=== PATIENT | female | born 1960 | race Caucasian/White ===

== ENCOUNTER 2016-09-21 13:50 | Inpatient (IN) | payer OTHER ==
[2016-09-21 16:44] VITALS: BMI 19.7
[2016-09-21 17:18] LABS: Glucose,Whole Blood 153 mg/dL (75-99)
[2016-09-21] MEDS ORDERED: INSULIN LISPRO (humaLOG) 300 UNIT/3 ML VIAL SQ SCH (17:30)
[2016-09-21] MEDS ORDERED: POLYETHYLENE GLYCOL 3350 17 GM POWD.PACK PO PRN (17:38)
[2016-09-21] MEDS ORDERED: SENNOSIDES 8.6 MG TAB PO PRN (17:38)
[2016-09-21] MEDS ORDERED: NITROGLYCERIN SL TABS 0.4 MG TAB SUBLINGUAL PRN (17:38)
[2016-09-21] MEDS ORDERED: ONDANSETRON 4 MG TAB PO PRN (17:38)
--- NOTE | 2016-09-21 17:50 | P.HPIM ---
History of Present Illness H&P Date: 09/21/16 Chief Complaint: Right foot ulcer with osteomyelitis Patient is a 56-year-old female with multiple medical problems including history of hypertension, hyperlipidemia, insulin-dependent diabetes mellitus, history of stroke with left sided hemiparesis and history of physical debility who developed an ulcer was cellulitis on her right foot on her fifth toe she was treated aggressively as outpatient by Dr. Mendez, Dr. Pappas, and Dr. Cadena however patient continued to have ulceration and suspected osteomyelitis at this time she is admitted to medical floor for IV antibiotic management and consultation was Dr. Mendez and Dr. Cadena patient may need amputation of her fifth toe on the right. Past Medical History Past Medical History: Chest Pain / Angina, Heart Failure, COPD, CVA/TIA, Diabetes Mellitus, Deep Vein Thrombosis (DVT), Eye Disorder, GERD/Reflux, Hyperlipidemia, Hypertension, Myocardial Infarction ([place]), Thyroid Disorder Additional Past Medical History / Comment(s): HX OF CVA X3 (LAST 11/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 [place] 2011. DVT RT AXILLA. RENAL FAILURE. LOW THYROID, PERIPHERAL NEUROPATHY HANDS & FEET. ANEMIA. HX OF DKA. USES W/ C. CONSTIPATION, ESOPHAGITIS. EPIGLOTITIS. HEADACHES SINCE CVA, uses a wheelchair. RETINOPATHY SHIVA EYES. HX RT TOE INFECTION, GANGRENE, HAD AMP. Last Myocardial Infarction Date:: 2011 History of Any Multi-Drug Resistant Organisms: MRSA Date of last positivie culture/infection: 02/17/2013 MDRO Source:: Right Foot Past Surgical History: Appendectomy, Section, Cholecystectomy, Heart Catheterization With Stent, Hysterectomy, Orthopedic Surgery Additional Past Surgical History / Comment(s): Amputation Rt 2ND Toe. C-S X3. EGD. Bronchoscopy. RT Arm Port Placed FOR AB RX; Removed. 6 CARDIAC STENTS. left shoulder bone removed Past Anesthesia/Blood Transfusion Reactions: No Reported Reaction Additional Past Anesthesia/Blood Transfusion Reaction / Comment(s): HX OF BLOOD TRANSFUSION- NO REACTION Date of Last Stent Placement:: July 2012 Past Psychological History: Anxiety, Bipolar, Depression Additional Psychological History / Comment(s): HER adult son lives with her. Smoking Status: Current every day smoker Past Alcohol Use History: None Reported Additional Past Alcohol Use History / Comment(s): SMOKED FOR 36 YRS. 1PPD. STARTED SMOKING AGE 18, QUIT NOVEMBER 2014, RECENTLY SMOKING. Past Drug Use History: None Reported - Past Family History Father Family Medical History: Unable to Obtain, Coronary Artery Disease (CAD), Diabetes Mellitus Mother Family Medical History: COPD Medications and Allergies Home Medications Medication Instructions Recorded Confirmed Type hydrALAZINE HCL [Apresoline] 50 mg PO TID 02/13/14 09/21/16 History Nitroglycerin Sl Tabs [Nitrostat] 0.4 mg SUBLINGUAL Q5M PRN 06/14/14 09/21/16 History Ferrous Sulfate [Feosol] 325 mg PO BID 12/07/14 09/21/16 History Lisinopril [Prinivil] 10 mg PO QAM 12/07/14 09/21/16 History Albuterol Inhaler [Ventolin Hfa 2 puff INHALATION RT-Q6H PRN 07/19/15 09/21/16 History Inhaler] Aspirin EC [Ecotrin] 81 mg PO DAILY 07/19/15 09/21/16 History Atorvastatin [Lipitor] 20 mg PO HS 07/19/15 09/21/16 History Citalopram Hydrobromide [CeleXA] 20 mg PO DAILY 07/19/15 09/21/16 History Famotidine [Pepcid] 20 mg PO BID-W/MEALS 07/19/15 09/21/16 History Insulin Lispro [humaLOG] 4 units SQ TID-W/MEALS 07/19/15 09/21/16 History Metoclopramide [Reglan] 5 mg PO AC-TID 07/19/15 09/21/16 History Valproic Acid [Depakene] 250 mg PO DAILY 07/19/15 09/21/16 History Vitamin B Complex 1 cap PO DAILY 07/19/15 09/21/16 History Budesonide-Formot 160-4.5 Mcg 2 puff INHALATION RT-BID 03/05/16 09/21/16 History [Symbicort 160-4.5 Mcg Inhaler] Ergocalciferol [Vitamin D2] 50,000 unit PO SA 03/05/16 09/21/16 History Insulin Glargine [Lantus] 15 unit SQ HS 03/05/16 09/21/16 History Ondansetron [Zofran] 4 mg PO DAILY PRN 08/28/16 09/21/16 History INSULIN LISPRO (HumaLOG) [humaLOG] See Protocol SQ TID-W/MEALS 09/07/16 History ALPRAZolam [Xanax] 0.5 mg PO TID PRN 09/21/16 09/21/16 History Ascorbic Acid [Vitamin C] 500 mg PO DAILY 09/21/16 09/21/16 History Folic Acid 0.8 mg PO DAILY 09/21/16 09/21/16 History HYDROcodone/APAP 7.5-325MG [[place] 1 tab PO TID PRN 09/21/16 09/21/16 History 7.5-325] Polyethylene Glycol 3350 [Miralax] 17 gm PO DAILY PRN 09/21/16 09/21/16 History Sennosides [Senna] 8.6 mg PO DAILY PRN 09/21/16 09/21/16 History Allergies Allergy/AdvReac Type Severity Reaction Status Date / Time Barbiturates Allergy Rash/Hives Verified 09/21/16 16:47 cephalexin monohydrate Allergy Rash/Hives Verified 09/21/16 16:47 [From Keflex] morphine Allergy Rash/Hives Verified 09/21/16 16:47 Penicillins Allergy Rash/Hives Verified 09/21/16 16:47 phenobarbital Allergy Swelling Verified 09/21/16 16:47 venom-honey bee Allergy Swelling Verified 09/21/16 16:47 [bee venom (honey bee)] amlodipine besylate AdvReac Vomiting Verified 09/21/16 16:47 [From Norvasc] Physical Exam Vitals: Intake and Output 09/21/16 09/21/16 09/21/16 06:59 14:59 22:59 Other: Weight 48.988 kg Patient Weight 09/22/16 06:59 Weight 48.988 kg In general patient is alert and oriented 3 in no apparent distress HEENT head normocephalic and atraumatic Neck is supple no JVD no goiter no lymphadenopathy Chest is clear to auscultation no crackles no wheezing Cardiac exam reveals regular heart sounds no gallops no murmurs Abdomen is soft nontender no organomegaly Extremity exam reveals mild edema with palpable peripheral pulses, there is a nonhealing ulcer on the right fifth Neurological examination reveals left side hemiparesis with spastic contraction in the left hand Results Labs: Abnormal Lab Results - Last 24 Hours (Table) 09/21/16 Range/Units 17:15 POC Glucose (mg/dL) 153 H (75-99) mg/dL Thrombosis Risk Factor Assmnt - Choose All That Apply Any of the Below Risk Factors Present?: Yes Each Factor Represents 1 point: Abnormal pulmonary function (COPD), Age 41-60 years, Medical pt on bed rest Other Risk Factors: Yes Each Risk Factor Represents 2 Points: Patient confined to bed Thrombosis Risk Factor Assessment Total Risk Factor Score: 5 Thrombosis Risk Factor Assessment Level: High Risk Assessment and Plan Plan: #1 right foot cellulitis was possible osteomyelitis with nonhealing ulcer at this time will start IV vancomycin, consultation with Dr. Mendez and Dr. Kristi Gleason initiated patient may need amputation of her right fifth toe #2 insulin-dependent diabetes mellitus at this time will check hemoglobin A1c will use insulin drip to assure good glucose control if needed #3 underlying history of hypertension well-controlled on current medications continue #4 underlying history of hyperlipidemia #5 underlying history of coronary artery disease stable at this time #6 previous history of right hemispheric stroke with left-sided hemiparesis At this time patient is admitted to medical floor started on IV vancomycin awaiting input from Dr. Mendez and Dr. Cadena
[2016-09-21] MEDS ORDERED: IV VANCOMYCIN PER PHARMACY 1 EACH MISC MISCELLANE PRN (17:51)
[2016-09-21] MEDS ORDERED: VANCOMYCIN 750 MG in SODIUM CHLORIDE 0.9% 250 ML IVPB ONE (18:30)
[2016-09-21 18:43] LABS: Basophils % (A) 1 %; CH 31.2; CHCM 31.7; Eosinophils # (A) 0.1 k/uL (0-0.7); Eosinophils % (A) 1 %; HCT 32.4 % (34.0-46.0); HDW 2.24; HGB 10.5 gm/dL (11.4-16.0); Luc # (Auto) 0.16; Luc % (Auto) 3; Lymphocytes # (A) 1.7 k/uL (1.0-4.8); Lymphocytes % (A) 29 %; MCHC 32.3 g/dL (31.0-37.0); MCV 98.9 fL (80.0-100.0); Mean Platelet Volume 7.4; Monocytes # (A) 0.4 k/uL (0-1.0); Monocytes % (A) 6 %; Neutrophils # (A) 3.4 k/uL (1.3-7.7); Neutrophils % (A) 60 %; RBC 3.28 m/uL (3.80-5.40); RDW 12.7 % (11.5-15.5); WBC 5.7 k/uL (3.8-10.6); WBC (Perox) 6.12
[2016-09-21 18:53] LABS: Calcium 9.7 mg/dL (8.4-10.2); Total Bilirubin 0.4 mg/dL (0.2-1.3); Total Protein 7.2 g/dL (6.3-8.2)
[2016-09-21 19:05] LABS: Potassium 6.4 mmol/L (3.5-5.1)
[2016-09-21] MEDS ORDERED: INSULIN REGULAR 100 UNIT/ML VIAL IV ONE (19:15)
[2016-09-21] MEDS ORDERED: SODIUM POLYSTYRENE SULFONATE 15 GM/60 ML BOTTLE PO STA (19:25)
[2016-09-21] MEDS ORDERED: DEXTROSE 50%-WATER 50 ML SYRINGE IVP STA (19:25)
[2016-09-21 19:46] LABS: Glucose,Whole Blood 497 mg/dL (75-99)
[2016-09-21 19:46] LABS: Glucose,Whole Blood 533 mg/dL (75-99)
[2016-09-21 20:46] LABS: Glucose,Whole Blood 482 mg/dL (75-99)
[2016-09-21] MEDS: ALBUTEROL NEBULIZED 2.5 MG/3 ML INHALATION PRN (21:04)
[2016-09-21] MEDS: SYMBICORT 160-4.5 MCG INHALER INHALATION SCH (21:04)
[2016-09-21] MEDS: FERROUS SULFATE 325 MG TAB PO SCH (21:48)
[2016-09-21] MEDS: ATORVASTATIN 20 MG TAB PO SCH (21:48)
[2016-09-21] MEDS: hydrALAZINE HCL 50 MG TAB PO SCH (21:48)
[2016-09-21 22:13] LABS: Hemoglobin A1C 9.6 % (4.2-6.1)
[2016-09-21 22:17] LABS: Glucose,Whole Blood 372 mg/dL (75-99)
[2016-09-21] MEDS: INSULIN REGULAR 100 UNIT in SODIUM CHLORIDE 0.9% 100 ML IV SCH (22:17)
[2016-09-21 22:52] LABS: Glucose,Whole Blood 359 mg/dL (75-99)
[2016-09-21 23:24] LABS: Glucose,Whole Blood 226 mg/dL (75-99)
[2016-09-22 00:36] LABS: Glucose,Whole Blood 73 mg/dL (75-99)
[2016-09-22 01:39] LABS: Glucose,Whole Blood 81 mg/dL (75-99)
[2016-09-22 02:51] LABS: Glucose,Whole Blood 137 mg/dL (75-99)
[2016-09-22 04:57] LABS: Glucose,Whole Blood 151 mg/dL (75-99)
[2016-09-22 06:31] LABS: Glucose,Whole Blood 134 mg/dL (75-99)
[2016-09-22] MEDS: SYMBICORT 160-4.5 MCG INHALER INHALATION SCH ×2 (07:28→20:41)
[2016-09-22] MEDS: ALBUTEROL NEBULIZED 2.5 MG/3 ML INHALATION PRN ×3 (07:28→20:41)
[2016-09-22] MEDS: LISINOPRIL 10 MG TAB PO SCH (08:00)
[2016-09-22] MEDS: FOLIC ACID 1 MG TAB PO SCH (08:00)
[2016-09-22] MEDS: hydrALAZINE HCL 50 MG TAB PO SCH ×3 (08:00→21:53)
[2016-09-22] MEDS: ASPIRIN 81 MG CHEW PO SCH (08:00)
[2016-09-22] MEDS: FAMOTIDINE 20 MG TAB PO SCH ×2 (08:00→17:27)
[2016-09-22] MEDS: ASCORBIC ACID 500 MG TAB PO SCH (08:00)
[2016-09-22] MEDS: FERROUS SULFATE 325 MG TAB PO SCH ×2 (08:00→20:37)
[2016-09-22] MEDS: CITALOPRAM HYDROBROMIDE 20 MG TAB PO SCH (08:00)
[2016-09-22] MEDS: VALPROIC ACID ORAL SOLN 250 MG/5 ML CUP PO SCH (08:00)
[2016-09-22] MEDS: METOCLOPRAMIDE 5 MG TAB PO SCH ×3 (08:01→17:27)
[2016-09-22 08:48] LABS: Glucose,Whole Blood 405 mg/dL (75-99)
[2016-09-22 08:58] LABS: Basophils % (A) 1 %; CH 30.9; CHCM 30.5; Eosinophils # (A) 0.1 k/uL (0-0.7); Eosinophils % (A) 1 %; HCT 32.8 % (34.0-46.0); HDW 2.11; Hypochromasia Slight; Luc # (Auto) 0.18; Luc % (Auto) 3; Lymphocytes # (A) 2.5 k/uL (1.0-4.8); Lymphocytes % (A) 38 %; MCH 31.1 pg (25.0-35.0); MCHC 30.5 g/dL (31.0-37.0); MCV 101.8 fL (80.0-100.0); Macrocytosis Slight; Mean Platelet Volume 7.8; Monocytes # (A) 0.3 k/uL (0-1.0); Monocytes % (A) 4 %; Neutrophils # (A) 3.5 k/uL (1.3-7.7); Neutrophils % (A) 54 %; RBC 3.22 m/uL (3.80-5.40); RDW 12.8 % (11.5-15.5); WBC 6.6 k/uL (3.8-10.6); WBC (Perox) 6.87
[2016-09-22 09:43] LABS: Glucose,Whole Blood 354 mg/dL (75-99)
[2016-09-22 09:45] LABS: ALT 27 U/L (9-52); AST 13 U/L (14-36); Alkaline Phosphatase 66 U/L (38-126); Anion Gap 8 mmol/L; Blood Urea Nitrogen 29 mg/dL (7-17); Calcium 9.1 mg/dL (8.4-10.2); Carbon Dioxide 22 mmol/L (22-30); Chloride 109 mmol/L (98-107); Glucose 349 mg/dL (74-99); Non-African American GFR(MDRD) 56 (>60 ml/min/1.73 sqM); Potassium 5.3 mmol/L (3.5-5.1); Sodium 139 mmol/L (137-145); Total Bilirubin 0.5 mg/dL (0.2-1.3); Total Protein 6.7 g/dL (6.3-8.2)
[2016-09-22 10:38] LABS: Glucose,Whole Blood 263 mg/dL (75-99)
[2016-09-22] MEDS ORDERED: VANCOMYCIN 750 MG in SODIUM CHLORIDE 0.9% 250 ML IVPB SCH ×2 (11:00→18:00)
[2016-09-22] MEDS ORDERED: IV FLUID CONTINUATION 1,000 ML IV ONE (11:02)
[2016-09-22 11:12] LABS: Glucose,Whole Blood 170 mg/dL (75-99)
[2016-09-22] MEDS ORDERED: ONDANSETRON 4 MG/2 ML VIAL IVP ONE (11:30)
[2016-09-22] MEDS ORDERED: fentaNYL (PF) 50 MCG/ML 2 ML AMP ONE (11:56)
[2016-09-22] MEDS ORDERED: PROPOFOL 10 MG/ML 20 ML VIAL IV ONE (11:56)
[2016-09-22] MEDS ORDERED: MIDAZOLAM 2 MG/2 ML VIAL ONE (11:56)
[2016-09-22 12:25] LABS: Glucose,Whole Blood 104 mg/dL (75-99)
[2016-09-22] MEDS ORDERED: SODIUM CHLORIDE 0.9% 50 ML with CLINDAMYCIN 900 MG IV ONE ×2 (12:26)
--- NOTE | 2016-09-22 13:19 | P.CONS ---
History of Present Illness - Reason for Consult Consult date: 09/22/16 Foot infection - History of Present Illness 56-year-old female with history of multiple medical troubles includes hypertension and diabetes mellitus type 2 is a history of extensive stroke with left-sided hemiparesis and remains under the care of family members and an aide for her ongoing care. She is not able to toilet herself. She has been a patient at the [facility] center and was last seen by Dr. Cadena. There was plan for amputation which was apparently scheduled for September 16 but because patient's blood sugar was 360, this was canceled. Patient has had ongoing problems with her right foot ulcer that is nonhealing and has been admitted to the hospital and started on vancomycin. Lab work showed a potassium of 6.4, BUN 35 and creatinine 1.2. Patient did receive dose of Kayexalate. White count was 5.7. Blood sugars were again elevated and as high as 497, currently 104. Patient has consult in place with Dr. Cadena with anticipation of amputation on this hospitalization. Patient is complaining of burning with urination for which a urinalysis and urine culture will be obtained. Review of Systems All systems: negative Constitutional: Denies chills, Denies fever Eyes: denies blurred vision, denies pain Ears, nose, mouth and throat: Denies headache, Denies sore throat Cardiovascular: Denies chest pain, Denies shortness of breath Respiratory: Denies cough Gastrointestinal: Denies abdominal pain, Denies diarrhea, Denies nausea, Denies vomiting Genitourinary: Reports dysuria, Denies hematuria Musculoskeletal: Denies myalgias Integumentary: Denies pruritus, Denies rash Neurological: Denies numbness, Denies weakness Psychiatric: Denies anxiety, Denies depression Endocrine: Denies fatigue, Denies weight change Past Medical History Past Medical History: Chest Pain / Angina, Heart Failure, COPD, CVA/TIA, Diabetes Mellitus, Deep Vein Thrombosis (DVT), Eye Disorder, GERD/Reflux, Hyperlipidemia, Hypertension, Myocardial Infarction ([place]), Thyroid Disorder Additional Past Medical History / Comment(s): HX OF CVA X3 (LAST 11/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 [place] 2011. DVT RT AXILLA. RENAL FAILURE. LOW THYROID, PERIPHERAL NEUROPATHY HANDS & FEET. ANEMIA. HX OF DKA. USES W/ C. CONSTIPATION, ESOPHAGITIS. EPIGLOTITIS. HEADACHES SINCE CVA, uses a wheelchair. RETINOPATHY SHIVA EYES. HX RT TOE INFECTION, GANGRENE, HAD AMP. Last Myocardial Infarction Date:: 2011 History of Any Multi-Drug Resistant Organisms: MRSA Year Discovered:: 02/17/2013 MDRO Source:: Right Foot Past Surgical History: Appendectomy, Section, Cholecystectomy, Heart Catheterization With Stent, Hysterectomy, Orthopedic Surgery Additional Past Surgical History / Comment(s): Amputation Rt 2ND Toe. C-S X3. EGD. Bronchoscopy. RT Arm Port Placed FOR AB RX; Removed. 6 CARDIAC STENTS. left shoulder bone removed Past Anesthesia/Blood Transfusion Reactions: No Reported Reaction Additional Past Anesthesia/Blood Transfusion Reaction / Comm: HX OF BLOOD TRANSFUSION- NO REACTION Date of Last Stent Placement:: July 2012 Past Psychological History: Anxiety, Bipolar, Depression Additional Psychological History / Comment(s): HER adult son lives with her. Smoking Status: Current every day smoker Past Alcohol Use History: None Reported Additional Past Alcohol Use History / Comment(s): SMOKED FOR 36 YRS. 1PPD. STARTED SMOKING AGE 18, QUIT NOVEMBER 2014, RECENTLY SMOKING. Past Drug Use History: None Reported - Past Family History Father Family Medical History: Unable to Obtain, Coronary Artery Disease (CAD), Diabetes Mellitus Mother Family Medical History: COPD Medications and Allergies Home Medications Medication Instructions Recorded Confirmed Type hydrALAZINE HCL [Apresoline] 50 mg PO TID 02/13/14 09/21/16 History Nitroglycerin Sl Tabs [Nitrostat] 0.4 mg SUBLINGUAL Q5M PRN 06/14/14 09/21/16 History Ferrous Sulfate [Feosol] 325 mg PO BID 12/07/14 09/21/16 History Lisinopril [Prinivil] 10 mg PO QAM 12/07/14 09/21/16 History Albuterol Inhaler [Ventolin Hfa 2 puff INHALATION RT-Q6H PRN 07/19/15 09/21/16 History Inhaler] Aspirin EC [Ecotrin] 81 mg PO DAILY 07/19/15 09/21/16 History Atorvastatin [Lipitor] 20 mg PO HS 07/19/15 09/21/16 History Citalopram Hydrobromide [CeleXA] 20 mg PO DAILY 07/19/15 09/21/16 History Famotidine [Pepcid] 20 mg PO BID-W/MEALS 07/19/15 09/21/16 History Insulin Lispro [humaLOG] 4 units SQ TID-W/MEALS 07/19/15 09/21/16 History Metoclopramide [Reglan] 5 mg PO AC-TID 07/19/15 09/21/16 History Valproic Acid [Depakene] 250 mg PO DAILY 07/19/15 09/21/16 History Vitamin B Complex 1 cap PO DAILY 07/19/15 09/21/16 History Budesonide-Formot 160-4.5 Mcg 2 puff INHALATION RT-BID 03/05/16 09/21/16 History [Symbicort 160-4.5 Mcg Inhaler] Ergocalciferol [Vitamin D2] 50,000 unit PO SA 03/05/16 09/21/16 History Insulin Glargine [Lantus] 15 unit SQ HS 03/05/16 09/21/16 History Ondansetron [Zofran] 4 mg PO DAILY PRN 08/28/16 09/21/16 History INSULIN LISPRO (HumaLOG) [humaLOG] See Protocol SQ TID-W/MEALS 09/07/16 History ALPRAZolam [Xanax] 0.5 mg PO TID PRN 09/21/16 09/21/16 History Ascorbic Acid [Vitamin C] 500 mg PO DAILY 09/21/16 09/21/16 History Folic Acid 0.8 mg PO DAILY 09/21/16 09/21/16 History HYDROcodone/APAP 7.5-325MG [[place] 1 tab PO TID PRN 09/21/16 09/21/16 History 7.5-325] Polyethylene Glycol 3350 [Miralax] 17 gm PO DAILY PRN 09/21/16 09/21/16 History Sennosides [Senna] 8.6 mg PO DAILY PRN 09/21/16 09/21/16 History Allergies Allergy/AdvReac Type Severity Reaction Status Date / Time Barbiturates Allergy Rash/Hives Verified 09/21/16 16:47 cephalexin monohydrate Allergy Rash/Hives Verified 09/21/16 16:47 [From Keflex] morphine Allergy Rash/Hives Verified 09/21/16 16:47 Penicillins Allergy Rash/Hives Verified 09/21/16 16:47 phenobarbital Allergy Swelling Verified 09/21/16 16:47 venom-honey bee Allergy Swelling Verified 09/21/16 16:47 [bee venom (honey bee)] amlodipine besylate AdvReac Vomiting Verified 09/21/16 16:47 [From [facility]] Physical Exam Vitals: Vital Signs Temp Pulse Pulse Pulse Resp BP Pulse Ox 09/22/16 07:38 78 09/22/16 07:28 78 09/22/16 07:00 98.2 F 82 14 153/80 96 09/21/16 23:00 99.1 F 71 14 114/64 93 L 09/21/16 21:47 80 129/74 09/21/16 21:13 88 09/21/16 21:05 84 09/21/16 18:40 99.1 F 77 16 135/66 98 Intake and Output 09/21/16 09/22/16 09/22/16 22:59 06:59 14:59 Intake Total 14.567 18.633 Balance 14.567 18.633 Intake: Intake, IV Titration 14.567 18.633 Amount Insulin Regular 100 unit 14.567 18.633 In Sodium Chloride 0.9% 100 ml @ Titrate IV .[facility]M [facility] Rx#:[id number] Other: Voiding Method Diaper Incontinent # Voids 3 3 # Bowel Movements 2 Weight 48.988 kg Gen: This is a 56-year-old female. She is sitting up in bed and appears to be in no acute distress. HEENT: Head is atraumatic, normocephalic. Pupils equal, round. Sclerae is anicteric. Conjunctiva pink. Mucous membranes of the mouth are slightly dry. No thrush. Poor dentition. NECK: Supple. No JVD. No lymphadenopathy. No thyromegaly. LUNGS: Clear to auscultation. No wheezes or rhonchi. No intercostal retractions. HEART: Regular rate and rhythm. No murmur. ABDOMEN: Soft. Bowel sounds are present. No masses. No tenderness. EXTREMITIES: No pedal edema. No calf tenderness. Dorsalis pedis +2 bilaterally. Ulceration right foot. NEUROLOGICAL: Patient is awake, alert and oriented x3. Noted difficulty with speech but easy to understand. Results Results: Laboratory Results WBC 6.6 k/uL (3.8-10.6) 09/22/16 08:22 RBC 3.22 m/uL (3.80-5.40) L 09/22/16 08:22 Hgb 10.0 gm/dL (11.4-16.0) L 09/22/16 08:22 Hct 32.8 % (34.0-46.0) L 09/22/16 08:22 MCV 101.8 fL (80.0-100.0) H 09/22/16 08:22 MCH 31.1 pg (25.0-35.0) 09/22/16 08: MCHC 30.5 g/dL (31.0-37.0) L 09/22/16 08:22 RDW 12.8 % (11.5-15.5) 09/22/16 08:22 Plt Count 207 k/uL (150-450) 09/22/16 08:22 Neutrophils % 54 % 09/22/16 08:22 Lymphocytes % 38 % 09/22/16 08:22 Monocytes % 4 % 09/22/16 08:22 Eosinophils % 1 % 09/22/16 08:22 Basophils % 1 % 09/22/16 08:22 Neutrophils # 3.5 k/uL (1.3-7.7) 09/22/16 08:22 Lymphocytes # 2.5 k/uL (1.0-4.8) 09/22/16 08:22 Monocytes # 0.3 k/uL (0-1.0) 09/22/16 08:22 Eosinophils # 0.1 k/uL (0-0.7) 09/22/16 08:22 Basophils # 0.0 k/uL (0-0.2) 09/22/16 08:22 Hypochromasia Slight 09/22/16 08:22 Macrocytosis Slight 09/22/16 08:22 Sodium 139 mmol/L (137-145) 09/22/16 08:22 Potassium 5.3 mmol/L (3.5-5.1) H 09/22/16 08:22 Chloride 109 mmol/L (98-107) H 09/22/16 08:22 Carbon Dioxide 22 mmol/L (22-30) 09/22/16 08:22 Anion Gap 8 mmol/L 09/22/16 08:22 BUN 29 mg/dL (7-17) H 09/22/16 08:22 Creatinine 1.02 mg/dL (0.52-1.04) 09/22/16 08:22 Est GFR (MDRD) Af Amer >60 (>60 ml/min/1.73 sqM) 09/22/16 08:22 Est GFR (MDRD) Non-Af 56 (>60 ml/min/1.73 sqM) 09/22/16 08:22 Glucose 349 mg/dL (74-99) H 09/22/16 08:22 POC Glucose (mg/dL) 104 mg/dL (75-99) H 09/22/16 12:20 POC Glu Maintenance Pipefitter ALEX Aide Blank 09/22/16 12:[address] Glu mg/dL 229 mg/dL 09/21/16 18:12 Hemoglobin A1c 9.6 % (4.2-6.1) H 09/21/16 18:12 Calcium 9.1 mg/dL (8.4-10.2) 09/22/16 08:22 Total Bilirubin 0.5 mg/dL (0.2-1.3) 09/22/16 08:22 AST 13 U/L (14-36) L 09/22/16 08:22 ALT 27 U/L (9-52) 09/22/16 08:22 Alkaline Phosphatase 66 U/L (38-126) 09/22/16 08:22 Total Protein 6.7 g/dL (6.3-8.2) 09/22/16 08:22 Albumin 3.6 g/dL (3.5-5.0) 09/22/16 08:22 CBC & Chem 7: 09/22/16 08:22 09/22/16 08:22 Labs: Abnormal Lab Results - Last 24 Hours (Table) 09/21/16 09/21/16 09/21/16 Range/Units 17:15 18:12 18:12 RBC 3.28 L (3.80-5.40) m/uL Hgb 10.5 L (11.4-16.0) gm/dL Hct 32.4 L (34.0-46.0) % Potassium 6.4 H* (3.5-5.1) mmol/L Chloride 108 H (98-107) mmol/L BUN 35 H (7-17) mg/dL Creatinine 1.20 H (0.52-1.04) mg/dL Glucose 286 H (74-99) mg/dL POC Glucose (mg/dL) 153 H (75-99) mg/dL Hemoglobin A1c (4.2-6.1) % 09/21/16 09/21/16 09/21/16 Range/Units 18:12 19:43 19:45 RBC (3.80-5.40) m/uL Hgb (11.4-16.0) gm/dL Hct (34.0-46.0) % Potassium (3.5-5.1) mmol/L Chloride (98-107) mmol/L BUN (7-17) mg/dL Creatinine (0.52-1.04) mg/dL Glucose (74-99) mg/dL POC Glucose (mg/dL) 533 H 497 H (75-99) mg/dL Hemoglobin A1c 9.6 H (4.2-6.1) % 09/21/16 09/21/16 09/21/16 Range/Units 20:44 22:16 22:50 RBC (3.80-5.40) m/uL Hgb (11.4-16.0) gm/dL Hct (34.0-46.0) % Potassium (3.5-5.1) mmol/L Chloride (98-107) mmol/L BUN (7-17) mg/dL Creatinine (0.52-1.04) mg/dL Glucose (74-99) mg/dL POC Glucose (mg/dL) 482 H 372 H 359 H (75-99) mg/dL Hemoglobin A1c (4.2-6.1) % 09/21/16 09/22/16 09/22/16 Range/Units 23:23 00:35 02:39 RBC (3.80-5.40) m/uL Hgb (11.4-16.0) gm/dL Hct (34.0-46.0) % Potassium (3.5-5.1) mmol/L Chloride (98-107) mmol/L BUN (7-17) mg/dL Creatinine (0.52-1.04) mg/dL Glucose (74-99) mg/dL POC Glucose (mg/dL) 226 H 73 L 137 H (75-99) mg/dL Hemoglobin A1c (4.2-6.1) % 09/22/16 09/22/16 Range/Units 04:45 06:27 RBC (3.80-5.40) m/uL Hgb (11.4-16.0) gm/dL Hct (34.0-46.0) % Potassium (3.5-5.1) mmol/L Chloride (98-107) mmol/L BUN (7-17) mg/dL Creatinine (0.52-1.04) mg/dL Glucose (74-99) mg/dL POC Glucose (mg/dL) 151 H 134 H (75-99) mg/dL Hemoglobin A1c (4.2-6.1) % Assessment and Plan Plan: This is a 56-year-old female with had a nonhealing diabetic ulcer to the right foot with uncontrolled blood sugars and hemoglobin A1c of 9.6. Patient is currently on vancomycin which will be continued. Dr. Cadena is on consult for amputation. Continue supportive care. Further recommendations as patient progresses. The above dictated assessment and findings were discussed with Dr. Mendez. The impression and plan of care have been directed as dictated. Lois Gibbs nurse practitioner acting as scribe for Dr. Mendez.
[2016-09-22 13:30] LABS: Glucose,Whole Blood 105 mg/dL (75-99)
[2016-09-22] MEDS: B COMPLEX-VIT C-VIT E-ZINC 1 EACH TAB PO SCH (14:09)
--- NOTE | 2016-09-22 14:22 | P.CON ---
Consult Note - . Consult date: 09/22/16 Assessment/Plan:: This 56-year-old woman has a and exposed bone in the fifth toe right foot. This is a nonhealing ulcer with osteomyelitis. Please refer to consultation an [facility] from [facility]. We discussed with the patient in detail options for therapy. She wishes to proceed with amputation of the fifth toe right foot.
--- NOTE | 2016-09-22 14:25 | P.PCN ---
Date of Procedure: 09/22/16 Preoperative Diagnosis: [place] grade 3 ulceration right fifth toe secondary to bone exposure. Postoperative Diagnosis: Same Procedure(s) Performed: Amputation of the right fifth toe through proximal phalanx Anesthesia: MAC Surgeon: Himanshu Cadena Estimated Blood Loss (ml): 25 Pathology: none sent Condition: stable Disposition: PACU Indications for Procedure: Patient has had a refractory ulcer on the medial right great toe. She has bone of the distal portion of the proximal phalanx exposed. Operative Findings: The proximal tissues appeared healthy. The area of infection of the bone was very isolated to the area of the ulceration. Description of Procedure: With the patient supine position, under benefit of IV sedation, we prepped and draped in standard fashion. We made an incision leaving a large lateral flap and excising the bony portion of the right fifth toe staying close to the bone on the lateral aspect. The middle and distal phalanx were removed by excision. The proximal phalanx was removed except for its proximal head using a rongeur. There was good bleeding from the edges. Hemostasis was accomplished with pressure. The wound was irrigated and closed with interrupted nylon. Sterile dressings were applied. The patient tolerated the procedure well.
[2016-09-22 15:01] LABS: Glucose,Whole Blood 360 mg/dL (75-99)
[2016-09-22 16:58] LABS: Glucose,Whole Blood 337 mg/dL (75-99)
[2016-09-22] MEDS: HYDROcodone/APAP 7.5-325MG 1 EACH TAB PO PRN (17:26)
[2016-09-22] MEDS: INSULIN REGULAR 100 UNIT in SODIUM CHLORIDE 0.9% 100 ML IV SCH (17:27)
--- NOTE | 2016-09-22 18:00 | P.PN ---
Subjective Principal diagnosis: right fifth toe osteomyelitis patient is a 56-year-old female was known history of insulin-dependent diabetes mellitus and previous history of stroke with left sided sidney-paresis who was admitted to [facility] due to right foot cellulitis with evidence of osteomyelitis on the right fifth toe patient was evaluated by Dr. Cadena and underwent amputation of the right fifth toe is maintained on IV antibiotic vancomycin consultation for Dr. Mendez was also initiated. Patient has insulin-dependent diabetes mellitus her glucose was not well controlled currently she is maintained on insulin drip Clinically patient is doing better she is complaining of mild pain in her right foot otherwise she denies any complaints Objective - Vital Signs Vital signs: Vital Signs Temp 99.4 F 09/22/16 12:34 Pulse 68 09/22/16 16:46 Resp 16 09/22/16 13:34 BP 135/66 09/22/16 13:34 Pulse Ox 100 09/22/16 13:34 Intake & Output 09/21/16 09/22/16 09/22/16 18:59 06:59 18:59 Intake Total 33.200 565.50 Output Total 27 Balance 33.200 538.50 Weight 48.988 kg 48.988 kg Intake: IV 506 Intake, IV Titration 33.200 59.50 Amount Insulin Regular 100 unit 33.200 59.50 In Sodium Chloride 0.9% 100 ml @ Titrate IV .Q0M [facility] Rx#:[id number] Output: Urine 2 Estimated Blood Loss 25 Other: Voiding Method Diaper Diaper Incontinent Incontinent # Voids 3 # Bowel Movements 2 2 - Exam in general patient is alert and oriented in no apparent distress HEENT head normocephalic and atraumatic Neck is supple no JVD no goiter no lymphadenopathy Chest is clear to auscultation no wheezing Cardiac exam reveals regular heart sounds no murmurs Abdomen is soft nontender no organomegaly Extremity exam reveals minimal edema - Labs CBC & Chem 7: 09/22/16 08:22 09/22/16 08:22 Labs: Abnormal Lab Results - Last 24 Hours (Table) 09/21/16 09/21/16 09/21/16 Range/Units 18:12 18:12 18:12 RBC 3.28 L (3.80-5.40) m/uL Hgb 10.5 L (11.4-16.0) gm/dL Hct 32.4 L (34.0-46.0) % MCV (80.0-100.0) fL MCHC (31.0-37.0) g/dL Potassium 6.4 H* (3.5-5.1) mmol/L Chloride 108 H (98-107) mmol/L BUN 35 H (7-17) mg/dL Creatinine 1.20 H (0.52-1.04) mg/dL Glucose 286 H (74-99) mg/dL POC Glucose (mg/dL) (75-99) mg/dL Hemoglobin A1c 9.6 H (4.2-6.1) % AST (14-36) U/L 09/21/16 09/21/16 09/21/16 Range/Units 19:43 19:45 20:44 RBC (3.80-5.40) m/uL Hgb (11.4-16.0) gm/dL Hct (34.0-46.0) % MCV (80.0-100.0) fL MCHC (31.0-37.0) g/dL Potassium (3.5-5.1) mmol/L Chloride (98-107) mmol/L BUN (7-17) mg/dL Creatinine (0.52-1.04) mg/dL Glucose (74-99) mg/dL POC Glucose (mg/dL) 533 H 497 H 482 H (75-99) mg/dL Hemoglobin A1c (4.2-6.1) % AST (14-36) U/L 09/21/16 09/21/16 09/21/16 Range/Units 22:16 22:50 23:23 RBC (3.80-5.40) m/uL Hgb (11.4-16.0) gm/dL Hct (34.0-46.0) % MCV (80.0-100.0) fL MCHC (31.0-37.0) g/dL Potassium (3.5-5.1) mmol/L Chloride (98-107) mmol/L BUN (7-17) mg/dL Creatinine (0.52-1.04) mg/dL Glucose (74-99) mg/dL POC Glucose (mg/dL) 372 H 359 H 226 H (75-99) mg/dL Hemoglobin A1c (4.2-6.1) % AST (14-36) U/L 09/22/16 09/22/16 09/22/16 Range/Units 00:35 02:39 04:45 RBC (3.80-5.40) m/uL Hgb (11.4-16.0) gm/dL Hct (34.0-46.0) % MCV (80.0-100.0) fL MCHC (31.0-37.0) g/dL Potassium (3.5-5.1) mmol/L Chloride (98-107) mmol/L BUN (7-17) mg/dL Creatinine (0.52-1.04) mg/dL Glucose (74-99) mg/dL POC Glucose (mg/dL) 73 L 137 H 151 H (75-99) mg/dL Hemoglobin A1c (4.2-6.1) % AST (14-36) U/L 09/22/16 09/22/16 09/22/16 Range/Units 06:27 08:22 08:22 RBC 3.22 L (3.80-5.40) m/uL Hgb 10.0 L (11.4-16.0) gm/dL Hct 32.8 L (34.0-46.0) % MCV 101.8 H (80.0-100.0) fL MCHC 30.5 L (31.0-37.0) g/dL Potassium 5.3 H (3.5-5.1) mmol/L Chloride 109 H (98-107) mmol/L BUN 29 H (7-17) mg/dL Creatinine (0.52-1.04) mg/dL Glucose 349 H (74-99) mg/dL POC Glucose (mg/dL) 134 H (75-99) mg/dL Hemoglobin A1c (4.2-6.1) % AST 13 L (14-36) U/L 09/22/16 09/22/16 09/22/16 Range/Units 08:46 09:40 10:28 RBC (3.80-5.40) m/uL Hgb (11.4-16.0) gm/dL Hct (34.0-46.0) % MCV (80.0-100.0) fL MCHC (31.0-37.0) g/dL Potassium (3.5-5.1) mmol/L Chloride (98-107) mmol/L BUN (7-17) mg/dL Creatinine (0.52-1.04) mg/dL Glucose (74-99) mg/dL POC Glucose (mg/dL) 405 H 354 H 263 H (75-99) mg/dL Hemoglobin A1c (4.2-6.1) % AST (14-36) U/L 09/22/16 09/22/16 09/22/16 Range/Units 11:11 12:20 13:27 RBC (3.80-5.40) m/uL Hgb (11.4-16.0) gm/dL Hct (34.0-46.0) % MCV (80.0-100.0) fL MCHC (31.0-37.0) g/dL Potassium (3.5-5.1) mmol/L Chloride (98-107) mmol/L BUN (7-17) mg/dL Creatinine (0.52-1.04) mg/dL Glucose (74-99) mg/dL POC Glucose (mg/dL) 170 H 104 H 105 H (75-99) mg/dL Hemoglobin A1c (4.2-6.1) % AST (14-36) U/L 09/22/16 09/22/16 Range/Units 14:57 16:51 RBC (3.80-5.40) m/uL Hgb (11.4-16.0) gm/dL Hct (34.0-46.0) % MCV (80.0-100.0) fL MCHC (31.0-37.0) g/dL Potassium (3.5-5.1) mmol/L Chloride (98-107) mmol/L BUN (7-17) mg/dL Creatinine (0.52-1.04) mg/dL Glucose (74-99) mg/dL POC Glucose (mg/dL) 360 H 337 H (75-99) mg/dL Hemoglobin A1c (4.2-6.1) % AST (14-36) U/L Assessment and Plan Plan: #1 right foot cellulitis was possible osteomyelitis with nonhealing ulcer at this time will start IV vancomycin, consultation with Dr. Mendez initiated patient status post amputation of her right fifth toeby Dr. Cadena #2 insulin-dependent diabetes mellitus at this time will check hemoglobin A1c will use insulin drip to assure good glucose control if needed #3 underlying history of hypertension well-controlled on current medications continue #4 underlying history of hyperlipidemia #5 underlying history of coronary artery disease stable at this time #6 previous history of right hemispheric stroke with left-sided hemiparesis At this time patient is admitted to medical floor started on IV vancomycin awaiting input from Dr. Mendez and Dr. Cadena
[2016-09-22 19:40] LABS: Glucose,Whole Blood 279 mg/dL (75-99)
[2016-09-22] MEDS: ATORVASTATIN 20 MG TAB PO SCH (20:36)
[2016-09-22 21:10] LABS: Glucose,Whole Blood 340 mg/dL (75-99)
--- NOTE | 2016-09-22 22:17 | P.CON ---
Consult Note - . Consult date: 09/22/16 Assessment/Plan:: 56-year-old female with history of multiple medical troubles includes hypertension and diabetes mellitus type 2 is a history of extensive stroke with left-sided hemiparesis and remains under the care of family members and an aide for her ongoing care. She is not able to toilet herself. She has been a patient at the wound healing center and was last seen by Dr. Cadena. There was plan for amputation which was apparently scheduled for September 16 but because patient's blood sugar was 360, this was canceled. Patient has had ongoing problems with her right foot ulcer that is nonhealing and has been admitted to the hospital and started on vancomycin. Lab work showed a potassium of 6.4, BUN 35 and creatinine 1.2. Patient did receive dose of Kayexalate. White count was 5.7. Blood sugars were again elevated and as high as 497, currently 104. Patient has consult in place with Dr. Cadena with anticipation of amputation on this hospitalization. Patient is complaining of burning with urination for which a urinalysis and urine culture will be obtained. Please see the consult note is dictated by nurse practitioner Mrs. Lois Gibbs. Patient is on insulin drip to help with her elevated glucose. Patient is instructed the importance of glucose control. The fifth toe amputation will result in a wound that will require healing. Fortune she has stopped smoking which will be helpful. The without excellent glucose control she will be at risk for worsening of this infectious process. The patient is aware. Currently on antibiotic therapy. Cultures are pending. Continue vancomycin for now. Pain control was initiated postoperative and small doses of morphine will be given at this time. Continue supportive care. We'll follow. I agree with evaluation, assessment and plan as dictated by nurse practitioner Mrs. Lois Gibbs.
[2016-09-22 23:12] LABS: Glucose,Whole Blood 332 mg/dL (75-99)
[2016-09-22] MEDS: HYDROmorphone 1 MG/ML 1 ML SYRINGE IVP PRN (23:25)
[2016-09-23] MEDS ORDERED: VANCOMYCIN 750 MG in SODIUM CHLORIDE 0.9% 250 ML IVPB SCH ×2
[2016-09-23 01:15] LABS: Glucose,Whole Blood 149 mg/dL (75-99)
[2016-09-23 03:42] LABS: Glucose,Whole Blood 196 mg/dL (75-99)
[2016-09-23 05:04] LABS: Appearance,Urine Clear (Clear); Bilirubin,Urine Negative (Negative); Glucose,Urine (UA) 3+ (Negative); Ketones,Urine Negative (Negative); Leukocyte Esterase,Urine Negative (Negative); Nitrite,Urine Negative (Negative); Protein,Urine Negative (Negative); Specific Gravity,Urine 1.013 (1.001-1.035); UA Billing (MACRO vs. MICRO) CHEM; Urobilinogen,Urine <2.0 mg/dL (<2.0)
[2016-09-23 05:27] LABS: Glucose,Whole Blood 351 mg/dL (75-99)
[2016-09-23 07:36] LABS: Glucose,Whole Blood 328 mg/dL (75-99)
[2016-09-23] MEDS: ALBUTEROL NEBULIZED 2.5 MG/3 ML INHALATION PRN ×3 (08:32→20:29)
[2016-09-23] MEDS: SYMBICORT 160-4.5 MCG INHALER INHALATION SCH ×2 (08:33→20:29)
[2016-09-23] MEDS: FERROUS SULFATE 325 MG TAB PO SCH ×2 (08:48→21:59)
[2016-09-23] MEDS: FAMOTIDINE 20 MG TAB PO SCH ×2 (08:48→17:44)
[2016-09-23] MEDS: VALPROIC ACID ORAL SOLN 250 MG/5 ML CUP PO SCH (08:48)
[2016-09-23] MEDS: LISINOPRIL 10 MG TAB PO SCH (08:48)
[2016-09-23] MEDS: CITALOPRAM HYDROBROMIDE 20 MG TAB PO SCH (08:48)
[2016-09-23] MEDS: FOLIC ACID 1 MG TAB PO SCH (08:48)
[2016-09-23] MEDS: hydrALAZINE HCL 50 MG TAB PO SCH ×3 (08:48→21:59)
[2016-09-23] MEDS: ASPIRIN 81 MG CHEW PO SCH (08:49)
[2016-09-23] MEDS: METOCLOPRAMIDE 5 MG TAB PO SCH ×3 (08:49→17:45)
[2016-09-23] MEDS: ASCORBIC ACID 500 MG TAB PO SCH (08:49)
[2016-09-23] MEDS ORDERED: VANCOMYCIN 750 MG in SODIUM CHLORIDE 0.9% 250 ML IVPB ONE (09:00)
[2016-09-23 09:01] LABS: Glucose,Whole Blood 152 mg/dL (75-99)
--- NOTE | 2016-09-23 09:31 | P.PN ---
<Higinio Parks T - Last Filed: 09/23/16 09:24> Progress Note - Text Vascular Surgery Nursing POD: #2, amputation of the right fifth toe through proximal phalanx. Patient awake and alert, no distress noted, no specific complaints. Vital Signs: Afebrile, T-max 99.4F Vital Signs - 24 hr 09/22/16 09/22/16 09/22/16 11:18 12:34 12:49 Temperature 98.5 F 99.4 F Pulse Rate Pulse Rate [ 93 Pulse Oximetery ] Pulse Rate [ 80 69 68 Right] Respiratory 16 12 16 Rate Blood Pressure 136/60 95/52 112/58 [Left Arm Supine] Blood Pressure [Right Arm] O2 Sat by Pulse 97 93 L 98 Oximetry 09/22/16 09/22/16 09/22/16 13:04 13:19 13:34 Temperature Pulse Rate Pulse Rate [ Pulse Oximetery ] Pulse Rate [ 66 68 64 Right] Respiratory 16 16 16 Rate Blood Pressure 120/70 123/62 135/66 [Left Arm Supine] Blood Pressure [Right Arm] O2 Sat by Pulse 99 100 100 Oximetry 09/22/16 09/22/16 09/22/16 16:31 16:46 20:33 Temperature Pulse Rate 68 68 80 Pulse Rate [ Pulse Oximetery ] Pulse Rate [ Right] Respiratory Rate Blood Pressure [Left Arm Supine] Blood Pressure [Right Arm] O2 Sat by Pulse Oximetry 09/22/16 09/22/16 09/23/16 20:44 23:00 03:46 Temperature 98.8 F Pulse Rate 80 Pulse Rate [ Pulse Oximetery ] Pulse Rate [ 76 Right] Respiratory 14 Rate Blood Pressure 93/53 111/63 [Left Arm Supine] Blood Pressure [Right Arm] O2 Sat by Pulse 95 Oximetry 09/23/16 09/23/16 09/23/16 07:00 08:33 08:49 Temperature 97.6 F Pulse Rate 72 74 Pulse Rate [ 80 Pulse Oximetery ] Pulse Rate [ Right] Respiratory 20 Rate Blood Pressure [Left Arm Supine] Blood Pressure 128/76 [Right Arm] O2 Sat by Pulse 96 Oximetry Labs: BMP 09/22/16 08:22 Sodium 139 Potassium 5.3 H Chloride 109 H Carbon Dioxide 22 BUN 29 H Creatinine 1.02 Glucose 349 H Calcium 9.1 Liver Function 09/22/16 Range/Units 08:22 Total Bilirubin 0.5 (0.2-1.3) mg/dL AST 13 L (14-36) U/L ALT 27 (9-52) U/L Alkaline Phosphatase 66 (38-126) U/L Albumin 3.6 (3.5-5.0) g/dL Urine 09/23/16 Range/Units 03:30 Urine Color Yellow Urine Appearance Clear (Clear) Urine pH 5.0 (5.0-8.0) Ur Specific Winter 1.013 (1.001-1.035) Urine Protein Negative (Negative) Urine Glucose (UA) 3+ H (Negative) IV Fluids: Insulin drip at 8 units per hour Right foot wound dressing is dry and intact CBGs: 152-328 mg/dL Intake & Output 09/21/16 09/22/16 09/23/16 09/24/16 06:59 06:59 06:59 06:59 Intake Total 33.200 686.901 17.4 Output Total 27 Balance 33.200 659.901 17.4 Weight 48.988 kg 48.988 kg Active Medications Hydrocodone Bitart/Acetaminophen (Wrens 7.5-325) 1 each PO TID PRN PRN Reason: Pain Last Admin: 09/22/16 17:26 Dose: 1 each Albuterol Sulfate (Ventolin Nebulized) 2.5 mg INHALATION RT-Q6H PRN PRN Reason: Shortness Of Breath Last Admin: 09/23/16 08:32 Dose: 2.5 mg Alprazolam (Xanax) 0.5 mg PO TID PRN PRN Reason: Anxiety Ascorbic Acid (Vitamin C) 500 mg PO DAILY [facility] Last Admin: 09/23/16 08:49 Dose: 500 mg Aspirin (Aspirin) 81 mg PO DAILY [facility] Last Admin: 09/23/16 08:49 Dose: 81 mg Atorvastatin Calcium (Lipitor) 20 mg PO HS [facility] Last Admin: 09/22/16 20:36 Dose: 20 mg Budesonide/Formoterol Fumarate (Symbicort 160-4.5 Mcg Inhaler) 2 puff INHALATION RT-BID [facility] Last Admin: 09/23/16 08:33 Dose: 2 puff Citalopram Hydrobromide (Celexa) 20 mg PO DAILY [facility] Last Admin: 04/26/17 08:48 Dose: 20 mg Famotidine (Pepcid) 20 mg PO BID-W/MEALS [facility] Last Admin: 09/23/16 08:48 Dose: 20 mg Ferrous Sulfate (Feosol) 325 mg PO BID [facility] Last Admin: 09/23/16 08:48 Dose: 325 mg Folic Acid (Folic Acid) 1 mg PO DAILY [facility] Last Admin: 09/23/16 08:48 Dose: 1 mg Hydralazine HCl (Apresoline) 50 mg PO TID [facility] Last Admin: 09/23/16 08:48 Dose: 50 mg Hydromorphone HCl (Dilaudid) 0.5 mg IVP Q4HR PRN PRN Reason: Pain Last Admin: 09/22/16 23:25 Dose: 0.5 mg Insulin Human Regular 100 unit (/ Sodium Chloride) 101 mls @ 0 mls/hr IV .Q0M [facility]; Titrate PRN Reason: Protocol Last Titration: 09/23/16 07:15 Dose: 8 mls/hr Vancomycin HCl 750 mg/ Sodium (Chloride) 250 mls @ 125 mls/hr IVPB Q16H [facility] Lisinopril (Zestril) 10 mg PO QAM [facility] Last Admin: 09/23/16 08:48 Dose: 10 mg Metoclopramide HCl (Reglan) 5 mg PO AC-TID [facility] Last Admin: 09/23/16 08:49 Dose: 5 mg Nitroglycerin (Nitrostat) 0.4 mg SUBLINGUAL Q5M PRN PRN Reason: Chest Pain Ondansetron HCl (Zofran) 4 mg PO DAILY PRN PRN Reason: Nausea Polyethylene Glycol (Miralax) 17 gm PO DAILY PRN PRN Reason: Constipation Senna (Senokot) 8.6 mg PO DAILY PRN PRN Reason: Constipation Valproic Acid (Depakene Syrup) 250 mg PO DAILY [facility] Last Admin: 09/23/16 08:48 Dose: 250 mg Vitamin B Complex/Vit C/Vit E/Zinc (Z-Bec) 1 each PO DAILY@1200 [facility] Last Admin: 09/22/16 14:09 Dose: 1 each Plan: Medicine to start insulin coverage, wean from insulin drip as tolerated. Continue local wound care. Infectious disease service following. We'll follow up with the patient upon discharge in the wound clinic. <Himanshu Cadena - Last Filed: 09/23/16 10:58> Progress Note - Text CONTINUITY COORDINATOR note reviewed and accepted. Stable condition post toe amputation. Home when okay with primary. We'll see in the wound center in 1 week.
[2016-09-23 10:10] LABS: Basophils % (A) 0 %; CHCM 30.9; Eosinophils % (A) 1 %; HCT 29.5 % (34.0-46.0); HDW 2.07; HGB 9.1 gm/dL (11.4-16.0); Luc # (Auto) 0.14; Luc % (Auto) 2; Lymphocytes # (A) 2.3 k/uL (1.0-4.8); Lymphocytes % (A) 28 %; MCH 31.1 pg (25.0-35.0); MCHC 30.9 g/dL (31.0-37.0); MCV 100.7 fL (80.0-100.0); Mean Platelet Volume 7.8; Monocytes # (A) 0.4 k/uL (0-1.0); Monocytes % (A) 5 %; Neutrophils # (A) 5.4 k/uL (1.3-7.7); Neutrophils % (A) 65 %; RBC 2.93 m/uL (3.80-5.40); RDW 13.2 % (11.5-15.5); WBC 8.4 k/uL (3.8-10.6)
[2016-09-23 10:29] LABS: ALT 25 U/L (9-52); AST 14 U/L (14-36); Alkaline Phosphatase 48 U/L (38-126); Anion Gap 8 mmol/L; Blood Urea Nitrogen 29 mg/dL (7-17); Carbon Dioxide 24 mmol/L (22-30); Chloride 111 mmol/L (98-107); Glucose 154 mg/dL (74-99); Non-African American GFR(MDRD) >60 (>60 ml/min/1.73 sqM); Potassium 4.9 mmol/L (3.5-5.1); Sodium 143 mmol/L (137-145); Total Bilirubin 0.4 mg/dL (0.2-1.3); Total Protein 6.2 g/dL (6.3-8.2)
[2016-09-23 10:52] LABS: Glucose,Whole Blood 142 mg/dL (75-99)
[2016-09-23] MEDS: INSULIN REGULAR 100 UNIT in SODIUM CHLORIDE 0.9% 100 ML IV SCH (10:56)
[2016-09-23] MEDS: B COMPLEX-VIT C-VIT E-ZINC 1 EACH TAB PO SCH (12:59)
[2016-09-23 13:30] LABS: Glucose,Whole Blood 231 mg/dL (75-99)
[2016-09-23] MEDS: HYDROmorphone 1 MG/ML 1 ML SYRINGE IVP PRN (13:49)
[2016-09-23 15:37] LABS: Glucose,Whole Blood 208 mg/dL (75-99)
[2016-09-23] MEDS: HYDROcodone/APAP 7.5-325MG 1 EACH TAB PO PRN (15:46)
[2016-09-23] MEDS: ALPRAZolam 0.5 MG TAB PO PRN (15:47)
[2016-09-23 17:29] LABS: Glucose,Whole Blood 161 mg/dL (75-99)
[2016-09-23] MEDS: VANCOMYCIN 750 MG in SODIUM CHLORIDE 0.9% 250 ML IVPB SCH (17:44)
--- NOTE | 2016-09-23 18:34 | P.PN ---
Subjective Principal diagnosis: right fifth toe osteomyelitis patient is a 56-year-old female was known history of insulin-dependent diabetes mellitus and previous history of stroke with left sided sidney-paresis who was admitted to [facility] due to right foot cellulitis with evidence of osteomyelitis on the right fifth toe patient was evaluated by Dr. Cadena and underwent amputation of the right fifth toe is maintained on IV antibiotic vancomycin consultation for Dr. Mendez was also initiated. Patient has insulin-dependent diabetes mellitus her glucose was not well controlled currently she is maintained on insulin drip Clinically patient is doing better she is complaining of mild pain in her right foot otherwise she denies any complaints Objective - Vital Signs Vital signs: Vital Signs Temp 99.5 F 09/23/16 15:00 Pulse 86 09/23/16 15:00 Resp 20 09/23/16 15:00 BP 120/58 09/23/16 15:00 Pulse Ox 95 09/23/16 15:00 Intake & Output 09/22/16 09/23/16 09/23/16 18:59 06:59 18:59 Intake Total 565.50 121.401 531.016 Output Total 27 Balance 538.50 121.401 531.016 Weight 48.988 kg Intake: IV 506 Intake, IV Titration 59.50 61.401 51.016 Amount Insulin Regular 100 unit 59.50 61.401 51.016 In Sodium Chloride 0.9% 100 ml @ Titrate IV .Q0M [facility] Rx#:[id number] Oral 60 480 Output: Urine 2 Estimated Blood Loss 25 Other: Voiding Method Bedpan # Voids 1 4 # Bowel Movements 2 0 - Exam in general patient is alert and oriented in no apparent distress HEENT head normocephalic and atraumatic Neck is supple no JVD no goiter no lymphadenopathy Chest is clear to auscultation no wheezing Cardiac exam reveals regular heart sounds no murmurs Abdomen is soft nontender no organomegaly Extremity exam reveals minimal edema - Labs CBC & Chem 7: 09/23/16 09:08 09/23/16 09:08 Labs: Abnormal Lab Results - Last 24 Hours (Table) 09/22/16 09/22/16 09/22/16 Range/Units 19:38 21:09 23:10 RBC (3.80-5.40) m/uL Hgb (11.4-16.0) gm/dL Hct (34.0-46.0) % MCV (80.0-100.0) fL MCHC (31.0-37.0) g/dL Chloride (98-107) mmol/L BUN (7-17) mg/dL Glucose (74-99) mg/dL POC Glucose (mg/dL) 279 H 340 H 332 H (75-99) mg/dL Total Protein (6.3-8.2) g/dL Albumin (3.5-5.0) g/dL Urine Glucose (UA) (Negative) 09/23/16 09/23/16 09/23/16 Range/Units 01:13 03:30 03:41 RBC (3.80-5.40) m/uL Hgb (11.4-16.0) gm/dL Hct (34.0-46.0) % MCV (80.0-100.0) fL MCHC (31.0-37.0) g/dL Chloride (98-107) mmol/L BUN (7-17) mg/dL Glucose (74-99) mg/dL POC Glucose (mg/dL) 149 H 196 H (75-99) mg/dL Total Protein (6.3-8.2) g/dL Albumin (3.5-5.0) g/dL Urine Glucose (UA) 3+ H (Negative) 09/23/16 09/23/16 09/23/16 Range/Units 05:17 07:02 08:58 RBC (3.80-5.40) m/uL Hgb (11.4-16.0) gm/dL Hct (34.0-46.0) % MCV (80.0-100.0) fL MCHC (31.0-37.0) g/dL Chloride (98-107) mmol/L BUN (7-17) mg/dL Glucose (74-99) mg/dL POC Glucose (mg/dL) 351 H 328 H 152 H (75-99) mg/dL Total Protein (6.3-8.2) g/dL Albumin (3.5-5.0) g/dL Urine Glucose (UA) (Negative) 09/23/16 09/23/16 09/23/16 Range/Units 09:08 09:08 10:49 RBC 2.93 L (3.80-5.40) m/uL Hgb 9.1 L (11.4-16.0) gm/dL Hct 29.5 L (34.0-46.0) % MCV 100.7 H (80.0-100.0) fL MCHC 30.9 L (31.0-37.0) g/dL Chloride 111 H (98-107) mmol/L BUN 29 H (7-17) mg/dL Glucose 154 H (74-99) mg/dL POC Glucose (mg/dL) 142 H (75-99) mg/dL Total Protein 6.2 L (6.3-8.2) g/dL Albumin 3.3 L (3.5-5.0) g/dL Urine Glucose (UA) (Negative) 09/23/16 09/23/16 09/23/16 Range/Units 13:27 15:32 17:24 RBC (3.80-5.40) m/uL Hgb (11.4-16.0) gm/dL Hct (34.0-46.0) % MCV (80.0-100.0) fL MCHC (31.0-37.0) g/dL Chloride (98-107) mmol/L BUN (7-17) mg/dL Glucose (74-99) mg/dL POC Glucose (mg/dL) 231 H 208 H 161 H (75-99) mg/dL Total Protein (6.3-8.2) g/dL Albumin (3.5-5.0) g/dL Urine Glucose (UA) (Negative) Microbiology - Last 24 Hours (Table) 09/23/16 03:30 Urine Culture - Preliminary Urine,Voided Assessment and Plan Plan: #1 right foot cellulitis was possible osteomyelitis with nonhealing ulcer at this time will start IV vancomycin, consultation with Dr. Mendez initiated patient status post amputation of her right fifth toe by Dr. Cadena #2 insulin-dependent diabetes mellitus at this time will check hemoglobin A1c plan today is to discontinue insulin drip and restart Lantus at 18 units subcu daily and use NovoLog sliding scale before meals #3 underlying history of hypertension well-controlled on current medications continue #4 underlying history of hyperlipidemia #5 underlying history of coronary artery disease stable at this time #6 previous history of right hemispheric stroke with left-sided hemiparesis At this time patient is admitted to medical floor started on IV vancomycin awaiting input from Dr. Mendez and Dr. Cadena
[2016-09-23 19:39] LABS: Glucose,Whole Blood 142 mg/dL (75-99)
[2016-09-23 21:08] LABS: Glucose,Whole Blood 184 mg/dL (75-99)
[2016-09-23] MEDS: INSULIN GLARGINE 100 UNIT/ML 10 ML VIAL SQ SCH (21:59)
[2016-09-23] MEDS: ATORVASTATIN 20 MG TAB PO SCH (21:59)
--- NOTE | 2016-09-23 23:02 | P.PN ---
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 She is not able to toilet herself. She has been a patient at the wound healing center and was last seen by Dr. Cadena. There was plan for amputation which was apparently scheduled for September 16 but because patient's blood sugar was 360, this was canceled. Patient has had ongoing problems with her right foot ulcer that is nonhealing and has been admitted to the hospital and started on vancomycin. Lab work showed a potassium of 6.4, BUN 35 and creatinine 1.2. Patient did receive dose of Kayexalate. White count was 5.7. Blood sugars were again elevated and as high as 497, currently 104. Remains on an insulin drip but is improving. Amputation went well. Objective - Vital Signs Vital signs: Vital Signs Temp 99.5 F 09/23/16 15:00 Pulse 76 09/23/16 20:51 Resp 20 09/23/16 15:00 BP 120/58 09/23/16 15:00 Pulse Ox 95 09/23/16 15:00 Intake & Output 09/23/16 09/23/16 09/24/16 06:59 18:59 06:59 Intake Total 121.401 531.016 3.408 Balance 121.401 531.016 3.408 Intake: Intake, IV Titration 61.401 51.016 3.408 Amount Insulin Regular 100 unit 61.401 51.016 3.408 In Sodium Chloride 0.9% 100 ml @ Titrate IV .Q0M [facility] Rx#:[id number] Oral 60 480 Other: Voiding Method Bedpan # Voids 1 4 # Bowel Movements 0 - Exam Gen: This is a 56-year-old female. She is sitting up in bed and appears to be in no acute distress. HEENT: Head is atraumatic, normocephalic. Pupils equal, round. Sclerae is anicteric. Conjunctiva pink. Mucous membranes of the mouth are slightly dry. No thrush. Poor dentition. NECK: Supple. No JVD. No lymphadenopathy. No thyromegaly. LUNGS: Clear to auscultation. No wheezes or rhonchi. No intercostal retractions. HEART: Regular rate and rhythm. No murmur. ABDOMEN: Soft. Bowel sounds are present. No masses. No tenderness. EXTREMITIES: No pedal edema. No calf tenderness. Dorsalis pedis +2 bilaterally. Post operative dressing is in place. Patient to be changed by the surgeon. NEUROLOGICAL: Patient is awake, alert and oriented x3. Noted difficulty with speech but easy to understand. - Labs CBC & Chem 7: 09/23/16 09:08 09/23/16 09:08 Labs: Abnormal Lab Results - Last 24 Hours (Table) 09/22/16 09/23/16 09/23/16 Range/Units 23:10 01:13 03:30 RBC (3.80-5.40) m/uL Hgb (11.4-16.0) gm/dL Hct (34.0-46.0) % MCV (80.0-100.0) fL MCHC (31.0-37.0) g/dL Chloride (98-107) mmol/L BUN (7-17) mg/dL Glucose (74-99) mg/dL POC Glucose (mg/dL) 332 H 149 H (75-99) mg/dL Total Protein (6.3-8.2) g/dL Albumin (3.5-5.0) g/dL Urine Glucose (UA) 3+ H (Negative) 09/23/16 09/23/16 09/23/16 Range/Units 03:41 05:17 07:02 RBC (3.80-5.40) m/uL Hgb (11.4-16.0) gm/dL Hct (34.0-46.0) % MCV (80.0-100.0) fL MCHC (31.0-37.0) g/dL Chloride (98-107) mmol/L BUN (7-17) mg/dL Glucose (74-99) mg/dL POC Glucose (mg/dL) 196 H 351 H 328 H (75-99) mg/dL Total Protein (6.3-8.2) g/dL Albumin (3.5-5.0) g/dL Urine Glucose (UA) (Negative) 09/23/16 09/23/16 09/23/16 Range/Units 08:58 09:08 09:08 RBC 2.93 L (3.80-5.40) m/uL Hgb 9.1 L (11.4-16.0) gm/dL Hct 29.5 L (34.0-46.0) % MCV 100.7 H (80.0-100.0) fL MCHC 30.9 L (31.0-37.0) g/dL Chloride 111 H (98-107) mmol/L BUN 29 H (7-17) mg/dL Glucose 154 H (74-99) mg/dL POC Glucose (mg/dL) 152 H (75-99) mg/dL Total Protein 6.2 L (6.3-8.2) g/dL Albumin 3.3 L (3.5-5.0) g/dL Urine Glucose (UA) (Negative) 09/23/16 09/23/16 09/23/16 Range/Units 10:49 13:27 15:32 RBC (3.80-5.40) m/uL Hgb (11.4-16.0) gm/dL Hct (34.0-46.0) % MCV (80.0-100.0) fL MCHC (31.0-37.0) g/dL Chloride (98-107) mmol/L BUN (7-17) mg/dL Glucose (74-99) mg/dL POC Glucose (mg/dL) 142 H 231 H 208 H (75-99) mg/dL Total Protein (6.3-8.2) g/dL Albumin (3.5-5.0) g/dL Urine Glucose (UA) (Negative) 09/23/16 09/23/16 09/23/16 Range/Units 17:24 19:37 21:05 RBC (3.80-5.40) m/uL Hgb (11.4-16.0) gm/dL Hct (34.0-46.0) % MCV (80.0-100.0) fL MCHC (31.0-37.0) g/dL Chloride (98-107) mmol/L BUN (7-17) mg/dL Glucose (74-99) mg/dL POC Glucose (mg/dL) 161 H 142 H 184 H (75-99) mg/dL Total Protein (6.3-8.2) g/dL Albumin (3.5-5.0) g/dL Urine Glucose (UA) (Negative) Microbiology - Last 24 Hours (Table) 09/23/16 03:30 Urine Culture - Preliminary Urine,Voided Laboratory Results WBC 8.4 k/uL (3.8-10.6) 09/23/16 09:08 RBC 2.93 m/uL (3.80-5.40) L 09/23/16 09:08 Hgb 9.1 gm/dL (11.4-16.0) L 09/23/16 09:08 Hct 29.5 % (34.0-46.0) L 09/23/16 09:08 MCV 100.7 fL (80.0-100.0) H 09/23/16 09:08 MCH 31.1 pg (25.0-35.0) 09/23/16 09:08 MCHC 30.9 g/dL (31.0-37.0) L 09/23/16 09:08 RDW 13.2 % (11.5-15.5) 09/23/16 09:08 Plt Count 195 k/uL (150-450) 09/23/16 09:08 Neutrophils % 65 % 09/23/16 09:08 Lymphocytes % 28 % 09/23/16 09:08 Monocytes % 5 % 09/23/16 09:08 Eosinophils % 1 % 09/23/16 09:08 Basophils % 0 % 09/23/16 09:08 Neutrophils # 5.4 k/uL (1.3-7.7) 09/23/16 09:08 Lymphocytes # 2.3 k/uL (1.0-4.8) 09/23/16 09:08 Monocytes # 0.4 k/uL (0-1.0) 09/23/16 09:08 Eosinophils # 0.0 k/uL (0-0.7) 09/23/16 09:08 Basophils # 0.0 k/uL (0-0.2) 09/23/16 09:08 Hypochromasia Slight 09/22/16 08:22 Macrocytosis Slight 09/22/16 08:22 Sodium 143 mmol/L (137-145) 09/23/16 09:08 Potassium 4.9 mmol/L (3.5-5.1) 09/23/16 09:08 Chloride 111 mmol/L (98-107) H 09/23/16 09:08 Carbon Dioxide 24 mmol/L (22-30) 09/23/16 09:08 Anion Gap 8 mmol/L 09/23/16 09:08 BUN 29 mg/dL (7-17) H 09/23/16 09:08 Creatinine 0.95 mg/dL (0.52-1.04) 09/23/16 09:08 Est GFR (MDRD) Af Amer >60 (>60 ml/min/1.73 sqM) 09/23/16 09:08 Est GFR (MDRD) Non-Af >60 (>60 ml/min/1.73 sqM) 09/23/16 09:08 Glucose 154 mg/dL (74-99) H 09/23/16 09:08 POC Glucose (mg/dL) 184 mg/dL (75-99) H 09/23/16 21:05 POC Glu [employer] ID Shruthi Gutierres 09/23/16 21:[address] Glu mg/dL 229 mg/dL 09/21/16 18:12 Hemoglobin A1c 9.6 % (4.2-6.1) H 09/21/16 18:12 Calcium 9.0 mg/dL (8.4-10.2) 09/23/16 09:08 Total Bilirubin 0.4 mg/dL (0.2-1.3) 09/23/16 09:08 AST 14 U/L (14-36) 09/23/16 09:08 ALT 25 U/L (9-52) 09/23/16 09:08 Alkaline Phosphatase 48 U/L (38-126) 09/23/16 09:08 Total Protein 6.2 g/dL (6.3-8.2) L 09/23/16 09:08 Albumin 3.3 g/dL (3.5-5.0) L 09/23/16 09:08 Urine Color Yellow 09/23/16 03:30 Urine Appearance Clear (Clear) 09/23/16 03:30 Urine pH 5.0 (5.0-8.0) 09/23/16 03:30 Ur Specific [place] 1.013 (1.001-1.035) 09/23/16 03:30 Urine Protein Negative (Negative) 09/23/16 03:30 Urine Glucose (UA) 3+ (Negative) H 09/23/16 03:30 Urine Ketones Negative (Negative) 09/23/16 03:30 Urine Blood Negative (Negative) 09/23/16 03:30 Urine Nitrite Negative (Negative) 09/23/16 03:30 Urine Bilirubin Negative (Negative) 09/23/16 03:30 Urine Urobilinogen <2.0 mg/dL (<2.0) 09/23/16 03:30 Ur Leukocyte Esterase Negative (Negative) 09/23/16 03:30 Microbiology 09/23/16 03:30 Urine,Voided Urine Culture - Preliminary Assessment and Plan (1) Type 2 diabetes mellitus with right diabetic foot infection Narrative/Plan: 56-year-old woman presents to Hospital for evaluation of her nonhealing ulceration to her right lateral foot at the fifth metatarsal head. She continues to have difficulties with uncontrolled blood sugar and is now on an insulin drip. With improved blood sugar she was taken to the operating room and had the amputation of the fifth metatarsal head. Dressing is in place. Insulin drip is being tapered and discontinued. And may be on insulin as of tomorrow by subcutaneous injection. If stable may be going home. There is no plans for outpatient intravenous antibiotic therapy. However could go home on oral doxycycline therapy 100 mg daily twice per day until she is followed up in the wound healing Center. Status: Acute (2) Ulcer of right foot with necrosis of bone Status: Acute
[2016-09-24] MEDS ORDERED: VANCOMYCIN 750 MG in SODIUM CHLORIDE 0.9% 250 ML IVPB SCH ×2
[2016-09-24 02:03] LABS: Glucose,Whole Blood 367 mg/dL (75-99)
[2016-09-24] MEDS: INSULIN LISPRO (humaLOG) 300 UNIT/3 ML VIAL SQ SCH ×5 (02:27→21:20)
[2016-09-24] MEDS: HYDROcodone/APAP 7.5-325MG 1 EACH TAB PO PRN (02:48)
[2016-09-24 07:33] LABS: Glucose,Whole Blood 77 mg/dL (75-99)
[2016-09-24] MEDS: VANCOMYCIN 750 MG in SODIUM CHLORIDE 0.9% 250 ML IVPB SCH (08:17)
[2016-09-24] MEDS: FAMOTIDINE 20 MG TAB PO SCH ×2 (08:17→17:12)
[2016-09-24] MEDS: ASPIRIN 81 MG CHEW PO SCH (08:17)
[2016-09-24] MEDS: hydrALAZINE HCL 50 MG TAB PO SCH ×3 (08:17→21:24)
[2016-09-24] MEDS: VALPROIC ACID ORAL SOLN 250 MG/5 ML CUP PO SCH ×2 (08:17→11:00)
[2016-09-24] MEDS: FOLIC ACID 1 MG TAB PO SCH (08:17)
[2016-09-24] MEDS: METOCLOPRAMIDE 5 MG TAB PO SCH ×3 (08:18→17:12)
[2016-09-24] MEDS: FERROUS SULFATE 325 MG TAB PO SCH ×2 (08:18→21:20)
[2016-09-24] MEDS: CITALOPRAM HYDROBROMIDE 20 MG TAB PO SCH (08:18)
[2016-09-24] MEDS: ASCORBIC ACID 500 MG TAB PO SCH (08:18)
[2016-09-24] MEDS: HYDROmorphone 1 MG/ML 1 ML SYRINGE IVP PRN (08:33)
[2016-09-24] MEDS: ALPRAZolam 0.5 MG TAB PO PRN ×2 (08:34→21:21)
[2016-09-24 09:08] LABS: Anion Gap 8 mmol/L; Blood Urea Nitrogen 22 mg/dL (7-17); Calcium 9.2 mg/dL (8.4-10.2); Carbon Dioxide 24 mmol/L (22-30); Chloride 111 mmol/L (98-107); Glucose 139 mg/dL (74-99); Non-African American GFR(MDRD) >60 (>60 ml/min/1.73 sqM); Potassium 5.3 mmol/L (3.5-5.1); Sodium 143 mmol/L (137-145)
[2016-09-24] MEDS: SYMBICORT 160-4.5 MCG INHALER INHALATION SCH ×2 (09:36→19:37)
[2016-09-24] MEDS: DIVALPROEX 250 MG TABLET.DR PO SCH (10:59)
[2016-09-24] MEDS: LISINOPRIL 10 MG TAB PO SCH (10:59)
[2016-09-24] MEDS: B COMPLEX-VIT C-VIT E-ZINC 1 EACH TAB PO SCH (11:01)
[2016-09-24 11:48] LABS: Glucose,Whole Blood 329 mg/dL (75-99)
--- NOTE | 2016-09-24 12:46 | P.DS ---
Providers Date of admission: 09/21/16 16:04 Expected date of discharge: 09/24/16 Attending physician: Sherlyn Chen Consults: 09/21/16 17:35 Consult Physician Routine Consulting Provider: Higinio Mendez Consult Reason/Comments: R foot osteomyelitis Do you want consulting provider notified?: Yes Consult Physician Routine Consulting Provider: Himanshu Cadena Consult Reason/Comments: R foot osteomyelitis Do you want consulting provider notified?: Yes [facility]: Discharge diagnosis #1 Acosta grade 3 ulceration of right fifth toe secondary to bone exposure and diabetes. status post amputation of the right fifth toe by Dr. Cadena #2 insulin-dependent diabetes mellitus: Lantus increased to 18 units during this admission. Continue with her scheduled Humalog and sliding scale #3 underlying history of hypertension well-controlled on current medications continue #4 underlying history of hyperlipidemia #5 underlying history of coronary artery disease stable at this time #6 previous history of right hemispheric stroke with left-sided hemiparesis Hospital course This is a 56-year-old female who has a chronic right diabetic foot ulcer that was nonhealing. She does follow with Dr. Cadena in the wound care center. However she was scheduled for amputation of the toe on September 16 because of patient's blood sugars being 360 this was canceled. She was therefore admitted to the hospital and started on IV vancomycin. Dr. Mendez in Dr. Cadena were consulted. Patient was diagnosed with Acosta grade 3 ulceration of the right fifth toe related to her diabetes. Dr. Cadena did proceed with the amputation of the right fifth toe. Patient has done well. She scheduled follow -up with Dr. Cadena in the wound care center in one week. Dr. Mendez is recommending doxycycline 100 mg twice a day for 1 week or until she is followed at the wound care center. Patient is stable for discharge. Her Lantus was adjusted to 18 units during this admission. Blood sugars are better controlled and she is off of the insulin drip. Please refer to chart for any further details. Patient is stable for discharge. Patient Condition at Discharge: Stable Plan - Discharge Summary New Discharge Prescriptions: Doxycycline Hyclate 100 mg PO BID #14 tab Discharge Medication List hydrALAZINE HCL [Apresoline] 50 mg PO TID 02/13/14 [History] Nitroglycerin Sl Tabs [Nitrostat] 0.4 mg SUBLINGUAL Q5M PRN 06/14/14 [History] Ferrous Sulfate [Feosol] 325 mg PO BID 12/07/14 [History] Lisinopril [Prinivil] 10 mg PO QAM 12/07/14 [History] Albuterol Inhaler [Ventolin Hfa Inhaler] 2 puff INHALATION RT-Q6H PRN 07/19/15 [ History] Aspirin EC [Ecotrin Low Dose] 81 mg PO DAILY 07/19/15 [History] Atorvastatin [Lipitor] 20 mg PO HS 07/19/15 [History] Citalopram Hydrobromide [CeleXA] 20 mg PO DAILY 07/19/15 [History] Famotidine [Pepcid] 20 mg PO BID-W/MEALS 07/19/15 [History] Insulin Lispro [humaLOG] 4 units SQ TID-W/MEALS 07/19/15 [History] Metoclopramide [Reglan] 5 mg PO AC-TID 07/19/15 [History] Valproic Acid [Depakene] 250 mg PO DAILY 07/19/15 [History] Vitamin B Complex 1 cap PO DAILY 07/19/15 [History] Budesonide-Formot 160-4.5 Mcg [Symbicort 160-4.5 Mcg Inhaler] 2 puff INHALATION RT-BID 03/05/16 [History] Ergocalciferol [Vitamin D2 (DRISDOL)] 50,000 unit PO SA 03/05/16 [History] Ondansetron [Zofran] 4 mg PO DAILY PRN 08/28/16 [History] INSULIN LISPRO (HumaLOG) [humaLOG] See Protocol SQ TID-W/MEALS 09/07/16 [History ] ALPRAZolam [Xanax] 0.5 mg PO TID PRN 09/21/16 [History] Ascorbic Acid [Vitamin C] 500 mg PO DAILY 09/21/16 [History] Folic Acid 0.8 mg PO DAILY 09/21/16 [History] HYDROcodone/APAP 7.5-325MG [[place] 7.5-325] 1 tab PO TID PRN 09/21/16 [History] Polyethylene Glycol 3350 [Miralax] 17 gm PO DAILY PRN 09/21/16 [History] Sennosides [Senna] 8.6 mg PO DAILY PRN 09/21/16 [History] Doxycycline Hyclate 100 mg PO BID #14 tab 09/24/16 [Rx] Insulin Glargine [Lantus] 18 unit SQ HS #0 09/24/16 [Rx] Follow up Appointment(s)/Referral(s): [facility], [NON-STAFF] - Himanshu Cadena DO [Doctor of Osteopathic Medicine] - 1 Week Sherlyn Chen MD [Primary Care Provider] - 1 Week Activity/Diet/Wound Care/Special Instructions: Diet: cardiac, diabetic Activity: per Dr. Cadena Discharge Disposition: HOME WITH HOME HEALTH SERVICES
--- NOTE | 2016-09-24 14:57 | P.PN ---
Progress Note - Text CV Surgery Nursing POD: #2, status post amputation of the right fifth toe through the proximal phalanx. Patient awake and alert, no distress noted, no specific complaints. Vital Signs: Afebrile Vital Signs - 24 hr 09/23/16 09/23/16 09/23/16 15:00 20:30 20:51 Temperature 99.5 F Pulse Rate 76 76 Pulse Rate [ 86 Pulse Oximetery ] Respiratory 20 Rate Blood Pressure 120/58 [Right Arm] O2 Sat by Pulse 95 Oximetry 09/23/16 09/24/16 23:00 07:00 Temperature 97.8 F 97.5 F L Pulse Rate Pulse Rate [ 89 72 Pulse Oximetery ] Respiratory 18 20 Rate Blood Pressure 133/59 123/60 [Right Arm] O2 Sat by Pulse 93 L 96 Oximetry Labs: [facility] 09/24/16 08:19 Sodium 143 Potassium 5.3 H Chloride 111 H Carbon Dioxide 24 BUN 22 H Creatinine 0.89 Glucose 139 H Calcium 9.2 Microbiology 09/23/16 03:30 Urine,Voided Urine Culture - Final Lungs: Essentially clear throughout, diminished bilateral bases. Respirations are symmetrical and unlabored. O2 sat: 95% on room air. Heart: S1S2, regular rhythm and rate, negative for S3, gallop or murmur. Right foot incision clean dry and well approximated. No drainage noted. Sutures intact. Dressing was placed applying Adaptic, folded 4 x 4 to cover, secured with Kerlix wrap and Luigi wrap. Abdomen: Soft, Positive bowel sounds present in all 4 quadrants. CBGs: 77-367 mg/dL in the last 24 hours. U/O: Adequate. 24 hr Total: Intake & Output 09/22/16 09/23/16 09/24/16 09/25/16 06:59 06:59 06:59 06:59 Intake Total 33.200 217.444 3856.424 480 Output Total 27 Balance 33.200 081.670 7691.424 480 Weight 48.988 kg 48.988 kg Active Medications Hydrocodone Bitart/Acetaminophen ([place] 7.5-325) 1 each PO TID PRN PRN Reason: Pain Last Admin: 09/24/16 02:48 Dose: 1 each Albuterol Sulfate (Ventolin Nebulized) 2.5 mg INHALATION RT-Q6H PRN PRN Reason: Shortness Of Breath Last Admin: 09/23/16 20:29 Dose: 2.5 mg Alprazolam (Xanax) 0.5 mg PO TID PRN PRN Reason: Anxiety Last Admin: 09/24/16 08:34 Dose: 0.5 mg Ascorbic Acid (Vitamin C) 500 mg PO DAILY [facility] Last Admin: 09/24/16 08:18 Dose: 500 mg Aspirin (Aspirin) 81 mg PO DAILY [facility] Last Admin: 09/24/16 08:17 Dose: 81 mg Atorvastatin Calcium (Lipitor) 20 mg PO HS [facility] Last Admin: 09/23/16 21:59 Dose: 20 mg Budesonide/Formoterol Fumarate (Symbicort 160-4.5 Mcg Inhaler) 2 puff INHALATION RT-BID [facility] Last Admin: 09/24/16 09:36 Dose: 2 puff Citalopram Hydrobromide (Celexa) 20 mg PO DAILY [facility] Last Admin: 09/24/16 08:18 Dose: 20 mg Divalproex Sodium (Depakote) 250 mg PO DAILY [facility] Last Admin: 09/24/16 10:59 Dose: 250 mg Famotidine (Pepcid) 20 mg PO BID-W/MEALS [facility] Last Admin: 09/24/16 08:17 Dose: 20 mg Ferrous Sulfate (Feosol) 325 mg PO BID [facility] Last Admin: 09/24/16 08:18 Dose: 325 mg Folic Acid (Folic Acid) 1 mg PO DAILY [facility] Last Admin: 09/24/16 08:17 Dose: 1 mg Hydralazine HCl (Apresoline) 50 mg PO TID [facility] Last Admin: 09/24/16 08:17 Dose: 50 mg Hydromorphone HCl (Dilaudid) 0.5 mg IVP Q4HR PRN PRN Reason: Pain Last Admin: 09/24/16 08:33 Dose: 0.5 mg Insulin Human Regular 100 unit (/ Sodium Chloride) 101 mls @ 0 mls/hr IV .Q0M [facility]; Titrate PRN Reason: Protocol Last Titration: 09/23/16 22:01 Dose: 0 mls/hr Vancomycin HCl 750 mg/ Sodium (Chloride) 250 mls @ 125 mls/hr IVPB Q16H [facility] Last Admin: 09/24/16 08:17 Dose: 125 mls/hr Insulin Glargine (Lantus) 18 unit SQ HS [facility] Last Admin: 09/23/16 21:59 Dose: 18 unit Insulin Human Lispro (Humalog) 0 unit SQ ACHS [facility] PRN Reason: Protocol Last Admin: 09/24/16 12:31 Dose: 6 unit Lisinopril (Zestril) 10 mg PO QAM [facility] Last Admin: 09/24/16 10:59 Dose: 10 mg Metoclopramide HCl (Reglan) 5 mg PO AC-TID [facility] Last Admin: 09/24/16 11:01 Dose: 5 mg Miscellaneous Information (Vancomycin Trough Due) 0 each MISCELLANE DIRECTED ONE Stop: 09/25/16 15:01 Nitroglycerin (Nitrostat) 0.4 mg SUBLINGUAL Q5M PRN PRN Reason: Chest Pain Ondansetron HCl (Zofran) 4 mg PO DAILY PRN PRN Reason: Nausea Polyethylene Glycol (Miralax) 17 gm PO DAILY PRN PRN Reason: Constipation Senna (Senokot) 8.6 mg PO DAILY PRN PRN Reason: Constipation Vitamin B Complex/Vit C/Vit E/Zinc (Z-Bec) 1 each PO DAILY@1200 [facility] Last Admin: 09/24/16 11:01 Dose: 1 each Plan: 1. Discharge when okay with with primary care, follow-up in the wound center next 09/30/2016 at 10:[address] Cadena.
[2016-09-24 17:03] LABS: Glucose,Whole Blood 105 mg/dL (75-99)
[2016-09-24] MEDS: ALBUTEROL NEBULIZED 2.5 MG/3 ML INHALATION PRN (19:37)
[2016-09-24 20:43] LABS: Glucose,Whole Blood 211 mg/dL (75-99)
[2016-09-24] MEDS: ATORVASTATIN 20 MG TAB PO SCH (21:20)
[2016-09-24] MEDS: INSULIN GLARGINE 100 UNIT/ML 10 ML VIAL SQ SCH (21:20)
[2016-09-25] MEDS: VANCOMYCIN 750 MG in SODIUM CHLORIDE 0.9% 250 ML IVPB SCH (00:23)
[2016-09-25 01:57] VITALS: RESP 18
[2016-09-25 07:14] LABS: Glucose,Whole Blood 70 mg/dL (75-99)
[2016-09-25] MEDS: INSULIN LISPRO (humaLOG) 300 UNIT/3 ML VIAL SQ SCH ×2 (08:12→13:35)
[2016-09-25] MEDS: hydrALAZINE HCL 50 MG TAB PO SCH (08:14)
[2016-09-25] MEDS: ASPIRIN 81 MG CHEW PO SCH (08:15)
[2016-09-25] MEDS: ASCORBIC ACID 500 MG TAB PO SCH (08:15)
[2016-09-25] MEDS: METOCLOPRAMIDE 5 MG TAB PO SCH ×2 (08:15→11:32)
[2016-09-25] MEDS: CITALOPRAM HYDROBROMIDE 20 MG TAB PO SCH (08:15)
[2016-09-25] MEDS: LISINOPRIL 10 MG TAB PO SCH (08:15)
[2016-09-25] MEDS: FAMOTIDINE 20 MG TAB PO SCH (08:15)
[2016-09-25] MEDS: FOLIC ACID 1 MG TAB PO SCH (08:15)
[2016-09-25] MEDS: FERROUS SULFATE 325 MG TAB PO SCH (08:15)
[2016-09-25] MEDS: DIVALPROEX 250 MG TABLET.DR PO SCH (08:16)
[2016-09-25] MEDS: HYDROcodone/APAP 7.5-325MG 1 EACH TAB PO PRN (08:27)
[2016-09-25] MEDS: ALPRAZolam 0.5 MG TAB PO PRN (08:27)
[2016-09-25 08:46] VITALS: BP 162/75; TEMP 96.7
[2016-09-25 08:59] LABS: Anion Gap 5 mmol/L; Blood Urea Nitrogen 27 mg/dL (7-17); Calcium 9.3 mg/dL (8.4-10.2); Carbon Dioxide 27 mmol/L (22-30); Chloride 113 mmol/L (98-107); Glucose 58 mg/dL (74-99); Non-African American GFR(MDRD) 54 (>60 ml/min/1.73 sqM); Potassium 5.4 mmol/L (3.5-5.1); Sodium 145 mmol/L (137-145)
[2016-09-25] MEDS: SYMBICORT 160-4.5 MCG INHALER INHALATION SCH (09:26)
[2016-09-25] MEDS: ALBUTEROL NEBULIZED 2.5 MG/3 ML INHALATION PRN (09:26)
[2016-09-25 09:29] VITALS: PULSE 56
[2016-09-25] MEDS ORDERED: SODIUM POLYSTYRENE SULFONATE 15 GM/60 ML BOTTLE PO STA (09:50)
[2016-09-25] MEDS: B COMPLEX-VIT C-VIT E-ZINC 1 EACH TAB PO SCH (11:32)
[2016-09-25 12:27] LABS: Glucose,Whole Blood 414 mg/dL (75-99)
[2016-09-25 12:27] LABS: Glucose,Whole Blood 437 mg/dL (75-99)
[2016-09-25] MEDS ORDERED: VANCOMYCIN TROUGH DUE 1 EACH MISC MISCELLANE ONE (15:00)
== END 2016-09-25 14:00 | disposition home health service (06) | DRG 617 ==
LOC: EEVIPCON 16:04 → 4MS4W 16:04
PROVIDERS: ADMIT Internal Medicine; ATTEND Internal Medicine
PROC: 0Y6X0Z1 Detachment at Right 5th Toe, High, Open Approach (ICD-10-PCS; principal; 2016-09-22 11:30)
DX: E11.69 Type 2 diabetes mellitus with other specified complication (principal); I69.354 Hemiplegia and hemiparesis following cerebral infarction affecting left non-dominant side; I11.0 Hypertensive heart disease with heart failure; M86.9 Osteomyelitis, unspecified; I50.9 Heart failure, unspecified; L97.514 Non-pressure chronic ulcer of other part of right foot with necrosis of bone; E11.621 Type 2 diabetes mellitus with foot ulcer; E11.319 Type 2 diabetes mellitus with unspecified diabetic retinopathy without macular edema; Z79.4 Long term (current) use of insulin; E78.5 Hyperlipidemia, unspecified; F17.200 Nicotine dependence, unspecified, uncomplicated; F32.9 Major depressive disorder, single episode, unspecified; F41.9 Anxiety disorder, unspecified; I25.10 Atherosclerotic heart disease of native coronary artery without angina pectoris; I25.2 Old myocardial infarction; J44.9 Chronic obstructive pulmonary disease, unspecified; K21.9 Gastro-esophageal reflux disease without esophagitis; Z79.899 Other long term (current) drug therapy; Z82.49 Family history of ischemic heart disease and other diseases of the circulatory system; Z82.5 Family history of asthma and other chronic lower respiratory diseases; Z83.3 Family history of diabetes mellitus; Z95.5 Presence of coronary angioplasty implant and graft; Z79.82 Long term (current) use of aspirin; Z88.1 Allergy status to other antibiotic agents; Z88.5 Allergy status to narcotic agent; Z88.0 Allergy status to penicillin
CPT/HCPCS: 80048; 80053; 81003; 83036; 85025; 87086; 94640

== ENCOUNTER 2016-10-03 19:52 | Emergency (ER) | payer OTHER ==
[2016-10-03] MEDS ORDERED: SODIUM CHLORIDE 0.9% 1,000 ML IV ONE (20:49)
[2016-10-03] MEDS ORDERED: SODIUM CHLORIDE 0.9% 1,000 ML IV SCH (21:00)
--- NOTE | 2016-10-03 21:13 | ED ---
General Adult HPI - General Chief complaint: Recheck/Abnormal Lab/Rx Stated complaint: diabetic issues Time Seen by Provider: 10/03/16 20:28 Source: patient, RN notes reviewed, old records reviewed Mode of arrival: EMS Limitations: no limitations - History of Present Illness Initial comments: Physical 56-year-old female with chief complaint of hypoglycemic episode earlier today. Patient's family reports that she was very tired all day today. They state that she did not eat much. They state that she was acting almost as if she had a stroke. She was on response. They were able to get her some orange juice and pizza. They state that she did start to perk up a bit after that. 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 Patient denies any abdominal pain, dysuria or hematuria. She reports that she's had a cough and felt slightly short of breath. She denies any chest pain. She states that she always has neck pain. Patient family reports that she has just been generally fatigued today.Patient has a past medical history of chest pain, heart failure, COPD, diabetes, hypertension, thyroid disorder. Patient's family reports that she was recently at her toe removed and is on antibiotics. She was discharged not too long ago at that time. They state that they did change her blood pressure medication and decrease her lisinopril. - Related Data Home Medications Medication Instructions Recorded Confirmed hydrALAZINE HCL [Apresoline] 50 mg PO TID 02/13/14 10/03/16 Nitroglycerin Sl Tabs [Nitrostat] 0.4 mg SUBLINGUAL Q5M PRN 06/14/14 10/03/16 Albuterol Inhaler [Ventolin Hfa 2 puff INHALATION RT-Q6H PRN 07/19/15 10/03/16 Inhaler] Aspirin EC [Ecotrin Low Dose] 81 mg PO DAILY 07/19/15 10/03/16 Atorvastatin [Lipitor] 20 mg PO HS 07/19/15 10/03/16 Citalopram Hydrobromide [CeleXA] 20 mg PO DAILY 07/19/15 10/03/16 Famotidine [Pepcid] 20 mg PO BID-W/MEALS 07/19/15 10/03/16 Insulin Lispro [humaLOG] 4 units SQ TID-W/MEALS 07/19/15 10/03/16 Metoclopramide [Reglan] 5 mg PO AC-TID 07/19/15 10/03/16 Valproic Acid [Depakene] 250 mg PO DAILY 07/19/15 10/03/16 Vitamin B Complex 1 cap PO DAILY 07/19/15 10/03/16 Budesonide-Formot 160-4.5 Mcg 2 puff INHALATION RT-BID 03/05/16 10/03/16 [Symbicort 160-4.5 Mcg Inhaler] Ergocalciferol [Vitamin D2 50,000 unit PO SA 03/05/16 10/03/16 (DRISDOL)] Ondansetron [Zofran] 4 mg PO DAILY PRN 08/28/16 10/03/16 INSULIN LISPRO (HumaLOG) [humaLOG] See Protocol SQ TID-W/MEALS 09/07/16 10/03/16 ALPRAZolam [Xanax] 0.5 mg PO TID PRN 09/21/16 10/03/16 Ascorbic Acid [Vitamin C] 500 mg PO DAILY 09/21/16 10/03/16 HYDROcodone/APAP 10-325MG [[place] 1 tab PO Q6H PRN 10/03/16 10/03/16 10-325] Previous Rx's Medication Instructions Recorded Insulin Glargine [Lantus] 18 unit SQ HS #0 09/24/16 Lisinopril [Zestril] 2.5 mg PO DAILY #30 tab 09/25/16 Allergies Allergy/AdvReac Type Severity Reaction Status Date / Time Barbiturates Allergy Rash/Hives Verified 09/30/16 11:05 cephalexin monohydrate Allergy Rash/Hives Verified 09/30/16 11:05 [From Keflex] morphine Allergy Rash/Hives Verified 09/30/16 11:05 Penicillins Allergy Rash/Hives Verified 09/30/16 11:05 phenobarbital Allergy Swelling Verified 09/30/16 11:05 venom-honey bee Allergy Swelling Verified 09/30/16 11:05 [bee venom (honey bee)] amlodipine besylate AdvReac Vomiting Verified 09/30/16 11:05 [From Norvasc] Review of Systems ROS Statement: Those systems with pertinent positive or pertinent negative responses have been documented in the HPI. ROS Other: All systems not noted in ROS Statement are negative. Past Medical History Past Medical History: Chest Pain / Angina, Heart Failure, COPD, CVA/TIA, Diabetes Mellitus, Deep Vein Thrombosis (DVT), Eye Disorder, GERD/Reflux, Hyperlipidemia, Hypertension, Myocardial Infarction ([place]), Thyroid Disorder Additional Past Medical History / Comment(s): HX OF CVA X3 (LAST 11/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 [place] 2011. DVT RT AXILLA. RENAL FAILURE. LOW THYROID, PERIPHERAL NEUROPATHY HANDS & FEET. ANEMIA. HX OF DKA. USES W/ C. CONSTIPATION, ESOPHAGITIS. EPIGLOTITIS. HEADACHES SINCE CVA, uses a wheelchair. RETINOPATHY SHIVA EYES. HX RT TOE INFECTION, GANGRENE, HAD AMP. Last Myocardial Infarction Date:: 2011 History of Any Multi-Drug Resistant Organisms: MRSA Date of last positivie culture/infection: 02/17/2013 MDRO Source:: Right Foot Past Surgical History: Appendectomy, Section, Cholecystectomy, Heart Catheterization With Stent, Hysterectomy, Orthopedic Surgery Additional Past Surgical History / Comment(s): Amputation Rt 2ND Toe. C-S X3. EGD. Bronchoscopy. RT Arm Port Placed FOR AB RX; Removed. 6 CARDIAC STENTS. left shoulder bone removed Past Anesthesia/Blood Transfusion Reactions: No Reported Reaction Additional Past Anesthesia/Blood Transfusion Reaction / Comment(s): HX OF BLOOD TRANSFUSION- NO REACTION Date of Last Stent Placement:: July 2012 Past Psychological History: Anxiety, Bipolar, Depression Additional Psychological History / Comment(s): HER adult son lives with her. Smoking Status: Current every day smoker Past Alcohol Use History: None Reported Additional Past Alcohol Use History / Comment(s): SMOKED FOR 36 YRS. 1PPD. STARTED SMOKING AGE 18, QUIT NOVEMBER 2014, RECENTLY SMOKING. Past Drug Use History: None Reported - Past Family History Father Family Medical History: Unable to Obtain, Coronary Artery Disease (CAD), Diabetes Mellitus Mother Family Medical History: COPD General Exam - General Exam Comments Initial Comments: This is a 36-year-old female. Patient has evidence of chronic stroke residual symptoms with left arm paralysis. She doesn't appear to be in any acute distress at this time. Limitations: no limitations General appearance: alert, in no apparent distress Head exam: Present: atraumatic, normocephalic, normal inspection Eye exam: Present: normal appearance, PERRL, EOMI. Absent: scleral icterus, conjunctival injection, periorbital swelling ENT exam: Present: normal exam, mucous membranes moist Neck exam: Present: normal inspection. Absent: tenderness, meningismus, lymphadenopathy Respiratory exam: Present: normal lung sounds bilaterally. Absent: respiratory distress, wheezes, rales, rhonchi, stridor Cardiovascular Exam: Present: regular rate, normal rhythm, normal heart sounds. Absent: systolic murmur, diastolic murmur, rubs, gallop, clicks GI/Abdominal exam: Present: soft, normal bowel sounds. Absent: distended, tenderness, guarding, rebound, rigid Extremities exam: Present: normal inspection, full ROM, normal capillary refill. Absent: tenderness, pedal edema, joint swelling, calf tenderness Left Forearm Wrist exam: Absent: normal inspection, full ROM Hand Wrist exam: Absent: normal inspection, full ROM (chronic left arm and hand contraction.) Back exam: Present: normal inspection Neurological exam: Present: alert, oriented X3, CN II-XII intact Psychiatric exam: Present: normal affect, normal mood Skin exam: Present: warm, dry, intact, normal color. Absent: rash Course Vital Signs 10/03/16 10/03/16 20:27 23:04 Pulse Rate 67 64 Respiratory 20 18 Rate Blood Pressure 86/47 135/56 O2 Sat by Pulse 99 97 Oximetry Medical Decision Making - Medical Decision Making Physical 56-year-old female with chief complaint of hypoglycemic episode earlier today. Patient's family reports that she was very tired all day today. They state that she did not eat much. They state that she was acting almost as if she had a stroke. She was on response. They were able to get her some orange juice and pizza. They state that she did start to perk up a bit after that. 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 Patient denies any abdominal pain, dysuria or hematuria. She reports that she's had a cough and felt slightly short of breath. She denies any chest pain. She states that she always has neck pain. Patient family reports that she has just been generally fatigued today.Patient has a past medical history of chest pain, heart failure, COPD, diabetes, hypertension, thyroid disorder. Patient's family reports that she was recently at her toe removed and is on antibiotics. She was discharged not too long ago at that time. They state that they did change her blood pressure medication and decrease her lisinopril. Blood glucose checked, and 260. Patient is reportedly much better at this time. Patient BP initially as 86/56. Patient given IV fluids and BP returned to 130/ 56. PAtient reprots she is feeling much better and wants to go home, labs reviewed and are negative besides slightly elevated CR. Compared to previous labs 4 months ago, no significant change. Patient agrees to treatment plan and close follow up with PCP. - Lab Data Result diagrams: 10/03/16 22:00 10/03/16 22:00 Lab Results 10/03/16 10/03/16 10/03/16 Range/Units 21:17 22:00 22:00 WBC 6.1 (3.8-10.6) k/uL RBC 3.37 L (3.80-5.40) m/uL Hgb 10.5 L (11.4-16.0) gm/dL Hct 33.6 L (34.0-46.0) % MCV 99.6 (80.0-100.0) fL MCH 31.2 (25.0-35.0) pg MCHC 31.3 (31.0-37.0) g/dL RDW 13.1 (11.5-15.5) % Plt Count 192 (150-450) k/uL Neutrophils % 67 % Lymphocytes % 23 % Monocytes % 7 % Eosinophils % 1 % Basophils % 0 % Neutrophils # 4.1 (1.3-7.7) k/uL Lymphocytes # 1.4 (1.0-4.8) k/uL Monocytes # 0.4 (0-1.0) k/uL Eosinophils # 0.1 (0-0.7) k/uL Basophils # 0.0 (0-0.2) k/uL Sodium 138 (137-145) mmol/L Potassium (3.5-5.1) mmol/L Chloride 110 H (98-107) mmol/L Carbon Dioxide 22 (22-30) mmol/L Anion Gap 6 mmol/L BUN 40 H (7-17) mg/dL Creatinine 1.20 H (0.52-1.04) mg/dL Est GFR (MDRD) Af Amer 56 (>60 ml/min/1.73 sqM) Est GFR (MDRD) Non-Af 46 (>60 ml/min/1.73 sqM) Glucose 287 H (74-99) mg/dL POC Glucose (mg/dL) 266 H (75-99) mg/dL POC Glu Dispatch Officer ID Arft, Edilson Calcium 8.9 (8.4-10.2) mg/dL Magnesium 2.3 (1.6-2.3) mg/dL Total Bilirubin 0.6 (0.2-1.3) mg/dL AST 30 (14-36) U/L ALT 34 (9-52) U/L Alkaline Phosphatase 52 (38-126) U/L Total Creatine Kinase (30-135) U/L CK-MB (CK-2) (0.0-2.4) ng/mL CK-MB (CK-2) Rel Index Total Protein 6.6 (6.3-8.2) g/dL Albumin 3.6 (3.5-5.0) g/dL 10/03/16 Range/Units 22:00 WBC (3.8-10.6) k/uL RBC (3.80-5.40) m/uL Hgb (11.4-16.0) gm/dL Hct (34.0-46.0) % MCV (80.0-100.0) fL MCH (25.0-35.0) pg MCHC (31.0-37.0) g/dL RDW (11.5-15.5) % Plt Count (150-450) k/uL Neutrophils % % Lymphocytes % % Monocytes % % Eosinophils % % Basophils % % Neutrophils # (1.3-7.7) k/uL Lymphocytes # (1.0-4.8) k/uL Monocytes # (0-1.0) k/uL Eosinophils # (0-0.7) k/uL Basophils # (0-0.2) k/uL Sodium (137-145) mmol/L Potassium (3.5-5.1) mmol/L Chloride (98-107) mmol/L Carbon Dioxide (22-30) mmol/L Anion Gap mmol/L BUN (7-17) mg/dL Creatinine (0.52-1.04) mg/dL Est GFR (MDRD) Af Amer (>60 ml/min/1.73 sqM) Est GFR (MDRD) Non-Af (>60 ml/min/1.73 sqM) Glucose (74-99) mg/dL POC Glucose (mg/dL) (75-99) mg/dL POC Glu Dispatch Officer ID Calcium (8.4-10.2) mg/dL Magnesium (1.6-2.3) mg/dL Total Bilirubin (0.2-1.3) mg/dL AST (14-36) U/L ALT (9-52) U/L Alkaline Phosphatase (38-126) U/L Total Creatine Kinase 35 (30-135) U/L CK-MB (CK-2) 1.2 (0.0-2.4) ng/mL CK-MB (CK-2) Rel Index 3.4 Total Protein (6.3-8.2) g/dL Albumin (3.5-5.0) g/dL Disposition Clinical Impression: Hypoglycemia Disposition: HOME SELF-CARE Condition: Good Instructions: Hypoglycemia in a Person with Diabetes (ED) Additional Instructions: Patient advised to rest, remain hydrated. Follow-up with primary care provider Wednesday. Return to the emergency department if any alarming signs or symptoms occur. Referrals: Sherlyn Chen MD [Primary Care Provider] - 1-2 days Time of Disposition: 23:17
[2016-10-03 21:22] LABS: Glucose,Whole Blood 266 mg/dL (75-99)
[2016-10-03 22:11] LABS: Basophils % (A) 0 %; CHCM 31.3; Eosinophils # (A) 0.1 k/uL (0-0.7); Eosinophils % (A) 1 %; HCT 33.6 % (34.0-46.0); HDW 2.15; HGB 10.5 gm/dL (11.4-16.0); Luc # (Auto) 0.13; Luc % (Auto) 2; Lymphocytes # (A) 1.4 k/uL (1.0-4.8); Lymphocytes % (A) 23 %; MCH 31.2 pg (25.0-35.0); MCHC 31.3 g/dL (31.0-37.0); MCV 99.6 fL (80.0-100.0); Mean Platelet Volume 7.9; Monocytes # (A) 0.4 k/uL (0-1.0); Monocytes % (A) 7 %; Neutrophils # (A) 4.1 k/uL (1.3-7.7); Neutrophils % (A) 67 %; RBC 3.37 m/uL (3.80-5.40); RDW 13.1 % (11.5-15.5); WBC 6.1 k/uL (3.8-10.6); WBC (Perox) 6.42
[2016-10-03 22:21] LABS: Calcium 8.9 mg/dL (8.4-10.2); Magnesium 2.3 mg/dL (1.6-2.3); Total Bilirubin 0.6 mg/dL (0.2-1.3); Total Protein 6.6 g/dL (6.3-8.2)
[2016-10-03 22:53] LABS: Creatine Kinase MB 1.2 ng/mL (0.0-2.4)
[2016-10-03 23:04] VITALS: BP 135/56; PULSE 64; RESP 18
== END 2016-10-03 23:42 | disposition home or self-care (01) ==
LOC: EC 19:52
DX: E11.649 Type 2 diabetes mellitus with hypoglycemia without coma (principal); R05 Cough; R06.02 Shortness of breath; R53.83 Other fatigue; I11.0 Hypertensive heart disease with heart failure; I50.9 Heart failure, unspecified; I25.2 Old myocardial infarction; E78.5 Hyperlipidemia, unspecified; K21.9 Gastro-esophageal reflux disease without esophagitis; E03.9 Hypothyroidism, unspecified; E11.42 Type 2 diabetes mellitus with diabetic polyneuropathy; D64.9 Anemia, unspecified; F31.9 Bipolar disorder, unspecified; F41.9 Anxiety disorder, unspecified; F17.200 Nicotine dependence, unspecified, uncomplicated; Z86.718 Personal history of other venous thrombosis and embolism; Z86.73 Personal history of transient ischemic attack (TIA), and cerebral infarction without residual deficits; Z79.4 Long term (current) use of insulin; Z79.82 Long term (current) use of aspirin; Z79.51 Long term (current) use of inhaled steroids; Z79.899 Other long term (current) drug therapy; Z88.0 Allergy status to penicillin; Z88.1 Allergy status to other antibiotic agents; Z88.5 Allergy status to narcotic agent; Z88.8 Allergy status to other drugs, medicaments and biological substances; Z91.030 Bee allergy status
CPT/HCPCS: 36415; 80053; 82550; 82553; 83735; 85025; 96360; 99285

== ENCOUNTER 2016-10-27 11:41 | Emergency (ER) | payer OTHER ==
[2016-10-27 11:52] LABS: Glucose,Whole Blood 434 mg/dL (75-99)
[2016-10-27] MEDS ORDERED: SODIUM CHLORIDE 0.9% 1,000 ML IV ONE (12:01)
[2016-10-27] MEDS ORDERED: INSULIN REGULAR 100 UNIT/ML VIAL IV ONE (12:03)
[2016-10-27 12:51] LABS: Basophils % (A) 0 %; CH 30.6; CHCM 30.2; Eosinophils % (A) 0 %; HCT 33.9 % (34.0-46.0); HDW 2.21; HGB 10.2 gm/dL (11.4-16.0); Hypochromasia Moderate; Luc # (Auto) 0.05; Luc % (Auto) 1; Lymphocytes # (A) 0.8 k/uL (1.0-4.8); Lymphocytes % (A) 12 %; MCH 30.7 pg (25.0-35.0); MCHC 30.1 g/dL (31.0-37.0); MCV 101.8 fL (80.0-100.0); Macrocytosis Slight; Monocytes # (A) 0.4 k/uL (0-1.0); Monocytes % (A) 5 %; Neutrophils # (A) 5.5 k/uL (1.3-7.7); Neutrophils % (A) 82 %; RBC 3.33 m/uL (3.80-5.40); RDW 12.7 % (11.5-15.5); WBC 6.8 k/uL (3.8-10.6); WBC (Perox) 7.38
[2016-10-27 13:01] LABS: Calcium 9.2 mg/dL (8.4-10.2); Potassium 5.4 mmol/L (3.5-5.1); Total Bilirubin 0.5 mg/dL (0.2-1.3); Total Protein 6.9 g/dL (6.3-8.2)
[2016-10-27 13:02] LABS: VBG PH 7.26 (7.31-7.41)
[2016-10-27 13:08] LABS: INR 0.9 (<1.1); Prothrombin Time 9.7 sec (9.0-12.0)
[2016-10-27 13:11] LABS: Creatine Kinase 46 U/L (30-135)
[2016-10-27 13:19] LABS: Partial Thromboplastin Time 19.9 sec (22.0-30.0)
[2016-10-27 13:25] LABS: Creatine Kinase MB 1.1 ng/mL (0.0-2.4); Troponin I <0.012 ng/mL (0.000-0.034)
[2016-10-27 13:32] LABS: Glucose,Whole Blood 352 mg/dL (75-99)
[2016-10-27 13:43] LABS: Appearance,Urine Clear (Clear); Bilirubin,Urine Negative (Negative); Glucose,Urine (UA) 4+ (Negative); Ketones,Urine Negative (Negative); Leukocyte Esterase,Urine Negative (Negative); Nitrite,Urine Negative (Negative); PH, Urine 5.5 (5.0-8.0); Particle Count 3887; Protein,Urine Negative (Negative); RBC,Urine 2 /hpf (0-5); Specific Gravity,Urine 1.014 (1.001-1.035); Squamous Epithelial Cell,Urine <1 /hpf (0-4); UA Billing (MACRO vs. MICRO) MICRO; Urobilinogen,Urine <2.0 mg/dL (<2.0)
--- NOTE | 2016-10-27 14:12 | XR ---
EXAMINATION TYPE: XR chest 2V DATE OF EXAM: 10/27/2016 COMPARISON: Chest x-ray 12/08/2014 HISTORY: altered mental status TECHNIQUE: Frontal and lateral views of the chest are obtained. FINDINGS: There is no pleural effusion, or pneumothorax seen. The cardiac silhouette size is within normal limits. Patchy basilar density is noted. The osseous structures are intact. IMPRESSION: Basilar atelectasis. Low lung volumes, patient is rotated.
--- NOTE | 2016-10-27 14:51 | CT ---
EXAMINATION TYPE: CT brain wo con DATE OF EXAM: 10/27/2016 2:13 PM HISTORY: Altered mental status CT DLP: 1085 mGycm. Automated Exposure Control for Dose Reduction was Utilized. TECHNIQUE: CT scan of the head is performed without contrast. COMPARISON: CT brain December 09, 2014.. FINDINGS: There is no acute intracranial hemorrhage or midline shift identified. No hydrocephalus i s present. Area of encephalomalacia right frontal lobe with superior anterior temporal lobe extensio n is redemonstrated. The globes are intact and the visualized sinuses are clear. IMPRESSION: No acute intracranial hemorrhage or midline shift. There is large area of encephalomala derick centered right frontal lobe redemonstrated.
[2016-10-27] MEDS ORDERED: INSULIN REGULAR 100 UNIT/ML VIAL SQ ONE (14:56)
--- NOTE | 2016-10-27 16:12 | XR ---
EXAMINATION TYPE: XR knee complete LT DATE OF EXAM: 10/27/2016 CLINICAL HISTORY: Left knee pain TECHNIQUE: Three views of the left knee are obtained. COMPARISON: None. FINDINGS: Osseous structures are somewhat demineralized. Evaluation suboptimal due to incomplete ext ension. There is no acute fracture/dislocation evident in left knee. The tri-compartment joint space s appear within normal limits. Some vascular calcification in the posterior soft tissue is noted IMPRESSION: There is no acute fracture or dislocation in the left knee.
--- NOTE | 2016-10-27 16:13 | XR ---
EXAMINATION TYPE: XR shoulder complete LT DATE OF EXAM: 10/27/2016 CLINICAL HISTORY: Left shoulder pain after fall. History of left-sided paralysis. TECHNIQUE: Three views of the left shoulder are obtained. COMPARISON: Left shoulder x-ray February 06, 2016 FINDINGS: There is no new acute fracture/dislocation evident in the left shoulder. Osseous structure s are demineralized.. There is redemonstration of displaced fracture through distal left clavicle. Gl enohumeral joint is maintained. The visualized ribs are intact and unremarkable. IMPRESSION: There is no new acute fracture or dislocation in the left shoulder.
--- NOTE | 2016-10-27 16:15 | XR ---
EXAMINATION TYPE: XR Hip Complete LT DATE OF EXAM: 10/27/2016 CLINICAL HISTORY: Left hip pain after fall. TECHNIQUE: AP and frogleg views of the left hip are obtained. COMPARISON: Abdominal x-ray May 01, 2014. FINDINGS: There is no acute fracture/dislocation evident in the left hip. There is subchondral lucen cy in the femoral head which have lost normal spherical shape. Underlying avascular necrosis is suspe cted. This can be confirmed with nonemergent MRI if desired. Finding is progressed from 2014 study. S ome new ossific fragmentation is felt present. Scattered pelvic phleboliths are redemonstrated. IMPRESSION: There is no acute fracture or dislocation in the left hip.
--- NOTE | 2016-10-27 16:18 | XR ---
EXAMINATION TYPE: XR wrist complete LT DATE OF EXAM: 10/27/2016 CLINICAL HISTORY: Fall injury 2 weeks ago with persistent pain TECHNIQUE: Frontal, lateral, scaphoid, and oblique images of the left wrist are obtained. COMPARISON: Left wrist x-ray October 31, 2010. FINDINGS: Osseous structures are demineralized. There is new irregularity with suspected tiny avulsio n type subacute fracture at the radial aspect distal radial epiphysis. Carpal joint spaces are preser yumiko. Overlying peripheral IV in the dorsum of wrist is present with moderate soft tissue swelling not ed. IMPRESSION: There is probable acute/subacute nondisplaced intra-articular fracture of distal radial epiphysis with new cortical irregularity present.
[2016-10-27 16:51] VITALS: RESP 16
[2016-10-27 16:56] LABS: Glucose,Whole Blood 190 mg/dL (75-99)
--- NOTE | 2016-10-27 17:07 | ED ---
Altered Mental Status HPI - General Chief Complaint: Altered Mental Status Stated Complaint: Altered mental status Time Seen by Provider: 10/27/16 11:49 Source: patient Mode of arrival: EMS Limitations: no limitations - History of Present Illness Initial Comments: And came in with there are change in mental status she was quite weak and didn' t eat much her sister said her sugar was too high she fell and she injured her left wrist and left knee and left hip denies hitting her head or any scalp laceration. She denies any chest pain no shortness of breath no abdominal pain no significant decrease in her strength in her arms or legs. There is over 400 today he was reassessed was unremarkable - Related Data Home Medications Medication Instructions Recorded Confirmed Nitroglycerin Sl Tabs [Nitrostat] 0.4 mg SUBLINGUAL Q5M PRN 06/14/14 10/27/16 Albuterol Inhaler [Ventolin Hfa 2 puff INHALATION RT-Q6H PRN 07/19/15 10/27/16 Inhaler] Aspirin EC [Ecotrin Low Dose] 81 mg PO DAILY 07/19/15 10/27/16 Atorvastatin [Lipitor] 20 mg PO HS 07/19/15 10/27/16 Citalopram Hydrobromide [CeleXA] 20 mg PO DAILY 07/19/15 10/27/16 Famotidine [Pepcid] 20 mg PO W/LUNCH 07/19/15 10/27/16 Insulin Lispro [humaLOG] 4 units SQ TID-W/MEALS 07/19/15 10/27/16 Metoclopramide [Reglan] 5 mg PO AC-TID 07/19/15 10/27/16 Valproic Acid [Depakene] 250 mg PO DAILY 07/19/15 10/27/16 Vitamin B Complex 1 cap PO DAILY 07/19/15 10/27/16 Budesonide-Formot 160-4.5 Mcg 2 puff INHALATION RT-BID 03/05/16 10/27/16 [Symbicort 160-4.5 Mcg Inhaler] Ergocalciferol [Vitamin D2 50,000 unit PO SA 03/05/16 10/27/16 (DRISDOL)] Ondansetron [Zofran] 4 mg PO DAILY PRN 08/28/16 10/27/16 INSULIN LISPRO (HumaLOG) [humaLOG] See Protocol SQ TID-W/MEALS 09/07/16 10/27/16 ALPRAZolam [Xanax] 0.5 mg PO TID PRN 09/21/16 10/27/16 Ascorbic Acid [Vitamin C] 500 mg PO DAILY 09/21/16 10/27/16 HYDROcodone/APAP 10-325MG [[place] 1 tab PO Q6H PRN 10/03/16 10/27/16 10-325] Previous Rx's Medication Instructions Recorded Insulin Glargine [Lantus] 18 unit SQ HS #0 09/24/16 Allergies Allergy/AdvReac Type Severity Reaction Status Date / Time Barbiturates Allergy Rash/Hives Verified 10/27/16 12:11 cephalexin monohydrate Allergy Rash/Hives Verified 10/27/16 12:11 [From Keflex] morphine Allergy Rash/Hives Verified 10/27/16 12:11 Penicillins Allergy Rash/Hives Verified 10/27/16 12:11 phenobarbital Allergy Swelling Verified 10/27/16 12:11 venom-honey bee Allergy Swelling Verified 10/27/16 12:11 [bee venom (honey bee)] amlodipine besylate AdvReac Vomiting Verified 10/27/16 12:11 [From Norvasc] Review of Systems ROS Statement: Those systems with pertinent positive or pertinent negative responses have been documented in the HPI. ROS Other: All systems not noted in ROS Statement are negative. 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 CA 2011. DVT RT AXILLA. RENAL FAILURE. LOW THYROID, PERIPHERAL NEUROPATHY HANDS & FEET. ANEMIA. HX OF DKA. USES W/ C. CONSTIPATION, ESOPHAGITIS. EPIGLOTITIS. HEADACHES SINCE CVA, uses a wheelchair. RETINOPATHY SHIVA EYES. HX RT TOE INFECTION, GANGRENE, HAD AMP. Last Myocardial Infarction Date:: 2011 History of Any Multi-Drug Resistant Organisms: MRSA Date of last positivie culture/infection: 02/17/2013 MDRO Source:: Right Foot Past Surgical History: Appendectomy, Section, Cholecystectomy, Heart Catheterization With Stent, Hysterectomy, Orthopedic Surgery Additional Past Surgical History / Comment(s): Amputation Rt 2ND Toe. C-S X3. EGD. Bronchoscopy. RT Arm Port Placed FOR AB RX; Removed. 6 CARDIAC STENTS. left shoulder bone removed Past Anesthesia/Blood Transfusion Reactions: No Reported Reaction Additional Past Anesthesia/Blood Transfusion Reaction / Comment(s): HX OF BLOOD TRANSFUSION- NO REACTION Date of Last Stent Placement:: July 2012 Past Psychological History: Anxiety, Bipolar, Depression Additional Psychological History / Comment(s): HER adult son lives with her. Smoking Status: Current every day smoker Past Alcohol Use History: None Reported Additional Past Alcohol Use History / Comment(s): SMOKED FOR 36 YRS. 1PPD. STARTED SMOKING AGE 18, QUIT NOVEMBER 2014, RECENTLY SMOKING. Past Drug Use History: None Reported - Past Family History Father Family Medical History: Unable to Obtain, Coronary Artery Disease (CAD), Diabetes Mellitus Mother Family Medical History: COPD General Exam - General Exam Comments Initial Comments: General: The patient is awake and sleepy she follows the commands GSS is 15, she looks dehydrated Skin: Skin is warm and dry and no rashes or lesions are noted. Eye: Pupils are equal, round and reactive to light, extra-ocular movements are intact; there is normal conjunctiva bilaterally. Ears, nose, mouth and throat: There are moist mucous membranes and no oral lesions. Neck: The neck is supple, there is no tenderness or JVD. Cardiovascular: There is a regular rate and rhythm. No murmur, rub or gallop is appreciated. Respiratory: To auscultation bilateral, no wheezing no rhonchi no distress respiratory mckeon noticed Gastrointestinal: Soft, non-distended, non-tender abdomen without masses or organomegaly noted. There is no rebound or guarding present. Bowel sounds are unremarkable. Back: There is no tenderness to palpation in the midline. There is no obvious deformity. Musculoskeletal: Face has a deformity no neurovascular compromise noticed of the distal left hand she is tender over the left greater trochanter and left shoulder is also tender over the deltoid area is decreased range of motion worse so for all these joints is the left wrist range of motion is significantly decreased at the left wrist with the pain. Refills are within normal range no motor or sensory deficits noticed Neurological: CN II-XII intact, Cranial nerves III through XII are intact. There are no obvious motor or sensory deficits. Coordination appears grossly intact. Speech is normal. Psychiatric: Cooperative, appropriate mood & affect, normal judgment. Limitations: no limitations Course Vital Signs 10/27/16 10/27/16 10/27/16 11:44 13:29 14:30 Temperature 100.1 F H Pulse Rate 74 62 Respiratory 16 16 16 Rate Blood Pressure 91/52 140/67 179/72 O2 Sat by Pulse 95 100 100 Oximetry 10/27/16 10/27/16 15:35 16:50 Temperature Pulse Rate 61 65 Respiratory 17 16 Rate Blood Pressure 149/69 166/75 O2 Sat by Pulse 100 100 Oximetry - Reevaluation(s) Reevaluation #1: 10/27/16 17:06 Patient decided to see Dr. Ratliff since elective MoisésWilliam was operated on his shoulder earlier , left wrist was splinted in the ER Medical Decision Making - Lab Data Result diagrams: 10/27/16 12:24 10/27/16 12:24 Lab Results 10/27/16 10/27/16 10/27/16 Range/Units 11:48 12:24 12:24 WBC 6.8 (3.8-10.6) k/uL RBC 3.33 L (3.80-5.40) m/uL Hgb 10.2 L (11.4-16.0) gm/dL Hct 33.9 L (34.0-46.0) % MCV 101.8 H (80.0-100.0) fL MCH 30.7 (25.0-35.0) pg MCHC 30.1 L (31.0-37.0) g/dL RDW 12.7 (11.5-15.5) % Plt Count 148 L (150-450) k/uL Neutrophils % 82 % Lymphocytes % 12 % Monocytes % 5 % Eosinophils % 0 % Basophils % 0 % Neutrophils # 5.5 (1.3-7.7) k/uL Lymphocytes # 0.8 L (1.0-4.8) k/uL Monocytes # 0.4 (0-1.0) k/uL Eosinophils # 0.0 (0-0.7) k/uL Basophils # 0.0 (0-0.2) k/uL Hypochromasia Moderate Macrocytosis Slight PT 9.7 (9.0-12.0) sec INR 0.9 (<1.1) APTT 19.9 L (22.0-30.0) sec VBG pH (7.31-7.41) VBG pCO2 (37-51) mmHg VBG HCO3 (24-28) mmol/L Sodium (137-145) mmol/L Potassium (3.5-5.1) mmol/L Chloride (98-107) mmol/L Carbon Dioxide (22-30) mmol/L Anion Gap mmol/L BUN (7-17) mg/dL Creatinine (0.52-1.04) mg/dL Est GFR (MDRD) Af Amer (>60 ml/min/1.73 sqM) Est GFR (MDRD) Non-Af (>60 ml/min/1.73 sqM) Glucose (74-99) mg/dL POC Glucose (mg/dL) 434 H (75-99) mg/dL POC Glu Bread Panner ID Israel Kimball Calcium (8.4-10.2) mg/dL Total Bilirubin (0.2-1.3) mg/dL AST (14-36) U/L ALT (9-52) U/L Alkaline Phosphatase (38-126) U/L Total Creatine Kinase (30-135) U/L CK-MB (CK-2) (0.0-2.4) ng/mL CK-MB (CK-2) Rel Index Troponin I (0.000-0.034) ng/mL Total Protein (6.3-8.2) g/dL Albumin (3.5-5.0) g/dL Urine Color Urine Appearance (Clear) Urine pH (5.0-8.0) Ur Specific [place] (1.001-1.035) Urine Protein (Negative) Urine Glucose (UA) (Negative) Urine Ketones (Negative) Urine Blood (Negative) Urine Nitrite (Negative) Urine Bilirubin (Negative) Urine Urobilinogen (<2.0) mg/dL Ur Leukocyte Esterase (Negative) Urine RBC (0-5) /hpf Ur Squamous Epith Cells (0-4) /hpf Urine Opiates Screen (NotDetected) Ur Oxycodone Screen (NotDetected) Urine Methadone Screen (NotDetected) Ur Propoxyphene Screen (NotDetected) Ur Barbiturates Screen (NotDetected) U Tricyclic Antidepress (NotDetected) Ur Phencyclidine Scrn (NotDetected) Ur Amphetamines Screen (NotDetected) U Methamphetamines Scrn (NotDetected) U Benzodiazepines Scrn (NotDetected) Urine Cocaine Screen (NotDetected) U Marijuana (THC) Screen (NotDetected) 10/27/16 10/27/16 10/27/16 Range/Units 12:24 12:24 12:24 WBC (3.8-10.6) k/uL RBC (3.80-5.40) m/uL Hgb (11.4-16.0) gm/dL Hct (34.0-46.0) % MCV (80.0-100.0) fL MCH (25.0-35.0) pg MCHC (31.0-37.0) g/dL RDW (11.5-15.5) % Plt Count (150-450) k/uL Neutrophils % % Lymphocytes % % Monocytes % % Eosinophils % % Basophils % % Neutrophils # (1.3-7.7) k/uL Lymphocytes # (1.0-4.8) k/uL Monocytes # (0-1.0) k/uL Eosinophils # (0-0.7) k/uL Basophils # (0-0.2) k/uL Hypochromasia Macrocytosis PT (9.0-12.0) sec INR (<1.1) APTT (22.0-30.0) sec VBG pH 7.26 L (7.31-7.41) VBG pCO2 56 H (37-51) mmHg VBG HCO3 24 (24-28) mmol/L Sodium 138 (137-145) mmol/L Potassium 5.4 H (3.5-5.1) mmol/L Chloride 105 (98-107) mmol/L Carbon Dioxide 24 (22-30) mmol/L Anion Gap 9 mmol/L BUN 32 H (7-17) mg/dL Creatinine 1.22 H (0.52-1.04) mg/dL Est GFR (MDRD) Af Amer 55 (>60 ml/min/1.73 sqM) Est GFR (MDRD) Non-Af 46 (>60 ml/min/1.73 sqM) Glucose 486 H* (74-99) mg/dL POC Glucose (mg/dL) (75-99) mg/dL POC Glu Bread Panner ID Calcium 9.2 (8.4-10.2) mg/dL Total Bilirubin 0.5 (0.2-1.3) mg/dL AST 19 (14-36) U/L ALT 25 (9-52) U/L Alkaline Phosphatase 65 (38-126) U/L Total Creatine Kinase 46 (30-135) U/L CK-MB (CK-2) 1.1 (0.0-2.4) ng/mL CK-MB (CK-2) Rel Index 2.4 Troponin I <0.012 (0.000-0.034) ng/mL Total Protein 6.9 (6.3-8.2) g/dL Albumin 3.8 (3.5-5.0) g/dL Urine Color Urine Appearance (Clear) Urine pH (5.0-8.0) Ur Specific [place] (1.001-1.035) Urine Protein (Negative) Urine Glucose (UA) (Negative) Urine Ketones (Negative) Urine Blood (Negative) Urine Nitrite (Negative) Urine Bilirubin (Negative) Urine Urobilinogen (<2.0) mg/dL Ur Leukocyte Esterase (Negative) Urine RBC (0-5) /hpf Ur Squamous Epith Cells (0-4) /hpf Urine Opiates Screen (NotDetected) Ur Oxycodone Screen (NotDetected) Urine Methadone Screen (NotDetected) Ur Propoxyphene Screen (NotDetected) Ur Barbiturates Screen (NotDetected) U Tricyclic Antidepress (NotDetected) Ur Phencyclidine Scrn (NotDetected) Ur Amphetamines Screen (NotDetected) U Methamphetamines Scrn (NotDetected) U Benzodiazepines Scrn (NotDetected) Urine Cocaine Screen (NotDetected) U Marijuana (THC) Screen (NotDetected) 10/27/16 10/27/16 10/27/16 Range/Units 13:27 13:28 16:47 WBC (3.8-10.6) k/uL RBC (3.80-5.40) m/uL Hgb (11.4-16.0) gm/dL Hct (34.0-46.0) % MCV (80.0-100.0) fL MCH (25.0-35.0) pg MCHC (31.0-37.0) g/dL RDW (11.5-15.5) % Plt Count (150-450) k/uL Neutrophils % % Lymphocytes % % Monocytes % % Eosinophils % % Basophils % % Neutrophils # (1.3-7.7) k/uL Lymphocytes # (1.0-4.8) k/uL Monocytes # (0-1.0) k/uL Eosinophils # (0-0.7) k/uL Basophils # (0-0.2) k/uL Hypochromasia Macrocytosis PT (9.0-12.0) sec INR (<1.1) APTT (22.0-30.0) sec VBG pH (7.31-7.41) VBG pCO2 (37-51) mmHg VBG HCO3 (24-28) mmol/L Sodium (137-145) mmol/L Potassium (3.5-5.1) mmol/L Chloride (98-107) mmol/L Carbon Dioxide (22-30) mmol/L Anion Gap mmol/L BUN (7-17) mg/dL Creatinine (0.52-1.04) mg/dL Est GFR (MDRD) Af Amer (>60 ml/min/1.73 sqM) Est GFR (MDRD) Non-Af (>60 ml/min/1.73 sqM) Glucose (74-99) mg/dL POC Glucose (mg/dL) 352 H 190 H (75-99) mg/dL POC Glu Bread Panner Israel Conner Cynthia Calcium (8.4-10.2) mg/dL Total Bilirubin (0.2-1.3) mg/dL AST (14-36) U/L ALT (9-52) U/L Alkaline Phosphatase (38-126) U/L Total Creatine Kinase (30-135) U/L CK-MB (CK-2) (0.0-2.4) ng/mL CK-MB (CK-2) Rel Index Troponin I (0.000-0.034) ng/mL Total Protein (6.3-8.2) g/dL Albumin (3.5-5.0) g/dL Urine Color Yellow Urine Appearance Clear (Clear) Urine pH 5.5 (5.0-8.0) Ur Specific [place] 1.014 (1.001-1.035) Urine Protein Negative (Negative) Urine Glucose (UA) 4+ H (Negative) Urine Ketones Negative (Negative) Urine Blood Trace H (Negative) Urine Nitrite Negative (Negative) Urine Bilirubin Negative (Negative) Urine Urobilinogen <2.0 (<2.0) mg/dL Ur Leukocyte Esterase Negative (Negative) Urine RBC 2 (0-5) /hpf Ur Squamous Epith Cells <1 (0-4) /hpf Urine Opiates Screen Detected H (NotDetected) Ur Oxycodone Screen Not Detected (NotDetected) Urine Methadone Screen Not Detected (NotDetected) Ur Propoxyphene Screen Not Detected (NotDetected) Ur Barbiturates Screen Not Detected (NotDetected) U Tricyclic Antidepress Not Detected (NotDetected) Ur Phencyclidine Scrn Not Detected (NotDetected) Ur Amphetamines Screen Not Detected (NotDetected) U Methamphetamines Scrn Not Detected (NotDetected) U Benzodiazepines Scrn Detected H (NotDetected) Urine Cocaine Screen Not Detected (NotDetected) U Marijuana (THC) Screen Not Detected (NotDetected) Disposition Clinical Impression: Change in mental status, Hyperglycemia, Left wrist fracture Disposition: HOME SELF-CARE Condition: Good Additional Instructions: Will continue taking Tylenol or Motrin for the pain considering that she is quite groggy and sleepy and she is already taking the benzos as well as [place]'s I would not add any further pain medications or prescriptions Referrals: Sherlyn Chen MD [Primary Care Provider] - 1-2 days Arpan Ocampo MD [STAFF PHYSICIAN] - 1-2 days
[2016-10-27 17:19] VITALS: BP 149/69; PULSE 71; TEMP 99.3
[2016-10-27] MEDS ORDERED: LEVOFLOXACIN 750 MG TAB PO STA (17:20)
== END 2016-10-27 17:27 | disposition home or self-care (01) ==
LOC: EC 11:41
DX: S62.102A Fracture of unspecified carpal bone, left wrist, initial encounter for closed fracture (principal); E11.65 Type 2 diabetes mellitus with hyperglycemia; M25.512 Pain in left shoulder; M25.552 Pain in left hip; M25.562 Pain in left knee; R41.82 Altered mental status, unspecified; J44.9 Chronic obstructive pulmonary disease, unspecified; I11.0 Hypertensive heart disease with heart failure; I50.9 Heart failure, unspecified; E78.5 Hyperlipidemia, unspecified; I10 Essential (primary) hypertension; I25.2 Old myocardial infarction; E07.9 Disorder of thyroid, unspecified; D64.9 Anemia, unspecified; N19 Unspecified kidney failure; E11.42 Type 2 diabetes mellitus with diabetic polyneuropathy; F31.9 Bipolar disorder, unspecified; F41.9 Anxiety disorder, unspecified; F17.200 Nicotine dependence, unspecified, uncomplicated; Z86.73 Personal history of transient ischemic attack (TIA), and cerebral infarction without residual deficits; Z79.51 Long term (current) use of inhaled steroids; Z79.4 Long term (current) use of insulin; Z79.82 Long term (current) use of aspirin; Z79.899 Other long term (current) drug therapy; Z88.0 Allergy status to penicillin; Z88.5 Allergy status to narcotic agent; Z88.8 Allergy status to other drugs, medicaments and biological substances; Z91.030 Bee allergy status; Z88.1 Allergy status to other antibiotic agents; W19.XXXA Unspecified fall, initial encounter
CPT/HCPCS: 29125; 36415; 70450; 71020; 73502; 80053; 80306; 81001; 82550; 82553; 82803; 84484; 85025; 85610; 85730; 87040; 87086; 93005; 96360; 99285

== ENCOUNTER 2017-04-26 00:23 | Observation (INO) | payer OTHER ==
[2017-04-26 00:41] LABS: Glucose,Whole Blood 220 mg/dL (75-99)
[2017-04-26] MEDS ORDERED: SODIUM CHLORIDE 0.9% 1,000 ML IV STA (01:08)
[2017-04-26 01:18] LABS: Basophils % (A) 1 %; Eosinophils # (A) 0.1 k/uL (0-0.7); Eosinophils % (A) 1 %; HGB 10.3 gm/dL (11.4-16.0); Lymphocytes # (A) 1.7 k/uL (1.0-4.8); Lymphocytes % (A) 38 %; MCH 30.8 pg (25.0-35.0); MCHC 32.1 g/dL (31.0-37.0); Mean Platelet Volume 8.7; Monocytes # (A) 0.4 k/uL (0-1.0); Monocytes % (A) 8 %; Neutrophils # (A) 2.3 k/uL (1.3-7.7); Neutrophils % (A) 51 %; Platelet Count 166 k/uL (150-450); RBC 3.33 m/uL (3.80-5.40); RDW 13.8 % (11.5-15.5); WBC 4.5 k/uL (3.8-10.6)
[2017-04-26 01:27] LABS: Calcium 9.3 mg/dL (8.4-10.2); Total Bilirubin 0.4 mg/dL (0.2-1.3)
[2017-04-26 01:35] LABS: Albumin 3.6 g/dL (3.5-5.0); Potassium 4.8 mmol/L (3.5-5.1); Total Protein 6.5 g/dL (6.3-8.2)
[2017-04-26 01:36] LABS: D-Dimer 0.47 mg/L FEU (<0.60); Magnesium 2.1 mg/dL (1.6-2.3); Partial Thromboplastin Time 22.1 sec (22.0-30.0); Prothrombin Time 9.8 sec (9.0-12.0)
[2017-04-26 01:41] LABS: Creatine Kinase 58 U/L (30-135)
[2017-04-26 01:54] LABS: Creatine Kinase MB 1.3 ng/mL (0.0-2.4); Troponin I <0.012 ng/mL (0.000-0.034)
--- NOTE | 2017-04-26 01:54 | CT ---
EXAMINATION TYPE: CT brain wo con DATE OF EXAM: 04/26/2017 COMPARISON: 10/27/2016 HISTORY: Prior on synapse, syncope tonight, history of CVA with left sided neuro deficits CT DLP: DLP:[id number] mGycm Automated exposure control for dose reduction was used. FINDINGS: There is extensive hypodensity in the right cerebral hemisphere involving the frontal temporal and pa rietal lobes related to old infarct. There is no midline shift. There is no sign of intracranial hemo rrhage. The calvarium is intact. IMPRESSION: OLD LARGE RIGHT-SIDED ANTERIOR CEREBRAL AND MIDDLE CEREBRAL ARTERY INFARCT. NO ACUTE INTRACRANIAL ABN ORMALITY. NO CHANGE.
--- NOTE | 2017-04-26 02:17 | XR ---
EXAMINATION TYPE: XR chest 2V DATE OF EXAM: 04/26/2017 COMPARISON: 10/27/2016 HISTORY: Syncope TECHNIQUE: Frontal and lateral views of the chest are obtained. FINDINGS: Heart and mediastinum are normal. Lungs are clear. Diaphragm is normal. Bony thorax appear s normal. There are chest leads. IMPRESSION: Normal chest. There is clearing of the mild congestion and pleural reaction compared to old exam.
--- NOTE | 2017-04-26 02:21 | XR ---
EXAMINATION TYPE: XR KUB DATE OF EXAM: 04/26/2017 COMPARISON: 11/24/2012 HISTORY: Abdominal pain TECHNIQUE: Single view FINDINGS: There is no sign of intestinal obstruction or pneumoperitoneum. There are phleboliths in th e pelvis. I see no pathologic calcifications over the kidneys. There is no evidence of a mass. IMPRESSION: Nonacute abdomen.
[2017-04-26 03:51] LABS: Appearance,Urine Clear (Clear); Bilirubin,Urine Negative (Negative); Blood,Urine Negative (Negative); Color,Urine Yellow; Glucose,Urine (UA) 4+ (Negative); Ketones,Urine Negative (Negative); Leukocyte Esterase,Urine Negative (Negative); Nitrite,Urine Negative (Negative); Protein,Urine Negative (Negative); Specific Gravity,Urine 1.018 (1.001-1.035); Urobilinogen,Urine <2.0 mg/dL (<2.0)
--- NOTE | 2017-04-26 03:55 | ED ---
Dizziness HPI - General Chief Complaint: Syncope Stated Complaint: syncope Time Seen by Provider: 04/26/17 00:52 Source: patient, EMS, RN notes reviewed, old records reviewed Mode of arrival: EMS Limitations: no limitations - History of Present Illness Initial Comments: 56-year-old female with a history of stroke presents emergency Department with syncopal episode. She's had multiple episodes of diarrhea today, as well as been having high blood sugars. Patient's caregiver reports that they took her to the bathroom, and when she stood up after having multiple bowel movements she passed out.. The patient was passed out for 3-4 minutes. Patient's caregiver reports that her eyes seem to "flicker". Patient caregiver called EMS and they brought her here shortly afterwards. Patient reports emergency department alert and oriented. Complains of a minor headache, some lower abdominal cramping, and paresthesias in her left arm. 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 Patient denies any recent fever, chills, shortness of breath, chest pain, back pain, abdominal pain, nausea vomiting, numbness or tingling, dysuria or hematuria, constipation or diarrhea, headaches or visual changes, or any other current symptoms - Related Data Home Medications Medication Instructions Recorded Confirmed Nitroglycerin Sl Tabs [Nitrostat] 0.4 mg SUBLINGUAL Q5M PRN 06/14/14 02/16/17 Albuterol Inhaler [Ventolin Hfa 2 puff INHALATION RT-Q6H PRN 07/19/15 02/16/17 Inhaler] Aspirin EC [Ecotrin Low Dose] 81 mg PO DAILY 07/19/15 02/16/17 Atorvastatin [Lipitor] 20 mg PO HS 07/19/15 02/16/17 Citalopram Hydrobromide [CeleXA] 20 mg PO DAILY 07/19/15 02/16/17 Famotidine [Pepcid] 20 mg PO BID 07/19/15 02/16/17 Metoclopramide [Reglan] 5 mg PO AC-TID 07/19/15 02/16/17 Valproic Acid [Depakene] 250 mg PO DAILY 07/19/15 02/16/17 Budesonide-Formot 160-4.5 Mcg 2 puff INHALATION RT-BID 03/05/16 02/16/17 [Symbicort 160-4.5 Mcg Inhaler] Ergocalciferol [Vitamin D2 50,000 unit PO SA 03/05/16 02/16/17 (DRISDOL)] Ascorbic Acid [Vitamin C] 500 mg PO DAILY 09/21/16 02/16/17 HYDROcodone/APAP 10-325MG [[place] 1 tab PO Q6H PRN 10/03/16 02/16/17 10-325] DULoxetine HCL [Cymbalta] 60 mg PO DAILY 02/16/17 02/16/17 Ferrous Sulfate [Iron (65 MG 325 mg PO DAILY 02/16/17 02/16/17 Elemental)] Insulin Glargine [Lantus] 22 unit SQ HS 02/16/17 02/16/17 Insulin Lispro [humaLOG] 6 units SQ AC-TID 02/16/17 02/16/17 ALPRAZolam [Xanax] 1 mg PO Q8HR 02/19/17 02/19/17 Allergies Allergy/AdvReac Type Severity Reaction Status Date / Time Barbiturates Allergy Rash/Hives Verified 04/26/17 00:32 cephalexin monohydrate Allergy Rash/Hives Verified 04/26/17 00:32 [From Keflex] morphine Allergy Rash/Hives Verified 04/26/17 00:32 Penicillins Allergy Rash/Hives Verified 04/26/17 00:32 phenobarbital Allergy Swelling Verified 04/26/17 00:32 venom-honey bee Allergy Swelling Verified 04/26/17 00:32 [bee venom (honey bee)] amlodipine besylate AdvReac Vomiting Verified 04/26/17 00:32 [From [facility]] Review of Systems ROS Statement: Those systems with pertinent positive or pertinent negative responses have been documented in the HPI. ROS Other: All systems not noted in ROS Statement are negative. Past Medical History Past Medical History: Chest Pain / Angina, Heart Failure, COPD, CVA/TIA, Diabetes Mellitus, Deep Vein Thrombosis (DVT), Eye Disorder, GERD/Reflux, Hyperlipidemia, Hypertension, Myocardial Infarction ([place]), Thyroid Disorder Additional Past Medical History / Comment(s): HX OF CVA X3 (LAST 11/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 [place] 2011. DVT RT AXILLA. RENAL FAILURE. LOW THYROID, PERIPHERAL NEUROPATHY HANDS & FEET. ANEMIA. HX OF DKA. USES W/ C. CONSTIPATION, ESOPHAGITIS. EPIGLOTITIS. HEADACHES SINCE CVA, uses a wheelchair. RETINOPATHY SHIVA EYES. HX RT TOE INFECTION- GANGRENE, HAD AMP. Last Myocardial Infarction Date:: 2011 History of Any Multi-Drug Resistant Organisms: MRSA Date of last positivie culture/infection: 02/17/2013 MDRO Source:: Right Foot Past Surgical History: Appendectomy, Section, Cholecystectomy, Heart Catheterization With Stent, Hysterectomy, Orthopedic Surgery Additional Past Surgical History / Comment(s): Amputation Rt 2ND Toe. C-S X3. EGD. Bronchoscopy. RT Arm Port Placed FOR AB RX; Removed. 6 CARDIAC STENTS. left shoulder bone removed Past Anesthesia/Blood Transfusion Reactions: No Reported Reaction Additional Past Anesthesia/Blood Transfusion Reaction / Comment(s): HX OF BLOOD TRANSFUSION- NO REACTION Date of Last Stent Placement:: July 2012 Past Psychological History: Anxiety, Bipolar, Depression Smoking Status: Current every day smoker Past Alcohol Use History: None Reported Past Drug Use History: None Reported - Past Family History Father Family Medical History: Unable to Obtain, Coronary Artery Disease (CAD), Diabetes Mellitus Mother Family Medical History: COPD General Exam - General Exam Comments Initial Comments: Frail-appearing 56-year-old female. No acute distress. Limitations: no limitations General appearance: alert, in no apparent distress Head exam: Present: atraumatic, normocephalic, normal inspection Eye exam: Present: normal appearance, PERRL, EOMI. Absent: scleral icterus, conjunctival injection, periorbital swelling ENT exam: Present: normal exam, mucous membranes moist Neck exam: Present: normal inspection. Absent: tenderness, meningismus, lymphadenopathy Respiratory exam: Present: normal lung sounds bilaterally. Absent: respiratory distress, wheezes, rales, rhonchi, stridor Cardiovascular Exam: Present: regular rate, normal rhythm, normal heart sounds. Absent: systolic murmur, diastolic murmur, rubs, gallop, clicks GI/Abdominal exam: Present: soft, normal bowel sounds. Absent: distended, tenderness, guarding, rebound, rigid Extremities exam: Present: normal inspection, full ROM, normal capillary refill. Absent: tenderness, pedal edema, joint swelling, calf tenderness Back exam: Present: normal inspection Neurological exam: Present: alert, oriented X3, other ( has chronic paralysis of the left arm and leg.) Psychiatric exam: Present: normal affect, normal mood Skin exam: Present: warm Course Vital Signs 04/26/17 04/26/17 04/26/17 00:27 01:09 02:09 Temperature 98.3 F Pulse Rate 87 83 73 Respiratory 18 18 18 Rate Blood Pressure 109/63 100/65 137/77 O2 Sat by Pulse 99 100 100 Oximetry 04/26/17 02:39 Temperature Pulse Rate 71 Respiratory 18 Rate Blood Pressure 148/66 O2 Sat by Pulse 100 Oximetry Medical Decision Making - Medical Decision Making 56-year-old female with history of strokes presents emergency Department with syncopal episode when getting off the toilet, she was on the ground for approximately 3 minutes. Plans of a headache, and just general fatigue and weakness. Patient's labwork was reviewed, patient appears to be dehydrated with a elevation of BUN/creatinine compared to previous labs. Patient is given IV hydration today. Cardiac enzymes were within normal limits, EKG was also normal. Chest x-ray abdominal x-ray showed no significant abnormalities. At this time discussed with Dr. Pak, Vaniomet the patient to observation for IV hydration and monitoring. Family understands treatment plan. - Lab Data Result diagrams: 04/26/17 00:56 04/26/17 00:56 Lab Results 04/26/17 04/26/17 04/26/17 Range/Units 00:34 00:56 00:56 WBC 4.5 (3.8-10.6) k/uL RBC 3.33 L (3.80-5.40) m/uL Hgb 10.3 L (11.4-16.0) gm/dL Hct 32.0 L (34.0-46.0) % MCV 96.0 (80.0-100.0) fL MCH 30.8 (25.0-35.0) pg MCHC 32.1 (31.0-37.0) g/dL RDW 13.8 (11.5-15.5) % Plt Count 166 (150-450) k/uL Neutrophils % 51 % Lymphocytes % 38 % Monocytes % 8 % Eosinophils % 1 % Basophils % 1 % Neutrophils # 2.3 (1.3-7.7) k/uL Lymphocytes # 1.7 (1.0-4.8) k/uL Monocytes # 0.4 (0-1.0) k/uL Eosinophils # 0.1 (0-0.7) k/uL Basophils # 0.0 (0-0.2) k/uL PT (9.0-12.0) sec INR (<1.2) APTT (22.0-30.0) sec D-Dimer (<0.60) mg/L FEU Sodium (137-145) mmol/L Potassium (3.5-5.1) mmol/L Chloride (98-107) mmol/L Carbon Dioxide (22-30) mmol/L Anion Gap mmol/L BUN (7-17) mg/dL Creatinine (0.52-1.04) mg/dL Est GFR (MDRD) Af Amer (>60 ml/min/1.73 sqM) Est GFR (MDRD) Non-Af (>60 ml/min/1.73 sqM) Glucose (74-99) mg/dL POC Glucose (mg/dL) 220 H (75-99) mg/dL POC Glu Accounting Manager Cpa ID Shyla Blanchard Calcium (8.4-10.2) mg/dL Magnesium (1.6-2.3) mg/dL Total Bilirubin (0.2-1.3) mg/dL AST (14-36) U/L ALT (9-52) U/L Alkaline Phosphatase (38-126) U/L Total Creatine Kinase 58 (30-135) U/L CK-MB (CK-2) 1.3 (0.0-2.4) ng/mL CK-MB (CK-2) Rel Index 2.2 Troponin I <0.012 (0.000-0.034) ng/mL Total Protein (6.3-8.2) g/dL Albumin (3.5-5.0) g/dL 04/26/17 04/26/17 Range/Units 00:56 00:56 WBC (3.8-10.6) k/uL RBC (3.80-5.40) m/uL Hgb (11.4-16.0) gm/dL Hct (34.0-46.0) % MCV (80.0-100.0) fL MCH (25.0-35.0) pg MCHC (31.0-37.0) g/dL RDW (11.5-15.5) % Plt Count (150-450) k/uL Neutrophils % % Lymphocytes % % Monocytes % % Eosinophils % % Basophils % % Neutrophils # (1.3-7.7) k/uL Lymphocytes # (1.0-4.8) k/uL Monocytes # (0-1.0) k/uL Eosinophils # (0-0.7) k/uL Basophils # (0-0.2) k/uL PT 9.8 (9.0-12.0) sec INR 1.0 (<1.2) APTT 22.1 (22.0-30.0) sec D-Dimer 0.47 (<0.60) mg/L FEU Sodium 140 (137-145) mmol/L Potassium 4.8 (3.5-5.1) mmol/L Chloride 103 (98-107) mmol/L Carbon Dioxide 31 H (22-30) mmol/L Anion Gap 6 mmol/L BUN 32 H (7-17) mg/dL Creatinine 1.80 H (0.52-1.04) mg/dL Est GFR (MDRD) Af Amer 35 (>60 ml/min/1.73 sqM) Est GFR (MDRD) Non-Af 29 (>60 ml/min/1.73 sqM) Glucose 140 H (74-99) mg/dL POC Glucose (mg/dL) (75-99) mg/dL POC Glu Accounting Manager Cpa ID Calcium 9.3 (8.4-10.2) mg/dL Magnesium 2.1 (1.6-2.3) mg/dL Total Bilirubin 0.4 (0.2-1.3) mg/dL AST 30 (14-36) U/L ALT 36 (9-52) U/L Alkaline Phosphatase 53 (38-126) U/L Total Creatine Kinase (30-135) U/L CK-MB (CK-2) (0.0-2.4) ng/mL CK-MB (CK-2) Rel Index Troponin I (0.000-0.034) ng/mL Total Protein 6.5 (6.3-8.2) g/dL Albumin 3.6 (3.5-5.0) g/dL 04/26/17 03:54 is sinus rhythm, ventricular rate of 87 beats were minute period. Interval 1:30 milliseconds. QRS ration 76 most seconds. QT QTc is 358/4:30 milliseconds. - Radiology Data Radiology results: report reviewed Chest x-ray and KUB are negative for any acute process. Disposition Clinical Impression: Dehydration, Hyperglycemia, CORTES (acute kidney injury), Diarrhea Disposition: ADMITTED IP TO THIS HOSP Condition: Stable Referrals: Sherlyn Chen MD [Primary Care Provider] - 1-2 days Time of Disposition: 03:55
[2017-04-26] MEDS ORDERED: NALOXONE 0.4 MG/ML 1 ML VIAL IV PRN (04:01)
[2017-04-26] MEDS ORDERED: HYDROmorphone 0.5 MG/0.5 ML SYRINGE IVP PRN (04:01)
[2017-04-26] MEDS ORDERED: ACETAMINOPHEN TAB 325 MG TAB PO PRN (04:01)
[2017-04-26] MEDS ORDERED: ONDANSETRON 4 MG/2 ML VIAL IVP PRN (04:01)
[2017-04-26] MEDS ORDERED: HYDROmorphone 2 MG/ML 1 ML SYRINGE IVP PRN (04:01)
[2017-04-26] MEDS ORDERED: LOPERAMIDE 2 MG CAP PO PRN (04:01)
[2017-04-26] MEDS ORDERED: IBUPROFEN 400 MG TAB PO PRN (04:01)
[2017-04-26] MEDS ORDERED: ALBUTEROL NEBULIZED 2.5 MG/3 ML INHALATION PRN (04:18)
[2017-04-26] MEDS ORDERED: NITROGLYCERIN SL TABS 0.4 MG TAB SUBLINGUAL PRN (04:18)
[2017-04-26] MEDS: SODIUM CHLORIDE 0.9% 1,000 ML IV SCH (05:03)
[2017-04-26 06:41] LABS: Glucose,Whole Blood 47 mg/dL (75-99)
[2017-04-26 06:53] LABS: Glucose,Whole Blood 68 mg/dL (75-99)
[2017-04-26 08:37] LABS: Glucose,Whole Blood 213 mg/dL (75-99)
[2017-04-26] MEDS: ASPIRIN 81 MG PO SCH (08:42)
[2017-04-26] MEDS: DULoxetine HCL 60 MG CAPSULE.DR PO SCH (08:42)
[2017-04-26] MEDS: METOCLOPRAMIDE 5 MG TAB PO SCH ×3 (08:42→18:10)
[2017-04-26] MEDS: CITALOPRAM HYDROBROMIDE 20 MG TAB PO SCH (08:42)
[2017-04-26] MEDS: VALPROIC ACID ORAL SOLN 250 MG/5 ML CUP PO SCH (08:42)
[2017-04-26] MEDS ORDERED: FAMOTIDINE 20 MG TAB PO SCH (09:00)
[2017-04-26] MEDS ORDERED: PANTOPRAZOLE 40 MG/10 ML VIAL IV SCH (09:00)
[2017-04-26] MEDS ORDERED: HYDROcodone/APAP 10-325MG 1 EACH TAB PO PRN (10:08)
--- NOTE | 2017-04-26 10:29 | P.HPIM ---
History of Present Illness H&P Date: 04/26/17 Chief Complaint: Passed out This is a 56-year-old female with a known past medical history of CVA with left- sided paralysis, diabetes mellitus, congestive heart failure, previous DVT of the lower extremity, hypertension, hyperlipidemia, hypothyroidism and bipolar. Patient's history was obtained from her caregiver. The caregiver reports that Melva had been having multiple episodes of diarrhea on Wednesday. Yesterday she had no further episodes of diarrhea. Yesterday she was helping Melva get to the bathroom to urinate. She then finished urinating got up to stand with assistance and use of a wheelchair. She became dizzy and passed out. The caregiver reports that the patient passed out for about 3-4 minutes. Her eyelids were flickering open and closed. She called EMS and patient was brought into the emergency room. Patient's blood sugar at that time was in the 200s per caregiver. Caregiver also reports that the patient was having issues with severely elevated blood sugars in the 500s. She had been given extra insulin prior to the passing out episode. When she came to the floor this morning blood sugars had dropped down to 46. Blood sugars are now back up in the 200s. Patient does have a history of fluctuating blood sugars. Patient also had evidence of acute kidney injury with a creatinine of 1.80. Caregiver does report that patient had been eating and drinking. But again did have a day of multiple episodes of diarrhea. D-dimer was reported normal at 0.47. Computed tomography scan the brain shows old stroke on the right side anterior cerebral and middle cerebral artery. No acute intracranial abnormality. No change. KUB x-ray and chest x-ray were both negative. EKG showing a normal sinus rhythm. Troponin was negative. Patient is very sleepy during my exam. However she is arousable. Patient has not slept that she was in the ER all night. Xanax was held this morning. Also will be discontinuing the Dilaudid. Patient did receive a dose of IV Dilaudid due to a headache. This could be contributing to her sleepiness. She denies any chest pain or shortness of breath. Denies any nausea or vomiting. Denies any burning with urination. Past Medical History Past Medical History: Chest Pain / Angina, Heart Failure, COPD, CVA/TIA, Diabetes Mellitus, Deep Vein Thrombosis (DVT), Eye Disorder, GERD/Reflux, Hyperlipidemia, Hypertension, Myocardial Infarction ([place]), Thyroid Disorder Additional Past Medical History / Comment(s): HX OF CVA X3 (LAST 11/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 [place] 2011. DVT RT AXILLA. RENAL FAILURE. LOW THYROID, PERIPHERAL NEUROPATHY HANDS & FEET. ANEMIA. HX OF DKA. USES W/ C. CONSTIPATION, ESOPHAGITIS. EPIGLOTITIS. HEADACHES SINCE CVA. RETINOPATHY SHIVA EYES. HX RT TOE INFECTION- GANGRENE, HAD AMP. Last Myocardial Infarction Date:: 2011 History of Any Multi-Drug Resistant Organisms: MRSA Date of last positivie culture/infection: 02/17/2013 MDRO Source:: Right Foot Past Surgical History: Appendectomy, Section, Cholecystectomy, Heart Catheterization With Stent, Hysterectomy, Orthopedic Surgery Additional Past Surgical History / Comment(s): Amputation Rt 2ND Toe. C-S X3. EGD. Bronchoscopy. RT Arm Port Placed FOR AB RX; Removed. 6 CARDIAC STENTS. left shoulder bone removed Past Anesthesia/Blood Transfusion Reactions: No Reported Reaction Additional Past Anesthesia/Blood Transfusion Reaction / Comment(s): HX OF BLOOD TRANSFUSION- NO REACTION Date of Last Stent Placement:: July 2012 Past Psychological History: Anxiety, Bipolar, Depression Additional Psychological History / Comment(s): PT HAS A RESEARCH PROGRAM ASSISTANT-DOMINIQUE. DOMINIQUE STATED PT UNABLE TO AMBULATE(LT SIDE WAS AFFECTED BY STROKE) USES A W/C. Smoking Status: Former smoker Past Alcohol Use History: None Reported Additional Past Alcohol Use History / Comment(s): Patient states she is using a vaper cigarettes. She has a 24-hour caregiver that lives with her. She is wheelchair bound. Past Drug Use History: None Reported - Past Family History Father Family Medical History: Unable to Obtain, Coronary Artery Disease (CAD), Diabetes Mellitus Mother Family Medical History: COPD Medications and Allergies Home Medications Medication Instructions Recorded Confirmed Type Nitroglycerin Sl Tabs [Nitrostat] 0.4 mg SUBLINGUAL Q5M PRN 06/14/14 04/26/17 History Albuterol Inhaler [Ventolin Hfa 2 puff INHALATION RT-Q6H PRN 07/19/15 04/26/17 History Inhaler] Aspirin EC [Ecotrin Low Dose] 81 mg PO DAILY 07/19/15 04/26/17 History Atorvastatin [Lipitor] 20 mg PO HS 07/19/15 04/26/17 History Citalopram Hydrobromide [CeleXA] 20 mg PO DAILY 07/19/15 04/26/17 History Famotidine [Pepcid] 20 mg PO BID 07/19/15 04/26/17 History Metoclopramide [Reglan] 5 mg PO AC-TID 07/19/15 04/26/17 History Valproic Acid [Depakene] 250 mg PO DAILY 07/19/15 04/26/17 History Budesonide-Formot 160-4.5 Mcg 2 puff INHALATION RT-BID 03/05/16 04/26/17 History [Symbicort 160-4.5 Mcg Inhaler] Ergocalciferol [Vitamin D2 50,000 unit PO SA 03/05/16 04/26/17 History (DRISDOL)] Ascorbic Acid [Vitamin C] 500 mg PO DAILY 09/21/16 04/26/17 History HYDROcodone/APAP 10-325MG [[place] 1 tab PO Q6H PRN 10/03/16 04/26/17 History 10-325] DULoxetine HCL [Cymbalta] 60 mg PO DAILY 02/16/17 04/26/17 History Ferrous Sulfate [Iron (65 MG 325 mg PO DAILY 02/16/17 04/26/17 History Elemental)] Insulin Glargine [Lantus] 22 unit SQ HS 02/16/17 04/26/17 History Insulin Lispro [humaLOG] 6 units SQ AC-TID 02/16/17 04/26/17 History ALPRAZolam [Xanax] 1 mg PO Q8HR 02/19/17 04/26/17 History Allergies Allergy/AdvReac Type Severity Reaction Status Date / Time Barbiturates Allergy Rash/Hives Verified 04/26/17 07:55 cephalexin monohydrate Allergy Rash/Hives Verified 04/26/17 07:55 [From Keflex] morphine Allergy Rash/Hives Verified 04/26/17 07:55 Penicillins Allergy Rash/Hives Verified 04/26/17 07:55 phenobarbital Allergy Swelling Verified 04/26/17 07:55 venom-honey bee Allergy Swelling Verified 04/26/17 07:55 [bee venom (honey bee)] amlodipine besylate AdvReac Vomiting Verified 04/26/17 07:55 [From [facility]] Physical Exam Vitals: Vital Signs Temp Pulse Pulse Resp BP BP Pulse Ox 04/26/17 08:35 106/52 04/26/17 07:56 97.4 F L 66 16 83/46 100 04/26/17 06:16 18 04/26/17 05:57 97.9 F 67 18 131/60 100 04/26/17 05:04 97.9 F 74 18 147/68 100 04/26/17 04:09 75 18 151/74 100 04/26/17 03:39 71 18 150/75 100 04/26/17 03:09 74 18 139/80 100 04/26/17 02:39 71 18 148/66 100 04/26/17 02:09 73 18 137/77 100 04/26/17 01:09 83 18 100/65 100 04/26/17 00:27 98.3 F 87 18 109/63 99 Intake and Output 04/25/17 04/26/17 04/26/17 22:59 06:59 14:59 Other: Voiding Method Diaper Incontinent Weight 81.647 kg Head normocephalic Neck supple Lungs clear to auscultation bilaterally no wheezing or crackles Heart regular rate and rhythm S1-S2, no rub or gallop Abdomen is soft nontender nondistended positive bowel sounds no hepatosplenomegaly Extremities no edema Neuro left-sided paralysis. Patient sleepy but arousable. No evidence of distress Results CBC & Chem 7: 04/26/17 00:56 04/26/17 00:56 Labs: Abnormal Lab Results - Last 24 Hours (Table) 04/26/17 04/26/17 04/26/17 Range/Units 00:34 00:56 00:56 RBC 3.33 L (3.80-5.40) m/uL Hgb 10.3 L (11.4-16.0) gm/dL Hct 32.0 L (34.0-46.0) % Carbon Dioxide 31 H (22-30) mmol/L BUN 32 H (7-17) mg/dL Creatinine 1.80 H (0.52-1.04) mg/dL Glucose 140 H (74-99) mg/dL POC Glucose (mg/dL) 220 H (75-99) mg/dL Urine Glucose (UA) (Negative) 04/26/17 04/26/17 04/26/17 Range/Units 03:35 06:32 06:50 RBC (3.80-5.40) m/uL Hgb (11.4-16.0) gm/dL Hct (34.0-46.0) % Carbon Dioxide (22-30) mmol/L BUN (7-17) mg/dL Creatinine (0.52-1.04) mg/dL Glucose (74-99) mg/dL POC Glucose (mg/dL) 47 L 68 L (75-99) mg/dL Urine Glucose (UA) 4+ H (Negative) 04/26/17 Range/Units 08:33 RBC (3.80-5.40) m/uL Hgb (11.4-16.0) gm/dL Hct (34.0-46.0) % Carbon Dioxide (22-30) mmol/L BUN (7-17) mg/dL Creatinine (0.52-1.04) mg/dL Glucose (74-99) mg/dL POC Glucose (mg/dL) 213 H (75-99) mg/dL Urine Glucose (UA) (Negative) Thrombosis Risk Factor Assmnt - Choose All That Apply Any of the Below Risk Factors Present?: Yes Each Factor Represents 1 point: Abnormal pulmonary function (COPD), Age 41-60 years Other Risk Factors: Yes Each Risk Factor Represents 3 Points: History of DVT/PE Other congenital or acquired thrombophilia - If yes, enter type in comment: No Thrombosis Risk Factor Assessment Total Risk Factor Score: 5 Thrombosis Risk Factor Assessment Level: High Risk Assessment and Plan Assessment: 1. Syncope: Monitor for episodes of hypoglycemia. Check for orthostatic hypotension. Check echo to. Check carotid Doppler. EKG showing a normal sinus rhythm. Continue telemetry monitoring. Symptoms also may have been related to dehydration. We'll continue with IV fluids. 2. Diarrhea prior to admission. Now resolved. 3. Acute kidney injury with known chronic kidney disease, stage III. Continue IV fluids. Fluids were decreased down to 50 mL an hour. Repeat labs in a.m. 4. History of stroke with left-sided paralysis 5. Insulin-dependent diabetes mellitus: Fluctuating blood sugars. Patient had hypoglycemia when she came to the observation floor likely related to the extra insulin she received at home for her elevated blood sugars. Resume her Lantus. Continue sliding scale. Continue to monitor. Blood sugar now in the 200s 6. History of coronary artery disease with previous myocardial infarction 7. History of hypertension continue to monitor. She did have one episode of hypotension. Now improved. 8. Iron deficiency anemia: Continue with iron supplement 9. Hyperlipidemia continue Lipitor GI prophylaxis Pepcid and DVT prophylaxis subcu heparin Time with Patient: Greater than 30 (Greater than 50% of the total time spent in counseling and coordination of care.I performed an examination of the patient and discussed their management with the physician Jewel Waxer. I have reviewed the Physician Jewel Waxer's notes and agree with the documented findings and plan of care)
[2017-04-26 12:08] LABS: Glucose,Whole Blood 429 mg/dL (75-99)
[2017-04-26] MEDS: ALPRAZolam 0.5 MG TAB PO SCH ×2 (12:21→17:13)
[2017-04-26] MEDS: ASCORBIC ACID 500 MG TAB PO SCH (12:27)
[2017-04-26] MEDS: FERROUS SULFATE 325 MG TAB PO SCH (12:28)
[2017-04-26 12:52] LABS: Hemoglobin A1C 9.5 % (4.0-6.0)
[2017-04-26] MEDS: INSULIN ASPART 100 UNIT/ML 1 ML 10 ML VIAL SQ SCH ×3 (13:58→21:51)
[2017-04-26 15:23] VITALS: BMI 32.9
[2017-04-26] MEDS: SYMBICORT 160-4.5 MCG INHALER INHALATION SCH ×2 (15:56→19:32)
--- NOTE | 2017-04-26 16:11 | US ---
EXAMINATION TYPE: US carotid duplex BILAT DATE OF EXAM: 04/26/2017 COMPARISON: US 12/07/2014 CLINICAL HISTORY: 56-year-old female with syncope. Patient could not stay awake during exam, could n ot hold head up or turn her head making the exam extremely difficult and limited Carotid duplex ultrasound examination. In direct Doppler criteria was utilized. FINDINGS: There is moderate atherosclerotic change at both bifurcations. The right ICA appears occluded. Increa sed velocities in the left mid ICA. EXAM MEASUREMENTS: RIGHT: Peak Systolic Velocity (PSV) cm/sec ----- Right CCA: 37.3 ----- Right ICA: 0.0 ----- Right ECA: 104.3 ICA/CCA ratio: 0.0 RIGHT: End Diastole cm/sec ----- Right CCA: 4.3 ----- Right ICA: 0.0 ----- Right ECA: 11.4 LEFT: Peak Systolic Velocity (PSV) cm/sec ----- Left CCA: 74.1 ----- Left ICA: 150.8 ----- Left ECA: 127.6 ICA/CCA ratio: 2.0 LEFT: End Diastole cm/sec ----- Left CCA: 17.6 ----- Left ICA: 41.6 ----- Left ECA: 9.1 VERTEBRALS (direction of flow): Right Vertebral: Antegrade Left Vertebral: Antegrade Rhythm: Normal IMPRESSION: 1. Subtotal or complete occlusion of the right ICA. CT angiography can further assess. 2. Measurements suggest a moderate (50-69%) stenosis of the left ICA. Criteria for Assigning % of Stenosis / Diameter reduction (Estimation based on the indirect measurements of the internal carotid artery velocities (ICA PSV). 1. Normal (no stenosis)=ICA PSV < 125 cm/s: ratio < 2.0: ICA EDV<40 cm/s. 2. Less than 50% stenosis=ICA PSV < 125 cm/s: ratio < 2.0: ICA EDV<40 cm/s. 3. 50 to 69% stenosis=ICA PSV of 125 to 230 cm/s: ration 2.0 ? 4.0: ICA EDV 40-100 cm/s. 4. Greater than 70% stenosis to near occlusion= ICA PSV > 230 cm/s: ratio > 4.0: ICA EDV > 100 cm/s. 5. Near occlusion= ICA PSV velocities may be low or undetectable: variable ratio and ICA EDV. 6. Total occlusion=unable to detect flow.
[2017-04-26 17:03] LABS: Glucose,Whole Blood 316 mg/dL (75-99)
[2017-04-26] MEDS ORDERED: RX INFO: IV CONTRAST WAS GIVEN 1 EACH MISC MISCELLANE PRN (20:31)
[2017-04-26 20:38] LABS: Glucose,Whole Blood 221 mg/dL (75-99)
[2017-04-26] MEDS ORDERED: INSULIN DETEMIR 100 UNIT/ML 10 ML VIAL SQ SCH (21:00)
[2017-04-26] MEDS ORDERED: ATORVASTATIN 20 MG TAB PO SCH (21:00)
[2017-04-26] MEDS: HEPARIN SODIUM,PORCINE 5,000 UNIT/ML 1 ML VIAL SQ SCH (21:51)
[2017-04-26 21:52] VITALS: RESP 18
[2017-04-27] MEDS: ALPRAZolam 0.5 MG TAB PO SCH ×3 (01:15→18:05)
[2017-04-27 06:57] LABS: Glucose,Whole Blood 49 mg/dL (75-99)
[2017-04-27] MEDS ORDERED: DEXTROSE 10 % IN WATER 250 ML IV STA (07:00)
[2017-04-27 07:14] LABS: Glucose,Whole Blood 209 mg/dL (75-99)
[2017-04-27 07:15] LABS: HCT 33.1 % (34.0-46.0); HGB 10.1 gm/dL (11.4-16.0); Hypochromasia Slight; MCH 30.1 pg (25.0-35.0); MCHC 30.7 g/dL (31.0-37.0); MCV 98.2 fL (80.0-100.0); Mean Platelet Volume 7.5; Platelet Count 196 k/uL (150-450); RBC 3.37 m/uL (3.80-5.40); RDW 12.8 % (11.5-15.5); WBC 4.1 k/uL (3.8-10.6)
[2017-04-27 07:31] LABS: ALT 49 U/L (9-52); AST 31 U/L (14-36); Albumin 3.2 g/dL (3.5-5.0); Alkaline Phosphatase 60 U/L (38-126); Anion Gap 6 mmol/L; Blood Urea Nitrogen 25 mg/dL (7-17); Calcium 9.2 mg/dL (8.4-10.2); Carbon Dioxide 26 mmol/L (22-30); Chloride 112 mmol/L (98-107); Potassium 4.1 mmol/L (3.5-5.1); Sodium 144 mmol/L (137-145); Total Bilirubin 0.2 mg/dL (0.2-1.3); Total Protein 6.1 g/dL (6.3-8.2)
[2017-04-27 07:39] LABS: Glucose 45 mg/dL (74-99)
[2017-04-27 08:09] LABS: Lymphocytes # (M) 2.21 k/uL (1.0-4.8); Monocytes # (M) 0.29 k/uL (0-1.0); Neutrophils % (M) 39 %; Nucleated Red Blood Cells 0 /100 WBC (0-0); Total Cells Counted 100
[2017-04-27] MEDS ORDERED: FAMOTIDINE 20 MG TAB PO SCH (09:00)
--- NOTE | 2017-04-27 09:12 | CONS ---
CONSULTATION This is 56-year-old female, she has been admitted to [facility] with history of dizzy spells at home. She was brought into the hospital. Patient had a carotid ultrasound, which showed right side total occlusion, left side 50% to 69%. Patient had a history of CVA 3 years ago. Affected her left side with fixed paralysis. Patient has history of congestive heart failure, diabetes mellitus, history of coronary stent, history of hypertension. PHYSICAL EXAMINATION: Patient was seen in her room. Patient's history is obtained from the care caregivers. Neck is supple. No bruit appreciated. Chest is clear to auscultation. First and second sounds are normal. Abdomen is soft. Brachial and radial femoral pulses present. Patient affixed (left side affecting the arm and leg.) Ultrasound showed right side totally occluded, left side 50% to 69%. At this point, patient had a right-side total occlusion is from the previous stroke most likely and she has a fixed stroke, left-sided 50% to 69%, history of dizziness but no history of emesis and any new motor deficit. The right side is totally occluded. There is no indication for surgical intervention. We will follow this patient closely in my office in a month. Thank you very much. MMODL / IJN: [id number] /
[2017-04-27] MEDS: SYMBICORT 160-4.5 MCG INHALER INHALATION SCH ×2 (09:21→20:37)
[2017-04-27] MEDS: SODIUM CHLORIDE 0.9% 1,000 ML IV SCH (09:37)
--- NOTE | 2017-04-27 11:30 | CONS ---
CONSULTATION DATE OF CONSULTATION: 04/26/2017. CHIEF COMPLAINT: Syncope. HISTORY OF PRESENT ILLNESS: The patient is a pleasant 56-year-old female, who was being evaluated today on 04/26/2017 by the Neurology Service per the request of Dr. Chen for syncope. The patient has history of ischemic stroke with residual left hemiparesis. She does have a caregiver at home. The patient has been having diarrhea for several days. According to the caregiver, the patient was on the bedside commode and when she went to stand up, she became lightheaded and passed out. If she has been afebrile but has been having episodes of hypotension with one of the blood pressure reading at 83/46. She was started on IV hydration and admitted for further workup and management. A CT scan of the brain was done, which showed old ischemic stroke involving the right middle cerebral artery and anterior cerebral artery distribution. Her carotid Doppler showed evidence of possible complete occlusion of the right internal carotid artery and 50 to 69% occlusion of the left internal carotid artery. Her CBC showed anemia with a hemoglobin of 10.3 and hematocrit of 32%. Her comprehensive metabolic profile showed renal insufficiency with a BUN of 32 and creatinine of 1.8. Her cardiac enzymes were normal. Her hemoglobin A1c was elevated at 9.5, and her urinalysis showed proteinuria. According to the caregiver, the patient's diabetes has not been well controlled. Although she does have a good diabetic diet. At the time of my evaluation, the patient is lying in her bed and appears to be in no acute distress. She denies any recurrence of any dizziness or syncopal spells. PAST MEDICAL HISTORY: Stroke, chronic obstructive pulmonary disease, diabetes, history of deep venous thrombosis, gastroesophageal reflux disease, dyslipidemia, hypertension, history of myocardial infarction, hypothyroidism, history of right toe amputation, history of MRSA, appendectomy, , cholecystectomy, hysterectomy, orthopedic surgeries, anxiety disorder, depression, bipolar disorder. SOCIAL HISTORY: The patient is a former smoker. She denies any alcohol or drug use. She does have a caregiver that lives with her. FAMILY HISTORY: Positive for COPD, heart disease, and diabetes. HOME MEDICATIONS: Reviewed in the chart. ALLERGIES: BARBITURATES, KEFLEX, MORPHINE, PENICILLIN, PHENOBARBITAL, NORVASC, BEE VENOM. REVIEW OF SYSTEMS: CONSTITUTIONAL: Positive for fatigue. EYES: Positive for blurred vision. ENT: Negative. CARDIOVASCULAR: As mentioned above. NEUROLOGICAL: As mentioned above. RESPIRATORY: Positive for occasional shortness of breath. GASTROINTESTINAL: Positive for occasional heartburn and as mentioned above. GENITOURINARY: Negative. ENDOCRINE: As mentioned above. MUSCULOSKELETAL: Positive for occasional joint pain. DERMATOLOGICAL: Negative. PSYCHIATRIC: Positive for bipolar disorder, depression, and anxiety disorder. PHYSICAL EXAM: Vital signs show a temperature of 98.8, pulse 80, respirations 16, blood pressure 101/54. GENERAL APPEARANCE: The patient is a well-developed female, who appears to be in no acute distress. HEENT: Normocephalic, atraumatic, left facial droop is seen. NECK: Supple with no masses felt. CARDIOVASCULAR: Regular rate and rhythm. ABDOMEN: Nontender nondistended. EXTREMITIES: Showed no edema or clubbing. NEUROLOGICAL EXAM: The patient is awake and oriented x3. Speech and language are normal. Strength is 0/5 on the left upper extremity, 2/5 on the left lower extremity, and 5/5 on the right side. Sensory exam showed diminished light touch sensation on the left compared to the right. Cranial nerve testing showed left facial drooping. No seizure-like activity is seen. IMPRESSION: 1. Syncopal spell. 2. Dehydration. 3. History of ischemic stroke with residual left hemiparesis. 4. Uncontrolled diabetes. 5. Carotid stenosis. RECOMMENDATION: The patient did suffer a syncopal episode which was preceded by lightheadedness. She has been having diarrhea for a few days and is likely dehydrated, given her renal function test. Continue IV hydration as tolerated. I did review her CT scan of the brain which showed no changes when compared to her 10/27/2016 study. She was reassured from that standpoint. Due to her carotid Doppler findings, I will order a CT angiogram of the neck. I will repeat her chemistry panel in the morning to make sure her renal function has normalized before doing the CT angiogram. I will order an EEG. Continue DVT prophylaxis and GI prophylaxis. I also had a lengthy discussion with her caregiver regarding her uncontrolled diabetes. She will follow up further with Dr. Chen and possibly with Endocrinology if needed. Continue the rest of your current workup and management. I will continue to follow with you. Further recommendations to follow. Thank you, Dr. Chen, our for allowing me to participate in the care of your patient. If you have any questions, please feel free to contact me. MMTIAL / IJN: [id number] /
--- NOTE | 2017-04-27 11:59 | P.CRDCN ---
History of Present Illness Consult date: 04/27/17 History of present illness: Mrs. Jackson is a pleasant 56 year-old female with past medical history significant for inferior wall [place] requiring stent to RCA in 2006, diabetes mellitus, hypertension, dyslipidemia, CVA with residual left sided paralysis, COPD and neuropathy. She has seen Dr. Erickson in the office but not since 2012. She lives at home with a full-time caregiver. We have been asked to see her in consultation secondary to a possible syncopal episode. Per the caregiver she has been having diarrhea all day Wednesday and Wednesday. Yesterday she was on the toilet urinating and when attempting to stand and transfer back to the wheelchair she went limp and her eyes were fluttering. This last approximately 3 -4 minutes. She denies chest pain, shortness of breath, palpitations, dizziness or nausea/vomiting prior to this event. The caregiver lowered her to the floor and her blood sugar was found to be elevated greater than 500 and she administered insulin. Upon arrival to ED her blood sugar was 220. She has had two episodes of hyoglycemia since admission with sugar going into the 40's. At the time of my exam she continues to complain of ongoing dizziness with exertion or movement. Caregiver states she helped her to the bathroom again this morning and she complained of feeling dizzy. She denies chest pain, shortness of breath, nausea, vomiting, palpitations or diaphoresis. EKG reveals sinus mechanism with no acute ST or T-wave abnormalities. Cardiac enzymes negative x2, potassium 4.1, magnesium 2.1, TSH 3.65, Hgb 10.1, plt 196, BUN 25. Cr 0.91. improved from 1.8 on admission. Blood pressure 128/66 with heart rate 71. Orthostatics negative yesterday. Current cardiac medications include atorvastatin 20 mg and aspirin 81mg. Cath report from 2006 states she had in-stent restenosis of RCA 3 months after initial stent placement. Most recent echocardiogram on file from 01/2014 reveals preserved LV function with EF 55-60% with mild LVH, mild MR, mild TR, mild PH with RVSP 43 mmHg and mildly thickened mitral valve. Carotid ultrasound were reviewed. Review of Systems CONSTITUTIONAL: Denies fever. Denies chills. EYES: Denies blurred vision. Denies vision changes. Denies eye pain. EARS, NOSE, MOUTH & THROAT: Complains of intermittent headache, resolved. Denies sore throat. Denies ear pain. CARDIOVASCULAR: Denies chest pain. Denies shortness of breath. Denies orthopnea. Denies PND. Denies palpitations. RESPIRATORY: Denies cough. GASTROINTESTINAL: Denies abdominal pain. Complains of diarrhea, resolved. Denies constipation. Denies nausea. Denies vomiting. MUSCULOSKELETAL: Denies myalgias. INTEGUMENTARY: Denies pruitis. Denies rash. NEUROLOGIC: Complains of generalized weakness with intermittent episodes of tingling to the left arm. This is chronic and ongoing. Complains of exertional dizziness. PSYCHIATRIC: Denies anxiety. Denies depression. ENDOCRINE: Denies fatigue. Denies weight change. Denies polydipsia. Denies polyurina. GENITOURINARY: Denies burning, hematuria or urgency with micturation. HEMATOLOGIC: Denies history of anemia. Denies bleeding. Past Medical History Past Medical History: Chest Pain / Angina, Heart Failure, COPD, CVA/TIA, Diabetes Mellitus, Deep Vein Thrombosis (DVT), Eye Disorder, GERD/Reflux, Hyperlipidemia, Hypertension, Myocardial Infarction ([place]), Thyroid Disorder Additional Past Medical History / Comment(s): HX OF CVA X3 (LAST 11/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 [place] 2011. DVT RT AXILLA. RENAL FAILURE. LOW THYROID, PERIPHERAL NEUROPATHY HANDS & FEET. ANEMIA. HX OF DKA. USES W/ C. CONSTIPATION, ESOPHAGITIS. EPIGLOTITIS. HEADACHES SINCE CVA. RETINOPATHY SHIVA EYES. HX RT TOE INFECTION- GANGRENE, HAD AMP. Last Myocardial Infarction Date:: 2011 History of Any Multi-Drug Resistant Organisms: MRSA Date of last positivie culture/infection: 02/17/2013 MDRO Source:: Right Foot Past Surgical History: Appendectomy, Section, Cholecystectomy, Heart Catheterization With Stent, Hysterectomy, Orthopedic Surgery Additional Past Surgical History / Comment(s): Amputation Rt 2ND Toe. C-S X3. EGD. Bronchoscopy. RT Arm Port Placed FOR AB RX; Removed. 6 CARDIAC STENTS. left shoulder bone removed Past Anesthesia/Blood Transfusion Reactions: No Reported Reaction Additional Past Anesthesia/Blood Transfusion Reaction / Comment(s): HX OF BLOOD TRANSFUSION- NO REACTION Date of Last Stent Placement:: July 2012 Past Psychological History: Anxiety, Bipolar, Depression Additional Psychological History / Comment(s): PT HAS A VIROLOGY TEACHER-DOMINIQUE. DOMINIQUE STATED PT UNABLE TO AMBULATE(LT SIDE WAS AFFECTED BY STROKE) USES A W/C. Smoking Status: Former smoker Past Alcohol Use History: None Reported Additional Past Alcohol Use History / Comment(s): Patient states she is using a vaper cigarettes. She has a 24-hour caregiver that lives with her. She is wheelchair bound. Past Drug Use History: None Reported - Past Family History Father Family Medical History: Unable to Obtain, Coronary Artery Disease (CAD), Diabetes Mellitus Mother Family Medical History: COPD Medications and Allergies Home Medications Medication Instructions Recorded Confirmed Type Nitroglycerin Sl Tabs [Nitrostat] 0.4 mg SUBLINGUAL Q5M PRN 06/14/14 04/26/17 History Albuterol Inhaler [Ventolin Hfa 2 puff INHALATION RT-Q6H PRN 07/19/15 04/26/17 History Inhaler] Aspirin EC [Ecotrin Low Dose] 81 mg PO DAILY 07/19/15 04/26/17 History Atorvastatin [Lipitor] 20 mg PO HS 07/19/15 04/26/17 History Citalopram Hydrobromide [CeleXA] 20 mg PO DAILY 07/19/15 04/26/17 History Famotidine [Pepcid] 20 mg PO BID 07/19/15 04/26/17 History Metoclopramide [Reglan] 5 mg PO AC-TID 07/19/15 04/26/17 History Valproic Acid [Depakene] 250 mg PO DAILY 07/19/15 04/26/17 History Budesonide-Formot 160-4.5 Mcg 2 puff INHALATION RT-BID 03/05/16 04/26/17 History [Symbicort 160-4.5 Mcg Inhaler] Ergocalciferol [Vitamin D2 50,000 unit PO SA 03/05/16 04/26/17 History (DRISDOL)] Ascorbic Acid [Vitamin C] 500 mg PO DAILY 09/21/16 04/26/17 History HYDROcodone/APAP 10-325MG [[place] 1 tab PO Q6H PRN 10/03/16 04/26/17 History 10-325] DULoxetine HCL [Cymbalta] 60 mg PO DAILY 02/16/17 04/26/17 History Ferrous Sulfate [Iron (65 MG 325 mg PO DAILY 02/16/17 04/26/17 History Elemental)] Insulin Glargine [Lantus] 22 unit SQ HS 02/16/17 04/26/17 History Insulin Lispro [humaLOG] 6 units SQ AC-TID 02/16/17 04/26/17 History ALPRAZolam [Xanax] 1 mg PO Q8HR 02/19/17 04/26/17 History Allergies Allergy/AdvReac Type Severity Reaction Status Date / Time Barbiturates Allergy Rash/Hives Verified 04/26/17 07:55 cephalexin monohydrate Allergy Rash/Hives Verified 04/26/17 07:55 [From [facility] [place]] morphine Allergy Rash/Hives Verified 04/26/17 07:55 Penicillins Allergy Rash/Hives Verified 04/26/17 07:55 phenobarbital Allergy Swelling Verified 04/26/17 07:55 venom-honey bee Allergy Swelling Verified 04/26/17 07:55 [bee venom (honey bee)] amlodipine besylate AdvReac Vomiting Verified 04/26/17 07:55 [[facility]] Physical Exam Vitals: Vital Signs Temp Pulse Pulse Resp BP BP BP 04/27/17 08:00 97.4 F L 71 18 04/27/17 04:00 98.7 F 75 18 04/27/17 03:24 70 18 04/27/17 00:00 98.4 F 97 18 04/26/17 23:48 84 18 04/26/17 20:04 80 04/26/17 20:00 98 F 81 18 04/26/17 19:35 80 04/26/17 15:27 98.8 F 80 16 04/26/17 12:28 77 106/57 04/26/17 12:27 76 109/54 04/26/17 12:00 97.5 F L 73 17 110/52 BP Pulse Ox 04/27/17 08:00 128/66 97 04/27/17 04:00 147/74 100 04/27/17 03:24 04/27/17 00:00 138/65 98 04/26/17 23:48 04/26/17 20:04 04/26/17 20:00 152/73 100 04/26/17 19:35 04/26/17 15:27 101/54 94 L 04/26/17 12:28 93 L 04/26/17 12:27 95 04/26/17 12:00 88 L Intake and Output 04/26/17 04/27/17 04/27/17 22:59 06:59 14:59 Other: Voiding Method Bedside Commode Bedside Commode Diaper Diaper Incontinent Incontinent Weight 81.647 kg GENERAL: This is a 56-year-old female in no apparent distress at the time of my examination. HEENT: Head is atraumatic, normocephalic. Pupils are equal, round. Sclerae anicteric. Conjunctivae are clear. Mucous membranes of the mouth are moist. Neck is supple. There is no jugular venous distention. No carotid bruit is heard. LUNGS: Clear to auscultation no wheezes, rales or rhonchi. No chest wall tenderness is noted on palpation or with deep breathing. Diminished bilaterally. HEART: Regular rate and rhythm without murmurs, rubs or gallops. S1 and S2 heard. ABDOMEN: Soft, nontender. Bowel sounds are heard. No organomegaly noted. EXTREMITIES: 2+ peripheral pulses with no evidence of peripheral edema and no calf tenderness noted. NEUROLOGIC: Patient is awake, alert and oriented x3. Poor historian. Results 04/27/17 06:54 04/27/17 06:54 Cardiac Enzymes 04/27/17 04/27/17 Range/Units 06:54 06:54 AST 31 (14-36) U/L Troponin I <0.012 (0.000-0.034) ng/mL CBC 04/27/17 Range/Units 06:54 WBC 4.1 (3.8-10.6) k/uL RBC 3.37 L (3.80-5.40) m/uL Hgb 10.1 L (11.4-16.0) gm/dL Hct 33.1 L (34.0-46.0) % Plt Count 196 (150-450) k/uL Comprehensive Metabolic Panel 04/27/17 Range/Units 06:54 Sodium 144 (137-145) mmol/L Potassium 4.1 (3.5-5.1) mmol/L Chloride 112 H (98-107) mmol/L Carbon Dioxide 26 (22-30) mmol/L BUN 25 H (7-17) mg/dL Creatinine 0.91 (0.52-1.04) mg/dL Glucose 45 L* (74-99) mg/dL Calcium 9.2 (8.4-10.2) mg/dL AST 31 (14-36) U/L ALT 49 (9-52) U/L Alkaline Phosphatase 60 (38-126) U/L Total Protein 6.1 L (6.3-8.2) g/dL Albumin 3.2 L (3.5-5.0) g/dL Current Medications Generic Name Dose Route Start Last Admin Trade Name Freq PRN Reason Stop Dose Admin Acetaminophen 650 mg 04/26/17 04:01 Tylenol Tab PO Q6HR PRN Mild Pain or Fever > 100.5 Hydrocodone Bitart/Acetaminophen 1 each 04/26/17 10:08 04/26/17 21:52 [place] 10 PO 1 each Q6H PRN Administration Pain Albuterol Sulfate 2.5 mg 04/26/17 04:18 04/26/17 19:32 Ventolin Nebulized INHALATION 2.5 mg RT-Q6H PRN Administration Shortness Of Breath Alprazolam 1 mg 04/26/17 08:00 04/27/17 01:15 Xanax PO Not Given Q8HR [facility] Ascorbic Acid 500 mg 04/26/17 12:00 04/26/17 12:27 Vitamin C PO 500 mg DAILY@1200 [facility] Administration Aspirin 81 mg 04/26/17 09:00 04/26/17 08:42 Aspirin PO 81 mg DAILY [facility] Administration Atorvastatin Calcium 20 mg 04/26/17 21:00 04/26/17 21:53 Lipitor PO 20 mg HS [facility] Administration Budesonide/Formoterol Fumarate 2 puff 04/26/17 08:00 04/27/17 09:21 Symbicort 160-4.5 Mcg Inhaler INHALATION 2 puff RT-BID [facility] Administration Citalopram Hydrobromide 20 mg 04/26/17 09:00 04/26/17 08:42 Celexa PO 20 mg DAILY [facility] Administration Duloxetine HCl 60 mg 04/26/17 09:00 04/26/17 08:42 Cymbalta PO 60 mg DAILY [facility] Administration Ergocalciferol 50,000 unit 05/01/17 09:00 Vitamin D2 PO Sa@0900 [facility] Famotidine 20 mg 04/27/17 09:00 Pepcid PO DAILY [facility] Ferrous Sulfate 325 mg 04/26/17 12:00 04/26/17 12:28 Feosol PO 325 mg DAILY@1200 [facility] Administration Heparin Sodium (Porcine) 5,000 unit 04/26/17 21:00 04/26/17 21:51 Heparin SQ 5,000 unit Q12HR [facility] Administration Hydromorphone HCl 1 mg 04/26/17 04:01 04/26/17 06:48 Dilaudid IVP 1 mg Q3HR PRN Administration Severe Pain Sodium Chloride 1,000 mls @ 50 mls/hr 04/26/17 04:15 04/27/17 09:37 Saline 0.9% IV Not Given .Q20H [facility] Ibuprofen 400 mg 04/26/17 04:01 Motrin PO Q6HR PRN Mild Pain or Fever > 100.5 Insulin Aspart 0 unit 04/26/17 12:30 04/26/17 21:51 Novolog SQ 3 unit ACHS [facility] Administration Protocol Insulin Detemir 22 unit 04/26/17 21:00 04/26/17 21:52 Levemir SQ 22 unit HS [facility] Administration Loperamide HCl 2 mg 04/26/17 04:01 Imodium PO Q2HR PRN Loose Stool Metoclopramide HCl 5 mg 04/26/17 07:30 04/26/17 18:10 Reglan PO 5 mg AC-TID [facility] Administration Miscellaneous Information 1 each 04/26/17 20:31 Rx Info: Iv Contrast Was Given MISCELLANE 04/28/17 20:32 DAILY PRN Per Protocol Naloxone HCl 0.2 mg 04/26/17 04:01 Narcan IV Q2M PRN Opioid Reversal Nitroglycerin 0.4 mg 04/26/17 04:18 Nitrostat SUBLINGUAL Q5M PRN Chest Pain Ondansetron HCl 4 mg 04/26/17 04:01 Zofran IVP Q8HR PRN Nausea And Vomiting Valproic Acid 250 mg 04/26/17 09:00 04/26/17 08:42 Depakene Syrup PO 250 mg DAILY [facility] Administration Intake and Output 04/26/17 04/27/17 04/27/17 22:59 06:59 14:59 Other: Voiding Method Bedside Commode Bedside Commode Diaper Diaper Incontinent Incontinent Weight 81.647 kg 04/27/17 06:54 04/27/17 06:54 Assessment and Plan Assessment: ASSESSMENT 1. Syncope, possible vasovagal response. 2. History of coronary artery disease 3. History of hypertension 4. Dyslipidemia 5. History of iron deficiency anemia 6. Diabetes mellitus, uncontrolled PLAN Obtain echocardiogram and Doppler study to assess cardiac structure and function. Continue with cautious rehydration with IV fluids to correct dehydration. Event monitor to be placed at time of discharge. She should follow up with Dr. Erickson in 2-3 weeks. Nurse Practitioner note has been reviewed, I agree with a documented findings and plan of care. Patient was seen and examined.
--- NOTE | 2017-04-27 12:02 | P.PN ---
Subjective Progress Note Date: 04/27/17 This is a 56-year-old female with a known past medical history of CVA with left- sided paralysis, diabetes mellitus, congestive heart failure, previous DVT of the lower extremity, hypertension, hyperlipidemia, hypothyroidism and bipolar. Patient's history was obtained from her caregiver. The caregiver reports that Melva had been having multiple episodes of diarrhea on Wednesday. Yesterday she had no further episodes of diarrhea. Yesterday she was helping Melva get to the bathroom to urinate. She then finished urinating got up to stand with assistance and use of a wheelchair. She became dizzy and passed out. The caregiver reports that the patient passed out for about 3-4 minutes. Her eyelids were flickering open and closed. She called EMS and patient was brought into the emergency room. Patient's blood sugar at that time was in the 200s per caregiver. Caregiver also reports that the patient was having issues with severely elevated blood sugars in the 500s. She had been given extra insulin prior to the passing out episode. When she came to the floor this morning blood sugars had dropped down to 46. Blood sugars are now back up in the 200s. Patient does have a history of fluctuating blood sugars. Patient also had evidence of acute kidney injury with a creatinine of 1.80. Caregiver does report that patient had been eating and drinking. But again did have a day of multiple episodes of diarrhea. D-dimer was reported normal at 0.47. Computed tomography scan the brain shows old stroke on the right side anterior cerebral and middle cerebral artery. No acute intracranial abnormality. No change. KUB x-ray and chest x-ray were both negative. EKG showing a normal sinus rhythm. Troponin was negative. Patient is very sleepy during my exam. However she is arousable. Patient has not slept that she was in the ER all night. Xanax was held this morning. Also will be discontinuing the Dilaudid. Patient did receive a dose of IV Dilaudid due to a headache. This could be contributing to her sleepiness. She denies any chest pain or shortness of breath. Denies any nausea or vomiting. Denies any burning with urination. 04/27/2017 patient more awake and alert today. She said the night. Her carotid ultrasound showed complete occlusion in the right internal carotid artery and 50-69% and the left internal carotid artery. Patient has been seen by vascular surgery and will follow-up with her in the office. No surgical intervention at this time. Kidney functions have improved after given IV fluids. She's also being followed by neurology. Test results are pending for a CT of the neck echo and EEG. Patient had hypoglycemia with a blood sugar of 45 this morning. Was given dextrose. Blood sugar has come up to 209. Her caregiver says that she only takes 18 units in said the 22 units of Levemir at home. Objective - Vital Signs Vital signs: Vital Signs Temp 97.4 F L 04/27/17 08:00 Pulse 71 04/27/17 08:00 Resp 18 04/27/17 08:00 BP 128/66 04/27/17 08:00 Pulse Ox 97 04/27/17 08:00 Intake & Output 04/26/17 04/27/17 04/27/17 18:59 06:59 18:59 Intake Total 236 Balance 236 Weight 81.647 kg Intake: Oral 236 Other: Voiding Method Bedside Commode Bedside Commode Diaper Diaper Incontinent Incontinent - Exam 1. Syncope: Monitor for episodes of hypoglycemia. orthostatics negative. Check echo. EKG showing a normal sinus rhythm. Continue telemetry monitoring. Symptoms also may have been related to dehydration. We'll continue with IV fluids.patient evaluated by cardiology and neurology 2. Diarrhea prior to admission. Now resolved. 3. Acute kidney injury with known chronic kidney disease, stage III. Continue IV fluids. Creatinine has normalized with IV fluids 4. History of stroke with left-sided paralysis 5. Insulin-dependent diabetes mellitus: Fluctuating blood sugars. Patient had hypoglycemia when she came to the observation floor likely related to the extra insulin she received at home for her elevated blood sugars. Resume her Lantus. Continue sliding scale. Continue to monitor. patient had no episode of hypoglycemia this morning. Per caregiver she's only taking the Levemir 18 units at bedtime incentive 22. At this time we'll cut her Levemir down to 16 units and continue sliding scale coverage. A1c is 9.5. Patient will likely need follow-up with blog writer outpatient. 6. History of coronary artery disease with previous myocardial infarction 7. History of hypertension continue to monitor. She did have one episode of hypotension. Now improved. 8. Iron deficiency anemia: Continue with iron supplement 9. Hyperlipidemia continue Lipitor 10. Complete occlusion of the right internal carotid artery and 50-69% left internal carotid artery stenosis on carotid ultrasound. Patient was evaluated by vascular surgery. No surgical intervention required. We will follow up with her in the office. CTA of the neck pending. Consult physical therapy Anticipate discharge within the next 1-2 days I performed an examination of the patient and discussed their management with the physician Dry Pan Charger. I have reviewed the Physician Dry Pan Charger's notes and agree with the documented findings and plan of care - Labs CBC & Chem 7: 04/27/17 06:54 04/27/17 06:54 Labs: Abnormal Lab Results - Last 24 Hours (Table) 04/26/17 04/26/17 04/26/17 Range/Units 00:56 11:52 17:01 RBC (3.80-5.40) m/uL Hgb (11.4-16.0) gm/dL Hct (34.0-46.0) % MCHC (31.0-37.0) g/dL Chloride (98-107) mmol/L BUN (7-17) mg/dL Glucose (74-99) mg/dL POC Glucose (mg/dL) 429 H 316 H (75-99) mg/dL Hemoglobin A1c 9.5 H (4.0-6.0) % Total Protein (6.3-8.2) g/dL Albumin (3.5-5.0) g/dL 04/26/17 04/27/17 04/27/17 Range/Units 20:36 06:54 06:54 RBC 3.37 L (3.80-5.40) m/uL Hgb 10.1 L (11.4-16.0) gm/dL Hct 33.1 L (34.0-46.0) % MCHC 30.7 L (31.0-37.0) g/dL Chloride 112 H (98-107) mmol/L BUN 25 H (7-17) mg/dL Glucose 45 L* (74-99) mg/dL POC Glucose (mg/dL) 221 H (75-99) mg/dL Hemoglobin A1c (4.0-6.0) % Total Protein 6.1 L (6.3-8.2) g/dL Albumin 3.2 L (3.5-5.0) g/dL 04/27/17 04/27/17 Range/Units 06:54 07:11 RBC (3.80-5.40) m/uL Hgb (11.4-16.0) gm/dL Hct (34.0-46.0) % MCHC (31.0-37.0) g/dL Chloride (98-107) mmol/L BUN (7-17) mg/dL Glucose (74-99) mg/dL POC Glucose (mg/dL) 49 L 209 H (75-99) mg/dL Hemoglobin A1c (4.0-6.0) % Total Protein (6.3-8.2) g/dL Albumin (3.5-5.0) g/dL
[2017-04-27] MEDS: INSULIN ASPART 100 UNIT/ML 1 ML 10 ML VIAL SQ SCH ×3 (12:10→19:59)
[2017-04-27] MEDS: METOCLOPRAMIDE 5 MG TAB PO SCH ×3 (12:10→19:59)
[2017-04-27] MEDS: CITALOPRAM HYDROBROMIDE 20 MG TAB PO SCH (12:12)
[2017-04-27] MEDS: DULoxetine HCL 60 MG CAPSULE.DR PO SCH (12:12)
[2017-04-27] MEDS: FERROUS SULFATE 325 MG TAB PO SCH (12:13)
[2017-04-27] MEDS: ASCORBIC ACID 500 MG TAB PO SCH (12:13)
[2017-04-27] MEDS: ASPIRIN 81 MG PO SCH (12:13)
[2017-04-27] MEDS: VALPROIC ACID ORAL SOLN 250 MG/5 ML CUP PO SCH (12:13)
[2017-04-27] MEDS: HEPARIN SODIUM,PORCINE 5,000 UNIT/ML 1 ML VIAL SQ SCH (12:14)
[2017-04-27 12:20] LABS: Glucose,Whole Blood 94 mg/dL (75-99)
--- NOTE | 2017-04-27 12:20 | ECHOF ---
Referral Reason:syncope MEASUREMENTS -------- HEIGHT: 157.5 cm WEIGHT: 81.6 kg BP: 106/52 RVIDd: 1.5 cm (< 3.3) IVSd: 1.1 cm (0.6 - 1.1) LVIDd: 3.9 cm (3.9 - 5.3) LVPWd: 1.1 cm (0.6 - 1.1) IVSs: 1.5 cm LVIDs: 2.0 cm LVPWs: 1.5 cm LAESV Index (A-L): 15.31 ml/m Ao Diam: 2.8 cm (2.0 - 3.7) AV Cusp: 1.6 cm (1.5 - 2.6) LA Diam: 2.7 cm (2.7 - 3.8) MV EXCURSION: 13.254 mm (> 18.000) MV EF SLOPE: 65 mm/s (70 - 150) EPSS: 0.2 cm MV E Kosta: 0.85 m/s MV DecT: 260 ms MV A Kosta: 1.07 m/s MV E/A Ratio: 0.79 RAP: 5.00 mmHg RVSP: 10.17 mmHg FINDINGS -------- Sinus rhythm. This was a technically adequate study. The left ventricular size is normal. There is borderline concentric left ventricular hypertrophy. Overall left ventricular systolic function is normal with, an EF between 65 - 70 %. The right ventricle is normal in size and function. Normal LA size by volume 22+/-6 ml/m2. The right atrium is normal in size. The aortic valve is trileaflet, and appears structurally normal. No aortic stenosis or regurgitation. The mitral valve leaflets are mildly thickened. There is trace mitral regurgitation. Trace tricuspid regurgitation present. Right ventricular systolic pressure is normal at < 35 mmHg. There is no evidence of pulmonary hypertension. The pulmonic valve was not well visualized. The aortic root size is normal. Normal inferior vena cava with normal inspiratory collapse consistent with estimated right atrial pre ssure of 5 mmHg. The pericardium is normal. There is no pericardial effusion. CONCLUSIONS -------- 1. Sinus rhythm. 2. This was a technically adequate study. 3. The left ventricular size is normal. 4. There is borderline concentric left ventricular hypertrophy. 5. Overall left ventricular systolic function is normal with, an EF between 65 - 70 %. 6. Normal LA size by volume 22+/-6 ml/m2. 7. The aortic valve is trileaflet, and appears structurally normal. No aortic stenosis or regurgitati on. 8. The mitral valve leaflets are mildly thickened. 9. There is trace mitral regurgitation. 10. Trace tricuspid regurgitation present. 11. Right ventricular systolic pressure is normal at < 35 mmHg. 12. There is no evidence of pulmonary hypertension. 13. The pulmonic valve was not well visualized. 14. The aortic root size is normal. 15. There is no pericardial effusion. PASTE MIXER: Freddy Gonzales RDCS
--- NOTE | 2017-04-27 13:02 | CT ---
EXAMINATION TYPE: CT angio neck DATE OF EXAM: 04/27/2017 COMPARISON: Ultrasound 04/26/2017 HISTORY: 56-year-old female with CVA, evaluate for stenosis TECHNIQUE: Contiguous axial scanning of the neck performed with IV Contrast, patient injected with 65 mL of Omnipaque 350. Coronal/sagittal MIP reconstructions performed. 3-D reconstructions generated o n a dedicated independent workstation. CT DLP: 167.4 mGycm Automated exposure control for dose reduction was used. FINDINGS: Mild atherosclerotic changes at the origin of the left subclavian and brachiocephalic arteries. Possi ble moderate to severe stenosis at the origin of the left vertebral artery and mild to moderate at th e origin of the right vertebral artery. The vertebral arteries are codominant and otherwise patent th roughout the course. Large hypodensity right MCA territory with a very diminutive right intracranial anterior circulation which likely receives collateral flow from the left side and posterior circulation. The right common carotid artery is patent. There is confirmation of the proximal right ICA occlusion. The left common carotid artery is patent. Marked tortuosity of the proximal left internal carotid artery. In combination with patient motion, a ssessment is limited but narrowing in the left carotid bulb seems to be over 50% but the remainder of the left internal carotid artery is widely patent. IMPRESSION: 1. FINDINGS CONFIRM COMPLETE OCCLUSION OF THE PROXIMAL RIGHT ICA. 2. SEVERE TORTUOSITY OF THE PROXIMAL LEFT ICA IN COMBINATION WITH PATIENT MOTION. THE EXACT DEGREE OF NARROWING AT THE PROXIMAL LEFT ICA IS DIFFICULT TO ASSESS BUT IS OVER 50%. THE REMAINDER OF THE LEFT INTERNAL CAROTID ARTERY IS WIDELY PATENT. 3. DIMINUTIVE INTRACRANIAL ANTERIOR CIRCULATION ON THE RIGHT LIKELY BEING SUPPLIED FROM SOME RETROGRA DE FLOW FROM THE LEFT SIDE AND POSTERIOR CIRCULATION. 4. OLD RIGHT-SIDED INTRACRANIAL INFARCT REDEMONSTRATED.
--- NOTE | 2017-04-27 15:22 | P.PN ---
Subjective Progress Note Date: 04/27/17 Principal diagnosis: Syncope This is a pleasant 56-year-old female continuing be evaluated by the neurology service for syncope. She has a history of ischemic stroke with residual left hemiparesis. She lives at home with a caregiver. She had a history of diarrhea for several days. She stood up from the commode a few days ago and became lightheaded and had a syncopal episode. She had been hypotensive. IV hydration was started. Recall that his CT of the brain showed an old ischemic stroke involving the right middle cerebral artery and anterior cerebral distribution. Her carotid Doppler showed significant stenosis so a CTA was done. It did show total occlusion of the right internal carotid artery and greater than 50% occlusion on the left. She is being followed by cardiovascular surgery and they have recommended follow up in outpatient setting. She denies any recurrence of significant dizziness or syncope since her admission. At the time of my exam she is resting comfortably in bed in no acute distress. Objective - Vital Signs Vital signs: Vital Signs Temp 97.5 F L 04/27/17 12:48 Pulse 76 04/27/17 12:48 Resp 18 04/27/17 12:48 BP 110/52 04/27/17 12:48 Pulse Ox 88 L 04/27/17 12:48 Intake & Output 04/26/17 04/27/17 04/27/17 18:59 06:59 18:59 Intake Total 236 360 Balance 236 360 Weight 81.647 kg Intake: Oral 236 360 Other: Voiding Method Bedside Commode Bedside Commode Diaper Diaper Incontinent Incontinent # Voids 1 # Bowel Movements 1 - Constitutional General appearance: Present: average body habitus, cooperative - EENT Eyes: Present: PERRLA. Absent: abnormal pupil, ptosis ENT: Present: hearing grossly normal - Cardiovascular Rhythm: regular - Gastrointestinal General gastrointestinal: Absent: distended, tenderness - Neurologic Neurologic Comment(s): She is alert awake and oriented 3. Speech and language are normal. Strength is 0 out of 5 left upper extremity 2 out of 5 left lower extremity and 5 out of 5 on the right side. She has diminished light touch on the left side. She has a left facial droop. - Labs CBC & Chem 7: 04/27/17 06:54 04/27/17 06:54 Labs: Abnormal Lab Results - Last 24 Hours (Table) 04/26/17 04/26/17 04/27/17 Range/Units 17:01 20:36 06:54 RBC 3.37 L (3.80-5.40) m/uL Hgb 10.1 L (11.4-16.0) gm/dL Hct 33.1 L (34.0-46.0) % MCHC 30.7 L (31.0-37.0) g/dL Chloride (98-107) mmol/L BUN (7-17) mg/dL Glucose (74-99) mg/dL POC Glucose (mg/dL) 316 H 221 H (75-99) mg/dL Total Protein (6.3-8.2) g/dL Albumin (3.5-5.0) g/dL 04/27/17 04/27/17 04/27/17 Range/Units 06:54 06:54 07:11 RBC (3.80-5.40) m/uL Hgb (11.4-16.0) gm/dL Hct (34.0-46.0) % MCHC (31.0-37.0) g/dL Chloride 112 H (98-107) mmol/L BUN 25 H (7-17) mg/dL Glucose 45 L* (74-99) mg/dL POC Glucose (mg/dL) 49 L 209 H (75-99) mg/dL Total Protein 6.1 L (6.3-8.2) g/dL Albumin 3.2 L (3.5-5.0) g/dL Assessment and Plan (1) Syncope and collapse Current Visit: Yes Status: Resolved Code(s): R55 - SYNCOPE AND COLLAPSE SNOMED Code(s): 270276892 (2) Hemiparesis affecting left side as late effect of cerebrovascular accident Current Visit: Yes Status: Chronic Code(s): I69.354 - HEMIPLGA FOLLOWING CEREBRAL INFRC AFFECTING LEFT NONDOM SIDE SNOMED Code(s): 662527354 (3) Carotid stenosis Current Visit: Yes Status: Chronic Code(s): I65.29 - OCCLUSION AND STENOSIS OF UNSPECIFIED CAROTID ARTERY SNOMED Code(s): 26593727 (4) Dehydration Current Visit: Yes Status: Resolved Code(s): E86.0 - DEHYDRATION SNOMED Code(s): 09093247 (5) Diarrhea Current Visit: Yes Status: Resolved Code(s): R19.7 - DIARRHEA, UNSPECIFIED SNOMED Code(s): 48023450 (6) Hyperglycemia Current Visit: Yes Status: Chronic Code(s): R73.9 - HYPERGLYCEMIA, UNSPECIFIED SNOMED Code(s): 71927344 Plan: Her syncopal episode was likely due to dehydration. She is doing much better after IV hydration. As discussed above she will follow-up in an outpatient setting to monitor her carotid stenosis. Barring any unforeseen abnormalities on her EEG she would be released from a neurological standpoint. I have performed a history and physical on the above patient. I have reviewed the above note, and agree.
--- NOTE | 2017-04-27 15:38 | P.DS ---
Providers Date of admission: 04/27/17 10:08 Expected date of discharge: 04/27/17 Attending physician: Sherlyn Chen Consults: 04/26/17 12:34 Consult Physician Routine Consulting Provider: Jose G Barrera Consult Reason/Comments: syncope and possible stroke Do you want consulting provider notified?: Yes 04/26/17 18:15 Consult Physician Routine Consulting Provider: Aaron Rothman Consult Reason/Comments: syncope Do you want consulting provider notified?: Yes Primary care physician: Sherlyn Chen [facility] Course: Discharge diagnosis 1. Syncope: Likely secondary to dehydration. Also related to the right internal carotid artery stenosis. orthostatics negative. Check echo. EKG showing a normal sinus rhythm. Continue telemetry monitoring. Symptoms also may have been related to dehydration. Patient was cleared for discharge by both cardiology and neurology 2. Diarrhea prior to admission. Now resolved. 3. Acute kidney injury with known chronic kidney disease, stage III. Continue IV fluids. Creatinine has normalized with IV fluids 4. History of stroke with left-sided paralysis 5. Insulin-dependent diabetes mellitus: Fluctuating blood sugars. Patient had hypoglycemia when she came to the observation floor likely related to the extra insulin she received at home for her elevated blood sugars. Resume her Lantus. Continue sliding scale. Continue to monitor. patient had no episode of hypoglycemia this morning. Per caregiver she's only taking the Levemir 18 units at bedtime instead of 22. At this time we'll cut her Levemir down to 16 units and continue sliding scale coverage. A1c is 9.5. Patient will likely need follow-up with automotive maintenance technician outpatient. 6. History of coronary artery disease with previous myocardial infarction 7. History of hypertension continue to monitor. She did have one episode of hypotension. Now improved. 8. Iron deficiency anemia: Continue with iron supplement 9. Hyperlipidemia continue Lipitor 10. Complete occlusion of the right internal carotid artery and 50-69% left internal carotid artery stenosis on carotid ultrasound. Patient was evaluated by vascular surgery. No surgical intervention required. We will follow up with her in the office. CTA of the neck pending. Hospital course This is a 56-year-old female with a known past medical history of CVA with left- sided paralysis, diabetes mellitus, congestive heart failure, previous DVT of the lower extremity, hypertension, hyperlipidemia, hypothyroidism and bipolar. Patient's history was obtained from her caregiver. The caregiver reports that Melva had been having multiple episodes of diarrhea on Wednesday. Yesterday she had no further episodes of diarrhea. Yesterday she was helping Melva get to the bathroom to urinate. She then finished urinating got up to stand with assistance and use of a wheelchair. She became dizzy and passed out. The caregiver reports that the patient passed out for about 3-4 minutes. Her eyelids were flickering open and closed. She called EMS and patient was brought into the emergency room. Patient's blood sugar at that time was in the 200s per caregiver. Caregiver also reports that the patient was having issues with severely elevated blood sugars in the 500s. She had been given extra insulin prior to the passing out episode. When she came to the floor this morning blood sugars had dropped down to 46. Blood sugars are now back up in the 200s. Patient does have a history of fluctuating blood sugars. Patient also had evidence of acute kidney injury with a creatinine of 1.80. Caregiver does report that patient had been eating and drinking. But again did have a day of multiple episodes of diarrhea. D-dimer was reported normal at 0.47. Computed tomography scan the brain shows old stroke on the right side anterior cerebral and middle cerebral artery. No acute intracranial abnormality. No change. KUB x-ray and chest x-ray were both negative. EKG showing a normal sinus rhythm. Troponin was negative. Patient is very sleepy during my exam. However she is arousable. Patient has not slept that she was in the ER all night. Xanax was held this morning. Also will be discontinuing the Dilaudid. Patient did receive a dose of IV Dilaudid due to a headache. This could be contributing to her sleepiness. She denies any chest pain or shortness of breath. Denies any nausea or vomiting. Denies any burning with urination. 04/27/2017 patient more awake and alert today. She said the night. Her carotid ultrasound showed complete occlusion in the right internal carotid artery and 50-69% and the left internal carotid artery. Patient has been seen by vascular surgery and will follow-up with her in the office. No surgical intervention at this time. Kidney functions have improved after given IV fluids. She's also being followed by neurology. Test results are pending for a CT of the neck echo and EEG. Patient had hypoglycemia with a blood sugar of 45 this morning. Was given dextrose. Blood sugar has come up to 209. Her caregiver says that she only takes 18 units in said the 22 units of Levemir at home. Patient was cleared by cardiology and neurology for discharge. Echo showed a preserved EF. CTA of the neck did confirm complete occlusion in the right internal carotid artery. Patient will be following up with Dr. Rothman in the outpatient setting for follow-up on her carotid artery stenosis. Patient's kidney function returned to normal after IV fluids given. Likely patient's syncopal episode was related to dehydration. Patient's did have some hypoglycemia this morning but as stated above she was only taking Levemir 18 units instead of the 22 units. We will further decrease the Levemir to 16 units. Continue to have patient monitor blood sugars. Continue with her Humalog 6 units with each meal. And she is to continue with Humalog sliding scale coverage. Hospital Humalog sliding scale given to patient. Patient's symptoms have improved. She will follow-up with consulting physicians as scheduled. She is medically stable for discharge. Please refer to chart for further details. Patient Condition at Discharge: Stable Plan - Discharge Summary Discharge Rx Participant: No New Discharge Prescriptions: Continue Nitroglycerin Sl Tabs [Nitrostat] 0.4 mg SUBLINGUAL Q5M PRN PRN Reason: Chest Pain Albuterol Inhaler [Ventolin Hfa Inhaler] 2 puff INHALATION RT-Q6H PRN PRN Reason: Shortness Of Breath Atorvastatin [Lipitor] 20 mg PO HS Famotidine [Pepcid] 20 mg PO BID Citalopram Hydrobromide [CeleXA] 20 mg PO DAILY Aspirin EC [Ecotrin Low Dose] 81 mg PO DAILY Valproic Acid [Depakene] 250 mg PO DAILY Metoclopramide [Reglan] 5 mg PO AC-TID Ergocalciferol [Vitamin D2 (DRISDOL)] 50,000 unit PO SA Budesonide-Formot 160-4.5 Mcg [Symbicort 160-4.5 Mcg Inhaler] 2 puff INHALATION RT-BID Ascorbic Acid [Vitamin C] 500 mg PO DAILY HYDROcodone/APAP 10-325MG [[place] 10-325] 1 tab PO Q6H PRN PRN Reason: Pain Insulin Lispro [humaLOG] 6 units SQ AC-TID Ferrous Sulfate [Iron (65 MG Elemental)] 325 mg PO DAILY DULoxetine HCL [Cymbalta] 60 mg PO DAILY ALPRAZolam [Xanax] 1 mg PO Q8HR Changed Insulin Glargine [Lantus] 16 unit SQ HS #0 Discharge Medication List Nitroglycerin Sl Tabs [Nitrostat] 0.4 mg SUBLINGUAL Q5M PRN 06/14/14 [History] Albuterol Inhaler [Ventolin Hfa Inhaler] 2 puff INHALATION RT-Q6H PRN 07/19/15 [ History] Aspirin EC [Ecotrin Low Dose] 81 mg PO DAILY 07/19/15 [History] Atorvastatin [Lipitor] 20 mg PO HS 07/19/15 [History] Citalopram Hydrobromide [CeleXA] 20 mg PO DAILY 07/19/15 [History] Famotidine [Pepcid] 20 mg PO BID 07/19/15 [History] Metoclopramide [Reglan] 5 mg PO AC-TID 07/19/15 [History] Valproic Acid [Depakene] 250 mg PO DAILY 07/19/15 [History] Budesonide-Formot 160-4.5 Mcg [Symbicort 160-4.5 Mcg Inhaler] 2 puff INHALATION RT-BID 03/05/16 [History] Ergocalciferol [Vitamin D2 (DRISDOL)] 50,000 unit PO SA 03/05/16 [History] Ascorbic Acid [Vitamin C] 500 mg PO DAILY 09/21/16 [History] HYDROcodone/APAP 10-325MG [[place] 10-325] 1 tab PO Q6H PRN 10/03/16 [History] DULoxetine HCL [Cymbalta] 60 mg PO DAILY 02/16/17 [History] Ferrous Sulfate [Iron (65 MG Elemental)] 325 mg PO DAILY 02/16/17 [History] Insulin Lispro [humaLOG] 6 units SQ AC-TID 02/16/17 [History] ALPRAZolam [Xanax] 1 mg PO Q8HR 02/19/17 [History] Insulin Glargine [Lantus] 16 unit SQ HS #0 04/27/17 [Rx] Follow up Appointment(s)/Referral(s): Jose G Barrera MD [STAFF PHYSICIAN] - 1 Week Aldo Erickson MD [STAFF PHYSICIAN] - 2 Weeks Aaron Rothman MD [STAFF PHYSICIAN] - 4 Weeks Sherlyn Chen MD [Primary Care Provider] - 1 Week Patient Instructions/Handouts: Syncope (GEN) Activity/Diet/Wound Care/Special Instructions: Diet: diabetic, cardiac Activity: as tolerated copy of Humalog sliding scale A given to patient Discharge Disposition: HOME SELF-CARE
[2017-04-27 17:04] LABS: Glucose,Whole Blood 289 mg/dL (75-99)
--- NOTE | 2017-04-27 18:55 | EEG ---
ELECTROENCEPHALOGRAM REPORT DATE OF SERVICE: 04/27/2017. REASON FOR TESTING: Syncope. DESCRIPTION OF THE PROCEDURE: This EEG was performed using a 21 channel digital electroencephalograph, following international 10-20 system. DESCRIPTION OF THE RECORDING: From the beginning of the tracing, and with patient's eyes closed, the background rhythm was mostly consisting of 8 hertz alpha frequency in the posterior occipital leads. Frequent muscle and movement artifacts are seen. Photic stimulation was performed with a minimal driving response seen. No pathological waves were elicited. Hyperventilation was not performed. No epileptiform discharges were seen. Her EKG lead showed a regular rate and rhythm. INTERPRETATION: This awake EEG can be considered within normal limits. No epileptiform discharges were seen. The absence of epileptiform discharges does not rule out the diagnosis of epilepsy, therefore clinical correlation is recommended. MMTIAL / IJN: [id number] /
[2017-04-27 19:24] VITALS: BP 146/86; PULSE 91; TEMP 97.7
[2017-04-27 20:18] LABS: Glucose,Whole Blood 443 mg/dL (75-99)
[2017-04-27] MEDS ORDERED: INSULIN DETEMIR 100 UNIT/ML 10 ML VIAL SQ SCH (21:00)
[2017-05-01] MEDS ORDERED: ERGOCALCIFEROL 50,000 UNIT CAP PO SCH (09:00)
== END 2017-04-27 21:32 | disposition home or self-care (01) ==
LOC: EC 00:23 → 3OBS 05:20 → OBSVTOIN 04-27 10:08 → INTOOBSV 04-27 10:08
PROVIDERS: ADMIT Internal Medicine; ATTEND Internal Medicine
DX: R55 Syncope and collapse (principal); I13.0 Hypertensive heart and chronic kidney disease with heart failure and stage 1 through stage 4 chronic kidney disease, or unspecified chronic kidney disease; E11.22 Type 2 diabetes mellitus with diabetic chronic kidney disease; N18.3 Chronic kidney disease, stage 3 (moderate); I25.10 Atherosclerotic heart disease of native coronary artery without angina pectoris; E78.5 Hyperlipidemia, unspecified; D50.9 Iron deficiency anemia, unspecified; N17.9 Acute kidney failure, unspecified; I50.9 Heart failure, unspecified; E11.649 Type 2 diabetes mellitus with hypoglycemia without coma; I69.354 Hemiplegia and hemiparesis following cerebral infarction affecting left non-dominant side; E03.9 Hypothyroidism, unspecified; F31.9 Bipolar disorder, unspecified; I95.9 Hypotension, unspecified; E11.42 Type 2 diabetes mellitus with diabetic polyneuropathy; J44.9 Chronic obstructive pulmonary disease, unspecified; K21.9 Gastro-esophageal reflux disease without esophagitis; I65.23 Occlusion and stenosis of bilateral carotid arteries; R19.7 Diarrhea, unspecified; E11.319 Type 2 diabetes mellitus with unspecified diabetic retinopathy without macular edema; E11.65 Type 2 diabetes mellitus with hyperglycemia; I25.2 Old myocardial infarction; F41.9 Anxiety disorder, unspecified; Z86.718 Personal history of other venous thrombosis and embolism; Z89.421 Acquired absence of other right toe(s); Z86.14 Personal history of Methicillin resistant Staphylococcus aureus infection; Z90.89 Acquired absence of other organs; Z90.710 Acquired absence of both cervix and uterus; Z79.4 Long term (current) use of insulin; Z90.49 Acquired absence of other specified parts of digestive tract; Z82.5 Family history of asthma and other chronic lower respiratory diseases; Z83.3 Family history of diabetes mellitus; Z82.49 Family history of ischemic heart disease and other diseases of the circulatory system; Z88.0 Allergy status to penicillin; Z88.8 Allergy status to other drugs, medicaments and biological substances; Z88.6 Allergy status to analgesic agent; Z91.030 Bee allergy status; Z79.82 Long term (current) use of aspirin; Z79.51 Long term (current) use of inhaled steroids; Z79.899 Other long term (current) drug therapy; Z99.3 Dependence on wheelchair; E86.0 Dehydration; F17.290 Nicotine dependence, other tobacco product, uncomplicated
CPT/HCPCS: 96374; 96375; 96376; 96361; 99285; 36415; 94640 ×3; 95816; 93005; 93306; 85379; 80053 ×2; 84443; 82550; 82553; 83735; 84484 ×2; 85025 ×2; 85610; 85730; 81003; 83036; 71020; 74000; 93880; 70450; 70498; G0378 ×3; J1170; J1644 ×2; Q9967; C9113; 96360

== ENCOUNTER 2017-06-07 14:06 | Observation (INO) | payer OTHER ==
[2017-06-07] MEDS ORDERED: NITROGLYCERIN OINT 1 INCH/GM PACKET TOPICAL STA (14:19)
--- NOTE | 2017-06-07 14:23 | ED ---
General Adult HPI - General Stated complaint: Chest Pain Time Seen by Provider: 06/07/17 14:08 Source: patient, EMS, RN notes reviewed Mode of arrival: EMS Limitations: physical limitation - History of Present Illness Initial comments: Patient is a pleasant 56-year-old female presenting to the emergency department for chest discomfort. Onset was around a half an hour ago. Patient states discomfort was somewhat severe however now is moderate. Patient has a difficult time describing the type of discomfort she is experiencing. Patient is a poor historian. Patient states she does not generally have chest discomfort. Patient does complain of a headache. Patient states she does get headaches frequently since her stroke in 2002, approximately weekly. Headache is similar to previous headaches. No complaints of dyspnea. Patient states there has been some mild rhinorrhea recently and has recently been exposed to influenza. No vomiting. No diaphoresis. Patient did receive aspirin from EMS prior to arrival. - Related Data Home Medications Medication Instructions Recorded Confirmed Nitroglycerin Sl Tabs [Nitrostat] 0.4 mg SUBLINGUAL Q5M PRN 06/14/14 06/07/17 Albuterol Inhaler [Ventolin Hfa 2 puff INHALATION RT-Q4H PRN 07/19/15 06/07/17 Inhaler] Aspirin EC [Ecotrin Low Dose] 81 mg PO DAILY 07/19/15 06/07/17 Atorvastatin [Lipitor] 20 mg PO HS 07/19/15 06/07/17 Famotidine [Pepcid] 20 mg PO BID 07/19/15 06/07/17 Metoclopramide [Reglan] 5 mg PO AC-TID 07/19/15 06/07/17 Valproic Acid [Depakene] 250 mg PO DAILY 07/19/15 06/07/17 Budesonide-Formot 160-4.5 Mcg 2 puff INHALATION RT-BID 03/05/16 06/07/17 [Symbicort 160-4.5 Mcg Inhaler] Ergocalciferol [Vitamin D2 50,000 unit PO Q7D 03/05/16 06/07/17 (DRISDOL)] HYDROcodone/APAP 10-325MG [[place] 1 tab PO Q6H PRN 10/03/16 06/07/17 10-325] DULoxetine HCL [Cymbalta] 60 mg PO DAILY 02/16/17 06/07/17 Ferrous Sulfate [Iron (65 MG 325 mg PO DAILY 02/16/17 06/07/17 Elemental)] Insulin Lispro [humaLOG] 4 units SQ AC-TID 02/16/17 06/07/17 ALPRAZolam [Xanax] 1 mg PO TID 02/19/17 06/07/17 Docusate [Colace] 100 mg PO BID 06/07/17 06/07/17 EPINEPHrine (Auto Inject) [Epipen] 0.3 mg IM ONCE PRN 06/07/17 06/07/17 Glucagon Emergency Kit 1 mg SQ ONCE PRN 06/07/17 06/07/17 Insulin Glargine [Lantus] 20 unit SQ HS 06/07/17 06/07/17 Ondansetron HCl [Zofran] 4 mg PO DAILY PRN 06/07/17 06/07/17 SILVER sulfADIAZINE Cream 1 applic TOPICAL DAILY 06/07/17 06/07/17 [Silvadene 1% Cream] Vitamin B Complex 1 cap PO DAILY 06/07/17 06/07/17 Allergies Allergy/AdvReac Type Severity Reaction Status Date / Time Barbiturates Allergy Rash/Hives Verified 06/07/17 15:02 cephalexin monohydrate Allergy Rash/Hives Verified 06/07/17 15:02 [From Keflex] morphine Allergy Rash/Hives Verified 06/07/17 15:02 Penicillins Allergy Rash/Hives Verified 06/07/17 15:02 phenobarbital Allergy Swelling Verified 06/07/17 14:20 venom-honey bee Allergy Swelling Verified 06/07/17 15:02 [bee venom (honey bee)] amlodipine besylate AdvReac Vomiting Verified 06/07/17 14:20 [From Norvasc] Review of Systems ROS Statement: Those systems with pertinent positive or pertinent negative responses have been documented in the HPI. ROS Other: All systems not noted in ROS Statement are negative. Constitutional: Denies: fever Eyes: Denies: eye pain ENT: Denies: ear pain Respiratory: Denies: cough Cardiovascular: Reports: chest pain Endocrine: Denies: fatigue Gastrointestinal: Denies: abdominal pain Genitourinary: Denies: dysuria Musculoskeletal: Denies: back pain Skin: Denies: rash Neurological: Reports: headache Past Medical History Past Medical History: Chest Pain / Angina, Heart Failure, COPD, CVA/TIA, Diabetes Mellitus, Deep Vein Thrombosis (DVT), Eye Disorder, GERD/Reflux, Hyperlipidemia, Hypertension, Myocardial Infarction (DC), Thyroid Disorder Additional Past Medical History / Comment(s): HX OF CVA X3 (LAST 11/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 [place] 2011. DVT RT AXILLA. RENAL FAILURE. LOW THYROID, PERIPHERAL NEUROPATHY HANDS & FEET. ANEMIA. HX OF DKA. USES W/ C. CONSTIPATION, ESOPHAGITIS. EPIGLOTITIS. HEADACHES SINCE CVA. RETINOPATHY SHIVA EYES. HX RT TOE INFECTION- GANGRENE, HAD AMP. Last Myocardial Infarction Date:: 2011 History of Any Multi-Drug Resistant Organisms: MRSA Date of last positivie culture/infection: 02/17/2013 MDRO Source:: Right Foot Past Surgical History: Appendectomy, Section, Cholecystectomy, Heart Catheterization With Stent, Hysterectomy, Orthopedic Surgery Additional Past Surgical History / Comment(s): Amputation Rt 2ND Toe. C-S X3. EGD. Bronchoscopy. RT Arm Port Placed FOR AB RX; Removed. 6 CARDIAC STENTS. left shoulder bone removed Past Anesthesia/Blood Transfusion Reactions: No Reported Reaction Additional Past Anesthesia/Blood Transfusion Reaction / Comment(s): HX OF BLOOD TRANSFUSION- NO REACTION Date of Last Stent Placement:: July 2012 Past Psychological History: Anxiety, Bipolar, Depression Additional Psychological History / Comment(s): PT HAS A STAMPER BLOCKER-DOMINIQUE. DOMINIQUE STATED PT UNABLE TO AMBULATE(LT SIDE WAS AFFECTED BY STROKE) USES A W/C. Smoking Status: Former smoker Past Alcohol Use History: None Reported Additional Past Alcohol Use History / Comment(s): Patient states she is using a vaper cigarettes. She has a 24-hour caregiver that lives with her. She is wheelchair bound. Past Drug Use History: None Reported - Past Family History Father Family Medical History: Unable to Obtain, Coronary Artery Disease (CAD), Diabetes Mellitus Mother Family Medical History: COPD General Exam Limitations: no limitations General appearance: alert, in no apparent distress, other (Patient states left facial droop and left arm weakness are chronic and unchanged.) Head exam: Present: atraumatic Eye exam: Present: normal appearance, PERRL ENT exam: Present: normal oropharynx Neck exam: Present: normal inspection Respiratory exam: Present: normal lung sounds bilaterally Cardiovascular Exam: Present: regular rate, normal rhythm Expanded Peripheral pulses: 2+: Radial (R), Radial (L), Dorsalis Pedis (R), Dorsalis Pedis (L) GI/Abdominal exam: Present: soft. Absent: tenderness Extremities exam: Present: other (Left arm contracted). Absent: pedal edema, calf tenderness Neurological exam: Present: alert, CN II-XII intact (Except for left facial droop), motor sensory deficit (Left arm weakness), other (Left arm weakness and contraction. Patient states chronic. Left facial weakness/droop patient states chronic.) Expanded Motor strength exam: RUE: 5, LUE: 2/1, RLE: 5, LLE: 5 Psychiatric exam: Present: normal affect, normal mood Skin exam: Present: normal color Course Vital Signs 06/07/17 06/07/17 14:11 14:56 Temperature 98.5 F Pulse Rate 82 75 Respiratory 16 16 Rate Blood Pressure 124/58 133/68 O2 Sat by Pulse 100 100 Oximetry EKG Findings - EKG Comments: EKG Findings:: Normal sinus rhythm 78. MD 134. QRS 80. QT 400. QTc 456. Normal axis. Normal QRS. No acute ST change. Medical Decision Making - Medical Decision Making Patient reevaluated and resting comfortably in bed. No headache at this time. No chest discomfort at this time. Case was discussed in detail with Dr. Chen , who will admit his patient. - Lab Data Result diagrams: 06/07/17 14:42 06/07/17 14:42 Lab Results 06/07/17 06/07/17 06/07/17 Range/Units 14:42 14:42 14:42 WBC 4.5 (3.8-10.6) k/uL RBC 3.32 L (3.80-5.40) m/uL Hgb 10.1 L (11.4-16.0) gm/dL Hct 32.1 L (34.0-46.0) % MCV 96.7 (80.0-100.0) fL MCH 30.5 (25.0-35.0) pg MCHC 31.5 (31.0-37.0) g/dL RDW 13.8 (11.5-15.5) % Plt Count 166 (150-450) k/uL Neutrophils % 61 % Lymphocytes % 31 % Monocytes % 5 % Eosinophils % 1 % Basophils % 0 % Neutrophils # 2.7 (1.3-7.7) k/uL Lymphocytes # 1.4 (1.0-4.8) k/uL Monocytes # 0.2 (0-1.0) k/uL Eosinophils # 0.0 (0-0.7) k/uL Basophils # 0.0 (0-0.2) k/uL PT 10.1 (9.0-12.0) sec INR 1.0 (<1.2) APTT 21.1 L (22.0-30.0) sec Sodium 139 (137-145) mmol/L Potassium 5.1 (3.5-5.1) mmol/L Chloride 103 (98-107) mmol/L Carbon Dioxide 27 (22-30) mmol/L Anion Gap 9 mmol/L BUN 32 H (7-17) mg/dL Creatinine 1.10 H (0.52-1.04) mg/dL Est GFR (MDRD) Af Amer >60 (>60 ml/min/1.73 sqM) Est GFR (MDRD) Non-Af 51 (>60 ml/min/1.73 sqM) Glucose 402 H (74-99) mg/dL Calcium 9.1 (8.4-10.2) mg/dL Magnesium 1.9 (1.6-2.3) mg/dL Total Bilirubin 0.3 (0.2-1.3) mg/dL AST 18 (14-36) U/L ALT 40 (9-52) U/L Alkaline Phosphatase 53 (38-126) U/L Total Creatine Kinase (30-135) U/L CK-MB (CK-2) (0.0-2.4) ng/mL CK-MB (CK-2) Rel Index Troponin I (0.000-0.034) ng/mL Total Protein 6.1 L (6.3-8.2) g/dL Albumin 3.5 (3.5-5.0) g/dL Valproic Acid <10.0 ug/mL Influenza Type A RNA (Not Detectd) Influenza Type B (PCR) (Not Detectd) 06/07/17 06/07/17 Range/Units 14:42 15:00 WBC (3.8-10.6) k/uL RBC (3.80-5.40) m/uL Hgb (11.4-16.0) gm/dL Hct (34.0-46.0) % MCV (80.0-100.0) fL MCH (25.0-35.0) pg MCHC (31.0-37.0) g/dL RDW (11.5-15.5) % Plt Count (150-450) k/uL Neutrophils % % Lymphocytes % % Monocytes % % Eosinophils % % Basophils % % Neutrophils # (1.3-7.7) k/uL Lymphocytes # (1.0-4.8) k/uL Monocytes # (0-1.0) k/uL Eosinophils # (0-0.7) k/uL Basophils # (0-0.2) k/uL PT (9.0-12.0) sec INR (<1.2) APTT (22.0-30.0) sec Sodium (137-145) mmol/L Potassium (3.5-5.1) mmol/L Chloride (98-107) mmol/L Carbon Dioxide (22-30) mmol/L Anion Gap mmol/L BUN (7-17) mg/dL Creatinine (0.52-1.04) mg/dL Est GFR (MDRD) Af Amer (>60 ml/min/1.73 sqM) Est GFR (MDRD) Non-Af (>60 ml/min/1.73 sqM) Glucose (74-99) mg/dL Calcium (8.4-10.2) mg/dL Magnesium (1.6-2.3) mg/dL Total Bilirubin (0.2-1.3) mg/dL AST (14-36) U/L ALT (9-52) U/L Alkaline Phosphatase (38-126) U/L Total Creatine Kinase 40 (30-135) U/L CK-MB (CK-2) 1.2 (0.0-2.4) ng/mL CK-MB (CK-2) Rel Index 3.0 Troponin I <0.012 (0.000-0.034) ng/mL Total Protein (6.3-8.2) g/dL Albumin (3.5-5.0) g/dL Valproic Acid ug/mL Influenza Type A RNA Not Detected (Not Detectd) Influenza Type B (PCR) Not Detected (Not Detectd) - Radiology Data Radiology results: image reviewed (Chest x-ray shows no acute cardiopulmonary process.) Disposition Clinical Impression: Chest pain Disposition: ADMITTED IP TO THIS HOSP Referrals: Sherlyn Chen MD [Primary Care Provider] - 1-2 days Decision Time: 16:00
[2017-06-07 14:59] LABS: Basophils % (A) 0 %; Eosinophils % (A) 1 %; HCT 32.1 % (34.0-46.0); HGB 10.1 gm/dL (11.4-16.0); Lymphocytes # (A) 1.4 k/uL (1.0-4.8); Lymphocytes % (A) 31 %; MCH 30.5 pg (25.0-35.0); MCHC 31.5 g/dL (31.0-37.0); MCV 96.7 fL (80.0-100.0); Mean Platelet Volume 8.2; Monocytes # (A) 0.2 k/uL (0-1.0); Monocytes % (A) 5 %; Neutrophils # (A) 2.7 k/uL (1.3-7.7); Neutrophils % (A) 61 %; Platelet Count 166 k/uL (150-450); RBC 3.32 m/uL (3.80-5.40); RDW 13.8 % (11.5-15.5); WBC 4.5 k/uL (3.8-10.6)
[2017-06-07 15:13] LABS: Prothrombin Time 10.1 sec (9.0-12.0)
[2017-06-07 15:16] LABS: ALT 40 U/L (9-52); AST 18 U/L (14-36); Albumin 3.5 g/dL (3.5-5.0); Alkaline Phosphatase 53 U/L (38-126); Anion Gap 9 mmol/L; Blood Urea Nitrogen 32 mg/dL (7-17); Calcium 9.1 mg/dL (8.4-10.2); Carbon Dioxide 27 mmol/L (22-30); Chloride 103 mmol/L (98-107); Glucose 402 mg/dL (74-99); Magnesium 1.9 mg/dL (1.6-2.3); Potassium 5.1 mmol/L (3.5-5.1); Sodium 139 mmol/L (137-145); Total Bilirubin 0.3 mg/dL (0.2-1.3); Total Protein 6.1 g/dL (6.3-8.2)
[2017-06-07 15:20] LABS: Creatine Kinase 40 U/L (30-135)
[2017-06-07 15:21] LABS: Valproic Acid (Depakene) <10.0 ug/mL
[2017-06-07 15:33] LABS: Creatine Kinase MB 1.2 ng/mL (0.0-2.4); Troponin I <0.012 ng/mL (0.000-0.034)
--- NOTE | 2017-06-07 15:36 | XR ---
EXAMINATION TYPE: XR chest 2V DATE OF EXAM: 06/07/2017 COMPARISON: 04/19/1717 HISTORY: Chest pain and vomiting TECHNIQUE: Frontal and lateral views of the chest are obtained. FINDINGS: There is no focal air space opacity, pleural effusion, or pneumothorax seen. The cardiac silhouette size is within normal limits. The osseous structures are intact. Mild multilevel degener ative change of the thoracic spine are noted. Dense coronary calcifications versus cardiac stents are incidentally seen. IMPRESSION: No acute cardiopulmonary process.
[2017-06-07 15:40] LABS: Partial Thromboplastin Time 21.1 sec (22.0-30.0)
[2017-06-07] MEDS ORDERED: NITROGLYCERIN SL TABS 0.4 MG TAB SUBLINGUAL PRN (16:01)
[2017-06-07] MEDS: INSULIN ASPART 100 UNIT/ML 1 ML 10 ML VIAL SQ SCH ×2 (17:01→22:40)
[2017-06-07 17:07] LABS: Glucose,Whole Blood 408 mg/dL (75-99)
[2017-06-07 17:40] LABS: Glucose,Whole Blood 389 mg/dL (75-99)
[2017-06-07 21:16] LABS: Glucose,Whole Blood 321 mg/dL (75-99)
[2017-06-07] MEDS ORDERED: HYDROcodone/APAP 10-325MG 1 EACH TAB PO PRN (21:17)
[2017-06-07] MEDS ORDERED: ERGOCALCIFEROL 50,000 UNIT CAP PO SCH (21:30)
[2017-06-07 21:37] LABS: Creatine Kinase 50 U/L (30-135)
[2017-06-07] MEDS ORDERED: INSULIN DETEMIR 100 UNIT/ML 10 ML VIAL SQ SCH (21:45)
[2017-06-07 21:50] LABS: Creatine Kinase MB 1.4 ng/mL (0.0-2.4); Troponin I <0.012 ng/mL (0.000-0.034)
[2017-06-07] MEDS: DOCUSATE 100 MG CAP PO SCH ×2 (22:41→22:46)
[2017-06-07] MEDS: ALPRAZolam 0.5 MG TAB PO SCH (22:42)
[2017-06-07] MEDS: NITROGLYCERIN OINT 1 INCH/GM PACKET TOPICAL SCH (22:42)
[2017-06-07] MEDS: ATORVASTATIN 20 MG TAB PO SCH (22:44)
[2017-06-07] MEDS: FAMOTIDINE 20 MG TAB PO SCH (22:45)
[2017-06-07] MEDS: METOCLOPRAMIDE 5 MG TAB PO SCH (22:46)
[2017-06-08] MEDS: NITROGLYCERIN OINT 1 INCH/GM PACKET TOPICAL SCH ×4 (00:24→18:00)
[2017-06-08 03:39] LABS: Cholesterol 146 mg/dL (<200); HDL Cholesterol 50 mg/dL (40-60); LDL Cholesterol,Calculated 76 mg/dL (0-99); Triglycerides 101 mg/dL (<150)
[2017-06-08 03:54] LABS: Creatine Kinase 58 U/L (30-135)
[2017-06-08 04:05] LABS: Creatine Kinase MB 1.4 ng/mL (0.0-2.4); Troponin I <0.012 ng/mL (0.000-0.034)
[2017-06-08 07:17] LABS: Glucose,Whole Blood 216 mg/dL (75-99)
[2017-06-08] MEDS: ALBUTEROL NEBULIZED 2.5 MG/3 ML INHALATION PRN ×4 (07:55→20:05)
[2017-06-08] MEDS: SYMBICORT 160-4.5 MCG INHALER INHALATION SCH ×2 (07:55→20:05)
[2017-06-08] MEDS ORDERED: FERROUS SULFATE 325 MG TAB PO SCH ×2 (09:00→12:00)
[2017-06-08 09:40] LABS: Basophils % (A) 0 %; Eosinophils # (A) 0.1 k/uL (0-0.7); Eosinophils % (A) 1 %; HCT 34.8 % (34.0-46.0); HGB 11.1 gm/dL (11.4-16.0); Lymphocytes # (A) 2.5 k/uL (1.0-4.8); Lymphocytes % (A) 38 %; MCH 30.3 pg (25.0-35.0); MCV 94.8 fL (80.0-100.0); Mean Platelet Volume 8.1; Monocytes # (A) 0.4 k/uL (0-1.0); Monocytes % (A) 5 %; Neutrophils # (A) 3.5 k/uL (1.3-7.7); Neutrophils % (A) 54 %; Platelet Count 202 k/uL (150-450); RBC 3.67 m/uL (3.80-5.40); RDW 13.6 % (11.5-15.5); WBC 6.6 k/uL (3.8-10.6)
[2017-06-08 10:05] LABS: Albumin 4.2 g/dL (3.5-5.0); Potassium 4.4 mmol/L (3.5-5.1); Total Bilirubin 0.3 mg/dL (0.2-1.3); Total Protein 7.1 g/dL (6.3-8.2)
[2017-06-08] MEDS: INSULIN ASPART 100 UNIT/ML 1 ML 10 ML VIAL SQ SCH ×3 (11:09→18:06)
[2017-06-08] MEDS: METOCLOPRAMIDE 5 MG TAB PO SCH ×3 (11:28→18:06)
[2017-06-08] MEDS: B COMPLEX-VIT C-VIT E-ZINC 1 EACH TAB PO SCH (11:28)
[2017-06-08] MEDS: ASPIRIN 325 MG TAB PO SCH (11:28)
[2017-06-08] MEDS: DULoxetine HCL 60 MG CAPSULE.DR PO SCH (11:28)
[2017-06-08] MEDS: ALPRAZolam 0.5 MG TAB PO SCH ×3 (11:28→20:06)
[2017-06-08] MEDS: FAMOTIDINE 20 MG TAB PO SCH (11:28)
[2017-06-08] MEDS: VALPROIC ACID ORAL SOLN 250 MG/5 ML CUP PO SCH (11:29)
--- NOTE | 2017-06-08 11:42 | P.CRDCN ---
History of Present Illness Consult date: 06/08/17 History of present illness: Mrs. Jackson is a pleasant 56 year-old female with past medical history significant for inferior wall TX requiring stent to RCA in 2006, diabetes mellitus, hypertension, dyslipidemia, CVA with residual left sided paralysis, COPD and neuropathy. She has seen Dr. Erickson in the office. She lives at home with a full-time caregiver. We have been asked to see her in consultation for complaints of chest pain. At the time of my exam the patient is seen sitting up in bed behaving very jittery and removing her clothes. She is rocking back and forth in bed and talking loudly and forcefully. She denies chest pain, shortness of breath, dizziness, palpitations, nausea, vomiting or diaphoresis. She seems to be a very poor historian and is unclear of why she is here. Per ER notes she had an episode of chest discomfort that lasted approximately 20 minutes with a headache and congestion with nasal drainage. She was last here in the hospital with syncope and was recommended to have event monitor but declined. EKG reveals sinus mechanism with no acute ST or T-wave abnormalities. Cardiac enzymes negative x3, hgb 11.1, platelets 202, potassium 4.4, creatinine 1.35, LDL 76, HDL 50. Chest xray negative for an acute cardiopulmonary process. Current cardiac medications include atorvastatin 20 mg and aspirin 81mg. Most recent catheterization from 2007 reveals mild intimal disease of LAD at the teakoff of the first diagonal branch with no evidence of stent restenosis in RCA. Most recent echocardiogram on file from 03/2018 preserved LV function with EF 65 -70%, trace MR and TR. Review of Systems At the time of my exam: CONSTITUTIONAL: Denies fever. Denies chills. EYES: Denies blurred vision. Denies vision changes. Denies eye pain. EARS, NOSE, MOUTH & THROAT: Denies headache. Denies sore throat. Denies ear pain. CARDIOVASCULAR: Denies chest pain. Denies shortness of breath. Denies orthopnea. Denies PND. Denies palpitations. RESPIRATORY: Denies cough. GASTROINTESTINAL: Denies abdominal pain. Denies diarrhea. Denies constipation. Denies nausea. Denies vomiting. MUSCULOSKELETAL: Denies myalgias. INTEGUMENTARY: Denies pruitis. Denies rash. NEUROLOGIC: Denies numbness. Denies tingling. Denies weakness. PSYCHIATRIC: Denies anxiety. Denies depression. ENDOCRINE: Denies fatigue. Denies weight change. Denies polydipsia. Denies polyurina. GENITOURINARY: Denies burning, hematuria or urgency with micturation. HEMATOLOGIC: Denies history of anemia. Denies bleeding. 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 [place] 2011. DVT RT AXILLA. RENAL FAILURE. LOW THYROID, PERIPHERAL NEUROPATHY HANDS & FEET. ANEMIA. HX OF DKA. USES W/ C. CONSTIPATION, ESOPHAGITIS. EPIGLOTITIS. HEADACHES SINCE CVA. RETINOPATHY SHIVA EYES. HX RT TOE INFECTION- GANGRENE, HAD AMP."i need eye sx-i have bleeding behind the eyes" Last Myocardial Infarction Date:: 2011 History of Any Multi-Drug Resistant Organisms: MRSA Date of last positivie culture/infection: 02/17/2013 MDRO Source:: Right Foot Past Surgical History: Appendectomy, Section, Cholecystectomy, Heart Catheterization With Stent, Hysterectomy, Orthopedic Surgery Additional Past Surgical History / Comment(s): Amputation Rt 2ND Toe. C-S X3. EGD. Bronchoscopy. RT Arm Port Placed FOR AB RX; Removed. 6 CARDIAC STENTS. left shoulder bone removed Past Anesthesia/Blood Transfusion Reactions: No Reported Reaction Additional Past Anesthesia/Blood Transfusion Reaction / Comment(s): HX OF BLOOD TRANSFUSION- NO REACTION Date of Last Stent Placement:: July 2012 Smoking Status: Former smoker - Past Family History Father Family Medical History: Unable to Obtain, Coronary Artery Disease (CAD), Diabetes Mellitus Mother Family Medical History: COPD Medications and Allergies Home Medications Medication Instructions Recorded Confirmed Type Nitroglycerin Sl Tabs [Nitrostat] 0.4 mg SUBLINGUAL Q5M PRN 06/14/14 06/07/17 History Albuterol Inhaler [Ventolin Hfa 2 puff INHALATION RT-Q4H PRN 07/19/15 06/07/17 History Inhaler] Aspirin EC [Ecotrin Low Dose] 81 mg PO DAILY 07/19/15 06/07/17 History Atorvastatin [Lipitor] 20 mg PO HS 07/19/15 06/07/17 History Famotidine [Pepcid] 20 mg PO BID 07/19/15 06/07/17 History Metoclopramide [Reglan] 5 mg PO AC-TID 07/19/15 06/07/17 History Valproic Acid [Depakene] 250 mg PO DAILY 07/19/15 06/07/17 History Budesonide-Formot 160-4.5 Mcg 2 puff INHALATION RT-BID 03/05/16 06/07/17 History [Symbicort 160-4.5 Mcg Inhaler] Ergocalciferol [Vitamin D2 50,000 unit PO Q7D 03/05/16 06/07/17 History (DRISDOL)] HYDROcodone/APAP 10-325MG [[place] 1 tab PO Q6H PRN 10/03/16 06/07/17 History 10-325] DULoxetine HCL [Cymbalta] 60 mg PO DAILY 02/16/17 06/07/17 History Ferrous Sulfate [Iron (65 MG 325 mg PO DAILY 02/16/17 06/07/17 History Elemental)] Insulin Lispro [humaLOG] 4 units SQ AC-TID 02/16/17 06/07/17 History ALPRAZolam [Xanax] 1 mg PO TID 02/19/17 06/07/17 History Docusate [Colace] 100 mg PO BID 06/07/17 06/07/17 History EPINEPHrine (Auto Inject) [Epipen] 0.3 mg IM ONCE PRN 06/07/17 06/07/17 History Glucagon Emergency Kit 1 mg SQ ONCE PRN 06/07/17 06/07/17 History Insulin Glargine [Lantus] 20 unit SQ HS 06/07/17 06/07/17 History Ondansetron HCl [Zofran] 4 mg PO DAILY PRN 06/07/17 06/07/17 History SILVER sulfADIAZINE Cream 1 applic TOPICAL DAILY 06/07/17 06/07/17 History [Silvadene 1% Cream] Vitamin B Complex 1 cap PO DAILY 06/07/17 06/07/17 History Allergies Allergy/AdvReac Type Severity Reaction Status Date / Time Barbiturates Allergy Rash/Hives Verified 06/07/17 15:02 cephalexin monohydrate Allergy Rash/Hives Verified 06/07/17 15:02 [From Keflex] morphine Allergy Rash/Hives Verified 06/07/17 15:02 Penicillins Allergy Rash/Hives Verified 06/07/17 15:02 phenobarbital Allergy Swelling Verified 06/07/17 14:20 venom-honey bee Allergy Swelling Verified 06/07/17 15:02 [bee venom (honey bee)] amlodipine besylate AdvReac Vomiting Verified 06/07/17 14:20 [From [facility]] Physical Exam Vitals: Vital Signs Temp Pulse Pulse Resp BP BP Pulse Ox 06/08/17 08:10 76 06/08/17 07:58 98.1 F 74 18 124/68 95 06/08/17 07:56 76 06/08/17 04:00 18 06/08/17 01:15 98 F 76 18 134/67 99 06/08/17 00:00 18 06/07/17 20:00 98.7 F 80 18 142/78 97 06/07/17 18:20 90 16 06/07/17 17:45 98.6 F 90 16 140/66 96 06/07/17 16:33 98.8 F 06/07/17 16:32 65 18 145/76 97 06/07/17 14:56 75 16 133/68 100 06/07/17 14:11 98.5 F 82 16 124/58 100 Intake and Output 06/07/17 06/08/17 06/08/17 22:59 06:59 14:59 Intake Total 236 Balance 236 Intake: Oral 236 Other: Voiding Method Bedside Commode # Voids 3 Weight 55.792 kg Blood pressure 124/68 heart rate 74 afebrile GENERAL: This is a 56-year-old female in no apparent distress at the time of my examination. HEENT: Head is atraumatic, normocephalic. Pupils are equal, round. Sclerae anicteric. Conjunctivae are clear. Mucous membranes of the mouth are moist. Neck is supple. There is no jugular venous distention. No carotid bruit is heard. LUNGS: Clear to auscultation no wheezes, rales or rhonchi. No chest wall tenderness is noted on palpation or with deep breathing. HEART: Regular rate and rhythm without murmurs, rubs or gallops. S1 and S2 heard. ABDOMEN: Soft, nontender. Bowel sounds are heard. No organomegaly noted. EXTREMITIES: 2+ peripheral pulses with no evidence of peripheral edema and no calf tenderness noted. Left-sided weakness secondary to prior CVA. NEUROLOGIC: Patient is awake, alert with confusion at baseline. Results 06/08/17 09:04 06/08/17 09:04 Cardiac Enzymes 06/07/17 06/07/17 06/07/17 Range/Units 14:42 14:42 20:38 AST 18 (14-36) U/L CK-MB (CK-2) 1.2 1.4 (0.0-2.4) ng/mL Troponin I <0.012 <0.012 (0.000-0.034) ng/mL 06/08/17 06/08/17 Range/Units 03:09 09:04 AST 19 (14-36) U/L CK-MB (CK-2) 1.4 (0.0-2.4) ng/mL Troponin I <0.012 (0.000-0.034) ng/mL Coagulation 06/07/17 Range/Units 14:42 PT 10.1 (9.0-12.0) sec APTT 21.1 L (22.0-30.0) sec Lipids 06/08/17 Range/Units 03:09 Triglycerides 101 (<150) mg/dL Cholesterol 146 (<200) mg/dL HDL Cholesterol 50 (40-60) mg/dL CBC 06/07/17 06/08/17 Range/Units 14:42 09:04 WBC 4.5 6.6 (3.8-10.6) k/uL RBC 3.32 L 3.67 L (3.80-5.40) m/uL Hgb 10.1 L 11.1 L (11.4-16.0) gm/dL Hct 32.1 L 34.8 (34.0-46.0) % Plt Count 166 202 (150-450) k/uL Comprehensive Metabolic Panel 06/07/17 06/08/17 Range/Units 14:42 09:04 Sodium 139 142 (137-145) mmol/L Potassium 5.1 4.4 (3.5-5.1) mmol/L Chloride 103 103 (98-107) mmol/L Carbon Dioxide 27 27 (22-30) mmol/L BUN 32 H 36 H (7-17) mg/dL Creatinine 1.10 H 1.35 H (0.52-1.04) mg/dL Glucose 402 H 233 H (74-99) mg/dL Calcium 9.1 10.0 (8.4-10.2) mg/dL AST 18 19 (14-36) U/L ALT 40 44 (9-52) U/L Alkaline Phosphatase 53 65 (38-126) U/L Total Protein 6.1 L 7.1 (6.3-8.2) g/dL Albumin 3.5 4.2 (3.5-5.0) g/dL Current Medications Generic Name Dose Route Start Last Admin Trade Name Freq PRN Reason Stop Dose Admin Hydrocodone Bitart/Acetaminophen 1 each 06/07/17 21:17 [place] 10 PO Q6H PRN Pain Albuterol Sulfate 2.5 mg 06/07/17 21:17 06/08/17 07:55 Ventolin Nebulized INHALATION 2.5 mg RT-Q4H PRN Administration Shortness Of Breath Alprazolam 1 mg 06/07/17 22:00 06/07/17 22:42 Xanax PO 1 mg TID HUMAIRA Administration Aspirin 325 mg 06/08/17 09:00 Aspirin PO DAILY [facility] Atorvastatin Calcium 20 mg 06/07/17 21:30 06/07/17 22:44 Lipitor PO 20 mg HS HUMAIRA Administration Budesonide/Formoterol Fumarate 2 puff 06/08/17 08:00 06/08/17 07:55 Symbicort 160-4.5 Mcg Inhaler INHALATION 2 puff RT-BID HUMAIRA Administration Docusate Sodium 100 mg 06/07/17 21:30 06/07/17 22:46 Colace PO 100 mg BID HUMAIRA Administration Duloxetine HCl 60 mg 06/08/17 09:00 Cymbalta PO DAILY [facility] Ergocalciferol 50,000 unit 06/07/17 21:30 06/07/17 22:45 Vitamin D2 PO 50,000 unit Q7D HUMAIRA Administration Famotidine 20 mg 06/07/17 21:30 06/07/17 22:45 Pepcid PO 20 mg BID [facility] Administration Ferrous Sulfate 325 mg 01/09/18 09:00 Feosol PO DAILY HUMAIRA Insulin Aspart 0 unit 06/07/17 17:30 06/07/17 22:40 Novolog SQ 5 unit ACHS HUMAIRA Administration Protocol Insulin Detemir 20 unit 06/07/17 21:45 06/07/17 22:41 Levemir SQ 20 unit HS HUMAIRA Administration Metoclopramide HCl 5 mg 06/07/17 21:30 06/07/17 22:46 Reglan PO 5 mg AC-TID HUMAIRA Administration Nitroglycerin 1 inch 06/07/17 18:00 06/08/17 06:51 Nitro-Bid Oint TOPICAL Not Given Q6HR HUMAIRA Nitroglycerin 0.4 mg 06/07/17 16:01 Nitrostat SUBLINGUAL Q5M PRN Chest Pain Silver Sulfadiazine 1 applic 06/07/17 21:30 06/07/17 22:42 Silvadene Cream TOPICAL Not Given DAILY HUMAIRA Valproic Acid 250 mg 06/08/17 09:00 Depakene Syrup PO DAILY [facility] Vitamin B Complex/Vit C/Vit E/Zinc 1 each 06/08/17 09:00 Z-Bec PO DAILY HUMAIRA Intake and Output 06/07/17 06/08/17 06/08/17 22:59 06:59 14:59 Intake Total 236 Balance 236 Intake: Oral 236 Other: Voiding Method Bedside Commode # Voids 3 Weight 55.792 kg 06/08/17 09:04 06/08/17 09:04 Assessment and Plan Assessment: ASSESSMENT 1. Chest pain, atypical. Negative cardiac enzymes and a normal EKG acute coronary event has been ruled out. 2. History of coronary artery disease. Patent stent to the RCA mild 10-20% disease of the LAD. 3. Diabetes mellitus 4. Hypertension 5. Dyslipidemia 6. History of CVA 7. COPD PLAN Acute coronary event has been ruled out. Continue current cardiac medications to include aspirin 81 mg and atorvastatin 20 mg. No further cardiac workup at this time. She can follow-up with Dr. Erickson in the office as an outpatient. He kindly for this consultation. The above impression and plan of care have been discussed and directed by the signing physician. Klaudia Ventura, nurse practitioner, acting as scribe for signing physician.
[2017-06-08 11:56] LABS: Glucose,Whole Blood 425 mg/dL (75-99)
[2017-06-08 12:20] LABS: Hemoglobin A1C 9.4 % (4.0-6.0)
--- NOTE | 2017-06-08 13:06 | P.HPIM ---
History of Present Illness H&P Date: 06/08/17 Chief Complaint: Chest pain This is a 56-year-old female with a known past medical history of CVA with left- sided paresis, myocardial infarction, coronary artery disease with previous cardiac stents and uncontrolled diabetes mellitus. Also has a history of chronic renal failure, hypertension and hyperlipidemia. Patient presents to emergency room with complaints of chest pain in the center of her chest. She reports it felt like a ton of bricks sitting on her chest. She reports some shortness of breath. Also had an episode of vomiting and diarrhea. Also complaining of a headache on the left side of her head with some left-sided facial numbness. Troponins were negative 3 sets. EKG had shown normal sinus rhythm. Chest x-ray was negative. Influenza swab negative. Cardiology consulted. Last heart catheterization was in 2007 showing mild intimal disease of the LAD no evidence of stent restenosis in the RCA. Patient seen by cardiology. Recommend current cardiac medications. No further cardiac workup required. IN was ruled out. However with patient's history of stroke and reporting some left facial numbness and headache. 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 IN 2011. DVT RT AXILLA. RENAL FAILURE. LOW THYROID, PERIPHERAL NEUROPATHY HANDS & FEET. ANEMIA. HX OF DKA. USES W/ C. CONSTIPATION, ESOPHAGITIS. EPIGLOTITIS. HEADACHES SINCE CVA. RETINOPATHY SHIVA EYES. HX RT TOE INFECTION- GANGRENE, HAD AMP."i need eye sx-i have bleeding behind the eyes" Last Myocardial Infarction Date:: 2011 History of Any Multi-Drug Resistant Organisms: MRSA Date of last positivie culture/infection: 02/17/2013 MDRO Source:: Right Foot Past Surgical History: Appendectomy, Section, Cholecystectomy, Heart Catheterization With Stent, Hysterectomy, Orthopedic Surgery Additional Past Surgical History / Comment(s): Amputation Rt 2ND Toe. C-S X3. EGD. Bronchoscopy. RT Arm Port Placed FOR AB RX; Removed. 6 CARDIAC STENTS. left shoulder bone removed Past Anesthesia/Blood Transfusion Reactions: No Reported Reaction Additional Past Anesthesia/Blood Transfusion Reaction / Comment(s): HX OF BLOOD TRANSFUSION- NO REACTION Date of Last Stent Placement:: July 2012 Smoking Status: Former smoker - Past Family History Father Family Medical History: Unable to Obtain, Coronary Artery Disease (CAD), Diabetes Mellitus Mother Family Medical History: COPD Medications and Allergies Home Medications Medication Instructions Recorded Confirmed Type Nitroglycerin Sl Tabs [Nitrostat] 0.4 mg SUBLINGUAL Q5M PRN 06/14/14 06/07/17 History Albuterol Inhaler [Ventolin Hfa 2 puff INHALATION RT-Q4H PRN 07/19/15 06/07/17 History Inhaler] Aspirin EC [Ecotrin Low Dose] 81 mg PO DAILY 07/19/15 06/07/17 History Atorvastatin [Lipitor] 20 mg PO HS 07/19/15 06/07/17 History Famotidine [Pepcid] 20 mg PO BID 07/19/15 06/07/17 History Metoclopramide [Reglan] 5 mg PO AC-TID 07/19/15 06/07/17 History Valproic Acid [Depakene] 250 mg PO DAILY 07/19/15 06/07/17 History Budesonide-Formot 160-4.5 Mcg 2 puff INHALATION RT-BID 03/05/16 06/07/17 History [Symbicort 160-4.5 Mcg Inhaler] Ergocalciferol [Vitamin D2 50,000 unit PO Q7D 03/05/16 06/07/17 History (DRISDOL)] HYDROcodone/APAP 10-325MG [[place] 1 tab PO Q6H PRN 10/03/16 06/07/17 History 10-325] DULoxetine HCL [Cymbalta] 60 mg PO DAILY 02/16/17 06/07/17 History Ferrous Sulfate [Iron (65 MG 325 mg PO DAILY 02/16/17 06/07/17 History Elemental)] Insulin Lispro [humaLOG] 4 units SQ AC-TID 02/16/17 06/07/17 History ALPRAZolam [Xanax] 1 mg PO TID 02/19/17 06/07/17 History Docusate [Colace] 100 mg PO BID 06/07/17 06/07/17 History EPINEPHrine (Auto Inject) [Epipen] 0.3 mg IM ONCE PRN 06/07/17 06/07/17 History Glucagon Emergency Kit 1 mg SQ ONCE PRN 06/07/17 06/07/17 History Insulin Glargine [Lantus] 20 unit SQ HS 06/07/17 06/07/17 History Ondansetron HCl [Zofran] 4 mg PO DAILY PRN 06/07/17 06/07/17 History SILVER sulfADIAZINE Cream 1 applic TOPICAL DAILY 06/07/17 06/07/17 History [Silvadene 1% Cream] Vitamin B Complex 1 cap PO DAILY 06/07/17 06/07/17 History Allergies Allergy/AdvReac Type Severity Reaction Status Date / Time Barbiturates Allergy Rash/Hives Verified 06/07/17 15:02 cephalexin monohydrate Allergy Rash/Hives Verified 06/07/17 15:02 [From Keflex] morphine Allergy Rash/Hives Verified 06/07/17 15:02 Penicillins Allergy Rash/Hives Verified 06/07/17 15:02 phenobarbital Allergy Swelling Verified 06/07/17 14:20 venom-honey bee Allergy Swelling Verified 06/07/17 15:02 [bee venom (honey bee)] amlodipine besylate AdvReac Vomiting Verified 06/07/17 14:20 [From [facility]] Physical Exam Vitals: Vital Signs Temp Pulse Pulse Resp BP BP Pulse Ox 06/08/17 12:29 76 06/08/17 12:20 76 06/08/17 12:00 98.1 F 98 18 128/61 100 06/08/17 08:10 76 06/08/17 07:58 98.1 F 74 18 124/68 95 06/08/17 07:56 76 06/08/17 04:00 18 06/08/17 01:15 98 F 76 18 134/67 99 06/08/17 00:00 18 06/07/17 20:00 98.7 F 80 18 142/78 97 06/07/17 18:20 90 16 06/07/17 17:45 98.6 F 90 16 140/66 96 06/07/17 16:33 98.8 F 06/07/17 16:32 65 18 145/76 97 06/07/17 14:56 75 16 133/68 100 06/07/17 14:11 98.5 F 82 16 124/58 100 Intake and Output 06/07/17 06/08/17 06/08/17 22:59 06:59 14:59 Intake Total 236 Balance 236 Intake: Oral 236 Other: Voiding Method Bedside Commode # Voids 3 Weight 55.792 kg Head normocephalic Neck supple Lungs clear to auscultation bilaterally no wheezing or crackles Heart regular rate and rhythm S1-S2, no rub or gallop Abdomen is soft nontender nondistended positive bowel sounds no hepatosplenomegaly Extremities no edema Neuro alert and orientated to 3. Left sided paralysis affecting the arm and leg Results CBC & Chem 7: 06/08/17 09:04 06/08/17 09:04 Labs: Abnormal Lab Results - Last 24 Hours (Table) 06/07/17 06/07/17 06/07/17 Range/Units 14:42 14:42 14:42 RBC 3.32 L (3.80-5.40) m/uL Hgb 10.1 L (11.4-16.0) gm/dL Hct 32.1 L (34.0-46.0) % APTT 21.1 L (22.0-30.0) sec BUN 32 H (7-17) mg/dL Creatinine 1.10 H (0.52-1.04) mg/dL Glucose 402 H (74-99) mg/dL POC Glucose (mg/dL) (75-99) mg/dL Total Protein 6.1 L (6.3-8.2) g/dL 06/07/17 06/07/17 06/07/17 Range/Units 16:48 17:37 20:56 RBC (3.80-5.40) m/uL Hgb (11.4-16.0) gm/dL Hct (34.0-46.0) % APTT (22.0-30.0) sec BUN (7-17) mg/dL Creatinine (0.52-1.04) mg/dL Glucose (74-99) mg/dL POC Glucose (mg/dL) 408 H 389 H 321 H (75-99) mg/dL Total Protein (6.3-8.2) g/dL 06/08/17 06/08/17 06/08/17 Range/Units 07:11 09:04 09:04 RBC 3.67 L (3.80-5.40) m/uL Hgb 11.1 L (11.4-16.0) gm/dL Hct (34.0-46.0) % APTT (22.0-30.0) sec BUN 36 H (7-17) mg/dL Creatinine 1.35 H (0.52-1.04) mg/dL Glucose 233 H (74-99) mg/dL POC Glucose (mg/dL) 216 H (75-99) mg/dL Total Protein (6.3-8.2) g/dL 06/08/17 Range/Units 11:53 RBC (3.80-5.40) m/uL Hgb (11.4-16.0) gm/dL Hct (34.0-46.0) % APTT (22.0-30.0) sec BUN (7-17) mg/dL Creatinine (0.52-1.04) mg/dL Glucose (74-99) mg/dL POC Glucose (mg/dL) 425 H (75-99) mg/dL Total Protein (6.3-8.2) g/dL Thrombosis Risk Factor Assmnt - Choose All That Apply Any of the Below Risk Factors Present?: Yes Each Factor Represents 1 point: Abnormal pulmonary function (COPD), Age 41-60 years Other Risk Factors: Yes Each Risk Factor Represents 3 Points: History of DVT/PE Other congenital or acquired thrombophilia - If yes, enter type in comment: No Thrombosis Risk Factor Assessment Total Risk Factor Score: 5 Thrombosis Risk Factor Assessment Level: High Risk Assessment and Plan Assessment: 1.Chest pain: IN ruled out. Cardiac enzymes negative 3 sets. EKG normal sinus rhythm. Patient seen evaluated by cardiology. Commending current cardiac meds with aspirin and Lipitor. In follow-up outpatient. No further cardiac testing required. 2. Left facial numbness and headache. Computed tomography scan of the brain will be ordered to rule out stroke. Echo from March 2017 shows an EF of 65- 70%. Carotid ultrasound showed complete occlusion of right internal carotid artery and 50-69% on the left internal carotid artery. Which is noted on carotid ultrasound in March 2017. Patient was evaluated by vascular surgery at that time and no surgical intervention required. Patient is to continue with follow-up outpatient with vascular surgery 3. History of coronary artery disease with previous cardiac stents 4. Diabetes mellitus insulin-dependent and uncontrolled. Patient had an elevated blood sugars in the 200s to 400. Increase Levemir to 22 units at bedtime. Continue NovoLog sliding scale 5. History of CVA with left-sided paralysis 6. Essential hypertension 7. Acute kidney injury with chronic kidney disease, stage III. creatinine has gone up to 1.35. Start IV fluids DVT prophylaxis subcu heparin Time with Patient: Greater than 30 (Greater than 50% of the total time spent in counseling and coordination of care.I performed an examination of the patient and discussed their management with the physician Radiology Receptionist. I have reviewed the Physician Radiology Receptionist's notes and agree with the documented findings and plan of care)
[2017-06-08 13:38] LABS: Glucose,Whole Blood 568 mg/dL (75-99)
[2017-06-08 13:38] LABS: Glucose,Whole Blood 597 mg/dL (75-99)
--- NOTE | 2017-06-08 13:55 | CT ---
EXAMINATION TYPE: CT brain wo con DATE OF EXAM: 06/08/2017 COMPARISON: Prior head CT 04/26/2017 HISTORY: Left sided facial numbness and pain CT DLP: 1121 mGycm Automated exposure control for dose reduction was used. FINDINGS: Cerebral vascular calcifications, extensive remote cerebrovascular accident change again noted, there is ex vacuo phenomenon of the right lateral ventricle. There is no hemorrhage or hydrocephalus. IMPRESSION: REMOTE CEREBRAL VASCULAR ACCIDENT. NO ACUTE ABNORMALITIES EVIDENT.
[2017-06-08] MEDS ORDERED: INSULIN REGULAR 100 UNIT in SODIUM CHLORIDE 0.9% 100 ML IV SCH (14:30)
[2017-06-08 14:39] LABS: Glucose,Whole Blood 541 mg/dL (75-99)
[2017-06-08] MEDS: SODIUM CHLORIDE 0.9% 1,000 ML IV SCH (15:00)
[2017-06-08 17:06] LABS: Glucose,Whole Blood 386 mg/dL (75-99)
[2017-06-08 19:01] LABS: Glucose,Whole Blood 198 mg/dL (75-99)
[2017-06-08] MEDS: ATORVASTATIN 20 MG TAB PO SCH (20:06)
[2017-06-08] MEDS: DOCUSATE 100 MG CAP PO SCH (20:06)
[2017-06-08] MEDS: HEPARIN SODIUM,PORCINE 5,000 UNIT/ML 1 ML VIAL SQ SCH (20:10)
[2017-06-08] MEDS ORDERED: INSULIN DETEMIR 100 UNIT/ML 10 ML VIAL SQ SCH (21:00)
[2017-06-08 21:16] LABS: Glucose,Whole Blood 74 mg/dL (75-99)
[2017-06-08 23:37] LABS: Glucose,Whole Blood 78 mg/dL (75-99)
[2017-06-08 23:37] LABS: Glucose,Whole Blood 42 mg/dL (75-99)
[2017-06-09] MEDS: NITROGLYCERIN OINT 1 INCH/GM PACKET TOPICAL SCH ×4 (00:12→17:44)
[2017-06-09 04:01] LABS: Glucose,Whole Blood 189 mg/dL (75-99)
[2017-06-09] MEDS ORDERED: INSULIN DETEMIR 100 UNIT/ML 10 ML VIAL SQ STA (04:21)
[2017-06-09 07:07] LABS: Glucose,Whole Blood 342 mg/dL (75-99)
[2017-06-09 07:11] LABS: Basophils % (A) 1 %; Eosinophils # (A) 0.1 k/uL (0-0.7); Eosinophils % (A) 2 %; HCT 31.9 % (34.0-46.0); HGB 10.2 gm/dL (11.4-16.0); Lymphocytes # (A) 1.5 k/uL (1.0-4.8); Lymphocytes % (A) 34 %; MCH 30.5 pg (25.0-35.0); MCHC 31.9 g/dL (31.0-37.0); MCV 95.6 fL (80.0-100.0); Mean Platelet Volume 8.6; Monocytes # (A) 0.3 k/uL (0-1.0); Monocytes % (A) 6 %; Neutrophils # (A) 2.5 k/uL (1.3-7.7); Neutrophils % (A) 56 %; Platelet Count 180 k/uL (150-450); RBC 3.33 m/uL (3.80-5.40); RDW 13.4 % (11.5-15.5); WBC 4.4 k/uL (3.8-10.6)
[2017-06-09 07:19] LABS: ALT 40 U/L (9-52); AST 18 U/L (14-36); Albumin 3.4 g/dL (3.5-5.0); Alkaline Phosphatase 54 U/L (38-126); Anion Gap 9 mmol/L; Blood Urea Nitrogen 27 mg/dL (7-17); Calcium 9.2 mg/dL (8.4-10.2); Carbon Dioxide 28 mmol/L (22-30); Chloride 105 mmol/L (98-107); Glucose 327 mg/dL (74-99); Potassium 4.6 mmol/L (3.5-5.1); Sodium 142 mmol/L (137-145); Total Bilirubin 0.3 mg/dL (0.2-1.3)
[2017-06-09] MEDS: INSULIN ASPART 100 UNIT/ML 1 ML 10 ML VIAL SQ SCH ×4 (07:40→20:36)
[2017-06-09] MEDS: SYMBICORT 160-4.5 MCG INHALER INHALATION SCH ×2 (07:53→20:32)
[2017-06-09 09:11] VITALS: BMI 23.2
[2017-06-09 10:16] LABS: Glucose,Whole Blood 205 mg/dL (75-99)
[2017-06-09] MEDS: METOCLOPRAMIDE 5 MG TAB PO SCH ×3 (11:35→17:45)
[2017-06-09] MEDS: ALPRAZolam 0.5 MG TAB PO SCH ×3 (11:35→20:38)
[2017-06-09] MEDS: ASPIRIN 325 MG TAB PO SCH (11:35)
[2017-06-09] MEDS: DOCUSATE 100 MG CAP PO SCH (11:36)
[2017-06-09] MEDS: HEPARIN SODIUM,PORCINE 5,000 UNIT/ML 1 ML VIAL SQ SCH ×2 (11:36→20:36)
[2017-06-09] MEDS: B COMPLEX-VIT C-VIT E-ZINC 1 EACH TAB PO SCH (11:36)
[2017-06-09 12:10] LABS: Glucose,Whole Blood 111 mg/dL (75-99)
--- NOTE | 2017-06-09 13:20 | P.PN ---
Subjective Progress Note Date: 06/09/17 This is a 56-year-old female with a known past medical history of CVA with left- sided paresis, myocardial infarction, coronary artery disease with previous cardiac stents and uncontrolled diabetes mellitus. Also has a history of chronic renal failure, hypertension and hyperlipidemia. Patient presents to emergency room with complaints of chest pain in the center of her chest. She reports it felt like a ton of bricks sitting on her chest. She reports some shortness of breath. Also had an episode of vomiting and diarrhea. Also complaining of a headache on the left side of her head with some left-sided facial numbness. Troponins were negative 3 sets. EKG had shown normal sinus rhythm. Chest x-ray was negative. Influenza swab negative. Cardiology consulted. Last heart catheterization was in 2007 showing mild intimal disease of the LAD no evidence of stent restenosis in the RCA. Patient seen by cardiology. Recommend current cardiac medications. No further cardiac workup required. CT was ruled out. However with patient's history of stroke and reporting some left facial numbness and headache. Computed tomography scan of the brain will be ordered to rule out stroke. On 06/09/2017 patient is somnolent she is arousable but go back to sleep easily , glucose was elevated yesterday requiring insulin drip was discontinued today and patient is back on her Levemir 20 units daily and NovoLog sliding scale before meals. Awaiting neurology evaluation to rule out continue cerebrovascular accident, continue was current management. paste up worker consult will be requested Objective - Vital Signs Vital signs: Vital Signs Temp 97.8 F 06/09/17 08:00 Pulse 78 06/09/17 08:00 Resp 16 06/09/17 08:00 BP 141/78 06/09/17 08:00 Pulse Ox 97 06/09/17 08:00 Intake & Output 06/08/17 06/09/17 06/09/17 18:59 06:59 18:59 Intake Total 626.65 27.436 Balance 626.65 27.436 Weight 55.792 kg Intake: Intake, IV Titration 26.65 27.436 Amount Insulin Regular 100 unit 26.65 27.436 In Sodium Chloride 0.9% 100 ml @ Titrate IV .Q0M HUMAIRA Rx#:[id number] Oral 600 Other: Voiding Method Bedside Commode Bedside Commode Bedside Commode Diaper Incontinent # Voids 1 1 - Exam Head normocephalic and atraumatic Neck supple no JVD no goiter and no adenopathy Lungs clear to auscultation bilaterally no wheezing or crackles Heart regular rate and rhythm S1-S2, no rub or gallop Abdomen is soft nontender nondistended positive bowel sounds no hepatosplenomegaly Extremities no edema Neuro alert and orientated to 3. Left sided paralysis affecting the arm and leg which is chronic - Labs CBC & Chem 7: 06/09/17 06:27 06/09/17 06:27 Labs: Abnormal Lab Results - Last 24 Hours (Table) 06/07/17 06/08/17 06/08/17 Range/Units 20:38 13:29 13:32 RBC (3.80-5.40) m/uL Hgb (11.4-16.0) gm/dL Hct (34.0-46.0) % BUN (7-17) mg/dL Creatinine (0.52-1.04) mg/dL Glucose (74-99) mg/dL POC Glucose (mg/dL) 597 H 568 H (75-99) mg/dL Hemoglobin A1c 9.4 H (4.0-6.0) % Total Protein (6.3-8.2) g/dL Albumin (3.5-5.0) g/dL 06/08/17 06/08/17 06/08/17 Range/Units 14:37 17:02 18:58 RBC (3.80-5.40) m/uL Hgb (11.4-16.0) gm/dL Hct (34.0-46.0) % BUN (7-17) mg/dL Creatinine (0.52-1.04) mg/dL Glucose (74-99) mg/dL POC Glucose (mg/dL) 541 H 386 H 198 H (75-99) mg/dL Hemoglobin A1c (4.0-6.0) % Total Protein (6.3-8.2) g/dL Albumin (3.5-5.0) g/dL 06/08/17 06/08/17 06/09/17 Range/Units 21:13 23:15 03:59 RBC (3.80-5.40) m/uL Hgb (11.4-16.0) gm/dL Hct (34.0-46.0) % BUN (7-17) mg/dL Creatinine (0.52-1.04) mg/dL Glucose (74-99) mg/dL POC Glucose (mg/dL) 74 L 42 L 189 H (75-99) mg/dL Hemoglobin A1c (4.0-6.0) % Total Protein (6.3-8.2) g/dL Albumin (3.5-5.0) g/dL 06/09/17 06/09/17 06/09/17 Range/Units 06:27 06:27 07:01 RBC 3.33 L (3.80-5.40) m/uL Hgb 10.2 L (11.4-16.0) gm/dL Hct 31.9 L (34.0-46.0) % BUN 27 H (7-17) mg/dL Creatinine 1.09 H (0.52-1.04) mg/dL Glucose 327 H (74-99) mg/dL POC Glucose (mg/dL) 342 H (75-99) mg/dL Hemoglobin A1c (4.0-6.0) % Total Protein 6.0 L (6.3-8.2) g/dL Albumin 3.4 L (3.5-5.0) g/dL 06/09/17 06/09/17 Range/Units 10:12 12:03 RBC (3.80-5.40) m/uL Hgb (11.4-16.0) gm/dL Hct (34.0-46.0) % BUN (7-17) mg/dL Creatinine (0.52-1.04) mg/dL Glucose (74-99) mg/dL POC Glucose (mg/dL) 205 H 111 H (75-99) mg/dL Hemoglobin A1c (4.0-6.0) % Total Protein (6.3-8.2) g/dL Albumin (3.5-5.0) g/dL
[2017-06-09 16:27] VITALS: RESP 18
[2017-06-09 16:57] LABS: Glucose,Whole Blood 66 mg/dL (75-99)
[2017-06-09 17:12] LABS: Glucose,Whole Blood 63 mg/dL (75-99)
[2017-06-09 17:15] LABS: Glucose,Whole Blood 74 mg/dL (75-99)
[2017-06-09] MEDS: FERROUS SULFATE 325 MG TAB PO SCH (17:46)
[2017-06-09] MEDS: VALPROIC ACID ORAL SOLN 250 MG/5 ML CUP PO SCH (17:46)
[2017-06-09] MEDS: DULoxetine HCL 60 MG CAPSULE.DR PO SCH (17:46)
[2017-06-09] MEDS: FAMOTIDINE 20 MG TAB PO SCH (17:46)
[2017-06-09] MEDS: SODIUM CHLORIDE 0.9% 1,000 ML IV SCH (17:48)
[2017-06-09 20:19] LABS: Glucose,Whole Blood 414 mg/dL (75-99)
[2017-06-09] MEDS: ATORVASTATIN 20 MG TAB PO SCH (20:37)
[2017-06-09 21:30] LABS: Glucose,Whole Blood 388 mg/dL (75-99)
[2017-06-09] MEDS ORDERED: INSULIN DETEMIR 100 UNIT/ML 10 ML VIAL SQ ONE (22:00)
[2017-06-10] MEDS: NITROGLYCERIN OINT 1 INCH/GM PACKET TOPICAL SCH ×3 (00:12→12:54)
[2017-06-10] MEDS: DOCUSATE 100 MG CAP PO SCH ×2 (00:12→08:39)
[2017-06-10 07:27] LABS: Glucose,Whole Blood 144 mg/dL (75-99)
[2017-06-10 07:29] LABS: Basophils % (A) 1 %; Eosinophils # (A) 0.1 k/uL (0-0.7); Eosinophils % (A) 2 %; HCT 33.8 % (34.0-46.0); HGB 10.6 gm/dL (11.4-16.0); Lymphocytes # (A) 1.5 k/uL (1.0-4.8); Lymphocytes % (A) 42 %; MCH 29.5 pg (25.0-35.0); MCHC 31.4 g/dL (31.0-37.0); MCV 93.8 fL (80.0-100.0); Mean Platelet Volume 8.5; Monocytes # (A) 0.2 k/uL (0-1.0); Monocytes % (A) 6 %; Neutrophils # (A) 1.8 k/uL (1.3-7.7); Neutrophils % (A) 49 %; Platelet Count 188 k/uL (150-450); RBC 3.61 m/uL (3.80-5.40); RDW 13.6 % (11.5-15.5); WBC 3.7 k/uL (3.8-10.6)
[2017-06-10 07:53] LABS: ALT 36 U/L (9-52); AST 21 U/L (14-36); Albumin 3.5 g/dL (3.5-5.0); Alkaline Phosphatase 49 U/L (38-126); Anion Gap 9 mmol/L; Blood Urea Nitrogen 25 mg/dL (7-17); Calcium 9.7 mg/dL (8.4-10.2); Carbon Dioxide 27 mmol/L (22-30); Chloride 107 mmol/L (98-107); Glucose 151 mg/dL (74-99); Potassium 4.9 mmol/L (3.5-5.1); Sodium 143 mmol/L (137-145); Total Bilirubin 0.2 mg/dL (0.2-1.3); Total Protein 6.2 g/dL (6.3-8.2)
[2017-06-10 08:35] VITALS: BP 133/63; TEMP 98.1
[2017-06-10] MEDS: METOCLOPRAMIDE 5 MG TAB PO SCH ×2 (08:39→12:56)
[2017-06-10] MEDS: DULoxetine HCL 60 MG CAPSULE.DR PO SCH (08:39)
[2017-06-10] MEDS: B COMPLEX-VIT C-VIT E-ZINC 1 EACH TAB PO SCH (08:39)
[2017-06-10] MEDS: VALPROIC ACID ORAL SOLN 250 MG/5 ML CUP PO SCH (08:39)
[2017-06-10] MEDS: FAMOTIDINE 20 MG TAB PO SCH (08:40)
[2017-06-10] MEDS: ASPIRIN 325 MG TAB PO SCH (08:41)
[2017-06-10] MEDS: ALPRAZolam 0.5 MG TAB PO SCH (08:43)
[2017-06-10] MEDS: HEPARIN SODIUM,PORCINE 5,000 UNIT/ML 1 ML VIAL SQ SCH (08:45)
[2017-06-10] MEDS: ALBUTEROL NEBULIZED 2.5 MG/3 ML INHALATION PRN ×2 (09:10→12:01)
[2017-06-10] MEDS: SYMBICORT 160-4.5 MCG INHALER INHALATION SCH (09:10)
[2017-06-10 12:12] VITALS: PULSE 84
[2017-06-10 12:22] LABS: Glucose,Whole Blood 515 mg/dL (75-99)
[2017-06-10 12:22] LABS: Glucose,Whole Blood 494 mg/dL (75-99)
[2017-06-10] MEDS ORDERED: INSULIN ASPART 100 UNIT/ML 1 ML 10 ML VIAL SQ SCH ×2 (12:30→17:30)
[2017-06-10] MEDS: INSULIN ASPART 100 UNIT/ML 1 ML 10 ML VIAL SQ SCH (12:53)
[2017-06-10] MEDS: FERROUS SULFATE 325 MG TAB PO SCH (12:54)
[2017-06-10 13:42] LABS: Glucose,Whole Blood 525 mg/dL (75-99)
--- NOTE | 2017-06-10 13:44 | P.DS ---
Providers Date of admission: 06/07/17 16:01 Expected date of discharge: 06/10/17 Attending physician: Sherlyn Chen Consults: 06/07/17 16:01 Consult Physician Urgent Consulting Provider: Luis Carlos Cisneros Consult Reason/Comments: cp Do you want consulting provider notified?: Yes Primary care physician: Sherlyn Chen [facility] Course: Discharge diagnosis 1.Chest pain: [place] ruled out. Likely musculoskeletal pain. She does have tenderness with palpation of the chest wall. Cardiac enzymes negative 3 sets. EKG normal sinus rhythm. Patient seen evaluated by cardiology. Commending current cardiac meds with aspirin and Lipitor. In follow-up outpatient. No further cardiac testing required. 2. Left facial numbness and headache. These are chronic symptoms for patient since her old stroke. She reports really no new change. Computed tomography scan of the brain shows a remote cerebral vascular accident. No acute abnormalities evident. Echo from March 2017 shows an EF of 65-70%. Carotid ultrasound showed complete occlusion of right internal carotid artery and 50-69 % on the left internal carotid artery. Which is noted on carotid ultrasound in March 2017. Patient was evaluated by vascular surgery at that time and no surgical intervention required. Patient is to continue with follow-up outpatient with vascular surgery 3. History of coronary artery disease with previous cardiac stents 4. Diabetes mellitus insulin-dependent and uncontrolled. Patient did require an insulin drip. Blood sugars are now stable and restarted on her home dose of Levemir 20 units and NovoLog sliding scale 5. History of CVA with left-sided paralysis 6. Essential hypertension 7. Acute kidney injury with chronic kidney disease, stage III. creatinine has gone up to 1.35. Improved with IV fluids. Creatinine is now down to 1.07 Hospital course This is a 56-year-old female with a known past medical history of CVA with left- sided paresis, myocardial infarction, coronary artery disease with previous cardiac stents and uncontrolled diabetes mellitus. Also has a history of chronic renal failure, hypertension and hyperlipidemia. Patient presents to emergency room with complaints of chest pain in the center of her chest. She reports it felt like a ton of bricks sitting on her chest. She reports some shortness of breath. Also had an episode of vomiting and diarrhea. Also complaining of a headache on the left side of her head with some left-sided facial numbness. Troponins were negative 3 sets. EKG had shown normal sinus rhythm. Chest x-ray was negative. Influenza swab negative. Cardiology consulted. Last heart catheterization was in 2007 showing mild intimal disease of the LAD no evidence of stent restenosis in the RCA. Patient seen by cardiology. Recommend current cardiac medications. No further cardiac workup required. MO was ruled out. However with patient's history of stroke and reporting some left facial numbness and headache. Computed tomography scan of the brain will be ordered to rule out stroke Patient symptoms have improved. She reports some chest discomfort which is musculoskeletal. She does have tenderness with palpation of the chest wall. MO was ruled out. Troponins were negative 3 sets. She will follow up with cardiology in outpatient setting. Patient also had reported some left-sided facial numbness and headache. These are chronic symptoms for the patient. There was a computed tomography scan of the brain which showed no acute changes. An echo and carotid as stated above. Initially a consult was placed for neurology however, patient has had no new symptoms. Therefore this is not a new stroke. These are her old symptoms. She will follow-up with Dr. Chen in the office. She also had some dehydration which did improve with IV fluids. Patient is having blood sugars in the 400s at time of discharge. She will get a total of 13 units of NovoLog prior to discharge. Patient has a known history of fluctuating blood sugars. At home that she will be on her strict regimen of Levemir 20 and NovoLog sliding scale. She is to continue with her NovoLog sliding scale. And to add 5 units on top of her sliding scale if blood sugar is greater than 400. In the hospital her insulin has been adjusted and held multiple times. And patient is a very brittle diabetic and sensitive to these adjustments. Initially held for possible cardiac testing. And since then it has been fluctuating. At this time when she her home regimen and strict diet blood sugar should show improvement. Patient's caregiver has been informed and understands. Patient and caregiver are very eager for discharge. Patient is already getting dressed to go home. Therefore we will discharge patient will have her monitor her blood sugars closely. And have her follow up with Dr. Chen on Wednesday next week I performed an examination of the patient and discussed their management with the physician Inside Sales Supervisor. I have reviewed the Physician Inside Sales Supervisor's notes and agree with the documented findings and plan of care Patient Condition at Discharge: Stable Plan - Discharge Summary Discharge Rx Participant: No New Discharge Prescriptions: Continue Nitroglycerin Sl Tabs [Nitrostat] 0.4 mg SUBLINGUAL Q5M PRN PRN Reason: Chest Pain Albuterol Inhaler [Ventolin Hfa Inhaler] 2 puff INHALATION RT-Q4H PRN PRN Reason: Shortness Of Breath Atorvastatin [Lipitor] 20 mg PO HS Famotidine [Pepcid] 20 mg PO BID Aspirin EC [Ecotrin Low Dose] 81 mg PO DAILY Valproic Acid [Depakene] 250 mg PO DAILY Metoclopramide [Reglan] 5 mg PO AC-TID Ergocalciferol [Vitamin D2 (DRISDOL)] 50,000 unit PO Q7D Budesonide-Formot 160-4.5 Mcg [Symbicort 160-4.5 Mcg Inhaler] 2 puff INHALATION RT-BID HYDROcodone/APAP 10-325MG [[place] 10-325] 1 tab PO Q6H PRN PRN Reason: Pain Insulin Lispro [humaLOG] 4 units SQ AC-TID Ferrous Sulfate [Iron (65 MG Elemental)] 325 mg PO DAILY DULoxetine HCL [Cymbalta] 60 mg PO DAILY ALPRAZolam [Xanax] 1 mg PO TID SILVER sulfADIAZINE Cream [Silvadene 1% Cream] 1 applic TOPICAL DAILY Insulin Glargine [Lantus] 20 unit SQ HS Glucagon Emergency Kit 1 mg SQ ONCE PRN PRN Reason: Blood Sugar - Low Vitamin B Complex 1 cap PO DAILY EPINEPHrine (Auto Inject) [Epipen] 0.3 mg IM ONCE PRN PRN Reason: Anaphylaxis Docusate [Colace] 100 mg PO BID Ondansetron HCl [Zofran] 4 mg PO DAILY PRN PRN Reason: Nausea Discharge Medication List Nitroglycerin Sl Tabs [Nitrostat] 0.4 mg SUBLINGUAL Q5M PRN 06/14/14 [History] Albuterol Inhaler [Ventolin Hfa Inhaler] 2 puff INHALATION RT-Q4H PRN 07/19/15 [ History] Aspirin EC [Ecotrin Low Dose] 81 mg PO DAILY 07/19/15 [History] Atorvastatin [Lipitor] 20 mg PO HS 07/19/15 [History] Famotidine [Pepcid] 20 mg PO BID 07/19/15 [History] Metoclopramide [Reglan] 5 mg PO AC-TID 07/19/15 [History] Valproic Acid [Depakene] 250 mg PO DAILY 07/19/15 [History] Budesonide-Formot 160-4.5 Mcg [Symbicort 160-4.5 Mcg Inhaler] 2 puff INHALATION RT-BID 03/05/16 [History] Ergocalciferol [Vitamin D2 (DRISDOL)] 50,000 unit PO Q7D 03/05/16 [History] HYDROcodone/APAP 10-325MG [[place] 10-325] 1 tab PO Q6H PRN 10/03/16 [History] DULoxetine HCL [Cymbalta] 60 mg PO DAILY 02/16/17 [History] Ferrous Sulfate [Iron (65 MG Elemental)] 325 mg PO DAILY 02/16/17 [History] Insulin Lispro [humaLOG] 4 units SQ AC-TID 02/16/17 [History] ALPRAZolam [Xanax] 1 mg PO TID 02/19/17 [History] Docusate [Colace] 100 mg PO BID 06/07/17 [History] EPINEPHrine (Auto Inject) [Epipen] 0.3 mg IM ONCE PRN 06/07/17 [History] Glucagon Emergency Kit 1 mg SQ ONCE PRN 06/07/17 [History] Insulin Glargine [Lantus] 20 unit SQ HS 06/07/17 [History] Ondansetron HCl [Zofran] 4 mg PO DAILY PRN 06/07/17 [History] SILVER sulfADIAZINE Cream [Silvadene 1% Cream] 1 applic TOPICAL DAILY 06/07/17 [ History] Vitamin B Complex 1 cap PO DAILY 06/07/17 [History] Follow up Appointment(s)/Referral(s): Aldo Erickson MD [STAFF PHYSICIAN] - 4 Weeks Sherlyn Chen MD [Primary Care Provider] - 1 Week Activity/Diet/Wound Care/Special Instructions: Diet: diabetic, cardiac Activity: as tolerated if Blood sugar is greater than 400 then give an additional 5 units on top of her regular sliding scale check Blood sugar before each meal TID and record. Bring results to Dr. Chen' s office Discharge Disposition: HOME SELF-CARE
== END 2017-06-10 14:20 | disposition home or self-care (01) ==
LOC: EC 14:06 → 3OBS 16:01
PROVIDERS: ADMIT Internal Medicine; ATTEND Internal Medicine
DX: R07.89 Other chest pain (principal); E11.65 Type 2 diabetes mellitus with hyperglycemia; I25.10 Atherosclerotic heart disease of native coronary artery without angina pectoris; E11.40 Type 2 diabetes mellitus with diabetic neuropathy, unspecified; I69.354 Hemiplegia and hemiparesis following cerebral infarction affecting left non-dominant side; N18.3 Chronic kidney disease, stage 3 (moderate); E11.22 Type 2 diabetes mellitus with diabetic chronic kidney disease; N17.9 Acute kidney failure, unspecified; I12.9 Hypertensive chronic kidney disease with stage 1 through stage 4 chronic kidney disease, or unspecified chronic kidney disease; I50.9 Heart failure, unspecified; I13.0 Hypertensive heart and chronic kidney disease with heart failure and stage 1 through stage 4 chronic kidney disease, or unspecified chronic kidney disease; E78.5 Hyperlipidemia, unspecified; E86.0 Dehydration; R51 Headache; J44.9 Chronic obstructive pulmonary disease, unspecified; K21.9 Gastro-esophageal reflux disease without esophagitis; I25.2 Old myocardial infarction; E07.9 Disorder of thyroid, unspecified; F41.9 Anxiety disorder, unspecified; F31.9 Bipolar disorder, unspecified; E11.319 Type 2 diabetes mellitus with unspecified diabetic retinopathy without macular edema; Z95.5 Presence of coronary angioplasty implant and graft; Z79.4 Long term (current) use of insulin; Z79.899 Other long term (current) drug therapy; Z79.82 Long term (current) use of aspirin; Z79.51 Long term (current) use of inhaled steroids; Z88.5 Allergy status to narcotic agent; Z88.0 Allergy status to penicillin; Z88.8 Allergy status to other drugs, medicaments and biological substances; Z88.3 Allergy status to other anti-infective agents; Z91.030 Bee allergy status; Z82.5 Family history of asthma and other chronic lower respiratory diseases; Z86.718 Personal history of other venous thrombosis and embolism; Z86.14 Personal history of Methicillin resistant Staphylococcus aureus infection; Z90.710 Acquired absence of both cervix and uterus; Z89.421 Acquired absence of other right toe(s); Z87.891 Personal history of nicotine dependence; Z99.3 Dependence on wheelchair; Z82.49 Family history of ischemic heart disease and other diseases of the circulatory system; Z83.3 Family history of diabetes mellitus; Z86.711 Personal history of pulmonary embolism; R19.7 Diarrhea, unspecified; R11.10 Vomiting, unspecified; R20.0 Anesthesia of skin
CPT/HCPCS: 96365; 96366; 96372 ×2; 99285; 36415; 94640 ×5; 94760; 93005; 80164; 80061; 80053 ×4; 82550 ×2; 82553 ×2; 83735; 84484 ×2; 85025 ×4; 85610; 85730; 87502; 83036; 71046; 70450; G0378 ×4; J1644 ×2

== ENCOUNTER 2017-09-02 21:30 | Emergency (ER) | payer OTHER ==
[2017-09-02] MEDS ORDERED: SODIUM CHLORIDE 0.9% 1,000 ML IV ONE (22:05)
--- NOTE | 2017-09-02 22:57 | XR ---
EXAMINATION TYPE: XR foot complete RT DATE OF EXAM: 09/02/2017 COMPARISON: NONE HISTORY: Pain TECHNIQUE: 3 views FINDINGS: I see no fracture nor dislocation. There is amputation deformity of the second toe and the little toe. There is a lucency over the plantar aspect of the calcaneus that could be an ulcer crater . The metatarsals are intact. I see no focal bone destruction. IMPRESSION: No evidence of osteomyelitis. Possible fissure or ulcer on the plantar aspect of the calc aneus.
[2017-09-02 23:35] LABS: Glucose,Whole Blood 200 mg/dL (75-99)
[2017-09-02 23:45] LABS: Basophils % (A) 0 %; Eosinophils # (A) 0.1 k/uL (0-0.7); Eosinophils % (A) 1 %; HCT 32.4 % (34.0-46.0); HGB 10.6 gm/dL (11.4-16.0); Lymphocytes # (A) 1.5 k/uL (1.0-4.8); Lymphocytes % (A) 15 %; MCH 30.4 pg (25.0-35.0); MCHC 32.7 g/dL (31.0-37.0); MCV 93.2 fL (80.0-100.0); Mean Platelet Volume 8.2; Monocytes # (A) 0.5 k/uL (0-1.0); Monocytes % (A) 5 %; Neutrophils # (A) 7.6 k/uL (1.3-7.7); Neutrophils % (A) 77 %; Platelet Count 195 k/uL (150-450); RBC 3.47 m/uL (3.80-5.40); RDW 12.7 % (11.5-15.5); WBC 9.9 k/uL (3.8-10.6)
[2017-09-02 23:55] LABS: Albumin 3.9 g/dL (3.5-5.0); Calcium 9.8 mg/dL (8.4-10.2); Potassium 5.3 mmol/L (3.5-5.1); Total Bilirubin 0.3 mg/dL (0.2-1.3); Total Protein 7.1 g/dL (6.3-8.2)
--- NOTE | 2017-09-03 00:26 | ED ---
Skin/Abscess/FB HPI - General Chief complaint: Skin/Abscess/Foreign Body Stated complaint: foot infection Time Seen by Provider: 09/02/17 21:40 Source: patient, RN notes reviewed, old records reviewed Mode of arrival: wheelchair Limitations: no limitations - History of Present Illness Initial comments: This patient is a 57-year-old female caregiver of an and question infection on her right heel. She reports that she and she started out with a crack from dry skin on her heel. She states that they put some cream and tape on it. They now noticed a blister form. There for that she's had some smite are surrounding erythema from the blister. No fevers or chills. She has a diabetic, sugars have been elevated to 300. She has had a history of osteomyelitis in her 2nd and 5th toe .Patient has no fever, chills, chest pain, shortness of breath. She was given her nightly pain medication prior to arrival. She does not relate most of the history, majority from her caregiver. - Related Data Home Medications Medication Instructions Recorded Confirmed Albuterol Inhaler [Ventolin Hfa 2 puff INHALATION RT-Q4H PRN 07/19/15 09/02/17 Inhaler] Aspirin EC [Ecotrin Low Dose] 81 mg PO DAILY 07/19/15 09/02/17 Atorvastatin [Lipitor] 20 mg PO HS 07/19/15 09/02/17 Famotidine [Pepcid] 20 mg PO BID 07/19/15 09/02/17 Valproic Acid [Depakene] 250 mg PO DAILY 07/19/15 09/02/17 Budesonide-Formot 160-4.5 Mcg 2 puff INHALATION RT-BID 03/05/16 09/02/17 [Symbicort 160-4.5 Mcg Inhaler] Ergocalciferol [Vitamin D2 50,000 unit PO Q7D 03/05/16 09/02/17 (DRISDOL)] HYDROcodone/APAP 10-325MG [[place] 1 tab PO Q6H PRN 10/03/16 09/02/17 10-325] DULoxetine HCL [Cymbalta] 60 mg PO DAILY 02/16/17 09/02/17 Ferrous Sulfate [Iron (65 MG 325 mg PO DAILY 02/16/17 09/02/17 Elemental)] Insulin Lispro [humaLOG] 4 units SQ AC-TID 02/16/17 09/02/17 ALPRAZolam [Xanax] 1 mg PO TID 02/19/17 09/02/17 Docusate [Colace] 100 mg PO BID 06/07/17 09/02/17 EPINEPHrine (Auto Inject) [Epipen] 0.3 mg IM ONCE PRN 06/07/17 09/02/17 Glucagon Emergency Kit 1 mg SQ ONCE PRN 06/07/17 09/02/17 Insulin Glargine [Lantus] 20 unit SQ HS 06/07/17 09/02/17 Vitamin B Complex 1 cap PO DAILY 06/07/17 09/02/17 Previous Rx's Medication Instructions Recorded Collagenase [Santyl] 1 applic TOPICAL BID #20 gm 09/03/17 Sulfamethox-Tmp 800-160Mg [Bactrim 2 tab PO Q12HR #40 tab 09/03/17 DS 800-160 mg] Allergies Allergy/AdvReac Type Severity Reaction Status Date / Time Barbiturates Allergy Rash/Hives Verified 09/02/17 22:19 cephalexin monohydrate Allergy Rash/Hives Verified 09/02/17 22:19 [From Keflex] morphine Allergy Rash/Hives Verified 09/02/17 22:19 Penicillins Allergy Rash/Hives Verified 09/02/17 22:19 phenobarbital Allergy Swelling Verified 09/02/17 22:19 venom-honey bee Allergy Swelling Verified 09/02/17 22:19 [bee venom (honey bee)] amlodipine besylate AdvReac Vomiting Verified 09/02/17 22:19 [From Norvasc] Review of Systems ROS Statement: Those systems with pertinent positive or pertinent negative responses have been documented in the HPI. ROS Other: All systems not noted in ROS Statement are negative. 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 [place] 2011. DVT RT AXILLA. RENAL FAILURE. LOW THYROID, PERIPHERAL NEUROPATHY HANDS & FEET. ANEMIA. HX OF DKA. USES W/ C. CONSTIPATION, ESOPHAGITIS. EPIGLOTITIS. HEADACHES SINCE CVA. RETINOPATHY SHIVA EYES. HX RT TOE INFECTION- GANGRENE, HAD AMP."i need eye sx-i have bleeding behind the eyes" Last Myocardial Infarction Date:: 2011 History of Any Multi-Drug Resistant Organisms: MRSA Date of last positivie culture/infection: 02/17/2013 MDRO Source:: Right Foot Past Surgical History: Appendectomy, Section, Cholecystectomy, Heart Catheterization With Stent, Hysterectomy, Orthopedic Surgery Additional Past Surgical History / Comment(s): Amputation Rt 2ND Toe. C-S X3. EGD. Bronchoscopy. RT Arm Port Placed FOR AB RX; Removed. 6 CARDIAC STENTS. left shoulder bone removed Past Anesthesia/Blood Transfusion Reactions: No Reported Reaction Additional Past Anesthesia/Blood Transfusion Reaction / Comment(s): HX OF BLOOD TRANSFUSION- NO REACTION Date of Last Stent Placement:: July 2012 Past Psychological History: Anxiety, Bipolar, Depression Smoking Status: Current every day smoker Past Alcohol Use History: None Reported Past Drug Use History: None Reported - Past Family History Father Family Medical History: Unable to Obtain, Coronary Artery Disease (CAD), Diabetes Mellitus Mother Family Medical History: COPD General Exam - General Exam Comments Initial Comments: 57 year old female, frail. Limitations: no limitations General appearance: alert, in no apparent distress Head exam: Present: atraumatic, normocephalic, normal inspection Eye exam: Present: normal appearance, PERRL, EOMI. Absent: scleral icterus, conjunctival injection, periorbital swelling Respiratory exam: Present: normal lung sounds bilaterally. Absent: respiratory distress, wheezes, rales, rhonchi, stridor Cardiovascular Exam: Present: regular rate, normal rhythm, normal heart sounds. Absent: systolic murmur, diastolic murmur, rubs, gallop, clicks Right Lower Leg exam: Present: normal inspection, full ROM Ankle exam: Present: normal inspection, full ROM Foot/Toe exam: Absent: normal inspection (missing toes 2,5 after amputation. She has a fissure over her heel with blister noted. Small surrounding erythema measuring 4 cm. ) Neurovascular tendon exam: Present: no vascular compromise Neurological exam: Present: alert, oriented X3, CN II-XII intact Psychiatric exam: Present: normal affect, normal mood Skin exam: Present: warm, dry, intact, normal color. 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 She reports that she and she started out with a crack from dry skin on her heel. She states that they put some cream and tape on it. They now noticed a blister form. There for that she's had some smite are surrounding erythema from the blister. No fevers or chills. She has a diabetic, sugars have been elevated to 300. PAtient had a wound culture obtaiend. She does have a fisure from cracked skin with bister and erythema measurin 3-4 cm around the area. No fever or chills. WBC is normal. Xray shows no osteomyelitis. Patient has seen previous wound care clinic. Patient will be started on santyl cream, advised on wound care. Will start on bactrim. Alll questions answered and return parameters discussed. - Lab Data Result diagrams: 09/02/17 23:30 09/02/17 23:30 Lab Results 09/02/17 09/02/17 09/02/17 Range/Units 23:21 23:30 23:30 WBC 9.9 (3.8-10.6) k/uL RBC 3.47 L (3.80-5.40) m/uL Hgb 10.6 L (11.4-16.0) gm/dL Hct 32.4 L (34.0-46.0) % MCV 93.2 (80.0-100.0) fL MCH 30.4 (25.0-35.0) pg MCHC 32.7 (31.0-37.0) g/dL RDW 12.7 (11.5-15.5) % Plt Count 195 (150-450) k/uL Neutrophils % 77 % Lymphocytes % 15 % Monocytes % 5 % Eosinophils % 1 % Basophils % 0 % Neutrophils # 7.6 (1.3-7.7) k/uL Lymphocytes # 1.5 (1.0-4.8) k/uL Monocytes # 0.5 (0-1.0) k/uL Eosinophils # 0.1 (0-0.7) k/uL Basophils # 0.0 (0-0.2) k/uL Sodium 142 (137-145) mmol/L Potassium 5.3 H (3.5-5.1) mmol/L Chloride 103 (98-107) mmol/L Carbon Dioxide 30 (22-30) mmol/L Anion Gap 9 mmol/L BUN 34 H (7-17) mg/dL Creatinine 0.90 (0.52-1.04) mg/dL Est GFR (CKD-EPI)AfAm 83 (>60 ml/min/1.73 sqM) Est GFR (CKD-EPI)NonAf 72 (>60 ml/min/1.73 sqM) Glucose 203 H (74-99) mg/dL POC Glucose (mg/dL) 200 H (75-99) mg/dL POC Glu Electrolog Operator ID Pawan Hayes Calcium 9.8 (8.4-10.2) mg/dL Total Bilirubin 0.3 (0.2-1.3) mg/dL AST 26 (14-36) U/L ALT 26 (9-52) U/L Alkaline Phosphatase 67 (38-126) U/L Total Protein 7.1 (6.3-8.2) g/dL Albumin 3.9 (3.5-5.0) g/dL - Radiology Data Radiology results: report reviewed No evidence of osteomyelitis. Possible fissure or ulcer on the plantar aspect of the calcaneus. Disposition Clinical Impression: Blister of right heel with infection Disposition: HOME SELF-CARE Condition: Good Instructions: Abscess Incision and Drainage (ED) Additional Instructions: Patient has a follow-up promptly with primary care provider in wound care clinic. Can take the antibiotics. Apply the wound care ointment. Return to emergency department if any alarming signs or symptoms occur. Prescriptions: Collagenase [Santyl] 1 applic TOPICAL BID #20 gm Sulfamethox-Tmp 800-160Mg [Bactrim DS 800-160 mg] 2 tab PO Q12HR #40 tab Referrals: Sherlyn Chen MD [Primary Care Provider] - 1-2 days Time of Disposition: 00:48
[2017-09-03] MEDS ORDERED: SULFAMETH-TMP DS STARTER PACK 2 TAB BTL PO STA (00:48)
[2017-09-03 01:08] VITALS: BP 140/70; PULSE 79; RESP 16; TEMP 97.4
== END 2017-09-03 01:07 | disposition home or self-care (01) ==
LOC: EC 21:30
DX: S90.821A Blister (nonthermal), right foot, initial encounter (principal); L08.9 Local infection of the skin and subcutaneous tissue, unspecified; J44.9 Chronic obstructive pulmonary disease, unspecified; K21.9 Gastro-esophageal reflux disease without esophagitis; E78.5 Hyperlipidemia, unspecified; I25.2 Old myocardial infarction; D64.9 Anemia, unspecified; E11.40 Type 2 diabetes mellitus with diabetic neuropathy, unspecified; F41.9 Anxiety disorder, unspecified; F32.9 Major depressive disorder, single episode, unspecified; F17.200 Nicotine dependence, unspecified, uncomplicated; Z86.14 Personal history of Methicillin resistant Staphylococcus aureus infection; Z86.73 Personal history of transient ischemic attack (TIA), and cerebral infarction without residual deficits; Z95.5 Presence of coronary angioplasty implant and graft; Z98.890 Other specified postprocedural states; Z79.82 Long term (current) use of aspirin; Z79.51 Long term (current) use of inhaled steroids; Z79.4 Long term (current) use of insulin; Z79.899 Other long term (current) drug therapy; Z88.8 Allergy status to other drugs, medicaments and biological substances; Z88.1 Allergy status to other antibiotic agents; Z88.5 Allergy status to narcotic agent; Z88.0 Allergy status to penicillin; Z91.030 Bee allergy status; Z89.421 Acquired absence of other right toe(s)
CPT/HCPCS: 36415; 80053; 85025; 87040; 87070; 87077; 87186; 87205; 96360; 99284

== ENCOUNTER 2017-09-16 16:21 | Inpatient (IN) | payer OTHER ==
[2017-09-16] MEDS ORDERED: NALOXONE 0.4 MG/ML 1 ML VIAL IV PRN (17:25)
[2017-09-16] MEDS ORDERED: ZIPRASIDONE 20 MG VIAL IM STA (17:25)
[2017-09-16] MEDS ORDERED: LORazepam 2 MG/ML INJ IV STA (17:25)
--- NOTE | 2017-09-16 17:25 | ED ---
Psych HPI - General Chief Complaint: Psychiatric Symptoms Stated Complaint: mental health Time Seen by Provider: 09/16/17 16:35 Source: patient, family, RN notes reviewed, Caregiver Mode of arrival: wheelchair - History of Present Illness Initial Comments: This is a 57-year-old female history of a CVA with left residual hemiparesis also a history depression who was brought in by family at the request of her doctor for admission today. Patient apparently is history depression and has been having violent behavior and outbursts she's been trying to injure herself. She also is been trying to open up a wound on her right lower extremity that was starting he'll finally. She apparently has been taking her medications as directed but they do not seem to be working. No reports of fevers chills nausea vomiting sweats head trauma headaches dysuria or other symptoms. MD Complaint: feels depressed, other - Related Data Home Medications Medication Instructions Recorded Confirmed Albuterol Inhaler [Ventolin Hfa 2 puff INHALATION RT-Q4H PRN 07/19/15 09/16/17 Inhaler] Aspirin EC [Ecotrin Low Dose] 81 mg PO DAILY 07/19/15 09/16/17 Famotidine [Pepcid] 20 mg PO BID 07/19/15 09/16/17 Valproic Acid [Depakene] 250 mg PO DAILY 07/19/15 09/16/17 Budesonide-Formot 160-4.5 Mcg 2 puff INHALATION RT-BID 03/05/16 09/16/17 [Symbicort 160-4.5 Mcg Inhaler] Ergocalciferol [Vitamin D2 50,000 unit PO Q7D 03/05/16 09/16/17 (DRISDOL)] HYDROcodone/APAP 10-325MG [[place] 1 tab PO Q6H PRN 10/03/16 09/16/17 10-325] DULoxetine HCL [Cymbalta] 60 mg PO DAILY 02/16/17 09/16/17 Ferrous Sulfate [Iron (65 MG 325 mg PO DAILY 02/16/17 09/16/17 Elemental)] Insulin Lispro [humaLOG] 0 units SQ AC-TID 02/16/17 09/16/17 ALPRAZolam [Xanax] 1 mg PO TID 02/19/17 09/16/17 Docusate [Colace] 100 mg PO BID 06/07/17 09/16/17 EPINEPHrine (Auto Inject) [Epipen] 0.3 mg IM ONCE PRN 06/07/17 09/16/17 Glucagon Emergency Kit 1 mg SQ ONCE PRN 06/07/17 09/16/17 Insulin Glargine [Lantus] 20 unit SQ HS 06/07/17 09/16/17 Vitamin B Complex 1 cap PO DAILY 06/07/17 09/16/17 ARIPiprazole [Abilify] 2 mg PO DAILY 09/06/17 09/16/17 Metoclopramide [Reglan] 5 mg PO TID 09/06/17 09/16/17 Nitroglycerin Sl Tabs [Nitrostat] 0.4 mg SUBLINGUAL Q5M PRN 09/06/17 09/16/17 Ondansetron [Zofran] 4 mg PO DAILY PRN 09/06/17 09/16/17 SILVER sulfADIAZINE Cream 1 applic TOPICAL DAILY PRN 09/06/17 09/16/17 [Silvadene 1% Cream] Previous Rx's Medication Instructions Recorded Nicotine 14Mg/24Hr Patch [Habitrol] 1 patch TRANSDERM DAILY #30 patch 09/10/17 Sulfamethox-Tmp 800-160Mg [Bactrim 1 tab PO Q12HR #28 tab 09/10/17 DS 800-160 mg] Allergies Allergy/AdvReac Type Severity Reaction Status Date / Time Barbiturates Allergy Rash/Hives Verified 09/16/17 17:13 cephalexin monohydrate Allergy Rash/Hives Verified 09/16/17 17:13 [From Keflex] morphine Allergy Rash/Hives Verified 09/16/17 17:13 Penicillins Allergy Rash/Hives Verified 09/16/17 17:13 phenobarbital Allergy Swelling Verified 09/16/17 17:13 venom-honey bee Allergy Swelling Verified 09/16/17 17:13 [bee venom (honey bee)] amlodipine besylate AdvReac Vomiting Verified 09/16/17 17:13 [From Norvasc] Review of Systems ROS Statement: Those systems with pertinent positive or pertinent negative responses have been documented in the HPI. ROS Other: All systems not noted in ROS Statement are negative. 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 [place] 2011. DVT RT AXILLA. RENAL FAILURE. LOW THYROID, PERIPHERAL NEUROPATHY HANDS & FEET. ANEMIA. HX OF DKA. USES W/ C. CONSTIPATION, ESOPHAGITIS. EPIGLOTITIS. HEADACHES SINCE CVA. RETINOPATHY SHIVA EYES. HX RT TOE INFECTION- GANGRENE, HAD AMP."i need eye sx-i have bleeding behind the eyes" Last Myocardial Infarction Date:: 2011 History of Any Multi-Drug Resistant Organisms: MRSA Date of last positivie culture/infection: 09/06/17 MDRO Source:: Right Foot Past Surgical History: Appendectomy, Section, Cholecystectomy, Heart Catheterization With Stent, Hysterectomy, Orthopedic Surgery Additional Past Surgical History / Comment(s): Amputation Rt 2ND Toe. C-S X3. EGD. Bronchoscopy. RT Arm Port Placed FOR AB RX; Removed. 6 CARDIAC STENTS. left shoulder bone removed Past Anesthesia/Blood Transfusion Reactions: No Reported Reaction Additional Past Anesthesia/Blood Transfusion Reaction / Comment(s): HX OF BLOOD TRANSFUSION- NO REACTION Date of Last Stent Placement:: July 2012 Past Psychological History: Anxiety, Bipolar, Depression Smoking Status: Current every day smoker Past Alcohol Use History: None Reported Past Drug Use History: None Reported - Past Family History Father Family Medical History: Unable to Obtain, Coronary Artery Disease (CAD), Diabetes Mellitus Mother Family Medical History: COPD General Exam - General Exam Comments Initial Comments: Is a well-developed well-nourished awake alert oriented history female Limitations: no limitations General appearance: alert, in no apparent distress Head exam: Present: atraumatic, normocephalic, normal inspection Eye exam: Present: normal appearance, PERRL, EOMI. Absent: scleral icterus, conjunctival injection, periorbital swelling ENT exam: Present: normal exam, mucous membranes moist Neck exam: Present: normal inspection. Absent: tenderness, meningismus, lymphadenopathy Respiratory exam: Present: normal lung sounds bilaterally. Absent: respiratory distress, wheezes, rales, rhonchi, stridor Cardiovascular Exam: Present: regular rate, normal rhythm, normal heart sounds. Absent: systolic murmur, diastolic murmur, rubs, gallop, clicks GI/Abdominal exam: Present: soft, normal bowel sounds. Absent: distended, tenderness, guarding, rebound, rigid Extremities exam: Present: full ROM, normal capillary refill, other (Healing abrasion noted to the left upper arm. Additionally there is a wound to the right lower extremity. No proximal lymphangitis or lymphadenopathy.). Absent: tenderness, pedal edema, joint swelling, calf tenderness Back exam: Present: full ROM, other (Old scar to the upper back from self injury ). Absent: tenderness, CVA tenderness (R), CVA tenderness (L), muscle spasm, paraspinal tenderness, vertebral tenderness Neurological exam: Present: alert, oriented X3, CN II-XII intact Psychiatric exam: Present: depressed, flat affect Skin exam: Present: warm, dry, intact, normal color. Absent: rash Course Vital Signs 09/16/17 16:29 Temperature 97.5 F L Pulse Rate 93 Respiratory 20 Rate Blood Pressure 165/101 O2 Sat by Pulse 98 Oximetry Medical Decision Making - Medical Decision Making I did discuss findings with patient's family as well as with Dr. Chen the patient will be admitted with consultation by psychiatry as well as Dr. Mendez. Disposition Clinical Impression: Depression, Failure of outpatient treatment, Wound of right lower extremity, Adjustment disorder Disposition: ADMITTED IP TO THIS [facility] Condition: Stable Is patient prescribed a controlled substance at d/c from ED?: No Referrals: Sherlny Chen MD [Primary Care Provider] - 1-2 days
[2017-09-16] MEDS ORDERED: NITROGLYCERIN SL TABS 0.4 MG TAB SUBLINGUAL PRN (17:28)
[2017-09-16] MEDS ORDERED: ONDANSETRON 4 MG TAB PO PRN (17:28)
[2017-09-16 17:53] LABS: Basophils % (A) 0 %; Eosinophils # (A) 0.1 k/uL (0-0.7); Eosinophils % (A) 1 %; HCT 32.3 % (34.0-46.0); HGB 10.6 gm/dL (11.4-16.0); Lymphocytes # (A) 1.1 k/uL (1.0-4.8); Lymphocytes % (A) 23 %; MCH 30.5 pg (25.0-35.0); MCHC 32.9 g/dL (31.0-37.0); MCV 92.7 fL (80.0-100.0); Mean Platelet Volume 7.8; Monocytes # (A) 0.2 k/uL (0-1.0); Monocytes % (A) 5 %; Neutrophils # (A) 3.3 k/uL (1.3-7.7); Neutrophils % (A) 67 %; Platelet Count 263 k/uL (150-450); RBC 3.48 m/uL (3.80-5.40); RDW 12.7 % (11.5-15.5); WBC 4.9 k/uL (3.8-10.6)
[2017-09-16 17:58] LABS: Glucose,Whole Blood 332 mg/dL (75-99)
[2017-09-16 18:05] LABS: ALT 48 U/L (9-52); AST 21 U/L (14-36); Albumin 4.2 g/dL (3.5-5.0); Alkaline Phosphatase 107 U/L (38-126); Anion Gap 11 mmol/L; Blood Urea Nitrogen 35 mg/dL (7-17); Calcium 9.9 mg/dL (8.4-10.2); Carbon Dioxide 24 mmol/L (22-30); Chloride 106 mmol/L (98-107); Glucose 306 mg/dL (74-99); Sodium 141 mmol/L (137-145); Total Bilirubin 0.3 mg/dL (0.2-1.3); Total Protein 7.2 g/dL (6.3-8.2)
[2017-09-16 18:10] LABS: Valproic Acid (Depakene) <10.0 ug/mL
[2017-09-16 19:22] LABS: Appearance,Urine Clear (Clear); Bilirubin,Urine Negative (Negative); Blood,Urine Negative (Negative); Color,Urine Yellow; Glucose,Urine (UA) 4+ (Negative); Ketones,Urine Negative (Negative); Leukocyte Esterase,Urine Negative (Negative); Nitrite,Urine Negative (Negative); PH, Urine 5.5 (5.0-8.0); Protein,Urine Negative (Negative); Specific Gravity,Urine 1.014 (1.001-1.035); Urobilinogen,Urine <2.0 mg/dL (<2.0)
[2017-09-16 19:32] LABS: Amphetamine Screen,Urine Not Detected (NotDetected); Barbiturate Screen,Urine Not Detected (NotDetected); Benzodiazepines Screen,Urine Detected (NotDetected); Cocaine Screen,Urine Not Detected (NotDetected); Methadone Screen, Urine Not Detected (NotDetected); Opiate Screen,Urine Detected (NotDetected); Oxycodone Screen, Urine Not Detected (NotDetected); Phencyclidine Screen,Urine Not Detected (NotDetected); Tricyclic Antidepressant,Urine Not Detected (NotDetected); Urn Cannabinoid Scrn Not Detected (NotDetected)
[2017-09-16] MEDS: SYMBICORT 160-4.5 MCG INHALER INHALATION SCH (19:33)
[2017-09-16] MEDS: METOCLOPRAMIDE 5 MG TAB PO SCH (20:06)
[2017-09-16] MEDS: FAMOTIDINE 20 MG TAB PO SCH (20:06)
[2017-09-16] MEDS: ALPRAZolam 1 MG TAB PO SCH (20:06)
[2017-09-16] MEDS: DOCUSATE 100 MG CAP PO SCH (20:06)
[2017-09-16] MEDS: SULFAMETHOX-TMP 800-160MG 1 EACH TAB PO SCH (20:06)
[2017-09-16] MEDS: HYDROcodone/APAP 10-325MG 1 EACH TAB PO PRN (20:06)
[2017-09-16 20:59] LABS: Glucose,Whole Blood 421 mg/dL (75-99)
[2017-09-16] MEDS: INSULIN ASPART 100 UNIT/ML 1 ML 10 ML VIAL SQ SCH (21:09)
[2017-09-16] MEDS: INSULIN DETEMIR 100 UNIT/ML 10 ML VIAL SQ SCH (21:09)
[2017-09-16] MEDS: SODIUM CHLORIDE 0.9% 1,000 ML IV SCH (23:20)
[2017-09-17 04:01] VITALS: BMI 21.5
[2017-09-17] MEDS: INSULIN ASPART 100 UNIT/ML 1 ML 10 ML VIAL SQ SCH ×4 (08:26→21:16)
[2017-09-17] MEDS: ALPRAZolam 1 MG TAB PO SCH ×3 (08:27→21:14)
[2017-09-17] MEDS: HYDROcodone/APAP 10-325MG 1 EACH TAB PO PRN ×3 (08:27→21:14)
[2017-09-17] MEDS: NICOTINE 14MG/24HR PATCH TRANSDERM SCH (08:29)
[2017-09-17] MEDS: SULFAMETHOX-TMP 800-160MG 1 EACH TAB PO SCH ×2 (08:31→21:16)
[2017-09-17] MEDS: DULoxetine HCL 60 MG CAPSULE.DR PO SCH (08:31)
[2017-09-17] MEDS: ARIPiprazole 2 MG TAB PO SCH (08:31)
[2017-09-17] MEDS: B COMPLEX-VIT C-VIT E-ZINC 1 EACH TAB PO SCH (08:31)
[2017-09-17 08:32] LABS: Glucose,Whole Blood 200 mg/dL (75-99)
[2017-09-17] MEDS: METOCLOPRAMIDE 5 MG TAB PO SCH ×3 (08:32→21:16)
[2017-09-17] MEDS: FAMOTIDINE 20 MG TAB PO SCH ×2 (08:33→21:16)
[2017-09-17] MEDS: FERROUS SULFATE 325 MG TAB PO SCH (08:33)
[2017-09-17] MEDS: DIVALPROEX 250 MG TABLET.DR PO SCH (08:33)
[2017-09-17] MEDS: DOCUSATE 100 MG CAP PO SCH ×2 (08:33→21:16)
[2017-09-17] MEDS: ASPIRIN 81 MG PO SCH (08:34)
[2017-09-17] MEDS: SYMBICORT 160-4.5 MCG INHALER INHALATION SCH ×2 (08:37→19:45)
[2017-09-17 09:45] LABS: Basophils % (A) 0 %; Eosinophils # (A) 0.1 k/uL (0-0.7); Eosinophils % (A) 2 %; HCT 31.3 % (34.0-46.0); HGB 9.9 gm/dL (11.4-16.0); Lymphocytes # (A) 1.4 k/uL (1.0-4.8); Lymphocytes % (A) 35 %; MCH 30.1 pg (25.0-35.0); MCHC 31.5 g/dL (31.0-37.0); MCV 95.7 fL (80.0-100.0); Monocytes # (A) 0.3 k/uL (0-1.0); Monocytes % (A) 6 %; Neutrophils # (A) 2.1 k/uL (1.3-7.7); Neutrophils % (A) 54 %; Platelet Count 231 k/uL (150-450); RBC 3.27 m/uL (3.80-5.40)
--- NOTE | 2017-09-17 09:45 | P.CONS ---
History of Present Illness - Reason for Consult Consult date: 09/17/17 Right lower extremity wound - History of Present Illness This is a 57-year-old female patient who was recently hospitalized September 05 through September 10 and was seen by ID service due to a MRSA diabetic ulcer right heel. Patient was discharged on Bactrim and she subsequently followed up with Dr. Cadena in the wound healing center on September 14. He recommended thoroughly padding that he'll ulcer as patient was traumatizing the area in order to get cigarettes. Otherwise Eucerin cream to be used on dry areas. Patient apparently had violent outburst yesterday and was trying to hurt herself and was also trying to get cigarettes again. She was trying to traumatize her wound opened it. Patient was found to be afebrile with white count of 4.9, blood pressure was elevated 165/101, potassium 6, BUN 35 creatinine 1.1. Urine drug screen was positive for opiates and benzodiazepines. Blood sugars running in the 300-420. Urinalysis was clear other than 4+ glucose. Blood cultures status received. Patient has been admitted to the [facility] floor and a psychiatry consult is in place. Patient has a sitter at the bedside and her full-time caregiver is also at the bedside. Patient can verbalize what happened yesterday and realizes that it was a poor choice at this time denies wanting to hurt herself. She is complaining of pain to the right heel. No fever or chills. She has been eating without difficulty. She denies any nausea or vomiting. No chest pain shortness of breath or cough. Regarding smoking, patient is trying to quit and using a nicotine patch. Review of Systems All systems: negative Constitutional: Denies anorexia, Denies chills, Denies fatigue, Denies fever, Denies lethargy, Denies malaise, Denies poor appetite, Denies weakness Eyes: denies blurred vision, denies pain Ears, nose, mouth and throat: Denies dental pain, Denies headache, Denies mouth pain, Denies sore throat, Denies vertigo Cardiovascular: Denies chest pain, Denies dyspnea on exertion, Denies edema, Denies leg edema, Denies lightheadedness, Denies shortness of breath, Denies syncope Respiratory: Denies congestion, Denies cough, Denies cough with sputum, Denies dyspnea, Denies excessive sputum, Denies hemoptysis, Denies home oxygen, Denies wheezing Gastrointestinal: Denies abdominal pain, Denies diarrhea, Denies nausea, Denies vomiting Genitourinary: Denies dysuria, Denies hematuria Musculoskeletal: Denies myalgias Integumentary: Reports wounds, Denies pruritus, Denies rash Neurological: Denies numbness, Denies weakness Psychiatric: Denies anxiety, Denies depression Endocrine: Denies fatigue, Denies weight change Past Medical History Past Medical History: Chest Pain / Angina, Heart Failure, COPD, CVA/TIA, Diabetes Mellitus, Deep Vein Thrombosis (DVT), Eye Disorder, GERD/Reflux, Hyperlipidemia, Hypertension, Myocardial Infarction ([place]), Thyroid Disorder Additional Past Medical History / Comment(s): HX OF CVA X3 (LAST 11/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 [place] 2011. DVT RT AXILLA. RENAL FAILURE. LOW THYROID, PERIPHERAL NEUROPATHY HANDS & FEET. ANEMIA. HX OF DKA. USES W/ C. CONSTIPATION, ESOPHAGITIS. EPIGLOTITIS. HEADACHES SINCE CVA. RETINOPATHY SHIVA EYES. HX RT TOE INFECTION- GANGRENE, HAD AMP."i need eye sx-i have bleeding behind the eyes" Last Myocardial Infarction Date:: 2011 History of Any Multi-Drug Resistant Organisms: MRSA Year Discovered:: 09/06/17 MDRO Source:: Right Foot Past Surgical History: Appendectomy, Section, Cholecystectomy, Heart Catheterization With Stent, Hysterectomy, Orthopedic Surgery Additional Past Surgical History / Comment(s): Amputation Rt 2ND Toe. C-S X3. EGD. Bronchoscopy. RT Arm Port Placed FOR AB RX; Removed. 6 CARDIAC STENTS. left shoulder bone removed Past Anesthesia/Blood Transfusion Reactions: No Reported Reaction Additional Past Anesthesia/Blood Transfusion Reaction / Comm: HX OF BLOOD TRANSFUSION- NO REACTION Date of Last Stent Placement:: July 2012 Past Psychological History: Anxiety, Bipolar, Depression Additional Psychological History / Comment(s): PT HAS A AUTOMATIC PATTERN EDGER-DOMINIQUE. DOMINIQUE STATED PT UNABLE TO AMBULATE(LT SIDE WAS AFFECTED BY STROKE) USES A W/C. also has glucometer,shower chair(has cane /walker that she previously used). Patient does continue to smoke, the caregivers relate that the patient is unmanageable without tobacco use. She is on multiple psychiatric medications it was not thought to be a candidate for Chantix. Smoking Status: Current every day smoker Past Alcohol Use History: None Reported Additional Past Alcohol Use History / Comment(s): Patient states she is using a e cigarettes. She has a 24-hour caregiver that lives with her. She is wheelchair bound. Past Drug Use History: None Reported - Past Family History Father Family Medical History: Unable to Obtain, Coronary Artery Disease (CAD), Diabetes Mellitus Mother Family Medical History: COPD Medications and Allergies Home Medications Medication Instructions Recorded Confirmed Type Albuterol Inhaler [Ventolin Hfa 2 puff INHALATION RT-Q4H PRN 07/19/15 09/16/17 History Inhaler] Aspirin EC [Ecotrin Low Dose] 81 mg PO DAILY 07/19/15 09/16/17 History Famotidine [Pepcid] 20 mg PO BID 07/19/15 09/16/17 History Valproic Acid [Depakene] 250 mg PO DAILY 07/19/15 09/16/17 History Budesonide-Formot 160-4.5 Mcg 2 puff INHALATION RT-BID 03/05/16 09/16/17 History [Symbicort 160-4.5 Mcg Inhaler] Ergocalciferol [Vitamin D2 50,000 unit PO Q7D 03/05/16 09/16/17 History (DRISDOL)] HYDROcodone/APAP 10-325MG [[place] 1 tab PO Q6H PRN 10/03/16 09/16/17 History 10-325] DULoxetine HCL [Cymbalta] 60 mg PO DAILY 02/16/17 09/16/17 History Ferrous Sulfate [Iron (65 MG 325 mg PO DAILY 02/16/17 09/16/17 History Elemental)] Insulin Lispro [humaLOG] 0 units SQ AC-TID 02/16/17 09/16/17 History ALPRAZolam [Xanax] 1 mg PO TID 02/19/17 09/16/17 History Docusate [Colace] 100 mg PO BID 06/07/17 09/16/17 History EPINEPHrine (Auto Inject) [Epipen] 0.3 mg IM ONCE PRN 06/07/17 09/16/17 History Glucagon Emergency Kit 1 mg SQ ONCE PRN 06/07/17 09/16/17 History Insulin Glargine [Lantus] 20 unit SQ HS 06/07/17 09/16/17 History Vitamin B Complex 1 cap PO DAILY 06/07/17 09/16/17 History ARIPiprazole [Abilify] 2 mg PO DAILY 09/06/17 09/16/17 History Metoclopramide [Reglan] 5 mg PO TID 09/06/17 09/16/17 History Nitroglycerin Sl Tabs [Nitrostat] 0.4 mg SUBLINGUAL Q5M PRN 09/06/17 09/16/17 History Ondansetron [Zofran] 4 mg PO DAILY PRN 09/06/17 09/16/17 History SILVER sulfADIAZINE Cream 1 applic TOPICAL DAILY PRN 09/06/17 09/16/17 History [Silvadene 1% Cream] Nicotine 14Mg/24Hr Patch [Habitrol] 1 patch TRANSDERM DAILY #30 patch 09/10/17 09/16/17 Rx Sulfamethox-Tmp 800-160Mg [Bactrim 1 tab PO Q12HR #28 tab 09/10/17 09/16/17 Rx DS 800-160 mg] Allergies Allergy/AdvReac Type Severity Reaction Status Date / Time Barbiturates Allergy Rash/Hives Verified 09/16/17 17:13 cephalexin monohydrate Allergy Rash/Hives Verified 09/16/17 17:13 [From Keflex] morphine Allergy Rash/Hives Verified 09/16/17 17:13 Penicillins Allergy Rash/Hives Verified 09/16/17 17:13 phenobarbital Allergy Swelling Verified 09/16/17 17:13 venom-honey bee Allergy Swelling Verified 09/16/17 17:13 [bee venom (honey bee)] amlodipine besylate AdvReac Vomiting Verified 09/16/17 17:13 [From [facility]] Physical Exam Vitals: Vital Signs Temp Pulse Pulse Resp BP BP Pulse Ox 09/16/17 22:40 98.6 F 92 17 109/55 96 09/16/17 18:41 97.6 F 84 18 144/65 97 09/16/17 17:47 83 18 157/75 97 09/16/17 16:29 97.5 F L 93 20 165/101 98 Intake and Output 09/16/17 09/17/17 09/17/17 22:59 06:59 14:59 Intake Total 240 Balance 240 Intake: Oral 240 Other: # Voids 1 1 Weight 53.524 kg Gen: This is a 57-year-old female sitting up in bed and appears to be comfortable and in no acute distress. HEENT: Head is atraumatic, normocephalic. Pupils equal, round. Sclerae is anicteric. NECK: Supple. No JVD. No lymphadenopathy. No thyromegaly. LUNGS: Clear to auscultation. No wheezes or rhonchi. No intercostal retractions. HEART: Regular rate and rhythm. No murmur. ABDOMEN: Soft. Bowel sounds are present. No masses. No tenderness. EXTREMITIES: No pedal edema. No calf tenderness. To the right heel there is an ulceration noted with scant drainage, no significant erythema. No foul order. NEUROLOGICAL: Patient is awake, alert and oriented x3. Cranial nerves 2 through 12 are grossly intact. Results Results: Laboratory Results WBC 4.9 k/uL (3.8-10.6) 09/16/17 17:38 RBC 3.48 m/uL (3.80-5.40) L 09/16/17 17:38 Hgb 10.6 gm/dL (11.4-16.0) L 09/16/17 17:38 Hct 32.3 % (34.0-46.0) L 09/16/17 17:38 MCV 92.7 fL (80.0-100.0) 09/16/17 17:38 MCH 30.5 pg (25.0-35.0) 09/16/17 17:38 MCHC 32.9 g/dL (31.0-37.0) 09/16/17 17:38 RDW 12.7 % (11.5-15.5) 09/16/17 17:38 Plt Count 263 k/uL (150-450) 09/16/17 17:38 Neutrophils % 67 % 09/16/17 17:38 Lymphocytes % 23 % 09/16/17 17:38 Monocytes % 5 % 09/16/17 17:38 Eosinophils % 1 % 09/16/17 17:38 Basophils % 0 % 09/16/17 17:38 Neutrophils # 3.3 k/uL (1.3-7.7) 09/16/17 17:38 Lymphocytes # 1.1 k/uL (1.0-4.8) 09/16/17 17:38 Monocytes # 0.2 k/uL (0-1.0) 09/16/17 17:38 Eosinophils # 0.1 k/uL (0-0.7) 09/16/17 17:38 Basophils # 0.0 k/uL (0-0.2) 09/16/17 17:38 Sodium 141 mmol/L (137-145) 09/16/17 17:38 Potassium 6.0 mmol/L (3.5-5.1) H 09/16/17 17:38 Chloride 106 mmol/L (98-107) 09/16/17 17:38 Carbon Dioxide 24 mmol/L (22-30) 09/16/17 17:38 Anion Gap 11 mmol/L 09/16/17 17:38 BUN 35 mg/dL (7-17) H 09/16/17 17:38 Creatinine 1.10 mg/dL (0.52-1.04) H 09/16/17 17:38 Est GFR (CKD-EPI)AfAm 64 (>60 ml/min/1.73 sqM) 09/16/17 17:38 Est GFR (CKD-EPI)NonAf 56 (>60 ml/min/1.73 sqM) 09/16/17 17:38 Glucose 306 mg/dL (74-99) H 09/16/17 17:38 POC Glucose (mg/dL) 200 mg/dL (75-99) H 09/17/17 08:20 POC Glu [employer] ID Latosha Daley 09/17/17 08:20 Calcium 9.9 mg/dL (8.4-10.2) 09/16/17 17:38 Magnesium 2.0 mg/dL (1.6-2.3) 09/16/17 17:38 Total Bilirubin 0.3 mg/dL (0.2-1.3) 09/16/17 17:38 AST 21 U/L (14-36) 09/16/17 17:38 ALT 48 U/L (9-52) 09/16/17 17:38 Alkaline Phosphatase 107 U/L (38-126) 09/16/17 17:38 Total Protein 7.2 g/dL (6.3-8.2) 09/16/17 17:38 Albumin 4.2 g/dL (3.5-5.0) 09/16/17 17:38 Urine Color Yellow 09/16/17 19:10 Urine Appearance Clear (Clear) 09/16/17 19:10 Urine pH 5.5 (5.0-8.0) 09/16/17 19:10 Ur Specific [place] 1.014 (1.001-1.035) 09/16/17 19:10 Urine Protein Negative (Negative) 09/16/17 19:10 Urine Glucose (UA) 4+ (Negative) H 09/16/17 19:10 Urine Ketones Negative (Negative) 09/16/17 19:10 Urine Blood Negative (Negative) 09/16/17 19:10 Urine Nitrite Negative (Negative) 09/16/17 19:10 Urine Bilirubin Negative (Negative) 09/16/17 19:10 Urine Urobilinogen <2.0 mg/dL (<2.0) 09/16/17 19:10 Ur Leukocyte Esterase Negative (Negative) 09/16/17 19:10 Urine Opiates Screen Detected (NotDetected) H 09/16/17 19:10 Ur Oxycodone Screen Not Detected (NotDetected) 09/16/17 19:10 Urine Methadone Screen Not Detected (NotDetected) 09/16/17 19:10 Ur Propoxyphene Screen Not Detected (NotDetected) 09/16/17 19:10 Ur Barbiturates Screen Not Detected (NotDetected) 09/16/17 19:10 Valproic Acid <10.0 ug/mL 09/16/17 17:38 U Tricyclic Antidepress Not Detected (NotDetected) 09/16/17 19:10 Ur Phencyclidine Scrn Not Detected (NotDetected) 09/16/17 19:10 Ur Amphetamines Screen Not Detected (NotDetected) 09/16/17 19:10 U Methamphetamines Scrn Not Detected (NotDetected) 09/16/17 19:10 U Benzodiazepines Scrn Detected (NotDetected) H 09/16/17 19:10 Urine Cocaine Screen Not Detected (NotDetected) 09/16/17 19:10 U Marijuana (THC) Screen Not Detected (NotDetected) 04/19/18 19:10 CBC & Chem 7: 09/18/17 07:35 09/17/17 09:09 Labs: Abnormal Lab Results - Last 24 Hours (Table) 09/16/17 09/16/17 09/16/17 Range/Units 17:38 17:38 17:57 RBC 3.48 L (3.80-5.40) m/uL Hgb 10.6 L (11.4-16.0) gm/dL Hct 32.3 L (34.0-46.0) % Potassium 6.0 H (3.5-5.1) mmol/L BUN 35 H (7-17) mg/dL Creatinine 1.10 H (0.52-1.04) mg/dL Glucose 306 H (74-99) mg/dL POC Glucose (mg/dL) 332 H (75-99) mg/dL Urine Glucose (UA) (Negative) Urine Opiates Screen (NotDetected) U Benzodiazepines Scrn (NotDetected) 09/16/17 09/16/17 09/17/17 Range/Units 19:10 20:39 08:20 RBC (3.80-5.40) m/uL Hgb (11.4-16.0) gm/dL Hct (34.0-46.0) % Potassium (3.5-5.1) mmol/L BUN (7-17) mg/dL Creatinine (0.52-1.04) mg/dL Glucose (74-99) mg/dL POC Glucose (mg/dL) 421 H 200 H (75-99) mg/dL Urine Glucose (UA) 4+ H (Negative) Urine Opiates Screen Detected H (NotDetected) U Benzodiazepines Scrn Detected H (NotDetected) Assessment and Plan Plan: This is a 57-year-old female who presented to the hospital after self- inflicted trauma to her right heel diabetic ulcer, present on admission and concern for depression and suicidl thoughts. Patient has been on Bactrim for MRSA infection of this diabetic ulcer which is continued. She is awaiting psychiatric evaluation with sitter at the bedside as well as full-time caregiver at the bedside. Local wound care will be addressed. Continue supportive care. Further recommendations as patient progresses. The above dictated assessment and findings were discussed with Dr. Mendez. The impression and plan of care have been directed as dictated. Lois Gibbs nurse practitioner acting as scribe for Dr. Mendez.
[2017-09-17 10:12] LABS: Albumin 3.5 g/dL (3.5-5.0); Calcium 9.2 mg/dL (8.4-10.2); Potassium 5.4 mmol/L (3.5-5.1); Total Bilirubin 0.2 mg/dL (0.2-1.3); Total Protein 6.4 g/dL (6.3-8.2)
[2017-09-17] MEDS ORDERED: SODIUM POLYSTYRENE SULFONATE 15 GM/60 ML BOTTLE PO STA (10:35)
[2017-09-17] MEDS: ALBUTEROL NEBULIZED 2.5 MG/3 ML INHALATION PRN (10:54)
[2017-09-17 11:24] LABS: Glucose,Whole Blood 167 mg/dL (75-99)
--- NOTE | 2017-09-17 13:39 | P.HPIM ---
History of Present Illness H&P Date: 09/17/17 Chief Complaint: Combative and aggressive behavior This is a 57-year-old female with a known past medical history of uncontrolled diabetes mellitus type 2, COPD, hyperlipidemia, hypertension, myocardial infarction, CVA with left-sided paralysis, coronary artery disease with previous cardiac stents, chronic kidney disease stage III, depression and possible bipolar. She also was recently hospitalized with a right heel diabetic ulcer. She's followed at the wound care center and has been on Bactrim. Patient went to see Dr. Chen yesterday family was concerned regarding her change in behavior. Patient has been very aggressive and having violent behavior. She has been aggressive towards her caregivers. She's also been hurting herself on purpose. As far as her left heel wound she has been hitting that purposely against things and breaking the new scab open. Also she has been scratching at herself on the left arm and the left side of her chin. She's brought it into the emergency room for further evaluation and psychiatric evaluation. Patient does have some evidence of dehydration and acute kidney injury. Creatinine has gone up to 1.55. She also has some hypokalemia with a potassium of 6. Repeat potassium is 5.4 and she is receiving Kayexalate. And IV fluids have been started. She is on the Bactrim for the left diabetic heel ulcer. Patient is currently sitting in bed comfortably no signs of agitation. She was actually able to sleep through the night. Family had also mentioned patient now has been having difficulty sleeping and not very much. Patient denies any fever chills or sweats. Denies any nausea or vomiting. Denies any bowel movement changes or urinary symptoms. 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 [place] 2012. DVT RT AXILLA. RENAL FAILURE. LOW THYROID, PERIPHERAL NEUROPATHY HANDS & FEET. ANEMIA. HX OF DKA. USES W/ C. CONSTIPATION, ESOPHAGITIS. EPIGLOTITIS. HEADACHES SINCE CVA. RETINOPATHY SHIVA EYES. HX RT TOE INFECTION- GANGRENE, HAD AMP."i need eye sx-i have bleeding behind the eyes" Last Myocardial Infarction Date:: 2011 History of Any Multi-Drug Resistant Organisms: MRSA Date of last positivie culture/infection: 09/06/17 MDRO Source:: Right Foot Past Surgical History: Appendectomy, Section, Cholecystectomy, Heart Catheterization With Stent, Hysterectomy, Orthopedic Surgery Additional Past Surgical History / Comment(s): Amputation Rt 2ND Toe. C-S X3. EGD. Bronchoscopy. RT Arm Port Placed FOR AB RX; Removed. 6 CARDIAC STENTS. left shoulder bone removed Past Anesthesia/Blood Transfusion Reactions: No Reported Reaction Additional Past Anesthesia/Blood Transfusion Reaction / Comment(s): HX OF BLOOD TRANSFUSION- NO REACTION Date of Last Stent Placement:: July 2012 Past Psychological History: Anxiety, Bipolar, Depression Additional Psychological History / Comment(s): PT HAS A ESTATE CONSERVATOR-DOMINIQUE. DOMINIQUE STATED PT UNABLE TO AMBULATE(LT SIDE WAS AFFECTED BY STROKE) USES A W/C. also has glucometer,shower chair(has cane /walker that she previously used). Patient does continue to smoke, the caregivers relate that the patient is unmanageable without tobacco use. She is on multiple psychiatric medications it was not thought to be a candidate for Chantix. Smoking Status: Current every day smoker Past Alcohol Use History: None Reported Additional Past Alcohol Use History / Comment(s): Patient states she is using a e cigarettes. She has a 24-hour caregiver that lives with her. She is wheelchair bound. Past Drug Use History: None Reported - Past Family History Father Family Medical History: Unable to Obtain, Coronary Artery Disease (CAD), Diabetes Mellitus Mother Family Medical History: COPD Medications and Allergies Home Medications Medication Instructions Recorded Confirmed Type Albuterol Inhaler [Ventolin Hfa 2 puff INHALATION RT-Q4H PRN 07/19/15 09/16/17 History Inhaler] Aspirin EC [Ecotrin Low Dose] 81 mg PO DAILY 07/19/15 09/16/17 History Famotidine [Pepcid] 20 mg PO BID 07/19/15 09/16/17 History Valproic Acid [Depakene] 250 mg PO DAILY 07/19/15 09/16/17 History Budesonide-Formot 160-4.5 Mcg 2 puff INHALATION RT-BID 03/05/16 09/16/17 History [Symbicort 160-4.5 Mcg Inhaler] Ergocalciferol [Vitamin D2 50,000 unit PO Q7D 03/05/16 09/16/17 History (DRISDOL)] HYDROcodone/APAP 10-325MG [[place] 1 tab PO Q6H PRN 10/03/16 09/16/17 History 10-325] DULoxetine HCL [Cymbalta] 60 mg PO DAILY 02/16/17 09/16/17 History Ferrous Sulfate [Iron (65 MG 325 mg PO DAILY 02/16/17 09/16/17 History Elemental)] Insulin Lispro [humaLOG] 0 units SQ AC-TID 02/16/17 09/16/17 History ALPRAZolam [Xanax] 1 mg PO TID 02/19/17 09/16/17 History Docusate [Colace] 100 mg PO BID 06/07/17 09/16/17 History EPINEPHrine (Auto Inject) [Epipen] 0.3 mg IM ONCE PRN 06/07/17 09/16/17 History Glucagon Emergency Kit 1 mg SQ ONCE PRN 06/07/17 09/16/17 History Insulin Glargine [Lantus] 20 unit SQ HS 06/07/17 09/16/17 History Vitamin B Complex 1 cap PO DAILY 06/07/17 09/16/17 History ARIPiprazole [Abilify] 2 mg PO DAILY 09/06/17 09/16/17 History Metoclopramide [Reglan] 5 mg PO TID 09/06/17 09/16/17 History Nitroglycerin Sl Tabs [Nitrostat] 0.4 mg SUBLINGUAL Q5M PRN 09/06/17 09/16/17 History Ondansetron [Zofran] 4 mg PO DAILY PRN 09/06/17 09/16/17 History SILVER sulfADIAZINE Cream 1 applic TOPICAL DAILY PRN 09/06/17 09/16/17 History [Silvadene 1% Cream] Nicotine 14Mg/24Hr Patch [Habitrol] 1 patch TRANSDERM DAILY #30 patch 09/10/17 09/16/17 Rx Sulfamethox-Tmp 800-160Mg [Bactrim 1 tab PO Q12HR #28 tab 09/10/17 09/16/17 Rx DS 800-160 mg] Allergies Allergy/AdvReac Type Severity Reaction Status Date / Time Barbiturates Allergy Rash/Hives Verified 09/16/17 17:13 cephalexin monohydrate Allergy Rash/Hives Verified 09/16/17 17:13 [From Keflex] morphine Allergy Rash/Hives Verified 09/16/17 17:13 Penicillins Allergy Rash/Hives Verified 09/16/17 17:13 phenobarbital Allergy Swelling Verified 09/16/17 17:13 venom-honey bee Allergy Swelling Verified 09/16/17 17:13 [bee venom (honey bee)] amlodipine besylate AdvReac Vomiting Verified 09/16/17 17:13 [From [facility]] Physical Exam Vitals: Vital Signs Temp Pulse Pulse Resp BP BP Pulse Ox 09/17/17 11:05 88 09/17/17 10:54 88 09/16/17 22:40 98.6 F 92 17 109/55 96 09/16/17 18:41 97.6 F 84 18 144/65 97 09/16/17 17:47 83 18 157/75 97 09/16/17 16:29 97.5 F L 93 20 165/101 98 Intake and Output 09/16/17 09/17/17 09/17/17 22:59 06:59 14:59 Intake Total 240 Balance 240 Intake: Oral 240 Other: # Voids 1 1 Weight 53.524 kg Head normocephalic Neck supple Lungs clear to auscultation bilaterally no wheezing or crackles Heart regular rate and rhythm S1-S2, no rub or gallop Abdomen is soft nontender nondistended positive bowel sounds no hepatosplenomegaly Extremities no edema. Healing right heel ulcer. There is a scab present. No evidence of any drainage or cellulitis. Neuro alert and orientated to 3. Patient is calm and answering questions appropriately no signs of aggression. Bedside sitter present. Left-sided paralysis from old stroke Results CBC & Chem 7: 09/17/17 09:09 09/17/17 09:09 Labs: Abnormal Lab Results - Last 24 Hours (Table) 09/16/17 09/16/17 09/16/17 Range/Units 17:38 17:38 17:57 RBC 3.48 L (3.80-5.40) m/uL Hgb 10.6 L (11.4-16.0) gm/dL Hct 32.3 L (34.0-46.0) % Potassium 6.0 H (3.5-5.1) mmol/L BUN 35 H (7-17) mg/dL Creatinine 1.10 H (0.52-1.04) mg/dL Glucose 306 H (74-99) mg/dL POC Glucose (mg/dL) 332 H (75-99) mg/dL Urine Glucose (UA) (Negative) Urine Opiates Screen (NotDetected) U Benzodiazepines Scrn (NotDetected) 09/16/17 09/16/17 09/17/17 Range/Units 19:10 20:39 08:20 RBC (3.80-5.40) m/uL Hgb (11.4-16.0) gm/dL Hct (34.0-46.0) % Potassium (3.5-5.1) mmol/L BUN (7-17) mg/dL Creatinine (0.52-1.04) mg/dL Glucose (74-99) mg/dL POC Glucose (mg/dL) 421 H 200 H (75-99) mg/dL Urine Glucose (UA) 4+ H (Negative) Urine Opiates Screen Detected H (NotDetected) U Benzodiazepines Scrn Detected H (NotDetected) 09/17/17 09/17/17 09/17/17 Range/Units 09:09 09:09 11:22 RBC 3.27 L (3.80-5.40) m/uL Hgb 9.9 L (11.4-16.0) gm/dL Hct 31.3 L (34.0-46.0) % Potassium 5.4 H (3.5-5.1) mmol/L BUN 39 H (7-17) mg/dL Creatinine 1.55 H (0.52-1.04) mg/dL Glucose 296 H (74-99) mg/dL POC Glucose (mg/dL) 167 H (75-99) mg/dL Urine Glucose (UA) (Negative) Urine Opiates Screen (NotDetected) U Benzodiazepines Scrn (NotDetected) Assessment and Plan Assessment: 1. Aggressive behavior and agitation: We'll have patient evaluated by psychiatry. Patient reports that she has been taking her psychiatric meds as scheduled 2. History of depression and possible bipolar 3. Healing Diabetic right heel ulcer: Continue with the Bactrim. Infectious disease consulted 4. Acute kidney injury: Start normal saline at 50 mL an hour. Repeat labs in a.m. 5. Hyperkalemia: Patient receiving Kayexalate. Repeat potassium level in a.m. 6. Acute on chronic kidney disease, stage III 7 insulin-dependent diabetes mellitus, type II with uncontrolled blood sugars: Continue Levemir and sliding scale coverage 8. History of CVA with left-sided paralysis 9. History of coronary artery disease cardiac enzymes 10. History of iron deficiency anemia 11. Nicotine dependence: Continue nicotine patch. Discussed smoking cessation for greater than 3 minutes GI prophylaxis Pepcid and DVT prophylaxis Lovenox Time with Patient: Greater than 30 (Greater than 50% of the total time spent in counseling and coordination of care.I performed an examination of the patient and discussed their management with the physician Leather Cutter. I have reviewed the Physician Leather Cutter's notes and agree with the documented findings and plan of care)
[2017-09-17] MEDS: SODIUM CHLORIDE 0.9% 1,000 ML IV SCH (15:05)
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
[2017-09-17 17:39] LABS: Glucose,Whole Blood 272 mg/dL (75-99)
[2017-09-17 20:25] LABS: Glucose,Whole Blood 233 mg/dL (75-99)
[2017-09-17] MEDS: INSULIN DETEMIR 100 UNIT/ML 10 ML VIAL SQ SCH (21:15)
[2017-09-18] MEDS: HYDROcodone/APAP 10-325MG 1 EACH TAB PO PRN ×3 (06:12→22:00)
[2017-09-18 07:35] LABS: Glucose,Whole Blood 73 mg/dL (75-99)
[2017-09-18 08:01] LABS: Basophils % (A) 0 %; Eosinophils # (A) 0.1 k/uL (0-0.7); Eosinophils % (A) 2 %; HGB 9.2 gm/dL (11.4-16.0); Lymphocytes % (A) 43 %; MCH 29.7 pg (25.0-35.0); MCHC 31.6 g/dL (31.0-37.0); MCV 94.1 fL (80.0-100.0); Monocytes # (A) 0.3 k/uL (0-1.0); Monocytes % (A) 6 %; Neutrophils # (A) 2.2 k/uL (1.3-7.7); Neutrophils % (A) 47 %; Platelet Count 209 k/uL (150-450); RBC 3.08 m/uL (3.80-5.40); RDW 13.2 % (11.5-15.5); WBC 4.7 k/uL (3.8-10.6)
[2017-09-18 08:23] LABS: Albumin 3.2 g/dL (3.5-5.0); Calcium 8.8 mg/dL (8.4-10.2); Potassium 4.7 mmol/L (3.5-5.1); Total Bilirubin 0.1 mg/dL (0.2-1.3)
[2017-09-18] MEDS: INSULIN ASPART 100 UNIT/ML 1 ML 10 ML VIAL SQ SCH ×4 (08:32→22:01)
--- NOTE | 2017-09-18 09:02 | P.CON ---
Consult Note - . Consult date: 09/17/17 Assessment/Plan:: This is a 57-year-old female patient who was recently hospitalized September 05 through September 10 and was seen by ID service due to a MRSA diabetic ulcer right heel. Patient was discharged on Bactrim and she subsequently followed up with Dr. Cadena in the wound healing center on September 14. He recommended thoroughly padding that he'll ulcer as patient was traumatizing the area in order to get cigarettes. Otherwise Eucerin cream to be used on dry areas. Patient apparently had violent outburst yesterday and was trying to hurt herself and was also trying to get cigarettes again. She was trying to traumatize her wound opened it. Patient was found to be afebrile with white count of 4.9, blood pressure was elevated 165/101, potassium 6, BUN 35 creatinine 1.1. Urine drug screen was positive for opiates and benzodiazepines. Blood sugars running in the 300-420. Urinalysis was clear other than 4+ glucose. Blood cultures status received. Patient has been admitted to the [facility] floor and a psychiatry consult is in place. Patient has a sitter at the bedside and her full-time caregiver is also at the bedside. Patient can verbalize what happened yesterday and realizes that it was a poor choice at this time denies wanting to hurt herself. She is complaining of pain to the right heel. No fever or chills. She has been eating without difficulty. She denies any nausea or vomiting. No chest pain shortness of breath or cough. Regarding smoking, patient is trying to quit and using a nicotine patch.Please see consult note as dictated by JACEK Gibbs. Patient aware of poor behaviour and the consequences that are now occurring, patient denies suicidal ideation or desire to self harm at this time. Will have psych eval and will have local wound care as ordered. Off load the heel and avoid further trauma. Needs follow up as outpatient for the ulceration to the right heel which is not draining at this time. I agree with the evaluation assessment and plan as dictated by JACEK Gibbs..
[2017-09-18] MEDS: ARIPiprazole 2 MG TAB PO SCH (09:04)
[2017-09-18] MEDS: NICOTINE 14MG/24HR PATCH TRANSDERM SCH (09:04)
[2017-09-18] MEDS: DOCUSATE 100 MG CAP PO SCH ×2 (09:04→22:03)
[2017-09-18] MEDS: FAMOTIDINE 20 MG TAB PO SCH ×2 (09:04→22:00)
[2017-09-18] MEDS: ENOXAPARIN 40 MG/0.4 ML SYRINGE SQ SCH (09:04)
[2017-09-18] MEDS: SULFAMETHOX-TMP 800-160MG 1 EACH TAB PO SCH ×2 (09:05→22:01)
[2017-09-18] MEDS: METOCLOPRAMIDE 5 MG TAB PO SCH ×3 (09:05→22:00)
[2017-09-18] MEDS: FERROUS SULFATE 325 MG TAB PO SCH (09:05)
[2017-09-18] MEDS: DIVALPROEX 250 MG TABLET.DR PO SCH (09:05)
[2017-09-18] MEDS: B COMPLEX-VIT C-VIT E-ZINC 1 EACH TAB PO SCH (09:06)
[2017-09-18] MEDS: ASPIRIN 81 MG PO SCH (09:06)
[2017-09-18] MEDS: DULoxetine HCL 60 MG CAPSULE.DR PO SCH (09:06)
[2017-09-18] MEDS: ALPRAZolam 1 MG TAB PO SCH ×3 (09:08→22:00)
[2017-09-18] MEDS: SODIUM CHLORIDE 0.9% 1,000 ML IV SCH (09:13)
[2017-09-18] MEDS: ALBUTEROL NEBULIZED 2.5 MG/3 ML INHALATION PRN (09:25)
[2017-09-18] MEDS: SYMBICORT 160-4.5 MCG INHALER INHALATION SCH ×2 (09:25→21:00)
[2017-09-18 11:41] LABS: Glucose,Whole Blood 258 mg/dL (75-99)
--- NOTE | 2017-09-18 14:55 | P.PN ---
Subjective Progress Note Date: 09/18/17 This is a 57-year-old female with a known past medical history of uncontrolled diabetes mellitus type 2, COPD, hyperlipidemia, hypertension, myocardial infarction, CVA with left-sided paralysis, coronary artery disease with previous cardiac stents, chronic kidney disease stage III, depression and possible bipolar. She also was recently hospitalized with a right heel diabetic ulcer. She's followed at the wound care center and has been on Bactrim. Patient went to see Dr. Chen yesterday family was concerned regarding her change in behavior. Patient has been very aggressive and having violent behavior. She has been aggressive towards her caregivers. She's also been hurting herself on purpose. As far as her left heel wound she has been hitting that purposely against things and breaking the new scab open. Also she has been scratching at herself on the left arm and the left side of her chin. She's brought it into the emergency room for further evaluation and psychiatric evaluation. Patient does have some evidence of dehydration and acute kidney injury. Creatinine has gone up to 1.55. She also has some hypokalemia with a potassium of 6. Repeat potassium is 5.4 and she is receiving Kayexalate. And IV fluids have been started. She is on the Bactrim for the left diabetic heel ulcer. Patient is currently sitting in bed comfortably no signs of agitation. She was actually able to sleep through the night. Family had also mentioned patient now has been having difficulty sleeping and not very much. Patient denies any fever chills or sweats. Denies any nausea or vomiting. Denies any bowel movement changes or urinary symptoms. Denies any chest pain or shortness of breath. On 09/18/2017 patient is alert and oriented she is calm today, family is at bedside and they do not report any episode of anger or aggressive behavior, lower extremity open wound and cellulitis improving gradually patient was seen by Dr. Mendez she is on oral antibiotic and local wound care, patient denies any symptoms at this time. Objective - Vital Signs Vital signs: Vital Signs Temp 97.9 F 09/18/17 07:35 Pulse 80 09/18/17 09:40 Resp 18 09/18/17 07:35 BP 121/68 09/18/17 07:35 Pulse Ox 97 09/18/17 07:35 Intake & Output 09/17/17 09/18/17 09/18/17 18:59 06:59 18:59 Intake Total 980 400 Balance 980 400 Weight 53.524 kg Intake: IV 400 Sodium Chloride 0.9% 1, 400 000 ml @ 50 mls/hr IV . Q20H HUMAIRA Rx#:[id number] Intake, IV Titration 400 Amount Sodium Chloride 0.9% 1, 400 000 ml @ 50 mls/hr IV . Q20H HUMAIRA Rx#:[id number] Oral 580 Other: Voiding Method Bedside Commode Bedside Commode # Voids 2 2 # Bowel Movements 1 - Exam Head normocephalic and atraumatic Neck supple no JVD no goiter Lungs clear to auscultation bilaterally no wheezing or crackles Heart regular rate and rhythm S1-S2, no rub or gallop Abdomen is soft nontender nondistended positive bowel sounds no hepatosplenomegaly Extremities no edema. Healing right heel ulcer. There is a scab present. No evidence of any drainage or cellulitis. Neuro alert and orientated to 3. Patient is calm and answering questions appropriately no signs of aggression. Bedside sitter present. Left-sided paralysis from old stroke - Labs CBC & Chem 7: 09/18/17 07:35 09/18/17 07:35 Labs: Abnormal Lab Results - Last 24 Hours (Table) 09/17/17 09/17/17 09/18/17 Range/Units 17:37 20:22 07:30 RBC (3.80-5.40) m/uL Hgb (11.4-16.0) gm/dL Hct (34.0-46.0) % Chloride (98-107) mmol/L BUN (7-17) mg/dL Creatinine (0.52-1.04) mg/dL Glucose (74-99) mg/dL POC Glucose (mg/dL) 272 H 233 H 73 L (75-99) mg/dL Total Bilirubin (0.2-1.3) mg/dL Total Protein (6.3-8.2) g/dL Albumin (3.5-5.0) g/dL 09/18/17 09/18/17 09/18/17 Range/Units 07:35 07:35 11:36 RBC 3.08 L (3.80-5.40) m/uL Hgb 9.2 L (11.4-16.0) gm/dL Hct 29.0 L (34.0-46.0) % Chloride 108 H (98-107) mmol/L BUN 32 H (7-17) mg/dL Creatinine 1.43 H (0.52-1.04) mg/dL Glucose 62 L (74-99) mg/dL POC Glucose (mg/dL) 258 H (75-99) mg/dL Total Bilirubin 0.1 L (0.2-1.3) mg/dL Total Protein 6.0 L (6.3-8.2) g/dL Albumin 3.2 L (3.5-5.0) g/dL Microbiology - Last 24 Hours (Table) 09/16/17 17:38 Blood Culture - Preliminary Blood No Growth after 24 hours Assessment and Plan Plan: 1. Aggressive behavior and agitation: We'll have patient evaluated by psychiatry. Patient reports that she has been taking her psychiatric meds as scheduled 2. History of depression and possible bipolar 3. Healing Diabetic right heel ulcer: Continue with the Bactrim. Infectious disease consulted 4. Acute kidney injury: Start normal saline at 50 mL an hour. Repeat labs in a.m. 5. Hyperkalemia: Patient receiving Kayexalate. Repeat potassium level in a.m. 6. Acute on chronic kidney disease, stage III 7 insulin-dependent diabetes mellitus, type II with uncontrolled blood sugars: Continue Levemir and sliding scale coverage 8. History of CVA with left-sided paralysis 9. History of coronary artery disease cardiac enzymes 10. History of iron deficiency anemia 11. Nicotine dependence: Continue nicotine patch. Discussed smoking cessation for greater than 3 minutes GI prophylaxis Pepcid and DVT prophylaxis Lovenox
[2017-09-18 17:49] LABS: Glucose,Whole Blood 374 mg/dL (75-99)
[2017-09-18] MEDS: INSULIN DETEMIR 100 UNIT/ML 10 ML VIAL SQ SCH (22:01)
[2017-09-18 22:57] VITALS: TEMP 97.6
[2017-09-19 06:43] VITALS: BP 113/60; PULSE 73; RESP 15
[2017-09-19] MEDS: SODIUM CHLORIDE 0.9% 1,000 ML IV SCH ×2 (07:19→07:26)
[2017-09-19 07:32] LABS: Glucose,Whole Blood 103 mg/dL (75-99)
[2017-09-19] MEDS: FAMOTIDINE 20 MG TAB PO SCH (07:33)
[2017-09-19] MEDS: INSULIN ASPART 100 UNIT/ML 1 ML 10 ML VIAL SQ SCH ×2 (07:33→12:19)
[2017-09-19] MEDS: NICOTINE 14MG/24HR PATCH TRANSDERM SCH (07:34)
[2017-09-19] MEDS: DULoxetine HCL 60 MG CAPSULE.DR PO SCH (07:34)
[2017-09-19] MEDS: METOCLOPRAMIDE 5 MG TAB PO SCH (07:34)
[2017-09-19] MEDS: ENOXAPARIN 40 MG/0.4 ML SYRINGE SQ SCH (07:34)
[2017-09-19] MEDS: DOCUSATE 100 MG CAP PO SCH (07:35)
[2017-09-19] MEDS: ARIPiprazole 2 MG TAB PO SCH (07:35)
[2017-09-19] MEDS: ASPIRIN 81 MG PO SCH (07:35)
[2017-09-19] MEDS: SULFAMETHOX-TMP 800-160MG 1 EACH TAB PO SCH (07:35)
[2017-09-19] MEDS: FERROUS SULFATE 325 MG TAB PO SCH (07:35)
[2017-09-19] MEDS: B COMPLEX-VIT C-VIT E-ZINC 1 EACH TAB PO SCH (07:35)
[2017-09-19] MEDS: DIVALPROEX 250 MG TABLET.DR PO SCH (07:36)
[2017-09-19 07:40] LABS: Basophils % (A) 0 %; Eosinophils # (A) 0.1 k/uL (0-0.7); Eosinophils % (A) 2 %; HGB 9.2 gm/dL (11.4-16.0); Lymphocytes # (A) 1.7 k/uL (1.0-4.8); Lymphocytes % (A) 37 %; MCHC 31.6 g/dL (31.0-37.0); MCV 94.9 fL (80.0-100.0); Mean Platelet Volume 8.8; Monocytes # (A) 0.3 k/uL (0-1.0); Monocytes % (A) 6 %; Neutrophils # (A) 2.5 k/uL (1.3-7.7); Neutrophils % (A) 53 %; Platelet Count 195 k/uL (150-450); RBC 3.06 m/uL (3.80-5.40); RDW 13.3 % (11.5-15.5); WBC 4.7 k/uL (3.8-10.6)
[2017-09-19] MEDS: ALPRAZolam 1 MG TAB PO SCH (08:01)
[2017-09-19 09:07] LABS: Calcium 9.3 mg/dL (8.4-10.2); Potassium 5.8 mmol/L (3.5-5.1); Total Bilirubin 0.1 mg/dL (0.2-1.3); Total Protein 5.8 g/dL (6.3-8.2)
[2017-09-19] MEDS: SYMBICORT 160-4.5 MCG INHALER INHALATION SCH (09:21)
[2017-09-19 11:41] LABS: Glucose,Whole Blood 285 mg/dL (75-99)
[2017-09-19] MEDS ORDERED: SODIUM POLYSTYRENE SULFONATE 15 GM/60 ML BOTTLE PO STA (12:54)
--- NOTE | 2017-09-19 13:29 | P.DS ---
Providers Date of admission: 09/17/17 14:02 Expected date of discharge: 09/19/17 Attending physician: Sherlyn Chen Consults: 09/16/17 17:30 Consult Physician Routine Consulting Provider: Adriana Montero Consult Reason/Comments: Depression and adjustment reaction Do you want consulting provider notified?: Yes, Notify in am 09/16/17 17:31 Consult Physician Routine Consulting Provider: Higinio Mendez Consult Reason/Comments: Evaluation of right lower extremity wound Do you want consulting provider notified?: Yes Primary care physician: Sherlyn Gustavo [facility] Course: Diagnosis on discharge: 1. Aggressive behavior and agitation: We'll have patient evaluated by psychiatry. Patient reports that she has been taking her psychiatric meds as scheduled 2. History of depression and possible bipolar 3. Healing Diabetic right heel ulcer: Continue with the Bactrim. Infectious disease consulted 4. Acute kidney injury: Start normal saline at 50 mL an hour. Repeat labs in a.m. 5. Hyperkalemia: Patient receiving Kayexalate. Repeat potassium level in a.m. 6. Acute on chronic kidney disease, stage III 7 insulin-dependent diabetes mellitus, type II with uncontrolled blood sugars: Continue Levemir and sliding scale coverage 8. History of CVA with left-sided paralysis 9. History of coronary artery disease cardiac enzymes 10. History of iron deficiency anemia 11. Nicotine dependence: Continue nicotine patch. Discussed smoking cessation for greater than 3 minutes Hospital course: This is a 57-year-old female with a known past medical history of uncontrolled diabetes mellitus type 2, COPD, hyperlipidemia, hypertension, myocardial infarction, CVA with left-sided paralysis, coronary artery disease with previous cardiac stents, chronic kidney disease stage III, depression and possible bipolar. She also was recently hospitalized with a right heel diabetic ulcer. She's followed at the wound care center and has been on Bactrim. Patient went to see Dr. Chen yesterday family was concerned regarding her change in behavior. Patient has been very aggressive and having violent behavior. She has been aggressive towards her caregivers. She's also been hurting herself on purpose. As far as her left heel wound she has been hitting that purposely against things and breaking the new scab open. Also she has been scratching at herself on the left arm and the left side of her chin. She's brought it into the emergency room for further evaluation and psychiatric evaluation. Patient does have some evidence of dehydration and acute kidney injury. Creatinine has gone up to 1.55. She also has some hypokalemia with a potassium of 6. Repeat potassium is 5.4 and she is receiving Kayexalate. And IV fluids have been started. She is on the Bactrim for the left diabetic heel ulcer. Patient is currently sitting in bed comfortably no signs of agitation. She was actually able to sleep through the night. Family had also mentioned patient now has been having difficulty sleeping and not very much. Patient denies any fever chills or sweats. Denies any nausea or vomiting. Denies any bowel movement changes or urinary symptoms. Denies any chest pain or shortness of breath. On 09/18/2017 patient is alert and oriented she is calm today, family is at bedside and they do not report any episode of anger or aggressive behavior, lower extremity open wound and cellulitis improving gradually patient was seen by Dr. Mendez she is on oral antibiotic and local wound care, patient denies any symptoms at this time. On 09/19/2017 patient is alert and oriented in no distress. patient is calm today and has no complaints, there in no fever orchills, no cough, no nausea or vomiting no abdominal pain and no urinary symptoms. Patient Condition at Discharge: Stable Plan - Discharge Summary New Discharge Prescriptions: Continue Albuterol Inhaler [Ventolin Hfa Inhaler] 2 puff INHALATION RT-Q4H PRN PRN Reason: Shortness Of Breath Famotidine [Pepcid] 20 mg PO BID Aspirin EC [Ecotrin Low Dose] 81 mg PO DAILY Valproic Acid [Depakene] 250 mg PO DAILY Ergocalciferol [Vitamin D2 (DRISDOL)] 50,000 unit PO Q7D Budesonide-Formot 160-4.5 Mcg [Symbicort 160-4.5 Mcg Inhaler] 2 puff INHALATION RT-BID HYDROcodone/APAP 10-325MG [Mcgrew 10-325] 1 tab PO Q6H PRN PRN Reason: Pain Insulin Lispro [humaLOG] 0 units SQ AC-TID Ferrous Sulfate [Iron (65 MG Elemental)] 325 mg PO DAILY DULoxetine HCL [Cymbalta] 60 mg PO DAILY ALPRAZolam [Xanax] 1 mg PO TID Insulin Glargine [Lantus] 20 unit SQ HS Glucagon Emergency Kit 1 mg SQ ONCE PRN PRN Reason: Blood Sugar - Low Vitamin B Complex 1 cap PO DAILY EPINEPHrine (Auto Inject) [Epipen] 0.3 mg IM ONCE PRN PRN Reason: Anaphylaxis Docusate [Colace] 100 mg PO BID Ondansetron [Zofran] 4 mg PO DAILY PRN PRN Reason: Nausea ARIPiprazole [Abilify] 2 mg PO DAILY SILVER sulfADIAZINE Cream [Silvadene 1% Cream] 1 applic TOPICAL DAILY PRN PRN Reason: Rash Metoclopramide [Reglan] 5 mg PO TID Nitroglycerin Sl Tabs [Nitrostat] 0.4 mg SUBLINGUAL Q5M PRN PRN Reason: Chest Pain Nicotine 14Mg/24Hr Patch [Habitrol] 1 patch TRANSDERM DAILY #30 patch Sulfamethox-Tmp 800-160Mg [Bactrim DS 800-160 mg] 1 tab PO Q12HR #28 tab Discharge Medication List Albuterol Inhaler [Ventolin Hfa Inhaler] 2 puff INHALATION RT-Q4H PRN 07/19/15 [ History] Aspirin EC [Ecotrin Low Dose] 81 mg PO DAILY 07/19/15 [History] Famotidine [Pepcid] 20 mg PO BID 07/19/15 [History] Valproic Acid [Depakene] 250 mg PO DAILY 07/19/15 [History] Budesonide-Formot 160-4.5 Mcg [Symbicort 160-4.5 Mcg Inhaler] 2 puff INHALATION RT-BID 03/05/16 [History] Ergocalciferol [Vitamin D2 (DRISDOL)] 50,000 unit PO Q7D 03/05/16 [History] HYDROcodone/APAP 10-325MG [Mcgrew 10-325] 1 tab PO Q6H PRN 10/03/16 [History] DULoxetine HCL [Cymbalta] 60 mg PO DAILY 02/16/17 [History] Ferrous Sulfate [Iron (65 MG Elemental)] 325 mg PO DAILY 02/16/17 [History] Insulin Lispro [humaLOG] 0 units SQ AC-TID 02/16/17 [History] ALPRAZolam [Xanax] 1 mg PO TID 02/19/17 [History] Docusate [Colace] 100 mg PO BID 06/07/17 [History] EPINEPHrine (Auto Inject) [Epipen] 0.3 mg IM ONCE PRN 06/07/17 [History] Glucagon Emergency Kit 1 mg SQ ONCE PRN 06/07/17 [History] Insulin Glargine [Lantus] 20 unit SQ HS 06/07/17 [History] Vitamin B Complex 1 cap PO DAILY 06/07/17 [History] ARIPiprazole [Abilify] 2 mg PO DAILY 09/06/17 [History] Metoclopramide [Reglan] 5 mg PO TID 09/06/17 [History] Nitroglycerin Sl Tabs [Nitrostat] 0.4 mg SUBLINGUAL Q5M PRN 09/06/17 [History] Ondansetron [Zofran] 4 mg PO DAILY PRN 09/06/17 [History] SILVER sulfADIAZINE Cream [Silvadene 1% Cream] 1 applic TOPICAL DAILY PRN [History] Nicotine 14Mg/24Hr Patch [Habitrol] 1 patch TRANSDERM DAILY #30 patch 09/10/17 [ Rx] Sulfamethox-Tmp 800-160Mg [Bactrim DS 800-160 mg] 1 tab PO Q12HR #28 tab [Rx] Follow up Appointment(s)/Referral(s): Sherlyn Chen MD [Primary Care Provider] - 1-2 days
[2017-09-20 12:31] LABS: Glucose,Whole Blood 145 mg/dL (75-99)
[2017-09-20 12:31] LABS: Glucose,Whole Blood 203 mg/dL (75-99)
== END 2017-09-19 14:50 | disposition home or self-care (01) | DRG 683 ==
LOC: EC 16:21 → 5MS5E 17:26 → OBSVTOIN 09-17 14:02
PROVIDERS: ADMIT Internal Medicine; ATTEND Internal Medicine
DX: N17.9 Acute kidney failure, unspecified (principal); L97.429 Non-pressure chronic ulcer of left heel and midfoot with unspecified severity; E11.22 Type 2 diabetes mellitus with diabetic chronic kidney disease; E11.621 Type 2 diabetes mellitus with foot ulcer; I13.0 Hypertensive heart and chronic kidney disease with heart failure and stage 1 through stage 4 chronic kidney disease, or unspecified chronic kidney disease; I69.354 Hemiplegia and hemiparesis following cerebral infarction affecting left non-dominant side; L97.419 Non-pressure chronic ulcer of right heel and midfoot with unspecified severity; I50.9 Heart failure, unspecified; E11.319 Type 2 diabetes mellitus with unspecified diabetic retinopathy without macular edema; Z79.4 Long term (current) use of insulin; N18.3 Chronic kidney disease, stage 3 (moderate); Z79.51 Long term (current) use of inhaled steroids; Z82.49 Family history of ischemic heart disease and other diseases of the circulatory system; Z82.5 Family history of asthma and other chronic lower respiratory diseases; Z83.3 Family history of diabetes mellitus; Z90.710 Acquired absence of both cervix and uterus; Z95.5 Presence of coronary angioplasty implant and graft; J44.9 Chronic obstructive pulmonary disease, unspecified; I25.2 Old myocardial infarction; I25.10 Atherosclerotic heart disease of native coronary artery without angina pectoris; K21.9 Gastro-esophageal reflux disease without esophagitis; E78.5 Hyperlipidemia, unspecified; E86.0 Dehydration; E87.5 Hyperkalemia; F17.200 Nicotine dependence, unspecified, uncomplicated; F32.9 Major depressive disorder, single episode, unspecified; F43.22 Adjustment disorder with anxiety; Z99.3 Dependence on wheelchair; Z88.5 Allergy status to narcotic agent; Z88.0 Allergy status to penicillin; Z88.8 Allergy status to other drugs, medicaments and biological substances; Z88.1 Allergy status to other antibiotic agents; Z91.030 Bee allergy status; Z86.14 Personal history of Methicillin resistant Staphylococcus aureus infection; Z89.421 Acquired absence of other right toe(s); E07.9 Disorder of thyroid, unspecified; Z86.718 Personal history of other venous thrombosis and embolism; Z71.6 Tobacco abuse counseling; S00.81XA Abrasion of other part of head, initial encounter; X83.8XXA Intentional self-harm by other specified means, initial encounter; R45.1 Restlessness and agitation
CPT/HCPCS: 36415; 80053; 80164; 80306; 81003; 82075; 83735; 85025; 87040; 94640; 99284

== ENCOUNTER 2018-12-28 17:30 | Observation (INO) | payer OTHER ==
--- NOTE | 2018-12-28 18:30 | XR ---
EXAMINATION: XR chest 2V DATE AND TIME: 12/28/2018 6:17 PM CLINICAL INDICATION: PHH; Chest Pain TECHNIQUE: Departmental protocol COMPARISON: 06/07/2017 FINDINGS: The lungs are clear. The pleural spaces are negative. The cardiac silhouette is not enlarged. Evidence of right coronary calcification versus stent noted; the remainder of the mediastinal silhouette is unremarkable. The skeletal structures and soft tissues are negative for acute findings. Remodeled left posterior T9 and T10 is noted, consistent with remote healed fractures. IMPRESSION: NO ACUTE PROCESS.
--- NOTE | 2018-12-28 18:38 | ED ---
Chest Pain HPI - General Chief Complaint: Chest Pain Stated Complaint: CHEST PAIN Time Seen by Provider: 12/28/18 17:45 Source: patient, EMS Mode of arrival: EMS Limitations: no limitations - History of Present Illness Initial Comments: The patient is a 58-year-old female who presents to the emergency department with reported chest pain. She states that it started approximately 1 hour prior to arrival. She was sitting in her chair when she had left-sided substernal chest pain that did not radiate. She admits to a significant cardiac history. She does have 6 stents in her heart. States that the last was placed was 6 years ago. She is unsure of her last stress test or echo. She does see Dr. Luna in office. She grades the pain as a 7 out of 10. EMS was called. They did provide her with 325 mg of aspirin and 1 mg of nitro. She reports that it did not change her pain. She denies ripping or tearing sensation to her back. She denies any back pain. No ripping or tearing sensation. Does admit to slight nausea. No diaphoresis. Denies a cough, hemoptysis or fevers. Denies any abdominal pain or changes in her bowel or bladder habits. She does admit to a history of DVT. She is not currently on any blood thinners. Denies shortness of breath. There are no other alleviating, precipitating or modifying factors. - Related Data Home Medications Medication Instructions Recorded Confirmed Albuterol Inhaler [Ventolin Hfa 2 puff INHALATION RT-Q4H PRN 07/19/15 12/28/18 Inhaler] Aspirin EC [Ecotrin Low Dose] 81 mg PO DAILY 07/19/15 12/28/18 Famotidine [Pepcid] 20 mg PO DAILY 07/19/15 12/28/18 Valproic Acid [Depakene] 250 mg PO DAILY 07/19/15 12/28/18 Ergocalciferol [Vitamin D2 50,000 unit PO Q7D 03/05/16 12/28/18 (DRISDOL)] HYDROcodone/APAP 10-325MG [[place] 1 tab PO Q6H PRN 10/03/16 12/28/18 10-325] DULoxetine HCL [Cymbalta] 60 mg PO DAILY 02/16/17 12/28/18 Ferrous Sulfate [Iron (65 MG 325 mg PO DAILY 02/16/17 12/28/18 Elemental)] ALPRAZolam [Xanax] 1 mg PO TID PRN 02/19/17 12/28/18 Vitamin B Complex 1 cap PO DAILY 06/07/17 12/28/18 Ondansetron [Zofran] 4 mg PO DAILY PRN 09/06/17 12/28/18 Atorvastatin [Lipitor] 20 mg PO DAILY 12/28/18 12/28/18 QUEtiapine FUMARATE [SEROquel] 25 mg PO BID 12/28/18 12/28/18 QUEtiapine [SEROquel] 100 mg PO HS 12/28/18 12/28/18 Previous Rx's Medication Instructions Recorded Insulin Glargine [Lantus] 22 unit SQ HS #0 12/29/18 Insulin Lispro [humaLOG] See Protocol SQ AC-TID #1 12/29/18 Allergies Allergy/AdvReac Type Severity Reaction Status Date / Time Barbiturates Allergy Rash/Hives Verified 12/28/18 17:53 cephalexin monohydrate Allergy Rash/Hives Verified 12/28/18 17:53 [From Keflex] morphine Allergy Rash/Hives Verified 12/28/18 17:53 Penicillins Allergy Rash/Hives Verified 12/28/18 17:53 phenobarbital Allergy Swelling Verified 12/28/18 17:53 venom-honey bee Allergy Swelling Verified 12/28/18 17:53 [bee venom (honey bee)] amlodipine besylate AdvReac Vomiting Verified 12/28/18 17:53 [From Norvasc] Review of Systems ROS Statement: Those systems with pertinent positive or pertinent negative responses have been documented in the HPI. ROS Other: All systems not noted in ROS Statement are negative. EKG Findings - EKG Comments: EKG Findings:: EKG demonstrates a normal sinus rhythm with a ventricular rate of 74. DE interval 144. QRS 84. QTC 446. 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 [place] 2012. DVT RT AXILLA. RENAL FAILURE. LOW THYROID, PERIPHERAL NEUROPATHY HANDS & FEET. ANEMIA. HX OF DKA. USES W/C. CONSTIPATION, ESOPHAGITIS. EPIGLOTITIS. HEADACHES SINCE CVA. RETINOPATHY SHIVA EYES. HX RT TOE INFECTION- GANGRENE, HAD AMP."i need eye sx-i have bleeding behind the eyes" Last Myocardial Infarction Date:: 2011 History of Any Multi-Drug Resistant Organisms: MRSA Date of last positivie culture/infection: 09/06/17 MDRO Source:: Right Foot Past Surgical History: Appendectomy, Section, Cholecystectomy, Heart Catheterization With Stent, Hysterectomy, Orthopedic Surgery Additional Past Surgical History / Comment(s): Amputation Rt 2ND Toe. C-S X3. EGD. Bronchoscopy. RT Arm Port Placed FOR AB RX; Removed. 6 CARDIAC STENTS. left shoulder bone removed Past Anesthesia/Blood Transfusion Reactions: No Reported Reaction Additional Past Anesthesia/Blood Transfusion Reaction / Comment(s): HX OF BLOOD TRANSFUSION- NO REACTION Date of Last Stent Placement:: July 2012 Past Psychological History: Anxiety, Bipolar, Depression Smoking Status: Current every day smoker Past Alcohol Use History: None Reported Past Drug Use History: None Reported - Past Family History Father Family Medical History: Unable to Obtain, Coronary Artery Disease (CAD), Diabetes Mellitus Mother Family Medical History: COPD General Exam Limitations: physical limitation General appearance: alert, in no apparent distress Head exam: Present: atraumatic, normocephalic, normal inspection Eye exam: Present: normal appearance, PERRL, EOMI. Absent: scleral icterus, conjunctival injection, periorbital swelling ENT exam: Present: normal exam, mucous membranes moist Neck exam: Present: normal inspection. Absent: tenderness, meningismus, lymphadenopathy Respiratory exam: Present: normal lung sounds bilaterally. Absent: respiratory distress, wheezes, rales, rhonchi, stridor Cardiovascular Exam: Present: regular rate, normal rhythm, normal heart sounds. Absent: systolic murmur, diastolic murmur, rubs, gallop, clicks GI/Abdominal exam: Present: soft, normal bowel sounds. Absent: distended, tenderness, guarding, rebound, rigid Extremities exam: Present: normal inspection, full ROM, normal capillary refill. Absent: tenderness, pedal edema, joint swelling, calf tenderness Back exam: Present: normal inspection Neurological exam: Present: alert, oriented X3, CN II-XII intact Psychiatric exam: Present: normal affect, normal mood Skin exam: Present: warm, dry, intact, normal color. Absent: rash Course Vital Signs 12/28/18 12/28/18 12/28/18 17:41 18:00 19:00 Temperature 98.3 F Pulse Rate 74 89 85 Respiratory 20 18 18 Rate Blood Pressure 104/63 121/63 142/99 O2 Sat by Pulse 96 98 99 Oximetry 12/28/18 12/28/18 20:16 21:19 Temperature Pulse Rate 77 84 Respiratory 20 20 Rate Blood Pressure 134/98 161/91 O2 Sat by Pulse 98 94 L Oximetry Chest Pain MDM - Differential Diagnosis AMI, ACS, PE, Pericarditis, Pneumonia, Pleurisy-Other, Pneumothorax/Tension - MDM Upon arrival the patient was placed into room 7. A thorough history and physical exam was performed. The patient was hooked up to continuous pulse ox and cardiac monitoring. A 12-lead EKG was performed on the patient which demonstrated a normal sinus rhythm. Laboratory studies were conducted and the patient was sent for a chest x-ray. Upon return of the results, they are discussed with the patient. She was hypoglycemia and given juice to drink. Her first troponin is negative. I did recommend overnight observation for telemetry monitoring and to continue to trend the patient's troponins. I also recommended a cardiology consult. Called and discussed case with Dr. Chen and he did accept admission for the patient. Bridging orders were placed. We will trend the patients glucose level. The patient was then transported to floor in stable condition Disposition Clinical Impression: Chest pain, Hypoglycemia Disposition: ADMITTED IP TO THIS [facility] Condition: Stable Is patient prescribed a controlled substance at d/c from ED?: No Decision to Admit Reason: Admit from EC Decision Date: 12/28/18 Decision Time: 20:35
[2018-12-28 18:47] LABS: Glucose,Whole Blood 58 mg/dL (75-99)
[2018-12-28 19:04] LABS: HGB 10.1 gm/dL (11.4-16.0); MCH 30.7 pg (25.0-35.0); MCHC 31.5 g/dL (31.0-37.0); MCV 97.6 fL (80.0-100.0); RBC 3.28 m/uL (3.80-5.40); RDW 13.3 % (11.5-15.5); WBC 5.2 k/uL (3.8-10.6)
[2018-12-28 19:05] LABS: Basophils % (A) 0 %; Eosinophils # (A) 0.1 k/uL (0-0.7); Eosinophils % (A) 2 %; Lymphocytes # (A) 2.4 k/uL (1.0-4.8); Lymphocytes % (A) 46 %; Mean Platelet Volume 8.9; Monocytes # (A) 0.3 k/uL (0-1.0); Monocytes % (A) 6 %; Neutrophils # (A) 2.3 k/uL (1.3-7.7); Neutrophils % (A) 44 %; Platelet Count 161 k/uL (150-450)
[2018-12-28 19:08] LABS: Albumin 3.8 g/dL (3.5-5.0); Calcium 9.1 mg/dL (8.4-10.2); Magnesium 2.3 mg/dL (1.6-2.3); Potassium 4.9 mmol/L (3.5-5.1); Total Bilirubin 0.2 mg/dL (0.2-1.3); Total Protein 6.9 g/dL (6.3-8.2)
[2018-12-28 19:12] LABS: Glucose,Whole Blood 104 mg/dL (75-99)
[2018-12-28 19:32] LABS: INR 0.9 (<1.2); Prothrombin Time 9.6 sec (9.0-12.0)
[2018-12-28 19:38] LABS: D-Dimer 0.5 mg/L FEU (<0.60); Partial Thromboplastin Time 20.1 sec (22.0-30.0)
[2018-12-28] MEDS ORDERED: NALOXONE 0.4 MG/ML 1 ML VIAL IV PRN (20:35)
[2018-12-28] MEDS ORDERED: ALPRAZolam 1 MG TAB PO PRN (20:38)
[2018-12-28] MEDS ORDERED: ALBUTEROL NEBULIZED 2.5 MG/3 ML INHALATION PRN (20:38)
[2018-12-28] MEDS ORDERED: HYDROcodone/APAP 10-325MG 1 EACH TAB PO PRN (20:38)
[2018-12-28] MEDS ORDERED: QUEtiapine 100 MG TAB PO SCH (21:00)
[2018-12-28] MEDS ORDERED: INSULIN DETEMIR (LEVEMIR) 100 UNIT/ML SYR SQ SCH (21:00)
[2018-12-28 22:26] LABS: Glucose,Whole Blood 140 mg/dL (75-99)
[2018-12-28] MEDS: ATORVASTATIN 20 MG TAB PO SCH (22:28)
[2018-12-29 06:40] LABS: Glucose,Whole Blood 267 mg/dL (75-99)
[2018-12-29 07:48] LABS: Basophils % (A) 1 %; Eosinophils # (A) 0.1 k/uL (0-0.7); Eosinophils % (A) 2 %; HCT 31.9 % (34.0-46.0); HGB 10.4 gm/dL (11.4-16.0); Lymphocytes # (A) 1.6 k/uL (1.0-4.8); Lymphocytes % (A) 48 %; MCH 31.1 pg (25.0-35.0); MCHC 32.5 g/dL (31.0-37.0); MCV 95.9 fL (80.0-100.0); Mean Platelet Volume 8.2; Monocytes # (A) 0.2 k/uL (0-1.0); Monocytes % (A) 5 %; Neutrophils # (A) 1.4 k/uL (1.3-7.7); Neutrophils % (A) 41 %; Platelet Count 159 k/uL (150-450); RBC 3.33 m/uL (3.80-5.40); RDW 13.2 % (11.5-15.5); WBC 3.3 k/uL (3.8-10.6)
[2018-12-29 08:01] VITALS: RESP 18
[2018-12-29 08:11] LABS: Calcium 8.7 mg/dL (8.4-10.2); Potassium 4.9 mmol/L (3.5-5.1)
[2018-12-29] MEDS ORDERED: VALPROIC ACID ORAL SOLN 250 MG/5 ML CUP PO SCH (09:00)
[2018-12-29] MEDS ORDERED: ASPIRIN 81 MG PO SCH (09:00)
[2018-12-29] MEDS ORDERED: DULoxetine HCL 60 MG CAPSULE.DR PO SCH (09:00)
[2018-12-29] MEDS ORDERED: FAMOTIDINE 20 MG TAB PO SCH (09:00)
--- NOTE | 2018-12-29 09:49 | P.HPIM ---
History of Present Illness H&P Date: 12/29/18 This is a 58-year-old female patient who presents with complaints of chest pain. Patient reports that the pain started abruptly and lasted approximately 1 hour. Patient reports that it was left-sided substernal chest pain that did not radiate. Patient does report associated nausea. Patient does have a significant cardiac history for 6 stents in which she does follow with Cardilology. Additional medical history includes heart failure, COPD, CVA, diabetes mellitus Coumadin DVT, I disorder, GERD, hyperlipidemia, hypertension, myocardial infarction, hypothyroidism, bipolar, anxiety and depression. Patient also is a current every day smoker. Patient also hyperglycemic upon arrival blood sugar 45. Chest x-ray completed showing no acute process. EKG showing normal sinus rhythm and normal EKG. Troponins negative. Cardiology service is consulted. 2-D echo has been ordered. At this time patient denies chest pain or shortness breath. Patient denies nausea vomiting or diarrhea. Patient denies any urinary burning or frequency. 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 [place] 2011. DVT RT AXILLA. RENAL FAILURE. LOW THYROID, PERIPHERAL NEUROPATHY HANDS & FEET. ANEMIA. HX OF DKA. USES W/C. CONSTIPATION, ESOPHAGITIS. EPIGLOTITIS. HEADACHES SINCE CVA. RETINOPATHY SHIVA EYES. HX RT TOE INFECTION- GANGRENE, HAD AMP."i need eye sx-i have bleeding behind the eyes" Last Myocardial Infarction Date:: 2011 History of Any Multi-Drug Resistant Organisms: MRSA Date of last positivie culture/infection: 09/06/17 MDRO Source:: Right Foot Past Surgical History: Appendectomy, Section, Cholecystectomy, Heart Catheterization With Stent, Hysterectomy, Orthopedic Surgery Additional Past Surgical History / Comment(s): Amputation Rt 2ND Toe. C-S X3. EGD. Bronchoscopy. RT Arm Port Placed FOR AB RX; Removed. 6 CARDIAC STENTS. left shoulder bone removed Past Anesthesia/Blood Transfusion Reactions: No Reported Reaction Additional Past Anesthesia/Blood Transfusion Reaction / Comment(s): HX OF BLOOD TRANSFUSION- NO REACTION Date of Last Stent Placement:: July 2012 Past Psychological History: Anxiety, Bipolar, Depression Smoking Status: Current every day smoker Past Alcohol Use History: None Reported Past Drug Use History: None Reported - Past Family History Father Family Medical History: Unable to Obtain, Coronary Artery Disease (CAD), Diabetes Mellitus Mother Family Medical History: COPD Medications and Allergies Home Medications Medication Instructions Recorded Confirmed Type Albuterol Inhaler [Ventolin Hfa 2 puff INHALATION RT-Q4H PRN 07/19/15 12/28/18 History Inhaler] Aspirin EC [Ecotrin Low Dose] 81 mg PO DAILY 07/19/15 12/28/18 History Famotidine [Pepcid] 20 mg PO DAILY 07/19/15 12/28/18 History Valproic Acid [Depakene] 250 mg PO DAILY 07/19/15 12/28/18 History Ergocalciferol [Vitamin D2 50,000 unit PO Q7D 03/05/16 12/28/18 History (ALEXSANDRA)] HYDROcodone/APAP 10-325MG [[place] 1 tab PO Q6H PRN 10/03/16 12/28/18 History 10-325] DULoxetine HCL [Cymbalta] 60 mg PO DAILY 02/16/17 12/28/18 History Ferrous Sulfate [Iron (65 MG 325 mg PO DAILY 02/16/17 12/28/18 History Elemental)] Insulin Lispro [humaLOG] 6 units SQ AC-TID 02/16/17 12/28/18 History ALPRAZolam [Xanax] 1 mg PO TID PRN 02/19/17 12/28/18 History Insulin Glargine [Lantus] 25 unit SQ HS 06/07/17 12/28/18 History Vitamin B Complex 1 cap PO DAILY 06/07/17 12/28/18 History Ondansetron [Zofran] 4 mg PO DAILY PRN 09/06/17 12/28/18 History Atorvastatin [Lipitor] 20 mg PO DAILY 12/28/18 12/28/18 History QUEtiapine FUMARATE [SEROquel] 25 mg PO BID 12/28/18 12/28/18 History QUEtiapine [SEROquel] 100 mg PO HS 12/28/18 12/28/18 History Allergies Allergy/AdvReac Type Severity Reaction Status Date / Time Barbiturates Allergy Rash/Hives Verified 12/28/18 17:53 cephalexin monohydrate Allergy Rash/Hives Verified 12/28/18 17:53 [From Keflex] morphine Allergy Rash/Hives Verified 12/28/18 17:53 Penicillins Allergy Rash/Hives Verified 12/28/18 17:53 phenobarbital Allergy Swelling Verified 12/28/18 17:53 venom-honey bee Allergy Swelling Verified 12/28/18 17:53 [bee venom (honey bee)] amlodipine besylate AdvReac Vomiting Verified 12/28/18 17:53 [From Norvasc] Physical Exam Vitals: Vital Signs Temp Pulse Pulse Resp BP BP Pulse Ox 12/29/18 08:00 97.3 F L 73 18 92/56 97 12/29/18 04:00 97.5 F L 68 16 112/66 95 12/29/18 00:00 97.9 F 72 16 144/75 97 12/28/18 22:01 98.6 F 94 18 145/85 98 12/28/18 21:19 84 20 161/91 94 L 12/28/18 20:16 77 20 134/98 98 12/28/18 19:00 85 18 142/99 99 12/28/18 18:00 89 18 121/63 98 12/28/18 17:41 98.3 F 74 20 104/63 96 Intake and Output 12/28/18 12/29/18 12/29/18 22:59 06:59 14:59 Intake Total 510 Balance 510 Intake: Amount of Fluid Infused ( 10 ml) Oral 500 Other: Voiding Method Bedside Commode Bedside Commode # Voids 2 1 Weight 74.843 kg Head normocephalic Neck supple Lungs clear to auscultation bilaterally no wheezing or crackles Heart regular rate and rhythm S1-S2, no rub or gallop Abdomen is soft nontender nondistended positive bowel sounds no hepatosplenomegaly Extremities no edema Neuro alert and orientated to 3. Slow to respond Results CBC & Chem 7: 12/29/18 07:11 12/29/18 07:11 Labs: Abnormal Lab Results - Last 24 Hours (Table) 12/28/18 12/28/18 12/28/18 Range/Units 18:37 18:37 18:37 WBC (3.8-10.6) k/uL RBC 3.28 L (3.80-5.40) m/uL Hgb 10.1 L (11.4-16.0) gm/dL Hct 32.0 L (34.0-46.0) % APTT 20.1 L (22.0-30.0) sec Chloride 109 H (98-107) mmol/L BUN 33 H (7-17) mg/dL Glucose 45 L* (74-99) mg/dL POC Glucose (mg/dL) (75-99) mg/dL 12/28/18 12/28/18 12/28/18 Range/Units 18:45 19:05 22:24 WBC (3.8-10.6) k/uL RBC (3.80-5.40) m/uL Hgb (11.4-16.0) gm/dL Hct (34.0-46.0) % APTT (22.0-30.0) sec Chloride (98-107) mmol/L BUN (7-17) mg/dL Glucose (74-99) mg/dL POC Glucose (mg/dL) 58 L 104 H 140 H (75-99) mg/dL 12/29/18 12/29/18 12/29/18 Range/Units 06:29 07:11 07:11 WBC 3.3 L (3.8-10.6) k/uL RBC 3.33 L (3.80-5.40) m/uL Hgb 10.4 L (11.4-16.0) gm/dL Hct 31.9 L (34.0-46.0) % APTT (22.0-30.0) sec Chloride (98-107) mmol/L BUN 29 H (7-17) mg/dL Glucose 249 H (74-99) mg/dL POC Glucose (mg/dL) 267 H (75-99) mg/dL Thrombosis Risk Factor Assmnt - Choose All That Apply Any of the Below Risk Factors Present?: Yes Each Risk Factor Represents 3 Points: History of DVT/PE Thrombosis Risk Factor Assessment Total Risk Factor Score: 3 Thrombosis Risk Factor Assessment Level: Moderate Risk Assessment and Plan Assessment: 1. Chest pain. Troponins negative times Three. Chest x-ray negative. Cardiology services have been consulted 2-D echo has been ordered 2. Hypoglycemia. Blood sugar 45 upon arrival. Resolved 3. History of diabetes mellitus type 2 4. History of coronary artery disease with multiple stents. Patient is followed cardiology services 5. History of COPD 6. 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 History of DVT 8. History of eye disorder 9. History of GERD 10. History of hypothyroidism 11. History of nicotine dependence. Patient educated greater than 3 minutes on smoking cessation. Nicotine patch ordered 12. History of bipolar 13. History of anxiety Time with Patient: Greater than 30 (Greater than 60% of the total time spent in counseling and coordination of care. I performed an examination of the patient and discussed their management with the Nurse Practitioner. I have reviewed the Nurse Practitioner's notes and agree with the documented findings and plan of care)
[2018-12-29] MEDS: INSULIN ASPART (NovoLOG) 100 UNIT/ML VIAL SQ SCH ×2 (10:16→12:34)
--- NOTE | 2018-12-29 10:18 | P.CRDCN ---
History of Present Illness History of present illness: This is a pleasant 58-year-old female past medical history significant for inferior wall UT requiring sent to the [facility] in 2017, diabetes mellitus, hypertension, dyslipidemia, CVA, COPD and neuropathy. She has seen Dr. Erickson in the office, has not followed up since 04/2017. We have been asked to see her in consultation secondary to chest pain. She presented to ED last evening after having an episode of chest discomfort in the left precordial region all sitting at the dining room table the pain radiated through to the back. The pain was persistent for approximately one hour. She denies any associated shortness of breath, dizziness, nausea, vomiting or diaphoresis. She is somewhat lethargic and seems to be a poor historian. She is seen and examined resting comfortably laying flat in bed in no acute distress. She denies active chest discomfort at this time. EKG reveals sinus mechanism with no acute ST or T wave abnormalities noted. Chest x-ray is negative for an acute cardiopulmonary process. Laboratory data reviewed, WBC 5.2, hemoglobin 10.1, platelets 161, d-dimer 0.5, proBNP 85, cardiac enzymes negative 3, sodium 143, potassium 4.9, creatinine 0.97, glucose on admission 45. Current cardiac medications include aspirin 81 mg daily, atorvastatin 20 mg d aily. Most recent echocardiogram obtained in March 2017 reveals preserved LV systolic function with ejection fraction 65-70%. At the time of my exam: CONSTITUTIONAL: Denies fever. Denies chills. EYES: Denies blurred vision. Denies vision changes. Denies eye pain. EARS, NOSE, MOUTH & THROAT: Denies headache. Denies sore throat. Denies ear pain. CARDIOVASCULAR: Denies chest pain. Denies shortness of breath. Denies orthopnea. Denies PND. Denies palpitations. RESPIRATORY: Denies cough. GASTROINTESTINAL: Denies abdominal pain. Denies diarrhea. Denies constipation. Denies nausea. Denies vomiting. MUSCULOSKELETAL: Denies myalgias. INTEGUMENTARY: Denies pruitis. Denies rash. NEUROLOGIC: Denies numbness. Denies tingling. Denies weakness. PSYCHIATRIC: Denies anxiety. Denies depression. ENDOCRINE: Denies fatigue. Denies weight change. Denies polydipsia. Denies polyurina. GENITOURINARY: Denies burning, hematuria or urgency with micturation. HEMATOLOGIC: Denies history of anemia. Denies bleeding. Blood pressure 112/66 heart rate 68 afebrile maintaining oxygen saturation on room air GENERAL: This is a 58-year-old female in no apparent distress at the time of my examination. HEENT: Head is atraumatic, normocephalic. Pupils are equal, round. Sclerae anicteric. Conjunctivae are clear. Mucous membranes of the mouth are moist. Neck is supple. There is no jugular venous distention. No carotid bruit is heard. LUNGS: Clear to auscultation no wheezes, rales or rhonchi. No chest wall tenderness is noted on palpation or with deep breathing. HEART: Regular rate and rhythm without murmurs, rubs or gallops. S1 and S2 heard. ABDOMEN: Soft, nontender. Bowel sounds are heard. No organomegaly noted. EXTREMITIES: No evidence of peripheral edema and no calf tenderness noted. VASCULAR: Radial and dorsalis pedis pulses palpated, no evidence of clubbing. NEUROLOGIC: Patient is awake, alert and oriented. ASSESSMENT Chest pain, atypical for angina. An acute coronary event has been ruled out. History of CAD s/p stent placement in the setting of an acute inferior wall myocardial infarction 2006 Dyslipidemia Diabetes mellitus CVA COPD PLAN An acute coronary event has been ruled out. No EKG evidence of ischemia and negative cardiac enzymes. Obtain 2D echocardiogram and doppler study to assess cardiac structure and function. Symptoms are atypical for angina, no further cardiac work-up as an inpatient. Follow up with Dr. Erickson upon discharge. She is quite lethargic and slow to respond, possibly related to hypoglycemia noted on admission or recent norco administration. Thank you kindly for this consultation. Nurse Practitioner note has been reviewed, I agree with a documented findings and plan of care. Patient was seen and examined. 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 UT 2011. DVT RT AXILLA. RENAL FAILURE. LOW THYROID, PERIPHERAL NEUROPATHY HANDS & FEET. ANEMIA. HX OF DKA. USES W/C. CONSTIPATION, ESOPHAGITIS. EPIGLOTITIS. HEADACHES SINCE CVA. RETINOPATHY SHIVA EYES. HX RT TOE INFECTION- GANGRENE, HAD AMP."i need eye sx-i have bleeding behind the eyes" Last Myocardial Infarction Date:: 2011 History of Any Multi-Drug Resistant Organisms: MRSA Date of last positivie culture/infection: 09/06/17 MDRO Source:: Right Foot Past Surgical History: Appendectomy, Section, Cholecystectomy, Heart Catheterization With Stent, Hysterectomy, Orthopedic Surgery Additional Past Surgical History / Comment(s): Amputation Rt 2ND Toe. C-S X3. EGD. Bronchoscopy. RT Arm Port Placed FOR AB RX; Removed. 6 CARDIAC STENTS. left shoulder bone removed Past Anesthesia/Blood Transfusion Reactions: No Reported Reaction Additional Past Anesthesia/Blood Transfusion Reaction / Comment(s): HX OF BLOOD TRANSFUSION- NO REACTION Date of Last Stent Placement:: July 2012 Past Psychological History: Anxiety, Bipolar, Depression Smoking Status: Current every day smoker Past Alcohol Use History: None Reported Past Drug Use History: None Reported - Past Family History Father Family Medical History: Unable to Obtain, Coronary Artery Disease (CAD), Diabetes Mellitus Mother Family Medical History: COPD Medications and Allergies Home Medications Medication Instructions Recorded Confirmed Type Albuterol Inhaler [Ventolin Hfa 2 puff INHALATION RT-Q4H PRN 07/19/15 12/28/18 History Inhaler] Aspirin EC [Ecotrin Low Dose] 81 mg PO DAILY 07/19/15 12/28/18 History Famotidine [Pepcid] 20 mg PO DAILY 07/19/15 12/28/18 History Valproic Acid [Depakene] 250 mg PO DAILY 07/19/15 12/28/18 History Ergocalciferol [Vitamin D2 50,000 unit PO Q7D 03/05/16 12/28/18 History (DRISDOL)] HYDROcodone/APAP 10-325MG [[place] 1 tab PO Q6H PRN 10/03/16 12/28/18 History 10-325] DULoxetine HCL [Cymbalta] 60 mg PO DAILY 02/16/17 12/28/18 History Ferrous Sulfate [Iron (65 MG 325 mg PO DAILY 02/16/17 12/28/18 History Elemental)] Insulin Lispro [humaLOG] 6 units SQ AC-TID 02/16/17 12/28/18 History ALPRAZolam [Xanax] 1 mg PO TID PRN 02/19/17 12/28/18 History Insulin Glargine [Lantus] 25 unit SQ HS 06/07/17 12/28/18 History Vitamin B Complex 1 cap PO DAILY 06/07/17 12/28/18 History Ondansetron [Zofran] 4 mg PO DAILY PRN 09/06/17 12/28/18 History Atorvastatin [Lipitor] 20 mg PO DAILY 12/28/18 12/28/18 History QUEtiapine FUMARATE [SEROquel] 25 mg PO BID 12/28/18 12/28/18 History QUEtiapine [SEROquel] 100 mg PO HS 12/28/18 12/28/18 History Allergies Allergy/AdvReac Type Severity Reaction Status Date / Time Barbiturates Allergy Rash/Hives Verified 12/28/18 17:53 cephalexin monohydrate Allergy Rash/Hives Verified 12/28/18 17:53 [From Keflex] morphine Allergy Rash/Hives Verified 12/28/18 17:53 Penicillins Allergy Rash/Hives Verified 12/28/18 17:53 phenobarbital Allergy Swelling Verified 12/28/18 17:53 venom-honey bee Allergy Swelling Verified 12/28/18 17:53 [bee venom (honey bee)] amlodipine besylate AdvReac Vomiting Verified 12/28/18 17:53 [From Norvasc] Physical Exam Vitals: Vital Signs Temp Pulse Pulse Resp BP BP Pulse Ox 12/29/18 04:00 97.5 F L 68 16 112/66 95 12/29/18 00:00 97.9 F 72 16 144/75 97 12/28/18 22:01 98.6 F 94 18 145/85 98 12/28/18 21:19 84 20 161/91 94 L 12/28/18 20:16 77 20 134/98 98 12/28/18 19:00 85 18 142/99 99 12/28/18 18:00 89 18 121/63 98 12/28/18 17:41 98.3 F 74 20 104/63 96 Intake and Output 12/28/18 12/29/18 12/29/18 22:59 06:59 14:59 Intake Total 510 Balance 510 Intake: Amount of Fluid Infused ( 10 ml) Oral 500 Other: Voiding Method Bedside Commode # Voids 2 1 Weight 74.843 kg Results 12/29/18 07:11 12/29/18 07:11 Cardiac Enzymes 12/28/18 12/28/18 12/29/18 Range/Units 18:37 18:37 00:15 AST 27 (14-36) U/L Troponin I <0.012 <0.012 (0.000-0.034) ng/mL Coagulation 12/28/18 Range/Units 18:37 PT 9.6 (9.0-12.0) sec APTT 20.1 L (22.0-30.0) sec CBC 12/28/18 12/29/18 Range/Units 18:37 07:11 WBC 5.2 3.3 L (3.8-10.6) k/uL RBC 3.28 L 3.33 L (3.80-5.40) m/uL Hgb 10.1 L 10.4 L (11.4-16.0) gm/dL Hct 32.0 L 31.9 L (34.0-46.0) % Plt Count 161 159 (150-450) k/uL Comprehensive Metabolic Panel 12/28/18 Range/Units 18:37 Sodium 143 (137-145) mmol/L Potassium 4.9 (3.5-5.1) mmol/L Chloride 109 H (98-107) mmol/L Carbon Dioxide 26 (22-30) mmol/L BUN 33 H (7-17) mg/dL Creatinine 0.97 (0.52-1.04) mg/dL Glucose 45 L* (74-99) mg/dL Calcium 9.1 (8.4-10.2) mg/dL AST 27 (14-36) U/L ALT 27 (9-52) U/L Alkaline Phosphatase 60 (38-126) U/L Total Protein 6.9 (6.3-8.2) g/dL Albumin 3.8 (3.5-5.0) g/dL Current Medications Generic Name Dose Route Start Last Admin Trade Name Freq PRN Reason Stop Dose Admin Hydrocodone Bitart/Acetaminophen 1 each 12/28/18 20:38 12/28/18 22:26 [place] 10 PO 1 each Q6H PRN Administration Pain Albuterol Sulfate 2.5 mg 12/28/18 20:38 Ventolin Nebulized INHALATION RT-Q4H PRN Shortness Of Breath Alprazolam 1 mg 12/28/18 20:38 12/28/18 22:26 Xanax PO 1 mg TID PRN Administration Anxiety Aspirin 81 mg 12/29/18 09:00 Aspirin PO DAILY [facility] Atorvastatin Calcium 20 mg 12/28/18 20:45 12/28/18 22:28 Lipitor PO 20 mg DAILY HUMAIRA Administration Duloxetine HCl 60 mg 12/29/18 09:00 Cymbalta PO DAILY HUMAIRA Famotidine 20 mg 12/29/18 09:00 Pepcid PO DAILY HUMAIRA Insulin Aspart 0 unit 12/29/18 07:30 Novolog SQ AC-TID [facility] Protocol Insulin Detemir 25 unit 12/28/18 21:00 12/28/18 22:31 Levemir SQ Not Given HS HUMAIRA Naloxone HCl 0.2 mg 12/28/18 20:35 Narcan IV Q2M PRN Opioid Reversal Quetiapine Fumarate 100 mg 12/28/18 21:00 12/28/18 22:26 Seroquel PO 100 mg HS HUMAIRA Administration Valproic Acid 250 mg 12/29/18 09:00 Depakene Syrup PO DAILY [facility] Intake and Output 12/28/18 12/29/18 12/29/18 22:59 06:59 14:59 Intake Total 510 Balance 510 Intake: Amount of Fluid Infused ( 10 ml) Oral 500 Other: Voiding Method Bedside Commode # Voids 2 1 Weight 74.843 kg 12/29/18 07:11 12/28/18 18:37
[2018-12-29] MEDS: ATORVASTATIN 20 MG TAB PO SCH (10:26)
--- NOTE | 2018-12-29 11:22 | ECHOF ---
Referral Reason:chest pain, CAD MEASUREMENTS -------- HEIGHT: 157.5 cm WEIGHT: 56.7 kg BP: RVIDd: 2.3 cm (< 3.3) IVSd: 1.1 cm (0.6 - 1.1) LVIDd: 4.1 cm (3.9 - 5.3) LVPWd: 1.0 cm (0.6 - 1.1) IVSs: 1.5 cm LVIDs: 2.2 cm LVPWs: 1.6 cm LA Diam: 3.0 cm (2.7 - 3.8) LAESV Index (A-L): 13.40 ml/m Ao Diam: 3.0 cm (2.0 - 3.7) AV Cusp: 1.7 cm (1.5 - 2.6) MV EXCURSION: 12.690 mm (> 18.000) MV EF SLOPE: 95 mm/s (70 - 150) EPSS: 0.4 cm MV E Kosta: 0.76 m/s MV DecT: 234 ms MV A [place]: 0.79 m/s MV E/A Ratio: 0.96 RAP: 5.00 mmHg RVSP: 27.65 mmHg FINDINGS -------- Sinus rhythm. This was a technically adequate study. The left ventricular size is normal. There is borderline concentric left ventricular hypertrophy. Overall left ventricular systolic function is normal with, an EF between 60 - 65 %. The right ventricle is normal in size. Normal LA size by volume 22+/-6 ml/m2. The right atrium is normal in size. Interatrial and interventricular septum intact. The aortic valve is trileaflet and appears structurally normal. The mitral valve is normal. Mild tricuspid regurgitation present. Right ventricular systolic pressure is normal at < 35 mmHg. Trace/mild (physiologic) pulmonic regurgitation. The aortic root size is normal. Normal inferior vena cava with normal inspiratory collapse consistent with estimated right atrial pre ssure of 5 mmHg. There is no pericardial effusion. CONCLUSIONS -------- 1. Sinus rhythm. 2. This was a technically adequate study. 3. The left ventricular size is normal. 4. There is borderline concentric left ventricular hypertrophy. 5. Overall left ventricular systolic function is normal with, an EF between 60 - 65 %. 6. The right ventricle is normal in size. 7. Normal LA size by volume 22+/-6 ml/m2. 8. The right atrium is normal in size. 9. Interatrial and interventricular septum intact. 10. The aortic valve is trileaflet and appears structurally normal. 11. The mitral valve is normal. 12. Mild tricuspid regurgitation present. 13. Right ventricular systolic pressure is normal at < 35 mmHg. 14. Trace/mild (physiologic) pulmonic regurgitation. 15. The aortic root size is normal. 16. Normal inferior vena cava with normal inspiratory collapse consistent with estimated right atrial pressure of 5 mmHg. 17. There is no pericardial effusion. ORTHOPEDIC DESIGNER: Sujata Sutherland RDCS
[2018-12-29 11:33] VITALS: BP 154/84; PULSE 63; TEMP 97.5
[2018-12-29 11:45] LABS: Glucose,Whole Blood 348 mg/dL (75-99)
--- NOTE | 2018-12-29 14:27 | P.DS ---
Providers Date of admission: 12/28/18 20:35 Expected date of discharge: 12/29/18 Attending physician: Sherlyn Chen Consults: 12/28/18 20:37 Consult Physician Urgent Consulting Provider: [facility] Consult Reason/Comments: acute chest pain, hx ASC[facility] Do you want consulting provider notified?: Yes Primary care physician: Sherlyn Chen [facility] Course: Discharge diagnosis 1. Chest pain. Troponins negative times Three. Chest x-ray negative. 2-D echo completed showing an EF of 60-65%. Per cardiology services an acute coronary event has been ruled out. No further cardiac workup. 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 Hypoglycemia. Blood sugar 45 upon arrival. Resolved. Patient's long and sitting insulin will be decreased to 22 units. And short acting insulin will be changed to sliding scale coverage 3. History of diabetes mellitus type 2 4. History of coronary artery disease with multiple stents. Patient is followed cardiology services 5. History of COPD 6. 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 History of DVT 8. History of eye disorder 9. History of GERD 10. History of hypothyroidism 11. History of nicotine dependence. Patient educated greater than 3 minutes on smoking cessation. Nicotine patch ordered 12. History of bipolar 13. History of anxiety Hospital course This is a 58-year-old female patient who presents with complaints of chest pain. Patient reports that the pain started abruptly and lasted approximately 1 hour. Patient reports that it was left-sided substernal chest pain that did not radiate. Patient does report associated nausea. Patient does have a significant cardiac history for 6 stents in which she does follow with Cardilology. Additional medical history includes heart failure, COPD, CVA, diabetes mellitus Coumadin DVT, I disorder, GERD, hyperlipidemia, hypertension, myocardial infarction, hypothyroidism, bipolar, anxiety and depression. Patient also is a current every day smoker. Patient also hyperglycemic upon arrival blood sugar 45. Chest x-ray completed showing no acute process. EKG showing normal sinus rhythm and normal EKG. Troponins negative. Cardiology service is consulted. 2-D echo has been ordered. At this time patient denies chest pain or shortness breath. Patient denies nausea vomiting or diarrhea. Patient denies any urinary burning or frequency. Acute coronary event has been ruled out per cardiology. 2-D echo has completed. Patient has been cleared for discharge from cardiology standpoint. Patients insulin adjusted due to hypoglycemia. Patient's blood sugar is now on the higher side. This time patient denies any chest pain or shortness of breath. Patient denies nausea vomiting or diarrhea. Patient denies any urinary frequency Or burning I performed an examination of the patient and discussed their management with the Nurse Practitioner. I have reviewed the Nurse Practitioner's notes and agree with the documented findings and plan of care Patient Condition at Discharge: Stable Plan - Discharge Summary Discharge Rx Participant: No New Discharge Prescriptions: Continue Albuterol Inhaler [Ventolin Hfa Inhaler] 2 puff INHALATION RT-Q4H PRN PRN Reason: Shortness Of Breath Famotidine [Pepcid] 20 mg PO DAILY Aspirin EC [Ecotrin Low Dose] 81 mg PO DAILY Valproic Acid [Depakene] 250 mg PO DAILY Ergocalciferol [Vitamin D2 (DRISDOL)] 50,000 unit PO Q7D HYDROcodone/APAP 10-325MG [[place] 10-325] 1 tab PO Q6H PRN PRN Reason: Pain Ferrous Sulfate [Iron (65 MG Elemental)] 325 mg PO DAILY DULoxetine HCL [Cymbalta] 60 mg PO DAILY ALPRAZolam [Xanax] 1 mg PO TID PRN PRN Reason: Anxiety Insulin Glargine [Lantus] 25 unit SQ HS Vitamin B Complex 1 cap PO DAILY Ondansetron [Zofran] 4 mg PO DAILY PRN PRN Reason: Nausea QUEtiapine [SEROquel] 100 mg PO HS QUEtiapine FUMARATE [SEROquel] 25 mg PO BID Atorvastatin [Lipitor] 20 mg PO DAILY Changed Insulin Lispro [humaLOG] See Protocol SQ AC-TID #1 Discharge Medication List Albuterol Inhaler [Ventolin Hfa Inhaler] 2 puff INHALATION RT-Q4H PRN 07/19/15 [History] Aspirin EC [Ecotrin Low Dose] 81 mg PO DAILY 07/19/15 [History] Famotidine [Pepcid] 20 mg PO DAILY 07/19/15 [History] Valproic Acid [Depakene] 250 mg PO DAILY 07/19/15 [History] Ergocalciferol [Vitamin D2 (DRISDOL)] 50,000 unit PO Q7D 03/05/16 [History] HYDROcodone/APAP 10-325MG [[place] 10-325] 1 tab PO Q6H PRN 10/03/16 [History] DULoxetine HCL [Cymbalta] 60 mg PO DAILY 02/16/17 [History] Ferrous Sulfate [Iron (65 MG Elemental)] 325 mg PO DAILY 02/16/17 [History] ALPRAZolam [Xanax] 1 mg PO TID PRN 02/19/17 [History] Insulin Glargine [Lantus] 25 unit SQ HS 06/07/17 [History] Vitamin B Complex 1 cap PO DAILY 06/07/17 [History] Ondansetron [Zofran] 4 mg PO DAILY PRN 09/06/17 [History] Atorvastatin [Lipitor] 20 mg PO DAILY 12/28/18 [History] QUEtiapine FUMARATE [SEROquel] 25 mg PO BID 12/28/18 [History] QUEtiapine [SEROquel] 100 mg PO HS 12/28/18 [History] Insulin Lispro [humaLOG] See Protocol SQ AC-TID #1 12/29/18 [Rx] Follow up Appointment(s)/Referral(s): Sherlyn Chen MD [Primary Care Provider] - 1-2 days Aldo Erickson MD [STAFF PHYSICIAN] - 01/12/19 3:15 pm Activity/Diet/Wound Care/Special Instructions: Activity as tolerated Diet heart healthy Sliding scale protocol scale a to be provided Discharge Disposition: HOME SELF-CARE
[2018-12-29] MEDS ORDERED: HEPARIN SODIUM,PORCINE 5,000 UNIT/ML 1 ML VIAL SQ SCH (21:00)
[2018-12-30] MEDS ORDERED: NICOTINE 14MG/24HR PATCH TRANSDERM SCH (09:00)
== END 2018-12-29 15:00 | disposition home or self-care (01) ==
LOC: EC 17:30 → 1SOBS 20:35
PROVIDERS: ADMIT Internal Medicine; ATTEND Internal Medicine
DX: R07.2 Precordial pain (principal); R11.0 Nausea; E11.649 Type 2 diabetes mellitus with hypoglycemia without coma; I25.10 Atherosclerotic heart disease of native coronary artery without angina pectoris; Z95.5 Presence of coronary angioplasty implant and graft; J44.9 Chronic obstructive pulmonary disease, unspecified; Z86.718 Personal history of other venous thrombosis and embolism; F41.9 Anxiety disorder, unspecified; F31.9 Bipolar disorder, unspecified; E03.9 Hypothyroidism, unspecified; H57.9 Unspecified disorder of eye and adnexa; I11.0 Hypertensive heart disease with heart failure; I50.9 Heart failure, unspecified; I25.2 Old myocardial infarction; E78.5 Hyperlipidemia, unspecified; K21.0 Gastro-esophageal reflux disease with esophagitis; I69.354 Hemiplegia and hemiparesis following cerebral infarction affecting left non-dominant side; E11.40 Type 2 diabetes mellitus with diabetic neuropathy, unspecified; G62.9 Polyneuropathy, unspecified; E11.65 Type 2 diabetes mellitus with hyperglycemia; E11.319 Type 2 diabetes mellitus with unspecified diabetic retinopathy without macular edema; F17.200 Nicotine dependence, unspecified, uncomplicated; N19 Unspecified kidney failure; R51 Headache; Z89.421 Acquired absence of other right toe(s); Z86.14 Personal history of Methicillin resistant Staphylococcus aureus infection; Z90.49 Acquired absence of other specified parts of digestive tract; Z83.3 Family history of diabetes mellitus; Z82.49 Family history of ischemic heart disease and other diseases of the circulatory system; Z82.5 Family history of asthma and other chronic lower respiratory diseases; Z79.82 Long term (current) use of aspirin; Z79.899 Other long term (current) drug therapy; Z79.4 Long term (current) use of insulin; Z88.1 Allergy status to other antibiotic agents; Z88.5 Allergy status to narcotic agent; Z88.0 Allergy status to penicillin; Z88.8 Allergy status to other drugs, medicaments and biological substances; Z91.030 Bee allergy status
CPT/HCPCS: 99285; 36415; 93005; 93306; 85379; 80164; 83880; 80053; 80048; 83735; 84484 ×2; 85025 ×2; 85610; 85730; 71046; G0378 ×2

== ENCOUNTER 2019-03-31 14:53 | Inpatient (IN) | payer OTHER ==
[2019-03-31] MEDS ORDERED: LEVOFLOXACIN 750MG-D5W PMX 750 MG in DEXTROSE/WATER 1 150ML.BAG IVPB STA (15:48)
[2019-03-31] MEDS ORDERED: VANCOMYCIN IV PER PHARMACY 1 EACH MISC MISCELLANE PRN (15:48)
[2019-03-31] MEDS ORDERED: VANCOMYCIN 1,000 MG in SODIUM CHLORIDE 0.9% 250 ML IVPB STA (15:53)
[2019-03-31] MEDS ORDERED: HYDROcodone/APAP 10-325MG 1 EACH TAB PO ONE (16:00)
--- NOTE | 2019-03-31 16:02 | ED ---
General Adult HPI <Daquan Berry - Last Filed: 03/31/19 17:26> - General Source: patient, family, RN notes reviewed, old records reviewed Mode of arrival: wheelchair Limitations: altered mental status, physical limitation <Justice Mcmahon - Last Filed: 03/31/19 17:33> - General Chief complaint: Skin/Abscess/Foreign Body Stated complaint: diabetic rt foot ulcer Time Seen by Provider: 03/31/19 15:15 - History of Present Illness Initial comments: 58-year-old female patient past history significant for diabetes, headache for ulcers presents ED chief complaint of diabetic foot ulcer on great toe of right foot. Patient caregiver provides most of history. She reports this has been ongoing for approximately 3 weeks. She has been following up with Dr. Pappas a fulfillment coordinator. He has been monitoring the wound on a weekly basis. Today was the third check of the wound, he believes that has gotten much worse. And requires IV antibiotics and admission to the hospital. Prior to this the patient has not been on any antibiotics. Reports chills at home, denies any other complaints. Systemic: Pt denies fatigue, fever/chills, rash. Pt denies weakness, night sweats, weight loss. Neuro: Pt denies headache, visual disturbances, syncope or pre-syncope. HEENT: Pt denies ocular discharge or irritation, otalgia, rhinorrhea, pharyngitis or notable lymphadenopathy. Cardiopulmonary: Pt denies chest pain, SOB, heart palpitations, dyspnea on exertion. Abdominal/GI: Pt denies abdominal pain, n/v/d. : Pt denies dysuria, burning w/ urination, frequency/urgency. Denies new onset urinary or bowel incontinence. MSK: Pt denies myalgia, loss of strength or function in extremities. Neuro: Pt denies new onset weakness, paresthesias. (Justice Mcmahon) - Related Data Home Medications Medication Instructions Recorded Confirmed Albuterol Inhaler [Ventolin Hfa 2 puff INHALATION RT-Q4H PRN 07/19/15 03/31/19 Inhaler] Aspirin EC [Ecotrin Low Dose] 81 mg PO DAILY 07/19/15 03/31/19 Famotidine [Pepcid] 20 mg PO DAILY 07/19/15 03/31/19 Valproic Acid [Depakene] 250 mg PO DAILY 07/19/15 03/31/19 Ergocalciferol [Vitamin D2 50,000 unit PO SA 03/05/16 03/31/19 (DRISDOL)] HYDROcodone/APAP 10-325MG [[place] 1 tab PO Q6H PRN 10/03/16 03/31/19 10-325] DULoxetine HCL [Cymbalta] 60 mg PO DAILY 02/16/17 03/31/19 Ferrous Sulfate [Iron (65 MG 325 mg PO DAILY 02/16/17 03/31/19 Elemental)] ALPRAZolam [Xanax] 1 mg PO Q8H PRN 02/19/17 03/31/19 Vitamin B Complex 1 cap PO DAILY 06/07/17 03/31/19 Ondansetron [Zofran] 4 mg PO DAILY PRN 09/06/17 03/31/19 Atorvastatin [Lipitor] 20 mg PO DAILY 12/28/18 03/31/19 QUEtiapine FUMARATE [SEROquel] 25 mg PO BID 12/28/18 03/31/19 QUEtiapine [SEROquel] 100 mg PO HS 12/28/18 03/31/19 Previous Rx's Medication Instructions Recorded Insulin Glargine [Lantus] 22 unit SQ HS #0 12/29/18 Insulin Lispro [humaLOG] See Protocol SQ AC-TID #1 12/29/18 Allergies Allergy/AdvReac Type Severity Reaction Status Date / Time Barbiturates Allergy Rash/Hives Verified 03/31/19 16:45 cephalexin monohydrate Allergy Rash/Hives Verified 03/31/19 16:45 [From Keflex] morphine Allergy Rash/Hives Verified 03/31/19 16:45 Penicillins Allergy Rash/Hives Verified 03/31/19 16:45 phenobarbital Allergy Swelling Verified 03/31/19 16:45 venom-honey bee Allergy Swelling Verified 03/31/19 16:45 [bee venom (honey bee)] amlodipine besylate AdvReac Vomiting Verified 03/31/19 16:45 [From Norvasc] Review of Systems ROS Other: All systems not noted in ROS Statement are negative. <Daquan Berry - Last Filed: 03/31/19 17:26> ROS Other: All systems not noted in ROS Statement are negative. <Justice Mcmahon - Last Filed: 03/31/19 17:33> ROS Statement: Those systems with pertinent positive or pertinent negative responses have been documented in the HPI. 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 [place] 2011. DVT RT AXILLA. RENAL FAILURE. LOW THYROID, PERIPHERAL NEUROPATHY HANDS & FEET. ANEMIA. HX OF DKA. USES W/C. CONSTIPATION, ESOPHAGITIS. EPIGLOTITIS. HEADACHES SINCE CVA. RETINOPATHY SHIVA EYES. HX RT TOE INFECTION- GANGRENE, HAD AMP."i need eye sx-i have bleeding behind the eyes" Last Myocardial Infarction Date:: 2011 History of Any Multi-Drug Resistant Organisms: MRSA Date of last positivie culture/infection: 09/06/17 MDRO Source:: Right Foot Past Surgical History: Appendectomy, Section, Cholecystectomy, Heart Catheterization With Stent, Hysterectomy, Orthopedic Surgery Additional Past Surgical History / Comment(s): Amputation Rt 2ND Toe. C-S X3. EGD. Bronchoscopy. RT Arm Port Placed FOR AB RX; Removed. 6 CARDIAC STENTS. left shoulder bone removed Past Anesthesia/Blood Transfusion Reactions: No Reported Reaction Additional Past Anesthesia/Blood Transfusion Reaction / Comment(s): HX OF BLOOD TRANSFUSION- NO REACTION Date of Last Stent Placement:: July 2012 Past Psychological History: Anxiety, Bipolar, Depression Smoking Status: Current every day smoker Past Alcohol Use History: None Reported Past Drug Use History: None Reported - Past Family History Father Family Medical History: Unable to Obtain, Coronary Artery Disease (CAD), Diabetes Mellitus Mother Family Medical History: COPD <Justice Mcmahon - Last Filed: 03/31/19 17:33> General Exam Limitations: altered mental status, physical limitation <Justice Mcmahon - Last Filed: 03/31/19 17:33> - General Exam Comments Initial Comments: Constitutional: NAD, AOX3, Pt has pleasant affect. HEENT: NC/AT, trachea midline, neck supple, no lymphadenopathy. Posterior pharynx non erythematous, without exudates. External ears appear normal, without discharge. Mucous membranes moist. Eyes PERRLA, EOM intact. There is no scleral icterus. No pallor noted. Cardiopulmonary: RRR, no murmurs, rubs or gallops, no JVD noted. Lungs CTAB in anterior and posterior campuzano. No peripheral edema. Abdominal exam: Abdomen soft and non-distended. Abdomen non-tender to palpation in all 4 quadrants. Bowel sounds active in LLQ. No hepatosplenomegaly. No ecch ymosis Neuro: CN II-XII grossly intact. No nuchal rigidity. No raccon eyes, no tinoco sign, no hemotympanum. No cervical spinal tenderness. MSK: Stage II ulcer noted at her aspect of great toe right foot. Mild amount of surrounding erythema. No posterior calf tenderness bilaterally, homans sign ne gative bilaterally. Posterior tibialis and radial pulse +2 bilaterally. Sensation intact in upper and lower extremities. Full active ROM in upper and lower extremities, 5/5 stregnth. (Justice Mcmahon) Course Vital Signs 03/31/19 03/31/19 15:06 16:49 Temperature 97.9 F Pulse Rate 99 101 H Respiratory 18 16 Rate Blood Pressure 118/64 116/82 O2 Sat by Pulse 97 96 Oximetry Medical Decision Making - Lab Data Result diagrams: 03/31/19 16:00 03/31/19 16:00 <Daquan Berry - Last Filed: 03/31/19 17:26> - Lab Data Result diagrams: 03/31/19 16:00 03/31/19 16:00 <Justice Mcmahon - Last Filed: 03/31/19 17:33> - Medical Decision Making Patient reevaluated and reexamined by myself, Dr. Berry. He did repeat pharynx. This includes diagnostic interpretation Yesy plan. Patient is updated on plan. Case was discussed in detail with Dr. Chen who will admit his patient with consult for Dr. Mendez, Dr. Cadena, and podiatry Dr. Pappas. (Daquan Berry) 58-year-old female patient past history significant for diabetes, headache for ulcers presents ED chief complaint of diabetic foot ulcer on great toe of right foot. Patient caregiver provides most of history. She reports this has been ongoing for approximately 3 weeks. She has been following up with Dr. Pappas a fulfillment coordinator. He has been monitoring the wound on a weekly basis. Today was the third check of the wound, he believes that has gotten much worse. And requires IV antibiotics and admission to the hospital. Prior to this the patient has not been on any antibiotics. Reports chills at home, denies any other complaints. Patient will signs stable, afebrile. Physical exam displayed: Stage II ulcer noted at her aspect of great toe right foot. Mild amount of surrounding erythema. No posterior calf tenderness bilaterally, homans sign negative bilaterally. Posterior tibialis and radial pulse +2 bilaterally. Sensation intact in upper and lower extremities. Full active ROM in upper and lower extremities, 5/5 stregnth. Laboratory investigations displayed hyperglycemic, otherwise noncompressive. Plain films displayed soft tissue swelling at the great toe with some reabsorption of the distal portion of the phalanx and underl ericka possible malaise may still be present. Patient initiated on vancomycin, Levaquin. Will be admitted for further evaluation. Case discussed with Dr. Berry. (Justice Mcmahon) - Lab Data Lab Results 03/31/19 03/31/19 03/31/19 Range/Units 16:00 16:00 16:00 WBC 8.4 (3.8-10.6) k/uL RBC 3.04 L (3.80-5.40) m/uL Hgb 9.4 L (11.4-16.0) gm/dL Hct 28.8 L (34.0-46.0) % MCV 94.8 (80.0-100.0) fL MCH 30.9 (25.0-35.0) pg MCHC 32.6 (31.0-37.0) g/dL RDW 12.5 (11.5-15.5) % Plt Count 243 (150-450) k/uL Neutrophils % 82 % Lymphocytes % 12 % Monocytes % 5 % Eosinophils % 0 % Basophils % 1 % Neutrophils # 6.9 (1.3-7.7) k/uL Lymphocytes # 1.0 (1.0-4.8) k/uL Monocytes # 0.4 (0-1.0) k/uL Eosinophils # 0.0 (0-0.7) k/uL Basophils # 0.1 (0-0.2) k/uL Sodium 138 (137-145) mmol/L Potassium 4.9 (3.5-5.1) mmol/L Chloride 101 (98-107) mmol/L Carbon Dioxide 29 (22-30) mmol/L Anion Gap 8 mmol/L BUN 26 H (7-17) mg/dL Creatinine 0.97 (0.52-1.04) mg/dL Est GFR (CKD-EPI)AfAm 75 (>60 ml/min/1.73 sqM) Est GFR (CKD-EPI)NonAf 65 (>60 ml/min/1.73 sqM) Glucose 450 H (74-99) mg/dL Plasma Lactic Acid Conrado 0.9 (0.7-2.0) mmol/L Calcium 8.8 (8.4-10.2) mg/dL Total Bilirubin 0.3 (0.2-1.3) mg/dL AST 20 (14-36) U/L ALT 22 (9-52) U/L Alkaline Phosphatase 72 (38-126) U/L Total Protein 6.7 (6.3-8.2) g/dL Albumin 3.3 L (3.5-5.0) g/dL Disposition <Daquan Berry - Last Filed: 03/31/19 17:26> <Justice Mcmahon - Last Filed: 03/31/19 17:33> Clinical Impression: Diabetic foot ulcer Disposition: ADMITTED IP TO THIS HOSP Condition: Serious Referrals: Sherlyn Chen MD [Primary Care Provider] - 1-2 days
--- NOTE | 2019-03-31 16:14 | XR ---
EXAMINATION TYPE: XR foot complete RT DATE OF EXAM: 03/31/2019 COMPARISON: 09/05/2017 HISTORY: Diabetic foot ulcer great toe TECHNIQUE: 3 views right foot FINDINGS: There is some erosion of the distal portion of the distal phalanx compared to prior study. Soft tissue abnormality is evident. There is prior amputation of the second and fifth digits. No acut e fractures are evident. Soft tissue swelling over the great toe. IMPRESSION: 1. Soft tissue swelling at the great toe with some resorption of the distal portion of the still pha lanx and underlying osteomyelitis may be present.
[2019-03-31 16:25] LABS: Basophils # (A) 0.1 k/uL (0-0.2); Basophils % (A) 1 %; Eosinophils % (A) 0 %; HCT 28.8 % (34.0-46.0); HGB 9.4 gm/dL (11.4-16.0); Lymphocytes % (A) 12 %; MCH 30.9 pg (25.0-35.0); MCHC 32.6 g/dL (31.0-37.0); MCV 94.8 fL (80.0-100.0); Mean Platelet Volume 6.9; Monocytes # (A) 0.4 k/uL (0-1.0); Monocytes % (A) 5 %; Neutrophils # (A) 6.9 k/uL (1.3-7.7); Neutrophils % (A) 82 %; Platelet Count 243 k/uL (150-450); RBC 3.04 m/uL (3.80-5.40); RDW 12.5 % (11.5-15.5); WBC 8.4 k/uL (3.8-10.6)
[2019-03-31 16:37] LABS: Albumin 3.3 g/dL (3.5-5.0); Calcium 8.8 mg/dL (8.4-10.2); Potassium 4.9 mmol/L (3.5-5.1); Total Bilirubin 0.3 mg/dL (0.2-1.3); Total Protein 6.7 g/dL (6.3-8.2)
[2019-03-31] MEDS ORDERED: SODIUM CHLORIDE 0.9% 1,000 ML IV STA (16:39)
[2019-03-31] MEDS ORDERED: INSULIN ASPART (NovoLOG) 100 UNIT/ML VIAL SQ ONE (17:18)
[2019-03-31] MEDS ORDERED: IBUPROFEN 400 MG TAB PO PRN (17:31)
[2019-03-31] MEDS ORDERED: NALOXONE 0.4 MG/ML 1 ML VIAL IV PRN (17:31)
[2019-03-31] MEDS ORDERED: ACETAMINOPHEN TAB 325 MG TAB PO PRN (17:31)
[2019-03-31] MEDS: SODIUM CHLORIDE 0.9% 1,000 ML IV SCH (18:24)
[2019-03-31] MEDS ORDERED: ONDANSETRON 4 MG TAB PO PRN (19:46)
[2019-03-31 20:32] LABS: Glucose,Whole Blood 251 mg/dL (75-99)
[2019-03-31] MEDS: QUEtiapine 25 MG TAB PO SCH (21:06)
[2019-03-31] MEDS: INSULIN DETEMIR (LEVEMIR) 100 UNIT/ML SYR SQ SCH (21:06)
[2019-03-31] MEDS: QUEtiapine 100 MG TAB PO SCH (21:06)
[2019-03-31] MEDS: INSULIN ASPART (NovoLOG) 100 UNIT/ML VIAL SQ SCH (21:06)
[2019-04-01] MEDS: SODIUM CHLORIDE 0.9% 1,000 ML IV SCH ×3 (04:08→13:53)
[2019-04-01] MEDS: VANCOMYCIN 1,000 MG in SODIUM CHLORIDE 0.9% 250 ML IVPB SCH ×2 (05:52→22:08)
[2019-04-01 06:34] LABS: Appearance,Urine Clear (Clear); Bilirubin,Urine Negative (Negative); Blood,Urine Negative (Negative); Color,Urine Yellow; Glucose,Urine (UA) 3+ (Negative); Hyaline Casts,Urine 3 /lpf (0-2); Ketones,Urine Negative (Negative); Leukocyte Esterase,Urine Small (Negative); Nitrite,Urine Negative (Negative); PH, Urine 5.5 (5.0-8.0); Protein,Urine Negative (Negative); RBC,Urine 4 /hpf (0-5); Specific Gravity,Urine 1.013 (1.001-1.035); Urobilinogen,Urine <2.0 mg/dL (<2.0)
[2019-04-01 07:08] LABS: Glucose,Whole Blood 51 mg/dL (75-99)
[2019-04-01] MEDS: INSULIN ASPART (NovoLOG) 100 UNIT/ML VIAL SQ SCH ×4 (07:14→22:07)
[2019-04-01 07:39] LABS: Glucose,Whole Blood 78 mg/dL (75-99)
[2019-04-01] MEDS: ALBUTEROL NEBULIZED 2.5 MG/3 ML INHALATION PRN ×4 (08:37→21:50)
[2019-04-01] MEDS: ASPIRIN 81 MG PO SCH (08:43)
[2019-04-01] MEDS: FOLIC ACID-VIT B COMPLEX-VIT C 1 CAP PO SCH (08:43)
[2019-04-01] MEDS: QUEtiapine 25 MG TAB PO SCH ×2 (08:43→22:07)
[2019-04-01] MEDS: DULoxetine HCL 60 MG CAPSULE.DR PO SCH (08:43)
[2019-04-01] MEDS: ATORVASTATIN 20 MG TAB PO SCH (08:43)
[2019-04-01] MEDS: DIVALPROEX 250 MG TABLET.DR PO SCH (08:43)
[2019-04-01] MEDS: FERROUS SULFATE 325 MG TAB PO SCH (08:43)
[2019-04-01] MEDS: FAMOTIDINE 20 MG TAB PO SCH (08:43)
[2019-04-01] MEDS ORDERED: ERGOCALCIFEROL 50,000 UNIT CAP PO SCH (09:00)
[2019-04-01] MEDS ORDERED: HYDROGEN PEROXIDE BOTTLE TOPICAL ONE (09:49)
[2019-04-01] MEDS ORDERED: SODIUM CHLORIDE 0.9% IRRIGATION ONE (10:00)
[2019-04-01] MEDS: HYDROcodone/APAP 10-325MG 1 EACH TAB PO PRN ×2 (10:06→20:13)
--- NOTE | 2019-04-01 10:20 | P.GSCN ---
History of Present Illness Consult date: 04/01/19 Reason for Consult: Right foot great toe ulcer Requesting physician: Daquan Berry History of present illness: This is a 58-year-old female patient who is followed by Dr. Chen on an outpatient basis. She has a past medical history significant for diabetes mellitus type 2, cerebrovascular accident in 2014 with left-sided weakness, wheelchair-bound, myocardial infarction, atherosclerotic heart disease with previous stenting, peripheral neuropathy, gastroesophageal reflux disease, hypertension, hyperlipidemia, bipolar, anxiety, depression, COPD, DVT, remote history of nicotine dependence and anemia. The patient presented to the emergency department here at [facility] last evening with complaints of a right great toe ulceration which she reports has been ongoing for about 3 weeks. She has been following with Dr. Pappas a stunt double on an outpatient basis. She feels that the wound to her right great toe has been getting more red over the last week. She denies any fevers, chills, fatigue, recent weight loss, shortness of breath or nausea and vomiting. Due to the patient's wound to her right great toe a consult was placed to Dr. Himanshu Cadena for further evaluation and treatment recommendations. Review of Systems A 14 point review of systems was completed and was negative except as mentioned in HPI. 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 [place] 2011. DVT RT AXILLA. RENAL FAILURE. LOW THYROID, PERIPHERAL NEUROPATHY HANDS & FEET. ANEMIA. HX OF DKA. USES W/C. CONSTIPATION, ESOPHAGITIS. EPIGLOTITIS. HEADACHES SINCE CVA. RETINOPATHY SHIVA EYES. HX RT TOE INFECTION- GANGRENE, HAD AMP."i need eye sx-i have bleeding behind the eyes" Last Myocardial Infarction Date:: 2011 History of Any Multi-Drug Resistant Organisms: MRSA Year Discovered:: 09/06/17 MDRO Source:: Right Foot Past Surgical History: Appendectomy, Section, Cholecystectomy, Heart Catheterization With Stent, Hysterectomy, Orthopedic Surgery Additional Past Surgical History / Comment(s): Amputation Rt 2ND Toe. C-S X3. EGD. Bronchoscopy. RT Arm Port Placed FOR AB RX; Removed. 6 CARDIAC STENTS. 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 UNABLE TO AMBULATE(LT SIDE WAS AFFECTED BY STROKE) USES A W/C. also has glucometer,shower chair(has cane /walker that she previously used). Patient does continue to smoke, the caregivers relate that the patient is unmanageable without tobacco use. She is on multiple psychiatric medications it was not thought to be a candidate for Chantix. Smoking Status: Former smoker Past Alcohol Use History: None Reported Additional Past Alcohol Use History / Comment(s): Patient states she is using a e cigarettes. She has a 24-hour caregiver that lives with her. She is wheelchair bound. states she quit smoking a year and a half ago. Using marijuana edibles Past Drug Use History: Marijuana Additional Drug Use History / Comment(s): using marijuana edibles - Past Family History Father Family Medical History: Unable to Obtain, Coronary Artery Disease (CAD), Diabetes Mellitus Mother Family Medical History: COPD Medications and Allergies Home Medications Medication Instructions Recorded Confirmed Type Albuterol Inhaler [Ventolin Hfa 2 puff INHALATION RT-Q4H PRN 07/19/15 03/31/19 History Inhaler] Aspirin EC [Ecotrin Low Dose] 81 mg PO DAILY 07/19/15 03/31/19 History Famotidine [Pepcid] 20 mg PO DAILY 07/19/15 03/31/19 History Valproic Acid [Depakene] 250 mg PO DAILY 07/19/15 03/31/19 History Ergocalciferol [Vitamin D2 50,000 unit PO SA 03/05/16 03/31/19 History (DRISDOL)] HYDROcodone/APAP 10-325MG [[place] 1 tab PO Q6H PRN 10/03/16 03/31/19 History 10-325] DULoxetine HCL [Cymbalta] 60 mg PO DAILY 02/16/17 03/31/19 History Ferrous Sulfate [Iron (65 MG 325 mg PO DAILY 02/16/17 03/31/19 History Elemental)] ALPRAZolam [Xanax] 1 mg PO Q8H PRN 02/19/17 03/31/19 History Vitamin B Complex 1 cap PO DAILY 06/07/17 03/31/19 History Ondansetron [Zofran] 4 mg PO DAILY PRN 09/06/17 03/31/19 History Atorvastatin [Lipitor] 20 mg PO DAILY 12/28/18 03/31/19 History QUEtiapine FUMARATE [SEROquel] 25 mg PO BID 12/28/18 03/31/19 History QUEtiapine [SEROquel] 100 mg PO HS 12/28/18 03/31/19 History Insulin Glargine [Lantus] 22 unit SQ HS #0 12/29/18 03/31/19 Rx Insulin Lispro [humaLOG] See Protocol SQ AC-TID #1 12/29/18 03/31/19 Rx Allergies Allergy/AdvReac Type Severity Reaction Status Date / Time Barbiturates Allergy Rash/Hives Verified 03/31/19 16:45 cephalexin monohydrate Allergy Rash/Hives Verified 03/31/19 16:45 [From Keflex] morphine Allergy Rash/Hives Verified 03/31/19 16:45 Penicillins Allergy Rash/Hives Verified 03/31/19 16:45 phenobarbital Allergy Swelling Verified 03/31/19 16:45 venom-honey bee Allergy Swelling Verified 03/31/19 16:45 [bee venom (honey bee)] amlodipine besylate AdvReac Vomiting Verified 03/31/19 16:45 [From Norvasc] Surgical - Exam Vital Signs Temp Pulse Resp BP Pulse Ox 97.9 F 99 18 118/64 97 03/31/19 15:06 03/31/19 15:06 03/31/19 15:06 03/31/19 15:06 03/31/19 15:06 - General well developed, well nourished, no distress, no pain, chronically ill - Eyes PERRL, normal ocular movement - ENT normal pinna, normal nares, normal mucosa, no hearing loss, no congestion - Neck Neck is supple, no lymphadenopathy. no masses, no bruits, trachea midline, no venous distension - Respiratory Lung sounds essentially clear throughout. Respirations are symmetrical and nonlabored. - Cardiovascular Regular rhythm and rate. S1 and S2 present, negative for S3, gallop or murmur. No peripheral edema. - Abdomen Abdomen is soft, nontender nondistended. Active bowel sounds present all 4 abdominal quadrants. No guarding or rigidity. No organomegaly present. - Genitourinary Deferred - Rectum Deferred - Integumentary Right great toe wound Acosta's grade 3. Right great toe erythema. no rash, no growths, no abnormal pigmentation - Neurologic Cranial nerves II through XII grossly intact. - Musculoskeletal Chronic Left arm paralysis and left lower extremity weakness. - Psychiatric oriented to person, oriented to place, speech is normal Results - Labs 03/31/19 16:00 03/31/19 16:00 Abnormal Lab Results - Last 24 Hours (Table) 03/31/19 03/31/19 03/31/19 Range/Units 16:00 16:00 20:28 RBC 3.04 L (3.80-5.40) m/uL Hgb 9.4 L (11.4-16.0) gm/dL Hct 28.8 L (34.0-46.0) % BUN 26 H (7-17) mg/dL Glucose 450 H (74-99) mg/dL POC Glucose (mg/dL) 251 H (75-99) mg/dL Albumin 3.3 L (3.5-5.0) g/dL Urine Glucose (UA) (Negative) Ur Leukocyte Esterase (Negative) Urine WBC (0-5) /hpf Hyaline Casts (0-2) /lpf 04/01/19 04/01/19 Range/Units 06:05 07:07 RBC (3.80-5.40) m/uL Hgb (11.4-16.0) gm/dL Hct (34.0-46.0) % BUN (7-17) mg/dL Glucose (74-99) mg/dL POC Glucose (mg/dL) 51 L (75-99) mg/dL Albumin (3.5-5.0) g/dL Urine Glucose (UA) 3+ H (Negative) Ur Leukocyte Esterase Small H (Negative) Urine WBC 8 H (0-5) /hpf Hyaline Casts 3 H (0-2) /lpf Microbiology - Last 24 Hours (Table) 03/31/19 16:00 Gram Stain - Preliminary Foot - Right Wound Culture - Preliminary Diabetes panel 03/31/19 Range/Units 16:00 Sodium 138 (137-145) mmol/L Potassium 4.9 (3.5-5.1) mmol/L Chloride 101 (98-107) mmol/L Carbon Dioxide 29 (22-30) mmol/L BUN 26 H (7-17) mg/dL Creatinine 0.97 (0.52-1.04) mg/dL Glucose 450 H (74-99) mg/dL Calcium 8.8 (8.4-10.2) mg/dL AST 20 (14-36) U/L ALT 22 (9-52) U/L Alkaline Phosphatase 72 (38-126) U/L Total Protein 6.7 (6.3-8.2) g/dL Albumin 3.3 L (3.5-5.0) g/dL Calcium panel 03/31/19 Range/Units 16:00 Calcium 8.8 (8.4-10.2) mg/dL Albumin 3.3 L (3.5-5.0) g/dL Pituitary panel 03/31/19 Range/Units 16:00 Sodium 138 (137-145) mmol/L Potassium 4.9 (3.5-5.1) mmol/L Chloride 101 (98-107) mmol/L Carbon Dioxide 29 (22-30) mmol/L BUN 26 H (7-17) mg/dL Creatinine 0.97 (0.52-1.04) mg/dL Glucose 450 H (74-99) mg/dL Calcium 8.8 (8.4-10.2) mg/dL Adrenal panel 03/31/19 Range/Units 16:00 Sodium 138 (137-145) mmol/L Potassium 4.9 (3.5-5.1) mmol/L Chloride 101 (98-107) mmol/L Carbon Dioxide 29 (22-30) mmol/L BUN 26 H (7-17) mg/dL Creatinine 0.97 (0.52-1.04) mg/dL Glucose 450 H (74-99) mg/dL Calcium 8.8 (8.4-10.2) mg/dL Total Bilirubin 0.3 (0.2-1.3) mg/dL AST 20 (14-36) U/L ALT 22 (9-52) U/L Alkaline Phosphatase 72 (38-126) U/L Total Protein 6.7 (6.3-8.2) g/dL Albumin 3.3 L (3.5-5.0) g/dL Assessment and Plan Assessment: 1. Right great toe ulcer 2. Diabetes mellitus type 2 3. History of hypertension 4. History of hyperlipidemia 5. History of CVA with left-sided weakness, wheelchair bound 6. History of myocardial infarction 7. History of atherosclerotic heart disease with previous stenting 8. Gastroesophageal reflux disease 9. History of bipolar disorder 10. History of anxiety 11. History of depression 12. Remote history of nicotine dependence 13. History of DVT 14. History of COPD 15. History of anemia. Plan: The patient was seen and examined at her bedside on the fourth floor medical surgical unit. Her chart and diagnostics review. Her case was discussed with Dr. Himanshu Cadena. At this time we will obtain a lower extremity arterial Doppler with toe pressures. Wound care instructions are as follows, irrigate the wound to her right great toe with half strength peroxide, cover with 4 x 4 gauze and wrapped with Kerlix. No weightbearing to her right foot. The patient will be tentatively scheduled for an amputation of her right great toe on 04/03/2019. Medical management and other comorbidities per primary care service. Antibiotic management per infectious disease. More recommendations to follow based on patient's clinical course. Thank you for this consult and we will look for to working with him the care of your patient. Time with Patient: Greater than 30
[2019-04-01 11:53] LABS: Glucose,Whole Blood 343 mg/dL (75-99)
--- NOTE | 2019-04-01 12:30 | P.HPIM ---
History of Present Illness H&P Date: 04/01/19 Melva Jackson is a 58-year-old female who presented to [facility] emergency room due to right foot cellulitis and ulceration on the right great toe, patient was followed by Dr. Pappas eeg technician, she failed outpatient treatment for foot cellulitis and toe ulceration were worsening, she was sent to emergency room and was admitted to medical floor, consultation to infectious disease and surgery were initiated, patient was started on IV antibiotics in the emergency room. Patient has a known history of diabetes mellitus type 1 maintained on insulin he also has a known history of stroke with left sided weakness, coronary artery disease was previous history of angioplasty and stent placement, history of peripheral neuropathy, history of hypertension, history of hyperlipidemia, history of depression was anxiety, history of COPD DVT, history of chronic anemia. Today patient was seen and examined on the medical floor she is alert and oriented 3 in no apparent distress she is complaining of pain in her foot otherwise she denies any complaints there is no fever or chills no headache or dizziness no chest pain no shortness of breath no cough no nausea or vomiting no abdominal pain no diarrhea no burning was urination no frequency or urgency no hematuria. Patient has chronic neurological deficit without any change at this time. She is wheelchair bound since her stroke 4 years. 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 PR 2011. DVT RT AXILLA. RENAL FAILURE. LOW THYROID, PERIPHERAL NEUROPATHY HANDS & FEET. ANEMIA. HX OF DKA. USES W/C. CON STIPATION, ESOPHAGITIS. EPIGLOTITIS. HEADACHES SINCE CVA. RETINOPATHY SHIVA EYES. HX RT TOE INFECTION- GANGRENE, HAD AMP."i need eye sx-i have bleeding behind the eyes" Last Myocardial Infarction Date:: 2011 History of Any Multi-Drug Resistant Organisms: MRSA Date of last positivie culture/infection: 09/06/17 MDRO Source:: Right Foot Past Surgical History: Appendectomy, Section, Cholecystectomy, Heart Catheterization With Stent, Hysterectomy, Orthopedic Surgery Additional Past Surgical History / Comment(s): Amputation Rt 2ND Toe. C-S X3. EGD. Bronchoscopy. RT Arm Port Placed FOR AB RX; Removed. 6 CARDIAC STENTS. left shoulder bone removed Past Anesthesia/Blood Transfusion Reactions: No Reported Reaction Additional Past Anesthesia/Blood Transfusion Reaction / Comment(s): HX OF BLOOD TRANSFUSION- NO REACTION Date of Last Stent Placement:: July 2012 Past Psychological History: Anxiety, Bipolar, Depression Additional Psychological History / Comment(s): PT HAS A [employer]. UNABLE TO AMBULATE(LT SIDE WAS AFFECTED BY STROKE) USES A W/C. also has glucometer,shower chair(has cane /walker that she previously used). Patient does continue to smoke, the caregivers relate that the patient is unmanageable without tobacco use. She is on multiple psychiatric medications it was not thought to be a candidate for Chantix. Smoking Status: Former smoker Past Alcohol Use History: None Reported Additional Past Alcohol Use History / Comment(s): Patient states she is using a e cigarettes. She has a 24-hour caregiver that lives with her. She is wheelchair bound. states she quit smoking a year and a half ago. Using marijuana edibles Past Drug Use History: Marijuana Additional Drug Use History / Comment(s): using marijuana edibles - Past Family History Father Family Medical History: Unable to Obtain, Coronary Artery Disease (CAD), Diabetes Mellitus Mother Family Medical History: COPD Medications and Allergies Home Medications Medication Instructions Recorded Confirmed Type Albuterol Inhaler [Ventolin Hfa 2 puff INHALATION RT-Q4H PRN 07/19/15 03/31/19 History Inhaler] Aspirin EC [Ecotrin Low Dose] 81 mg PO DAILY 07/19/15 03/31/19 History Famotidine [Pepcid] 20 mg PO DAILY 07/19/15 03/31/19 History Valproic Acid [Depakene] 250 mg PO DAILY 07/19/15 03/31/19 History Ergocalciferol [Vitamin D2 50,000 unit PO SA 03/05/16 03/31/19 History (DRISDOL)] HYDROcodone/APAP 10-325MG [Morven 1 tab PO Q6H PRN 10/03/16 03/31/19 History 10-325] DULoxetine HCL [Cymbalta] 60 mg PO DAILY 02/16/17 03/31/19 History Ferrous Sulfate [Iron (65 MG 325 mg PO DAILY 02/16/17 03/31/19 History Elemental)] ALPRAZolam [Xanax] 1 mg PO Q8H PRN 02/19/17 03/31/19 History Vitamin B Complex 1 cap PO DAILY 06/07/17 03/31/19 History Ondansetron [Zofran] 4 mg PO DAILY PRN 09/06/17 03/31/19 History Atorvastatin [Lipitor] 20 mg PO DAILY 12/28/18 03/31/19 History QUEtiapine FUMARATE [SEROquel] 25 mg PO BID 12/28/18 03/31/19 History QUEtiapine [SEROquel] 100 mg PO HS 12/28/18 03/31/19 History Insulin Glargine [Lantus] 22 unit SQ HS #0 12/29/18 03/31/19 Rx Insulin Lispro [humaLOG] See Protocol SQ AC-TID #1 12/29/18 03/31/19 Rx Allergies Allergy/AdvReac Type Severity Reaction Status Date / Time Barbiturates Allergy Rash/Hives Verified 03/31/19 16:45 cephalexin monohydrate Allergy Rash/Hives Verified 03/31/19 16:45 [From Keflex] morphine Allergy Rash/Hives Verified 03/31/19 16:45 Penicillins Allergy Rash/Hives Verified 03/31/19 16:45 phenobarbital Allergy Swelling Verified 03/31/19 16:45 venom-honey bee Allergy Swelling Verified 03/31/19 16:45 [bee venom (honey bee)] amlodipine besylate AdvReac Vomiting Verified 03/31/19 16:45 [From Norvasc] Physical Exam Vitals: Vital Signs Temp Pulse Pulse Resp BP BP Pulse Ox 04/01/19 11:50 92 04/01/19 11:39 92 04/01/19 08:47 92 04/01/19 08:45 18 04/01/19 08:37 92 04/01/19 07:00 98.5 F 93 16 123/66 92 L 04/01/19 02:11 98.6 F 85 17 95/53 95 03/31/19 19:25 99.2 F 98 16 144/61 96 03/31/19 18:45 99 20 122/65 99 03/31/19 16:49 101 H 16 116/82 96 03/31/19 15:06 97.9 F 99 18 118/64 97 Intake and Output 03/31/19 04/01/19 04/01/19 22:59 06:59 14:59 Intake Total 200 1000 596 Balance 200 1000 596 Intake: Intake, IV Titration 200 1000 Amount Sodium Chloride 0.9% 1, 200 1000 000 ml @ 100 mls/hr IV . Q10H HUMAIRA Rx#:[id number] Oral 596 Other: Voiding Method Toilet Bedside Commode # Voids 1 1 1 # Bowel Movements 1 Weight 53.524 kg In general patient is alert and oriented 3 in no apparent distress HEENT head normocephalic and atraumatic Neck is supple no JVD no goiter no lymphadenopathy Chest exam reveals a few scattered crackles no wheezing Cardiac exam reveals regular heart sounds no gallops no murmurs Abdomen is soft nontender no organomegaly with normal bowel sounds Extremity exam reveals no edema, the right great toe is swollen was ulceration and scabbing and surrounding erythema extending to the base of the foot Neurological examination reveals left sided weakness which is chronic involving the upper and lower extremities Results CBC & Chem 7: 03/31/19 16:00 03/31/19 16:00 Labs: Abnormal Lab Results - Last 24 Hours (Table) 03/31/19 03/31/19 03/31/19 Range/Units 16:00 16:00 20:28 RBC 3.04 L (3.80-5.40) m/uL Hgb 9.4 L (11.4-16.0) gm/dL Hct 28.8 L (34.0-46.0) % BUN 26 H (7-17) mg/dL Glucose 450 H (74-99) mg/dL POC Glucose (mg/dL) 251 H (75-99) mg/dL Albumin 3.3 L (3.5-5.0) g/dL Urine Glucose (UA) (Negative) Ur Leukocyte Esterase (Negative) Urine WBC (0-5) /hpf Hyaline Casts (0-2) /lpf 04/01/19 04/01/19 04/01/19 Range/Units 06:05 07:07 11:42 RBC (3.80-5.40) m/uL Hgb (11.4-16.0) gm/dL Hct (34.0-46.0) % BUN (7-17) mg/dL Glucose (74-99) mg/dL POC Glucose (mg/dL) 51 L 343 H (75-99) mg/dL Albumin (3.5-5.0) g/dL Urine Glucose (UA) 3+ H (Negative) Ur Leukocyte Esterase Small H (Negative) Urine WBC 8 H (0-5) /hpf Hyaline Casts 3 H (0-2) /lpf Microbiology - Last 24 Hours (Table) 03/31/19 16:00 Gram Stain - Preliminary Foot - Right Wound Culture - Preliminary Thrombosis Risk Factor Assmnt - Choose All That Apply Any of the Below Risk Factors Present?: Yes Each Factor Represents 1 point: Abnormal pulmonary function (COPD) Other Risk Factors: No Other congenital or acquired thrombophilia - If yes, enter type in comment: No Thrombosis Risk Factor Assessment Total Risk Factor Score: 1 Thrombosis Risk Factor Assessment Level: Low Risk Assessment and Plan Plan: #1 right lower extremity cellulitis with right big toe ulceration and swelling #2 insulin-dependent diabetes mellitus very brittle continue was current insulin dose and add sliding scale #3 history of stroke was left sided weakness in 2015 patient is wheelchair-bound and a 24-hour care #4 underlying history of hypertension #5 underlying history of hyperlipidemia #6 underlying history of COPD patient quit smoking recently #7 underlying history of depression and bipolar disorder and anxiety disorder At this time patient was started on IV antibiotic continue Continue current insulin dose Awaiting input from infectious disease and vascular surgery For DVT prophylaxis she will be started on Lovenox For GI prophylaxis patient is maintained on Pepcid
[2019-04-01] MEDS: ENOXAPARIN 40 MG/0.4 ML SYRINGE SQ SCH (13:54)
[2019-04-01 14:05] VITALS: BMI 21.5
[2019-04-01 16:43] LABS: Glucose,Whole Blood 258 mg/dL (75-99)
[2019-04-01] MEDS: LEVOFLOXACIN 750MG-D5W PMX 750 MG in DEXTROSE/WATER 1 150ML.BAG IVPB SCH (16:59)
[2019-04-01 21:17] LABS: Glucose,Whole Blood 213 mg/dL (75-99)
[2019-04-01] MEDS: QUEtiapine 100 MG TAB PO SCH (22:07)
[2019-04-01] MEDS: INSULIN DETEMIR (LEVEMIR) 100 UNIT/ML SYR SQ SCH (22:08)
--- NOTE | 2019-04-01 22:43 | P.CONS ---
History of Present Illness - Reason for Consult Consult date: 04/01/19 - Chief Complaint right great toe ulcer - History of Present Illness 58-year-old woman who is known to the infectious disease service from prior diabetic lower extremity ulcerations. She is following the wound healing Center most recently for the left heel ulceration that healed. He is now presenting from her care setting with the significant change to the right foot at the great toe. There is ulceration that has progressively worsened and now she has evidence of some gangrenous changes of the toe at the time of her presentation. She's been seen by vascular surgery and infectious disease consultation was requested. The patient has mental compromise but is able to relate that her irene n is under good control. She is denying severe fevers or chills but just does not feel well. Review of Systems patient is a poor historian but relates HEENT:Denies headache or acute visual change. Denies sinus or mouth discomforts. Denies neck stiffness or pain. Denies significant oral cavity pain. Denies difficulty on swallowing. Lungs: Chronic shortness of breath cough no hemoptysis Cardiovascular: Denies significant shortness of breath, chest pain, chest wall pain, orthopnea, dyspnea on exertion, syncope Gastrointestinal:Denies nausea, vomiting, diarrhea, constipation, hematemesis, melena, hematochezia. No no significant change of bowel habit noticed. Musculoskeletal: denies significant myalgias or arthralgias. No new joint swelling. Denies new back pain. Skin: Denies new rash or lesions. No new ulcers or wounds are related.. Neuro: Denies headache or visual change. Denies any new onset weakness or difficulty with ambulation. Denies falls or seizures. Psychiatric:Denies anxiety or depression. Endocrine: Denies significant fatigue, denies significant weight loss or weight gain. Past Medical History Past Medical History: Asthma, Coronary Artery Disease (CAD), Chest Pain / Angina, Heart Failure, COPD, CVA/TIA, Diabetes Mellitus, Deep Vein Thrombosis (DVT), Eye Disorder, GERD/Reflux, Hyperlipidemia, Hypertension, Myocardial Infarction (ID), Neurologic Disorder Additional Past Medical History / Comment(s): HX OF CVA X3 (LAST 11/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 ID [id number]. DVT RT AXILLA. RENAL FAILURE. LOW THYROID, PERIPHERAL NEUROPATHY HANDS & FEET. ANEMIA. HX OF DKA. USES W/C. CONSTIPATION, ESOPHAGITIS. EPIGLOTITIS. HEADACHES SINCE CVA. RETINOPATHY SHIVA EYES. HX RT TOE INFECTION- GANGRENE, HAD AMP."i need eye sx-i have bleeding behind the eyes" Last Myocardial Infarction Date:: 2011 History of Any Multi-Drug Resistant Organisms: MRSA Year Discovered:: 09/06/17 MDRO Source:: Right Foot Past Surgical History: Appendectomy, Section, Cholecystectomy, Heart Catheterization With Stent, Hysterectomy, Orthopedic Surgery Additional Past Surgical History / Comment(s): Amputation Rt 2ND Toe. C-S X3. EGD. Bronchoscopy. RT Arm Port Placed FOR AB RX; Removed. 6 CARDIAC STENTS. 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 UNABLE TO AMBULATE(LT SIDE WAS AFFECTED BY STROKE) USES A W/C. also has glucometer,shower chair(has cane /walker that she previously used). Patient does continue to smoke, the caregivers relate that the patient is unmanageable without tobacco use. She is on multiple psychiatric medications it was not thought to be a candidate for Chantix. Smoking Status: Current every day smoker Past Alcohol Use History: None Reported Additional Past Alcohol Use History / Comment(s): Using marijuana edibles Past Drug Use History: Marijuana Additional Drug Use History / Comment(s): using marijuana edibles - Past Family History Father Family Medical History: Unable to Obtain, Coronary Artery Disease (CAD), Diabetes Mellitus Mother Family Medical History: COPD Medications and Allergies Home Medications and Allergies Comment(s): Current Medications Acetaminophen (Tylenol Tab) 650 mg PO Q6HR PRN PRN Reason: Mild Pain or Fever > 100.5 Hydrocodone Bitart/Acetaminophen ([place] 10) 1 each PO Q6H PRN PRN Reason: MODERATE Pain Last Admin: 04/01/19 20:13 Dose: 1 each Documented by: Albuterol Sulfate (Ventolin Nebulized) 2.5 mg INHALATION RT-Q4H PRN PRN Reason: Shortness Of Breath Last Admin: 04/01/19 21:50 Dose: 2.5 mg Documented by: Alprazolam (Xanax) 1 mg PO Q8H PRN PRN Reason: Anxiety Aspirin (Aspirin) 81 mg PO DAILY [facility] Last Admin: 04/01/19 08:43 Dose: 81 mg Documented by: Atorvastatin Calcium (Lipitor) 20 mg PO DAILY [facility] Last Admin: 04/01/19 08:43 Dose: 20 mg Documented by: Divalproex Sodium (Depakote) 250 mg PO DAILY [facility] Last Admin: 04/01/19 08:43 Dose: 250 mg Documented by: Duloxetine HCl (Cymbalta) 60 mg PO DAILY [facility] Last Admin: 04/01/19 08:43 Dose: 60 mg Documented by: Enoxaparin Sodium (Lovenox) 40 mg SQ DAILY [facility] Last Admin: 04/01/19 13:54 Dose: 40 mg Documented by: Ergocalciferol (Vitamin D2) 50,000 unit PO SA [facility] Last Admin: 04/01/19 08:43 Dose: 50,000 unit Documented by: Famotidine (Pepcid) 20 mg PO DAILY [facility] Last Admin: 04/01/19 08:43 Dose: 20 mg Documented by: Ferrous Sulfate (Feosol) 325 mg PO DAILY [facility] Last Admin: 04/01/19 08:43 Dose: 325 mg Documented by: Vancomycin HCl 1,000 mg/ (Sodium Chloride) 250 mls @ 125 mls/hr IVPB Q16H [facility] Last Admin: 04/01/19 22:08 Dose: 125 mls/hr Documented by: Sodium Chloride (Saline 0.9%) 1,000 mls @ 100 mls/hr IV .Q10H [facility] Last Admin: 04/01/19 13:53 Dose: 100 mls/hr Documented by: Levofloxacin 750 mg/ IV (Solution) 150 mls @ 100 mls/hr IVPB Q24H [facility] Last Admin: 04/01/19 16:59 Dose: 100 mls/hr Documented by: Ibuprofen (Motrin) 400 mg PO Q6HR PRN PRN Reason: Mild Pain or Fever > 100.5 Insulin Aspart (Novolog) 0 unit SQ ACHS [facility]; Protocol Last Admin: 04/01/19 22:07 Dose: 3 unit Documented by: Insulin Detemir (Levemir) 22 unit SQ HS [facility] Last Admin: 04/01/19 22:08 Dose: 22 unit Documented by: Miscellaneous Information (Vancomycin Trough Due) 1 each MISCELLANE ONCE ONE Stop: 04/03/19 05:01 Multivit/Ca Carb/B Cmplx/FA/Prenat (Nephrocaps) 1 each PO DAILY [facility] Last Admin: 04/01/19 08:43 Dose: 1 each Documented by: Naloxone HCl (Narcan) 0.2 mg IV Q2M PRN PRN Reason: Opioid Reversal Ondansetron HCl (Zofran) 4 mg PO DAILY PRN PRN Reason: Nausea Quetiapine Fumarate (Seroquel) 100 mg PO HS [facility] Last Admin: 04/01/19 22:07 Dose: 100 mg Documented by: Quetiapine Fumarate (Seroquel) 25 mg PO BID [facility] Last Admin: 04/01/19 22:07 Dose: 25 mg Documented by: Home Medications Medication Instructions Recorded Confirmed Type Albuterol Inhaler [Ventolin Hfa 2 puff INHALATION RT-Q4H PRN 07/19/15 03/31/19 History Inhaler] Aspirin EC [Ecotrin Low Dose] 81 mg PO DAILY 07/19/15 03/31/19 History Famotidine [Pepcid] 20 mg PO DAILY 07/19/15 03/31/19 History Valproic Acid [Depakene] 250 mg PO DAILY 07/19/15 03/31/19 History Ergocalciferol [Vitamin D2 50,000 unit PO SA 03/05/16 03/31/19 History (DRISDOL)] HYDROcodone/APAP 10-325MG [[place] 1 tab PO Q6H PRN 10/03/16 03/31/19 History 10-325] DULoxetine HCL [Cymbalta] 60 mg PO DAILY 02/16/17 03/31/19 History Ferrous Sulfate [Iron (65 MG 325 mg PO DAILY 02/16/17 03/31/19 History Elemental)] ALPRAZolam [Xanax] 1 mg PO Q8H PRN 02/19/17 03/31/19 History Vitamin B Complex 1 cap PO DAILY 06/07/17 03/31/19 History Ondansetron [Zofran] 4 mg PO DAILY PRN 09/06/17 03/31/19 History Atorvastatin [Lipitor] 20 mg PO DAILY 12/28/18 03/31/19 History QUEtiapine FUMARATE [SEROquel] 25 mg PO BID 12/28/18 03/31/19 History QUEtiapine [SEROquel] 100 mg PO HS 12/28/18 03/31/19 History Insulin Glargine [Lantus] 22 unit SQ HS #0 12/29/18 03/31/19 Rx Insulin Lispro [humaLOG] See Protocol SQ AC-TID #1 12/29/18 03/31/19 Rx Allergies Allergy/AdvReac Type Severity Reaction Status Date / Time Barbiturates Allergy Rash/Hives Verified 03/31/19 16:45 cephalexin monohydrate Allergy Rash/Hives Verified 03/31/19 16:45 [From Keflex] morphine Allergy Rash/Hives Verified 03/31/19 16:45 Penicillins Allergy Rash/Hives Verified 03/31/19 16:45 phenobarbital Allergy Swelling Verified 03/31/19 16:45 venom-honey bee Allergy Swelling Verified 03/31/19 16:45 [bee venom (honey bee)] amlodipine besylate AdvReac Vomiting Verified 03/31/19 16:45 [From Norvasc] Physical Exam Vitals: Vital Signs Temp Pulse Pulse Resp BP Pulse Ox 04/01/19 21:50 91 04/01/19 19:50 99.3 F 96 14 118/61 94 L 04/01/19 17:16 89 04/01/19 17:07 89 04/01/19 16:50 18 04/01/19 15:00 99.3 F 87 16 102/68 96 04/01/19 11:50 92 04/01/19 11:39 92 04/01/19 08:47 92 04/01/19 08:45 18 04/01/19 08:37 92 04/01/19 07:00 98.5 F 93 16 123/66 92 L 04/01/19 02:11 98.6 F 85 17 95/53 95 Intake and Output 04/01/19 04/01/19 04/01/19 06:59 14:59 22:59 Intake Total 1000 1642 296 Balance 1000 1642 296 Intake: Intake, IV Titration 1000 750 Amount Sodium Chloride 0.9% 1, 1000 750 000 ml @ 100 mls/hr IV . Q10H [facility] Rx#:[id number] Oral 892 296 Other: Voiding Method Bedside Commode # Voids 1 1 1 # Bowel Movements 1 Weight 53.524 kg Gen: This is a [id number] female sitting up in bed and appears to be comfortable and in no acute distress. HEENT: Head is atraumatic, normocephalic. Pupils equal, round. Sclerae is anicteric. NECK: Supple. No JVD. No lymphadenopathy. No thyromegaly. LUNGS: Clear to auscultation. No wheezes or rhonchi. No intercostal retractions. HEART: Regular rate and rhythm. No murmur. ABDOMEN: Soft. Bowel sounds are present. No masses. No tenderness. EXTREMITIES: No pedal edema. No calf tenderness. To the right Great toe there is evidence of gangrenous change, soft tissue liquefication foul odor is noted NEUROLOGICAL: Patient is awake, alert and oriented x3 recognizably observe her by name does have difficulty with her speech poststroke Results CBC & Chem 7: 03/31/19 16:00 03/31/19 16:00 Labs: Abnormal Lab Results - Last 24 Hours (Table) 04/01/19 04/01/19 04/01/19 Range/Units 06:05 07:07 11:42 POC Glucose (mg/dL) 51 L 343 H (75-99) mg/dL Urine Glucose (UA) 3+ H (Negative) Ur Leukocyte Esterase Small H (Negative) Urine WBC 8 H (0-5) /hpf Hyaline Casts 3 H (0-2) /lpf 04/01/19 04/01/19 Range/Units 16:32 21:06 POC Glucose (mg/dL) 258 H 213 H (75-99) mg/dL Urine Glucose (UA) (Negative) Ur Leukocyte Esterase (Negative) Urine WBC (0-5) /hpf Hyaline Casts (0-2) /lpf Microbiology - Last 24 Hours (Table) 03/31/19 16:00 Blood Culture - Preliminary Blood No Growth after 24 hours 03/31/19 16:00 Gram Stain - Preliminary Foot - Right Wound Culture - Preliminary Laboratory Results WBC 8.4 k/uL (3.8-10.6) 03/31/19 16:00 RBC 3.04 m/uL (3.80-5.40) L 03/31/19 16:00 Hgb 9.4 gm/dL (11.4-16.0) L 03/31/19 16:00 Hct 28.8 % (34.0-46.0) L 03/31/19 16:00 MCV 94.8 fL (80.0-100.0) 03/31/19 16:00 MCH 30.9 pg (25.0-35.0) 03/31/19 16:00 MCHC 32.6 g/dL (31.0-37.0) 03/31/19 16:00 RDW 12.5 % (11.5-15.5) 03/31/19 16:00 Plt Count 243 k/uL (150-450) 03/31/19 16:00 Neutrophils % 82 % 03/31/19 16:00 Lymphocytes % 12 % 03/31/19 16:00 Monocytes % 5 % 03/31/19 16:00 Eosinophils % 0 % 03/31/19 16:00 Basophils % 1 % 03/31/19 16:00 Neutrophils # 6.9 k/uL (1.3-7.7) 03/31/19 16:00 Lymphocytes # 1.0 k/uL (1.0-4.8) 03/31/19 16:00 Monocytes # 0.4 k/uL (0-1.0) 03/31/19 16:00 Eosinophils # 0.0 k/uL (0-0.7) 03/31/19 16:00 Basophils # 0.1 k/uL (0-0.2) 03/31/19 16:00 Sodium 138 mmol/L (137-145) 03/31/19 16:00 Potassium 4.9 mmol/L (3.5-5.1) 03/31/19 16:00 Chloride 101 mmol/L (98-107) 03/31/19 16:00 Carbon Dioxide 29 mmol/L (22-30) 03/31/19 16:00 Anion Gap 8 mmol/L 03/31/19 16:00 BUN 26 mg/dL (7-17) H 03/31/19 16:00 Creatinine 0.97 mg/dL (0.52-1.04) 03/31/19 16:00 Est GFR (CKD-EPI)AfAm 75 (>60 ml/min/1.73 sqM) 03/31/19 16:00 Est GFR (CKD-EPI)NonAf 65 (>60 ml/min/1.73 sqM) 03/31/19 16:00 Glucose 450 mg/dL (74-99) H 03/31/19 16:00 POC Glucose (mg/dL) 213 mg/dL (75-99) H 04/01/19 21:06 POC Glu Grey Inspector Pamela Melo 04/01/19 21:06 Plasma Lactic Acid [place] 0.9 mmol/L (0.7-2.0) 03/31/19 16:00 Calcium 8.8 mg/dL (8.4-10.2) 03/31/19 16:00 Total Bilirubin 0.3 mg/dL (0.2-1.3) 03/31/19 16:00 AST 20 U/L (14-36) 03/31/19 16:00 ALT 22 U/L (9-52) 03/31/19 16:00 Alkaline Phosphatase 72 U/L (38-126) 03/31/19 16:00 Total Protein 6.7 g/dL (6.3-8.2) 03/31/19 16:00 Albumin 3.3 g/dL (3.5-5.0) L 03/31/19 16:00 Urine Color Yellow 04/01/19 06:05 Urine Appearance Clear (Clear) 04/01/19 06:05 Urine pH 5.5 (5.0-8.0) 04/01/19 06:05 Ur Specific [place] 1.013 (1.001-1.035) 04/01/19 06:05 Urine Protein Negative (Negative) 04/01/19 06:05 Urine Glucose (UA) 3+ (Negative) H 04/01/19 06:05 Urine Ketones Negative (Negative) 04/01/19 06:05 Urine Blood Negative (Negative) 04/01/19 06:05 Urine Nitrite Negative (Negative) 04/01/19 06:05 Urine Bilirubin Negative (Negative) 04/01/19 06:05 Urine Urobilinogen <2.0 mg/dL (<2.0) 04/01/19 06:05 Ur Leukocyte Esterase Small (Negative) H 04/01/19 06:05 Urine RBC 4 /hpf (0-5) 04/01/19 06:05 Urine WBC 8 /hpf (0-5) H 04/01/19 06:05 Hyaline Casts 3 /lpf (0-2) H 04/01/19 06:05 Microbiology 03/31/19 16:00 Blood Blood Culture - Preliminary No Growth after 24 hours 03/31/19 16:00 Foot - Right Gram Stain - Preliminary 03/31/19 16:00 Foot - Right Wound Culture - Preliminary Comments: Right foot x-ray is reviewed revealing evidence of the osteomyelitis of the great toe distal phalanx with bony destruction Assessment and Plan (1) Diabetic ulcer of foot associated with type 2 diabetes mellitus, with necrosis of bone Narrative/Plan: 58 -year-old woman who has multiple medical troubles including stroke, diabetes hypertension peripheral vascular disease with prior diabetic foot ulcerations presents to hospital with worsening ulceration to the right foot great toe. The patient has been followed in the outpatient clinic. However recently there's been no significant change to the right great toe now with evidence of the gangrenous changes to the toe. She's been seen by the vascular surgeon with plans for at least distal toe amputation hoping to save the first metatarsal head given her difficulties with transfer from her prior stroke. Antibiotic therapy is with vancomycin and Zosyn until further cultures are available but s he does have recent MRSA infection noted. Local wound care as absorptive dressing until surgical intervention. Glucose control adequate protein intake and a multivitamin are all important. Current Visit: Yes Status: Acute Code(s): E11.621 - TYPE 2 DIABETES MELLITUS WITH FOOT ULCER; L97.504 - NON-PRS CHRONIC ULCER OTH PRT UNSP FOOT W NECROSIS OF BONE SNOMED Code(s): 2725974589735 (2) Cellulitis of right foot Current Visit: Yes Status: Acute Code(s): L03.115 - CELLULITIS OF RIGHT LOWER LIMB SNOMED Code(s): 167284298 (3) MRSA (methicillin resistant Staphylococcus aureus) infection Current Visit: Yes Status: Acute Code(s): A49.02 - METHICILLIN RESIS STAPH INFECTION, UNSP SITE SNOMED Code(s): 862258799
[2019-04-02 07:18] LABS: Glucose,Whole Blood 46 mg/dL (75-99)
[2019-04-02 07:45] LABS: Glucose,Whole Blood 90 mg/dL (75-99)
[2019-04-02 08:01] LABS: Glucose,Whole Blood 54 mg/dL (75-99)
[2019-04-02] MEDS: ATORVASTATIN 20 MG TAB PO SCH (08:24)
[2019-04-02] MEDS: DULoxetine HCL 60 MG CAPSULE.DR PO SCH (08:24)
[2019-04-02] MEDS: ENOXAPARIN 40 MG/0.4 ML SYRINGE SQ SCH (08:24)
[2019-04-02] MEDS: ASPIRIN 81 MG PO SCH (08:24)
[2019-04-02] MEDS: FAMOTIDINE 20 MG TAB PO SCH (08:24)
[2019-04-02] MEDS: QUEtiapine 25 MG TAB PO SCH ×2 (08:24→21:47)
[2019-04-02] MEDS: FERROUS SULFATE 325 MG TAB PO SCH (08:24)
[2019-04-02] MEDS: FOLIC ACID-VIT B COMPLEX-VIT C 1 CAP PO SCH (08:25)
[2019-04-02] MEDS: DIVALPROEX 250 MG TABLET.DR PO SCH (08:26)
[2019-04-02] MEDS: INSULIN ASPART (NovoLOG) 100 UNIT/ML VIAL SQ SCH ×4 (08:29→21:47)
--- NOTE | 2019-04-02 08:31 | P.PN ---
Subjective Progress Note Date: 04/02/19 Melva Jackson is a 58-year-old female who presented to [facility] emergency room due to right foot cellulitis and ulceration on the right great toe, patient was followed by Dr. Pappas software support representative, she failed outpatient treatment for foot cellulitis and toe ulceration were worsening, she was sent to emergency room and was admitted to medical floor, consultation to infectious disease and surgery were initiated, patient was started on IV antibiotics in the emergency room. Patient has a known history of diabetes mellitus type 1 maintained on insulin he also has a known history of stroke with left sided weakness, coronary artery disease was previous history of angioplasty and stent placement, history of peripheral neuropathy, history of hypertension, history of hyperlipidemia, history of depression was anxiety, history of COPD DVT, history of chronic anemia. On 04/01/2019 patient was seen and examined on the medical floor she is alert and oriented 3 in no apparent distress she is complaining of pain in her foot otherwise she denies any complaints there is no fever or chills no headache or dizziness no chest pain no shortness of breath no cough no nausea or vomiting no abdominal pain no diarrhea no burning was urination no frequency or urgency no hematuria. Patient has chronic neurological deficit without any change at this time. She is wheelchair bound since her stroke 4 years. On 04/02/2019 patient was seen and examined she is alert and oriented in no apparent distress she is complaining of some pain and discomfort in her right foot otherwise she denies any complaints there is no fever or chills no headache or dizziness no chest pain no shortness of breath no cough no nausea or vomiting no abdominal pain no diarrhea and no urinary symptoms. Patient had episodes of hypoglycemia in the morning at this point will decrease Lantus dose from 22 units daily to 20 units daily. Case was discussed with Dr. De La Cruz and plan is to proceed with right great toe amputation tomorrow. Objective - Vital Signs Vital signs: Vital Signs Temp 99.1 F 04/02/19 01:10 EDT Pulse 89 04/02/19 01:10 EDT Resp 16 04/02/19 01:10 EDT BP 112/66 04/02/19 01:10 EDT Pulse Ox 96 04/02/19 01:10 EDT Intake & Output 04/01/19 04/02/19 04/02/19 19:59 06:59 18:59 Intake Total Balance Weight Intake: Intake, IV Titration Amount Sodium Chloride 0.9% 1, 000 ml @ 100 mls/hr IV . Q10H [facility] Rx#:[id number] Vancomycin 1,000 mg In Sodium Chloride 0.9% 250 ml @ 125 mls/hr IVPB Q16H [facility] Rx#:[id number] Oral Other: Voiding Method # Voids # Bowel Movements - Exam In general patient is alert and oriented 3 in no apparent distress HEENT head normocephalic and atraumatic Neck is supple no JVD no goiter no lymphadenopathy Chest exam reveals a few scattered crackles no wheezing Cardiac exam reveals regular heart sounds no gallops no murmurs Abdomen is soft nontender no organomegaly with normal bowel sounds Extremity exam reveals no edema, the right great toe is swollen with ulceration and scabbing and surrounding erythema extending to the base of the foot Neurological examination reveals left sided weakness which is chronic involving the upper and lower extremities - Labs CBC & Chem 7: 03/31/19 16:00 04/02/19 06:24 Labs: Abnormal Lab Results - Last 24 Hours (Table) 04/01/19 04/01/19 04/01/19 Range/Units 11:42 16:32 21:06 POC Glucose (mg/dL) 343 H 258 H 213 H (75-99) mg/dL 04/02/19 04/02/19 Range/Units 07:17 07:33 POC Glucose (mg/dL) 46 L 54 L (75-99) mg/dL Microbiology - Last 24 Hours (Table) 03/31/19 16:00 Blood Culture - Preliminary Blood No Growth after 24 hours 03/31/19 16:00 Gram Stain - Preliminary Foot - Right Wound Culture - Preliminary Assessment and Plan Plan: #1 right lower extremity cellulitis with right big toe ulceration and swelling #2 insulin-dependent diabetes mellitus very brittle continue was current insulin dose and add sliding scale #3 history of stroke was left sided weakness in 2015 patient is wheelchair-bound and a 24-hour care #4 underlying history of hypertension #5 underlying history of hyperlipidemia #6 underlying history of COPD patient quit smoking recently #7 underlying history of depression and bipolar disorder and anxiety disorder At this time patient was started on IV antibiotic continue Continue current insulin dose Input from Dr. Mendez reviewed continue with current antibiotics Case discussed with Dr. Dencklau plan is for right great toe amputation tomorrow For DVT prophylaxis she will be started on Lovenox For GI prophylaxis patient is maintained on Pepcid
[2019-04-02] MEDS: ALBUTEROL NEBULIZED 2.5 MG/3 ML INHALATION PRN ×4 (09:02→21:26)
--- NOTE | 2019-04-02 09:08 | P.PN ---
Subjective Progress Note Date: 04/02/19 Principal diagnosis: Diabetic infection with osteomyelitis right great toe. Patient has no specific complaints today. Objective - Vital Signs Vital signs: Vital Signs Temp 98.8 F 04/02/19 07:00 Pulse 86 04/02/19 07:00 Resp 14 04/02/19 07:00 BP 141/65 04/02/19 07:00 Pulse Ox 96 04/02/19 07:00 Intake & Output 04/01/19 04/02/19 04/02/19 19:59 06:59 18:59 Intake Total 296 Output Total 300 Balance -4 Weight Intake: Intake, IV Titration Amount Sodium Chloride 0.9% 1, 000 ml @ 100 mls/hr IV . Q10H [facility] Rx#:[id number] Vancomycin 1,000 mg In Sodium Chloride 0.9% 250 ml @ 125 mls/hr IVPB Q16H [facility] Rx#:[id number] Oral 296 Output: Urine 300 Other: Voiding Method # Voids # Bowel Movements - Exam Patient has necrosis of the distal tip of the toe and the distal tip of the phalanx is palpable through the necrosis. She is already status post amputation of the right fourth and fifth toes. - Labs CBC & Chem 7: 03/31/19 16:00 04/02/19 06:24 Labs: Abnormal Lab Results - Last 24 Hours (Table) 04/01/19 04/01/19 04/01/19 Range/Units 11:42 16:32 21:06 POC Glucose (mg/dL) 343 H 258 H 213 H (75-99) mg/dL 04/02/19 04/02/19 Range/Units 07:17 07:33 POC Glucose (mg/dL) 46 L 54 L (75-99) mg/dL Microbiology - Last 24 Hours (Table) 03/31/19 16:00 Blood Culture - Preliminary Blood No Growth after 24 hours 03/31/19 16:00 Gram Stain - Preliminary Foot - Right Wound Culture - Preliminary Assessment and Plan (1) Diabetic ulcer of right great toe Current Visit: Yes Status: Acute Code(s): E11.621 - TYPE 2 DIABETES MELLITUS WITH FOOT ULCER; L97.519 - NON-PRS CHRONIC ULCER OTH PRT RIGHT FOOT W UNSP SEVERITY SNOMED Code(s): 36226029 (2) Ulcer of right foot with necrosis of bone Current Visit: Yes Status: Acute Code(s): L97.514 - NON-PRS CHRONIC ULCER OTH PRT RIGHT FOOT W NECROSIS OF BONE SNOMED Code(s): 11300032 Plan: I discussed with the patient the findings. She will require amputation of the distal great toe. We also discussed the potential to leave this portion open for delayed primary closure due to the diabetic infection. We also discussed the possibility of amputation of the second and third toes due to their prominence and vulnerability once the great toe is gone. She verbalizes understanding of the options. We will proceed tomorrow with debridement and make decisions accordingly. She verbalizes agreement with our plan.
[2019-04-02 11:52] LABS: Glucose,Whole Blood 260 mg/dL (75-99)
[2019-04-02] MEDS: SODIUM CHLORIDE 0.9% 1,000 ML IV SCH ×2 (14:34→21:43)
[2019-04-02 17:11] LABS: Glucose,Whole Blood 321 mg/dL (75-99)
[2019-04-02] MEDS: VANCOMYCIN 1,000 MG in SODIUM CHLORIDE 0.9% 250 ML IVPB SCH (18:05)
[2019-04-02] MEDS: HYDROcodone/APAP 10-325MG 1 EACH TAB PO PRN (19:50)
[2019-04-02 20:26] LABS: Glucose,Whole Blood 207 mg/dL (75-99)
[2019-04-02] MEDS: LEVOFLOXACIN 750MG-D5W PMX 750 MG in DEXTROSE/WATER 1 150ML.BAG IVPB SCH (21:47)
[2019-04-02] MEDS: INSULIN DETEMIR (LEVEMIR) 100 UNIT/ML SYR SQ SCH (21:48)
[2019-04-02] MEDS: QUEtiapine 100 MG TAB PO SCH (21:48)
[2019-04-03] MEDS ORDERED: VANCOMYCIN TROUGH DUE 1 EACH MISC MISCELLANE ONE (05:00)
[2019-04-03 05:54] LABS: Basophils % (A) 1 %; Eosinophils # (A) 0.1 k/uL (0-0.7); Eosinophils % (A) 2 %; HCT 25.2 % (34.0-46.0); Hypochromasia Slight; Lymphocytes # (A) 1.2 k/uL (1.0-4.8); Lymphocytes % (A) 23 %; MCH 30.7 pg (25.0-35.0); MCHC 31.6 g/dL (31.0-37.0); MCV 97.2 fL (80.0-100.0); Mean Platelet Volume 6.5; Monocytes # (A) 0.4 k/uL (0-1.0); Monocytes % (A) 7 %; Neutrophils # (A) 3.4 k/uL (1.3-7.7); Neutrophils % (A) 64 %; Platelet Count 259 k/uL (150-450); RDW 12.2 % (11.5-15.5); WBC 5.3 k/uL (3.8-10.6)
[2019-04-03] MEDS: VANCOMYCIN 1,000 MG in SODIUM CHLORIDE 0.9% 250 ML IVPB SCH ×3 (06:09→18:01)
[2019-04-03] MEDS: SODIUM CHLORIDE 0.9% 1,000 ML IV SCH ×3 (06:13→15:45)
[2019-04-03 06:26] LABS: ALT 21 U/L (9-52); AST 21 U/L (14-36); African American GFR (CKD) >90 (>60 ml/min/1.73 sqM); Albumin 2.6 g/dL (3.5-5.0); Alkaline Phosphatase 52 U/L (38-126); Anion Gap 3 mmol/L; Blood Urea Nitrogen 12 mg/dL (7-17); Calcium 8.2 mg/dL (8.4-10.2); Carbon Dioxide 28 mmol/L (22-30); Chloride 112 mmol/L (98-107); Glucose 95 mg/dL (74-99); Potassium 4.6 mmol/L (3.5-5.1); Sodium 143 mmol/L (137-145); Total Bilirubin 0.3 mg/dL (0.2-1.3); Total Protein 5.7 g/dL (6.3-8.2)
[2019-04-03] MEDS: ALBUTEROL NEBULIZED 2.5 MG/3 ML INHALATION PRN ×2 (06:54→15:21)
[2019-04-03 07:00] LABS: Glucose,Whole Blood 138 mg/dL (75-99)
[2019-04-03] MEDS: INSULIN ASPART (NovoLOG) 100 UNIT/ML VIAL SQ SCH ×4 (07:55→22:41)
[2019-04-03] MEDS: ENOXAPARIN 40 MG/0.4 ML SYRINGE SQ SCH (09:54)
[2019-04-03] MEDS: FERROUS SULFATE 325 MG TAB PO SCH (09:54)
[2019-04-03] MEDS: FOLIC ACID-VIT B COMPLEX-VIT C 1 CAP PO SCH (09:54)
[2019-04-03] MEDS: FAMOTIDINE 20 MG TAB PO SCH (09:54)
[2019-04-03] MEDS: ASPIRIN 81 MG PO SCH (09:54)
[2019-04-03] MEDS: ATORVASTATIN 20 MG TAB PO SCH (09:54)
[2019-04-03] MEDS ORDERED: IV FLUID CONTINUATION 1,000 ML IV ONE (10:22)
[2019-04-03] MEDS ORDERED: LACTATED RINGERS 1,000 ML IV ONE (10:39)
[2019-04-03 10:52] LABS: Glucose,Whole Blood 277 mg/dL (75-99)
[2019-04-03] MEDS ORDERED: INSULIN ASPART (NovoLOG) 100 UNIT/ML VIAL SQ ONE ×3 (10:55→12:55)
--- NOTE | 2019-04-03 11:09 | P.PN ---
Subjective Progress Note Date: 04/03/19 Melva Jackson is a 58-year-old female who presented to [facility] emergency room due to right foot cellulitis and ulceration on the right great toe, patient was followed by Dr. Pappas asset availability leader, she failed outpatient treatment for foot cellulitis and toe ulceration were worsening, she was sent to emergency room and was admitted to medical floor, consultation to infectious disease and surgery were initiated, patient was started on IV antibiotics in the emergency room. Patient has a known history of diabetes mellitus type 1 maintained on insulin he also has a known history of stroke with left sided weakness, coronary artery disease was previous history of angioplasty and stent placement, history of peripheral neuropathy, history of hypertension, history of hyperlipidemia, history of depression was anxiety, history of COPD DVT, history of chronic anemia. On 04/01/2019 patient was seen and examined on the medical floor she is alert and oriented 3 in no apparent distress she is complaining of pain in her foot otherwise she denies any complaints there is no fever or chills no headache or dizziness no chest pain no shortness of breath no cough no nausea or vomiting no abdominal pain no diarrhea no burning was urination no frequency or urgency no hematuria. Patient has chronic neurological deficit without any change at this time. She is wheelchair bound since her stroke 4 years. On 04/02/2019 patient was seen and examined she is alert and oriented in no apparent distress she is complaining of some pain and discomfort in her right foot otherwise she denies any complaints there is no fever or chills no headache or dizziness no chest pain no shortness of breath no cough no nausea or vomiting no abdominal pain no diarrhea and no urinary symptoms. Patient had episodes of hypoglycemia in the morning at this point will decrease Lantus dose from 22 units daily to 20 units daily. Case was discussed with Dr. De La Cruz and plan is to proceed with right great toe amputation tomorrow. On 04/03/2019 patient is alert and oriented with some mild discomfort to right foot area. Plans for right greater toe amputation today with Dr. kaur. Patient denies chest pain or shortness of breath. Patient denies nausea vomiting or diarrhea. Patient denies any urinary burning or frequency. Blood sugars have improved. Patient's hemoglobin low at 8.0. Patient denies any active bleeding. Will order iron studies Objective - Vital Signs Vital signs: Vital Signs Temp 99.3 F 04/03/19 10:28 Pulse 93 04/03/19 10:28 Resp 20 04/03/19 10:28 BP 141/69 04/03/19 10:28 Pulse Ox 92 L 04/03/19 10:28 Intake & Output 04/02/19 04/03/19 04/03/19 18:59 06:59 18:59 Intake Total 592 296 Output Total 600 Balance -8 296 Intake: Oral 592 296 Output: Urine 600 Other: Voiding Method Bedpan Bedpan # Voids 1 2 # Bowel Movements 1 1 - Exam In general patient is alert and oriented 3 in no apparent distress HEENT head normocephalic and atraumatic Neck is supple no JVD no goiter no lymphadenopathy Chest exam reveals a few scattered crackles no wheezing Cardiac exam reveals regular heart sounds no gallops no murmurs Abdomen is soft nontender no organomegaly with normal bowel sounds Extremity exam reveals no edema, the right great toe is swollen with ulceration and scabbing and surrounding erythema extending to the base of the foot Neurological examination reveals left sided weakness which is chronic involving the upper and lower extremities - Labs CBC & Chem 7: 04/03/19 05:05 04/03/19 05:05 Labs: Abnormal Lab Results - Last 24 Hours (Table) 04/02/19 04/02/19 04/02/19 Range/Units 11:51 17:10 20:25 RBC (3.80-5.40) m/uL Hgb (11.4-16.0) gm/dL Hct (34.0-46.0) % Chloride (98-107) mmol/L POC Glucose (mg/dL) 260 H 321 H 207 H (75-99) mg/dL Calcium (8.4-10.2) mg/dL Total Protein (6.3-8.2) g/dL Albumin (3.5-5.0) g/dL 04/03/19 04/03/19 04/03/19 Range/Units 05:05 05:05 06:58 RBC 2.60 L (3.80-5.40) m/uL Hgb 8.0 L (11.4-16.0) gm/dL Hct 25.2 L (34.0-46.0) % Chloride 112 H (98-107) mmol/L POC Glucose (mg/dL) 138 H (75-99) mg/dL Calcium 8.2 L (8.4-10.2) mg/dL Total Protein 5.7 L (6.3-8.2) g/dL Albumin 2.6 L (3.5-5.0) g/dL 04/03/19 Range/Units 10:47 RBC (3.80-5.40) m/uL Hgb (11.4-16.0) gm/dL Hct (34.0-46.0) % Chloride (98-107) mmol/L POC Glucose (mg/dL) 277 H (75-99) mg/dL Calcium (8.4-10.2) mg/dL Total Protein (6.3-8.2) g/dL Albumin (3.5-5.0) g/dL Microbiology - Last 24 Hours (Table) 03/31/19 16:00 Gram Stain - Final Foot - Right Wound Culture - Final 03/31/19 16:00 Blood Culture - Preliminary Blood No Growth after 48 hours Assessment and Plan Assessment: #1 right lower extremity cellulitis with right big toe ulceration and swelling. Plans for right greater toe amputation today with Dr. kaur. Per infectious disease patient is currently receiving Levaquin and Zosyn #2 insulin-dependent diabetes mellitus very brittle continue was current insulin dose and add sliding scale. Lantus decreased to 20 units due to hypoglycemia #3 history of stroke was left sided weakness in 2014 patient is wheelchair-bound and a 24-hour care #4 underlying history of hypertension #5 underlying history of hyperlipidemia #6 underlying history of COPD patient quit smoking recently #7 underlying history of depression and bipolar disorder and anxiety disorder #8. Anemia. Iron studies have been ordered. No signs of active bleeding at this time. Patient is maintained on ferrous sulfate For DVT prophylaxis she will be started on Lovenox For GI prophylaxis patient is maintained on Pepcid I performed an examination of the patient and discussed their management with the Nurse Practitioner. I have reviewed the Nurse Practitioner's notes and agree with the documented findings and plan of care
[2019-04-03] MEDS ORDERED: MIDAZOLAM 2 MG/2 ML VIAL ONE (11:37)
[2019-04-03] MEDS ORDERED: fentaNYL (PF) 50 MCG/ML 2 ML AMP ONE (11:37)
[2019-04-03] MEDS: HYDROmorphone 1 MG/ML 1 ML SYRINGE IVP ONE ×2 (12:35→12:57)
[2019-04-03 12:40] LABS: Glucose,Whole Blood 248 mg/dL (75-99)
--- NOTE | 2019-04-03 13:08 | P.OP ---
Date of Procedure: 04/03/19 Preoperative Diagnosis: Osteomyelitis right great toe Postoperative Diagnosis: Same Procedure(s) Performed: Amputation right great toe through proximal phalanx Anesthesia: MAC Surgeon: Himanshu Cadena Estimated Blood Loss (ml): 50 Pathology: other (Toe for cultures) Condition: stable Disposition: PACU Indications for Procedure: The patient has an infection on the distal right great toe involving the distal tip of the phalanx with a fracture. He through its midportion Operative Findings: The tissues around the fracture and soft tissues around it were obviously necrotic. Proximal to this area the tissues were healthy pink and had an excellent blood supply. There was no sign of infection or abnormality in the proximal phalanx Description of Procedure: With the patient spine position, under benefit of IV sedation, we prepped and draped in standard fashion. We started with a fishmouth incision proximal to the area of obvious necrosis. We took this directly down to the interphalangeal joint and remove the entire distal phalanx with surrounding soft tissue. We used a rongeur to remove the distal head of the proximal phalanx. We then excised any abnormal looking tissue of the surrounding flaps and fashioned flaps in a fishmouth fashion. Hemostasis was accomplished with electrocautery. We irrigated with saline. We closed with 4-0 nylon. Hemostasis was satisfactory. Sterile dressings were applied. The patient tolerated the procedure well and was taken to recovery area in stable condition.
--- NOTE | 2019-04-03 13:09 | P.PN ---
Progress Note - Text Progress Note Date: 04/03/19 The patient tolerated her right great toe amputation well. From a surgical standpoint she can be discharged at any time. Most of the infection has been removed. The patient should go home on oral antibiotics as dictated by infectious disease. I will follow her in the office in 3 or 10 days depending on scheduling
[2019-04-03] MEDS: QUEtiapine 25 MG TAB PO SCH ×2 (13:42→22:44)
[2019-04-03] MEDS: DULoxetine HCL 60 MG CAPSULE.DR PO SCH (13:43)
[2019-04-03] MEDS: DIVALPROEX 250 MG TABLET.DR PO SCH (13:43)
[2019-04-03] MEDS: ALPRAZolam 1 MG TAB PO PRN (14:00)
[2019-04-03] MEDS: LEVOFLOXACIN 750MG-D5W PMX 750 MG in DEXTROSE/WATER 1 150ML.BAG IVPB SCH (15:42)
[2019-04-03] MEDS: HYDROcodone/APAP 10-325MG 1 EACH TAB PO PRN (15:43)
[2019-04-03 16:58] LABS: Glucose,Whole Blood 264 mg/dL (75-99)
[2019-04-03 20:58] LABS: Glucose,Whole Blood 269 mg/dL (75-99)
--- NOTE | 2019-04-03 21:13 | P.PN ---
Subjective Progress Note Date: 04/03/19 58-year-old woman who is known to the infectious disease service from prior diabetic lower extremity ulcerations. She is following the wound healing Center most recently for the left heel ulceration that healed. He is now presenting from her care setting with the significant change to the right foot at the great toe. There is ulceration that has progressively worsened and now she has evidence of some gangrenous changes of the toe at the time of her presentation. She's been seen by vascular surgery and infectious disease consultation was requested. The patient has mental compromise but is able to relate that her pain is under good control. She is denying severe fevers or chills but just does not feel well. 04/03/2019 the patient is now successfully undergone amputation to the grossly osteomyelitic great toe that actually had fracture. The surgeon has noted that a tissue proximal to the grossly infected tissue is healthy. The patient is sleepy after surgery but has no other new acute complaints. Her family who are present,are understanding of the situation. Objective - Vital Signs Vital signs: Vital Signs Temp 99.0 F 04/03/19 19:46 Pulse 80 04/03/19 19:46 Resp 18 04/03/19 19:46 BP 122/70 04/03/19 19:46 Pulse Ox 93 L 04/03/19 19:46 Intake & Output 04/03/19 04/03/19 04/04/19 06:59 18:59 06:59 Intake Total 296 1050 Output Total 50 Balance 296 1000 Intake: IV 1050 Sodium Chloride 0.9% 1, 400 000 ml @ 100 mls/hr IV . Q10H [facility] Rx#:[id number] Oral 296 Output: Estimated Blood Loss 50 Other: Voiding Method Bedpan # Voids 2 # Bowel Movements 1 - Exam Gen: This is a [id number] female sitting up in bed and appears to be comfortable and in no acute distress. HEENT: Head is atraumatic, normocephalic. Pupils equal, round. Sclerae is anicteric. NECK: Supple. No JVD. No lymphadenopathy. No thyromegaly. LUNGS: Clear to auscultation. No wheezes or rhonchi. No intercostal retractions. HEART: Regular rate and rhythm. No murmur. ABDOMEN: Soft. Bowel sounds are present. No masses. No tenderness. EXTREMITIES: No pedal edema. No calf tenderness. To the right Great toe bulky postoperative dressing is in place NEUROLOGICAL: Patient is awake, alert and oriented x3 recognizably observe her by name does have difficulty with her speech poststroke - Labs CBC & Chem 7: 04/03/19 05:05 04/03/19 05:05 Labs: Abnormal Lab Results - Last 24 Hours (Table) 04/03/19 04/03/19 04/03/19 Range/Units 05:05 05:05 06:58 RBC 2.60 L (3.80-5.40) m/uL Hgb 8.0 L (11.4-16.0) gm/dL Hct 25.2 L (34.0-46.0) % Chloride 112 H (98-107) mmol/L POC Glucose (mg/dL) 138 H (75-99) mg/dL Calcium 8.2 L (8.4-10.2) mg/dL Total Protein 5.7 L (6.3-8.2) g/dL Albumin 2.6 L (3.5-5.0) g/dL 04/03/19 04/03/19 04/03/19 Range/Units 10:47 12:38 16:57 RBC (3.80-5.40) m/uL Hgb (11.4-16.0) gm/dL Hct (34.0-46.0) % Chloride (98-107) mmol/L POC Glucose (mg/dL) 277 H 248 H 264 H (75-99) mg/dL Calcium (8.4-10.2) mg/dL Total Protein (6.3-8.2) g/dL Albumin (3.5-5.0) g/dL 04/03/19 Range/Units 20:57 RBC (3.80-5.40) m/uL Hgb (11.4-16.0) gm/dL Hct (34.0-46.0) % Chloride (98-107) mmol/L POC Glucose (mg/dL) 269 H (75-99) mg/dL Calcium (8.4-10.2) mg/dL Total Protein (6.3-8.2) g/dL Albumin (3.5-5.0) g/dL Microbiology - Last 24 Hours (Table) 03/31/19 16:00 Blood Culture - Preliminary Blood No Growth after 72 hours 04/03/19 12:27 Anaerobic Culture - Preliminary Toe - Right First 04/03/19 12:27 Tissue Culture - Preliminary Toe - Right First 03/31/19 16:00 Gram Stain - Final Foot - Right Wound Culture - Final Laboratory Results WBC 5.3 k/uL (3.8-10.6) 04/03/19 05:05 RBC 2.60 m/uL (3.80-5.40) L 04/03/19 05:05 Hgb 8.0 gm/dL (11.4-16.0) L 04/03/19 05:05 Hct 25.2 % (34.0-46.0) L 04/03/19 05:05 MCV 97.2 fL (80.0-100.0) 04/03/19 05:05 MCH 30.7 pg (25.0-35.0) 04/03/19 05:05 MCHC 31.6 g/dL (31.0-37.0) 04/03/19 05:05 RDW 12.2 % (11.5-15.5) 04/03/19 05:05 Plt Count 259 k/uL (150-450) 04/03/19 05:05 Neutrophils % 64 % 04/03/19 05:05 Lymphocytes % 23 % 04/03/19 05:05 Monocytes % 7 % 04/03/19 05:05 Eosinophils % 2 % 04/03/19 05:05 Basophils % 1 % 04/03/19 05:05 Neutrophils # 3.4 k/uL (1.3-7.7) 04/03/19 05:05 Lymphocytes # 1.2 k/uL (1.0-4.8) 04/03/19 05:05 Monocytes # 0.4 k/uL (0-1.0) 04/03/19 05:05 Eosinophils # 0.1 k/uL (0-0.7) 04/03/19 05:05 Basophils # 0.0 k/uL (0-0.2) 04/03/19 05:05 Hypochromasia Slight 04/03/19 05:05 Sodium 143 mmol/L (137-145) 04/03/19 05:05 Potassium 4.6 mmol/L (3.5-5.1) 04/03/19 05:05 Chloride 112 mmol/L (98-107) H 04/03/19 05:05 Carbon Dioxide 28 mmol/L (22-30) 04/03/19 05:05 Anion Gap 3 mmol/L 04/03/19 05:05 BUN 12 mg/dL (7-17) 04/03/19 05:05 Creatinine 0.75 mg/dL (0.52-1.04) 04/03/19 05:05 Est GFR (CKD-EPI)AfAm >90 (>60 ml/min/1.73 sqM) 04/03/19 05:05 Est GFR (CKD-EPI)NonAf 88 (>60 ml/min/1.73 sqM) 04/03/19 05:05 Glucose 95 mg/dL (74-99) 04/03/19 05:05 POC Glucose (mg/dL) 269 mg/dL (75-99) H 04/03/19 20:57 POC Glu Senior Credit Analyst ID Swathi Gabriel 04/03/19 20:57 Plasma Lactic Acid [place] 0.9 mmol/L (0.7-2.0) 03/31/19 16:00 Calcium 8.2 mg/dL (8.4-10.2) L 04/03/19 05:05 Total Bilirubin 0.3 mg/dL (0.2-1.3) 04/03/19 05:05 AST 21 U/L (14-36) 04/03/19 05:05 ALT 21 U/L (9-52) 04/03/19 05:05 Alkaline Phosphatase 52 U/L (38-126) 04/03/19 05:05 Total Protein 5.7 g/dL (6.3-8.2) L 04/03/19 05:05 Albumin 2.6 g/dL (3.5-5.0) L 04/03/19 05:05 Urine Color Yellow 04/01/19 06:05 Urine Appearance Clear (Clear) 04/01/19 06:05 Urine pH 5.5 (5.0-8.0) 04/01/19 06:05 Ur Specific [place] 1.013 (1.001-1.035) 04/01/19 06:05 Urine Protein Negative (Negative) 04/01/19 06:05 Urine Glucose (UA) 3+ (Negative) H 04/01/19 06:05 Urine Ketones Negative (Negative) 04/01/19 06:05 Urine Blood Negative (Negative) 04/01/19 06:05 Urine Nitrite Negative (Negative) 04/01/19 06:05 Urine Bilirubin Negative (Negative) 04/01/19 06:05 Urine Urobilinogen <2.0 mg/dL (<2.0) 04/01/19 06:05 Ur Leukocyte Esterase Small (Negative) H 04/01/19 06:05 Urine RBC 4 /hpf (0-5) 04/01/19 06:05 Urine WBC 8 /hpf (0-5) H 04/01/19 06:05 Hyaline Casts 3 /lpf (0-2) H 04/01/19 06:05 Vancomycin Trough 12.0 ug/mL 04/03/19 05:05 Microbiology 03/31/19 16:00 Blood Blood Culture - Preliminary No Growth after 72 hours 04/03/19 12:27 Toe - Right First Anaerobic Culture - Preliminary 04/03/19 12:27 Toe - Right First Tissue Culture - Preliminary 03/31/19 16:00 Foot - Right Gram Stain - Final 03/31/19 16:00 Foot - Right Wound Culture - Final Assessment and Plan (1) Diabetic ulcer of foot associated with type 2 diabetes mellitus, with necro sis of bone Narrative/Plan: 58 -year-old woman who has multiple medical troubles including stroke, diabetes hypertension peripheral vascular disease with prior diabetic foot ulcerations presents to hospital with worsening ulceration to the right foot great toe. The patient has been followed in the outpatient clinic. However recently there's been no significant change to the right great toe now with evidence of the gangrenous changes to the toe. She's been seen by the vascular surgeon with plans for at least distal toe amputation hoping to save the first metatarsal head given her difficulties with transfer from her prior stroke. Antibiotic therapy is with vancomycin and Zosyn until further cultures are available but she does have recent MRSA infection noted. Local wound care as absorptive dressing until surgical intervention. Glucose control adequate protein intake and a multivitamin are all important. 04/03/2019 the patient is now status post amputation of the grossly osteomyelitic distal right great toe. It is the surgeon that the proximal tissue was very healthy. Patient likely has MRSA at that site. She likely will be ready for discharge home by tomorrow which point in time antibiotic therapy with trimethoprim sulfamethoxazole may be initiated in the home setting. I double strength tablet twice per day until she is followed in the wound center in 10 days would be adequate. Local wound care as per the surgeon. Certainly needs offloading in the postoperative time frame. Current Visit: Yes Status: Acute Code(s): E11.621 - TYPE 2 DIABETES MELLITUS WITH FOOT ULCER; L97.504 - NON-PRS CHRONIC ULCER OTH PRT UNSP FOOT W NECROSIS OF BONE SNOMED Code(s): 3627786744719 (2) Cellulitis of right foot Current Visit: Yes Status: Acute Code(s): L03.115 - CELLULITIS OF RIGHT LOWER LIMB SNOMED Code(s): 798344993 (3) MRSA (methicillin resistant Staphylococcus aureus) infection Current Visit: Yes Status: Acute Code(s): A49.02 - METHICILLIN RESIS STAPH INFECTION, UNSP SITE SNOMED Code(s): 270433027
[2019-04-03] MEDS: QUEtiapine 100 MG TAB PO SCH (22:42)
[2019-04-03] MEDS: INSULIN DETEMIR (LEVEMIR) 100 UNIT/ML SYR SQ SCH (22:42)
[2019-04-04] MEDS: HYDROcodone/APAP 10-325MG 1 EACH TAB PO PRN ×2 (01:49→17:39)
[2019-04-04] MEDS: VANCOMYCIN 1,000 MG in SODIUM CHLORIDE 0.9% 250 ML IVPB SCH (05:55)
[2019-04-04 06:59] LABS: Glucose,Whole Blood 111 mg/dL (75-99)
[2019-04-04] MEDS: INSULIN ASPART (NovoLOG) 100 UNIT/ML VIAL SQ SCH ×2 (07:13→11:59)
[2019-04-04 07:45] LABS: ALT 21 U/L (9-52); AST 16 U/L (14-36); African American GFR (CKD) >90 (>60 ml/min/1.73 sqM); Albumin 2.6 g/dL (3.5-5.0); Alkaline Phosphatase 52 U/L (38-126); Anion Gap 6 mmol/L; Basophils % (A) 0 %; Blood Urea Nitrogen 15 mg/dL (7-17); Calcium 8.5 mg/dL (8.4-10.2); Carbon Dioxide 26 mmol/L (22-30); Chloride 112 mmol/L (98-107); Eosinophils # (A) 0.1 k/uL (0-0.7); Eosinophils % (A) 2 %; Glucose 99 mg/dL (74-99); HCT 26.2 % (34.0-46.0); HGB 8.3 gm/dL (11.4-16.0); Hypochromasia Slight; Lymphocytes # (A) 1.3 k/uL (1.0-4.8); Lymphocytes % (A) 33 %; MCH 30.5 pg (25.0-35.0); MCHC 31.5 g/dL (31.0-37.0); MCV 96.9 fL (80.0-100.0); Mean Platelet Volume 6.2; Monocytes # (A) 0.2 k/uL (0-1.0); Monocytes % (A) 6 %; Neutrophils # (A) 2.2 k/uL (1.3-7.7); Neutrophils % (A) 55 %; Platelet Count 289 k/uL (150-450); Potassium 4.1 mmol/L (3.5-5.1); RDW 12.3 % (11.5-15.5); Sodium 144 mmol/L (137-145); Total Bilirubin 0.2 mg/dL (0.2-1.3); Total Protein 5.6 g/dL (6.3-8.2); WBC 3.9 k/uL (3.8-10.6)
[2019-04-04] MEDS: ENOXAPARIN 40 MG/0.4 ML SYRINGE SQ SCH (07:57)
[2019-04-04] MEDS: FERROUS SULFATE 325 MG TAB PO SCH (07:57)
[2019-04-04] MEDS: ASPIRIN 81 MG PO SCH (07:57)
[2019-04-04] MEDS: ATORVASTATIN 20 MG TAB PO SCH (07:57)
[2019-04-04] MEDS: DULoxetine HCL 60 MG CAPSULE.DR PO SCH (07:57)
[2019-04-04] MEDS: FAMOTIDINE 20 MG TAB PO SCH (07:57)
[2019-04-04] MEDS: QUEtiapine 25 MG TAB PO SCH (07:57)
[2019-04-04] MEDS: FOLIC ACID-VIT B COMPLEX-VIT C 1 CAP PO SCH (07:58)
[2019-04-04] MEDS: DIVALPROEX 250 MG TABLET.DR PO SCH (07:58)
[2019-04-04] MEDS: SODIUM CHLORIDE 0.9% 1,000 ML IV SCH (07:59)
[2019-04-04 11:53] LABS: Glucose,Whole Blood 91 mg/dL (75-99)
--- NOTE | 2019-04-04 14:25 | P.DS ---
Providers Date of admission: 03/31/19 17:27 Expected date of discharge: 04/04/19 Attending physician: Sherlyn Chen Consults: 03/31/19 17:27 Consult Physician Urgent Consulting Provider: Higinio Mendez Consult Reason/Comments: Toe ulcer, osteomyelitis Do you want consulting provider notified?: Yes 03/31/19 17:28 Consult Physician Urgent Consulting Provider: Himanshu Cadena Consult Reason/Comments: Total ulcer Do you want consulting provider notified?: Yes Consult Physician Urgent Consulting Provider: Arash Pappas Consult Reason/Comments: Total ulcer Do you want consulting provider notified?: Yes Primary care physician: Sherlyn Gustavo [facility] Course: Discharge diagnosis #1 right lower extremity cellulitis with right big toe ulceration and swelling. Status post right greater toe amputation with Dr. kaur. Per infectious disease patient is currently receiving Levaquin and Zosyn. Patient has been cleared for discharge from surgical standpoint patient follow-up outpatient with surgical services. Per infectious disease patient may be discharged home on Bactrim double strength twice a day for 10 days until seen in wound care center. #2 insulin-dependent diabetes mellitus very brittle continue was current insulin dose and add sliding scale. Lantus decreased to 20 units due to hypoglycemia #3 history of stroke was left sided weakness in 2015 patient is wheelchair-bound and a 24-hour care #4 underlying history of hypertension #5 underlying history of hyperlipidemia #6 underlying history of COPD patient quit smoking recently #7 underlying history of depression and bipolar disorder and anxiety disorder #8. Anemia. Iron studies have been ordered. No signs of active bleeding at this time. Patient is maintained on ferrous sulfate. hgb increasing to 8.3 Hospital course Melva Jackson is a 58-year-old female who presented to [facility] emergency room due to right foot cellulitis and ulceration on the right great toe, patient was followed by Dr. Pappas digital service engineer, she failed outpatient treatment for foot cellulitis and toe ulceration were worsening, she was sent to emergency room and was admitted to medical floor, consultation to infectious disease and surgery were initiated, patient was started on IV antibiotics in the emergency room. Patient has a known history of diabetes mellitus type 1 maintained on insulin he also has a known history of stroke with left sided weakness, coronary artery disease was previous history of angioplasty and stent placement, history of peripheral neuropathy, history of hypertension, history of hyperlipidemia, history of depression was anxiety, history of COPD DVT, history of chronic anemia. On 04/01/2019 patient was seen and examined on the medical floor she is alert and oriented 3 in no apparent distress she is complaining of pain in her foot otherwise she denies any complaints there is no fever or chills no headache or d izziness no chest pain no shortness of breath no cough no nausea or vomiting no abdominal pain no diarrhea no burning was urination no frequency or urgency no hematuria. Patient has chronic neurological deficit without any change at this time. She is wheelchair bound since her stroke 4 years. On 04/02/2019 patient was seen and examined she is alert and oriented in no apparent distress she is complaining of some pain and discomfort in her right foot otherwise she denies any complaints there is no fever or chills no headache or dizziness no chest pain no shortness of breath no cough no nausea or vomiting no abdominal pain no diarrhea and no urinary symptoms. Patient had episodes of hypoglycemia in the morning at this point will decrease Lantus dose from 22 units daily to 20 units daily. Case was discussed with Dr. De La Cruz and plan is to proceed with right great toe amputation tomorrow. On 04/03/2019 patient is alert and oriented with some mild discomfort to right foot area. Plans for right greater toe amputation today with Dr. kaur. Patient denies chest pain or shortness of breath. Patient denies nausea vomiting or diarrhea. Patient denies any urinary burning or frequency. Blood sugars have improved. Patient's hemoglobin low at 8.0. Patient denies any active bleeding. Will order iron studies On 04/04/2019 patient is alert and oriented 3. Patient having some mild discomfort to right foot area. Patient has been cleared for discharge from surgical standpoint. Per infectious disease patient may be discharged on Bactrim DS twice a day for 10 days and follow-up in wound care clinic for further management. Patient will be DC'd with [facility] [place]. Patient denies chest pain or shortness of breath. Patient denies nausea vomiting or diarrhea. Patient denies any urinary burning or frequency. Repeat CBC has been ordered for 1 week due to anemia. Patient will be DC'd on lower dose of Lantus due to hypoglycemia. I performed an examination of the patient and discussed their management with the Nurse Practitioner. I have reviewed the Nurse Practitioner's notes and agree with the documented findings and plan of care Patient Condition at Discharge: Stable Plan - Discharge Summary Discharge Rx Participant: Yes New Discharge Prescriptions: New Sulfamethox-Tmp 800-160Mg [Bactrim DS 800-160 mg] 1 tab PO Q12HR 10 Days #20 tab Insulin Glargine [Lantus] 20 unit SQ HS 30 Days #1 vial Continue Albuterol Inhaler [Ventolin Hfa Inhaler] 2 puff INHALATION RT-Q4H PRN PRN Reason: Shortness Of Breath Famotidine [Pepcid] 20 mg PO DAILY Aspirin EC [Ecotrin Low Dose] 81 mg PO DAILY Valproic Acid [Depakene] 250 mg PO DAILY Ergocalciferol [Vitamin D2 (DRISDOL)] 50,000 unit PO SA HYDROcodone/APAP 10-325MG [[place] 10-325] 1 tab PO Q6H PRN PRN Reason: Pain Ferrous Sulfate [Iron (65 MG Elemental)] 325 mg PO DAILY DULoxetine HCL [Cymbalta] 60 mg PO DAILY ALPRAZolam [Xanax] 1 mg PO Q8H PRN PRN Reason: Anxiety Vitamin B Complex 1 cap PO DAILY Ondansetron [Zofran] 4 mg PO DAILY PRN PRN Reason: Nausea QUEtiapine [SEROquel] 100 mg PO HS QUEtiapine FUMARATE [SEROquel] 25 mg PO BID Atorvastatin [Lipitor] 20 mg PO DAILY Insulin Lispro [humaLOG] See Protocol SQ AC-TID #1 Discontinued Insulin Glargine [Lantus] 22 unit SQ HS #0 Discharge Medication List Albuterol Inhaler [Ventolin Hfa Inhaler] 2 puff INHALATION RT-Q4H PRN 07/19/15 [History] Aspirin EC [Ecotrin Low Dose] 81 mg PO DAILY 07/19/15 [History] Famotidine [Pepcid] 20 mg PO DAILY 07/19/15 [History] Valproic Acid [Depakene] 250 mg PO DAILY 07/19/15 [History] Ergocalciferol [Vitamin D2 (DRISDOL)] 50,000 unit PO SA 03/05/16 [History] HYDROcodone/APAP 10-325MG [[place] 10-325] 1 tab PO Q6H PRN 10/03/16 [History] DULoxetine HCL [Cymbalta] 60 mg PO DAILY 02/16/17 [History] Ferrous Sulfate [Iron (65 MG Elemental)] 325 mg PO DAILY 02/16/17 [History] ALPRAZolam [Xanax] 1 mg PO Q8H PRN 02/19/17 [History] Vitamin B Complex 1 cap PO DAILY 06/07/17 [History] Ondansetron [Zofran] 4 mg PO DAILY PRN 09/06/17 [History] Atorvastatin [Lipitor] 20 mg PO DAILY 12/28/18 [History] QUEtiapine FUMARATE [SEROquel] 25 mg PO BID 12/28/18 [History] QUEtiapine [SEROquel] 100 mg PO HS 12/28/18 [History] Insulin Lispro [humaLOG] See Protocol SQ AC-TID #1 12/29/18 [Rx] Insulin Glargine [Lantus] 20 unit SQ HS 30 Days #1 vial 04/04/19 [Rx] Sulfamethox-Tmp 800-160Mg [Bactrim DS 800-160 mg] 1 tab PO Q12HR 10 Days #20 tab 04/04/19 [Rx] Follow up Appointment(s)/Referral(s): [facility], [NON-STAFF] - Sherlyn Chen MD [Primary Care Provider] - 04/07/19 11:30 am Himanshu Cadena DO [Doctor of Osteopathic Medicine] - 10 Days Activity/Diet/Wound Care/Special Instructions: Activity as tolerated Diet heart healthy cardiac consistent Patient to follow-up with wound care center in 10 days. Discharge Disposition: HOME WITH HOME HEALTH SERVICES
[2019-04-04 15:32] VITALS: BP 113/57; PULSE 82; RESP 15; TEMP 97.7
[2019-04-04 16:39] LABS: Ferritin 183.2 ng/mL (10.0-291.0)
[2019-04-04] MEDS ORDERED: PNEUMOCOCCAL VACC-PNEUMOVAX 23 25 MCG/0.5 ML VIAL IM ONE (16:45)
[2019-04-04] MEDS ORDERED: INFLUENZA VACCINE (6 MOS+) 60 MCG/0.5 ML SYRINGE IM ONE (16:45)
[2019-04-04 16:49] LABS: % Iron Saturation 26.88 (12.00-45.00)
[2019-04-04 16:54] LABS: Glucose,Whole Blood 156 mg/dL (75-99)
[2019-04-04] MEDS: LEVOFLOXACIN 750MG-D5W PMX 750 MG in DEXTROSE/WATER 1 150ML.BAG IVPB SCH (17:06)
[2019-04-04] MEDS: ALPRAZolam 1 MG TAB PO PRN (17:39)
[2019-04-05] MEDS ORDERED: VANCOMYCIN TROUGH DUE 1 EACH MISC MISCELLANE ONE (05:00)
--- NOTE | 2019-04-05 11:19 | P.ARTDOP ---
Arterial Doppler LOWER EXTREMITY ARTERIAL DOPPLER: DATE OF SERVICE: 04/01/2019 Reason for study: Right foot ulcers. Doppler waveforms: Atypical bilaterally throughout. Pulse volume recording: Good toe waveforms bilaterally. Pressure gradients: Small gradient above the thigh on the right and across the knee bilaterally.. Ankle-brachial indices: 0.74 on the right and 0.75 on the left. Toe pressures: 86 on the right, 75 on the left Impression: Mild to moderate bilateral fem-pop disease. Toe perfusion probably adequate for healing. Clinical correlation recommended.
--- NOTE | 2019-04-07 09:53 | CDI ---
Documentation Clarification Form Date: 04/07/19 From: Renita Pena Phone: If you have a question about this query, please contact Elina Vazquez Line Runner at [phone] between 8am and 5pm. Admit Date: 03/31/19 Discharge Date:04/04/19 Patient Name: Melva Jackson Visit Number: [id number] ATTENTION: The Clinical Documentation Specialists (CDI) and [facility] Coding Staff appreciate your assistance in clarifying documentation. Please respond to the clarification below the line at the bottom and electronically sign. The CDI & [facility] Coding staff will review the response and follow-up if needed. Please note: Queries are made part of the Legal Health Record. If you have any questions, please contact the author of this message via ITS. Dear Dr. Sherlyn Chen Conflicting documentation has been found in the medical record: Type 1 diabetes is documented in the H&P, discharge summary and 03/02 and 03/03 progress notes. Type 2 diabetes is documented is documented in Dr. Cadena's and Dr. Mendez' notes. History/Risk Factors: Diabetes, neuropathy, retinopathy Clinical Indicators: hyperglycemia, hypoglycemia Treatment: Patient is on Insulin In your opinion, what is the most clinically appropriate diagnosis for this patient? Type 1 diabetes Type 2 diabetes Other explanation of clinical findings Unable to determine (no explanation for clinical findings) Type 2 diabetes mellitus MTDD
== END 2019-04-04 17:56 | disposition home health service (06) | DRG 617 ==
LOC: EC 14:53 → 4SSUR 17:27
PROVIDERS: ADMIT Internal Medicine; ATTEND Internal Medicine
PROC: 0Y6P0Z1 Detachment at Right 1st Toe, High, Open Approach (ICD-10-PCS; principal; 2019-03-31)
DX: E11.621 Type 2 diabetes mellitus with foot ulcer (principal); M86.9 Osteomyelitis, unspecified; E11.52 Type 2 diabetes mellitus with diabetic peripheral angiopathy with gangrene; I96 Gangrene, not elsewhere classified; I69.354 Hemiplegia and hemiparesis following cerebral infarction affecting left non-dominant side; L03.115 Cellulitis of right lower limb; M84.674A Pathological fracture in other disease, right foot, initial encounter for fracture; L97.514 Non-pressure chronic ulcer of other part of right foot with necrosis of bone; E11.69 Type 2 diabetes mellitus with other specified complication; B95.62 Methicillin resistant Staphylococcus aureus infection as the cause of diseases classified elsewhere; E11.42 Type 2 diabetes mellitus with diabetic polyneuropathy; E11.319 Type 2 diabetes mellitus with unspecified diabetic retinopathy without macular edema; E78.5 Hyperlipidemia, unspecified; F17.200 Nicotine dependence, unspecified, uncomplicated; F31.9 Bipolar disorder, unspecified; F41.9 Anxiety disorder, unspecified; I11.0 Hypertensive heart disease with heart failure; I25.10 Atherosclerotic heart disease of native coronary artery without angina pectoris; I25.2 Old myocardial infarction; I50.9 Heart failure, unspecified; J44.9 Chronic obstructive pulmonary disease, unspecified; K21.9 Gastro-esophageal reflux disease without esophagitis; E11.65 Type 2 diabetes mellitus with hyperglycemia; E11.649 Type 2 diabetes mellitus with hypoglycemia without coma; Z79.4 Long term (current) use of insulin; D63.8 Anemia in other chronic diseases classified elsewhere; E03.9 Hypothyroidism, unspecified; Z79.82 Long term (current) use of aspirin; Z79.899 Other long term (current) drug therapy; Z88.1 Allergy status to other antibiotic agents; Z88.0 Allergy status to penicillin; Z88.8 Allergy status to other drugs, medicaments and biological substances; Z86.718 Personal history of other venous thrombosis and embolism; Z86.14 Personal history of Methicillin resistant Staphylococcus aureus infection; Z91.030 Bee allergy status; Z90.49 Acquired absence of other specified parts of digestive tract; Z95.5 Presence of coronary angioplasty implant and graft; Z90.710 Acquired absence of both cervix and uterus; Z99.3 Dependence on wheelchair; Z83.3 Family history of diabetes mellitus; Z82.5 Family history of asthma and other chronic lower respiratory diseases; Z82.49 Family history of ischemic heart disease and other diseases of the circulatory system
CPT/HCPCS: 36415; 80053; 80202; 81001; 82565; 82728; 83540; 83550; 83605; 85025; 87040; 87070; 87075; 87205; 93923; 94640; 96365; 96366; 96367; 99285

== ENCOUNTER 2019-04-07 18:56 | Emergency (ER) | payer OTHER ==
[2019-04-07 19:01] VITALS: BP 95/52
--- NOTE | 2019-04-07 20:03 | ED ---
General Adult HPI - General Chief complaint: Wound/Laceration Stated complaint: rt foot problem, post op Time Seen by Provider: 04/07/19 19:07 Source: patient, family Mode of arrival: ambulatory Limitations: no limitations - History of Present Illness Initial comments: Dictation was produced using [employer] dictation software. please excuse any grammatical, word or spelling errors. Chief Complaint: 58-year-old female presents with abnormal discoloration to the right foot History of Present Illness: Is a 58-year-old female with past medical history of peripheral vascular disease. On Wednesday patient had amputation of the great toe on the right foot. Since then she's been having discoloration to the right foot. There is been bruising noted by family members to the right lateral and right dorsum of the foot with blister formation in the left foot. Patient denies any worsening pain. Patient had procedures performed by Dr. Cadena. She was seen in the office and started on Bactrim for concerns of infection. Patient has no other complaints at this time. Does not complain of increased pain to the right foot. They do have home health care nurse that irrigates the wound regularly. The ROS documented in this emergency department record has been reviewed and confirmed by me. Those systems with pertinent positive or negative responses have been documented in the HPI. All other systems are other negative and/or noncontributory. PHYSICAL EXAM: General Impression: Alert and oriented x3, not in acute distress HEENT: Normocephalic atraumatic, extra-ocular movements intact, pupils equal and reactive to light bilaterally, mucous membranes moist. Cardiovascular: Heart regular rate and rhythm, S1&S2 audible, no murmurs, rubs or gallops Chest: Lungs clear to auscultation bilaterally, no rhonchi, no wheeze, no rales Abdomen: Bowel sounds present, abdomen soft, non-tender, non-distended, no organomegaly Musculoskeletal: Pulses present and equal in all extremities, no peripheral edema Right foot: Surgical site clean dry intact with ecchymoses noted to the distal toe stump. There is also bruising noted to the right lateral and dorsal medial aspect of the right foot. There is a 2 x 2 centimeter blister to the plantar surface of the midfoot Motor: no focal deficits noted Neurological: CN II-XII grossly intact, no focal motor or sensory deficits noted Skin: Intact with no visualized rashes Psych: Normal affect and mood ED course: 58-year-old female presents with discoloration of the right foot. She is 5 days postop from toe amputation. She is currently on Bactrim. There is bruising and blister formation noted on the foot. These appear likely secondary to mild trauma from surgery. Vital signs upon arrival are within acceptable limits. There are no signs of infection at this time. Laboratory evaluation obtained showing no acute findings. X-rays nonacute. Discussed patient case in detail with Dr. Cadena who performed the surgery recently. Dr. Cadena agrees the patient's clear for discharge with follow-up next week. Return parameters discussed. Patient told to continue her Bactrim. Patient placed in a soft dressing around the foot and soft shoe. - Related Data Home Medications Medication Instructions Recorded Confirmed RX: Albuterol Inhaler [Ventolin 2 puff INHALATION RT-Q4H PRN 07/19/15 04/07/19 Hfa Inhaler] RX: Aspirin EC [Ecotrin Low Dose] 81 mg PO DAILY 07/19/15 04/07/19 RX: Famotidine [Pepcid] 20 mg PO DAILY 07/19/15 04/07/19 RX: Valproic Acid [Depakene] 250 mg PO DAILY 07/19/15 04/07/19 RX: Ergocalciferol [Vitamin D2 50,000 unit PO SA 03/05/16 04/07/19 (DRISDOL)] RX: HYDROcodone/APAP 10-325MG 1 tab PO Q6H PRN 10/03/16 04/07/19 [[place] 10-325] RX: DULoxetine HCL [Cymbalta] 60 mg PO DAILY 02/16/17 04/07/19 RX: Ferrous Sulfate [Iron (65 MG 325 mg PO DAILY 02/16/17 04/07/19 Elemental)] RX: ALPRAZolam [Xanax] 1 mg PO Q8H PRN 02/19/17 04/07/19 RX: Vitamin B Complex 1 cap PO DAILY 06/07/17 04/07/19 RX: Ondansetron [Zofran] 4 mg PO DAILY PRN 09/06/17 04/07/19 RX: Atorvastatin [Lipitor] 20 mg PO DAILY 12/28/18 04/07/19 RX: QUEtiapine FUMARATE [SEROquel] 25 mg PO BID 12/28/18 04/07/19 RX: QUEtiapine [SEROquel] 100 mg PO HS 12/28/18 04/07/19 Previous Rx's Medication Instructions Recorded RX: Insulin Lispro [humaLOG] See Protocol SQ AC-TID #1 12/29/18 Insulin Glargine [Lantus] 20 unit SQ HS 30 Days #1 vial 04/04/19 Sulfamethox-Tmp 800-160Mg [Bactrim 1 tab PO Q12HR 10 Days #20 tab 04/04/19 DS 800-160 mg] Allergies Allergy/AdvReac Type Severity Reaction Status Date / Time Barbiturates Allergy Rash/Hives Verified 04/07/19 19:22 cephalexin monohydrate Allergy Rash/Hives Verified 04/07/19 19:22 [From Keflex] morphine Allergy Rash/Hives Verified 04/07/19 19:22 Penicillins Allergy Rash/Hives Verified 04/07/19 19:22 phenobarbital Allergy Swelling Verified 04/07/19 19:22 venom-honey bee Allergy Swelling Verified 04/07/19 19:22 [bee venom (honey bee)] amlodipine besylate AdvReac Vomiting Verified 04/07/19 19:22 [From Norvasc] Review of Systems ROS Statement: Those systems with pertinent positive or pertinent negative responses have been documented in the HPI. ROS Other: All systems not noted in ROS Statement are negative. Past Medical History Past Medical History: Asthma, Coronary Artery Disease (CAD), Chest Pain / Angina, Heart Failure, COPD, CVA/TIA, Diabetes Mellitus, Deep Vein Thrombosis (DVT), Eye Disorder, GERD/Reflux, Hyperlipidemia, Hypertension, Myocardial Infarction (MS), Neurologic Disorder Additional Past Medical History / Comment(s): HX OF CVA X3 (LAST 11/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 MS 2011. DVT RT AXILLA. RENAL FAILURE. LOW THYROID, PERIPHERAL NEUROPATHY HANDS & FEET. ANEMIA. HX OF DKA. USES W/C. CONSTIPATION, ESOPHAGITIS. EPIGLOTITIS. HEADACHES SINCE CVA. RETINOPATHY SHIVA EYES. HX RT TOE INFECTION- GANGRENE, HAD AMP."i need eye sx-i have bleeding behind the eyes" Last Myocardial Infarction Date:: 2011 History of Any Multi-Drug Resistant Organisms: MRSA Date of last positivie culture/infection: 09/06/17 MDRO Source:: Right Foot Past Surgical History: Appendectomy, Section, Cholecystectomy, Heart Catheterization With Stent, Hysterectomy, Orthopedic Surgery Additional Past Surgical History / Comment(s): Amputation Rt 2ND Toe. C-S X3. EGD. Bronchoscopy. RT Arm Port Placed FOR AB RX; Removed. 6 CARDIAC STENTS. left shoulder bone removed Past Anesthesia/Blood Transfusion Reactions: No Reported Reaction Additional Past Anesthesia/Blood Transfusion Reaction / Comment(s): HX OF BLOOD TRANSFUSION- NO REACTION Date of Last Stent Placement:: July 2012 Past Psychological History: Anxiety, Bipolar, Depression Smoking Status: Current every day smoker Past Alcohol Use History: None Reported Past Drug Use History: Marijuana - Past Family History Father Family Medical History: Unable to Obtain, Coronary Artery Disease (CAD), Diabetes Mellitus Mother Family Medical History: COPD General Exam Limitations: no limitations Course Vital Signs 04/07/19 18:58 Temperature 97.5 F L Pulse Rate 78 Respiratory 22 Rate Blood Pressure 95/52 O2 Sat by Pulse 96 Oximetry Medical Decision Making - Lab Data Result diagrams: 04/07/19 19:50 04/07/19 19:50 Lab Results 04/07/19 04/07/19 Range/Units 19:50 19:50 WBC 6.2 (3.8-10.6) k/uL RBC 2.48 L (3.80-5.40) m/uL Hgb 7.7 L (11.4-16.0) gm/dL Hct 23.5 L (34.0-46.0) % MCV 94.8 (80.0-100.0) fL MCH 30.9 (25.0-35.0) pg MCHC 32.6 (31.0-37.0) g/dL RDW 12.9 (11.5-15.5) % Plt Count 288 (150-450) k/uL Neutrophils % 71 % Lymphocytes % 20 % Monocytes % 5 % Eosinophils % 1 % Basophils % 0 % Neutrophils # 4.4 (1.3-7.7) k/uL Lymphocytes # 1.2 (1.0-4.8) k/uL Monocytes # 0.3 (0-1.0) k/uL Eosinophils # 0.1 (0-0.7) k/uL Basophils # 0.0 (0-0.2) k/uL Hypochromasia Slight Sodium 142 (137-145) mmol/L Potassium 4.6 (3.5-5.1) mmol/L Chloride 106 (98-107) mmol/L Carbon Dioxide 30 (22-30) mmol/L Anion Gap 6 mmol/L BUN 23 H (7-17) mg/dL Creatinine 1.37 H (0.52-1.04) mg/dL Est GFR (CKD-EPI)AfAm 49 (>60 ml/min/1.73 sqM) Est GFR (CKD-EPI)NonAf 43 (>60 ml/min/1.73 sqM) Glucose 256 H (74-99) mg/dL Calcium 8.6 (8.4-10.2) mg/dL Disposition Clinical Impression: Discoloration of skin of foot Disposition: HOME SELF-CARE Condition: Good Instructions (If sedation given, give patient instructions): Toe Amputation (DC) Is patient prescribed a controlled substance at d/c from ED?: No Referrals: Sherlyn Chen MD [Primary Care Provider] - 1-2 days Time of Disposition: 21:22
[2019-04-07 20:08] LABS: Basophils % (A) 0 %; Eosinophils # (A) 0.1 k/uL (0-0.7); Eosinophils % (A) 1 %; HCT 23.5 % (34.0-46.0); HGB 7.7 gm/dL (11.4-16.0); Hypochromasia Slight; Lymphocytes # (A) 1.2 k/uL (1.0-4.8); Lymphocytes % (A) 20 %; MCH 30.9 pg (25.0-35.0); MCHC 32.6 g/dL (31.0-37.0); MCV 94.8 fL (80.0-100.0); Monocytes # (A) 0.3 k/uL (0-1.0); Monocytes % (A) 5 %; Neutrophils # (A) 4.4 k/uL (1.3-7.7); Neutrophils % (A) 71 %; Platelet Count 288 k/uL (150-450); RBC 2.48 m/uL (3.80-5.40); RDW 12.9 % (11.5-15.5); WBC 6.2 k/uL (3.8-10.6)
--- NOTE | 2019-04-07 20:16 | XR ---
EXAMINATION TYPE: XR foot complete RT DATE OF EXAM: 04/07/2019 CLINICAL HISTORY: Right foot pain and discoloration since recent surgery Wednesday TECHNIQUE: Frontal, lateral, and oblique images of the right foot are obtained. COMPARISON: 03/31/2019 FINDINGS: Interval partial amputation of the proximal first phalanx and entire distal first phalanx. Osseous fragment remains. Overlying soft tissue swelling is seen. Chronic unchanged appearance of the amputations of the second and fifth digits. Linear density within the fourth digit is also unchanged , likely surgical. Mild diffuse soft tissue swelling is seen. Old fracture deformity of the base of t he fifth metatarsal unchanged from the prior. No osseous ulceration or periosteal reaction seen. IMPRESSION: Mild diffuse soft tissue swelling and postoperative change. No osseous ulceration nor per iosteal reaction.
[2019-04-07 20:24] LABS: Calcium 8.6 mg/dL (8.4-10.2); Potassium 4.6 mmol/L (3.5-5.1)
[2019-04-07 21:38] VITALS: PULSE 82; RESP 16; TEMP 98.3
== END 2019-04-07 21:35 | disposition home or self-care (01) ==
LOC: EC 18:56
DX: L76.82 Other postprocedural complications of skin and subcutaneous tissue (principal); M96.840 Postprocedural hematoma of a musculoskeletal structure following a musculoskeletal system procedure; J44.9 Chronic obstructive pulmonary disease, unspecified; I25.119 Atherosclerotic heart disease of native coronary artery with unspecified angina pectoris; I11.0 Hypertensive heart disease with heart failure; I50.9 Heart failure, unspecified; K21.9 Gastro-esophageal reflux disease without esophagitis; E78.5 Hyperlipidemia, unspecified; I25.2 Old myocardial infarction; D64.9 Anemia, unspecified; F31.9 Bipolar disorder, unspecified; F41.9 Anxiety disorder, unspecified; F17.200 Nicotine dependence, unspecified, uncomplicated; Z88.0 Allergy status to penicillin; Z88.1 Allergy status to other antibiotic agents; Z88.5 Allergy status to narcotic agent; Z88.8 Allergy status to other drugs, medicaments and biological substances; Z91.030 Bee allergy status; Z79.82 Long term (current) use of aspirin; Z79.899 Other long term (current) drug therapy; Z86.14 Personal history of Methicillin resistant Staphylococcus aureus infection; Z86.73 Personal history of transient ischemic attack (TIA), and cerebral infarction without residual deficits; Z89.421 Acquired absence of other right toe(s)
CPT/HCPCS: 36415; 80048; 85025; 99283

== ENCOUNTER 2019-06-01 09:36 | Inpatient (IN) | payer OTHER ==
[2019-06-01 10:20] LABS: Glucose,Whole Blood >600 mg/dL (75-99)
[2019-06-01] MEDS ORDERED: MORPHINE SULFATE 2 MG/ML SYRINGE IVP STA (10:21)
[2019-06-01] MEDS ORDERED: SODIUM CHLORIDE 0.9% 1,000 ML IV STA ×2 (10:21→10:52)
[2019-06-01] MEDS ORDERED: INSULIN ASPART (NovoLOG) 100 UNIT/ML VIAL SQ ONE (10:22)
[2019-06-01] MEDS ORDERED: METOCLOPRAMIDE 5 MG/ML 2 ML VIAL IVP STA (10:23)
[2019-06-01 10:32] LABS: Basophils % (A) 0 %; Eosinophils % (A) 0 %; HCT 37.1 % (34.0-46.0); HGB 10.4 gm/dL (11.4-16.0); Hypochromasia Marked; Lymphocytes # (A) 0.8 k/uL (1.0-4.8); Lymphocytes % (A) 9 %; MCH 28.8 pg (25.0-35.0); Macrocytosis Slight; Mean Platelet Volume 9.1; Monocytes # (A) 0.3 k/uL (0-1.0); Monocytes % (A) 3 %; Neutrophils # (A) 7.3 k/uL (1.3-7.7); Neutrophils % (A) 87 %; Platelet Count 222 k/uL (150-450); RBC 3.61 m/uL (3.80-5.40); RDW 13.6 % (11.5-15.5); WBC 8.4 k/uL (3.8-10.6)
--- NOTE | 2019-06-01 10:36 | ED ---
General Adult HPI - General Chief complaint: Nausea/Vomiting/Diarrhea Stated complaint: High sugar Time Seen by Provider: 06/01/19 10:06 Source: patient, family, RN notes reviewed, old records reviewed Mode of arrival: EMS Limitations: physical limitation - History of Present Illness Initial comments: 58-year-old female patient with extensive vascular history including coronary artery disease, CHF, COPD, type 2 diabetes, CVA with right-sided hemiparesis presents to the chief complaint nausea vomiting diarrhea the last 3 days. Patient has caregiver with her which provides much of history. She reports the patient has had very high sugars, nausea vomiting diarrhea last 3 days. Patient complains some epigastric abdominal pain. Denies any upper respiratory symptoms, cough, congestion. Denies any chest pain or shortness of breath. Patient does have a chronic wound of her right foot for she is present Bactrim has been following up with the wound clinic. Systemic: Pt denies fatigue, fever/chills, rash. Pt denies weakness, night sweats, weight loss. Neuro: Pt denies headache, visual disturbances, syncope or pre-syncope. HEENT: Pt denies ocular discharge or irritation, otalgia, rhinorrhea, pharyngitis or notable lymphadenopathy. Cardiopulmonary: Pt denies chest pain, SOB, heart palpitations, dyspnea on exertion. Abdominal/GI: Pt denies abdominal pain, n/v/d. : Pt denies dysuria, burning w/ urination, frequency/urgency. Denies new onset urinary or bowel incontinence. MSK: Pt denies myalgia, loss of strength or function in extremities. Neuro: Pt denies new onset weakness, paresthesias. - Related Data Home Medications Medication Instructions Recorded Confirmed Albuterol Inhaler [Ventolin Hfa 2 puff INHALATION RT-Q4H PRN 07/19/15 04/07/19 Inhaler] Aspirin EC [Ecotrin Low Dose] 81 mg PO DAILY 07/19/15 04/07/19 Famotidine [Pepcid] 20 mg PO DAILY 07/19/15 04/07/19 Valproic Acid [Depakene] 250 mg PO DAILY 07/19/15 04/07/19 Ergocalciferol [Vitamin D2 50,000 unit PO SA 03/05/16 04/07/19 (DRISDOL)] HYDROcodone/APAP 10-325MG [[place] 1 tab PO Q6H PRN 10/03/16 04/07/19 10-325] DULoxetine HCL [Cymbalta] 60 mg PO DAILY 02/16/17 04/07/19 Ferrous Sulfate [Iron (65 MG 325 mg PO DAILY 02/16/17 04/07/19 Elemental)] ALPRAZolam [Xanax] 1 mg PO Q8H PRN 02/19/17 04/07/19 Vitamin B Complex 1 cap PO DAILY 06/07/17 04/07/19 Ondansetron [Zofran] 4 mg PO DAILY PRN 09/06/17 04/07/19 Atorvastatin [Lipitor] 20 mg PO DAILY 12/28/18 04/07/19 QUEtiapine FUMARATE [SEROquel] 25 mg PO BID 12/28/18 04/07/19 QUEtiapine [SEROquel] 100 mg PO HS 12/28/18 04/07/19 Previous Rx's Medication Instructions Recorded Insulin Lispro [humaLOG] See Protocol SQ AC-TID #1 12/29/18 Insulin Glargine [Lantus] 20 unit SQ HS 30 Days #1 vial 04/04/19 Sulfamethox-Tmp 800-160Mg [Bactrim 1 tab PO Q12HR 10 Days #20 tab 04/04/19 DS 800-160 mg] Allergies Allergy/AdvReac Type Severity Reaction Status Date / Time Barbiturates Allergy Rash/Hives Verified 04/07/19 19:22 cephalexin monohydrate Allergy Rash/Hives Verified 04/07/19 19:22 [From Keflex] morphine Allergy Rash/Hives Verified 04/07/19 19:22 Penicillins Allergy Rash/Hives Verified 04/07/19 19:22 phenobarbital Allergy Swelling Verified 04/07/19 19:22 venom-honey bee Allergy Swelling Verified 04/07/19 19:22 [bee venom (honey bee)] amlodipine besylate AdvReac Vomiting Verified 04/07/19 19:22 [From Norvasc] Review of Systems ROS Statement: Those systems with pertinent positive or pertinent negative responses have been documented in the HPI. ROS Other: All systems not noted in ROS Statement are negative. Past Medical History Past Medical History: Asthma, Coronary Artery Disease (CAD), Chest Pain / Angina, Heart Failure, COPD, CVA/TIA, Diabetes Mellitus, Deep Vein Thrombosis (DVT), Eye Disorder, GERD/Reflux, Hyperlipidemia, Hypertension, Myocardial Infarction (SC), Neurologic Disorder Additional Past Medical History / Comment(s): HX OF CVA X3 (LAST 11/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 SC 2011. DVT RT AXILLA. RENAL FAILURE. LOW THYROID, PERIPHERAL NEUROPATHY HANDS & FEET. ANEMIA. HX OF DKA. USES W/C. CONSTIPATION, ESOPHAGITIS. EPIGLOTITIS. HEADACHES SINCE CVA. RETINOPATHY SHIVA EYES. HX RT TOE INFECTION- GANGRENE, HAD AMP. Last Myocardial Infarction Date:: 2011 History of Any Multi-Drug Resistant Organisms: MRSA Date of last positivie culture/infection: 09/06/17 MDRO Source:: Right Foot Past Surgical History: Appendectomy, Section, Cholecystectomy, Heart Catheterization With Stent, Hysterectomy, Orthopedic Surgery Additional Past Surgical History / Comment(s): Amputation Rt 2ND Toe. C-S X3. EGD. Bronchoscopy. RT Arm Port Placed FOR AB RX; Removed. 6 CARDIAC STENTS. left shoulder bone removed Past Anesthesia/Blood Transfusion Reactions: No Reported Reaction Additional Past Anesthesia/Blood Transfusion Reaction / Comment(s): HX OF BLOOD TRANSFUSION- NO REACTION Date of Last Stent Placement:: July 2012 Past Psychological History: Anxiety, Bipolar, Depression Smoking Status: Former smoker Past Alcohol Use History: None Reported Past Drug Use History: None Reported - Past Family History Father Family Medical History: Unable to Obtain, Coronary Artery Disease (CAD), Diabetes Mellitus Mother Family Medical History: COPD General Exam - General Exam Comments Initial Comments: Constitutional: NAD, AOX3, Pt has pleasant affect. HEENT: NC/AT, trachea midline, neck supple, no lymphadenopathy. Posterior pharynx non erythematous, without exudates. External ears appear normal, without discharge. Mucous membranes moist. Eyes PERRLA, EOM intact. There is no scleral icterus. No pallor noted. Cardiopulmonary: RRR, no murmurs, rubs or gallops, no JVD noted. Lungs CTAB in anterior and posterior campuzano. No peripheral edema. Abdominal exam: Abdomen soft and non-distended. Abdomen mildly tender to palpation in epigastric region. Bowel sounds active in LLQ. No hepatosplenomegaly. No ecchymosis Neuro: CN II-XII intact. No nuchal rigidity. No raccon eyes, no tinoco sign, no hemotympanum. No cervical spinal tenderness. MSK: Diabetic foot also noted on medial and lateral aspect of right foot. Approximately 4 cm in diameter. No posterior calf tenderness bilaterally, homans sign negative bilaterally. Posterior tibialis and radial pulse +2 bilaterally. Sensation intact in upper and lower extremities. Full active ROM in upper and lower extremities, 5/5 stregnth. Limitations: physical limitation Course Vital Signs 06/01/19 06/01/19 09:54 12:36 Temperature 98.4 F Pulse Rate 100 105 H Respiratory 20 18 Rate Blood Pressure 136/58 136/58 O2 Sat by Pulse 98 97 Oximetry Medical Decision Making - Medical Decision Making 58-year-old female patient with extensive vascular history including coronary artery disease, CHF, COPD, type 2 diabetes, CVA with right-sided hemiparesis presents to the chief complaint nausea vomiting diarrhea the last 3 days. Patient has caregiver with her which provides much of history. She reports the patient has had very high sugars, nausea vomiting diarrhea last 3 days. Patient complains some epigastric abdominal pain. Denies any upper respiratory symptoms, cough, congestion. Denies any chest pain or shortness of breath. Patient does have a chronic wound of her right foot for she is present Bactrim has been following up with the wound clinic. Patient vital signs are stable, afebrile. Physical exam displayed: Diabetic foot also noted on medial and lateral aspect of right foot. Approximately 4 cm in diameter. Laboratory investigations revealed diabetic ketoacidosis. PH 7.2, venous blood gas pCO2 18, H CN III 7. Potassium 5.8. At 8. Creatinine 1.7. She has a 2.4. Glucose 829. UA displayed ketones. EKG nonischemic. Patient initiated on insulin, IV fluids. Initiated on Levaquin and vancomycin for diabetic foot infection which may have caused diabetic ketoacidosis. Patient was reportedly compliant on medication insulin. Case discussed in depth with Dr. Lockett. - Lab Data Result diagrams: 06/01/19 09:53 06/01/19 09:53 Lab Results 06/01/19 06/01/19 06/01/19 Range/Units 09:53 09:53 09:53 WBC 8.4 (3.8-10.6) k/uL RBC 3.61 L (3.80-5.40) m/uL Hgb 10.4 L (11.4-16.0) gm/dL Hct 37.1 (34.0-46.0) % MCV 102.8 H D (80.0-100.0) fL MCH 28.8 (25.0-35.0) pg MCHC 28.0 L (31.0-37.0) g/dL RDW 13.6 (11.5-15.5) % Plt Count 222 (150-450) k/uL Neutrophils % 87 % Lymphocytes % 9 % Monocytes % 3 % Eosinophils % 0 % Basophils % 0 % Neutrophils # 7.3 (1.3-7.7) k/uL Lymphocytes # 0.8 L (1.0-4.8) k/uL Monocytes # 0.3 (0-1.0) k/uL Eosinophils # 0.0 (0-0.7) k/uL Basophils # 0.0 (0-0.2) k/uL Hypochromasia Marked Macrocytosis Slight VBG pH (7.31-7.41) VBG pCO2 (37-51) mmHg VBG HCO3 (24-28) mmol/L Sodium 141 (137-145) mmol/L Potassium 5.8 H (3.5-5.1) mmol/L Chloride 102 (98-107) mmol/L Carbon Dioxide 8 L* (22-30) mmol/L Anion Gap 31 mmol/L BUN 56 H (7-17) mg/dL Creatinine 1.70 H (0.52-1.04) mg/dL Est GFR (CKD-EPI)AfAm 38 (>60 ml/min/1.73 sqM) Est GFR (CKD-EPI)NonAf 33 (>60 ml/min/1.73 sqM) Glucose 829 H* (74-99) mg/dL POC Glucose (mg/dL) (75-99) mg/dL POC Glu Mold Stacker ID Plasma Lactic Acid [place] 2.4 H* (0.7-2.0) mmol/L Calcium 10.2 (8.4-10.2) mg/dL Total Bilirubin 0.5 (0.2-1.3) mg/dL AST 21 (14-36) U/L ALT 20 (4-34) U/L Alkaline Phosphatase 104 (38-126) U/L Troponin I (0.000-0.034) ng/mL Total Protein 7.3 (6.3-8.2) g/dL Albumin 4.0 (3.5-5.0) g/dL Lipase 15 L (23-300) U/L Urine Color Urine Appearance (Clear) Urine pH (5.0-8.0) Ur Specific [place] (1.001-1.035) Urine Protein (Negative) Urine Glucose (UA) (Negative) Urine Ketones (Negative) Urine Blood (Negative) Urine Nitrite (Negative) Urine Bilirubin (Negative) Urine Urobilinogen (<2.0) mg/dL Ur Leukocyte Esterase (Negative) Acetone, Qual (Negative) 06/01/19 06/01/19 06/01/19 Range/Units 09:53 09:53 10:18 WBC (3.8-10.6) k/uL RBC (3.80-5.40) m/uL Hgb (11.4-16.0) gm/dL Hct (34.0-46.0) % MCV (80.0-100.0) fL MCH (25.0-35.0) pg MCHC (31.0-37.0) g/dL RDW (11.5-15.5) % Plt Count (150-450) k/uL Neutrophils % % Lymphocytes % % Monocytes % % Eosinophils % % Basophils % % Neutrophils # (1.3-7.7) k/uL Lymphocytes # (1.0-4.8) k/uL Monocytes # (0-1.0) k/uL Eosinophils # (0-0.7) k/uL Basophils # (0-0.2) k/uL Hypochromasia Macrocytosis VBG pH (7.31-7.41) VBG pCO2 (37-51) mmHg VBG HCO3 (24-28) mmol/L Sodium (137-145) mmol/L Potassium (3.5-5.1) mmol/L Chloride (98-107) mmol/L Carbon Dioxide (22-30) mmol/L Anion Gap mmol/L BUN (7-17) mg/dL Creatinine (0.52-1.04) mg/dL Est GFR (CKD-EPI)AfAm (>60 ml/min/1.73 sqM) Est GFR (CKD-EPI)NonAf (>60 ml/min/1.73 sqM) Glucose (74-99) mg/dL POC Glucose (mg/dL) >600 H (75-99) mg/dL POC Glu Mold Stacker ID Laura Castelan Plasma Lactic Acid [place] (0.7-2.0) mmol/L Calcium (8.4-10.2) mg/dL Total Bilirubin (0.2-1.3) mg/dL AST (14-36) U/L ALT (4-34) U/L Alkaline Phosphatase (38-126) U/L Troponin I <0.012 (0.000-0.034) ng/mL Total Protein (6.3-8.2) g/dL Albumin (3.5-5.0) g/dL Lipase (23-300) U/L Urine Color Urine Appearance (Clear) Urine pH (5.0-8.0) Ur Specific [place] (1.001-1.035) Urine Protein (Negative) Urine Glucose (UA) (Negative) Urine Ketones (Negative) Urine Blood (Negative) Urine Nitrite (Negative) Urine Bilirubin (Negative) Urine Urobilinogen (<2.0) mg/dL Ur Leukocyte Esterase (Negative) Acetone, Qual Positive (Negative) 06/01/19 06/01/19 06/01/19 Range/Units 11:10 11:10 12:38 WBC (3.8-10.6) k/uL RBC (3.80-5.40) m/uL Hgb (11.4-16.0) gm/dL Hct (34.0-46.0) % MCV (80.0-100.0) fL MCH (25.0-35.0) pg MCHC (31.0-37.0) g/dL RDW (11.5-15.5) % Plt Count (150-450) k/uL Neutrophils % % Lymphocytes % % Monocytes % % Eosinophils % % Basophils % % Neutrophils # (1.3-7.7) k/uL Lymphocytes # (1.0-4.8) k/uL Monocytes # (0-1.0) k/uL Eosinophils # (0-0.7) k/uL Basophils # (0-0.2) k/uL Hypochromasia Macrocytosis VBG pH 7.21 L (7.31-7.41) VBG pCO2 18 L* (37-51) mmHg VBG HCO3 7 L* (24-28) mmol/L Sodium (137-145) mmol/L Potassium (3.5-5.1) mmol/L Chloride (98-107) mmol/L Carbon Dioxide (22-30) mmol/L Anion Gap mmol/L BUN (7-17) mg/dL Creatinine (0.52-1.04) mg/dL Est GFR (CKD-EPI)AfAm (>60 ml/min/1.73 sqM) Est GFR (CKD-EPI)NonAf (>60 ml/min/1.73 sqM) Glucose (74-99) mg/dL POC Glucose (mg/dL) >600 H (75-99) mg/dL POC Glu Mold Stacker ID Nadya Kim Plasma Lactic Acid [place] (0.7-2.0) mmol/L Calcium (8.4-10.2) mg/dL Total Bilirubin (0.2-1.3) mg/dL AST (14-36) U/L ALT (4-34) U/L Alkaline Phosphatase (38-126) U/L Troponin I (0.000-0.034) ng/mL Total Protein (6.3-8.2) g/dL Albumin (3.5-5.0) g/dL Lipase (23-300) U/L Urine Color Light Yellow Urine Appearance Clear (Clear) Urine pH 5.0 (5.0-8.0) Ur Specific [place] 1.019 (1.001-1.035) Urine Protein Negative (Negative) Urine Glucose (UA) 4+ H (Negative) Urine Ketones 3+ H (Negative) Urine Blood Negative (Negative) Urine Nitrite Negative (Negative) Urine Bilirubin Negative (Negative) Urine Urobilinogen <2.0 (<2.0) mg/dL Ur Leukocyte Esterase Negative (Negative) Acetone, Qual (Negative) Disposition Clinical Impression: Diabetic foot infection, Diabetic ketoacidosis Disposition: ADMITTED IP TO THIS HOSP Condition: Serious Is patient prescribed a controlled substance at d/c from ED?: No Referrals: Sherlyn Chen MD [Primary Care Provider] - 1-2 days
[2019-06-01 10:39] LABS: Calcium 10.2 mg/dL (8.4-10.2); MCV 102.8 fL (80.0-100.0); Potassium 5.8 mmol/L (3.5-5.1); Total Bilirubin 0.5 mg/dL (0.2-1.3); Total Protein 7.3 g/dL (6.3-8.2)
[2019-06-01] MEDS ORDERED: INSULIN REGULAR 100 UNIT in SODIUM CHLORIDE 0.9% 100 ML IV SCH (11:15)
[2019-06-01] MEDS ORDERED: ONDANSETRON 4 MG/2 ML VIAL IVP STA ×2 (11:47→13:47)
[2019-06-01 11:53] LABS: VBG PH 7.21 (7.31-7.41)
[2019-06-01 11:58] LABS: Appearance,Urine Clear (Clear); Bilirubin,Urine Negative (Negative); Blood,Urine Negative (Negative); Color,Urine Light Yellow; Glucose,Urine (UA) 4+ (Negative); Leukocyte Esterase,Urine Negative (Negative); Nitrite,Urine Negative (Negative); Protein,Urine Negative (Negative); Specific Gravity,Urine 1.019 (1.001-1.035); Urobilinogen,Urine <2.0 mg/dL (<2.0)
--- NOTE | 2019-06-01 12:01 | XR ---
EXAMINATION TYPE: XR KUB DATE OF EXAM: 06/01/2019 11:53 AM CLINICAL HISTORY: Abdominal pain and nausea TECHNIQUE: Single supine KUB image of the abdomen is obtained. COMPARISON: None. FINDINGS: Scattered gas is seen in nondilated small bowel loops. Gas and fecal material is seen in no ndilated colon. Multiple phleboliths are seen within the pelvis. Extensive atherosclerosis of the dis sari abdominal aorta and its branches. The lung bases are clear and the osseous structures are intact. IMPRESSION: Nonobstructive bowel gas pattern.
[2019-06-01] MEDS: SODIUM CHLORIDE 0.9% 1,000 ML IV SCH ×3 (12:06→20:33)
[2019-06-01 12:34] LABS: Ketones,Urine 3+ (Negative)
[2019-06-01 12:40] LABS: Glucose,Whole Blood >600 mg/dL (75-99)
[2019-06-01] MEDS ORDERED: NALOXONE 0.4 MG/ML 1 ML VIAL IV PRN (13:12)
[2019-06-01] MEDS ORDERED: VANCOMYCIN IV PER PHARMACY 1 EACH MISC MISCELLANE PRN (13:26)
[2019-06-01] MEDS ORDERED: VANCOMYCIN 1,000 MG in SODIUM CHLORIDE 0.9% 250 ML IVPB ONE (13:45)
[2019-06-01 13:53] LABS: Glucose,Whole Blood 575 mg/dL (75-99)
--- NOTE | 2019-06-01 13:54 | ED ---
Medical Decision Making - Medical Decision Making Ventricular 102,. Full and 52, QRS 88, QT/QTC 370/42. Sinus tachycardia, right shoulder discomfort on EKG, no concern for acute ischemia at this time. - Lab Data Result diagrams: 06/01/19 09:53 06/01/19 09:53 Lab Results 06/01/19 06/01/19 06/01/19 Range/Units 09:53 09:53 09:53 WBC 8.4 (3.8-10.6) k/uL RBC 3.61 L (3.80-5.40) m/uL Hgb 10.4 L (11.4-16.0) gm/dL Hct 37.1 (34.0-46.0) % MCV 102.8 H D (80.0-100.0) fL MCH 28.8 (25.0-35.0) pg MCHC 28.0 L (31.0-37.0) g/dL RDW 13.6 (11.5-15.5) % Plt Count 222 (150-450) k/uL Neutrophils % 87 % Lymphocytes % 9 % Monocytes % 3 % Eosinophils % 0 % Basophils % 0 % Neutrophils # 7.3 (1.3-7.7) k/uL Lymphocytes # 0.8 L (1.0-4.8) k/uL Monocytes # 0.3 (0-1.0) k/uL Eosinophils # 0.0 (0-0.7) k/uL Basophils # 0.0 (0-0.2) k/uL Hypochromasia Marked Macrocytosis Slight VBG pH (7.31-7.41) VBG pCO2 (37-51) mmHg VBG HCO3 (24-28) mmol/L Sodium 141 (137-145) mmol/L Potassium 5.8 H (3.5-5.1) mmol/L Chloride 102 (98-107) mmol/L Carbon Dioxide 8 L* (22-30) mmol/L Anion Gap 31 mmol/L BUN 56 H (7-17) mg/dL Creatinine 1.70 H (0.52-1.04) mg/dL Est GFR (CKD-EPI)AfAm 38 (>60 ml/min/1.73 sqM) Est GFR (CKD-EPI)NonAf 33 (>60 ml/min/1.73 sqM) Glucose 829 H* (74-99) mg/dL POC Glucose (mg/dL) (75-99) mg/dL POC Glu Client Service Associate ID Plasma Lactic Acid [place] 2.4 H* (0.7-2.0) mmol/L Calcium 10.2 (8.4-10.2) mg/dL Total Bilirubin 0.5 (0.2-1.3) mg/dL AST 21 (14-36) U/L ALT 20 (4-34) U/L Alkaline Phosphatase 104 (38-126) U/L Troponin I (0.000-0.034) ng/mL Total Protein 7.3 (6.3-8.2) g/dL Albumin 4.0 (3.5-5.0) g/dL Lipase 15 L (23-300) U/L Urine Color Urine Appearance (Clear) Urine pH (5.0-8.0) Ur Specific [place] (1.001-1.035) Urine Protein (Negative) Urine Glucose (UA) (Negative) Urine Ketones (Negative) Urine Blood (Negative) Urine Nitrite (Negative) Urine Bilirubin (Negative) Urine Urobilinogen (<2.0) mg/dL Ur Leukocyte Esterase (Negative) Acetone, Qual (Negative) 06/01/19 06/01/19 06/01/19 Range/Units 09:53 09:53 10:18 WBC (3.8-10.6) k/uL RBC (3.80-5.40) m/uL Hgb (11.4-16.0) gm/dL Hct (34.0-46.0) % MCV (80.0-100.0) fL MCH (25.0-35.0) pg MCHC (31.0-37.0) g/dL RDW (11.5-15.5) % Plt Count (150-450) k/uL Neutrophils % % Lymphocytes % % Monocytes % % Eosinophils % % Basophils % % Neutrophils # (1.3-7.7) k/uL Lymphocytes # (1.0-4.8) k/uL Monocytes # (0-1.0) k/uL Eosinophils # (0-0.7) k/uL Basophils # (0-0.2) k/uL Hypochromasia Macrocytosis VBG pH (7.31-7.41) VBG pCO2 (37-51) mmHg VBG HCO3 (24-28) mmol/L Sodium (137-145) mmol/L Potassium (3.5-5.1) mmol/L Chloride (98-107) mmol/L Carbon Dioxide (22-30) mmol/L Anion Gap mmol/L BUN (7-17) mg/dL Creatinine (0.52-1.04) mg/dL Est GFR (CKD-EPI)AfAm (>60 ml/min/1.73 sqM) Est GFR (CKD-EPI)NonAf (>60 ml/min/1.73 sqM) Glucose (74-99) mg/dL POC Glucose (mg/dL) >600 H (75-99) mg/dL POC Glu Client Service Associate ID Laura Castelan Plasma Lactic Acid [place] (0.7-2.0) mmol/L Calcium (8.4-10.2) mg/dL Total Bilirubin (0.2-1.3) mg/dL AST (14-36) U/L ALT (4-34) U/L Alkaline Phosphatase (38-126) U/L Troponin I <0.012 (0.000-0.034) ng/mL Total Protein (6.3-8.2) g/dL Albumin (3.5-5.0) g/dL Lipase (23-300) U/L Urine Color Urine Appearance (Clear) Urine pH (5.0-8.0) Ur Specific [place] (1.001-1.035) Urine Protein (Negative) Urine Glucose (UA) (Negative) Urine Ketones (Negative) Urine Blood (Negative) Urine Nitrite (Negative) Urine Bilirubin (Negative) Urine Urobilinogen (<2.0) mg/dL Ur Leukocyte Esterase (Negative) Acetone, Qual Positive (Negative) 06/01/19 06/01/19 06/01/19 Range/Units 11:10 11:10 12:38 WBC (3.8-10.6) k/uL RBC (3.80-5.40) m/uL Hgb (11.4-16.0) gm/dL Hct (34.0-46.0) % MCV (80.0-100.0) fL MCH (25.0-35.0) pg MCHC (31.0-37.0) g/dL RDW (11.5-15.5) % Plt Count (150-450) k/uL Neutrophils % % Lymphocytes % % Monocytes % % Eosinophils % % Basophils % % Neutrophils # (1.3-7.7) k/uL Lymphocytes # (1.0-4.8) k/uL Monocytes # (0-1.0) k/uL Eosinophils # (0-0.7) k/uL Basophils # (0-0.2) k/uL Hypochromasia Macrocytosis VBG pH 7.21 L (7.31-7.41) VBG pCO2 18 L* (37-51) mmHg VBG HCO3 7 L* (24-28) mmol/L Sodium (137-145) mmol/L Potassium (3.5-5.1) mmol/L Chloride (98-107) mmol/L Carbon Dioxide (22-30) mmol/L Anion Gap mmol/L BUN (7-17) mg/dL Creatinine (0.52-1.04) mg/dL Est GFR (CKD-EPI)AfAm (>60 ml/min/1.73 sqM) Est GFR (CKD-EPI)NonAf (>60 ml/min/1.73 sqM) Glucose (74-99) mg/dL POC Glucose (mg/dL) >600 H (75-99) mg/dL POC Glu Client Service Associate ID Nadya Kim Plasma Lactic Acid [place] (0.7-2.0) mmol/L Calcium (8.4-10.2) mg/dL Total Bilirubin (0.2-1.3) mg/dL AST (14-36) U/L ALT (4-34) U/L Alkaline Phosphatase (38-126) U/L Troponin I (0.000-0.034) ng/mL Total Protein (6.3-8.2) g/dL Albumin (3.5-5.0) g/dL Lipase (23-300) U/L Urine Color Light Yellow Urine Appearance Clear (Clear) Urine pH 5.0 (5.0-8.0) Ur Specific [place] 1.019 (1.001-1.035) Urine Protein Negative (Negative) Urine Glucose (UA) 4+ H (Negative) Urine Ketones 3+ H (Negative) Urine Blood Negative (Negative) Urine Nitrite Negative (Negative) Urine Bilirubin Negative (Negative) Urine Urobilinogen <2.0 (<2.0) mg/dL Ur Leukocyte Esterase Negative (Negative) Acetone, Qual (Negative) Disposition Clinical Impression: Diabetic foot infection, Diabetic ketoacidosis Disposition: ADMITTED IP TO THIS HOSP Condition: Serious Is patient prescribed a controlled substance at d/c from ED?: No
[2019-06-01 14:04] LABS: Albumin 3.8 g/dL (3.5-5.0); Calcium 9.4 mg/dL (8.4-10.2); Potassium 4.7 mmol/L (3.5-5.1); Total Bilirubin 0.4 mg/dL (0.2-1.3); Total Protein 7.1 g/dL (6.3-8.2)
--- NOTE | 2019-06-01 14:46 | XR ---
EXAMINATION TYPE: XR foot complete RT DATE OF EXAM: 06/01/2019 COMPARISON: 05/17/2019 HISTORY: 58-year-old female pain and chronic infection TECHNIQUE: 3 views FINDINGS: Partial great toe amputation at the level of the proximal phalangeal neck. Stable appearance to the o steotomy margin. Additional partial amputation of the fifth toe just beyond the proximal phalangeal b ase. Again, stable appearance to the osteotomy margin. Prior second toe amputation. Subchondral cystic change redemonstrated within the second metatarsal he ad. Suspects subtle early developing heterotopic ossification. Suspect a retained needle fragment measuring 8 mm long within the plantar soft tissues at the level o f the fourth proximal phalanx. Medial and lateral ulcers at the mid/forefoot level. Annual lytic destruction along the lateral aspec t of the fifth metatarsal head and neck. IMPRESSION: 1. Medial and lateral soft tissue ulcers at the mid/forefoot level. There is new underlying lytic laura truction involving the lateral aspect of the fifth metatarsal head and neck compatible with osteomyel itis. 2. Previous partial great toe and fifth toe amputations and previous complete second toe amputation. The osteotomy margins appear relatively similar to 05/17/2019 arguing against osteomyelitis at these sites.
[2019-06-01 14:51] LABS: Glucose,Whole Blood 531 mg/dL (75-99)
[2019-06-01] MEDS ORDERED: LEVOFLOXACIN 750MG-D5W PMX 750 MG in DEXTROSE/WATER 1 150ML.BAG IVPB SCH (15:00)
[2019-06-01 15:14] LABS: Glucose,Whole Blood 507 mg/dL (75-99)
[2019-06-01 16:14] LABS: Glucose,Whole Blood 412 mg/dL (75-99)
[2019-06-01] MEDS ORDERED: ONDANSETRON 4 MG/2 ML VIAL IVP PRN (17:09)
[2019-06-01 17:25] LABS: Glucose,Whole Blood 454 mg/dL (75-99)
--- NOTE | 2019-06-01 17:39 | P.CNPUL ---
History of Present Illness Consult date: 06/01/19 Reason for consult: dyspnea, COPD Chief complaint: Osteomyelitis and DKA History of present illness: 58-year-old female patient well-known to me with extensive vascular history including coronary artery disease, CHF, COPD, type 2 diabetes, CVA with right- sided hemiparesis presents to the chief complaint nausea vomiting diarrhea the last 3 days. Patient has caregiver with her which provides much of history. She reports the patient has had very high sugars, nausea vomiting diarrhea last 3 days. Patient complains some epigastric abdominal pain. Denies any upper respiratory symptoms, cough, congestion. Denies any chest pain or shortness of breath. Patient does have a chronic wound of her right foot for she is present Bactrim has been following up with the wound clinic. Review of the data revealed that patient has profound metabolic acidosis with a stage III chronic renal failure and x-ray of the foot consistent consistent with osteomyelitis of the fifth metatarsal bone Review of Systems All systems: negative Past Medical History Past Medical History: Asthma, Coronary Artery Disease (CAD), Chest Pain / Angina, Heart Failure, COPD, CVA/TIA, Diabetes Mellitus, Deep Vein Thrombosis (DVT), Eye Disorder, GERD/Reflux, Hyperlipidemia, Hypertension, Myocardial Infarction ([place]), Neurologic Disorder, Osteoarthritis (OA), Pneumonia, Renal Disease Additional Past Medical History / Comment(s): IDDM (brittle), DKAs, neuropathy bilateral hands/feet, retinopathy bilateral eyes, cellulitis R foot, R great toe and 2nd toe infections/amputations, current wound R foot-being seen in [facility], renal failure, anemia, CVAs with L sided paralysis, headaches started after CVAs, brain lesions, DVT R axillae, low back pain, varicosities, seizure many years ago (2001), hypothyroid, constipation, bilateral tinnitis occasionally, sinus problems. Last Myocardial Infarction Date:: 2011 History of Any Multi-Drug Resistant Organisms: MRSA Date of last positivie culture/infection: 09/06/17 MDRO Source:: Right Foot Past Surgical History: Appendectomy, Section, Cholecystectomy, Heart Catheterization With Stent, Hysterectomy, Orthopedic Surgery Additional Past Surgical History / Comment(s): PCI with multiple stents, R great toe and 2nd toe amps, debridements R foot ulcer, L shoulder surgery to remove bone, bronchoscopy, EGD, colonoscopy, R arm port since removed, bilateral cataract removals/lens implants. Past Anesthesia/Blood Transfusion Reactions: No Reported Reaction Additional Past Anesthesia/Blood Transfusion Reaction / Comment(s): HX OF BLOOD TRANSFUSION- NO REACTION Date of Last Stent Placement:: July 2012 Smoking Status: Former smoker - Past Family History Father Family Medical History: Unable to Obtain, Coronary Artery Disease (CAD), Diabetes Mellitus Mother Family Medical History: COPD Medications and Allergies Home Medications Medication Instructions Recorded Confirmed Type Albuterol Inhaler [Ventolin Hfa 2 puff INHALATION RT-Q4H PRN 07/19/15 06/01/19 History Inhaler] Aspirin EC [Ecotrin Low Dose] 81 mg PO DAILY 07/19/15 06/01/19 History Famotidine [Pepcid] 20 mg PO DAILY 07/19/15 06/01/19 History Valproic Acid [Depakene] 250 mg PO DAILY 07/19/15 06/01/19 History Ergocalciferol [Vitamin D2 50,000 unit PO SA 03/05/16 06/01/19 History (DRISDOL)] HYDROcodone/APAP 10-325MG [[place] 1 tab PO Q6H PRN 10/03/16 06/01/19 History 10-325] DULoxetine HCL [Cymbalta] 60 mg PO DAILY 02/16/17 06/01/19 History Ferrous Sulfate [Iron (65 MG 325 mg PO DAILY 02/16/17 06/01/19 History Elemental)] ALPRAZolam [Xanax] 1 mg PO Q8H PRN 02/19/17 06/01/19 History Ondansetron [Zofran] 4 mg PO DAILY PRN 09/06/17 06/01/19 History Atorvastatin [Lipitor] 20 mg PO DAILY 12/28/18 06/01/19 History QUEtiapine FUMARATE [SEROquel] 25 mg PO BID 12/28/18 06/01/19 History QUEtiapine [SEROquel] 100 mg PO HS 12/28/18 06/01/19 History INSULIN LISPRO (humaLOG) [humaLOG] 6 units SQ AC-TID 06/01/19 06/01/19 History Insulin Glargine [Lantus] 25 unit SQ HS 06/01/19 06/01/19 History Vitamin B Complex With Vit C 1 tab PO DAILY 06/01/19 06/01/19 History Allergies Allergy/AdvReac Type Severity Reaction Status Date / Time Barbiturates Allergy Rash/Hives Verified 06/01/19 13:39 cephalexin monohydrate Allergy Rash/Hives Verified 06/01/19 13:39 [From Keflex] morphine Allergy Rash/Hives Verified 06/01/19 13:39 Penicillins Allergy Rash/Hives Verified 06/01/19 13:39 phenobarbital Allergy Swelling Verified 06/01/19 13:39 venom-honey bee Allergy Swelling Verified 06/01/19 13:39 [bee venom (honey bee)] amlodipine besylate AdvReac Vomiting Verified 06/01/19 13:39 [From Norvasc] Physical Exam Vitals: Vital Signs Temp Pulse Resp BP Pulse Ox 06/01/19 17:00 105 H 18 125/80 96 06/01/19 16:00 98.4 F 106 H 15 125/80 98 06/01/19 15:43 102 H 11 L 161/74 99 06/01/19 14:26 98.4 F 107 H 18 132/58 97 06/01/19 13:51 104 H 18 114/49 97 06/01/19 12:36 105 H 18 136/58 97 06/01/19 09:54 98.4 F 100 20 136/58 98 Intake and Output 06/01/19 06/01/19 06/01/19 06:59 14:59 22:59 Intake Total 600 Balance 600 Intake: IV 600 Sodium Chloride 0.9% 1, 600 000 ml @ 200 mls/hr IV . Q5H [facility] Rx#:[id number] Other: Voiding Method Bedpan Diaper # Voids 1 Weight 54.431 kg - Constitutional General appearance: disheveled, mild distress - EENT Eyes: EOMI, PERRLA, poor dentition, normal appearance ENT: normal oropharynx Ears: bilateral: normal - Neck Neck: normal ROM Carotids: bilateral: upstroke normal Thyroid: bilateral: normal size - Respiratory Respiratory: bilateral: CTA - Cardiovascular Rhythm: regular Heart sounds: normal: S1, S2 - Gastrointestinal General gastrointestinal: decreased bowel sounds, distended, soft - Integumentary Integumentary: decreased turgor - Neurologic Neurologic: CNII-XII intact - Musculoskeletal Musculoskeletal: generalized weakness, right sided weakness - Psychiatric Psychiatric: A&O x's 3, appropriate affect Prior surgery of the right foot with osteomyelitis finding as noted above Results - Laboratory Findings CBC and BMP: 06/01/19 09:53 06/01/19 13:24 Abnormal lab findings: Abnormal Labs 06/01/19 06/01/19 06/01/19 09:53 09:53 09:53 RBC 3.61 L Hgb 10.4 L MCV 102.8 H D MCHC 28.0 L Lymphocytes # 0.8 L VBG pH VBG pCO2 VBG HCO3 Potassium 5.8 H Chloride Carbon Dioxide 8 L* BUN 56 H Creatinine 1.70 H Glucose 829 H* POC Glucose (mg/dL) Plasma Lactic Acid Conrado 2.4 H* Lipase 15 L Urine Glucose (UA) Urine Ketones 06/01/19 06/01/19 06/01/19 10:18 11:10 11:10 RBC Hgb MCV MCHC Lymphocytes # VBG pH 7.21 L VBG pCO2 18 L* VBG HCO3 7 L* Potassium Chloride Carbon Dioxide BUN Creatinine Glucose POC Glucose (mg/dL) >600 H Plasma Lactic Acid Conrado Lipase Urine Glucose (UA) 4+ H Urine Ketones 3+ H 06/01/19 06/01/19 06/01/19 12:38 13:24 13:41 RBC Hgb MCV MCHC Lymphocytes # VBG pH VBG pCO2 VBG HCO3 Potassium Chloride 109 H Carbon Dioxide 10 L BUN 55 H Creatinine 1.66 H Glucose 645 H* POC Glucose (mg/dL) >600 H 575 H Plasma Lactic Acid Conrado Lipase Urine Glucose (UA) Urine Ketones 06/01/19 06/01/19 06/01/19 14:39 15:03 16:03 RBC Hgb MCV MCHC Lymphocytes # VBG pH VBG pCO2 VBG HCO3 Potassium Chloride Carbon Dioxide BUN Creatinine Glucose POC Glucose (mg/dL) 531 H 507 H 412 H Plasma Lactic Acid Conrado Lipase Urine Glucose (UA) Urine Ketones 06/01/19 17:13 RBC Hgb MCV MCHC Lymphocytes # VBG pH VBG pCO2 VBG HCO3 Potassium Chloride Carbon Dioxide BUN Creatinine Glucose POC Glucose (mg/dL) 454 H Plasma Lactic Acid Conrado Lipase Urine Glucose (UA) Urine Ketones - Diagnostic Findings Comments: X-ray of abdomen and foot reviewed Assessment and Plan Assessment: Severe sepsis Osteomyelitis of the fifth metatarsal bone Diabetic ketoacidosis Severe type 1 diabetes with complications Mild hyperkalemia Peripheral vascular disease Plan: The ICU staff could not get a IV need to put a central line Insulin drip IV fluids Broad-spectrum antibiotics with IV vancomycin Supportive care Monitor electrolytes and potassium Monitor renal functions Time with Patient: Greater than 30
[2019-06-01 18:19] LABS: Glucose,Whole Blood 406 mg/dL (75-99)
[2019-06-01 19:08] LABS: Glucose,Whole Blood 380 mg/dL (75-99)
[2019-06-01] MEDS ORDERED: TRIMETHOBENZAMIDE 300 MG CAP PO PRN (19:22)
[2019-06-01 19:49] LABS: Calcium 9.1 mg/dL (8.4-10.2); Potassium 4.7 mmol/L (3.5-5.1)
[2019-06-01 20:28] LABS: Glucose,Whole Blood 351 mg/dL (75-99)
[2019-06-01] MEDS: HEPARIN SODIUM,PORCINE 5,000 UNIT/ML 1 ML VIAL SQ SCH (20:33)
[2019-06-01] MEDS ORDERED: FAMOTIDINE 20 MG TAB PO SCH (21:00)
[2019-06-01 21:05] LABS: Glucose,Whole Blood 313 mg/dL (75-99)
[2019-06-01] MEDS: FAMOTIDINE 20 MG/2 ML VIAL IV SCH (21:11)
[2019-06-01] MEDS ORDERED: D5-0.45% NACL WITH KCL 20MEQ/L 1,000 ML IV SCH (22:15)
[2019-06-01 22:19] LABS: Glucose,Whole Blood 257 mg/dL (75-99)
--- NOTE | 2019-06-01 22:41 | HP ---
HISTORY AND PHYSICAL Melva Jackson is a 58-year-old female with a history of diabetes mellitus, who presented to the ER at [facility] with nausea and vomiting associated with diarrhea for about 3 days. She was subsequently seen in the ER and admitted for further evaluation and management. She has a history of diabetes mellitus, CVA, history of chronic wound in the right leg, history of asthma, coronary artery disease, congestive heart failure, anemia, appendectomy, cholecystectomy, cardiac cath with stent placement, amputation of the right 2nd toe, anxiety, depression. FAMILY HISTORY: Positive for coronary artery disease in her father. COPD in her mother. SOCIAL HISTORY: The patient is a former smoker. Does not drink alcohol excessively. MEDICATIONS: Prior to admission were vitamin B complex, Depakene, Seroquel, Zofran, Lantus insulin, Humalog, [place], ferrous sulfate, Pepcid, Drisdol, Cymbalta, Lipitor, Ecotrin, Ventolin HFA and Xanax. REVIEW OF SYSTEMS: Noncontributory. PHYSICAL EXAMINATION: Patient was lying in bed. Her blood pressure is 118/74, respiratory rate of 12, pulse rate 105, temperature 98.4 degrees Fahrenheit. HEENT reveals pupils are equal. No jugular venous distention. Chest reveals no wheeze. Cardiovascular system is S1, S2. No S3, no S4. No murmurs. Abdomen is soft. There is no edema. There are 2 wounds on the right foot, 1 lateral and 1 medial. LABS: Revealed a white count of 8.4, hemoglobin of 10.4. Venous blood gas, pH of 7.21 with a bicarb of 7. On the electrolytes, sodium is 145, potassium 4.7, chloride 109, bicarb 10, BUN 55, creatinine 1.66, glucose 645. Acetone was positive. UA showed 3+ glucose with 3+ ketones. Foot x-ray showed medial and lateral soft tissue ulcers with new underlying lytic destruction involving the lateral aspect of the 5th metatarsal head and neck compatible with osteomyelitis. Previous partial great toe and 5th toe amputations, previous complete 2nd toe amputation. IMPRESSION: At this time: 1. Diabetic ketoacidosis. 2. Hyperosmolar state. 3. Right wound infection with osteomyelitis. At this point in time, keep her in the ICU on DKA protocol. Keep her on Levaquin and vancomycin until seen by ID. Keep her on GI and DVT prophylaxis. Depending on how she does, we shall make further changes to her care. She was counseled regarding her condition and this approach and has a fair understanding of our recommendations. MMODL / IJN: [id number] /
[2019-06-01] MEDS: ONDANSETRON 4 MG/2 ML VIAL IVP SCH (22:58)
[2019-06-01 23:11] LABS: Glucose,Whole Blood 227 mg/dL (75-99)
[2019-06-02 00:25] LABS: Glucose,Whole Blood 205 mg/dL (75-99)
[2019-06-02 00:28] LABS: Calcium 9.1 mg/dL (8.4-10.2); Potassium 4.1 mmol/L (3.5-5.1)
[2019-06-02] MEDS: INSULIN DETEMIR (LEVEMIR) 100 UNIT/ML SYR SQ SCH ×2 (01:22→20:38)
[2019-06-02] MEDS: SODIUM CHLORIDE 0.45% 1,000 ML IV SCH ×2 (01:23→23:17)
[2019-06-02 02:16] LABS: Glucose,Whole Blood 159 mg/dL (75-99)
[2019-06-02] MEDS ORDERED: PROCHLORPERAZINE SUPPOSITORY 25 MG SUPP RECTAL PRN (03:43)
[2019-06-02] MEDS: ONDANSETRON 4 MG/2 ML VIAL IVP SCH ×3 (05:13→17:15)
[2019-06-02 05:57] LABS: Calcium 9.4 mg/dL (8.4-10.2); Potassium 4.2 mmol/L (3.5-5.1)
[2019-06-02] MEDS ORDERED: HYDROcodone/APAP 10-325MG 1 EACH TAB PO PRN (06:28)
[2019-06-02] MEDS: INSULIN ASPART (NovoLOG) 100 UNIT/ML VIAL SQ SCH ×4 (06:34→20:36)
[2019-06-02 06:45] LABS: Glucose,Whole Blood 79 mg/dL (75-99)
[2019-06-02] MEDS: HEPARIN SODIUM,PORCINE 5,000 UNIT/ML 1 ML VIAL SQ SCH ×2 (07:57→20:36)
[2019-06-02] MEDS: FAMOTIDINE 20 MG/2 ML VIAL IV SCH (07:57)
--- NOTE | 2019-06-02 08:17 | CONS ---
CONSULTATION DATE OF SERVICE: 06/01/2019 REASON FOR CONSULTATION: Diabetic foot infection. HISTORY OF PRESENT ILLNESS: Patient is a 58-year-old female with a past medical history significant for diabetes mellitus. The patient recently did have amputation of the right big toe, distal phalanx for a diabetic foot infection by Dr. Cadena. The patient apparently did have a problem keeping her foot straight, keep on blocking her foot and apparently did develop a wound on both the medial as well as the lateral aspect off the right foot with the patient has for a couple of weeks now. The patient local wound care has been [facility] and follows with [facility]. Cad[facility]. The patient presenting to the [facility] ER this morning with chief complaints of nausea, vomiting, diarrhea that has been going on for the last 3 days. The patient's sugar had been running high. The patient denies significant abdominal pain, though and denies having any blood or any mucus in the stool. The patient on arrival to the ER has been afebrile. The patient has a normal white count of 8.4. This patient's blood sugar was more than 600. She has been diagnosed with diabetic ketoacidosis and has been admitted to the ICU. I was asked to see the patient regarding right diabetic foot wound and need for antibiotic therapy. REVIEW OF SYSTEM: Positive points have been mentioned in HPI. Rest of systems are negative. Past medical history significant for asthma, coronary artery disease, heart failure with CVA, TIA, diabetes mellitus is severe deflated, hypertension, hyperlipidemia, pneumonia, insufficiency. PAST SURGICAL HISTORY: Appendectomy, , cholecystectomy, PTCA with stent, hysterectomy. SOCIAL HISTORY: Remote history of smoking, no drinking or drug use. FAMILY HISTORY: Father with history of diabetes and coronary artery disease. Mother history of COPD. ALLERGIES: Multiple medication PENICILLIN, PHENOBARBITAL, AMLODIPINE. PHYSICAL EXAMINATION: On examination, her blood pressure is 125/80 with a pulse of 105, temperature 98.4, she is 96% on room air. General description is a middle-aged female, lying in bed in no distress. No tachypnea or accessory muscle for respiration use. HEENT: Shows pallor, no scleral icterus. Oral mucosa is dry. No pharyngeal erythema or thrush. NECK: Trachea central, no thyromegaly. LUNGS: Unlabored breathing, clear to auscultation anteriorly. No wheeze or crackle, heart S1, S2. Regular rate and rhythm. ABDOMEN: Soft, no tenderness. EXTREMITIES: No edema of the feet, examination of right foot both on the medial and lateral border did have a wound with slough tissue. There is no significant guarding, swelling, redness or any drainage. NEUROLOGICAL: Patient is awake, alert, oriented, mood and affect normal. LABS: Hemoglobin is 10.4, white count 8.4, BUN of 56, creatinine 1.66, potassium is 4.7, liver exams are normal. X-rays of the foot, medial and lateral soft tissue at the mid forefront level with new underlying lytic destruction involving the lateral aspect of the fifth metatarsal head, compatible with osteomyelitis. DIAGNOSTIC IMPRESSION AND PLAN: Patient presenting to the hospital with nausea and vomiting with concern for underlying DKA in this patient who did have a right diabetic foot wound on the right foot, medial and lateral border, now with abnormal x-ray is suspicious for osteomyelitis. Recent cultures were positive for strep. This patient currently do have allergies both to PENICILLIN as well as CEPHALEXIN, limit the number of antibiotics that could be safely used. PLAN: 1. Local wound care with Med[place] followed by moist dressing and keep the area off the pressure. 2. Vancomycin pharmacy to dose target of 15, will watch kidney function closely. 3. Will follow up on clinical condition and culture to further adjust medication if needed. Thank you for this consultation. Will follow the patient along with you. MMODL / IJN: [id number] /
--- NOTE | 2019-06-02 08:21 | P.PN ---
Subjective Progress Note Date: 06/02/19 Principal diagnosis: Severe sepsis Osteomyelitis of the right fifth metatarsal bone Diabetic ketoacidosis Severe type 1 diabetes with complications Mild hyperkalemia Peripheral vascular disease 06/02/2019, patient seen and evaluated examined she is appears more comfortable diabetic ketoacidosis had resolved patient is off of insulin drip she cannot take much by mouth due to her ongoing intermittent nausea and emesis she is on Zofran however, she is complaining of pain in the right foot for which she is started on low-dose Toradol, overall appears more composed labs reviewed medications reviewed care plan discussed with the staff at length patient is appear more composed today Objective - Vital Signs Vital signs: Vital Signs Temp 97.4 F L 06/02/19 08:00 Pulse 108 H 06/02/19 08:00 Resp 20 06/02/19 08:00 BP 136/93 06/02/19 08:00 Pulse Ox 96 06/02/19 08:00 Intake & Output 06/01/19 06/02/19 06/02/19 18:59 06:59 18:59 Intake Total 800 1669.221 100 Output Total 931 200 Balance 800 738.221 -100 Weight 54.431 kg 57.5 kg Intake: IV 800 1600 100 D5-0.45% NaCl with KCl 450 20Meq/l 1,000 ml @ 150 mls/hr IV .[id number] [facility] Rx# :[id number] Levofloxacin 750Mg-D5w 100 Pmx 750 mg In Dextrose/ Water 1 150ml.bag @ 100 mls/hr IVPB Q24H [facility] Rx#: [id number] Sodium Chloride 0.45% 1, 250 100 000 ml @ 50 mls/hr IV . Q20H [facility] Rx#:[id number] Sodium Chloride 0.9% 1, 800 800 000 ml @ 200 mls/hr IV . Q5H [facility] Rx#:[id number] Intake, IV Titration 69.221 Amount Insulin Regular 100 unit 69.221 In Sodium Chloride 0.9% 100 ml @ 0.1 UNITS/KG/HR 5.498 mls/hr IV .[id number] [facility] Rx#:[id number] Output: Urine 930 200 Stool 1 Other: Voiding Method Bedpan Indwelling Catheter Indwelling Catheter Diaper # Voids 0 1 - Exam - Constitutional General appearance: disheveled, mild distress - EENT Eyes: EOMI, PERRLA, poor dentition, normal appearance ENT: normal oropharynx Ears: bilateral: normal - Neck Neck: normal ROM Carotids: bilateral: upstroke normal Thyroid: bilateral: normal size - Respiratory Respiratory: bilateral: CTA - Cardiovascular Rhythm: regular Heart sounds: normal: S1, S2 - Gastrointestinal General gastrointestinal: decreased bowel sounds, distended, soft - Integumentary Integumentary: decreased turgor - Neurologic Neurologic: CNII-XII intact - Musculoskeletal Musculoskeletal: generalized weakness, right sided weakness - Psychiatric Psychiatric: A&O x's 3, appropriate affect Prior surgery of the right foot with osteomyelitis finding as noted above - Labs CBC & Chem 7: 06/01/19 09:53 06/02/19 05:18 Labs: Abnormal Lab Results - Last 24 Hours (Table) 06/01/19 06/01/19 06/01/19 Range/Units 09:53 09:53 09:53 RBC 3.61 L (3.80-5.40) m/uL Hgb 10.4 L (11.4-16.0) gm/dL MCV 102.8 H D (80.0-100.0) fL MCHC 28.0 L (31.0-37.0) g/dL Lymphocytes # 0.8 L (1.0-4.8) k/uL VBG pH (7.31-7.41) VBG pCO2 (37-51) mmHg VBG HCO3 (24-28) mmol/L Sodium (137-145) mmol/L Potassium 5.8 H (3.5-5.1) mmol/L Chloride (98-107) mmol/L Carbon Dioxide 8 L* (22-30) mmol/L BUN 56 H (7-17) mg/dL Creatinine 1.70 H (0.52-1.04) mg/dL Glucose 829 H* (74-99) mg/dL POC Glucose (mg/dL) (75-99) mg/dL Plasma Lactic Acid Conrado 2.4 H* (0.7-2.0) mmol/L Phosphorus (2.5-4.5) mg/dL Lipase 15 L (23-300) U/L Urine Glucose (UA) (Negative) Urine Ketones (Negative) 06/01/19 06/01/19 06/01/19 Range/Units 10:18 11:10 11:10 RBC (3.80-5.40) m/uL Hgb (11.4-16.0) gm/dL MCV (80.0-100.0) fL MCHC (31.0-37.0) g/dL Lymphocytes # (1.0-4.8) k/uL VBG pH 7.21 L (7.31-7.41) VBG pCO2 18 L* (37-51) mmHg VBG HCO3 7 L* (24-28) mmol/L Sodium (137-145) mmol/L Potassium (3.5-5.1) mmol/L Chloride (98-107) mmol/L Carbon Dioxide (22-30) mmol/L BUN (7-17) mg/dL Creatinine (0.52-1.04) mg/dL Glucose (74-99) mg/dL POC Glucose (mg/dL) >600 H (75-99) mg/dL Plasma Lactic Acid Conrado (0.7-2.0) mmol/L Phosphorus (2.5-4.5) mg/dL Lipase (23-300) U/L Urine Glucose (UA) 4+ H (Negative) Urine Ketones 3+ H (Negative) 06/01/19 06/01/19 06/01/19 Range/Units 12:38 13:24 13:41 RBC (3.80-5.40) m/uL Hgb (11.4-16.0) gm/dL MCV (80.0-100.0) fL MCHC (31.0-37.0) g/dL Lymphocytes # (1.0-4.8) k/uL VBG pH (7.31-7.41) VBG pCO2 (37-51) mmHg VBG HCO3 (24-28) mmol/L Sodium (137-145) mmol/L Potassium (3.5-5.1) mmol/L Chloride 109 H (98-107) mmol/L Carbon Dioxide 10 L (22-30) mmol/L BUN 55 H (7-17) mg/dL Creatinine 1.66 H (0.52-1.04) mg/dL Glucose 645 H* (74-99) mg/dL POC Glucose (mg/dL) >600 H 575 H (75-99) mg/dL Plasma Lactic Acid Conrado (0.7-2.0) mmol/L Phosphorus (2.5-4.5) mg/dL Lipase (23-300) U/L Urine Glucose (UA) (Negative) Urine Ketones (Negative) 06/01/19 06/01/19 06/01/19 Range/Units 14:39 15:03 16:03 RBC (3.80-5.40) m/uL Hgb (11.4-16.0) gm/dL MCV (80.0-100.0) fL MCHC (31.0-37.0) g/dL Lymphocytes # (1.0-4.8) k/uL VBG pH (7.31-7.41) VBG pCO2 (37-51) mmHg VBG HCO3 (24-28) mmol/L Sodium (137-145) mmol/L Potassium (3.5-5.1) mmol/L Chloride (98-107) mmol/L Carbon Dioxide (22-30) mmol/L BUN (7-17) mg/dL Creatinine (0.52-1.04) mg/dL Glucose (74-99) mg/dL POC Glucose (mg/dL) 531 H 507 H 412 H (75-99) mg/dL Plasma Lactic Acid Conrado (0.7-2.0) mmol/L Phosphorus (2.5-4.5) mg/dL Lipase (23-300) U/L Urine Glucose (UA) (Negative) Urine Ketones (Negative) 06/01/19 06/01/19 06/01/19 Range/Units 17:13 18:08 18:56 RBC (3.80-5.40) m/uL Hgb (11.4-16.0) gm/dL MCV (80.0-100.0) fL MCHC (31.0-37.0) g/dL Lymphocytes # (1.0-4.8) k/uL VBG pH (7.31-7.41) VBG pCO2 (37-51) mmHg VBG HCO3 (24-28) mmol/L Sodium (137-145) mmol/L Potassium (3.5-5.1) mmol/L Chloride (98-107) mmol/L Carbon Dioxide (22-30) mmol/L BUN (7-17) mg/dL Creatinine (0.52-1.04) mg/dL Glucose (74-99) mg/dL POC Glucose (mg/dL) 454 H 406 H 380 H (75-99) mg/dL Plasma Lactic Acid Conrado (0.7-2.0) mmol/L Phosphorus (2.5-4.5) mg/dL Lipase (23-300) U/L Urine Glucose (UA) (Negative) Urine Ketones (Negative) 06/01/19 06/01/19 06/01/19 Range/Units 19:19 20:17 20:54 RBC (3.80-5.40) m/uL Hgb (11.4-16.0) gm/dL MCV (80.0-100.0) fL MCHC (31.0-37.0) g/dL Lymphocytes # (1.0-4.8) k/uL VBG pH (7.31-7.41) VBG pCO2 (37-51) mmHg VBG HCO3 (24-28) mmol/L Sodium 148 H (137-145) mmol/L Potassium (3.5-5.1) mmol/L Chloride 115 H (98-107) mmol/L Carbon Dioxide 15 L (22-30) mmol/L BUN 45 H (7-17) mg/dL Creatinine 1.24 H (0.52-1.04) mg/dL Glucose 401 H (74-99) mg/dL POC Glucose (mg/dL) 351 H 313 H (75-99) mg/dL Plasma Lactic Acid Conrado (0.7-2.0) mmol/L Phosphorus (2.5-4.5) mg/dL Lipase (23-300) U/L Urine Glucose (UA) (Negative) Urine Ketones (Negative) 06/01/19 06/01/19 06/01/19 Range/Units 22:08 22:59 23:32 RBC (3.80-5.40) m/uL Hgb (11.4-16.0) gm/dL MCV (80.0-100.0) fL MCHC (31.0-37.0) g/dL Lymphocytes # (1.0-4.8) k/uL VBG pH (7.31-7.41) VBG pCO2 (37-51) mmHg VBG HCO3 (24-28) mmol/L Sodium 149 H (137-145) mmol/L Potassium (3.5-5.1) mmol/L Chloride 118 H (98-107) mmol/L Carbon Dioxide (22-30) mmol/L BUN 39 H (7-17) mg/dL Creatinine 1.08 H (0.52-1.04) mg/dL Glucose 209 H (74-99) mg/dL POC Glucose (mg/dL) 257 H 227 H (75-99) mg/dL Plasma Lactic Acid [place] (0.7-2.0) mmol/L Phosphorus (2.5-4.5) mg/dL Lipase (23-300) U/L Urine Glucose (UA) (Negative) Urine Ketones (Negative) 06/02/19 06/02/19 06/02/19 Range/Units 00:13 02:05 05:18 RBC (3.80-5.40) m/uL Hgb (11.4-16.0) gm/dL MCV (80.0-100.0) fL MCHC (31.0-37.0) g/dL Lymphocytes # (1.0-4.8) k/uL VBG pH (7.31-7.41) VBG pCO2 (37-51) mmHg VBG HCO3 (24-28) mmol/L Sodium 150 H (137-145) mmol/L Potassium (3.5-5.1) mmol/L Chloride 118 H (98-107) mmol/L Carbon Dioxide (22-30) mmol/L BUN 33 H (7-17) mg/dL Creatinine (0.52-1.04) mg/dL Glucose 102 H (74-99) mg/dL POC Glucose (mg/dL) 205 H 159 H (75-99) mg/dL Plasma Lactic Acid Conrado (0.7-2.0) mmol/L Phosphorus 2.0 L (2.5-4.5) mg/dL Lipase (23-300) U/L Urine Glucose (UA) (Negative) Urine Ketones (Negative) Assessment and Plan Assessment: Severe sepsis Osteomyelitis of the fifth metatarsal bone Diabetic ketoacidosis Severe type 1 diabetes with complications Poorly controlled diabetes mellitus Mild hyperkalemia Peripheral vascular disease Plan: The ICU staff could not get a IV need to put a central line Insulin drip IV fluids Broad-spectrum antibiotics with IV vancomycin Supportive care Monitor electrolytes and potassium Monitor renal functions Time with Patient: Greater than 30
[2019-06-02] MEDS: KETOROLAC 30 MG/ML 1 ML VIAL IVP PRN ×3 (08:57→22:45)
[2019-06-02 10:20] LABS: Basophils # (A) 0.1 k/uL (0-0.2); Basophils % (A) 1 %; Eosinophils % (A) 0 %; HCT 32.6 % (34.0-46.0); HGB 10.3 gm/dL (11.4-16.0); Hypochromasia Slight; Lymphocytes # (A) 1.3 k/uL (1.0-4.8); Lymphocytes % (A) 10 %; MCH 29.4 pg (25.0-35.0); MCHC 31.6 g/dL (31.0-37.0); Mean Platelet Volume 8.1; Monocytes # (A) 0.5 k/uL (0-1.0); Monocytes % (A) 3 %; Neutrophils # (A) 11.6 k/uL (1.3-7.7); Neutrophils % (A) 86 %; Platelet Count 321 k/uL (150-450); RDW 13.9 % (11.5-15.5); WBC 13.5 k/uL (3.8-10.6)
[2019-06-02 10:27] LABS: MCV 93.2 fL (80.0-100.0)
[2019-06-02] MEDS ORDERED: Phosphorus Replacement Protoco 1 EACH MISC MISCELLANE PRN (10:52)
--- NOTE | 2019-06-02 11:38 | PN ---
PROGRESS NOTE Covering for Dr. Chen. DATE OF SERVICE: 06/02/2019 Patient is a 58-year-old female who is seen sitting up in bed, is awake and alert. Does rock back and forth in the bed. Tells me that the nausea is resolved, however, does have dry heaves while I am doing my assessment. Patient is afebrile, hemodynamically stable, in no acute distress. ON PHYSICAL EXAM: VITAL SIGNS: Temperature 97.4, heart rate is 93, respiratory rate is 59, blood pressure 136/93, O2 saturation 96% on room air. HEENT. Head is normocephalic, atraumatic. Neck is supple. Trachea is midline. LUNGS: With decreased breath sounds. No clear rales or wheezes. HEART: S1, S2 heard. Not tachycardic. ABDOMEN: Soft. Bowel sounds are heard. EXTREMITIES: With no edema to the left lower extremity. Patient does have wounds on the right foot lateral and medial with dressings, which are dry and intact. NEUROLOGIC: Patient is awake and alert. LABS: White count 13.5, hemoglobin is 10.3, hematocrit 32.6 with 321,000 platelets. Sodium is 150, potassium is 4.2, chloride 118, CO2 is 24. Anion gap is 8. BUN is 33, creatinine is 1.02. Glucose is 102. Calcium is 9.4. Phosphorus is 2.0. No new imaging to review. IMPRESSION AT THIS TIME: 1. Diabetic ketoacidosis. 2. Hyperosmolar state. 3. Right wound infection with osteomyelitis. PLAN: Continue current medications, which have been reviewed. Continue IV antibiotics per Infectious Disease. Continue GI and DVT prophylaxis. Replace phosphorus and we will continue to follow patient closely making further changes as necessary. MMODL / IJN: [id number] /
[2019-06-02 12:08] LABS: Glucose,Whole Blood 87 mg/dL (75-99)
[2019-06-02] MEDS: VANCOMYCIN 1,000 MG in SODIUM CHLORIDE 0.9% 250 ML IVPB SCH (12:16)
--- NOTE | 2019-06-02 14:42 | P.GSCN ---
History of Present Illness Consult date: 06/02/19 Reason for Consult: Right foot wounds Requesting physician: Cayden Horne History of present illness: This is a 58-year-old female who follows on an outpatient basis with Dr. Chen. 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 She presented to [facility] emergency room yesterday with complaints of nausea, vomiting, and diarrhea 3 days as well as elevated blood sugars. She was diagnosed with DKA and admitted to the intensive care unit for management. She has been treated in the wound care center by Dr. Cadena for chronic right lower extremity wounds. Foot x-ray completed yesterday demonstrate soft tissue ulcers of the mid and forefoot with new underlying lytic distraction compatible with osteomyelitis. Infectious disease was consulted as well as Dr. Cadena for management. Review of Systems Review of systems was completed and was negative except as noted. Most of ROS was completed with the assistance of the patient's caregiver as the patient is not the best historian - Gastrointestinal Reports as per HPI, Reports diarrhea, Reports nausea, Reports vomiting - Integumentary Reports as per HPI, Reports wounds Past Medical History Past Medical History: Asthma, Coronary Artery Disease (CAD), Chest Pain / Angina, Heart Failure, COPD, CVA/TIA, Diabetes Mellitus, Deep Vein Thrombosis (DVT), Eye Disorder, GERD/Reflux, Hyperlipidemia, Hypertension, Myocardial Infarction (MD), Neurologic Disorder, Osteoarthritis (OA), Pneumonia, Renal Disease Additional Past Medical History / Comment(s): IDDM (brittle), DKAs, neuropathy bilateral hands/feet, retinopathy bilateral eyes, cellulitis R foot, R great toe and 2nd toe infections/amputations, current wound R foot-being seen in [facility], renal failure, anemia, CVAs with L sided paralysis, headaches started after CVAs, brain lesions, DVT R axillae, low back pain, varicosities, seizure many years ago (2001), hypothyroid, constipation, bilateral tinnitis occasionally, sinus problems. Last Myocardial Infarction Date:: 2011 History of Any Multi-Drug Resistant Organisms: MRSA Year Discovered:: 09/06/17 MDRO Source:: Right Foot Past Surgical History: Appendectomy, Section, Cholecystectomy, Heart Catheterization With Stent, Hysterectomy, Orthopedic Surgery Additional Past Surgical History / Comment(s): PCI with multiple stents, R great toe and 2nd toe amps, debridements R foot ulcer, L shoulder surgery to remove bone, bronchoscopy, EGD, colonoscopy, R arm port since removed, bilateral cataract removals/lens implants. Past Anesthesia/Blood Transfusion Reactions: No Reported Reaction Additional Past Anesthesia/Blood Transfusion Reaction / Comm: HX OF BLOOD TRANSFUSION- NO REACTION Date of Last Stent Placement:: July 2012 Smoking Status: Former smoker - Past Family History Father Family Medical History: Unable to Obtain, Coronary Artery Disease (CAD), Genna betes Mellitus Mother Family Medical History: COPD Medications and Allergies Home Medications Medication Instructions Recorded Confirmed Type Albuterol Inhaler [Ventolin Hfa 2 puff INHALATION RT-Q4H PRN 07/19/15 06/01/19 History Inhaler] Aspirin EC [Ecotrin Low Dose] 81 mg PO DAILY 07/19/15 06/01/19 History Famotidine [Pepcid] 20 mg PO DAILY 07/19/15 06/01/19 History Valproic Acid [Depakene] 250 mg PO DAILY 07/19/15 06/01/19 History Ergocalciferol [Vitamin D2 50,000 unit PO SA 03/05/16 06/01/19 History (DRISDOL)] HYDROcodone/APAP 10-325MG [[place] 1 tab PO Q6H PRN 10/03/16 06/01/19 History 10-325] DULoxetine HCL [Cymbalta] 60 mg PO DAILY 02/16/17 06/01/19 History Ferrous Sulfate [Iron (65 MG 325 mg PO DAILY 02/16/17 06/01/19 History Elemental)] ALPRAZolam [Xanax] 1 mg PO Q8H PRN 02/19/17 06/01/19 History Ondansetron [Zofran] 4 mg PO DAILY PRN 09/06/17 06/01/19 History Atorvastatin [Lipitor] 20 mg PO DAILY 12/28/18 06/01/19 History QUEtiapine FUMARATE [SEROquel] 25 mg PO BID 12/28/18 06/01/19 History QUEtiapine [SEROquel] 100 mg PO HS 12/28/18 06/01/19 History INSULIN LISPRO (humaLOG) [humaLOG] 6 units SQ AC-TID 06/01/19 06/01/19 History Insulin Glargine [Lantus] 25 unit SQ HS 06/01/19 06/01/19 History Vitamin B Complex With Vit C 1 tab PO DAILY 06/01/19 06/01/19 History Allergies Allergy/AdvReac Type Severity Reaction Status Date / Time Barbiturates Allergy Rash/Hives Verified 06/01/19 13:39 cephalexin monohydrate Allergy Rash/Hives Verified 06/01/19 13:39 [From Keflex] morphine Allergy Rash/Hives Verified 06/01/19 13:39 Penicillins Allergy Rash/Hives Verified 06/01/19 13:39 phenobarbital Allergy Swelling Verified 06/01/19 13:39 venom-honey bee Allergy Swelling Verified 06/01/19 13:39 [bee venom (honey bee)] amlodipine besylate AdvReac Vomiting Verified 06/01/19 13:39 [From Norvasc] Surgical - Exam Vital Signs Temp Pulse Resp BP Pulse Ox 98.4 F 100 20 136/58 98 06/01/19 09:54 06/01/19 09:54 06/01/19 09:54 06/01/19 09:54 06/01/19 09:54 - General well developed, well nourished, no distress, no pain, chronically ill - Eyes PERRL, normal ocular movement - ENT no hearing loss, poor mcc - Neck no masses, no bruits, trachea midline - Respiratory Lungs sounds diminished bilaterally. Respirations even, nonlabored. Currently on room air with oxygen saturation 96%. No chest wall deformities. No clubbing or cyanosis. - Cardiovascular S1, S2 present. Tachycardic but regular rate and rhythm. Palpable peripheral pulses bilaterally. No edema present. No calf pain or tenderness. - Abdomen Abdomen: soft, non tender, bowel sounds - Genitourinary Deferred - Rectum Deferred - Integumentary Skin is warm and dry. There are 2 wounds to the right foot, see chart for pictures and measurements, there is no drainage or purulence present, both wounds are dry. Surrounding skin is slightly reddened. - Neurologic normal coordination - Musculoskeletal normal posture - Psychiatric oriented to time, oriented to person, oriented to place, speech is normal Results - Labs 06/02/19 08:57 06/02/19 05:18 Abnormal Lab Results - Last 24 Hours (Table) 06/01/19 06/01/19 06/01/19 Range/Units 13:24 14:39 15:03 WBC (3.8-10.6) k/uL RBC (3.80-5.40) m/uL Hgb (11.4-16.0) gm/dL Hct (34.0-46.0) % Neutrophils # (1.3-7.7) k/uL Sodium (137-145) mmol/L Chloride 109 H (98-107) mmol/L Carbon Dioxide 10 L (22-30) mmol/L BUN 55 H (7-17) mg/dL Creatinine 1.66 H (0.52-1.04) mg/dL Glucose 645 H* (74-99) mg/dL POC Glucose (mg/dL) 531 H 507 H (75-99) mg/dL Phosphorus (2.5-4.5) mg/dL 06/01/19 06/01/19 06/01/19 Range/Units 16:03 17:13 18:08 WBC (3.8-10.6) k/uL RBC (3.80-5.40) m/uL Hgb (11.4-16.0) gm/dL Hct (34.0-46.0) % Neutrophils # (1.3-7.7) k/uL Sodium (137-145) mmol/L Chloride (98-107) mmol/L Carbon Dioxide (22-30) mmol/L BUN (7-17) mg/dL Creatinine (0.52-1.04) mg/dL Glucose (74-99) mg/dL POC Glucose (mg/dL) 412 H 454 H 406 H (75-99) mg/dL Phosphorus (2.5-4.5) mg/dL 06/01/19 06/01/19 06/01/19 Range/Units 18:56 19:19 20:17 WBC (3.8-10.6) k/uL RBC (3.80-5.40) m/uL Hgb (11.4-16.0) gm/dL Hct (34.0-46.0) % Neutrophils # (1.3-7.7) k/uL Sodium 148 H (137-145) mmol/L Chloride 115 H (98-107) mmol/L Carbon Dioxide 15 L (22-30) mmol/L BUN 45 H (7-17) mg/dL Creatinine 1.24 H (0.52-1.04) mg/dL Glucose 401 H (74-99) mg/dL POC Glucose (mg/dL) 380 H 351 H (75-99) mg/dL Phosphorus (2.5-4.5) mg/dL 06/01/19 06/01/19 06/01/19 Range/Units 20:54 22:08 22:59 WBC (3.8-10.6) k/uL RBC (3.80-5.40) m/uL Hgb (11.4-16.0) gm/dL Hct (34.0-46.0) % Neutrophils # (1.3-7.7) k/uL Sodium (137-145) mmol/L Chloride (98-107) mmol/L Carbon Dioxide (22-30) mmol/L BUN (7-17) mg/dL Creatinine (0.52-1.04) mg/dL Glucose (74-99) mg/dL POC Glucose (mg/dL) 313 H 257 H 227 H (75-99) mg/dL Phosphorus (2.5-4.5) mg/dL 06/01/19 06/02/19 06/02/19 Range/Units 23:32 00:13 02:05 WBC (3.8-10.6) k/uL RBC (3.80-5.40) m/uL Hgb (11.4-16.0) gm/dL Hct (34.0-46.0) % Neutrophils # (1.3-7.7) k/uL Sodium 149 H (137-145) mmol/L Chloride 118 H (98-107) mmol/L Carbon Dioxide (22-30) mmol/L BUN 39 H (7-17) mg/dL Creatinine 1.08 H (0.52-1.04) mg/dL Glucose 209 H (74-99) mg/dL POC Glucose (mg/dL) 205 H 159 H (75-99) mg/dL Phosphorus (2.5-4.5) mg/dL 06/02/19 06/02/19 Range/Units 05:18 08:57 WBC 13.5 H (3.8-10.6) k/uL RBC 3.50 L (3.80-5.40) m/uL Hgb 10.3 L (11.4-16.0) gm/dL Hct 32.6 L (34.0-46.0) % Neutrophils # 11.6 H (1.3-7.7) k/uL Sodium 150 H (137-145) mmol/L Chloride 118 H (98-107) mmol/L Carbon Dioxide (22-30) mmol/L BUN 33 H (7-17) mg/dL Creatinine (0.52-1.04) mg/dL Glucose 102 H (74-99) mg/dL POC Glucose (mg/dL) (75-99) mg/dL Phosphorus 2.0 L (2.5-4.5) mg/dL Diabetes panel 06/01/19 06/01/19 06/01/19 Range/Units 13:24 19:19 23:32 Sodium 145 148 H 149 H (137-145) mmol/L Potassium 4.7 4.7 4.1 (3.5-5.1) mmol/L Chloride 109 H 115 H 118 H (98-107) mmol/L Carbon Dioxide 10 L 15 L 23 (22-30) mmol/L BUN 55 H 45 H 39 H (7-17) mg/dL Creatinine 1.66 H 1.24 H 1.08 H (0.52-1.04) mg/dL Glucose 645 H* 401 H 209 H (74-99) mg/dL Calcium 9.4 9.1 9.1 (8.4-10.2) mg/dL AST 22 (14-36) U/L ALT 22 (4-34) U/L Alkaline Phosphatase 90 (38-126) U/L Total Protein 7.1 (6.3-8.2) g/dL Albumin 3.8 (3.5-5.0) g/dL 06/02/19 Range/Units 05:18 Sodium 150 H (137-145) mmol/L Potassium 4.2 (3.5-5.1) mmol/L Chloride 118 H (98-107) mmol/L Carbon Dioxide 24 (22-30) mmol/L BUN 33 H (7-17) mg/dL Creatinine 1.02 (0.52-1.04) mg/dL Glucose 102 H (74-99) mg/dL Calcium 9.4 (8.4-10.2) mg/dL AST (14-36) U/L ALT (4-34) U/L Alkaline Phosphatase (38-126) U/L Total Protein (6.3-8.2) g/dL Albumin (3.5-5.0) g/dL Calcium panel 06/01/19 06/01/19 06/01/19 Range/Units 13:24 19:19 23:32 Calcium 9.4 9.1 9.1 (8.4-10.2) mg/dL Phosphorus (2.5-4.5) mg/dL Albumin 3.8 (3.5-5.0) g/dL 06/02/19 Range/Units 05:18 Calcium 9.4 (8.4-10.2) mg/dL Phosphorus 2.0 L (2.5-4.5) mg/dL Albumin (3.5-5.0) g/dL Pituitary panel 06/01/19 06/01/19 06/01/19 Range/Units 13:24 19:19 23:32 Sodium 145 148 H 149 H (137-145) mmol/L Potassium 4.7 4.7 4.1 (3.5-5.1) mmol/L Chloride 109 H 115 H 118 H (98-107) mmol/L Carbon Dioxide 10 L 15 L 23 (22-30) mmol/L BUN 55 H 45 H 39 H (7-17) mg/dL Creatinine 1.66 H 1.24 H 1.08 H (0.52-1.04) mg/dL Glucose 645 H* 401 H 209 H (74-99) mg/dL Calcium 9.4 9.1 9.1 (8.4-10.2) mg/dL 06/02/19 Range/Units 05:18 Sodium 150 H (137-145) mmol/L Potassium 4.2 (3.5-5.1) mmol/L Chloride 118 H (98-107) mmol/L Carbon Dioxide 24 (22-30) mmol/L BUN 33 H (7-17) mg/dL Creatinine 1.02 (0.52-1.04) mg/dL Glucose 102 H (74-99) mg/dL Calcium 9.4 (8.4-10.2) mg/dL Adrenal panel 06/01/19 06/01/19 06/01/19 Range/Units 13:24 19:19 23:32 Sodium 145 148 H 149 H (137-145) mmol/L Potassium 4.7 4.7 4.1 (3.5-5.1) mmol/L Chloride 109 H 115 H 118 H (98-107) mmol/L Carbon Dioxide 10 L 15 L 23 (22-30) mmol/L BUN 55 H 45 H 39 H (7-17) mg/dL Creatinine 1.66 H 1.24 H 1.08 H (0.52-1.04) mg/dL Glucose 645 H* 401 H 209 H (74-99) mg/dL Calcium 9.4 9.1 9.1 (8.4-10.2) mg/dL Total Bilirubin 0.4 (0.2-1.3) mg/dL AST 22 (14-36) U/L ALT 22 (4-34) U/L Alkaline Phosphatase 90 (38-126) U/L Total Protein 7.1 (6.3-8.2) g/dL Albumin 3.8 (3.5-5.0) g/dL 06/02/19 Range/Units 05:18 Sodium 150 H (137-145) mmol/L Potassium 4.2 (3.5-5.1) mmol/L Chloride 118 H (98-107) mmol/L Carbon Dioxide 24 (22-30) mmol/L BUN 33 H (7-17) mg/dL Creatinine 1.02 (0.52-1.04) mg/dL Glucose 102 H (74-99) mg/dL Calcium 9.4 (8.4-10.2) mg/dL Total Bilirubin (0.2-1.3) mg/dL AST (14-36) U/L ALT (4-34) U/L Alkaline Phosphatase (38-126) U/L Total Protein (6.3-8.2) g/dL Albumin (3.5-5.0) g/dL - Imaging Additional studies: Foot x-ray reviewed Assessment and Plan Assessment: 1. Chronic right lower extremity wounds 2. History of MRSA and strep infection to her right foot wounds 3. Uncontrolled type 2 diabetes with hyperglycemia, most recent hemoglobin A1c 9.5% 4. History of coronary artery disease 5. Chronic CHF 6. COPD 7. CVA 8. Previous tobacco dependence Plan: The patient was seen and examined at the bedside in the intensive care unit. Chart/diagnostics were reviewed. Caregiver was at the bedside. The case will be discussed with Dr. Cadena. Notes from the wound care center were reviewed. Both right foot wounds are without purulent drainage. As recommended by Dr. Chapa we would continue with medical any dressing changes daily. Continue IV antibiotics per infectious disease. Right foot should be elevated. Blood sugars need to be much better controlled, caregiver states her blood sugars usually run in the 300s. Long discussion had with patient's caregiver that her for her blood sugars are not better controlled she runs the risk of continued wounds with possibility of future amputation. Medical management of other comorbidities per primary care service. More recommendations to follow. Thank you Dr. Horne for this consult. Please call us with any further questions. Time with Patient: Greater than 30
[2019-06-02] MEDS: TRIMETHOBENZAMIDE 100 MG/ML 2 ML VIAL IM PRN ×2 (15:12→22:49)
[2019-06-02 17:05] LABS: Glucose,Whole Blood 319 mg/dL (75-99)
--- NOTE | 2019-06-02 18:56 | PN ---
PROGRESS NOTE DATE OF SERVICE: 06/02/2019. REASON FOR FOLLOWUP: Right diabetic foot wound and concern for underlying osteomyelitis. INTERVAL HISTORY: The patient is currently afebrile. Patient is breathing comfortably. Still complaining of feeling nauseous and vomiting and rocking in the bed with movement, consistent movement of the leg. Still complaining of pain to the leg area, but unable to quantify further. No diarrhea. PHYSICAL EXAMINATION: Blood pressure is 155/100 with a pulse of 94, temperature 98.3. She is 94% on room air. General description is a middle-aged female up in the bed in no distress. Respiratory system: Unlabored breathing. Clear to auscultation anteriorly. Heart S1, S2. Regular rate and rhythm. Abdomen soft, no tenderness. Bilateral leg wounds with slough tissue with surrounding redness and no drainage. LABS: Hemoglobin 10.3 with white count 13.5, BUN of 53, creatinine 1.02. DIAGNOSTIC IMPRESSION AND PLAN: Patient with right foot wound, both the lateral and medial side with concern for underlying osteomyelitis on the basis of the x-ray report. Previous culture positive for MRSA. The patient is currently covered with vancomycin which will be continued with local care with [facility] and monitor clinical course closely. MMODL / IJN: [id number] /
[2019-06-02 20:34] LABS: Glucose,Whole Blood 179 mg/dL (75-99)
[2019-06-03] MEDS: ONDANSETRON 4 MG/2 ML VIAL IVP SCH ×4 (00:20→20:27)
[2019-06-03 03:04] LABS: Glucose,Whole Blood 49 mg/dL (75-99)
[2019-06-03 03:20] LABS: Glucose,Whole Blood 55 mg/dL (75-99)
[2019-06-03] MEDS: VANCOMYCIN 1,000 MG in SODIUM CHLORIDE 0.9% 250 ML IVPB SCH ×2 (03:31→20:31)
[2019-06-03 03:38] LABS: Glucose,Whole Blood 104 mg/dL (75-99)
[2019-06-03] MEDS: TRIMETHOBENZAMIDE 100 MG/ML 2 ML VIAL IM PRN ×3 (04:49→23:40)
[2019-06-03 07:04] LABS: Glucose,Whole Blood 85 mg/dL (75-99)
[2019-06-03 09:16] LABS: Glucose,Whole Blood 75 mg/dL (75-99)
[2019-06-03] MEDS: INSULIN ASPART (NovoLOG) 100 UNIT/ML VIAL SQ SCH ×4 (10:22→21:10)
--- NOTE | 2019-06-03 10:54 | P.CONS ---
History of Present Illness - Reason for Consult Consult date: 06/02/19 Nausea and vomiting Requesting physician: Caydne Horne - Chief Complaint Nausea, vomiting, DKA - History of Present Illness 58-year-old female with medical history significant for uncontrolled type 2 diabetes mellitus, coronary artery disease, CHF, COPD, CVA and tobacco dependence who presented to the hospital due to intractable nausea, vomiting and elevated blood sugars. The patient reports symptoms of nausea, vomiting and retching occurring for approximately 3 days. She did have some diarrhea prior to presentation however this is resolved. No blood or black tarry stool noted. The patient reports she's had previous similar episodes associated with uncontro lled blood sugars in DKA. Her last episode over 5 years ago per her recollection. She does report nausea at home for which she takes Zofran therapy. She denies any sick contacts or new medications prior to developing the symptoms. Last EGD and colonoscopy were approximately 8 years ago significa nt polyps. Laboratory evaluation on presentation was significant for WBC 13.5, hemoglobin 10.3, platelets 321,000, lipase 15, total bilirubin 0.4, alkaline phosphatase 90, AST 22 and ALT 22. Review of Systems REVIEW OF SYSTEMS: CONSTITUTIONAL: Denies any fevers, chills, weight change or fatigue. CARDIOVASCULAR: Denies any chest pain, palpitations high or low blood pressures RESPIRATORY: Denies any shortness of breath, hemoptysis or cough. GENITOURINARY: No dysuria or hematuria. MUSCULOSKELETAL: No weakness reported. SKIN: Denies any new rashes or lesions, jaundice or pallor. PSYCHIATRIC: Denies any depression or anxiety. NEUROLOGY: Denies headache, denies any new focal deficits. EARS/NOSE/THROAT: No recent hearing change, congestion, nasal discharge or sore throat. EYES: No pain in eyes, discharge or change in vision. GASTROINTESTINAL: As per HPI. Past Medical History Past Medical History: Asthma, Coronary Artery Disease (CAD), Chest Pain / Angina, Heart Failure, COPD, CVA/TIA, Diabetes Mellitus, Deep Vein Thrombosis (DVT), Eye Disorder, GERD/Reflux, Hyperlipidemia, Hypertension, Myocardial Infarction (SD), Neurologic Disorder, Osteoarthritis (OA), Pneumonia, Renal Dis ease Additional Past Medical History / Comment(s): IDDM (brittle), DKAs, neuropathy bilateral hands/feet, retinopathy bilateral eyes, cellulitis R foot, R great toe and 2nd toe infections/amputations, current wound R foot-being seen in [facility], renal failure, anemia, CVAs with L sided paralysis, headaches started after CVAs, brain lesions, DVT R axillae, low back pain, varicosities, seizure many years ago (2001), hypothyroid, constipation, bilateral tinnitis occasionally, si nus problems. Last Myocardial Infarction Date:: 2011 History of Any Multi-Drug Resistant Organisms: MRSA Year Discovered:: 09/06/17 MDRO Source:: Right Foot Past Surgical History: Appendectomy, Section, Cholecystectomy, Heart Catheterization With Stent, Hysterectomy, Orthopedic Surgery Additional Past Surgical History / Comment(s): PCI with multiple stents, R great toe and 2nd toe amps, debridements R foot ulcer, L shoulder surgery to remove bone, bronchoscopy, EGD, colonoscopy, R arm port since removed, bilateral cataract removals/lens implants. Past Anesthesia/Blood Transfusion Reactions: No Reported Reaction Additional Past Anesthesia/Blood Transfusion Reaction / Comm: HX OF BLOOD TRANSFUSION- NO REACTION Date of Last Stent Placement:: July 2012 Smoking Status: Former smoker - Past Family History Father Family Medical History: Unable to Obtain, Coronary Artery Disease (CAD), Diabetes Mellitus Mother Family Medical History: COPD Medications and Allergies Home Medications Medication Instructions Recorded Confirmed Type Albuterol Inhaler [Ventolin Hfa 2 puff INHALATION RT-Q4H PRN 07/19/15 06/01/19 History Inhaler] Aspirin EC [Ecotrin Low Dose] 81 mg PO DAILY 07/19/15 06/01/19 History Famotidine [Pepcid] 20 mg PO DAILY 07/19/15 06/01/19 History Valproic Acid [Depakene] 250 mg PO DAILY 07/19/15 06/01/19 History Ergocalciferol [Vitamin D2 50,000 unit PO SA 03/05/16 06/01/19 History (DRISDOL)] HYDROcodone/APAP 10-325MG [Molina 1 tab PO Q6H PRN 10/03/16 06/01/19 History 10-325] DULoxetine HCL [Cymbalta] 60 mg PO DAILY 02/16/17 06/01/19 History Ferrous Sulfate [Iron (65 MG 325 mg PO DAILY 02/16/17 06/01/19 History Elemental)] ALPRAZolam [Xanax] 1 mg PO Q8H PRN 02/19/17 06/01/19 History Ondansetron [Zofran] 4 mg PO DAILY PRN 09/06/17 06/01/19 History Atorvastatin [Lipitor] 20 mg PO DAILY 12/28/18 06/01/19 History QUEtiapine FUMARATE [SEROquel] 25 mg PO BID 12/28/18 06/01/19 History QUEtiapine [SEROquel] 100 mg PO HS 12/28/18 06/01/19 History INSULIN LISPRO (humaLOG) [humaLOG] 6 units SQ AC-TID 06/01/19 06/01/19 History Insulin Glargine [Lantus] 25 unit SQ HS 06/01/19 06/01/19 History Vitamin B Complex With Vit C 1 tab PO DAILY 06/01/19 06/01/19 History Allergies Allergy/AdvReac Type Severity Reaction Status Date / Time Barbiturates Allergy Rash/Hives Verified 06/01/19 13:39 cephalexin monohydrate Allergy Rash/Hives Verified 06/01/19 13:39 [From Keflex] morphine Allergy Rash/Hives Verified 06/01/19 13:39 Penicillins Allergy Rash/Hives Verified 06/01/19 13:39 phenobarbital Allergy Swelling Verified 06/01/19 13:39 venom-honey bee Allergy Swelling Verified 06/01/19 13:39 [bee venom (honey bee)] amlodipine besylate AdvReac Vomiting Verified 06/01/19 13:39 [From Norvasc] Physical Exam Vitals: Vital Signs Temp Pulse Resp BP Pulse Ox 06/02/19 09:00 93 15 155/109 96 06/02/19 08:00 97.4 F L 108 H 20 136/93 96 06/02/19 07:00 102 H 39 H 136/93 96 06/02/19 06:00 108 H 33 H 121/105 96 06/02/19 05:00 108 H 30 H 131/78 97 06/02/19 04:00 98.0 F 107 H 61 H 155/70 96 06/02/19 03:00 112 H 26 H 131/65 93 L 06/02/19 02:00 105 H 24 109/77 95 06/02/19 01:00 112 H 15 109/77 96 06/02/19 00:00 98.2 F 109 H 26 H 109/77 97 06/01/19 23:28 113 H 22 96 06/01/19 23:00 105 H 21 151/47 97 06/01/19 22:00 104 H 13 90/77 94 L 06/01/19 21:00 107 H 19 166/73 95 06/01/19 20:00 98.1 F 108 H 42 H 166/73 97 06/01/19 19:00 106 H 15 146/105 96 06/01/19 18:00 105 H 12 118/74 96 06/01/19 17:00 105 H 18 125/80 96 06/01/19 16:00 98.4 F 106 H 15 125/80 98 06/01/19 15:43 102 H 11 L 161/74 99 06/01/19 14:26 98.4 F 107 H 18 132/58 97 06/01/19 13:51 104 H 18 114/49 97 06/01/19 12:36 105 H 18 136/58 97 Intake and Output 06/01/19 06/02/19 06/02/19 22:59 06:59 14:59 Intake Total 1755.896 713.325 100 Output Total 0 931 200 Balance 1755.896 -217.675 -100 Intake: IV 1700 700 100 D5-0.45% NaCl with KCl 450 20Meq/l 1,000 ml @ 150 mls/hr IV .Q6H40M [facility] Rx# :[id number] Levofloxacin 750Mg-D5w 100 Pmx 750 mg In Dextrose/ Water 1 150ml.bag @ 100 mls/hr IVPB Q24H [facility] Rx#: [id number] Sodium Chloride 0.45% 1, 250 100 000 ml @ 50 mls/hr IV . Q20H [facility] Rx#:[id number] Sodium Chloride 0.9% 1, 1600 000 ml @ 200 mls/hr IV . Q5H [facility] Rx#:[id number] Intake, IV Titration 55.896 13.325 Amount Insulin Regular 100 unit 55.896 13.325 In Sodium Chloride 0.9% 100 ml @ 0.1 UNITS/KG/HR 5.498 mls/hr IV .[id number] [facility] Rx#:[id number] Output: Urine 0 930 200 Stool 1 Other: Voiding Method Bedpan Indwelling Catheter Indwelling Catheter # Voids 1 1 Weight 57.5 kg On physical examination, patient appears comfortable in no apparent distress. HEAD: Normocephalic, atraumatic. EYES: No scleral icterus. No conjunctival injection. MOUTH: No lesions, tongue midline. NECK: Trachea midline, no gross abnormalities. CHEST: Clear to auscultation with no wheezing or rhonchi appreciated. HEART: Regular rate and rhythm. ABDOMEN: Soft, nontender. Bowel sounds are positive. No organomegaly. No guarding or rigidity. EXTREMITIES: No pedal edema. SKIN: No rashes, no jaundice. NEUROLOGIC: Alert and oriented x3. Results CBC & Chem 7: 06/02/19 08:57 06/02/19 05:18 Labs: Abnormal Lab Results - Last 24 Hours (Table) 06/01/19 06/01/19 06/01/19 Range/Units 11:10 11:10 12:38 WBC (3.8-10.6) k/uL RBC (3.80-5.40) m/uL Hgb (11.4-16.0) gm/dL Hct (34.0-46.0) % Neutrophils # (1.3-7.7) k/uL VBG pH 7.21 L (7.31-7.41) VBG pCO2 18 L* (37-51) mmHg VBG HCO3 7 L* (24-28) mmol/L Sodium (137-145) mmol/L Chloride (98-107) mmol/L Carbon Dioxide (22-30) mmol/L BUN (7-17) mg/dL Creatinine (0.52-1.04) mg/dL Glucose (74-99) mg/dL POC Glucose (mg/dL) >600 H (75-99) mg/dL Phosphorus (2.5-4.5) mg/dL Urine Glucose (UA) 4+ H (Negative) Urine Ketones 3+ H (Negative) 06/01/19 06/01/19 06/01/19 Range/Units 13:24 13:41 14:39 WBC (3.8-10.6) k/uL RBC (3.80-5.40) m/uL Hgb (11.4-16.0) gm/dL Hct (34.0-46.0) % Neutrophils # (1.3-7.7) k/uL VBG pH (7.31-7.41) VBG pCO2 (37-51) mmHg VBG HCO3 (24-28) mmol/L Sodium (137-145) mmol/L Chloride 109 H (98-107) mmol/L Carbon Dioxide 10 L (22-30) mmol/L BUN 55 H (7-17) mg/dL Creatinine 1.66 H (0.52-1.04) mg/dL Glucose 645 H* (74-99) mg/dL POC Glucose (mg/dL) 575 H 531 H (75-99) mg/dL Phosphorus (2.5-4.5) mg/dL Urine Glucose (UA) (Negative) Urine Ketones (Negative) 06/01/19 06/01/19 06/01/19 Range/Units 15:03 16:03 17:13 WBC (3.8-10.6) k/uL RBC (3.80-5.40) m/uL Hgb (11.4-16.0) gm/dL Hct (34.0-46.0) % Neutrophils # (1.3-7.7) k/uL VBG pH (7.31-7.41) VBG pCO2 (37-51) mmHg VBG HCO3 (24-28) mmol/L Sodium (137-145) mmol/L Chloride (98-107) mmol/L Carbon Dioxide (22-30) mmol/L BUN (7-17) mg/dL Creatinine (0.52-1.04) mg/dL Glucose (74-99) mg/dL POC Glucose (mg/dL) 507 H 412 H 454 H (75-99) mg/dL Phosphorus (2.5-4.5) mg/dL Urine Glucose (UA) (Negative) Urine Ketones (Negative) 06/01/19 06/01/19 06/01/19 Range/Units 18:08 18:56 19:19 WBC (3.8-10.6) k/uL RBC (3.80-5.40) m/uL Hgb (11.4-16.0) gm/dL Hct (34.0-46.0) % Neutrophils # (1.3-7.7) k/uL VBG pH (7.31-7.41) VBG pCO2 (37-51) mmHg VBG HCO3 (24-28) mmol/L Sodium 148 H (137-145) mmol/L Chloride 115 H (98-107) mmol/L Carbon Dioxide 15 L (22-30) mmol/L BUN 45 H (7-17) mg/dL Creatinine 1.24 H (0.52-1.04) mg/dL Glucose 401 H (74-99) mg/dL POC Glucose (mg/dL) 406 H 380 H (75-99) mg/dL Phosphorus (2.5-4.5) mg/dL Urine Glucose (UA) (Negative) Urine Ketones (Negative) 06/01/19 06/01/19 06/01/19 Range/Units 20:17 20:54 22:08 WBC (3.8-10.6) k/uL RBC (3.80-5.40) m/uL Hgb (11.4-16.0) gm/dL Hct (34.0-46.0) % Neutrophils # (1.3-7.7) k/uL VBG pH (7.31-7.41) VBG pCO2 (37-51) mmHg VBG HCO3 (24-28) mmol/L Sodium (137-145) mmol/L Chloride (98-107) mmol/L Carbon Dioxide (22-30) mmol/L BUN (7-17) mg/dL Creatinine (0.52-1.04) mg/dL Glucose (74-99) mg/dL POC Glucose (mg/dL) 351 H 313 H 257 H (75-99) mg/dL Phosphorus (2.5-4.5) mg/dL Urine Glucose (UA) (Negative) Urine Ketones (Negative) 06/01/19 06/01/19 06/02/19 Range/Units 22:59 23:32 00:13 WBC (3.8-10.6) k/uL RBC (3.80-5.40) m/uL Hgb (11.4-16.0) gm/dL Hct (34.0-46.0) % Neutrophils # (1.3-7.7) k/uL VBG pH (7.31-7.41) VBG pCO2 (37-51) mmHg VBG HCO3 (24-28) mmol/L Sodium 149 H (137-145) mmol/L Chloride 118 H (98-107) mmol/L Carbon Dioxide (22-30) mmol/L BUN 39 H (7-17) mg/dL Creatinine 1.08 H (0.52-1.04) mg/dL Glucose 209 H (74-99) mg/dL POC Glucose (mg/dL) 227 H 205 H (75-99) mg/dL Phosphorus (2.5-4.5) mg/dL Urine Glucose (UA) (Negative) Urine Ketones (Negative) 06/02/19 06/02/19 06/02/19 Range/Units 02:05 05:18 08:57 WBC 13.5 H (3.8-10.6) k/uL RBC 3.50 L (3.80-5.40) m/uL Hgb 10.3 L (11.4-16.0) gm/dL Hct 32.6 L (34.0-46.0) % Neutrophils # 11.6 H (1.3-7.7) k/uL VBG pH (7.31-7.41) VBG pCO2 (37-51) mmHg VBG HCO3 (24-28) mmol/L Sodium 150 H (137-145) mmol/L Chloride 118 H (98-107) mmol/L Carbon Dioxide (22-30) mmol/L BUN 33 H (7-17) mg/dL Creatinine (0.52-1.04) mg/dL Glucose 102 H (74-99) mg/dL POC Glucose (mg/dL) 159 H (75-99) mg/dL Phosphorus 2.0 L (2.5-4.5) mg/dL Urine Glucose (UA) (Negative) Urine Ketones (Negative) Abdominal x-ray: report reviewed (Nonobstructive bowel gas pattern or abdominal x-ray) Assessment and Plan (1) Intractable nausea and vomiting Narrative/Plan: 50-year-old female with multiple medical comorbidities came into the hospital 3 days of nausea and vomiting and diarrhea. Diarrhea currently improved however patient continued to have retching and vomiting. She was found to have a low blood sugars and treated for diabetic ketoacidosis. Blood sugars, however cannot rule out a component of viral or bacterial gastroenteritis, or other etiology. So improvement in symptoms with antiemetic therapy which has been optimized. Current Visit: Yes Status: Acute Code(s): R11.2 - NAUSEA WITH VOMITING, UNSPECIFIED SNOMED Code(s): 459291708 (2) Diabetic ketoacidosis Current Visit: Yes Status: Acute Code(s): E11.10 - TYPE 2 DIABETES MELLITUS WITH KETOACIDOSIS WITHOUT COMA SNOMED Code(s): 722566540 Plan: Supportive care Okay for liquids, advance as tolerated Zofran changed to [id number] Tigan as needed, intramuscular for breakthrough nausea Compazine suppository, for breakthrough nausea Tight glycemic control No plans for endoscopic evaluation at this time If symptoms improve and otherwise medically stable no further plan for GI evaluation at this time Thank you for allowing us to participate in the care of the patient
[2019-06-03 11:16] LABS: Glucose,Whole Blood 104 mg/dL (75-99)
--- NOTE | 2019-06-03 11:57 | PN ---
PROGRESS NOTE DATE OF SERVICE: 06/03/2019 REASON FOR FOLLOWUP: Right diabetic foot wound with osteomyelitis. INTERVAL HISTORY: The patient is currently afebrile. Patient has been breathing comfortably. Still complaining of feeling nauseated and vomiting, unable to keep anything down. No chest pain. No abdominal pain. No diarrhea or worsening pain to the right foot area. PHYSICAL EXAMINATION: Blood pressure 184/84 with a pulse of 91 temperature 97.5. She is 95% we description is a middle-aged female, lying in bed in no distress. RESPIRATORY SYSTEM: Unlabored breathing, clear to auscultation anteriorly. HEART: S1, S2. Regular rate and rhythm. ABDOMEN: Soft, no tenderness. Right foot is currently dressed up, no obvious drainage on the dressing. LABS: No new labs have been obtained today. DIAGNOSTIC IMPRESSION AND PLAN: Patient with right diabetic foot wound. This patient did have pressure ulcer stage III both on the right foot lateral and medial side with the x-ray suspicious for osteomyelitis. Previous culture positive for MRSA. The patient is covered with vancomycin. We will monitor clinical course closely. Local care to continue with dry Aquacel Silver dressing and continue supportive care. MMODL / IJN: [id number] /
[2019-06-03 12:05] LABS: Glucose,Whole Blood 112 mg/dL (75-99)
--- NOTE | 2019-06-03 12:58 | PN ---
PROGRESS NOTE She was seen on 06/03/2019. She does not have IV access and has been hypoglycemic. She does not have shortness of breath and had been doing somewhat better overall. On physical examination her blood pressure is 184/84, respiratory rate is 16, pulse 91, temperature 97.5, O2 saturation on room is 95%. HEENT is unremarkable. Chest is clear. Cardiovascular system reveals an S1, S2. Abdomen is soft. There is chronic wound. LABS: Reveal glucose it was 55 this morning and subsequently has come up to 104. IMPRESSION: 1. Diabetic ketoacidosis. 2. There is a wound of the right foot. Continue IV antibiotics per ID. Insulin treat hypoglycemia. Follow her electrolytes. She may require central line IV access. MMODL / IJN: [id number] /
[2019-06-03] MEDS: FAMOTIDINE 20 MG/2 ML VIAL IV SCH (14:10)
[2019-06-03] MEDS: HEPARIN SODIUM,PORCINE 5,000 UNIT/ML 1 ML VIAL SQ SCH ×2 (14:10→21:22)
--- NOTE | 2019-06-03 16:13 | P.PN ---
Subjective Progress Note Date: 06/03/19 Principal diagnosis: Severe sepsis Osteomyelitis of the right fifth metatarsal bone Diabetic ketoacidosis Severe type 1 diabetes with complications Mild hyperkalemia Peripheral vascular disease 06/03/2019, patient seen eval examined during the rounds is still intermittently nauseous but more awake and oriented now remains on broad-spectrum antibiotics midline there wasn't inserted yesterday was lost would however a small that her for IV axis has been obtained patient will likely need a PICC line for long-term antibiotics for right foot osteomyelitis which will be done early next week labs reviewed medications reviewed continue current plan of care 06/02/2019, patient seen and evaluated examined she is appears more comfortable diabetic ketoacidosis had resolved patient is off of insulin drip she cannot take much by mouth due to her ongoing intermittent nausea and emesis she is on Zofran however, she is complaining of pain in the right foot for which she is started on low-dose Toradol, overall appears more composed labs reviewed medications reviewed care plan discussed with the staff at length patient is appear more composed today Objective - Vital Signs Vital signs: Vital Signs Temp 97.5 F L 06/03/19 09:00 Pulse 91 06/03/19 09:00 Resp 16 06/03/19 09:00 BP 184/84 06/03/19 09:00 Pulse Ox 95 06/03/19 09:00 Intake & Output 06/02/19 06/03/19 06/03/19 18:59 06:59 18:59 Intake Total 100 50 Output Total 1400 1400 400 Balance -1300 -1350 -400 Intake: IV 100 50 Sodium Chloride 0.45% 1, 100 50 000 ml @ 50 mls/hr IV . Q20H [facility] Rx#:[id number] Output: Urine 1400 1400 400 Other: Voiding Method Indwelling Catheter Indwelling Catheter # Bowel Movements 0 - Exam - Constitutional General appearance: disheveled, mild distress - EENT Eyes: EOMI, PERRLA, poor dentition, normal appearance ENT: normal oropharynx Ears: bilateral: normal - Neck Neck: normal ROM Carotids: bilateral: upstroke normal Thyroid: bilateral: normal size - Respiratory Respiratory: bilateral: CTA - Cardiovascular Rhythm: regular Heart sounds: normal: S1, S2 - Gastrointestinal General gastrointestinal: decreased bowel sounds, distended, soft - Integumentary Integumentary: decreased turgor - Neurologic Neurologic: CNII-XII intact - Musculoskeletal Musculoskeletal: generalized weakness, right sided weakness - Psychiatric Psychiatric: A&O x's 3, appropriate affect Prior surgery of the right foot with osteomyelitis finding as noted above - Labs CBC & Chem 7: 06/02/19 08:57 06/02/19 05:18 Labs: Abnormal Lab Results - Last 24 Hours (Table) 06/02/19 06/02/19 06/03/19 Range/Units 16:53 20:22 02:51 POC Glucose (mg/dL) 319 H 179 H 49 L (75-99) mg/dL 06/03/19 06/03/19 06/03/19 Range/Units 03:08 03:26 11:04 POC Glucose (mg/dL) 55 L 104 H 104 H (75-99) mg/dL 06/03/19 Range/Units 11:53 POC Glucose (mg/dL) 112 H (75-99) mg/dL Assessment and Plan Assessment: Severe sepsis Osteomyelitis of the fifth metatarsal bone Diabetic ketoacidosis Severe type 1 diabetes with complications Poorly controlled diabetes mellitus Mild hyperkalemia Peripheral vascular disease Plan: Off of Insulin drip IV fluids will gently rehydrate Broad-spectrum antibiotics with IV vancomycin Supportive care Monitor electrolytes and potassium Monitor renal functions PICC line early next week Time with Patient: Greater than 30
[2019-06-03] MEDS: KETOROLAC 30 MG/ML 1 ML VIAL IVP PRN (17:17)
[2019-06-03] MEDS: LEVOFLOXACIN 750MG-D5W PMX 750 MG in DEXTROSE/WATER 1 150ML.BAG IVPB SCH (17:28)
[2019-06-03 17:46] LABS: Glucose,Whole Blood 322 mg/dL (75-99)
[2019-06-03] MEDS: SODIUM CHLORIDE 0.45% 1,000 ML IV SCH (20:29)
[2019-06-03 20:40] LABS: Glucose,Whole Blood 296 mg/dL (75-99)
[2019-06-03] MEDS: INSULIN DETEMIR (LEVEMIR) 100 UNIT/ML SYR SQ SCH ×2 (21:16→22:14)
[2019-06-03 22:22] LABS: Glucose,Whole Blood 240 mg/dL (75-99)
[2019-06-04] MEDS: ONDANSETRON 4 MG/2 ML VIAL IVP SCH ×4 (00:45→17:31)
[2019-06-04] MEDS: KETOROLAC 30 MG/ML 1 ML VIAL IVP PRN (01:37)
[2019-06-04 02:27] LABS: Glucose,Whole Blood 123 mg/dL (75-99)
[2019-06-04 07:02] LABS: Glucose,Whole Blood 104 mg/dL (75-99)
[2019-06-04] MEDS: INSULIN ASPART (NovoLOG) 100 UNIT/ML VIAL SQ SCH ×4 (07:12→20:28)
[2019-06-04] MEDS: TRIMETHOBENZAMIDE 100 MG/ML 2 ML VIAL IM PRN ×2 (08:14→19:41)
[2019-06-04] MEDS: HEPARIN SODIUM,PORCINE 5,000 UNIT/ML 1 ML VIAL SQ SCH ×2 (08:14→19:41)
[2019-06-04] MEDS: FAMOTIDINE 20 MG/2 ML VIAL IV SCH (08:14)
[2019-06-04] MEDS ORDERED: VANCOMYCIN TROUGH DUE 1 EACH MISC MISCELLANE ONE (10:00)
[2019-06-04] MEDS: DEXTROSE 5%-0.45% NACL 1,000 ML IV SCH (10:42)
[2019-06-04 12:04] LABS: Glucose,Whole Blood 145 mg/dL (75-99)
[2019-06-04] MEDS: VANCOMYCIN 1,000 MG in SODIUM CHLORIDE 0.9% 250 ML IVPB SCH ×2 (12:08→13:00)
--- NOTE | 2019-06-04 14:26 | PN ---
PROGRESS NOTE She is unable to eat or drink anything. She has had some episodes of hypoglycemia. She does have a stable IV at this point. She is complaining of pain in her right foot. On physical examination, vitals were stable. She is afebrile. Her chest reveals decreased breath sounds. No wheeze. Cardiovascular system is S1, S2. Abdomen is soft. Bowel sounds are heard. There is no edema. There is a surgical dressing over the right foot. IMPRESSION: At this time is: 1. Diabetic ketoacidosis. 2. Gastroparesis, which is quite significant for which we shall start her on D5 half- normal saline as she has not received any calories since yesterday. Would defer to Gastroenterology to further help with treatment of the gastroparesis. Her prognosis is guarded. Continue antibiotics per ID and local wound care. MMODL / IJN: [id number] /
[2019-06-04 17:05] LABS: Glucose,Whole Blood 204 mg/dL (75-99)
--- NOTE | 2019-06-04 20:09 | PN ---
PROGRESS NOTE DATE OF SERVICE: 06/04/2019 REASON FOR FOLLOWUP: Right diabetic foot wound with concern for underlying osteomyelitis. INTERVAL HISTORY: The patient is currently afebrile. Patient remains to be feeling nauseous and throwing up. Denies having any chest pain or any worsening abdominal pain. No diarrhea or any worsening pain to the right foot. PHYSICAL EXAMINATION: Blood pressure is 144/80 with a pulse of 99, temperature 98.2. She is 95% on room air. General description is a middle-aged female, lying in bed in no distress. Respiratory system: Unlabored breathing, clear to auscultation anteriorly. Heart S1, S2. Regular rate and rhythm. Abdomen soft, no tenderness. Right foot is dressed, no drainage on the dressing. DIAGNOSTIC IMPRESSION AND PLAN: Patient with right foot diabetic foot wound with a pressure ulcer stage III both the medial and lateral side of the right foot. It was suspicious ( ) possible osteomyelitis. Bone scan done to confirm that. Local care to continue with [facility]. Continue vancomycin and monitor clinical course closely. MMODL / IJN: [id number] /
[2019-06-04 20:11] LABS: Glucose,Whole Blood 200 mg/dL (75-99)
[2019-06-04] MEDS: INSULIN DETEMIR (LEVEMIR) 100 UNIT/ML SYR SQ SCH (20:28)
[2019-06-04 20:36] LABS: Glucose,Whole Blood 212 mg/dL (75-99)
[2019-06-05] MEDS: ONDANSETRON 4 MG/2 ML VIAL IVP SCH ×5 (00:28→23:47)
[2019-06-05] MEDS: VANCOMYCIN 1,000 MG in SODIUM CHLORIDE 0.9% 250 ML IVPB SCH ×3 (00:29→23:47)
[2019-06-05 02:05] LABS: Glucose,Whole Blood 145 mg/dL (75-99)
[2019-06-05] MEDS: DEXTROSE 5%-0.45% NACL 1,000 ML IV SCH (05:13)
[2019-06-05 07:02] LABS: Glucose,Whole Blood 123 mg/dL (75-99)
[2019-06-05] MEDS: INSULIN ASPART (NovoLOG) 100 UNIT/ML VIAL SQ SCH ×4 (07:06→20:23)
[2019-06-05] MEDS: FAMOTIDINE 20 MG/2 ML VIAL IV SCH (07:21)
[2019-06-05] MEDS: HEPARIN SODIUM,PORCINE 5,000 UNIT/ML 1 ML VIAL SQ SCH ×2 (07:21→18:52)
[2019-06-05] MEDS: KETOROLAC 30 MG/ML 1 ML VIAL IVP PRN ×2 (11:45→23:47)
[2019-06-05 12:06] LABS: Basophils % (A) 1 %; Eosinophils % (A) 0 %; HCT 36.6 % (34.0-46.0); HGB 11.7 gm/dL (11.4-16.0); Lymphocytes # (A) 1.8 k/uL (1.0-4.8); Lymphocytes % (A) 27 %; MCH 29.6 pg (25.0-35.0); MCHC 32.1 g/dL (31.0-37.0); MCV 92.4 fL (80.0-100.0); Mean Platelet Volume 8.7; Monocytes # (A) 0.3 k/uL (0-1.0); Monocytes % (A) 5 %; Neutrophils # (A) 4.4 k/uL (1.3-7.7); Neutrophils % (A) 65 %; Platelet Count 222 k/uL (150-450); RBC 3.96 m/uL (3.80-5.40); RDW 13.9 % (11.5-15.5); WBC 6.7 k/uL (3.8-10.6)
[2019-06-05 12:16] LABS: ALT 33 U/L (4-34); AST 45 U/L (14-36); African American GFR (CKD) >90 (>60 ml/min/1.73 sqM); Albumin 3.2 g/dL (3.5-5.0); Alkaline Phosphatase 76 U/L (38-126); Anion Gap 8 mmol/L; Blood Urea Nitrogen 17 mg/dL (7-17); C Reactive Protein 8.6 mg/L (<10.0); Calcium 8.7 mg/dL (8.4-10.2); Carbon Dioxide 28 mmol/L (22-30); Chloride 105 mmol/L (98-107); Glucose 127 mg/dL (74-99); Non-African American GFR(CKD) 79 (>60 ml/min/1.73 sqM); Sodium 141 mmol/L (137-145); Total Bilirubin 0.4 mg/dL (0.2-1.3); Total Protein 6.5 g/dL (6.3-8.2)
[2019-06-05] MEDS ORDERED: Potassium Replacement Protocol 1 EACH MISC MISCELLANE PRN (12:58)
[2019-06-05 13:49] LABS: Glucose,Whole Blood 70 mg/dL (75-99)
[2019-06-05] MEDS: POTASSIUM CHLORIDE 10 MEQ in WATER FOR INJECTION 1 100ML.BAG IVPB SCH ×4 (13:54→17:56)
--- NOTE | 2019-06-05 14:16 | P.PN ---
Subjective Progress Note Date: 06/05/19 06/05/2019 patient admitted to the hospital with nausea vomiting and diarrhea for 3 days. She's found have evidence of DKA. She does have right wound infections with possible osteomyelitis of the foot. She's undergoing a bone scan today. She's followed closely by infectious disease. She is also being seen by GI service regarding possible gastroparesis. She did have a blood sugar this morning of 123 is now down to 70. She did have episodes of hypoglycemia and the D5 half-normal saline was added yesterday. Sodium level has also improved from 150-141. Patient has been dry heaving and is had poor oral intake. No further episodes of diarrhea. She has any chest pain or shortness of breath. Objective - Vital Signs Vital signs: Vital Signs Temp 98.9 F 06/05/19 08:20 Pulse 96 06/05/19 08:20 Resp 16 06/05/19 08:20 BP 126/70 06/05/19 08:20 Pulse Ox 96 06/05/19 08:20 Intake & Output 06/04/19 06/05/19 06/05/19 18:59 06:59 18:59 Intake Total 920 400 Output Total 350 350 350 Balance 570 -350 50 Intake: Intake, IV Titration 400 200 Amount Dextrose 5%-0.45% NaCl 1, 150 200 000 ml @ 50 mls/hr IV . Q20H [facility] Rx#:[id number] Vancomycin 1,000 mg In 250 Sodium Chloride 0.9% 250 ml @ 125 mls/hr IVPB Q12H [facility] Rx#:[id number] Oral 520 200 Output: Urine 350 350 350 Other: Voiding Method Indwelling Catheter Indwelling Catheter Indwelling Catheter # Voids 1 - Exam Head normocephalic Neck supple Lungs clear to auscultation bilaterally no wheezing or crackles Heart regular rate and rhythm S1-S2, no rub or gallop Abdomen is soft nontender nondistended positive bowel sounds no hepatosplenomegaly Extremities right foot ulcers noted on the medial and lateral aspect of the foot. Are large and dry Neuro alert and orientated to 3 - Labs CBC & Chem 7: 06/05/19 10:43 06/05/19 10:43 Labs: Abnormal Lab Results - Last 24 Hours (Table) 06/04/19 06/04/19 06/04/19 Range/Units 17:03 20:09 20:24 Potassium (3.5-5.1) mmol/L Glucose (74-99) mg/dL POC Glucose (mg/dL) 204 H 200 H 212 H (75-99) mg/dL AST (14-36) U/L Albumin (3.5-5.0) g/dL 06/05/19 06/05/19 06/05/19 Range/Units 02:03 06:59 10:43 Potassium 3.0 L (3.5-5.1) mmol/L Glucose 127 H (74-99) mg/dL POC Glucose (mg/dL) 145 H 123 H (75-99) mg/dL AST 45 H (14-36) U/L Albumin 3.2 L (3.5-5.0) g/dL 06/05/19 Range/Units 13:45 Potassium (3.5-5.1) mmol/L Glucose (74-99) mg/dL POC Glucose (mg/dL) 70 L (75-99) mg/dL AST (14-36) U/L Albumin (3.5-5.0) g/dL Assessment and Plan Assessment: 1. Diabetic ketoacidosis present on admission now improved 2. Gastroparesis with poor oral intake. GI service has been on consult. 3. Nausea vomiting and diarrhea likely secondary to a gastroenteritis. Patient still having episodes of dry heaves. Continue with the IV Pepcid, Zofran and high and as needed 4. Right diabetic foot wound with stage III pressure ulcer on both the medial and lateral side of the right foot. Concerns for possible osteomyelitis of the right fifth metatarsal bone on x-ray. Infectious disease is following. Patient has bone scan scheduled for today. Continue with the vancomycin. Patient was seen by vascular surgery no plans for surgical intervention at this time continue with antibiotics 5. History of diabetes type 1, brittle diabetic. Patient has been having episodes of hypoglycemia. Currently has D5 half-normal saline. Hypoglycemia likely due to poor oral intake. 6. History of peripheral vascular disease 7. Hyponatremia: Likely secondary to poor oral intake. Improved with IV fluids. Sodium has decreased from 150 down to 141. Continue to monitor 8. Hypokalemia: Patient receiving potassium supplement. Repeat labs in a.m. GI prophylaxis Pepcid and DVT prophylaxis subcu I performed an examination of the patient and discussed their management with the physician Still Worker Helper. I have reviewed the Physician Still Worker Helper's notes and agree with the documented findings and plan of care
--- NOTE | 2019-06-05 14:23 | P.PN ---
Subjective Progress Note Date: 06/05/19 Principal diagnosis: Severe sepsis Osteomyelitis of the right fifth metatarsal bone Diabetic ketoacidosis Severe type 1 diabetes with complications Mild hyperkalemia Peripheral vascular disease 06/05/2019, patient seen conrad examined during the rounds she has been started on clear liquid diet denies any chest pain patient remains on broad-spectrum antibiotics for osteomyelitis of the right foot, PICC line to be inserted, bone scan phosphatase has been completed secondary to be done tonight 06/03/2019, patient seen evabdiel examined during the rounds is still intermittently nauseous but more awake and oriented now remains on broad-spectrum antibiotics midline there wasn't inserted yesterday was lost would however a small that her for IV axis has been obtained patient will likely need a PICC line for long-term antibiotics for right foot osteomyelitis which will be done early next week labs reviewed medications reviewed continue current plan of care 06/02/2019, patient seen and evaluated examined she is appears more comfortable diabetic ketoacidosis had resolved patient is off of insulin drip she cannot take much by mouth due to her ongoing intermittent nausea and emesis she is on Zofran however, she is complaining of pain in the right foot for which she is st arted on low-dose Toradol, overall appears more composed labs reviewed medications reviewed care plan discussed with the staff at length patient is appear more composed today Objective - Vital Signs Vital signs: Vital Signs Temp 98.9 F 06/05/19 08:20 Pulse 96 06/05/19 08:20 Resp 16 06/05/19 08:20 BP 126/70 06/05/19 08:20 Pulse Ox 96 06/05/19 08:20 Intake & Output 06/04/19 06/05/19 06/05/19 18:59 06:59 18:59 Intake Total 920 400 Output Total 350 350 350 Balance 570 -350 50 Intake: Intake, IV Titration 400 200 Amount Dextrose 5%-0.45% NaCl 1, 150 200 000 ml @ 50 mls/hr IV . Q20H [facility] Rx#:[id number] Vancomycin 1,000 mg In 250 Sodium Chloride 0.9% 250 ml @ 125 mls/hr IVPB Q12H [facility] Rx#:[id number] Oral 520 200 Output: Urine 350 350 350 Other: Voiding Method Indwelling Catheter Indwelling Catheter Indwelling Catheter # Voids 1 - Exam - Constitutional General appearance: disheveled, mild distress - EENT Eyes: EOMI, PERRLA, poor dentition, normal appearance ENT: normal oropharynx Ears: bilateral: normal - Neck Neck: normal ROM Carotids: bilateral: upstroke normal Thyroid: bilateral: normal size - Respiratory Respiratory: bilateral: CTA - Cardiovascular Rhythm: regular Heart sounds: normal: S1, S2 - Gastrointestinal General gastrointestinal: decreased bowel sounds, distended, soft - Integumentary Integumentary: decreased turgor - Neurologic Neurologic: CNII-XII intact - Musculoskeletal Musculoskeletal: generalized weakness, right sided weakness - Psychiatric Psychiatric: A&O x's 3, appropriate affect Prior surgery of the right foot with osteomyelitis finding as noted above - Labs CBC & Chem 7: 06/05/19 10:43 06/05/19 10:43 Labs: Abnormal Lab Results - Last 24 Hours (Table) 06/04/19 06/04/19 06/04/19 Range/Units 17:03 20:09 20:24 Potassium (3.5-5.1) mmol/L Glucose (74-99) mg/dL POC Glucose (mg/dL) 204 H 200 H 212 H (75-99) mg/dL AST (14-36) U/L Albumin (3.5-5.0) g/dL 06/05/19 06/05/19 06/05/19 Range/Units 02:03 06:59 10:43 Potassium 3.0 L (3.5-5.1) mmol/L Glucose 127 H (74-99) mg/dL POC Glucose (mg/dL) 145 H 123 H (75-99) mg/dL AST 45 H (14-36) U/L Albumin 3.2 L (3.5-5.0) g/dL 06/05/19 Range/Units 13:45 Potassium (3.5-5.1) mmol/L Glucose (74-99) mg/dL POC Glucose (mg/dL) 70 L (75-99) mg/dL AST (14-36) U/L Albumin (3.5-5.0) g/dL Assessment and Plan Assessment: Severe sepsis Osteomyelitis of the right foot and metatarsal bones Diabetic ketoacidosis Severe type 1 diabetes with complications Poorly controlled diabetes mellitus Mild hyperkalemia Peripheral vascular disease Plan: PICC line IV fluids will gently rehydrate Broad-spectrum antibiotics with IV vancomycin Supportive care Monitor electrolytes and potassium Monitor renal functions Time with Patient: Greater than 30
[2019-06-05 14:53] LABS: Erythrocyte Sedimentation Rate 26 mm/hr (0-20)
[2019-06-05] MEDS ORDERED: LIDOCAINE 1% INJ 10MG/ML (20 ML MDV) SQ ONE (15:40)
--- NOTE | 2019-06-05 16:35 | PN ---
PROGRESS NOTE REQUESTING PHYSICIAN: Dr. Chen. The patient is a 58-year-old pleasant white female admitted to the hospital with acute DKA, which since has resolved. She has longstanding history of diabetes mellitus. Congestive heart failure, and coronary artery disease. She continues to have nausea,vomiting with occasional retching. Presently on a clear liquid diet and for the 1st time she states she is able to keep some Jell-O down. She denies any heartburn. She remains on Zofran, Tigan suppository and Compazine as needed for the nausea. She denies any abdominal pain. No rectal bleeding or melena. PHYSICAL EXAMINATION: Appears comfortable no apparent distress vital signs stable. The blood pressure 126/70. Pulse rate 96, tempature 98.9. HEENT EXAMINATION: Unremarkable. Conjunctivae pink, sclerae anicteric. Pupils equal. Oral cavity no lesions. NECK: No JVD or lymph node enlargement. CHEST: Clear to auscultation. HEART: Regular rate and rhythm. ABDOMEN: Soft. Very minimal tenderness in the epigastric area. EXTREMITIES: No pedal edema. She has a diabetic foot infection and the left foot was all bandaged. NEUROLOGIC: Alert and oriented x3. No focal deficits. LABS: From today WBC 6.7, hemoglobin 11.7, platelets normal. Basic metabolic panel is within normal limits. Blood sugar is 127. ALT, AST, T-bilirubin and alkaline phosphatase are within normal limits. IMPRESSION: 1. Persistent nausea, vomiting for the last few days duration. Presently on IV Pepcid and antiemetics and her symptoms are gradually improving. 2. Acute diabetic ketoacidosis, resolved. 3. Diabetic foot infection, on IV vancomycin. 4. History of congestive heart failure/CVA in the past. RECOMMENDATIONS: 1. Continue with symptomatic and supportive care with antiemetics and IV H2 blockers. 2. Continue with clear liquids and tomorrow morning if she is better, we will advance as tolerated. 3. Small frequent meals. 4. If she continues to have persistent symptoms, we will consider an upper endoscopy during this hospitalization. For now we will continue to monitor her closely. Thank you for this consultation. MMODL / IJN: [id number] /
--- NOTE | 2019-06-05 16:48 | NM ---
EXAMINATION TYPE: NM bone 3 phase DATE OF EXAM: 06/05/2019 COMPARISON: NONE HISTORY: Right foot wound. Possible osteomyelitis. Triple phase bone scintigraphy was performed following the injection of 23.8 mCi Tc 99m MDP. Immedia te images and 4 hours post injection images acquired. FINDINGS: The flow study shows some hyperemia of the right forefoot compared to the left. This is also present on the immediate images. Delayed images show focal increased uptake in the distal fifth metatarsal of the right foot. Delayed images show increased uptake at the first tarsometatarsal joint of the right foot. There is m ild increased uptake in the left first MP joint. Remainder of exam is unremarkable. IMPRESSION: Increased uptake distal fifth metatarsal is consistent with osteomyelitis. Increased uptake in the first tarsometatarsal joint of the right foot consistent with arthritic disea se. Increased uptake first MP joint of the left foot consistent with arthritic disease. IMPRESSION: No scintigraphic evidence of osseous metastatic disease.
[2019-06-05 17:04] LABS: Glucose,Whole Blood 164 mg/dL (75-99)
[2019-06-05] MEDS: LEVOFLOXACIN 750MG-D5W PMX 750 MG in DEXTROSE/WATER 1 150ML.BAG IVPB SCH (18:51)
[2019-06-05] MEDS: INSULIN DETEMIR (LEVEMIR) 100 UNIT/ML SYR SQ SCH (20:38)
--- NOTE | 2019-06-05 23:38 | PN ---
PROGRESS NOTE DATE OF SERVICE: 06/05/2019 REASON FOR FOLLOWUP: Right diabetic foot wound and a question of osteomyelitis. INTERVAL HISTORY: The patient is currently afebrile. The patient has been breathing comfortably. The patient remains to be complaining of nausea and vomiting and unable to keep anything down. No abdominal pain or any worsening pain in the right foot area. PHYSICAL EXAMINATION: Blood pressure is 147/79 with pulse of 97, temperature 98. She is 97% on room air. General description is a middle-aged female lying in bed in no distress. Respiratory system: Unlabored breathing. Clear to auscultation anteriorly. Heart S1, S2. Regular rate and rhythm. ABDOMEN: Soft. No tenderness. Right foot is currently dressed up. No obvious drainage on the dressing. LABS: The patient's CRP is currently normal. Sedimentation rate is not significantly elevated. . DIAGNOSTIC IMPRESSION AND PLAN: Patient with right diabetic foot wound. X-rays were suspicious for osteo. However, the bone scan report is not very clear. The patient's CRP is normal and sed rate is not elevated either. We will hold on PICC line at this point and review the bone scan images with the radiologist. Currently on vancomycin to continue and monitor clinical course closely. MMODL / IJN: [id number] /
[2019-06-06 02:15] LABS: Glucose,Whole Blood 54 mg/dL (75-99)
[2019-06-06] MEDS: DEXTROSE 5%-0.45% NACL 1,000 ML IV SCH ×2 (02:28→22:29)
[2019-06-06 02:34] LABS: Glucose,Whole Blood 74 mg/dL (75-99)
[2019-06-06] MEDS: ONDANSETRON 4 MG/2 ML VIAL IVP SCH ×4 (05:55→23:13)
[2019-06-06 07:08] LABS: Glucose,Whole Blood 99 mg/dL (75-99)
[2019-06-06] MEDS: INSULIN ASPART (NovoLOG) 100 UNIT/ML VIAL SQ SCH ×4 (07:31→21:00)
[2019-06-06 07:58] LABS: Basophils % (A) 0 %; Eosinophils # (A) 0.1 k/uL (0-0.7); Eosinophils % (A) 1 %; HCT 32.4 % (34.0-46.0); HGB 10.3 gm/dL (11.4-16.0); Hypochromasia Slight; Lymphocytes # (A) 2.1 k/uL (1.0-4.8); Lymphocytes % (A) 30 %; MCH 29.6 pg (25.0-35.0); MCHC 31.9 g/dL (31.0-37.0); MCV 92.9 fL (80.0-100.0); Mean Platelet Volume 8.4; Monocytes # (A) 0.3 k/uL (0-1.0); Monocytes % (A) 5 %; Neutrophils # (A) 4.2 k/uL (1.3-7.7); Neutrophils % (A) 62 %; Platelet Count 196 k/uL (150-450); RBC 3.49 m/uL (3.80-5.40); RDW 14.1 % (11.5-15.5); WBC 6.9 k/uL (3.8-10.6)
[2019-06-06 08:13] LABS: Albumin 2.8 g/dL (3.5-5.0); Calcium 8.4 mg/dL (8.4-10.2); Potassium 3.1 mmol/L (3.5-5.1); Total Bilirubin 0.6 mg/dL (0.2-1.3); Total Protein 5.7 g/dL (6.3-8.2)
[2019-06-06] MEDS: HEPARIN SODIUM,PORCINE 5,000 UNIT/ML 1 ML VIAL SQ SCH ×2 (08:41→21:00)
[2019-06-06] MEDS: FAMOTIDINE 20 MG/2 ML VIAL IV SCH (08:41)
[2019-06-06] MEDS ORDERED: POTASSIUM CHLORIDE ER 20 MEQ TAB.ER PO STA (09:24)
[2019-06-06] MEDS ORDERED: VANCOMYCIN TROUGH DUE 1 EACH MISC MISCELLANE ONE (11:00)
[2019-06-06 12:09] LABS: Glucose,Whole Blood 158 mg/dL (75-99)
[2019-06-06] MEDS ORDERED: MAGNESIUM SULFATE-D5W PMX 1 GM in DEXTROSE/WATER 1 100ML.BAG IVPB ONE (14:06)
--- NOTE | 2019-06-06 14:12 | P.PN ---
Subjective Progress Note Date: 06/06/19 06/05/2019 patient admitted to the hospital with nausea vomiting and diarrhea for 3 days. She's found have evidence of DKA. She does have right wound infections with possible osteomyelitis of the foot. She's undergoing a bone scan today. She's followed closely by infectious disease. She is also being seen by GI service regarding possible gastroparesis. She did have a blood sugar this morning of 123 is now down to 70. She did have episodes of hypoglycemia and the D5 half-normal saline was added yesterday. Sodium level has also improved from 150-141. Patient has been dry heaving and is had poor oral intake. No further episodes of diarrhea. She has any chest pain or shortness of breath. 06/06/2019 patient sitting up in bed comfortably. She was tolerating a clear liquid breakfast. No further episodes of vomiting or dry heaves since yesterday afternoon. No bowel movement for a couple days. Daigle catheter will be removed today. Discussed case with ID service. Levaquin will be discontinued. continue the vancomycin. ID service will be reviewed feeling bone scan findings with rad iologist. Await their further recommendations. Patient did have another blood sugar low at 54 at 2:00 this morning. Blood sugars are now showing improvement patient is now eating. We'll monitor. Objective - Vital Signs Vital signs: Vital Signs Temp 98.9 F 06/06/19 07:00 Pulse 82 06/06/19 07:00 Resp 16 06/06/19 07:00 BP 144/76 06/06/19 07:00 Pulse Ox 98 06/06/19 07:00 Intake & Output 06/05/19 06/06/19 06/06/19 18:59 06:59 18:59 Intake Total 750 1050 225 Output Total 350 200 Balance 400 850 225 Intake: Intake, IV Titration 550 1050 Amount Dextrose 5%-0.45% NaCl 1, 200 800 000 ml @ 50 mls/hr IV . Q20H [facility] Rx#:[id number] Potassium Chloride 10 meq 100 In Water For Injection 1 100ml.bag @ 100 mls/hr IVPB Q1HR [facility] Rx#: [id number] Vancomycin 1,000 mg In 250 250 Sodium Chloride 0.9% 250 ml @ 125 mls/hr IVPB Q12H [facility] Rx#:[id number] Oral 200 225 Output: Urine 350 200 Other: Voiding Method Indwelling Catheter Indwelling Catheter Indwelling Catheter # Voids 1 - Exam Head normocephalic Neck supple Lungs clear to auscultation bilaterally no wheezing or crackles Heart regular rate and rhythm S1-S2, no rub or gallop Abdomen is soft nontender nondistended positive bowel sounds no hepatosplenomegaly Extremities right foot ulcers noted on the medial and lateral aspect of the foot. Are large and dry Neuro alert and orientated to 3 - Labs CBC & Chem 7: 06/06/19 06:45 06/06/19 06:45 Labs: Abnormal Lab Results - Last 24 Hours (Table) 06/05/19 06/05/19 06/06/19 Range/Units 10:43 17:01 02:04 RBC (3.80-5.40) m/uL Hgb (11.4-16.0) gm/dL Hct (34.0-46.0) % ESR 26 H (0-20) mm/hr Potassium (3.5-5.1) mmol/L POC Glucose (mg/dL) 164 H 54 L (75-99) mg/dL AST (14-36) U/L Total Protein (6.3-8.2) g/dL Albumin (3.5-5.0) g/dL 06/06/19 06/06/19 06/06/19 Range/Units 02:19 06:45 06:45 RBC 3.49 L (3.80-5.40) m/uL Hgb 10.3 L (11.4-16.0) gm/dL Hct 32.4 L (34.0-46.0) % ESR (0-20) mm/hr Potassium 3.1 L (3.5-5.1) mmol/L POC Glucose (mg/dL) 74 L (75-99) mg/dL AST 45 H (14-36) U/L Total Protein 5.7 L (6.3-8.2) g/dL Albumin 2.8 L (3.5-5.0) g/dL 06/06/19 Range/Units 11:57 RBC (3.80-5.40) m/uL Hgb (11.4-16.0) gm/dL Hct (34.0-46.0) % ESR (0-20) mm/hr Potassium (3.5-5.1) mmol/L POC Glucose (mg/dL) 158 H (75-99) mg/dL AST (14-36) U/L Total Protein (6.3-8.2) g/dL Albumin (3.5-5.0) g/dL Assessment and Plan Assessment: 1. Diabetic ketoacidosis present on admission now improved 2. Gastroparesis with poor oral intake. patient evaluated by GI service. At this time they're advancing diet. And only plan for any further endoscopy if patient has vomiting. 3. Nausea vomiting and diarrhea likely secondary to a gastroenteritis. Patient still having episodes of dry heaves. Continue with the IV Pepcid, Zofran as needed 4. Right diabetic foot wound with stage III pressure ulcer on both the medial and lateral side of the right foot. Concerns for possible osteomyelitis of the right fifth metatarsal bone on x-ray. Infectious disease is following. patient had bone scan completed. Awaiting further ID recommendations. ID is reviewing bone scan results with radiologist. Continue with the vancomycin. Patient was seen by vascular surgery no plans for surgical intervention at this time continue with antibiotics 5. History of diabetes type 1, brittle diabetic. Patient has been having episodes of hypoglycemia. Currently has D5 half-normal saline. Hypoglycemia likely due to poor oral intake.Levemir was decreased to 20 units at bedtime. Patient is now starting to eat. Last blood sugar was 158. We'll continue to monitor 6. History of peripheral vascular disease 7. Hyponatremia: Likely secondary to poor oral intake. Improved with IV fluids. Sodium has decreased from 150 down to 141. Continue to monitor 8. Hypokalemia: Patient receiving potassium supplement. Repeat labs in a.m. 9. Hypomagnesemia: Magnesium 1.6 will give 1 g of magnesium sulfate GI prophylaxis Pepcid and DVT prophylaxis subcu I performed an examination of the patient and discussed their management with the physician Coin Machine Service Repairer. I have reviewed the Physician Coin Machine Service Repairer's notes and agree with the documented findings and plan of care
[2019-06-06] MEDS: VANCOMYCIN 1,000 MG in SODIUM CHLORIDE 0.9% 250 ML IVPB SCH (15:18)
[2019-06-06 15:36] VITALS: BMI 23.1
[2019-06-06 15:59] LABS: % Iron Saturation 30.52 (12.00-45.00)
[2019-06-06 16:06] LABS: Ferritin 194.9 ng/mL (10.0-291.0)
--- NOTE | 2019-06-06 16:56 | P.PN ---
Subjective Progress Note Date: 06/06/19 Principal diagnosis: Severe sepsis Osteomyelitis of the right fifth metatarsal bone Diabetic ketoacidosis Severe type 1 diabetes with complications Mild hyperkalemia Peripheral vascular disease 06/06/2019, patient seen eval reexamined during the rounds labs reviewed medicat ions reviewed patient has been doing well currently on remains on IV antibiotics bone scan is not showing a clear-cut osteomyelitis for now ID service is evaluating it, patient is with a PICC line now due to unreliable venous axis 06/05/2019, patient seen eval examined during the rounds she has been started on clear liquid diet denies any chest pain patient remains on broad-spectrum antibiotics for osteomyelitis of the right foot, PICC line to be inserted, bone scan phosphatase has been completed secondary to be done tonight 06/03/2019, patient seen eval examined during the rounds is still intermittently nauseous but more awake and oriented now remains on broad-spectrum antibiotics midline there wasn't inserted yesterday was lost would however a small that her for IV axis has been obtained patient will likely need a PICC line for long-term antibiotics for right foot osteomyelitis which will be done early next week labs reviewed medications reviewed continue current plan of care 06/02/2019, patient seen and evaluated examined she is appears more comfortable diabetic ketoacidosis had resolved patient is off of insulin drip she cannot take much by mouth due to her ongoing intermittent nausea and emesis she is on Zofran however, she is complaining of pain in the right foot for which she is started on low-dose Toradol, overall appears more composed labs reviewed medications reviewed care plan discussed with the staff at length patient is appear more composed today Objective - Vital Signs Vital signs: Vital Signs Temp 99.1 F 06/06/19 16:00 Pulse 92 06/06/19 16:00 Resp 16 06/06/19 16:00 BP 119/48 06/06/19 16:00 Pulse Ox 98 06/06/19 16:00 Intake & Output 06/05/19 06/06/19 06/06/19 18:59 06:59 18:59 Intake Total 750 1050 2305 Output Total 350 200 Balance 197 895 8027 Weight 57.5 kg Intake: Intake, IV Titration 550 1050 1600 Amount Dextrose 5%-0.45% NaCl 1, 216 724 3928 000 ml @ 50 mls/hr IV . Q20H [facility] Rx#:[id number] Potassium Chloride 10 meq 100 In Water For Injection 1 100ml.bag @ 100 mls/hr IVPB Q1HR [facility] Rx#: [id number] Vancomycin 1,000 mg In 250 250 Sodium Chloride 0.9% 250 ml @ 125 mls/hr IVPB Q12H [facility] Rx#:[id number] Oral 200 705 Output: Urine 350 200 Other: Voiding Method Indwelling Catheter Indwelling Catheter Indwelling Catheter # Voids 1 - Exam - Constitutional General appearance: disheveled, mild distress - EENT Eyes: EOMI, PERRLA, poor dentition, normal appearance ENT: normal oropharynx Ears: bilateral: normal - Neck Neck: normal ROM Carotids: bilateral: upstroke normal Thyroid: bilateral: normal size - Respiratory Respiratory: bilateral: CTA - Cardiovascular Rhythm: regular Heart sounds: normal: S1, S2 - Gastrointestinal General gastrointestinal: decreased bowel sounds, distended, soft - Integumentary Integumentary: decreased turgor - Neurologic Neurologic: CNII-XII intact - Musculoskeletal Musculoskeletal: generalized weakness, right sided weakness - Psychiatric Psychiatric: A&O x's 3, appropriate affect Prior surgery of the right foot with osteomyelitis finding as noted above - Labs CBC & Chem 7: 06/06/19 06:45 06/06/19 06:45 Labs: Abnormal Lab Results - Last 24 Hours (Table) 06/05/19 06/06/19 06/06/19 Range/Units 17:01 02:04 02:19 RBC (3.80-5.40) m/uL Hgb (11.4-16.0) gm/dL Hct (34.0-46.0) % Potassium (3.5-5.1) mmol/L POC Glucose (mg/dL) 164 H 54 L 74 L (75-99) mg/dL Iron (50-170) ug/dL TIBC (228-460) ug/dL AST (14-36) U/L Total Protein (6.3-8.2) g/dL Albumin (3.5-5.0) g/dL 06/06/19 06/06/19 06/06/19 Range/Units 06:45 06:45 10:48 RBC 3.49 L (3.80-5.40) m/uL Hgb 10.3 L (11.4-16.0) gm/dL Hct 32.4 L (34.0-46.0) % Potassium 3.1 L (3.5-5.1) mmol/L POC Glucose (mg/dL) (75-99) mg/dL Iron 47 L (50-170) ug/dL TIBC 154 L (228-460) ug/dL AST 45 H (14-36) U/L Total Protein 5.7 L (6.3-8.2) g/dL Albumin 2.8 L (3.5-5.0) g/dL 06/06/19 Range/Units 11:57 RBC (3.80-5.40) m/uL Hgb (11.4-16.0) gm/dL Hct (34.0-46.0) % Potassium (3.5-5.1) mmol/L POC Glucose (mg/dL) 158 H (75-99) mg/dL Iron (50-170) ug/dL TIBC (228-460) ug/dL AST (14-36) U/L Total Protein (6.3-8.2) g/dL Albumin (3.5-5.0) g/dL Microbiology - Last 24 Hours (Table) 06/06/19 11:30 Wound Culture - Preliminary Foot - Right Assessment and Plan Assessment: Severe sepsis Osteomyelitis of the right foot and metatarsal bones versus arthritis of the right foot Diabetic ketoacidosis Severe type 1 diabetes with complications Poorly controlled diabetes mellitus Mild hyperkalemia Peripheral vascular disease Plan: PICC line due to unreliable IV axis IV fluids will gently rehydrate Broad-spectrum antibiotics with IV vancomycin Supportive care Monitor electrolytes and potassium Monitor renal functions Time with Patient: Greater than 30
[2019-06-06 16:57] LABS: Glucose,Whole Blood 348 mg/dL (75-99)
--- NOTE | 2019-06-06 18:18 | PN ---
PROGRESS NOTE DATE OF DICTATION: 06/06/2019 This patient is a 58-year-old pleasant white female admitted to the hospital with acute DKA four days ago. Since being in the hospital she has been having nausea, vomiting and abdominal pain. She was started on antiemetics with Zofran and Tigan suppository as well as Compazine and she is feeling much better today. Her diet was advanced to a regular diet; tolerating well. No new complaints. PHYSICAL EXAMINATION: She appears comfortable. No apparent distress. Vital signs are stable. Blood pressure is 133/86, pulse rate 84 per minute and afebrile. HEENT examination unremarkable. Conjunctivae pink. Sclerae anicteric. Oral cavity no lesions. NECK: No JVD or lymph node enlargement. CHEST: Clear to auscultation. HEART: Regular rate and rhythm. ABDOMEN: Soft. Bowel sounds are positive. No organomegaly. EXTREMITIES: No pedal edema. Diabetic ulcer on the left foot, which is bandaged. SKIN: No rashes. NEUROLOGIC: Alert and oriented x3. No focal deficits. LABS: No labs available from today. IMPRESSION: 1. Acute diabetic ketoacidosis, resolved. 2. Nausea and vomiting have significantly improved. Presently on a regular diet, tolerating well. Remains on antiemetics as needed and IV famotidine. 3. Diabetic foot infection. Remains on IV vancomycin. RECOMMENDATIONS: 1. Continue with Pepcid 20 mg twice daily. 2. Advance diet as tolerated. 3. Small frequent meals. 4. We will sign off at this time. Please call us if needed. Thank you for this consultation. MMODL / IJN: [id number] /
[2019-06-06 20:40] LABS: Glucose,Whole Blood 237 mg/dL (75-99)
[2019-06-06] MEDS: FAMOTIDINE 20 MG TAB PO SCH (21:00)
[2019-06-06] MEDS: INSULIN DETEMIR (LEVEMIR) 100 UNIT/ML SYR SQ SCH (21:01)
--- NOTE | 2019-06-07 | PN ---
PROGRESS NOTE DATE OF SERVICE: 06/06/2019. REASON FOR FOLLOWUP: Right diabetic foot wound with osteomyelitis. INTERVAL HISTORY: The patient is currently afebrile. The patient has been breathing comfortably. The patient denies having any chest pain or shortness of breath or cough. Vomiting has improved. Denies any worsening pain in the right foot area. PHYSICAL EXAMINATION: Blood pressure 132/80 with a pulse of 89, temperature 97.8. She is 100% on room air. General description is a middle-aged female lying in bed in no distress. Respiratory system: Unlabored breathing, clear to auscultation anteriorly. Heart S1, S2. Regular rate and rhythm. Abdomen soft, no tenderness. Right foot lateral border wound still has slough tissue. culture obtained. No foul smelling drainage. LABS: Hemoglobin is 10.1, white count 6.9 with a BUN of 17, creatinine 0.84. X-rays and the bone scan was reviewed with Radiology. This is suspicious for osteomyelitis. DIAGNOSTIC IMPRESSION AND PLAN: Patient with right diabetic foot wound in this patient who did have a wound both on the lateral and medial side with evidence of destruction left 5th metatarsal head. Detailed discussion with vascular surgery for debridement of the wound and deep cultures and possible consideration for MediPort placement for IV antibiotics as the patient could not get the PICC line and monitor her clinical course closely. MMTIAL / BETYN: [id number] /
[2019-06-07 02:07] LABS: Glucose,Whole Blood 93 mg/dL (75-99)
[2019-06-07] MEDS: VANCOMYCIN 1,000 MG in SODIUM CHLORIDE 0.9% 250 ML IVPB SCH ×2 (05:22→17:07)
[2019-06-07] MEDS: ONDANSETRON 4 MG/2 ML VIAL IVP SCH ×3 (05:23→17:08)
[2019-06-07 05:40] LABS: Glucose,Whole Blood 123 mg/dL (75-99)
[2019-06-07 07:09] LABS: Glucose,Whole Blood 133 mg/dL (75-99)
[2019-06-07 08:27] LABS: Basophils % (A) 0 %; Eosinophils # (A) 0.1 k/uL (0-0.7); Eosinophils % (A) 1 %; HCT 31.2 % (34.0-46.0); HGB 9.8 gm/dL (11.4-16.0); Lymphocytes # (A) 1.6 k/uL (1.0-4.8); Lymphocytes % (A) 19 %; MCH 29.1 pg (25.0-35.0); MCHC 31.3 g/dL (31.0-37.0); MCV 93.1 fL (80.0-100.0); Mean Platelet Volume 8.4; Monocytes # (A) 0.4 k/uL (0-1.0); Monocytes % (A) 5 %; Neutrophils # (A) 5.9 k/uL (1.3-7.7); Neutrophils % (A) 73 %; Platelet Count 191 k/uL (150-450); RBC 3.35 m/uL (3.80-5.40); RDW 14.6 % (11.5-15.5); WBC 8.1 k/uL (3.8-10.6)
[2019-06-07 08:39] LABS: Albumin 2.7 g/dL (3.5-5.0); Calcium 8.7 mg/dL (8.4-10.2); Magnesium 1.9 mg/dL (1.6-2.3); Potassium 3.7 mmol/L (3.5-5.1); Total Bilirubin 0.5 mg/dL (0.2-1.3); Total Protein 5.6 g/dL (6.3-8.2)
[2019-06-07 08:40] LABS: Glucose,Whole Blood 349 mg/dL (75-99)
[2019-06-07 08:40] LABS: Glucose,Whole Blood 359 mg/dL (75-99)
[2019-06-07] MEDS: HEPARIN SODIUM,PORCINE 5,000 UNIT/ML 1 ML VIAL SQ SCH ×2 (09:16→20:33)
[2019-06-07] MEDS: INSULIN ASPART (NovoLOG) 100 UNIT/ML VIAL SQ SCH ×6 (09:16→20:46)
[2019-06-07] MEDS: FAMOTIDINE 20 MG TAB PO SCH ×2 (09:16→20:33)
--- NOTE | 2019-06-07 10:42 | P.PN ---
Subjective Progress Note Date: 06/07/19 Principal diagnosis: Severe sepsis Osteomyelitis of the right fifth metatarsal bone Diabetic ketoacidosis Severe type 1 diabetes with complications Mild hyperkalemia Peripheral vascular disease 06/07/2019, patient seen eval examined during the rounds labs reviewed medicatio ns reviewed, PICC line couldn't be done patient is being considered for MediPort 06/06/2019, patient seen eval reexamined during the rounds labs reviewed medications reviewed patient has been doing well currently on remains on IV antibiotics bone scan is not showing a clear-cut osteomyelitis for now ID service is evaluating it, patient is with a PICC line now due to unreliable venous axis 06/05/2019, patient seen eval examined during the rounds she has been started on clear liquid diet denies any chest pain patient remains on broad-spectrum antibiotics for osteomyelitis of the right foot, PICC line to be inserted, bone scan phosphatase has been completed secondary to be done tonight 06/03/2019, patient seen eval examined during the rounds is still intermittently nauseous but more awake and oriented now remains on broad-spectrum antibiotics midline there wasn't inserted yesterday was lost would however a small that her for IV axis has been obtained patient will likely need a PICC line for long-term antibiotics for right foot osteomyelitis which will be done early next week labs reviewed medications reviewed continue current plan of care 06/02/2019, patient seen and evaluated examined she is appears more comfortable diabetic ketoacidosis had resolved patient is off of insulin drip she cannot take much by mouth due to her ongoing intermittent nausea and emesis she is on Zofran however, she is complaining of pain in the right foot for which she is started on low-dose Toradol, overall appears more composed labs reviewed medications reviewed care plan discussed with the staff at length patient is appear more composed today Objective - Vital Signs Vital signs: Vital Signs Temp 98.5 F 06/07/19 07:00 Pulse 83 06/07/19 07:00 Resp 15 06/07/19 07:00 BP 152/78 06/07/19 07:00 Pulse Ox 95 06/07/19 07:00 Intake & Output 06/06/19 06/07/19 06/07/19 18:59 06:59 18:59 Intake Total 2430 240 Output Total 500 175 Balance 1930 -175 240 Weight 57.5 kg Intake: Intake, IV Titration 1600 Amount Dextrose 5%-0.45% NaCl 1, 1600 000 ml @ 50 mls/hr IV . Q[facility]H [facility] Rx#:[id number] Oral 830 240 Output: Urine 250 175 Post Void Residual 250 Other: Voiding Method Indwelling Catheter Bedpan Diaper # Voids 2 - Exam - Constitutional General appearance: disheveled, mild distress - EENT Eyes: EOMI, PERRLA, poor dentition, normal appearance ENT: normal oropharynx Ears: bilateral: normal - Neck Neck: normal ROM Carotids: bilateral: upstroke normal Thyroid: bilateral: normal size - Respiratory Respiratory: bilateral: CTA - Cardiovascular Rhythm: regular Heart sounds: normal: S1, S2 - Gastrointestinal General gastrointestinal: decreased bowel sounds, distended, soft - Integumentary Integumentary: decreased turgor - Neurologic Neurologic: CNII-XII intact - Musculoskeletal Musculoskeletal: generalized weakness, right sided weakness - Psychiatric Psychiatric: A&O x's 3, appropriate affect Prior surgery of the right foot with osteomyelitis finding as noted above - Labs CBC & Chem 7: 06/07/19 07:34 06/07/19 07:34 Labs: Abnormal Lab Results - Last 24 Hours (Table) 06/05/19 06/05/19 06/06/19 Range/Units 20:09 20:15 10:48 RBC (3.80-5.40) m/uL Hgb (11.4-16.0) gm/dL Hct (34.0-46.0) % Chloride (98-107) mmol/L Glucose (74-99) mg/dL POC Glucose (mg/dL) 349 H 359 H (75-99) mg/dL Iron 47 L (50-170) ug/dL TIBC 154 L (228-460) ug/dL Total Protein (6.3-8.2) g/dL Albumin (3.5-5.0) g/dL 06/06/19 06/06/19 06/06/19 Range/Units 11:57 16:43 20:29 RBC (3.80-5.40) m/uL Hgb (11.4-16.0) gm/dL Hct (34.0-46.0) % Chloride (98-107) mmol/L Glucose (74-99) mg/dL POC Glucose (mg/dL) 158 H 348 H 237 H (75-99) mg/dL Iron (50-170) ug/dL TIBC (228-460) ug/dL Total Protein (6.3-8.2) g/dL Albumin (3.5-5.0) g/dL 06/07/19 06/07/19 06/07/19 Range/Units 05:21 06:57 07:34 RBC 3.35 L (3.80-5.40) m/uL Hgb 9.8 L (11.4-16.0) gm/dL Hct 31.2 L (34.0-46.0) % Chloride (98-107) mmol/L Glucose (74-99) mg/dL POC Glucose (mg/dL) 123 H 133 H (75-99) mg/dL Iron (50-170) ug/dL TIBC (228-460) ug/dL Total Protein (6.3-8.2) g/dL Albumin (3.5-5.0) g/dL 06/07/19 Range/Units 07:34 RBC (3.80-5.40) m/uL Hgb (11.4-16.0) gm/dL Hct (34.0-46.0) % Chloride 109 H (98-107) mmol/L Glucose 114 H (74-99) mg/dL POC Glucose (mg/dL) (75-99) mg/dL Iron (50-170) ug/dL TIBC (228-460) ug/dL Total Protein 5.6 L (6.3-8.2) g/dL Albumin 2.7 L (3.5-5.0) g/dL Microbiology - Last 24 Hours (Table) 06/06/19 11:30 Gram Stain - Preliminary Foot - Right Wound Culture - Preliminary Assessment and Plan Assessment: Severe sepsis Osteomyelitis of the right foot and metatarsal bones versus arthritis of the right foot Diabetic ketoacidosis Severe type 1 diabetes with complications Poorly controlled diabetes mellitus Mild hyperkalemia Peripheral vascular disease Plan: PICC line could not be done consider Mediport IV fluids will gently rehydrate Broad-spectrum antibiotics with IV vancomycin Supportive care Monitor electrolytes and potassium Monitor renal functions Time with Patient: Greater than 30
[2019-06-07 11:33] LABS: Glucose,Whole Blood 193 mg/dL (75-99)
--- NOTE | 2019-06-07 12:32 | P.PN ---
Subjective Progress Note Date: 06/07/19 06/05/2019 patient admitted to the hospital with nausea vomiting and diarrhea for 3 days. She's found have evidence of DKA. She does have right wound infections with possible osteomyelitis of the foot. She's undergoing a bone scan today. She's followed closely by infectious disease. She is also being seen by GI service regarding possible gastroparesis. She did have a blood sugar this morning of 123 is now down to 70. She did have episodes of hypoglycemia and the D5 half-normal saline was added yesterday. Sodium level has also improved from 150-141. Patient has been dry heaving and is had poor oral intake. No further episodes of diarrhea. She has any chest pain or shortness of breath. 06/06/2019 patient sitting up in bed comfortably. She was tolerating a clear liquid breakfast. No further episodes of vomiting or dry heaves since yesterday afternoon. No bowel movement for a couple days. Daigle catheter will be removed today. Discussed case with ID service. Levaquin will be discontinued. continue the vancomycin. ID service will be reviewed feeling bone scan findings with rad iologist. Await their further recommendations. Patient did have another blood sugar low at 54 at 2:00 this morning. Blood sugars are now showing improvement patient is now eating. We'll monitor. On 06/07/2019 patient is resting comfortably in bed. No further episodes of nausea or vomiting. She remains on vancomycin for wounds. No episodes of hypoglycemia. Dr. Chapa to discuss case with vascular surgery for possible debridement. At this time patient denies chest pain or shortness breath. Patient denies nausea vomiting or diarrhea. Patient denies any urinary burning or frequency Objective - Vital Signs Vital signs: Vital Signs Temp 98.5 F 06/07/19 07:00 Pulse 83 06/07/19 07:00 Resp 15 06/07/19 07:00 BP 152/78 06/07/19 07:00 Pulse Ox 95 06/07/19 07:00 Intake & Output 06/06/19 06/07/19 06/07/19 18:59 06:59 18:59 Intake Total 2430 240 Output Total 500 175 Balance 1930 -175 240 Weight 57.5 kg Intake: Intake, IV Titration 1600 Amount Dextrose 5%-0.45% NaCl 1, 1600 000 ml @ 50 mls/hr IV . Q20H [facility] Rx#:[id number] Oral 830 240 Output: Urine 250 175 Post Void Residual 250 Other: Voiding Method Indwelling Catheter Bedpan Diaper # Voids 2 - Exam Head normocephalic Neck supple Lungs clear to auscultation bilaterally no wheezing or crackles Heart regular rate and rhythm S1-S2, no rub or gallop Abdomen is soft nontender nondistended positive bowel sounds no hepatosplenomegaly Extremities right foot ulcers noted on the medial and lateral aspect of the foot. Are large and dry Neuro alert and orientated to 3 - Labs CBC & Chem 7: 06/07/19 07:34 06/07/19 07:34 Labs: Abnormal Lab Results - Last 24 Hours (Table) 06/05/19 06/05/19 06/06/19 Range/Units 20:09 20:15 10:48 RBC (3.80-5.40) m/uL Hgb (11.4-16.0) gm/dL Hct (34.0-46.0) % Chloride (98-107) mmol/L Glucose (74-99) mg/dL POC Glucose (mg/dL) 349 H 359 H (75-99) mg/dL Iron 47 L (50-170) ug/dL TIBC 154 L (228-460) ug/dL Total Protein (6.3-8.2) g/dL Albumin (3.5-5.0) g/dL 06/06/19 06/06/19 06/07/19 Range/Units 16:43 20:29 05:21 RBC (3.80-5.40) m/uL Hgb (11.4-16.0) gm/dL Hct (34.0-46.0) % Chloride (98-107) mmol/L Glucose (74-99) mg/dL POC Glucose (mg/dL) 348 H 237 H 123 H (75-99) mg/dL Iron (50-170) ug/dL TIBC (228-460) ug/dL Total Protein (6.3-8.2) g/dL Albumin (3.5-5.0) g/dL 06/07/19 06/07/19 06/07/19 Range/Units 06:57 07:34 07:34 RBC 3.35 L (3.80-5.40) m/uL Hgb 9.8 L (11.4-16.0) gm/dL Hct 31.2 L (34.0-46.0) % Chloride 109 H (98-107) mmol/L Glucose 114 H (74-99) mg/dL POC Glucose (mg/dL) 133 H (75-99) mg/dL Iron (50-170) ug/dL TIBC (228-460) ug/dL Total Protein 5.6 L (6.3-8.2) g/dL Albumin 2.7 L (3.5-5.0) g/dL 06/07/19 Range/Units 11:22 RBC (3.80-5.40) m/uL Hgb (11.4-16.0) gm/dL Hct (34.0-46.0) % Chloride (98-107) mmol/L Glucose (74-99) mg/dL POC Glucose (mg/dL) 193 H (75-99) mg/dL Iron (50-170) ug/dL TIBC (228-460) ug/dL Total Protein (6.3-8.2) g/dL Albumin (3.5-5.0) g/dL Microbiology - Last 24 Hours (Table) 06/06/19 11:30 Gram Stain - Preliminary Foot - Right Wound Culture - Preliminary Assessment and Plan Assessment: 1. Diabetic ketoacidosis present on admission now improved 2. Gastroparesis with poor oral intake. patient evaluated by GI service. At this time they're advancing diet. And only plan for any further endoscopy if patient has vomiting. 3. Nausea vomiting and diarrhea likely secondary to a gastroenteritis. Patient still having episodes of dry heaves. Continue with the IV Pepcid, Zofran as needed. Symptoms have resolved 4. Right diabetic foot wound with stage III pressure ulcer on both the medial and lateral side of the right foot. Concerns for possible osteomyelitis of the right fifth metatarsal bone on x-ray. Infectious disease is following. patient had bone scan completed. Awaiting further ID recommendations. ID is reviewing bone scan results with radiologist. Continue with the vancomycin. Patient was seen by vascular surgery no plans for surgical intervention at this time continue with antibiotics 5. History of diabetes type 1, brittle diabetic. Patient has been having episodes of hypoglycemia. Currently has D5 half-normal saline. Hypoglycemia likely due to poor oral intake.Levemir was decreased to 20 units at bedtime. Patient is now starting to eat. Last blood sugar was 158. We'll continue to monitor. No further episodes of hypoglycemia 6. History of peripheral vascular disease 7. Hyponatremia: Likely secondary to poor oral intake. Improved with IV fluids. Sodium has decreased from 150 down to 141. Continue to monitor 8. Hypokalemia: Patient receiving potassium supplement. Repeat labs in a.m. 9. Hypomagnesemia: Magnesium 1.6 will give 1 g of magnesium sulfate GI prophylaxis Pepcid. DVT prophylaxis subcu heparin I performed an examination of the patient and discussed their management with the Nurse Practitioner. I have reviewed the Nurse Practitioner's notes and agree with the documented findings and plan of care
[2019-06-07 16:51] LABS: Glucose,Whole Blood 339 mg/dL (75-99)
[2019-06-07] MEDS: DEXTROSE 5%-0.45% NACL 1,000 ML IV SCH ×2 (18:45→20:34)
[2019-06-07 20:21] LABS: Glucose,Whole Blood 373 mg/dL (75-99)
[2019-06-07] MEDS: INSULIN DETEMIR (LEVEMIR) 100 UNIT/ML SYR SQ SCH ×2 (20:21→21:44)
[2019-06-07] MEDS ORDERED: INSULIN DETEMIR (LEVEMIR) 100 UNIT/ML SYR SQ ONE (21:00)
--- NOTE | 2019-06-07 21:00 | PN ---
PROGRESS NOTE DATE OF SERVICE: 06/07/2019 REASON FOR FOLLOWUP: Right diabetic foot infection with osteomyelitis. INTERVAL HISTORY: The patient is currently afebrile. She has been breathing comfortably. Her nausea and vomiting have resolved. She was tolerating a regular diet. No chest pain. No abdominal pain. No diarrhea. PHYSICAL EXAMINATION: Blood pressure is 174/82 with a pulse of 89, temperature 98.2. She is 96% on room air. General description is a middle-aged female lying in bed in no distress. RESPIRATORY SYSTEM: Unlabored breathing. Clear to auscultation anteriorly. HEART: S1, S2. Regular rate and rhythm. ABDOMEN: Soft. No tenderness. Right foot is currently dressed up. No obvious drainage on the dressing. LABS: Hemoglobin 9. , white count 8.1. BUN of 11, creatinine 0.87. DIAGNOSTIC IMPRESSION AND PLAN: Patient with right diabetic foot wound with a pressure ulcer on both the medial and lateral sides with evidence of osteomyelitis on the right lateral foot at the base of the fifth toe. The case was discussed in detail with the surgeon, who is recommending more extensive surgery and possible transmetatarsal amputation. Okay to discharge the patient home tomorrow on mg twice a day and he will follow the patient next week. This has been discussed in detail with the nurse practitioner for the admitting team. Continue local wound care with Medihoney and continue with supportive care. MMTIAL / CHRISTOFER: [id number] /
[2019-06-07 21:39] LABS: Glucose,Whole Blood 317 mg/dL (75-99)
[2019-06-08] MEDS: ONDANSETRON 4 MG/2 ML VIAL IVP SCH ×3 (00:13→07:58)
[2019-06-08 01:56] LABS: Glucose,Whole Blood 115 mg/dL (75-99)
[2019-06-08 02:33] LABS: Glucose,Whole Blood 120 mg/dL (75-99)
[2019-06-08] MEDS: VANCOMYCIN 1,000 MG in SODIUM CHLORIDE 0.9% 250 ML IVPB SCH (05:00)
[2019-06-08 07:06] LABS: Glucose,Whole Blood 99 mg/dL (75-99)
[2019-06-08 07:55] LABS: Basophils # (A) 0.1 k/uL (0-0.2); Basophils % (A) 1 %; Eosinophils # (A) 0.1 k/uL (0-0.7); Eosinophils % (A) 3 %; HCT 29.2 % (34.0-46.0); HGB 9.4 gm/dL (11.4-16.0); Lymphocytes # (A) 1.5 k/uL (1.0-4.8); Lymphocytes % (A) 26 %; MCH 29.6 pg (25.0-35.0); MCHC 32.3 g/dL (31.0-37.0); MCV 91.8 fL (80.0-100.0); Mean Platelet Volume 9.5; Monocytes # (A) 0.4 k/uL (0-1.0); Monocytes % (A) 7 %; Neutrophils # (A) 3.6 k/uL (1.3-7.7); Neutrophils % (A) 63 %; Platelet Count 189 k/uL (150-450); RBC 3.18 m/uL (3.80-5.40); RDW 14.9 % (11.5-15.5); WBC 5.8 k/uL (3.8-10.6)
[2019-06-08] MEDS: INSULIN ASPART (NovoLOG) 100 UNIT/ML VIAL SQ SCH ×2 (07:58→12:47)
[2019-06-08] MEDS: HEPARIN SODIUM,PORCINE 5,000 UNIT/ML 1 ML VIAL SQ SCH (08:07)
[2019-06-08] MEDS: FAMOTIDINE 20 MG TAB PO SCH (08:07)
[2019-06-08 08:09] LABS: Albumin 2.6 g/dL (3.5-5.0); Calcium 8.5 mg/dL (8.4-10.2); Potassium 3.5 mmol/L (3.5-5.1); Total Bilirubin 0.4 mg/dL (0.2-1.3); Total Protein 5.4 g/dL (6.3-8.2)
[2019-06-08 08:28] VITALS: RESP 15
[2019-06-08] MEDS ORDERED: POTASSIUM CHLORIDE ER 20 MEQ TAB.ER PO STA (10:02)
[2019-06-08] MEDS ORDERED: FERROUS SULFATE 325 MG TAB PO SCH (10:30)
[2019-06-08 11:39] LABS: Glucose,Whole Blood 149 mg/dL (75-99)
--- NOTE | 2019-06-08 12:23 | CDI ---
Documentation Clarification Form Date: 06/08/2019 11:57:16 AM From: Janice Freeman RN CCDS Admit Date: 06/01/2019 01:13:00 PM Patient Name: Melva Jackson Visit Number: [id number] Discharge Date: ATTENTION: The Clinical Documentation Specialists (CDI) and [facility] Coding Staff appreciate your assistance in clarifying documentation. Please respond to the clarification below the line at the bottom and electronically sign. The CDI & [facility] Coding staff will review the response and follow-up if needed. Please note: Queries are made part of the Legal Health Record. If you have any questions, please contact the author of this message via ITS. Dr. Sherlyn Chen Severe Sepsis is documented in Pulmonary consult and in subsequent progress notes. History/Risk Factors: 58-year-old female presents to the ED via EMS for nausea, vomiting, diarrhea and high blood sugars. Medical history Diabetic foot wound, DM, Asthma, CAD, Anemia, Clinical Indicators: Vss on admission 136/58 100 98.4 98% ra Wbc 8.4; VBG pCO2 18; VBG HC03 7; Glucose 829; Lactic acid 2.4; A1c 9.0; Acetone, Qual positive Treatment: 06/01/19/20 .9ns 2L bolus, Insulin 101mls @ 5.498 mls/hr iv [id number]; 0.9ns 1000mls @ 200mls/hr iv Q5H mikhail, Levaquin ivpb x1; 06/01/2019 thru current date Vancomycin ivpb; D5% 1/2ns [id number] Definition of Present on Admission (POA): A diagnosis present at the time the order for admission to inpatient status was written. For each diagnosis, documentation must be clear to determine if the condition was present at the time of the patients inpatient admission or developed during the hospital stay. Please clarify Sepsis ____ Sepsis Ruled Out ____Y = Yes, the condition was present at the time of the order for inpatient admission. ____N = No, the condition was not present at the time of the order for inpatient admission. ____W = Clinically undetermined if the condition was present at the time of the order for inpatient admission. (Last Revision: Apr 2018) NO the condition was not present at the time of the order for inpatient admission [facility]
--- NOTE | 2019-06-08 14:30 | P.DS ---
Providers Date of admission: 06/01/19 13:13 Expected date of discharge: 06/08/19 Attending physician: Sherlyn Chen Consults: 06/01/19 13:13 Consult Physician Stat Consulting Provider: Darius Hernandez Consult Reason/Comments: icu patient Do you want consulting provider notified?: Yes 06/01/19 14:47 Consult Physician Routine Consulting Provider: Rufina Chapa Consult Reason/Comments: diabetic foot infection Do you want consulting provider notified?: Yes 06/01/19 19:15 Consult Physician Routine Consulting Provider: Mehul Melgoza Consult Reason/Comments: nausea/vomiting Do you want consulting provider notified?: Yes 06/02/19 12:31 Consult Physician Routine Consulting Provider: Himanshu Cadena Consult Reason/Comments: foot wound Do you want consulting provider notified?: Yes Primary care physician: Sherlyn Chen [facility] Course: Discharge diagnosis 1. Diabetic ketoacidosis present on admission now improved 2. Gastroparesis with poor oral intake. Now resolved. Patient seen by GI service. No plan for endoscopy during this admission 3. Nausea vomiting and diarrhea likely secondary to a gastroenteritis. Symptoms have resolved and tolerating diet 4. Right diabetic foot wound with stage III pressure ulcer on both the medial and lateral side of the right foot with evidence of osteomyelitis on the right lateral foot at the base of the fifth toe. Patient followed by infectious disease and vascular surgery. This surgery is recommending surgical intervention outpatient on Wednesday. Nursing staff is checking on the exact appointment date and time. 5. History of diabetes type 1, brittle diabetic. Patient has been having episodes of hypoglycemia. Patient's Levemir was decreased to 22 units during this admission. And she will continue with her Humalog sliding scale. Sliding scale printed out per nursing staff. 6. History of peripheral vascular disease 7. Hyponatremia: Likely secondary to poor oral intake. Improved with IV fluids. Sodium has decreased from 150 down to 141. Continue to monitor 8. Hypokalemia: Patient receiving potassium supplement. Potassium at discharge 3.5. 9. Hypomagnesemia: Resolved. Magnesium at discharge 2.1 Hospital course 06/05/2019 patient admitted to the hospital with nausea vomiting and diarrhea for 3 days. She's found have evidence of DKA. She does have right wound infections with possible osteomyelitis of the foot. She's undergoing a bone scan today. She's followed closely by infectious disease. She is also being seen by GI service regarding possible gastroparesis. She did have a blood sugar this morning of 123 is now down to 70. She did have episodes of hypoglycemia and the D5 half-normal saline was added yesterday. Sodium level has also improved from 150-141. Patient has been dry heaving and is had poor oral intake. No further episodes of diarrhea. She has any chest pain or shortness of breath. 06/06/2019 patient sitting up in bed comfortably. She was tolerating a clear liquid breakfast. No further episodes of vomiting or dry heaves since yesterday afternoon. No bowel movement for a couple days. Daigle catheter will be removed today. Discussed case with ID service. Levaquin will be discontinued. continue the vancomycin. ID service will be reviewed feeling bone scan findings with radiologist. Await their further recommendations. Patient did have another blood sugar low at 54 at 2:00 this morning. Blood sugars are now showing improvement patient is now eating. We'll monitor. On 06/07/2019 patient is resting comfortably in bed. No further episodes of nausea or vomiting. She remains on vancomycin for wounds. No episodes of hypoglycemia. Dr. Chapa to discuss case with vascular surgery for possible debridement. At this time patient denies chest pain or shortness breath. Patient denies nausea vomiting or diarrhea. Patient denies any urinary burning or frequency 06/08/2019 patient is medically stable for discharge. She has been cleared by all consulting physicians for discharge. Patient presented with diabetic ketoacidosis on admission with also evidence of a gastroenteritis. The symptoms have improved. Her insulin dose has been adjusted. The Levemir has been decreased from 25-20 units at bedtime. The NovoLog scheduled has been stopped. And she will continue just with a sliding scale coverage. Nursing staff will put out a sliding scale for patient and family. For patient's right diabetic foot wound she will continue with doxycycline 100 mg twice a day for 7 more days. Patient also to follow-up with Dr. Cadena on Wednesday for surgical intervention on that right foot. Patient is currently tolerating diet. Vomiting and diarrhea resolved. She was seen by GI service during this admission no intervention required. Patient's hemoglobin at discharge is 9.4. She has known iron deficiency anemia no active signs of bleeding. Iron was low at 47. We'll continue with ferrous sulfate at 325 mg twice a day. Recommend checking CBC and BMP in 3 days. Patient has appointment with Dr. Cadena on Wednesday for surgery on her right foot Follow up with Dr. Chen in 1 week Follow-up with Dr. Long in 1 week Follow-up with Dr. Chapa at wound care center in one week [facility] to follow I performed an examination of the patient and discussed their management with the physician Logistics Vice President. I have reviewed the Physician Logistics Vice President's notes and agree with the documented findings and plan of care Patient Condition at Discharge: Stable Plan - Discharge Summary Discharge Rx Participant: No New Discharge Prescriptions: New Ferrous Sulfate [Iron (65 MG Elemental)] 325 mg PO BID #60 tab Insulin Detemir (Levemir) [Levemir] 22 unit SQ HS #1 vial INSULIN ASPART (NovoLOG) [NovoLOG (formulary)] 0 unit SQ ACHS vial Doxycycline [Vibramycin] 100 mg PO BID 7 Days #14 capsule Continue Albuterol Inhaler [Ventolin Hfa Inhaler] 2 puff INHALATION RT-Q4H PRN PRN Reason: Shortness Of Breath Famotidine [Pepcid] 20 mg PO DAILY Valproic Acid [Depakene] 250 mg PO DAILY Ergocalciferol [Vitamin D2 (DRISDOL)] 50,000 unit PO SA HYDROcodone/APAP 10-325MG [[place] 10-325] 1 tab PO Q6H PRN PRN Reason: Pain DULoxetine HCL [Cymbalta] 60 mg PO DAILY ALPRAZolam [Xanax] 1 mg PO Q8H PRN PRN Reason: Anxiety Ondansetron [Zofran] 4 mg PO DAILY PRN PRN Reason: Nausea QUEtiapine [SEROquel] 100 mg PO HS QUEtiapine FUMARATE [SEROquel] 25 mg PO BID Atorvastatin [Lipitor] 20 mg PO DAILY Vitamin B Complex With Vit C 1 tab PO DAILY Discontinued Aspirin EC [Ecotrin Low Dose] 81 mg PO DAILY Ferrous Sulfate [Iron (65 MG Elemental)] 325 mg PO DAILY INSULIN LISPRO (humaLOG) [humaLOG] 6 units SQ AC-TID Insulin Glargine [Lantus] 25 unit SQ HS Discharge Medication List Albuterol Inhaler [Ventolin Hfa Inhaler] 2 puff INHALATION RT-Q4H PRN 07/19/15 [History] Famotidine [Pepcid] 20 mg PO DAILY 07/19/15 [History] Valproic Acid [Depakene] 250 mg PO DAILY 07/19/15 [History] Ergocalciferol [Vitamin D2 (DRISDOL)] 50,000 unit PO SA 03/05/16 [History] HYDROcodone/APAP 10-325MG [[place] 10-325] 1 tab PO Q6H PRN 10/03/16 [History] DULoxetine HCL [Cymbalta] 60 mg PO DAILY 02/16/17 [History] ALPRAZolam [Xanax] 1 mg PO Q8H PRN 02/19/17 [History] Ondansetron [Zofran] 4 mg PO DAILY PRN 09/06/17 [History] Atorvastatin [Lipitor] 20 mg PO DAILY 12/28/18 [History] QUEtiapine FUMARATE [SEROquel] 25 mg PO BID 12/28/18 [History] QUEtiapine [SEROquel] 100 mg PO HS 12/28/18 [History] Vitamin B Complex With Vit C 1 tab PO DAILY 06/01/19 [History] Doxycycline [Vibramycin] 100 mg PO BID 7 Days #14 capsule 06/08/19 [Rx] Ferrous Sulfate [Iron (65 MG Elemental)] 325 mg PO BID #60 tab 06/08/19 [Rx] INSULIN ASPART (NovoLOG) [NovoLOG (formulary)] 0 unit SQ ACHS vial 06/08/19 [Rx] Insulin Detemir (Levemir) [Levemir] 22 unit SQ HS #1 vial 06/08/19 [Rx] Follow up Appointment(s)/Referral(s): [facility], [NON-STAFF] - As Needed Wound Healing,Center [NON-STAFF] - 1 Week (With Dr. Cadena) Darius Hernandez MD [STAFF PHYSICIAN] - 1 Week Sherlyn Chen MD [Primary Care Provider] - 1 Week Himanshu Cadena DO [Doctor of Osteopathic Medicine] - 06/12/19 Activity/Diet/Wound Care/Special Instructions: Diet: diabetic Activity: as tolerated Hold aspirin for surgery on Wednesday Discharge Disposition: HOME WITH HOME HEALTH SERVICES
--- NOTE | 2019-06-08 14:44 | P.PN ---
Subjective Progress Note Date: 06/08/19 Principal diagnosis: Severe sepsis Osteomyelitis of the right fifth metatarsal bone Diabetic ketoacidosis Severe type 1 diabetes with complications Mild hyperkalemia Peripheral vascular disease 06/08/2019, patient seen and evaluated examined during the rounds labs reviewed medications reviewed care plan discussed, patient is likely to be discharged later on today, patient is being followed by vascular infectious disease for possible osteomyelitis 06/07/2019, patient seen eval examined during the rounds labs reviewed medications reviewed, PICC line couldn't be done patient is being considered for MediPort 06/06/2019, patient seen eval reexamined during the rounds labs reviewed medications reviewed patient has been doing well currently on remains on IV antibiotics bone scan is not showing a clear-cut osteomyelitis for now ID service is evaluating it, patient is with a PICC line now due to unreliable venous axis 06/05/2019, patient seen eval examined during the rounds she has been started on clear liquid diet denies any chest pain patient remains on broad-spectrum antibiotics for osteomyelitis of the right foot, PICC line to be inserted, bone scan phosphatase has been completed secondary to be done tonight 06/03/2019, patient seen eval examined during the rounds is still intermittently nauseous but more awake and oriented now remains on broad-spectrum antibiotics midline there wasn't inserted yesterday was lost would however a small that her for IV axis has been obtained patient will likely need a PICC line for long-term antibiotics for right foot osteomyelitis which will be done early next week labs reviewed medications reviewed continue current plan of care 06/02/2019, patient seen and evaluated examined she is appears more comfortable diabetic ketoacidosis had resolved patient is off of insulin drip she cannot take much by mouth due to her ongoing intermittent nausea and emesis she is on Zofran however, she is complaining of pain in the right foot for which she is started on low-dose Toradol, overall appears more composed labs reviewed medications reviewed care plan discussed with the staff at length patient is appear more composed today Objective - Vital Signs Vital signs: Vital Signs Temp 98.6 F 06/08/19 07:00 Pulse 81 06/08/19 07:00 Resp 15 06/08/19 07:00 BP 146/77 06/08/19 07:00 Pulse Ox 98 06/08/19 07:00 Intake & Output 06/07/19 06/08/19 06/08/19 18:59 06:59 18:59 Intake Total 365 1050 300 Balance 365 1050 300 Intake: Intake, IV Titration 1050 Amount Dextrose 5%-0.45% NaCl 1, 800 000 ml @ 50 mls/hr IV . Q20H HUMAIRA Rx#:[id number] Vancomycin 1,000 mg In 250 Sodium Chloride 0.9% 250 ml @ 125 mls/hr IVPB Q12H HUMAIRA Rx#:[id number] Oral 365 300 Other: Voiding Method Diaper Diaper # Voids 2 2 - Exam - Constitutional General appearance: disheveled, mild distress - EENT Eyes: EOMI, PERRLA, poor dentition, normal appearance ENT: normal oropharynx Ears: bilateral: normal - Neck Neck: normal ROM Carotids: bilateral: upstroke normal Thyroid: bilateral: normal size - Respiratory Respiratory: bilateral: CTA - Cardiovascular Rhythm: regular Heart sounds: normal: S1, S2 - Gastrointestinal General gastrointestinal: decreased bowel sounds, distended, soft - Integumentary Integumentary: decreased turgor - Neurologic Neurologic: CNII-XII intact - Musculoskeletal Musculoskeletal: generalized weakness, right sided weakness - Psychiatric Psychiatric: A&O x's 3, appropriate affect Prior surgery of the right foot with osteomyelitis finding as noted above - Labs CBC & Chem 7: 06/08/19 07:22 06/08/19 07:22 Labs: Abnormal Lab Results - Last 24 Hours (Table) 06/07/19 06/07/19 06/07/19 Range/Units 16:49 20:10 21:38 RBC (3.80-5.40) m/uL Hgb (11.4-16.0) gm/dL Hct (34.0-46.0) % Chloride (98-107) mmol/L POC Glucose (mg/dL) 339 H 373 H 317 H (75-99) mg/dL Total Protein (6.3-8.2) g/dL Albumin (3.5-5.0) g/dL 06/08/19 06/08/19 06/08/19 Range/Units 01:39 02:21 07:22 RBC 3.18 L (3.80-5.40) m/uL Hgb 9.4 L (11.4-16.0) gm/dL Hct 29.2 L (34.0-46.0) % Chloride (98-107) mmol/L POC Glucose (mg/dL) 115 H 120 H (75-99) mg/dL Total Protein (6.3-8.2) g/dL Albumin (3.5-5.0) g/dL 06/08/19 06/08/19 Range/Units 07:22 11:26 RBC (3.80-5.40) m/uL Hgb (11.4-16.0) gm/dL Hct (34.0-46.0) % Chloride 109 H (98-107) mmol/L POC Glucose (mg/dL) 149 H (75-99) mg/dL Total Protein 5.4 L (6.3-8.2) g/dL Albumin 2.6 L (3.5-5.0) g/dL Microbiology - Last 24 Hours (Table) 06/06/19 11:30 Gram Stain - Final Foot - Right Wound Culture - Final Staphylococcus epidermidis Assessment and Plan Assessment: Severe sepsis Osteomyelitis of the right foot and metatarsal bones versus arthritis of the right foot Diabetic ketoacidosis Severe type 1 diabetes with complications Poorly controlled diabetes mellitus Mild hyperkalemia Peripheral vascular disease Plan: PICC line could not be done consider Mediport IV fluids will gently rehydrate Broad-spectrum antibiotics with IV vancomycin Supportive care Monitor electrolytes and potassium Monitor renal functions Time with Patient: Greater than 30
[2019-06-08 14:56] VITALS: BP 150/90; PULSE 72; TEMP 98.5
--- NOTE | 2019-06-09 05:41 | PN ---
PROGRESS NOTE DATE OF SERVICE: 06/08/2019 REASON FOR FOLLOWUP: Right diabetic foot wound with osteomyelitis. INTERVAL HISTORY: The patient is currently afebrile. The patient has been breathing comfortably. The patient denies having any chest pain or shortness of breath or cough. No nausea, vomiting. No abdominal pain. No diarrhea. PHYSICAL EXAMINATION: Blood pressure is 150/90 with a pulse of 72, temperature 98.5. She is 98% on room air. General description is a middle-aged female, up in the bed in no distress. RESPIRATORY SYSTEM: Unlabored breathing. Clear to auscultation anteriorly. HEART: S1, S2. Regular rate and rhythm. ABDOMEN: Soft. No tenderness. Right foot is currently dressed up. No obvious drainage on the dressing. LABS: Hemoglobin 9.4, white count of 5.8, BUN 12, creatinine of 0.89. Wound culture with Staph epi. DIAGNOSTIC IMPRESSION AND PLAN: Patient with right diabetic foot wound with concern for underlying osteomyelitis. Surgery is recommending possible transmetatarsal amputation, has been scheduled for Wednesday. Patient will be able to go home on oral doxycycline in a patient currently not toxic or septic. has been discussed in detail with the nurse practitioner for admitting team. MMODL / IJN: [id number] /
--- NOTE | 2019-06-09 10:17 | P.PN ---
Progress Note - Text Progress Note Date: 06/09/19 The patient was discharged to home 06/08/19 to return as an outpatient for surgery 06/12/[address] Cadena. She was discharged in stable condition, but does need surgical debridement with possible transmetatarsal amputation of the right foot for treatment of osteomyeltis in conjunction with antibiotics prescribed by Dr. Chapa from infectious disease. Physical exam at the time of discharge revealed a stable woman with no cardiac or respiratory issues, better control of her blood sugars, no further nausea or vomitting, with chronic right foot ulcers being treated with Doxycycline and local wound care with Medihoney dressing changes daily.
== END 2019-06-08 16:22 | disposition home health service (06) | DRG 637 ==
LOC: EC 09:36 → 2SICU 13:13 → 4SSUR 06-02 23:05
PROVIDERS: ADMIT Internal Medicine; ATTEND Internal Medicine
PROC: 05HB33Z Insertion of Infusion Device into Right Basilic Vein, Percutaneous Approach (ICD-10-PCS; principal; 2019-06-01 10:55)
DX: E10.10 Type 1 diabetes mellitus with ketoacidosis without coma (principal); L89.513 Pressure ulcer of right ankle, stage 3; R65.20 Severe sepsis without septic shock; A41.9 Sepsis, unspecified organism; E87.1 Hypo-osmolality and hyponatremia; I13.0 Hypertensive heart and chronic kidney disease with heart failure and stage 1 through stage 4 chronic kidney disease, or unspecified chronic kidney disease; I69.351 Hemiplegia and hemiparesis following cerebral infarction affecting right dominant side; M86.9 Osteomyelitis, unspecified; D50.9 Iron deficiency anemia, unspecified; E03.9 Hypothyroidism, unspecified; E10.22 Type 1 diabetes mellitus with diabetic chronic kidney disease; E10.43 Type 1 diabetes mellitus with diabetic autonomic (poly)neuropathy; E10.51 Type 1 diabetes mellitus with diabetic peripheral angiopathy without gangrene; E10.649 Type 1 diabetes mellitus with hypoglycemia without coma; E78.5 Hyperlipidemia, unspecified; E83.42 Hypomagnesemia; E87.5 Hyperkalemia; E87.6 Hypokalemia; F41.9 Anxiety disorder, unspecified; F31.9 Bipolar disorder, unspecified; I25.10 Atherosclerotic heart disease of native coronary artery without angina pectoris; I50.9 Heart failure, unspecified; J44.9 Chronic obstructive pulmonary disease, unspecified; Z96.1 Presence of intraocular lens; N18.3 Chronic kidney disease, stage 3 (moderate); K31.84 Gastroparesis; E10.69 Type 1 diabetes mellitus with other specified complication; E10.319 Type 1 diabetes mellitus with unspecified diabetic retinopathy without macular edema; I25.2 Old myocardial infarction; Z79.82 Long term (current) use of aspirin; Z79.4 Long term (current) use of insulin; Z82.49 Family history of ischemic heart disease and other diseases of the circulatory system; Z79.899 Other long term (current) drug therapy; Z83.3 Family history of diabetes mellitus; Z82.5 Family history of asthma and other chronic lower respiratory diseases; Z87.891 Personal history of nicotine dependence; Z95.5 Presence of coronary angioplasty implant and graft; Z90.710 Acquired absence of both cervix and uterus; Z86.718 Personal history of other venous thrombosis and embolism; Z86.14 Personal history of Methicillin resistant Staphylococcus aureus infection; Z88.0 Allergy status to penicillin; Z88.8 Allergy status to other drugs, medicaments and biological substances; Z88.1 Allergy status to other antibiotic agents; Z91.030 Bee allergy status
CPT/HCPCS: 36410; 36415; 74018; 76937; 78315; 80048; 80053; 80202; 81003; 82009; 82728; 82803; 83036; 83540; 83550; 83605; 83690; 83735; 84100; 84484; 85025; 85652; 86140; 87070; 87077; 87186; 87205; 93005; 96361; 96374; 96375; 99285

== ENCOUNTER 2019-06-09 16:21 | Inpatient (IN) | payer OTHER ==
[2019-06-09 16:56] LABS: Glucose,Whole Blood >600 mg/dL (75-99)
[2019-06-09] MEDS ORDERED: SODIUM CHLORIDE 0.9% 1,000 ML IV STA (17:24)
[2019-06-09 17:30] LABS: Basophils % (A) 0 %; Eosinophils # (A) 0.1 k/uL (0-0.7); Eosinophils % (A) 1 %; HCT 33.9 % (34.0-46.0); HGB 10.5 gm/dL (11.4-16.0); Hypochromasia Moderate; Lymphocytes # (A) 1.2 k/uL (1.0-4.8); Lymphocytes % (A) 14 %; MCH 29.8 pg (25.0-35.0); MCV 96.2 fL (80.0-100.0); Mean Platelet Volume 9.9; Monocytes # (A) 0.3 k/uL (0-1.0); Monocytes % (A) 4 %; Neutrophils % (A) 80 %; Platelet Count 202 k/uL (150-450); RBC 3.52 m/uL (3.80-5.40); RDW 14.8 % (11.5-15.5); WBC 8.7 k/uL (3.8-10.6)
[2019-06-09 17:35] LABS: ALT 39 U/L (4-34); AST 66 U/L (14-36); African American GFR (CKD) 82 (>60 ml/min/1.73 sqM); Albumin 3.3 g/dL (3.5-5.0); Alkaline Phosphatase 104 U/L (38-126); Amylase <30 U/L (30-110); Anion Gap 9 mmol/L; Blood Urea Nitrogen 18 mg/dL (7-17); Calcium 9.2 mg/dL (8.4-10.2); Carbon Dioxide 26 mmol/L (22-30); Chloride 102 mmol/L (98-107); Non-African American GFR(CKD) 71 (>60 ml/min/1.73 sqM); Sodium 137 mmol/L (137-145); Total Bilirubin 0.7 mg/dL (0.2-1.3); Total Protein 6.2 g/dL (6.3-8.2)
[2019-06-09 17:42] LABS: INR 0.9 (<1.2); Prothrombin Time 9.6 sec (9.0-12.0)
[2019-06-09 17:44] LABS: Partial Thromboplastin Time 16.4 sec (22.0-30.0)
[2019-06-09 17:49] LABS: Glucose 649 mg/dL (74-99)
[2019-06-09] MEDS ORDERED: SODIUM CHLORIDE 0.9% 720 ML IV STA (18:19)
[2019-06-09] MEDS ORDERED: INSULIN REGULAR 100 UNIT/ML VIAL IV ONE (18:22)
[2019-06-09] MEDS ORDERED: Magnesium Replacement Protocol 1 EACH MISC MISCELLANE PRN (18:23)
[2019-06-09] MEDS ORDERED: Potassium Replacement Protocol 1 EACH MISC MISCELLANE PRN (18:23)
[2019-06-09] MEDS: INSULIN REGULAR 100 UNIT in SODIUM CHLORIDE 0.9% 100 ML IV SCH (18:38)
[2019-06-09 19:01] LABS: VBG PH 7.61 (7.31-7.41)
[2019-06-09 19:03] LABS: Glucose,Whole Blood 565 mg/dL (75-99)
[2019-06-09 20:11] LABS: Glucose,Whole Blood 448 mg/dL (75-99)
[2019-06-09] MEDS: SODIUM CHLORIDE 0.9% 1,000 ML IV SCH ×2 (20:14→23:26)
[2019-06-09] MEDS ORDERED: NALOXONE 0.4 MG/ML 1 ML VIAL IV PRN (20:19)
--- NOTE | 2019-06-09 20:26 | ED ---
General Adult HPI - General Chief complaint: Recheck/Abnormal Lab/Rx Stated complaint: high blood sugar Time Seen by Provider: 06/09/19 16:53 Source: EMS Mode of arrival: EMS Limitations: physical limitation - History of Present Illness Initial comments: Patient is 58-year-old female with type 2 diabetes presenting to emergency Department with chief complaint of abdominal pain nausea vomiting. Her daughter states the patient was discharged yesterday for DKA however blood sugar went back up last night. She reports the patient woke up this morning and was getting her medication as advised but it was not able to stay control. Daughter states the patient developed nausea and multiple episodes of vomiting. Patient also reports abdominal pain but denies any diarrhea. They deny any night sweats or chills. They state that at home the glucose monitor could not give an actual number. - Related Data Home Medications Medication Instructions Recorded Confirmed Albuterol Inhaler [Ventolin Hfa 2 puff INHALATION RT-Q4H PRN 07/19/15 06/09/19 Inhaler] Famotidine [Pepcid] 20 mg PO DAILY 07/19/15 06/09/19 Valproic Acid [Depakene] 250 mg PO DAILY 07/19/15 06/09/19 Ergocalciferol [Vitamin D2 50,000 unit PO SA 03/05/16 06/09/19 (DRISDOL)] HYDROcodone/APAP 10-325MG [[place] 1 tab PO Q6H PRN 10/03/16 06/09/19 10-325] DULoxetine HCL [Cymbalta] 60 mg PO DAILY 02/16/17 06/09/19 ALPRAZolam [Xanax] 1 mg PO Q8H 02/19/17 06/09/19 Ondansetron [Zofran] 4 mg PO DAILY PRN 09/06/17 06/09/19 Atorvastatin [Lipitor] 20 mg PO DAILY 12/28/18 06/09/19 QUEtiapine FUMARATE [SEROquel] 25 mg PO BID 12/28/18 06/09/19 QUEtiapine [SEROquel] 100 mg PO HS 12/28/18 06/09/19 Vitamin B Complex With Vit C 1 tab PO DAILY 06/01/19 06/09/19 Aspirin [Adult Low Dose Aspirin EC] 81 mg PO DAILY 06/09/19 06/09/19 Ferrous Sulfate [Iron (65 MG 325 mg PO DAILY 06/09/19 06/09/19 Elemental)] INSULIN LISPRO (humaLOG) [humaLOG] 6 units SQ AC-TID 06/09/19 06/09/19 Insulin Glargine [Lantus] 25 unit SQ HS 06/09/19 06/09/19 Previous Rx's Medication Instructions Recorded Doxycycline [Vibramycin] 100 mg PO BID 7 Days #14 capsule 06/08/19 Allergies Allergy/AdvReac Type Severity Reaction Status Date / Time Barbiturates Allergy Rash/Hives Verified 06/09/19 16:27 cephalexin monohydrate Allergy Rash/Hives Verified 06/09/19 16:27 [From Keflex] morphine Allergy Rash/Hives Verified 06/09/19 16:27 Penicillins Allergy Rash/Hives Verified 06/09/19 16:27 phenobarbital Allergy Swelling Verified 06/09/19 16:27 venom-honey bee Allergy Swelling Verified 06/09/19 16:27 [bee venom (honey bee)] amlodipine besylate AdvReac Vomiting Verified 06/09/19 16:27 [From Norvasc] Review of Systems ROS Statement: Those systems with pertinent positive or pertinent negative responses have been documented in the HPI. ROS Other: All systems not noted in ROS Statement are negative. Past Medical History Past Medical History: Asthma, Coronary Artery Disease (CAD), Chest Pain / Angina, Heart Failure, COPD, CVA/TIA, Diabetes Mellitus, Deep Vein Thrombosis (DVT), Eye Disorder, GERD/Reflux, Hyperlipidemia, Hypertension, Myocardial Infarction ([place]), Neurologic Disorder, Osteoarthritis (OA), Pneumonia, Renal Disease Additional Past Medical History / Comment(s): IDDM (brittle), DKAs, neuropathy bilateral hands/feet, retinopathy bilateral eyes, cellulitis R foot, R great toe and 2nd toe infections/amputations, current wound R foot-being seen in [facility], renal failure, anemia, CVAs with L sided paralysis, headaches started after CVAs, brain lesions, DVT R axillae, low back pain, varicosities, seizure many years ago (2001), hypothyroid, constipation, bilateral tinnitis occasionally, sinus problems. Last Myocardial Infarction Date:: 2011 History of Any Multi-Drug Resistant Organisms: MRSA Date of last positivie culture/infection: 09/06/17 MDRO Source:: Right Foot Past Surgical History: Appendectomy, Section, Cholecystectomy, Heart Catheterization With Stent, Hysterectomy, Orthopedic Surgery Additional Past Surgical History / Comment(s): PCI with multiple stents, R great toe and 2nd toe amps, debridements R foot ulcer, L shoulder surgery to remove bone, bronchoscopy, EGD, colonoscopy, R arm port since removed, bilateral ca taract removals/lens implants. Past Anesthesia/Blood Transfusion Reactions: No Reported Reaction Additional Past Anesthesia/Blood Transfusion Reaction / Comment(s): HX OF BLOOD TRANSFUSION- NO REACTION Date of Last Stent Placement:: July 2012 Past Psychological History: Anxiety, Bipolar, Depression Smoking Status: Former smoker Past Alcohol Use History: None Reported Past Drug Use History: Marijuana - Past Family History Father Family Medical History: Unable to Obtain, Coronary Artery Disease (CAD), Diabetes Mellitus Mother Family Medical History: COPD General Exam Limitations: physical limitation General appearance: alert, in no apparent distress Head exam: Present: atraumatic, normocephalic, normal inspection Eye exam: Present: normal appearance, PERRL, EOMI Pupils: Present: normal accommodation ENT exam: Present: normal exam, mucous membranes dry Neck exam: Present: normal inspection, full ROM Respiratory exam: Present: normal lung sounds bilaterally Cardiovascular Exam: Present: regular rate, normal rhythm, normal heart sounds GI/Abdominal exam: Present: soft, tenderness (Diffuse abdominal tenderness). Absent: distended Extremities exam: Present: normal inspection, full ROM Back exam: Present: normal inspection, full ROM Neurological exam: Present: alert, oriented X3 Psychiatric exam: Present: normal affect, normal mood Skin exam: Present: warm, dry, intact, normal color Course Vital Signs 06/09/19 06/09/19 06/09/19 16:27 16:40 17:00 Temperature 98.7 F Pulse Rate 104 H 103 H 103 H Respiratory 20 15 24 Rate Blood Pressure 131/53 108/52 108/52 O2 Sat by Pulse 95 100 100 Oximetry 06/09/19 06/09/19 06/09/19 17:30 18:00 18:40 Temperature Pulse Rate 106 H 106 H 109 H Respiratory 23 22 20 Rate Blood Pressure 129/71 138/77 137/65 O2 Sat by Pulse 100 100 94 L Oximetry Medical Decision Making - Medical Decision Making patient is a 58-year-old female with history of type 2 diabetes presenting to the emergency department with a chief complaint of nausea vomiting abdominal pain. On initial evaluation patient is still nausea and has abdominal pain. She appears to be very dry. Blood glucose levels were 650. Patient given 1.7 L of bolus fluids. Patient was also given 6 mg of regular insulin bolus. Patient started on 5.7 units of regular insulin per hour drip. Patient started on DKA protocol. Acetone negative. Patient will be admitted for hyperglycemia. Case discussed with Dr. Berry. - Lab Data Result diagrams: 06/09/19 16:53 06/09/19 16:53 Lab Results 06/09/19 06/09/19 06/09/19 Range/Units 16:51 16:53 16:53 WBC (3.8-10.6) k/uL RBC (3.80-5.40) m/uL Hgb (11.4-16.0) gm/dL Hct (34.0-46.0) % MCV (80.0-100.0) fL MCH (25.0-35.0) pg MCHC (31.0-37.0) g/dL RDW (11.5-15.5) % Plt Count (150-450) k/uL Neutrophils % % Lymphocytes % % Monocytes % % Eosinophils % % Basophils % % Neutrophils # (1.3-7.7) k/uL Lymphocytes # (1.0-4.8) k/uL Monocytes # (0-1.0) k/uL Eosinophils # (0-0.7) k/uL Basophils # (0-0.2) k/uL Hypochromasia PT (9.0-12.0) sec INR (<1.2) APTT (22.0-30.0) sec VBG pH (7.31-7.41) VBG pCO2 (37-51) mmHg VBG HCO3 (24-28) mmol/L Sodium 137 (137-145) mmol/L Potassium 5.0 (3.5-5.1) mmol/L Chloride 102 (98-107) mmol/L Carbon Dioxide 26 (22-30) mmol/L Anion Gap 9 mmol/L BUN 18 H (7-17) mg/dL Creatinine 0.90 (0.52-1.04) mg/dL Est GFR (CKD-EPI)AfAm 82 (>60 ml/min/1.73 sqM) Est GFR (CKD-EPI)NonAf 71 (>60 ml/min/1.73 sqM) Glucose 649 H* (74-99) mg/dL POC Glucose (mg/dL) >600 H (75-99) mg/dL POC Glu [employer] S[employer]er ID August Plasma Lactic Acid Conrado 1.9 (0.7-2.0) mmol/L Calcium 9.2 (8.4-10.2) mg/dL Phosphorus (2.5-4.5) mg/dL Total Bilirubin 0.7 (0.2-1.3) mg/dL AST 66 H (14-36) U/L ALT 39 H (4-34) U/L Alkaline Phosphatase 104 (38-126) U/L Total Protein 6.2 L (6.3-8.2) g/dL Albumin 3.3 L (3.5-5.0) g/dL Amylase <30 L (30-110) U/L Lipase 15 L (23-300) U/L Acetone, Qual (Negative) 06/09/19 06/09/19 06/09/19 Range/Units 16:53 16:53 16:53 WBC 8.7 (3.8-10.6) k/uL RBC 3.52 L (3.80-5.40) m/uL Hgb 10.5 L (11.4-16.0) gm/dL Hct 33.9 L (34.0-46.0) % MCV 96.2 (80.0-100.0) fL MCH 29.8 (25.0-35.0) pg MCHC 31.0 (31.0-37.0) g/dL RDW 14.8 (11.5-15.5) % Plt Count 202 (150-450) k/uL Neutrophils % 80 % Lymphocytes % 14 % Monocytes % 4 % Eosinophils % 1 % Basophils % 0 % Neutrophils # 7.0 (1.3-7.7) k/uL Lymphocytes # 1.2 (1.0-4.8) k/uL Monocytes # 0.3 (0-1.0) k/uL Eosinophils # 0.1 (0-0.7) k/uL Basophils # 0.0 (0-0.2) k/uL Hypochromasia Moderate PT 9.6 (9.0-12.0) sec INR 0.9 (<1.2) APTT 16.4 L (22.0-30.0) sec VBG pH (7.31-7.41) VBG pCO2 (37-51) mmHg VBG HCO3 (24-28) mmol/L Sodium (137-145) mmol/L Potassium (3.5-5.1) mmol/L Chloride (98-107) mmol/L Carbon Dioxide (22-30) mmol/L Anion Gap mmol/L BUN (7-17) mg/dL Creatinine (0.52-1.04) mg/dL Est GFR (CKD-EPI)AfAm (>60 ml/min/1.73 sqM) Est GFR (CKD-EPI)NonAf (>60 ml/min/1.73 sqM) Glucose (74-99) mg/dL POC Glucose (mg/dL) (75-99) mg/dL POC Glu [employer] S[employer]er ID Plasma Lactic Acid Conrado (0.7-2.0) mmol/L Calcium (8.4-10.2) mg/dL Phosphorus 3.9 (2.5-4.5) mg/dL Total Bilirubin (0.2-1.3) mg/dL AST (14-36) U/L ALT (4-34) U/L Alkaline Phosphatase (38-126) U/L Total Protein (6.3-8.2) g/dL Albumin (3.5-5.0) g/dL Amylase (30-110) U/L Lipase (23-300) U/L Acetone, Qual (Negative) 06/09/19 06/09/19 06/09/19 Range/Units 16:53 18:35 19:02 WBC (3.8-10.6) k/uL RBC (3.80-5.40) m/uL Hgb (11.4-16.0) gm/dL Hct (34.0-46.0) % MCV (80.0-100.0) fL MCH (25.0-35.0) pg MCHC (31.0-37.0) g/dL RDW (11.5-15.5) % Plt Count (150-450) k/uL Neutrophils % % Lymphocytes % % Monocytes % % Eosinophils % % Basophils % % Neutrophils # (1.3-7.7) k/uL Lymphocytes # (1.0-4.8) k/uL Monocytes # (0-1.0) k/uL Eosinophils # (0-0.7) k/uL Basophils # (0-0.2) k/uL Hypochromasia PT (9.0-12.0) sec INR (<1.2) APTT (22.0-30.0) sec VBG pH 7.61 H* (7.31-7.41) VBG pCO2 21 L (37-51) mmHg VBG HCO3 21 L (24-28) mmol/L Sodium (137-145) mmol/L Potassium (3.5-5.1) mmol/L Chloride (98-107) mmol/L Carbon Dioxide (22-30) mmol/L Anion Gap mmol/L BUN (7-17) mg/dL Creatinine (0.52-1.04) mg/dL Est GFR (CKD-EPI)AfAm (>60 ml/min/1.73 sqM) Est GFR (CKD-EPI)NonAf (>60 ml/min/1.73 sqM) Glucose (74-99) mg/dL POC Glucose (mg/dL) 565 H (75-99) mg/dL POC Glu As[employer] Siding Installer ID August Plasma Lactic Acid Conrado (0.7-2.0) mmol/L Calcium (8.4-10.2) mg/dL Phosphorus (2.5-4.5) mg/dL Total Bilirubin (0.2-1.3) mg/dL AST (14-36) U/L ALT (4-34) U/L Alkaline Phosphatase (38-126) U/L Total Protein (6.3-8.2) g/dL Albumin (3.5-5.0) g/dL Amylase (30-110) U/L Lipase (23-300) U/L Acetone, Qual Negative (Negative) 06/09/19 Range/Units 20:10 WBC (3.8-10.6) k/uL RBC (3.80-5.40) m/uL Hgb (11.4-16.0) gm/dL Hct (34.0-46.0) % MCV (80.0-100.0) fL MCH (25.0-35.0) pg MCHC (31.0-37.0) g/dL RDW (11.5-15.5) % Plt Count (150-450) k/uL Neutrophils % % Lymphocytes % % Monocytes % % Eosinophils % % Basophils % % Neutrophils # (1.3-7.7) k/uL Lymphocytes # (1.0-4.8) k/uL Monocytes # (0-1.0) k/uL Eosinophils # (0-0.7) k/uL Basophils # (0-0.2) k/uL Hypochromasia PT (9.0-12.0) sec INR (<1.2) APTT (22.0-30.0) sec VBG pH (7.31-7.41) VBG pCO2 (37-51) mmHg VBG HCO3 (24-28) mmol/L Sodium (137-145) mmol/L Potassium (3.5-5.1) mmol/L Chloride (98-107) mmol/L Carbon Dioxide (22-30) mmol/L Anion Gap mmol/L BUN (7-17) mg/dL Creatinine (0.52-1.04) mg/dL Est GFR (CKD-EPI)AfAm (>60 ml/min/1.73 sqM) Est GFR (CKD-EPI)NonAf (>60 ml/min/1.73 sqM) Glucose (74-99) mg/dL POC Glucose (mg/dL) 448 H (75-99) mg/dL POC Glu As[employer] Siding Installer ID Emery Sanchez Plasma Lactic Acid Conrado (0.7-2.0) mmol/L Calcium (8.4-10.2) mg/dL Phosphorus (2.5-4.5) mg/dL Total Bilirubin (0.2-1.3) mg/dL AST (14-36) U/L ALT (4-34) U/L Alkaline Phosphatase (38-126) U/L Total Protein (6.3-8.2) g/dL Albumin (3.5-5.0) g/dL Amylase (30-110) U/L Lipase (23-300) U/L Acetone, Qual (Negative) Disposition Clinical Impression: Hyperglycemia Disposition: [facility] Condition: Fair Instructions (If sedation given, give patient instructions): Diabetic Ketoacidosis (DC) Additional Instructions: Patient will be admitted Is patient prescribed a controlled substance at d/c from ED?: No Referrals: Sherlyn Chen MD [Primary Care Provider] - 1-2 days Time of Disposition: 20:26
[2019-06-09 21:25] LABS: Glucose,Whole Blood 305 mg/dL (75-99)
[2019-06-09 22:07] LABS: Glucose,Whole Blood 284 mg/dL (75-99)
[2019-06-09 22:34] LABS: Glucose,Whole Blood 225 mg/dL (75-99)
[2019-06-09] MEDS: D5-0.45% NACL WITH KCL 20MEQ/L 1,000 ML IV SCH (23:20)
[2019-06-09] MEDS: ALPRAZolam 1 MG TAB PO SCH (23:25)
[2019-06-09] MEDS: QUEtiapine 100 MG TAB PO SCH (23:25)
[2019-06-09] MEDS: DOXYCYCLINE 100 MG CAP PO SCH (23:25)
[2019-06-10 00:44] LABS: Glucose,Whole Blood 98 mg/dL (75-99)
[2019-06-10 01:16] LABS: African American GFR (CKD) >90 (>60 ml/min/1.73 sqM); Anion Gap 5 mmol/L; Blood Urea Nitrogen 19 mg/dL (7-17); Carbon Dioxide 22 mmol/L (22-30); Chloride 115 mmol/L (98-107); Glucose 128 mg/dL (74-99); Non-African American GFR(CKD) 84 (>60 ml/min/1.73 sqM); Phosphorus 2.4 mg/dL (2.5-4.5); Potassium 3.9 mmol/L (3.5-5.1); Sodium 142 mmol/L (137-145)
[2019-06-10 01:45] LABS: Glucose,Whole Blood 93 mg/dL (75-99)
[2019-06-10 02:37] LABS: Glucose,Whole Blood 130 mg/dL (75-99)
[2019-06-10 03:36] LABS: Glucose,Whole Blood 152 mg/dL (75-99)
[2019-06-10] MEDS: SODIUM CHLORIDE 0.9% 1,000 ML IV SCH ×4 (05:20→21:08)
[2019-06-10] MEDS: D5-0.45% NACL WITH KCL 20MEQ/L 1,000 ML IV SCH ×2 (05:20→12:40)
[2019-06-10] MEDS: ALPRAZolam 1 MG TAB PO SCH ×3 (05:21→21:08)
[2019-06-10 05:30] LABS: Glucose,Whole Blood 124 mg/dL (75-99)
[2019-06-10 07:17] LABS: Glucose,Whole Blood 197 mg/dL (75-99)
[2019-06-10] MEDS: DOXYCYCLINE 100 MG CAP PO SCH ×2 (07:34→21:08)
[2019-06-10 09:37] LABS: Glucose,Whole Blood 146 mg/dL (75-99)
[2019-06-10 11:55] LABS: Glucose,Whole Blood 111 mg/dL (75-99)
[2019-06-10] MEDS ORDERED: ALBUTEROL NEBULIZED 2.5 MG/3 ML INHALATION PRN (13:45)
[2019-06-10] MEDS ORDERED: ONDANSETRON 4 MG TAB PO PRN (13:45)
--- NOTE | 2019-06-10 13:45 | P.HPIM ---
History of Present Illness H&P Date: 06/10/19 Melva Park is a 58-year-old female with known history of insulin-dependent diabetes mellitus type 1 and peripheral vascular disease who was recently discharged from [facility] to the [facility]. Patient was therefore short time, she was found to have a glucose level of 665 she was having mental status changes she was sent back to [facility] emergency room, she was started on IV insulin drip and was admitted to medical floor. Patient has multiple medical problems including history of hypertension, history of hyperlipidemia, history of asthma, history of severe peripheral vascular disease with chronic wounds on the right leg requiring toe amputation, history of stroke, history of congestive heart failure, history of coronary artery disease with previous history of angioplasty and stent placement, history of depression with anxiety disorder. Patient was seen and examined on 06/10/2018, she is alert slightly confused in no apparent distress, she has been maintained on IV insulin drip and her glucose level is below 200 this time, there is no fever or chills no headache or dizziness no chest pain no shortness of breath no cough no nausea or vomiting no abdominal pain no diarrhea no burning with urination no frequency or urgency and no hematuria. Past Medical History Past Medical History: Asthma, Coronary Artery Disease (CAD), Chest Pain / Angina, Heart Failure, COPD, CVA/TIA, Diabetes Mellitus, Deep Vein Thrombosis (DVT), Eye Disorder, GERD/Reflux, Hyperlipidemia, Hypertension, Myocardial Infarction ([place]), Neurologic Disorder, Osteoarthritis (OA), Pneumonia, Renal Disease Additional Past Medical History / Comment(s): IDDM (brittle), DKAs, neuropathy bilateral hands/feet, retinopathy bilateral eyes, cellulitis R foot, R great toe and 2nd toe infections/amputations, current wound R foot-being seen in [facility], renal failure, anemia, CVAs with L sided paralysis, headaches started after CVAs, brain lesions, DVT R axillae, low back pain, varicosities, seizure many years ago (2001), hypothyroid, constipation, bilateral tinnitis occasionally, sinus problems. Last Myocardial Infarction Date:: 2011 History of Any Multi-Drug Resistant Organisms: MRSA Date of last positivie culture/infection: 09/06/17 MDRO Source:: Right Foot Past Surgical History: Appendectomy, Section, Cholecystectomy, Heart Catheterization With Stent, Hysterectomy, Orthopedic Surgery Additional Past Surgical History / Comment(s): PCI with multiple stents, R great toe and 2nd toe amps, debridements R foot ulcer, L shoulder surgery to remove b one, bronchoscopy, EGD, colonoscopy, R arm port since removed, bilateral cataract removals/lens implants. Past Anesthesia/Blood Transfusion Reactions: No Reported Reaction Additional Past Anesthesia/Blood Transfusion Reaction / Comment(s): HX OF BLOOD TRANSFUSION- NO REACTION Date of Last Stent Placement:: July 2012 Past Psychological History: Anxiety, Bipolar, Depression Additional Psychological History / Comment(s): Pt has a legal guardian, Sera Rodriguez, who is pt's sister. Currently her legal guardian is hospitalized. Pt has a caregiver, No, who resides with her. Pt is wheelchair bound d/t CVA with L sided paralysis arm and leg. She has a shower chair and a glucometer. Her sister or caregiver drive her to [email or web address]. Smoking Status: Former smoker Past Alcohol Use History: None Reported Additional Past Alcohol Use History / Comment(s): Pt started smoking in 1982 and quit in 2017. Using marijuana edibles occasionally but none for a "long time" Past Drug Use History: Marijuana Additional Drug Use History / Comment(s): using marijuana edibles - Past Family History Father Family Medical History: Unable to Obtain, Coronary Artery Disease (CAD), Diabetes Mellitus Mother Family Medical History: COPD Medications and Allergies Home Medications Medication Instructions Recorded Confirmed Type Albuterol Inhaler [Ventolin Hfa 2 puff INHALATION RT-Q4H PRN 07/19/15 06/09/19 History Inhaler] Famotidine [Pepcid] 20 mg PO DAILY 07/19/15 06/09/19 History Valproic Acid [Depakene] 250 mg PO DAILY 07/19/15 06/09/19 History Ergocalciferol [Vitamin D2 50,000 unit PO SA 03/05/16 06/09/19 History (DRISDOL)] HYDROcodone/APAP 10-325MG [[place] 1 tab PO Q6H PRN 10/03/16 06/09/19 History 10-325] DULoxetine HCL [Cymbalta] 60 mg PO DAILY 02/16/17 06/09/19 History ALPRAZolam [Xanax] 1 mg PO Q8H 02/19/17 06/09/19 History Ondansetron [Zofran] 4 mg PO DAILY PRN 09/06/17 06/09/19 History Atorvastatin [Lipitor] 20 mg PO DAILY 12/28/18 06/09/19 History QUEtiapine FUMARATE [SEROquel] 25 mg PO BID 12/28/18 06/09/19 History QUEtiapine [SEROquel] 100 mg PO HS 12/28/18 06/09/19 History Vitamin B Complex With Vit C 1 tab PO DAILY 06/01/19 06/09/19 History Doxycycline [Vibramycin] 100 mg PO BID 7 Days #14 capsule 06/08/19 06/09/19 Rx Aspirin [Adult Low Dose Aspirin EC] 81 mg PO DAILY 06/09/19 06/09/19 History Ferrous Sulfate [Iron (65 MG 325 mg PO DAILY 06/09/19 06/09/19 History Elemental)] INSULIN LISPRO (humaLOG) [humaLOG] 6 units SQ AC-TID 06/09/19 06/09/19 History Insulin Glargine [Lantus] 25 unit SQ HS 06/09/19 06/09/19 History Allergies Allergy/AdvReac Type Severity Reaction Status Date / Time Barbiturates Allergy Rash/Hives Verified 06/09/19 20:52 cephalexin monohydrate Allergy Rash/Hives Verified 06/09/19 20:52 [From Keflex] morphine Allergy Rash/Hives Verified 06/09/19 20:52 Penicillins Allergy Rash/Hives Verified 06/09/19 20:52 phenobarbital Allergy Swelling Verified 06/09/19 20:52 venom-honey bee Allergy Swelling Verified 06/09/19 20:52 [bee venom (honey bee)] amlodipine besylate AdvReac Vomiting Verified 06/09/19 20:52 [From Norvasc] Physical Exam Vitals: Vital Signs Temp Pulse Pulse Resp BP BP Pulse Ox 06/10/19 07:32 98 F 87 12 134/63 97 06/10/19 01:51 98.1 F 101 H 13 160/59 98 06/09/19 20:30 98 17 127/72 06/09/19 20:00 99 14 132/71 06/09/19 19:30 101 H 14 140/67 06/09/19 19:00 108 H 12 137/65 06/09/19 18:40 109 H 20 137/65 94 L 06/09/19 18:30 105 H 28 H 134/68 06/09/19 18:00 106 H 22 138/77 100 06/09/19 17:30 106 H 23 129/71 100 06/09/19 17:00 103 H 24 108/52 100 06/09/19 16:40 103 H 15 108/52 100 06/09/19 16:27 98.7 F 104 H 20 131/53 95 Intake and Output 06/09/19 06/10/19 06/10/19 22:59 06:59 14:59 Intake Total 214.102 549.475 808.367 Balance 214.102 549.475 808.367 Intake: Intake, IV Titration 34.102 9.475 808.367 Amount D5-0.45% NaCl with KCl 800 20Meq/l 1,000 ml @ 150 mls/hr IV .[id number] HUMAIRA Rx# :[id number] Insulin Regular 100 unit 34.102 9.475 8.367 In Sodium Chloride 0.9% 100 ml @ 0.1 UNITS/KG/HR 5.772 mls/hr IV .[id number] HUMAIRA Rx#:[id number] Oral 180 540 Other: Voiding Method Diaper Diaper # Voids 2 # Bowel Movements 1 Weight 57.153 kg In general patient is alert slightly confused in no apparent distress HEENT head normocephalic and atraumatic Neck is supple no JVD no goiter no lymphadenopathy Chest exam reveals a few scattered rhonchi no wheezing Cardiac exam reveals regular heart sounds no gallops no murmurs Abdomen is soft nontender no organomegaly with normal bowel sounds Extremity exam reveals no edema no cyanosis or clubbing, right foot with previous second toe amputation and open wounds. Neurological examination reveals weakness related to previous stroke without any acute neurological changes Results CBC & Chem 7: 06/09/19 16:53 06/10/19 00:17 Labs: Abnormal Lab Results - Last 24 Hours (Table) 06/09/19 06/09/19 06/09/19 Range/Units 16:51 16:53 16:53 RBC 3.52 L (3.80-5.40) m/uL Hgb 10.5 L (11.4-16.0) gm/dL Hct 33.9 L (34.0-46.0) % APTT (22.0-30.0) sec VBG pH (7.31-7.41) VBG pCO2 (37-51) mmHg VBG HCO3 (24-28) mmol/L Chloride (98-107) mmol/L BUN 18 H (7-17) mg/dL Glucose 649 H* (74-99) mg/dL POC Glucose (mg/dL) >600 H (75-99) mg/dL Phosphorus (2.5-4.5) mg/dL AST 66 H (14-36) U/L ALT 39 H (4-34) U/L Total Protein 6.2 L (6.3-8.2) g/dL Albumin 3.3 L (3.5-5.0) g/dL Amylase <30 L (30-110) U/L Lipase 15 L (23-300) U/L 06/09/19 06/09/19 06/09/19 Range/Units 16:53 18:35 19:02 RBC (3.80-5.40) m/uL Hgb (11.4-16.0) gm/dL Hct (34.0-46.0) % APTT 16.4 L (22.0-30.0) sec VBG pH 7.61 H* (7.31-7.41) VBG pCO2 21 L (37-51) mmHg VBG HCO3 21 L (24-28) mmol/L Chloride (98-107) mmol/L BUN (7-17) mg/dL Glucose (74-99) mg/dL POC Glucose (mg/dL) 565 H (75-99) mg/dL Phosphorus (2.5-4.5) mg/dL AST (14-36) U/L ALT (4-34) U/L Total Protein (6.3-8.2) g/dL Albumin (3.5-5.0) g/dL Amylase (30-110) U/L Lipase (23-300) U/L 06/09/19 06/09/19 06/09/19 Range/Units 20:10 21:23 21:56 RBC (3.80-5.40) m/uL Hgb (11.4-16.0) gm/dL Hct (34.0-46.0) % APTT (22.0-30.0) sec VBG pH (7.31-7.41) VBG pCO2 (37-51) mmHg VBG HCO3 (24-28) mmol/L Chloride (98-107) mmol/L BUN (7-17) mg/dL Glucose (74-99) mg/dL POC Glucose (mg/dL) 448 H 305 H 284 H (75-99) mg/dL Phosphorus (2.5-4.5) mg/dL AST (14-36) U/L ALT (4-34) U/L Total Protein (6.3-8.2) g/dL Albumin (3.5-5.0) g/dL Amylase (30-110) U/L Lipase (23-300) U/L 06/09/19 06/10/19 06/10/19 Range/Units 22:32 00:17 02:26 RBC (3.80-5.40) m/uL Hgb (11.4-16.0) gm/dL Hct (34.0-46.0) % APTT (22.0-30.0) sec VBG pH (7.31-7.41) VBG pCO2 (37-51) mmHg VBG HCO3 (24-28) mmol/L Chloride 115 H (98-107) mmol/L BUN 19 H (7-17) mg/dL Glucose 128 H (74-99) mg/dL POC Glucose (mg/dL) 225 H 130 H (75-99) mg/dL Phosphorus 2.4 L (2.5-4.5) mg/dL AST (14-36) U/L ALT (4-34) U/L Total Protein (6.3-8.2) g/dL Albumin (3.5-5.0) g/dL Amylase (30-110) U/L Lipase (23-300) U/L 06/10/19 06/10/19 06/10/19 Range/Units 03:33 05:28 07:16 RBC (3.80-5.40) m/uL Hgb (11.4-16.0) gm/dL Hct (34.0-46.0) % APTT (22.0-30.0) sec VBG pH (7.31-7.41) VBG pCO2 (37-51) mmHg VBG HCO3 (24-28) mmol/L Chloride (98-107) mmol/L BUN (7-17) mg/dL Glucose (74-99) mg/dL POC Glucose (mg/dL) 152 H 124 H 197 H (75-99) mg/dL Phosphorus (2.5-4.5) mg/dL AST (14-36) U/L ALT (4-34) U/L Total Protein (6.3-8.2) g/dL Albumin (3.5-5.0) g/dL Amylase (30-110) U/L Lipase (23-300) U/L 06/10/19 06/10/19 Range/Units 09:36 11:44 RBC (3.80-5.40) m/uL Hgb (11.4-16.0) gm/dL Hct (34.0-46.0) % APTT (22.0-30.0) sec VBG pH (7.31-7.41) VBG pCO2 (37-51) mmHg VBG HCO3 (24-28) mmol/L Chloride (98-107) mmol/L BUN (7-17) mg/dL Glucose (74-99) mg/dL POC Glucose (mg/dL) 146 H 111 H (75-99) mg/dL Phosphorus (2.5-4.5) mg/dL AST (14-36) U/L ALT (4-34) U/L Total Protein (6.3-8.2) g/dL Albumin (3.5-5.0) g/dL Amylase (30-110) U/L Lipase (23-300) U/L Assessment and Plan Plan: #1 severe hyperglycemia likely related to noncompliance with diet, patient consumes large amount of candies in a binge manner occasionally. She was counseled in length in that regard, she was started on IV insulin drip in the emergency room and at this time her glucose is below 200 will discontinue insulin drip and resume Levemir 22 units at bedtime and NovoLog sliding scale before meals. #2 right foot wound infection with osteomyelitis, continue doxycycline by mouth. Patient will need further surgical intervention on her foot. #3 underlying history of hypertension #4 underlying history of hyperlipidemia #5 underlying history of congestive heart failure #6 underlying history of coronary artery disease with previous history of angioplasty and stent placement #7 underlying history of depression with anxiety disorder Plan at this time is to switched to Levemir and NovoLog sliding scale Continue to child guidance counselor regarding diet Continue with oral antibiotic doxycycline Patient was scheduled to be readmitted next week for further surgical intervention on her right foot Will reassess if patient needs to be transferred back to the [facility] or if she will stay until her surgery.
[2019-06-10 14:00] VITALS: BMI 20.3
[2019-06-10] MEDS: INSULIN REGULAR 100 UNIT in SODIUM CHLORIDE 0.9% 100 ML IV SCH (14:23)
[2019-06-10] MEDS: DULoxetine HCL 60 MG CAPSULE.DR PO SCH (15:21)
[2019-06-10] MEDS: FERROUS SULFATE 325 MG TAB PO SCH (15:21)
[2019-06-10] MEDS: ERGOCALCIFEROL 50,000 UNIT CAP PO SCH (15:21)
[2019-06-10 16:54] LABS: Glucose,Whole Blood 327 mg/dL (75-99)
[2019-06-10] MEDS ORDERED: ONDANSETRON 4 MG/2 ML VIAL IVP PRN (17:44)
[2019-06-10] MEDS: INSULIN ASPART (NovoLOG) 100 UNIT/ML VIAL SQ SCH ×3 (17:53→21:07)
[2019-06-10 20:34] LABS: Glucose,Whole Blood 303 mg/dL (75-99)
[2019-06-10] MEDS ORDERED: INSULIN GLARGINE 25 UNIT SQ SCH (21:00)
[2019-06-10] MEDS ORDERED: INSULIN DETEMIR (LEVEMIR) 100 UNIT/ML SYR SQ SCH (21:00)
[2019-06-10] MEDS: QUEtiapine 100 MG TAB PO SCH (21:08)
[2019-06-10] MEDS: QUEtiapine 25 MG TAB PO SCH (21:08)
[2019-06-11] MEDS: SODIUM CHLORIDE 0.9% 1,000 ML IV SCH ×5 (03:48→21:37)
[2019-06-11] MEDS: ALPRAZolam 1 MG TAB PO SCH ×3 (05:24→21:37)
[2019-06-11 07:03] LABS: Glucose,Whole Blood 24 mg/dL (75-99)
[2019-06-11 07:08] LABS: Glucose,Whole Blood 26 mg/dL (75-99)
[2019-06-11] MEDS ORDERED: DEXTROSE 10 % IN WATER 250 ML IV STA (07:08)
[2019-06-11 07:14] LABS: ALT 25 U/L (4-34); AST 27 U/L (14-36); African American GFR (CKD) >90 (>60 ml/min/1.73 sqM); Albumin 2.6 g/dL (3.5-5.0); Alkaline Phosphatase 69 U/L (38-126); Anion Gap 5 mmol/L; Blood Urea Nitrogen 14 mg/dL (7-17); Calcium 8.5 mg/dL (8.4-10.2); Carbon Dioxide 24 mmol/L (22-30); Chloride 112 mmol/L (98-107); Non-African American GFR(CKD) >90 (>60 ml/min/1.73 sqM); Potassium 3.3 mmol/L (3.5-5.1); Sodium 141 mmol/L (137-145); Total Bilirubin 0.4 mg/dL (0.2-1.3); Total Protein 5.5 g/dL (6.3-8.2)
[2019-06-11 07:17] LABS: Glucose 25 mg/dL (74-99)
[2019-06-11 07:30] LABS: Glucose,Whole Blood 103 mg/dL (75-99)
[2019-06-11 07:39] LABS: Basophils % (A) 0 %; Eosinophils % (A) 1 %; HCT 28.3 % (34.0-46.0); Hypochromasia Slight; Lymphocytes # (A) 2.2 k/uL (1.0-4.8); Lymphocytes % (A) 37 %; MCH 29.9 pg (25.0-35.0); MCHC 31.6 g/dL (31.0-37.0); MCV 94.6 fL (80.0-100.0); Mean Platelet Volume 8.8; Monocytes # (A) 0.3 k/uL (0-1.0); Monocytes % (A) 6 %; Neutrophils # (A) 3.2 k/uL (1.3-7.7); Neutrophils % (A) 54 %; Platelet Count 229 k/uL (150-450); RDW 14.9 % (11.5-15.5); WBC 5.8 k/uL (3.8-10.6)
[2019-06-11] MEDS: ATORVASTATIN 20 MG TAB PO SCH (08:21)
[2019-06-11] MEDS: FERROUS SULFATE 325 MG TAB PO SCH (08:21)
[2019-06-11] MEDS: INSULIN ASPART (NovoLOG) 100 UNIT/ML VIAL SQ SCH ×7 (08:21→21:04)
[2019-06-11] MEDS: QUEtiapine 25 MG TAB PO SCH ×2 (08:22→21:37)
[2019-06-11] MEDS: VALPROIC ACID ORAL SOLN 250 MG/5 ML CUP PO SCH (08:22)
[2019-06-11] MEDS: FAMOTIDINE 20 MG TAB PO SCH (08:22)
[2019-06-11] MEDS: DULoxetine HCL 60 MG CAPSULE.DR PO SCH (08:22)
[2019-06-11] MEDS: ASPIRIN 81 MG PO SCH (08:22)
[2019-06-11] MEDS: DOXYCYCLINE 100 MG CAP PO SCH ×2 (08:22→21:37)
[2019-06-11] MEDS ORDERED: VITAMIN B COMPLEX PO SCH (09:00)
[2019-06-11] MEDS ORDERED: ASCORBIC ACID PO SCH (09:00)
[2019-06-11] MEDS: POTASSIUM CHLORIDE ER 20 MEQ TAB.ER PO SCH ×2 (10:18→12:03)
[2019-06-11 12:18] LABS: Glucose,Whole Blood 127 mg/dL (75-99)
--- NOTE | 2019-06-11 16:27 | P.PN ---
Subjective Progress Note Date: 06/11/19 Melva Park is a 58-year-old female with known history of insulin-dependent diabetes mellitus type 1 and peripheral vascular disease who was recently discharged from [facility]. Patient was therefore short time, she was found to have a glucose level of 665 she was having mental status changes she was sent back to [facility] emergency room, she was started on IV insulin drip and was admitted to medical floor. Patient has multiple medical problems including history of hypertension, history of hyperlipidemia, history of asthma, history of severe peripheral vascular disease with chronic wounds on the right leg requiring toe amputation, history of stroke, history of congestive heart failure, history of coronary artery disease with previous history of angioplasty and stent placement, history of depression with anxiety disorder. Patient was seen and examined on 06/10/2019, she is alert slightly confused in no apparent distress, she has been maintained on IV insulin drip and her glucose level is below 200 this time, there is no fever or chills no headache or dizziness no chest pain no shortness of breath no cough no nausea or vomiting no abdominal pain no diarrhea no burning with urination no frequency or urgency and no hematuria. On 06/11/2019 patient was seen and examined on the medical floor, she is alert slightly confused in no distress, glucose level is well-controlled at this time, she had an episode of hypoglycemia this morning, at this time will decrease Levemir dose to 20 units down from 22 units and monitor glucose level closely. On review of systems patient is complaining of pain in her lower extremity, otherwise she denies any complaints there is no fever or chills no headache or dizziness no chest pain no shortness of breath no cough no nausea or vomiting no abdominal pain no diarrhea and no urinary symptoms. Objective - Vital Signs Vital signs: Vital Signs Temp 98.2 F 06/11/19 02:32 Pulse 84 06/11/19 12:14 Resp 15 06/11/19 07:00 BP 113/65 06/11/19 07:00 Pulse Ox 96 06/11/19 07:00 Intake & Output 06/10/19 06/11/19 06/11/19 18:59 06:59 18:59 Intake Total 808.367 600 400 Output Total 1 Balance 808.367 599 400 Weight 57.153 kg Intake: IV 400 Sodium Chloride 0.9% 1, 400 000 ml @ 200 mls/hr IV . Q5H [facility] Rx#:[id number] Intake, IV Titration 808.367 600 Amount D5-0.45% NaCl with KCl 800 20Meq/l 1,000 ml @ 150 mls/hr IV .[id number] [facility] Rx# :[id number] Insulin Regular 100 unit 8.367 In Sodium Chloride 0.9% 100 ml @ 0.1 UNITS/KG/HR 5.772 mls/hr IV .[id number] [facility] Rx#:[id number] Sodium Chloride 0.9% 1, 600 000 ml @ 200 mls/hr IV . Q5H [facility] Rx#:[id number] Output: Urine 1 Other: Voiding Method Diaper Diaper Incontinent # Voids 2 2 # Bowel Movements 1 1 2 - Exam In general patient is alert slightly confused in no apparent distress HEENT head normocephalic and atraumatic Neck is supple no JVD no goiter no lymphadenopathy Chest exam reveals a few scattered rhonchi no wheezing Cardiac exam reveals regular heart sounds no gallops no murmurs Abdomen is soft nontender no organomegaly with normal bowel sounds Extremity exam reveals no edema no cyanosis or clubbing, right foot with previous second toe amputation and open wounds. Neurological examination reveals weakness related to previous stroke without any acute neurological changes - Labs CBC & Chem 7: 06/11/19 06:28 06/11/19 14:51 Labs: Abnormal Lab Results - Last 24 Hours (Table) 06/10/19 06/10/19 06/11/19 Range/Units 16:52 20:23 06:28 RBC 3.00 L (3.80-5.40) m/uL Hgb 9.0 L D (11.4-16.0) gm/dL Hct 28.3 L (34.0-46.0) % Potassium (3.5-5.1) mmol/L Chloride (98-107) mmol/L Glucose (74-99) mg/dL POC Glucose (mg/dL) 327 H 303 H (75-99) mg/dL Total Protein (6.3-8.2) g/dL Albumin (3.5-5.0) g/dL 06/11/19 06/11/19 06/11/19 Range/Units 06:28 07:01 07:03 RBC (3.80-5.40) m/uL Hgb (11.4-16.0) gm/dL Hct (34.0-46.0) % Potassium 3.3 L (3.5-5.1) mmol/L Chloride 112 H (98-107) mmol/L Glucose 25 L* (74-99) mg/dL POC Glucose (mg/dL) 24 L 26 L (75-99) mg/dL Total Protein 5.5 L (6.3-8.2) g/dL Albumin 2.6 L (3.5-5.0) g/dL 06/11/19 06/11/19 Range/Units 07:26 12:12 RBC (3.80-5.40) m/uL Hgb (11.4-16.0) gm/dL Hct (34.0-46.0) % Potassium (3.5-5.1) mmol/L Chloride (98-107) mmol/L Glucose (74-99) mg/dL POC Glucose (mg/dL) 103 H 127 H (75-99) mg/dL Total Protein (6.3-8.2) g/dL Albumin (3.5-5.0) g/dL Assessment and Plan Plan: #1 severe hyperglycemia likely related to noncompliance with diet, patient consumes large amount of candies in a binge manner occasionally. She was counseled in length in that regard, she was started on IV insulin drip in the emergency room and at this time her glucose is below 200 will discontinue i nsulin drip and resume Levemir 22 units at bedtime and NovoLog sliding scale before meals. #2 right foot wound infection with osteomyelitis, continue doxycycline by mouth. Patient will need further surgical intervention on her foot. #3 underlying history of hypertension #4 underlying history of hyperlipidemia #5 underlying history of congestive heart failure #6 underlying history of coronary artery disease with previous history of angioplasty and stent placement #7 underlying history of depression with anxiety disorder #8 patient was scheduled to be readmitted tomorrow for surgical intervention on her right foot consultation for vascular surgery was initiated Plan at this time is to decrease Levemir dose to 20 units daily at bedtime continue NovoLog sliding scale Consultation for vascular surgery was initiated Continue to nurses' association counselor regarding diet Continue with oral antibiotic doxycycline Patient was scheduled to be readmitted next week for further surgical intervention on her right foot Will reassess if patient needs to be transferred back to the [facility] or if she will stay until her surgery.
[2019-06-11 17:35] LABS: Glucose,Whole Blood 189 mg/dL (75-99)
[2019-06-11 20:20] LABS: Glucose,Whole Blood 93 mg/dL (75-99)
[2019-06-11] MEDS: QUEtiapine 100 MG TAB PO SCH (21:37)
[2019-06-12 01:48] LABS: Glucose,Whole Blood 68 mg/dL (75-99)
[2019-06-12 02:02] LABS: Glucose,Whole Blood 83 mg/dL (75-99)
[2019-06-12 05:42] LABS: Glucose,Whole Blood 125 mg/dL (75-99)
[2019-06-12] MEDS: ALPRAZolam 1 MG TAB PO SCH ×3 (05:50→22:59)
[2019-06-12 07:08] LABS: Glucose,Whole Blood 156 mg/dL (75-99)
[2019-06-12 08:06] LABS: ALT 20 U/L (4-34); AST 20 U/L (14-36); African American GFR (CKD) >90 (>60 ml/min/1.73 sqM); Albumin 2.4 g/dL (3.5-5.0); Alkaline Phosphatase 66 U/L (38-126); Anion Gap 2 mmol/L; Blood Urea Nitrogen 12 mg/dL (7-17); Calcium 8.3 mg/dL (8.4-10.2); Carbon Dioxide 30 mmol/L (22-30); Chloride 110 mmol/L (98-107); Glucose 140 mg/dL (74-99); Non-African American GFR(CKD) >90 (>60 ml/min/1.73 sqM); Potassium 4.2 mmol/L (3.5-5.1); Sodium 142 mmol/L (137-145); Total Bilirubin 0.4 mg/dL (0.2-1.3); Total Protein 5.1 g/dL (6.3-8.2)
[2019-06-12 08:13] LABS: Basophils % (A) 1 %; Eosinophils % (A) 1 %; HCT 27.6 % (34.0-46.0); HGB 8.5 gm/dL (11.4-16.0); Hypochromasia Slight; Lymphocytes # (A) 1.6 k/uL (1.0-4.8); Lymphocytes % (A) 45 %; MCH 29.3 pg (25.0-35.0); MCHC 30.9 g/dL (31.0-37.0); MCV 94.7 fL (80.0-100.0); Mean Platelet Volume 8.8; Monocytes # (A) 0.2 k/uL (0-1.0); Monocytes % (A) 6 %; Neutrophils # (A) 1.6 k/uL (1.3-7.7); Neutrophils % (A) 45 %; Platelet Count 220 k/uL (150-450); RBC 2.92 m/uL (3.80-5.40); RDW 15.4 % (11.5-15.5); WBC 3.5 k/uL (3.8-10.6)
[2019-06-12] MEDS: INSULIN ASPART (NovoLOG) 100 UNIT/ML VIAL SQ SCH ×4 (08:48→14:29)
[2019-06-12] MEDS: VALPROIC ACID ORAL SOLN 250 MG/5 ML CUP PO SCH (08:48)
[2019-06-12] MEDS ORDERED: IV FLUID CONTINUATION 1,000 ML IV ONE (09:43)
[2019-06-12] MEDS ORDERED: ONDANSETRON 4 MG/2 ML VIAL IVP ONE (10:00)
[2019-06-12 10:02] LABS: Glucose,Whole Blood 176 mg/dL (75-99)
--- NOTE | 2019-06-12 10:12 | P.PN ---
Subjective Progress Note Date: 06/12/19 Melva Park is a 58-year-old female with known history of insulin-dependent diabetes mellitus type 1 and peripheral vascular disease who was recently discharged from [facility] [place] [facility]. Patient was therefore short time, she was found to have a glucose level of 665 she was having mental status changes she was sent back to [facility] emergency room, she was started on IV insulin drip and was admitted to medical floor. Patient has multiple medical problems including history of hypertension, history of hyperlipidemia, history of asthma, history of severe peripheral vascular disease with chronic wounds on the right leg requiring toe amputation, history of stroke, history of congestive heart failure, history of coronary artery disease with previous history of angioplasty and stent placement, history of depression with anxiety disorder. Patient was seen and examined on 06/10/2019, she is alert slightly confused in no apparent distress, she has been maintained on IV insulin drip and her glucose level is below 200 this time, there is no fever or chills no headache or dizziness no chest pain no shortness of breath no cough no nausea or vomiting no abdominal pain no diarrhea no burning with urination no frequency or urgency and no hematuria. On 06/11/2019 patient was seen and examined on the medical floor, she is alert slightly confused in no distress, glucose level is well-controlled at this time, she had an episode of hypoglycemia this morning, at this time will decrease Levemir dose to 20 units down from 22 units and monitor glucose level closely. On review of systems patient is complaining of pain in her lower extremity, otherwise she denies any complaints there is no fever or chills no headache or dizziness no chest pain no shortness of breath no cough no nausea or vomiting no abdominal pain no diarrhea and no urinary symptoms. On 06/12/2019 patient is alert and resting comfortably in bed. Plans for debridement today with Dr. Egan of foot wound. Long-acting insulin insulin currently on hold. Blood sugar this a.m. 176. This time patient denies chest pain or shortness of breath. Patient moving diarrhea. Denies any urinary burning or frequency Objective - Vital Signs Vital signs: Vital Signs Temp 97.5 F L 06/12/19 09:49 Pulse 75 06/12/19 09:49 Resp 16 06/12/19 09:49 BP 125/58 06/12/19 09:49 Pulse Ox 99 06/12/19 09:49 Intake & Output 06/11/19 06/12/19 06/12/19 18:59 06:59 18:59 Intake Total 400 Balance 400 Intake: IV 400 Sodium Chloride 0.9% 1, 400 000 ml @ 50 mls/hr IV . Q20H [facility] Rx#:[id number] Other: Voiding Method Incontinent Incontinent # Voids 2 # Bowel Movements 2 - Exam In general patient is alert slightly confused in no apparent distress HEENT head normocephalic and atraumatic Neck is supple no JVD no goiter no lymphadenopathy Chest exam reveals a few scattered rhonchi no wheezing Cardiac exam reveals regular heart sounds no gallops no murmurs Abdomen is soft nontender no organomegaly with normal bowel sounds Extremity exam reveals no edema no cyanosis or clubbing, right foot with previous second toe amputation and open wounds. Neurological examination reveals weakness related to previous stroke without any acute neurological changes - Labs CBC & Chem 7: 06/12/19 06:42 06/12/19 06:42 Labs: Abnormal Lab Results - Last 24 Hours (Table) 06/11/19 06/11/19 06/12/19 Range/Units 12:12 17:19 01:18 WBC (3.8-10.6) k/uL RBC (3.80-5.40) m/uL Hgb (11.4-16.0) gm/dL Hct (34.0-46.0) % MCHC (31.0-37.0) g/dL Chloride (98-107) mmol/L Glucose (74-99) mg/dL POC Glucose (mg/dL) 127 H 189 H 68 L (75-99) mg/dL Calcium (8.4-10.2) mg/dL Total Protein (6.3-8.2) g/dL Albumin (3.5-5.0) g/dL 06/12/19 06/12/19 06/12/19 Range/Units 05:29 06:42 06:42 WBC 3.5 L (3.8-10.6) k/uL RBC 2.92 L (3.80-5.40) m/uL Hgb 8.5 L (11.4-16.0) gm/dL Hct 27.6 L (34.0-46.0) % MCHC 30.9 L (31.0-37.0) g/dL Chloride 110 H (98-107) mmol/L Glucose 140 H (74-99) mg/dL POC Glucose (mg/dL) 125 H (75-99) mg/dL Calcium 8.3 L (8.4-10.2) mg/dL Total Protein 5.1 L (6.3-8.2) g/dL Albumin 2.4 L (3.5-5.0) g/dL 06/12/19 06/12/19 Range/Units 07:06 10:01 WBC (3.8-10.6) k/uL RBC (3.80-5.40) m/uL Hgb (11.4-16.0) gm/dL Hct (34.0-46.0) % MCHC (31.0-37.0) g/dL Chloride (98-107) mmol/L Glucose (74-99) mg/dL POC Glucose (mg/dL) 156 H 176 H (75-99) mg/dL Calcium (8.4-10.2) mg/dL Total Protein (6.3-8.2) g/dL Albumin (3.5-5.0) g/dL Assessment and Plan Assessment: #1 severe hyperglycemia likely related to noncompliance with diet, patient consumes large amount of candies in a binge manner occasionally. She was counseled in length in that regard, she was started on IV insulin drip in the emergency room and at this time her glucose is below 200 will discontinue insulin drip and resume Levemir 22 units at bedtime and NovoLog sliding scale before meals. Long-acting insulin has been DC'd. Patient remains on sliding scale +6 units with meals. We'll continue to monitor #2 right foot wound infection with osteomyelitis, continue doxycycline by mouth. She to undergo debridement today with Dr. Egan. #3 underlying history of hypertension #4 underlying history of hyperlipidemia #5 underlying history of congestive heart failure #6 underlying history of coronary artery disease with previous history of angioplasty and stent placement #7 underlying history of depression with anxiety disorder DVT prophylaxis heparin. GI prophylaxis Pepcid Consultation for vascular surgery was initiated Continue to budget counselor regarding diet Continue with oral antibiotic doxycycline I performed an examination of the patient and discussed their management with the Nurse Practitioner. I have reviewed the Nurse Practitioner's notes and agree with the documented findings and plan of care
[2019-06-12] MEDS ORDERED: fentaNYL (PF) 50 MCG/ML 2 ML AMP ONE (10:40)
[2019-06-12] MEDS ORDERED: PHENYLEPHRINE-0.9% NACL SYG 1 MG/10 ML SYRINGE ONE (10:40)
[2019-06-12] MEDS ORDERED: ETOMIDATE 2 MG/ML 10 ML VIAL ONE (10:40)
[2019-06-12] MEDS ORDERED: PROPOFOL 10 MG/ML 20 ML VIAL IV ONE (10:40)
[2019-06-12] MEDS ORDERED: MIDAZOLAM 2 MG/2 ML VIAL ONE (10:40)
--- NOTE | 2019-06-12 10:53 | P.PN ---
Progress Note - Text Progress Note Date: 06/12/19 This patient is very familiar to me. Please refer to recent progress notes and recent H&P's. This is a 58-year-old debilitated female who was previously scheduled for an outpatient debridement of the right foot with possible transmetatarsal amputation. Due to a lot of jerking motions in her foot, her diabetes, her noncompliance with wound care and blood sugar management she has developed ulcers on the medial and lateral aspect of the right foot. Her vascular studies suggest occlusive disease but with perfusion that appears adequate for healing. She is nonambulatory and is considered a poor candidate for vascular intervention. We have discussed options with the patient and her family in detail. We have recommended that we proceed with an aggressive debridement. If at the time of the debridement the remaining foot does not appear adequate for eventual closure we would proceed directly with transmetatarsal amputation. We will do our best to protect the area with a total contact cast. If the area does not heal she will require below knee amputation. The patient and family have verbalized an understanding of the options and their agreement with our plan.
[2019-06-12 12:09] LABS: Glucose,Whole Blood 145 mg/dL (75-99)
--- NOTE | 2019-06-12 12:15 | P.OPNOTE ---
Outpatient Note - . Assessment/Comments:: Date of service: 06/12/2019 Surgeon: Tammi Pre-and postop diagnosis: Diabetic infection right foot Type of debridement: Excisional surgical including bone tendon and soft tissue Chief complaint: ulcer of lateral and medial right foot Anesthesia: Gen. Signs of infection: Mild redness and some erosion of the distal fifth metatarsal head Other material in the wound that is expected to inhibit healing or promote adjacent tissue breakdown: Same Degree of epithelialization: % Method and instrument: Surgical debridement with scalpel, rongeur, Character of the wound after debridement: Clean bloody soft tissue bed Description of necrotic material present: Nonviable soft tissue, subcutaneous tissue, distal aspect of fifth metatarsal on the right Description of tissue removed: Same Pre-debridement measurement: The medial aspect was 3.5 x 3 lateral 5 x 3.8 cm and medial 0.2 lateral 0.2 cm in depth Postoperative debridement measurement: Medial ray 0.8 x 3.3, lateral 5.2 x 3.9 cm and medial 0.3 lateral 0.8 cm in depth Specimens bone for culture Control of bleeding: Electrocautery Post debridement dressing: Right side total contact cast Patient tolerated procedure well Date of service: 06/12/2019 Surgeon: Tammi Pre-and postop diagnosis : Diabetic ulcers right foot Procedure: Placement of right-sided total contact cast Procedure: With the patient in supine position, we first placed the thinwall stockinette with the upper portion at the top of the patella. Redundancy was taped to the dorsum of the foot. We then placed the felt pad, taping it over the tibia, dorsum of the foot, plantar aspect of the foot, and Achilles tendon. Corners were cut at the heel. The disks were taped over the malleoli. We then placed the heavy fishnet stockinette with the upper portion at the lower margin of the patella. Redundancy was taped to the dorsum of the foot. The patient was then placed in prone position. Cast material was wetted and rolled onto the foot and leg. The upper edges of the stockinettes were rolled over the top. Wrinkles were smoothed out. Redundancy was smoothed onto the dorsum of the foot. When the cast was hardened, patient was placed in the walking boot. Patient tolerated the procedure well.
[2019-06-12 13:50] LABS: Glucose,Whole Blood 157 mg/dL (75-99)
[2019-06-12] MEDS: DULoxetine HCL 60 MG CAPSULE.DR PO SCH (14:28)
[2019-06-12] MEDS: ASPIRIN 81 MG PO SCH (14:28)
[2019-06-12] MEDS: ATORVASTATIN 20 MG TAB PO SCH (14:28)
[2019-06-12] MEDS: FAMOTIDINE 20 MG TAB PO SCH (14:28)
[2019-06-12] MEDS: DOXYCYCLINE 100 MG CAP PO SCH ×2 (14:51→21:18)
[2019-06-12] MEDS: QUEtiapine 25 MG TAB PO SCH ×2 (15:27→21:18)
[2019-06-12 16:47] LABS: Glucose,Whole Blood 507 mg/dL (75-99)
[2019-06-12] MEDS: SODIUM CHLORIDE 0.9% 1,000 ML IV SCH ×2 (17:00→21:18)
[2019-06-12] MEDS ORDERED: INSULIN REGULAR 100 UNIT in SODIUM CHLORIDE 0.9% 100 ML IV SCH (17:15)
[2019-06-12 18:21] LABS: Glucose,Whole Blood 558 mg/dL (75-99)
[2019-06-12] MEDS: FERROUS SULFATE 325 MG TAB PO SCH (19:04)
[2019-06-12 20:35] LABS: Glucose,Whole Blood 424 mg/dL (75-99)
[2019-06-12] MEDS: HEPARIN SODIUM,PORCINE 5,000 UNIT/ML 1 ML VIAL SQ SCH (21:18)
[2019-06-12] MEDS: QUEtiapine 100 MG TAB PO SCH (21:18)
[2019-06-12 23:02] LABS: Glucose,Whole Blood 138 mg/dL (75-99)
[2019-06-13 01:06] LABS: Glucose,Whole Blood 68 mg/dL (75-99)
[2019-06-13 01:54] LABS: Glucose,Whole Blood 110 mg/dL (75-99)
[2019-06-13 03:28] LABS: Glucose,Whole Blood 177 mg/dL (75-99)
[2019-06-13] MEDS: ALPRAZolam 1 MG TAB PO SCH ×2 (05:50→17:27)
[2019-06-13 05:57] LABS: Glucose,Whole Blood 77 mg/dL (75-99)
[2019-06-13 07:20] LABS: Glucose,Whole Blood 69 mg/dL (75-99)
[2019-06-13 08:34] LABS: Glucose,Whole Blood 161 mg/dL (75-99)
[2019-06-13] MEDS ORDERED: FAMOTIDINE 20 MG TAB PO SCH (09:00)
[2019-06-13] MEDS: HEPARIN SODIUM,PORCINE 5,000 UNIT/ML 1 ML VIAL SQ SCH ×2 (09:06→21:40)
[2019-06-13] MEDS: DOXYCYCLINE 100 MG CAP PO SCH ×2 (09:06→21:40)
[2019-06-13] MEDS: FAMOTIDINE 20 MG TAB PO SCH (09:06)
[2019-06-13] MEDS: ASPIRIN 81 MG PO SCH (09:06)
[2019-06-13] MEDS: ATORVASTATIN 20 MG TAB PO SCH (09:06)
[2019-06-13] MEDS: QUEtiapine 25 MG TAB PO SCH ×2 (09:06→21:41)
[2019-06-13] MEDS: DULoxetine HCL 60 MG CAPSULE.DR PO SCH (09:06)
[2019-06-13] MEDS: VALPROIC ACID ORAL SOLN 250 MG/5 ML CUP PO SCH (09:07)
[2019-06-13] MEDS: HYDROcodone/APAP 10-325MG 1 EACH TAB PO PRN (09:11)
[2019-06-13 09:30] LABS: Glucose,Whole Blood 258 mg/dL (75-99)
[2019-06-13 10:06] LABS: ALT 18 U/L (4-34); AST 19 U/L (14-36); African American GFR (CKD) >90 (>60 ml/min/1.73 sqM); Albumin 2.3 g/dL (3.5-5.0); Alkaline Phosphatase 72 U/L (38-126); Anion Gap 3 mmol/L; Blood Urea Nitrogen 11 mg/dL (7-17); Calcium 8.2 mg/dL (8.4-10.2); Carbon Dioxide 29 mmol/L (22-30); Chloride 106 mmol/L (98-107); Glucose 259 mg/dL (74-99); Non-African American GFR(CKD) 82 (>60 ml/min/1.73 sqM); Potassium 4.3 mmol/L (3.5-5.1); Sodium 138 mmol/L (137-145); Total Bilirubin 0.6 mg/dL (0.2-1.3); Total Protein 5.1 g/dL (6.3-8.2)
[2019-06-13 10:07] LABS: Basophils % (A) 0 %; Eosinophils # (A) 0.1 k/uL (0-0.7); Eosinophils % (A) 1 %; HCT 27.1 % (34.0-46.0); HGB 8.3 gm/dL (11.4-16.0); Hypochromasia Slight; Lymphocytes # (A) 1.6 k/uL (1.0-4.8); Lymphocytes % (A) 32 %; MCH 29.1 pg (25.0-35.0); MCHC 30.5 g/dL (31.0-37.0); MCV 95.5 fL (80.0-100.0); Mean Platelet Volume 8.9; Monocytes # (A) 0.3 k/uL (0-1.0); Monocytes % (A) 5 %; Neutrophils % (A) 60 %; Platelet Count 216 k/uL (150-450); RBC 2.84 m/uL (3.80-5.40); RDW 15.1 % (11.5-15.5)
--- NOTE | 2019-06-13 10:25 | P.PN ---
Subjective Progress Note Date: 06/13/19 Melva Park is a 58-year-old female with known history of insulin-dependent diabetes mellitus type 1 and peripheral vascular disease who was recently discharged from [facility]. Patient was therefore short time, she was found to have a glucose level of 665 she was having mental status changes she was sent back to [facility] emergency room, she was started on IV insulin drip and was admitted to medical floor. Patient has multiple medical problems including history of hypertension, history of hyperlipidemia, history of asthma, history of severe peripheral vascular disease with chronic wounds on the right leg requiring toe amputation, history of stroke, history of congestive heart failure, history of coronary artery disease with previous history of angioplasty and stent placement, history of depression with anxiety disorder. Patient was seen and examined on 06/10/2019, she is alert slightly confused in no apparent distress, she has been maintained on IV insulin drip and her glucose level is below 200 this time, there is no fever or chills no headache or dizziness no chest pain no shortness of breath no cough no nausea or vomiting no abdominal pain no diarrhea no burning with urination no frequency or urgency and no hematuria. On 06/11/2019 patient was seen and examined on the medical floor, she is alert slightly confused in no distress, glucose level is well-controlled at this time, she had an episode of hypoglycemia this morning, at this time will decrease Levemir dose to 20 units down from 22 units and monitor glucose level closely. On review of systems patient is complaining of pain in her lower extremity, otherwise she denies any complaints there is no fever or chills no headache or dizziness no chest pain no shortness of breath no cough no nausea or vomiting no abdominal pain no diarrhea and no urinary symptoms. On 06/12/2019 patient is alert and resting comfortably in bed. Plans for debridement today with Dr. Egan of foot wound. Long-acting insulin insulin currently on hold. Blood sugar this a.m. 176. This time patient denies chest pain or shortness of breath. Patient moving diarrhea. Denies any urinary burning or frequency On 06/13/2019 patient is status post debridement of right foot wounds with Dr. Egan. She is currently postop day 1. Blood sugars after surgical procedure greater than 400. Patient was started back on insulin drip. Current blood sugar 166. Will transition patient to NovoLog 6 units and 12 units of long- acting insulin will continue to monitor blood sugars closely due to known brittle diabetic. At this time patient denies chest pain or shortness of breath. Patient denies nausea vomiting or diarrhea. Patient denies any urinary burning or frequency. Objective - Vital Signs Vital signs: Vital Signs Temp 98.1 F 06/13/19 07:48 Pulse 91 06/13/19 07:48 Resp 18 06/13/19 07:48 BP 148/84 06/13/19 07:48 Pulse Ox 98 06/13/19 07:48 Intake & Output 06/12/19 06/13/19 06/13/19 18:59 06:59 18:59 Intake Total 675 68.049 Output Total 30 Balance 645 68.049 Intake: IV 675 Intake, IV Titration 68.049 Amount Insulin Regular 100 unit 68.049 In Sodium Chloride 0.9% 100 ml @ Titrate IV .Q0M [facility] Rx#:[id number] Output: Estimated Blood Loss 30 Other: Voiding Method Incontinent Incontinent # Voids 1 2 - Exam In general patient is alert slightly confused in no apparent distress HEENT head normocephalic and atraumatic Neck is supple no JVD no goiter no lymphadenopathy Chest exam reveals a few scattered rhonchi no wheezing Cardiac exam reveals regular heart sounds no gallops no murmurs Abdomen is soft nontender no organomegaly with normal bowel sounds Extremity exam reveals no edema no cyanosis or clubbing, right foot with previous second toe amputation and open wounds. Neurological examination reveals weakness related to previous stroke without any acute neurological changes - Labs CBC & Chem 7: 06/13/19 09:27 06/13/19 09:27 Labs: Abnormal Lab Results - Last 24 Hours (Table) 06/12/19 06/12/19 06/12/19 Range/Units 07:30 12:07 16:46 RBC (3.80-5.40) m/uL Hgb (11.4-16.0) gm/dL Hct (34.0-46.0) % MCHC (31.0-37.0) g/dL Glucose (74-99) mg/dL POC Glucose (mg/dL) 157 H 145 H 507 H (75-99) mg/dL Calcium (8.4-10.2) mg/dL Total Protein (6.3-8.2) g/dL Albumin (3.5-5.0) g/dL 06/12/19 06/12/19 06/12/19 Range/Units 18:08 20:23 22:50 RBC (3.80-5.40) m/uL Hgb (11.4-16.0) gm/dL Hct (34.0-46.0) % MCHC (31.0-37.0) g/dL Glucose (74-99) mg/dL POC Glucose (mg/dL) 558 H 424 H 138 H (75-99) mg/dL Calcium (8.4-10.2) mg/dL Total Protein (6.3-8.2) g/dL Albumin (3.5-5.0) g/dL 06/13/19 06/13/19 06/13/19 Range/Units 00:54 01:40 03:16 RBC (3.80-5.40) m/uL Hgb (11.4-16.0) gm/dL Hct (34.0-46.0) % MCHC (31.0-37.0) g/dL Glucose (74-99) mg/dL POC Glucose (mg/dL) 68 L 110 H 177 H (75-99) mg/dL Calcium (8.4-10.2) mg/dL Total Protein (6.3-8.2) g/dL Albumin (3.5-5.0) g/dL 06/13/19 06/13/19 06/13/19 Range/Units 07:07 08:21 09:18 RBC (3.80-5.40) m/uL Hgb (11.4-16.0) gm/dL Hct (34.0-46.0) % MCHC (31.0-37.0) g/dL Glucose (74-99) mg/dL POC Glucose (mg/dL) 69 L 161 H 258 H (75-99) mg/dL Calcium (8.4-10.2) mg/dL Total Protein (6.3-8.2) g/dL Albumin (3.5-5.0) g/dL 06/13/19 06/13/19 Range/Units 09:27 09:27 RBC 2.84 L (3.80-5.40) m/uL Hgb 8.3 L (11.4-16.0) gm/dL Hct 27.1 L (34.0-46.0) % MCHC 30.5 L (31.0-37.0) g/dL Glucose 259 H (74-99) mg/dL POC Glucose (mg/dL) (75-99) mg/dL Calcium 8.2 L (8.4-10.2) mg/dL Total Protein 5.1 L (6.3-8.2) g/dL Albumin 2.3 L (3.5-5.0) g/dL Microbiology - Last 24 Hours (Table) 06/12/19 11:20 Gram Stain - Preliminary Foot - Right Tissue Culture - Preliminary 06/12/19 11:20 Anaerobic Culture - Preliminary Foot - Right Assessment and Plan Assessment: #1 severe hyperglycemia likely related to noncompliance with diet, patient consumes large amount of candies in a binge manner occasionally. She was counseled in length in that regard, she was started on IV insulin drip in the emergency room . Patient was started back on insulin drip post surgical intervention. At this time insulin drip will be DC'd. Patient will be started back on NovoLog sliding scale +6 units with meals and 12 units of Levemir #2 right foot wound infection with osteomyelitis, continue doxycycline by mouth. Status post debridement of right foot once per Dr. Egan. theresa is currently postop day 1 #3 underlying history of hypertension #4 underlying history of hyperlipidemia #5 underlying history of congestive heart failure #6 underlying history of coronary artery disease with previous history of angioplasty and stent placement #7 underlying history of depression with anxiety disorder DVT prophylaxis heparin. GI prophylaxis Pepcid Continue to job counselor regarding diet Continue with oral antibiotic doxycycline PT and OT has been consulted I performed an examination of the patient and discussed their management with the Nurse Practitioner. I have reviewed the Nurse Practitioner's notes and agree with the documented findings and plan of care
[2019-06-13 11:09] LABS: Glucose,Whole Blood 223 mg/dL (75-99)
[2019-06-13 12:02] LABS: Glucose,Whole Blood 261 mg/dL (75-99)
[2019-06-13] MEDS: FERROUS SULFATE 325 MG TAB PO SCH (12:48)
[2019-06-13] MEDS: INSULIN ASPART (NovoLOG) 100 UNIT/ML VIAL SQ SCH ×5 (12:48→20:54)
--- NOTE | 2019-06-13 16:02 | P.PN ---
Subjective Progress Note Date: 06/13/19 Principal diagnosis: Right lower extremity chronic wounds with infection. 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 POD #1 Excisional surgical debridement including bone, tendon, soft tissue with placement of total contact cast The patient is currently sitting up in bed on the medical surgical unit in no acute distress. She states pain is controlled on current medication regimen. Contact cast currently in place to right lower extremity. Blood sugars have been very labile. No new concerns. Objective - Vital Signs Vital signs: Vital Signs Temp 98.1 F 06/13/19 07:48 Pulse 91 06/13/19 08:00 Resp 18 06/13/19 08:00 BP 148/84 06/13/19 07:48 Pulse Ox 98 06/13/19 07:48 Intake & Output 06/12/19 06/13/19 06/13/19 18:59 06:59 18:59 Intake Total 675 68.049 400 Output Total 30 Balance 645 68.049 400 Intake: IV 675 400 Sodium Chloride 0.9% 1, 400 000 ml @ 50 mls/hr IV . Q20H [facility] Rx#:[id number] Intake, IV Titration 68.049 Amount Insulin Regular 100 unit 68.049 In Sodium Chloride 0.9% 100 ml @ Titrate IV .Q0M [facility] Rx#:[id number] Output: Estimated Blood Loss 30 Other: Voiding Method Incontinent Incontinent Incontinent # Voids 1 2 - Constitutional General appearance: Present: cooperative, no acute distress - Respiratory Details: Lungs sounds diminished bilaterally. Respirations even, nonlabored. Currently on room air with oxygen saturation 98%. - Cardiovascular Details: S1, S2 present. Regular rate and rhythm. Palpable peripheral pulses bilaterally. No edema present. No calf pain or tenderness. - Gastrointestinal Gastrointestinal Comment(s): Abdomen soft, non-tender, non-distended. Active bowel sounds x 4 quadrants. Tolerating diet - Genitourinary Genitourinary Comment(s): Continues to void - Integumentary Integumentary Comment(s): Skin is warm and dry. Total contact cast in place to right lower extremity. - Musculoskeletal Musculoskeletal: Present: strength equal bilaterally - Psychiatric Psychiatric: Present: A&O x's 3, appropriate affect - Allied health notes Allied health notes reviewed: nursing - Labs CBC & Chem 7: 06/13/19 09:27 06/13/19 09:27 Labs: Abnormal Lab Results - Last 24 Hours (Table) 06/12/19 06/12/19 06/12/19 Range/Units 16:46 18:08 20:23 RBC (3.80-5.40) m/uL Hgb (11.4-16.0) gm/dL Hct (34.0-46.0) % MCHC (31.0-37.0) g/dL Glucose (74-99) mg/dL POC Glucose (mg/dL) 507 H 558 H 424 H (75-99) mg/dL Calcium (8.4-10.2) mg/dL Total Protein (6.3-8.2) g/dL Albumin (3.5-5.0) g/dL 06/12/19 06/13/19 06/13/19 Range/Units 22:50 00:54 01:40 RBC (3.80-5.40) m/uL Hgb (11.4-16.0) gm/dL Hct (34.0-46.0) % MCHC (31.0-37.0) g/dL Glucose (74-99) mg/dL POC Glucose (mg/dL) 138 H 68 L 110 H (75-99) mg/dL Calcium (8.4-10.2) mg/dL Total Protein (6.3-8.2) g/dL Albumin (3.5-5.0) g/dL 06/13/19 06/13/19 06/13/19 Range/Units 03:16 07:07 08:21 RBC (3.80-5.40) m/uL Hgb (11.4-16.0) gm/dL Hct (34.0-46.0) % MCHC (31.0-37.0) g/dL Glucose (74-99) mg/dL POC Glucose (mg/dL) 177 H 69 L 161 H (75-99) mg/dL Calcium (8.4-10.2) mg/dL Total Protein (6.3-8.2) g/dL Albumin (3.5-5.0) g/dL 06/13/19 06/13/19 06/13/19 Range/Units 09:18 09:27 09:27 RBC 2.84 L (3.80-5.40) m/uL Hgb 8.3 L (11.4-16.0) gm/dL Hct 27.1 L (34.0-46.0) % MCHC 30.5 L (31.0-37.0) g/dL Glucose 259 H (74-99) mg/dL POC Glucose (mg/dL) 258 H (75-99) mg/dL Calcium 8.2 L (8.4-10.2) mg/dL Total Protein 5.1 L (6.3-8.2) g/dL Albumin 2.3 L (3.5-5.0) g/dL 06/13/19 06/13/19 Range/Units 10:57 11:50 RBC (3.80-5.40) m/uL Hgb (11.4-16.0) gm/dL Hct (34.0-46.0) % MCHC (31.0-37.0) g/dL Glucose (74-99) mg/dL POC Glucose (mg/dL) 223 H 261 H (75-99) mg/dL Calcium (8.4-10.2) mg/dL Total Protein (6.3-8.2) g/dL Albumin (3.5-5.0) g/dL Microbiology - Last 24 Hours (Table) 06/12/19 11:20 Gram Stain - Preliminary Foot - Right Tissue Culture - Preliminary 06/12/19 11:20 Anaerobic Culture - Preliminary Foot - Right Assessment and Plan Assessment: 1. Chronic right lower extremity wounds, S/P debridement with placement of total contact cast 2. History of MRSA and strep infection to her right foot wounds 3. Uncontrolled type 2 diabetes with hyperglycemia, most recent hemoglobin A1c 9.5%, recent admission for DKA 4. History of coronary artery disease 5. Chronic CHF 6. COPD 7. CVA 8. Previous tobacco dependence Plan: 1. Maintain total contact cast. Walking boot to be applied for ambulation 2. Follow up in wound care center for TCC change. Appointment made 3. Patient needs tight control of blood sugars 4. Appropriate for rehab placement at discharge. PT/OT consulted 5. Continue doxycline per ID 6. GI/DVT prophylaxis 7. Medical management of other comorbidities per primary care service 8. Will continue to see while hospitalized as needed Time with Patient: Greater than 30
[2019-06-13 16:59] LABS: Glucose,Whole Blood 94 mg/dL (75-99)
[2019-06-13 20:33] LABS: Glucose,Whole Blood 114 mg/dL (75-99)
[2019-06-13] MEDS: QUEtiapine 100 MG TAB PO SCH (21:41)
[2019-06-13] MEDS: INSULIN DETEMIR (LEVEMIR) 100 UNIT/ML SYR SQ SCH (21:41)
[2019-06-14] MEDS: ALPRAZolam 1 MG TAB PO SCH ×3 (01:00→12:55)
[2019-06-14 06:59] LABS: Basophils % (A) 1 %; Eosinophils # (A) 0.1 k/uL (0-0.7); Eosinophils % (A) 2 %; HCT 27.6 % (34.0-46.0); HGB 8.7 gm/dL (11.4-16.0); Hypochromasia Moderate; Lymphocytes # (A) 1.3 k/uL (1.0-4.8); Lymphocytes % (A) 35 %; MCH 30.3 pg (25.0-35.0); MCHC 31.3 g/dL (31.0-37.0); MCV 96.6 fL (80.0-100.0); Mean Platelet Volume 8.5; Monocytes # (A) 0.1 k/uL (0-1.0); Monocytes % (A) 4 %; Neutrophils # (A) 2.1 k/uL (1.3-7.7); Neutrophils % (A) 57 %; Platelet Count 187 k/uL (150-450); RBC 2.86 m/uL (3.80-5.40); RDW 14.9 % (11.5-15.5); WBC 3.6 k/uL (3.8-10.6)
[2019-06-14 07:13] LABS: ALT 18 U/L (4-34); AST 18 U/L (14-36); African American GFR (CKD) >90 (>60 ml/min/1.73 sqM); Albumin 2.5 g/dL (3.5-5.0); Alkaline Phosphatase 85 U/L (38-126); Anion Gap 5 mmol/L; Blood Urea Nitrogen 14 mg/dL (7-17); Calcium 8.2 mg/dL (8.4-10.2); Carbon Dioxide 27 mmol/L (22-30); Chloride 105 mmol/L (98-107); Glucose 433 mg/dL (74-99); Non-African American GFR(CKD) 79 (>60 ml/min/1.73 sqM); Potassium 4.9 mmol/L (3.5-5.1); Sodium 137 mmol/L (137-145); Total Bilirubin 0.7 mg/dL (0.2-1.3); Total Protein 5.3 g/dL (6.3-8.2)
[2019-06-14 07:32] LABS: Glucose,Whole Blood 478 mg/dL (75-99)
[2019-06-14] MEDS: FERROUS SULFATE 325 MG TAB PO SCH (07:54)
[2019-06-14] MEDS: DULoxetine HCL 60 MG CAPSULE.DR PO SCH (07:54)
[2019-06-14] MEDS: FAMOTIDINE 20 MG TAB PO SCH (07:54)
[2019-06-14] MEDS: ATORVASTATIN 20 MG TAB PO SCH (07:54)
[2019-06-14] MEDS: HEPARIN SODIUM,PORCINE 5,000 UNIT/ML 1 ML VIAL SQ SCH ×2 (07:54→22:42)
[2019-06-14] MEDS: VALPROIC ACID ORAL SOLN 250 MG/5 ML CUP PO SCH (07:54)
[2019-06-14] MEDS: DOXYCYCLINE 100 MG CAP PO SCH ×2 (07:54→22:42)
[2019-06-14] MEDS: ASPIRIN 81 MG PO SCH (07:54)
[2019-06-14] MEDS: QUEtiapine 25 MG TAB PO SCH ×2 (07:54→22:42)
[2019-06-14] MEDS: INSULIN ASPART (NovoLOG) 100 UNIT/ML VIAL SQ SCH ×7 (07:55→22:43)
[2019-06-14] MEDS: SODIUM CHLORIDE 0.9% 1,000 ML IV SCH (09:49)
--- NOTE | 2019-06-14 10:20 | P.PN ---
Subjective Progress Note Date: 06/14/19 Melva Park is a 58-year-old female with known history of insulin-dependent diabetes mellitus type 1 and peripheral vascular disease who was recently discharged from [facility] to the [facility]. Patient was therefore short time, she was found to have a glucose level of 665 she was having mental status changes she was sent back to [facility] emergency room, she was started on IV insulin drip and was admitted to medical floor. Patient has multiple medical problems including history of hypertension, history of hyperlipidemia, history of asthma, history of severe peripheral vascular disease with chronic wounds on the right leg requiring toe amputation, history of stroke, history of congestive heart failure, history of coronary artery disease with previous history of angioplasty and stent placement, history of depression with anxiety disorder. Patient was seen and examined on 06/10/2019, she is alert slightly confused in no apparent distress, she has been maintained on IV insulin drip and her glucose level is below 200 this time, there is no fever or chills no headache or dizziness no chest pain no shortness of breath no cough no nausea or vomiting no abdominal pain no diarrhea no burning with urination no frequency or urgency and no hematuria. On 06/11/2019 patient was seen and examined on the medical floor, she is alert slightly confused in no distress, glucose level is well-controlled at this time, she had an episode of hypoglycemia this morning, at this time will decrease Levemir dose to 20 units down from 22 units and monitor glucose level closely. On review of systems patient is complaining of pain in her lower extremity, otherwise she denies any complaints there is no fever or chills no headache or dizziness no chest pain no shortness of breath no cough no nausea or vomiting no abdominal pain no diarrhea and no urinary symptoms. On 06/12/2019 patient is alert and resting comfortably in bed. Plans for debridement today with Dr. Egan of foot wound. Long-acting insulin insulin currently on hold. Blood sugar this a.m. 176. This time patient denies chest pain or shortness of breath. Patient moving diarrhea. Denies any urinary burning or frequency On 06/13/2019 patient is status post debridement of right foot wounds with Dr. Egan. She is currently postop day 1. Blood sugars after surgical procedure greater than 400. Patient was started back on insulin drip. Current blood sugar 166. Will transition patient to NovoLog 6 units and 12 units of long- acting insulin will continue to monitor blood sugars closely due to known brittle diabetic. At this time patient denies chest pain or shortness of breath. Patient denies nausea vomiting or diarrhea. Patient denies any urinary burning or frequency. On 06/14/2019 patient is currently postop day 2 from debridement of right foot wounds. Discussed case with Angela nurse practitioner with Dr. Egan. Planning to switch boot tomorrow. Blood sugars remain fluctuating. Blood sugar last night 112 per nursing staff long-acting insulin was held blood sugar this a.m. 478. At this time patient denies chest pain or shortness of breath. Patient denies nausea vomiting or diarrhea. Patient denies any urinary burning or frequency Objective - Vital Signs Vital signs: Vital Signs Temp 97.7 F 06/14/19 08:00 Pulse 103 H 06/14/19 08:00 Resp 19 06/14/19 08:00 BP 136/81 06/14/19 08:00 Pulse Ox 96 06/14/19 08:00 Intake & Output 06/13/19 06/14/19 06/14/19 18:59 06:59 18:59 Intake Total 400 150 Balance 400 150 Intake: IV 400 150 Sodium Chloride 0.9% 1, 400 150 000 ml @ 50 mls/hr IV . Q20H [facility] Rx#:[id number] Other: Voiding Method Diaper Diaper Incontinent Incontinent # Voids 1 2 - Exam In general patient is alert slightly confused in no apparent distress HEENT head normocephalic and atraumatic Neck is supple no JVD no goiter no lymphadenopathy Chest exam reveals a few scattered rhonchi no wheezing Cardiac exam reveals regular heart sounds no gallops no murmurs Abdomen is soft nontender no organomegaly with normal bowel sounds Extremity exam reveals no edema no cyanosis or clubbing, right foot with previous second toe amputation and open wounds. Right boot in place dressing is clean dry and intact Neurological examination reveals weakness related to previous stroke without any acute neurological changes - Labs CBC & Chem 7: 06/14/19 06:31 06/14/19 06:31 Labs: Abnormal Lab Results - Last 24 Hours (Table) 06/13/19 06/13/19 06/13/19 Range/Units 09:27 09:27 10:57 WBC (3.8-10.6) k/uL RBC 2.84 L (3.80-5.40) m/uL Hgb 8.3 L (11.4-16.0) gm/dL Hct 27.1 L (34.0-46.0) % MCHC 30.5 L (31.0-37.0) g/dL Glucose 259 H (74-99) mg/dL POC Glucose (mg/dL) 223 H (75-99) mg/dL Calcium 8.2 L (8.4-10.2) mg/dL Total Protein 5.1 L (6.3-8.2) g/dL Albumin 2.3 L (3.5-5.0) g/dL 06/13/19 06/13/19 06/14/19 Range/Units 11:50 20:21 06:31 WBC 3.6 L (3.8-10.6) k/uL RBC 2.86 L (3.80-5.40) m/uL Hgb 8.7 L (11.4-16.0) gm/dL Hct 27.6 L (34.0-46.0) % MCHC (31.0-37.0) g/dL Glucose (74-99) mg/dL POC Glucose (mg/dL) 261 H 114 H (75-99) mg/dL Calcium (8.4-10.2) mg/dL Total Protein (6.3-8.2) g/dL Albumin (3.5-5.0) g/dL 06/14/19 06/14/19 Range/Units 06:31 07:21 WBC (3.8-10.6) k/uL RBC (3.80-5.40) m/uL Hgb (11.4-16.0) gm/dL Hct (34.0-46.0) % MCHC (31.0-37.0) g/dL Glucose 433 H (74-99) mg/dL POC Glucose (mg/dL) 478 H (75-99) mg/dL Calcium 8.2 L (8.4-10.2) mg/dL Total Protein 5.3 L (6.3-8.2) g/dL Albumin 2.5 L (3.5-5.0) g/dL Microbiology - Last 24 Hours (Table) 06/12/19 11:20 Gram Stain - Preliminary Foot - Right Tissue Culture - Preliminary Assessment and Plan Assessment: #1 severe hyperglycemia likely related to noncompliance with diet, patient consumes large amount of candies in a binge manner occasionally. She was counseled in length in that regard, she was started on IV insulin drip in the emergency room . Patient was started back on insulin drip post surgical intervention. At this time insulin drip will be DC'd. Patient will be started back on NovoLog sliding scale +6 units with meals and 12 units of Levemir #2 right foot wound infection with osteomyelitis, continue doxycycline by mouth. Status post debridement of right foot once per Dr. Egan. theresa is currently postop day 2. Per nurse practitioner in the planning to switch boot tomorrow 06/15/2019 prior to discharge #3 underlying history of hypertension #4 underlying history of hyperlipidemia #5 underlying history of congestive heart failure #6 underlying history of coronary artery disease with previous history of angioplasty and stent placement #7 underlying history of depression with anxiety disorder DVT prophylaxis heparin. GI prophylaxis Pepcid Continue to residence counselor regarding diet Continue with oral antibiotic doxycycline PT and OT has been consulted I performed an examination of the patient and discussed their management with the Nurse Practitioner. I have reviewed the Nurse Practitioner's notes and agree with the documented findings and plan of care
[2019-06-14 12:08] LABS: Glucose,Whole Blood 269 mg/dL (75-99)
--- NOTE | 2019-06-14 14:32 | P.PCN ---
Date of Procedure: 06/14/19 Procedure(s) Performed: Provider: Naomy Pre-and postop diagnosis :[ Arthrosclerosis of the [place] vessels of right leg with ulceration of other part of foot, nonpressure chronic ulcer of other part of foot with muscle exposed, diabetes with foot ulcer] Procedure: Placement of [right ] total contact cast Procedure: With the patient in supine position, we first placed the thinwall stockinette with the upper portion at the top of the patella. Redundancy was taped to the dorsum of the foot. We then placed the felt pad, taping it over the tibia, dorsum of the foot, plantar aspect of the foot, and Achilles tendon. Corners were cut at the heel. The disks were taped over the malleoli. We then placed the heavy fishnet stockinette with the upper portion at the lower margin of the patella. Redundancy was taped to the dorsum of the foot. The patient was then placed in prone position. Cast material was wetted and rolled onto the foot and leg. The upper edges of the stockinettes were rolled over the top. Wrinkles were smoothed out. Redundancy was smoothed onto the dorsum of the foot. When the cast was hardened, patient was placed in the walking boot. Patient tolerated the procedure well. Abrasion noted to left lower extremity related to rubbing of the cast. Zinc applied to site with foam and Kerlix to secure.
--- NOTE | 2019-06-14 14:36 | P.PN ---
Subjective Progress Note Date: 06/14/19 Patient is tolerating total contact cast. Patient has abrasions to the left anterior leg due to rubbing of the total contact cast. Cast removed and reapplied. Ulceration shows Slough with minimal granulation to dorsal foot and lateral foot. Patient has no complaints Objective - Vital Signs Vital signs: Vital Signs Temp 97.7 F 06/14/19 08:00 Pulse 103 H 06/14/19 08:00 Resp 19 06/14/19 08:00 BP 136/81 06/14/19 08:00 Pulse Ox 96 06/14/19 08:00 Intake & Output 06/13/19 06/14/19 06/14/19 18:59 06:59 18:59 Intake Total 400 150 650 Balance 400 150 650 Intake: IV 400 150 400 Sodium Chloride 0.9% 1, 400 150 400 000 ml @ 50 mls/hr IV . Q20H [facility] Rx#:[id number] Oral 250 Other: Voiding Method Diaper Diaper Diaper Incontinent Incontinent Incontinent # Voids 1 2 - Exam Ulceration to lateral foot has adherent Slough with minimal granulation, ulceration to dorsal foot shows granulation with minimal adherent Slough - Labs CBC & Chem 7: 06/14/19 06:31 06/14/19 06:31 Labs: Abnormal Lab Results - Last 24 Hours (Table) 06/13/19 06/14/19 06/14/19 Range/Units 20:21 06:31 06:31 WBC 3.6 L (3.8-10.6) k/uL RBC 2.86 L (3.80-5.40) m/uL Hgb 8.7 L (11.4-16.0) gm/dL Hct 27.6 L (34.0-46.0) % Glucose 433 H (74-99) mg/dL POC Glucose (mg/dL) 114 H (75-99) mg/dL Calcium 8.2 L (8.4-10.2) mg/dL Total Protein 5.3 L (6.3-8.2) g/dL Albumin 2.5 L (3.5-5.0) g/dL 06/14/19 06/14/19 Range/Units 07:21 11:56 WBC (3.8-10.6) k/uL RBC (3.80-5.40) m/uL Hgb (11.4-16.0) gm/dL Hct (34.0-46.0) % Glucose (74-99) mg/dL POC Glucose (mg/dL) 478 H 269 H (75-99) mg/dL Calcium (8.4-10.2) mg/dL Total Protein (6.3-8.2) g/dL Albumin (3.5-5.0) g/dL Microbiology - Last 24 Hours (Table) 06/12/19 11:20 Gram Stain - Preliminary Foot - Right Tissue Culture - Preliminary Coagulase Negative Staph Assessment and Plan (1) Non-pressure chronic ulcer of other part of right foot with fat layer exposed Current Visit: Yes Status: Acute Code(s): L97.512 - NON-PRS CHRONIC ULCER OTH PRT RIGHT FOOT W FAT LAYER EXPOSED SNOMED Code(s): 718863958 (2) Diabetes mellitus due to underlying condition with foot ulcer Current Visit: Yes Status: Acute Code(s): E08.621 - DIABETES MELLITUS DUE TO UNDERLYING CONDITION W FOOT ULCER; L97.509 - NON-PRESSURE CHRONIC ULCER OTH PRT UNSP FOOT W UNSP SEVERITY SNOMED Code(s): 1946109 (3) Atherosclerosis of [place] arteries of right leg with ulceration of other part of foot Current Visit: No Status: Acute Code(s): I70.235 - ATHSCL [place] ARTERIES OF RIGHT LEG W ULCER OTH PRT FOOT SNOMED Code(s): 949956994350212 Plan: Obstructive silver and foam applied to right lower extremity, right total contact cast applied, nonweightbearing to right lower extremity. Zinc barrier cream applied to left anterior lower extremity with foam and Kerlix. Patient to return to the wound care center next Wednesday for her weekly appointment. Instructed given on weightbearing status patient verbalized understanding DNP note has been reviewed and discussed with Dr. Cadena and the impression and plan of care has been directed as dictated.
--- NOTE | 2019-06-14 15:05 | CDI ---
Documentation Clarification Form Date: 06/14/2019 02:37:55 PM From: Janice Freeman RN CCDS Admit Date: 06/11/2019 02:17:00 PM Patient Name: Melva Jackson Visit Number: [id number] Discharge Date: ATTENTION: The Clinical Documentation Specialists (CDI) and [facility] Coding Staff appreciate your assistance in clarifying documentation. Please respond to the clarification below the line at the bottom and electronically sign. The CDI & [facility] Coding staff will review the response and follow-up if needed. Please note: Queries are made part of the Legal Health Record. If you have any questions, please contact the author of this message via ITS. Dr. Sherlyn Chen Altered Mental Status was documented in the H & P History/Risk Factors: 58-year-old female with a medical history of DM, COPD, HTN with recent admission for DKA and wound infection. Clinical Indicators: She was found to have a glucose level of 665 she was having mental status changes she was sent back to [facility] Emergency Room, she was started on IV insulin drip and admitted to medical floor H & P Per your Progress note 06/10 she is alert slightly confused in no apparent distress, she has been maintained on IV insulin drip and her glucose level is below 200 this time. Per your Progress note 06/11 She is alert slightly confused in no distress, glucose level is well controlled at this time, she had an episode of hypoglycemia this morning, at this time will decrease Levemir dose to 20 units down from 22 units and monitor glucose level closely. Labs: 06/09/19 Glucose 649; POC Glucose 06/10/19 152; 06/10/19 POC glucose 327; 06/11/19 Glucose 25; 06/12/19 POC glucose 558; 06/13/2019 POC Glucose 114; 06/14/19 POC Glucose 478; Treatment: 06/09 Humulin R 6 unit iv x1; Insulin Human Regular 101mls @ 5.772 mls/hr iv Q [id number], 06/10 Insulin Aspart sliding scale ACHS; Levemir 22 unit HS; Insulin Glargine 25 units HS ; orders changed 06/13 discontinued ivpb insulin, and Insulin Glargine, Levemir 22 unit HS; 06/13 Levemir 12units HS In your professional opinion, please clarify the etiology of the Altered Mental Status, if known. * Metabolic Encephalopathy secondary to hyperglycemia * Metabolic Encephalopathy ruled out * Metabolic Encephalopathy (please specify) * Other condition (please specify) * Unable to determine (Last Revision: August 2017) metabolic encephalopathy secondary to hyperglycemia MTDD
[2019-06-14 16:49] LABS: Glucose,Whole Blood 71 mg/dL (75-99)
[2019-06-14 20:41] LABS: Glucose,Whole Blood 201 mg/dL (75-99)
[2019-06-14] MEDS: INSULIN DETEMIR (LEVEMIR) 100 UNIT/ML SYR SQ SCH (22:42)
[2019-06-14] MEDS: QUEtiapine 100 MG TAB PO SCH (22:42)
[2019-06-14 22:50] LABS: Glucose,Whole Blood 359 mg/dL (75-99)
[2019-06-14 23:54] LABS: Hemoglobin A1C 8.4 % (4.0-6.0)
[2019-06-15] MEDS: ALPRAZolam 1 MG TAB PO SCH ×4 (00:02→21:34)
[2019-06-15 02:18] LABS: Glucose,Whole Blood 185 mg/dL (75-99)
[2019-06-15] MEDS: SODIUM CHLORIDE 0.9% 1,000 ML IV SCH ×2 (03:55→21:49)
[2019-06-15 06:54] LABS: Glucose,Whole Blood 65 mg/dL (75-99)
[2019-06-15 07:12] LABS: Glucose,Whole Blood 89 mg/dL (75-99)
[2019-06-15] MEDS: INSULIN ASPART (NovoLOG) 100 UNIT/ML VIAL SQ SCH ×7 (07:23→21:28)
[2019-06-15 07:30] LABS: Basophils % (A) 1 %; Eosinophils # (A) 0.1 k/uL (0-0.7); Eosinophils % (A) 1 %; HGB 8.4 gm/dL (11.4-16.0); Lymphocytes # (A) 1.4 k/uL (1.0-4.8); Lymphocytes % (A) 36 %; MCH 30.5 pg (25.0-35.0); MCHC 32.3 g/dL (31.0-37.0); MCV 94.5 fL (80.0-100.0); Mean Platelet Volume 8.7; Monocytes # (A) 0.2 k/uL (0-1.0); Monocytes % (A) 5 %; Neutrophils # (A) 2.2 k/uL (1.3-7.7); Neutrophils % (A) 55 %; Platelet Count 212 k/uL (150-450); RBC 2.75 m/uL (3.80-5.40)
[2019-06-15 07:53] LABS: Albumin 2.5 g/dL (3.5-5.0); Calcium 8.4 mg/dL (8.4-10.2); Total Bilirubin 0.3 mg/dL (0.2-1.3); Total Protein 5.3 g/dL (6.3-8.2)
[2019-06-15] MEDS: VALPROIC ACID ORAL SOLN 250 MG/5 ML CUP PO SCH (09:50)
[2019-06-15] MEDS: HEPARIN SODIUM,PORCINE 5,000 UNIT/ML 1 ML VIAL SQ SCH ×2 (09:51→21:33)
[2019-06-15] MEDS: DULoxetine HCL 60 MG CAPSULE.DR PO SCH (09:51)
[2019-06-15] MEDS: QUEtiapine 25 MG TAB PO SCH ×2 (09:51→21:58)
[2019-06-15] MEDS: FAMOTIDINE 20 MG TAB PO SCH (09:51)
[2019-06-15] MEDS: ATORVASTATIN 20 MG TAB PO SCH (09:51)
[2019-06-15] MEDS: ASPIRIN 81 MG PO SCH (09:51)
[2019-06-15] MEDS: DOXYCYCLINE 100 MG CAP PO SCH (09:51)
[2019-06-15 11:56] LABS: Glucose,Whole Blood 138 mg/dL (75-99)
--- OUTSIDE RECORDS SUMMARY | 2019-06-15 13:38 | XMS REPORT | Referral Summary ---
:1960 Author Name Purnimat Address [address] [facility] [address] Care Team Providers Name Role Phone Tammi Unavailable Unavailable Asaf Unavailable Unavailable Ita [facility]available [facility] Unavailable Allergies, Adverse Reactions and Alerts Substance Reaction Reaction Severity Status phenobarbital cant breathe Severe Active morphine cant breathe Severe Active penicillin rash Moderate Active bee venom protein (honey bee) cant breathe Severe Ac tive Medications Medication Directions Start Date Status alprazolam 0.5 mg tablet 1 tablet oral Unspecified active valproic acid 250 mg capsule 1 capsule oral Unspecified act finesse Seroquel 100 mg tablet 1 tablet oral Unspecified active [place] 5 mg-325 mg tablet 1 tablet oral Unspecified active Cymbalta 20 mg capsule,delayed 1 capsule,delayed release(DR/EC) Unspecified active release oral Zofran 4 mg tablet 1 tablet oral/daily 04/26/2019 active Lipitor 10 mg tablet 1 tablet oral/daily 04/26/2019 active Ventolin HFA 90 mcg/actuation 1 HFA aerosol inhaler inhalation 1 06/26/2018 active aerosol inhaler Pepcid 20 mg tablet 1 tablet oral/daily 04/26/2019 active Lantus U-100 Insulin 100 unit/mL 25 solution subcutaneous/daily 04/26/2019 active subcutaneous solution aspirin 81 mg chewable tablet 1 tablet,chewable oral/daily 04/26 active B Complex 1.7 mg-20 mg-2 mg-1.2 1 liquid sublingual 04/26/2019 active mg/mL sublingual liquid Santyl 250 unit/gram topical ointment topical apply to ulcers active ointment nickel in depth, edge to edge, 30 day supply Problems Problem Onset Date Status I70.235 - Atherosclerosis of [place] arteries of right leg wi th 04/26/2019 active ulceration of other part of foot L97.512 - Non-pressure chronic ulcer of other part of right foot 04/26/2019 active with fat layer exposed E08.621 - Diabetes mellitus due to underlying condition with foot 04/26/2019 active ulcer Encounters Date Location 04/26/2019 12:00:00 AM [facility] Encounter Diagnosis: I70.235 - Atherosclerosis of [place] arteries of right leg with ulceration of other part of foot Encounter Diagnosis: L97.512 - Non-pressure chronic ulcer of other part of right foot with fat layer exposed Encounter Diagnosis: E08.621 - Diabetes mellitus due to underlying condition with foot ulcer Vital signs Vital Value Unit Height 62 [in_i] Weight Measured 120 [lb_av] BP Systolic 148 mm[Hg] BP Diastolic 107 mm[Hg] BMI (Body Mass Index) 21.9 Unspecified Weight Measured 54.55 kg Body Temperature 98.1 [degF] Body Temperature 36.72 Carol O2 % BldC Oximetry Unspecified Unspecified Heart Rate 94 /min Respiratory Rate 18 /min Inhaled O2 concentration Unspecified Unspecified Immunizations Name Date Status Immunization information has not been included or does not e xist. Procedures Procedure Date Status Debridement; sub-Q tissue (includes epidermis and dermis, if 05/17/2019 Completed performed), first 20 sqcm or less Debridement (eg. high pressure waterjet w/wo suction, sharp 05/17/2019 Completed selective debridement with scissors, scalpel, & forceps)including topical application(s), total wound surfac e area; 1st 20 sqcm or less Social History Smoking Status: Current some day smoker Goals Description Goal: Necrotic/devitalized tissue will b e minimized in the wound bed Goal: Patient/caregiver will verbalize u nderstanding of the [facility] Program Goal: Patient will remain free from deve lopment of additional pressure ulcers Goal: Patient/caregiver will verbalize u nderstanding of pressure ulcer management Goal: Patient/caregiver will verbalize u nderstanding of skin care regimen Goal: Ulcer/skin breakdown will have a v olume reduction of 30% by week 4 Health Concerns Description Problem: Necrotic Tissue Problem: Orientation to the Wound Care P rogram Problem: Pressure Problem: Wound/Skin Impairment Functional Status Description Date Cognitive Status: Alert and Oriented x 4 (Active) 04/01 Ambulatory Status - Wheel Chair (Active) 05/17/2019 Assessment and Plan Description Radiology: X-ray, foot. Notes: r/o osteo . Other: FOOTCMRT. 05/17/2019. Plan of Treatment: Apply topical anesthe tic as ordered Plan of Treatment: Excisional debridemen t Plan of Treatment: Test ordered outside of clinic Plan of Treatment: Patient referred for pressure reduction/relief devices Plan of Treatment: Test ordered outside of clinic Plan of Treatment: Patient referred to h ome care Plan of Treatment: Referred to [facility] for dressing supplies Plan of Treatment: Skin care regimen ini tiated Plan of Treatment: Topical wound managem ent initiated Assessment: The patient is status post a mputation of the right great toe. The patient is status post CVA and has invol untary movements. She subsequently kicked and distorted the dressings in her right foot enough to create ulcerations. She has known occlusive disease but appears to h ave adequate circulation for [id number]/2019: Patient is tolerating dressings without any difficulties. Sutures are starting to lift from the right grea t toe.05/17/2019: Patient is complaining of pain to the right foot radiating to the leg. Patient has started using Santyl. Results Name Specimen Value Unit Ref. Range Date Result information has not been included or does not exist. Medical Equipment Implanted Area WAQAS Assigning Author albert Medical Equipment information has not been included or does not exist. Reason for Referral transition of care
--- NOTE | 2019-06-15 14:43 | P.DS ---
Providers Date of admission: 06/11/19 14:17 Expected date of discharge: 06/15/19 Attending physician: Sherlyn Chen Consults: 06/13/19 08:09 Consult Physician Routine Consulting Provider: Himanshu Cadena Consult Reason/Comments: s/p debridement, established patient Do you want consulting provider notified?: Yes 06/15/19 08:43 Consult Physician Routine Consulting Provider: Rufina Chapa Consult Reason/Comments: culture antibiotics for d/c Do you want consulting provider notified?: Yes Primary care physician: Sherlyn [facility] Course: Discharge diagnosis #1 severe hyperglycemia likely related to noncompliance with diet, patient consumes large amount of candies in a binge manner occasionally. She was counseled in length in that regard, she was started on IV insulin drip in the emergency room . Patient was started back on insulin drip post surgical intervention. At this time insulin drip will be DC'd. Patient will be started back on NovoLog sliding scale +6 units with meals and 12 units of Levemir. Sugars have improved. Blood sugar this a.m. 69 patient did receive 12 units of Levemir last night. Patient will be DC'd home on sliding scale +6 units with meals +12 units of Levemir at night. Patient educated to monitor sugar intake. #2 right foot wound infection with osteomyelitis, continue doxycycline by mouth. Status post debridement of right foot once per Dr. Egan. casn is currently postop day 2. Per nurse practitioner in the planning to switch boot tomorrow 06/15/[address] Chapa has been consulted to evaluate patient prior to discharge continue doxycycline #3 underlying history of hypertension #4 underlying history of hyperlipidemia #5 underlying history of congestive heart failure #6 underlying history of coronary artery disease with previous history of angioplasty and stent placement #7 underlying history of depression with anxiety disorder Hospital course Melva Park is a 58-year-old female with known history of insulin-dependent diabetes mellitus type 1 and peripheral vascular disease who was recently discharged from [facility] to the correction. Patient was therefore short time, she was found to have a glucose level of 665 she was having mental status changes she was sent back to [facility] emergency room, she was started on IV insulin drip and was admitted to medical floor. Patient has multiple medical problems including history of hypertension, history of hyperlipidemia, history of asthma, history of severe peripheral vascular disease with chronic wounds on the right leg requiring toe amputation, history of stroke, history of congestive heart failure, history of coronary artery disease with previous history of angioplasty and stent placement, history of depression with anxiety disorder. Patient was seen and examined on 06/10/2019, she is alert slightly confused in no apparent distress, she has been maintained on IV insulin drip and her glucose level is below 200 this time, there is no fever or chills no headache or dizziness no chest pain no shortness of breath no cough no nausea or vomiting no abdominal pain no diarrhea no burning with urination no frequency or urgency and no hematuria. On 06/11/2019 patient was seen and examined on the medical floor, she is alert slightly confused in no distress, glucose level is well-controlled at this time, she had an episode of hypoglycemia this morning, at this time will decrease Levemir dose to 20 units down from 22 units and monitor glucose level closely. On review of systems patient is complaining of pain in her lower extremity, otherwise she denies any complaints there is no fever or chills no headache or dizziness no chest pain no shortness of breath no cough no nausea or vomiting no abdominal pain no diarrhea and no urinary symptoms. On 06/12/2019 patient is alert and resting comfortably in bed. Plans for debrid ement today with Dr. Egan of foot wound. Long-acting insulin insulin currently on hold. Blood sugar this a.m. 176. This time patient denies chest pain or shortness of breath. Patient moving diarrhea. Denies any urinary burning or frequency On 06/13/2019 patient is status post debridement of right foot wounds with Dr. Egan. She is currently postop day 1. Blood sugars after surgical procedure greater than 400. Patient was started back on insulin drip. Current blood sugar 166. Will transition patient to NovoLog 6 units and 12 units of long- acting insulin will continue to monitor blood sugars closely due to known brittle diabetic. At this time patient denies chest pain or shortness of breath. Patient denies nausea vomiting or diarrhea. Patient denies any urinary burning or frequency. On 06/14/2019 patient is currently postop day 2 from debridement of right foot wounds. Discussed case with Angela nurse practitioner with Dr. Egan. Planning to switch boot tomorrow. Blood sugars remain fluctuating. Blood sugar last night 112 per nursing staff long-acting insulin was held blood sugar this a.m. 478. At this time patient denies chest pain or shortness of breath. Patient denies nausea vomiting or diarrhea. Patient denies any urinary burning or frequency On 06/15/2019 patient is currently postop day 3 from debridement of right foot wounds. Patient has been cleared for discharge from surgical services. Patient to return to wound care center next Wednesday for her weekly appointment contact cast has been applied. Blood sugars have improved. Insulin has been adjusted to 12 units of Levemir at night +6 units and sliding scale with meals. NovoLog sliding scale to be printed and given to survey instrument operator. Dr. Chapa to evaluate patient prior to discharge patient will be likely discharged on doxycycline. I performed an examination of the patient and discussed their management with the Nurse Practitioner. I have reviewed the Nurse Practitioner's notes and ag ree with the documented findings and plan of care Patient Condition at Discharge: Stable Plan - Discharge Summary Discharge Rx Participant: Yes New Discharge Prescriptions: New INSULIN ASPART (NovoLOG) [NovoLOG (formulary)] 0 unit SQ ACHS vial Continue Albuterol Inhaler [Ventolin Hfa Inhaler] 2 puff INHALATION RT-Q4H PRN PRN Reason: Shortness Of Breath Famotidine [Pepcid] 20 mg PO DAILY Valproic Acid [Depakene] 250 mg PO DAILY Ergocalciferol [Vitamin D2 (DRISDOL)] 50,000 unit PO SA HYDROcodone/APAP 10-325MG [[place] 10-325] 1 tab PO Q6H PRN PRN Reason: Pain DULoxetine HCL [Cymbalta] 60 mg PO DAILY ALPRAZolam [Xanax] 1 mg PO Q8H Ondansetron [Zofran] 4 mg PO DAILY PRN PRN Reason: Nausea QUEtiapine [SEROquel] 100 mg PO HS QUEtiapine FUMARATE [SEROquel] 25 mg PO BID Atorvastatin [Lipitor] 20 mg PO DAILY Vitamin B Complex With Vit C 1 tab PO DAILY INSULIN LISPRO (humaLOG) [humaLOG] 6 units SQ AC-TID Aspirin [Adult Low Dose Aspirin EC] 81 mg PO DAILY Ferrous Sulfate [Iron (65 MG Elemental)] 325 mg PO DAILY Doxycycline [Vibramycin] 100 mg PO BID 10 Days #20 capsule Changed Insulin Glargine [Lantus] 12 unit SQ HS #0 Discharge Medication List Albuterol Inhaler [Ventolin Hfa Inhaler] 2 puff INHALATION RT-Q4H PRN 07/19/15 [History] Famotidine [Pepcid] 20 mg PO DAILY 07/19/15 [History] Valproic Acid [Depakene] 250 mg PO DAILY 07/19/15 [History] Ergocalciferol [Vitamin D2 (DRISDOL)] 50,000 unit PO SA 03/05/16 [History] HYDROcodone/APAP 10-325MG [[place] 10-325] 1 tab PO Q6H PRN 10/03/16 [History] DULoxetine HCL [Cymbalta] 60 mg PO DAILY 02/16/17 [History] ALPRAZolam [Xanax] 1 mg PO Q8H 02/19/17 [History] Ondansetron [Zofran] 4 mg PO DAILY PRN 09/06/17 [History] Atorvastatin [Lipitor] 20 mg PO DAILY 12/28/18 [History] QUEtiapine FUMARATE [SEROquel] 25 mg PO BID 12/28/18 [History] QUEtiapine [SEROquel] 100 mg PO HS 12/28/18 [History] Vitamin B Complex With Vit C 1 tab PO DAILY 06/01/19 [History] Aspirin [Adult Low Dose Aspirin EC] 81 mg PO DAILY 06/09/19 [History] Ferrous Sulfate [Iron (65 MG Elemental)] 325 mg PO DAILY 06/09/19 [History] INSULIN LISPRO (humaLOG) [humaLOG] 6 units SQ AC-TID 06/09/19 [History] Doxycycline [Vibramycin] 100 mg PO BID 10 Days #20 capsule 06/15/19 [Rx] INSULIN ASPART (NovoLOG) [NovoLOG (formulary)] 0 unit SQ ACHS vial 06/15/19 [Rx] Insulin Glargine [Lantus] 12 unit SQ HS #0 06/15/19 [Rx] Follow up Appointment(s)/Referral(s): [facility] [NON-STAFF] - Wound Healing,Center [NON-STAFF] - 06/21/19 2:00 pm Sherlyn Chen MD [Primary Care Provider] - 1-2 days Patient Instructions/Handouts: Diabetic Ketoacidosis (DC) Activity/Diet/Wound Care/Special Instructions: Activity as tolerated Diet consistent carb Insulin has been adjusted to long-acting decreasing down to 12 units at night plus sliding scale and 6 units of NovoLog with meals. Nursing staff to provide sliding-scale to survey instrument operator Discharge Disposition: HOME WITH HOME HEALTH SERVICES
[2019-06-15 17:18] LABS: Glucose,Whole Blood 244 mg/dL (75-99)
[2019-06-15] MEDS: FERROUS SULFATE 325 MG TAB PO SCH (17:18)
[2019-06-15] MEDS: DAPTOmycin 350 MG in SODIUM CHLORIDE 0.9% 50 ML IVPB SCH (18:38)
--- NOTE | 2019-06-15 18:56 | CONS ---
CONSULTATION DATE OF SERVICE: 06/15/2019 REASON FOR CONSULTATION: Right diabetic foot infection with osteomyelitis and discharge antibiotic recommendations. HISTORY OF PRESENT ILLNESS: The patient is a 58-year-old female who was recently admitted to this facility. She had a right diabetic foot infection with a wound both on the right median and lateral side with evidence of osteomyelitis at the base of the fifth toe. Cultures were positive for Staph epi. The patient was evaluated on her last visit by Vascular Surgery and they recommended transmetatarsal amputation. The patient was discharged home on oral doxycycline. Apparently the patient was readmitted the very next day. Subsequently the patient has been evaluated by Vascular Surgery and did have debridement of the right foot wound with excision including bone, tendon and soft tissue. The patient's OR cultures are now positive for Staph epidermidis. The patient has been maintained on oral doxycycline. I was asked to see the patient today prior to discharge for discharge antibiotic recommendations. The patient currently denies having any chest pain or shortness of breath or cough. No nausea, no vomiting. No abdominal pain or pain to the right foot, which is currently covered with a total contact cast that was applied yesterday. REVIEW OF SYSTEMS: Positive points have been mentioned in HPI. Rest of the systems are negative. PAST MEDICAL HISTORY: Her past medical history is significant for diabetes mellitus, CVA, TIA, COPD, coronary artery disease, asthma, [place], hypertension, hyperlipidemia, right diabetic foot infection, previous history of MRSA. PAST SURGICAL HISTORY: Appendectomy, , cholecystectomy, heart catheterization with stent, hysterectomy. SOCIAL HISTORY: Remote history of smoking. Did admit to marijuana use. No drinking. FAMILY HISTORY: Father with history of diabetes and coronary artery disease. Mother with history of COPD. ALLERGIES: CEPHALEXIN, PENICILLIN, PHENOBARBITAL, AMLODIPINE. MEDICATIONS: Medications currently include [place], Ventolin, Xanax, aspirin, Cymbalta, Pepcid, iron sulfate, heparin, NovoLog, Levemir, Narcan, Zofran, Seroquel and Depakote. PHYSICAL EXAMINATION: His blood pressure is 150/60 with a pulse of 90, temperature 98.3. She is 99% on room air. General description is a middle-aged female lying in bed in no distress. No tachypnea or accessory muscle of respiration use. HEENT examination shows pallor. No scleral icterus. Oral mucosa membrane is dry. No pharyngeal erythema or thrush. NECK: Trachea is central. No thyromegaly. LUNGS: Unlabored breathing. Clear to auscultation anteriorly. HEART: S1, S2. Regular rate and rhythm. ABDOMEN: Soft. No tenderness. No guarding or rigidity. EXTREMITIES: Right foot is currently in a total contact cast. Neurologically, patient is awake, alert, oriented x3. Mood and affect normal. LABS: Hemoglobin 8.4, white count 4.6, BUN of 19, creatinine 0.94. Electrolytes and liver enzymes are normal. Wound culture with Staph epidermidis with vancomycin SHYANNE of 2. DIAGNOSTIC IMPRESSION AND PLAN: 1. Patient with right diabetic foot infection with underlying osteomyelitis at the base of the fifth toe. Patient is status post debridement, as this patient did undergo transmetatarsal amputation as was previously suggested and with concern for underlying osteomyelitis. The patient will need to be on IV antibiotic therapy in order to completely heal this osteomyelitis. 2. Patient with multiple ANTIBIOTIC ALLERGIES. That will limit the number of antibiotics safe to use. PLAN: 1. Discontinue doxycycline. 2. Will start the patient on daptomycin 6 mg/kg as the Staph epi SHYANNE to vancomycin has been 2 and with concern for possible failure of treatment. 3. Continue local wound care per Vascular Surgery. 4. She will get a PICC line. Once the outpatient IV antibiotic are arranged, she will go home from ID standpoint. This has been discussed in detail with the nurse practitioner for the admitting team. MMODL / IJN: [id number] /
[2019-06-15 20:27] LABS: Glucose,Whole Blood 77 mg/dL (75-99)
[2019-06-15] MEDS: INSULIN DETEMIR (LEVEMIR) 100 UNIT/ML SYR SQ SCH (21:29)
[2019-06-15] MEDS: QUEtiapine 100 MG TAB PO SCH (21:34)
[2019-06-16] MEDS: ALPRAZolam 1 MG TAB PO SCH ×3 (05:11→21:58)
[2019-06-16 05:40] LABS: Glucose,Whole Blood 435 mg/dL (75-99)
[2019-06-16 06:03] LABS: Glucose,Whole Blood 426 mg/dL (75-99)
[2019-06-16] MEDS ORDERED: INSULIN ASPART (NovoLOG) 100 UNIT/ML VIAL SQ ONE (06:03)
[2019-06-16 06:56] LABS: Glucose,Whole Blood 398 mg/dL (75-99)
[2019-06-16 07:10] LABS: Basophils % (A) 1 %; Eosinophils # (A) 0.1 k/uL (0-0.7); Eosinophils % (A) 2 %; HCT 26.9 % (34.0-46.0); HGB 8.6 gm/dL (11.4-16.0); Hypochromasia Moderate; Lymphocytes # (A) 1.3 k/uL (1.0-4.8); Lymphocytes % (A) 41 %; MCH 31.1 pg (25.0-35.0); MCHC 31.9 g/dL (31.0-37.0); MCV 97.4 fL (80.0-100.0); Mean Platelet Volume 8.9; Monocytes # (A) 0.2 k/uL (0-1.0); Monocytes % (A) 5 %; Neutrophils # (A) 1.6 k/uL (1.3-7.7); Neutrophils % (A) 50 %; Platelet Count 191 k/uL (150-450); RBC 2.76 m/uL (3.80-5.40); WBC 3.2 k/uL (3.8-10.6)
[2019-06-16 07:18] LABS: Glucose,Whole Blood 390 mg/dL (75-99)
[2019-06-16] MEDS: INSULIN ASPART (NovoLOG) 100 UNIT/ML VIAL SQ SCH ×7 (07:39→21:58)
[2019-06-16 07:47] LABS: Glucose,Whole Blood 332 mg/dL (75-99)
[2019-06-16] MEDS: HEPARIN SODIUM,PORCINE 5,000 UNIT/ML 1 ML VIAL SQ SCH ×2 (08:51→21:58)
[2019-06-16] MEDS: QUEtiapine 25 MG TAB PO SCH ×2 (09:38→21:58)
[2019-06-16] MEDS: DULoxetine HCL 60 MG CAPSULE.DR PO SCH (09:38)
[2019-06-16] MEDS: FAMOTIDINE 20 MG TAB PO SCH (09:38)
[2019-06-16] MEDS: VALPROIC ACID ORAL SOLN 250 MG/5 ML CUP PO SCH (09:39)
[2019-06-16] MEDS ORDERED: LIDOCAINE 1% INJ 10MG/ML (20 ML MDV) ONE (11:06)
[2019-06-16] MEDS ORDERED: LIDOCAINE 1% INJ 10MG/ML (20 ML MDV) SQ ONE (11:27)
[2019-06-16] MEDS: FERROUS SULFATE 325 MG TAB PO SCH (12:20)
--- NOTE | 2019-06-16 12:23 | IR ---
PICC LINE PLACEMENT: HISTORY: Infection requiring long-term antibiotic therapy PROCEDURE: Ultrasound and fluoroscopic guidance of PICC line placement. COMPLICATIONS: None ANESTHESIA: 1. 1% Lidocaine locally. FINDINGS/TECHNIQUE: The procedure was explained to the patient. The risks, complications, benefits and alternatives were discussed and any questions were answered. Informed consent was obtained. The patient was placed supine on the fluoroscopic table and prepped and draped in the usual sterile [facility] ion. Utilizing a 21 gauge needle and sonographic and fluoroscopic guidance, access in the vein was achieved and there is placement of a 0.018 guidewire. The vein is patent. A 4-F sheath was placed o arturo the guidewire. The guidewire and dilator were removed and a 4-F. PICC line was placed through th e sheath with the tip at the level of the SVC. The sheath was removed, the catheter was flushed and sutured into position. The patient was stable throughout the procedure and remained stable upon disc harge from the Department of Radiology. The vein puncture was patent under ultrasound. A aslcedo scale image was obtained to document patency of the vein punctured. All elements of the maximal barrier technique were utilized. FLUOROSCOPY TIME: 0.2 minutes and one image submitted IMPRESSION: Successful PICC line placement under ultrasound and fluoroscopic guidance.
[2019-06-16 12:29] LABS: Glucose,Whole Blood 42 mg/dL (75-99)
[2019-06-16 12:49] LABS: Glucose,Whole Blood 77 mg/dL (75-99)
--- NOTE | 2019-06-16 13:43 | P.DS ---
Providers Date of admission: 06/11/19 14:17 Expected date of discharge: 06/16/19 Attending physician: Sherlyn Chen Consults: 06/13/19 08:09 Consult Physician Routine Consulting Provider: Himanshu Cadena Consult Reason/Comments: s/p debridement, established patient Do you want consulting provider notified?: Yes 06/15/19 08:43 Consult Physician Routine Consulting Provider: Rufina Chapa Consult Reason/Comments: culture antibiotics for d/c Do you want consulting provider notified?: Yes Primary care physician: Sherlynpaco Chen [facility] Course: discharge diagnosis #1 severe hyperglycemia likely related to noncompliance with diet, patient consumes large amount of candies in a binge manner occasionally. She was counseled in length in that regard, she was started on IV insulin drip in the emergency room . Patient was started back on insulin drip post surgical intervention. At this time insulin drip will be DC'd. Patient will be started back on NovoLog sliding scale +6 units with meals and 12 units of Levemir. Sugars have improved. Blood sugar this a.m. 69 patient did receive 12 units of Levemir last night. Patient will be DC'd home on sliding scale +6 units with meals +12 units of Levemir at night. Patient educated to monitor sugar intake. Patient's blood sugar still fluctuating patient is known brittle diabetic will be DC'd on 12 units a Levemir and sliding scale insulin only #2 right foot wound infection with osteomyelitis, continue doxycycline by mouth. Status post debridement of right foot once per Dr. Egan. casn is currently postop day 2. Per nurse practitioner in the planning to switch boot tomorrow 06/15/2019 prior to discharge. Discussed case with Dr. Chapa. Patient did have PICC line placement and will be DC'd on daptomycin IV antibiotics per infectious disease. Patient is planning to go home with home healthcare. Patient has been cleared for discharge from infectious disease standpoint #3 underlying history of hypertension #4 underlying history of hyperlipidemia #5 underlying history of congestive heart failure #6 underlying history of coronary artery disease with previous history of angio plasty and stent placement Hospital course Melva Park is a 58-year-old female with known history of insulin-dependent diabetes mellitus type 1 and peripheral vascular disease who was recently discharged from [facility] to the long-term. Patient was therefore short time, she was found to have a glucose level of 665 she was having mental status changes she was sent back to [facility] emergency room, she was started on IV insulin drip and was admitted to medical floor. Patient has multiple medical problems including history of hypertension, history of hyperlipidemia, history of asthma, history of severe peripheral vascular disease with chronic wounds on the right leg requiring toe amputation, history of stroke, history of congestive heart failure, history of coronary artery disease with previous history of angioplasty and stent placement, history of depression with anxiety disorder. Patient was seen and examined on 06/10/2019, she is alert slightly confused in no apparent distress, she has been maintained on IV insulin drip and her glucose level is below 200 this time, there is no fever or chills no headache or dizziness no chest pain no shortness of breath no cough no nausea or vomiting no abdominal pain no diarrhea no burning with urination no frequency or urgency and no hematuria. On 06/11/2019 patient was seen and examined on the medical floor, she is alert slightly confused in no distress, glucose level is well-controlled at this time, she had an episode of hypoglycemia this morning, at this time will decrease Levemir dose to 20 units down from 22 units and monitor glucose level closely. On review of systems patient is complaining of pain in her lower extremity, otherwise she denies any complaints there is no fever or chills no headache or dizziness no chest pain no shortness of breath no cough no nausea or vomiting no abdominal pain no diarrhea and no urinary symptoms. On 06/12/2019 patient is alert and resting comfortably in bed. Plans for debridement today with Dr. Egan of foot wound. Long-acting insulin insulin currently on hold. Blood sugar this a.m. 176. This time patient denies chest pain or shortness of breath. Patient moving diarrhea. Denies any urinary burning or frequency On 06/13/2019 patient is status post debridement of right foot wounds with Dr. Egan. She is currently postop day 1. Blood sugars after surgical procedure greater than 400. Patient was started back on insulin drip. Current blood sugar 166. Will transition patient to NovoLog 6 units and 12 units of long- acting insulin will continue to monitor blood sugars closely due to known brittle diabetic. At this time patient denies chest pain or shortness of breath. Patient denies nausea vomiting or diarrhea. Patient denies any urinary burning or frequency. On 06/14/2019 patient is currently postop day 2 from debridement of right foot wounds. Discussed case with Angela nurse practitioner with Dr. Egan. Planning to switch boot tomorrow. Blood sugars remain fluctuating. Blood sugar last night 112 per nursing staff long-acting insulin was held blood sugar this a.m. 478. At this time patient denies chest pain or shortness of breath. Patient denies nausea vomiting or diarrhea. Patient denies any urinary burning or frequency On 06/15/2019 patient is currently postop day 3 from debridement of right foot wounds. Patient has been cleared for discharge from surgical services. Patient to return to wound care center next Wednesday for her weekly appointment contact cast has been applied. Blood sugars have improved. Insulin has been adjusted to 12 units of Levemir at night +6 units and sliding scale with meals. NovoLog sliding scale to be printed and given to axle turner. Dr. Chapa to evaluate patient prior to discharge patient will be likely discharged on doxycycline. On 06/16/2019 patient is alert and oriented 3. Patient did have PICC line placement. Patient will be DC'd on daptomycin per infectious disease recommendation. Antibiotics have been ordered per ID. Insulin has been adjusted to Levemir 12 units at night with sliding scale. Patient to follow-up with PCP for further management. Patient will be discharged home with home healthcare PICC line has been placed. Patient denies chest pain or shortness breath. Patient denies nausea vomiting or diarrhea. Patient denies any urinary burning or frequency I performed an examination of the patient and discussed their management with the Nurse Practitioner. I have reviewed the Nurse Practitioner's notes and agree with the documented findings and plan of care Patient Condition at Discharge: Stable Plan - Discharge Summary Discharge Rx Participant: Yes New Discharge Prescriptions: New INSULIN ASPART (NovoLOG) [NovoLOG (formulary)] 0 unit SQ ACHS vial DAPTOmycin [Daptomycin] 350 mg IV DAILY #40 vial Continue Albuterol Inhaler [Ventolin Hfa Inhaler] 2 puff INHALATION RT-Q4H PRN PRN Reason: Shortness Of Breath Famotidine [Pepcid] 20 mg PO DAILY Valproic Acid [Depakene] 250 mg PO DAILY Ergocalciferol [Vitamin D2 (DRISDOL)] 50,000 unit PO SA HYDROcodone/APAP 10-325MG [[place] 10-325] 1 tab PO Q6H PRN PRN Reason: Pain DULoxetine HCL [Cymbalta] 60 mg PO DAILY ALPRAZolam [Xanax] 1 mg PO Q8H Ondansetron [Zofran] 4 mg PO DAILY PRN PRN Reason: Nausea QUEtiapine [SEROquel] 100 mg PO HS QUEtiapine FUMARATE [SEROquel] 25 mg PO BID Atorvastatin [Lipitor] 20 mg PO DAILY Vitamin B Complex With Vit C 1 tab PO DAILY Aspirin [Adult Low Dose Aspirin EC] 81 mg PO DAILY Ferrous Sulfate [Iron (65 MG Elemental)] 325 mg PO DAILY Changed Insulin Glargine [Lantus] 12 unit SQ HS #0 Discontinued Doxycycline [Vibramycin] 100 mg PO BID 7 Days #14 capsule INSULIN LISPRO (humaLOG) [humaLOG] 6 units SQ AC-TID Discharge Medication List Albuterol Inhaler [Ventolin Hfa Inhaler] 2 puff INHALATION RT-Q4H PRN 07/19/15 [History] Famotidine [Pepcid] 20 mg PO DAILY 07/19/15 [History] Valproic Acid [Depakene] 250 mg PO DAILY 07/19/15 [History] Ergocalciferol [Vitamin D2 (DRISDOL)] 50,000 unit PO SA 03/05/16 [History] HYDROcodone/APAP 10-325MG [[place] 10-325] 1 tab PO Q6H PRN 10/03/16 [History] DULoxetine HCL [Cymbalta] 60 mg PO DAILY 02/16/17 [History] ALPRAZolam [Xanax] 1 mg PO Q8H 02/19/17 [History] Ondansetron [Zofran] 4 mg PO DAILY PRN 09/06/17 [History] Atorvastatin [Lipitor] 20 mg PO DAILY 12/28/18 [History] QUEtiapine FUMARATE [SEROquel] 25 mg PO BID 12/28/18 [History] QUEtiapine [SEROquel] 100 mg PO HS 12/28/18 [History] Vitamin B Complex With Vit C 1 tab PO DAILY 06/01/19 [History] Aspirin [Adult Low Dose Aspirin EC] 81 mg PO DAILY 06/09/19 [History] Ferrous Sulfate [Iron (65 MG Elemental)] 325 mg PO DAILY 06/09/19 [History] INSULIN ASPART (NovoLOG) [NovoLOG (formulary)] 0 unit SQ ACHS vial 06/15/19 [Rx] Insulin Glargine [Lantus] 12 unit SQ HS #0 06/15/19 [Rx] DAPTOmycin [Daptomycin] 350 mg IV DAILY #40 vial 06/16/19 [Rx] Follow up Appointment(s)/Referral(s): [facility], [NON-STAFF] - Wound Healing,[place] [NON-STAFF] - 06/21/19 2:00 pm Sherlyn Chen MD [Primary Care Provider] - 1-2 days Rufina Chapa MD [STAFF PHYSICIAN] - 1 Week Ambulatory/Diagnostic Orders: Basic Metabolic Panel [LAB.AMB] Location: None Selected C Reactive Protein [LAB.AMB] Location: None Selected Complete Blood Count w/diff [LAB.AMB] Location: None Selected Erythrocyte Sedimentation Rate [LAB.AMB] Location: None Selected Patient Instructions/Handouts: Diabetic Ketoacidosis (DC) Activity/Diet/Wound Care/Special Instructions: Activity as tolerated Diet consistent carb Insulin has been adjusted to long-acting decreasing down to 12 units at night plus sliding scale and 6 units of NovoLog with meals. Nursing staff to provide sliding-scale to axle turner Discharge Disposition: HOME WITH HOME HEALTH SERVICES
[2019-06-16] MEDS: ASPIRIN 81 MG PO SCH (14:59)
[2019-06-16] MEDS: SODIUM CHLORIDE 0.9% 1,000 ML IV SCH (15:00)
--- NOTE | 2019-06-16 15:41 | PN ---
PROGRESS NOTE DATE OF SERVICE: 06/16/2019. REASON FOR FOLLOWUP: Right diabetic foot ulcer with osteomyelitis. INTERVAL HISTORY: The patient is currently afebrile. The patient is breathing comfortably. The patient denies having any chest pain or shortness of breath or cough. No nausea, vomiting, or any worsening pain to the right foot. PHYSICAL EXAMINATION: Blood pressure 132/78 with a pulse of 91, temperature 98. She is 97% on room air. General description is a middle-aged female lying in bed in no distress. RESPIRATORY SYSTEM: Unlabored breathing. Clear to auscultation anteriorly. HEART: S1, S2. Regular rate and rhythm. ABDOMEN: Soft. No tenderness. Right foot is currently covered with a total contact cast. LABS: Wound culture has been positive for Staph epi with vancomycin SHYANNE of 2. DIAGNOSTIC IMPRESSION AND PLAN: Patient with a right diabetic foot wound with osteomyelitis at the base of the fifth toe in this patient who is status post surgical debridement. Cultures have been Staphylococcus epidermidis. These have been tissue cultures with a vancomycin SHYANNE of 2 and concern for vancomycin failure of treatment. Recommending daptomycin 6 mg/kg for a total of 6 weeks. Current dose is 350 mg daily with weekly monitoring of CBC, BMP, sedimentation rate and CPK. Once antibiotic is arranged, she will be able to go home from ID standpoint. Discussed with the nurse case manager as well as the nurse practitioner for the admitting team. MAHAMED / CHRISTOFER: [id number] /
[2019-06-16] MEDS: DAPTOmycin 350 MG in SODIUM CHLORIDE 0.9% 50 ML IVPB SCH (16:48)
[2019-06-16 17:08] LABS: Glucose,Whole Blood 281 mg/dL (75-99)
[2019-06-16] MEDS: INSULIN DETEMIR (LEVEMIR) 100 UNIT/ML SYR SQ SCH (21:55)
[2019-06-16] MEDS: QUEtiapine 100 MG TAB PO SCH (21:58)
[2019-06-16 22:00] LABS: Glucose,Whole Blood 130 mg/dL (75-99)
[2019-06-17] MEDS: ALPRAZolam 1 MG TAB PO SCH ×3 (05:26→21:52)
[2019-06-17 06:13] LABS: Glucose,Whole Blood 81 mg/dL (75-99)
[2019-06-17 07:00] LABS: Glucose,Whole Blood 75 mg/dL (75-99)
[2019-06-17 08:21] LABS: Albumin 2.5 g/dL (3.5-5.0); Calcium 8.5 mg/dL (8.4-10.2); Magnesium 2.1 mg/dL (1.6-2.3); Potassium 4.2 mmol/L (3.5-5.1); Total Bilirubin 0.3 mg/dL (0.2-1.3); Total Protein 5.5 g/dL (6.3-8.2)
[2019-06-17] MEDS: VALPROIC ACID ORAL SOLN 250 MG/5 ML CUP PO SCH (09:25)
[2019-06-17] MEDS: DULoxetine HCL 60 MG CAPSULE.DR PO SCH (09:25)
[2019-06-17] MEDS: ASPIRIN 81 MG PO SCH (09:25)
[2019-06-17] MEDS: FAMOTIDINE 20 MG TAB PO SCH (09:25)
[2019-06-17] MEDS: ERGOCALCIFEROL 50,000 UNIT CAP PO SCH (09:25)
[2019-06-17] MEDS: HEPARIN SODIUM,PORCINE 5,000 UNIT/ML 1 ML VIAL SQ SCH ×2 (09:26→21:53)
[2019-06-17] MEDS: QUEtiapine 25 MG TAB PO SCH ×2 (09:26→21:52)
[2019-06-17] MEDS: INSULIN ASPART (NovoLOG) 100 UNIT/ML VIAL SQ SCH ×5 (09:26→21:05)
--- NOTE | 2019-06-17 10:30 | P.PN ---
Subjective Progress Note Date: 06/17/19 Melva Park is a 58-year-old female with known history of insulin-dependent diabetes mellitus type 1 and peripheral vascular disease who was recently discharged from [facility] to the fpc. Patient was therefore short time, she was found to have a glucose level of 665 she was having mental status changes she was sent back to [facility] emergency room, she was started on IV insulin drip and was admitted to medical floor. Patient has multiple medical problems including history of hypertension, history of hyperlipidemia, history of asthma, history of severe peripheral vascular disease with chronic wounds on the right leg requiring toe amputation, history of stroke, history of congestive heart failure, history of coronary artery disease with previous history of angioplasty and stent placement, history of depression with anxiety disorder. Patient was seen and examined on 06/10/2019, she is alert slightly confused in no apparent distress, she has been maintained on IV insulin drip and her glucose level is below 200 this time, there is no fever or chills no headache or dizziness no chest pain no shortness of breath no cough no nausea or vomiting no abdominal pain no diarrhea no burning with urination no frequency or urgency and no hematuria. On 06/11/2019 patient was seen and examined on the medical floor, she is alert slightly confused in no distress, glucose level is well-controlled at this time, she had an episode of hypoglycemia this morning, at this time will decrease Levemir dose to 20 units down from 22 units and monitor glucose level closely. On review of systems patient is complaining of pain in her lower extremity, otherwise she denies any complaints there is no fever or chills no headache or dizziness no chest pain no shortness of breath no cough no nausea or vomiting no abdominal pain no diarrhea and no urinary symptoms. On 06/12/2019 patient is alert and resting comfortably in bed. Plans for debridement today with Dr. Egan of foot wound. Long-acting insulin insulin currently on hold. Blood sugar this a.m. 176. This time patient denies chest pain or shortness of breath. Patient moving diarrhea. Denies any urinary burning or frequency On 06/13/2019 patient is status post debridement of right foot wounds with Dr. Egan. She is currently postop day 1. Blood sugars after surgical procedure greater than 400. Patient was started back on insulin drip. Current blood sugar 166. Will transition patient to NovoLog 6 units and 12 units of long- acting insulin will continue to monitor blood sugars closely due to known brittle diabetic. At this time patient denies chest pain or shortness of breath. Patient denies nausea vomiting or diarrhea. Patient denies any urinary burning or frequency. On 06/14/2019 patient is currently postop day 2 from debridement of right foot wounds. Discussed case with Angela nurse practitioner with Dr. Egan. Planning to switch boot tomorrow. Blood sugars remain fluctuating. Blood sugar last night 112 per nursing staff long-acting insulin was held blood sugar this a.m. 478. At this time patient denies chest pain or shortness of breath. Patient denies nausea vomiting or diarrhea. Patient denies any urinary burning or frequency On 06/15/2019 patient is currently postop day 3 from debridement of right foot wounds. Patient has been cleared for discharge from surgical services. Patient to return to wound care center next Wednesday for her weekly appointment contact cast has been applied. Blood sugars have improved. Insulin has been adjusted to 12 units of Levemir at night +6 units and sliding scale with meals. NovoLog sliding scale to be printed and given to phlebotomist lab assistant. Dr. Chapa to evaluate patient prior to discharge patient will be likely discharged on doxycycline. On 06/16/2019 patient is alert and oriented 3. Patient did have PICC line placement. Patient will be DC'd on daptomycin per infectious disease recommendation. Antibiotics have been ordered per ID. Insulin has been adjusted to Levemir 12 units at night with sliding scale. Patient to follow-up with PCP for further management. Patient will be discharged home with home healthcare PICC line has been placed. Patient denies chest pain or shortness breath. Patient denies nausea vomiting or diarrhea. Patient denies any urinary burning or frequency On 06/17/2018 Patient is alert and oriented x 3. discharge on hold until insurance prior auth is complete for home IVAB. At this time patient denies chest pain or shortness of breath. denies nausea vomiting or diarrhea. denies any urinary burning or frequency Objective - Vital Signs Vital signs: Vital Signs Temp 97.3 F L 06/17/19 07:00 Pulse 68 06/17/19 07:00 Resp 15 06/17/19 07:00 BP 103/61 06/17/19 07:00 Pulse Ox 98 06/17/19 07:00 Intake & Output 06/16/19 06/17/19 06/17/19 18:59 06:59 18:59 Intake Total 400 450 Balance 400 450 Intake: IV 400 Sodium Chloride 0.9% 1, 400 000 ml @ 50 mls/hr IV . Q20H [facility] Rx#:[id number] Oral 450 Other: Voiding Method Diaper Diaper Incontinent Incontinent # Voids 1 - Exam In general patient is alert slightly confused in no apparent distress HEENT head normocephalic and atraumatic Neck is supple no JVD no goiter no lymphadenopathy Chest exam reveals a few scattered rhonchi no wheezing Cardiac exam reveals regular heart sounds no gallops no murmurs Abdomen is soft nontender no organomegaly with normal bowel sounds Extremity exam reveals no edema no cyanosis or clubbing, right foot with previous second toe amputation and open wounds. Right boot in place dressing is clean dry and intact Neurological examination reveals weakness related to previous stroke without any acute neurological changes - Labs CBC & Chem 7: 06/16/19 06:32 06/17/19 07:48 Labs: Abnormal Lab Results - Last 24 Hours (Table) 06/16/19 06/16/19 06/16/19 Range/Units 06:32 12:15 16:56 Chloride (98-107) mmol/L Carbon Dioxide (22-30) mmol/L BUN (7-17) mg/dL Glucose (74-99) mg/dL POC Glucose (mg/dL) 42 L 281 H (75-99) mg/dL C-Reactive Protein 23.7 H (<10.0) mg/L Total Protein (6.3-8.2) g/dL Albumin (3.5-5.0) g/dL 06/16/19 06/17/19 Range/Units 21:48 07:48 Chloride 109 H (98-107) mmol/L Carbon Dioxide 31 H (22-30) mmol/L BUN 19 H (7-17) mg/dL Glucose 72 L (74-99) mg/dL POC Glucose (mg/dL) 130 H (75-99) mg/dL C-Reactive Protein (<10.0) mg/L Total Protein 5.5 L (6.3-8.2) g/dL Albumin 2.5 L (3.5-5.0) g/dL Microbiology - Last 24 Hours (Table) 06/12/19 11:20 Anaerobic Culture - Final Foot - Right Assessment and Plan Assessment: #1 severe hyperglycemia likely related to noncompliance with diet, patient consumes large amount of candies in a binge manner occasionally. She was counseled in length in that regard, she was started on IV insulin drip in the emergency room . Patient was started back on insulin drip post surgical intervention. At this time insulin drip will be DC'd. Patient will be started back on NovoLog sliding scale +6 units with meals and 12 units of Levemir. Sugars have improved. Blood sugar this a.m. 69 patient did receive 12 units of Levemir last night. Patient will be DC'd home on sliding scale +6 units with meals +12 units of Levemir at night. Patient educated to monitor sugar intake. Patient's blood sugar still fluctuating patient is known brittle diabetic will be DC'd on 12 units a Levemir and sliding scale insulin only #2 right foot wound infection with osteomyelitis, continue doxycycline by mouth. Status post debridement of right foot once per Dr. Egan. casn is currently postop day 2. Per nurse practitioner in the planning to switch boot tomorrow 06/15/2019 prior to discharge. Discussed case with Dr. Chapa. Patient did have PICC line placement and will be DC'd on daptomycin IV antibiotics per infectious disease. Patient is planning to go home with home healthcare. Patient has been cleared for discharge from infectious disease standpoint #3 underlying history of hypertension #4 underlying history of hyperlipidemia #5 underlying history of congestive heart failure #6 underlying history of coronary artery disease with previous history of angioplasty and stent placement DVT prophylaxis heparin, GI prophylaxis pepcid. waiting on insurance prior auth for home antibiotics I performed an examination of the patient and discussed their management with [facility] Nurse Practitioner. I have reviewed the Nurse Practitioner's notes and agree with the documented findings and plan of care
[2019-06-17 11:39] LABS: Glucose,Whole Blood 131 mg/dL (75-99)
[2019-06-17] MEDS: FERROUS SULFATE 325 MG TAB PO SCH (12:09)
[2019-06-17] MEDS: SODIUM CHLORIDE 0.9% 1,000 ML IV SCH (16:27)
[2019-06-17] MEDS: DAPTOmycin 350 MG in SODIUM CHLORIDE 0.9% 50 ML IVPB SCH (16:27)
[2019-06-17 16:35] LABS: Glucose,Whole Blood 215 mg/dL (75-99)
[2019-06-17] MEDS: HYDROcodone/APAP 10-325MG 1 EACH TAB PO PRN (20:06)
[2019-06-17 20:24] LABS: Glucose,Whole Blood 128 mg/dL (75-99)
[2019-06-17] MEDS: INSULIN DETEMIR (LEVEMIR) 100 UNIT/ML SYR SQ SCH (21:53)
[2019-06-17] MEDS: QUEtiapine 100 MG TAB PO SCH (22:10)
--- NOTE | 2019-06-17 23:53 | PN ---
PROGRESS NOTE DATE OF SERVICE: 06/17/2019. REASON FOR FOLLOWUP: Right foot osteomyelitis. INTERVAL HISTORY: The patient is currently afebrile. The patient is breathing comfortably. Denies having any chest pain, shortness of breath or cough. No nausea, vomiting, abdominal pain, or any worsening pain in the right foot. PHYSICAL EXAMINATION: Blood pressure 149/71 with a pulse of 106, temperature of 98.2. She is 93% on room air. General description is a middle-aged female, lying in bed in no distress. Respiratory system: Unlabored breathing. Clear to auscultation anteriorly. Heart S1, S2. Regular rate and rhythm. ABDOMEN: Soft, no tenderness. LABS: BUN of 19, creatinine 0.96. DIAGNOSTIC IMPRESSION AND PLAN: Patient with right diabetic foot wound with underlying osteomyelitis in this patient with culture positive for Staph epi with vancomycin . The patient is currently covered with daptomycin. Waiting for insurance approval for discharge. Continue supportive care. MMODL / IJN: [id number] /
[2019-06-18 04:23] LABS: Glucose,Whole Blood 166 mg/dL (75-99)
[2019-06-18] MEDS: ALPRAZolam 1 MG TAB PO SCH ×3 (05:25→21:48)
[2019-06-18 07:07] LABS: Glucose,Whole Blood 117 mg/dL (75-99)
[2019-06-18 07:26] LABS: Basophils % (A) 1 %; Eosinophils # (A) 0.1 k/uL (0-0.7); Eosinophils % (A) 1 %; HCT 27.3 % (34.0-46.0); HGB 8.5 gm/dL (11.4-16.0); Hypochromasia Slight; Lymphocytes # (A) 1.3 k/uL (1.0-4.8); Lymphocytes % (A) 36 %; MCH 30.1 pg (25.0-35.0); MCHC 31.2 g/dL (31.0-37.0); MCV 96.3 fL (80.0-100.0); Monocytes # (A) 0.2 k/uL (0-1.0); Monocytes % (A) 6 %; Neutrophils # (A) 1.9 k/uL (1.3-7.7); Neutrophils % (A) 53 %; Platelet Count 188 k/uL (150-450); RBC 2.84 m/uL (3.80-5.40); RDW 15.4 % (11.5-15.5); WBC 3.5 k/uL (3.8-10.6)
[2019-06-18 07:37] LABS: Albumin 2.5 g/dL (3.5-5.0); Calcium 8.5 mg/dL (8.4-10.2); Potassium 4.2 mmol/L (3.5-5.1); Total Bilirubin 0.4 mg/dL (0.2-1.3); Total Protein 5.4 g/dL (6.3-8.2)
[2019-06-18] MEDS: INSULIN ASPART (NovoLOG) 100 UNIT/ML VIAL SQ SCH ×4 (09:40→21:47)
[2019-06-18] MEDS: HEPARIN SODIUM,PORCINE 5,000 UNIT/ML 1 ML VIAL SQ SCH ×2 (10:07→21:48)
[2019-06-18] MEDS: FAMOTIDINE 20 MG TAB PO SCH (10:07)
[2019-06-18] MEDS: ASPIRIN 81 MG PO SCH (10:07)
[2019-06-18] MEDS: DULoxetine HCL 60 MG CAPSULE.DR PO SCH (10:07)
[2019-06-18] MEDS: VALPROIC ACID ORAL SOLN 250 MG/5 ML CUP PO SCH (10:16)
[2019-06-18] MEDS: QUEtiapine 25 MG TAB PO SCH ×2 (10:52→21:47)
[2019-06-18 11:38] LABS: Glucose,Whole Blood 269 mg/dL (75-99)
[2019-06-18] MEDS: FERROUS SULFATE 325 MG TAB PO SCH (12:03)
[2019-06-18] MEDS: SODIUM CHLORIDE 0.9% 1,000 ML IV SCH (12:03)
--- NOTE | 2019-06-18 14:00 | P.PN ---
Subjective Progress Note Date: 06/18/19 Melva Park is a 58-year-old female with known history of insulin-dependent diabetes mellitus type 1 and peripheral vascular disease who was recently discharged from [facility] to the halfway. Patient was therefore short time, she was found to have a glucose level of 665 she was having mental status changes she was sent back to [facility] emergency room, she was started on IV insulin drip and was admitted to medical floor. Patient has multiple medical problems including history of hypertension, history of hyperlipidemia, history of asthma, history of severe peripheral vascular disease with chronic wounds on the right leg requiring toe amputation, history of stroke, history of congestive heart failure, history of coronary artery disease with previous history of angioplasty and stent placement, history of depression with anxiety disorder. Patient was seen and examined on 06/10/2019, she is alert slightly confused in no apparent distress, she has been maintained on IV insulin drip and her glucose level is below 200 this time, there is no fever or chills no headache or dizziness no chest pain no shortness of breath no cough no nausea or vomiting no abdominal pain no diarrhea no burning with urination no frequency or urgency and no hematuria. On 06/11/2019 patient was seen and examined on the medical floor, she is alert slightly confused in no distress, glucose level is well-controlled at this time, she had an episode of hypoglycemia this morning, at this time will decrease Levemir dose to 20 units down from 22 units and monitor glucose level closely. On review of systems patient is complaining of pain in her lower extremity, otherwise she denies any complaints there is no fever or chills no headache or dizziness no chest pain no shortness of breath no cough no nausea or vomiting no abdominal pain no diarrhea and no urinary symptoms. On 06/12/2019 patient is alert and resting comfortably in bed. Plans for debridement today with Dr. Egan of foot wound. Long-acting insulin insulin currently on hold. Blood sugar this a.m. 176. This time patient denies chest pain or shortness of breath. Patient moving diarrhea. Denies any urinary burning or frequency On 06/13/2019 patient is status post debridement of right foot wounds with Dr. Egan. She is currently postop day 1. Blood sugars after surgical procedure greater than 400. Patient was started back on insulin drip. Current blood sugar 166. Will transition patient to NovoLog 6 units and 12 units of long- acting insulin will continue to monitor blood sugars closely due to known brittle diabetic. At this time patient denies chest pain or shortness of breath. Patient denies nausea vomiting or diarrhea. Patient denies any urinary burning or frequency. On 06/14/2019 patient is currently postop day 2 from debridement of right foot wounds. Discussed case with Angela nurse practitioner with Dr. Egan. Planning to switch boot tomorrow. Blood sugars remain fluctuating. Blood sugar last night 112 per nursing staff long-acting insulin was held blood sugar this a.m. 478. At this time patient denies chest pain or shortness of breath. Patient denies nausea vomiting or diarrhea. Patient denies any urinary burning or frequency On 06/15/2019 patient is currently postop day 3 from debridement of right foot wounds. Patient has been cleared for discharge from surgical services. Patient to return to wound care center next Wednesday for her weekly appointment contact cast has been applied. Blood sugars have improved. Insulin has been adjusted to 12 units of Levemir at night +6 units and sliding scale with meals. NovoLog sliding scale to be printed and given to cellophane press operator. Dr. Chapa to evaluate patient prior to discharge patient will be likely discharged on doxycycline. On 06/16/2019 patient is alert and oriented 3. Patient did have PICC line placement. Patient will be DC'd on daptomycin per infectious disease recommendation. Antibiotics have been ordered per ID. Insulin has been adjusted to Levemir 12 units at night with sliding scale. Patient to follow-up with PCP for further management. Patient will be discharged home with home healthcare PICC line has been placed. Patient denies chest pain or shortness breath. Patient denies nausea vomiting or diarrhea. Patient denies any urinary burning or frequency On 06/17/2019 Patient is alert and oriented x 3. discharge on hold until insurance prior auth is complete for home IVAB. At this time patient denies chest pain or shortness of breath. denies nausea vomiting or diarrhea. denies any urinary burning or frequency On 06/18/2019 patient was seen and examined on the medical floor she is alert and oriented 3 in no apparent distress she denies any complaints at this time she is still awaiting prior authorization for IV antibiotic at home Objective - Vital Signs Vital signs: Vital Signs Temp 97.7 F 06/18/19 07:00 Pulse 83 06/18/19 07:00 Resp 15 06/18/19 07:00 BP 96/58 06/18/19 07:00 Pulse Ox 98 06/18/19 07:04 Intake & Output 06/17/19 06/18/19 06/18/19 18:59 06:59 18:59 Intake Total 350 1160 275 Balance 350 1160 275 Intake: Oral 350 1160 275 Other: Voiding Method Diaper Diaper Diaper Incontinent Incontinent Incontinent # Voids 1 1 - Exam In general patient is alert slightly confused in no apparent distress HEENT head normocephalic and atraumatic Neck is supple no JVD no goiter no lymphadenopathy Chest exam reveals a few scattered rhonchi no wheezing Cardiac exam reveals regular heart sounds no gallops no murmurs Abdomen is soft nontender no organomegaly with normal bowel sounds Extremity exam reveals no edema no cyanosis or clubbing, right foot with previous second toe amputation and open wounds. Right boot in place dressing is clean dry and intact Neurological examination reveals weakness related to previous stroke without any acute neurological changes - Labs CBC & Chem 7: 06/18/19 06:21 06/18/19 06:21 Labs: Abnormal Lab Results - Last 24 Hours (Table) 06/17/19 06/17/19 06/18/19 Range/Units 16:33 20:13 04:05 WBC (3.8-10.6) k/uL RBC (3.80-5.40) m/uL Hgb (11.4-16.0) gm/dL Hct (34.0-46.0) % Carbon Dioxide (22-30) mmol/L BUN (7-17) mg/dL Glucose (74-99) mg/dL POC Glucose (mg/dL) 215 H 128 H 166 H (75-99) mg/dL Total Protein (6.3-8.2) g/dL Albumin (3.5-5.0) g/dL 06/18/19 06/18/19 06/18/19 Range/Units 06:21 06:21 06:55 WBC 3.5 L (3.8-10.6) k/uL RBC 2.84 L (3.80-5.40) m/uL Hgb 8.5 L (11.4-16.0) gm/dL Hct 27.3 L (34.0-46.0) % Carbon Dioxide 31 H (22-30) mmol/L BUN 20 H (7-17) mg/dL Glucose 122 H (74-99) mg/dL POC Glucose (mg/dL) 117 H (75-99) mg/dL Total Protein 5.4 L (6.3-8.2) g/dL Albumin 2.5 L (3.5-5.0) g/dL 06/18/19 Range/Units 11:33 WBC (3.8-10.6) k/uL RBC (3.80-5.40) m/uL Hgb (11.4-16.0) gm/dL Hct (34.0-46.0) % Carbon Dioxide (22-30) mmol/L BUN (7-17) mg/dL Glucose (74-99) mg/dL POC Glucose (mg/dL) 269 H (75-99) mg/dL Total Protein (6.3-8.2) g/dL Albumin (3.5-5.0) g/dL Assessment and Plan Plan: #1 severe hyperglycemia likely related to noncompliance with diet, patient consumes large amount of candies in a binge manner occasionally. She was counseled in length in that regard, she was started on IV insulin drip in the emergency room . Patient was started back on insulin drip post surgical intervention. At this time insulin drip will be DC'd. Patient will be started back on NovoLog sliding scale +6 units with meals and 12 units of Levemir. Sugars have improved. Blood sugar this a.m. 69 patient did receive 12 units of Levemir last night. Patient will be DC'd home on sliding scale +6 units with meals +12 units of Levemir at night. Patient educated to monitor sugar intake. Patient's blood sugar still fluctuating patient is known brittle diabetic will be DC'd on 12 units a Levemir and sliding scale insulin only #2 right foot wound infection with osteomyelitis, continue doxycycline by mouth. Status post debridement of right foot once per Dr. Egan. theresa is currently postop day 2. Per nurse practitioner in the planning to switch boot tomorrow 06/15/2019 prior to discharge. Discussed case with Dr. Eduard. Patient did have PICC line placement and will be DC'd on daptomycin IV antibiotics per infectious disease. Patient is planning to go home with home healthcare. Patient has been cleared for discharge from infectious disease standpoint #3 underlying history of hypertension #4 underlying history of hyperlipidemia #5 underlying history of congestive heart failure #6 underlying history of coronary artery disease with previous history of angioplasty and stent placement DVT prophylaxis heparin, GI prophylaxis pepcid. waiting on insurance prior auth for home antibiotics
[2019-06-18 16:42] LABS: Glucose,Whole Blood 213 mg/dL (75-99)
[2019-06-18] MEDS: DAPTOmycin 350 MG in SODIUM CHLORIDE 0.9% 50 ML IVPB SCH (17:32)
[2019-06-18 21:47] LABS: Glucose,Whole Blood 477 mg/dL (75-99)
[2019-06-18] MEDS: INSULIN DETEMIR (LEVEMIR) 100 UNIT/ML SYR SQ SCH (21:47)
[2019-06-18] MEDS: QUEtiapine 100 MG TAB PO SCH (21:48)
[2019-06-18 22:41] LABS: Glucose,Whole Blood 470 mg/dL (75-99)
--- NOTE | 2019-06-18 22:52 | PN ---
PROGRESS NOTE DATE OF SERVICE: 06/18/2019. REASON FOR FOLLOWUP: Right diabetic foot wound with osteomyelitis. INTERVAL HISTORY: The patient is currently afebrile. Patient is breathing comfortably. Patient denies any chest pain. No cough. No further nausea, vomiting, abdominal pain. No pain to the right foot. PHYSICAL EXAMINATION: Blood pressure 107/61 with a pulse of 98 temperature 98.3. She is 97% on room air. General description is a middle-aged female lying in bed in no distress. Respiratory system: Unlabored breathing. Clear to auscultation anteriorly. Heart S1, S2. Regular rate and rhythm. Abdomen soft, no tenderness. Right foot is currently covered with cast. LABS: Hemoglobin 8.5, white count 3.4, BUN of 20, creatinine 0.89. DIAGNOSTIC IMPRESSION AND PLAN: Patient with right diabetic foot infection in this patient who did have osteomyelitis. The patient is status post debridement. Culture positive for Staph epi with vancomycin . Currently waiting for daptomycin. Arrangement for the outpatient and continue with supportive care. MMODL / IJN: [id number] /
[2019-06-19 00:08] LABS: Glucose,Whole Blood 270 mg/dL (75-99)
[2019-06-19] MEDS: SODIUM CHLORIDE 0.9% 1,000 ML IV SCH (02:08)
[2019-06-19] MEDS: ALPRAZolam 1 MG TAB PO SCH ×3 (05:33→21:23)
[2019-06-19 06:50] LABS: Glucose,Whole Blood 87 mg/dL (75-99)
[2019-06-19] MEDS: INSULIN ASPART (NovoLOG) 100 UNIT/ML VIAL SQ SCH ×4 (09:03→21:25)
[2019-06-19] MEDS: FAMOTIDINE 20 MG TAB PO SCH (09:05)
[2019-06-19] MEDS: HEPARIN SODIUM,PORCINE 5,000 UNIT/ML 1 ML VIAL SQ SCH ×2 (09:05→21:20)
[2019-06-19] MEDS: DULoxetine HCL 60 MG CAPSULE.DR PO SCH (09:05)
[2019-06-19] MEDS: ASPIRIN 81 MG PO SCH (09:05)
[2019-06-19] MEDS: VALPROIC ACID ORAL SOLN 250 MG/5 ML CUP PO SCH (09:06)
[2019-06-19] MEDS: QUEtiapine 25 MG TAB PO SCH ×2 (09:06→21:18)
[2019-06-19 09:16] LABS: Glucose,Whole Blood 38 mg/dL (75-99)
[2019-06-19 09:16] LABS: Glucose,Whole Blood 41 mg/dL (75-99)
[2019-06-19 09:16] LABS: Glucose,Whole Blood 419 mg/dL (75-99)
[2019-06-19 09:16] LABS: Glucose,Whole Blood 428 mg/dL (75-99)
[2019-06-19 09:30] LABS: Basophils % (A) 1 %; Eosinophils % (A) 1 %; HCT 26.5 % (34.0-46.0); HGB 8.3 gm/dL (11.4-16.0); Lymphocytes # (A) 1.5 k/uL (1.0-4.8); Lymphocytes % (A) 43 %; MCHC 31.5 g/dL (31.0-37.0); MCV 95.3 fL (80.0-100.0); Monocytes # (A) 0.3 k/uL (0-1.0); Monocytes % (A) 7 %; Neutrophils # (A) 1.6 k/uL (1.3-7.7); Neutrophils % (A) 45 %; Platelet Count 168 k/uL (150-450); RBC 2.78 m/uL (3.80-5.40); RDW 15.3 % (11.5-15.5); WBC 3.6 k/uL (3.8-10.6)
--- NOTE | 2019-06-19 09:38 | P.PN ---
Subjective Progress Note Date: 06/19/19 Melva Park is a 58-year-old female with known history of insulin-dependent diabetes mellitus type 1 and peripheral vascular disease who was recently discharged from [facility] to the [facility] Patient was therefore short time, she was found to have a glucose level of 665 she was having mental status changes she was sent back to [facility] emergency room, she was started on IV insulin drip and was admitted to medical floor. Patient has multiple medical problems including history of hypertension, history of hyperlipidemia, history of asthma, history of severe peripheral vascular disease with chronic wounds on the right leg requiring toe amputation, history of stroke, history of congestive heart failure, history of coronary artery disease with previous history of angioplasty and stent placement, history of depression with anxiety disorder. Patient was seen and examined on 06/10/2019, she is alert slightly confused in no apparent distress, she has been maintained on IV insulin drip and her glucose level is below 200 this time, there is no fever or chills no headache or dizziness no chest pain no shortness of breath no cough no nausea or vomiting no abdominal pain no diarrhea no burning with urination no frequency or urgency and no hematuria. On 06/11/2019 patient was seen and examined on the medical floor, she is alert slightly confused in no distress, glucose level is well-controlled at this time, she had an episode of hypoglycemia this morning, at this time will decrease Levemir dose to 20 units down from 22 units and monitor glucose level closely. On review of systems patient is complaining of pain in her lower extremity, otherwise she denies any complaints there is no fever or chills no headache or dizziness no chest pain no shortness of breath no cough no nausea or vomiting no abdominal pain no diarrhea and no urinary symptoms. On 06/12/2019 patient is alert and resting comfortably in bed. Plans for debridement today with Dr. Egan of foot wound. Long-acting insulin insulin currently on hold. Blood sugar this a.m. 176. This time patient denies chest pain or shortness of breath. Patient moving diarrhea. Denies any urinary burning or frequency On 06/13/2019 patient is status post debridement of right foot wounds with Dr. Egan. She is currently postop day 1. Blood sugars after surgical procedure greater than 400. Patient was started back on insulin drip. Current blood sugar 166. Will transition patient to NovoLog 6 units and 12 units of long- acting insulin will continue to monitor blood sugars closely due to known brittle diabetic. At this time patient denies chest pain or shortness of breath. Patient denies nausea vomiting or diarrhea. Patient denies any urinary burning or frequency. On 06/14/2019 patient is currently postop day 2 from debridement of right foot wounds. Discussed case with Angela nurse practitioner with Dr. Egan. Planning to switch boot tomorrow. Blood sugars remain fluctuating. Blood sugar last night 112 per nursing staff long-acting insulin was held blood sugar this a.m. 478. At this time patient denies chest pain or shortness of breath. Patient denies nausea vomiting or diarrhea. Patient denies any urinary burning or frequency On 06/15/2019 patient is currently postop day 3 from debridement of right foot wounds. Patient has been cleared for discharge from surgical services. Patient to return to wound care center next Wednesday for her weekly appointment contact cast has been applied. Blood sugars have improved. Insulin has been adjusted to 12 units of Levemir at night +6 units and sliding scale with meals. NovoLog sliding scale to be printed and given to speaker mounter. Dr. Chapa to evaluate patient prior to discharge patient will be likely discharged on doxycycline. On 06/16/2019 patient is alert and oriented 3. Patient did have PICC line placement. Patient will be DC'd on daptomycin per infectious disease recommendation. Antibiotics have been ordered per ID. Insulin has been adjusted to Levemir 12 units at night with sliding scale. Patient to follow-up with PCP for further management. Patient will be discharged home with home healthcare PICC line has been placed. Patient denies chest pain or shortness breath. Patient denies nausea vomiting or diarrhea. Patient denies any urinary burning or frequency On 06/17/2019 Patient is alert and oriented x 3. discharge on hold until insurance prior auth is complete for home IVAB. At this time patient denies chest pain or shortness of breath. denies nausea vomiting or diarrhea. denies any urinary burning or frequency On 06/18/2019 patient was seen and examined on the medical floor she is alert and oriented 3 in no apparent distress she denies any complaints at this time she is still awaiting prior authorization for IV antibiotic at home On 06/19/2019 patient is alert and oriented 3. Awaiting insurance prior off for home IV antibiotics. Patient remains on daptomycin. Patient denies chest pain or shortness of breath. She denies nausea vomiting diarrhea. Patient denies any urinary burning burning or frequency. Objective - Vital Signs Vital signs: Vital Signs Temp 98.5 F 06/19/19 07:00 Pulse 80 06/19/19 07:00 Resp 16 06/19/19 07:00 BP 90/52 06/19/19 02:05 Pulse Ox 95 06/19/19 07:00 Intake & Output 06/18/19 06/19/19 06/19/19 18:59 06:59 18:59 Intake Total 375 240 Output Total 800 Balance -425 240 Intake: Oral 375 240 Output: Urine 800 Other: Voiding Method Diaper Diaper Incontinent Incontinent # Voids 2 1 - Exam In general patient is alert slightly confused in no apparent distress HEENT head normocephalic and atraumatic Neck is supple no JVD no goiter no lymphadenopathy Chest exam reveals a few scattered rhonchi no wheezing Cardiac exam reveals regular heart sounds no gallops no murmurs Abdomen is soft nontender no organomegaly with normal bowel sounds Extremity exam reveals no edema no cyanosis or clubbing, right foot with previous second toe amputation and open wounds. Right boot in place dressing is clean dry and intact Neurological examination reveals weakness related to previous stroke without any acute neurological changes - Labs CBC & Chem 7: 06/18/19 06:21 06/18/19 06:21 Labs: Abnormal Lab Results - Last 24 Hours (Table) 06/16/19 06/16/19 06/18/19 Range/Units 11:56 11:58 11:33 POC Glucose (mg/dL) 38 L 41 L 269 H (75-99) mg/dL 06/18/19 06/18/19 06/18/19 Range/Units 16:28 21:15 21:19 POC Glucose (mg/dL) 213 H 419 H 428 H (75-99) mg/dL 06/18/19 06/18/19 06/18/19 Range/Units 21:36 22:29 23:58 POC Glucose (mg/dL) 477 H 470 H 270 H (75-99) mg/dL Assessment and Plan Assessment: #1 severe hyperglycemia likely related to noncompliance with diet, patient consumes large amount of candies in a binge manner occasionally. She was counseled in length in that regard, she was started on IV insulin drip in the emergency room . Patient was started back on insulin drip post surgical i ntervention. At this time insulin drip will be DC'd. Patient will be started back on NovoLog sliding scale +6 units with meals and 12 units of Levemir. Sugars have improved. Blood sugar this a.m. 69 patient did receive 12 units of Levemir last night. Patient will be DC'd home on sliding scale +6 units with meals +12 units of Levemir at night. Patient educated to monitor sugar intake. Patient's blood sugar still fluctuating patient is known brittle diabetic will be DC'd on 12 units a Levemir and sliding scale insulin only #2 right foot wound infection with osteomyelitis, continue doxycycline by mouth. Status post debridement of right foot once per Dr. Egan. casn is currently postop day 2. Per nurse practitioner in the planning to switch boot tomorrow 06/15/2019 prior to discharge. Discussed case with Dr. Chapa. Patient did have PICC line placement and will be DC'd on daptomycin IV antibiotics per infectious disease. Patient is planning to go home with home healthcare. Patient has been cleared for discharge from infectious disease standpoint #3 underlying history of hypertension #4 underlying history of hyperlipidemia #5 underlying history of congestive heart failure #6 underlying history of coronary artery disease with previous history of angioplasty and stent placement DVT prophylaxis heparin, GI prophylaxis pepcid. waiting on insurance prior auth for home antibiotics I performed an examination of the patient and discussed their management with the Nurse Practitioner. I have reviewed the Nurse Practitioner's notes and agree with the documented findings and plan of care
[2019-06-19 09:40] LABS: Albumin 2.4 g/dL (3.5-5.0); Calcium 8.4 mg/dL (8.4-10.2); Potassium 4.2 mmol/L (3.5-5.1); Total Bilirubin 0.3 mg/dL (0.2-1.3); Total Protein 5.2 g/dL (6.3-8.2)
[2019-06-19 11:32] LABS: Glucose,Whole Blood 173 mg/dL (75-99)
[2019-06-19] MEDS: FERROUS SULFATE 325 MG TAB PO SCH (12:20)
[2019-06-19 16:43] LABS: Glucose,Whole Blood 291 mg/dL (75-99)
[2019-06-19] MEDS: DAPTOmycin 350 MG in SODIUM CHLORIDE 0.9% 50 ML IVPB SCH (17:38)
--- NOTE | 2019-06-19 17:38 | PN ---
PROGRESS NOTE DATE OF SERVICE: 06/19/2019 REASON FOR FOLLOWUP: Right foot osteomyelitis. INTERVAL HISTORY: The patient is currently afebrile. The patient is breathing comfortably. The patient denies having any chest pain or cough. No nausea, vomiting. No abdominal pain. No diarrhea. No pain in the right foot area. PHYSICAL EXAMINATION: Blood pressure is 90/52 with a pulse of 80, temperature of 98.4. She is 95% on room air. General description is a middle-aged female lying in bed in no distress. RESPIRATORY SYSTEM: Unlabored breathing. Clear to auscultation anteriorly. HEART: S1, S2. Regular rate and rhythm. ABDOMEN: Soft. No tenderness. Right foot is currently covered with a cast. LABS: Hemoglobin is 8.3, white count of 3.3, BUN of 20, creatinine 1.02. DIAGNOSTIC IMPRESSION AND PLAN: Patient with right diabetic foot wound with underlying osteomyelitis at the base of the fifth toe, status post debridement. Culture has been positive for Staph epidermidis with vancomycin SHYANNE of 2. Currently on daptomycin. Waiting for insurance authorization before discharge. Monitor clinical course closely. MMODL / IJN: [id number] /
[2019-06-19 20:27] LABS: Glucose,Whole Blood 350 mg/dL (75-99)
[2019-06-19] MEDS: QUEtiapine 100 MG TAB PO SCH (21:23)
[2019-06-19 21:30] LABS: Glucose,Whole Blood 320 mg/dL (75-99)
[2019-06-19] MEDS: INSULIN DETEMIR (LEVEMIR) 100 UNIT/ML SYR SQ SCH (22:03)
[2019-06-20] MEDS: SODIUM CHLORIDE 0.9% 1,000 ML IV SCH (05:09)
[2019-06-20] MEDS: ALPRAZolam 1 MG TAB PO SCH ×2 (05:29→15:20)
[2019-06-20 06:49] LABS: Glucose,Whole Blood 97 mg/dL (75-99)
[2019-06-20] MEDS: INSULIN ASPART (NovoLOG) 100 UNIT/ML VIAL SQ SCH ×3 (07:08→16:49)
[2019-06-20 07:13] LABS: Basophils % (A) 0 %; Eosinophils % (A) 2 %; HCT 26.8 % (34.0-46.0); HGB 8.4 gm/dL (11.4-16.0); Hypochromasia Slight; Lymphocytes # (A) 1.1 k/uL (1.0-4.8); Lymphocytes % (A) 40 %; MCH 30.1 pg (25.0-35.0); MCHC 31.5 g/dL (31.0-37.0); MCV 95.5 fL (80.0-100.0); Mean Platelet Volume 8.8; Monocytes # (A) 0.2 k/uL (0-1.0); Monocytes % (A) 7 %; Neutrophils # (A) 1.4 k/uL (1.3-7.7); Neutrophils % (A) 50 %; Platelet Count 176 k/uL (150-450); WBC 2.9 k/uL (3.8-10.6)
[2019-06-20 07:29] LABS: Albumin 2.5 g/dL (3.5-5.0); Calcium 8.5 mg/dL (8.4-10.2); Potassium 4.2 mmol/L (3.5-5.1); Total Bilirubin 0.3 mg/dL (0.2-1.3); Total Protein 5.4 g/dL (6.3-8.2)
[2019-06-20] MEDS: FAMOTIDINE 20 MG TAB PO SCH (08:24)
[2019-06-20] MEDS: DULoxetine HCL 60 MG CAPSULE.DR PO SCH (08:24)
[2019-06-20] MEDS: HEPARIN SODIUM,PORCINE 5,000 UNIT/ML 1 ML VIAL SQ SCH (08:25)
[2019-06-20] MEDS: ASPIRIN 81 MG PO SCH (08:25)
[2019-06-20] MEDS: FERROUS SULFATE 325 MG TAB PO SCH (08:25)
[2019-06-20] MEDS: QUEtiapine 25 MG TAB PO SCH (08:25)
[2019-06-20] MEDS: VALPROIC ACID ORAL SOLN 250 MG/5 ML CUP PO SCH (08:25)
--- NOTE | 2019-06-20 10:53 | P.DS ---
Providers Date of admission: 06/11/19 14:17 Expected date of discharge: 06/20/19 Attending physician: Sherlyn Chen Consults: 06/13/19 08:09 Consult Physician Routine Consulting Provider: Himanshu Cadena Consult Reason/Comments: s/p debridement, established patient Do you want consulting provider notified?: Yes 06/15/19 08:43 Consult Physician Routine Consulting Provider: Rufina Chapa Consult Reason/Comments: culture antibiotics for d/c Do you want consulting provider notified?: Yes Primary care physician: Sherlynpaco Chen [facility] Course: Discharge diagnosis #1 severe hyperglycemia likely related to noncompliance with diet, patient consumes large amount of candies in a binge manner occasionally. She was counseled in length in that regard, she was started on IV insulin drip in the emergency room . Patient was started back on insulin drip post surgical intervention. At this time insulin drip will be DC'd. Patient will be started back on NovoLog sliding scale +6 units with meals and 12 units of Levemir. Sugars have improved. Blood sugar this a.m. 69 patient did receive 12 units of Levemir last night. Patient will be DC'd home on sliding scale +6 units with meals +12 units of Levemir at night. Patient educated to monitor sugar intake. Patient's blood sugar still fluctuating patient is known brittle diabetic will be DC'd on 12 units a Levemir and sliding scale insulin only #2 right foot wound infection with osteomyelitis, continue doxycycline by mouth. Status post debridement of right foot once per Dr. Egan. casn is currently postop day 2. Per nurse practitioner in the planning to switch boot tomorrow 06/15/2019 prior to discharge. Discussed case with Dr. Chapa. Patient did have PICC line placement and will be DC'd on daptomycin IV antibiotics per infectious disease. Patient is planning to go home with home healthcare. Patient has been cleared for discharge from infectious disease standpoint #3 underlying history of hypertension #4 underlying history of hyperlipidemia #5 underlying history of congestive heart failure #6 underlying history of coronary artery disease with previous history of angio plasty and stent placement Hospital course Melva Park is a 58-year-old female with known history of insulin-dependent diabetes mellitus type 1 and peripheral vascular disease who was recently discharged from [facility] to the custodial. Patient was therefore short time, she was found to have a glucose level of 665 she was having mental status changes she was sent back to [facility] emergency room, she was started on IV insulin drip and was admitted to medical floor. Patient has multiple medical problems including history of hypertension, history of hyperlipidemia, history of asthma, history of severe peripheral vascular disease with chronic wounds on the right leg requiring toe amputation, history of stroke, history of congestive heart failure, history of coronary artery disease with previous history of angioplasty and stent placement, history of depression with anxiety disorder. Patient was seen and examined on 06/10/2019, she is alert slightly confused in no apparent distress, she has been maintained on IV insulin drip and her glucose level is below 200 this time, there is no fever or chills no headache or di zziness no chest pain no shortness of breath no cough no nausea or vomiting no abdominal pain no diarrhea no burning with urination no frequency or urgency and no hematuria. On 06/11/2019 patient was seen and examined on the medical floor, she is alert slightly confused in no distress, glucose level is well-controlled at this time, she had an episode of hypoglycemia this morning, at this time will decrease Levemir dose to 20 units down from 22 units and monitor glucose level closely. On review of systems patient is complaining of pain in her lower extremity, otherwise she denies any complaints there is no fever or chills no headache or dizziness no chest pain no shortness of breath no cough no nausea or vomiting no abdominal pain no diarrhea and no urinary symptoms. On 06/12/2019 patient is alert and resting comfortably in bed. Plans for debridement today with Dr. Egan of foot wound. Long-acting insulin insulin currently on hold. Blood sugar this a.m. 176. This time patient denies chest pain or shortness of breath. Patient moving diarrhea. Denies any urinary burning or frequency On 06/13/2019 patient is status post debridement of right foot wounds with Dr. Egan. She is currently postop day 1. Blood sugars after surgical procedure greater than 400. Patient was started back on insulin drip. Current blood sugar 166. Will transition patient to NovoLog 6 units and 12 units of long- acting insulin will continue to monitor blood sugars closely due to known brittle diabetic. At this time patient denies chest pain or shortness of breath. Patient denies nausea vomiting or diarrhea. Patient denies any urinary burning or frequency. On 06/14/2019 patient is currently postop day 2 from debridement of right foot wounds. Discussed case with Angela nurse practitioner with Dr. Egan. Planning to switch boot tomorrow. Blood sugars remain fluctuating. Blood sugar last night 112 per nursing staff long-acting insulin was held blood sugar this a.m. 478. At this time patient denies chest pain or shortness of breath. Patient denies nausea vomiting or diarrhea. Patient denies any urinary burning or frequency On 06/15/2019 patient is currently postop day 3 from debridement of right foot wounds. Patient has been cleared for discharge from surgical services. Patient to return to wound care center next Wednesday for her weekly appointment contact cast has been applied. Blood sugars have improved. Insulin has been adjusted to 12 units of Levemir at night +6 units and sliding scale with meals. NovoLog sliding scale to be printed and given to early childhood education coordinator. Dr. Chapa to evaluate patient prior to discharge patient will be likely discharged on doxycycline. On 06/16/2019 patient is alert and oriented 3. Patient did have PICC line placement. Patient will be DC'd on daptomycin per infectious disease recommendation. Antibiotics have been ordered per ID. Insulin has been adjusted to Levemir 12 units at night with sliding scale. Patient to follow-up with PCP for further management. Patient will be discharged home with home healthcare PICC line has been placed. Patient denies chest pain or shortness breath. Patient denies nausea vomiting or diarrhea. Patient denies any urinary burning or frequency On 06/17/2019 Patient is alert and oriented x 3. discharge on hold until insurance prior auth is complete for home IVAB. At this time patient denies chest pain or shortness of breath. denies nausea vomiting or diarrhea. denies any urinary burning or frequency On 06/18/2019 patient was seen and examined on the medical floor she is alert and oriented 3 in no apparent distress she denies any complaints at this time she is still awaiting prior authorization for IV antibiotic at home On 06/19/2019 patient is alert and oriented 3. Awaiting insurance prior off for home IV antibiotics. Patient remains on daptomycin. Patient denies chest pain or shortness of breath. She denies nausea vomiting diarrhea. Patient denies any urinary burning burning or frequency. On 06/20/2019 patient is alert and oriented 3. Patient did receive insurance prior auth for home IV antibiotics. Discussed case with Dr. Chapa per infectious disease patient may receive today's dose prior to leaving. Patient will be DC'd on sliding scale +12 units of levemir or night. Patient denies any chest pain or shortness breath. Patient denies nausea vomiting or diarrhea. Patient denies any urinary burning or frequency I performed an examination of the patient and discussed their management with the Nurse Practitioner. I have reviewed the Nurse Practitioner's notes and agree with the documented findings and plan of care Patient Condition at Discharge: Stable Plan - Discharge Summary Discharge Rx Participant: Yes New Discharge Prescriptions: New INSULIN ASPART (NovoLOG) [NovoLOG (formulary)] 0 unit SQ ACHS vial DAPTOmycin [Daptomycin] 350 mg IV DAILY #40 vial Continue Albuterol Inhaler [Ventolin Hfa Inhaler] 2 puff INHALATION RT-Q4H PRN PRN Reason: Shortness Of Breath Famotidine [Pepcid] 20 mg PO DAILY Valproic Acid [Depakene] 250 mg PO DAILY Ergocalciferol [Vitamin D2 (DRISDOL)] 50,000 unit PO SA HYDROcodone/APAP 10-325MG [[place] 10-325] 1 tab PO Q6H PRN PRN Reason: Pain DULoxetine HCL [Cymbalta] 60 mg PO DAILY ALPRAZolam [Xanax] 1 mg PO Q8H Ondansetron [Zofran] 4 mg PO DAILY PRN PRN Reason: Nausea QUEtiapine [SEROquel] 100 mg PO HS QUEtiapine FUMARATE [SEROquel] 25 mg PO BID Atorvastatin [Lipitor] 20 mg PO DAILY Vitamin B Complex With Vit C 1 tab PO DAILY Aspirin [Adult Low Dose Aspirin EC] 81 mg PO DAILY Ferrous Sulfate [Iron (65 MG Elemental)] 325 mg PO DAILY Changed Insulin Glargine [Lantus] 12 unit SQ HS #0 Discontinued Doxycycline [Vibramycin] 100 mg PO BID 7 Days #14 capsule INSULIN LISPRO (humaLOG) [humaLOG] 6 units SQ AC-TID Discharge Medication List Albuterol Inhaler [Ventolin Hfa Inhaler] 2 puff INHALATION RT-Q4H PRN 07/19/15 [History] Famotidine [Pepcid] 20 mg PO DAILY 07/19/15 [History] Valproic Acid [Depakene] 250 mg PO DAILY 07/19/15 [History] Ergocalciferol [Vitamin D2 (DRISDOL)] 50,000 unit PO SA 03/05/16 [History] HYDROcodone/APAP 10-325MG [[place] 10-325] 1 tab PO Q6H PRN 10/03/16 [History] DULoxetine HCL [Cymbalta] 60 mg PO DAILY 02/16/17 [History] ALPRAZolam [Xanax] 1 mg PO Q8H 02/19/17 [History] Ondansetron [Zofran] 4 mg PO DAILY PRN 09/06/17 [History] Atorvastatin [Lipitor] 20 mg PO DAILY 12/28/18 [History] QUEtiapine FUMARATE [SEROquel] 25 mg PO BID 12/28/18 [History] QUEtiapine [SEROquel] 100 mg PO HS 12/28/18 [History] Vitamin B Complex With Vit C 1 tab PO DAILY 06/01/19 [History] Aspirin [Adult Low Dose Aspirin EC] 81 mg PO DAILY 06/09/19 [History] Ferrous Sulfate [Iron (65 MG Elemental)] 325 mg PO DAILY 06/09/19 [History] INSULIN ASPART (NovoLOG) [NovoLOG (formulary)] 0 unit SQ ACHS vial 06/15/19 [Rx] Insulin Glargine [Lantus] 12 unit SQ HS #0 06/15/19 [Rx] DAPTOmycin [Daptomycin] 350 mg IV DAILY #40 vial 06/16/19 [Rx] Follow up Appointment(s)/Referral(s): [facility], [NON-STAFF] - [facility], [REFERRING] - [facility] [NON-STAFF] - 06/21/19 2:00 pm Sherlyn Chen MD [Primary Care Provider] - 1-2 days Rufina Chapa MD [STAFF PHYSICIAN] - 1 Week Ambulatory/Diagnostic Orders: Basic Metabolic Panel [LAB.AMB] Location: None Selected C Reactive Protein [LAB.AMB] Location: None Selected Complete Blood Count w/diff [LAB.AMB] Location: None Selected Erythrocyte Sedimentation Rate [LAB.AMB] Location: None Selected Patient Instructions/Handouts: Diabetic Ketoacidosis (DC) Activity/Diet/Wound Care/Special Instructions: Activity as tolerated Diet consistent carb Insulin has been adjusted to long-acting decreasing down to 12 units at night plus sliding scale and 6 units of NovoLog with meals. Nursing staff to provide sliding-scale to early childhood education coordinator Discharge Disposition: HOME WITH HOME HEALTH SERVICES
[2019-06-20 11:40] LABS: Glucose,Whole Blood 168 mg/dL (75-99)
[2019-06-20] MEDS: DAPTOmycin 350 MG in SODIUM CHLORIDE 0.9% 50 ML IVPB SCH (12:15)
--- NOTE | 2019-06-20 13:05 | PN ---
PROGRESS NOTE DATE OF SERVICE: 06/20/2019 REASON FOR FOLLOWUP: Right foot osteomyelitis. INTERVAL HISTORY: The patient is currently afebrile. Patient is breathing comfortably. Patient denies having any chest pain, shortness of breath or cough. No nausea, no vomiting. No abdominal pain or pain to the right leg area. PHYSICAL EXAMINATION: Blood pressure 102/67 with pulse of 57, temperature 98. She is 95% on room air. General description is a middle-aged female, lying in bed in no distress. RESPIRATORY SYSTEM: Unlabored breathing, clear to auscultation anteriorly. HEART: S1, S2. Regular rate and rhythm. ABDOMEN: Soft, no tenderness. Right foot currently dressed up with cast. LABS: Hemoglobin 8.4, white count 2.9, BUN of 20, creatinine 0.92. DIAGNOSTIC IMPRESSION AND PLAN: Patient with right foot osteomyelitis, status post debridement. Culture with Staphylococcus epidermidis with vancomycin SHYANNE of 2. She is currently on daptomycin to continue for a total of 6 weeks. CBC, BMP and Sed rate. Follow up in the office next week. MMODL / IJN: [id number] /
[2019-06-20 15:49] VITALS: BP 139/83; PULSE 97; RESP 16; TEMP 97.5
[2019-06-20 16:44] LABS: Glucose,Whole Blood 401 mg/dL (75-99)
== END 2019-06-20 17:36 | disposition home health service (06) | DRG 628 ==
LOC: EC 16:21 → UNDOADMIN 20:02 → 4SSUR 20:02 → OBSVTOIN 06-11 14:17
PROVIDERS: ADMIT Internal Medicine; ATTEND Internal Medicine
PROC: 2W3SX2Z Immobilization of Right Foot using Cast (ICD-10-PCS; principal; 2019-06-12 08:30)
PROC: 0QBN0ZZ Excision of Right Metatarsal, Open Approach (ICD-10-PCS; principal; 2019-06-12 08:30)
PROC: 2W3SX2Z Immobilization of Right Foot using Cast (ICD-10-PCS; 2019-06-14)
PROC: 02HV33Z Insertion of Infusion Device into Superior Vena Cava, Percutaneous Approach (ICD-10-PCS; 2019-06-16)
DX: E10.69 Type 1 diabetes mellitus with other specified complication (principal); G93.41 Metabolic encephalopathy; M86.171 Other acute osteomyelitis, right ankle and foot; G81.94 Hemiplegia, unspecified affecting left nondominant side; E10.65 Type 1 diabetes mellitus with hyperglycemia; E10.628 Type 1 diabetes mellitus with other skin complications; E10.51 Type 1 diabetes mellitus with diabetic peripheral angiopathy without gangrene; E03.9 Hypothyroidism, unspecified; E10.319 Type 1 diabetes mellitus with unspecified diabetic retinopathy without macular edema; E10.621 Type 1 diabetes mellitus with foot ulcer; E78.5 Hyperlipidemia, unspecified; F31.9 Bipolar disorder, unspecified; F41.9 Anxiety disorder, unspecified; I11.0 Hypertensive heart disease with heart failure; I25.10 Atherosclerotic heart disease of native coronary artery without angina pectoris; I50.9 Heart failure, unspecified; Z96.1 Presence of intraocular lens; I70.235 Atherosclerosis of native arteries of right leg with ulceration of other part of foot; J44.9 Chronic obstructive pulmonary disease, unspecified; Z79.2 Long term (current) use of antibiotics; I25.2 Old myocardial infarction; Z79.4 Long term (current) use of insulin; Z79.82 Long term (current) use of aspirin; Z79.899 Other long term (current) drug therapy; Z82.49 Family history of ischemic heart disease and other diseases of the circulatory system; Z82.5 Family history of asthma and other chronic lower respiratory diseases; Z83.3 Family history of diabetes mellitus; Z86.14 Personal history of Methicillin resistant Staphylococcus aureus infection; Z86.73 Personal history of transient ischemic attack (TIA), and cerebral infarction without residual deficits; Z86.718 Personal history of other venous thrombosis and embolism; Z87.891 Personal history of nicotine dependence; Z88.1 Allergy status to other antibiotic agents; Z90.710 Acquired absence of both cervix and uterus; Z91.11 Patient's noncompliance with dietary regimen; Z91.19 Patient's noncompliance with other medical treatment and regimen; Z95.5 Presence of coronary angioplasty implant and graft; Z99.3 Dependence on wheelchair
CPT/HCPCS: 36415; 36573; 80051; 80053; 82009; 82150; 82565; 82803; 82947; 83036; 83605; 83690; 83735; 84100; 84132; 84520; 85025; 85610; 85652; 85730; 86140; 87070; 87075; 87077; 87186; 87205; 93005; 94640; 94760; 96360; 96361; 99285

== ENCOUNTER 2019-06-22 17:27 | Inpatient (IN) | payer OTHER ==
[2019-06-22 17:45] LABS: Glucose,Whole Blood 269 mg/dL (75-99)
[2019-06-22 19:37] LABS: Glucose,Whole Blood 247 mg/dL (75-99)
--- NOTE | 2019-06-22 19:59 | ED ---
Recheck HPI - General Chief Complaint: Recheck/Abnormal Lab/Rx Stated Complaint: Hyperglycemia Time Seen by Provider: 06/22/19 19:19 Source: patient, RN notes reviewed, old records reviewed Mode of arrival: wheelchair Limitations: no limitations - History of Present Illness Initial Comments: This is a 50-year-old female sent ER for failure to thrive. Patient is failing outpatient treatment she is on antibiotics at home for infection home nurse evaluated patient will today and house was significantly unlivable covered in feces, terrible conditions for home, patient herself without complaint but is unable to give history poor historian and is not make her own medical decisions Complaint: other (Recheck regarding elevated blood sugar as well as current treatment plan) -: unknown Returns Today for: Called Because of Abnormal Lab/Test Symptoms Since Prior Visit: no new symptoms Context: planned re-check Associated Symptoms: none - Related Data Home Medications Medication Instructions Recorded Confirmed Albuterol Inhaler [Ventolin Hfa 2 puff INHALATION RT-Q4H PRN 07/19/15 06/09/19 Inhaler] Famotidine [Pepcid] 20 mg PO DAILY 07/19/15 06/09/19 Valproic Acid [Depakene] 250 mg PO DAILY 07/19/15 06/09/19 Ergocalciferol [Vitamin D2 50,000 unit PO SA 03/05/16 06/09/19 (DRISDOL)] HYDROcodone/APAP 10-325MG [[place] 1 tab PO Q6H PRN 10/03/16 06/09/19 10-325] DULoxetine HCL [Cymbalta] 60 mg PO DAILY 02/16/17 06/09/19 ALPRAZolam [Xanax] 1 mg PO Q8H 02/19/17 06/09/19 Ondansetron [Zofran] 4 mg PO DAILY PRN 09/06/17 06/09/19 Atorvastatin [Lipitor] 20 mg PO DAILY 12/28/18 06/09/19 QUEtiapine FUMARATE [SEROquel] 25 mg PO BID 12/28/18 06/09/19 QUEtiapine [SEROquel] 100 mg PO HS 12/28/18 06/09/19 Vitamin B Complex With Vit C 1 tab PO DAILY 06/01/19 06/09/19 Aspirin [Adult Low Dose Aspirin EC] 81 mg PO DAILY 06/09/19 06/09/19 Ferrous Sulfate [Iron (65 MG 325 mg PO DAILY 06/09/19 06/09/19 Elemental)] Previous Rx's Medication Instructions Recorded INSULIN ASPART (NovoLOG) [NovoLOG 0 unit SQ ACHS vial 06/15/19 (formulary)] Insulin Glargine [Lantus] 12 unit SQ HS #0 06/15/19 DAPTOmycin [Daptomycin] 350 mg IV DAILY #40 vial 06/16/19 Allergies Allergy/AdvReac Type Severity Reaction Status Date / Time Barbiturates Allergy Rash/Hives Verified 06/09/19 20:52 cephalexin monohydrate Allergy Rash/Hives Verified 06/09/19 20:52 [From Keflex] morphine Allergy Rash/Hives Verified 06/09/19 20:52 Penicillins Allergy Rash/Hives Verified 06/09/19 20:52 phenobarbital Allergy Swelling Verified 06/09/19 20:52 venom-honey bee Allergy Swelling Verified 06/09/19 20:52 [bee venom (honey bee)] amlodipine besylate AdvReac Vomiting Verified 06/09/19 20:52 [From Norvasc] Review of Systems ROS Statement: Those systems with pertinent positive or pertinent negative responses have been documented in the HPI. ROS Other: All systems not noted in ROS Statement are negative. Past Medical History Past Medical History: Asthma, Coronary Artery Disease (CAD), Chest Pain / Angina, Heart Failure, COPD, CVA/TIA, Diabetes Mellitus, Deep Vein Thrombosis (DVT), Eye Disorder, GERD/Reflux, Hyperlipidemia, Hypertension, Myocardial Infarction ([place]), Neurologic Disorder, Osteoarthritis (OA), Pneumonia, Renal Disease Additional Past Medical History / Comment(s): IDDM (brittle), DKAs, neuropathy b ilateral hands/feet, retinopathy bilateral eyes, cellulitis R foot, R great toe and 2nd toe infections/amputations, current wound R foot-being seen in [facility], renal failure, anemia, CVAs with L sided paralysis, headaches started after CVAs, brain lesions, DVT R axillae, low back pain, varicosities, seizure many years ago (2001), hypothyroid, constipation, bilateral tinnitis occasionally, sinus problems. Last Myocardial Infarction Date:: 2011 History of Any Multi-Drug Resistant Organisms: MRSA Date of last positivie culture/infection: 09/06/17 MDRO Source:: Right Foot Past Surgical History: Appendectomy, Section, Cholecystectomy, Heart Catheterization With Stent, Hysterectomy, Orthopedic Surgery Additional Past Surgical History / Comment(s): PCI with multiple stents, R great toe and 2nd toe amps, debridements R foot ulcer, L shoulder surgery to remove bone, bronchoscopy, EGD, colonoscopy, R arm port since removed, bilateral cataract removals/lens implants. Past Anesthesia/Blood Transfusion Reactions: No Reported Reaction Additional Past Anesthesia/Blood Transfusion Reaction / Comment(s): HX OF BLOOD TRANSFUSION- NO REACTION Date of Last Stent Placement:: July 2012 Past Psychological History: Anxiety, Bipolar, Depression Smoking Status: Former smoker Past Alcohol Use History: None Reported Past Drug Use History: Marijuana - Past Family History Father Family Medical History: Unable to Obtain, Coronary Artery Disease (CAD), Diabetes Mellitus Mother Family Medical History: COPD General Exam Limitations: no limitations General appearance: alert, in no apparent distress Head exam: Present: atraumatic, normocephalic, normal inspection Eye exam: Present: normal appearance, PERRL, EOMI. Absent: scleral icterus, conjunctival injection, periorbital swelling ENT exam: Present: normal exam, mucous membranes moist Neck exam: Present: normal inspection. Absent: tenderness, meningismus, lymphadenopathy Respiratory exam: Present: normal lung sounds bilaterally. Absent: respiratory distress, wheezes, rales, rhonchi, stridor Cardiovascular Exam: Present: regular rate, normal rhythm, normal heart sounds. Absent: systolic murmur, diastolic murmur, rubs, gallop, clicks GI/Abdominal exam: Present: soft, normal bowel sounds. Absent: distended, tenderness, guarding, rebound, rigid Extremities exam: Present: normal inspection, full ROM, normal capillary refill. Absent: tenderness, pedal edema, joint swelling, calf tenderness Back exam: Present: normal inspection Neurological exam: Present: alert, oriented X3, CN II-XII intact Psychiatric exam: Present: normal affect, normal mood Skin exam: Present: warm, dry, intact, normal color. Absent: rash Course Vital Signs 06/22/19 17:33 Temperature 98.1 F Pulse Rate 99 Respiratory 17 Rate Blood Pressure 110/56 O2 Sat by Pulse 98 Oximetry - Reevaluation(s) Reevaluation #1: 06/22/19 21:42 Medical records reviewed Reevaluation #2: 06/22/19 21:43 Patient denies and continues to deny complaint - Consultations Consultation #1: Spoke with Dr. Noble regarding admission, recommends inpatient admission secondary to failure to thrive Medical Decision Making - Medical Decision Making 50 female with unsafely conditions, patient will be admitted for continued evaluation and management likely long-term placement - Lab Data Lab Results 06/22/19 06/22/19 Range/Units 17:44 19:35 POC Glucose (mg/dL) 269 H 247 H (75-99) mg/dL POC Glu Store Administrative Assistant Renita Villela Jessica Disposition Clinical Impression: Acute exacerbation of chronic obstructive airways disease, Malnutrition, Failure to thrive, Weakness Disposition: ADMITTED IP TO THIS [facility] Condition: Fair Is patient prescribed a controlled substance at d/c from ED?: No Referrals: Sherlyn Chen MD [Primary Care Provider] - 1-2 days
[2019-06-22] MEDS ORDERED: methylPREDNISolone SOD SUCCI 125 MG/2 ML VIAL IV STA (20:15)
[2019-06-22] MEDS ORDERED: IPRATROPIUM-ALBUTEROL 3 ML NEB INHALATION PRN (20:15)
[2019-06-22] MEDS ORDERED: SODIUM CHLORIDE 0.9% 500 ML 500 ML IV STA (20:15)
[2019-06-22] MEDS ORDERED: SODIUM CHLORIDE 0.9% 1,000 ML IV STA ×2 (20:15)
[2019-06-22 22:30] LABS: Basophils # (A) 0.1 k/uL (0-0.2); Basophils % (A) 1 %; Eosinophils % (A) 0 %; HCT 27.4 % (34.0-46.0); HGB 8.8 gm/dL (11.4-16.0); Lymphocytes # (A) 1.1 k/uL (1.0-4.8); Lymphocytes % (A) 17 %; MCH 29.9 pg (25.0-35.0); MCHC 32.1 g/dL (31.0-37.0); MCV 93.2 fL (80.0-100.0); Mean Platelet Volume 8.2; Monocytes # (A) 0.4 k/uL (0-1.0); Monocytes % (A) 6 %; Neutrophils # (A) 4.6 k/uL (1.3-7.7); Neutrophils % (A) 74 %; Platelet Count 204 k/uL (150-450); RBC 2.94 m/uL (3.80-5.40); RDW 14.9 % (11.5-15.5); WBC 6.3 k/uL (3.8-10.6)
[2019-06-22 22:33] LABS: Calcium 8.3 mg/dL (8.4-10.2); Magnesium 1.6 mg/dL (1.6-2.3); Potassium 4.9 mmol/L (3.5-5.1); Total Bilirubin 0.3 mg/dL (0.2-1.3); Total Protein 6.1 g/dL (6.3-8.2)
[2019-06-22] MEDS: SODIUM CHLORIDE 0.9% 1,000 ML IV SCH (22:42)
[2019-06-22 22:48] LABS: INR 0.9 (<1.2); Partial Thromboplastin Time 21.9 sec (22.0-30.0); Prothrombin Time 9.4 sec (9.0-12.0)
[2019-06-22] MEDS ORDERED: SODIUM CHLORIDE 0.9% 1,000 ML IV ONE (23:03)
[2019-06-22] MEDS ORDERED: INSULIN REGULAR 100 UNIT/ML VIAL SQ ONE (23:03)
[2019-06-22 23:08] LABS: Glucose,Whole Blood 521 mg/dL (75-99)
[2019-06-23] MEDS: methylPREDNISolone SOD SUCCI 125 MG/2 ML VIAL IV SCH ×2 (00:48→05:32)
[2019-06-23] MEDS: SODIUM CHLORIDE 0.9% 1,000 ML IV SCH (00:51)
[2019-06-23 02:01] LABS: Glucose,Whole Blood 363 mg/dL (75-99)
[2019-06-23 05:25] LABS: Glucose,Whole Blood 231 mg/dL (75-99)
[2019-06-23 06:50] LABS: Glucose,Whole Blood 230 mg/dL (75-99)
[2019-06-23] MEDS: INSULIN ASPART (NovoLOG) 100 UNIT/ML VIAL SQ SCH ×3 (07:16→17:04)
[2019-06-23] MEDS ORDERED: ONDANSETRON 4 MG TAB PO PRN (08:07)
[2019-06-23] MEDS: IPRATROPIUM-ALBUTEROL 3 ML NEB INHALATION SCH ×4 (08:44→19:31)
[2019-06-23 08:46] VITALS: BMI 23.2
[2019-06-23] MEDS ORDERED: DAPTOMYCIN 350 MG IV SCH (09:00)
[2019-06-23] MEDS ORDERED: ATORVASTATIN 20 MG TAB PO SCH (09:00)
[2019-06-23 09:28] LABS: Basophils % (A) 0 %; Eosinophils % (A) 1 %; HCT 28.1 % (34.0-46.0); HGB 8.9 gm/dL (11.4-16.0); Lymphocytes % (A) 14 %; MCH 30.2 pg (25.0-35.0); MCHC 31.6 g/dL (31.0-37.0); MCV 95.5 fL (80.0-100.0); Mean Platelet Volume 8.1; Monocytes # (A) 0.1 k/uL (0-1.0); Monocytes % (A) 2 %; Neutrophils # (A) 5.6 k/uL (1.3-7.7); Neutrophils % (A) 82 %; Platelet Count 208 k/uL (150-450); RBC 2.94 m/uL (3.80-5.40); RDW 14.9 % (11.5-15.5); WBC 6.8 k/uL (3.8-10.6)
--- NOTE | 2019-06-23 09:38 | P.HPIM ---
History of Present Illness H&P Date: 06/23/19 This is a 58-year-old female patient who presented to the ER with concerns of failure to thrive and concerns of living conditions per Visiting nurse. Patient was recently discharged on IV antibiotics for concerns for right foot osteomyelitis. Patient is also a known brittle diabetic. Additional medical history includes asthma, CAD, chest pain, heart failure, COPD, CVA, diabetes mellitus, deep vein thrombosis, GERD, hyperlipidemia, hypertension, osteoarthritis, renal disease and reoccurring extremity wounds due to diabetes cells and wound care clinic. According to ER report patient was covered in feces and poor living conditions were noted in house. Per patient she reports that she lives with caregiver. Patient was also noted to have some wheezing per ER admitted for COPD exacerbation. At this time will consult infectious disease for ongoing IV antibiotic use. Social work services also consulted to assess living condition and plan for discharge. Patient was started on Solu-Medrol for COPD exacerbation and DuoNeb breathing treatments will order chest x-ray. At this time patient denies chest pain or shortness of breath. Patient denies nausea vomiting or diarrhea. Patient denies any urinary burning or frequency Review of Systems Please refer to HPI otherwise unremarkable Past Medical History Past Medical History: Asthma, Coronary Artery Disease (CAD), Chest Pain / Angina, Heart Failure, COPD, CVA/TIA, Diabetes Mellitus, Deep Vein Thrombosis (DVT), Eye Disorder, GERD/Reflux, Hyperlipidemia, Hypertension, Myocardial Infarction (HI), Neurologic Disorder, Osteoarthritis (OA), Pneumonia, Renal Disease Additional Past Medical History / Comment(s): IDDM (brittle), DKAs, neuropathy bilateral hands/feet, retinopathy bilateral eyes, cellulitis R foot, R great toe and 2nd toe infections/amputations, current wound R foot-being seen in [facility], renal failure, anemia, CVAs with L sided paralysis, headaches started after CVAs, brain lesions, DVT R axillae, low back pain, varicosities, seizure many years ago (2001), hypothyroid, constipation, bilateral tinnitis occasionally, sinus problems. Last Myocardial Infarction Date:: 2011 History of Any Multi-Drug Resistant Organisms: MRSA Date of last positivie culture/infection: 09/06/17 MDRO Source:: Right Foot Past Surgical History: Appendectomy, Section, Cholecystectomy, Heart Catheterization With Stent, Hysterectomy, Orthopedic Surgery Additional Past Surgical History / Comment(s): PCI with multiple stents, R great toe and 2nd toe amps, debridements R foot ulcer, L shoulder surgery to remove bone, bronchoscopy, EGD, colonoscopy, R arm port since removed, bilateral zacarias ract removals/lens implants. Past Anesthesia/Blood Transfusion Reactions: No Reported Reaction Additional Past Anesthesia/Blood Transfusion Reaction / Comment(s): HX OF BLOOD TRANSFUSION- NO REACTION Date of Last Stent Placement:: July 2012 Past Psychological History: Anxiety, Bipolar, Depression Additional Psychological History / Comment(s): Pt has a legal guardian, Sera Rodriguez, who is pt's sister. Currently her legal guardian is hospitalized. Pt has a caregiver, No, who resides with her. Pt is wheelchair bound d/t CVA with L sided paralysis arm and leg. She has a shower chair and a glucometer. Her sister or caregiver drive her to [place]. Smoking Status: Former smoker Past Alcohol Use History: None Reported Additional Past Alcohol Use History / Comment(s): Pt started smoking in 1982 and quit in 2017. Using marijuana edibles occasionally but none for a "long time" Past Drug Use History: Marijuana Additional Drug Use History / Comment(s): using marijuana edibles - Past Family History Father Family Medical History: Unable to Obtain, Coronary Artery Disease (CAD), Diabetes Mellitus Mother Family Medical History: COPD Medications and Allergies Home Medications Medication Instructions Recorded Confirmed Type Albuterol Inhaler [Ventolin Hfa 2 puff INHALATION RT-Q4H PRN 07/19/15 06/22/19 History Inhaler] Famotidine [Pepcid] 20 mg PO DAILY 07/19/15 06/22/19 History Valproic Acid [Depakene] 250 mg PO DAILY 07/19/15 06/22/19 History Ergocalciferol [Vitamin D2 50,000 unit PO SA 03/05/16 06/22/19 History (DRISDOL)] HYDROcodone/APAP 10-325MG [[place] 1 tab PO Q6H PRN 10/03/16 06/22/19 History 10-325] DULoxetine HCL [Cymbalta] 60 mg PO DAILY 02/16/17 06/22/19 History ALPRAZolam [Xanax] 1 mg PO Q8H 02/19/17 06/22/19 History Ondansetron [Zofran] 4 mg PO DAILY PRN 09/06/17 06/22/19 History Atorvastatin [Lipitor] 20 mg PO DAILY 12/28/18 06/22/19 History QUEtiapine FUMARATE [SEROquel] 25 mg PO BID 12/28/18 06/22/19 History QUEtiapine [SEROquel] 100 mg PO HS 12/28/18 06/22/19 History Vitamin B Complex With Vit C 1 tab PO DAILY 06/01/19 06/22/19 History Aspirin [Adult Low Dose Aspirin EC] 81 mg PO DAILY 06/09/19 06/22/19 History Ferrous Sulfate [Iron (65 MG 325 mg PO DAILY 06/09/19 06/22/19 History Elemental)] Insulin Glargine [Lantus] 12 unit SQ HS #0 06/15/19 06/22/19 Rx DAPTOmycin [Daptomycin] 350 mg IV DAILY #40 vial 06/16/19 06/22/19 Rx INSULIN ASPART (NovoLOG) [NovoLOG See Protocol SQ ACHS 06/22/19 06/22/19 History (formulary)] Allergies Allergy/AdvReac Type Severity Reaction Status Date / Time Barbiturates Allergy Rash/Hives Verified 06/22/19 22:34 cephalexin monohydrate Allergy Rash/Hives Verified 06/22/19 22:34 [From Keflex] morphine Allergy Rash/Hives Verified 06/22/19 22:34 Penicillins Allergy Rash/Hives Verified 06/22/19 22:34 phenobarbital Allergy Swelling Verified 06/22/19 22:34 venom-honey bee Allergy Swelling Verified 06/22/19 22:34 [bee venom (honey bee)] amlodipine besylate AdvReac Vomiting Verified 06/22/19 22:34 [From Norvasc] Physical Exam Vitals: Vital Signs Temp Pulse Pulse Pulse Resp BP BP 06/23/19 08:57 95 06/23/19 08:47 06/23/19 08:44 97 06/23/19 08:33 98.3 F 97 18 135/70 06/23/19 02:50 98.1 F 92 132/68 06/23/19 00:00 87 18 06/22/19 22:29 18 06/22/19 22:06 110 H 18 137/69 06/22/19 17:33 98.1 F 99 17 110/56 Pulse Ox 06/23/19 08:57 06/23/19 08:47 97 06/23/19 08:44 06/23/19 08:33 98 06/23/19 02:50 98 06/23/19 00:00 06/22/19 22:29 06/22/19 22:06 99 06/22/19 17:33 98 Intake and Output 06/22/19 06/23/19 06/23/19 22:59 06:59 14:59 Intake Total 400 Balance 400 Intake: Intake, IV Titration 400 Amount Sodium Chloride 0.9% 1, 400 000 ml @ 100 mls/hr IV . Q10H [facility] Rx#:[id number] Other: Voiding Method Diaper Diaper Incontinent Incontinent # Voids 1 2 Weight 57.606 kg 57.606 kg Head normocephalic Neck supple Lungs diminished bilaterally Heart regular rate and rhythm S1-S2, no rub or gallop Abdomen is soft nontender nondistended positive bowel sounds no hepatosplenomegaly Extremities no edema. Right foot dressing place clean dry and intact Neuro alert and orientated to 3 Results CBC & Chem 7: 06/22/19 22:14 06/22/19 22:14 Labs: Abnormal Lab Results - Last 24 Hours (Table) 06/22/19 06/22/19 06/22/19 Range/Units 17:44 19:35 22:14 RBC 2.94 L (3.80-5.40) m/uL Hgb 8.8 L (11.4-16.0) gm/dL Hct 27.4 L (34.0-46.0) % APTT (22.0-30.0) sec Sodium (137-145) mmol/L BUN (7-17) mg/dL Glucose (74-99) mg/dL POC Glucose (mg/dL) 269 H 247 H (75-99) mg/dL Calcium (8.4-10.2) mg/dL Total Protein (6.3-8.2) g/dL Albumin (3.5-5.0) g/dL 06/22/19 06/22/19 06/22/19 Range/Units 22:14 22:14 23:01 RBC (3.80-5.40) m/uL Hgb (11.4-16.0) gm/dL Hct (34.0-46.0) % APTT 21.9 L (22.0-30.0) sec Sodium 135 L (137-145) mmol/L BUN 24 H (7-17) mg/dL Glucose 426 H (74-99) mg/dL POC Glucose (mg/dL) 521 H (75-99) mg/dL Calcium 8.3 L (8.4-10.2) mg/dL Total Protein 6.1 L (6.3-8.2) g/dL Albumin 3.0 L (3.5-5.0) g/dL 06/23/19 06/23/19 06/23/19 Range/Units 01:59 05:23 06:47 RBC (3.80-5.40) m/uL Hgb (11.4-16.0) gm/dL Hct (34.0-46.0) % APTT (22.0-30.0) sec Sodium (137-145) mmol/L BUN (7-17) mg/dL Glucose (74-99) mg/dL POC Glucose (mg/dL) 363 H 231 H 230 H (75-99) mg/dL Calcium (8.4-10.2) mg/dL Total Protein (6.3-8.2) g/dL Albumin (3.5-5.0) g/dL Thrombosis Risk Factor Assmnt - Choose All That Apply Any of the Below Risk Factors Present?: Yes Each Factor Represents 1 point: Abnormal pulmonary function (COPD), Age 41-60 years Other Risk Factors: Yes Each Risk Factor Represents 3 Points: History of DVT/PE Thrombosis Risk Factor Assessment Total Risk Factor Score: 5 Thrombosis Risk Factor Assessment Level: High Risk Assessment and Plan Assessment: 1. Failure to thrive with concerns of living conditions. Social work services have been consulted to assess discharge planning and home environment 2. Right foot wound infection with osteomyelitis. Patient recently underwent debridement with Dr. Egan. Patient recently discharged on IV daptomycin per ID. Infectious disease services have been consulted. Daptomycin has been resumed 3. Acute COPD exacerbation. Patient started Solu-Medrol DuoNeb breathing treatments chest x-ray has been ordered 4. Type 1 diabetes mellitus known brittle diabetic with noncompliance. Patient's home dose of Levemir and sliding scale insulin has been ordered 5. History of peripheral vascular disease 6. History of essential hypertension 7. History of hyperlipidemia 8. History of congestive heart failure 9. History of coronary artery disease with previous history of angioplasty and stent placement DVT prophylaxis Lovenox. GI prophylaxis Pepcid Infectious disease senior erp consultant continue daptomycin Social work services consulted Time with Patient: Greater than 30 (Greater than 60% of the total time spent in counseling and coordination of care. I performed an examination of the patient and discussed their management with the Nurse Practitioner. I have reviewed the Nurse Practitioner's notes and agree with the documented findings and plan of care)
[2019-06-23 09:46] LABS: ALT 21 U/L (4-34); AST 33 U/L (14-36); African American GFR (CKD) >90 (>60 ml/min/1.73 sqM); Albumin 3.3 g/dL (3.5-5.0); Alkaline Phosphatase 90 U/L (38-126); Anion Gap 8 mmol/L; Blood Urea Nitrogen 23 mg/dL (7-17); Calcium 8.6 mg/dL (8.4-10.2); Carbon Dioxide 29 mmol/L (22-30); Chloride 100 mmol/L (98-107); Glucose 336 mg/dL (74-99); Non-African American GFR(CKD) 87 (>60 ml/min/1.73 sqM); Sodium 137 mmol/L (137-145); Total Bilirubin 0.6 mg/dL (0.2-1.3); Total Protein 6.8 g/dL (6.3-8.2)
[2019-06-23] MEDS: ASPIRIN 81 MG PO SCH (09:58)
[2019-06-23] MEDS: ENOXAPARIN 40 MG/0.4 ML SYRINGE SQ SCH (09:58)
[2019-06-23] MEDS: QUEtiapine 25 MG TAB PO SCH ×2 (09:58→21:30)
[2019-06-23] MEDS: DULoxetine HCL 60 MG CAPSULE.DR PO SCH (09:58)
[2019-06-23] MEDS: FAMOTIDINE 20 MG TAB PO SCH (09:59)
[2019-06-23] MEDS: FERROUS SULFATE 325 MG TAB PO SCH (09:59)
[2019-06-23 10:03] LABS: Potassium 4.9 mmol/L (3.5-5.1)
[2019-06-23] MEDS: ALPRAZolam 1 MG TAB PO SCH ×2 (10:09→15:24)
[2019-06-23] MEDS: VALPROIC ACID ORAL SOLN 250 MG/5 ML CUP PO SCH (10:50)
[2019-06-23] MEDS: HYDROcodone/APAP 10-325MG 1 EACH TAB PO PRN ×2 (10:50→21:54)
[2019-06-23] MEDS: DAPTOmycin 350 MG in SODIUM CHLORIDE 0.9% 50 ML IVPB SCH (10:50)
[2019-06-23 11:41] LABS: Glucose,Whole Blood 427 mg/dL (75-99)
[2019-06-23] MEDS ORDERED: INSULIN ASPART (NovoLOG) 100 UNIT/ML VIAL SQ ONE ×2 (12:00→22:01)
--- NOTE | 2019-06-23 15:21 | XR ---
EXAMINATION TYPE: XR chest 2V DATE OF EXAM: 06/23/2019 COMPARISON: Chest x-ray December 28, 2018 HISTORY: COPD with difficulty breathing. TECHNIQUE: Frontal and lateral views of the chest are obtained. FINDINGS: New Right-sided PICC line terminating in SVC. There is chronic parenchyma change without s uspicious new focal air space opacity, pleural effusion, or pneumothorax seen. The cardiac silhouett e size is enlarged on current study. Calcified coronary stent right aspect of heart redemonstrated. The osseous structures are intact. IMPRESSION: Cardiomegaly without suspicious acute pulmonary process.
[2019-06-23] MEDS ORDERED: ALPRAZolam 1 MG TAB PO SCH (16:00)
[2019-06-23 16:30] LABS: Glucose,Whole Blood 461 mg/dL (75-99)
[2019-06-23 20:59] LABS: Glucose,Whole Blood 473 mg/dL (75-99)
[2019-06-23] MEDS ORDERED: INSULIN DETEMIR (LEVEMIR) 100 UNIT/ML SYR SQ SCH ×2 (21:00→22:30)
[2019-06-23] MEDS: QUEtiapine 100 MG TAB PO SCH (21:30)
--- NOTE | 2019-06-23 22:02 | CONS ---
CONSULTATION DATE OF SERVICE: 06/23/2019 REASON FOR CONSULTATION: Right foot osteomyelitis. The patient is known to me. HISTORY OF PRESENT ILLNESS: The patient is a 58-year-old female with a recent diagnosis of right diabetic foot infection with osteomyelitis at the base of the fifth toe. The patient is status post surgical debridement. Culture was positive for Staph epi with high SHYANNE to vancomycin. Subsequently the patient did have daptomycin arranged and she was recently discharged home to continue with the IV antibiotic therapy. The patient has been brought into the ER with concern by visiting nurses, as the patient was noticed to be covered in feces and poor living condition was noticed in the house. The patient also was noted to have some wheezing on arrival in the ER. The patient subsequently has been admitted to the hospital. On arrival, the patient was afebrile. The patient did have a normal white count. Kidney functions were normal as well. The patient did have a chest x-ray that was reported negative for any pneumonia. The patient has been continued on daptomycin. I was asked to see the patient for continued followup. The patient currently denies having any worsening pain to the right foot wound area. REVIEW OF SYSTEMS: Positive points have been mentioned in HPI. Rest of the systems are negative. PAST MEDICAL HISTORY: Coronary artery disease, angina, heart failure, COPD, CVA, TIA, diabetes mellitus, DVT, DE, hypertension, hyperlipidemia, osteoarthritis, pneumonia and right foot osteomyelitis. PAST SURGICAL HISTORY: Appendectomy, , cholecystectomy, heart catheterization, hysterectomy and right foot debridement. SOCIAL HISTORY: Former smoker. marijuana use. No drinking. FAMILY HISTORY: Father with history of coronary artery disease, diabetes. Mother with history of COPD. ALLERGIES: To multiple medications, including PENICILLIN and CEPHALEXIN. CURRENT MEDICATION: The patient is on daptomycin 350 mg daily. She is on aspirin, Xanax, DuoNeb, [place], Cymbalta, vitamin D2, Pepcid, iron sulfate, NovoLog, Zofran, Seroquel. PHYSICAL EXAMINATION: Blood pressure is 90/51 with a pulse of 96, temperature 98.4. She is 96% on room air. General description is middle-aged female lying in bed in no distress. No tachypnea or accessory muscle of respiration use. HEENT examination shows slight pallor. No scleral icterus. Oral mucosal membrane is dry. No pharyngeal erythema or thrush. NECK: Trachea is central. No thyromegaly. LUNGS: Unlabored breathing. Clear to auscultation anteriorly. No wheeze or crackle. HEART: S1, S2. Regular rate and rhythm. ABDOMEN: Soft. No tenderness. No guarding or rigidity. EXTREMITIES: No edema of the feet. Right foot wound on both medial and lateral site did have minimal slough tissue. No significant surrounding inflammatory changes or any foul-smelling drainage. Neurologically the patient is awake, alert, oriented x3. Mood and affect normal. LABS: Hemoglobin 8.9, white count 6.8. BUN of 23, creatinine 0.7. Electrolytes have been normal. Liver enzymes are normal. DIAGNOSTIC IMPRESSION AND PLAN: Patient with right diabetic foot infection in this patient who did have a chronic nonhealing wound on the right foot both medial and lateral sides. This patient did have evidence of osteomyelitis on the basis of the bone scan and confirmed at the time of surgical debridement. Culture with Staphylococcus epidermidis with high SHYANNE to vancomycin. PLAN: 1. Patient to continue with daptomycin 350 mg IV piggyback daily. 2. Local wound care with Medihoney followed by moist dressing. Keep the area off pressure. 3. Patient will likely need placement because of her home situation and continue with current antibiotic management to finish her 6-week course of therapy. MMODL / IJN: [id number] /
[2019-06-24] MEDS: ALPRAZolam 1 MG TAB PO SCH ×3 (00:15→16:32)
[2019-06-24 01:46] LABS: Glucose,Whole Blood 440 mg/dL (75-99)
[2019-06-24 06:59] LABS: Glucose,Whole Blood 199 mg/dL (75-99)
[2019-06-24 07:30] LABS: Basophils # (A) 0.1 k/uL (0-0.2); Basophils % (A) 1 %; Eosinophils % (A) 0 %; HCT 27.1 % (34.0-46.0); HGB 8.6 gm/dL (11.4-16.0); Hypochromasia Slight; Lymphocytes # (A) 1.4 k/uL (1.0-4.8); Lymphocytes % (A) 24 %; MCH 30.3 pg (25.0-35.0); MCHC 31.6 g/dL (31.0-37.0); MCV 95.9 fL (80.0-100.0); Mean Platelet Volume 7.9; Monocytes # (A) 0.3 k/uL (0-1.0); Monocytes % (A) 6 %; Neutrophils # (A) 4.1 k/uL (1.3-7.7); Neutrophils % (A) 68 %; Platelet Count 242 k/uL (150-450); RBC 2.82 m/uL (3.80-5.40); RDW 15.4 % (11.5-15.5)
[2019-06-24 07:56] LABS: Calcium 9.1 mg/dL (8.4-10.2); Potassium 4.4 mmol/L (3.5-5.1); Total Bilirubin 0.3 mg/dL (0.2-1.3); Total Protein 6.1 g/dL (6.3-8.2)
[2019-06-24] MEDS: ENOXAPARIN 40 MG/0.4 ML SYRINGE SQ SCH (08:20)
[2019-06-24] MEDS: ASPIRIN 81 MG PO SCH (08:20)
[2019-06-24] MEDS: QUEtiapine 25 MG TAB PO SCH ×2 (08:20→21:32)
[2019-06-24] MEDS: DULoxetine HCL 60 MG CAPSULE.DR PO SCH (08:20)
[2019-06-24] MEDS: QUEtiapine 100 MG TAB PO SCH (08:20)
[2019-06-24] MEDS: VALPROIC ACID ORAL SOLN 250 MG/5 ML CUP PO SCH (08:20)
[2019-06-24] MEDS: FERROUS SULFATE 325 MG TAB PO SCH (08:20)
[2019-06-24] MEDS: FAMOTIDINE 20 MG TAB PO SCH (08:20)
[2019-06-24] MEDS: INSULIN ASPART (NovoLOG) 100 UNIT/ML VIAL SQ SCH ×3 (08:21→16:32)
[2019-06-24] MEDS: DAPTOmycin 350 MG in SODIUM CHLORIDE 0.9% 50 ML IVPB SCH (08:21)
[2019-06-24] MEDS: IPRATROPIUM-ALBUTEROL 3 ML NEB INHALATION SCH ×4 (08:55→20:37)
[2019-06-24] MEDS ORDERED: ERGOCALCIFEROL 50,000 UNIT CAP PO SCH (09:00)
[2019-06-24 11:45] LABS: Glucose,Whole Blood 179 mg/dL (75-99)
--- NOTE | 2019-06-24 15:28 | P.PN ---
Subjective Progress Note Date: 06/24/19 This is a 58-year-old female patient who presented to the ER with concerns of failure to thrive and concerns of living conditions per Visiting nurse. Patient was recently discharged on IV antibiotics for concerns for right foot osteomyelitis. Patient is also a known brittle diabetic. Additional medical history includes asthma, CAD, chest pain, heart failure, COPD, CVA, diabetes mellitus, deep vein thrombosis, GERD, hyperlipidemia, hypertension, osteoarthritis, renal disease and reoccurring extremity wounds due to diabetes cells and wound care clinic. According to ER report patient was covered in feces and poor living conditions were noted in house. Per patient she reports that she lives with caregiver. Patient was also noted to have some wheezing per ER admitted for COPD exacerbation. At this time will consult infectious disease for ongoing IV antibiotic use. Social work services also consulted to assess living condition and plan for discharge. Patient was started on Solu-Medrol for COPD exacerbation and DuoNeb breathing treatments will order chest x-ray. At this time patient denies chest pain or shortness of breath. Patient denies nausea vomiting or diarrhea. Patient denies any urinary burning or frequency On 06/24/2019 patient was seen and examined on the medical floor she is alert and oriented 3 in no apparent distress she is complaining of occasional pain in her lower extremity otherwise she denies any complaints there is no fever no chills no headache no dizziness no chest pain no shortness of breath no cough no nausea or vomiting no abdominal pain no diarrhea no burning with urination no frequency or urgency no hematuria Objective - Vital Signs Vital signs: Vital Signs Temp 97.9 F 06/24/19 14:33 Pulse 85 06/24/19 15:17 Resp 16 06/24/19 15:17 BP 90/52 06/24/19 14:33 Pulse Ox 95 06/24/19 14:33 Intake & Output 06/23/19 06/24/19 06/24/19 18:59 06:59 18:59 Intake Total 1040 1004 Balance 1040 1004 Weight 57.606 kg Intake: Intake, IV Titration 800 50 Amount DAPTOmycin 350 mg In 100 50 Sodium Chloride 0.9% 50 ml @ 100 mls/hr IVPB Q24HR [facility] Rx#:[id number] Sodium Chloride 0.9% 1, 700 000 ml @ 100 mls/hr IV . Q10H [facility] Rx#:[id number] Oral 240 954 Other: Voiding Method Diaper Diaper Incontinent Incontinent # Voids 1 1 2 - Exam In general patient is alert and oriented 3 in no apparent distress HEENT head normocephalic and atraumatic Neck is supple no JVD no goiter no lymphadenopathy Lungs diminished bilaterally no crackles no wheezing Heart regular rate and rhythm S1-S2, no rub or gallop Abdomen is soft nontender nondistended positive bowel sounds no hepatosplenomegaly Extremities no edema. Right foot dressing place clean dry and intact Neuro no acute gross focal neurological deficit, residual weakness from previous stroke and changed - Labs CBC & Chem 7: 06/24/19 06:53 06/24/19 06:53 Labs: Abnormal Lab Results - Last 24 Hours (Table) 06/23/19 06/23/19 06/24/19 Range/Units 16:29 20:58 01:44 RBC (3.80-5.40) m/uL Hgb (11.4-16.0) gm/dL Hct (34.0-46.0) % Carbon Dioxide (22-30) mmol/L BUN (7-17) mg/dL Glucose (74-99) mg/dL POC Glucose (mg/dL) 461 H 473 H 440 H (75-99) mg/dL Total Protein (6.3-8.2) g/dL Albumin (3.5-5.0) g/dL 06/24/19 06/24/19 06/24/19 Range/Units 06:53 06:53 06:56 RBC 2.82 L (3.80-5.40) m/uL Hgb 8.6 L (11.4-16.0) gm/dL Hct 27.1 L (34.0-46.0) % Carbon Dioxide 31 H (22-30) mmol/L BUN 26 H (7-17) mg/dL Glucose 185 H (74-99) mg/dL POC Glucose (mg/dL) 199 H (75-99) mg/dL Total Protein 6.1 L (6.3-8.2) g/dL Albumin 3.0 L (3.5-5.0) g/dL 06/24/19 Range/Units 11:33 RBC (3.80-5.40) m/uL Hgb (11.4-16.0) gm/dL Hct (34.0-46.0) % Carbon Dioxide (22-30) mmol/L BUN (7-17) mg/dL Glucose (74-99) mg/dL POC Glucose (mg/dL) 179 H (75-99) mg/dL Total Protein (6.3-8.2) g/dL Albumin (3.5-5.0) g/dL Microbiology - Last 24 Hours (Table) 06/22/19 22:45 Blood Culture - Preliminary Blood No Growth after 24 hours Assessment and Plan Plan: 1. Failure to thrive with concerns of living conditions. Social work services have been consulted to assess discharge planning and home environment 2. Right foot wound infection with osteomyelitis. Patient recently underwent debridement with Dr. Egan. Patient recently discharged on IV daptomycin per ID. Infectious disease services have been consulted. Daptomycin has been resumed 3. Acute COPD exacerbation. Patient started Solu-Medrol DuoNeb breathing treatments chest x-ray has been ordered 4. Type 1 diabetes mellitus known brittle diabetic with noncompliance. Patient's home dose of Levemir and sliding scale insulin has been ordered 5. History of peripheral vascular disease 6. History of essential hypertension 7. History of hyperlipidemia 8. History of congestive heart failure 9. History of coronary artery disease with previous history of angioplasty and stent placement DVT prophylaxis Lovenox. GI prophylaxis Pepcid Infectious disease consultant [employer] vice president [employer] (ex ) continue daptomycin Social work services consulted
[2019-06-24 16:31] LABS: Glucose,Whole Blood 70 mg/dL (75-99)
[2019-06-24 20:46] LABS: Glucose,Whole Blood 237 mg/dL (75-99)
[2019-06-24] MEDS: INSULIN DETEMIR (LEVEMIR) 100 UNIT/ML SYR SQ SCH (20:48)
[2019-06-24] MEDS: HYDROcodone/APAP 10-325MG 1 EACH TAB PO PRN (21:32)
[2019-06-25] MEDS: ALPRAZolam 1 MG TAB PO SCH ×4 (01:04→23:13)
[2019-06-25 03:11] LABS: Glucose,Whole Blood 58 mg/dL (75-99)
[2019-06-25 03:36] LABS: Glucose,Whole Blood 71 mg/dL (75-99)
[2019-06-25 04:13] LABS: Glucose,Whole Blood 64 mg/dL (75-99)
[2019-06-25 04:36] LABS: Glucose,Whole Blood 73 mg/dL (75-99)
[2019-06-25 07:00] LABS: Glucose,Whole Blood 93 mg/dL (75-99)
[2019-06-25] MEDS: INSULIN ASPART (NovoLOG) 100 UNIT/ML VIAL SQ SCH ×3 (07:03→17:17)
[2019-06-25 07:17] LABS: Basophils % (A) 1 %; Eosinophils % (A) 1 %; HCT 25.3 % (34.0-46.0); HGB 8.1 gm/dL (11.4-16.0); Hypochromasia Slight; Lymphocytes # (A) 1.6 k/uL (1.0-4.8); Lymphocytes % (A) 30 %; MCH 30.9 pg (25.0-35.0); MCHC 32.1 g/dL (31.0-37.0); MCV 96.2 fL (80.0-100.0); Mean Platelet Volume 7.9; Monocytes # (A) 0.3 k/uL (0-1.0); Monocytes % (A) 6 %; Neutrophils # (A) 3.2 k/uL (1.3-7.7); Neutrophils % (A) 61 %; Platelet Count 235 k/uL (150-450); RBC 2.62 m/uL (3.80-5.40); RDW 15.6 % (11.5-15.5); WBC 5.3 k/uL (3.8-10.6)
[2019-06-25 07:27] LABS: Potassium 4.9 mmol/L (3.5-5.1); Total Bilirubin 0.3 mg/dL (0.2-1.3); Total Protein 6.2 g/dL (6.3-8.2)
[2019-06-25] MEDS: IPRATROPIUM-ALBUTEROL 3 ML NEB INHALATION SCH ×4 (08:28→19:53)
[2019-06-25] MEDS: DAPTOmycin 350 MG in SODIUM CHLORIDE 0.9% 50 ML IVPB SCH (08:45)
[2019-06-25] MEDS: ASPIRIN 81 MG PO SCH (08:45)
[2019-06-25] MEDS: DULoxetine HCL 60 MG CAPSULE.DR PO SCH (08:45)
[2019-06-25] MEDS: FERROUS SULFATE 325 MG TAB PO SCH (08:45)
[2019-06-25] MEDS: ENOXAPARIN 40 MG/0.4 ML SYRINGE SQ SCH (08:45)
[2019-06-25] MEDS: FAMOTIDINE 20 MG TAB PO SCH (08:45)
[2019-06-25] MEDS: VALPROIC ACID ORAL SOLN 250 MG/5 ML CUP PO SCH (08:45)
[2019-06-25] MEDS: QUEtiapine 25 MG TAB PO SCH ×2 (08:46→20:32)
[2019-06-25 11:44] LABS: Glucose,Whole Blood 168 mg/dL (75-99)
--- NOTE | 2019-06-25 13:52 | P.PN ---
Subjective Progress Note Date: 06/25/19 This is a 58-year-old female patient who presented to the ER with concerns of failure to thrive and concerns of living conditions per Visiting nurse. Patient was recently discharged on IV antibiotics for concerns for right foot osteomyelitis. Patient is also a known brittle diabetic. Additional medical history includes asthma, CAD, chest pain, heart failure, COPD, CVA, diabetes mellitus, deep vein thrombosis, GERD, hyperlipidemia, hypertension, osteoarthritis, renal disease and reoccurring extremity wounds due to diabetes cells and wound care clinic. According to ER report patient was covered in feces and poor living conditions were noted in house. Per patient she reports that she lives with caregiver. Patient was also noted to have some wheezing per ER admitted for COPD exacerbation. At this time will consult infectious disease for ongoing IV antibiotic use. Social work services also consulted to assess living condition and plan for discharge. Patient was started on Solu-Medrol for COPD exacerbation and DuoNeb breathing treatments will order chest x-ray. At this time patient denies chest pain or shortness of breath. Patient denies nausea vomiting or diarrhea. Patient denies any urinary burning or frequency On 06/24/2019 patient was seen and examined on the medical floor she is alert and oriented 3 in no apparent distress she is complaining of occasional pain in her lower extremity otherwise she denies any complaints there is no fever no chills no headache no dizziness no chest pain no shortness of breath no cough no nausea or vomiting no abdominal pain no diarrhea no burning with urination no frequency or urgency no hematuria On 06/25/2019 patient was seen and examined on the medical floor she states she is doing well she denies any complaints at this time there is no fever or chills no headache or dizziness no chest pain no shortness of breath no cough no nausea or vomiting no abdominal pain no diarrhea no burning with urination no frequency or urgency and no hematuria and in the lower extremity is well-controlled at this time Objective - Vital Signs Vital signs: Vital Signs Temp 98.4 F 06/25/19 06:55 Pulse 82 06/25/19 12:09 Resp 14 06/25/19 08:25 BP 104/66 06/25/19 06:55 Pulse Ox 96 06/25/19 06:55 Intake & Output 06/24/19 06/25/19 06/25/19 18:59 06:59 18:59 Intake Total 1004 720 Balance 1004 720 Intake: Intake, IV Titration 50 Amount DAPTOmycin 350 mg In 50 Sodium Chloride 0.9% 50 ml @ 100 mls/hr IVPB Q24HR [facility] Rx#:[id number] Oral 152 584 Other: Voiding Method Diaper Diaper Incontinent Incontinent # Voids 2 1 - Exam In general patient is alert and oriented 3 in no apparent distress HEENT head normocephalic and atraumatic Neck is supple no JVD no goiter no lymphadenopathy Lungs diminished bilaterally no crackles no wheezing Heart regular rate and rhythm S1-S2, no rub or gallop Abdomen is soft nontender nondistended positive bowel sounds no hepatosplenomegaly Extremities no edema. Right foot dressing place clean dry and intact Neuro no acute gross focal neurological deficit, residual weakness from previous stroke and changed - Labs CBC & Chem 7: 06/25/19 06:36 06/25/19 06:36 Labs: Abnormal Lab Results - Last 24 Hours (Table) 06/24/19 06/24/19 06/25/19 Range/Units 16:30 20:45 03:09 RBC (3.80-5.40) m/uL Hgb (11.4-16.0) gm/dL Hct (34.0-46.0) % RDW (11.5-15.5) % Carbon Dioxide (22-30) mmol/L BUN (7-17) mg/dL POC Glucose (mg/dL) 70 L 237 H 58 L (75-99) mg/dL Total Protein (6.3-8.2) g/dL Albumin (3.5-5.0) g/dL 06/25/19 06/25/19 06/25/19 Range/Units 03:35 04:01 04:35 RBC (3.80-5.40) m/uL Hgb (11.4-16.0) gm/dL Hct (34.0-46.0) % RDW (11.5-15.5) % Carbon Dioxide (22-30) mmol/L BUN (7-17) mg/dL POC Glucose (mg/dL) 71 L 64 L 73 L (75-99) mg/dL Total Protein (6.3-8.2) g/dL Albumin (3.5-5.0) g/dL 06/25/19 06/25/1906/25/20 Range/Units 06:36 06:36 11:43 RBC 2.62 L (3.80-5.40) m/uL Hgb 8.1 L (11.4-16.0) gm/dL Hct 25.3 L (34.0-46.0) % RDW 15.6 H (11.5-15.5) % Carbon Dioxide 33 H (22-30) mmol/L BUN 28 H (7-17) mg/dL POC Glucose (mg/dL) 168 H (75-99) mg/dL Total Protein 6.2 L (6.3-8.2) g/dL Albumin 3.0 L (3.5-5.0) g/dL Microbiology - Last 24 Hours (Table) 06/22/19 22:45 Blood Culture - Preliminary Blood No Growth after 48 hours Assessment and Plan Plan: 1. Failure to thrive with concerns of living conditions. Social work services have been consulted to assess discharge planning and home environment 2. Right foot wound infection with osteomyelitis. Patient recently underwent debridement with Dr. Egan. Patient recently discharged on IV daptomycin per ID. Infectious disease services have been consulted. Daptomycin has been resumed 3. Acute COPD exacerbation. Patient started Solu-Medrol DuoNeb breathing treatments chest x-ray has been ordered 4. Type 1 diabetes mellitus known brittle diabetic with noncompliance. Patient's home dose of Levemir and sliding scale insulin has been ordered 5. History of peripheral vascular disease 6. History of essential hypertension 7. History of hyperlipidemia 8. History of congestive heart failure 9. History of coronary artery disease with previous history of angioplasty and stent placement DVT prophylaxis Lovenox. GI prophylaxis Pepcid Infectious disease clothing consultant continue daptomycin Social work services consulted
[2019-06-25 16:57] LABS: Glucose,Whole Blood 225 mg/dL (75-99)
[2019-06-25 19:07] LABS: Glucose,Whole Blood 242 mg/dL (75-99)
[2019-06-25] MEDS: QUEtiapine 100 MG TAB PO SCH (20:32)
[2019-06-25] MEDS: INSULIN DETEMIR (LEVEMIR) 100 UNIT/ML SYR SQ SCH (20:32)
[2019-06-25] MEDS: HYDROcodone/APAP 10-325MG 1 EACH TAB PO PRN (23:15)
[2019-06-26 02:14] LABS: Glucose,Whole Blood 137 mg/dL (75-99)
[2019-06-26 05:34] LABS: Glucose,Whole Blood 58 mg/dL (75-99)
[2019-06-26 06:37] LABS: Glucose,Whole Blood 88 mg/dL (75-99)
--- NOTE | 2019-06-26 06:39 | PN ---
PROGRESS NOTE DATE OF SERVICE: 06/25/2019 REASON FOR FOLLOWUP: Right foot osteomyelitis. INTERVAL HISTORY: The patient is currently afebrile. She has been breathing comfortably. Denies having any chest pain or cough. No nausea, no vomiting. No abdominal pain or pain to the right foot. PHYSICAL EXAMINATION: Blood pressure is 117/63 with a pulse of 90, temperature 97.7. She is 93% on room air. General description is a middle-aged female lying in bed in no distress. RESPIRATORY SYSTEM: Unlabored breathing, clear to auscultation anteriorly. HEART: S1, S2. Regular rate and rhythm. ABDOMEN: Soft, no tenderness. Right foot is currently dressed up, no obvious drainage on the dressing. LABS: Hemoglobin 8.1, white count of 5.3, BUN of 28, creatinine 0.97. Blood culture has been negative. DIAGNOSTIC IMPRESSION AND PLAN: Patient with right diabetic foot infection in this patient who did have a right foot osteomyelitis at the base of the fifth toe. Culture with Staphylococcus epidermidis. Patient is currently covered with daptomycin. Continue with local care with [facility] and admitted most for socially and more likely will need placement. Continue supportive care. MMODL / IJN: [id number] /
[2019-06-26 06:48] LABS: Glucose,Whole Blood 92 mg/dL (75-99)
[2019-06-26 07:04] LABS: Basophils % (A) 1 %; Eosinophils # (A) 0.1 k/uL (0-0.7); Eosinophils % (A) 2 %; HCT 25.4 % (34.0-46.0); Lymphocytes # (A) 1.3 k/uL (1.0-4.8); Lymphocytes % (A) 37 %; MCH 30.2 pg (25.0-35.0); MCHC 31.5 g/dL (31.0-37.0); MCV 95.8 fL (80.0-100.0); Mean Platelet Volume 7.9; Monocytes # (A) 0.3 k/uL (0-1.0); Monocytes % (A) 7 %; Neutrophils # (A) 1.8 k/uL (1.3-7.7); Neutrophils % (A) 51 %; Platelet Count 226 k/uL (150-450); RBC 2.65 m/uL (3.80-5.40); RDW 15.4 % (11.5-15.5); WBC 3.5 k/uL (3.8-10.6)
[2019-06-26 07:21] LABS: Albumin 2.6 g/dL (3.5-5.0); Calcium 8.6 mg/dL (8.4-10.2); Potassium 4.5 mmol/L (3.5-5.1); Total Bilirubin 0.3 mg/dL (0.2-1.3); Total Protein 5.6 g/dL (6.3-8.2)
[2019-06-26] MEDS: INSULIN ASPART (NovoLOG) 100 UNIT/ML VIAL SQ SCH ×3 (08:46→17:43)
[2019-06-26] MEDS: DAPTOmycin 350 MG in SODIUM CHLORIDE 0.9% 50 ML IVPB SCH (08:51)
[2019-06-26] MEDS: IPRATROPIUM-ALBUTEROL 3 ML NEB INHALATION SCH ×4 (09:12→22:14)
[2019-06-26] MEDS: ENOXAPARIN 40 MG/0.4 ML SYRINGE SQ SCH (09:20)
[2019-06-26] MEDS: QUEtiapine 25 MG TAB PO SCH ×2 (09:20→21:17)
[2019-06-26] MEDS: DULoxetine HCL 60 MG CAPSULE.DR PO SCH (09:20)
[2019-06-26] MEDS: FERROUS SULFATE 325 MG TAB PO SCH (09:20)
[2019-06-26] MEDS: VALPROIC ACID ORAL SOLN 250 MG/5 ML CUP PO SCH (09:20)
[2019-06-26] MEDS: FAMOTIDINE 20 MG TAB PO SCH (09:20)
[2019-06-26] MEDS: ASPIRIN 81 MG PO SCH (09:20)
[2019-06-26 11:49] LABS: Glucose,Whole Blood 234 mg/dL (75-99)
[2019-06-26] MEDS: HYDROcodone/APAP 10-325MG 1 EACH TAB PO PRN (12:23)
--- NOTE | 2019-06-26 14:17 | P.PN ---
Subjective Progress Note Date: 06/26/19 This is a 58-year-old female patient who presented to the ER with concerns of failure to thrive and concerns of living conditions per Visiting nurse. Patient was recently discharged on IV antibiotics for concerns for right foot osteomyelitis. Patient is also a known brittle diabetic. Additional medical history includes asthma, CAD, chest pain, heart failure, COPD, CVA, diabetes mellitus, deep vein thrombosis, GERD, hyperlipidemia, hypertension, osteoarthritis, renal disease and reoccurring extremity wounds due to diabetes cells and wound care clinic. According to ER report patient was covered in feces and poor living conditions were noted in house. Per patient she reports that she lives with caregiver. Patient was also noted to have some wheezing per ER admitted for COPD exacerbation. At this time will consult infectious disease for ongoing IV antibiotic use. Social work services also consulted to assess living condition and plan for discharge. Patient was started on Solu-Medrol for COPD exacerbation and DuoNeb breathing treatments will order chest x-ray. At this time patient denies chest pain or shortness of breath. Patient denies nausea vomiting or diarrhea. Patient denies any urinary burning or frequency On 06/24/2019 patient was seen and examined on the medical floor she is alert and oriented 3 in no apparent distress she is complaining of occasional pain in her lower extremity otherwise she denies any complaints there is no fever no chills no headache no dizziness no chest pain no shortness of breath no cough no nausea or vomiting no abdominal pain no diarrhea no burning with urination no frequency or urgency no hematuria On 06/25/2019 patient was seen and examined on the medical floor she states she is doing well she denies any complaints at this time there is no fever or chills no headache or dizziness no chest pain no shortness of breath no cough no nausea or vomiting no abdominal pain no diarrhem burning with urination no frequency or urgency and no hematuria and in the lower extremity is well-controlled at this time On 06/26/2019 patient is alert and oriented 3. Patient denies any complaints there is nausea vomiting or diarrhea. Denies chest pain or shortness breath. Patient denies any urinary burning or frequency. Per social work discussion was held with legal gaurdian and okay to discharge to [facility] for IV antibiotics. [facility] for IV antibiotics. Objective - Vital Signs Vital signs: Vital Signs Temp 97.9 F 06/26/19 07:00 Pulse 92 06/26/19 13:12 Resp 16 06/26/19 07:00 BP 92/53 06/26/19 07:00 Pulse Ox 93 L 06/26/19 07:00 Intake & Output 06/25/19 06/26/19 06/26/19 18:59 06:59 18:59 Intake Total 500 480 Balance 500 480 Intake: Intake, IV Titration 50 Amount DAPTOmycin 350 mg In 50 Sodium Chloride 0.9% 50 ml @ 100 mls/hr IVPB Q24HR [facility] Rx#:[id number] Oral 450 480 Other: Voiding Method Diaper Diaper Incontinent Incontinent # Voids 1 2 - Exam In general patient is alert and oriented 3 in no apparent distress HEENT head normocephalic and atraumatic Neck is supple no JVD no goiter no lymphadenopathy Lungs diminished bilaterally no crackles no wheezing Heart regular rate and rhythm S1-S2, no rub or gallop Abdomen is soft nontender nondistended positive bowel sounds no hepatos plenomegaly Extremities no edema. Right foot dressing place clean dry and intact Neuro no acute gross focal neurological deficit, residual weakness from previous stroke and changed - Labs CBC & Chem 7: 06/26/19 06:34 06/26/19 06:34 Labs: Abnormal Lab Results - Last 24 Hours (Table) 06/25/19 06/25/19 06/26/19 Range/Units 16:55 19:05 02:12 WBC (3.8-10.6) k/uL RBC (3.80-5.40) m/uL Hgb (11.4-16.0) gm/dL Hct (34.0-46.0) % Carbon Dioxide (22-30) mmol/L BUN (7-17) mg/dL POC Glucose (mg/dL) 225 H 242 H 137 H (75-99) mg/dL Total Protein (6.3-8.2) g/dL Albumin (3.5-5.0) g/dL 06/26/19 06/26/19 06/26/19 Range/Units 05:31 06:34 06:34 WBC 3.5 L (3.8-10.6) k/uL RBC 2.65 L (3.80-5.40) m/uL Hgb 8.0 L (11.4-16.0) gm/dL Hct 25.4 L (34.0-46.0) % Carbon Dioxide 34 H (22-30) mmol/L BUN 25 H (7-17) mg/dL POC Glucose (mg/dL) 58 L (75-99) mg/dL Total Protein 5.6 L (6.3-8.2) g/dL Albumin 2.6 L (3.5-5.0) g/dL 06/26/19 Range/Units 11:46 WBC (3.8-10.6) k/uL RBC (3.80-5.40) m/uL Hgb (11.4-16.0) gm/dL Hct (34.0-46.0) % Carbon Dioxide (22-30) mmol/L BUN (7-17) mg/dL POC Glucose (mg/dL) 234 H (75-99) mg/dL Total Protein (6.3-8.2) g/dL Albumin (3.5-5.0) g/dL Microbiology - Last 24 Hours (Table) 06/22/19 22:45 Blood Culture - Preliminary Blood No Growth after 72 hours Assessment and Plan Assessment: 1. Failure to thrive with concerns of living conditions. Social work services have been consulted to assess discharge planning and home environment 2. Right foot wound infection with osteomyelitis. Patient recently underwent debridement with Dr. Egan. Patient recently discharged on IV daptomycin per ID. Infectious disease services have been consulted. Daptomycin has been resumed 3. Acute COPD exacerbation. Patient started Solu-Medrol DuoNeb breathing treatments chest x-ray has been ordered 4. Type 1 diabetes mellitus known brittle diabetic with noncompliance. Patient's home dose of Levemir and sliding scale insulin has been ordered 5. History of peripheral vascular disease 6. History of essential hypertension 7. History of hyperlipidemia 8. History of congestive heart failure 9. History of coronary artery disease with previous history of angioplasty and stent placement DVT prophylaxis Lovenox. GI prophylaxis Pepcid Infectious disease oracle hyperion consultant continue daptomycin Social work services consulted Possible discharge to [facility] or [facility] I performed an examination of the patient and discussed their management with the Nurse Practitioner. I have reviewed the Nurse Practitioner's notes and agree with the documented findings and plan of care
[2019-06-26] MEDS: ALPRAZolam 1 MG TAB PO SCH ×2 (14:50→16:07)
[2019-06-26 16:42] LABS: Glucose,Whole Blood 219 mg/dL (75-99)
[2019-06-26 20:34] LABS: Glucose,Whole Blood 370 mg/dL (75-99)
[2019-06-26] MEDS: INSULIN DETEMIR (LEVEMIR) 100 UNIT/ML SYR SQ SCH (21:17)
[2019-06-26] MEDS: QUEtiapine 100 MG TAB PO SCH (21:17)
[2019-06-27] MEDS: ALPRAZolam 1 MG TAB PO SCH ×3 (01:09→17:07)
[2019-06-27 01:52] LABS: Glucose,Whole Blood 496 mg/dL (75-99)
--- NOTE | 2019-06-27 01:56 | PN ---
PROGRESS NOTE DATE OF SERVICE: 06/26/2019 REASON FOR FOLLOWUP: Right foot osteomyelitis. INTERVAL HISTORY: The patient is currently afebrile. Patient is breathing comfortably. The patient denies having any chest pain or cough. No nausea or vomiting. No abdominal pain or pain to the right foot area. EXAMINATION: Blood pressure is 100/60 with a pulse of 73, temperature 98.6. He is 92% on room air. General description is a middle-aged female lying in bed in no distress. Respiratory system: Unlabored breathing. Clear to auscultation anteriorly. Heart S1, S2. Regular rate and rhythm. ABDOMEN: Soft. No tenderness. EXTREMITIES: No edema of the feet. LABS: Hemoglobin of 8 with a white count of 3.5. BUN of 25, creatinine 0.9. DIAGNOSTIC IMPRESSION AND PLAN: Patient with right foot osteomyelitis in this patient with diabetic foot infection admitted to the hospital for possible placement because of condition. The patient is currently covered with daptomycin that will be continued and we will monitor clinical course closely. Continue supportive care. MMODL / IJN: [id number] /
[2019-06-27 06:44] LABS: Glucose,Whole Blood 288 mg/dL (75-99)
[2019-06-27] MEDS: FAMOTIDINE 20 MG TAB PO SCH (07:32)
[2019-06-27] MEDS: ENOXAPARIN 40 MG/0.4 ML SYRINGE SQ SCH (07:32)
[2019-06-27] MEDS: FERROUS SULFATE 325 MG TAB PO SCH (07:32)
[2019-06-27] MEDS: DAPTOmycin 350 MG in SODIUM CHLORIDE 0.9% 50 ML IVPB SCH (07:32)
[2019-06-27] MEDS: ASPIRIN 81 MG PO SCH (07:32)
[2019-06-27] MEDS: QUEtiapine 25 MG TAB PO SCH ×2 (07:32→20:35)
[2019-06-27] MEDS: INSULIN ASPART (NovoLOG) 100 UNIT/ML VIAL SQ SCH ×3 (07:33→17:05)
[2019-06-27] MEDS: VALPROIC ACID ORAL SOLN 250 MG/5 ML CUP PO SCH (07:33)
[2019-06-27] MEDS: DULoxetine HCL 60 MG CAPSULE.DR PO SCH (07:33)
[2019-06-27] MEDS: IPRATROPIUM-ALBUTEROL 3 ML NEB INHALATION SCH ×4 (08:30→19:15)
[2019-06-27 10:30] LABS: Basophils % (A) 1 %; Eosinophils % (A) 0 %; HCT 27.2 % (34.0-46.0); HGB 8.6 gm/dL (11.4-16.0); Lymphocytes # (A) 1.4 k/uL (1.0-4.8); Lymphocytes % (A) 21 %; MCH 30.1 pg (25.0-35.0); MCHC 31.4 g/dL (31.0-37.0); MCV 95.8 fL (80.0-100.0); Mean Platelet Volume 8.2; Monocytes # (A) 0.3 k/uL (0-1.0); Monocytes % (A) 5 %; Neutrophils # (A) 4.9 k/uL (1.3-7.7); Neutrophils % (A) 72 %; Platelet Count 251 k/uL (150-450); RBC 2.84 m/uL (3.80-5.40); RDW 15.2 % (11.5-15.5); WBC 6.7 k/uL (3.8-10.6)
[2019-06-27 10:35] LABS: Albumin 2.9 g/dL (3.5-5.0); Calcium 8.8 mg/dL (8.4-10.2); Magnesium 2.1 mg/dL (1.6-2.3); Total Bilirubin 0.3 mg/dL (0.2-1.3); Total Protein 6.2 g/dL (6.3-8.2)
[2019-06-27 11:51] LABS: Glucose,Whole Blood 242 mg/dL (75-99)
[2019-06-27 13:45] LABS: Glucose,Whole Blood 249 mg/dL (75-99)
--- NOTE | 2019-06-27 14:00 | CDI ---
Documentation Clarification Form Date: 06/27/2019 01:39:12 PM From: Amy Mark RN, CCDS Admit Date: 06/25/2019 12:52:00 PM Patient Name: Melva Jackson Visit Number: [id number] Discharge Date: ATTENTION: The Clinical Documentation Specialists (CDI) and [facility] Coding Staff appreciate your assistance in clarifying documentation. Please respond to the clarification below the line at the bottom and electronically sign. The CDI & [facility] Coding staff will review the response and follow-up if needed. Please note: Queries are made part of the Legal Health Record. If you have any questions, please contact the author of this message via ITS. Dr. Sherlyn Chen Malnutrition and failure to thrive has been documented in ER evaluation on 06/22/19. Failure to thrive is in the H/P and subsequent progress notes and further clarification is needed. History/Risk Factors: Right foot wound infection with osteomyelitis, Diabetes mellitus, CVA with left sided paralysis, Wheel chair bound, Clinical Indicators: 58-year-old female found with unsafe living conditions, weakness, malnutrition, failure to thrive per ER evaluation on admission. Labs: 06/22/19) Glucose 269, 247, 521, HGB 8.8, HCT 27.4, Total protein 6.1, albumin 3.0 Current BMI: 23.2 Insufficient energy intake: Good, well nourished Treatment: Dietary Consult: Yes; Altered nutrition related laboratory values, glycemic labs. Dietary diagnostic statement: Suspected poor DM control BANQUET MANAGER: unable to care for self at home glucose = 426 on admit Supplements: Glucernia BID, Carbohydrate-modified diet Monitor supplement intake, glucemic labs In your professional opinion, can you please clarify if these findings signify one of the following conditions? Mild Protein-Calorie Malnutrition Moderate Protein-Calorie Malnutrition Other condition, please specify Unable to determine (Last Revision: November 2018) Mild protein-calorie malnutrition MTDD
--- NOTE | 2019-06-27 14:34 | P.PN ---
Subjective Progress Note Date: 06/27/19 This is a 58-year-old female patient who presented to the ER with concerns of failure to thrive and concerns of living conditions per Visiting nurse. Patient was recently discharged on IV antibiotics for concerns for right foot osteomyelitis. Patient is also a known brittle diabetic. Additional medical history includes asthma, CAD, chest pain, heart failure, COPD, CVA, diabetes mellitus, deep vein thrombosis, GERD, hyperlipidemia, hypertension, osteoarthritis, renal disease and reoccurring extremity wounds due to diabetes cells and wound care clinic. According to ER report patient was covered in feces and poor living conditions were noted in house. Per patient she reports that she lives with caregiver. Patient was also noted to have some wheezing per ER admitted for COPD exacerbation. At this time will consult infectious disease for ongoing IV antibiotic use. Social work services also consulted to assess living condition and plan for discharge. Patient was started on Solu-Medrol for COPD exacerbation and DuoNeb breathing treatments will order chest x-ray. At this time patient denies chest pain or shortness of breath. Patient denies nausea vomiting or diarrhea. Patient denies any urinary burning or frequency On 06/24/2019 patient was seen and examined on the medical floor she is alert and oriented 3 in no apparent distress she is complaining of occasional pain in her lower extremity otherwise she denies any complaints there is no fever no chills no headache no dizziness no chest pain no shortness of breath no cough no nausea or vomiting no abdominal pain no diarrhea no burning with urination no frequency or urgency no hematuria On 06/25/2019 patient was seen and examined on the medical floor she states she is doing well she denies any complaints at this time there is no fever or chills no headache or dizziness no chest pain no shortness of breath no cough no nausea or vomiting no abdominal pain no diarrhem burning with urination no frequency or urgency and no hematuria and in the lower extremity is well-controlled at this time On 06/26/2019 patient is alert and oriented 3. Patient denies any complaints there is nausea vomiting or diarrhea. Denies chest pain or shortness breath. Patient denies any urinary burning or frequency. Per social work discussion was held with legal gaurdian and okay to discharge to [facility] for IV antibiotics. [facility] or [facility] for IV antibiotics. On 06/27/2019 patient is alert and oriented 3. Patient is sleepy but does wake up to follow commands. Waiting on insurance coverage for rehab in regards to antibiotics. Possible [facility] discharge. patient denies chest pain or shortness of breath. denies any urinary and frequency. Denies nausea vomiting or diarrhea patient remains on daptomycin IV antibiotics Objective - Vital Signs Vital signs: Vital Signs Temp 97.9 F 06/27/19 07:00 Pulse 86 06/27/19 11:58 Resp 17 06/27/19 08:00 BP 125/58 06/27/19 07:00 Pulse Ox 96 06/27/19 07:00 Intake & Output 06/26/19 06/27/19 06/27/19 18:59 06:59 18:59 Other: Voiding Method Diaper Diaper Incontinent Incontinent # Voids 2 1 - Exam In general patient is alert and oriented 3 in no apparent distress HEENT head normocephalic and atraumatic Neck is supple no JVD no goiter no lymphadenopathy Lungs diminished bilaterally no crackles no wheezing Heart regular rate and rhythm S1-S2, no rub or gallop Abdomen is soft nontender nondistended positive bowel sounds no hepatosplenomegaly Extremities no edema. Right foot dressing place clean dry and intact Neuro no acute gross focal neurological deficit, residual weakness from previous stroke and changed - Labs CBC & Chem 7: 06/27/19 09:34 06/27/19 09:34 Labs: Abnormal Lab Results - Last 24 Hours (Table) 06/26/19 06/26/19 06/27/19 Range/Units 16:38 20:21 01:40 RBC (3.80-5.40) m/uL Hgb (11.4-16.0) gm/dL Hct (34.0-46.0) % Carbon Dioxide (22-30) mmol/L BUN (7-17) mg/dL Creatinine (0.52-1.04) mg/dL Glucose (74-99) mg/dL POC Glucose (mg/dL) 219 H 370 H 496 H (75-99) mg/dL Total Protein (6.3-8.2) g/dL Albumin (3.5-5.0) g/dL 06/27/19 06/27/19 06/27/19 Range/Units 06:32 09:34 09:34 RBC 2.84 L (3.80-5.40) m/uL Hgb 8.6 L (11.4-16.0) gm/dL Hct 27.2 L (34.0-46.0) % Carbon Dioxide 31 H (22-30) mmol/L BUN 30 H (7-17) mg/dL Creatinine 1.08 H (0.52-1.04) mg/dL Glucose 229 H (74-99) mg/dL POC Glucose (mg/dL) 288 H (75-99) mg/dL Total Protein 6.2 L (6.3-8.2) g/dL Albumin 2.9 L (3.5-5.0) g/dL 06/27/19 06/27/19 Range/Units 11:39 13:33 RBC (3.80-5.40) m/uL Hgb (11.4-16.0) gm/dL Hct (34.0-46.0) % Carbon Dioxide (22-30) mmol/L BUN (7-17) mg/dL Creatinine (0.52-1.04) mg/dL Glucose (74-99) mg/dL POC Glucose (mg/dL) 242 H 249 H (75-99) mg/dL Total Protein (6.3-8.2) g/dL Albumin (3.5-5.0) g/dL Microbiology - Last 24 Hours (Table) 06/22/19 22:45 Blood Culture - Preliminary Blood No Growth after 96 hours Assessment and Plan Assessment: 1. Failure to thrive with concerns of living conditions. Social work services have been consulted to assess discharge planning and home environment 2. Right foot wound infection with osteomyelitis. Patient recently underwent debridement with Dr. Egan. Patient recently discharged on IV daptomycin per ID. Infectious disease services have been consulted. Daptomycin has been resumed 3. Acute COPD exacerbation. Patient started Solu-Medrol DuoNeb breathing joanna tments chest x-ray has been ordered 4. Type 1 diabetes mellitus known brittle diabetic with noncompliance. Patient's home dose of Levemir and sliding scale insulin has been ordered 5. History of peripheral vascular disease 6. History of essential hypertension 7. History of hyperlipidemia 8. History of congestive heart failure 9. History of coronary artery disease with previous history of angioplasty and stent placement DVT prophylaxis Lovenox. GI prophylaxis Pepcid Infectious disease oracle agile plm consultant continue daptomycin Social work services consulted Possible discharge to [facility] or [facility] I performed an examination of the patient and discussed their management with the Nurse Practitioner. I have reviewed the Nurse Practitioner's notes and agree with the documented findings and plan of care
[2019-06-27 17:01] LABS: Glucose,Whole Blood 402 mg/dL (75-99)
[2019-06-27 20:24] LABS: Glucose,Whole Blood 454 mg/dL (75-99)
[2019-06-27] MEDS: INSULIN DETEMIR (LEVEMIR) 100 UNIT/ML SYR SQ SCH (20:35)
[2019-06-27] MEDS: QUEtiapine 100 MG TAB PO SCH (20:35)
--- NOTE | 2019-06-27 23:22 | PN ---
PROGRESS NOTE DATE OF SERVICE: 06/27/2019 REASON FOR FOLLOWUP: Right foot wound and osteomyelitis. INTERVAL HISTORY: The patient is currently afebrile. The patient is breathing comfortably. Denies having any chest pain or any cough. No nausea, vomiting. No abdominal pain. No diarrhea. PHYSICAL EXAMINATION: The blood pressure is 156/81 with a pulse of 96, temperature 98. She is 96% on room air. General description is a middle-aged female lying in bed in no distress. Respiratory system: Unlabored breathing, clear to auscultation anteriorly. Heart S1, S2. Regular rate and rhythm. ABDOMEN: Soft. Right foot wound base still has some slough tissue. No surrounding redness and minimal drainage. LABS: Creatinine 1.08. DIAGNOSTIC IMPRESSION AND PLAN: Patient with right foot diabetic foot wound with underlying osteomyelitis to the foot. Local care to continue with the Medihoney followed by moist dressing to keep the area off the pressure and continue with tobramycin. Continue supportive care. Aquacel Silver dressing and continue with supportive care. MMODL / IJN: [id number] /
[2019-06-28 00:05] LABS: Glucose,Whole Blood 305 mg/dL (75-99)
[2019-06-28] MEDS: ALPRAZolam 1 MG TAB PO SCH ×4 (00:32→23:19)
[2019-06-28 01:48] LABS: Glucose,Whole Blood 251 mg/dL (75-99)
[2019-06-28 07:03] LABS: Glucose,Whole Blood 139 mg/dL (75-99)
[2019-06-28] MEDS: INSULIN ASPART (NovoLOG) 100 UNIT/ML VIAL SQ SCH ×3 (07:20→17:16)
[2019-06-28] MEDS: QUEtiapine 25 MG TAB PO SCH ×2 (07:21→20:49)
[2019-06-28] MEDS: ASPIRIN 81 MG PO SCH (07:21)
[2019-06-28] MEDS: VALPROIC ACID ORAL SOLN 250 MG/5 ML CUP PO SCH (07:21)
[2019-06-28] MEDS: FERROUS SULFATE 325 MG TAB PO SCH (07:21)
[2019-06-28] MEDS: FAMOTIDINE 20 MG TAB PO SCH (07:21)
[2019-06-28] MEDS: ENOXAPARIN 40 MG/0.4 ML SYRINGE SQ SCH (07:21)
[2019-06-28] MEDS: DULoxetine HCL 60 MG CAPSULE.DR PO SCH (07:21)
[2019-06-28] MEDS: DAPTOmycin 350 MG in SODIUM CHLORIDE 0.9% 50 ML IVPB SCH (07:24)
[2019-06-28] MEDS: IPRATROPIUM-ALBUTEROL 3 ML NEB INHALATION SCH ×4 (08:15→19:49)
[2019-06-28 09:12] LABS: Albumin 2.8 g/dL (3.5-5.0); Potassium 4.5 mmol/L (3.5-5.1); Total Bilirubin 0.3 mg/dL (0.2-1.3)
[2019-06-28 09:20] LABS: Basophils % (A) 0 %; Eosinophils # (A) 0.1 k/uL (0-0.7); Eosinophils % (A) 2 %; HCT 27.4 % (34.0-46.0); HGB 8.2 gm/dL (11.4-16.0); Hypochromasia Slight; Lymphocytes # (A) 1.7 k/uL (1.0-4.8); Lymphocytes % (A) 37 %; MCV 96.7 fL (80.0-100.0); Monocytes # (A) 0.3 k/uL (0-1.0); Monocytes % (A) 6 %; Neutrophils # (A) 2.5 k/uL (1.3-7.7); Neutrophils % (A) 54 %; Platelet Count 292 k/uL (150-450); RBC 2.84 m/uL (3.80-5.40); RDW 15.1 % (11.5-15.5); WBC 4.6 k/uL (3.8-10.6)
[2019-06-28 11:49] LABS: Glucose,Whole Blood 282 mg/dL (75-99)
--- NOTE | 2019-06-28 12:57 | P.PN ---
Subjective Progress Note Date: 06/28/19 This is a 58-year-old female patient who presented to the ER with concerns of failure to thrive and concerns of living conditions per Visiting nurse. Patient was recently discharged on IV antibiotics for concerns for right foot osteomyelitis. Patient is also a known brittle diabetic. Additional medical history includes asthma, CAD, chest pain, heart failure, COPD, CVA, diabetes mellitus, deep vein thrombosis, GERD, hyperlipidemia, hypertension, osteoarthritis, renal disease and reoccurring extremity wounds due to diabetes cells and wound care clinic. According to ER report patient was covered in feces and poor living conditions were noted in house. Per patient she reports that she lives with caregiver. Patient was also noted to have some wheezing per ER admitted for COPD exacerbation. At this time will consult infectious disease for ongoing IV antibiotic use. Social work services also consulted to assess living condition and plan for discharge. Patient was started on Solu-Medrol for COPD exacerbation and DuoNeb breathing treatments will order chest x-ray. At this time patient denies chest pain or shortness of breath. Patient denies nausea vomiting or diarrhea. Patient denies any urinary burning or frequency On 06/24/2019 patient was seen and examined on the medical floor she is alert and oriented 3 in no apparent distress she is complaining of occasional pain in her lower extremity otherwise she denies any complaints there is no fever no chills no headache no dizziness no chest pain no shortness of breath no cough no nausea or vomiting no abdominal pain no diarrhea no burning with urination no frequency or urgency no hematuria On 06/25/2019 patient was seen and examined on the medical floor she states she is doing well she denies any complaints at this time there is no fever or chills no headache or dizziness no chest pain no shortness of breath no cough no nausea or vomiting no abdominal pain no diarrhem burning with urination no frequency or urgency and no hematuria and in the lower extremity is well-controlled at this time On 06/26/2019 patient is alert and oriented 3. Patient denies any complaints there is nausea vomiting or diarrhea. Denies chest pain or shortness breath. Patient denies any urinary burning or frequency. Per social work discussion was held with legal gaurdian and [facility]. [facility] or [facility] for IV antibiotics. On 06/27/2019 patient is alert and oriented 3. Patient is sleepy but does wake up to follow commands. Waiting on insurance coverage for rehab in regards to antibiotics. Possible [facility] discharge. patient denies chest pain or shortness of breath. denies any urinary and frequency. Denies nausea vomiting or diarrhea patient remains on daptomycin IV antibiotics On 06/28/2019 patient is alert and oriented 3. Patient denies any complaints. Patient denies chest pain or shortness breath. Patient denies nausea vomiting or diarrhea. Patient denies any urinary burning or frequency. Did discuss case with infectious disease patient will acquire daptomycin for approximately 30 more days at discharge social work working on discharge planning Objective - Vital Signs Vital signs: Vital Signs Temp 98.2 F 06/28/19 07:00 Pulse 80 06/28/19 11:59 Resp 17 06/28/19 07:24 BP 103/71 06/28/19 07:00 Pulse Ox 94 L 06/28/19 07:00 Intake & Output 06/27/19 06/28/19 06/28/19 18:59 06:59 18:59 Intake Total 100 Balance 100 Intake: Intake, IV Titration 50 Amount DAPTOmycin 350 mg In 50 Sodium Chloride 0.9% 50 ml @ 100 mls/hr IVPB Q24HR [facility] Rx#:[id number] Oral 50 Other: Voiding Method Diaper Diaper Diaper Incontinent Incontinent Incontinent # Voids 1 - Exam In general patient is alert and oriented 3 in no apparent distress HEENT head normocephalic and atraumatic Neck is supple no JVD no goiter no lymphadenopathy Lungs diminished bilaterally no crackles no wheezing Heart regular rate and rhythm S1-S2, no rub or gallop Abdomen is soft nontender nondistended positive bowel sounds no hepatosplenomegaly Extremities no edema. Right foot dressing place clean dry and intact Neuro no acute gross focal neurological deficit, residual weakness from previous stroke and changed - Labs CBC & Chem 7: 06/28/19 08:26 06/28/19 08:26 Labs: Abnormal Lab Results - Last 24 Hours (Table) 06/27/19 06/27/19 06/27/19 Range/Units 13:33 16:49 20:12 RBC (3.80-5.40) m/uL Hgb (11.4-16.0) gm/dL Hct (34.0-46.0) % MCHC (31.0-37.0) g/dL Carbon Dioxide (22-30) mmol/L BUN (7-17) mg/dL Glucose (74-99) mg/dL POC Glucose (mg/dL) 249 H 402 H 454 H (75-99) mg/dL Total Protein (6.3-8.2) g/dL Albumin (3.5-5.0) g/dL 06/27/19 06/28/19 06/28/19 Range/Units 23:54 01:36 06:51 RBC (3.80-5.40) m/uL Hgb (11.4-16.0) gm/dL Hct (34.0-46.0) % MCHC (31.0-37.0) g/dL Carbon Dioxide (22-30) mmol/L BUN (7-17) mg/dL Glucose (74-99) mg/dL POC Glucose (mg/dL) 305 H 251 H 139 H (75-99) mg/dL Total Protein (6.3-8.2) g/dL Albumin (3.5-5.0) g/dL 06/28/19 06/28/19 06/28/19 Range/Units 08:26 08:26 11:46 RBC 2.84 L (3.80-5.40) m/uL Hgb 8.2 L (11.4-16.0) gm/dL Hct 27.4 L (34.0-46.0) % MCHC 30.0 L (31.0-37.0) g/dL Carbon Dioxide 34 H (22-30) mmol/L BUN 27 H (7-17) mg/dL Glucose 164 H (74-99) mg/dL POC Glucose (mg/dL) 282 H (75-99) mg/dL Total Protein 6.0 L (6.3-8.2) g/dL Albumin 2.8 L (3.5-5.0) g/dL Microbiology - Last 24 Hours (Table) 06/22/19 22:45 Blood Culture - Preliminary Blood No Growth after 120 hours Assessment and Plan Assessment: 1. Failure to thrive with concerns of living conditions. Social work services have been consulted to assess discharge planning and home environment 2. Right foot wound infection with osteomyelitis. Patient recently underwent debridement with Dr. Denclau. Patient recently discharged on IV daptomycin per ID. Infectious disease services have been consulted. Daptomycin has been resumed 3. Acute COPD exacerbation. Patient started Solu-Medrol DuoNeb breathing treatments chest x-ray has been ordered 4. Type 1 diabetes mellitus known brittle diabetic with noncompliance. Patient's home dose of Levemir and sliding scale insulin has been ordered 5. History of peripheral vascular disease 6. History of essential hypertension 7. History of hyperlipidemia 8. History of congestive heart failure 9. History of coronary artery disease with previous history of angioplasty and stent placement DVT prophylaxis Lovenox. GI prophylaxis Pepcid Infectious disease senior solutions consultant continue daptomycin Social work services consulted Possible discharge to [facility] or [facility] I performed an examination of the patient and discussed their management with the Nurse Practitioner. I have reviewed the Nurse Practitioner's notes and agree with the documented findings and plan of care
--- NOTE | 2019-06-28 14:43 | PN ---
PROGRESS NOTE DATE OF SERVICE: 06/28/2019 REASON FOR FOLLOWUP: Right diabetic foot wound with an underlying osteomyelitis. INTERVAL HISTORY: The patient is currently afebrile. Patient is breathing comfortably. No chest pain. No cough. No nausea, no vomiting. No abdominal pain. Pain to the right foot area, currently waiting for placement. PHYSICAL EXAMINATION: Blood pressure 103/71 with a pulse of 83, temperature 98.2, she is 94% on room air. General description is a middle-aged female, lying in bed in no distress. RESPIRATORY SYSTEM: Unlabored breathing, clear to auscultation anteriorly. HEART: S1, S2. Regular rate and rhythm. ABDOMEN: Soft, no tenderness. Right foot is currently dressed up. No obvious drainage on the dressing. LABS: Hemoglobin 8.1, white count of 4.7, BUN of 27, creatinine 1.04. Blood cultures have been negative. DIAGNOSTIC IMPRESSION AND PLAN: Patient with right diabetic foot wound with underlying osteomyelitis. The patient is currently covered with daptomycin, will be continued to finish a 6-week course of therapy. Local care with Medihoney moist dressing, keep the area off the pressure. Continue supportive care. MMODL / IJN: [id number] /
[2019-06-28 17:26] LABS: Glucose,Whole Blood 300 mg/dL (75-99)
[2019-06-28 20:27] LABS: Glucose,Whole Blood 240 mg/dL (75-99)
[2019-06-28] MEDS: INSULIN DETEMIR (LEVEMIR) 100 UNIT/ML SYR SQ SCH (20:49)
[2019-06-28] MEDS: QUEtiapine 100 MG TAB PO SCH (20:49)
[2019-06-28 20:54] LABS: Hemoglobin A1C 8.5 % (4.0-6.0)
[2019-06-29 02:01] LABS: Glucose,Whole Blood 183 mg/dL (75-99)
[2019-06-29 07:09] LABS: Glucose,Whole Blood 127 mg/dL (75-99)
[2019-06-29 07:53] LABS: Glucose,Whole Blood 123 mg/dL (75-99)
[2019-06-29 08:03] LABS: Basophils % (A) 1 %; Eosinophils # (A) 0.1 k/uL (0-0.7); Eosinophils % (A) 2 %; HGB 8.1 gm/dL (11.4-16.0); Lymphocytes # (A) 1.4 k/uL (1.0-4.8); Lymphocytes % (A) 32 %; MCH 29.9 pg (25.0-35.0); MCHC 31.2 g/dL (31.0-37.0); MCV 95.7 fL (80.0-100.0); Mean Platelet Volume 7.8; Monocytes # (A) 0.3 k/uL (0-1.0); Monocytes % (A) 6 %; Neutrophils # (A) 2.4 k/uL (1.3-7.7); Neutrophils % (A) 57 %; Platelet Count 287 k/uL (150-450); RBC 2.72 m/uL (3.80-5.40); RDW 15.2 % (11.5-15.5); WBC 4.2 k/uL (3.8-10.6)
[2019-06-29 08:25] LABS: Albumin 2.9 g/dL (3.5-5.0); Potassium 4.6 mmol/L (3.5-5.1); Total Bilirubin 0.4 mg/dL (0.2-1.3); Total Protein 6.2 g/dL (6.3-8.2)
[2019-06-29] MEDS: IPRATROPIUM-ALBUTEROL 3 ML NEB INHALATION SCH ×4 (08:45→19:29)
[2019-06-29] MEDS: INSULIN ASPART (NovoLOG) 100 UNIT/ML VIAL SQ SCH ×3 (08:53→17:15)
[2019-06-29] MEDS: ALPRAZolam 1 MG TAB PO SCH (08:55)
[2019-06-29] MEDS: QUEtiapine 25 MG TAB PO SCH (08:57)
[2019-06-29 09:54] LABS: Glucose,Whole Blood 170 mg/dL (75-99)
[2019-06-29] MEDS ORDERED: ALPRAZolam 0.5 MG TAB PO PRN (09:55)
[2019-06-29] MEDS: ASPIRIN 81 MG PO SCH (09:57)
[2019-06-29] MEDS: DULoxetine HCL 60 MG CAPSULE.DR PO SCH (09:57)
[2019-06-29] MEDS: ENOXAPARIN 40 MG/0.4 ML SYRINGE SQ SCH (09:57)
[2019-06-29] MEDS: FERROUS SULFATE 325 MG TAB PO SCH (09:58)
[2019-06-29] MEDS: FAMOTIDINE 20 MG TAB PO SCH (09:58)
[2019-06-29] MEDS: VALPROIC ACID ORAL SOLN 250 MG/5 ML CUP PO SCH (10:14)
[2019-06-29] MEDS: DAPTOmycin 350 MG in SODIUM CHLORIDE 0.9% 50 ML IVPB SCH (10:37)
[2019-06-29 11:17] LABS: Glucose,Whole Blood 180 mg/dL (75-99)
[2019-06-29 11:56] LABS: Glucose,Whole Blood 179 mg/dL (75-99)
--- NOTE | 2019-06-29 13:01 | P.PN ---
Subjective Progress Note Date: 06/29/19 This is a 58-year-old female patient who presented to the ER with concerns of failure to thrive and concerns of living conditions per Visiting nurse. Patient was recently discharged on IV antibiotics for concerns for right foot osteomyelitis. Patient is also a known brittle diabetic. Additional medical history includes asthma, CAD, chest pain, heart failure, COPD, CVA, diabetes mellitus, deep vein thrombosis, GERD, hyperlipidemia, hypertension, osteoarthritis, renal disease and reoccurring extremity wounds due to diabetes cells and wound care clinic. According to ER report patient was covered in feces and poor living conditions were noted in house. Per patient she reports that she lives with caregiver. Patient was also noted to have some wheezing per ER admitted for COPD exacerbation. At this time will consult infectious disease for ongoing IV antibiotic use. Social work services also consulted to assess living condition and plan for discharge. Patient was started on Solu-Medrol for COPD exacerbation and DuoNeb breathing treatments will order chest x-ray. At this time patient denies chest pain or shortness of breath. Patient denies nausea vomiting or diarrhea. Patient denies any urinary burning or frequency On 06/24/2019 patient was seen and examined on the medical floor she is alert and oriented 3 in no apparent distress she is complaining of occasional pain in her lower extremity otherwise she denies any complaints there is no fever no chills no headache no dizziness no chest pain no shortness of breath no cough no nausea or vomiting no abdominal pain no diarrhea no burning with urination no frequency or urgency no hematuria On 06/25/2019 patient was seen and examined on the medical floor she states she is doing well she denies any complaints at this time there is no fever or chills no headache or dizziness no chest pain no shortness of breath no cough no nausea or vomiting no abdominal pain no diarrhem burning with urination no frequency or urgency and no hematuria and in the lower extremity is well-controlled at this time On 06/26/2019 patient is alert and oriented 3. Patient denies any complaints there is nausea vomiting or diarrhea. Denies chest pain or shortness breath. Patient denies any urinary burning or frequency. Per social work discussion was held with legal gaurdian and okay to discharge to [facility] for IV antibiotics. [facility] or [facility] for IV antibiotics. On 06/27/2019 patient is alert and oriented 3. Patient is sleepy but does wake up to follow commands. Waiting on insurance coverage for rehab in regards to antibiotics. Possible [facility] discharge. patient denies chest pain or shortness of breath. denies any urinary and frequency. Denies nausea vomiting or diarrhea patient remains on daptomycin IV antibiotics On 06/28/2019 patient is alert and oriented 3. Patient denies any complaints. Patient denies chest pain or shortness breath. Patient denies nausea vomiting or diarrhea. Patient denies any urinary burning or frequency. Did discuss case with infectious disease patient will acquire daptomycin for approximately 30 more days at discharge social work working on discharge planning On 06/29/2019 on examination patient was found to be lethargic. Patient does wake up to stimuli but quickly falls back to sleep. Notify nursing staff to check blood sugar and vitals. Patient's blood pressure low with systolic in the 70's. 500 mL bolus ordered. Medications currently on hold. Upon reexamination patient's blood pressure had improved but patient remains lethargic. At this time will order head CT, lactic acid, ABGs, ammonia level, EKG and troponins. Also consulted Dr. Mann per critical care did discuss case with critical care teams nurse practitioner. Vitals remained stable. Patient is on room air pulse ox 99. Objective - Vital Signs Vital signs: Vital Signs Temp 97.8 F 06/29/19 10:30 Pulse 74 06/29/19 12:30 Resp 16 06/29/19 10:30 BP 90/52 06/29/19 10:30 Pulse Ox 95 06/29/19 10:30 Intake & Output 06/28/19 06/29/19 06/29/19 18:59 06:59 18:59 Intake Total 50 1380 Balance 50 1380 Weight 57.606 kg Intake: Intake, IV Titration 50 Amount DAPTOmycin 350 mg In 50 Sodium Chloride 0.9% 50 ml @ 100 mls/hr IVPB Q24HR [facility] Rx#:[id number] Oral 1380 Other: Voiding Method Diaper Diaper Diaper Incontinent Incontinent Incontinent # Voids 3 - Exam In general patient is alert and oriented 3 in no apparent distress HEENT head normocephalic and atraumatic Neck is supple no JVD no goiter no lymphadenopathy Lungs diminished bilaterally no crackles no wheezing Heart regular rate and rhythm S1-S2, no rub or gallop Abdomen is soft nontender nondistended positive bowel sounds no hepatosplenomegaly Extremities no edema. Right foot dressing place clean dry and intact Neuro patient lethargic but does wake up to painful stimuli but does fall back to sleep and confusion at times residual weakness from previous stroke and changed - Labs CBC & Chem 7: 06/29/19 07:35 06/29/19 07:35 Labs: Abnormal Lab Results - Last 24 Hours (Table) 06/28/19 06/28/19 06/28/19 Range/Units 08:26 17:08 20:15 RBC (3.80-5.40) m/uL Hgb (11.4-16.0) gm/dL Hct (34.0-46.0) % Carbon Dioxide (22-30) mmol/L BUN (7-17) mg/dL Glucose (74-99) mg/dL POC Glucose (mg/dL) 300 H 240 H (75-99) mg/dL Hemoglobin A1c 8.5 H (4.0-6.0) % Total Protein (6.3-8.2) g/dL Albumin (3.5-5.0) g/dL 06/29/19 06/29/19 06/29/19 Range/Units 01:49 06:57 07:35 RBC 2.72 L (3.80-5.40) m/uL Hgb 8.1 L (11.4-16.0) gm/dL Hct 26.0 L (34.0-46.0) % Carbon Dioxide (22-30) mmol/L BUN (7-17) mg/dL Glucose (74-99) mg/dL POC Glucose (mg/dL) 183 H 127 H (75-99) mg/dL Hemoglobin A1c (4.0-6.0) % Total Protein (6.3-8.2) g/dL Albumin (3.5-5.0) g/dL 06/29/19 06/29/19 06/29/19 Range/Units 07:35 07:42 09:43 RBC (3.80-5.40) m/uL Hgb (11.4-16.0) gm/dL Hct (34.0-46.0) % Carbon Dioxide 32 H (22-30) mmol/L BUN 23 H (7-17) mg/dL Glucose 117 H (74-99) mg/dL POC Glucose (mg/dL) 123 H 170 H (75-99) mg/dL Hemoglobin A1c (4.0-6.0) % Total Protein 6.2 L (6.3-8.2) g/dL Albumin 2.9 L (3.5-5.0) g/dL 06/29/19 06/29/19 Range/Units 11:05 11:44 RBC (3.80-5.40) m/uL Hgb (11.4-16.0) gm/dL Hct (34.0-46.0) % Carbon Dioxide (22-30) mmol/L BUN (7-17) mg/dL Glucose (74-99) mg/dL POC Glucose (mg/dL) 180 H 179 H (75-99) mg/dL Hemoglobin A1c (4.0-6.0) % Total Protein (6.3-8.2) g/dL Albumin (3.5-5.0) g/dL Microbiology - Last 24 Hours (Table) 06/22/19 22:45 Blood Culture - Final Blood No Growth after 144 hours Assessment and Plan Assessment: 1. Failure to thrive with concerns of living conditions. Social work services have been consulted to assess discharge planning and home environment 2. Right foot wound infection with osteomyelitis. Patient recently underwent debridement with Dr. Egan. Patient recently discharged on IV daptomycin per ID. Infectious disease services have been consulted. Daptomycin has been resumed 3. Acute COPD exacerbation. Patient started Solu-Medrol DuoNeb breathing treatments chest x-ray has been ordered. Resolved 4. Type 1 diabetes mellitus known brittle diabetic with noncompliance. Patient's home dose of Levemir and sliding scale insulin has been ordered 5. History of peripheral vascular disease 6. History of essential hypertension 7. History of hyperlipidemia 8. History of congestive heart failure 9. History of coronary artery disease with previous history of angioplasty and stent placement 10. Altered mental status. Head CT will be ordered. ABGs, ammonia level and lactic acid ordered. Critical care consult placed. Did discuss case with critical care nurse practitioner. Narcotics and controlled substances currently on hold 11. Hypotension. Blood pressure systolic in the 70s. 500 mL bolus given blood pressure did improve. DVT prophylaxis Lovenox. GI prophylaxis Pepcid Infectious disease solution consultant continue daptomycin Social work services consulted Critical care service is consulted Possible discharge to [facility] or [facility] I performed an examination of the patient and discussed their management with the Nurse Practitioner. I have reviewed the Nurse Practitioner's notes and agree with the documented findings and plan of care
[2019-06-29 13:05] LABS: Ammonia <9 umol/L (<30)
--- NOTE | 2019-06-29 13:12 | XR ---
EXAMINATION TYPE: XR chest 1V DATE OF EXAM: 06/29/2019 COMPARISON: 06/23/2019 HISTORY: Chest pain TECHNIQUE: Single frontal view of the chest is obtained. FINDINGS: Right-sided PICC again terminates in the distal superior vena cava. Very trace left pleura l effusion blunts the costophrenic angle. Otherwise the lungs are clear. Cardiomediastinal silhouette is stable. No acute osseous pathology. IMPRESSION: New trace left pleural effusion blunting the costophrenic angle, otherwise the lungs are clear.
[2019-06-29 13:16] LABS: Lactic Acid, Venous 0.8 mmol/L (0.7-2.0)
--- NOTE | 2019-06-29 13:38 | P.CNPUL ---
History of Present Illness Consult date: 06/29/19 Chief complaint: Altered mentation History of present illness: This is a 58-year-old female patient was sent over to the hospital because of concerns from the visiting nurse. The patient has she has had diabetic foot ulcers and previous history of osteomyelitis and she had a recent discharge from the hospital on IV antibiotics due to concern of right foot osteomyelitis. She also has history of coronary artery disease, COPD, CVA, DVT, hypertension, hyperlipidemia, acid reflux, osteoarthritis, chronic kidney disease, recurring wounds/diabetic ulcers . Apparently, the patient was found at home and feces and poor living condition was noted at home. She apparently lives with a caregiver. This was noted that the patient was also having increased shortness of breath and she wasn't COPD exacerbation in time of admission. Social service s were also consulted on the case. Patient during this current hospital stay was started on COPD exacerbation treatment with accommodation bronchodilators and steroids. The patient denies having any chest pain. She denies any nausea vomiting abdominal pain or diarrhea and she denies having any dysuria fixed or urgency. Over the next few days, the patient was found to be alert and she was complaining of pain in the lower extremities and she was being considered to be discharged back to medical [place] or [facility] on the [place]. Subsequently, on on today's evaluation the patient was found to be having some altered mentation, sedated and slightly hypotensive with a systolic blood pressure 74 with a diastolic of 37. Note that the patient was taking daptomycin for right foot wound infection/osteomyelitis. The patient undergone debridement by Dr. Cadena. She was receiving daptomycin upon discharge from the recent admission and this was Resumed. Based on this hypotension, the patient was started on IV fluids and subsequently systolic blood pressure improved.. Repeat chest x-ray shows no acute abnormalities. A computed tomography scan of the brain was also ordered. I saw the patient the bedside. I noticed that she is easily arousable and she will follow commands and answer questions. One left unstimulated, she will gradually snows and go to sleep. She has obvious weakness in her left face and left upper extremity which is quite contracted related to previous CVA. She has osteomyelitis and open wounds in her right foot at the level of the anterior medial area and the lateral area and the base is covered with some purulent material. The patient has missing toes on the right foot. There is no surrounding cellulitis. There is no swelling in lower extremities. No reported cough. No reported shortness of breath. No significant tachycardia. She is given a half a liter bolus and his blood pressure is normalized. Review of Systems ROS unobtainable: due to mental status Constitutional: Reports daytime sleepiness, Reports weakness Eyes: denies as per HPI, denies blurred vision, denies bulging eye, denies decreased vision, denies diplopia, denies discharge, denies dry eye, denies irritation, denies itching, denies pain, denies photophobia, denies loss of peripheral vision, denies loss of vision, denies tunnel vision/blind spots Ears: deny: decreased hearing, ear discharge, earache, tinnitus Ears, nose, mouth and throat: Denies headache, Denies sore throat Breasts: absent: as per HPI Cardiovascular: Reports as per HPI Respiratory: Reports as per HPI Gastrointestinal: Reports as per HPI Genitourinary: Reports incomplete emptying Menstruation: Reports as per HPI Musculoskeletal: Reports gait dysfunction, Reports muscle weakness Musculoskeletal: absent: ankle pain, ankle stiffness, ankle swelling Integumentary: Reports wounds Neurological: Reports change in mentation, Reports gait dysfunction, Reports lack of coordination, Reports weakness (Left-sided weakness related to previous stroke) Endocrine: Reports fatigue Hematologic/Lymphatic: Reports as per HPI Allergic/Immunologic: Reports as per HPI Past Medical History Past Medical History: Asthma, Coronary Artery Disease (CAD), Chest Pain / Angina, Heart Failure, COPD, CVA/TIA, Diabetes Mellitus, Deep Vein Thrombosis (DVT), Eye Disorder, GERD/Reflux, Hyperlipidemia, Hypertension, Myocardial Infarction (ND), Neurologic Disorder, Osteoarthritis (OA), Pneumonia, Renal Disease Additional Past Medical History / Comment(s): IDDM (brittle), DKAs, neuropathy bilateral hands/feet, retinopathy bilateral eyes, cellulitis R foot, R great toe and 2nd toe infections/amputations, current wound R foot-being seen in [facility], renal failure, anemia, CVAs with L sided paralysis, headaches started after CVAs, brain lesions, DVT R axillae, low back pain, varicosities, seizure many years ago (2001), hypothyroid, constipation, bilateral tinnitis occasionally, sinus problems. Last Myocardial Infarction Date:: 2011 History of Any Multi-Drug Resistant Organisms: MRSA Date of last positivie culture/infection: 09/06/17 MDRO Source:: Right Foot Past Surgical History: Appendectomy, Section, Cholecystectomy, Heart Catheterization With Stent, Hysterectomy, Orthopedic Surgery Additional Past Surgical History / Comment(s): PCI with multiple stents, R great toe and 2nd toe amps, debridements R foot ulcer, L shoulder surgery to remove bone, bronchoscopy, EGD, colonoscopy, R arm port since removed, bilateral cataract removals/lens implants. Past Anesthesia/Blood Transfusion Reactions: No Reported Reaction Additional Past Anesthesia/Blood Transfusion Reaction / Comment(s): HX OF BLOOD TRANSFUSION- NO REACTION Date of Last Stent Placement:: July 2012 Past Psychological History: Anxiety, Bipolar, Depression Additional Psychological History / Comment(s): Pt has a legal guardian, Sera Rodriguez, who is pt's sister. Currently her legal guardian is hospitalized. Pt has a caregiver, No, who resides with her. Pt is wheelchair bound d/t CVA with L sided paralysis arm and leg. She has a shower chair and a glucometer. Her sister or caregiver drive her to [place]. Smoking Status: Former smoker Past Alcohol Use History: None Reported Additional Past Alcohol Use History / Comment(s): Pt started smoking in 1982 and quit in 2017. Using marijuana edibles occasionally but none for a "long time" Past Drug Use History: Marijuana Additional Drug Use History / Comment(s): using marijuana edibles - Past Family History Father Family Medical History: Unable to Obtain, Coronary Artery Disease (CAD), Diabetes Mellitus Mother Family Medical History: COPD Medications and Allergies Home Medications Medication Instructions Recorded Confirmed Type Albuterol Inhaler [Ventolin Hfa 2 puff INHALATION RT-Q4H PRN 07/19/15 06/22/19 History Inhaler] Famotidine [Pepcid] 20 mg PO DAILY 07/19/15 06/22/19 History Valproic Acid [Depakene] 250 mg PO DAILY 07/19/15 06/22/19 History Ergocalciferol [Vitamin D2 50,000 unit PO SA 03/05/16 06/22/19 History (DRISDOL)] HYDROcodone/APAP 10-325MG [Dryden 1 tab PO Q6H PRN 10/03/16 06/22/19 History 10-325] DULoxetine HCL [Cymbalta] 60 mg PO DAILY 02/16/17 06/22/19 History ALPRAZolam [Xanax] 1 mg PO Q8H 02/19/17 06/22/19 History Ondansetron [Zofran] 4 mg PO DAILY PRN 09/06/17 06/22/19 History Atorvastatin [Lipitor] 20 mg PO DAILY 12/28/18 06/22/19 History QUEtiapine FUMARATE [SEROquel] 25 mg PO BID 12/28/18 06/22/19 History QUEtiapine [SEROquel] 100 mg PO HS 12/28/18 06/22/19 History Vitamin B Complex With Vit C 1 tab PO DAILY 06/01/19 06/22/19 History Aspirin [Adult Low Dose Aspirin EC] 81 mg PO DAILY 06/09/19 06/22/19 History Ferrous Sulfate [Iron (65 MG 325 mg PO DAILY 06/09/19 06/22/19 History Elemental)] Insulin Glargine [Lantus] 12 unit SQ HS #0 06/15/19 06/22/19 Rx DAPTOmycin [Daptomycin] 350 mg IV DAILY #40 vial 06/16/19 06/22/19 Rx INSULIN ASPART (NovoLOG) [NovoLOG See Protocol SQ ACHS 06/22/19 06/22/19 History (formulary)] Allergies Allergy/AdvReac Type Severity Reaction Status Date / Time Barbiturates Allergy Rash/Hives Verified 06/22/19 22:34 cephalexin monohydrate Allergy Rash/Hives Verified 06/22/19 22:34 [From Keflex] morphine Allergy Rash/Hives Verified 06/22/19 22:34 Penicillins Allergy Rash/Hives Verified 06/22/19 22:34 phenobarbital Allergy Swelling Verified 06/22/19 22:34 venom-honey bee Allergy Swelling Verified 06/22/19 22:34 [bee venom (honey bee)] amlodipine besylate AdvReac Vomiting Verified 06/22/19 22:34 [From Norvasc] Physical Exam Vitals: Vital Signs Temp Pulse Pulse Resp BP Pulse Ox 06/29/19 12:30 74 06/29/19 12:20 71 06/29/19 10:30 97.8 F 68 16 90/52 95 06/29/19 09:00 81 06/29/19 08:49 97 06/29/19 08:45 74 06/29/19 07:45 97.6 F 91 16 74/37 98 06/29/19 07:14 97.9 F 78 15 104/57 98 06/29/19 01:08 97.7 F 113 H 16 125/71 95 06/28/19 20:01 104 H 06/28/19 19:50 110 H 06/28/19 19:07 98.5 F 108 H 16 135/75 98 06/28/19 16:00 91 06/28/19 15:47 91 06/28/19 15:00 98.0 F 94 18 162/89 99 Intake and Output 06/28/19 06/29/19 06/29/19 22:59 06:59 14:59 Intake Total 590 790 Balance 590 790 Intake: Oral 590 790 Other: Voiding Method Diaper Diaper Incontinent Incontinent # Voids 3 Weight 57.606 kg In general patient is alert when stimulated and she would open up her eyes and follows commands and answer questions appropriately. If left unstimulated, she will gradually drift back to sleep if she gets quite sedated. No neck stiffness. HEENT head normocephalic and atraumatic Neck is supple no JVD no goiter no lymphadenopathy Lungs diminished bilaterally no crackles no wheezing Heart regular rate and rhythm S1-S2, no rub or gallop Abdomen is soft nontender nondistended positive bowel sounds no hepatosplenomegaly Extremities no edema. Right foot has 2 missing toes. The patient has also large ulcers one in the lateral aspect of the right foot and the other one is in the anteromedial aspect of the right foot and the base is covered with some purulent material and is exposed. No cellulitis. Pulses are diminished in lower extremities bilaterally. Skin is dry. Poor toenail status. Neuro patient lethargic but does wake up to painful stimuli but does fall back to sleep and confusion at times residual weakness from previous stroke and changed. The patient has chronic contracture in the left upper extremity and weakness along with some left facial weakness. Pupils are equal and reactive to light. She is able to communicate and answer questions when aroused. Results - Laboratory Findings CBC and BMP: 06/29/19 07:35 06/29/19 07:35 PT/INR, D-dimer PT 9.4 sec (9.0-12.0) 06/22/19 22:14 INR 0.9 (<1.2) 06/22/19 22:14 Abnormal lab findings: Abnormal Labs 06/22/19 06/22/19 06/22/19 17:44 19:35 22:14 WBC RBC 2.94 L Hgb 8.8 L Hct 27.4 L MCHC RDW APTT Sodium Carbon Dioxide BUN Creatinine Glucose POC Glucose (mg/dL) 269 H 247 H Hemoglobin A1c Calcium Total Protein Albumin 06/22/19 06/22/19 06/22/19 22:14 22:14 23:01 WBC RBC Hgb Hct MCHC RDW APTT 21.9 L Sodium 135 L Carbon Dioxide BUN 24 H Creatinine Glucose 426 H POC Glucose (mg/dL) 521 H Hemoglobin A1c Calcium 8.3 L Total Protein 6.1 L Albumin 3.0 L 06/23/19 06/23/19 06/23/19 01:59 05:23 06:47 WBC RBC Hgb Hct MCHC RDW APTT Sodium Carbon Dioxide BUN Creatinine Glucose POC Glucose (mg/dL) 363 H 231 H 230 H Hemoglobin A1c Calcium Total Protein Albumin 06/23/19 06/23/19 06/23/19 09:07 09:07 11:39 WBC RBC 2.94 L Hgb 8.9 L Hct 28.1 L MCHC RDW APTT Sodium Carbon Dioxide BUN 23 H Creatinine Glucose 336 H POC Glucose (mg/dL) 427 H Hemoglobin A1c Calcium Total Protein Albumin 3.3 L 06/23/19 06/23/19 06/24/19 16:29 20:58 01:44 WBC RBC Hgb Hct MCHC RDW APTT Sodium Carbon Dioxide BUN Creatinine Glucose POC Glucose (mg/dL) 461 H 473 H 440 H Hemoglobin A1c Calcium Total Protein Albumin 06/24/19 06/24/19 06/24/19 06:53 06:53 06:56 WBC RBC 2.82 L Hgb 8.6 L Hct 27.1 L MCHC RDW APTT Sodium Carbon Dioxide 31 H BUN 26 H Creatinine Glucose 185 H POC Glucose (mg/dL) 199 H Hemoglobin A1c Calcium Total Protein 6.1 L Albumin 3.0 L 06/24/19 06/24/19 06/24/19 11:33 16:30 20:45 WBC RBC Hgb Hct MCHC RDW APTT Sodium Carbon Dioxide BUN Creatinine Glucose POC Glucose (mg/dL) 179 H 70 L 237 H Hemoglobin A1c Calcium Total Protein Albumin 06/25/19 06/25/19 06/25/19 03:09 03:35 04:01 WBC RBC Hgb Hct MCHC RDW APTT Sodium Carbon Dioxide BUN Creatinine Glucose POC Glucose (mg/dL) 58 L 71 L 64 L Hemoglobin A1c Calcium Total Protein Albumin 06/25/19 06/25/19 06/25/19 04:35 06:36 06:36 WBC RBC 2.62 L Hgb 8.1 L Hct 25.3 L MCHC RDW 15.6 H APTT Sodium Carbon Dioxide 33 H BUN 28 H Creatinine Glucose POC Glucose (mg/dL) 73 L Hemoglobin A1c Calcium Total Protein 6.2 L Albumin 3.0 L 06/25/19 06/25/19 06/25/19 11:43 16:55 19:05 WBC RBC Hgb Hct MCHC RDW APTT Sodium Carbon Dioxide BUN Creatinine Glucose POC Glucose (mg/dL) 168 H 225 H 242 H Hemoglobin A1c Calcium Total Protein Albumin 06/26/19 06/26/19 06/26/19 02:12 05:31 06:34 WBC 3.5 L RBC 2.65 L Hgb 8.0 L Hct 25.4 L MCHC RDW APTT Sodium Carbon Dioxide BUN Creatinine Glucose POC Glucose (mg/dL) 137 H 58 L Hemoglobin A1c Calcium Total Protein Albumin 06/26/19 06/26/19 06/26/19 06:34 11:46 16:38 WBC RBC Hgb Hct MCHC RDW APTT Sodium Carbon Dioxide 34 H BUN 25 H Creatinine Glucose POC Glucose (mg/dL) 234 H 219 H Hemoglobin A1c Calcium Total Protein 5.6 L Albumin 2.6 L 06/26/19 06/27/19 06/27/19 20:21 01:40 06:32 WBC RBC Hgb Hct MCHC RDW APTT Sodium Carbon Dioxide BUN Creatinine Glucose POC Glucose (mg/dL) 370 H 496 H 288 H Hemoglobin A1c Calcium Total Protein Albumin 06/27/19 06/27/19 06/27/19 09:34 09:34 11:39 WBC RBC 2.84 L Hgb 8.6 L Hct 27.2 L MCHC RDW APTT Sodium Carbon Dioxide 31 H BUN 30 H Creatinine 1.08 H Glucose 229 H POC Glucose (mg/dL) 242 H Hemoglobin A1c Calcium Total Protein 6.2 L Albumin 2.9 L 06/27/19 06/27/19 06/27/19 13:33 16:49 20:12 WBC RBC Hgb Hct MCHC RDW APTT Sodium Carbon Dioxide BUN Creatinine Glucose POC Glucose (mg/dL) 249 H 402 H 454 H Hemoglobin A1c Calcium Total Protein Albumin 06/27/19 06/28/19 06/28/19 23:54 01:36 06:51 WBC RBC Hgb Hct MCHC RDW APTT Sodium Carbon Dioxide BUN Creatinine Glucose POC Glucose (mg/dL) 305 H 251 H 139 H Hemoglobin A1c Calcium Total Protein Albumin 06/28/19 06/28/19 06/28/19 08:26 08:26 08:26 WBC RBC 2.84 L Hgb 8.2 L Hct 27.4 L MCHC 30.0 L RDW APTT Sodium Carbon Dioxide 34 H BUN 27 H Creatinine Glucose 164 H POC Glucose (mg/dL) Hemoglobin A1c 8.5 H Calcium Total Protein 6.0 L Albumin 2.8 L 06/28/19 06/28/19 06/28/19 11:46 17:08 20:15 WBC RBC Hgb Hct MCHC RDW APTT Sodium Carbon Dioxide BUN Creatinine Glucose POC Glucose (mg/dL) 282 H 300 H 240 H Hemoglobin A1c Calcium Total Protein Albumin 06/29/19 06/29/19 06/29/19 01:49 06:57 07:35 WBC RBC 2.72 L Hgb 8.1 L Hct 26.0 L MCHC RDW APTT Sodium Carbon Dioxide BUN Creatinine Glucose POC Glucose (mg/dL) 183 H 127 H Hemoglobin A1c Calcium Total Protein Albumin 06/29/19 06/29/19 06/29/19 07:35 07:42 09:43 WBC RBC Hgb Hct MCHC RDW APTT Sodium Carbon Dioxide 32 H BUN 23 H Creatinine Glucose 117 H POC Glucose (mg/dL) 123 H 170 H Hemoglobin A1c Calcium Total Protein 6.2 L Albumin 2.9 L 06/29/19 06/29/19 11:05 11:44 WBC RBC Hgb Hct MCHC RDW APTT Sodium Carbon Dioxide BUN Creatinine Glucose POC Glucose (mg/dL) 180 H 179 H Hemoglobin A1c Calcium Total Protein Albumin - Diagnostic Findings Chest x-ray: image reviewed Assessment and Plan Plan: 1 altered mental status. The patient was evaluated today. The patient is more drowsy and sleepy and she does not demonstrate any new onset neurologic deficits other than the ones that she had in the past. On examination, she is easily arousable and she does have some left-sided weakness which has been present from the previous CVA. There may be a component of metabolic encephalopathy with drug induced encephalopathy. Sepsis is felt to be less likely as the patient d oes not have the typical systemic inflammatory response syndrome that is associated with sepsis. 2 right foot wound/osteomyelitis currently on daptomycin 3 COPD 4 diabetes mellitus type 1 5 peripheral vascular disease 6 hypertension 7 hyperlipidemia 8 coronary artery disease with previous coronary stenting 9 brief hypotension which has recovered 10 CHF which is currently inactive in stable 11 peripheral vascular disease Plan Check a valproic acid level Hold Seroquel Hold narcotics Obtain blood cultures Obtain ABGs Proceed with a CAT scan of the brain Check lactic acid level Monitor the mental status and the patient is doing well for now and she is hemodynamically stable. I do not see the need for ICU transfer for the time being.
--- NOTE | 2019-06-29 13:50 | CT ---
EXAMINATION TYPE: CT brain wo con DATE OF EXAM: 06/29/2019 HISTORY: Headache, history of left-sided paralysis and brain lesions. Altered mental status. CT DLP: 1035.4 mGycm. Automated Exposure Control for Dose Reduction was Utilized. TECHNIQUE: CT scan of the head is performed without contrast. COMPARISON: CT brain June 08, 2017 and older CTs FINDINGS: There is no acute intracranial hemorrhage or midline shift identified. There is diffuse v entricular and sulcal prominence consistent with diffuse cerebral atrophy. Large area of encephalomal acia involving the entire right frontal hemisphere MCA is redemonstrated. There is some extension int o the right temporal lobe and to lesser degree the right parietal lobe similar to prior. Vascular migdalia cification distal internal carotid arteries bilaterally redemonstrated. Globes are intact and visuali zed paranasal sinuses are clear. IMPRESSION: No acute intracranial hemorrhage or midline shift. There is persistent mild to moderate diffuse cerebral atrophy with large right MCA distribution infarct all redemonstrated. No significan t change from most recent prior.
[2019-06-29 16:34] LABS: Glucose,Whole Blood 288 mg/dL (75-99)
[2019-06-29 20:05] LABS: Glucose,Whole Blood 233 mg/dL (75-99)
[2019-06-29] MEDS: INSULIN DETEMIR (LEVEMIR) 100 UNIT/ML SYR SQ SCH (20:49)
[2019-06-29] MEDS: QUEtiapine 100 MG TAB PO SCH (20:52)
--- NOTE | 2019-06-29 23:32 | PN ---
PROGRESS NOTE DATE OF SERVICE: 06/29/2019 REASON FOR FOLLOWUP: Right diabetic foot infection with osteomyelitis. INTERVAL HISTORY: The patient is currently afebrile. The patient has been breathing comfortably. Denies having any chest pain or any cough. No nausea, vomiting. No abdominal pain. No diarrhea. PHYSICAL EXAMINATION: Blood pressure 117/59, pulse of 87, temperature of 98.2. She is 97% on room air. General description is a middle-aged female lying in bed in no distress. RESPIRATORY SYSTEM: Unlabored breathing. Clear to auscultation anteriorly. HEART: S1, S2. Regular rate and rhythm. ABDOMEN: Soft. No tenderness. Right foot is currently dressed up. No drainage on the dressing. LABS: Hemoglobin 8.1, white count 4.2. Creatinine is normal at 0.97. Blood culture has been negative. DIAGNOSTIC IMPRESSION AND PLAN: Patient with right diabetic foot wound with evidence of osteomyelitis at the base of the fifth , status post debridement. The patient is currently covered with daptomycin; that will be continued. Local care with [facility]. Awaiting placement. Continue with supportive care. MMODL / IJN: [id number] /
[2019-06-30 00:41] LABS: Glucose,Whole Blood 158 mg/dL (75-99)
[2019-06-30] MEDS: HYDROcodone/APAP 10-325MG 1 EACH TAB PO PRN ×2 (04:19→10:09)
[2019-06-30 07:21] VITALS: BP 99/61; RESP 15; TEMP 97.4
[2019-06-30 07:21] LABS: Basophils % (A) 0 %; Eosinophils % (A) 1 %; HCT 29.9 % (34.0-46.0); HGB 9.1 gm/dL (11.4-16.0); Hypochromasia Slight; Lymphocytes # (A) 1.1 k/uL (1.0-4.8); Lymphocytes % (A) 16 %; MCH 29.2 pg (25.0-35.0); MCHC 30.6 g/dL (31.0-37.0); MCV 95.3 fL (80.0-100.0); Mean Platelet Volume 7.4; Monocytes # (A) 0.5 k/uL (0-1.0); Monocytes % (A) 7 %; Neutrophils # (A) 4.9 k/uL (1.3-7.7); Neutrophils % (A) 74 %; Platelet Count 380 k/uL (150-450); RBC 3.14 m/uL (3.80-5.40); RDW 14.9 % (11.5-15.5); WBC 6.6 k/uL (3.8-10.6)
[2019-06-30 07:28] LABS: Glucose,Whole Blood 56 mg/dL (75-99)
[2019-06-30 07:48] LABS: Albumin 3.3 g/dL (3.5-5.0); Calcium 9.5 mg/dL (8.4-10.2); Potassium 4.8 mmol/L (3.5-5.1); Total Bilirubin 0.3 mg/dL (0.2-1.3)
[2019-06-30 07:54] LABS: Glucose,Whole Blood 57 mg/dL (75-99)
[2019-06-30 08:13] LABS: Glucose,Whole Blood 123 mg/dL (75-99)
[2019-06-30] MEDS: INSULIN ASPART (NovoLOG) 100 UNIT/ML VIAL SQ SCH ×2 (08:19→12:02)
[2019-06-30] MEDS ORDERED: VALPROIC ACID ORAL SOLN 250 MG/5 ML CUP PO SCH (09:00)
[2019-06-30] MEDS: IPRATROPIUM-ALBUTEROL 3 ML NEB INHALATION SCH ×2 (09:02→12:13)
[2019-06-30] MEDS: ENOXAPARIN 40 MG/0.4 ML SYRINGE SQ SCH (10:08)
[2019-06-30] MEDS: DULoxetine HCL 60 MG CAPSULE.DR PO SCH (10:08)
[2019-06-30] MEDS: ASPIRIN 81 MG PO SCH (10:08)
[2019-06-30] MEDS: FAMOTIDINE 20 MG TAB PO SCH (10:09)
[2019-06-30] MEDS: FERROUS SULFATE 325 MG TAB PO SCH (10:09)
[2019-06-30 10:10] VITALS: PULSE 96
[2019-06-30] MEDS: DAPTOmycin 350 MG in SODIUM CHLORIDE 0.9% 50 ML IVPB SCH (10:15)
--- NOTE | 2019-06-30 10:59 | P.PN ---
Subjective Progress Note Date: 06/30/19 Principal diagnosis: Altered mental status This is a 58-year-old female patient was sent over to the hospital because of concerns from the visiting nurse. The patient has she has had diabetic foot ulcers and previous history of osteomyelitis and she had a recent discharge from the hospital on IV antibiotics due to concern of right foot osteomyelitis. She also has history of coronary artery disease, COPD, CVA, DVT, hypertension, hyperlipidemia, acid reflux, osteoarthritis, chronic kidney disease, recurring wounds/diabetic ulcers . Apparently, the patient was found at home and feces and poor living condition was noted at home. She apparently lives with a caregiver. This was noted that the patient was also having increased shortness of breath and she wasn't COPD exacerbation in time of admission. branch services manager were also consulted on the case. Patient during this current hospital stay was started on COPD exacerbation treatment with accommodation bronchodilato rs and steroids. The patient denies having any chest pain. She denies any nausea vomiting abdominal pain or diarrhea and she denies having any dysuria fixed or urgency. Over the next few days, the patient was found to be alert and she was complaining of pain in the lower extremities and she was being considered to be discharged back to [facility] or [facility]. Subsequently, on on today's evaluation the patient was found to be having some altered mentation, sedated and slightly hypotensive with a systolic blood pressure 74 with a diastolic of 37. Note that the patient was taking daptomycin for right foot wound infection/osteomyelitis. The patient undergone debridement by Dr. Cadena. She was receiving daptomycin upon discharge from the recent admission and this was Resumed. Based on this hypotension, the patient was started on IV fluids and subsequently systolic blood pressure improved.. Repeat chest x-ray shows no acute abnormalities. A computed tomography scan of the brain was also ordered. I saw the patient the bedside. I noticed that she is easily arousable and she will follow commands and answer questions. One left unstimulated, she will gradually snows and go to sleep. She has obvious weakness in her left face and left upper extremity which is quite contracted related to previous CVA. She has osteomyelitis and open wounds in her right foot at the level of the anterior medial area and the lateral area and the base is covered with some purulent material. The patient has missing toes on the right foot. There is no surrounding cellulitis. There is no swelling in lower extremities. No reported cough. No reported shortness of breath. No significant tachycardia. She is given a half a liter bolus and his blood pressure is normalized. On 06/30/2019 patient seen in follow-up on the general medical floor, her mentation has much improved, she is fully awake on today's exam, quite talkative, but very pleasant, cooperative, she denies any acute distress, she is oriented to person and place, denies any difficulty breathing, denies any pain, she has involuntary movement involving her lower extremities and upper extremities, or if this is chronic or her baseline. She states she had a fall last night, no signs of obvious injury. Lung sounds are clear on auscultation. No cough or congestion, patient was found to be hypoglycemic this morning, with a serum glucose of 37, and capillary glucose in the 50s, which has recovered with oral intake, and is currently at 123 mg/dL. Brain CT did not show acute intracranial findings, it did show old large right MCA infarct. Chest x-ray was reviewed showing trace left pleural effusion, but no pneumonic infiltrates, no sign of fluid overload. Patient remains on daptomycin for right foot o steomyelitis, she has been afebrile, hemodynamically she stable, blood pressure is 99/60, patient is non-tachycardic on today's exam. Objective - Vital Signs Vital signs: Vital Signs Temp 97.4 F L 06/30/19 07:19 Pulse 96 06/30/19 10:03 Resp 15 06/30/19 10:03 BP 99/61 06/30/19 07:19 Pulse Ox 96 06/30/19 07:19 Intake & Output 06/29/19 06/30/19 06/30/19 18:59 06:59 18:59 Output Total 700 Balance -700 Output: Urine 700 Uretheral (Daigle) 700 Other: Voiding Method Diaper Diaper Diaper Incontinent Incontinent Incontinent # Voids 1 3 - Exam In general patient is alert and oriented to person and place and follows commands and answer questions appropriately. Her level of consciousness is improved from yesterday's exam, patient has spontaneously awake, she is quite talkative, she is cooperative, she denies any acute distress on today's exam. No neck stiffness. HEENT head normocephalic and atraumatic Neck is supple no JVD no goiter no lymphadenopathy Lungs diminished bilaterally no crackles no wheezing Heart regular rate and rhythm S1-S2, no rub or gallop Abdomen is soft nontender nondistended positive bowel sounds no hepatosplenomegaly Extremities no edema. Right foot has 2 missing toes. The patient has also lar ge ulcers one in the lateral aspect of the right foot and the other one is in the anteromedial aspect of the right foot and the base is covered with some purulent material and is exposed. No cellulitis. Pulses are diminished in lower extremities bilaterally. Skin is dry. Poor toenail status. Neuro patient awake and alert, oriented 2, talkative, responding appropriately, at times residual weakness from previous stroke and changed. She has some involuntary movement involving her bilateral lower extremities and upper extremities to a lesser degree, not sure of this is baseline The patient has chronic contracture in the left upper extremity and weakness along with some left facial weakness. Pupils are equal and reactive to light. She is able to communicate and answer questions - Labs CBC & Chem 7: 06/30/19 06:44 06/30/19 06:44 Labs: Abnormal Lab Results - Last 24 Hours (Table) 06/29/19 06/29/19 06/29/19 Range/Units 11:05 11:44 16:32 RBC (3.80-5.40) m/uL Hgb (11.4-16.0) gm/dL Hct (34.0-46.0) % MCHC (31.0-37.0) g/dL Carbon Dioxide (22-30) mmol/L BUN (7-17) mg/dL Glucose (74-99) mg/dL POC Glucose (mg/dL) 180 H 179 H 288 H (75-99) mg/dL Albumin (3.5-5.0) g/dL 06/29/19 06/30/19 06/30/19 Range/Units 20:04 00:40 06:44 RBC 3.14 L (3.80-5.40) m/uL Hgb 9.1 L (11.4-16.0) gm/dL Hct 29.9 L (34.0-46.0) % MCHC 30.6 L (31.0-37.0) g/dL Carbon Dioxide (22-30) mmol/L BUN (7-17) mg/dL Glucose (74-99) mg/dL POC Glucose (mg/dL) 233 H 158 H (75-99) mg/dL Albumin (3.5-5.0) g/dL 06/30/19 06/30/19 06/30/19 Range/Units 06:44 07:23 07:43 RBC (3.80-5.40) m/uL Hgb (11.4-16.0) gm/dL Hct (34.0-46.0) % MCHC (31.0-37.0) g/dL Carbon Dioxide 32 H (22-30) mmol/L BUN 18 H (7-17) mg/dL Glucose 37 L* (74-99) mg/dL POC Glucose (mg/dL) 56 L 57 L (75-99) mg/dL Albumin 3.3 L (3.5-5.0) g/dL 06/30/19 Range/Units 08:10 RBC (3.80-5.40) m/uL Hgb (11.4-16.0) gm/dL Hct (34.0-46.0) % MCHC (31.0-37.0) g/dL Carbon Dioxide (22-30) mmol/L BUN (7-17) mg/dL Glucose (74-99) mg/dL POC Glucose (mg/dL) 123 H (75-99) mg/dL Albumin (3.5-5.0) g/dL Assessment and Plan Plan: Assessment: 1 altered mental status, improved. The patient was evaluated today. The patient is more drowsy and sleepy and she does not demonstrate any new onset neurologic deficits other than the ones that she had in the past. On examination, she is easily arousable and she does have some left-sided weakness which has been present from the previous CVA. There may be a component of metabolic encephalopathy with drug induced encephalopathy. Sepsis is felt to be less likely as the patient does not have the typical systemic inflammatory response syndrome that is associated with sepsis. 2 right foot wound/osteomyelitis currently on daptomycin 3 COPD 4 diabetes mellitus type 1 5 peripheral vascular disease 6 hypertension 7 hyperlipidemia 8 coronary artery disease with previous coronary stenting 9 brief hypotension which has recovered 10 CHF which is currently inactive in stable 11 peripheral vascular disease Plan: Patient is much more awake and responsive on today's exam, she did have some episodes of hypoglycemia which was treated, and her blood glucose has recovered, hemodynamically she is stable, blood cultures so far have shown no growth, she continues on daptomycin for right foot osteomyelitis, she's had no fevers, she is on room air, chest x-ray has been reviewed showing only trace left pleural effusion, no difficulty breathing, no cough or congestion, no fever or chills, no nausea vomiting or diarrhea. Maintain safety precautions, oral intake, maintain aspiration precautions, from pulmonary/critical care perspective patient is stable, it could be considered for discharge to subacute rehab. Her service will sign off and follow on as-needed basis I performed a history & physical examination of the patient and discussed their management with my nurse practitioner, Dolly Bryan. I reviewed the nurse practitioner's note and agree with the documented findings and plan of care. Lung sounds are positive for clear breath sounds. The findings and the impression was discussed with the patient. I attest to the documentation by the nurse practitioner. Time with Patient: Less than 30
--- NOTE | 2019-06-30 11:32 | P.DS ---
Providers Date of admission: 06/25/19 12:52 Expected date of discharge: 06/30/19 Attending physician: Sherlyn Chen Consults: 06/23/19 08:09 Consult Physician Routine Consulting Provider: Rufina Chapa Consult Reason/Comments: established patient on daptomycin Do you want consulting provider notified?: Yes 06/29/19 12:24 Consult Physician Routine Consulting Provider: Ángela Foley Consult Reason/Comments: [facility] [place] you want consulting provider notified?: Yes Primary care physician: Sherlyn Chen [facility] Course: Discharge diagnosis 1. Failure to thrive with concerns of living conditions. Social work services have been consulted to assess discharge planning and home environment 2. Right foot wound infection with osteomyelitis. Patient recently underwent debridement with Dr. Egan. Patient recently discharged on IV daptomycin per ID. Infectious disease services have been consulted. Daptomycin has been resumed 3. Acute COPD exacerbation. Patient started Solu-Medrol DuoNeb breathing treatments chest x-ray has been ordered. Resolved 4. Type 1 diabetes mellitus known brittle diabetic with noncompliance. Patient's home dose of Levemir and sliding scale insulin has been ordered. She did have episode of hypoglycemia will decrease Levemir to 15 units 5. History of peripheral vascular disease 6. History of essential hypertension 7. History of hyperlipidemia 8. History of congestive heart failure 9. History of coronary artery disease with previous history of angioplasty and stent placement 10. Altered mental status. Head CT will be ordered. ABGs, ammonia level and lactic acid ordered. Critical care consult placed. Did discuss case with critical care nurse practitioner. Narcotics and controlled substances currently on hold. Patient has returned to baseline. Head CT was completed showing no acute intracranial hemorrhage or midline shift there is persistent mild to moderate diffuse cerebral atrophy with large right MCA distribution infarct already demonstrate no significant change from recent. Patient has returned to normal baseline mentation 11. Hypotension. Blood pressure systolic in the 70s. 500 mL bolus given blood pressure did improve. Blood pressure has improved Hospital course This is a 58-year-old female patient who presented to the ER with concerns of failure to thrive and concerns of living conditions per Visiting nurse. Patient was recently discharged on IV antibiotics for concerns for right foot osteomyelitis. Patient is also a known brittle diabetic. Additional medical history includes asthma, CAD, chest pain, heart failure, COPD, CVA, diabetes mellitus, deep vein thrombosis, GERD, hyperlipidemia, hypertension, osteoarthritis, renal disease and reoccurring extremity wounds due to diabetes cells and wound care clinic. According to ER report patient was covered in feces and poor living conditions were noted in house. Per patient she reports that she lives with caregiver. Patient was also noted to have some wheezing per ER admitted for COPD exacerbation. At this time will consult infectious disease for ongoing IV antibiotic use. Social work services also consulted to assess living condition and plan for discharge. Patient was started on Solu-Medrol for COPD exacerbation and DuoNeb breathing treatments will order chest x-ray. At this time patient denies chest pain or shortness of breath. Patient denies nausea vomiting or diarrhea. Patient denies any urinary burning or frequency On 06/24/2019 patient was seen and examined on the medical floor she is alert and oriented 3 in no apparent distress she is complaining of occasional pain in her lower extremity otherwise she denies any complaints there is no fever no chills no headache no dizziness no chest pain no shortness of breath no cough no nausea or vomiting no abdominal pain no diarrhea no burning with urination no frequency or urgency no hematuria On 06/25/2019 patient was seen and examined on the medical floor she states she is doing well she denies any complaints at this time there is no fever or chills no headache or dizziness no chest pain no shortness of breath no cough no nausea or vomiting no abdominal pain no diarrhem burning with urination no frequency or urgency and no hematuria and in the lower extremity is well-controlled at this time On 06/26/2019 patient is alert and oriented 3. Patient denies any complaints there is nausea vomiting or diarrhea. Denies chest pain or shortness breath. Patient denies any urinary burning or frequency. Per social work discussion was held with legal evy and leah to discharge to [facility] for IV antibiotics. Possible discharge to [facility] or [facility] for IV antibiotics. On 06/27/2019 patient is alert and oriented 3. Patient is sleepy but does wake up to follow commands. Waiting on insurance coverage for rehab in regards to antibiotics. Possible [facility] and [facility] discharge. patient denies chest pain or shortness of breath. denies any urinary and frequency. Denies nausea vomiting or diarrhea patient remains on daptomycin IV antibiotics On 06/28/2019 patient is alert and oriented 3. Patient denies any complaints. Patient denies chest pain or shortness breath. Patient denies nausea vomiting or diarrhea. Patient denies any urinary burning or frequency. Did discuss case with infectious disease patient will acquire daptomycin for approximately 30 more days at discharge social work working on discharge planning On 06/29/2019 on examination patient was found to be lethargic. Patient does wake up to stimuli but quickly falls back to sleep. Notify nursing staff to check blood sugar and vitals. Patient's blood pressure low with systolic in the 70's. 500 mL bolus ordered. Medications currently on hold. Upon reexamination patient's blood pressure had improved but patient remains lethargic. At this time will order head CT, lactic acid, ABGs, ammonia level, EKG and troponins. Also consulted Dr. Mann per critical care did discuss case with critical care teams nurse practitioner. Vitals remained stable. Patient is on room air pulse ox 99. On 06/30/2019 patient's mentation has returned to baseline. Patient awake following commands eating breakfast. Patient did have episode of low blood sugar exam room air has been decreased to 15 units. Patient will be DC'd to [facility] today in order to finish out IV antibiotics. Patient denies chest pain or shortness of breath. Patient denies nausea vomiting or diarrhea. Patient denies any urinary burning or frequency I performed an examination of the patient and discussed their management with the Nurse Practitioner. I have reviewed the Nurse Practitioner's notes and agree with the documented findings and plan of care Patient Condition at Discharge: Stable Plan - Discharge Summary Discharge Rx Participant: No New Discharge Prescriptions: New DAPTOmycin [Cubicin] 350 mg IVPB Q24HR vial Insulin Detemir (Levemir) [Levemir] 15 unit SQ HS syr QUEtiapine [SEROquel] 25 mg PO DAILY@1200 tab ALPRAZolam [Xanax] 0.5 mg PO Q8HR PRN tab PRN Reason: Anxiety Continue Albuterol Inhaler [Ventolin Hfa Inhaler] 2 puff INHALATION RT-Q4H PRN PRN Reason: Shortness Of Breath Famotidine [Pepcid] 20 mg PO DAILY Valproic Acid [Depakene] 250 mg PO DAILY Ergocalciferol [Vitamin D2 (DRISDOL)] 50,000 unit PO SA HYDROcodone/APAP 10-325MG [[place] 10-325] 1 tab PO Q6H PRN PRN Reason: Pain DULoxetine HCL [Cymbalta] 60 mg PO DAILY Ondansetron [Zofran] 4 mg PO DAILY PRN PRN Reason: Nausea QUEtiapine [SEROquel] 100 mg PO HS Atorvastatin [Lipitor] 20 mg PO DAILY Vitamin B Complex With Vit C 1 tab PO DAILY Aspirin [Adult Low Dose Aspirin EC] 81 mg PO DAILY Ferrous Sulfate [Iron (65 MG Elemental)] 325 mg PO DAILY DAPTOmycin [Daptomycin] 350 mg IV DAILY #40 vial INSULIN ASPART (NovoLOG) [NovoLOG (formulary)] See Protocol SQ ACHS Discontinued ALPRAZolam [Xanax] 1 mg PO Q8H QUEtiapine FUMARATE [SEROquel] 25 mg PO BID Insulin Glargine [Lantus] 12 unit SQ HS #0 Discharge Medication List Albuterol Inhaler [Ventolin Hfa Inhaler] 2 puff INHALATION RT-Q4H PRN 07/19/15 [History] Famotidine [Pepcid] 20 mg PO DAILY 07/19/15 [History] Valproic Acid [Depakene] 250 mg PO DAILY 07/19/15 [History] Ergocalciferol [Vitamin D2 (DRISDOL)] 50,000 unit PO SA 03/05/16 [History] HYDROcodone/APAP 10-325MG [[place] 10-325] 1 tab PO Q6H PRN 10/03/16 [History] DULoxetine HCL [Cymbalta] 60 mg PO DAILY 02/16/17 [History] Ondansetron [Zofran] 4 mg PO DAILY PRN 09/06/17 [History] Atorvastatin [Lipitor] 20 mg PO DAILY 12/28/18 [History] QUEtiapine [SEROquel] 100 mg PO HS 12/28/18 [History] Vitamin B Complex With Vit C 1 tab PO DAILY 06/01/19 [History] Aspirin [Adult Low Dose Aspirin EC] 81 mg PO DAILY 06/09/19 [History] Ferrous Sulfate [Iron (65 MG Elemental)] 325 mg PO DAILY 06/09/19 [History] DAPTOmycin [Daptomycin] 350 mg IV DAILY #40 vial 06/16/19 [Rx] INSULIN ASPART (NovoLOG) [NovoLOG (formulary)] See Protocol SQ ACHS 06/22/19 [History] ALPRAZolam [Xanax] 0.5 mg PO Q8HR PRN tab 06/30/19 [Rx] DAPTOmycin [Cubicin] 350 mg IVPB Q24HR vial 06/30/19 [Rx] Insulin Detemir (Levemir) [Levemir] 15 unit SQ HS syr 06/30/19 [Rx] QUEtiapine [SEROquel] 25 mg PO DAILY@1200 tab 06/30/19 [Rx] Follow up Appointment(s)/Referral(s): Sherlyn Chen MD [Primary Care Provider] - 1-2 days
[2019-06-30 11:58] LABS: Glucose,Whole Blood 380 mg/dL (75-99)
[2019-06-30] MEDS ORDERED: QUEtiapine 25 MG TAB PO SCH (12:00)
--- NOTE | 2019-06-30 19:04 | PN ---
PROGRESS NOTE DATE OF SERVICE: 06/30/2019 REASON FOR FOLLOWUP: Right foot diabetic foot wound and osteomyelitis. INTERVAL HISTORY: The patient was seen on rounds early this afternoon. The patient has been afebrile, breathing comfortably. Denies any pain to the right foot area. No chest pain, shortness of breath or cough. No abdominal pain. No diarrhea. PHYSICAL EXAMINATION: On examination, blood pressure 99/61 with a pulse of 96. Temperature 97.4, she is 96% on room air. General description is a middle-aged female lying in bed in no distress. Respiratory system: Unlabored breathing. Clear to auscultation anteriorly. Heart S1, S2. Regular rate and rhythm. Abdomen soft, no tenderness. Right foot both lateral and medial wound did have soft tissue surrounding redness improved. No drainage. LABS: Hemoglobin 9.1, white count 6.6, creatinine 0.88. DIAGNOSTIC IMPRESSION AND PLAN: Patient with right diabetic foot infection with underlying osteomyelitis. Culture with Staph epi. Vancomycin. The patient currently on daptomycin. She will continue to finish for a total of 6 week course of therapy. Local wound care with Medihoney, followed by moist dressing to keep the area off the pressure. Continue supportive care. MMODL / IJN: [id number] /
[2019-06-30] MEDS ORDERED: INSULIN DETEMIR (LEVEMIR) 100 UNIT/ML SYR SQ SCH (21:00)
== END 2019-06-30 14:40 | DRG 638 ==
LOC: EC 17:27 → 4SSUR 20:15 → OBSVTOIN 06-25 12:52
PROVIDERS: ADMIT Internal Medicine; ATTEND Internal Medicine
DX: E10.621 Type 1 diabetes mellitus with foot ulcer (principal); E44.1 Mild protein-calorie malnutrition; I69.354 Hemiplegia and hemiparesis following cerebral infarction affecting left non-dominant side; J44.1 Chronic obstructive pulmonary disease with (acute) exacerbation; M86.9 Osteomyelitis, unspecified; G92 Toxic encephalopathy; E10.51 Type 1 diabetes mellitus with diabetic peripheral angiopathy without gangrene; E10.42 Type 1 diabetes mellitus with diabetic polyneuropathy; E10.319 Type 1 diabetes mellitus with unspecified diabetic retinopathy without macular edema; E10.649 Type 1 diabetes mellitus with hypoglycemia without coma; E10.69 Type 1 diabetes mellitus with other specified complication; I95.9 Hypotension, unspecified; I11.0 Hypertensive heart disease with heart failure; I50.9 Heart failure, unspecified; L97.519 Non-pressure chronic ulcer of other part of right foot with unspecified severity; B95.7 Other staphylococcus as the cause of diseases classified elsewhere; E03.9 Hypothyroidism, unspecified; E10.65 Type 1 diabetes mellitus with hyperglycemia; Z68.23 Body mass index [BMI] 23.0-23.9, adult; E78.5 Hyperlipidemia, unspecified; F41.9 Anxiety disorder, unspecified; M19.90 Unspecified osteoarthritis, unspecified site; K21.9 Gastro-esophageal reflux disease without esophagitis; I25.10 Atherosclerotic heart disease of native coronary artery without angina pectoris; I25.2 Old myocardial infarction; I83.90 Asymptomatic varicose veins of unspecified lower extremity; R32 Unspecified urinary incontinence; T50.905A Adverse effect of unspecified drugs, medicaments and biological substances, initial encounter; R62.7 Adult failure to thrive; Z79.4 Long term (current) use of insulin; Z79.82 Long term (current) use of aspirin; Z79.899 Other long term (current) drug therapy; Z99.3 Dependence on wheelchair; Z91.19 Patient's noncompliance with other medical treatment and regimen; Z87.891 Personal history of nicotine dependence; Z95.5 Presence of coronary angioplasty implant and graft; Z90.710 Acquired absence of both cervix and uterus; Z86.718 Personal history of other venous thrombosis and embolism; Z88.0 Allergy status to penicillin; Z88.8 Allergy status to other drugs, medicaments and biological substances; Z91.030 Bee allergy status; Z90.49 Acquired absence of other specified parts of digestive tract; Z87.01 Personal history of pneumonia (recurrent); Z86.14 Personal history of Methicillin resistant Staphylococcus aureus infection; Z98.42 Cataract extraction status, left eye; Z98.41 Cataract extraction status, right eye; Z96.1 Presence of intraocular lens; Z89.411 Acquired absence of right great toe; Z89.421 Acquired absence of other right toe(s); Z82.49 Family history of ischemic heart disease and other diseases of the circulatory system; Z82.5 Family history of asthma and other chronic lower respiratory diseases; Z83.3 Family history of diabetes mellitus; W19.XXXA Unspecified fall, initial encounter
CPT/HCPCS: 36415; 70450; 71045; 71046; 80053; 80164; 82140; 83036; 83605; 83735; 84100; 84484; 85025; 85610; 85730; 87040; 94640; 94760; 96361; 96374; 99284

== ENCOUNTER 2019-08-12 21:38 | Inpatient (IN) | payer OTHER ==
[2019-08-12] MEDS ORDERED: LORazepam 2 MG/ML INJ IM STA (21:45)
[2019-08-12] MEDS ORDERED: SODIUM CHLORIDE 0.9% 1,000 ML IV STA (21:58)
[2019-08-12 22:37] LABS: Basophils % (A) 0 %; Eosinophils # (A) 0.1 k/uL (0-0.7); Eosinophils % (A) 1 %; HCT 37.8 % (34.0-46.0); HGB 11.4 gm/dL (11.4-16.0); Hypochromasia Slight; Lymphocytes # (A) 2.1 k/uL (1.0-4.8); Lymphocytes % (A) 23 %; MCH 28.2 pg (25.0-35.0); MCHC 30.3 g/dL (31.0-37.0); MCV 93.2 fL (80.0-100.0); Mean Platelet Volume 8.1; Monocytes # (A) 0.4 k/uL (0-1.0); Monocytes % (A) 5 %; Neutrophils # (A) 6.4 k/uL (1.3-7.7); Neutrophils % (A) 70 %; Platelet Count 357 k/uL (150-450); RBC 4.05 m/uL (3.80-5.40); RDW 14.4 % (11.5-15.5); WBC 9.1 k/uL (3.8-10.6)
[2019-08-12 22:45] LABS: ALT 17 U/L (4-34); AST 18 U/L (14-36); African American GFR (CKD) 48 (>60 ml/min/1.73 sqM); Albumin 3.9 g/dL (3.5-5.0); Alkaline Phosphatase 95 U/L (38-126); Amylase <30 U/L (30-110); Anion Gap 9 mmol/L; Blood Urea Nitrogen 68 mg/dL (7-17); Calcium 9.7 mg/dL (8.4-10.2); Carbon Dioxide 28 mmol/L (22-30); Chloride 105 mmol/L (98-107); Glucose 305 mg/dL (74-99); Non-African American GFR(CKD) 42 (>60 ml/min/1.73 sqM); Potassium 4.1 mmol/L (3.5-5.1); Sodium 142 mmol/L (137-145); Total Bilirubin 0.2 mg/dL (0.2-1.3); Total Protein 7.8 g/dL (6.3-8.2)
--- NOTE | 2019-08-12 22:47 | XR ---
EXAMINATION TYPE: XR chest 2V DATE OF EXAM: 08/12/2019 COMPARISON: 06/29/2019 HISTORY: Abdominal pain. Chest pain TECHNIQUE: FINDINGS: Heart and mediastinum are normal. Lungs are clear. Diaphragm is normal. Bony thorax appears normal. There are chest leads. IMPRESSION: Normal chest. There is essentially complete clearing of the left lower lobe pleural effus ion and mild infiltrate compared to old exam.
--- NOTE | 2019-08-12 22:49 | ED ---
General Adult HPI - General Chief complaint: Seizure Stated complaint: seizure Time Seen by Provider: 08/12/19 21:48 Source: EMS Mode of arrival: EMS Limitations: no limitations - History of Present Illness Initial comments: 58-year-old female patient with an extensive past medical history presents to the emergency department today for evaluation of possible syncope or seizure. Family member states that they were and with the patient when she was attempting to use the bathroom when she fell backwards. They deny any body shaking. States her eyes were open but she was not responding. She was breathing. Patient has remote history of seizure is nothing recent. Patient has been not eating or drinking lately due to no appetite. Patient is reporting substernal chest pain and abdominal pain. Is reporting nausea. She has not had any vomiting. Family member states that she has been trying to make herself vomit over the last few days. Patient does have history of eating disorder. She denies any fever or chills. Denies cough or congestion. Patient denies any recent rash, cough, shortness of breath, diarrhea, constipation, back pain, numb ness, tingling, dizziness, weakness, hematuria, dysuria, urinary urgency, urinary frequency, visual changes, or any other complaints. - Related Data Home Medications Medication Instructions Recorded Confirmed Albuterol Inhaler [Ventolin Hfa 2 puff INHALATION RT-Q4H PRN 07/19/15 06/22/19 Inhaler] Famotidine [Pepcid] 20 mg PO DAILY 07/19/15 06/22/19 Valproic Acid [Depakene] 250 mg PO DAILY 07/19/15 06/22/19 Ergocalciferol [Vitamin D2 50,000 unit PO SA 03/05/16 06/22/19 (DRISDOL)] HYDROcodone/APAP 10-325MG [[place] 1 tab PO Q6H PRN 10/03/16 06/22/19 10-325] DULoxetine HCL [Cymbalta] 60 mg PO DAILY 02/16/17 06/22/19 Ondansetron [Zofran] 4 mg PO DAILY PRN 09/06/17 06/22/19 Atorvastatin [Lipitor] 20 mg PO DAILY 12/28/18 06/22/19 QUEtiapine [SEROquel] 100 mg PO HS 12/28/18 06/22/19 Vitamin B Complex With Vit C 1 tab PO DAILY 06/01/19 06/22/19 Aspirin [Adult Low Dose Aspirin EC] 81 mg PO DAILY 06/09/19 06/22/19 Ferrous Sulfate [Iron (65 MG 325 mg PO DAILY 06/09/19 06/22/19 Elemental)] INSULIN ASPART (NovoLOG) [NovoLOG See Protocol SQ ACHS 06/22/19 06/22/19 (formulary)] Previous Rx's Medication Instructions Recorded DAPTOmycin [Daptomycin] 350 mg IV DAILY #40 vial 06/16/19 ALPRAZolam [Xanax] 0.5 mg PO Q8HR PRN tab 06/30/19 DAPTOmycin [Cubicin] 350 mg IVPB Q24HR vial 06/30/19 Insulin Detemir (Levemir) [Levemir] 15 unit SQ HS syr 06/30/19 QUEtiapine [SEROquel] 25 mg PO DAILY@1200 tab 06/30/19 Allergies Allergy/AdvReac Type Severity Reaction Status Date / Time Barbiturates Allergy Rash/Hives Verified 08/12/19 21:44 cephalexin monohydrate Allergy Rash/Hives Verified 08/12/19 21:44 [From Keflex] morphine Allergy Rash/Hives Verified 08/12/19 21:44 Penicillins Allergy Rash/Hives Verified 08/12/19 21:44 phenobarbital Allergy Swelling Verified 08/12/19 21:44 venom-honey bee Allergy Swelling Verified 08/12/19 21:44 [bee venom (honey bee)] amlodipine besylate AdvReac Vomiting Verified 08/12/19 21:44 [From Norvasc] Review of Systems ROS Statement: Those systems with pertinent positive or pertinent negative responses have been documented in the HPI. ROS Other: All systems not noted in ROS Statement are negative. Past Medical History Past Medical History: Asthma, Coronary Artery Disease (CAD), Chest Pain / Angina, Heart Failure, COPD, CVA/TIA, Diabetes Mellitus, Deep Vein Thrombosis (DVT), Eye Disorder, GERD/Reflux, Hyperlipidemia, Hypertension, Myocardial Infarction (DC), Neurologic Disorder, Osteoarthritis (OA), Pneumonia, Renal Disease Additional Past Medical History / Comment(s): IDDM (brittle), DKAs, neuropathy bilateral hands/feet, retinopathy bilateral eyes, cellulitis R foot, R great toe and 2nd toe infections/amputations, current wound R foot-being seen in [facility], renal failure, anemia, CVAs with L sided paralysis, headaches started after CVAs, brain lesions, DVT R axillae, low back pain, varicosities, seizure many years ago (2001), hypothyroid, constipation, bilateral tinnitis occasionally, sinus problems. Last Myocardial Infarction Date:: 2011 History of Any Multi-Drug Resistant Organisms: MRSA Date of last positivie culture/infection: 09/06/17 MDRO Source:: Right Foot Past Surgical History: Appendectomy, Section, Cholecystectomy, Heart Catheterization With Stent, Hysterectomy, Orthopedic Surgery Additional Past Surgical History / Comment(s): PCI with multiple stents, R great toe and 2nd toe amps, debridements R foot ulcer, L shoulder surgery to remove bone, bronchoscopy, EGD, colonoscopy, R arm port since removed, bilateral cataract removals/lens implants. Past Anesthesia/Blood Transfusion Reactions: No Reported Reaction Additional Past Anesthesia/Blood Transfusion Reaction / Comment(s): HX OF BLOOD TRANSFUSION- NO REACTION Date of Last Stent Placement:: July 2012 Past Psychological History: Anxiety, Bipolar, Depression Smoking Status: Former smoker Past Alcohol Use History: None Reported Past Drug Use History: Marijuana - Past Family History Father Family Medical History: Unable to Obtain, Coronary Artery Disease (CAD), Diabetes Mellitus Mother Family Medical History: COPD General Exam Limitations: no limitations General appearance: alert, in no apparent distress, other (This is a well- developed, thin appearing adult female patient in no acute distress. Vital signs upon presentation are temperature 98.1F, pulse 109, respirations 18, blood pressure 90/59, pulse ox 94% on room air.) Eye exam: Present: normal appearance, PERRL, EOMI. Absent: scleral icterus, conjunctival injection, periorbital swelling ENT exam: Present: normal exam, normal oropharynx, mucous membranes moist Respiratory exam: Present: normal lung sounds bilaterally. Absent: respiratory distress, wheezes, rales, rhonchi, stridor Cardiovascular Exam: Present: regular rate, normal rhythm, normal heart sounds. Absent: systolic murmur, diastolic murmur, rubs, gallop, clicks GI/Abdominal exam: Present: soft, tenderness (Generalized), normal bowel sounds. Absent: distended, guarding, rebound, rigid Neurological exam: Present: alert, oriented X3, CN II-XII intact Psychiatric exam: Present: normal affect, normal mood Skin exam: Present: warm, dry, intact, normal color. Absent: rash Course Vital Signs 08/12/19 08/12/19 08/12/19 21:40 22:07 22:30 Temperature 98.1 F Pulse Rate 109 H 100 98 Respiratory 18 18 20 Rate Blood Pressure 90/59 128/85 140/89 O2 Sat by Pulse 94 L 99 97 Oximetry 08/12/19 08/12/19 23:00 23:30 Temperature Pulse Rate 96 91 Respiratory 16 15 Rate Blood Pressure 139/85 131/76 O2 Sat by Pulse 100 99 Oximetry EKG Findings - EKG Comments: EKG Findings:: EKG obtained at 2151 shows sinus rhythm with occasional PVCs. There is a prolonged QT interval. Ventricular rate is 100, PA interval 128, QR hinduism 84, QT 392, QTc 505. No evidence of ST elevation or depression. Medical Decision Making - Medical Decision Making 58-year-old female patient presents to the emergency department today for ev aluation of possible seizure-like activity. Physical examination reveals a thin appearing woman who is medically debilitated. Lungs are clear to auscultation with good air movement. 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 She is otherwise neurologically intact answering questions appropriately. Patient apparently had a seizure-like activity while in the department where her head wa s related to the left, eyes rolled back in her head and she had tonic-clonic movements. She was given the fetus of Ativan which did improve symptoms, no further seizure activity noted. Labs reviewed and did reveal elevated lactic acid. Elevated BUN and creatinine. Patient was given IV fluids. Vital signs were satisfactory with no major abnormalities except for her initial low blood pressure. She'll be admitted to the hospital for further evaluation. She was started on seizure medications. - Lab Data Result diagrams: 08/12/19 22:18 08/12/19 22:17 Lab Results 08/12/19 08/12/19 08/12/19 Range/Units 22:17 22:18 22:18 WBC 9.1 (3.8-10.6) k/uL RBC 4.05 (3.80-5.40) m/uL Hgb 11.4 (11.4-16.0) gm/dL Hct 37.8 (34.0-46.0) % MCV 93.2 (80.0-100.0) fL MCH 28.2 (25.0-35.0) pg MCHC 30.3 L (31.0-37.0) g/dL RDW 14.4 (11.5-15.5) % Plt Count 357 (150-450) k/uL Neutrophils % 70 % Lymphocytes % 23 % Monocytes % 5 % Eosinophils % 1 % Basophils % 0 % Neutrophils # 6.4 (1.3-7.7) k/uL Lymphocytes # 2.1 (1.0-4.8) k/uL Monocytes # 0.4 (0-1.0) k/uL Eosinophils # 0.1 (0-0.7) k/uL Basophils # 0.0 (0-0.2) k/uL Hypochromasia Slight PT 10.5 (9.0-12.0) sec INR 1.0 (<1.2) APTT 19.3 L (22.0-30.0) sec Sodium 142 (137-145) mmol/L Potassium 4.1 (3.5-5.1) mmol/L Chloride 105 (98-107) mmol/L Carbon Dioxide 28 (22-30) mmol/L Anion Gap 9 mmol/L BUN 68 H (7-17) mg/dL Creatinine 1.39 H (0.52-1.04) mg/dL Est GFR (CKD-EPI)AfAm 48 (>60 ml/min/1.73 sqM) Est GFR (CKD-EPI)NonAf 42 (>60 ml/min/1.73 sqM) Glucose 305 H (74-99) mg/dL Plasma Lactic Acid [place] (0.7-2.0) mmol/L Calcium 9.7 (8.4-10.2) mg/dL Total Bilirubin 0.2 (0.2-1.3) mg/dL AST 18 (14-36) U/L ALT 17 (4-34) U/L Alkaline Phosphatase 95 (38-126) U/L Troponin I (0.000-0.034) ng/mL Total Protein 7.8 (6.3-8.2) g/dL Albumin 3.9 (3.5-5.0) g/dL Amylase <30 L (30-110) U/L Lipase 19 L (23-300) U/L Urine Color Urine Appearance (Clear) Urine pH (5.0-8.0) Ur Specific [place] (1.001-1.035) Urine Protein (Negative) Urine Glucose (UA) (Negative) Urine Ketones (Negative) Urine Blood (Negative) Urine Nitrite (Negative) Urine Bilirubin (Negative) Urine Urobilinogen (<2.0) mg/dL Ur Leukocyte Esterase (Negative) Urine RBC (0-5) /hpf Urine WBC (0-5) /hpf Ur Squamous Epith Cells (0-4) /hpf Urine Bacteria (None) /hpf Hyaline Casts (0-2) /lpf Urine Mucus (None) /hpf Phenytoin ug/mL Valproic Acid ug/mL Carbamazepine ug/mL 08/12/19 08/12/19 08/12/19 Range/Units 22:18 22:18 22:18 WBC (3.8-10.6) k/uL RBC (3.80-5.40) m/uL Hgb (11.4-16.0) gm/dL Hct (34.0-46.0) % MCV (80.0-100.0) fL MCH (25.0-35.0) pg MCHC (31.0-37.0) g/dL RDW (11.5-15.5) % Plt Count (150-450) k/uL Neutrophils % % Lymphocytes % % Monocytes % % Eosinophils % % Basophils % % Neutrophils # (1.3-7.7) k/uL Lymphocytes # (1.0-4.8) k/uL Monocytes # (0-1.0) k/uL Eosinophils # (0-0.7) k/uL Basophils # (0-0.2) k/uL Hypochromasia PT (9.0-12.0) sec INR (<1.2) APTT (22.0-30.0) sec Sodium (137-145) mmol/L Potassium (3.5-5.1) mmol/L Chloride (98-107) mmol/L Carbon Dioxide (22-30) mmol/L Anion Gap mmol/L BUN (7-17) mg/dL Creatinine (0.52-1.04) mg/dL Est GFR (CKD-EPI)AfAm (>60 ml/min/1.73 sqM) Est GFR (CKD-EPI)NonAf (>60 ml/min/1.73 sqM) Glucose (74-99) mg/dL Plasma Lactic Acid [place] 3.4 H* (0.7-2.0) mmol/L Calcium (8.4-10.2) mg/dL Total Bilirubin (0.2-1.3) mg/dL AST (14-36) U/L ALT (4-34) U/L Alkaline Phosphatase (38-126) U/L Troponin I <0.012 (0.000-0.034) ng/mL Total Protein (6.3-8.2) g/dL Albumin (3.5-5.0) g/dL Amylase (30-110) U/L Lipase (23-300) U/L Urine Color Urine Appearance (Clear) Urine pH (5.0-8.0) Ur Specific [place] (1.001-1.035) Urine Protein (Negative) Urine Glucose (UA) (Negative) Urine Ketones (Negative) Urine Blood (Negative) Urine Nitrite (Negative) Urine Bilirubin (Negative) Urine Urobilinogen (<2.0) mg/dL Ur Leukocyte Esterase (Negative) Urine RBC (0-5) /hpf Urine WBC (0-5) /hpf Ur Squamous Epith Cells (0-4) /hpf Urine Bacteria (None) /hpf Hyaline Casts (0-2) /lpf Urine Mucus (None) /hpf Phenytoin <3.0 ug/mL Valproic Acid 21.4 ug/mL Carbamazepine <3.0 ug/mL 08/12/19 Range/Units 22:50 WBC (3.8-10.6) k/uL RBC (3.80-5.40) m/uL Hgb (11.4-16.0) gm/dL Hct (34.0-46.0) % MCV (80.0-100.0) fL MCH (25.0-35.0) pg MCHC (31.0-37.0) g/dL RDW (11.5-15.5) % Plt Count (150-450) k/uL Neutrophils % % Lymphocytes % % Monocytes % % Eosinophils % % Basophils % % Neutrophils # (1.3-7.7) k/uL Lymphocytes # (1.0-4.8) k/uL Monocytes # (0-1.0) k/uL Eosinophils # (0-0.7) k/uL Basophils # (0-0.2) k/uL Hypochromasia PT (9.0-12.0) sec INR (<1.2) APTT (22.0-30.0) sec Sodium (137-145) mmol/L Potassium (3.5-5.1) mmol/L Chloride (98-107) mmol/L Carbon Dioxide (22-30) mmol/L Anion Gap mmol/L BUN (7-17) mg/dL Creatinine (0.52-1.04) mg/dL Est GFR (CKD-EPI)AfAm (>60 ml/min/1.73 sqM) Est GFR (CKD-EPI)NonAf (>60 ml/min/1.73 sqM) Glucose (74-99) mg/dL Plasma Lactic Acid [place] (0.7-2.0) mmol/L Calcium (8.4-10.2) mg/dL Total Bilirubin (0.2-1.3) mg/dL AST (14-36) U/L ALT (4-34) U/L Alkaline Phosphatase (38-126) U/L Troponin I (0.000-0.034) ng/mL Total Protein (6.3-8.2) g/dL Albumin (3.5-5.0) g/dL Amylase (30-110) U/L Lipase (23-300) U/L Urine Color Yellow Urine Appearance Clear (Clear) Urine pH 5.5 (5.0-8.0) Ur Specific [place] 1.020 (1.001-1.035) Urine Protein 1+ H (Negative) Urine Glucose (UA) 3+ H (Negative) Urine Ketones Negative (Negative) Urine Blood Negative (Negative) Urine Nitrite Negative (Negative) Urine Bilirubin Negative (Negative) Urine Urobilinogen <2.0 (<2.0) mg/dL Ur Leukocyte Esterase Negative (Negative) Urine RBC 1 (0-5) /hpf Urine WBC <1 (0-5) /hpf Ur Squamous Epith Cells <1 (0-4) /hpf Urine Bacteria Rare H (None) /hpf Hyaline Casts 288 H (0-2) /lpf Urine Mucus Rare H (None) /hpf Phenytoin ug/mL Valproic Acid ug/mL Carbamazepine ug/mL - Radiology Data Radiology results: report reviewed, image reviewed KUB x-ray is obtained. Report was reviewed in its entirety. Impression by Dr. Churchill shows nonacute abdomen. No change. Two-view x-ray of the chest is obtained. Report reviewed in its entirety. Impression by Dr. Churchill shows normal chest. It is essentially complete c learing of the left lower lobe pleural effusion and mild infiltrate compared to old exam. Disposition Clinical Impression: Seizures Disposition: ADMITTED IP TO THIS [facility] Condition: Serious Referrals: Sherlyn Chen MD [Primary Care Provider] - 1-2 days Decision to Admit Reason: Admit from EC Decision Date: 08/13/19 Decision Time: 00:43
--- NOTE | 2019-08-12 22:49 | XR ---
EXAMINATION TYPE: XR KUB DATE OF EXAM: 08/12/2019 COMPARISON: June 01, 2019 HISTORY: Abdominal pain TECHNIQUE: FINDINGS: Supine view shows a normal bowel gas pattern. There is no sign of intestinal obstruction or pneumoperitoneum. Fecal pattern is normal. There is no evidence of a mass. There are phleboliths in the pelvis. Bony structures are intact. There are no pathologic calcifications over the kidneys. IMPRESSION: Nonacute abdomen. No change.
[2019-08-12 22:59] LABS: Prothrombin Time 10.5 sec (9.0-12.0)
[2019-08-12 23:11] LABS: Partial Thromboplastin Time 19.3 sec (22.0-30.0)
[2019-08-12 23:25] LABS: Appearance,Urine Clear (Clear); Bacteria,Urine Rare /hpf; Bilirubin,Urine Negative (Negative); Blood,Urine Negative (Negative); Color,Urine Yellow; Glucose,Urine (UA) 3+ (Negative); Hyaline Casts,Urine 288 /lpf (0-2); Ketones,Urine Negative (Negative); Leukocyte Esterase,Urine Negative (Negative); Mucus,Urine Rare /hpf; Nitrite,Urine Negative (Negative); PH, Urine 5.5 (5.0-8.0); Protein,Urine 1+ (Negative); RBC,Urine 1 /hpf (0-5); Squamous Epithelial Cell,Urine <1 /hpf (0-4); Urobilinogen,Urine <2.0 mg/dL (<2.0); WBC,Urine <1 /hpf (0-5)
[2019-08-13] MEDS ORDERED: levETIRAcetam IV 1,500 MG in SALINE 1 100ML.BAG IVPB STA (00:27)
[2019-08-13] MEDS ORDERED: NALOXONE 0.4 MG/ML 1 ML VIAL IV PRN (00:37)
[2019-08-13 01:03] LABS: Carbamazepine (Tegretol) <3.0 ug/mL; Phenytoin (Dilantin) <3.0 ug/mL
[2019-08-13 01:05] LABS: Valproic Acid (Depakene) 21.4 ug/mL
[2019-08-13] MEDS: SODIUM CHLORIDE 0.9% 1,000 ML IV SCH ×2 (01:12→16:04)
[2019-08-13] MEDS ORDERED: LORazepam 2 MG/ML INJ IV PRN (01:45)
[2019-08-13 02:34] LABS: Glucose,Whole Blood 78 mg/dL (75-99)
[2019-08-13 02:50] LABS: Glucose,Whole Blood 72 mg/dL (75-99)
[2019-08-13 03:01] LABS: Glucose,Whole Blood 68 mg/dL (75-99)
[2019-08-13 03:16] LABS: Glucose,Whole Blood 93 mg/dL (75-99)
[2019-08-13] MEDS: levETIRAcetam IV 1,000 MG in SALINE 1 100ML.BAG IVPB SCH ×2 (07:14→20:34)
[2019-08-13 07:47] LABS: Glucose,Whole Blood 258 mg/dL (75-99)
--- NOTE | 2019-08-13 11:08 | P.HPIM ---
History of Present Illness H&P Date: 08/13/19 Melva Jackson is a 58-year-old female with extensive past medical history who presented to [facility] emergency room after having an episode of syncope at home. Family described that the patient was attempting to transfer from her wheelchair to the toilet seat when she fell backward she was an responsive her eyes were open there was no tonic or clonic movements, patient was brought in to [facility] emergency room where she was evaluated. During her emergency room stay patient had a second episode of what seemed to be a seizure activity, patient was an responsive her head was rotated to the left and her eyes were rolled back in her head and at this time she had tonic-clonic movements. She was started on IV Keppra and was admitted to medical floor. Patient has unclear history of seizure disorder, she has been maintained on valproic acid. She was evaluated twice by neurology in [address] Barrera, and in [address] Foy and there was no mention of seizure diagnosis during those 2 consults. In 2014 patient had a major stroke affecting the right MCA and RUSTAM, she has total occlusion of the right internal carotid artery. Patient has multiple medical problems including insulin-dependent diabetes mellitus that is suboptimally controlled, she has sequela of her stroke in 2014 was left upper extremity and left lower extremity weakness and muscle contracture, she has peripheral vascular disease with open wounds on the right lower extremity with history of multiple toe amputation in the past, patient also has known history of hypertension, hyperlipidemia, asthma, depression, anemia, she has suboptimal living conditions at home. Patient was seen and evaluated on the medical floor on 08/13/2019 she is alert somnolent in no apparent distress, she is answering a few questions appropriately prior to closing her eyes again, she is complaining of chest pain and abdominal pain, she states that she is in the hospital because she had a seizure, she denies any complaints otherwise Past Medical History Past Medical History: Asthma, Coronary Artery Disease (CAD), Chest Pain / Angina, Heart Failure, COPD, CVA/TIA, Diabetes Mellitus, Deep Vein Thrombosis (DVT), Eye Disorder, GERD/Reflux, Hyperlipidemia, Hypertension, Myocardial Infarction (VA), Neurologic Disorder, Osteoarthritis (OA), Pneumonia, Renal Disease Additional Past Medical History / Comment(s): IDDM (brittle), DKAs, neuropathy bilateral hands/feet, retinopathy bilateral eyes, cellulitis R foot, R great toe and 2nd toe infections/amputations, current wound R foot-being seen in [facility], renal failure, anemia, CVAs with L sided paralysis, headaches started after CVAs, brain lesions, DVT R axillae, low back pain, varicosities, seizure many years ago (2001), hypothyroid, constipation, bilateral tinnitis occasionally, sinus problems. Last Myocardial Infarction Date:: 2011 History of Any Multi-Drug Resistant Organisms: MRSA Date of last positivie culture/infection: 09/06/17 MDRO Source:: Right Foot Past Surgical History: Appendectomy, Section, Cholecystectomy, Heart Catheterization With Stent, Hysterectomy, Orthopedic Surgery Additional Past Surgical History / Comment(s): PCI with multiple stents, R great toe and 2nd toe amps, debridements R foot ulcer, L shoulder surgery to remove bone, bronchoscopy, EGD, colonoscopy, R arm port since removed, bilateral cataract removals/lens implants. Past Anesthesia/Blood Transfusion Reactions: No Reported Reaction Additional Past Anesthesia/Blood Transfusion Reaction / Comment(s): HX OF BLOOD TRANSFUSION- NO REACTION Date of Last Stent Placement:: July 2012 Past Psychological History: Anxiety, Bipolar, Depression Additional Psychological History / Comment(s): Pt has a legal guardian, Sera Rodriguez, who is pt's sister. Currently her legal guardian is hospitalized. Pt has a caregiver, No, who resides with her. Pt is wheelchair bound d/t CVA with L sided paralysis arm and leg. She has a shower chair and a glucometer. Her sister or caregiver drive her to [place]. Smoking Status: Former smoker Past Alcohol Use History: None Reported Additional Past Alcohol Use History / Comment(s): Pt started smoking in 1982 and quit in 2018. Using marijuana edibles occasionally but none for a "long time" Past Drug Use History: Marijuana Additional Drug Use History / Comment(s): using marijuana edibles - Past Family History Father Family Medical History: Unable to Obtain, Coronary Artery Disease (CAD), Diabetes Mellitus Mother Family Medical History: COPD Medications and Allergies Home Medications Medication Instructions Recorded Confirmed Type Albuterol Inhaler [Ventolin Hfa 2 puff INHALATION RT-Q4H PRN 07/19/15 06/22/19 History Inhaler] Famotidine [Pepcid] 20 mg PO DAILY 07/19/15 06/22/19 History Valproic Acid [Depakene] 250 mg PO DAILY 07/19/15 06/22/19 History Ergocalciferol [Vitamin D2 50,000 unit PO SA 03/05/16 06/22/19 History (DRISDOL)] HYDROcodone/APAP 10-325MG [[place] 1 tab PO Q6H PRN 10/03/16 06/22/19 History 10-325] DULoxetine HCL [Cymbalta] 60 mg PO DAILY 02/16/17 06/22/19 History Ondansetron [Zofran] 4 mg PO DAILY PRN 09/06/17 06/22/19 History Atorvastatin [Lipitor] 20 mg PO DAILY 12/28/18 06/22/19 History QUEtiapine [SEROquel] 100 mg PO HS 12/28/18 06/22/19 History Vitamin B Complex With Vit C 1 tab PO DAILY 06/01/19 06/22/19 History Aspirin [Adult Low Dose Aspirin EC] 81 mg PO DAILY 06/09/19 06/22/19 History Ferrous Sulfate [Iron (65 MG 325 mg PO DAILY 06/09/19 06/22/19 History Elemental)] DAPTOmycin [Daptomycin] 350 mg IV DAILY #40 vial 06/16/19 06/22/19 Rx INSULIN ASPART (NovoLOG) [NovoLOG See Protocol SQ ACHS 06/22/19 06/22/19 History (formulary)] ALPRAZolam [Xanax] 0.5 mg PO Q8HR PRN tab 06/30/19 Rx DAPTOmycin [Cubicin] 350 mg IVPB Q24HR vial 06/30/19 Rx Insulin Detemir (Levemir) [Levemir] 15 unit SQ HS syr 06/30/19 Rx QUEtiapine [SEROquel] 25 mg PO DAILY@1200 tab 06/30/19 Rx Allergies Allergy/AdvReac Type Severity Reaction Status Date / Time Barbiturates Allergy Rash/Hives Verified 08/12/19 21:44 cephalexin monohydrate Allergy Rash/Hives Verified 08/12/19 21:44 [From Keflex] morphine Allergy Rash/Hives Verified 08/12/19 21:44 Penicillins Allergy Rash/Hives Verified 08/12/19 21:44 phenobarbital Allergy Swelling Verified 08/12/19 21:44 venom-honey bee Allergy Swelling Verified 08/12/19 21:44 [bee venom (honey bee)] amlodipine besylate AdvReac Vomiting Verified 08/12/19 21:44 [[address] [facility]] Physical Exam Vitals: Vital Signs Temp Pulse Pulse Resp BP BP Pulse Ox 08/13/19 07:30 18 08/13/19 07:00 97.7 F 91 18 167/83 98 08/13/19 04:37 94 18 08/13/19 03:20 98.5 F 94 18 128/75 99 08/13/19 02:29 97.5 F L 83 18 110/70 98 08/13/19 01:00 98.2 F 87 13 115/72 100 08/13/19 00:30 94 12 142/67 99 08/13/19 00:00 96 18 110/68 100 08/12/19 23:30 91 15 131/76 99 08/12/19 23:00 96 16 139/85 100 08/12/19 22:30 98 20 140/89 97 08/12/19 22:07 100 18 128/85 99 08/12/19 21:40 98.1 F 109 H 18 90/59 94 L Intake and Output 08/12/19 08/13/19 08/13/19 22:59 06:59 14:59 Intake Total 450 Balance 450 Intake: Intake, IV Titration 450 Amount Sodium Chloride 0.9% 1, 450 000 ml @ 75 mls/hr IV . [id number] [facility] Rx#:[id number] Other: Voiding Method Bedside Commode Bedside Commode Bedpan Bedpan Weight 55.338 kg 55.338 kg In general patient is alert somnolent in no apparent distress HEENT head normocephalic and atraumatic Neck is supple no JVD no goiter no lymphadenopathy Chest exam reveals a few scattered crackles bilaterally no wheezing Cardiac exam reveals regular heart sounds no gallops no murmurs Abdomen is soft nontender no organomegaly with normal bowel sounds Extremity exam reveals no edema no cyanosis or clubbing, right foot is bandaged, patient had recent toe amputation Neurological examination reveals left sided weakness and muscle contracture involving the upper and lower extremities which is chronic no other acute neurological deficit at this Results CBC & Chem 7: 08/12/19 22:18 08/12/19 22:17 Labs: Abnormal Lab Results - Last 24 Hours (Table) 08/12/19 08/12/19 08/12/19 Range/Units 22:17 22:18 22:18 MCHC 30.3 L (31.0-37.0) g/dL APTT 19.3 L (22.0-30.0) sec BUN 68 H (7-17) mg/dL Creatinine 1.39 H (0.52-1.04) mg/dL Glucose 305 H (74-99) mg/dL POC Glucose (mg/dL) (75-99) mg/dL Plasma Lactic Acid [place] (0.7-2.0) mmol/L Amylase <30 L (30-110) U/L Lipase 19 L (23-300) U/L Urine Protein (Negative) Urine Glucose (UA) (Negative) Urine Bacteria (None) /hpf Hyaline Casts (0-2) /lpf Urine Mucus (None) /hpf 08/12/19 08/12/19 08/13/19 Range/Units 22:18 22:50 02:49 MCHC (31.0-37.0) g/dL APTT (22.0-30.0) sec BUN (7-17) mg/dL Creatinine (0.52-1.04) mg/dL Glucose (74-99) mg/dL POC Glucose (mg/dL) 72 L (75-99) mg/dL Plasma Lactic Acid [place] 3.4 H* (0.7-2.0) mmol/L Amylase (30-110) U/L Lipase (23-300) U/L Urine Protein 1+ H (Negative) Urine Glucose (UA) 3+ H (Negative) Urine Bacteria Rare H (None) /hpf Hyaline Casts 288 H (0-2) /lpf Urine Mucus Rare H (None) /hpf 08/13/19 08/13/19 Range/Units 02:59 07:38 MCHC (31.0-37.0) g/dL APTT (22.0-30.0) sec BUN (7-17) mg/dL Creatinine (0.52-1.04) mg/dL Glucose (74-99) mg/dL POC Glucose (mg/dL) 68 L 258 H (75-99) mg/dL Plasma Lactic Acid Conrado (0.7-2.0) mmol/L Amylase (30-110) U/L Lipase (23-300) U/L Urine Protein (Negative) Urine Glucose (UA) (Negative) Urine Bacteria (None) /hpf Hyaline Casts (0-2) /lpf Urine Mucus (None) /hpf Thrombosis Risk Factor Assmnt - Choose All That Apply Any of the Below Risk Factors Present?: Yes Each Factor Represents 1 point: Age 41-60 years Each Risk Factor Represents 3 Points: History of DVT/PE Thrombosis Risk Factor Assessment Total Risk Factor Score: 4 Thrombosis Risk Factor Assessment Level: Moderate Risk Assessment and Plan Plan: #1 likely seizure activity 2, at this time patient was started on Keppra in the emergency room, will obtain computed tomography scan of the brain, will obtain EEG, neurology consultation was requested. #2 insulin-dependent diabetes mellitus will resume home insulin and monitor closely #3 underlying history of peripheral vascular disease, with foot ulcer and multiple toe amputation in the past. #4 complaint of chest pain, will obtain EKG and serial cardiac enzymes #5 complaint of abdominal pain Will obtain abdominal ultrasound #6 dehydration was acute kidney injury was elevated BUN at 68 and elevated crea tinine at 1.39 will use gentle hydration and monitor. #7 medication and labs were reviewed please see orders will follow closely prognosis is guarded
--- NOTE | 2019-08-13 11:45 | CT ---
EXAMINATION TYPE: CT brain wo con DATE OF EXAM: 08/13/2019 COMPARISON: 06/29/2019 HISTORY: seizure CT DLP: 1099.4 mGycm Automated exposure control for dose reduction was used. FINDINGS: FINDINGS: There is no acute intracranial hemorrhage or midline shift identified. There is diffuse gina tricular and sulcal prominence consistent with diffuse cerebral atrophy. Large area of encephalomalac ia involving the entire right frontal hemisphere MCA is redemonstrated. There is some extension into the right temporal lobe and to lesser degree the right parietal lobe similar to prior. Vascular calci fication distal internal carotid arteries bilaterally redemonstrated. Globes are intact and visualize d paranasal sinuses are clear. IMPRESSION: STABLE LARGE AREA OF ENCEPHALOMALACIA INVOLVING THE RIGHT TEMPORAL, PARIETAL AND FRONTAL LOBES UNCHAN GED FROM THE PRIOR EXAM. DYSTROPHIC AREAS OF CALCIFICATION ARE ALSO STABLE. 2. DEGENERATIVE CHANGE OF THE GREATER CENTRAL COMPONENT CORRELATE FOR NORMAL PRESSURE HYDROCEPHALUS O R HYDROCEPHALUS. FINDINGS ARE SIMILAR TO THE PRIOR EXAM.
[2019-08-13 12:06] LABS: Glucose,Whole Blood 173 mg/dL (75-99)
[2019-08-13] MEDS: INSULIN ASPART (NovoLOG) 100 UNIT/ML VIAL SQ SCH ×3 (12:22→20:34)
[2019-08-13] MEDS ORDERED: ALPRAZolam 0.5 MG TAB PO PRN (13:27)
[2019-08-13 17:03] LABS: Glucose,Whole Blood 330 mg/dL (75-99)
[2019-08-13 20:22] LABS: Glucose,Whole Blood 236 mg/dL (75-99)
[2019-08-13] MEDS: QUEtiapine 100 MG TAB PO SCH (20:34)
[2019-08-13] MEDS: ATORVASTATIN 20 MG TAB PO SCH (20:34)
[2019-08-13] MEDS ORDERED: INSULIN DETEMIR (LEVEMIR) 100 UNIT/ML SYR SQ SCH (21:00)
[2019-08-14 01:07] LABS: Glucose,Whole Blood 43 mg/dL (75-99)
[2019-08-14 01:24] LABS: Glucose,Whole Blood 56 mg/dL (75-99)
[2019-08-14 01:43] LABS: Glucose,Whole Blood 101 mg/dL (75-99)
[2019-08-14] MEDS: SODIUM CHLORIDE 0.9% 1,000 ML IV SCH ×3 (03:20→21:40)
[2019-08-14 05:36] LABS: Glucose,Whole Blood 262 mg/dL (75-99)
[2019-08-14 06:45] LABS: Glucose,Whole Blood 264 mg/dL (75-99)
[2019-08-14] MEDS: INSULIN ASPART (NovoLOG) 100 UNIT/ML VIAL SQ SCH ×4 (06:59→21:30)
[2019-08-14] MEDS: FAMOTIDINE 20 MG TAB PO SCH (07:00)
[2019-08-14] MEDS: DULoxetine HCL 60 MG CAPSULE.DR PO SCH (07:00)
[2019-08-14] MEDS: FERROUS SULFATE 325 MG TAB PO SCH (07:00)
[2019-08-14] MEDS: ASPIRIN 81 MG PO SCH (07:01)
[2019-08-14] MEDS: QUEtiapine 25 MG TAB PO SCH (07:01)
[2019-08-14 08:31] LABS: ALT 14 U/L (4-34); AST 18 U/L (14-36); African American GFR (CKD) >90 (>60 ml/min/1.73 sqM); Albumin 2.7 g/dL (3.5-5.0); Alkaline Phosphatase 72 U/L (38-126); Anion Gap 6 mmol/L; Blood Urea Nitrogen 28 mg/dL (7-17); Calcium 8.2 mg/dL (8.4-10.2); Carbon Dioxide 24 mmol/L (22-30); Chloride 110 mmol/L (98-107); Glucose 222 mg/dL (74-99); Non-African American GFR(CKD) 79 (>60 ml/min/1.73 sqM); Potassium 4.4 mmol/L (3.5-5.1); Sodium 140 mmol/L (137-145); Total Bilirubin <0.1 mg/dL (0.2-1.3)
[2019-08-14 08:32] LABS: Basophils % (A) 0 %; Eosinophils # (A) 0.1 k/uL (0-0.7); Eosinophils % (A) 2 %; HCT 32.2 % (34.0-46.0); Hypochromasia Moderate; Lymphocytes # (A) 2.7 k/uL (1.0-4.8); Lymphocytes % (A) 37 %; MCH 28.6 pg (25.0-35.0); MCHC 30.4 g/dL (31.0-37.0); MCV 94.2 fL (80.0-100.0); Mean Platelet Volume 8.5; Monocytes # (A) 0.4 k/uL (0-1.0); Monocytes % (A) 5 %; Neutrophils # (A) 3.8 k/uL (1.3-7.7); Neutrophils % (A) 53 %; Platelet Count 242 k/uL (150-450); RBC 3.41 m/uL (3.80-5.40); RDW 14.6 % (11.5-15.5); WBC 7.2 k/uL (3.8-10.6)
[2019-08-14 08:39] LABS: HGB 9.8 gm/dL (11.4-16.0)
[2019-08-14] MEDS ORDERED: VITAMIN B COMPLEX PO SCH (09:00)
[2019-08-14] MEDS ORDERED: ASCORBIC ACID PO SCH (09:00)
[2019-08-14] MEDS ORDERED: DIVALPROEX 250 MG TABLET.DR PO SCH (09:00)
[2019-08-14] MEDS: levETIRAcetam IV 1,000 MG in SALINE 1 100ML.BAG IVPB SCH ×2 (10:25→21:39)
[2019-08-14 11:58] LABS: Glucose,Whole Blood 71 mg/dL (75-99)
--- NOTE | 2019-08-14 14:08 | P.CNNES ---
History of Present Illness Consult date: 08/14/19 Requesting physician: Michell Lujan Reason for Consult: Seizures History of Present Illness: Patient is a 58-year-old female with history of previous CVA with chronic left hemiparesis, came to the hospital for possible seizures. Patient does not remember details about her history. No family members were present. According to ED records, it was mentioned that family was present, when she was attempting to use the bathroom, when she fell backwards. They deny any body shaking. Her eyes were open but she was not responding. She was breathing. Patient does have a remote history of seizure. Patient has not been eating or drinking lately due to lack of appetite. Patient does have history of eating disorder, and tries to induce vomiting. There was no cough, congestion. No rash. Patient arrived to the hospital at 9:38 PM on 08/12/2019. Patient apparently had a seizure-like activity while in the ED, which her head was rolled to the left, eyes rolled back in her head and she had tonic-clonic movement. She was given Ativan, which did improve symptoms with no further seizure activity noted. Patient has been on Depakote 250 mg once daily. Her Depakote level was 21.4 on arrival to the ED. Patient at present offers no complaints. Patient had computed tomography scan of the head, which again revealed stable large area of encephalomalacia involving the right temporal parietal and frontal lobes unchanged from the prior examination with dystrophic areas of calcification are also stable. Degenerative changes of the brain. Radiologist reported possibility of NPH, although on my review, there is no evidence of NPH. EKG showed sinus rhythm with occasional PVCs, possible left atrial enlargement, prolonged QT. Chest x-ray showed normal chest. Patient's blood test shows WBC 7.2 hemoglobin 9.8, platelets 242, Chem-7 is normal. Liver panel is normal. Previous records revealed normal factor V Leiden, ESR 18, hemoglobin A1c 8.5 on 06/28/2019, normal ammonia <9, on 06/29/2019. Her total cholesterol 194, LDL 96, HDL 65 and triglycerides 161, B12 367, folate normal, TFTs normal, vitamin D 98. SUKUMAR negative, ANCA C&P negative, anticardiolipin antibody borderline 12.9/12.5. DsDNA negative. 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 Severe tortuosity of the proximal left ICA in combination with patient motion, the exact degree of narrowing at the proximal left ICA is difficult to assess but is over a 50%. The remainder of the left ICA is widely patent. Diminutive intracranial anterior circulation on the right likely being supplied from the retrograde flow from the left side and posterior circulation. Old right-sided intracranial infarct. Her last 2-D echo from 12/29/2018 showed sinus rhythm, EF 60-65%. Normal left atrial size. EKG normal sinus rhythm Patient states that she lives by herself. She is a caregiver all the time at home. She had 2 boys, who live in [facility] and GERD who live in [place]. Patient has history of an acute left hemiparesis on 06/14/2014. Patient states that she has smoked 2 packs per day, quit before her CVA. Review of Systems Denies headache, problem with the vision, hoarseness without dysphagia. Patient does have chronic left hemiparesis. She also has amputated some toe of the right foot. Denies any nausea vomiting diarrhea. Patient did have some chest pain prior to arrival. Past Medical History Past Medical History: Asthma, Coronary Artery Disease (CAD), Chest Pain / Angina, Heart Failure, COPD, CVA/TIA, Diabetes Mellitus, Deep Vein Thrombosis (DVT), Eye Disorder, GERD/Reflux, Hyperlipidemia, Hypertension, Myocardial Infarction (MN), Neurologic Disorder, Osteoarthritis (OA), Pneumonia, Renal Disease Additional Past Medical History / Comment(s): IDDM (brittle), DKAs, neuropathy bilateral hands/feet, retinopathy bilateral eyes, cellulitis R foot, R great toe and 2nd toe infections/amputations, current wound R foot-being seen in [facility], renal failure, anemia, CVAs with L sided paralysis, headaches started after CVAs, brain lesions, DVT R axillae, low back pain, varicosities, seizure many years ago (2001), hypothyroid, constipation, bilateral tinnitis occasionally, sinus problems. Last Myocardial Infarction Date:: 2011 History of Any Multi-Drug Resistant Organisms: MRSA Date of last positivie culture/infection: 09/06/17 MDRO Source:: Right Foot Past Surgical History: Appendectomy, Section, Cholecystectomy, Heart Catheterization With Stent, Hysterectomy, Orthopedic Surgery Additional Past Surgical History / Comment(s): PCI with multiple stents, R great toe and 2nd toe amps, debridements R foot ulcer, L shoulder surgery to remove bone, bronchoscopy, EGD, colonoscopy, R arm port since removed, bilateral cat aract removals/lens implants. Past Anesthesia/Blood Transfusion Reactions: No Reported Reaction Additional Past Anesthesia/Blood Transfusion Reaction / Comment(s): HX OF BLOOD TRANSFUSION- NO REACTION Date of Last Stent Placement:: July 2012 Past Psychological History: Anxiety, Bipolar, Depression Additional Psychological History / Comment(s): Pt has a legal guardian, Sera Rodriguez, who is pt's sister. Currently her legal guardian is hospitalized. Pt has a caregiver, No, who resides with her. Pt is wheelchair bound d/t CVA with L sided paralysis arm and leg. She has a shower chair and a glucometer. Her sister or caregiver drive her to [place]. Smoking Status: Former smoker Past Alcohol Use History: None Reported Additional Past Alcohol Use History / Comment(s): Pt started smoking in 1982 and quit in 2017. Using marijuana edibles occasionally but none for a "long time" Past Drug Use History: Marijuana Additional Drug Use History / Comment(s): using marijuana edibles - Past Family History Father Family Medical History: Unable to Obtain, Coronary Artery Disease (CAD), Diabetes Mellitus Mother Family Medical History: COPD Medications and Allergies Home Medications Medication Instructions Recorded Confirmed Type Albuterol Inhaler [Ventolin Hfa 2 puff INHALATION RT-Q4H PRN 07/19/15 08/13/19 History Inhaler] Famotidine [Pepcid] 20 mg PO DAILY@89907/19/15 08/13/19 History Valproic Acid [Depakene] 250 mg PO DAILY@89907/19/15 08/13/19 History Ergocalciferol [Vitamin D2 50,000 unit PO SA@89903/05/16 08/13/19 History (DRISDOL)] HYDROcodone/APAP 10-325MG [[place] 1 tab PO Q6H PRN 10/03/16 08/13/19 History 10-325] DULoxetine HCL [Cymbalta] 60 mg PO DAILY@89902/16/17 08/13/19 History Ondansetron [Zofran] 4 mg PO DAILY PRN 09/06/17 08/13/19 History Atorvastatin [Lipitor] 20 mg PO DAILY@209912/28/18 08/13/19 History QUEtiapine [SEROquel] 100 mg PO HS@209912/28/18 08/13/19 History Vitamin B Complex With Vit C 1 tab PO DAILY 06/01/19 08/13/19 History Aspirin [Adult Low Dose Aspirin EC] 81 mg PO DAILY@0900 06/09/19 08/13/19 His tory Ferrous Sulfate [Iron (65 MG 325 mg PO DAILY@0900 06/09/19 08/13/19 History Elemental)] ALPRAZolam [Xanax] 0.5 mg PO Q8HR PRN tab 06/30/19 08/13/19 Rx Doxycycline Hyclate [Vibramycin] 100 mg PO BID 08/13/19 08/13/19 History INSULIN LISPRO (humaLOG) [humaLOG] See Protocol SQ ACHS 08/13/19 08/13/19 History Insulin Glargine,Hum.rec.anlog 20 unit SQ HS 08/13/19 08/13/19 History [Basaglar Kwikpen U-100] QUEtiapine [SEROquel] 25 mg PO DAILY@0900 08/13/19 08/13/19 History Allergies Allergy/AdvReac Type Severity Reaction Status Date / Time Barbiturates Allergy Rash/Hives Verified 08/13/19 12:53 cephalexin monohydrate Allergy Rash/Hives Verified 08/13/19 12:53 [From Keflex] morphine Allergy Rash/Hives Verified 08/13/19 12:53 Penicillins Allergy Rash/Hives Verified 08/13/19 12:53 phenobarbital Allergy Swelling Verified 08/13/19 12:53 venom-honey bee Allergy Swelling Verified 08/13/19 12:53 [bee venom (honey bee)] amlodipine besylate AdvReac Vomiting Verified 08/13/19 12:53 [From Norvasc] Physical Examination - Vital Signs Vital Signs: Vital Signs Temp Pulse Resp BP Pulse Ox 08/14/19 07:00 97.4 F L 86 18 149/79 99 08/14/19 01:05 97.4 F L 82 17 139/66 96 08/13/19 18:40 98.4 F 94 18 151/80 98 08/13/19 15:00 98.6 F 87 16 156/81 Intake and Output 08/13/19 08/14/19 08/14/19 22:59 06:59 14:59 Intake Total 325 600 Balance 325 600 Intake: Intake, IV Titration 325 600 Amount Sodium Chloride 0.9% 1, 225 600 000 ml @ 75 mls/hr IV . [id number] [facility] Rx#:[id number] levETIRAcetam IV 1,000 mg 100 In Saline 1 100ml.bag @ 400 mls/hr IVPB Q12HR [facility] Rx#:[id number] Other: Voiding Method Bedside Commode Bedside Commode Bedside Commode Bedpan Bedpan Bedpan Diaper Diaper Diaper Incontinent Incontinent Incontinent # Voids 1 2 1 # Bowel Movements 1 On examination patient is a middle aged female, who appears older than her stated age. No obvious bruit S1 and S2 audible. Patient has peripheral vascular disease. Patient has amputated big toe and the second toe of the right foot. Patient is alert and awake. Patient knows that she is in [facility] in [facility]. She thinks it is March and the year is 2019. She knows her age and the name of the current president. Speech and language functions are normal. Attention and concentration fund of knowledge is somewhat limited. On cranial examination pupils are round and reactive to light, visual campuzano are full on confrontation with no neglect. Extra ocular muscles are intact. Patient has left facial weakness, central type. Tongue protrudes the midline. Palatal elevation normal on muscle strength testing the strength appears normal in the right arm and right leg. On the left side her left arm is completely spastic paretic. Her left leg at hip flexion is about 3+ to 4 ankle is very weak. Reflexes are brisk appears on the left with the Babinski in the left. Sensory touch is equal with no neglect. No ataxia for [id number] on the right. Cannot assess it on the left. Results - Laboratory Findings CBC and BMP: 08/14/19 07:24 08/14/19 07:24 Abnormal Lab Findings: Abnormal Labs 08/12/19 08/12/19 08/12/19 22:17 22:18 22:18 RBC Hgb Hct MCHC 30.3 L APTT 19.3 L Chloride BUN 68 H Creatinine 1.39 H Glucose 305 H POC Glucose (mg/dL) Plasma Lactic Acid Conrado Calcium Total Bilirubin Total Protein Albumin Amylase <30 L Lipase 19 L Urine Protein Urine Glucose (UA) Urine Bacteria Hyaline Casts Urine Mucus 08/12/19 08/12/19 08/13/19 22:18 22:50 02:49 RBC Hgb Hct MCHC APTT Chloride BUN Creatinine Glucose POC Glucose (mg/dL) 72 L Plasma Lactic Acid Conrado 3.4 H* Calcium Total Bilirubin Total Protein Albumin Amylase Lipase Urine Protein 1+ H Urine Glucose (UA) 3+ H Urine Bacteria Rare H Hyaline Casts 288 H Urine Mucus Rare H 08/13/19 08/13/19 08/13/19 02:59 07:38 12:05 RBC Hgb Hct MCHC APTT Chloride BUN Creatinine Glucose POC Glucose (mg/dL) 68 L 258 H 173 H Plasma Lactic Acid Conrado Calcium Total Bilirubin Total Protein Albumin Amylase Lipase Urine Protein Urine Glucose (UA) Urine Bacteria Hyaline Casts Urine Mucus 08/13/19 08/13/19 08/14/19 17:01 20:20 01:06 RBC Hgb Hct MCHC APTT Chloride BUN Creatinine Glucose POC Glucose (mg/dL) 330 H 236 H 43 L Plasma Lactic Acid Conrado Calcium Total Bilirubin Total Protein Albumin Amylase Lipase Urine Protein Urine Glucose (UA) Urine Bacteria Hyaline Casts Urine Mucus 08/14/19 08/14/19 08/14/19 01:22 01:42 05:35 RBC Hgb Hct MCHC APTT Chloride BUN Creatinine Glucose POC Glucose (mg/dL) 56 L 101 H 262 H Plasma Lactic Acid Conrado Calcium Total Bilirubin Total Protein Albumin Amylase Lipase Urine Protein Urine Glucose (UA) Urine Bacteria Hyaline Casts Urine Mucus 08/14/19 08/14/19 08/14/19 06:44 07:24 07:24 RBC 3.41 L Hgb 9.8 L D Hct 32.2 L MCHC 30.4 L APTT Chloride 110 H BUN 28 H Creatinine Glucose 222 H POC Glucose (mg/dL) 264 H Plasma Lactic Acid Conrado Calcium 8.2 L Total Bilirubin <0.1 L Total Protein 6.0 L Albumin 2.7 L Amylase Lipase Urine Protein Urine Glucose (UA) Urine Bacteria Hyaline Casts Urine Mucus 08/14/19 11:56 RBC Hgb Hct MCHC APTT Chloride BUN Creatinine Glucose POC Glucose (mg/dL) 71 L Plasma Lactic Acid Conrado Calcium Total Bilirubin Total Protein Albumin Amylase Lipase Urine Protein Urine Glucose (UA) Urine Bacteria Hyaline Casts Urine Mucus Assessment and Plan Assessment: * 58-year-old female admitted with seizure at home, but had a witnessed focal onset seizure in the ER. Patient has history of old right hemispheric CVA, with chronic left hemiparesis. 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 Patient EEG showed epileptic focus in the involving the right temporal region. * History of CVA involving right MCA/RUSTAM vascular territory, with left sidney paresis, arm> leg. * Diabetes, poorly controlled * Hypertension * Dyslipidemia * X tobacco user. Plan: * Patient has developed post stroke epilepsy. Patient is currently on Depakote, but the levels are very subtherapeutic 21.4. * We will increase dose of Depakote to 250 mg 3 times a day. * I would suggest checking Depakote level in 2 weeks. * Suggest follow-up with a neurologist locally in town in 2-4 weeks, to manage her post stroke epilepsy and to adjust the antiepileptic medication, if needed. * Continue aspirin 81 mg daily. Patient at present is not on statins. Suggest checking fasting a.m. lipid panel. If abnormal, then would recommend Lipitor. * Optimize control of diabetes to target A1c <7.0. * Neurologically clear otherwise.
[2019-08-14] MEDS: DIVALPROEX 250 MG TABLET.DR PO SCH ×2 (15:00→21:38)
--- NOTE | 2019-08-14 15:21 | P.PN ---
Subjective Progress Note Date: 08/14/19 Melva Jackson is a 58-year-old female with extensive past medical history who presented to [facility] emergency room after having an episode of syncope at home. Family described that the patient was attempting to transfer from her wheelchair to the toilet seat when she fell backward she was an responsive her eyes were open there was no tonic or clonic movements, patient was brought in to [facility] emergency room where she was evaluated. During her emergency room stay patient had a second episode of what seemed to be a seizure activity, patient was an responsive her head was rotated to the left and her eyes were rolled back in her head and at this time she had tonic-clonic movements. She was started on IV Keppra and was admitted to medical floor. Patient has unclear history of seizure disorder, she has been maintained on valproic acid. She was evaluated twice by neurology in [address] Barrera, and in [address] Foy and there was no mention of seizure diagnosis during those 2 consults. In 2014 patient had a major stroke affecting the right MCA and RUSTAM, she has total occlusion of the right internal carotid artery. On 08/14/2019 patient was seen and examined on the medical floor, she is alert slightly somnolent in no apparent distress, no new seizure activity reported by nursing staff. Patient is feeling tired otherwise she denies any complaints, she had an episode of hypoglycemia at night, otherwise there is no fever or chills no headache or dizziness no chest pain no shortness of breath no cough no nausea or vomiting no abdominal pain no diarrhea and no urinary symptoms Objective - Vital Signs Vital signs: Vital Signs Temp 97.4 F L 08/14/19 07:00 Pulse 86 08/14/19 07:00 Resp 18 08/14/19 07:00 BP 149/79 08/14/19 07:00 Pulse Ox 99 08/14/19 07:00 Intake & Output 08/13/19 08/14/19 08/14/19 18:59 06:59 18:59 Intake Total 925 Balance 925 Intake: Intake, IV Titration 925 Amount Sodium Chloride 0.9% 1, 825 000 ml @ 75 mls/hr IV . [id number] [facility] Rx#:[id number] levETIRAcetam IV 1,000 mg 100 In Saline 1 100ml.bag @ 400 mls/hr IVPB Q12HR [facility] Rx#:[id number] Other: Voiding Method Bedside Commode Bedside Commode Bedside Commode Bedpan Bedpan Bedpan Diaper Diaper Incontinent Incontinent # Voids 2 2 # Bowel Movements 1 1 - Exam In general patient is alert somnolent in no apparent distress HEENT head normocephalic and atraumatic Neck is supple no JVD no goiter no lymphadenopathy Chest exam reveals a few scattered crackles bilaterally no wheezing Cardiac exam reveals regular heart sounds no gallops no murmurs Abdomen is soft nontender no organomegaly with normal bowel sounds Extremity exam reveals no edema no cyanosis or clubbing, right foot is bandaged, patient had recent toe amputation Neurological examination reveals left sided weakness and muscle contracture involving the upper and lower extremities which is chronic no other acute neurological deficit at this - Labs CBC & Chem 7: 08/14/19 07:24 08/14/19 07:24 Labs: Abnormal Lab Results - Last 24 Hours (Table) 08/13/19 08/13/19 08/14/19 Range/Units 17:01 20:20 01:06 RBC (3.80-5.40) m/uL Hgb (11.4-16.0) gm/dL Hct (34.0-46.0) % MCHC (31.0-37.0) g/dL Chloride (98-107) mmol/L BUN (7-17) mg/dL Glucose (74-99) mg/dL POC Glucose (mg/dL) 330 H 236 H 43 L (75-99) mg/dL Calcium (8.4-10.2) mg/dL Total Bilirubin (0.2-1.3) mg/dL Total Protein (6.3-8.2) g/dL Albumin (3.5-5.0) g/dL 08/14/19 08/14/19 08/14/19 Range/Units 01:22 01:42 05:35 RBC (3.80-5.40) m/uL Hgb (11.4-16.0) gm/dL Hct (34.0-46.0) % MCHC (31.0-37.0) g/dL Chloride (98-107) mmol/L BUN (7-17) mg/dL Glucose (74-99) mg/dL POC Glucose (mg/dL) 56 L 101 H 262 H (75-99) mg/dL Calcium (8.4-10.2) mg/dL Total Bilirubin (0.2-1.3) mg/dL Total Protein (6.3-8.2) g/dL Albumin (3.5-5.0) g/dL 08/14/19 08/14/19 08/14/19 Range/Units 06:44 07:24 07:24 RBC 3.41 L (3.80-5.40) m/uL Hgb 9.8 L D (11.4-16.0) gm/dL Hct 32.2 L (34.0-46.0) % MCHC 30.4 L (31.0-37.0) g/dL Chloride 110 H (98-107) mmol/L BUN 28 H (7-17) mg/dL Glucose 222 H (74-99) mg/dL POC Glucose (mg/dL) 264 H (75-99) mg/dL Calcium 8.2 L (8.4-10.2) mg/dL Total Bilirubin <0.1 L (0.2-1.3) mg/dL Total Protein 6.0 L (6.3-8.2) g/dL Albumin 2.7 L (3.5-5.0) g/dL 08/14/19 Range/Units 11:56 RBC (3.80-5.40) m/uL Hgb (11.4-16.0) gm/dL Hct (34.0-46.0) % MCHC (31.0-37.0) g/dL Chloride (98-107) mmol/L BUN (7-17) mg/dL Glucose (74-99) mg/dL POC Glucose (mg/dL) 71 L (75-99) mg/dL Calcium (8.4-10.2) mg/dL Total Bilirubin (0.2-1.3) mg/dL Total Protein (6.3-8.2) g/dL Albumin (3.5-5.0) g/dL Microbiology - Last 24 Hours (Table) 08/12/19 22:17 Blood Culture - Preliminary Blood No Growth after 24 hours Assessment and Plan Plan: #1 likely seizure activity 2, at this time patient was started on Keppra in the emergency room, will obtain computed tomography scan of the brain, will obtain EEG, neurology consultation was requested. #2 insulin-dependent diabetes mellitus will resume home insulin and monitor closely #3 underlying history of peripheral vascular disease, with foot ulcer and multiple toe amputation in the past. #4 complaint of chest pain, will obtain EKG and serial cardiac enzymes #5 complaint of abdominal pain Will obtain abdominal ultrasound #6 dehydration was acute kidney injury was elevated BUN at 68 and elevated creatinine at 1.39 will use gentle hydration and monitor. #7 medication and labs were reviewed please see orders will follow closely prognosis is guarded
--- NOTE | 2019-08-14 15:43 | EEG ---
ELECTROENCEPHALOGRAM REPORT DATE OF SERVICE: 08/14/2019 PREAMBLE: This is a 58-year-old female with history of a stroke, admitted with syncope versus seizure. This study is performed to evaluate for epileptiform activity. The patient currently is on Depakote 250 mg daily. EEG FINDINGS: Routine 21 channel awake digital EEG recording was accomplished utilizing the 10-20 international system with bipolar and suction referential montages. The recording starts and continues with presence of diffuse to [id number] voltage activity in mixed theta and delta range in bihemispheric region. There is a superimposed right mid temporal focal slowing with frequent sharp wave activity is seen throughout the recording. Different stages of sleep are not seen. The background does not seem to be reactive to eye opening or closing. Photic driving response was not seen. IMPRESSION: This is an abnormal EEG due to: 1. Background slowing of mild to moderate degree. This is suggestive of generalized cerebral dysfunction as can be seen in a toxic metabolic encephalopathies or due to diffuse structural brain abnormality. 2. Superimposed focal slowing in the right temporal region, with very frequent right mid temporal sharp wave activity. This is suggestive of focal cortical neural dysfunction with underlying cortical irritability and tendency for seizures. Above-described activity predisposes this patient for partial onset seizures. 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 MMODL / IJN: [id number] / [facility]
[2019-08-14 16:40] LABS: Glucose,Whole Blood 149 mg/dL (75-99)
[2019-08-14 20:41] LABS: Glucose,Whole Blood 138 mg/dL (75-99)
[2019-08-14] MEDS: QUEtiapine 100 MG TAB PO SCH (21:38)
[2019-08-14] MEDS: ATORVASTATIN 20 MG TAB PO SCH (21:38)
[2019-08-14] MEDS: INSULIN DETEMIR (LEVEMIR) 100 UNIT/ML SYR SQ SCH (21:39)
[2019-08-15 01:28] LABS: Glucose,Whole Blood 155 mg/dL (75-99)
[2019-08-15 06:47] LABS: Glucose,Whole Blood 48 mg/dL (75-99)
[2019-08-15 06:47] LABS: Glucose,Whole Blood 57 mg/dL (75-99)
[2019-08-15] MEDS: INSULIN ASPART (NovoLOG) 100 UNIT/ML VIAL SQ SCH ×4 (06:55→20:34)
[2019-08-15 07:04] LABS: Glucose,Whole Blood 70 mg/dL (75-99)
[2019-08-15] MEDS: DULoxetine HCL 60 MG CAPSULE.DR PO SCH (07:29)
[2019-08-15] MEDS: ASPIRIN 81 MG PO SCH (07:30)
[2019-08-15] MEDS: QUEtiapine 25 MG TAB PO SCH (07:30)
[2019-08-15] MEDS: FAMOTIDINE 20 MG TAB PO SCH (07:30)
[2019-08-15] MEDS: FERROUS SULFATE 325 MG TAB PO SCH (07:30)
[2019-08-15] MEDS: DIVALPROEX 250 MG TABLET.DR PO SCH ×3 (07:31→20:34)
[2019-08-15] MEDS: SODIUM CHLORIDE 0.9% 1,000 ML IV SCH (07:32)
[2019-08-15] MEDS: levETIRAcetam IV 1,000 MG in SALINE 1 100ML.BAG IVPB SCH (08:44)
[2019-08-15 11:34] LABS: Glucose,Whole Blood 394 mg/dL (75-99)
--- NOTE | 2019-08-15 13:04 | P.CONS ---
History of Present Illness - Reason for Consult Consult date: 08/15/19 Wound care - History of Present Illness This is a 58-year-old patient known to the wound care center being seen on [address]. for nonhealing ulcerations to the right foot. Patient has a nonhealing ulcerations to the right dorsal foot right great toe and right lateral foot. Patient has had previous surgical debridement including removal of bone to the right lateral foot. Patient previously was on a total contact cast however she had developed some excoriation and redness to the dorsal foot and right great toe. Last appointment patient was found to have bone exposed to the right great toe. Patient's past medical history significant for post CVA and involuntary movements, peripheral vascular disease, diabetes, seizures. Review of Systems Review Of Systems: Constitutional: No fever, no chills, no night sweats. No weight change. No weakness, fatigue or lethargy. No daytime sleepiness. Integumentary:reports wounds, no lesions. No rash or pruritus. No unusual bruising. No change in hair or nails. Past Medical History Past Medical History: Asthma, Coronary Artery Disease (CAD), Chest Pain / Angina, Heart Failure, COPD, CVA/TIA, Diabetes Mellitus, Deep Vein Thrombosis (DVT), Eye Disorder, GERD/Reflux, Hyperlipidemia, Hypertension, Myocardial Infarction ([place]), Neurologic Disorder, Osteoarthritis (OA), Pneumonia, Renal Dis ease Additional Past Medical History / Comment(s): IDDM (brittle), DKAs, neuropathy bilateral hands/feet, retinopathy bilateral eyes, cellulitis R foot, R great toe and 2nd toe infections/amputations, current wound R foot-being seen in [facility], renal failure, anemia, CVAs with L sided paralysis, headaches started after CVAs, brain lesions, DVT R axillae, low back pain, varicosities, seizure many years ago (2001), hypothyroid, constipation, bilateral tinnitis occasionally, si nus problems. Last Myocardial Infarction Date:: 2011 History of Any Multi-Drug Resistant Organisms: MRSA Year Discovered:: 09/06/17 MDRO Source:: Right Foot Past Surgical History: Appendectomy, Section, Cholecystectomy, Heart Catheterization With Stent, Hysterectomy, Orthopedic Surgery Additional Past Surgical History / Comment(s): PCI with multiple stents, R great toe and 2nd toe amps, debridements R foot ulcer, L shoulder surgery to remove bone, bronchoscopy, EGD, colonoscopy, R arm port since removed, bilateral cataract removals/lens implants. Past Anesthesia/Blood Transfusion Reactions: No Reported Reaction Additional Past Anesthesia/Blood Transfusion Reaction / Comm: HX OF BLOOD TRANSFUSION- NO REACTION Date of Last Stent Placement:: July 2012 Past Psychological History: Anxiety, Bipolar, Depression Additional Psychological History / Comment(s): Pt has a legal guardian, Sera Rodriguez, who is pt's sister. Currently her legal guardian is hospitalized. Pt has a caregiver, No, who resides with her. Pt is wheelchair bound d/t CVA with L sided paralysis arm and leg. She has a shower chair and a glucometer. Her sister or caregiver drive her to [employer]. Smoking Status: Former smoker Past Alcohol Use History: None Reported Additional Past Alcohol Use History / Comment(s): Pt started smoking in 1982 and quit in 2017. Using marijuana edibles occasionally but none for a "long time" Past Drug Use History: Marijuana Additional Drug Use History / Comment(s): using marijuana edibles - Past Family History Father Family Medical History: Unable to Obtain, Coronary Artery Disease (CAD), Diabetes Mellitus Mother Family Medical History: COPD Medications and Allergies Home Medications Medication Instructions Recorded Confirmed Type Albuterol Inhaler [Ventolin Hfa 2 puff INHALATION RT-Q4H PRN 07/19/15 08/13/19 History Inhaler] Famotidine [Pepcid] 20 mg PO DAILY@89907/19/15 08/13/19 History Valproic Acid [Depakene] 250 mg PO DAILY@89907/19/15 08/13/19 History Ergocalciferol [Vitamin D2 50,000 unit PO SA@89903/05/16 08/13/19 History (DRISDOL)] HYDROcodone/APAP 10-325MG [[place] 1 tab PO Q6H PRN 10/03/16 08/13/19 History 10-325] DULoxetine HCL [Cymbalta] 60 mg PO DAILY@89902/16/17 08/13/19 History Ondansetron [Zofran] 4 mg PO DAILY PRN 09/06/17 08/13/19 History Atorvastatin [Lipitor] 20 mg PO DAILY@209912/28/18 08/13/19 History QUEtiapine [SEROquel] 100 mg PO HS@2100 12/28/18 08/13/19 History Vitamin B Complex With Vit C 1 tab PO DAILY 06/01/19 08/13/19 History Aspirin [Adult Low Dose Aspirin EC] 81 mg PO DAILY@0900 06/09/19 08/13/19 History Ferrous Sulfate [Iron (65 MG 325 mg PO DAILY@0900 06/09/19 08/13/19 History Elemental)] ALPRAZolam [Xanax] 0.5 mg PO Q8HR PRN tab 06/30/19 08/13/19 Rx Doxycycline Hyclate [Vibramycin] 100 mg PO BID 08/13/19 08/13/19 History INSULIN LISPRO (humaLOG) [humaLOG] See Protocol SQ ACHS 08/13/19 08/13/19 History Insulin Glargine,Hum.rec.anlog 20 unit SQ HS 08/13/19 08/13/19 History [Basaglar Kwikpen U-100] QUEtiapine [SEROquel] 25 mg PO DAILY@0900 08/13/19 08/13/19 History Allergies Allergy/AdvReac Type Severity Reaction Status Date / Time Barbiturates Allergy Rash/Hives Verified 08/13/19 12:53 cephalexin monohydrate Allergy Rash/Hives Verified 08/13/19 12:53 [From Keflex] morphine Allergy Rash/Hives Verified 08/13/19 12:53 Penicillins Allergy Rash/Hives Verified 08/13/19 12:53 phenobarbital Allergy Swelling Verified 08/13/19 12:53 venom-honey bee Allergy Swelling Verified 08/13/19 12:53 [bee venom (honey bee)] amlodipine besylate AdvReac Vomiting Verified 08/13/19 12:53 [From Norvasc] Physical Exam Vitals: Vital Signs Temp Pulse Resp BP Pulse Ox 08/15/19 07:00 97.7 F 83 18 112/75 100 08/15/19 02:08 98.0 F 95 18 110/58 100 08/14/19 19:22 97.9 F 95 18 149/90 99 08/14/19 15:00 97.8 F 92 16 159/76 99 Intake and Output 08/14/19 08/15/19 08/15/19 22:59 06:59 14:59 Other: Voiding Method Diaper Diaper Incontinent Incontinent # Voids 2 2 1 Physical exam: General Appearance: Alert, cooperative, no distress, appears stated age. Skin: Right lateral foot ulceration is healed, right dorsal foot of ulceration measures approximately 1 x 0.6 0.1 cm Slough noticed within the wound bed. Minimal granulation. Skin edges are attached no tunneling or undermining noted. Ulceration to right great toe distal aspect shows significant callous Slough and fibrin. Periwound shows erythema extending to dorsal foot. all other Skin color, texture, tugor normal, no rashes or lesions. Neurologic: Alert oriented x3 Results CBC & Chem 7: 08/14/19 07:24 08/14/19 07:24 Labs: Abnormal Lab Results - Last 24 Hours (Table) 08/14/19 08/14/19 08/15/19 Range/Units 16:38 20:40 01:27 POC Glucose (mg/dL) 149 H 138 H 155 H (75-99) mg/dL 08/15/19 08/15/19 08/15/19 Range/Units 06:43 06:46 07:03 POC Glucose (mg/dL) 48 L 57 L 70 L (75-99) mg/dL 08/15/19 Range/Units 11:32 POC Glucose (mg/dL) 394 H (75-99) mg/dL Microbiology - Last 24 Hours (Table) 08/12/19 22:17 Blood Culture - Preliminary Blood No Growth after 48 hours Assessment and Plan (1) Atherosclerosis of pauma arteries of right leg with ulceration of other part of foot Current Visit: No Status: Acute Code(s): I70.235 - ATHSCL SUN'AQ ARTERIES OF RIGHT LEG W ULCER OTH PRT FOOT SNOMED Code(s): 072873993075325 (2) Diabetes mellitus due to underlying condition with foot ulcer Current Visit: No Status: Acute Code(s): E08.621 - DIABETES MELLITUS DUE TO UNDERLYING CONDITION W FOOT ULCER; L97.509 - NON-PRESSURE CHRONIC ULCER OTH PRT UNSP FOOT W UNSP SEVERITY SNOMED Code(s): 7273116 (3) Non-pressure chronic ulcer of other part of right foot with fat layer exposed Current Visit: No Status: Acute Code(s): L97.512 - NON-PRS CHRONIC ULCER OTH PRT RIGHT FOOT W FAT LAYER EXPOSED SNOMED Code(s): 914931938 Plan: Patient to continue with wound care treatment. At this time we will apply collagen, saline moistened gauze, dry gauze, rolled gauze secured paper tape changing every other day. Patient will return to the wound care center upon discharge. Next appointment August 29 at 2:30. For the consultation any questions please contact the wound care center DNP note has been reviewed and discussed with Dr. Cadena and the impression and plan of care has been directed as dictated.
--- NOTE | 2019-08-15 15:42 | P.PN ---
Subjective Progress Note Date: 08/15/19 Patient is laying comfortably in the bed. Offers no complaints. No further seizures reported. Objective - Vital Signs Vital signs: Vital Signs Temp 98.1 F 08/15/19 15:00 Pulse 96 08/15/19 15:00 Resp 18 08/15/19 15:00 BP 102/56 08/15/19 15:00 Pulse Ox 100 08/15/19 15:00 Intake & Output 08/14/19 08/15/19 08/15/19 18:59 06:59 18:59 Other: Voiding Method Bedside Commode Diaper Diaper Bedpan Incontinent Incontinent Diaper Incontinent # Voids 2 2 1 # Bowel Movements 1 - Exam No change. - Labs CBC & Chem 7: 08/14/19 07:24 08/14/19 07:24 Labs: Abnormal Lab Results - Last 24 Hours (Table) 08/14/19 08/14/19 08/15/19 Range/Units 16:38 20:40 01:27 POC Glucose (mg/dL) 149 H 138 H 155 H (75-99) mg/dL 08/15/19 08/15/19 08/15/19 Range/Units 06:43 06:46 07:03 POC Glucose (mg/dL) 48 L 57 L 70 L (75-99) mg/dL 08/15/19 Range/Units 11:32 POC Glucose (mg/dL) 394 H (75-99) mg/dL Microbiology - Last 24 Hours (Table) 08/12/19 22:17 Blood Culture - Preliminary Blood No Growth after 48 hours Assessment and Plan Assessment: * 58-year-old female admitted with seizure at home, but had a witnessed focal onset seizure in the ER. Patient has history of old right hemispheric CVA, with chronic left hemiparesis. 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 Patient EEG showed epileptic focus in the involving the right temporal region. 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 * Diabetes, poorly controlled * Hypertension * Dyslipidemia * X tobacco user. Plan: * Patient has developed post stroke epilepsy. Patient is currently on Depakote, but the levels are very subtherapeutic 21.4. * Continue Depakote 250 mg 3 times a day. Depakote was previously given for behavioral disorder. Hopefully Depakote will further help with behaviors. * Would stop Keppra, as I would suggest maintaining on single antiepileptic agent. Keppra can also worsen behavioral issues in the patient. * I would suggest checking Depakote level in 2 weeks. * Suggest follow-up with a neurologist locally in town in 2-4 weeks, to manage her post stroke epilepsy and to adjust the antiepileptic medication, if needed. * Continue aspirin 81 mg daily. * Patient's lipid panel shows cholesterol 194, LDL 96.8, HDL 65.0 and triglycerides 161. Consider starting Lipitor 10 mg. * Optimize control of diabetes to target A1c <7.0. * Neurologically clear otherwise.
[2019-08-15 16:28] LABS: Glucose,Whole Blood 123 mg/dL (75-99)
[2019-08-15 20:28] LABS: Glucose,Whole Blood 389 mg/dL (75-99)
[2019-08-15] MEDS: ATORVASTATIN 20 MG TAB PO SCH (20:34)
[2019-08-15] MEDS: QUEtiapine 100 MG TAB PO SCH (20:34)
[2019-08-15] MEDS: INSULIN DETEMIR (LEVEMIR) 100 UNIT/ML SYR SQ SCH (20:34)
[2019-08-16 01:43] LABS: Glucose,Whole Blood 117 mg/dL (75-99)
[2019-08-16 05:37] LABS: Glucose,Whole Blood 91 mg/dL (75-99)
[2019-08-16 07:02] LABS: Glucose,Whole Blood 111 mg/dL (75-99)
[2019-08-16] MEDS: DIVALPROEX 250 MG TABLET.DR PO SCH ×3 (09:28→21:26)
[2019-08-16] MEDS: DULoxetine HCL 60 MG CAPSULE.DR PO SCH (09:29)
[2019-08-16] MEDS: FAMOTIDINE 20 MG TAB PO SCH (09:29)
[2019-08-16] MEDS: ASPIRIN 81 MG PO SCH (09:29)
[2019-08-16] MEDS: FERROUS SULFATE 325 MG TAB PO SCH (09:29)
[2019-08-16] MEDS: INSULIN ASPART (NovoLOG) 100 UNIT/ML VIAL SQ SCH ×4 (10:58→21:26)
[2019-08-16] MEDS: SODIUM CHLORIDE 0.9% 1,000 ML IV SCH ×2 (10:58→22:05)
[2019-08-16] MEDS: QUEtiapine 25 MG TAB PO SCH (10:59)
[2019-08-16 11:39] LABS: Glucose,Whole Blood 393 mg/dL (75-99)
--- NOTE | 2019-08-16 13:05 | P.PN ---
Subjective Progress Note Date: 08/16/19 Melva Jackson is a 58-year-old female with extensive past medical history who presented to [facility] emergency room after having an episode of syncope at home. Family described that the patient was attempting to transfer from her wheelchair to the toilet seat when she fell backward she was an responsive her eyes were open there was no tonic or clonic movements, patient was brought in to [facility] emergency room where she was evaluated. During her emergency room stay patient had a second episode of what seemed to be a seizure activity, patient was an responsive her head was rotated to the left and her eyes were rolled back in her head and at this time she had tonic-clonic movements. She was started on IV Keppra and was admitted to medical floor. Patient has unclear history of seizure disorder, she has been maintained on valproic acid. She was evaluated twice by neurology in [address] Barrera, and in [address] Foy and there was no mention of seizure diagnosis during those 2 consults. In 2014 patient had a major stroke affecting the right MCA and RUSTAM, she has total occlusion of the right internal carotid artery. On 08/14/2019 patient was seen and examined on the medical floor, she is alert slightly somnolent in no apparent distress, no new seizure activity reported by nursing staff. Patient is feeling tired otherwise she denies any complaints, she had an episode of hypoglycemia at night, otherwise there is no fever or chills no headache or dizziness no chest pain no shortness of breath no cough no nausea or vomiting no abdominal pain no diarrhea and no urinary symptoms On 08/15/2019 Patient was seen and examined on the medical floor, case was discussed with Dr Zuniga neurologist, patient had evidence of seizure activity on admission, she had a significant stroke in 2014, she has been maintained on a low-dose Depakote for behavioral issues, she has not had any well-documented seizure activity in the past, she was started on IV Keppra in the emergency room on presentation, case discussed in details with Dr. Zuniga, who advised to increase dose of Depakote and continue was 1 and I seizure medication and discontinue Keppra at this time. Clinically patient is doing better she is alert and responsive in no apparent distress there is no fever or chills no headache or dizziness no chest pain no shortness of breath no cough no nausea or vomiting no abdominal pain no diarrhea and no urinary symptoms. Consultation was requested for patient to be seen by Dr. Cadena in regard to her right foot open ulcers with history of toe amputations, Objective - Vital Signs Vital signs: Vital Signs Temp 97.5 F L 08/16/19 07:00 Pulse 77 08/16/19 07:25 Resp 16 08/16/19 07:25 BP 119/51 08/16/19 07:00 Pulse Ox 100 08/16/19 07:00 Intake & Output 08/15/19 08/16/19 08/16/19 18:59 06:59 18:59 Intake Total 296 Balance 296 Intake: Oral 296 Other: Voiding Method Diaper Diaper Diaper Incontinent Incontinent Incontinent # Voids 1 1 - Exam In general patient is alert somnolent in no apparent distress HEENT head normocephalic and atraumatic Neck is supple no JVD no goiter no lymphadenopathy Chest exam reveals a few scattered crackles bilaterally no wheezing Cardiac exam reveals regular heart sounds no gallops no murmurs Abdomen is soft nontender no organomegaly with normal bowel sounds Extremity exam reveals no edema no cyanosis or clubbing, right foot is bandaged, patient had recent toe amputation Neurological examination reveals left sided weakness and muscle contracture involving the upper and lower extremities which is chronic no other acute neurological deficit at this - Labs CBC & Chem 7: 08/14/19 07:24 08/14/19 07:24 Labs: Abnormal Lab Results - Last 24 Hours (Table) 08/15/19 08/15/19 08/16/19 Range/Units 16:26 20:27 01:41 POC Glucose (mg/dL) 123 H 389 H 117 H (75-99) mg/dL 08/16/19 08/16/19 Range/Units 07:01 11:38 POC Glucose (mg/dL) 111 H 393 H (75-99) mg/dL Microbiology - Last 24 Hours (Table) 08/12/19 22:17 Blood Culture - Preliminary Blood No Growth after 72 hours Assessment and Plan Plan: #1 likely seizure activity 2, at this time patient was started on Keppra in the emergency room, will obtain computed tomography scan of the brain, will obtain EEG, neurology consultation was requested. #2 insulin-dependent diabetes mellitus will resume home insulin and monitor closely #3 underlying history of peripheral vascular disease, with foot ulcer and mul tiple toe amputation in the past. #4 complaint of chest pain, will obtain EKG and serial cardiac enzymes #5 complaint of abdominal pain Will obtain abdominal ultrasound #6 dehydration was acute kidney injury was elevated BUN at 68 and elevated creatinine at 1.39 will use gentle hydration and monitor. #7 medication and labs were reviewed please see orders will follow closely prognosis is guarded
--- NOTE | 2019-08-16 13:25 | P.PN ---
Subjective Progress Note Date: 08/16/19 Melva Jackson is a 58-year-old female with extensive past medical history who presented to [facility] emergency room after having an episode of syncope at home. Family described that the patient was attempting to transfer from her wheelchair to the toilet seat when she fell backward she was an responsive her eyes were open there was no tonic or clonic movements, patient was brought in to [facility] emergency room where she was evaluated. During her emergency room stay patient had a second episode of what seemed to be a seizure activity, patient was an responsive her head was rotated to the left and her eyes were rolled back in her head and at this time she had tonic-clonic movements. She was started on IV Keppra and was admitted to medical floor. Patient has unclear history of seizure disorder, she has been maintained on valproic acid. She was evaluated twice by neurology in [address] Barrera, and in [address] Foy and there was no mention of seizure diagnosis during those 2 consults. In 2014 patient had a major stroke affecting the right MCA and RUSTAM, she has total occlusion of the right internal carotid artery. On 08/14/2019 patient was seen and examined on the medical floor, she is alert slightly somnolent in no apparent distress, no new seizure activity reported by nursing staff. Patient is feeling tired otherwise she denies any complaints, she had an episode of hypoglycemia at night, otherwise there is no fever or chills no headache or dizziness no chest pain no shortness of breath no cough no nausea or vomiting no abdominal pain no diarrhea and no urinary symptoms On 08/15/2019 Patient was seen and examined on the medical floor, case was discussed with Dr Zuniga neurologist, patient had evidence of seizure activity on admission, she had a significant stroke in 2014, she has been maintained on a low-dose Depakote for behavioral issues, she has not had any well-documented seizure activity in the past, she was started on IV Keppra in the emergency room on presentation, case discussed in details with Dr. Zuniga, who advised to increase dose of Depakote and continue was 1 and I seizure medication and discontinue Keppra at this time. Clinically patient is doing better she is alert and responsive in no apparent distress there is no fever or chills no headache or dizziness no chest pain no shortness of breath no cough no nausea or vomiting no abdominal pain no diarrhea and no urinary symptoms. Consultation was requested for patient to be seen by Dr. Cadena in regard to her right foot open ulcers with history of toe amputations, On 08/16/2019 patient was seen and examined on the medical floor she is alert and oriented in no apparent distress she is answering questions appropriately, there is no fever or chills no headache or dizziness no chest pain no shortness of breath no cough no nausea or vomiting no abdominal pain no diarrhea and no urinary symptoms, no new reported seizure activity per nursing staff. Objective - Vital Signs Vital signs: Vital Signs Temp 97.5 F L 08/16/19 07:00 Pulse 77 08/16/19 07:25 Resp 16 08/16/19 07:25 BP 119/51 08/16/19 07:00 Pulse Ox 100 08/16/19 07:00 Intake & Output 08/15/19 08/16/19 08/16/19 18:59 06:59 18:59 Intake Total 296 Balance 296 Intake: Oral 296 Other: Voiding Method Diaper Diaper Diaper Incontinent Incontinent Incontinent # Voids 1 1 - Exam In general patient is alert somnolent in no apparent distress HEENT head normocephalic and atraumatic Neck is supple no JVD no goiter no lymphadenopathy Chest exam reveals a few scattered crackles bilaterally no wheezing Cardiac exam reveals regular heart sounds no gallops no murmurs Abdomen is soft nontender no organomegaly with normal bowel sounds Extremity exam reveals no edema no cyanosis or clubbing, right foot is bandaged, patient had recent toe amputation Neurological examination reveals left sided weakness and muscle contracture inv olving the upper and lower extremities which is chronic no other acute neurological deficit at this - Labs CBC & Chem 7: 08/14/19 07:24 08/14/19 07:24 Labs: Abnormal Lab Results - Last 24 Hours (Table) 08/15/19 08/15/19 08/16/19 Range/Units 16:26 20:27 01:41 POC Glucose (mg/dL) 123 H 389 H 117 H (75-99) mg/dL 08/16/19 08/16/19 Range/Units 07:01 11:38 POC Glucose (mg/dL) 111 H 393 H (75-99) mg/dL Microbiology - Last 24 Hours (Table) 08/12/19 22:17 Blood Culture - Preliminary Blood No Growth after 72 hours Assessment and Plan Plan: #1 likely seizure activity 2, at this time patient was started on Keppra in the emergency room, will obtain computed tomography scan of the brain, will obtain EEG, neurology consultation was requested. Per neurology recommendation dose of Depakote was increased, Keppra was discontinued, will recheck Depakote level in a.m. tomorrow #2 insulin-dependent diabetes mellitus will resume home insulin and monitor closely #3 underlying history of peripheral vascular disease, with foot ulcer and multiple toe amputation in the past. #4 complaint of chest pain, will obtain EKG and serial cardiac enzymes #5 complaint of abdominal pain Will obtain abdominal ultrasound #6 dehydration was acute kidney injury was elevated BUN at 68 and elevated creatinine at 1.39 will use gentle hydration and monitor. #7 medication and labs were reviewed please see orders will follow closely p rognosis is guarded
[2019-08-16 13:38] LABS: Basophils % (A) 0 %; Eosinophils # (A) 0.2 k/uL (0-0.7); Eosinophils % (A) 2 %; HCT 32.8 % (34.0-46.0); Hypochromasia Slight; Lymphocytes # (A) 2.7 k/uL (1.0-4.8); Lymphocytes % (A) 33 %; MCH 28.1 pg (25.0-35.0); MCHC 30.6 g/dL (31.0-37.0); MCV 91.9 fL (80.0-100.0); Mean Platelet Volume 9.7; Monocytes # (A) 0.3 k/uL (0-1.0); Monocytes % (A) 4 %; Neutrophils # (A) 4.9 k/uL (1.3-7.7); Neutrophils % (A) 60 %; Platelet Count 207 k/uL (150-450); RBC 3.57 m/uL (3.80-5.40); RDW 14.5 % (11.5-15.5); WBC 8.2 k/uL (3.8-10.6)
--- NOTE | 2019-08-16 13:45 | CDI ---
Documentation Clarification Form Date: 08/16/2019 01:20:34 PM From: Amy Mark RN, CCDS Admit Date: 08/13/2019 01:37:00 AM Patient Name: Melva Jackson Visit Number: [id number] Discharge Date: ATTENTION: The Clinical Documentation Specialists (CDI) and [facility] Coding Staff appreciate your assistance in clarifying documentation. Please respond to the clarification below the line at the bottom and electronically sign. The CDI & [facility] Coding staff will review the response and follow-up if needed. Please note: Queries are made part of the Legal Health Record. If you have any questions, please contact the author of this message via ITS. Dr. Sherlyn Chen The patients principal diagnosis has not been clearly identified and requires clarification. 08/12 H/P and subsequent progress notes you have documented likely seizure activity x2 08/13 Neurology consult;(Dr. 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 EEG 08/13: Abnormal EEG due to background slowing of moderate to severe degree. this suggestive of generalized cerebral dysfunction and can be seen in a toxic medical metabolic encephalopathies or due to diffuse structure brain abnormality. Epileptic focus in evolving the right temporal region. 08/11 Lab findings: Lactic acid 3.4, Valproic Acid 21.4 08/12 CT Brain: Stable large area of encephalomalcia involving the right temporal parietal and frontal lobes unchanged from the prior exam. 08/11 In ED: Vital Signs: 90/59 109 18 98.1 94 % RA Treatment: Depakote 250 mg PO TID Monitor Depakote Levels Neurological assessment Q4 hours In your professional opinion, can you please clarify which diagnosis, after study, accounted for the patients presenting symptoms and was the reason chiefly responsible for the admission? Post stroke epilepsy Seizure (specify type and cause) Other, specify (Last Revision: August 2017) MTDD
[2019-08-16 13:50] LABS: Albumin 2.7 g/dL (3.5-5.0); Calcium 8.3 mg/dL (8.4-10.2); Potassium 4.9 mmol/L (3.5-5.1); Total Bilirubin 0.2 mg/dL (0.2-1.3); Total Protein 5.8 g/dL (6.3-8.2)
[2019-08-16 16:32] LABS: Glucose,Whole Blood 263 mg/dL (75-99)
--- NOTE | 2019-08-16 18:37 | P.PN ---
Subjective Progress Note Date: 08/16/19 Patient is laying comfortably in the bed. Offers no complaints. No further seizures reported. Denies any side effect of medication Objective - Vital Signs Vital signs: Vital Signs Temp 98.2 F 08/16/19 13:51 Pulse 96 08/16/19 16:00 Resp 18 08/16/19 13:51 BP 126/77 08/16/19 13:51 Pulse Ox 100 08/16/19 13:51 Intake & Output 08/15/19 08/16/19 08/16/19 18:59 06:59 18:59 Intake Total 888 Balance 888 Intake: Oral 888 Other: Voiding Method Diaper Diaper Diaper Incontinent Incontinent Incontinent # Voids 1 1 2 - Exam Patient is alert and awake. Speech and language function appears normal. Patient continues to have left hemiparesis. - Labs CBC & Chem 7: 08/16/19 13:05 08/16/19 13:05 Labs: Abnormal Lab Results - Last 24 Hours (Table) 08/14/19 08/15/19 08/16/19 Range/Units 07:24 20:27 01:41 RBC (3.80-5.40) m/uL Hgb (11.4-16.0) gm/dL Hct (34.0-46.0) % MCHC (31.0-37.0) g/dL BUN (7-17) mg/dL Glucose (74-99) mg/dL POC Glucose (mg/dL) 389 H 117 H (75-99) mg/dL Hemoglobin A1c 10.0 H (4.0-6.0) % Calcium (8.4-10.2) mg/dL Total Protein (6.3-8.2) g/dL Albumin (3.5-5.0) g/dL 08/16/19 08/16/19 08/16/19 Range/Units 07:01 11:38 13:05 RBC 3.57 L (3.80-5.40) m/uL Hgb 10.0 L (11.4-16.0) gm/dL Hct 32.8 L (34.0-46.0) % MCHC 30.6 L (31.0-37.0) g/dL BUN (7-17) mg/dL Glucose (74-99) mg/dL POC Glucose (mg/dL) 111 H 393 H (75-99) mg/dL Hemoglobin A1c (4.0-6.0) % Calcium (8.4-10.2) mg/dL Total Protein (6.3-8.2) g/dL Albumin (3.5-5.0) g/dL 08/16/19 08/16/19 Range/Units 13:05 16:31 RBC (3.80-5.40) m/uL Hgb (11.4-16.0) gm/dL Hct (34.0-46.0) % MCHC (31.0-37.0) g/dL BUN 24 H (7-17) mg/dL Glucose 390 H (74-99) mg/dL POC Glucose (mg/dL) 263 H (75-99) mg/dL Hemoglobin A1c (4.0-6.0) % Calcium 8.3 L (8.4-10.2) mg/dL Total Protein 5.8 L (6.3-8.2) g/dL Albumin 2.7 L (3.5-5.0) g/dL Microbiology - Last 24 Hours (Table) 08/12/19 22:17 Blood Culture - Preliminary Blood No Growth after 72 hours Assessment and Plan Assessment: * 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 Patient's EEG showed epileptic focus in the involving the right temporal region. 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 * Diabetes, poorly controlled * Hypertension * Dyslipidemia * X tobacco user. Plan: * Patient has developed post stroke epilepsy. Patient is currently on Depakote, but the levels are very subtherapeutic 21.4. * Continue Depakote 250 mg 3 times a day. Depakote was previously given for behavioral disorder. Hopefully Depakote will further help with behaviors. * Patient is off Keppra. Keppra can also worsen behavioral issues in the patient. * I would suggest checking Depakote level in 2 weeks. * Suggest follow-up with a neurologist locally in town in 2-4 weeks, to manage her post stroke epilepsy and to adjust the antiepileptic medication, if needed. * Continue aspirin 81 mg daily. * Patient's lipid panel shows cholesterol 194, LDL 96.8, HDL 65.0 and triglycerides 161. Consider starting Lipitor 10 mg. * Optimize control of diabetes to target A1c <7.0. * Neurologically clear otherwise.
[2019-08-16 20:36] LABS: Glucose,Whole Blood 314 mg/dL (75-99)
[2019-08-16] MEDS: ATORVASTATIN 20 MG TAB PO SCH (21:25)
[2019-08-16] MEDS: QUEtiapine 100 MG TAB PO SCH (21:25)
[2019-08-16] MEDS: INSULIN DETEMIR (LEVEMIR) 100 UNIT/ML SYR SQ SCH (21:26)
[2019-08-17 02:49] LABS: Glucose,Whole Blood 383 mg/dL (75-99)
[2019-08-17 06:58] LABS: Glucose,Whole Blood 348 mg/dL (75-99)
[2019-08-17 07:14] VITALS: BP 109/54; PULSE 80; RESP 18; TEMP 98.3
[2019-08-17] MEDS: DULoxetine HCL 60 MG CAPSULE.DR PO SCH (07:14)
[2019-08-17] MEDS: FERROUS SULFATE 325 MG TAB PO SCH (07:15)
[2019-08-17] MEDS: FAMOTIDINE 20 MG TAB PO SCH (07:15)
[2019-08-17] MEDS: ASPIRIN 81 MG PO SCH (07:15)
[2019-08-17] MEDS: QUEtiapine 25 MG TAB PO SCH (07:15)
[2019-08-17] MEDS: DIVALPROEX 250 MG TABLET.DR PO SCH ×2 (07:16→15:07)
[2019-08-17] MEDS: INSULIN ASPART (NovoLOG) 100 UNIT/ML VIAL SQ SCH ×2 (07:17→12:18)
--- NOTE | 2019-08-17 07:48 | CDI ---
Documentation Clarification Form Date: 08/17/2019 07:26:26 AM From: Amy Mark RN, CCDS Admit Date: 08/13/2019 01:37:00 AM Patient Name: Melva Jackson Visit Number: [id number] Discharge Date: ATTENTION: The Clinical Documentation Specialists (CDI) and [facility] Coding Staff appreciate your assistance in clarifying documentation. Please respond to the clarification below the line at the bottom and electronically sign. The CDI & [facility] Coding staff will review the response and follow-up if needed. Please note: Queries are made part of the Legal Health Record. If you have any questions, please contact the author of this message via ITS. Dr. Sherlyn Chen The patient has diabetes, as indicated in the past medical history and ED evaluation on 08/11. 08/15 neurology (Dr. Ortiz) "Diabetes, poorly controlled Clarification is requested for diabetes poorly controlled. History/Risk Factors: Diabetes mellitus, (Insulin dependent) (brittle) Diabetic Ketoacidosis acidosis, Eating disorder Clinical Indicators: 58 year-old female (per ED evaluation on 08/11) has not been eating or drinking lately due to no appetite. Family member states that she has been trying to make herself vomit over the last few days. 08/11 Labs: BUN 68, Creatinine 1.39, Blood Glucose 305 08/16 Blood Glucose 383, 348 Treatment: Insulin Novolog SQ ACHS 6 units Insulin Levemir SQ 18 units HS Monitor blood glucose ACHS In order to capture the severity of Illness and necessary documentation specificity, please clarify: DM Type 1 DM Type 2 Other, please specify Unable to Determine Please document any body system complications or specific manifestations related to the diabetes: Hyperglycemia Hypoglycemia Other condition (Last Revision: February 2017) MTDD
[2019-08-17 08:02] LABS: Basophils % (A) 0 %; Eosinophils # (A) 0.1 k/uL (0-0.7); Eosinophils % (A) 2 %; HGB 9.5 gm/dL (11.4-16.0); Hypochromasia Moderate; Lymphocytes # (A) 3.1 k/uL (1.0-4.8); Lymphocytes % (A) 50 %; MCH 28.8 pg (25.0-35.0); MCHC 30.8 g/dL (31.0-37.0); MCV 93.5 fL (80.0-100.0); Mean Platelet Volume 8.8; Monocytes # (A) 0.3 k/uL (0-1.0); Monocytes % (A) 4 %; Neutrophils # (A) 2.6 k/uL (1.3-7.7); Neutrophils % (A) 42 %; Platelet Count 202 k/uL (150-450); RBC 3.31 m/uL (3.80-5.40); RDW 14.4 % (11.5-15.5); WBC 6.3 k/uL (3.8-10.6)
[2019-08-17 08:14] LABS: Albumin 2.7 g/dL (3.5-5.0); Calcium 8.4 mg/dL (8.4-10.2); Potassium 4.7 mmol/L (3.5-5.1); Total Bilirubin 0.2 mg/dL (0.2-1.3); Total Protein 5.8 g/dL (6.3-8.2)
[2019-08-17 11:50] LABS: Glucose,Whole Blood 145 mg/dL (75-99)
[2019-08-17] MEDS: SODIUM CHLORIDE 0.9% 1,000 ML IV SCH (12:18)
--- NOTE | 2019-08-17 13:43 | P.DS ---
Providers Date of admission: 08/13/19 01:37 Expected date of discharge: 08/17/19 Attending physician: Sherlyn Chen Consults: 08/13/19 00:42 Consult Physician Routine Consulting Provider: Jose Carlos Ortiz Consult Reason/Comments: Seizures Do you want consulting provider notified?: Yes 08/14/19 17:14 Consult Physician Routine Consulting Provider: Himanshu Cadena Consult Reason/Comments: known patient, right foot wound Do you want consulting provider notified?: Yes Primary care physician: [facility] Course: Discharge diagnosis #1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 Patient's EEG showed epileptic focus in the involving the right temporal region. Patient seen evaluated by neurology. They have increased her Depakote to 250 mg 3 times a day. #2 type 1 diabetes mellitus with uncontrolled blood sugars. Patient is a very brittle diabetic. Discharge home on her current insulin. Further adjustments outpatient. #3 underlying history of peripheral vascular disease, with foot ulcer and multiple toe amputation in the past. #4 complaint of chest pain, resolved. EKG normal sinus rhythm and troponins negative 3 sets. #5 acute kidney injury with dehydration present on admission. Creatinine was 1.39. Patient was given IV fluids. Kidney functions have normalized. Hospital course Melva Jackson is a 58-year-old female with extensive past medical history who presented to [facility] emergency room after having an episode of syncope at home. Family described that the patient was attempting to transfer from her wheelchair to the toilet seat when she fell backward she was an responsive her eyes were open there was no tonic or clonic movements, patient was brought in to [facility] emergency room where she was evaluated. During her emergency room stay patient had a second episode of what seemed to be a seizure activity, patient was an responsive her head was rotated to the left and her eyes were rolled back in her head and at this time she had tonic-clonic movements. She was started on IV Keppra and was admitted to medical floor. Patient has unclear history of seizure disorder, she has been maintained on valproic acid. She was evaluated twice by neurology in [address] Barrera, and in [address] Foy and there was no mention of seizure diagnosis during those 2 consults. In 2014 patient had a major stroke affecting the right MCA and RUSTAM, she has total occlusion of the right internal carotid artery. On 08/14/2019 patient was seen and examined on the medical floor, she is alert slightly somnolent in no apparent distress, no new seizure activity reported by nursing staff. Patient is feeling tired otherwise she denies any complaints, she had an episode of hypoglycemia at night, otherwise there is no fever or chills no headache or dizziness no chest pain no shortness of breath no cough no nausea or vomiting no abdominal pain no diarrhea and no urinary symptoms On 08/15/2019 Patient was seen and examined on the medical floor, case was discussed with Dr Zuniga neurologist, patient had evidence of seizure activity on admission, she had a significant stroke in 2014, she has been maintained on a low-dose Depakote for behavioral issues, she has not had any well-documented seizure activity in the past, she was started on IV Keppra in the emergency room on presentation, case discussed in details with Dr. Zuniga, who advised to increase dose of Depakote and continue was 1 and I seizure medication and discontinue Keppra at this time. Clinically patient is doing better she is alert and responsive in no apparent distress there is no fever or chills no headache or dizziness no chest pain no shortness of breath no cough no nausea or vomiting no abdominal pain no diarrhea and no urinary symptoms. Consultation was requested for patient to be seen by Dr. Cadena in regard to her right foot open ulcers with history of toe amputations, On 08/16/2019 patient was seen and examined on the medical floor she is alert and oriented in no apparent distress she is answering questions appropriately, there is no fever or chills no headache or dizziness no chest pain no shortness of breath no cough no nausea or vomiting no abdominal pain no diarrhea and no urinary symptoms, no new reported seizure activity per nursing staff. 08/17/2019 patient is medically stable for discharge. Patient seen by neurology during this admission for a possible post stroke epilepsy. Patient has had no further seizure activity. Neurology did increase patient's Depakote to 3 times a day instead of once a day. Patient had been on the Depakote previously for just a mood stabilizer. Patient is stable for discharge please refer to chart for any further details. Depakote level subtherapeutic during this admission at 21.4. Neurology is recommending a repeat Depakote level in 2 weeks. Patient follow up with Dr. Chen in [address] Abbott in 1 week I performed an examination of the patient and discussed their management with the physician Consumer Safety Inspector. I have reviewed the Physician Consumer Safety Inspector's notes and agree with the documented findings and plan of care Patient Condition at Discharge: Stable Plan - Discharge Summary Discharge Rx Participant: Yes New Discharge Prescriptions: New Divalproex [Depakote] 250 mg PO TID #90 tablet.dr Continue Albuterol Inhaler [Ventolin Hfa Inhaler] 2 puff INHALATION RT-Q4H PRN PRN Reason: Shortness Of Breath Famotidine [Pepcid] 20 mg PO DAILY@0900 Ergocalciferol [Vitamin D2 (DRISDOL)] 50,000 unit PO SA@0900 HYDROcodone/APAP 10-325MG [[place] 10-325] 1 tab PO Q6H PRN PRN Reason: Pain DULoxetine HCL [Cymbalta] 60 mg PO DAILY@0900 Ondansetron [Zofran] 4 mg PO DAILY PRN PRN Reason: Nausea QUEtiapine [SEROquel] 100 mg PO HS@2100 Atorvastatin [Lipitor] 20 mg PO DAILY@2100 Vitamin B Complex With Vit C 1 tab PO DAILY Aspirin [Adult Low Dose Aspirin EC] 81 mg PO DAILY@0900 Ferrous Sulfate [Iron (65 MG Elemental)] 325 mg PO DAILY@0900 ALPRAZolam [Xanax] 0.5 mg PO Q8HR PRN tab PRN Reason: Anxiety Insulin Glargine,Hum.rec.anlog [Maria Victoria Pearson U-100] 20 unit SQ HS INSULIN LISPRO (humaLOG) [humaLOG] See Protocol SQ ACHS QUEtiapine [SEROquel] 25 mg PO DAILY@0900 Discontinued Valproic Acid [Depakene] 250 mg PO DAILY@0900 Doxycycline Hyclate [Vibramycin] 100 mg PO BID Discharge Medication List Albuterol Inhaler [Ventolin Hfa Inhaler] 2 puff INHALATION RT-Q4H PRN 07/19/15 [History] Famotidine [Pepcid] 20 mg PO DAILY@0900 07/19/15 [History] Ergocalciferol [Vitamin D2 (DRISDOL)] 50,000 unit PO SA@0900 03/05/16 [History] HYDROcodone/APAP 10-325MG [[place] 10-325] 1 tab PO Q6H PRN 10/03/16 [History] DULoxetine HCL [Cymbalta] 60 mg PO DAILY@89902/16/17 [History] Ondansetron [Zofran] 4 mg PO DAILY PRN 09/06/17 [History] Atorvastatin [Lipitor] 20 mg PO DAILY@209912/28/18 [History] QUEtiapine [SEROquel] 100 mg PO HS@209912/28/18 [History] Vitamin B Complex With Vit C 1 tab PO DAILY 06/01/19 [History] Aspirin [Adult Low Dose Aspirin EC] 81 mg PO DAILY@89906/09/19 [History] Ferrous Sulfate [Iron (65 MG Elemental)] 325 mg PO DAILY@89906/09/19 [History] ALPRAZolam [Xanax] 0.5 mg PO Q8HR PRN tab 06/30/19 [Rx] INSULIN LISPRO (humaLOG) [humaLOG] See Protocol SQ ACHS 08/13/19 [History] Insulin Glargine,Hum.rec.anlog [Basaglar Kwikpen U-100] 20 unit SQ HS 08/13/19 [History] QUEtiapine [SEROquel] 25 mg PO DAILY@89908/13/19 [History] Divalproex [Depakote] 250 mg PO TID #90 tablet. 08/17/19 [Rx] Follow up Appointment(s)/Referral(s): [facility], [NON-STAFF] - Wound Healing,[place] [NON-STAFF] - 08/30/19 2:30 pm Sherlyn Chen MD [Primary Care Provider] - 1 Week Activity/Diet/Wound Care/Special Instructions: Diet: diabetic Activity: as tolerated Discharge Disposition: HOME WITH HOME HEALTH SERVICES
[2019-08-17 14:49] VITALS: BMI 22.3
--- NOTE | 2019-08-17 15:10 | P.PN ---
Subjective Progress Note Date: 08/17/19 Patient is laying comfortably in the bed. Offers no complaints. No further seizures reported. Denies any side effect of medication Objective - Vital Signs Vital signs: Vital Signs Temp 98.3 F 08/17/19 07:00 Pulse 80 08/17/19 07:00 Resp 18 08/17/19 07:00 BP 109/54 08/17/19 07:00 Pulse Ox 97 08/17/19 07:00 Intake & Output 08/16/19 08/17/19 08/17/19 18:59 06:59 18:59 Intake Total 888 Output Total 2 Balance 888 -2 Weight 55.338 kg Intake: Oral 888 Output: Stool 2 Other: Voiding Method Diaper Diaper Diaper Incontinent Incontinent Incontinent # Voids 2 1 - Exam Patient is alert and awake. Speech and language function appears normal. Patient continues to have left hemiparesis. - Labs CBC & Chem 7: 08/17/19 07:36 08/17/19 07:36 Labs: Abnormal Lab Results - Last 24 Hours (Table) 08/14/19 08/16/19 08/16/19 Range/Units 07:24 16:31 20:35 RBC (3.80-5.40) m/uL Hgb (11.4-16.0) gm/dL Hct (34.0-46.0) % MCHC (31.0-37.0) g/dL BUN (7-17) mg/dL Glucose (74-99) mg/dL POC Glucose (mg/dL) 263 H 314 H (75-99) mg/dL Hemoglobin A1c 10.0 H (4.0-6.0) % Total Protein (6.3-8.2) g/dL Albumin (3.5-5.0) g/dL 08/17/19 08/17/19 08/17/19 Range/Units 02:48 06:57 07:36 RBC 3.31 L (3.80-5.40) m/uL Hgb 9.5 L (11.4-16.0) gm/dL Hct 31.0 L (34.0-46.0) % MCHC 30.8 L (31.0-37.0) g/dL BUN (7-17) mg/dL Glucose (74-99) mg/dL POC Glucose (mg/dL) 383 H 348 H (75-99) mg/dL Hemoglobin A1c (4.0-6.0) % Total Protein (6.3-8.2) g/dL Albumin (3.5-5.0) g/dL 08/17/19 08/17/19 Range/Units 07:36 11:48 RBC (3.80-5.40) m/uL Hgb (11.4-16.0) gm/dL Hct (34.0-46.0) % MCHC (31.0-37.0) g/dL BUN 32 H (7-17) mg/dL Glucose 325 H (74-99) mg/dL POC Glucose (mg/dL) 145 H (75-99) mg/dL Hemoglobin A1c (4.0-6.0) % Total Protein 5.8 L (6.3-8.2) g/dL Albumin 2.7 L (3.5-5.0) g/dL Microbiology - Last 24 Hours (Table) 08/12/19 22:17 Blood Culture - Preliminary Blood No Growth after 96 hours Assessment and Plan Assessment: * 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 Patient's EEG showed epileptic focus involving the right temporal region. 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 * Diabetes, poorly controlled * Hypertension * Dyslipidemia * X tobacco user. Plan: * Patient has developed post stroke epilepsy. Continue Depakote 250 mg 3 times a day. Depakote was previously given for behavioral disorder. Hopefully Dep akote will further help with behaviors. * Patient is off Keppra. Keppra can also worsen behavioral issues in the patient. * I would suggest checking Depakote level in 2 weeks. * Suggest follow-up with a neurologist locally in town in 2-4 weeks, to manage her post stroke epilepsy and to adjust the antiepileptic medication, if needed. * Continue aspirin 81 mg daily. * Patient's lipid panel shows cholesterol 194, LDL 96.8, HDL 65.0 and triglycerides 161. Consider starting Lipitor 10 mg. * Optimize control of diabetes to target A1c <7.0. * Neurologically clear otherwise.
[2019-08-19] MEDS ORDERED: ERGOCALCIFEROL 50,000 UNIT CAP PO SCH (09:00)
== END 2019-08-17 15:27 | disposition home health service (06) | DRG 57 ==
LOC: EC 21:38 → 4SSUR 08-13 01:37
PROVIDERS: ADMIT Internal Medicine; ATTEND Internal Medicine
DX: I69.398 Other sequelae of cerebral infarction (principal); I69.354 Hemiplegia and hemiparesis following cerebral infarction affecting left non-dominant side; N17.9 Acute kidney failure, unspecified; G40.802 Other epilepsy, not intractable, without status epilepticus; E10.649 Type 1 diabetes mellitus with hypoglycemia without coma; E10.51 Type 1 diabetes mellitus with diabetic peripheral angiopathy without gangrene; E10.621 Type 1 diabetes mellitus with foot ulcer; E10.319 Type 1 diabetes mellitus with unspecified diabetic retinopathy without macular edema; F50.9 Eating disorder, unspecified; L97.512 Non-pressure chronic ulcer of other part of right foot with fat layer exposed; I50.9 Heart failure, unspecified; I11.0 Hypertensive heart disease with heart failure; G93.89 Other specified disorders of brain; I25.10 Atherosclerotic heart disease of native coronary artery without angina pectoris; K21.9 Gastro-esophageal reflux disease without esophagitis; J44.9 Chronic obstructive pulmonary disease, unspecified; E78.5 Hyperlipidemia, unspecified; M19.90 Unspecified osteoarthritis, unspecified site; E03.9 Hypothyroidism, unspecified; F31.9 Bipolar disorder, unspecified; R10.9 Unspecified abdominal pain; E86.0 Dehydration; R32 Unspecified urinary incontinence; F41.9 Anxiety disorder, unspecified; I65.21 Occlusion and stenosis of right carotid artery; I25.2 Old myocardial infarction; I70.235 Atherosclerosis of native arteries of right leg with ulceration of other part of foot; D50.9 Iron deficiency anemia, unspecified; E10.65 Type 1 diabetes mellitus with hyperglycemia; I49.3 Ventricular premature depolarization; M62.40 Contracture of muscle, unspecified site; Z68.22 Body mass index [BMI] 22.0-22.9, adult; Z71.3 Dietary counseling and surveillance; Z79.899 Other long term (current) drug therapy; Z79.82 Long term (current) use of aspirin; Z79.4 Long term (current) use of insulin; Z87.01 Personal history of pneumonia (recurrent); Z86.718 Personal history of other venous thrombosis and embolism; Z86.14 Personal history of Methicillin resistant Staphylococcus aureus infection; Z96.1 Presence of intraocular lens; Z89.411 Acquired absence of right great toe; Z89.421 Acquired absence of other right toe(s); Z90.49 Acquired absence of other specified parts of digestive tract; Z90.710 Acquired absence of both cervix and uterus; Z98.42 Cataract extraction status, left eye; Z98.41 Cataract extraction status, right eye; Z99.3 Dependence on wheelchair; Z91.81 History of falling; Z87.891 Personal history of nicotine dependence; Z88.5 Allergy status to narcotic agent; Z88.0 Allergy status to penicillin; Z88.8 Allergy status to other drugs, medicaments and biological substances; Z88.1 Allergy status to other antibiotic agents; Z91.030 Bee allergy status; Z83.3 Family history of diabetes mellitus; Z82.49 Family history of ischemic heart disease and other diseases of the circulatory system; Z82.5 Family history of asthma and other chronic lower respiratory diseases
CPT/HCPCS: 36415; 70450; 71046; 74018; 80053; 80156; 80164; 80185; 81001; 82150; 83036; 83605; 83690; 84484; 85025; 85610; 85730; 87040; 93005; 95816; 96361; 96365; 96372; 99285

== ENCOUNTER 2019-12-26 13:41 | Inpatient (IN) | payer OTHER ==
[2019-12-26 13:54] LABS: Glucose,Whole Blood >600 mg/dL (75-99)
[2019-12-26] MEDS ORDERED: INSULIN REGULAR BOLUS (FROM DRIP BAG) IV ONE (14:29)
[2019-12-26] MEDS ORDERED: SODIUM CHLORIDE 0.9% 1,000 ML IV ONE (14:29)
[2019-12-26] MEDS ORDERED: SODIUM CHLORIDE 0.9% 1,000 ML IV STA (14:30)
--- NOTE | 2019-12-26 14:37 | ED ---
General Adult HPI - General Chief complaint: Recheck/Abnormal Lab/Rx Stated complaint: hyperglycemia Time Seen by Provider: 12/26/19 14:08 Source: patient, RN notes reviewed Mode of arrival: ambulatory Limitations: no limitations - History of Present Illness Initial comments: Patient is a pleasant 59-year-old female presenting to the emergency Department with concerns for hyperglycemia. Patient states her blood sugar has been high on her readings for the past 3 days. Patient complains of fatigue, polyuria and polydipsia. Patient feels somewhat achy. No fever or recent illness. No chest pain or abdominal pain. Patient does have history of diabetes with similar symptoms previously. - Related Data Home Medications Medication Instructions Recorded Confirmed Albuterol Inhaler (Mhu) [Ventolin 2 puff INHALATION RT-Q4H PRN 07/19/15 08/13/19 Hfa Inhaler (Mhu)] Famotidine [Pepcid] 20 mg PO DAILY@89907/19/15 08/13/19 Ergocalciferol [Vitamin D2 50,000 unit PO SA@89903/05/16 08/13/19 (DRISDOL)] HYDROcodone/APAP 10-325MG [[place] 1 tab PO Q6H PRN 10/03/16 08/13/19 10-325] DULoxetine HCL [Cymbalta] 60 mg PO DAILY@89902/16/17 08/13/19 Ondansetron [Zofran] 4 mg PO DAILY PRN 09/06/17 08/13/19 Atorvastatin [Lipitor] 20 mg PO DAILY@209912/28/18 08/13/19 QUEtiapine [SEROquel] 100 mg PO HS@209912/28/18 08/13/19 Vitamin B Complex With Vit C 1 tab PO DAILY 06/01/19 08/13/19 Aspirin [Adult Low Dose Aspirin EC] 81 mg PO DAILY@89906/09/19 08/13/19 Ferrous Sulfate [Iron (65 MG 325 mg PO DAILY@89906/09/19 08/13/19 Elemental)] INSULIN LISPRO (humaLOG) [humaLOG] See Protocol SQ ACHS 08/13/19 08/13/19 Insulin Glargine,Hum.rec.anlog 20 unit SQ HS 08/13/19 08/13/19 [Maria Victoria Pearson U-100] QUEtiapine [SEROquel] 25 mg PO DAILY@0900 08/13/19 08/13/19 Previous Rx's Medication Instructions Recorded ALPRAZolam [Xanax] 0.5 mg PO Q8HR PRN tab 06/30/19 Divalproex [Depakote] 250 mg PO TID #90 tablet. 08/17/19 Allergies Allergy/AdvReac Type Severity Reaction Status Date / Time Barbiturates Allergy Rash/Hives Verified 12/26/19 13:55 cephalexin monohydrate Allergy Rash/Hives Verified 12/26/19 13:55 [From [facility]] morphine Allergy Rash/Hives Verified 12/26/19 13:55 Penicillins Allergy Rash/Hives Verified 12/26/19 13:55 phenobarbital Allergy Swelling Verified 12/26/19 13:55 venom-honey bee Allergy Swelling Verified 12/26/19 13:55 [bee venom (honey bee)] amlodipine besylate AdvReac Vomiting Verified 12/26/19 13:55 [From [facility]] Review of Systems ROS Statement: Those systems with pertinent positive or pertinent negative responses have been documented in the HPI. ROS Other: All systems not noted in ROS Statement are negative. Constitutional: Denies: fever Eyes: Denies: eye pain ENT: Denies: ear pain Respiratory: Denies: cough Cardiovascular: Denies: chest pain Endocrine: Reports: fatigue, polydipsia, polyuria Gastrointestinal: Denies: abdominal pain Genitourinary: Denies: dysuria Musculoskeletal: Denies: back pain Skin: Denies: rash Neurological: Denies: weakness Past Medical History Past Medical History: Asthma, Coronary Artery Disease (CAD), Chest Pain / Angina, Heart Failure, COPD, CVA/TIA, Diabetes Mellitus, Deep Vein Thrombosis (DVT), Eye Disorder, GERD/Reflux, Hyperlipidemia, Hypertension, Myocardial Infarction (VT), Neurologic Disorder, Osteoarthritis (OA), Pneumonia, Renal Disease Additional Past Medical History / Comment(s): IDDM (brittle), DKAs, neuropathy bilateral hands/feet, retinopathy bilateral eyes, cellulitis R foot, R great toe and 2nd toe infections/amputations, current wound R foot-being seen in [facility], renal failure, anemia, CVAs with L sided paralysis, headaches started after CVAs, brain lesions, DVT R axillae, low back pain, varicosities, seizure many years ago (2001), hypothyroid, constipation, bilateral tinnitis occasionally, sinus problems. Last Myocardial Infarction Date:: 2011 History of Any Multi-Drug Resistant Organisms: MRSA Date of last positivie culture/infection: 09/06/17 MDRO Source:: Right Foot Past Surgical History: Appendectomy, Section, Cholecystectomy, Heart Catheterization With Stent, Hysterectomy, Orthopedic Surgery Additional Past Surgical History / Comment(s): PCI with multiple stents, R great toe and 2nd toe amps, debridements R foot ulcer, L shoulder surgery to remove bone, bronchoscopy, EGD, colonoscopy, R arm port since removed, bilateral cataract removals/lens implants. Past Anesthesia/Blood Transfusion Reactions: No Reported Reaction Additional Past Anesthesia/Blood Transfusion Reaction / Comment(s): HX OF BLOOD TRANSFUSION- NO REACTION Date of Last Stent Placement:: July 2012 Past Psychological History: Anxiety, Bipolar, Depression Smoking Status: Former smoker Past Alcohol Use History: None Reported Past Drug Use History: Marijuana - Past Family History Father Family Medical History: Unable to Obtain, Coronary Artery Disease (CAD), Diabetes Mellitus Mother Family Medical History: COPD General Exam Limitations: no limitations General appearance: alert, in no apparent distress Head exam: Present: normocephalic Eye exam: Present: normal appearance ENT exam: Present: normal oropharynx Neck exam: Present: normal inspection Respiratory exam: Present: normal lung sounds bilaterally Cardiovascular Exam: Present: regular rate, normal rhythm GI/Abdominal exam: Present: soft. Absent: tenderness Extremities exam: Present: other (Right foot with recent incision is clean and dry and intact. No significant erythema or swelling.) Neurological exam: Present: alert Psychiatric exam: Present: normal affect, normal mood Skin exam: Present: normal color. Absent: erythema Course Vital Signs 12/26/19 13:47 Pulse Rate 116 H Respiratory 18 Rate Blood Pressure 151/83 O2 Sat by Pulse 99 Oximetry EKG Findings - EKG Comments: EKG Findings:: Normal sinus rhythm 94. DE 134. QRS 84. QT 378. QTC 472. Normal axis. Normal QRS. No acute ST change. Medical Decision Making - Medical Decision Making Patient reevaluated and updated. Case discussed in detail with Dr. Chen who is familiar with this patient and will admit with IV insulin. - Lab Data Result diagrams: 12/26/19 14:40 12/26/19 14:40 Lab Results 12/26/19 12/26/19 12/26/19 Range/Units 13:52 14:40 14:40 WBC 5.8 (3.8-10.6) k/uL RBC 3.61 L (3.80-5.40) m/uL Hgb 10.5 L (11.4-16.0) gm/dL Hct 34.4 (34.0-46.0) % MCV 95.1 (80.0-100.0) fL MCH 29.1 (25.0-35.0) pg MCHC 30.6 L (31.0-37.0) g/dL RDW 15.3 (11.5-15.5) % Plt Count 263 (150-450) k/uL Neutrophils % 77 % Lymphocytes % 18 % Monocytes % 3 % Eosinophils % 1 % Basophils % 0 % Neutrophils # 4.5 (1.3-7.7) k/uL Lymphocytes # 1.0 (1.0-4.8) k/uL Monocytes # 0.2 (0-1.0) k/uL Eosinophils # 0.0 (0-0.7) k/uL Basophils # 0.0 (0-0.2) k/uL Hypochromasia Marked PT 9.6 (9.0-12.0) sec INR 0.9 (<1.2) APTT 22.1 (22.0-30.0) sec Sodium (137-145) mmol/L Potassium (3.5-5.1) mmol/L Chloride (98-107) mmol/L Carbon Dioxide (22-30) mmol/L Anion Gap mmol/L BUN (7-17) mg/dL Creatinine (0.52-1.04) mg/dL Est GFR (CKD-EPI)AfAm (>60 ml/min/1.73 sqM) Est GFR (CKD-EPI)NonAf (>60 ml/min/1.73 sqM) Glucose (74-99) mg/dL POC Glucose (mg/dL) >600 H (75-99) mg/dL POC Glu Cargoman ID Higinio Malloy Calcium (8.4-10.2) mg/dL Total Bilirubin (0.2-1.3) mg/dL AST (14-36) U/L ALT (4-34) U/L Alkaline Phosphatase (38-126) U/L Troponin I (0.000-0.034) ng/mL Total Protein (6.3-8.2) g/dL Albumin (3.5-5.0) g/dL Acetone, Qual (Negative) 12/26/19 12/26/19 12/26/19 Range/Units 14:40 14:40 15:05 WBC (3.8-10.6) k/uL RBC (3.80-5.40) m/uL Hgb (11.4-16.0) gm/dL Hct (34.0-46.0) % MCV (80.0-100.0) fL MCH (25.0-35.0) pg MCHC (31.0-37.0) g/dL RDW (11.5-15.5) % Plt Count (150-450) k/uL Neutrophils % % Lymphocytes % % Monocytes % % Eosinophils % % Basophils % % Neutrophils # (1.3-7.7) k/uL Lymphocytes # (1.0-4.8) k/uL Monocytes # (0-1.0) k/uL Eosinophils # (0-0.7) k/uL Basophils # (0-0.2) k/uL Hypochromasia PT (9.0-12.0) sec INR (<1.2) APTT (22.0-30.0) sec Sodium 137 (137-145) mmol/L Potassium 4.6 (3.5-5.1) mmol/L Chloride 101 (98-107) mmol/L Carbon Dioxide 22 (22-30) mmol/L Anion Gap 14 mmol/L BUN 50 H (7-17) mg/dL Creatinine 1.13 H (0.52-1.04) mg/dL Est GFR (CKD-EPI)AfAm 62 (>60 ml/min/1.73 sqM) Est GFR (CKD-EPI)NonAf 53 (>60 ml/min/1.73 sqM) Glucose 595 H* (74-99) mg/dL POC Glucose (mg/dL) 582 H (75-99) mg/dL POC Glu Cargoman ID Lucinda Foy Calcium 9.5 (8.4-10.2) mg/dL Total Bilirubin 0.5 (0.2-1.3) mg/dL AST 23 (14-36) U/L ALT 23 (4-34) U/L Alkaline Phosphatase 89 (38-126) U/L Troponin I <0.012 (0.000-0.034) ng/mL Total Protein 8.5 H (6.3-8.2) g/dL Albumin 4.0 (3.5-5.0) g/dL Acetone, Qual Negative (Negative) - Radiology Data Radiology results: image reviewed (Chest x-ray shows no acute process) Disposition Clinical Impression: Hyperglycemia Disposition: ADMITTED IP TO THIS HOSP Is patient prescribed a controlled substance at d/c from ED?: No Referrals: Sherlyn Chen MD [Primary Care Provider] - 1-2 days Decision Time: 16:09
[2019-12-26 15:00] LABS: Basophils % (A) 0 %; Eosinophils % (A) 1 %; HCT 34.4 % (34.0-46.0); HGB 10.5 gm/dL (11.4-16.0); Hypochromasia Marked; Lymphocytes % (A) 18 %; MCH 29.1 pg (25.0-35.0); MCHC 30.6 g/dL (31.0-37.0); MCV 95.1 fL (80.0-100.0); Mean Platelet Volume 7.8; Monocytes # (A) 0.2 k/uL (0-1.0); Monocytes % (A) 3 %; Neutrophils # (A) 4.5 k/uL (1.3-7.7); Neutrophils % (A) 77 %; Platelet Count 263 k/uL (150-450); RBC 3.61 m/uL (3.80-5.40); RDW 15.3 % (11.5-15.5); WBC 5.8 k/uL (3.8-10.6)
[2019-12-26 15:06] LABS: Glucose,Whole Blood 582 mg/dL (75-99)
[2019-12-26 15:10] LABS: INR 0.9 (<1.2); Partial Thromboplastin Time 22.1 sec (22.0-30.0); Prothrombin Time 9.6 sec (9.0-12.0)
[2019-12-26] MEDS: INSULIN REGULAR 100 UNIT in SODIUM CHLORIDE 0.9% 100 ML IV SCH (15:10)
[2019-12-26 15:12] LABS: ALT 23 U/L (4-34); AST 23 U/L (14-36); African American GFR (CKD) 62 (>60 ml/min/1.73 sqM); Alkaline Phosphatase 89 U/L (38-126); Anion Gap 14 mmol/L; Blood Urea Nitrogen 50 mg/dL (7-17); Calcium 9.5 mg/dL (8.4-10.2); Carbon Dioxide 22 mmol/L (22-30); Chloride 101 mmol/L (98-107); Non-African American GFR(CKD) 53 (>60 ml/min/1.73 sqM); Potassium 4.6 mmol/L (3.5-5.1); Sodium 137 mmol/L (137-145); Total Bilirubin 0.5 mg/dL (0.2-1.3); Total Protein 8.5 g/dL (6.3-8.2)
[2019-12-26 15:21] LABS: Glucose 595 mg/dL (74-99)
--- NOTE | 2019-12-26 15:33 | XR ---
EXAMINATION TYPE: XR chest 2V DATE OF EXAM: 12/26/2019 COMPARISON: 08/12/2019 HISTORY: Shortness of breath TECHNIQUE: Frontal and lateral views of the chest are obtained. FINDINGS: Scattered senescent parenchymal changes noted. Hyperinflation compatible with COPD. No evidence for infiltrate. No evidence for atelectasis. Heart size is stable. Mediastinal structures are stable and grossly unremarkable. No evidence for hilar prominence. Degenerative changes dorsal spine. IMPRESSION: 1. No evidence for acute pulmonary disease.
[2019-12-26 16:08] LABS: Glucose,Whole Blood 380 mg/dL (75-99)
[2019-12-26] MEDS ORDERED: NALOXONE 0.4 MG/ML 1 ML VIAL IV PRN (16:09)
[2019-12-26 17:17] LABS: Glucose,Whole Blood 267 mg/dL (75-99)
[2019-12-26] MEDS: D5-0.45% NACL WITH KCL 20MEQ/L 1,000 ML IV SCH (17:31)
[2019-12-26 18:26] LABS: Glucose,Whole Blood 179 mg/dL (75-99)
[2019-12-26] MEDS: SODIUM CHLORIDE 0.9% 1,000 ML IV SCH ×2 (18:31→21:20)
[2019-12-26 19:19] LABS: Glucose,Whole Blood 216 mg/dL (75-99)
[2019-12-26 20:26] LABS: Glucose,Whole Blood 141 mg/dL (75-99)
[2019-12-26 21:17] LABS: Glucose,Whole Blood 97 mg/dL (75-99)
[2019-12-26 21:54] LABS: Glucose,Whole Blood 127 mg/dL (75-99)
[2019-12-26 22:48] LABS: Glucose,Whole Blood 215 mg/dL (75-99)
[2019-12-27 00:04] LABS: Glucose,Whole Blood 264 mg/dL (75-99)
[2019-12-27 00:09] LABS: Albumin 3.2 g/dL (3.5-5.0); Calcium 8.4 mg/dL (8.4-10.2); Potassium 4.7 mmol/L (3.5-5.1); Total Bilirubin 0.3 mg/dL (0.2-1.3); Total Protein 6.9 g/dL (6.3-8.2)
[2019-12-27] MEDS: SODIUM CHLORIDE 0.9% 1,000 ML IV SCH (00:10)
[2019-12-27] MEDS: D5-0.45% NACL WITH KCL 20MEQ/L 1,000 ML IV SCH ×4 (00:55→19:48)
[2019-12-27 01:01] LABS: Glucose,Whole Blood 248 mg/dL (75-99)
[2019-12-27 02:01] LABS: Glucose,Whole Blood 222 mg/dL (75-99)
[2019-12-27 03:01] LABS: Glucose,Whole Blood 198 mg/dL (75-99)
[2019-12-27 04:01] LABS: Glucose,Whole Blood 194 mg/dL (75-99)
[2019-12-27 05:01] LABS: Glucose,Whole Blood 185 mg/dL (75-99)
[2019-12-27 06:01] LABS: Glucose,Whole Blood 149 mg/dL (75-99)
[2019-12-27 07:17] LABS: Glucose,Whole Blood 137 mg/dL (75-99)
[2019-12-27 08:04] LABS: Glucose,Whole Blood 153 mg/dL (75-99)
[2019-12-27 09:10] LABS: Glucose,Whole Blood 210 mg/dL (75-99)
[2019-12-27 10:12] LABS: Glucose,Whole Blood 241 mg/dL (75-99)
[2019-12-27 11:33] LABS: Glucose,Whole Blood 242 mg/dL (75-99)
[2019-12-27 12:08] LABS: Glucose,Whole Blood 258 mg/dL (75-99)
[2019-12-27] MEDS ORDERED: ONDANSETRON ODT 4 MG TAB PO PRN (13:01)
[2019-12-27] MEDS ORDERED: ALBUTEROL HFA INHALER INHALATION PRN (13:01)
[2019-12-27] MEDS ORDERED: ALPRAZolam 1 MG TAB PO PRN (13:01)
[2019-12-27] MEDS ORDERED: HYDROcodone/APAP 10-325MG 1 EACH TAB PO PRN (13:01)
[2019-12-27] MEDS: ONDANSETRON 4 MG/2 ML VIAL IVP PRN ×2 (13:20→17:37)
[2019-12-27 13:25] LABS: Glucose,Whole Blood 332 mg/dL (75-99)
[2019-12-27] MEDS ORDERED: IOPAMIDOL CONTRAST (ORAL USE) VIAL PO PRN (13:28)
[2019-12-27] MEDS ORDERED: SODIUM CHLORIDE 0.9% 1,000 ML IV STA (13:28)
[2019-12-27 14:15] LABS: Glucose,Whole Blood 351 mg/dL (75-99)
[2019-12-27] MEDS: TRIMETHOBENZAMIDE 100 MG/ML 2 ML VIAL IM PRN ×2 (14:57→20:37)
[2019-12-27 15:07] LABS: Glucose,Whole Blood 409 mg/dL (75-99)
[2019-12-27] MEDS: METOCLOPRAMIDE 5 MG/ML 2 ML VIAL IVP SCH ×3 (15:12→23:04)
[2019-12-27 15:20] LABS: Basophils % (A) 0 %; Eosinophils % (A) 0 %; HCT 32.2 % (34.0-46.0); HGB 10.2 gm/dL (11.4-16.0); Hypochromasia Slight; Lymphocytes # (A) 1.7 k/uL (1.0-4.8); Lymphocytes % (A) 21 %; MCH 29.2 pg (25.0-35.0); MCHC 31.5 g/dL (31.0-37.0); MCV 92.6 fL (80.0-100.0); Mean Platelet Volume 7.8; Monocytes # (A) 0.3 k/uL (0-1.0); Monocytes % (A) 3 %; Neutrophils # (A) 5.9 k/uL (1.3-7.7); Neutrophils % (A) 73 %; Platelet Count 280 k/uL (150-450); RBC 3.48 m/uL (3.80-5.40); RDW 15.5 % (11.5-15.5)
[2019-12-27 15:30] LABS: ALT 24 U/L (4-34); AST 30 U/L (14-36); African American GFR (CKD) >90 (>60 ml/min/1.73 sqM); Albumin 3.8 g/dL (3.5-5.0); Alkaline Phosphatase 102 U/L (38-126); Anion Gap 10 mmol/L; Blood Urea Nitrogen 22 mg/dL (7-17); Calcium 8.9 mg/dL (8.4-10.2); Carbon Dioxide 22 mmol/L (22-30); Chloride 102 mmol/L (98-107); Glucose 412 mg/dL (74-99); Non-African American GFR(CKD) 83 (>60 ml/min/1.73 sqM); Potassium 4.8 mmol/L (3.5-5.1); Sodium 134 mmol/L (137-145); Total Bilirubin 0.4 mg/dL (0.2-1.3); Total Protein 8.1 g/dL (6.3-8.2)
[2019-12-27] MEDS ORDERED: hydrALAZINE HCL 20 MG/ML 1 ML VIAL IVP PRN (15:33)
[2019-12-27] MEDS ORDERED: LORazepam 2 MG/ML INJ IV PRN (15:34)
[2019-12-27 16:11] LABS: Glucose,Whole Blood 409 mg/dL (75-99)
--- NOTE | 2019-12-27 17:07 | P.HPIM ---
History of Present Illness H&P Date: 12/27/19 Melva Jackson, is a 59-year-old female who presented to [facility] emergency room due to uncontrolled blood sugar, caregiver states that sugar has been up above 600 for about 3 days, she has been giving her extra insulin without ability of getting sugar under control. Patient was evaluated in the emergency room she was started on IV insulin drip and was admitted to medical floor. On the medical floor patient started developing nausea and vomiting, otherwise she denies any complaints there is no fever or chills no headache or dizziness no chest pain no shortness of breath no cough no burning was urination no frequency or urgency and no hematuria Past Medical History Past Medical History: Asthma, Coronary Artery Disease (CAD), Chest Pain / Angina, Heart Failure, COPD, CVA/TIA, Diabetes Mellitus, Deep Vein Thrombosis (DVT), Eye Disorder, GERD/Reflux, Hyperlipidemia, Hypertension, Myocardial Infarction ([place]), Neurologic Disorder, Osteoarthritis (OA), Pneumonia, Renal Disease Additional Past Medical History / Comment(s): IDDM (brittle), DKAs, neuropathy bilateral hands/feet, retinopathy bilateral eyes, cellulitis R foot, R great toe and 2nd toe infections/amputations, current wound R foot-being seen in [facility], renal failure, anemia, CVAs with L sided paralysis, headaches started after CVAs, brain lesions, DVT R axillae, low back pain, varicosities, seizure many years ago (2001), hypothyroid, constipation, bilateral tinnitis occasionally, sinus problems. Last Myocardial Infarction Date:: 2011 History of Any Multi-Drug Resistant Organisms: MRSA Date of last positivie culture/infection: 09/06/17 MDRO Source:: Right Foot Past Surgical History: Appendectomy, Section, Cholecystectomy, Heart Catheterization With Stent, Hysterectomy, Orthopedic Surgery Additional Past Surgical History / Comment(s): PCI with multiple stents, R great toe and 2nd toe amps, debridements R foot ulcer, L shoulder surgery to remove bone, bronchoscopy, EGD, colonoscopy, R arm port since removed, bilateral cataract removals/lens implants. Past Anesthesia/Blood Transfusion Reactions: No Reported Reaction Additional Past Anesthesia/Blood Transfusion Reaction / Comment(s): HX OF BLOOD TRANSFUSION- NO REACTION Date of Last Stent Placement:: July 2012 Past Psychological History: Anxiety, Bipolar, Depression Smoking Status: Former smoker Past Alcohol Use History: None Reported Past Drug Use History: Marijuana - Past Family History Father Family Medical History: Unable to Obtain, Coronary Artery Disease (CAD), Diabetes Mellitus Mother Family Medical History: COPD Medications and Allergies Home Medications Medication Instructions Recorded Confirmed Type Famotidine [Pepcid] 20 mg PO DAILY@0900 07/19/15 12/26/19 History Ergocalciferol [Vitamin D2 50,000 unit PO SA@89903/05/16 12/26/19 History (ALEXSANDRA)] HYDROcodone/APAP 10-325MG [[place] 1 tab PO Q6H PRN 10/03/16 12/26/19 History 10-325] DULoxetine HCL [Cymbalta] 60 mg PO DAILY@89902/16/17 12/26/19 History Atorvastatin [Lipitor] 20 mg PO DAILY@209912/28/18 12/26/19 History QUEtiapine [SEROquel] 100 mg PO HS@209912/28/18 12/26/19 History Vitamin B Complex With Vit C 1 tab PO DAILY 06/01/19 12/26/19 History Aspirin [Adult Low Dose Aspirin EC] 81 mg PO DAILY@89906/09/19 12/26/19 History Ferrous Sulfate [Iron (65 MG 325 mg PO DAILY@89906/09/19 12/26/19 History Elemental)] INSULIN LISPRO (humaLOG) [humaLOG] See Protocol SQ ACHS 08/13/19 12/26/19 His tory Insulin Glargine,Hum.rec.anlog 20 unit SQ HS 08/13/19 12/26/19 History [Basaglar Lili U-100] Divalproex [Depakote] 250 mg PO TID #90 tablet. 08/17/19 12/26/19 Rx ALPRAZolam [Xanax] 1 mg PO TID PRN 12/26/19 12/26/19 History Albuterol Sulfate [Ventolin HFA] 2 puff INHALATION RT-Q4H PRN 12/26/19 12/26/19 History Ondansetron Odt [Zofran Odt] 4 mg PO DAILY PRN 12/26/19 12/26/19 History Valproic Acid [Depakene] 250 mg PO DAILY 12/26/19 12/26/19 History Allergies Allergy/AdvReac Type Severity Reaction Status Date / Time Barbiturates Allergy Rash/Hives Verified 12/26/19 17:26 cephalexin monohydrate Allergy Rash/Hives Verified 12/26/19 17:26 [From [facility]] morphine Allergy Rash/Hives Verified 12/26/19 17:26 Penicillins Allergy Rash/Hives Verified 12/26/19 17:26 phenobarbital Allergy Swelling Verified 12/26/19 17:26 venom-honey bee Allergy Swelling Verified 12/26/19 17:26 [bee venom (honey bee)] amlodipine besylate AdvReac Vomiting Verified 12/26/19 17:26 [From [facility]] Physical Exam Vitals: Vital Signs Temp Pulse Pulse Resp BP BP Pulse Ox 12/27/19 04:00 98.3 F 86 18 145/69 99 12/26/19 23:19 91 19 12/26/19 23:14 98.1 F 91 19 116/98 98 12/26/19 21:22 120/70 12/26/19 19:19 97.7 F 89 18 85/55 100 12/26/19 17:00 96 23 123/52 100 12/26/19 16:30 87 20 112/65 99 12/26/19 16:00 90 27 H 95/81 99 12/26/19 15:00 102 H 20 110/62 98 12/26/19 14:30 96 21 143/80 98 12/26/19 13:47 116 H 18 151/83 99 Intake and Output 12/26/19 12/27/19 12/27/19 22:59 06:59 14:59 Intake Total 25.741 626.983 0014.975 Balance 25.741 063.797 2890.975 Intake: Intake, IV Titration 25.741 426.920 1247.975 Amount D5-0.45% NaCl with KCl 150 1200 20Meq/l 1,000 ml @ 150 mls/hr IV .[id number] HUMAIRA Rx# :[id number] Insulin Regular 100 unit 25.741 15.242 1.975 In Sodium Chloride 0.9% 100 ml @ 0.1 UNITS/KG/HR 4.536 mls/hr IV .[id number] HUMAIRA Rx#:[id number] Other: Voiding Method Diaper Incontinent # Voids 1 2 Weight 52.5 kg In general patient is alert and oriented 3 in mild distress due to continuous nausea and vomiting HEENT head normocephalic and atraumatic Neck is supple no JVD no goiter Chest exam reveals a few scattered crackles bilaterally no wheezing Cardiac exam reveals regular heart sounds no gallops no murmurs Abdomen is soft with mild diffuse tenderness no organomegaly no palpable masses no rigidity or rebound Extremity exam reveals no edema no cyanosis or clubbing 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 Results CBC & Chem 7: 12/27/19 15:09 12/27/19 15:09 Labs: Abnormal Lab Results - Last 24 Hours (Table) 12/26/19 12/26/19 12/26/19 Range/Units 13:52 14:40 14:40 RBC 3.61 L (3.80-5.40) m/uL Hgb 10.5 L (11.4-16.0) gm/dL MCHC 30.6 L (31.0-37.0) g/dL Chloride (98-107) mmol/L Carbon Dioxide (22-30) mmol/L BUN 50 H (7-17) mg/dL Creatinine 1.13 H (0.52-1.04) mg/dL Glucose 595 H* (74-99) mg/dL POC Glucose (mg/dL) >600 H (75-99) mg/dL Total Protein 8.5 H (6.3-8.2) g/dL Albumin (3.5-5.0) g/dL 12/26/19 12/26/19 12/26/19 Range/Units 15:05 16:06 17:16 RBC (3.80-5.40) m/uL Hgb (11.4-16.0) gm/dL MCHC (31.0-37.0) g/dL Chloride (98-107) mmol/L Carbon Dioxide (22-30) mmol/L BUN (7-17) mg/dL Creatinine (0.52-1.04) mg/dL Glucose (74-99) mg/dL POC Glucose (mg/dL) 582 H 380 H 267 H (75-99) mg/dL Total Protein (6.3-8.2) g/dL Albumin (3.5-5.0) g/dL 12/26/19 12/26/19 12/26/19 Range/Units 18:25 19:17 20:20 RBC (3.80-5.40) m/uL Hgb (11.4-16.0) gm/dL MCHC (31.0-37.0) g/dL Chloride (98-107) mmol/L Carbon Dioxide (22-30) mmol/L BUN (7-17) mg/dL Creatinine (0.52-1.04) mg/dL Glucose (74-99) mg/dL POC Glucose (mg/dL) 179 H 216 H 141 H (75-99) mg/dL Total Protein (6.3-8.2) g/dL Albumin (3.5-5.0) g/dL 12/26/19 12/26/19 12/26/19 Range/Units 21:52 22:47 23:38 RBC (3.80-5.40) m/uL Hgb (11.4-16.0) gm/dL MCHC (31.0-37.0) g/dL Chloride 108 H (98-107) mmol/L Carbon Dioxide 21 L (22-30) mmol/L BUN 41 H (7-17) mg/dL Creatinine 1.19 H (0.52-1.04) mg/dL Glucose 235 H (74-99) mg/dL POC Glucose (mg/dL) 127 H 215 H (75-99) mg/dL Total Protein (6.3-8.2) g/dL Albumin 3.2 L (3.5-5.0) g/dL 12/27/19 12/27/19 12/27/19 Range/Units 00:03 00:59 01:59 RBC (3.80-5.40) m/uL Hgb (11.4-16.0) gm/dL MCHC (31.0-37.0) g/dL Chloride (98-107) mmol/L Carbon Dioxide (22-30) mmol/L BUN (7-17) mg/dL Creatinine (0.52-1.04) mg/dL Glucose (74-99) mg/dL POC Glucose (mg/dL) 264 H 248 H 222 H (75-99) mg/dL Total Protein (6.3-8.2) g/dL Albumin (3.5-5.0) g/dL 12/27/19 12/27/19 12/27/19 Range/Units 02:59 04:00 04:59 RBC (3.80-5.40) m/uL Hgb (11.4-16.0) gm/dL MCHC (31.0-37.0) g/dL Chloride (98-107) mmol/L Carbon Dioxide (22-30) mmol/L BUN (7-17) mg/dL Creatinine (0.52-1.04) mg/dL Glucose (74-99) mg/dL POC Glucose (mg/dL) 198 H 194 H 185 H (75-99) mg/dL Total Protein (6.3-8.2) g/dL Albumin (3.5-5.0) g/dL 12/27/19 12/27/19 12/27/19 Range/Units 06:00 07:16 08:02 RBC (3.80-5.40) m/uL Hgb (11.4-16.0) gm/dL MCHC (31.0-37.0) g/dL Chloride (98-107) mmol/L Carbon Dioxide (22-30) mmol/L BUN (7-17) mg/dL Creatinine (0.52-1.04) mg/dL Glucose (74-99) mg/dL POC Glucose (mg/dL) 149 H 137 H 153 H (75-99) mg/dL Total Protein (6.3-8.2) g/dL Albumin (3.5-5.0) g/dL Assessment and Plan Plan: 1. Severe hyperglycemia improving was insulin drip 2. Intractable nausea and vomiting, attempt to put NG tube failed to due to multiplefractures in the past, we are treating symptomatically, consultation for general surgery initiated 3. Underlying history of hypertension blood pressure is severely elevated we will use IV hydralazine when necessary 4. Underlying history of hyperlipidemia 5. Underlying history of depression and anxiety disorder 6. Previous history of stroke At this time we are treating symptomatically for nausea and vomiting Will attempt to obtain computed tomography scan of the abdomen Will continue insulin drip at this time will recheck labs in a.m.
[2019-12-27] MEDS: VALPROIC ACID ORAL SOLN 250 MG/5 ML CUP PO SCH (17:22)
[2019-12-27 17:33] LABS: Amylase 37 U/L (30-110)
[2019-12-27] MEDS: INSULIN REGULAR 100 UNIT in SODIUM CHLORIDE 0.9% 100 ML IV SCH (17:49)
[2019-12-27 17:52] LABS: Glucose,Whole Blood 325 mg/dL (75-99)
[2019-12-27] MEDS: INSULIN ASPART (NovoLOG) 100 UNIT/ML VIAL SQ SCH ×2 (17:56→20:26)
[2019-12-27] MEDS: DIVALPROEX 250 MG TABLET.DR PO SCH ×2 (17:56→23:01)
[2019-12-27] MEDS: PANTOPRAZOLE 40 MG/10 ML VIAL IVP SCH ×2 (17:59→20:36)
[2019-12-27 18:44] LABS: Glucose,Whole Blood 273 mg/dL (75-99)
[2019-12-27 20:02] LABS: Glucose,Whole Blood 156 mg/dL (75-99)
[2019-12-27 21:20] LABS: Glucose,Whole Blood 114 mg/dL (75-99)
[2019-12-27 22:08] LABS: Glucose,Whole Blood 122 mg/dL (75-99)
[2019-12-27] MEDS: INSULIN DETEMIR (LEVEMIR) 100 UNIT/ML SYR SQ SCH (22:58)
[2019-12-27] MEDS: ATORVASTATIN 20 MG TAB PO SCH (23:01)
[2019-12-27] MEDS: QUEtiapine 100 MG TAB PO SCH (23:01)
[2019-12-27 23:14] LABS: Glucose,Whole Blood 165 mg/dL (75-99)
[2019-12-27 23:54] LABS: Glucose,Whole Blood 203 mg/dL (75-99)
[2019-12-28] MEDS ORDERED: INSULIN DETEMIR (LEVEMIR) 100 UNIT/ML SYR SQ STA (01:08)
[2019-12-28 01:09] LABS: Glucose,Whole Blood 386 mg/dL (75-99)
[2019-12-28] MEDS ORDERED: LORazepam 2 MG/ML INJ IM STA (01:10)
[2019-12-28] MEDS: D5-0.45% NACL WITH KCL 20MEQ/L 1,000 ML IV SCH (01:30)
[2019-12-28 01:59] LABS: Glucose,Whole Blood 475 mg/dL (75-99)
--- NOTE | 2019-12-28 03:38 | CT ---
EXAMINATION TYPE: CT abdomen wo con DATE OF EXAM: 12/28/2019 COMPARISON: 03/15/2014 HISTORY: vomiting CT DLP: 422.2 mGycm Automated exposure control for dose reduction was used. Images were obtained from the diaphragm to the floor the pelvis with no contrast. FINDINGS: Lung bases are clear. There is no pleural effusion. Heart size is normal. There is no pericardial eff usion. Liver shows no focal defect. Spleen is intact. Stomach is intact. There is no pancreatic mass. There is no adrenal mass. There is some atherosclerotic vascular calcification. Kidneys have normal size. The ureters are not dilated. There is some mild fullness of the left and ri ght renal pelvis. There is no retroperitoneal adenopathy. Abdominal aorta is atheromatous. There is a therosclerotic vascular calcification in the iliac and femoral arteries. Bladder distends smoothly. T here is no inguinal hernia. There is old healed fracture left ischium. There is no evidence of a pelv ic mass. There is hysterectomy. Lumbar vertebra have normal alignment. Posterior elements are intact. Disc spaces are fairly normal. Bony pelvis is intact. There is no lumbar compression fracture. Appendix is not seen. There is no sign of thickened appendix. There is no mesenteric edema. There is no ascites or free air. There is no sign of a bowel obstruction. There are small air bubbles in the anterior subcutaneous fat probably from injection site. IMPRESSION: Mild fullness of the left and right renal pelvis is a change compared to old exam. No obstructing migdalia culus seen. Atherosclerotic vascular disease. There is clearing of the subcutaneous edema around the abdomen compared to old exam. I do not see a c ause for vomiting.
[2019-12-28] MEDS: METOCLOPRAMIDE 5 MG/ML 2 ML VIAL IVP SCH ×4 (05:18→22:38)
[2019-12-28] MEDS: INSULIN ASPART (NovoLOG) 100 UNIT/ML VIAL SQ SCH ×8 (06:31→20:18)
[2019-12-28 06:35] LABS: Glucose,Whole Blood 411 mg/dL (75-99)
[2019-12-28] MEDS ORDERED: VITAMIN B COMPLEX PO SCH (09:00)
[2019-12-28] MEDS ORDERED: ASCORBIC ACID PO SCH (09:00)
[2019-12-28] MEDS: VALPROIC ACID ORAL SOLN 250 MG/5 ML CUP PO SCH (09:59)
[2019-12-28] MEDS: DIVALPROEX 250 MG TABLET.DR PO SCH ×3 (10:01→19:39)
[2019-12-28] MEDS: PANTOPRAZOLE 40 MG/10 ML VIAL IVP SCH (10:03)
[2019-12-28] MEDS ORDERED: DEXTROSE 50% SYRINGE 50 ML IVP ONE ×2 (12:00→22:57)
[2019-12-28 12:34] LABS: Glucose,Whole Blood 54 mg/dL (75-99)
[2019-12-28 12:34] LABS: Glucose,Whole Blood 205 mg/dL (75-99)
[2019-12-28] MEDS: FERROUS SULFATE 325 MG TAB PO SCH (15:34)
[2019-12-28] MEDS: ASPIRIN 81 MG PO SCH (15:34)
[2019-12-28] MEDS: FAMOTIDINE 20 MG TAB PO SCH (15:34)
[2019-12-28] MEDS: DULoxetine HCL 60 MG CAPSULE.DR PO SCH (15:34)
[2019-12-28 15:42] LABS: Glucose,Whole Blood 109 mg/dL (75-99)
[2019-12-28 17:04] LABS: Glucose,Whole Blood 114 mg/dL (75-99)
--- NOTE | 2019-12-28 17:33 | P.GSCN ---
History of Present Illness Consult date: 12/28/19 Reason for Consult: Nausea and abdominal pain History of present illness: This 59-year-old female admitted to the medical service. The patient complaints of nausea and abdominal pain she came through the emergency room. The patient is unable to give any significant medical history. She is not complaining of any significant abdominal pain or nausea currently. Past Medical History Past Medical History: Asthma, Coronary Artery Disease (CAD), Chest Pain / Angina, Heart Failure, COPD, CVA/TIA, Diabetes Mellitus, Deep Vein Thrombosis (DVT), Eye Disorder, GERD/Reflux, Hyperlipidemia, Hypertension, Myocardial Infarction (NC), Neurologic Disorder, Osteoarthritis (OA), Pneumonia, Renal Disease Additional Past Medical History / Comment(s): IDDM (brittle), DKAs, neuropathy bilateral hands/feet, retinopathy bilateral eyes, cellulitis R foot, R great toe and 2nd toe infections/amputations, current wound R foot-being seen in [facility], renal failure, anemia, CVAs with L sided paralysis, headaches started after CVAs, brain lesions, DVT R axillae, low back pain, varicosities, seizure many years ago (2001), hypothyroid, constipation, bilateral tinnitis occasionally, sinus problems. Last Myocardial Infarction Date:: 2011 History of Any Multi-Drug Resistant Organisms: MRSA Year Discovered:: 09/06/17 MDRO Source:: Right Foot Past Surgical History: Appendectomy, Section, Cholecystectomy, Heart Catheterization With Stent, Hysterectomy, Orthopedic Surgery Additional Past Surgical History / Comment(s): PCI with multiple stents, R great toe and 2nd toe amps, debridements R foot ulcer, L shoulder surgery to remove bone, bronchoscopy, EGD, colonoscopy, R arm port since removed, bilateral cataract removals/lens implants. Past Anesthesia/Blood Transfusion Reactions: No Reported Reaction Additional Past Anesthesia/Blood Transfusion Reaction / Comm: HX OF BLOOD TRANSFUSION- NO REACTION Date of Last Stent Placement:: July 2012 Past Psychological History: Anxiety, Bipolar, Depression Additional Psychological History / Comment(s): Pt has a legal guardian, Sera Rodriguez, who is pt's sister. Currently her legal guardian is hospitalized. Pt has a caregiver, No, who resides with her. Pt is wheelchair bound d/t CVA with L sided paralysis arm and leg. She has a shower chair and a glucometer. Her sister or caregiver drive her to [employer]. Smoking Status: Former smoker Past Alcohol Use History: None Reported Additional Past Alcohol Use History / Comment(s): Pt started smoking in 1982 and quit in 2018. Using marijuana edibles occasionally but none for a "long time" Past Drug Use History: Marijuana Additional Drug Use History / Comment(s): using marijuana edibles - Past Family History Father Family Medical History: Unable to Obtain, Coronary Artery Disease (CAD), Diabetes Mellitus Mother Family Medical History: COPD Medications and Allergies Home Medications Medication Instructions Recorded Confirmed Type Famotidine [Pepcid] 20 mg PO DAILY@0900 07/19/15 12/26/19 History Ergocalciferol [Vitamin D2 50,000 unit PO SA@89903/05/16 12/26/19 History (DRISDOL)] HYDROcodone/APAP 10-325MG [York 1 tab PO Q6H PRN 10/03/16 12/26/19 History 10-325] DULoxetine HCL [Cymbalta] 60 mg PO DAILY@89902/16/17 12/26/19 History Atorvastatin [Lipitor] 20 mg PO DAILY@209912/28/18 12/26/19 History QUEtiapine [SEROquel] 100 mg PO HS@209912/28/18 12/26/19 History Vitamin B Complex With Vit C 1 tab PO DAILY 06/01/19 12/26/19 History Aspirin [Adult Low Dose Aspirin EC] 81 mg PO DAILY@0900 06/09/19 12/26/19 History Ferrous Sulfate [Iron (65 MG 325 mg PO DAILY@89906/09/19 12/26/19 History Elemental)] INSULIN LISPRO (humaLOG) [humaLOG] See Protocol SQ ACHS 08/13/19 12/26/19 Histor y Insulin Glargine,Hum.rec.anlog 20 unit SQ HS 08/13/19 12/26/19 History [Basaglar Anshuikpen U-100] Divalproex [Depakote] 250 mg PO TID #90 tablet. 08/17/19 12/26/19 Rx ALPRAZolam [Xanax] 1 mg PO TID PRN 12/26/19 12/26/19 History Albuterol Sulfate [Ventolin HFA] 2 puff INHALATION RT-Q4H PRN 12/26/19 12/26/19 History Ondansetron Odt [Zofran Odt] 4 mg PO DAILY PRN 12/26/19 12/26/19 History Valproic Acid [Depakene] 250 mg PO DAILY 12/26/19 12/26/19 History Allergies Allergy/AdvReac Type Severity Reaction Status Date / Time Barbiturates Allergy Rash/Hives Verified 12/26/19 17:26 cephalexin monohydrate Allergy Rash/Hives Verified 12/26/19 17:26 [From [facility]] morphine Allergy Rash/Hives Verified 12/26/19 17:26 Penicillins Allergy Rash/Hives Verified 12/26/19 17:26 phenobarbital Allergy Swelling Verified 12/26/19 17:26 venom-honey bee Allergy Swelling Verified 12/26/19 17:26 [bee venom (honey bee)] amlodipine besylate AdvReac Vomiting Verified 12/26/19 17:26 [From [facility]] Surgical - Exam Vital Signs Pulse Resp BP Pulse Ox 116 H 18 151/83 99 12/26/19 13:47 12/26/19 13:47 12/26/19 13:47 12/26/19 13:47 - General no distress - Eyes PERRL - ENT normal pinna - Neck no masses - Respiratory normal expansion - Cardiovascular Rhythm: regular - Abdomen Abdomen: soft, non tender Results - Labs 12/27/19 15:09 12/27/19 15:09 Abnormal Lab Results - Last 24 Hours (Table) 12/27/19 12/27/19 12/27/19 Range/Units 17:43 18:42 20:00 POC Glucose (mg/dL) 325 H 273 H 156 H (75-99) mg/dL 12/27/19 12/27/19 12/27/19 Range/Units 20:54 21:56 22:57 POC Glucose (mg/dL) 114 H 122 H 165 H (75-99) mg/dL 12/27/19 12/28/19 12/28/19 Range/Units 23:53 00:55 01:57 POC Glucose (mg/dL) 203 H 386 H 475 H (75-99) mg/dL 12/28/19 12/28/19 12/28/19 Range/Units 06:29 11:46 12:05 POC Glucose (mg/dL) 411 H 54 L 205 H (75-99) mg/dL 12/28/19 12/28/19 Range/Units 15:38 16:34 POC Glucose (mg/dL) 109 H 114 H (75-99) mg/dL Assessment and Plan Assessment: Patient's abdominal pain and nausea. Resolved. No surgical intervention is planned. She will start diet.
[2019-12-28] MEDS: PANTOPRAZOLE 40 MG TABLET PO SCH (18:48)
[2019-12-28] MEDS: ATORVASTATIN 20 MG TAB PO SCH (19:39)
[2019-12-28] MEDS: QUEtiapine 100 MG TAB PO SCH (19:39)
[2019-12-28 20:15] LABS: Glucose,Whole Blood 190 mg/dL (75-99)
[2019-12-28] MEDS: INSULIN DETEMIR (LEVEMIR) 100 UNIT/ML SYR SQ SCH (20:17)
[2019-12-28 23:00] LABS: Glucose,Whole Blood 94 mg/dL (75-99)
[2019-12-28 23:09] LABS: Glucose,Whole Blood 91 mg/dL (75-99)
[2019-12-28 23:15] LABS: ABG Base Excess 1.3 mmol/L; ABG HCO3 26 mmol/L (21-25); ABG Oxygen Saturation 96.6 % (94-97); ABG PCO2 38 mmHg (35-45); ABG PH 7.44 (7.35-7.45); ABG PO2 86 mmHg (83-108); ABG TCO2 27 mmol/L (19-24); Allen Test Performed? Yes
[2019-12-28] MEDS ORDERED: SODIUM CHLORIDE 0.9% 1,000 ML IV ONE (23:26)
[2019-12-28 23:31] LABS: Basophils % (A) 0 %; Eosinophils % (A) 0 %; HCT 26.5 % (34.0-46.0); Hypochromasia Slight; Lymphocytes # (A) 2.7 k/uL (1.0-4.8); Lymphocytes % (A) 53 %; MCH 28.6 pg (25.0-35.0); MCHC 30.8 g/dL (31.0-37.0); MCV 92.8 fL (80.0-100.0); Mean Platelet Volume 7.3; Monocytes # (A) 0.4 k/uL (0-1.0); Monocytes % (A) 7 %; Neutrophils % (A) 38 %; Platelet Count 208 k/uL (150-450); RBC 2.86 m/uL (3.80-5.40); RDW 15.6 % (11.5-15.5); WBC 5.2 k/uL (3.8-10.6)
[2019-12-28 23:41] LABS: Albumin 2.5 g/dL (3.5-5.0); Calcium 8.1 mg/dL (8.4-10.2); Potassium 4.2 mmol/L (3.5-5.1); Total Bilirubin 0.2 mg/dL (0.2-1.3); Total Protein 5.7 g/dL (6.3-8.2)
[2019-12-28 23:46] LABS: Glucose,Whole Blood 98 mg/dL (75-99)
[2019-12-28 23:49] LABS: Prothrombin Time 10.7 sec (9.0-12.0)
[2019-12-28 23:57] LABS: HGB 8.2 gm/dL (11.4-16.0)
[2019-12-29] MEDS ORDERED: SODIUM CHLORIDE 0.9% 1,000 ML IV SCH (00:10)
[2019-12-29] MEDS ORDERED: SODIUM CHLORIDE 0.9% 1,000 ML IV ONE (00:10)
[2019-12-29 04:57] LABS: Basophils % (A) 0 %; Eosinophils % (A) 0 %; HCT 30.8 % (34.0-46.0); HGB 9.6 gm/dL (11.4-16.0); Hypochromasia Moderate; Lymphocytes # (A) 2.3 k/uL (1.0-4.8); Lymphocytes % (A) 48 %; MCH 28.9 pg (25.0-35.0); MCHC 31.1 g/dL (31.0-37.0); MCV 93.2 fL (80.0-100.0); Mean Platelet Volume 7.8; Monocytes # (A) 0.3 k/uL (0-1.0); Monocytes % (A) 7 %; Neutrophils # (A) 2.1 k/uL (1.3-7.7); Neutrophils % (A) 42 %; Platelet Count 231 k/uL (150-450); RBC 3.31 m/uL (3.80-5.40); RDW 15.7 % (11.5-15.5); WBC 4.9 k/uL (3.8-10.6)
[2019-12-29 05:05] LABS: Calcium 8.5 mg/dL (8.4-10.2); Potassium 4.4 mmol/L (3.5-5.1); Total Bilirubin 0.2 mg/dL (0.2-1.3); Total Protein 6.7 g/dL (6.3-8.2)
[2019-12-29] MEDS ORDERED: DEXTROSE 50% SYRINGE 50 ML IVP ONE ×2 (05:12→11:08)
[2019-12-29 05:14] LABS: Glucose,Whole Blood 32 mg/dL (75-99)
[2019-12-29 05:36] LABS: Glucose,Whole Blood 44 mg/dL (75-99)
[2019-12-29 05:36] LABS: Glucose,Whole Blood 44 mg/dL (75-99)
[2019-12-29 05:53] LABS: Glucose,Whole Blood 85 mg/dL (75-99)
[2019-12-29 07:12] LABS: Glucose,Whole Blood 158 mg/dL (75-99)
[2019-12-29] MEDS: METOCLOPRAMIDE 5 MG/ML 2 ML VIAL IVP SCH (08:50)
[2019-12-29] MEDS: INSULIN ASPART (NovoLOG) 100 UNIT/ML VIAL SQ SCH ×5 (08:53→22:05)
[2019-12-29 08:54] LABS: Glucose,Whole Blood 78 mg/dL (75-99)
[2019-12-29] MEDS: DULoxetine HCL 60 MG CAPSULE.DR PO SCH (09:02)
[2019-12-29] MEDS: FAMOTIDINE 20 MG TAB PO SCH (09:02)
[2019-12-29] MEDS: DIVALPROEX 250 MG TABLET.DR PO SCH ×3 (09:02→22:51)
[2019-12-29] MEDS: ASPIRIN 81 MG PO SCH (09:02)
[2019-12-29] MEDS: VALPROIC ACID ORAL SOLN 250 MG/5 ML CUP PO SCH (09:04)
[2019-12-29] MEDS: FERROUS SULFATE 325 MG TAB PO SCH (09:04)
[2019-12-29] MEDS: HEPARIN SODIUM,PORCINE 5,000 UNIT/ML 1 ML VIAL SQ SCH ×2 (09:21→22:04)
[2019-12-29] MEDS: PANTOPRAZOLE 40 MG TABLET PO SCH ×2 (09:21→17:05)
[2019-12-29 09:41] LABS: Glucose,Whole Blood 84 mg/dL (75-99)
[2019-12-29 10:44] LABS: Glucose,Whole Blood 35 mg/dL (75-99)
[2019-12-29 10:56] LABS: Glucose,Whole Blood 37 mg/dL (75-99)
[2019-12-29] MEDS ORDERED: DEXTROSE 5% IN WATER 1,000 ML IV ONE (11:04)
--- NOTE | 2019-12-29 11:04 | P.PN ---
<Mandi Fernandes A - Last Filed: 12/29/19 11:01> Subjective Progress Note Date: 12/29/19 CHIEF COMPLAINT: Abdominal pain HISTORY OF PRESENT ILLNESS: Patient examined in the intensive care unit with Dr. Newman (covering for Dr. Key). Patient is lethargic at the time of ex amination. She awakens to verbal stimuli. She denies abdominal pain. No nausea or vomiting. WBC 4.9. Hemoglobin 9.6. Vital signs are stable. She is afebrile. PHYSICAL EXAM: VITAL SIGNS: Reviewed GENERAL: Well-developed in no acute distress. HEENT: No sclera icterus. Extraocular movements grossly intact. Moist buccal mucosa. Head is atraumatic, normocephalic. Hears conversational speech. No nasal drainage. NECK: Supple without lymphadenopathy. CHEST: Non-labored respirations and equal bilateral excursions. CARDIOVASCULAR: Regular rate with regular rhythm. Palpable 2+ radial pulses. ABDOMEN: Soft. Nondistended. Nontender. MUSCULOSKELETAL: No clubbing or cyanosis. NEUROLOGIC: No focal or lateralizing signs. Cranial nerves II through XII grossly intact. PSYCH: Patient lethargic. Awakens to verbal stimuli. SKIN: Well perfused. Good skin turgor. ASSESSMENT: 1. Abdominal pain, resolved PLAN: Patients abdominal pain has resolved. Continue diet as tolerated. No surgical intervention recommended. Continue management per medicine. We will sign off. Please re-consult if needed. Nurse practitioner note has been reviewed by physician. Signing provider agrees with the documented findings, assessment, and plan of care. Objective - Vital Signs Vital signs: Vital Signs Temp 98.0 F 12/29/19 08:00 Pulse 85 12/29/19 08:00 Resp 12 12/29/19 08:00 BP 130/66 12/29/19 09:00 Pulse Ox 96 12/29/19 09:00 Intake & Output 12/28/19 12/29/19 12/29/19 18:59 06:59 18:59 Intake Total 0 1730 100 Output Total 555 60 Balance 0 1175 40 Weight 49.5 kg 50.9 kg Intake: IV 100 Sodium Chloride 0.9% 1, 100 000 ml @ 50 mls/hr IV . Q20H [facility] Rx#:[id number] Intake, IV Titration 1250 Amount Sodium Chloride 0.9% 1, 250 000 ml @ 50 mls/hr IV . Q20H [facility] Rx#:[id number] Sodium Chloride 0.9% 1, 1000 000 ml @ 999 mls/hr IV . Q1H1M [facility] Rx#:[id number] Oral 0 480 Output: Urine 555 60 Other: Voiding Method Diaper Indwelling Catheter Incontinent # Voids 1 1 # Bowel Movements 1 - Labs CBC & Chem 7: 12/29/19 04:27 12/29/19 04:27 Labs: Abnormal Lab Results - Last 24 Hours (Table) 12/28/19 12/28/19 12/28/19 Range/Units 11:46 12:05 15:38 RBC (3.80-5.40) m/uL Hgb (11.4-16.0) gm/dL Hct (34.0-46.0) % MCHC (31.0-37.0) g/dL RDW (11.5-15.5) % ABG HCO3 (21-25) mmol/L ABG Total CO2 (19-24) mmol/L Sodium (137-145) mmol/L Chloride (98-107) mmol/L BUN (7-17) mg/dL Creatinine (0.52-1.04) mg/dL Glucose (74-99) mg/dL POC Glucose (mg/dL) 54 L 205 H 109 H (75-99) mg/dL Plasma Lactic Acid Conrado (0.7-2.0) mmol/L Calcium (8.4-10.2) mg/dL AST (14-36) U/L ALT (4-34) U/L Ammonia (<30) umol/L Total Protein (6.3-8.2) g/dL Albumin (3.5-5.0) g/dL 12/28/19 12/28/19 12/28/19 Range/Units 16:34 20:12 23:12 RBC (3.80-5.40) m/uL Hgb (11.4-16.0) gm/dL Hct (34.0-46.0) % MCHC (31.0-37.0) g/dL RDW (11.5-15.5) % ABG HCO3 26 H (21-25) mmol/L ABG Total CO2 27 H (19-24) mmol/L Sodium (137-145) mmol/L Chloride (98-107) mmol/L BUN (7-17) mg/dL Creatinine (0.52-1.04) mg/dL Glucose (74-99) mg/dL POC Glucose (mg/dL) 114 H 190 H (75-99) mg/dL Plasma Lactic Acid Conrado (0.7-2.0) mmol/L Calcium (8.4-10.2) mg/dL AST (14-36) U/L ALT (4-34) U/L Ammonia (<30) umol/L Total Protein (6.3-8.2) g/dL Albumin (3.5-5.0) g/dL 12/28/19 12/28/19 12/28/19 Range/Units 23:13 23:13 23:13 RBC 2.86 L (3.80-5.40) m/uL Hgb 8.2 L D (11.4-16.0) gm/dL Hct 26.5 L (34.0-46.0) % MCHC 30.8 L (31.0-37.0) g/dL RDW 15.6 H (11.5-15.5) % ABG HCO3 (21-25) mmol/L ABG Total CO2 (19-24) mmol/L Sodium 136 L (137-145) mmol/L Chloride (98-107) mmol/L BUN 23 H (7-17) mg/dL Creatinine 1.29 H (0.52-1.04) mg/dL Glucose 161 H (74-99) mg/dL POC Glucose (mg/dL) (75-99) mg/dL Plasma Lactic Acid Conrado 2.3 H* (0.7-2.0) mmol/L Calcium 8.1 L (8.4-10.2) mg/dL AST 225 H (14-36) U/L ALT 117 H (4-34) U/L Ammonia (<30) umol/L Total Protein 5.7 L (6.3-8.2) g/dL Albumin 2.5 L (3.5-5.0) g/dL 12/29/19 12/29/19 12/29/19 Range/Units 00:00 04:27 04:27 RBC 3.31 L (3.80-5.40) m/uL Hgb 9.6 L (11.4-16.0) gm/dL Hct 30.8 L (34.0-46.0) % MCHC (31.0-37.0) g/dL RDW 15.7 H (11.5-15.5) % ABG HCO3 (21-25) mmol/L ABG Total CO2 (19-24) mmol/L Sodium (137-145) mmol/L Chloride 112 H (98-107) mmol/L BUN 23 H (7-17) mg/dL Creatinine 1.13 H (0.52-1.04) mg/dL Glucose 29 L* (74-99) mg/dL POC Glucose (mg/dL) (75-99) mg/dL Plasma Lactic Acid Conrado (0.7-2.0) mmol/L Calcium (8.4-10.2) mg/dL AST 222 H (14-36) U/L ALT 137 H (4-34) U/L Ammonia 41 H (<30) umol/L Total Protein (6.3-8.2) g/dL Albumin 3.0 L (3.5-5.0) g/dL 12/29/19 12/29/19 12/29/19 Range/Units 05:13 05:33 05:35 RBC (3.80-5.40) m/uL Hgb (11.4-16.0) gm/dL Hct (34.0-46.0) % MCHC (31.0-37.0) g/dL RDW (11.5-15.5) % ABG HCO3 (21-25) mmol/L ABG Total CO2 (19-24) mmol/L Sodium (137-145) mmol/L Chloride (98-107) mmol/L BUN (7-17) mg/dL Creatinine (0.52-1.04) mg/dL Glucose (74-99) mg/dL POC Glucose (mg/dL) 32 L 44 L 44 L (75-99) mg/dL Plasma Lactic Acid Conrado (0.7-2.0) mmol/L Calcium (8.4-10.2) mg/dL AST (14-36) U/L ALT (4-34) U/L Ammonia (<30) umol/L Total Protein (6.3-8.2) g/dL Albumin (3.5-5.0) g/dL 12/29/19 12/29/19 12/29/19 Range/Units 07:10 10:43 10:54 RBC (3.80-5.40) m/uL Hgb (11.4-16.0) gm/dL Hct (34.0-46.0) % MCHC (31.0-37.0) g/dL RDW (11.5-15.5) % ABG HCO3 (21-25) mmol/L ABG Total CO2 (19-24) mmol/L Sodium (137-145) mmol/L Chloride (98-107) mmol/L BUN (7-17) mg/dL Creatinine (0.52-1.04) mg/dL Glucose (74-99) mg/dL POC Glucose (mg/dL) 158 H 35 L 37 L (75-99) mg/dL Plasma Lactic Acid Conrado (0.7-2.0) mmol/L Calcium (8.4-10.2) mg/dL AST (14-36) U/L ALT (4-34) U/L Ammonia (<30) umol/L Total Protein (6.3-8.2) g/dL Albumin (3.5-5.0) g/dL <Shruthi Newman N - Last Filed: 12/31/19 23:24> Subjective Patient seen and evaluated. Agree with above. At this time, patient is stable. Diet as tolerated. Objective - Vital Signs Vital signs: Vital Signs Temp 98.2 F 12/31/19 21:00 Pulse 98 12/31/19 21:00 Resp 16 12/31/19 21:00 BP 129/77 12/31/19 21:00 Pulse Ox 99 12/31/19 21:00 Intake & Output 12/31/19 12/31/19 01/01/20 06:59 18:59 06:59 Intake Total 700 Output Total 2600 675 Balance -1900 -675 Weight 54 kg Intake: Oral 700 Output: Urine 2600 675 Uretheral (Daigle) 2600 675 Other: Voiding Method Indwelling Catheter Incontinent # Voids 1 # Bowel Movements 0 - Labs CBC & Chem 7: 12/31/19 06:25 12/31/19 20:24 Labs: Abnormal Lab Results - Last 24 Hours (Table) 12/31/19 12/31/19 12/31/19 Range/Units 02:00 06:25 06:25 RBC 3.52 L (3.80-5.40) m/uL Hgb 10.2 L (11.4-16.0) gm/dL Hct 32.5 L (34.0-46.0) % RDW 15.7 H (11.5-15.5) % Sodium 136 L (137-145) mmol/L BUN 21 H (7-17) mg/dL Creatinine 1.07 H (0.52-1.04) mg/dL Glucose 309 H (74-99) mg/dL POC Glucose (mg/dL) 448 H (75-99) mg/dL ALT 58 H (4-34) U/L Albumin 3.2 L (3.5-5.0) g/dL 12/31/19 12/31/19 12/31/19 Range/Units 07:14 11:24 17:20 RBC (3.80-5.40) m/uL Hgb (11.4-16.0) gm/dL Hct (34.0-46.0) % RDW (11.5-15.5) % Sodium (137-145) mmol/L BUN (7-17) mg/dL Creatinine (0.52-1.04) mg/dL Glucose (74-99) mg/dL POC Glucose (mg/dL) 308 H 285 H >600 H (75-99) mg/dL ALT (4-34) U/L Albumin (3.5-5.0) g/dL 12/31/19 12/31/19 12/31/19 Range/Units 17:21 17:35 20:00 RBC (3.80-5.40) m/uL Hgb (11.4-16.0) gm/dL Hct (34.0-46.0) % RDW (11.5-15.5) % Sodium (137-145) mmol/L BUN (7-17) mg/dL Creatinine (0.52-1.04) mg/dL Glucose 617 H* (74-99) mg/dL POC Glucose (mg/dL) >600 H >600 H (75-99) mg/dL ALT (4-34) U/L Albumin (3.5-5.0) g/dL 12/31/19 Range/Units 20:24 RBC (3.80-5.40) m/uL Hgb (11.4-16.0) gm/dL Hct (34.0-46.0) % RDW (11.5-15.5) % Sodium (137-145) mmol/L BUN (7-17) mg/dL Creatinine (0.52-1.04) mg/dL Glucose 561 H* (74-99) mg/dL POC Glucose (mg/dL) (75-99) mg/dL ALT (4-34) U/L Albumin (3.5-5.0) g/dL
[2019-12-29] MEDS ORDERED: DEXTROSE 50% SYRINGE 50 ML IVP STA (11:06)
[2019-12-29 11:08] LABS: Glucose,Whole Blood 59 mg/dL (75-99)
[2019-12-29 11:16] LABS: Glucose,Whole Blood 320 mg/dL (75-99)
--- NOTE | 2019-12-29 12:06 | CONS ---
CONSULTATION PULMONARY/CRITICAL CARE CONSULTATION: REASON FOR CONSULTATION: Mental status changes. DATE OF SERVICE: 12/29/2019 This is a patient who presented to the emergency room on December 25. She is 59 years of age. She apparently was admitted with a diagnosis of hyperglycemia and possible diabetic ketoacidosis. Her blood sugar readings apparently have been high for the last 3 days. She was complaining of fatigue as well as polyuria and polydipsia. She also was feeling quite achy all over. There was no fever or recent illness. She denied any chest pain or chest discomfort. There was no abdominal pain. There was no nausea, vomiting or diarrhea. The patient apparently has had previous episodes of diabetic ketoacidosis in the past. Apparently yesterday, she was evaluated. An A-team was called. She came to the ICU primarily because of lethargy, somnolence, inability to be aroused and hypotension. She received 1.5 L of fluid between the floor and the ICU. Currently, she is on room air. She is getting saline at 50 mL an hour. She seemed to be fully recovered. It is not exactly clear what happened. According to the nurse on the A-team, she was not hypoglycemic. She did receive some dextrose. That did not seem to cause her to be aroused. It may relate to her other medications including Depakene and Seroquel. She apparently had not been getting those and recently got those here in the hospital and that may have caused mental status changes. Finally, she had been receiving some Driftwood from time to time. HOME MEDICATIONS: Reviewed. She is on albuterol inhaler, Pepcid, vitamin D2, Driftwood, Cymbalta, Zofran, Lipitor, Seroquel, vitamin B, aspirin, iron, and insulin. Other medications include Xanax and Depakote. ALLERGIES: Were multiple included BARBITURATES, KEFLEX, MORPHINE, PENICILLIN, PHENOBARBITAL, HONEY BEE VENOM, and AMLODIPINE. PAST MEDICAL HISTORY: Includes asthma, CAD, chest pain/angina, heart failure, COPD, diabetes, CVA, DVT, GERD, hyperlipidemia, hypertension, myocardial infarction, osteoarthritis, and pneumonia. Other medical problems include multiple episodes of diabetic ketoacidosis, diabetic neuropathy, diabetic retinopathy, cellulitis, right great toe and second toe amputation, CVA with left-sided paralysis/weakness, headaches, tendinitis, lower extremity varicosities, seizure disorder, and hypothyroidism. SURGICAL HISTORY: Includes among other things appendectomy, , cholecystectomy, heart catheterization with stent, hysterectomy, right great toe and second toe amputation, debridement right foot also, left shoulder surgery, bronchoscopy, EGD, and bilateral cataract surgery with lens implants. SOCIAL HISTORY: Positive for previous heavy tobacco use. She apparently does not smoke currently. Denies alcohol use. She does use marijuana. FAMILY HISTORY: Positive for father with CAD and diabetes and a mother with COPD. REVIEW OF SYSTEMS: CONSTITUTIONAL: Negative. NEUROLOGIC: Negative. HEENT: Negative. CARDIOVASCULAR: Negative. PULMONARY: Negative. GI: Negative. : Negative. RHEUMATOLOGIC: Negative. IMMUNOLOGIC: Negative. ENDOCRINOLOGIC: Negative. DERMATOLOGIC: Negative. The patient does not really have any recall or memory of what happened to her yesterday. Current vital signs include a temperature of 98, heart rate 85, respiratory rate 12, blood pressure 130/66 mean 87 and saturation on room air 97%. Appears in no acute distress. HEENT: Examination is grossly unremarkable. NECK: Supple, full range of motion. No adenopathy or thyromegaly. Neck veins are flat. CARDIOVASCULAR: Examination reveals regular rhythm and rate. Heart rate 85. S1, S2 normal. LUNGS: Reveal relatively clear breath sounds. No wheezes, rhonchi, or crackles. ABDOMEN: Soft. EXTREMITIES: Intact. She does have a prior amputation of the right great toe and right second toe. SKIN: Without rash. NEUROLOGIC: Examination is brief but nonfocal. LABS: Reviewed. White count 4.9, hemoglobin 9.6, hematocrit 30.8, platelet count 231,000, PT, INR was 10.7 and 1. Blood gas was done at the time of her A-team evaluation with a pO2 of 86, pCO2 of 38 and a pH is 7.44. Sodium 141, potassium 4.4, chloride 112, CO2 is 25, anion gap is 4. BUN and creatinine were 23 and 1.13. AST 222, ALT 137. Ammonia level is 41. Microbiology is currently pending or negative. CT of the abdomen and pelvis shows mild fullness of the left and right renal pelvis. There is no obstructing calculus. Medications are reviewed. Currently, the patient is on albuterol inhaler, Xanax, aspirin, atorvastatin, Depakote, Cymbalta, vitamin D2, Pepcid, iron, subcu heparin, hydralazine, Driftwood, insulin, Narcan, Zofran, Protonix, Tigan, and valproic acid. ASSESSMENT: 1. Mental status changes, of unclear etiology. 2. Admission, on December 25 for hyperglycemia and DKA. 3. Status post amputation of right great toe and right second toe. 4. Mental status changes of unclear etiology, currently being evaluated. 5. History of asthma. 6. History of coronary artery disease. 7. History of angina pectoris. 8. History of congestive heart failure. 9. History of CVA. 10.History of COPD. 11.Diabetes mellitus with diabetic end organ involvement. 12.History of deep venous thrombosis. 13.Gastroesophageal reflux disease. 14.Bilateral cataract removal with lens implant. 15.Hyperlipidemia. 16.History of hypertension. 17.History of myocardial infarction. 18.History of CVA with left-sided paralysis/weakness. 19.Multiple other medical problems and comorbidities. PLAN: The patient looks much better. If her neurologic status continues to remain stable, will plan on transferring around to the general medical floor later today. No additional recommendations are made. Will cut back on the unnecessary medications which may have a profound effect on her respiratory status and cause respiratory depression or mental status changes. MMODL / IJN: [id number] / ISIDRA
[2019-12-29 13:01] LABS: Glucose,Whole Blood 315 mg/dL (75-99)
[2019-12-29 14:13] LABS: Glucose,Whole Blood 282 mg/dL (75-99)
--- NOTE | 2019-12-29 15:04 | P.PN ---
Subjective Progress Note Date: 12/28/19 Melva Jackson, is a 59-year-old female who presented to [facility] emergency room due to uncontrolled blood sugar, caregiver states that sugar has been up above 600 for about 3 days, she has been giving her extra insulin without ability of getting sugar under control. Patient was evaluated in the emergency room she was started on IV insulin drip and was admitted to medical floor. On the medical floor patient started developing nausea and vomiting, otherwise she denies any complaints there is no fever or chills no headache or dizziness no chest pain no shortness of breath no cough no burning was urination no frequency or urgency and no hematuria On 12/28/2019 patient was seen and examined on the medical floor she is feeling somewhat better nausea and vomiting is subsiding abdominal pain improving there is no fever or chills no headache or dizziness no chest pain no shortness of breath no cough no nausea or vomiting no abdominal pain no diarrhea no burning was urination no frequency or urgency and no hematuria, patient is improving insulin drip was discontinued and patient was restarted on her home insulin dose Objective - Vital Signs Vital signs: Vital Signs Temp 98.3 F 12/28/19 11:30 Pulse 88 12/28/19 11:30 Resp 18 12/28/19 11:30 BP 129/69 12/28/19 11:30 Pulse Ox 94 L 12/28/19 11:30 Intake & Output 12/27/19 12/28/19 12/28/19 18:59 06:59 18:59 Intake Total 1350.369 3584.517 0 Balance 8489.804 2646.517 0 Weight 52.5 kg 49.5 kg 49.5 kg Intake: Intake, IV Titration 4197.358 5068.517 Amount D5-0.45% NaCl with KCl 1200 1200 20Meq/l 1,000 ml @ 50 mls /hr IV .Q20H [facility] Rx#: [id number] Insulin Regular 100 unit 18.926 14.517 In Sodium Chloride 0.9% 100 ml @ 0.1 UNITS/KG/HR 4.536 mls/hr IV .[id number] [facility] Rx#:[id number] Oral 0 0 Other: Voiding Method Diaper Diaper Diaper Incontinent Incontinent Incontinent # Voids 3 1 1 # Bowel Movements 1 1 1 - Exam In general patient is alert and oriented 3 in mild distress due to continuous nausea and vomiting HEENT head normocephalic and atraumatic Neck is supple no JVD no goiter Chest exam reveals a few scattered crackles bilaterally no wheezing Cardiac exam reveals regular heart sounds no gallops no murmurs Abdomen is soft with mild diffuse tenderness no organomegaly no palpable masses no rigidity or rebound Extremity exam reveals no edema no cyanosis or clubbing 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 - Labs CBC & Chem 7: 12/29/19 04:27 12/29/19 04:27 Labs: Abnormal Lab Results - Last 24 Hours (Table) 12/27/19 12/27/19 12/27/19 Range/Units 14:13 15:06 15:09 RBC 3.48 L (3.80-5.40) m/uL Hgb 10.2 L (11.4-16.0) gm/dL Hct 32.2 L (34.0-46.0) % Sodium (137-145) mmol/L BUN (7-17) mg/dL Glucose (74-99) mg/dL POC Glucose (mg/dL) 351 H 409 H (75-99) mg/dL 12/27/19 12/27/19 12/27/19 Range/Units 15:09 16:00 17:43 RBC (3.80-5.40) m/uL Hgb (11.4-16.0) gm/dL Hct (34.0-46.0) % Sodium 134 L (137-145) mmol/L BUN 22 H (7-17) mg/dL Glucose 412 H (74-99) mg/dL POC Glucose (mg/dL) 409 H 325 H (75-99) mg/dL 12/27/19 12/27/19 12/27/19 Range/Units 18:42 20:00 20:54 RBC (3.80-5.40) m/uL Hgb (11.4-16.0) gm/dL Hct (34.0-46.0) % Sodium (137-145) mmol/L BUN (7-17) mg/dL Glucose (74-99) mg/dL POC Glucose (mg/dL) 273 H 156 H 114 H (75-99) mg/dL 12/27/19 12/27/19 12/27/19 Range/Units 21:56 22:57 23:53 RBC (3.80-5.40) m/uL Hgb (11.4-16.0) gm/dL Hct (34.0-46.0) % Sodium (137-145) mmol/L BUN (7-17) mg/dL Glucose (74-99) mg/dL POC Glucose (mg/dL) 122 H 165 H 203 H (75-99) mg/dL 12/28/19 12/28/19 12/28/19 Range/Units 00:55 01:57 06:29 RBC (3.80-5.40) m/uL Hgb (11.4-16.0) gm/dL Hct (34.0-46.0) % Sodium (137-145) mmol/L BUN (7-17) mg/dL Glucose (74-99) mg/dL POC Glucose (mg/dL) 386 H 475 H 411 H (75-99) mg/dL 12/28/19 12/28/19 Range/Units 11:46 12:05 RBC (3.80-5.40) m/uL Hgb (11.4-16.0) gm/dL Hct (34.0-46.0) % Sodium (137-145) mmol/L BUN (7-17) mg/dL Glucose (74-99) mg/dL POC Glucose (mg/dL) 54 L 205 H (75-99) mg/dL Assessment and Plan Plan: 1. Severe hyperglycemia improving was insulin drip 2. Intractable nausea and vomiting, attempt to put NG tube failed to due to multiplefractures in the past, we are treating symptomatically, consultation for general surgery initiated 3. Underlying history of hypertension blood pressure is severely elevated we will use IV hydralazine when necessary 4. Underlying history of hyperlipidemia 5. Underlying history of depression and anxiety disorder 6. Previous history of stroke At this time we are treating symptomatically for nausea and vomiting Will att empt to obtain computed tomography scan of the abdomen Will continue insulin drip at this time will recheck labs in a.m.
--- NOTE | 2019-12-29 15:06 | P.PN ---
Subjective Progress Note Date: 12/29/19 Melva Jackson, is a 59-year-old female who presented to [facility] emergency room due to uncontrolled blood sugar, caregiver states that sugar has been up above 600 for about 3 days, she has been giving her extra insulin without ability of getting sugar under control. Patient was evaluated in the emergency room she was started on IV insulin drip and was admitted to medical floor. On the medical floor patient started developing nausea and vomiting, otherwise she denies any complaints there is no fever or chills no headache or dizziness no chest pain no shortness of breath no cough no burning was urination no frequency or urgency and no hematuria On 12/28/2019 patient was seen and examined on the medical floor she is feeling somewhat better nausea and vomiting is subsiding abdominal pain improving there is no fever or chills no headache or dizziness no chest pain no shortness of breath no cough no nausea or vomiting no abdominal pain no diarrhea no burning was urination no frequency or urgency and no hematuria, patient is improving insulin drip was discontinued and patient was restarted on her home insulin dose. On 12/29/2019 patient was seen and examined in the ICU she is alert and oriented 3 in no apparent distress last night patient had an episode of hypotension likely related to dehydration due to nausea and vomiting A team was called, and patient was transferred to ICU she was given IV fluid and her blood pressure is up to normal range today there was no need to use any vasopressors, today patient is feeling well she had episodes of hypoglycemia this morning she was started on D5W and her sugar is in normal range at this time otherwise she denies any complaints there is no fever or chills no headache or dizziness no chest pain no shortness of breath no cough no nausea or vomiting no abdominal pain no diarrhea no burning with urination no frequency or urgency and no hematuria Objective - Vital Signs Vital signs: Vital Signs Temp 98.0 F 12/29/19 08:00 Pulse 85 12/29/19 08:00 Resp 12 12/29/19 08:00 BP 130/66 12/29/19 09:00 Pulse Ox 96 12/29/19 09:00 Intake & Output 12/28/19 12/29/19 12/29/19 18:59 06:59 18:59 Intake Total 0 1730 250 Output Total 555 410 Balance 0 1175 -160 Weight 49.5 kg 50.9 kg Intake: IV 250 Dextrose 5% in Water 1, 150 000 ml @ 50 mls/hr IV . Q20H [facility] Rx#:[id number] Sodium Chloride 0.9% 1, 100 000 ml @ 50 mls/hr IV . Q20H [facility] Rx#:[id number] Intake, IV Titration 1250 Amount Sodium Chloride 0.9% 1, 250 000 ml @ 50 mls/hr IV . Q20H [facility] Rx#:[id number] Sodium Chloride 0.9% 1, 1000 000 ml @ 999 mls/hr IV . Q1H1M [facility] Rx#:[id number] Oral 0 480 Output: Urine 555 410 Other: Voiding Method Diaper Indwelling Catheter Incontinent # Voids 1 1 # Bowel Movements 1 - Exam In general patient is alert and oriented 3 in mild distress due to continuous nausea and vomiting HEENT head normocephalic and atraumatic Neck is supple no JVD no goiter Chest exam reveals a few scattered crackles bilaterally no wheezing Cardiac exam reveals regular heart sounds no gallops no murmurs Abdomen is soft with mild diffuse tenderness no organomegaly no palpable masses no rigidity or rebound Extremity exam reveals no edema no cyanosis or clubbing 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 - Labs CBC & Chem 7: 12/29/19 04:27 12/29/19 04:27 Labs: Abnormal Lab Results - Last 24 Hours (Table) 12/28/19 12/28/19 12/28/19 Range/Units 15:38 16:34 20:12 RBC (3.80-5.40) m/uL Hgb (11.4-16.0) gm/dL Hct (34.0-46.0) % MCHC (31.0-37.0) g/dL RDW (11.5-15.5) % ABG HCO3 (21-25) mmol/L ABG Total CO2 (19-24) mmol/L Sodium (137-145) mmol/L Chloride (98-107) mmol/L BUN (7-17) mg/dL Creatinine (0.52-1.04) mg/dL Glucose (74-99) mg/dL POC Glucose (mg/dL) 109 H 114 H 190 H (75-99) mg/dL Plasma Lactic Acid Conrado (0.7-2.0) mmol/L Calcium (8.4-10.2) mg/dL AST (14-36) U/L ALT (4-34) U/L Ammonia (<30) umol/L Total Protein (6.3-8.2) g/dL Albumin (3.5-5.0) g/dL 12/28/19 12/28/19 12/28/19 Range/Units 23:12 23:13 23:13 RBC 2.86 L (3.80-5.40) m/uL Hgb 8.2 L D (11.4-16.0) gm/dL Hct 26.5 L (34.0-46.0) % MCHC 30.8 L (31.0-37.0) g/dL RDW 15.6 H (11.5-15.5) % ABG HCO3 26 H (21-25) mmol/L ABG Total CO2 27 H (19-24) mmol/L Sodium 136 L (137-145) mmol/L Chloride (98-107) mmol/L BUN 23 H (7-17) mg/dL Creatinine 1.29 H (0.52-1.04) mg/dL Glucose 161 H (74-99) mg/dL POC Glucose (mg/dL) (75-99) mg/dL Plasma Lactic Acid Conrado (0.7-2.0) mmol/L Calcium 8.1 L (8.4-10.2) mg/dL AST 225 H (14-36) U/L ALT 117 H (4-34) U/L Ammonia (<30) umol/L Total Protein 5.7 L (6.3-8.2) g/dL Albumin 2.5 L (3.5-5.0) g/dL 12/28/19 12/29/19 12/29/19 Range/Units 23:13 00:00 04:27 RBC (3.80-5.40) m/uL Hgb (11.4-16.0) gm/dL Hct (34.0-46.0) % MCHC (31.0-37.0) g/dL RDW (11.5-15.5) % ABG HCO3 (21-25) mmol/L ABG Total CO2 (19-24) mmol/L Sodium (137-145) mmol/L Chloride 112 H (98-107) mmol/L BUN 23 H (7-17) mg/dL Creatinine 1.13 H (0.52-1.04) mg/dL Glucose 29 L* (74-99) mg/dL POC Glucose (mg/dL) (75-99) mg/dL Plasma Lactic Acid Conrado 2.3 H* (0.7-2.0) mmol/L Calcium (8.4-10.2) mg/dL AST 222 H (14-36) U/L ALT 137 H (4-34) U/L Ammonia 41 H (<30) umol/L Total Protein (6.3-8.2) g/dL Albumin 3.0 L (3.5-5.0) g/dL 12/29/19 12/29/19 12/29/19 Range/Units 04:27 05:13 05:33 RBC 3.31 L (3.80-5.40) m/uL Hgb 9.6 L (11.4-16.0) gm/dL Hct 30.8 L (34.0-46.0) % MCHC (31.0-37.0) g/dL RDW 15.7 H (11.5-15.5) % ABG HCO3 (21-25) mmol/L ABG Total CO2 (19-24) mmol/L Sodium (137-145) mmol/L Chloride (98-107) mmol/L BUN (7-17) mg/dL Creatinine (0.52-1.04) mg/dL Glucose (74-99) mg/dL POC Glucose (mg/dL) 32 L 44 L (75-99) mg/dL Plasma Lactic Acid Conrado (0.7-2.0) mmol/L Calcium (8.4-10.2) mg/dL AST (14-36) U/L ALT (4-34) U/L Ammonia (<30) umol/L Total Protein (6.3-8.2) g/dL Albumin (3.5-5.0) g/dL 12/29/19 12/29/19 12/29/19 Range/Units 05:35 07:10 10:43 RBC (3.80-5.40) m/uL Hgb (11.4-16.0) gm/dL Hct (34.0-46.0) % MCHC (31.0-37.0) g/dL RDW (11.5-15.5) % ABG HCO3 (21-25) mmol/L ABG Total CO2 (19-24) mmol/L Sodium (137-145) mmol/L Chloride (98-107) mmol/L BUN (7-17) mg/dL Creatinine (0.52-1.04) mg/dL Glucose (74-99) mg/dL POC Glucose (mg/dL) 44 L 158 H 35 L (75-99) mg/dL Plasma Lactic Acid Conrado (0.7-2.0) mmol/L Calcium (8.4-10.2) mg/dL AST (14-36) U/L ALT (4-34) U/L Ammonia (<30) umol/L Total Protein (6.3-8.2) g/dL Albumin (3.5-5.0) g/dL 12/29/19 12/29/19 12/29/19 Range/Units 10:54 11:06 11:16 RBC (3.80-5.40) m/uL Hgb (11.4-16.0) gm/dL Hct (34.0-46.0) % MCHC (31.0-37.0) g/dL RDW (11.5-15.5) % ABG HCO3 (21-25) mmol/L ABG Total CO2 (19-24) mmol/L Sodium (137-145) mmol/L Chloride (98-107) mmol/L BUN (7-17) mg/dL Creatinine (0.52-1.04) mg/dL Glucose (74-99) mg/dL POC Glucose (mg/dL) 37 L 59 L 320 H (75-99) mg/dL Plasma Lactic Acid Conrado (0.7-2.0) mmol/L Calcium (8.4-10.2) mg/dL AST (14-36) U/L ALT (4-34) U/L Ammonia (<30) umol/L Total Protein (6.3-8.2) g/dL Albumin (3.5-5.0) g/dL 12/29/19 12/29/19 Range/Units 13:00 14:11 RBC (3.80-5.40) m/uL Hgb (11.4-16.0) gm/dL Hct (34.0-46.0) % MCHC (31.0-37.0) g/dL RDW (11.5-15.5) % ABG HCO3 (21-25) mmol/L ABG Total CO2 (19-24) mmol/L Sodium (137-145) mmol/L Chloride (98-107) mmol/L BUN (7-17) mg/dL Creatinine (0.52-1.04) mg/dL Glucose (74-99) mg/dL POC Glucose (mg/dL) 315 H 282 H (75-99) mg/dL Plasma Lactic Acid Conrado (0.7-2.0) mmol/L Calcium (8.4-10.2) mg/dL AST (14-36) U/L ALT (4-34) U/L Ammonia (<30) umol/L Total Protein (6.3-8.2) g/dL Albumin (3.5-5.0) g/dL Assessment and Plan Plan: 1. Severe hyperglycemia improving was insulin drip 2. Intractable nausea and vomiting, attempt to put NG tube failed to due to multiplefractures in the past, we are treating symptomatically, consultation for general surgery initiated 3. Underlying history of hypertension blood pressure is severely elevated we will use IV hydralazine when necessary 4. Underlying history of hyperlipidemia 5. Underlying history of depression and anxiety disorder 6. Previous history of stroke At this time we are treating symptomatically for nausea and vomiting Will attempt to obtain computed tomography scan of the abdomen Will continue insulin drip at this time will recheck labs in a.m.
[2019-12-29 17:05] LABS: Glucose,Whole Blood 113 mg/dL (75-99)
[2019-12-29 19:39] LABS: Hemoglobin A1C 9.1 % (4.0-6.0)
[2019-12-29] MEDS: ATORVASTATIN 20 MG TAB PO SCH ×2 (21:59→22:01)
[2019-12-29 22:05] LABS: Glucose,Whole Blood 90 mg/dL (75-99)
[2019-12-29] MEDS: INSULIN DETEMIR (LEVEMIR) 100 UNIT/ML SYR SQ SCH (22:24)
[2019-12-30 02:02] LABS: Glucose,Whole Blood 105 mg/dL (75-99)
[2019-12-30 05:08] LABS: Glucose,Whole Blood 40 mg/dL (75-99)
[2019-12-30 05:21] LABS: Glucose,Whole Blood 43 mg/dL (75-99)
[2019-12-30 05:35] LABS: Glucose,Whole Blood 95 mg/dL (75-99)
[2019-12-30 06:52] LABS: Basophils % (A) 0 %; Eosinophils # (A) 0.1 k/uL (0-0.7); Eosinophils % (A) 1 %; HCT 30.3 % (34.0-46.0); HGB 9.4 gm/dL (11.4-16.0); Hypochromasia Slight; Lymphocytes # (A) 2.6 k/uL (1.0-4.8); Lymphocytes % (A) 32 %; MCH 28.5 pg (25.0-35.0); MCV 92.1 fL (80.0-100.0); Mean Platelet Volume 7.7; Monocytes # (A) 0.5 k/uL (0-1.0); Monocytes % (A) 6 %; Neutrophils # (A) 4.6 k/uL (1.3-7.7); Neutrophils % (A) 58 %; Platelet Count 246 k/uL (150-450); RBC 3.29 m/uL (3.80-5.40); RDW 15.9 % (11.5-15.5); WBC 7.9 k/uL (3.8-10.6)
[2019-12-30 07:02] LABS: Calcium 8.5 mg/dL (8.4-10.2)
[2019-12-30 07:15] LABS: Glucose,Whole Blood 203 mg/dL (75-99)
[2019-12-30] MEDS: INSULIN ASPART (NovoLOG) 100 UNIT/ML VIAL SQ SCH ×4 (07:51→20:41)
[2019-12-30] MEDS: PANTOPRAZOLE 40 MG TABLET PO SCH ×2 (07:51→16:40)
[2019-12-30] MEDS: FAMOTIDINE 20 MG TAB PO SCH (08:25)
[2019-12-30] MEDS: ASPIRIN 81 MG PO SCH (08:25)
[2019-12-30] MEDS: FERROUS SULFATE 325 MG TAB PO SCH (08:25)
[2019-12-30] MEDS: VALPROIC ACID ORAL SOLN 250 MG/5 ML CUP PO SCH (08:26)
[2019-12-30] MEDS: DULoxetine HCL 60 MG CAPSULE.DR PO SCH (08:26)
[2019-12-30] MEDS: HEPARIN SODIUM,PORCINE 5,000 UNIT/ML 1 ML VIAL SQ SCH ×2 (08:26→20:41)
[2019-12-30] MEDS: DIVALPROEX 250 MG TABLET.DR PO SCH ×3 (08:26→22:38)
[2019-12-30] MEDS ORDERED: ERGOCALCIFEROL 50,000 UNIT CAP PO SCH (09:00)
[2019-12-30 09:06] LABS: Glucose,Whole Blood 294 mg/dL (75-99)
[2019-12-30 11:34] LABS: Glucose,Whole Blood 304 mg/dL (75-99)
--- NOTE | 2019-12-30 11:40 | P.PN ---
Subjective Progress Note Date: 12/30/19 Melva Jackson, is a 59-year-old female who presented to [facility] emergency room due to uncontrolled blood sugar, caregiver states that sugar has been up above 600 for about 3 days, she has been giving her extra insulin without ability of getting sugar under control. Patient was evaluated in the emergency room she was started on IV insulin drip and was admitted to medical floor. On the medical floor patient started developing nausea and vomiting, otherwise she denies any complaints there is no fever or chills no headache or dizziness no chest pain no shortness of breath no cough no burning was urination no frequency or urgency and no hematuria On 12/28/2019 patient was seen and examined on the medical floor she is feeling somewhat better nausea and vomiting is subsiding abdominal pain improving there is no fever or chills no headache or dizziness no chest pain no shortness of breath no cough no nausea or vomiting no abdominal pain no diarrhea no burning was urination no frequency or urgency and no hematuria, patient is improving insulin drip was discontinued and patient was restarted on her home insulin dose. On 12/29/2019 patient was seen and examined in the ICU she is alert and oriented 3 in no apparent distress last night patient had an episode of hypotension likely related to dehydration due to nausea and vomiting A team was called, and patient was transferred to ICU she was given IV fluid and her blood pressure is up to normal range today there was no need to use any vasopressors, today patient is feeling well she had episodes of hypoglycemia this morning she was started on D5W and her sugar is in normal range at this time otherwise she denies any complaints there is no fever or chills no headache or dizziness no chest pain no shortness of breath no cough no nausea or vomiting no abdominal pain no diarrhea no burning with urination no frequency or urgency and no hematuria On 12/30/2019 patient was seen and examined on the medical floor she is alert and oriented 3 in no apparent distress there is no fever or chills no headache or dizziness no chest pain no shortness of breath no cough no nausea or vomiting no abdominal pain no diarrhea no burning with urination no frequency or urgency and no hematuria she is tolerating diet well last night she had episodes of hypoglycemia which resolved this time will continue to monitor glucose levels and adjust medications and insulin as needed Objective - Vital Signs Vital signs: Vital Signs Temp 97.4 F L 12/30/19 05:00 Pulse 94 12/30/19 05:00 Resp 18 12/30/19 05:00 BP 177/81 12/30/19 05:00 Pulse Ox 100 12/30/19 05:00 Intake & Output 12/29/19 12/30/19 12/30/19 18:59 06:59 18:59 Intake Total 250 660 Output Total 685 2500 Balance -435 -1840 Weight 54 kg Intake: IV 250 160 Dextrose 5% in Water 1, 150 000 ml @ 50 mls/hr IV . Q20H [facility] Rx#:[id number] Sodium Chloride 0.9% 1, 100 160 000 ml @ 50 mls/hr IV . Q20H [facility] Rx#:[id number] Oral 500 Output: Urine 685 2500 Other: Voiding Method Indwelling Catheter Indwelling Catheter Indwelling Catheter - Exam In general patient is alert and oriented 3 in mild distress due to continuous nausea and vomiting HEENT head normocephalic and atraumatic Neck is supple no JVD no goiter Chest exam reveals a few scattered crackles bilaterally no wheezing Cardiac exam reveals regular heart sounds no gallops no murmurs Abdomen is soft with mild diffuse tenderness no organomegaly no palpable masses no rigidity or rebound Extremity exam reveals no edema no cyanosis or clubbing 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 - Labs CBC & Chem 7: 12/30/19 06:21 12/30/19 06:21 Labs: Abnormal Lab Results - Last 24 Hours (Table) 12/29/19 12/29/19 12/29/19 Range/Units 04:27 13:00 14:11 RBC (3.80-5.40) m/uL Hgb (11.4-16.0) gm/dL Hct (34.0-46.0) % RDW (11.5-15.5) % Glucose (74-99) mg/dL POC Glucose (mg/dL) 315 H 282 H (75-99) mg/dL Hemoglobin A1c 9.1 H (4.0-6.0) % 12/29/19 12/30/19 12/30/19 Range/Units 17:03 01:54 05:06 RBC (3.80-5.40) m/uL Hgb (11.4-16.0) gm/dL Hct (34.0-46.0) % RDW (11.5-15.5) % Glucose (74-99) mg/dL POC Glucose (mg/dL) 113 H 105 H 40 L (75-99) mg/dL Hemoglobin A1c (4.0-6.0) % 12/30/19 12/30/19 12/30/19 Range/Units 05:20 06:21 06:21 RBC 3.29 L (3.80-5.40) m/uL Hgb 9.4 L (11.4-16.0) gm/dL Hct 30.3 L (34.0-46.0) % RDW 15.9 H (11.5-15.5) % Glucose 157 H (74-99) mg/dL POC Glucose (mg/dL) 43 L (75-99) mg/dL Hemoglobin A1c (4.0-6.0) % 12/30/19 12/30/19 12/30/19 Range/Units 07:14 09:01 11:33 RBC (3.80-5.40) m/uL Hgb (11.4-16.0) gm/dL Hct (34.0-46.0) % RDW (11.5-15.5) % Glucose (74-99) mg/dL POC Glucose (mg/dL) 203 H 294 H 304 H (75-99) mg/dL Hemoglobin A1c (4.0-6.0) % Assessment and Plan Plan: 1. Severe hyperglycemia improving was insulin drip 2. Intractable nausea and vomiting, attempt to put NG tube failed to due to multiplefractures in the past, we are treating symptomatically, consultation for general surgery initiated 3. Underlying history of hypertension blood pressure is severely elevated we will use IV hydralazine when necessary 4. Underlying history of hyperlipidemia 5. Underlying history of depression and anxiety disorder 6. Previous history of stroke At this time we are treating symptomatically for nausea and vomiting Will attempt to obtain computed tomography scan of the abdomen Will continue insulin drip at this time will recheck labs in a.m.
[2019-12-30 17:21] LABS: Glucose,Whole Blood 90 mg/dL (75-99)
[2019-12-30 20:01] LABS: Glucose,Whole Blood 317 mg/dL (75-99)
[2019-12-30] MEDS: INSULIN DETEMIR (LEVEMIR) 100 UNIT/ML SYR SQ SCH (20:41)
[2019-12-30] MEDS: ATORVASTATIN 20 MG TAB PO SCH (20:41)
[2019-12-31 02:04] LABS: Glucose,Whole Blood 448 mg/dL (75-99)
[2019-12-31] MEDS ORDERED: INSULIN ASPART (NovoLOG) 100 UNIT/ML VIAL SQ ONE ×2 (02:46→21:30)
[2019-12-31 07:14] LABS: Glucose,Whole Blood 308 mg/dL (75-99)
[2019-12-31 07:25] LABS: Albumin 3.2 g/dL (3.5-5.0); Calcium 8.7 mg/dL (8.4-10.2); Potassium 5.1 mmol/L (3.5-5.1); Total Bilirubin 0.3 mg/dL (0.2-1.3); Total Protein 6.8 g/dL (6.3-8.2)
[2019-12-31 07:31] LABS: Basophils % (A) 1 %; Eosinophils # (A) 0.1 k/uL (0-0.7); Eosinophils % (A) 1 %; HCT 32.5 % (34.0-46.0); HGB 10.2 gm/dL (11.4-16.0); Hypochromasia Slight; Lymphocytes % (A) 50 %; MCH 28.9 pg (25.0-35.0); MCHC 31.2 g/dL (31.0-37.0); MCV 92.4 fL (80.0-100.0); Mean Platelet Volume 7.6; Monocytes # (A) 0.4 k/uL (0-1.0); Monocytes % (A) 6 %; Neutrophils # (A) 2.4 k/uL (1.3-7.7); Neutrophils % (A) 40 %; Platelet Count 246 k/uL (150-450); RBC 3.52 m/uL (3.80-5.40); RDW 15.7 % (11.5-15.5); WBC 5.9 k/uL (3.8-10.6)
[2019-12-31] MEDS: ASPIRIN 81 MG PO SCH (07:48)
[2019-12-31] MEDS: DULoxetine HCL 60 MG CAPSULE.DR PO SCH (07:48)
[2019-12-31] MEDS: VALPROIC ACID ORAL SOLN 250 MG/5 ML CUP PO SCH (07:48)
[2019-12-31] MEDS: ONDANSETRON 4 MG/2 ML VIAL IVP PRN (07:48)
[2019-12-31] MEDS: HEPARIN SODIUM,PORCINE 5,000 UNIT/ML 1 ML VIAL SQ SCH ×2 (07:48→22:06)
[2019-12-31] MEDS: INSULIN ASPART (NovoLOG) 100 UNIT/ML VIAL SQ SCH ×4 (07:49→21:31)
[2019-12-31] MEDS: FERROUS SULFATE 325 MG TAB PO SCH (07:49)
[2019-12-31] MEDS: PANTOPRAZOLE 40 MG TABLET PO SCH ×2 (07:49→17:21)
[2019-12-31] MEDS: DIVALPROEX 250 MG TABLET.DR PO SCH ×3 (07:49→22:06)
[2019-12-31] MEDS: FAMOTIDINE 20 MG TAB PO SCH (07:49)
[2019-12-31 11:25] LABS: Glucose,Whole Blood 285 mg/dL (75-99)
--- NOTE | 2019-12-31 12:57 | P.PN ---
Subjective Progress Note Date: 12/31/19 Melva Jackson, is a 59-year-old female who presented to [facility] emergency room due to uncontrolled blood sugar, caregiver states that sugar has been up above 600 for about 3 days, she has been giving her extra insulin without ability of getting sugar under control. Patient was evaluated in the emergency room she was started on IV insulin drip and was admitted to medical floor. On the medical floor patient started developing nausea and vomiting, otherwise she denies any complaints there is no fever or chills no headache or dizziness no chest pain no shortness of breath no cough no burning was urination no frequency or urgency and no hematuria On 12/28/2019 patient was seen and examined on the medical floor she is feeling somewhat better nausea and vomiting is subsiding abdominal pain improving there is no fever or chills no headache or dizziness no chest pain no shortness of breath no cough no nausea or vomiting no abdominal pain no diarrhea no burning was urination no frequency or urgency and no hematuria, patient is improving insulin drip was discontinued and patient was restarted on her home insulin dose. On 12/29/2019 patient was seen and examined in the ICU she is alert and oriented 3 in no apparent distress last night patient had an episode of hypotension likely related to dehydration due to nausea and vomiting A team was called, and patient was transferred to ICU she was given IV fluid and her blood pressure is up to normal range today there was no need to use any vasopressors, today patient is feeling well she had episodes of hypoglycemia this morning she was started on D5W and her sugar is in normal range at this time otherwise she denies any complaints there is no fever or chills no headache or dizziness no chest pain no shortness of breath no cough no nausea or vomiting no abdominal pain no diarrhea no burning with urination no frequency or urgency and no hematuria On 12/30/2019 patient was seen and examined on the medical floor she is alert and oriented 3 in no apparent distress there is no fever or chills no headache or dizziness no chest pain no shortness of breath no cough no nausea or vomiting no abdominal pain no diarrhea no burning with urination no frequency or urgency and no hematuria she is tolerating diet well last night she had episodes of hypoglycemia which resolved this time will continue to monitor glucose levels and adjust medications and insulin as needed On 12/31/2019 patient was seen and examined on the medical floor she is alert and oriented 3 in no apparent distress there is no fever or chills no headache or dizziness no chest pain no shortness of breath no cough no nausea or vomiting no abdominal pain no diarrhea no burning with urination no frequency or urgency and no hematuria, glucose level is wildly fluctuating, at this time we are counting insulin requirement, will discontinue Daigle catheter, possible discharge to home tomorrow Objective - Vital Signs Vital signs: Vital Signs Temp 98.2 F 12/31/19 11:23 Pulse 96 12/31/19 11:23 Resp 17 12/31/19 11:23 BP 129/89 12/31/19 11:23 Pulse Ox 100 12/31/19 11:23 Intake & Output 12/30/19 12/31/19 12/31/19 18:59 06:59 18:59 Intake Total 600 700 Output Total 2600 Balance 600 -1900 Weight 54 kg Intake: Oral 600 700 Output: Urine 2600 Uretheral (Daigle) 2600 Other: Voiding Method Indwelling Catheter Indwelling Catheter - Exam In general patient is alert and oriented 3 in mild distress due to continuous nausea and vomiting HEENT head normocephalic and atraumatic Neck is supple no JVD no goiter Chest exam reveals a few scattered crackles bilaterally no wheezing Cardiac exam reveals regular heart sounds no gallops no murmurs Abdomen is soft with mild diffuse tenderness no organomegaly no palpable masses no rigidity or rebound Extremity exam reveals no edema no cyanosis or clubbing 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 - Labs CBC & Chem 7: 12/31/19 06:25 12/31/19 06:25 Labs: Abnormal Lab Results - Last 24 Hours (Table) 12/30/19 12/31/19 12/31/19 Range/Units 20:00 02:00 06:25 RBC 3.52 L (3.80-5.40) m/uL Hgb 10.2 L (11.4-16.0) gm/dL Hct 32.5 L (34.0-46.0) % RDW 15.7 H (11.5-15.5) % Sodium (137-145) mmol/L BUN (7-17) mg/dL Creatinine (0.52-1.04) mg/dL Glucose (74-99) mg/dL POC Glucose (mg/dL) 317 H 448 H (75-99) mg/dL ALT (4-34) U/L Albumin (3.5-5.0) g/dL 12/31/19 12/31/19 12/31/19 Range/Units 06:25 07:14 11:24 RBC (3.80-5.40) m/uL Hgb (11.4-16.0) gm/dL Hct (34.0-46.0) % RDW (11.5-15.5) % Sodium 136 L (137-145) mmol/L BUN 21 H (7-17) mg/dL Creatinine 1.07 H (0.52-1.04) mg/dL Glucose 309 H (74-99) mg/dL POC Glucose (mg/dL) 308 H 285 H (75-99) mg/dL ALT 58 H (4-34) U/L Albumin 3.2 L (3.5-5.0) g/dL Assessment and Plan Plan: 1. Severe hyperglycemia improving was insulin drip 2. Intractable nausea and vomiting, attempt to put NG tube failed to due to multiplefractures in the past, we are treating symptomatically, consultation for general surgery initiated 3. Underlying history of hypertension blood pressure is severely elevated we w ill use IV hydralazine when necessary 4. Underlying history of hyperlipidemia 5. Underlying history of depression and anxiety disorder 6. Previous history of stroke Continue with Levemir 20 units once daily at bedtime Continue with insulin sliding scale before meals, we are counting insulin requirement glucose level is wildly fluctuating Possible discharge to home tomorrow if stable
[2019-12-31 17:21] LABS: Glucose,Whole Blood >600 mg/dL (75-99)
[2019-12-31 17:23] LABS: Glucose,Whole Blood >600 mg/dL (75-99)
[2019-12-31 20:02] LABS: Glucose,Whole Blood >600 mg/dL (75-99)
[2019-12-31] MEDS: INSULIN DETEMIR (LEVEMIR) 100 UNIT/ML SYR SQ SCH (22:06)
[2020-01-01 02:30] LABS: Glucose,Whole Blood 64 mg/dL (75-99)
[2020-01-01 02:55] LABS: Glucose,Whole Blood 82 mg/dL (75-99)
[2020-01-01 07:05] LABS: Glucose,Whole Blood 71 mg/dL (75-99)
[2020-01-01] MEDS: INSULIN ASPART (NovoLOG) 100 UNIT/ML VIAL SQ SCH ×4 (08:09→21:07)
[2020-01-01] MEDS: PANTOPRAZOLE 40 MG TABLET PO SCH ×2 (09:34→17:40)
[2020-01-01] MEDS: VALPROIC ACID ORAL SOLN 250 MG/5 ML CUP PO SCH (10:08)
[2020-01-01] MEDS: ASPIRIN 81 MG PO SCH (10:09)
[2020-01-01] MEDS: FAMOTIDINE 20 MG TAB PO SCH (10:11)
[2020-01-01] MEDS: FERROUS SULFATE 325 MG TAB PO SCH (10:11)
[2020-01-01] MEDS: DULoxetine HCL 60 MG CAPSULE.DR PO SCH (10:12)
[2020-01-01] MEDS: DIVALPROEX 250 MG TABLET.DR PO SCH ×3 (10:13→21:08)
[2020-01-01] MEDS: HEPARIN SODIUM,PORCINE 5,000 UNIT/ML 1 ML VIAL SQ SCH ×2 (10:13→21:07)
[2020-01-01 10:40] LABS: Glucose,Whole Blood 189 mg/dL (75-99)
[2020-01-01 11:23] LABS: Glucose,Whole Blood 191 mg/dL (75-99)
[2020-01-01 13:09] VITALS: BMI 21.7
--- NOTE | 2020-01-01 13:55 | CDI ---
Documentation Clarification Form Date: 01/02/2020 01:45:12 PM From: Ruma Cristina RN, CCDS Admit Date: 12/26/2019 04:09:00 PM Patient Name: Melva Jackson Visit Number: [id number] ATTENTION: The Clinical Documentation Specialists (CDI) and [facility] Coding Staff appreciate your assistance in clarifying documentation. Please respond to the clarification below the line at the bottom and electronically sign. The CDI & [facility] Coding staff will review the response and follow-up if needed. Please note: Queries are made part of the Legal Health Record. If you have any questions, please contact the author of this message via ITS. Dr. Sherlyn Chen Anemia is documented in the PMH, pt is noted to have low Hgb on current admission. Please provide specificity. History/Risk Factors: Renal failure, anemia, Multiple Diabetic Complications, CVA with Left sided paralysis Clinical indicators: Hemoglobin: 10.5/10.2/8.2/9.6/9.4 Hematocrit: 34.4/32.2/26.5/30.8/30.3 Treatment: Feosol 325 mg PO QD 12/25 1 L 0.9% NS IVF Bolus 12/27 1L 0.9% NS IVF Bolus In order to capture the severity of condition, please clarify the type of anemia and etiology if known. Chronic blood loss anemia Iron deficiency anemia Anemia due to malignancy Nutritional anemia Anemia of chronic disease Unable to determine Other, please specify (Last Form Revision: July 2019) Anemia of chronic disease MTDD
--- NOTE | 2020-01-01 14:09 | CDI ---
Documentation Clarification Form Date: 01/02/2020 01:45:12 PM From: Ruma Cristina RN, CCDS Admit Date: 12/26/2019 04:09:00 PM Patient Name: Melva Jackson Visit Number: [id number] ATTENTION: The Clinical Documentation Specialists (CDI) and [facility] Coding Staff appreciate your assistance in clarifying documentation. Please respond to the clarification below the line at the bottom and electronically sign. The CDI & [facility] Coding staff will review the response and follow-up if needed. Please note: Queries are made part of the Legal Health Record. If you have any questions, please contact the author of this message via ITS. Dr. Sherlyn Chen Anemia is documented in the PMH, pt is noted to have low Hgb on current admission. Please provide specificity. History/Risk Factors: Renal failure, anemia, Multiple Diabetic Complications, CVA with Left sided paralysis Clinical indicators: Hemoglobin: 10.5/10.2/8.2/9.6/9.4 Hematocrit: 34.4/32.2/26.5/30.8/30.3 Treatment: Feosol 325 mg PO QD 12/25 1 L 0.9% NS IVF Bolus 12/27 1L 0.9% NS IVF Bolus In order to capture the severity of condition, please clarify the type of anemia and etiology if known. Chronic blood loss anemia Iron deficiency anemia Anemia due to malignancy Nutritional anemia Anemia of chronic disease Unable to determine Other, please specify (Last Form Revision: July 2019) Anemia of chronic disease MTDD
[2020-01-01 17:24] LABS: Glucose,Whole Blood 329 mg/dL (75-99)
[2020-01-01 19:58] LABS: Glucose,Whole Blood 225 mg/dL (75-99)
[2020-01-01] MEDS: ATORVASTATIN 20 MG TAB PO SCH (21:07)
[2020-01-01] MEDS: INSULIN DETEMIR (LEVEMIR) 100 UNIT/ML SYR SQ SCH (21:07)
[2020-01-02 01:56] LABS: Glucose,Whole Blood 47 mg/dL (75-99)
[2020-01-02 02:30] LABS: Glucose,Whole Blood 103 mg/dL (75-99)
[2020-01-02 06:22] LABS: Glucose,Whole Blood 38 mg/dL (75-99)
[2020-01-02] MEDS ORDERED: DEXTROSE 50% SYRINGE 50 ML IVP ONE (06:22)
[2020-01-02 06:45] LABS: Glucose,Whole Blood 190 mg/dL (75-99)
[2020-01-02 07:03] LABS: Glucose,Whole Blood 193 mg/dL (75-99)
[2020-01-02 08:14] LABS: Albumin 3.2 g/dL (3.5-5.0); Calcium 8.5 mg/dL (8.4-10.2); Potassium 4.6 mmol/L (3.5-5.1); Total Bilirubin 0.3 mg/dL (0.2-1.3); Total Protein 6.7 g/dL (6.3-8.2)
[2020-01-02] MEDS: FAMOTIDINE 20 MG TAB PO SCH (08:32)
[2020-01-02] MEDS: PANTOPRAZOLE 40 MG TABLET PO SCH ×2 (08:32→17:28)
[2020-01-02] MEDS: ASPIRIN 81 MG PO SCH (08:32)
[2020-01-02] MEDS: DULoxetine HCL 60 MG CAPSULE.DR PO SCH (08:35)
[2020-01-02] MEDS: HEPARIN SODIUM,PORCINE 5,000 UNIT/ML 1 ML VIAL SQ SCH ×2 (08:36→20:43)
[2020-01-02] MEDS: FERROUS SULFATE 325 MG TAB PO SCH (08:36)
[2020-01-02] MEDS: VALPROIC ACID ORAL SOLN 250 MG/5 ML CUP PO SCH (08:37)
[2020-01-02 08:38] LABS: Basophils % (A) 0 %; Eosinophils # (A) 0.1 k/uL (0-0.7); Eosinophils % (A) 1 %; HCT 32.9 % (34.0-46.0); HGB 10.1 gm/dL (11.4-16.0); Lymphocytes # (A) 2.4 k/uL (1.0-4.8); Lymphocytes % (A) 40 %; MCH 28.4 pg (25.0-35.0); MCHC 30.7 g/dL (31.0-37.0); MCV 92.5 fL (80.0-100.0); Mean Platelet Volume 7.9; Monocytes # (A) 0.3 k/uL (0-1.0); Monocytes % (A) 5 %; Neutrophils # (A) 3.1 k/uL (1.3-7.7); Neutrophils % (A) 52 %; Platelet Count 238 k/uL (150-450); RBC 3.55 m/uL (3.80-5.40); RDW 15.8 % (11.5-15.5)
[2020-01-02] MEDS: DIVALPROEX 250 MG TABLET.DR PO SCH ×3 (08:38→20:43)
[2020-01-02] MEDS: INSULIN ASPART (NovoLOG) 100 UNIT/ML VIAL SQ SCH ×4 (09:28→20:44)
[2020-01-02 11:04] LABS: Glucose,Whole Blood 89 mg/dL (75-99)
[2020-01-02 17:18] LABS: Glucose,Whole Blood 372 mg/dL (75-99)
--- NOTE | 2020-01-02 17:42 | P.PN ---
Subjective Progress Note Date: 01/01/20 Melva Jackson, is a 59-year-old female who presented to [facility] emergency room due to uncontrolled blood sugar, caregiver states that sugar has been up above 600 for about 3 days, she has been giving her extra insulin without ability of getting sugar under control. Patient was evaluated in the emergency room she was started on IV insulin drip and was admitted to medical floor. On the medical floor patient started developing nausea and vomiting, otherwise she denies any complaints there is no fever or chills no headache or dizziness no chest pain no shortness of breath no cough no burning was urination no frequency or urgency and no hematuria On 12/28/2019 patient was seen and examined on the medical floor she is feeling somewhat better nausea and vomiting is subsiding abdominal pain improving there is no fever or chills no headache or dizziness no chest pain no shortness of breath no cough no nausea or vomiting no abdominal pain no diarrhea no burning was urination no frequency or urgency and no hematuria, patient is improving insulin drip was discontinued and patient was restarted on her home insulin dose. On 12/29/2019 patient was seen and examined in the ICU she is alert and oriented 3 in no apparent distress last night patient had an episode of hypotension likely related to dehydration due to nausea and vomiting A team was called, and patient was transferred to ICU she was given IV fluid and her blood pressure is up to normal range today there was no need to use any vasopressors, today patient is feeling well she had episodes of hypoglycemia this morning she was started on D5W and her sugar is in normal range at this time otherwise she denies any complaints there is no fever or chills no headache or dizziness no chest pain no shortness of breath no cough no nausea or vomiting no abdominal pain no diarrhea no burning with urination no frequency or urgency and no hematuria On 12/30/2019 patient was seen and examined on the medical floor she is alert and oriented 3 in no apparent distress there is no fever or chills no headache or dizziness no chest pain no shortness of breath no cough no nausea or vomiting no abdominal pain no diarrhea no burning with urination no frequency or urgency and no hematuria she is tolerating diet well last night she had episodes of hypoglycemia which resolved this time will continue to monitor glucose levels and adjust medications and insulin as needed On 12/31/2019 patient was seen and examined on the medical floor she is alert and oriented 3 in no apparent distress there is no fever or chills no headache or dizziness no chest pain no shortness of breath no cough no nausea or vomiting no abdominal pain no diarrhea no burning with urination no frequency or urgency and no hematuria, glucose level is wildly fluctuating, at this time we are counting insulin requirement, will discontinue Daigle catheter, possible discharge to home tomorrow On 01/01/2020 patient was seen and examined on the medical floor she is alert and oriented 3 in no apparent distress she had hypoglycemia this morning other mckeon no complaints there is no fever or chills no headache or dizziness no chest pain no shortness of breath no cough no nausea or vomiting no abdominal pain no diarrhea no burning with urination no frequency or urgency no hematuria Objective - Vital Signs Vital signs: Vital Signs Temp 97.8 F 01/01/20 11:55 Pulse 89 01/01/20 11:55 Resp 21 01/01/20 11:55 BP 159/72 01/01/20 11:55 Pulse Ox 96 01/01/20 11:55 Intake & Output 12/31/19 01/01/20 01/01/20 18:59 06:59 18:59 Intake Total 580 Output Total 675 Balance -675 580 Weight 54 kg 54 kg Intake: Oral 580 Output: Urine 675 Uretheral (Daigle) 675 Other: Voiding Method Incontinent Diaper Incontinent # Voids 1 1 1 # Bowel Movements 0 2 - Exam In general patient is alert and oriented 3 in mild distress due to continuous nausea and vomiting HEENT head normocephalic and atraumatic Neck is supple no JVD no goiter Chest exam reveals a few scattered crackles bilaterally no wheezing Cardiac exam reveals regular heart sounds no gallops no murmurs Abdomen is soft with mild diffuse tenderness no organomegaly no palpable masses no rigidity or rebound Extremity exam reveals no edema no cyanosis or clubbing 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 Severe hyperglycemia improving was insulin drip 2. Intractable nausea and vomiting, attempt to put NG tube failed to due to multiplefractures in the past, we are treating symptomatically, consultation for general surgery initiated 3. Underlying history of hypertension blood pressure is severely elevated we will use IV hydralazine when necessary 4. Underlying history of hyperlipidemia 5. Underlying history of depression and anxiety disorder 6. Previous history of stroke Continue with Levemir 20 units once daily at bedtime Continue with insulin sliding scale before meals, we are counting insulin requirement glucose level is wildly fluctuating Possible discharge to home tomorrow if stable
--- NOTE | 2020-01-02 17:44 | P.PN ---
Subjective Progress Note Date: 01/02/20 Melva Jackson, is a 59-year-old female who presented to [facility] emergency room due to uncontrolled blood sugar, caregiver states that sugar has been up above 600 for about 3 days, she has been giving her extra insulin without ability of getting sugar under control. Patient was evaluated in the emergency room she was started on IV insulin drip and was admitted to medical floor. On the medical floor patient started developing nausea and vomiting, otherwise she denies any complaints there is no fever or chills no headache or dizziness no chest pain no shortness of breath no cough no burning was urination no frequency or urgency and no hematuria On 12/28/2019 patient was seen and examined on the medical floor she is feeling somewhat better nausea and vomiting is subsiding abdominal pain improving there is no fever or chills no headache or dizziness no chest pain no shortness of breath no cough no nausea or vomiting no abdominal pain no diarrhea no burning was urination no frequency or urgency and no hematuria, patient is improving insulin drip was discontinued and patient was restarted on her home insulin dose. On 12/29/2019 patient was seen and examined in the ICU she is alert and oriented 3 in no apparent distress last night patient had an episode of hypotension likely related to dehydration due to nausea and vomiting A team was called, and patient was transferred to ICU she was given IV fluid and her blood pressure is up to normal range today there was no need to use any vasopressors, today patient is feeling well she had episodes of hypoglycemia this morning she was started on D5W and her sugar is in normal range at this time otherwise she denies any complaints there is no fever or chills no headache or dizziness no chest pain no shortness of breath no cough no nausea or vomiting no abdominal pain no diarrhea no burning with urination no frequency or urgency and no hematuria On 12/30/2019 patient was seen and examined on the medical floor she is alert and oriented 3 in no apparent distress there is no fever or chills no headache or dizziness no chest pain no shortness of breath no cough no nausea or vomiting no abdominal pain no diarrhea no burning with urination no frequency or urgency and no hematuria she is tolerating diet well last night she had episodes of hypoglycemia which resolved this time will continue to monitor glucose levels and adjust medications and insulin as needed On 12/31/2019 patient was seen and examined on the medical floor she is alert and oriented 3 in no apparent distress there is no fever or chills no headache or dizziness no chest pain no shortness of breath no cough no nausea or vomiting no abdominal pain no diarrhea no burning with urination no frequency or urgency and no hematuria, glucose level is wildly fluctuating, at this time we are counting insulin requirement, will discontinue Daigle catheter, possible discharge to home tomorrow On 01/01/2020 patient was seen and examined on the medical floor she is alert and oriented 3 in no apparent distress she had hypoglycemia this morning other mckeon no complaints there is no fever or chills no headache or dizziness no chest pain no shortness of breath no cough no nausea or vomiting no abdominal pain no diarrhea no burning with urination no frequency or urgency no hematuria. On 01/02/2020 patient was seen and examined on the medical floor she had another episode of hypoglycemia this morning, otherwise there is no complaints there is no fever or chills no headache or dizziness no chest pain no shortness of breath no cough no nausea or vomiting no abdominal pain no diarrhea no burning with urination no frequency or urgency and no hematuria time will decrease Levemir to 16 units at bedtime continue to monitor glucose level and adjust medications as needed Objective - Vital Signs Vital signs: Vital Signs Temp 98.1 F 01/02/20 13:35 Pulse 109 H 01/02/20 13:35 Resp 19 01/02/20 13:35 BP 98/52 01/02/20 13:35 Pulse Ox 99 01/02/20 13:35 Intake & Output 01/01/20 01/02/20 01/02/20 18:59 06:59 18:59 Intake Total 290 Balance 290 Weight 54 kg Intake: Oral 290 Other: Voiding Method Diaper Diaper Incontinent Incontinent # Voids 1 1 1 # Bowel Movements 2 1 - Exam In general patient is alert and oriented 3 in mild distress due to continuous nausea and vomiting HEENT head normocephalic and atraumatic Neck is supple no JVD no goiter Chest exam reveals a few scattered crackles bilaterally no wheezing Cardiac exam reveals regular heart sounds no gallops no murmurs Abdomen is soft with mild diffuse tenderness no organomegaly no palpable masses no rigidity or rebound Extremity exam reveals no edema no cyanosis or clubbing 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 - Labs CBC & Chem 7: 01/02/20 07:10 01/02/20 07:10 Labs: Abnormal Lab Results - Last 24 Hours (Table) 01/01/20 01/02/20 01/02/20 Range/Units 19:56 01:54 02:29 RBC (3.80-5.40) m/uL Hgb (11.4-16.0) gm/dL Hct (34.0-46.0) % MCHC (31.0-37.0) g/dL RDW (11.5-15.5) % BUN (7-17) mg/dL Glucose (74-99) mg/dL POC Glucose (mg/dL) 225 H 47 L 103 H (75-99) mg/dL Albumin (3.5-5.0) g/dL 01/02/20 01/02/20 01/02/20 Range/Units 06:21 06:44 07:00 RBC (3.80-5.40) m/uL Hgb (11.4-16.0) gm/dL Hct (34.0-46.0) % MCHC (31.0-37.0) g/dL RDW (11.5-15.5) % BUN (7-17) mg/dL Glucose (74-99) mg/dL POC Glucose (mg/dL) 38 L 190 H 193 H (75-99) mg/dL Albumin (3.5-5.0) g/dL 01/02/20 01/02/20 01/02/20 Range/Units 07:10 07:10 17:15 RBC 3.55 L (3.80-5.40) m/uL Hgb 10.1 L (11.4-16.0) gm/dL Hct 32.9 L (34.0-46.0) % MCHC 30.7 L (31.0-37.0) g/dL RDW 15.8 H (11.5-15.5) % BUN 19 H (7-17) mg/dL Glucose 145 H (74-99) mg/dL POC Glucose (mg/dL) 372 H (75-99) mg/dL Albumin 3.2 L (3.5-5.0) g/dL Assessment and Plan Plan: 1. Severe hyperglycemia improving was insulin drip 2. Intractable nausea and vomiting, attempt to put NG tube failed to due to multiplefractures in the past, we are treating symptomatically, consultation for general surgery initiated 3. Underlying history of hypertension blood pressure is severely elevated we will use IV hydralazine when necessary 4. Underlying history of hyperlipidemia 5. Underlying history of depression and anxiety disorder 6. Previous history of stroke Continue with Levemir 20 units once daily at bedtime Continue with insulin sliding scale before meals, we are counting insulin requirement glucose level is wildly fluctuating Possible discharge to home tomorrow if stable
[2020-01-02 19:44] LABS: Glucose,Whole Blood 305 mg/dL (75-99)
[2020-01-02 20:10] LABS: Glucose,Whole Blood 292 mg/dL (75-99)
[2020-01-02] MEDS: ATORVASTATIN 20 MG TAB PO SCH (20:43)
[2020-01-02] MEDS ORDERED: INSULIN DETEMIR (LEVEMIR) 100 UNIT/ML SYR SQ SCH (21:00)
[2020-01-02 23:47] LABS: Glucose,Whole Blood 117 mg/dL (75-99)
[2020-01-03 02:41] LABS: Glucose,Whole Blood 216 mg/dL (75-99)
[2020-01-03 06:57] LABS: Glucose,Whole Blood 177 mg/dL (75-99)
[2020-01-03] MEDS: INSULIN ASPART (NovoLOG) 100 UNIT/ML VIAL SQ SCH ×2 (08:10→12:52)
[2020-01-03] MEDS: PANTOPRAZOLE 40 MG TABLET PO SCH (08:11)
[2020-01-03] MEDS: FAMOTIDINE 20 MG TAB PO SCH (09:58)
[2020-01-03] MEDS: DIVALPROEX 250 MG TABLET.DR PO SCH (09:58)
[2020-01-03] MEDS: ASPIRIN 81 MG PO SCH (09:58)
[2020-01-03] MEDS: FERROUS SULFATE 325 MG TAB PO SCH (09:59)
[2020-01-03] MEDS: HEPARIN SODIUM,PORCINE 5,000 UNIT/ML 1 ML VIAL SQ SCH (09:59)
[2020-01-03] MEDS: DULoxetine HCL 60 MG CAPSULE.DR PO SCH (09:59)
[2020-01-03] MEDS: VALPROIC ACID ORAL SOLN 250 MG/5 ML CUP PO SCH (09:59)
[2020-01-03 11:06] LABS: Glucose,Whole Blood 153 mg/dL (75-99)
--- NOTE | 2020-01-03 13:52 | P.DS ---
Providers Date of admission: 12/26/19 16:09 Expected date of discharge: 01/03/20 Attending physician: Sherlyn Chen Consults: 12/28/19 23:14 Consult Physician Routine Consulting Provider: Darius Kearns Consult Reason/Comments: low bp, ateam, icu tx Do you want consulting provider notified?: Yes Primary care physician: Sherlyn Chen [facility] Course: Diagnoses on discharge: 1. Severe hyperglycemia improving was insulin drip 2. Intractable nausea and vomiting, attempt to put NG tube failed to due to multiplefractures in the past, we are treating symptomatically, consultation for general surgery initiated 3. Underlying history of hypertension blood pressure is severely elevated we will use IV hydralazine when necessary 4. Underlying history of hyperlipidemia 5. Underlying history of depression and anxiety disorder 6. Previous history of stroke 7. Multiple episodes of hypoglycemia Hospital course: Melva Jackson, is a 59-year-old female who presented to [facility] emergency room due to uncontrolled blood sugar, caregiver states that sugar has been up above 600 for about 3 days, she has been giving her extra insulin without ability of getting sugar under control. Patient was evaluated in the emergency room she was started on IV insulin drip and was admitted to medical floor. On the medical floor patient started developing nausea and vomiting, otherwise she denies any complaints there is no fever or chills no headache or dizziness no chest pain no shortness of breath no cough no burning was urination no frequency or urgency and no hematuria On 12/28/2019 patient was seen and examined on the medical floor she is feeling somewhat better nausea and vomiting is subsiding abdominal pain improving there is no fever or chills no headache or dizziness no chest pain no shortness of breath no cough no nausea or vomiting no abdominal pain no diarrhea no burning was urination no frequency or urgency and no hematuria, patient is improving insulin drip was discontinued and patient was restarted on her home insulin dose. On 12/29/2019 patient was seen and examined in the ICU she is alert and oriented 3 in no apparent distress last night patient had an episode of hypotension likely related to dehydration due to nausea and vomiting A team was called, and patient was transferred to ICU she was given IV fluid and her blood pressure is up to normal range today there was no need to use any vasopressors, today patient is feeling well she had episodes of hypoglycemia this morning she was started on D5W and her sugar is in normal range at this time otherwise she denies any complaints there is no fever or chills no headache or dizziness no chest pain no shortness of breath no cough no nausea or vomiting no abdominal pain no diarrhea no burning with urination no frequency or urgency and no hematuria On 12/30/2019 patient was seen and examined on the medical floor she is alert and oriented 3 in no apparent distress there is no fever or chills no headache or dizziness no chest pain no shortness of breath no cough no nausea or vomiting no abdominal pain no diarrhea no burning with urination no frequency or urgency and no hematuria she is tolerating diet well last night she had episodes of hypoglycemia which resolved this time will continue to monitor glucose levels and adjust medications and insulin as needed On 12/31/2019 patient was seen and examined on the medical floor she is alert and oriented 3 in no apparent distress there is no fever or chills no headache or dizziness no chest pain no shortness of breath no cough no nausea or vomiting no abdominal pain no diarrhea no burning with urination no frequency or urgency and no hematuria, glucose level is wildly fluctuating, at this time we are counting insulin requirement, will discontinue Daigle catheter, possible discharge to home tomorrow On 01/01/2020 patient was seen and examined on the medical floor she is alert and oriented 3 in no apparent distress she had hypoglycemia this morning otherwise no complaints there is no fever or chills no headache or dizziness no chest pain no shortness of breath no cough no nausea or vomiting no abdominal pain no diarrhea no burning with urination no frequency or urgency no hematuria. On 01/02/2020 patient was seen and examined on the medical floor she had another episode of hypoglycemia this morning, otherwise there is no complaints there is no fever or chills no headache or dizziness no chest pain no shortness of breath no cough no nausea or vomiting no abdominal pain no diarrhea no burning with urination no frequency or urgency and no hematuria time will decrease Levemir to 16 units at bedtime continue to monitor glucose level and adjust medications as needed On 01/03/2020 patient was seen and examined on the medical floor she is alert and oriented 3 in no apparent distress there is no fever or chills no headache or dizziness no chest pain no shortness of breath no cough no nausea or vomiting no abdominal pain no diarrhea no burning was urination no frequency or urgency and no hematuria. Patient is very sensitive to insulin, and her glucose level fluctuated fairly wildly, at the time of discharge she was sent home on Levemir or Lantus 16 units at bedtime, and NovoLog or Humalog 5 units before each meal, she will be followed in our office on Wednesday at 10:30 AM Plan - Discharge Summary New Discharge Prescriptions: New INSULIN ASPART (NovoLOG) [NovoLOG (formulary)] 5 unit SQ ACHS vial Pantoprazole [Protonix] 40 mg PO AC-BID tablet.dr Moreno Famotidine [Pepcid] 20 mg PO DAILY@0900 HYDROcodone/APAP 10-325MG [[place] 10-325] 1 tab PO Q6H PRN PRN Reason: Pain DULoxetine HCL [Cymbalta] 60 mg PO DAILY@0900 QUEtiapine [SEROquel] 100 mg PO HS@2100 Atorvastatin [Lipitor] 20 mg PO DAILY@2100 Aspirin [Adult Low Dose Aspirin EC] 81 mg PO DAILY@0900 Ferrous Sulfate [Iron (65 MG Elemental)] 325 mg PO DAILY@0900 Divalproex [Depakote] 250 mg PO TID #90 tablet. ALPRAZolam [Xanax] 1 mg PO TID PRN PRN Reason: Anxiety Albuterol Sulfate [Ventolin HFA] 2 puff INHALATION RT-Q4H PRN PRN Reason: Shortness Of Breath Valproic Acid [Depakene] 250 mg PO DAILY Ondansetron Odt [Zofran ODT] 4 mg PO DAILY PRN PRN Reason: Nausea Changed Insulin Glargine,Hum.rec.anlog [Basaglar Kwikpen U-100] 16 unit SQ HS #0 No Action Ergocalciferol [Vitamin D2 (DRISDOL)] 50,000 unit PO SA@0900 Vitamin B Complex With Vit C 1 tab PO DAILY INSULIN LISPRO (humaLOG) [humaLOG] See Protocol SQ ACHS Discharge Medication List Famotidine [Pepcid] 20 mg PO DAILY@0900 07/19/15 [History] Ergocalciferol [Vitamin D2 (DRISDOL)] 50,000 unit PO SA@0900 03/05/16 [History] HYDROcodone/APAP 10-325MG [[place] 10-325] 1 tab PO Q6H PRN 10/03/16 [History] DULoxetine HCL [Cymbalta] 60 mg PO DAILY@89902/16/17 [History] Atorvastatin [Lipitor] 20 mg PO DAILY@209912/28/18 [History] QUEtiapine [SEROquel] 100 mg PO HS@209912/28/18 [History] Vitamin B Complex With Vit C 1 tab PO DAILY 06/01/19 [History] Aspirin [Adult Low Dose Aspirin EC] 81 mg PO DAILY@89906/09/19 [History] Ferrous Sulfate [Iron (65 MG Elemental)] 325 mg PO DAILY@89906/09/19 [History] INSULIN LISPRO (humaLOG) [humaLOG] See Protocol SQ ACHS 08/13/19 [History] Divalproex [Depakote] 250 mg PO TID #90 tablet. 08/17/19 [Rx] ALPRAZolam [Xanax] 1 mg PO TID PRN 12/26/19 [History] Albuterol Sulfate [Ventolin HFA] 2 puff INHALATION RT-Q4H PRN 12/26/19 [History] Ondansetron Odt [Zofran ODT] 4 mg PO DAILY PRN 12/26/19 [History] Valproic Acid [Depakene] 250 mg PO DAILY 12/26/19 [History] INSULIN ASPART (NovoLOG) [NovoLOG (formulary)] 5 unit SQ ACHS vial 01/03/20 [Rx] Insulin Glargine,Hum.rec.anlog [Basaglar Kwikpen U-100] 16 unit SQ HS #0 01/03/20 [Rx] Pantoprazole [Protonix] 40 mg PO AC-BID tablet. 01/03/20 [Rx] Follow up Appointment(s)/Referral(s): [facility], [NON-STAFF] - Sherlyn Chen MD [Primary Care Provider] - 01/05/20 10:30 am
[2020-01-03 14:14] VITALS: BP 129/69; PULSE 98; RESP 19; TEMP 97.7
--- NOTE | 2020-01-05 11:02 | CDI ---
Documentation Clarification Form Date: 01/05/2020 10:51:28 AM From: Michelle Jean Baptiste Phone: If you have a question about this query, please contact Elina Vazquez Inspector Screen [employer]ing at [phone] between 8am and 5pm. Admit Date: 12/26/2019 04:09:00 PM Patient Name: Melva Jackson Visit Number: [id number] Discharge Date: 01/03/2020 03:45:00 PM ATTENTION: The Clinical Documentation Specialists (CDI) and [facility] Coding Staff appreciate your assistance in clarifying documentation. Please respond to the clarification below the line at the bottom and electronically sign. The CDI & [facility] Coding staff will review the response and follow-up if needed. Please note: Queries are made part of the Legal Health Record. If you have any questions, please contact the author of this message via ITS. Dr. Sherlyn Chen PMH for H and P documents renal disease and surgery consult documents PMH of renal failure. Please clarify if patient has CKD and if so, stage. History/Risk Factors: DM, HTN Clinical Indicators: Current BUN/CR/GFR: BUN - 50 CREAT. 1.13 GFR 53 on admit In order to capture the severity of condition, please clarify if patient has CDK and if so, the stage of the CKD, if known: CKD Stage 1 (GFR > 90) CKD Stage 2 (GFR 60-89) CKD Stage 3 (GFR 30-59) CKD Stage 4 (GFR 15-29) CKD Stage 5 (GFR <15) ESRD Other, please specify Unable to determine CKD stage 3 MTDD
--- NOTE | 2020-01-05 11:18 | CDI ---
Documentation Clarification Form Date: 01/05/2020 11:05:01 AM From: Michelle Jean Baptiste Phone: If you have a question about this query, please contact Elina Vazquez Information Assistant at [phone] between 8am and 5pm. Admit Date: 12/26/2019 04:09:00 PM Patient Name: Melva Jackson Visit Number: [id number] Discharge Date: 01/03/2020 03:45:00 PM ATTENTION: The Clinical Documentation Specialists (CDI) and [facility] Coding Staff appreciate your assistance in clarifying documentation. Please respond to the clarification below the line at the bottom and electronically sign. The CDI & [facility] Coding staff will review the response and follow-up if needed. Please note: Queries are made part of the Legal Health Record. If you have any questions, please contact the author of this message via ITS. Dr. Sherlyn Chen Heart failure is documented in PMH of H and P and consults. Please clarify if patient has CHF and if so, please specify type. History/Risk Factors: HTN DM PMH of heart failure, heart disease, Hx of DC Clinical Indicators: SOB VS/Pulse OX: 116 pbm, 18, 151/83, 99 RA BNP: not taken Chest X Ray: Heart size stable In your professional opinion, can you please clarify if patient has CHF? If so, type. Systolic Heart Failure: Acute Chronic Acute on Chronic Diastolic Heart Failure: Acute Chronic Acute on Chronic Systolic & Diastolic Heart Failure: Acute Chronic Acute on Chronic Heart Failure Unable to Determine Other, please specify Chronic diastolic heart failure MTDD
== END 2020-01-03 15:45 | disposition home health service (06) | DRG 638 ==
LOC: EC 13:41 → 3SCARD 16:09 → 2SICU 12-28 23:47 → 5NMEDONC 12-29 23:10
PROVIDERS: ADMIT Internal Medicine; ATTEND Internal Medicine
DX: E11.10 Type 2 diabetes mellitus with ketoacidosis without coma (principal); I69.354 Hemiplegia and hemiparesis following cerebral infarction affecting left non-dominant side; I50.32 Chronic diastolic (congestive) heart failure; E11.319 Type 2 diabetes mellitus with unspecified diabetic retinopathy without macular edema; E11.649 Type 2 diabetes mellitus with hypoglycemia without coma; N19 Unspecified kidney failure; F31.9 Bipolar disorder, unspecified; F41.9 Anxiety disorder, unspecified; G40.909 Epilepsy, unspecified, not intractable, without status epilepticus; I25.10 Atherosclerotic heart disease of native coronary artery without angina pectoris; I25.2 Old myocardial infarction; J44.9 Chronic obstructive pulmonary disease, unspecified; I95.9 Hypotension, unspecified; K21.9 Gastro-esophageal reflux disease without esophagitis; N18.3 Chronic kidney disease, stage 3 (moderate); Z79.4 Long term (current) use of insulin; Z79.82 Long term (current) use of aspirin; Z79.899 Other long term (current) drug therapy; Z20.828 Contact with and (suspected) exposure to other viral communicable diseases; Z82.49 Family history of ischemic heart disease and other diseases of the circulatory system; Z82.5 Family history of asthma and other chronic lower respiratory diseases; Z83.3 Family history of diabetes mellitus; Z86.718 Personal history of other venous thrombosis and embolism; Z87.891 Personal history of nicotine dependence; Z88.5 Allergy status to narcotic agent; Z89.411 Acquired absence of right great toe; Z89.421 Acquired absence of other right toe(s); Z90.710 Acquired absence of both cervix and uterus; Z96.1 Presence of intraocular lens; Z98.41 Cataract extraction status, right eye; Z98.42 Cataract extraction status, left eye; Z99.3 Dependence on wheelchair; E03.9 Hypothyroidism, unspecified; E78.5 Hyperlipidemia, unspecified; Z90.49 Acquired absence of other specified parts of digestive tract; R11.2 Nausea with vomiting, unspecified; D63.8 Anemia in other chronic diseases classified elsewhere; E86.0 Dehydration; Z88.0 Allergy status to penicillin; Z88.8 Allergy status to other drugs, medicaments and biological substances; Z91.030 Bee allergy status; Z87.01 Personal history of pneumonia (recurrent); H93.13 Tinnitus, bilateral; R41.82 Altered mental status, unspecified; K59.00 Constipation, unspecified; Z86.14 Personal history of Methicillin resistant Staphylococcus aureus infection; R51 Headache
CPT/HCPCS: 36410; 36415; 36600; 71046; 74150; 76937; 80048; 80053; 82009; 82140; 82150; 82805; 82947; 83036; 83605; 83690; 84484; 85025; 85610; 85730; 93005; 96360; 96361; 99285

== ENCOUNTER 2020-01-10 11:07 | Inpatient (IN) | payer OTHER ==
[2020-01-10] MEDS ORDERED: SODIUM CHLORIDE 0.9% 1,000 ML IV STA ×2 (11:34→12:48)
[2020-01-10 11:51] LABS: Glucose,Whole Blood 558 mg/dL (75-99)
--- NOTE | 2020-01-10 12:23 | XR ---
EXAMINATION TYPE: XR abdomen 1V DATE OF EXAM: 01/10/2020 Comparison: 08/12/2019 Clinical History: 59-year-old female n/v, constipation Findings: Lung bases are clear. Scattered vascular calcifications are present. Prominent phleboliths in the pelvis. No dilated small bowel. Mild stool throughout the colon especially on the left side of the abdomen. No dilated small bowel. Supine imaging limited for assessment of free air. Impression: Nonobstructive bowel gas pattern. Prominent vascular calcifications in the pelvis. Mild overall stool burden especially in the left side of the abdomen.
--- NOTE | 2020-01-10 12:32 | ED ---
Abdominal Pain HPI - General Source: patient, EMS Mode of arrival: EMS Limitations: no limitations <Renita Blanchard - Last Filed: 01/10/20 12:51> <Rod Lockett - Last Filed: 01/10/20 14:43> - General Chief Complaint: Abdominal Pain Stated Complaint: Nausea and Vomiting Time Seen by Provider: 01/10/20 11:21 - History of Present Illness Initial Comments: Patient is a 59-year-old female, with multiple comorbidities including diabetes, heart disease, presenting to the emergency department via EMS with complaints of nausea and vomiting since approximately 7:30 this morning. Family checked her sugar and it was high so she was given 20 units of insulin as well as 8 mg of Zofran. Patient states she has not had a bowel movement in approximately 4 days and is having some lower abdominal discomfort. Patient was just recently discharged from the hospital for hyperglycemia. Patient has had no vomiting sin ce arrival to the ER. She denies any recent fever, chills, diarrhea. She denies any chest pain or shortness of breath. She has no further complaints at this time. Upon arrival to the ER, patient slightly tachycardia at 107, blood pressure is 170/90, 19 respiratory rate, 98% of room air, afebrile. (Renita Blanchard) - Related Data Home Medications Medication Instructions Recorded Confirmed Famotidine [Pepcid] 20 mg PO DAILY@89907/19/15 01/10/20 HYDROcodone/APAP 10-325MG [[place] 1 tab PO Q6H PRN 10/03/16 01/10/20 10-325] DULoxetine HCL [Cymbalta] 60 mg PO DAILY@89902/16/17 01/10/20 Atorvastatin [Lipitor] 20 mg PO DAILY@209912/28/18 01/10/20 QUEtiapine [SEROquel] 100 mg PO HS@209912/28/18 01/10/20 Vitamin B Complex With Vit C 1 tab PO DAILY 06/01/19 01/10/20 Aspirin [Adult Low Dose Aspirin EC] 81 mg PO DAILY@89906/09/19 01/10/20 Ferrous Sulfate [Iron (65 MG 325 mg PO DAILY@89906/09/19 01/10/20 Elemental)] INSULIN LISPRO (humaLOG) [humaLOG] See Protocol SQ ACHS 08/13/19 01/10/20 ALPRAZolam [Xanax] 1 mg PO TID PRN 12/26/19 01/10/20 Albuterol Sulfate [Ventolin HFA] 2 puff INHALATION RT-Q4H PRN 12/26/19 01/10/20 Ondansetron Odt [Zofran ODT] 4 mg PO DAILY PRN 12/26/19 01/10/20 Valproic Acid [Depakene] 250 mg PO DAILY 12/26/19 01/10/20 INSULIN LISPRO (humaLOG) [humaLOG] 5 units SQ ACHS 01/10/20 01/10/20 Pantoprazole Sodium [Protonix] 20 mg PO DAILY 01/10/20 01/10/20 QUEtiapine [SEROquel] 25 mg PO BID 01/10/20 01/10/20 Previous Rx's Medication Instructions Recorded Divalproex [Depakote] 250 mg PO TID #90 tablet. 08/17/19 Insulin Glargine,Hum.rec.anlog 16 unit SQ HS #0 01/03/20 [Basaglar Kwikpen U-100] Allergies Allergy/AdvReac Type Severity Reaction Status Date / Time Barbiturates Allergy Rash/Hives Verified 01/10/20 12:28 cephalexin monohydrate Allergy Rash/Hives Verified 01/10/20 12:28 [From Keflex] morphine Allergy Rash/Hives Verified 01/10/20 12:28 Penicillins Allergy Rash/Hives Verified 01/10/20 12:28 phenobarbital Allergy Swelling Verified 01/10/20 12:28 venom-honey bee Allergy Swelling Verified 01/10/20 12:28 [bee venom (honey bee)] amlodipine besylate AdvReac Vomiting Verified 01/10/20 12:28 [From Norvasc] Review of Systems ROS Other: All systems not noted in ROS Statement are negative. <Renita Blanchard - Last Filed: 01/10/20 12:51> ROS Other: All systems not noted in ROS Statement are negative. <Rod Lockett - Last Filed: 01/10/20 14:43> ROS Statement: Those systems with pertinent positive or pertinent negative responses have been documented in the HPI. Past Medical History Past Medical History: Asthma, Coronary Artery Disease (CAD), Chest Pain / Angina, Heart Failure, COPD, CVA/TIA, Diabetes Mellitus, Deep Vein Thrombosis (DVT), Eye Disorder, GERD/Reflux, Hyperlipidemia, Hypertension, Myocardial Infarction (ME), Neurologic Disorder, Osteoarthritis (OA), Pneumonia, Renal Disease Additional Past Medical History / Comment(s): IDDM (brittle), DKAs, neuropathy bilateral hands/feet, retinopathy bilateral eyes, cellulitis R foot, R great toe and 2nd toe infections/amputations, current wound R foot-being seen in [facility], renal failure, anemia, CVAs with L sided paralysis, headaches started after CVAs, brain lesions, DVT R axillae, low back pain, varicosities, seizure many years ago (2001), hypothyroid, constipation, bilateral tinnitis occasionally, sinus problems. Last Myocardial Infarction Date:: 2011 History of Any Multi-Drug Resistant Organisms: MRSA Date of last positivie culture/infection: 09/06/17 MDRO Source:: Right Foot Past Surgical History: Appendectomy, Section, Cholecystectomy, Heart Catheterization With Stent, Hysterectomy, Orthopedic Surgery Additional Past Surgical History / Comment(s): PCI with multiple stents, R great toe and 2nd toe amps, debridements R foot ulcer, L shoulder surgery to remove bone, bronchoscopy, EGD, colonoscopy, R arm port since removed, bilateral cataract removals/lens implants. Past Anesthesia/Blood Transfusion Reactions: No Reported Reaction Additional Past Anesthesia/Blood Transfusion Reaction / Comment(s): HX OF BLOOD TRANSFUSION- NO REACTION Date of Last Stent Placement:: July 2012 Past Psychological History: Anxiety, Bipolar, Depression Smoking Status: Former smoker Past Alcohol Use History: None Reported Past Drug Use History: None Reported - Past Family History Father Family Medical History: Unable to Obtain, Coronary Artery Disease (CAD), Diabetes Mellitus Mother Family Medical History: COPD <Renita Blanchard - Last Filed: 01/10/20 12:51> General Exam Limitations: no limitations <Renita Blanchard - Last Filed: 01/10/20 12:51> - General Exam Comments Initial Comments: GENERAL: Patient appears pale, dry, in no acute distress. HEAD: Atraumatic, normocephalic. EYES: Pupils equal round and reactive to light, extraocular movements intact, sclera anicteric, conjunctiva are normal. Eyelids were unremarkable. ENT: TMs normal, nares patent, oropharynx clear without exudates. Dry mucous membranes. NECK: Normal range of motion, supple without lymphadenopathy or JVD. LUNGS: Unlabored respirations. Breath sounds clear to auscultation bilaterally and equal. No wheezes rales or rhonchi. HEART: Regular rate and rhythm without murmurs, rubs or gallops. ABDOMEN: Diffuse lower abdominal discomfort on palpation, no sharp pains. Soft, normoactive bowel sounds. No guarding, no rebound. No masses appreciated. : Deferred MUSCULOSKELETAL: Multiple toe amputations in the past. No clubbing or cyanosis. NEUROLOGICAL: Patient is alert and oriented x 3. Motor and sensory are also intact. Cranial nerves II through XII grossly intact. Symmetrical smile. Normal speech. PSYCH: Normal mood, normal affect. SKIN: Warm, Dry, normal turgor, no rashes. (Renita Blanchard) Course Vital Signs 01/10/20 01/10/20 11:11 13:38 Temperature 97.6 F Pulse Rate 107 H 110 H Respiratory 19 18 Rate Blood Pressure 170/90 167/90 O2 Sat by Pulse 98 98 Oximetry Medical Decision Making <Renita Blanchard - Last Filed: 01/10/20 12:51> - Lab Data Result diagrams: 01/10/20 13:27 01/10/20 11:52 <Rod Lockett - Last Filed: 01/10/20 14:43> - Medical Decision Making Patient is a 59-year-old female with multiple comorbidities presenting via EMS with nausea and vomiting since this morning as well as elevated blood sugar. Patient was recently admitted to hospital for same complaint. She is afebrile upon arrival, slightly tachycardia. (Renita Blanchard) Clinical presentation consistent with diabetic ketoacidosis. Patient be placed in ICU. Insulin protocol ordered. (Rod Lockett) - Lab Data Lab Results 01/10/20 01/10/20 01/10/20 Range/Units 11:49 11:52 11:52 WBC (3.8-10.6) k/uL RBC (3.80-5.40) m/uL Hgb (11.4-16.0) gm/dL Hct (34.0-46.0) % MCV (80.0-100.0) fL MCH (25.0-35.0) pg MCHC (31.0-37.0) g/dL RDW (11.5-15.5) % Plt Count (150-450) k/uL Neutrophils % % Lymphocytes % % Monocytes % % Eosinophils % % Basophils % % Neutrophils # (1.3-7.7) k/uL Lymphocytes # (1.0-4.8) k/uL Monocytes # (0-1.0) k/uL Eosinophils # (0-0.7) k/uL Basophils # (0-0.2) k/uL Hypochromasia PT (9.0-12.0) sec INR (<1.2) APTT (22.0-30.0) sec VBG pH (7.31-7.41) VBG pCO2 (37-51) mmHg VBG HCO3 (24-28) mmol/L Sodium 139 (137-145) mmol/L Potassium 5.4 H (3.5-5.1) mmol/L Chloride 101 (98-107) mmol/L Carbon Dioxide 17 L (22-30) mmol/L Anion Gap 21 mmol/L BUN 49 H (7-17) mg/dL Creatinine 1.54 H (0.52-1.04) mg/dL Est GFR (CKD-EPI)AfAm 42 (>60 ml/min/1.73 sqM) Est GFR (CKD-EPI)NonAf 37 (>60 ml/min/1.73 sqM) Glucose 542 H* (74-99) mg/dL POC Glucose (mg/dL) 558 H (75-99) mg/dL POC Glu Offset Plate Maker ID Patricia Gunn Lactic Ac Sepsis Rflx Plasma Lactic Acid Conrado 3.7 H* (0.7-2.0) mmol/L Calcium 10.4 H (8.4-10.2) mg/dL Total Bilirubin 0.6 (0.2-1.3) mg/dL AST 32 (14-36) U/L ALT 24 (4-34) U/L Alkaline Phosphatase 104 (38-126) U/L Total Protein 8.7 H (6.3-8.2) g/dL Albumin 4.4 (3.5-5.0) g/dL Lipase 15 L (23-300) U/L Acetone, Qual Positive (Negative) 01/10/20 01/10/20 01/10/20 Range/Units 12:37 13:27 13:27 WBC 10.7 H (3.8-10.6) k/uL RBC 4.15 (3.80-5.40) m/uL Hgb 12.1 (11.4-16.0) gm/dL Hct 39.1 (34.0-46.0) % MCV 94.2 (80.0-100.0) fL MCH 29.2 (25.0-35.0) pg MCHC 31.0 (31.0-37.0) g/dL RDW 15.0 (11.5-15.5) % Plt Count 366 (150-450) k/uL Neutrophils % 87 % Lymphocytes % 8 % Monocytes % 4 % Eosinophils % 0 % Basophils % 0 % Neutrophils # 9.4 H (1.3-7.7) k/uL Lymphocytes # 0.8 L (1.0-4.8) k/uL Monocytes # 0.4 (0-1.0) k/uL Eosinophils # 0.0 (0-0.7) k/uL Basophils # 0.0 (0-0.2) k/uL Hypochromasia Slight PT 9.9 (9.0-12.0) sec INR 0.9 (<1.2) APTT 20.0 L (22.0-30.0) sec VBG pH (7.31-7.41) VBG pCO2 (37-51) mmHg VBG HCO3 (24-28) mmol/L Sodium (137-145) mmol/L Potassium (3.5-5.1) mmol/L Chloride (98-107) mmol/L Carbon Dioxide (22-30) mmol/L Anion Gap mmol/L BUN (7-17) mg/dL Creatinine (0.52-1.04) mg/dL Est GFR (CKD-EPI)AfAm (>60 ml/min/1.73 sqM) Est GFR (CKD-EPI)NonAf (>60 ml/min/1.73 sqM) Glucose (74-99) mg/dL POC Glucose (mg/dL) (75-99) mg/dL POC Glu Offset Plate Maker ID Lactic Ac Sepsis Rflx Y Plasma Lactic Acid Conrado (0.7-2.0) mmol/L Calcium (8.4-10.2) mg/dL Total Bilirubin (0.2-1.3) mg/dL AST (14-36) U/L ALT (4-34) U/L Alkaline Phosphatase (38-126) U/L Total Protein (6.3-8.2) g/dL Albumin (3.5-5.0) g/dL Lipase (23-300) U/L Acetone, Qual (Negative) 01/10/20 01/10/20 Range/Units 13:27 14:26 WBC (3.8-10.6) k/uL RBC (3.80-5.40) m/uL Hgb (11.4-16.0) gm/dL Hct (34.0-46.0) % MCV (80.0-100.0) fL MCH (25.0-35.0) pg MCHC (31.0-37.0) g/dL RDW (11.5-15.5) % Plt Count (150-450) k/uL Neutrophils % % Lymphocytes % % Monocytes % % Eosinophils % % Basophils % % Neutrophils # (1.3-7.7) k/uL Lymphocytes # (1.0-4.8) k/uL Monocytes # (0-1.0) k/uL Eosinophils # (0-0.7) k/uL Basophils # (0-0.2) k/uL Hypochromasia PT (9.0-12.0) sec INR (<1.2) APTT (22.0-30.0) sec VBG pH 7.25 L (7.31-7.41) VBG pCO2 57 H (37-51) mmHg VBG HCO3 24 (24-28) mmol/L Sodium (137-145) mmol/L Potassium (3.5-5.1) mmol/L Chloride (98-107) mmol/L Carbon Dioxide (22-30) mmol/L Anion Gap mmol/L BUN (7-17) mg/dL Creatinine (0.52-1.04) mg/dL Est GFR (CKD-EPI)AfAm (>60 ml/min/1.73 sqM) Est GFR (CKD-EPI)NonAf (>60 ml/min/1.73 sqM) Glucose (74-99) mg/dL POC Glucose (mg/dL) 313 H (75-99) mg/dL POC Glu Offset Plate Maker ID Jessi Crockett Lactic Ac Sepsis Rflx Plasma Lactic Acid Conrado (0.7-2.0) mmol/L Calcium (8.4-10.2) mg/dL Total Bilirubin (0.2-1.3) mg/dL AST (14-36) U/L ALT (4-34) U/L Alkaline Phosphatase (38-126) U/L Total Protein (6.3-8.2) g/dL Albumin (3.5-5.0) g/dL Lipase (23-300) U/L Acetone, Qual (Negative) - EKG Data EKG Comments: Sinus tach with occasional PVCs, nonspecific T-wave abnormalities, no signs of acute ischemia, ventricular rate 105, WI interval 134, QT 354. (Renita Blanchard) Disposition <Renita Blanchard - Last Filed: 01/10/20 12:51> Decision Time: 14:43 <Rod Lockett - Last Filed: 01/10/20 14:43> Clinical Impression: DKA (diabetic ketoacidoses) Disposition: ADMITTED IP TO THIS [facility] Condition: Critical Referrals: Sherlyn Chen MD [Primary Care Provider] - 1-2 days
[2020-01-10 12:33] LABS: ALT 24 U/L (4-34); AST 32 U/L (14-36); African American GFR (CKD) 42 (>60 ml/min/1.73 sqM); Albumin 4.4 g/dL (3.5-5.0); Alkaline Phosphatase 104 U/L (38-126); Anion Gap 21 mmol/L; Blood Urea Nitrogen 49 mg/dL (7-17); Calcium 10.4 mg/dL (8.4-10.2); Carbon Dioxide 17 mmol/L (22-30); Chloride 101 mmol/L (98-107); Non-African American GFR(CKD) 37 (>60 ml/min/1.73 sqM); Potassium 5.4 mmol/L (3.5-5.1); Sodium 139 mmol/L (137-145); Total Bilirubin 0.6 mg/dL (0.2-1.3); Total Protein 8.7 g/dL (6.3-8.2)
[2020-01-10 12:52] LABS: Glucose 542 mg/dL (74-99)
[2020-01-10] MEDS ORDERED: ONDANSETRON 4 MG/2 ML VIAL IVP STA (13:07)
[2020-01-10 14:02] LABS: Basophils % (A) 0 %; Eosinophils % (A) 0 %; HCT 39.1 % (34.0-46.0); HGB 12.1 gm/dL (11.4-16.0); Hypochromasia Slight; INR 0.9 (<1.2); Lymphocytes # (A) 0.8 k/uL (1.0-4.8); Lymphocytes % (A) 8 %; MCH 29.2 pg (25.0-35.0); MCV 94.2 fL (80.0-100.0); Mean Platelet Volume 7.6; Monocytes # (A) 0.4 k/uL (0-1.0); Monocytes % (A) 4 %; Neutrophils # (A) 9.4 k/uL (1.3-7.7); Neutrophils % (A) 87 %; Platelet Count 366 k/uL (150-450); Prothrombin Time 9.9 sec (9.0-12.0); RBC 4.15 m/uL (3.80-5.40); WBC 10.7 k/uL (3.8-10.6)
[2020-01-10 14:14] LABS: VBG PH 7.25 (7.31-7.41)
[2020-01-10] MEDS ORDERED: Potassium Replacement Protocol 1 EACH MISC MISCELLANE PRN (14:18)
[2020-01-10] MEDS ORDERED: Magnesium Replacement Protocol 1 EACH MISC MISCELLANE PRN (14:18)
[2020-01-10] MEDS ORDERED: INSULIN REGULAR BOLUS (FROM DRIP BAG) IV ONE (14:18)
[2020-01-10] MEDS ORDERED: NALOXONE 0.4 MG/ML 1 ML VIAL IV PRN (14:26)
[2020-01-10 14:27] LABS: Glucose,Whole Blood 313 mg/dL (75-99)
[2020-01-10] MEDS ORDERED: INSULIN REGULAR 100 UNIT in SODIUM CHLORIDE 0.9% 100 ML IV SCH (14:30)
[2020-01-10 15:19] LABS: Glucose,Whole Blood 295 mg/dL (75-99)
[2020-01-10 15:39] LABS: Appearance,Urine Clear (Clear); Bilirubin,Urine Negative (Negative); Blood,Urine Trace (Negative); Color,Urine Light Yellow; Glucose,Urine (UA) 4+ (Negative); Hyaline Casts,Urine 26 /lpf (0-2); Leukocyte Esterase,Urine Negative (Negative); Mucus,Urine Rare /hpf; Nitrite,Urine Negative (Negative); Protein,Urine Negative (Negative); RBC,Urine 2 /hpf (0-5); Specific Gravity,Urine 1.014 (1.001-1.035); Squamous Epithelial Cell,Urine <1 /hpf (0-4); Urobilinogen,Urine <2.0 mg/dL (<2.0); WBC,Urine <1 /hpf (0-5)
[2020-01-10 15:45] LABS: Glucose,Whole Blood 251 mg/dL (75-99)
--- NOTE | 2020-01-10 16:34 | XR ---
EXAMINATION TYPE: XR chest 1V portable DATE OF EXAM: 01/10/2020 CLINICAL HISTORY: Blood gas abnormality. Weakness. TECHNIQUE: Portable upright view of the chest obtained. COMPARISON: 12/18/2019 chest radiograph FINDINGS: The cardiomediastinal silhouette is within normal limits for size. Pulmonary vasculature i s normal. There is hazy asymmetric airspace opacity of the left lung base. No pleural effusion or pne umothorax seen. The osseous structures are intact. IMPRESSION: Hazy airspace opacity of the left lung base represent developing pneumonia.
[2020-01-10 16:48] LABS: Glucose,Whole Blood 213 mg/dL (75-99)
[2020-01-10] MEDS: D5-0.45% NACL WITH KCL 20MEQ/L 1,000 ML IV SCH (16:49)
[2020-01-10 16:52] LABS: Ketones,Urine 2+ (Negative)
[2020-01-10 17:47] LABS: Glucose,Whole Blood 181 mg/dL (75-99)
[2020-01-10 18:00] LABS: Potassium 4.2 mmol/L (3.5-5.1)
[2020-01-10 19:09] LABS: Glucose,Whole Blood 169 mg/dL (75-99)
[2020-01-10 20:10] LABS: Glucose,Whole Blood 149 mg/dL (75-99)
[2020-01-10] MEDS: ONDANSETRON 4 MG/2 ML VIAL IVP PRN (20:55)
[2020-01-10 21:04] LABS: Glucose,Whole Blood 140 mg/dL (75-99)
[2020-01-10 21:30] LABS: Potassium 4.2 mmol/L (3.5-5.1)
[2020-01-10 22:20] LABS: Glucose,Whole Blood 177 mg/dL (75-99)
[2020-01-10 23:11] LABS: Glucose,Whole Blood 165 mg/dL (75-99)
[2020-01-10 23:18] LABS: Glucose,Whole Blood 191 mg/dL (75-99)
[2020-01-11 01:07] LABS: Glucose,Whole Blood 239 mg/dL (75-99)
[2020-01-11 02:05] LABS: Glucose,Whole Blood 224 mg/dL (75-99)
[2020-01-11 02:18] LABS: Potassium 4.5 mmol/L (3.5-5.1)
[2020-01-11] MEDS: ONDANSETRON 4 MG/2 ML VIAL IVP PRN ×3 (02:21→09:28)
[2020-01-11] MEDS: D5-0.45% NACL WITH KCL 20MEQ/L 1,000 ML IV SCH ×2 (02:30→07:00)
[2020-01-11 03:12] LABS: Glucose,Whole Blood 244 mg/dL (75-99)
[2020-01-11 04:54] LABS: Glucose,Whole Blood 258 mg/dL (75-99)
[2020-01-11 05:20] LABS: HCT 30.8 % (34.0-46.0); Hypochromasia Slight; MCH 30.4 pg (25.0-35.0); MCHC 32.6 g/dL (31.0-37.0); MCV 93.3 fL (80.0-100.0); Mean Platelet Volume 7.6; Platelet Count 270 k/uL (150-450); RDW 15.8 % (11.5-15.5)
[2020-01-11 05:32] LABS: Albumin 3.4 g/dL (3.5-5.0); Calcium 8.7 mg/dL (8.4-10.2); Potassium 4.4 mmol/L (3.5-5.1); Total Bilirubin 0.3 mg/dL (0.2-1.3); Total Protein 6.9 g/dL (6.3-8.2)
[2020-01-11 06:21] LABS: Glucose,Whole Blood 268 mg/dL (75-99)
[2020-01-11 07:20] LABS: Glucose,Whole Blood 278 mg/dL (75-99)
[2020-01-11 08:07] LABS: Glucose,Whole Blood 335 mg/dL (75-99)
[2020-01-11] MEDS: SODIUM CHLORIDE 0.9% 1,000 ML IV SCH ×2 (09:08→23:54)
[2020-01-11] MEDS: INSULIN ASPART (NovoLOG) 100 UNIT/ML VIAL SQ SCH ×4 (09:27→21:06)
[2020-01-11] MEDS: INSULIN DETEMIR (LEVEMIR) 100 UNIT/ML SYR SQ SCH (10:06)
[2020-01-11 11:09] LABS: Glucose,Whole Blood 362 mg/dL (75-99)
[2020-01-11] MEDS: METOCLOPRAMIDE 10 MG TAB PO SCH ×2 (12:14→19:09)
[2020-01-11] MEDS ORDERED: INSULIN ASPART (NovoLOG) 100 UNIT/ML VIAL SQ SCH (12:30)
--- NOTE | 2020-01-11 13:00 | P.CNPUL ---
History of Present Illness Consult date: 01/11/20 Reason for consult: other (DK) Chief complaint: Abdominal pain History of present illness: This is a 59-year-old female with multiple comorbidities including type 1 diabetes, brittle, coronary artery disease, COPD, recurrent admissions with diabetic ketoacidosis, history of DVT, dyslipidemia, hypertension, previous VA, diabetic foot ulcers, previous history of osteomyelitis, history of CVA, chronic kidney disease, patient was brought into the hospital with a few days' history of nausea vomiting and abdominal pain. Workup revealed evidence of hyperglycemia and diabetic ketoacidosis with positive ketones. Blood sugar was as high as 542. Patient had a significant anion gap metabolic acidosis, admitted to the ICU, placed on the DKA protocol, and I was asked to see her on consultation. Overnight, the patient responded well to the DKA protocol, and this morning her anion gap has closed, I have discontinued her IV insulin, and recommended insulin as per sliding scale subcu, and started the patient back on her usual Lantus insulin dose daily of 16 units. Patient is not a great historian, noted to be relatively asymptomatic this morning, hence I plan to transfer the patient out of the ICU to a regular medical floor, and to be followed by her admitting physician. Review of Systems Unable to obtain patient is a poor historian, and poor mental status, ROS unobtainable: due to mental status Past Medical History Past Medical History: Asthma, Coronary Artery Disease (CAD), Chest Pain / Angina, Heart Failure, COPD, CVA/TIA, Diabetes Mellitus, Deep Vein Thrombosis (DVT), Eye Disorder, GERD/Reflux, Hyperlipidemia, Hypertension, Myocardial Infarction (VA), Neurologic Disorder, Osteoarthritis (OA), Pneumonia, Renal Disease Additional Past Medical History / Comment(s): IDDM (brittle), DKAs, neuropathy bilateral hands/feet, retinopathy bilateral eyes, cellulitis R foot, R great toe and 2nd toe infections/amputations, current wound R foot-being seen in [facility], renal failure, anemia, CVAs with L sided paralysis, headaches started after CVAs, brain lesions, DVT R axillae, low back pain, varicosities, seizure many years ago (2001), hypothyroid, constipation, bilateral tinnitis occasionally, sinus problems. Last Myocardial Infarction Date:: 2011 History of Any Multi-Drug Resistant Organisms: MRSA Date of last positivie culture/infection: 09/06/17 MDRO Source:: Right Foot Past Surgical History: Appendectomy, Section, Cholecystectomy, Heart Catheterization With Stent, Hysterectomy, Orthopedic Surgery Additional Past Surgical History / Comment(s): PCI with multiple stents, R great toe and 2nd toe amps, debridements R foot ulcer, L shoulder surgery to remove bone, bronchoscopy, EGD, colonoscopy, R arm port since removed, bilateral cataract removals/lens implants. Past Anesthesia/Blood Transfusion Reactions: No Reported Reaction Additional Past Anesthesia/Blood Transfusion Reaction / Comment(s): HX OF BLOOD TRANSFUSION- NO REACTION Date of Last Stent Placement:: July 2012 Past Psychological History: Anxiety, Bipolar, Depression Additional Psychological History / Comment(s): Pt has a legal guardian, Sera Rodriguez, who is pt's sister. Currently her legal guardian is hospitalized. Pt has a caregiver, No, who resides with her. Pt is wheelchair bound d/t CVA with L sided paralysis arm and leg. She has a shower chair and a glucometer. Her sister or caregiver drive her to [employer]. Smoking Status: Former smoker Past Alcohol Use History: None Reported Additional Past Alcohol Use History / Comment(s): Pt started smoking in 1982 and quit in 2017. Using marijuana edibles occasionally but none for a "long time" Past Drug Use History: None Reported Additional Drug Use History / Comment(s): using marijuana edibles - Past Family History Father Family Medical History: Unable to Obtain, Coronary Artery Disease (CAD), Diabetes Mellitus Mother Family Medical History: COPD Medications and Allergies Home Medications Medication Instructions Recorded Confirmed Type Famotidine [Pepcid] 20 mg PO DAILY@89907/19/15 01/10/20 History HYDROcodone/APAP 10-325MG [Fabius 1 tab PO Q6H PRN 10/03/16 01/10/20 History 10-325] DULoxetine HCL [Cymbalta] 60 mg PO DAILY@89902/16/17 01/10/20 History Atorvastatin [Lipitor] 20 mg PO DAILY@209912/28/18 01/10/20 History QUEtiapine [SEROquel] 100 mg PO HS@209912/28/18 01/10/20 History Vitamin B Complex With Vit C 1 tab PO DAILY 06/01/19 01/10/20 History Aspirin [Adult Low Dose Aspirin EC] 81 mg PO DAILY@0900 06/09/19 01/10/20 History Ferrous Sulfate [Iron (65 MG 325 mg PO DAILY@89906/09/19 01/10/20 History Elemental)] INSULIN LISPRO (humaLOG) [humaLOG] See Protocol SQ ACHS 08/13/19 01/10/20 History Divalproex [Depakote] 250 mg PO TID #90 tablet. 08/17/19 01/10/20 Rx ALPRAZolam [Xanax] 1 mg PO TID PRN 12/26/19 01/10/20 History Albuterol Sulfate [Ventolin HFA] 2 puff INHALATION RT-Q4H PRN 12/26/19 01/10/20 History Ondansetron Odt [Zofran ODT] 4 mg PO DAILY PRN 12/26/19 01/10/20 History Valproic Acid [Depakene] 250 mg PO DAILY 12/26/19 01/10/20 History Insulin Glargine,Hum.rec.anlog 16 unit SQ HS #0 01/03/20 01/10/20 Rx [Basaglar Kwikpen U-100] INSULIN LISPRO (humaLOG) [humaLOG] 5 units SQ ACHS 01/10/20 01/10/20 History Pantoprazole Sodium [Protonix] 20 mg PO DAILY 01/10/20 01/10/20 History QUEtiapine [SEROquel] 25 mg PO BID 01/10/20 01/10/20 History Allergies Allergy/AdvReac Type Severity Reaction Status Date / Time Barbiturates Allergy Rash/Hives Verified 01/10/20 12:28 cephalexin monohydrate Allergy Rash/Hives Verified 01/10/20 12:28 [From Keflex] morphine Allergy Rash/Hives Verified 01/10/20 12:28 Penicillins Allergy Rash/Hives Verified 01/10/20 12:28 phenobarbital Allergy Swelling Verified 01/10/20 12:28 venom-honey bee Allergy Swelling Verified 01/10/20 12:28 [bee venom (honey bee)] amlodipine besylate AdvReac Vomiting Verified 01/10/20 12:28 [From Norvasc] Physical Exam Vitals: Vital Signs Temp Pulse Pulse Resp BP Pulse Ox 01/11/20 12:00 98.6 F 104 H 15 182/91 97 01/11/20 11:00 109 H 14 01/11/20 10:00 117 H 15 01/11/20 09:00 118 H 14 96 01/11/20 08:00 98.6 F 118 H 18 132/65 98 01/11/20 07:00 125 H 24 161/84 96 01/11/20 06:00 115 H 25 H 135/87 97 01/11/20 05:00 122 H 17 157/70 97 01/11/20 04:00 98.5 F 120 H 25 H 169/94 95 01/11/20 03:00 91 21 151/96 94 L 01/11/20 02:00 97 24 132/65 95 01/11/20 01:00 105 H 24 157/85 95 01/11/20 00:27 90 19 112/49 94 L 01/11/20 00:00 98.4 F 96 17 137/95 91 L 01/10/20 23:00 99 15 111/60 96 01/10/20 22:00 95 18 114/59 93 L 01/10/20 21:00 112 H 19 173/88 97 01/10/20 20:00 98.3 F 95 18 123/57 94 L 01/10/20 19:00 91 17 108/98 95 01/10/20 18:00 106 H 22 157/82 96 01/10/20 17:00 102 H 18 178/87 95 01/10/20 16:00 98.0 F 98 102 H 22 159/74 96 01/10/20 15:08 103 H 17 149/84 98 01/10/20 13:38 110 H 18 167/90 98 Intake and Output 01/10/20 01/11/20 01/11/20 22:59 06:59 14:59 Intake Total 619.628 2753.557 450 Output Total 845 625 650 Balance 87.117 589.557 -200 Intake: IV 900 1200 150 D5-0.45% NaCl with KCl 900 1200 150 20Meq/l 1,000 ml @ 150 mls/hr IV .Q6H40M [facility] Rx# :[id number] Intake, IV Titration 32.117 14.557 300 Amount Insulin Regular 100 unit 32.117 14.557 In Sodium Chloride 0.9% 100 ml @ 0.1 UNITS/KG/HR 4.696 mls/hr IV .[id number] [facility] Rx#:[id number] Sodium Chloride 0.9% 1, 300 000 ml @ 100 mls/hr IV . Q10H [facility] Rx#:[id number] Output: Urine 845 625 650 Other: Voiding Method Indwelling Catheter Indwelling Catheter Indwelling Catheter Weight 46.493 kg 51.1 kg Physical Exam: Revealed 59-year-old female in no distress. HEENT:[Neck is supple.] [No neck masses.] [No thyromegaly.] [No JVD.] PERRLA, EOMI, dry mucous membranes noted. Chest: [Clear throughout, no crackles, no rhonchi, no wheezes.] Cardiac Exam: [Normal S1 and S2, no S3 gallop, no murmur.] Abdomen: [Soft, minimal lower abdominal tenderness, no rebound, no guarding, positive bowel sounds. Extremities: [No clubbing, no edema, no cyanosis.] Multiple toes amputations noted in the past. Neurological Exam: Patient is oriented 1, confused, moves all extremities. Psychiatric: Depressed mood, blunt affect, questionable mental status. Results - Laboratory Findings CBC and BMP: 01/11/20 05:00 01/11/20 05:00 PT/INR, D-dimer PT 9.9 sec (9.0-12.0) 01/10/20 13:27 INR 0.9 (<1.2) 01/10/20 13:27 Abnormal lab findings: Abnormal Labs 01/10/20 01/10/20 01/10/20 11:49 11:52 11:52 WBC RBC Hgb Hct RDW Neutrophils # Lymphocytes # APTT VBG pH VBG pCO2 Potassium 5.4 H Chloride Carbon Dioxide 17 L BUN 49 H Creatinine 1.54 H Glucose 542 H* POC Glucose (mg/dL) 558 H Plasma Lactic Acid Conrado 3.7 H* Calcium 10.4 H Total Protein 8.7 H Albumin Lipase 15 L Urine Glucose (UA) Urine Ketones Urine Blood Hyaline Casts Urine Mucus 01/10/20 01/10/20 01/10/20 13:27 13:27 13:27 WBC 10.7 H RBC Hgb Hct RDW Neutrophils # 9.4 H Lymphocytes # 0.8 L APTT 20.0 L VBG pH 7.25 L VBG pCO2 57 H Potassium Chloride Carbon Dioxide BUN Creatinine Glucose POC Glucose (mg/dL) Plasma Lactic Acid Conrado Calcium Total Protein Albumin Lipase Urine Glucose (UA) Urine Ketones Urine Blood Hyaline Casts Urine Mucus 01/10/20 01/10/20 01/10/20 14:26 14:37 15:18 WBC RBC Hgb Hct RDW Neutrophils # Lymphocytes # APTT VBG pH VBG pCO2 Potassium Chloride Carbon Dioxide BUN Creatinine Glucose POC Glucose (mg/dL) 313 H 295 H Plasma Lactic Acid Conrado Calcium Total Protein Albumin Lipase Urine Glucose (UA) 4+ H Urine Ketones 2+ H Urine Blood Trace H Hyaline Casts 26 H Urine Mucus Rare H 01/10/20 01/10/20 01/10/20 15:42 16:47 17:24 WBC RBC Hgb Hct RDW Neutrophils # Lymphocytes # APTT VBG pH VBG pCO2 Potassium Chloride 110 H Carbon Dioxide BUN Creatinine Glucose POC Glucose (mg/dL) 251 H 213 H Plasma Lactic Acid Conrado Calcium Total Protein Albumin Lipase Urine Glucose (UA) Urine Ketones Urine Blood Hyaline Casts Urine Mucus 01/10/20 01/10/20 01/10/20 17:46 19:07 20:08 WBC RBC Hgb Hct RDW Neutrophils # Lymphocytes # APTT VBG pH VBG pCO2 Potassium Chloride Carbon Dioxide BUN Creatinine Glucose POC Glucose (mg/dL) 181 H 169 H 149 H Plasma Lactic Acid Conrado Calcium Total Protein Albumin Lipase Urine Glucose (UA) Urine Ketones Urine Blood Hyaline Casts Urine Mucus 01/10/20 01/10/20 01/10/20 20:57 21:02 22:18 WBC RBC Hgb Hct RDW Neutrophils # Lymphocytes # APTT VBG pH VBG pCO2 Potassium Chloride 109 H Carbon Dioxide BUN Creatinine Glucose POC Glucose (mg/dL) 140 H 177 H Plasma Lactic Acid Conrado Calcium Total Protein Albumin Lipase Urine Glucose (UA) Urine Ketones Urine Blood Hyaline Casts Urine Mucus 01/10/20 01/10/20 01/11/20 23:08 23:16 01:05 WBC RBC Hgb Hct RDW Neutrophils # Lymphocytes # APTT VBG pH VBG pCO2 Potassium Chloride Carbon Dioxide BUN Creatinine Glucose POC Glucose (mg/dL) 165 H 191 H 239 H Plasma Lactic Acid Conrado Calcium Total Protein Albumin Lipase Urine Glucose (UA) Urine Ketones Urine Blood Hyaline Casts Urine Mucus 01/11/20 01/11/20 01/11/20 02:00 02:04 03:11 WBC RBC Hgb Hct RDW Neutrophils # Lymphocytes # APTT VBG pH VBG pCO2 Potassium Chloride 108 H Carbon Dioxide BUN Creatinine Glucose POC Glucose (mg/dL) 224 H 244 H Plasma Lactic Acid Conrado Calcium Total Protein Albumin Lipase Urine Glucose (UA) Urine Ketones Urine Blood Hyaline Casts Urine Mucus 01/11/20 01/11/20 01/11/20 04:52 05:00 05:00 WBC 11.0 H RBC 3.30 L Hgb 10.0 L D Hct 30.8 L RDW 15.8 H Neutrophils # Lymphocytes # APTT VBG pH VBG pCO2 Potassium Chloride Carbon Dioxide BUN 22 H Creatinine Glucose 262 H POC Glucose (mg/dL) 258 H Plasma Lactic Acid Conrado Calcium Total Protein Albumin 3.4 L Lipase Urine Glucose (UA) Urine Ketones Urine Blood Hyaline Casts Urine Mucus 01/11/20 01/11/20 01/11/20 06:19 07:19 08:06 WBC RBC Hgb Hct RDW Neutrophils # Lymphocytes # APTT VBG pH VBG pCO2 Potassium Chloride Carbon Dioxide BUN Creatinine Glucose POC Glucose (mg/dL) 268 H 278 H 335 H Plasma Lactic Acid Conrado Calcium Total Protein Albumin Lipase Urine Glucose (UA) Urine Ketones Urine Blood Hyaline Casts Urine Mucus 01/11/20 11:07 WBC RBC Hgb Hct RDW Neutrophils # Lymphocytes # APTT VBG pH VBG pCO2 Potassium Chloride Carbon Dioxide BUN Creatinine Glucose POC Glucose (mg/dL) 362 H Plasma Lactic Acid Conrado Calcium Total Protein Albumin Lipase Urine Glucose (UA) Urine Ketones Urine Blood Hyaline Casts Urine Mucus - Diagnostic Findings Chest x-ray: image reviewed (Left lower lobe atelectasis, possible limited pneumonia/infiltrate involving the left lower lobe, new compared to most recent chest x-ray) Assessment and Plan Assessment: Impression: Acute diabetic ketoacidosis. Left lower lobe atelectasis, possible healthcare acquired pneumonia, History of hypertension. History of depression. History of CVA. Involving MCA/RUSTAM vascular territory with history of left hemiparesis arm greater than leg. Brittle type 1 diabetes. Benign essential hypertension History of peripheral vessel occlusive disease involving the lower extremities. History of coronary artery disease and previous coronary stenting. History of COPD, presently in active. History of right foot osteomyelitis. Recommendation: Patient responded well to the DKA protocol. Continue insulin however will switch the patient to subcu insulin based on sliding scale. Lantus insulin once daily. Resume home meds. Pro-calcitonin level and decide whether the patient would require antibiotics for her left lower lobe suspicious infiltrate. Clinically doubt pneumonia. Patient has multiple ALLERGIES to different antibiotics. We'll continue to follow. Time with Patient: Greater than 30
[2020-01-11] MEDS ORDERED: HYDROcodone/APAP 10-325MG 1 EACH TAB PO PRN (17:09)
--- NOTE | 2020-01-11 17:15 | P.HPIM ---
History of Present Illness H&P Date: 01/11/20 Melva Jackson, is a 59-year-old female who was brought in to [facility] emergency room via EMS, was elevated blood glucose of 542, elevated BUN and creatinine of 49 and 1.54 and positive ketones, patient was started on IV fluid, IV insulin drip and was admitted to intensive care unit for diabetic ketoacidosis. Patient was complaining of nausea, otherwise she denies any complaints there is no fever or chills no headache or dizziness no chest pain no shortness of breath no cough no abdominal pain no diarrhea no burning with urination no frequency or urgency and no hematuria. Patient has known history of diabetes mellitus type 1 she also has known history of peripheral vascular disease with previous history of toe amputation, history of bipolar disorder, history of hyperlipidemia, and history of anxiety disorder Past Medical History Past Medical History: Asthma, Coronary Artery Disease (CAD), Chest Pain / Angina, Heart Failure, COPD, CVA/TIA, Diabetes Mellitus, Deep Vein Thrombosis (DVT), Eye Disorder, GERD/Reflux, Hyperlipidemia, Hypertension, Myocardial Infarction (CT), Neurologic Disorder, Osteoarthritis (OA), Pneumonia, Renal Disease Additional Past Medical History / Comment(s): IDDM (brittle), DKAs, neuropathy bilateral hands/feet, retinopathy bilateral eyes, cellulitis R foot, R great toe and 2nd toe infections/amputations, current wound R foot-being seen in [facility] [place], renal failure, anemia, CVAs with L sided paralysis, headaches started after CVAs, brain lesions, DVT R axillae, low back pain, varicosities, seizure many years ago (2001), hypothyroid, constipation, bilateral tinnitis occasionally, sinus problems. Last Myocardial Infarction Date:: 2011 History of Any Multi-Drug Resistant Organisms: MRSA Date of last positivie culture/infection: 09/06/17 MDRO Source:: Right Foot Past Surgical History: Appendectomy, Section, Cholecystectomy, Heart Catheterization With Stent, Hysterectomy, Orthopedic Surgery Additional Past Surgical History / Comment(s): PCI with multiple stents, R great toe and 2nd toe amps, debridements R foot ulcer, L shoulder surgery to remove bone, bronchoscopy, EGD, colonoscopy, R arm port since removed, bilateral cataract removals/lens implants. Past Anesthesia/Blood Transfusion Reactions: No Reported Reaction Additional Past Anesthesia/Blood Transfusion Reaction / Comment(s): HX OF BLOOD TRANSFUSION- NO REACTION Date of Last Stent Placement:: July 2012 Past Psychological History: Anxiety, Bipolar, Depression Additional Psychological History / Comment(s): Pt has a legal guardian, Sera Rodriguez, who is pt's sister. Currently her legal guardian is hospitalized. Pt has a caregiver, No, who resides with her. Pt is wheelchair bound d/t CVA with L sided paralysis arm and leg. She has a shower chair and a glucometer. Her sister or caregiver drive her to [email or web address]. Smoking Status: Former smoker Past Alcohol Use History: None Reported Additional Past Alcohol Use History / Comment(s): Pt started smoking in 1982 and quit in 2017. Using marijuana edibles occasionally but none for a "long time" Past Drug Use History: None Reported Additional Drug Use History / Comment(s): using marijuana edibles - Past Family History Father Family Medical History: Unable to Obtain, Coronary Artery Disease (CAD), Diabetes Mellitus Mother Family Medical History: COPD Medications and Allergies Home Medications Medication Instructions Recorded Confirmed Type Famotidine [Pepcid] 20 mg PO DAILY@89907/19/15 01/10/20 History HYDROcodone/APAP 10-325MG [[place] 1 tab PO Q6H PRN 10/03/16 01/10/20 History 10-325] DULoxetine HCL [Cymbalta] 60 mg PO DAILY@89902/16/17 01/10/20 History Atorvastatin [Lipitor] 20 mg PO DAILY@209912/28/18 01/10/20 History QUEtiapine [SEROquel] 100 mg PO HS@209912/28/18 01/10/20 History Vitamin B Complex With Vit C 1 tab PO DAILY 06/01/19 01/10/20 History Aspirin [Adult Low Dose Aspirin EC] 81 mg PO DAILY@89906/09/19 01/10/20 History Ferrous Sulfate [Iron (65 MG 325 mg PO DAILY@89906/09/19 01/10/20 History Elemental)] INSULIN LISPRO (humaLOG) [humaLOG] See Protocol SQ ACHS 08/13/19 01/10/20 History Divalproex [Depakote] 250 mg PO TID #90 tablet. 08/17/19 01/10/20 Rx ALPRAZolam [Xanax] 1 mg PO TID PRN 12/26/19 01/10/20 History Albuterol Sulfate [Ventolin HFA] 2 puff INHALATION RT-Q4H PRN 12/26/19 01/10/20 History Ondansetron Odt [Zofran ODT] 4 mg PO DAILY PRN 12/26/19 01/10/20 History Valproic Acid [Depakene] 250 mg PO DAILY 12/26/19 01/10/20 History Insulin Glargine,Hum.rec.anlog 16 unit SQ HS #0 01/03/20 01/10/20 Rx [Basaglar Kwikpen U-100] INSULIN LISPRO (humaLOG) [humaLOG] 5 units SQ ACHS 01/10/20 01/10/20 History Pantoprazole Sodium [Protonix] 20 mg PO DAILY 01/10/20 01/10/20 History QUEtiapine [SEROquel] 25 mg PO BID 01/10/20 01/10/20 History Allergies Allergy/AdvReac Type Severity Reaction Status Date / Time Barbiturates Allergy Rash/Hives Verified 01/10/20 12:28 cephalexin monohydrate Allergy Rash/Hives Verified 01/10/20 12:28 [From Keflex] morphine Allergy Rash/Hives Verified 01/10/20 12:28 Penicillins Allergy Rash/Hives Verified 01/10/20 12:28 phenobarbital Allergy Swelling Verified 01/10/20 12:28 venom-honey bee Allergy Swelling Verified 01/10/20 12:28 [bee venom (honey bee)] amlodipine besylate AdvReac Vomiting Verified 01/10/20 12:28 [From Norvas] Physical Exam Vitals: Vital Signs Temp Pulse Pulse Resp BP Pulse Ox 01/11/20 12:00 98.6 F 104 H 15 182/91 97 01/11/20 11:00 109 H 14 01/11/20 10:00 117 H 15 01/11/20 09:00 118 H 14 96 01/11/20 08:00 98.6 F 118 H 18 132/65 98 01/11/20 07:00 125 H 24 161/84 96 01/11/20 06:00 115 H 25 H 135/87 97 01/11/20 05:00 122 H 17 157/70 97 01/11/20 04:00 98.5 F 120 H 25 H 169/94 95 01/11/20 03:00 91 21 151/96 94 L 01/11/20 02:00 97 24 132/65 95 01/11/20 01:00 105 H 24 157/85 95 01/11/20 00:27 90 19 112/49 94 L 01/11/20 00:00 98.4 F 96 17 137/95 91 L 01/10/20 23:00 99 15 111/60 96 01/10/20 22:00 95 18 114/59 93 L 01/10/20 21:00 112 H 19 173/88 97 01/10/20 20:00 98.3 F 95 18 123/57 94 L 01/10/20 19:00 91 17 108/98 95 01/10/20 18:00 106 H 22 157/82 96 01/10/20 17:00 102 H 18 178/87 95 01/10/20 16:00 98.0 F 98 102 H 22 159/74 96 01/10/20 15:08 103 H 17 149/84 98 Intake and Output 01/10/20 01/11/20 01/11/20 22:59 06:59 14:59 Intake Total 696.629 1937.557 450 Output Total 845 625 650 Balance 87.117 589.557 -200 Intake: IV 900 1200 150 D5-0.45% NaCl with KCl 900 1200 150 20Meq/l 1,000 ml @ 150 mls/hr IV .Q6H40M HUMAIRA Rx# :[id number] Intake, IV Titration 32.117 14.557 300 Amount Insulin Regular 100 unit 32.117 14.557 In Sodium Chloride 0.9% 100 ml @ 0.1 UNITS/KG/HR 4.696 mls/hr IV .[id number] HUMAIRA Rx#:[id number] Sodium Chloride 0.9% 1, 300 000 ml @ 100 mls/hr IV . Q10H HUMAIRA Rx#:[id number] Output: Urine 845 625 650 Other: Voiding Method Indwelling Catheter Indwelling Catheter Indwelling Catheter Weight 46.493 kg 51.1 kg In general patient is alert and oriented 3 in no apparent distress HEENT head normocephalic and atraumatic Neck is supple no JVD no goiter no lymphadenopathy Chest exam reveals a few scattered rhonchi no wheezing Cardiac exam reveals regular heart sounds no gallops no murmurs Abdomen is soft nontender no organomegaly with normal bowel sounds Extremity exam reveals no edema no cyanosis or clubbing Results CBC & Chem 7: 01/11/20 05:00 01/11/20 05:00 Labs: Abnormal Lab Results - Last 24 Hours (Table) 01/10/20 01/10/20 01/10/20 Range/Units 13:27 14:26 14:37 WBC (3.8-10.6) k/uL RBC (3.80-5.40) m/uL Hgb (11.4-16.0) gm/dL Hct (34.0-46.0) % RDW (11.5-15.5) % APTT 20.0 L (22.0-30.0) sec Chloride (98-107) mmol/L BUN (7-17) mg/dL Glucose (74-99) mg/dL POC Glucose (mg/dL) 313 H (75-99) mg/dL Albumin (3.5-5.0) g/dL Urine Glucose (UA) 4+ H (Negative) Urine Ketones 2+ H (Negative) Urine Blood Trace H (Negative) Hyaline Casts 26 H (0-2) /lpf Urine Mucus Rare H (None) /hpf 01/10/20 01/10/20 01/10/20 Range/Units 15:18 15:42 16:47 WBC (3.8-10.6) k/uL RBC (3.80-5.40) m/uL Hgb (11.4-16.0) gm/dL Hct (34.0-46.0) % RDW (11.5-15.5) % APTT (22.0-30.0) sec Chloride (98-107) mmol/L BUN (7-17) mg/dL Glucose (74-99) mg/dL POC Glucose (mg/dL) 295 H 251 H 213 H (75-99) mg/dL Albumin (3.5-5.0) g/dL Urine Glucose (UA) (Negative) Urine Ketones (Negative) Urine Blood (Negative) Hyaline Casts (0-2) /lpf Urine Mucus (None) /hpf 01/10/20 01/10/20 01/10/20 Range/Units 17:24 17:46 19:07 WBC (3.8-10.6) k/uL RBC (3.80-5.40) m/uL Hgb (11.4-16.0) gm/dL Hct (34.0-46.0) % RDW (11.5-15.5) % APTT (22.0-30.0) sec Chloride 110 H (98-107) mmol/L BUN (7-17) mg/dL Glucose (74-99) mg/dL POC Glucose (mg/dL) 181 H 169 H (75-99) mg/dL Albumin (3.5-5.0) g/dL Urine Glucose (UA) (Negative) Urine Ketones (Negative) Urine Blood (Negative) Hyaline Casts (0-2) /lpf Urine Mucus (None) /[facility] 01/10/20 01/10/20 01/10/20 Range/Units 20:08 20:57 21:02 WBC (3.8-10.6) k/uL RBC (3.80-5.40) m/uL Hgb (11.4-16.0) gm/dL Hct (34.0-46.0) % RDW (11.5-15.5) % APTT (22.0-30.0) sec Chloride 109 H (98-107) mmol/L BUN (7-17) mg/dL Glucose (74-99) mg/dL POC Glucose (mg/dL) 149 H 140 H (75-99) mg/dL Albumin (3.5-5.0) g/dL Urine Glucose (UA) (Negative) Urine Ketones (Negative) Urine Blood (Negative) Hyaline Casts (0-2) /lpf Urine Mucus (None) /[facility] 01/10/20 01/10/20 01/10/20 Range/Units 22:18 23:08 23:16 WBC (3.8-10.6) k/uL RBC (3.80-5.40) m/uL Hgb (11.4-16.0) gm/dL Hct (34.0-46.0) % RDW (11.5-15.5) % APTT (22.0-30.0) sec Chloride (98-107) mmol/L BUN (7-17) mg/dL Glucose (74-99) mg/dL POC Glucose (mg/dL) 177 H 165 H 191 H (75-99) mg/dL Albumin (3.5-5.0) g/dL Urine Glucose (UA) (Negative) Urine Ketones (Negative) Urine Blood (Negative) Hyaline Casts (0-2) /lpf Urine Mucus (None) /hpf 01/11/20 01/11/20 01/11/20 Range/Units 01:05 02:00 02:04 WBC (3.8-10.6) k/uL RBC (3.80-5.40) m/uL Hgb (11.4-16.0) gm/dL Hct (34.0-46.0) % RDW (11.5-15.5) % APTT (22.0-30.0) sec Chloride 108 H (98-107) mmol/L BUN (7-17) mg/dL Glucose (74-99) mg/dL POC Glucose (mg/dL) 239 H 224 H (75-99) mg/dL Albumin (3.5-5.0) g/dL Urine Glucose (UA) (Negative) Urine Ketones (Negative) Urine Blood (Negative) Hyaline Casts (0-2) /lpf Urine Mucus (None) /hpf 01/11/20 01/11/20 01/11/20 Range/Units 03:11 04:52 05:00 WBC 11.0 H (3.8-10.6) k/uL RBC 3.30 L (3.80-5.40) m/uL Hgb 10.0 L D (11.4-16.0) gm/dL Hct 30.8 L (34.0-46.0) % RDW 15.8 H (11.5-15.5) % APTT (22.0-30.0) sec Chloride (98-107) mmol/L BUN (7-17) mg/dL Glucose (74-99) mg/dL POC Glucose (mg/dL) 244 H 258 H (75-99) mg/dL Albumin (3.5-5.0) g/dL Urine Glucose (UA) (Negative) Urine Ketones (Negative) Urine Blood (Negative) Hyaline Casts (0-2) /lpf Urine Mucus (None) /hpf 01/11/20 01/11/20 01/11/20 Range/Units 05:00 06:19 07:19 WBC (3.8-10.6) k/uL RBC (3.80-5.40) m/uL Hgb (11.4-16.0) gm/dL Hct (34.0-46.0) % RDW (11.5-15.5) % APTT (22.0-30.0) sec Chloride (98-107) mmol/L BUN 22 H (7-17) mg/dL Glucose 262 H (74-99) mg/dL POC Glucose (mg/dL) 268 H 278 H (75-99) mg/dL Albumin 3.4 L (3.5-5.0) g/dL Urine Glucose (UA) (Negative) Urine Ketones (Negative) Urine Blood (Negative) Hyaline Casts (0-2) /lpf Urine Mucus (None) /hpf 01/11/20 01/11/20 Range/Units 08:06 11:07 WBC (3.8-10.6) k/uL RBC (3.80-5.40) m/uL Hgb (11.4-16.0) gm/dL Hct (34.0-46.0) % RDW (11.5-15.5) % APTT (22.0-30.0) sec Chloride (98-107) mmol/L BUN (7-17) mg/dL Glucose (74-99) mg/dL POC Glucose (mg/dL) 335 H 362 H (75-99) mg/dL Albumin (3.5-5.0) g/dL Urine Glucose (UA) (Negative) Urine Ketones (Negative) Urine Blood (Negative) Hyaline Casts (0-2) /lpf Urine Mucus (None) /hpf Assessment and Plan Plan: 1. Diabetic ketoacidosis 2. Underlying history of diabetes mellitus type 1 maintained on insulin 3. Underlying history of peripheral vascular disease 4. Underlying history of hyperlipidemia 5. Underlying history of bipolar disorder and anxiety disorder 6. Gastroesophageal reflux disease At this time patient is maintained on IV fluid and IV insulin drip Will monitor closely and switched to subcu insulin when appropriate For DVT prophylaxis patient on subcu Lovenox For GI prophylaxis patient on famotidine Will follow closely
[2020-01-11 19:06] LABS: Glucose,Whole Blood 72 mg/dL (75-99)
[2020-01-11] MEDS: PANTOPRAZOLE 40 MG TABLET PO SCH (19:09)
[2020-01-11] MEDS: DIVALPROEX 250 MG TABLET.DR PO SCH ×2 (19:09→23:54)
[2020-01-11] MEDS: ENOXAPARIN 40 MG/0.4 ML SYRINGE SQ SCH (19:09)
[2020-01-11 19:39] LABS: Glucose,Whole Blood 83 mg/dL (75-99)
[2020-01-11 20:44] LABS: Glucose,Whole Blood 159 mg/dL (75-99)
[2020-01-11] MEDS ORDERED: LEVOFLOXACIN 500MG-D5W PMX 500 MG in DEXTROSE/WATER 1 100ML.BAG IVPB SCH (21:45)
[2020-01-11] MEDS: QUEtiapine 25 MG TAB PO SCH (23:54)
[2020-01-11] MEDS: QUEtiapine 100 MG TAB PO SCH (23:54)
[2020-01-11] MEDS: ATORVASTATIN 20 MG TAB PO SCH (23:54)
[2020-01-12] MEDS: ONDANSETRON 4 MG/2 ML VIAL IVP PRN (00:01)
[2020-01-12] MEDS: SODIUM CHLORIDE 0.9% 1,000 ML IV SCH ×3 (04:45→23:55)
[2020-01-12 05:35] LABS: Basophils % (A) 0 %; Eosinophils % (A) 0 %; HCT 32.2 % (34.0-46.0); HGB 10.1 gm/dL (11.4-16.0); Hypochromasia Slight; Lymphocytes % (A) 23 %; MCH 29.1 pg (25.0-35.0); MCHC 31.2 g/dL (31.0-37.0); MCV 93.3 fL (80.0-100.0); Mean Platelet Volume 7.8; Monocytes # (A) 0.6 k/uL (0-1.0); Monocytes % (A) 7 %; Neutrophils % (A) 68 %; Platelet Count 264 k/uL (150-450); RBC 3.45 m/uL (3.80-5.40); RDW 15.6 % (11.5-15.5); WBC 8.7 k/uL (3.8-10.6)
[2020-01-12 05:44] LABS: Albumin 3.3 g/dL (3.5-5.0); Calcium 8.9 mg/dL (8.4-10.2); Potassium 4.4 mmol/L (3.5-5.1); Total Bilirubin 0.4 mg/dL (0.2-1.3); Total Protein 6.7 g/dL (6.3-8.2)
[2020-01-12 06:43] LABS: Glucose,Whole Blood 374 mg/dL (75-99)
[2020-01-12] MEDS: INSULIN DETEMIR (LEVEMIR) 100 UNIT/ML SYR SQ SCH (06:58)
[2020-01-12] MEDS: INSULIN ASPART (NovoLOG) 100 UNIT/ML VIAL SQ SCH ×4 (06:58→20:41)
[2020-01-12] MEDS: METOCLOPRAMIDE 10 MG TAB PO SCH ×3 (06:58→17:23)
[2020-01-12] MEDS: PANTOPRAZOLE 40 MG TABLET PO SCH (06:58)
[2020-01-12] MEDS ORDERED: INSULIN DETEMIR (LEVEMIR) 100 UNIT/ML SYR SQ SCH (07:00)
[2020-01-12] MEDS: ALBUTEROL NEBULIZED 2.5 MG/3 ML INHALATION PRN (07:22)
[2020-01-12] MEDS: ASPIRIN 81 MG PO SCH (09:34)
[2020-01-12] MEDS: DIVALPROEX 250 MG TABLET.DR PO SCH ×3 (09:34→21:41)
[2020-01-12] MEDS: LOSARTAN 50 MG TAB PO SCH (09:35)
[2020-01-12] MEDS: DULoxetine HCL 60 MG CAPSULE.DR PO SCH (09:35)
[2020-01-12] MEDS: ENOXAPARIN 40 MG/0.4 ML SYRINGE SQ SCH (09:35)
[2020-01-12] MEDS: FAMOTIDINE 20 MG TAB PO SCH (09:35)
[2020-01-12] MEDS: QUEtiapine 25 MG TAB PO SCH ×2 (09:35→21:41)
[2020-01-12 10:04] VITALS: BMI 20.6
[2020-01-12 11:17] LABS: Glucose,Whole Blood 222 mg/dL (75-99)
--- NOTE | 2020-01-12 14:12 | P.PN ---
Subjective Progress Note Date: 01/12/20 Principal diagnosis: Acute DKA. This is a 59-year-old female with multiple comorbidities including type 1 diabetes, brittle, coronary artery disease, COPD, recurrent admissions with diabetic ketoacidosis, history of DVT, dyslipidemia, hypertension, previous CA, diabetic foot ulcers, previous history of osteomyelitis, history of CVA, chronic kidney disease, patient was brought into the hospital with a few days' history of nausea vomiting and abdominal pain. Workup revealed evidence of hyperglycemia and diabetic ketoacidosis with positive ketones. Blood sugar was as high as 542. Patient had a significant anion gap metabolic acidosis, admitted to the ICU, placed on the DKA protocol, and I was asked to see her on consultation. Overnight, the patient responded well to the DKA protocol, and this morning her anion gap has closed, I have discontinued her IV insulin, and recommended insulin as per sliding scale subcu, and started the patient back on her usual Lantus insulin dose daily of 16 units. Patient is not a great historian, noted to be relatively asymptomatic this morning, hence I plan to transfer the patient out of the ICU to a regular medical floor, and to be followed by her admitting physician. Reevaluated today on 01/12/20, patient remains in the ICU as an overflow. Feeling better, she is on room air, she is off IV fluids because she has a very poor peripheral venous access. And patient will have IV access/midline will be placed today. If not I will go ahead and place a central line. Patient is presently an overflow in the ICU, doing well, pro-calcitonin level is elevated, hence will continue empiric antibiotics for her presumptive pneumonia. This is likely healthcare acquired pneumonia because the patient was recently and out of the hospital quite frequently. CBC is normal electrolytes are normal. Objective - Vital Signs Vital signs: Vital Signs Temp 97.8 F 01/12/20 12:00 Pulse 86 01/12/20 12:00 Resp 14 01/12/20 12:00 BP 129/93 01/12/20 12:00 Pulse Ox 95 01/12/20 06:00 Intake & Output 01/11/20 01/12/20 01/12/20 18:59 06:59 18:59 Intake Total 450 350 200 Output Total 775 670 490 Balance -325 -320 -290 Weight 51.1 kg Intake: IV 150 D5-0.45% NaCl with KCl 150 20Meq/l 1,000 ml @ 150 mls/hr IV .Q6H40M [facility] Rx# :[id number] Intake, IV Titration 300 350 200 Amount Sodium Chloride 0.9% 1, 300 350 200 000 ml @ 100 mls/hr IV . Q10H [facility] Rx#:[id number] Output: Urine 775 670 490 Other: Voiding Method Indwelling Catheter Indwelling Catheter Indwelling Catheter # Bowel Movements 1 - Exam Physical Exam: Revealed 59-year-old female in no distress. HEENT:[Neck is supple.] [No neck masses.] [No thyromegaly.] [No JVD.] PERRLA, EOMI, dry mucous membranes noted. Chest: [Clear throughout, no crackles, no rhonchi, no wheezes.] Cardiac Exam: [Normal S1 and S2, no S3 gallop, no murmur.] Abdomen: [Soft, minimal lower abdominal tenderness, no rebound, no guarding, positive bowel sounds. Extremities: [No clubbing, no edema, no cyanosis.] Multiple toes amputations noted in the past. Neurological Exam: Patient is oriented 1, confused, moves all extremities. Psychiatric: Depressed mood, blunt affect, questionable mental status. - Labs CBC & Chem 7: 01/12/20 04:39 01/12/20 04:39 Labs: Abnormal Lab Results - Last 24 Hours (Table) 01/11/20 01/11/20 01/11/20 Range/Units 05:00 19:05 20:43 RBC (3.80-5.40) m/uL Hgb (11.4-16.0) gm/dL Hct (34.0-46.0) % RDW (11.5-15.5) % Sodium (137-145) mmol/L BUN (7-17) mg/dL Creatinine (0.52-1.04) mg/dL Glucose (74-99) mg/dL POC Glucose (mg/dL) 72 L 159 H (75-99) mg/dL Albumin (3.5-5.0) g/dL Procalcitonin 1.79 H (0.02-0.09) ng/mL 01/12/20 01/12/20 01/12/20 Range/Units 04:39 04:39 06:41 RBC 3.45 L (3.80-5.40) m/uL Hgb 10.1 L (11.4-16.0) gm/dL Hct 32.2 L (34.0-46.0) % RDW 15.6 H (11.5-15.5) % Sodium 136 L (137-145) mmol/L BUN 23 H (7-17) mg/dL Creatinine 1.06 H (0.52-1.04) mg/dL Glucose 310 H (74-99) mg/dL POC Glucose (mg/dL) 374 H (75-99) mg/dL Albumin 3.3 L (3.5-5.0) g/dL Procalcitonin (0.02-0.09) ng/mL 01/12/20 Range/Units 11:16 RBC (3.80-5.40) m/uL Hgb (11.4-16.0) gm/dL Hct (34.0-46.0) % RDW (11.5-15.5) % Sodium (137-145) mmol/L BUN (7-17) mg/dL Creatinine (0.52-1.04) mg/dL Glucose (74-99) mg/dL POC Glucose (mg/dL) 222 H (75-99) mg/dL Albumin (3.5-5.0) g/dL Procalcitonin (0.02-0.09) ng/mL Assessment and Plan Assessment: Impression: Acute diabetic ketoacidosis. Resolved. Acute healthcare acquired pneumonia involving left lower lobe. History of hypertension. History of depression. History of CVA. Involving MCA/RUSTAM vascular territory with history of left hemiparesis arm greater than leg. Brittle type 1 diabetes. Benign essential hypertension History of peripheral vessel occlusive disease involving the lower extremities. History of coronary artery disease and previous coronary stenting. History of COPD, presently in active. History of right foot osteomyelitis. Recommendation: Patient responded well to the DKA protocol. Continue insulin subcutaneously as per scale. Lantus insulin once daily. Resume home meds. Continue antibiotics for left lower lobe pneumonia, could be switched to oral antibiotics possibly Levaquin upon discharge. Patient will be cleared from my perspective to transfer out of the ICU and possible discharge home in the next 24 hours. Time with Patient: Less than 30
[2020-01-12] MEDS ORDERED: LACTULOSE 20 GM/30 ML CUP PO ONE (14:43)
--- NOTE | 2020-01-12 14:48 | P.PN ---
Subjective Progress Note Date: 01/12/20 Melva Jackson, is a 59-year-old female who was brought in to [facility] emergency room via EMS, was elevated blood glucose of 542, elevated BUN and creatinine of 49 and 1.54 and positive ketones, patient was started on IV fluid, IV insulin drip and was admitted to intensive care unit for diabetic ketoacidosis. Patient was complaining of nausea, otherwise she denies any complaints there is no fever or chills no headache or dizziness no chest pain no shortness of breath no cough no abdominal pain no diarrhea no burning with urination no frequency or urgency and no hematuria. Patient has known history of diabetes mellitus type 1 she also has known history of peripheral vascular disease with previous history of toe amputation, history of bipolar disorder, history of hyperlipidemia, and history of anxiety disorder On 01/12/2020, patient was seen and examined in the ICU, she is alert and oriented 3 in no apparent distress, she is complaining of nausea and vomiting and very poor oral intake, otherwise she denies any complaints, there is no fever or chills no headache or dizziness no chest pain no shortness of breath no cough no abdominal pain no diarrhea no burning with urination no frequency or urgency and no hematuria Objective - Vital Signs Vital signs: Vital Signs Temp 97.8 F 01/12/20 12:00 Pulse 86 01/12/20 12:00 Resp 14 01/12/20 12:00 BP 129/93 01/12/20 12:00 Pulse Ox 95 01/12/20 06:00 Intake & Output 01/11/20 01/12/20 01/12/20 18:59 06:59 18:59 Intake Total 450 350 200 Output Total 775 670 490 Balance -325 -320 -290 Weight 51.1 kg Intake: IV 150 D5-0.45% NaCl with KCl 150 20Meq/l 1,000 ml @ 150 mls/hr IV .Q6H40M [facility] Rx# :[id number] Intake, IV Titration 300 350 200 Amount Sodium Chloride 0.9% 1, 300 350 200 000 ml @ 100 mls/hr IV . Q10H [facility] Rx#:[id number] Output: Urine 775 670 490 Other: Voiding Method Indwelling Catheter Indwelling Catheter Indwelling Catheter # Bowel Movements 1 - Exam In general patient is alert and oriented 3 in no apparent distress HEENT head normocephalic and atraumatic Neck is supple no JVD no goiter no lymphadenopathy Chest exam reveals a few scattered rhonchi no wheezing Cardiac exam reveals regular heart sounds no gallops no murmurs Abdomen is soft nontender no organomegaly with normal bowel sounds Extremity exam reveals no edema no cyanosis or clubbing - Labs CBC & Chem 7: 01/12/20 04:39 01/12/20 04:39 Labs: Abnormal Lab Results - Last 24 Hours (Table) 01/11/20 01/11/20 01/11/20 Range/Units 05:00 19:05 20:43 RBC (3.80-5.40) m/uL Hgb (11.4-16.0) gm/dL Hct (34.0-46.0) % RDW (11.5-15.5) % Sodium (137-145) mmol/L BUN (7-17) mg/dL Creatinine (0.52-1.04) mg/dL Glucose (74-99) mg/dL POC Glucose (mg/dL) 72 L 159 H (75-99) mg/dL Albumin (3.5-5.0) g/dL Procalcitonin 1.79 H (0.02-0.09) ng/mL 01/12/20 01/12/20 01/12/20 Range/Units 04:39 04:39 06:41 RBC 3.45 L (3.80-5.40) m/uL Hgb 10.1 L (11.4-16.0) gm/dL Hct 32.2 L (34.0-46.0) % RDW 15.6 H (11.5-15.5) % Sodium 136 L (137-145) mmol/L BUN 23 H (7-17) mg/dL Creatinine 1.06 H (0.52-1.04) mg/dL Glucose 310 H (74-99) mg/dL POC Glucose (mg/dL) 374 H (75-99) mg/dL Albumin 3.3 L (3.5-5.0) g/dL Procalcitonin (0.02-0.09) ng/mL 01/12/20 Range/Units 11:16 RBC (3.80-5.40) m/uL Hgb (11.4-16.0) gm/dL Hct (34.0-46.0) % RDW (11.5-15.5) % Sodium (137-145) mmol/L BUN (7-17) mg/dL Creatinine (0.52-1.04) mg/dL Glucose (74-99) mg/dL POC Glucose (mg/dL) 222 H (75-99) mg/dL Albumin (3.5-5.0) g/dL Procalcitonin (0.02-0.09) ng/mL Assessment and Plan Plan: 1. Diabetic ketoacidosis 2. Underlying history of diabetes mellitus type 1 maintained on insulin 3. Underlying history of peripheral vascular disease 4. Underlying history of hyperlipidemia 5. Underlying history of bipolar disorder and anxiety disorder 6. Gastroesophageal reflux disease 7. Nausea and vomiting likely related to gastroparesis Will consult gastroenterology, continue with Reglan and Zofran at this time At this time patient is maintained on IV subcu insulin Consult gastroenterology for nausea and vomiting For DVT prophylaxis patient on subcu Lovenox For GI prophylaxis patient on famotidine Will follow closely
[2020-01-12] MEDS ORDERED: hydrALAZINE HCL 20 MG/ML 1 ML VIAL IVP PRN (17:10)
[2020-01-12 17:13] LABS: Glucose,Whole Blood 114 mg/dL (75-99)
[2020-01-12 20:25] LABS: Glucose,Whole Blood 103 mg/dL (75-99)
[2020-01-12] MEDS: QUEtiapine 100 MG TAB PO SCH (21:41)
[2020-01-12] MEDS: ATORVASTATIN 20 MG TAB PO SCH (21:41)
--- NOTE | 2020-01-12 23:45 | CONS ---
CONSULTATION DATE OF DICTATION: January 12, 2020. REASON FOR CONSULTATION: Nausea and vomiting. HISTORY OF PRESENT ILLNESS: The patient is a 59-year-old pleasant white female with type 2 diabetes mellitus admitted to hospital with uncontrolled hyperglycemia and DKA. She was having intense abdominal pain associated with nausea, vomiting, not feeling well and in the ER was noted to have a blood sugar of 552 and was in DKA. Presently in the intensive care unit. She is feeling better. She is on a clear liquid diet. As per the nursing staff, she had 2 episodes of clear bilious emesis this morning. Abdominal pain is improving. No coffee-ground emesis. PAST MEDICAL HISTORY: Significant for diabetes mellitus, hypothyroidism, hypertension, coronary artery disease, congestive heart failure, history of DVT in the past, gastroesophageal reflux disease, degenerative joint disease. PAST SURGICAL HISTORY: , appendectomy, cholecystectomy, hysterectomy, cardiac cath with stent placement. MEDICATIONS: Medications at home include Cymbalta, Lipitor, Seroquel, vitamin C, aspirin, iron sulfate, Humalog, Depakote, Xanax, Ventolin, Zofran, Protonix, Seroquel, hydrocodone. FAMILY HISTORY: Father coronary artery disease. Mother COPD. SOCIAL HISTORY: Chronic smoker. No alcohol use. ALLERGIES: KEFLEX, MORPHINE, PENICILLIN, PHENOBARB, AMLODIPINE. REVIEW OF SYSTEMS: CARDIOPULMONARY: No chest pain or shortness of breath. No dysuria or hematuria. Musculoskeletal: Chronic back pain. Neurology: Anxiety, depression. ENT: Vision unremarkable. CONSTITUTIONAL: No recent weight loss. No fever, chills, night sweats. GI: As mentioned above. HEMATOLOGY unremarkable. PSYCHIATRIC: History of anxiety, depression. PHYSICAL EXAMINATION: She appears comfortable. No apparent distress. VITAL SIGNS: Stable. Blood pressure 120/69, pulse rate 72, temperature 97.7. HEENT examination unremarkable. Conjunctivae pink. Sclerae anicteric. Oral cavity no lesions. NECK no JVD or lymph node enlargement. CHEST was clear to auscultation. HEART: Regular rate and rhythm. ABDOMEN: Soft. There was very minimal tenderness in the epigastric area. Bowel sounds are positive. No organomegaly. EXTREMITIES: No pedal edema. SKIN no rashes. NEURO: She is alert and oriented x3. No focal deficits. LABS: WBC 10.7, hemoglobin 12.1, platelets normal. Basic metabolic panel showed a blood sugar of 562 and today is 310, BUN 23, creatinine 1.06. Lipase is normal. WBC today 8.7, hemoglobin 10.9, platelets 264. IMPRESSION: 1. Acute DKA, improving. 2. Nausea, vomiting for the last 3 days duration, most likely related to acute DKA. The patient may have a component of diabetic gastroparesis. She still has some nausea today, but able to clear liquids well. Presently remains on IV Protonix as well as Reglan. 3. Longstanding history of type 2 diabetes mellitus. 4. Acute kidney injury with mild elevation of BUN and creatinine, which is improving. RECOMMENDATIONS: 1. Continue with a clear liquid diet. 2. Continue Protonix 40 mg twice daily. 3. Small frequent meals. 4. We will advance the diet as tolerated based on symptoms. 5. No plans on any endoscopic intervention at the present time. 6. We will follow with you closely. Thank you for this consultation. MAHAMED / CHRISTOFER: [id number] /
[2020-01-12] MEDS: LEVOFLOXACIN 250MG-D5W PMX 250 MG in DEXTROSE/WATER 1 50ML.BAG IVPB SCH (23:54)
[2020-01-13 04:59] LABS: Basophils % (A) 0 %; Eosinophils # (A) 0.1 k/uL (0-0.7); Eosinophils % (A) 1 %; HGB 9.9 gm/dL (11.4-16.0); Hypochromasia Slight; Lymphocytes # (A) 2.8 k/uL (1.0-4.8); Lymphocytes % (A) 41 %; MCH 29.4 pg (25.0-35.0); MCHC 30.9 g/dL (31.0-37.0); MCV 95.1 fL (80.0-100.0); Mean Platelet Volume 7.6; Monocytes # (A) 0.4 k/uL (0-1.0); Monocytes % (A) 5 %; Neutrophils # (A) 3.5 k/uL (1.3-7.7); Neutrophils % (A) 51 %; Platelet Count 244 k/uL (150-450); RBC 3.37 m/uL (3.80-5.40); RDW 15.7 % (11.5-15.5); WBC 6.8 k/uL (3.8-10.6)
[2020-01-13 05:08] LABS: Calcium 8.7 mg/dL (8.4-10.2); Potassium 4.3 mmol/L (3.5-5.1); Total Bilirubin 0.3 mg/dL (0.2-1.3); Total Protein 6.4 g/dL (6.3-8.2)
[2020-01-13 06:42] LABS: Glucose,Whole Blood 294 mg/dL (75-99)
[2020-01-13] MEDS: PANTOPRAZOLE 40 MG TABLET PO SCH (06:43)
[2020-01-13] MEDS: METOCLOPRAMIDE 10 MG TAB PO SCH ×3 (06:43→17:39)
[2020-01-13] MEDS: INSULIN ASPART (NovoLOG) 100 UNIT/ML VIAL SQ SCH ×4 (06:43→20:40)
[2020-01-13] MEDS: INSULIN DETEMIR (LEVEMIR) 100 UNIT/ML SYR SQ SCH ×2 (06:43→21:15)
[2020-01-13] MEDS: QUEtiapine 25 MG TAB PO SCH ×2 (08:13→20:48)
[2020-01-13] MEDS: LOSARTAN 50 MG TAB PO SCH (08:13)
[2020-01-13] MEDS: DIVALPROEX 250 MG TABLET.DR PO SCH ×3 (08:13→20:48)
[2020-01-13] MEDS: FAMOTIDINE 20 MG TAB PO SCH (08:13)
[2020-01-13] MEDS: ASPIRIN 81 MG PO SCH (08:13)
[2020-01-13] MEDS: ENOXAPARIN 40 MG/0.4 ML SYRINGE SQ SCH (08:13)
[2020-01-13] MEDS: DULoxetine HCL 60 MG CAPSULE.DR PO SCH (08:21)
[2020-01-13] MEDS: SODIUM CHLORIDE 0.9% 1,000 ML IV SCH ×2 (09:58→20:49)
[2020-01-13 10:31] LABS: Glucose,Whole Blood 78 mg/dL (75-99)
--- NOTE | 2020-01-13 10:57 | XR ---
EXAMINATION TYPE: XR chest 1V portable DATE OF EXAM: 01/13/2020 CLINICAL HISTORY: Left lower lobe pneumonia progress study. TECHNIQUE: Single AP portable upright view of the chest is obtained. COMPARISON: Chest x-ray from 3 days earlier FINDINGS: There is persistent patchy but improved left basilar opacity. No new focal airspace opacit y, pleural effusion, or pneumothorax seen bilaterally. Cardiac silhouette size remains within normal limits. Osseous structures are intact. IMPRESSION: Improving left basilar acute infiltrate. No new infiltrates seen.
[2020-01-13 11:45] LABS: Glucose,Whole Blood 58 mg/dL (75-99)
[2020-01-13 12:09] LABS: Glucose,Whole Blood 55 mg/dL (75-99)
[2020-01-13 12:23] LABS: Glucose,Whole Blood 101 mg/dL (75-99)
[2020-01-13 12:39] LABS: Glucose,Whole Blood 175 mg/dL (75-99)
--- NOTE | 2020-01-13 12:56 | P.PN ---
Subjective Progress Note Date: 01/13/20 Melva Jackson, is a 59-year-old female who was brought in to [facility] emergency room via EMS, was elevated blood glucose of 542, elevated BUN and creatinine of 49 and 1.54 and positive ketones, patient was started on IV fluid, IV insulin drip and was admitted to intensive care unit for diabetic ketoacidosis. Patient was complaining of nausea, otherwise she denies any complaints there is no fever or chills no headache or dizziness no chest pain no shortness of breath no cough no abdominal pain no diarrhea no burning with urination no frequency or urgency and no hematuria. Patient has known history of diabetes mellitus type 1 she also has known history of peripheral vascular disease with previous history of toe amputation, history of bipolar disorder, history of hyperlipidemia, and history of anxiety disorder On 01/12/2020, patient was seen and examined in the ICU, she is alert and oriented 3 in no apparent distress, she is complaining of nausea and vomiting and very poor oral intake, otherwise she denies any complaints, there is no fever or chills no headache or dizziness no chest pain no shortness of breath no cough no abdominal pain no diarrhea no burning with urination no frequency or urgency and no hematuria. On 01/13/2020 patient was seen and examined in the ICU she is alert and oriented 3 in no distress she had an episode of hypoglycemia this morning her glucose was slightly elevated and she received 5 units of NovoLog before her breakfast however patient refused to eat breakfast and subsequently she had an episode of hypoglycemia. Case was discussed in details with her nurse, at this time will check glucose prior to each meal but give the sliding scale insulin only after she eats at least 50% of her meal otherwise cancel the insulin dose and recheck again prior to the next meal. Patient is still complaining of some nausea otherwise no vomiting she has some abdominal pain no fever or chills no headache or dizziness no cough no chest pain no shortness of breath no diarrhea no burning with urination no frequency or urgency and no hematuria Objective - Vital Signs Vital signs: Vital Signs Temp 97.7 F 01/13/20 08:00 Pulse 92 01/13/20 08:00 Resp 18 01/13/20 08:00 BP 128/80 01/13/20 08:00 Pulse Ox 96 01/13/20 08:00 Intake & Output 01/12/20 01/13/20 01/13/20 18:59 06:59 18:59 Intake Total 770 1140 800 Output Total 710 340 475 Balance 60 800 325 Weight 51.1 kg Intake: IV 900 800 Sodium Chloride 0.9% 1, 900 800 000 ml @ 100 mls/hr IV . Q10H [facility] Rx#:[id number] Intake, IV Titration 600 Amount Sodium Chloride 0.9% 1, 600 000 ml @ 100 mls/hr IV . Q10H [facility] Rx#:[id number] Oral 170 240 Output: Urine 710 340 475 Other: Voiding Method Indwelling Catheter Indwelling Catheter Indwelling Catheter - Exam In general patient is alert and oriented 3 in no apparent distress HEENT head normocephalic and atraumatic Neck is supple no JVD no goiter no lymphadenopathy Chest exam reveals a few scattered rhonchi no wheezing Cardiac exam reveals regular heart sounds no gallops no murmurs Abdomen is soft nontender no organomegaly with normal bowel sounds Extremity exam reveals no edema no cyanosis or clubbing - Labs CBC & Chem 7: 01/13/20 04:40 01/13/20 04:40 Labs: Abnormal Lab Results - Last 24 Hours (Table) 01/12/20 01/12/20 01/13/20 Range/Units 17:12 20:24 04:40 RBC 3.37 L (3.80-5.40) m/uL Hgb 9.9 L (11.4-16.0) gm/dL Hct 32.0 L (34.0-46.0) % MCHC 30.9 L (31.0-37.0) g/dL RDW 15.7 H (11.5-15.5) % Sodium (137-145) mmol/L BUN (7-17) mg/dL Creatinine (0.52-1.04) mg/dL Glucose (74-99) mg/dL POC Glucose (mg/dL) 114 H 103 H (75-99) mg/dL Albumin (3.5-5.0) g/dL 01/13/20 01/13/20 01/13/20 Range/Units 04:40 06:39 11:44 RBC (3.80-5.40) m/uL Hgb (11.4-16.0) gm/dL Hct (34.0-46.0) % MCHC (31.0-37.0) g/dL RDW (11.5-15.5) % Sodium 136 L (137-145) mmol/L BUN 28 H (7-17) mg/dL Creatinine 1.24 H (0.52-1.04) mg/dL Glucose 172 H (74-99) mg/dL POC Glucose (mg/dL) 294 H 58 L (75-99) mg/dL Albumin 3.0 L (3.5-5.0) g/dL 01/13/20 01/13/20 01/13/20 Range/Units 12:06 12:21 12:37 RBC (3.80-5.40) m/uL Hgb (11.4-16.0) gm/dL Hct (34.0-46.0) % MCHC (31.0-37.0) g/dL RDW (11.5-15.5) % Sodium (137-145) mmol/L BUN (7-17) mg/dL Creatinine (0.52-1.04) mg/dL Glucose (74-99) mg/dL POC Glucose (mg/dL) 55 L 101 H 175 H (75-99) mg/dL Albumin (3.5-5.0) g/dL Assessment and Plan Plan: 1. Diabetic ketoacidosis 2. Underlying history of diabetes mellitus type 1 maintained on insulin 3. Underlying history of peripheral vascular disease 4. Underlying history of hyperlipidemia 5. Underlying history of bipolar disorder and anxiety disorder 6. Gastroesophageal reflux disease 7. Nausea and vomiting likely related to gastroparesis Will consult gastroenterology, continue with Reglan and Zofran at this time At this time patient is maintained on IV subcu insulin Consult gastroenterology for nausea and vomiting For DVT prophylaxis patient on subcu Lovenox For GI prophylaxis patient on famotidine Will follow closely
--- NOTE | 2020-01-13 12:56 | P.PN ---
Subjective Progress Note Date: 01/13/20 Principal diagnosis: Acute DKA. This is a 59-year-old female with multiple comorbidities including type 1 diabetes, brittle, coronary artery disease, COPD, recurrent admissions with diabetic ketoacidosis, history of DVT, dyslipidemia, hypertension, previous VT, diabetic foot ulcers, previous history of osteomyelitis, history of CVA, chronic kidney disease, patient was brought into the hospital with a few days' history of nausea vomiting and abdominal pain. Workup revealed evidence of hyperglycemia and diabetic ketoacidosis with positive ketones. Blood sugar was as high as 542. Patient had a significant anion gap metabolic acidosis, admitted to the ICU, placed on the DKA protocol, and I was asked to see her on consultation. Overnight, the patient responded well to the DKA protocol, and this morning her anion gap has closed, I have discontinued her IV insulin, and recommended insulin as per sliding scale subcu, and started the patient back on her usual Lantus insulin dose daily of 16 units. Patient is not a great historian, noted to be relatively asymptomatic this morning, hence I plan to transfer the patient out of the ICU to a regular medical floor, and to be followed by her admitting physician. Reevaluated today on 01/12/20, patient remains in the ICU as an overflow. Feeling better, she is on room air, she is off IV fluids because she has a very poor peripheral venous access. And patient will have IV access/midline will be placed today. If not I will go ahead and place a central line. Patient is presently an overflow in the ICU, doing well, pro-calcitonin level is elevated, hence will continue empiric antibiotics for her presumptive pneumonia. This is likely healthcare acquired pneumonia because the patient was recently and out of the hospital quite frequently. CBC is normal electrolytes are normal. Reevaluated today on 01/13/20, patient remains in the ICU as an overflow, her sugars are under control. Patient is on room air, in no distress, she had a midline placed yesterday, and did not require a central line placement. She is on IV fluid at 100 mL per hour. And she is still receiving antibiotics for presumptive left lower lobe pneumonia. Patient has no active pulmonary symptoms. CBC showed improvement in her leukocytosis. Electrolytes are normal. BUN is 28 creatinine is 1.4. Objective - Vital Signs Vital signs: Vital Signs Temp 97.7 F 01/13/20 08:00 Pulse 92 01/13/20 08:00 Resp 18 01/13/20 08:00 BP 128/80 01/13/20 08:00 Pulse Ox 96 01/13/20 08:00 Intake & Output 01/12/20 01/13/20 01/13/20 18:59 06:59 18:59 Intake Total 770 1140 800 Output Total 710 340 475 Balance 60 800 325 Weight 51.1 kg Intake: IV 900 800 Sodium Chloride 0.9% 1, 900 800 000 ml @ 100 mls/hr IV . Q10H [facility] Rx#:[id number] Intake, IV Titration 600 Amount Sodium Chloride 0.9% 1, 600 000 ml @ 100 mls/hr IV . Q10H [facility] Rx#:[id number] Oral 170 240 Output: Urine 710 340 475 Other: Voiding Method Indwelling Catheter Indwelling Catheter Indwelling Catheter - Exam Physical Exam: Revealed 59-year-old female in no distress. On room air. HEENT:[Neck is supple.] [No neck masses.] [No thyromegaly.] [No JVD.] PERRLA, EOMI, dry mucous membranes noted. Chest: [Clear throughout, no crackles, no rhonchi, no wheezes.] Cardiac Exam: [Normal S1 and S2, no S3 gallop, no murmur.] Abdomen: [Soft, minimal lower abdominal tenderness, no rebound, no guarding, positive bowel sounds. Extremities: [No clubbing, no edema, no cyanosis.] Multiple toes amputations noted in the past. Neurological Exam: Patient is oriented 1, confused, moves all extremities. Psychiatric: Depressed mood, blunt affect, questionable mental status. - Labs CBC & Chem 7: 01/13/20 04:40 01/13/20 04:40 Labs: Abnormal Lab Results - Last 24 Hours (Table) 01/12/20 01/12/20 01/13/20 Range/Units 17:12 20:24 04:40 RBC 3.37 L (3.80-5.40) m/uL Hgb 9.9 L (11.4-16.0) gm/dL Hct 32.0 L (34.0-46.0) % MCHC 30.9 L (31.0-37.0) g/dL RDW 15.7 H (11.5-15.5) % Sodium (137-145) mmol/L BUN (7-17) mg/dL Creatinine (0.52-1.04) mg/dL Glucose (74-99) mg/dL POC Glucose (mg/dL) 114 H 103 H (75-99) mg/dL Albumin (3.5-5.0) g/dL 01/13/20 01/13/20 01/13/20 Range/Units 04:40 06:39 11:44 RBC (3.80-5.40) m/uL Hgb (11.4-16.0) gm/dL Hct (34.0-46.0) % MCHC (31.0-37.0) g/dL RDW (11.5-15.5) % Sodium 136 L (137-145) mmol/L BUN 28 H (7-17) mg/dL Creatinine 1.24 H (0.52-1.04) mg/dL Glucose 172 H (74-99) mg/dL POC Glucose (mg/dL) 294 H 58 L (75-99) mg/dL Albumin 3.0 L (3.5-5.0) g/dL 01/13/20 01/13/20 01/13/20 Range/Units 12:06 12:21 12:37 RBC (3.80-5.40) m/uL Hgb (11.4-16.0) gm/dL Hct (34.0-46.0) % MCHC (31.0-37.0) g/dL RDW (11.5-15.5) % Sodium (137-145) mmol/L BUN (7-17) mg/dL Creatinine (0.52-1.04) mg/dL Glucose (74-99) mg/dL POC Glucose (mg/dL) 55 L 101 H 175 H (75-99) mg/dL Albumin (3.5-5.0) g/dL Assessment and Plan Assessment: Impression: Acute diabetic ketoacidosis. Resolved. Acute healthcare acquired pneumonia involving left lower lobe. History of hypertension. History of depression. History of CVA. Involving MCA/RUSTAM vascular territory with history of left hemiparesis arm greater than leg. Brittle type 1 diabetes. Benign essential hypertension History of peripheral vessel occlusive disease involving the lower extremities. History of coronary artery disease and previous coronary stenting. History of COPD, presently in active. History of right foot osteomyelitis. Recommendation: Continue insulin subcutaneously as per scale. Lantus insulin once daily. Resume home meds. Continue antibiotics for left lower lobe pneumonia, could be switched to oral antibiotics possibly Levaquin upon discharge. Transfer patient out of the ICU to a regular medical floor. We'll continue to follow as needed Time with Patient: Less than 30
[2020-01-13 17:05] LABS: Glucose,Whole Blood 43 mg/dL (75-99)
[2020-01-13 17:19] LABS: Glucose,Whole Blood 52 mg/dL (75-99)
[2020-01-13 17:34] LABS: Glucose,Whole Blood 97 mg/dL (75-99)
--- NOTE | 2020-01-13 19:54 | P.PN ---
Subjective Progress Note Date: 01/13/20 Principal diagnosis: Nausea and vomiting, DKA Patient was seen lying in bed reporting that she is tolerated diet today. No reports of nausea or vomiting today. Objective - Vital Signs Vital signs: Vital Signs Temp 97.7 F 01/13/20 08:00 Pulse 92 01/13/20 08:00 Resp 18 01/13/20 08:00 BP 128/80 01/13/20 08:00 Pulse Ox 96 01/13/20 08:00 Intake & Output 01/12/20 01/13/20 01/13/20 18:59 06:59 18:59 Intake Total 770 1140 Output Total 710 340 Balance 60 800 Weight 51.1 kg Intake: IV 900 Sodium Chloride 0.9% 1, 900 000 ml @ 100 mls/hr IV . Q10H [facility] Rx#:[id number] Intake, IV Titration 600 Amount Sodium Chloride 0.9% 1, 600 000 ml @ 100 mls/hr IV . Q10H [facility] Rx#:[id number] Oral 170 240 Output: Urine 710 340 Other: Voiding Method Indwelling Catheter Indwelling Catheter Indwelling Catheter - Exam On physical examination, patient appears comfortable in no apparent distress. HEAD: Normocephalic, atraumatic. EYES: No scleral icterus. No conjunctival injection. MOUTH: No lesions, tongue midline. NECK: Trachea midline, no gross abnormalities. ABDOMEN: Soft, nontender to palpation. Bowel sounds are positive. No organomegaly. No guarding or rigidity. EXTREMITIES: No pedal edema. SKIN: No rashes, no jaundice. NEUROLOGIC: Alert and oriented. No focal deficits. - Labs CBC & Chem 7: 01/13/20 04:40 01/13/20 04:40 Labs: Abnormal Lab Results - Last 24 Hours (Table) 01/12/20 01/12/20 01/13/20 Range/Units 17:12 20:24 04:40 RBC 3.37 L (3.80-5.40) m/uL Hgb 9.9 L (11.4-16.0) gm/dL Hct 32.0 L (34.0-46.0) % MCHC 30.9 L (31.0-37.0) g/dL RDW 15.7 H (11.5-15.5) % Sodium (137-145) mmol/L BUN (7-17) mg/dL Creatinine (0.52-1.04) mg/dL Glucose (74-99) mg/dL POC Glucose (mg/dL) 114 H 103 H (75-99) mg/dL Albumin (3.5-5.0) g/dL 01/13/20 01/13/20 01/13/20 Range/Units 04:40 06:39 11:44 RBC (3.80-5.40) m/uL Hgb (11.4-16.0) gm/dL Hct (34.0-46.0) % MCHC (31.0-37.0) g/dL RDW (11.5-15.5) % Sodium 136 L (137-145) mmol/L BUN 28 H (7-17) mg/dL Creatinine 1.24 H (0.52-1.04) mg/dL Glucose 172 H (74-99) mg/dL POC Glucose (mg/dL) 294 H 58 L (75-99) mg/dL Albumin 3.0 L (3.5-5.0) g/dL Assessment and Plan (1) Nausea & vomiting Narrative/Plan: 59-year-old female receiving treatment for diabetic ketoacidosis with consultation for nausea and vomiting. Suspicion a component of complaints are secondary to underlying gastroparesis, symptoms improved today with improved glycemic control. Current Visit: Yes Status: Acute Code(s): R11.2 - NAUSEA WITH VOMITING, UNSPECIFIED SNOMED Code(s): 84738137 (2) Abdominal pain Current Visit: No Status: Acute Code(s): R10.9 - UNSPECIFIED ABDOMINAL PAIN SNOMED Code(s): 48806320 Plan: Supportive care Okay to advance diet to low fiber low fat consistent carbohydrates as tolerated Discussed dietary modifications including small frequent meals with the patient Continue Protonix therapy Continue antiemetics Continue tight glycemic control No plans for endoscopy at this time Thank you for allowing us to participate in the care of the patient
[2020-01-13 20:35] LABS: Glucose,Whole Blood 91 mg/dL (75-99)
[2020-01-13] MEDS: QUEtiapine 100 MG TAB PO SCH (20:48)
[2020-01-13] MEDS: ATORVASTATIN 20 MG TAB PO SCH (20:48)
[2020-01-14] MEDS: LEVOFLOXACIN 250MG-D5W PMX 250 MG in DEXTROSE/WATER 1 50ML.BAG IVPB SCH (00:05)
[2020-01-14 01:33] LABS: Glucose,Whole Blood 90 mg/dL (75-99)
[2020-01-14 05:13] LABS: Basophils % (A) 0 %; Eosinophils % (A) 1 %; HCT 30.4 % (34.0-46.0); HGB 9.5 gm/dL (11.4-16.0); Lymphocytes # (A) 2.9 k/uL (1.0-4.8); Lymphocytes % (A) 49 %; MCH 29.2 pg (25.0-35.0); MCHC 31.3 g/dL (31.0-37.0); MCV 93.3 fL (80.0-100.0); Mean Platelet Volume 7.7; Monocytes # (A) 0.3 k/uL (0-1.0); Monocytes % (A) 6 %; Neutrophils # (A) 2.6 k/uL (1.3-7.7); Neutrophils % (A) 43 %; Platelet Count 210 k/uL (150-450); RBC 3.25 m/uL (3.80-5.40); RDW 15.4 % (11.5-15.5)
[2020-01-14 05:46] LABS: ALT 20 U/L (4-34); AST 38 U/L (14-36); African American GFR (CKD) >90 (>60 ml/min/1.73 sqM); Albumin 2.7 g/dL (3.5-5.0); Alkaline Phosphatase 65 U/L (38-126); Anion Gap 4 mmol/L; Blood Urea Nitrogen 15 mg/dL (7-17); Calcium 8.5 mg/dL (8.4-10.2); Carbon Dioxide 25 mmol/L (22-30); Chloride 108 mmol/L (98-107); Non-African American GFR(CKD) 87 (>60 ml/min/1.73 sqM); Potassium 3.3 mmol/L (3.5-5.1); Sodium 137 mmol/L (137-145); Total Bilirubin 0.3 mg/dL (0.2-1.3); Total Protein 5.7 g/dL (6.3-8.2)
[2020-01-14 05:59] LABS: Glucose 41 mg/dL (74-99)
[2020-01-14 06:01] LABS: Glucose,Whole Blood 58 mg/dL (75-99)
[2020-01-14] MEDS: INSULIN ASPART (NovoLOG) 100 UNIT/ML VIAL SQ SCH ×4 (06:02→21:01)
[2020-01-14 06:21] LABS: Glucose,Whole Blood 76 mg/dL (75-99)
[2020-01-14] MEDS: POTASSIUM CHLORIDE ER 20 MEQ TAB.ER PO SCH ×2 (06:29→08:42)
[2020-01-14] MEDS: METOCLOPRAMIDE 10 MG TAB PO SCH ×3 (06:29→17:57)
[2020-01-14] MEDS: PANTOPRAZOLE 40 MG TABLET PO SCH (06:30)
[2020-01-14] MEDS: SODIUM CHLORIDE 0.9% 1,000 ML IV SCH ×4 (06:30→17:57)
[2020-01-14] MEDS: ASPIRIN 81 MG PO SCH (08:42)
[2020-01-14] MEDS: LOSARTAN 50 MG TAB PO SCH (08:42)
[2020-01-14] MEDS: ENOXAPARIN 40 MG/0.4 ML SYRINGE SQ SCH (08:42)
[2020-01-14] MEDS: DULoxetine HCL 60 MG CAPSULE.DR PO SCH (08:42)
[2020-01-14] MEDS: FAMOTIDINE 20 MG TAB PO SCH (08:42)
[2020-01-14] MEDS: DIVALPROEX 250 MG TABLET.DR PO SCH ×3 (08:43→21:00)
[2020-01-14] MEDS: QUEtiapine 25 MG TAB PO SCH ×2 (08:43→21:00)
[2020-01-14 11:08] LABS: Glucose,Whole Blood 210 mg/dL (75-99)
--- NOTE | 2020-01-14 11:48 | P.PN ---
Subjective Progress Note Date: 01/14/20 Principal diagnosis: DKA The patient is seen today 01/14/2020 in follow-up in the intensive care unit. She is currently up in a wheelchair. Planning transfer to the regular medical floor. No acute events overnight. She is on room air. No shortness of breath cough or congestion. White count 6.0. Hemoglobin 9.5. Sodium 137. Potassium 3.3. Creatinine 0.76. She has had drops in her blood glucose down to 41. Currently 210. Levemir and Humalog being adjusted. Objective - Vital Signs Vital signs: Vital Signs Temp 98.5 F 01/14/20 10:04 Pulse 84 01/14/20 10:04 Resp 16 01/14/20 10:04 BP 116/78 01/14/20 10:04 Pulse Ox 95 01/14/20 10:04 Intake & Output 01/13/20 01/14/20 01/14/20 18:59 06:59 18:59 Intake Total 1500 1440 Output Total 825 1100 Balance 675 340 Intake: IV 1200 1200 Sodium Chloride 0.9% 1, 1200 1200 000 ml @ 100 mls/hr IV . Q10H [facility] Rx#:[id number] Oral 300 240 Output: Urine 825 1100 Other: Voiding Method Indwelling Catheter Indwelling Catheter Indwelling Catheter # Bowel Movements 1 - Exam Physical Exam: Revealed 59-year-old female in no distress. On room air. HEENT:[Neck is supple.] [No neck masses.] [No thyromegaly.] [No JVD.] PERRLA, EOMI, dry mucous membranes noted. Chest: [Clear throughout, no crackles, no rhonchi, no wheezes.] Cardiac Exam: [Normal S1 and S2, no S3 gallop, no murmur.] Abdomen: [Soft, minimal lower abdominal tenderness, no rebound, no guarding, positive bowel sounds. Extremities: [No clubbing, no edema, no cyanosis.] Multiple toes amputations noted in the past. Neurological Exam: Patient is oriented 1, confused, moves all extremities. Psychiatric: Depressed mood, blunt affect, questionable mental status. - Labs CBC & Chem 7: 01/14/20 05:04 01/14/20 05:04 Labs: Abnormal Lab Results - Last 24 Hours (Table) 01/13/20 01/13/2001/12/20 Range/Units 11:44 12:06 12:21 RBC (3.80-5.40) m/uL Hgb (11.4-16.0) gm/dL Hct (34.0-46.0) % Potassium (3.5-5.1) mmol/L Chloride (98-107) mmol/L Glucose (74-99) mg/dL POC Glucose (mg/dL) 58 L 55 L 101 H (75-99) mg/dL AST (14-36) U/L Total Protein (6.3-8.2) g/dL Albumin (3.5-5.0) g/dL 01/13/20 01/13/20 01/13/20 Range/Units 12:37 17:03 17:18 RBC (3.80-5.40) m/uL Hgb (11.4-16.0) gm/dL Hct (34.0-46.0) % Potassium (3.5-5.1) mmol/L Chloride (98-107) mmol/L Glucose (74-99) mg/dL POC Glucose (mg/dL) 175 H 43 L 52 L (75-99) mg/dL AST (14-36) U/L Total Protein (6.3-8.2) g/dL Albumin (3.5-5.0) g/dL 01/14/20 01/14/20 01/14/20 Range/Units 05:04 05:04 06:00 RBC 3.25 L (3.80-5.40) m/uL Hgb 9.5 L (11.4-16.0) gm/dL Hct 30.4 L (34.0-46.0) % Potassium 3.3 L (3.5-5.1) mmol/L Chloride 108 H (98-107) mmol/L Glucose 41 L* (74-99) mg/dL POC Glucose (mg/dL) 58 L (75-99) mg/dL AST 38 H (14-36) U/L Total Protein 5.7 L (6.3-8.2) g/dL Albumin 2.7 L (3.5-5.0) g/dL 01/14/20 Range/Units 11:05 RBC (3.80-5.40) m/uL Hgb (11.4-16.0) gm/dL Hct (34.0-46.0) % Potassium (3.5-5.1) mmol/L Chloride (98-107) mmol/L Glucose (74-99) mg/dL POC Glucose (mg/dL) 210 H (75-99) mg/dL AST (14-36) U/L Total Protein (6.3-8.2) g/dL Albumin (3.5-5.0) g/dL Assessment and Plan Assessment: Impression: Acute diabetic ketoacidosis. Resolved. Acute healthcare acquired pneumonia involving left lower lobe. History of hypertension. History of depression. History of CVA. Involving MCA/RUSTAM vascular territory with history of left hemiparesis arm greater than leg. Brittle type 1 diabetes. Benign essential hypertension History of peripheral vessel occlusive disease involving the lower extremities. History of coronary artery disease and previous coronary stenting. History of COPD, presently in active. History of right foot osteomyelitis. Recommendation: The patient was seen and evaluated by Dr. Clark Continue current treatment plan On oral Levaquin Home once cleared medically I, the cosigning physician, performed a history & physical examination of the patient. Lungs sounds are clear. Maintaining good O2 saturations in the 90s on room air. I discussed the assessment and plan of care with my nurse practitioner, Ruth Manzanares. I attest to the above note as dictated by her.
--- NOTE | 2020-01-14 13:11 | P.PN ---
Subjective Progress Note Date: 01/14/20 Melva Jackson, is a 59-year-old female who was brought in to [facility] emergency room via EMS, was elevated blood glucose of 542, elevated BUN and creatinine of 49 and 1.54 and positive ketones, patient was started on IV fluid, IV insulin drip and was admitted to intensive care unit for diabetic ketoacidosis. Patient was complaining of nausea, otherwise she denies any complaints there is no fever or chills no headache or dizziness no chest pain no shortness of breath no cough no abdominal pain no diarrhea no burning with urination no frequency or urgency and no hematuria. Patient has known history of diabetes mellitus type 1 she also has known history of peripheral vascular disease with previous history of toe amputation, history of bipolar disorder, history of hyperlipidemia, and history of anxiety disorder On 01/12/2020, patient was seen and examined in the ICU, she is alert and oriented 3 in no apparent distress, she is complaining of nausea and vomiting and very poor oral intake, otherwise she denies any complaints, there is no fever or chills no headache or dizziness no chest pain no shortness of breath no cough no abdominal pain no diarrhea no burning with urination no frequency or urgency and no hematuria. On 01/13/2020 patient was seen and examined in the ICU she is alert and oriented 3 in no distress she had an episode of hypoglycemia this morning her glucose was slightly elevated and she received 5 units of NovoLog before her breakfast however patient refused to eat breakfast and subsequently she had an episode of hypoglycemia. Case was discussed in details with her nurse, at this time will check glucose prior to each meal but give the sliding scale insulin only after she eats at least 50% of her meal otherwise cancel the insulin dose and recheck again prior to the next meal. Patient is still complaining of some nausea otherwise no vomiting she has some abdominal pain no fever or chills no headache or dizziness no cough no chest pain no shortness of breath no diarrhea no burning with urination no frequency or urgency and no hematuria On 01/14/2020 patient was seen and examined on the medical floor she is alert and oriented 3 in no apparent distress there is no fever or chills no headache or dizziness no chest pain no shortness of breath no cough no nausea or vomiting no abdominal pain no diarrhea no burning with urination no frequency or urgency and no hematuria, glucose levels are better controlled there are no new episodes of hypoglycemia Objective - Vital Signs Vital signs: Vital Signs Temp 98.5 F 01/14/20 10:04 Pulse 84 01/14/20 10:04 Resp 16 01/14/20 10:04 BP 116/78 01/14/20 10:04 Pulse Ox 95 01/14/20 10:04 Intake & Output 01/13/20 01/14/20 01/14/20 18:59 06:59 18:59 Intake Total 1500 1440 Output Total 825 1100 Balance 675 340 Intake: IV 1200 1200 Sodium Chloride 0.9% 1, 1200 1200 000 ml @ 100 mls/hr IV . Q10H [facility] Rx#:[id number] Oral 300 240 Output: Urine 825 1100 Other: Voiding Method Indwelling Catheter Indwelling Catheter Indwelling Catheter # Bowel Movements 1 - Exam In general patient is alert and oriented 3 in no apparent distress HEENT head normocephalic and atraumatic Neck is supple no JVD no goiter no lymphadenopathy Chest exam reveals a few scattered rhonchi no wheezing Cardiac exam reveals regular heart sounds no gallops no murmurs Abdomen is soft nontender no organomegaly with normal bowel sounds Extremity exam reveals no edema no cyanosis or clubbing - Labs CBC & Chem 7: 01/14/20 05:04 01/14/20 05:04 Labs: Abnormal Lab Results - Last 24 Hours (Table) 01/13/20 01/13/20 01/14/20 Range/Units 17:03 17:18 05:04 RBC 3.25 L (3.80-5.40) m/uL Hgb 9.5 L (11.4-16.0) gm/dL Hct 30.4 L (34.0-46.0) % Potassium (3.5-5.1) mmol/L Chloride (98-107) mmol/L Glucose (74-99) mg/dL POC Glucose (mg/dL) 43 L 52 L (75-99) mg/dL AST (14-36) U/L Total Protein (6.3-8.2) g/dL Albumin (3.5-5.0) g/dL 01/14/20 01/14/20 01/14/20 Range/Units 05:04 06:00 11:05 RBC (3.80-5.40) m/uL Hgb (11.4-16.0) gm/dL Hct (34.0-46.0) % Potassium 3.3 L (3.5-5.1) mmol/L Chloride 108 H (98-107) mmol/L Glucose 41 L* (74-99) mg/dL POC Glucose (mg/dL) 58 L 210 H (75-99) mg/dL AST 38 H (14-36) U/L Total Protein 5.7 L (6.3-8.2) g/dL Albumin 2.7 L (3.5-5.0) g/dL Assessment and Plan Plan: 1. Diabetic ketoacidosis 2. Underlying history of diabetes mellitus type 1 maintained on insulin 3. Underlying history of peripheral vascular disease 4. Underlying history of hyperlipidemia 5. Underlying history of bipolar disorder and anxiety disorder 6. Gastroesophageal reflux disease 7. Nausea and vomiting likely related to gastroparesis Will consult gastroenterology, continue with Reglan and Zofran at this time At this time patient is maintained on IV subcu insulin Consult gastroenterology for nausea and vomiting For DVT prophylaxis patient on subcu Lovenox For GI prophylaxis patient on famotidine Will follow closely
[2020-01-14 17:37] LABS: Glucose,Whole Blood 100 mg/dL (75-99)
[2020-01-14 17:37] LABS: Glucose,Whole Blood 46 mg/dL (75-99)
[2020-01-14 20:15] LABS: Glucose,Whole Blood 254 mg/dL (75-99)
[2020-01-14] MEDS: ALBUTEROL NEBULIZED 2.5 MG/3 ML INHALATION PRN (20:49)
[2020-01-14] MEDS: QUEtiapine 100 MG TAB PO SCH (21:00)
[2020-01-14] MEDS: ALPRAZolam 1 MG TAB PO PRN (21:00)
[2020-01-14] MEDS: INSULIN DETEMIR (LEVEMIR) 100 UNIT/ML SYR SQ SCH (21:01)
[2020-01-14] MEDS: LEVOFLOXACIN 500 MG TAB PO SCH (21:01)
[2020-01-14] MEDS: ATORVASTATIN 20 MG TAB PO SCH (21:01)
--- NOTE | 2020-01-14 21:52 | P.PN ---
Subjective Progress Note Date: 01/14/20 Principal diagnosis: Nausea and vomiting, DKA Patient was seen lying in bed reporting that she is tolerated diet. No nausea or vomiting. No abdominal pain reported. Objective - Vital Signs Vital signs: Vital Signs Temp 98.5 F 01/14/20 10:04 Pulse 84 01/14/20 10:04 Resp 16 01/14/20 10:04 BP 116/78 01/14/20 10:04 Pulse Ox 95 01/14/20 10:04 Intake & Output 01/13/20 01/14/20 01/14/20 18:59 06:59 18:59 Intake Total 1500 1440 Output Total 825 1100 Balance 675 340 Intake: IV 1200 1200 Sodium Chloride 0.9% 1, 1200 1200 000 ml @ 100 mls/hr IV . Q10H [facility] Rx#:[id number] Oral 300 240 Output: Urine 825 1100 Other: Voiding Method Indwelling Catheter Indwelling Catheter Indwelling Catheter # Bowel Movements 1 - Exam On physical examination, patient appears comfortable in no apparent distress. HEAD: Normocephalic, atraumatic. EYES: No scleral icterus. No conjunctival injection. MOUTH: No lesions, tongue midline. NECK: Trachea midline, no gross abnormalities. ABDOMEN: Soft, nontender to palpation. Bowel sounds are positive. No organomegaly. No guarding or rigidity. EXTREMITIES: No pedal edema. SKIN: No rashes, no jaundice. NEUROLOGIC: Alert and oriented. No focal deficits. - Labs CBC & Chem 7: 01/14/20 05:04 01/14/20 05:04 Labs: Abnormal Lab Results - Last 24 Hours (Table) 01/13/20 01/13/20 01/13/20 Range/Units 11:44 12:06 12:21 RBC (3.80-5.40) m/uL Hgb (11.4-16.0) gm/dL Hct (34.0-46.0) % Potassium (3.5-5.1) mmol/L Chloride (98-107) mmol/L Glucose (74-99) mg/dL POC Glucose (mg/dL) 58 L 55 L 101 H (75-99) mg/dL AST (14-36) U/L Total Protein (6.3-8.2) g/dL Albumin (3.5-5.0) g/dL 01/13/20 01/13/20 01/13/20 Range/Units 12:37 17:03 17:18 RBC (3.80-5.40) m/uL Hgb (11.4-16.0) gm/dL Hct (34.0-46.0) % Potassium (3.5-5.1) mmol/L Chloride (98-107) mmol/L Glucose (74-99) mg/dL POC Glucose (mg/dL) 175 H 43 L 52 L (75-99) mg/dL AST (14-36) U/L Total Protein (6.3-8.2) g/dL Albumin (3.5-5.0) g/dL 01/14/20 01/14/20 01/14/20 Range/Units 05:04 05:04 06:00 RBC 3.25 L (3.80-5.40) m/uL Hgb 9.5 L (11.4-16.0) gm/dL Hct 30.4 L (34.0-46.0) % Potassium 3.3 L (3.5-5.1) mmol/L Chloride 108 H (98-107) mmol/L Glucose 41 L* (74-99) mg/dL POC Glucose (mg/dL) 58 L (75-99) mg/dL AST 38 H (14-36) U/L Total Protein 5.7 L (6.3-8.2) g/dL Albumin 2.7 L (3.5-5.0) g/dL 01/14/20 Range/Units 11:05 RBC (3.80-5.40) m/uL Hgb (11.4-16.0) gm/dL Hct (34.0-46.0) % Potassium (3.5-5.1) mmol/L Chloride (98-107) mmol/L Glucose (74-99) mg/dL POC Glucose (mg/dL) 210 H (75-99) mg/dL AST (14-36) U/L Total Protein (6.3-8.2) g/dL Albumin (3.5-5.0) g/dL Assessment and Plan (1) Nausea & vomiting Narrative/Plan: 59-year-old female receiving treatment for diabetic ketoacidosis with consultation for nausea and vomiting. Suspicion a component of complaints are secondary to underlying gastroparesis, symptoms improved today with improved glycemic control. Current Visit: Yes Status: Acute Code(s): R11.2 - NAUSEA WITH VOMITING, UNSPECIFIED SNOMED Code(s): 77700456 (2) Abdominal pain Current Visit: No Status: Acute Code(s): R10.9 - UNSPECIFIED ABDOMINAL PAIN SNOMED Code(s): 59943277 Plan: Supportive care Okay for low fiber low fat consistent carbohydrates as tolerated Discussed dietary modifications including small frequent meals with the patient Continue Protonix therapy Continue antiemetics Continue tight glycemic control No plans for endoscopy at this time Thank you for allowing us to participate in the care of the patient, the GI service will stand by please call us back with any questions or concerns
[2020-01-15] MEDS: SODIUM CHLORIDE 0.9% 1,000 ML IV SCH ×2 (02:35→12:59)
[2020-01-15 02:38] LABS: Glucose,Whole Blood 48 mg/dL (75-99)
[2020-01-15 02:53] LABS: Glucose,Whole Blood 64 mg/dL (75-99)
[2020-01-15 03:05] LABS: Glucose,Whole Blood 130 mg/dL (75-99)
[2020-01-15 05:55] LABS: Glucose,Whole Blood 98 mg/dL (75-99)
[2020-01-15 07:38] LABS: Glucose,Whole Blood 110 mg/dL (75-99)
[2020-01-15] MEDS: INSULIN ASPART (NovoLOG) 100 UNIT/ML VIAL SQ SCH ×4 (07:43→22:29)
[2020-01-15 08:06] LABS: Basophils % (A) 0 %; Eosinophils # (A) 0.1 k/uL (0-0.7); Eosinophils % (A) 2 %; HCT 28.3 % (34.0-46.0); HGB 8.6 gm/dL (11.4-16.0); Hypochromasia Marked; Lymphocytes % (A) 50 %; MCH 29.4 pg (25.0-35.0); MCHC 30.5 g/dL (31.0-37.0); MCV 96.2 fL (80.0-100.0); Mean Platelet Volume 9.2; Monocytes # (A) 0.2 k/uL (0-1.0); Monocytes % (A) 5 %; Neutrophils # (A) 1.7 k/uL (1.3-7.7); Neutrophils % (A) 41 %; Platelet Count 204 k/uL (150-450); RBC 2.94 m/uL (3.80-5.40); RDW 15.5 % (11.5-15.5); WBC 4.1 k/uL (3.8-10.6)
[2020-01-15 08:16] LABS: Albumin 2.3 g/dL (3.5-5.0); Calcium 8.2 mg/dL (8.4-10.2); Potassium 4.5 mmol/L (3.5-5.1); Total Bilirubin 0.2 mg/dL (0.2-1.3); Total Protein 5.1 g/dL (6.3-8.2)
[2020-01-15] MEDS: LOSARTAN 50 MG TAB PO SCH (08:26)
[2020-01-15 08:49] LABS: Glucose,Whole Blood 76 mg/dL (75-99)
[2020-01-15] MEDS: PANTOPRAZOLE 40 MG TABLET PO SCH (09:01)
[2020-01-15] MEDS: METOCLOPRAMIDE 10 MG TAB PO SCH ×3 (09:01→18:02)
[2020-01-15] MEDS: DULoxetine HCL 60 MG CAPSULE.DR PO SCH (09:01)
[2020-01-15] MEDS: ASPIRIN 81 MG PO SCH (09:01)
[2020-01-15] MEDS: FAMOTIDINE 20 MG TAB PO SCH (09:01)
[2020-01-15] MEDS: QUEtiapine 25 MG TAB PO SCH ×2 (09:01→22:29)
[2020-01-15] MEDS: ENOXAPARIN 40 MG/0.4 ML SYRINGE SQ SCH (09:02)
[2020-01-15] MEDS: DIVALPROEX 250 MG TABLET.DR PO SCH ×3 (09:02→22:30)
[2020-01-15 12:06] LABS: Glucose,Whole Blood 157 mg/dL (75-99)
[2020-01-15 17:20] LABS: Glucose,Whole Blood 286 mg/dL (75-99)
[2020-01-15] MEDS: ALPRAZolam 1 MG TAB PO PRN (18:02)
--- NOTE | 2020-01-15 18:56 | P.PN ---
Subjective Progress Note Date: 01/15/20 Melva Jackson, is a 59-year-old female who was brought in to [facility] emergency room via EMS, was elevated blood glucose of 542, elevated BUN and creatinine of 49 and 1.54 and positive ketones, patient was started on IV fluid, IV insulin drip and was admitted to intensive care unit for diabetic ketoacidosis. Patient was complaining of nausea, otherwise she denies any complaints there is no fever or chills no headache or dizziness no chest pain no shortness of breath no cough no abdominal pain no diarrhea no burning with urination no frequency or urgency and no hematuria. Patient has known history of diabetes mellitus type 1 she also has known history of peripheral vascular disease with previous history of toe amputation, history of bipolar disorder, history of hyperlipidemia, and history of anxiety disorder On 01/12/2020, patient was seen and examined in the ICU, she is alert and oriented 3 in no apparent distress, she is complaining of nausea and vomiting and very poor oral intake, otherwise she denies any complaints, there is no fever or chills no headache or dizziness no chest pain no shortness of breath no cough no abdominal pain no diarrhea no burning with urination no frequency or urgency and no hematuria. On 01/13/2020 patient was seen and examined in the ICU she is alert and oriented 3 in no distress she had an episode of hypoglycemia this morning her glucose was slightly elevated and she received 5 units of NovoLog before her breakfast however patient refused to eat breakfast and subsequently she had an episode of hypoglycemia. Case was discussed in details with her nurse, at this time will check glucose prior to each meal but give the sliding scale insulin only after she eats at least 50% of her meal otherwise cancel the insulin dose and recheck again prior to the next meal. Patient is still complaining of some nausea otherwise no vomiting she has some abdominal pain no fever or chills no headache or dizziness no cough no chest pain no shortness of breath no diarrhea no burning with urination no frequency or urgency and no hematuria On 01/14/2020 patient was seen and examined on the medical floor she is alert and oriented 3 in no apparent distress there is no fever or chills no headache or dizziness no chest pain no shortness of breath no cough no nausea or vomiting no abdominal pain no diarrhea no burning with urination no frequency or urgency and no hematuria, glucose levels are better controlled there are no new episodes of hypoglycemia. On 01/15/2020 patient was seen and examined on the medical floor she is alert and oriented 3 in no distress there is no fever or chills no headache or dizziness no chest pain no shortness of breath no cough, neck pain and vomiting has improved significantly patient is tolerating diet, there is no diarrhea no burning with urination no frequency or urgency and no hematuria Objective - Vital Signs Vital signs: Vital Signs Temp 98.6 F 01/15/20 07:58 Pulse 61 01/15/20 07:58 Resp 20 01/15/20 07:58 BP 95/59 01/15/20 07:58 Pulse Ox 97 01/15/20 07:58 Intake & Output 01/14/20 01/15/20 01/15/20 18:59 06:59 18:59 Intake Total 320 300 200 Output Total 1000 300 Balance -680 0 200 Intake: IV 300 Sodium Chloride 0.9% 1, 300 000 ml @ 100 mls/hr IV . Q10H [facility] Rx#:[id number] Oral 320 200 Output: Urine 1000 300 Other: Voiding Method Indwelling Catheter Indwelling Catheter Indwelling Catheter # Voids 0 1 # Bowel Movements 1 - Exam In general patient is alert and oriented 3 in no apparent distress HEENT head normocephalic and atraumatic Neck is supple no JVD no goiter no lymphadenopathy Chest exam reveals a few scattered rhonchi no wheezing Cardiac exam reveals regular heart sounds no gallops no murmurs Abdomen is soft nontender no organomegaly with normal bowel sounds Extremity exam reveals no edema no cyanosis or clubbing - Labs CBC & Chem 7: 01/15/20 07:20 01/15/20 07:20 Labs: Abnormal Lab Results - Last 24 Hours (Table) 01/14/20 01/14/20 01/14/20 Range/Units 17:15 17:34 20:13 RBC (3.80-5.40) m/uL Hgb (11.4-16.0) gm/dL Hct (34.0-46.0) % MCHC (31.0-37.0) g/dL Chloride (98-107) mmol/L POC Glucose (mg/dL) 46 L 100 H 254 H (75-99) mg/dL Calcium (8.4-10.2) mg/dL Total Protein (6.3-8.2) g/dL Albumin (3.5-5.0) g/dL 01/15/20 01/15/20 01/15/20 Range/Units 02:36 02:51 03:03 RBC (3.80-5.40) m/uL Hgb (11.4-16.0) gm/dL Hct (34.0-46.0) % MCHC (31.0-37.0) g/dL Chloride (98-107) mmol/L POC Glucose (mg/dL) 48 L 64 L 130 H (75-99) mg/dL Calcium (8.4-10.2) mg/dL Total Protein (6.3-8.2) g/dL Albumin (3.5-5.0) g/dL 01/15/20 01/15/20 01/15/20 Range/Units 07:15 07:20 07:20 RBC 2.94 L (3.80-5.40) m/uL Hgb 8.6 L (11.4-16.0) gm/dL Hct 28.3 L (34.0-46.0) % MCHC 30.5 L (31.0-37.0) g/dL Chloride 110 H (98-107) mmol/L POC Glucose (mg/dL) 110 H (75-99) mg/dL Calcium 8.2 L (8.4-10.2) mg/dL Total Protein 5.1 L (6.3-8.2) g/dL Albumin 2.3 L (3.5-5.0) g/dL 01/15/20 Range/Units 11:53 RBC (3.80-5.40) m/uL Hgb (11.4-16.0) gm/dL Hct (34.0-46.0) % MCHC (31.0-37.0) g/dL Chloride (98-107) mmol/L POC Glucose (mg/dL) 157 H (75-99) mg/dL Calcium (8.4-10.2) mg/dL Total Protein (6.3-8.2) g/dL Albumin (3.5-5.0) g/dL Assessment and Plan Plan: 1. Diabetic ketoacidosis 2. Underlying history of diabetes mellitus type 1 maintained on insulin 3. Underlying history of peripheral vascular disease 4. Underlying history of hyperlipidemia 5. Underlying history of bipolar disorder and anxiety disorder 6. Gastroesophageal reflux disease 7. Nausea and vomiting likely related to gastroparesis Will consult gastroenterology, continue with Reglan and Zofran at this time At this time patient is maintained on IV subcu insulin Consult gastroenterology for nausea and vomiting For DVT prophylaxis patient on subcu Lovenox For GI prophylaxis patient on famotidine DC Daigle catheter, possible discharge to home tomorrow Will follow closely
[2020-01-15 20:28] LABS: Glucose,Whole Blood 79 mg/dL (75-99)
[2020-01-15] MEDS: ATORVASTATIN 20 MG TAB PO SCH (22:28)
[2020-01-15] MEDS: LEVOFLOXACIN 500 MG TAB PO SCH (22:29)
[2020-01-15] MEDS: INSULIN DETEMIR (LEVEMIR) 100 UNIT/ML SYR SQ SCH (22:29)
[2020-01-15] MEDS: QUEtiapine 100 MG TAB PO SCH (22:30)
[2020-01-16 02:05] LABS: Glucose,Whole Blood 235 mg/dL (75-99)
[2020-01-16] MEDS: SODIUM CHLORIDE 0.9% 1,000 ML IV SCH ×3 (04:47→18:59)
[2020-01-16 07:33] LABS: Glucose,Whole Blood 146 mg/dL (75-99)
[2020-01-16] MEDS: ENOXAPARIN 40 MG/0.4 ML SYRINGE SQ SCH (09:00)
[2020-01-16] MEDS: ASPIRIN 81 MG PO SCH ×2 (09:01→10:34)
[2020-01-16] MEDS: METOCLOPRAMIDE 10 MG TAB PO SCH ×4 (09:01→17:51)
[2020-01-16] MEDS: DULoxetine HCL 60 MG CAPSULE.DR PO SCH ×2 (09:01→10:34)
[2020-01-16] MEDS: LOSARTAN 50 MG TAB PO SCH ×2 (09:01→09:18)
[2020-01-16] MEDS: FAMOTIDINE 20 MG TAB PO SCH ×2 (09:01→10:35)
[2020-01-16] MEDS: QUEtiapine 25 MG TAB PO SCH ×3 (09:01→20:48)
[2020-01-16] MEDS: PANTOPRAZOLE 40 MG TABLET PO SCH ×2 (09:01→10:34)
[2020-01-16] MEDS: DIVALPROEX 250 MG TABLET.DR PO SCH ×4 (09:01→20:49)
[2020-01-16 09:08] LABS: Glucose,Whole Blood 124 mg/dL (75-99)
[2020-01-16] MEDS: INSULIN ASPART (NovoLOG) 100 UNIT/ML VIAL SQ SCH ×4 (09:09→20:49)
[2020-01-16 10:32] LABS: Glucose,Whole Blood 112 mg/dL (75-99)
[2020-01-16] MEDS: SODIUM CHLORIDE 0.9% 1,000 ML IV ONE (10:41)
[2020-01-16 11:31] LABS: Basophils % (A) 0 %; Eosinophils # (A) 0.1 k/uL (0-0.7); Eosinophils % (A) 2 %; HCT 28.1 % (34.0-46.0); HGB 8.5 gm/dL (11.4-16.0); Hypochromasia Moderate; Lymphocytes # (A) 2.7 k/uL (1.0-4.8); Lymphocytes % (A) 59 %; MCH 28.8 pg (25.0-35.0); MCHC 30.3 g/dL (31.0-37.0); MCV 95.2 fL (80.0-100.0); Mean Platelet Volume 8.1; Monocytes # (A) 0.2 k/uL (0-1.0); Monocytes % (A) 5 %; Neutrophils # (A) 1.5 k/uL (1.3-7.7); Neutrophils % (A) 32 %; Platelet Count 182 k/uL (150-450); RBC 2.95 m/uL (3.80-5.40); RDW 15.8 % (11.5-15.5); WBC 4.6 k/uL (3.8-10.6)
--- NOTE | 2020-01-16 11:31 | CT ---
EXAMINATION TYPE: CODE STROKE: CT brain wo contr DATE OF EXAM: 01/16/2020 HISTORY: CODE STROKE CT DLP: 1090.4 mGycm. Automated Exposure Control for Dose Reduction was Utilized. TECHNIQUE: CT scan of the head is performed without contrast. COMPARISON: CT brain 08/13/2019 FINDINGS: There is no acute intracranial hemorrhage, midline shift, or mass effect identified. There is unchang ed extensive right MCA territory encephalomalacia of the right frontal, parietal, and temporal lobes. The ventricles, sulci, and cisterns are prominent with redemonstrated diffuse volume loss. No extra- axial fluid collection. Redemonstrated calcifications of the distal internal carotid arteries bilater ally. Bones and extracranial soft tissues are intact. The globes are grossly symmetric. Visualized si nuses and mastoid air cells are clear. IMPRESSION: 1. No acute intracranial hemorrhage, midline shift, or mass effect. 2. Unchanged large encephalomalacia of the right frontal, parietal, and temporal lobes. Dr. Shanell Carson discussed findings with Benita Flowers RN via the phone on 01/16/2020 at 11:28 AM, and results were acknowledged. Dr. Shanell Carson notified Dr. Sherlyn Chen via [employer] paging at on 01/16/2020 at 11:26 AM. A Document Only message has been documented for Sherlyn Chen MD in the [employer] system on 01/16/2020 11:26 AM, Message ID [id number].
[2020-01-16 11:42] LABS: Potassium 4.3 mmol/L (3.5-5.1)
[2020-01-16 11:59] LABS: Glucose,Whole Blood 82 mg/dL (75-99)
[2020-01-16 12:10] LABS: Valproic Acid (Depakene) 56.1 ug/mL
--- NOTE | 2020-01-16 12:21 | CT ---
EXAMINATION TYPE: CODE STROKE: CTA head neck DATE OF EXAM: 01/16/2020 HISTORY: CODE STROKE COMPARISON: CT brain 01/16/2020. CTA neck 04/19/2017. CT DLP: 357.5 mGycm. Automated Exposure Control for Dose Reduction was Utilized. TECHNIQUE: CTA scan of the neck is performed without and with IV Contrast, patient injected with 65 ML mL of Isovue 370, axial images are obtained, coronal and sagittal reformatted images are reviewed. Three-D reconstructed images are created on an independent workstation and reviewed. FINDINGS: Carotid/Vascular Structures: There is classic branching pattern of the great vessels of the aortic ar ch. The bilateral common carotid arteries are patent. There is redemonstrated occlusion of the proxim al right internal carotid artery. The left internal carotid artery is patent. Old encephalomalacia of the right MCA territory with redemonstrated diminutive right intracranial ant erior circulation, likely receiving collateral flow from the left ambler of [place] and posterior circ ulation. No evidence of aneurysm or dissection. IMPRESSION: CTA examination of the head and neck not significantly changed versus 04/27/2017, with chronic occlus ion of the right internal carotid artery and diminutive right intracranial anterior circulation with old large right-sided encephalomalacia.
[2020-01-16] MEDS: ALBUTEROL NEBULIZED 2.5 MG/3 ML INHALATION PRN (16:14)
--- NOTE | 2020-01-16 16:38 | P.CNNES ---
History of Present Illness Consult date: 01/16/20 Requesting physician: Sherlyn Chen Reason for Consult: Code Stroke History of Present Illness: The patient is a 59-year-old female who came to the hospital initially on 01/10/2020 for nausea vomiting. Her blood sugar was 558 on arrival and was diagnosed with DKA. Patient has history of diabetes, heart disease. Patient was having lower abdominal discomfort and severe constipation. Patient today at 10:30 AM was noted to have change in level of consciousness. Patient was lethargic, arouses briefly with stimulus, oriented 3 but slow to respond and drifts right back to sleep. Her blood pressure was 76/51, heart rate 78. Blood sugar checked was 112. 100 mL of fluid bolus was given. Patient has left hemiparesis, which was essentially unchanged. Stroke neurologist was contacted, who recommended no TPA or any other intervention after testing were completed as below. Patient slowly came back to baseline. I spoke to patient's brother, who feels she is back to baseline. CT head showed no acute intracranial process. Unchanged large encephalomalacia of the right frontal, parietal and temporal lobes. CTA of head and neck not significantly changed from 04/27/2017, with chronic occlusion of the right ICA and diminutive right intracranial anterior circulation with old large right sided encephalomalacia. Patient's last hemoglobin A1c 9.1 on 12/29/2019. Hepatic panel is normal. Total cholesterol 194, LDL 96, HDL 65, B12 367 on 03/12/2014. Patient apparently had a seizure a few months ago. She was placed on Depakote by her primary physician. She was recommended to be seen by neurologist, but the appointment was rescheduled because of the pandemic. Patient has history of diabetes for last 6 years. She had history of a stroke affected the left side of the body 5 years ago. Patient has history of smoking 2 packs per day from age 18, until she had her stroke 5 years ago. Thereafter she was smoking likely, but completely quit only 2 or 3 years ago. Review of Systems Patient denies headache. Denies any new focal weakness. Continues to have left hemiparesis paresis. Patient cannot walk, drags her left leg. She mostly sits in the wheelchair or her recliner. She denies any chest pain or abdominal pain. All other review of systems unremarkable. Past Medical History Past Medical History: Asthma, Coronary Artery Disease (CAD), Chest Pain / Angina, Heart Failure, COPD, CVA/TIA, Diabetes Mellitus, Deep Vein Thrombosis (DVT), Eye Disorder, GERD/Reflux, Hyperlipidemia, Hypertension, Myocardial Infarction (MS), Neurologic Disorder, Osteoarthritis (OA), Pneumonia, Renal Disease Additional Past Medical History / Comment(s): IDDM (brittle), DKAs, neuropathy bilateral hands/feet, retinopathy bilateral eyes, cellulitis R foot, R great toe and 2nd toe infections/amputations, current wound R foot-being seen in [facility], renal failure, anemia, CVAs with L sided paralysis, headaches started after CVAs, brain lesions, DVT R axillae, low back pain, varicosities, seizure many years ago (2001), hypothyroid, constipation, bilateral tinnitis occasionally, sinus problems. Last Myocardial Infarction Date:: 2011 History of Any Multi-Drug Resistant Organisms: MRSA Date of last positivie culture/infection: 09/06/17 MDRO Source:: Right Foot Past Surgical History: Appendectomy, Section, Cholecystectomy, Heart Catheterization With Stent, Hysterectomy, Orthopedic Surgery Additional Past Surgical History / Comment(s): PCI with multiple stents, R great toe and 2nd toe amps, debridements R foot ulcer, L shoulder surgery to remove bone, bronchoscopy, EGD, colonoscopy, R arm port since removed, bilateral cataract removals/lens implants. Past Anesthesia/Blood Transfusion Reactions: No Reported Reaction Additional Past Anesthesia/Blood Transfusion Reaction / Comment(s): HX OF BLOOD TRANSFUSION- NO REACTION Date of Last Stent Placement:: July 2012 Past Psychological History: Anxiety, Bipolar, Depression Additional Psychological History / Comment(s): Pt has a legal guardian, Sera Rodriguez, who is pt's sister. Currently her legal guardian is hospitalized. Pt has a caregiver, No, who resides with her. Pt is wheelchair bound d/t CVA with L sided paralysis arm and leg. She has a shower chair and a glucometer. Her sister or caregiver drive her to [email or web address]. Smoking Status: Former smoker Past Alcohol Use History: None Reported Additional Past Alcohol Use History / Comment(s): Pt started smoking in 1982 and quit in 2018. Using marijuana edibles occasionally but none for a "long time" Past Drug Use History: None Reported Additional Drug Use History / Comment(s): using marijuana edibles - Past Family History Father Family Medical History: Unable to Obtain, Coronary Artery Disease (CAD), Diabetes Mellitus Mother Family Medical History: COPD Medications and Allergies Home Medications Medication Instructions Recorded Confirmed Type Famotidine [Pepcid] 20 mg PO DAILY@89907/19/15 01/10/20 History HYDROcodone/APAP 10-325MG [[place] 1 tab PO Q6H PRN 10/03/16 01/10/20 History 10-325] DULoxetine HCL [Cymbalta] 60 mg PO DAILY@89902/16/17 01/10/20 History Atorvastatin [Lipitor] 20 mg PO DAILY@209912/28/18 01/10/20 History QUEtiapine [SEROquel] 100 mg PO HS@209912/28/18 01/10/20 History Vitamin B Complex With Vit C 1 tab PO DAILY 06/01/19 01/10/20 History Aspirin [Adult Low Dose Aspirin EC] 81 mg PO DAILY@89906/09/19 01/10/20 History Ferrous Sulfate [Iron (65 MG 325 mg PO DAILY@89906/09/19 01/10/20 History Elemental)] INSULIN LISPRO (humaLOG) [humaLOG] See Protocol SQ ACHS 08/13/19 01/10/20 History Divalproex [Depakote] 250 mg PO TID #90 tablet. 08/17/19 01/10/20 Rx ALPRAZolam [Xanax] 1 mg PO TID PRN 12/26/19 01/10/20 History Albuterol Sulfate [Ventolin HFA] 2 puff INHALATION RT-Q4H PRN 12/26/19 01/10/20 History Ondansetron Odt [Zofran ODT] 4 mg PO DAILY PRN 12/26/19 01/10/20 History Valproic Acid [Depakene] 250 mg PO DAILY 12/26/19 01/10/20 History Insulin Glargine,Hum.rec.anlog 16 unit SQ HS #0 01/03/20 01/10/20 Rx [Basaglar Kwikpen U-100] INSULIN LISPRO (humaLOG) [humaLOG] 5 units SQ ACHS 01/10/20 01/10/20 History Pantoprazole Sodium [Protonix] 20 mg PO DAILY 01/10/20 01/10/20 History QUEtiapine [SEROquel] 25 mg PO BID 01/10/20 01/10/20 History Allergies Allergy/AdvReac Type Severity Reaction Status Date / Time Barbiturates Allergy Rash/Hives Verified 01/10/20 12:28 cephalexin monohydrate Allergy Rash/Hives Verified 01/10/20 12:28 [From Keflex] morphine Allergy Rash/Hives Verified 01/10/20 12:28 Penicillins Allergy Rash/Hives Verified 01/10/20 12:28 phenobarbital Allergy Swelling Verified 01/10/20 12:28 venom-honey bee Allergy Swelling Verified 01/10/20 12:28 [bee venom (honey bee)] amlodipine besylate AdvReac Vomiting Verified 01/10/20 12:28 [From [facility]] Physical Examination - Vital Signs Vital Signs: Vital Signs Temp Pulse Resp BP BP Pulse Ox 01/16/20 11:15 141/90 01/16/20 10:45 78 91/57 96 01/16/20 09:20 77 100/65 96 01/16/20 07:00 97.8 F 89 18 163/84 97 01/16/20 02:36 97.9 F 90 18 115/64 92 L 01/15/20 23:14 19 01/15/20 20:00 96 19 01/15/20 19:20 98.4 F 96 19 100/65 99 01/15/20 15:00 98.6 F 94 20 130/75 96 Intake and Output 01/15/20 01/16/20 01/16/20 22:59 06:59 14:59 Other: Voiding Method Diaper Diaper Diaper # Voids 2 2 On examination patient is a middle aged female, appears older than her stated age. She is alert and awake. She states it January 2020. She knows that she is in [facility]. She knows name of the current president. Speech and language function appears normal. On cranial nerve examination pu pils are round and reactive to light. Visual campuzano revealed a homonymous visual field defect involving the left lower quadrant. Face is symmetric, tongue protrudes the midline. Palatal elevation is normal hearing and shoulder shrug normal. On muscle strength testing the strength is normal in the right arm and right leg. She is amputated big and lateral small toes in the right foot. Patient is spastic hemiparetic on the left side, left arm is much worse than leg. Patient can move the left leg at the hip region antigravity, with some resistance. Patient does not move her left ankle. Patient has Babinski on the left side. Sensory decreased on the left. Cerebellar function is normal on the right, cannot perform on left. Patient is wheelchair bound. There is no obvious bruit, S1 and S2 audible. Peripheral pulses present. Abdomen soft nontender chest is clear. Results - Laboratory Findings CBC and BMP: 01/16/20 11:14 01/16/20 11:14 Abnormal Lab Findings: Abnormal Labs 01/10/20 01/10/20 01/10/20 11:49 11:52 11:52 WBC RBC Hgb Hct MCHC RDW Neutrophils # Lymphocytes # APTT VBG pH VBG pCO2 Sodium Potassium 5.4 H Chloride Carbon Dioxide 17 L BUN 49 H Creatinine 1.54 H Glucose 542 H* POC Glucose (mg/dL) 558 H Plasma Lactic Acid Conrado 3.7 H* Calcium 10.4 H AST Total Protein 8.7 H Albumin Lipase 15 L Procalcitonin Urine Glucose (UA) Urine Ketones Urine Blood Hyaline Casts Urine Mucus 01/10/20 01/10/20 01/10/20 13:27 13:27 13:27 WBC 10.7 H RBC Hgb Hct MCHC RDW Neutrophils # 9.4 H Lymphocytes # 0.8 L APTT 20.0 L VBG pH 7.25 L VBG pCO2 57 H Sodium Potassium Chloride Carbon Dioxide BUN Creatinine Glucose POC Glucose (mg/dL) Plasma Lactic Acid Conrado Calcium AST Total Protein Albumin Lipase Procalcitonin Urine Glucose (UA) Urine Ketones Urine Blood Hyaline Casts Urine Mucus 01/10/20 01/10/20 01/10/20 14:26 14:37 15:18 WBC RBC Hgb Hct MCHC RDW Neutrophils # Lymphocytes # APTT VBG pH VBG pCO2 Sodium Potassium Chloride Carbon Dioxide BUN Creatinine Glucose POC Glucose (mg/dL) 313 H 295 H Plasma Lactic Acid Conrado Calcium AST Total Protein Albumin Lipase Procalcitonin Urine Glucose (UA) 4+ H Urine Ketones 2+ H Urine Blood Trace H Hyaline Casts 26 H Urine Mucus Rare H 01/10/20 01/10/20 01/10/20 15:42 16:47 17:24 WBC RBC Hgb Hct MCHC RDW Neutrophils # Lymphocytes # APTT VBG pH VBG pCO2 Sodium Potassium Chloride 110 H Carbon Dioxide BUN Creatinine Glucose POC Glucose (mg/dL) 251 H 213 H Plasma Lactic Acid Conrado Calcium AST Total Protein Albumin Lipase Procalcitonin Urine Glucose (UA) Urine Ketones Urine Blood Hyaline Casts Urine Mucus 01/10/20 01/10/20 01/10/20 17:46 19:07 20:08 WBC RBC Hgb Hct MCHC RDW Neutrophils # Lymphocytes # APTT VBG pH VBG pCO2 Sodium Potassium Chloride Carbon Dioxide BUN Creatinine Glucose POC Glucose (mg/dL) 181 H 169 H 149 H Plasma Lactic Acid Conrado Calcium AST Total Protein Albumin Lipase Procalcitonin Urine Glucose (UA) Urine Ketones Urine Blood Hyaline Casts Urine Mucus 01/10/20 01/10/20 01/10/20 20:57 21:02 22:18 WBC RBC Hgb Hct MCHC RDW Neutrophils # Lymphocytes # APTT VBG pH VBG pCO2 Sodium Potassium Chloride 109 H Carbon Dioxide BUN Creatinine Glucose POC Glucose (mg/dL) 140 H 177 H Plasma Lactic Acid Conrado Calcium AST Total Protein Albumin Lipase Procalcitonin Urine Glucose (UA) Urine Ketones Urine Blood Hyaline Casts Urine Mucus 01/10/20 01/10/20 01/11/20 23:08 23:16 01:05 WBC RBC Hgb Hct MCHC RDW Neutrophils # Lymphocytes # APTT VBG pH VBG pCO2 Sodium Potassium Chloride Carbon Dioxide BUN Creatinine Glucose POC Glucose (mg/dL) 165 H 191 H 239 H Plasma Lactic Acid Conrado Calcium AST Total Protein Albumin Lipase Procalcitonin Urine Glucose (UA) Urine Ketones Urine Blood Hyaline Casts Urine Mucus 01/11/20 01/11/20 01/11/20 02:00 02:04 03:11 WBC RBC Hgb Hct MCHC RDW Neutrophils # Lymphocytes # APTT VBG pH VBG pCO2 Sodium Potassium Chloride 108 H Carbon Dioxide BUN Creatinine Glucose POC Glucose (mg/dL) 224 H 244 H Plasma Lactic Acid Conrado Calcium AST Total Protein Albumin Lipase Procalcitonin Urine Glucose (UA) Urine Ketones Urine Blood Hyaline Casts Urine Mucus 01/11/20 01/11/20 01/11/20 04:52 05:00 05:00 WBC 11.0 H RBC 3.30 L Hgb 10.0 L D Hct 30.8 L MCHC RDW 15.8 H Neutrophils # Lymphocytes # APTT VBG pH VBG pCO2 Sodium Potassium Chloride Carbon Dioxide BUN 22 H Creatinine Glucose 262 H POC Glucose (mg/dL) 258 H Plasma Lactic Acid Conrado Calcium AST Total Protein Albumin 3.4 L Lipase Procalcitonin Urine Glucose (UA) Urine Ketones Urine Blood Hyaline Casts Urine Mucus 01/11/20 01/11/20 01/11/20 05:00 06:19 07:19 WBC RBC Hgb Hct MCHC RDW Neutrophils # Lymphocytes # APTT VBG pH VBG pCO2 Sodium Potassium Chloride Carbon Dioxide BUN Creatinine Glucose POC Glucose (mg/dL) 268 H 278 H Plasma Lactic Acid Conrado Calcium AST Total Protein Albumin Lipase Procalcitonin 1.79 H Urine Glucose (UA) Urine Ketones Urine Blood Hyaline Casts Urine Mucus 01/11/20 01/11/20 01/11/20 08:06 11:07 19:05 WBC RBC Hgb Hct MCHC RDW Neutrophils # Lymphocytes # APTT VBG pH VBG pCO2 Sodium Potassium Chloride Carbon Dioxide BUN Creatinine Glucose POC Glucose (mg/dL) 335 H 362 H 72 L Plasma Lactic Acid Conrado Calcium AST Total Protein Albumin Lipase Procalcitonin Urine Glucose (UA) Urine Ketones Urine Blood Hyaline Casts Urine Mucus 01/11/20 01/12/20 01/12/20 20:43 04:39 04:39 WBC RBC 3.45 L Hgb 10.1 L Hct 32.2 L MCHC RDW 15.6 H Neutrophils # Lymphocytes # APTT VBG pH VBG pCO2 Sodium 136 L Potassium Chloride Carbon Dioxide BUN 23 H Creatinine 1.06 H Glucose 310 H POC Glucose (mg/dL) 159 H Plasma Lactic Acid Conrado Calcium AST Total Protein Albumin 3.3 L Lipase Procalcitonin Urine Glucose (UA) Urine Ketones Urine Blood Hyaline Casts Urine Mucus 01/12/20 01/12/20 01/12/20 06:41 11:16 17:12 WBC RBC Hgb Hct MCHC RDW Neutrophils # Lymphocytes # APTT VBG pH VBG pCO2 Sodium Potassium Chloride Carbon Dioxide BUN Creatinine Glucose POC Glucose (mg/dL) 374 H 222 H 114 H Plasma Lactic Acid Conrado Calcium AST Total Protein Albumin Lipase Procalcitonin Urine Glucose (UA) Urine Ketones Urine Blood Hyaline Casts Urine Mucus 01/12/20 01/13/20 01/13/20 20:24 04:40 04:40 WBC RBC 3.37 L Hgb 9.9 L Hct 32.0 L MCHC 30.9 L RDW 15.7 H Neutrophils # Lymphocytes # APTT VBG pH VBG pCO2 Sodium 136 L Potassium Chloride Carbon Dioxide BUN 28 H Creatinine 1.24 H Glucose 172 H POC Glucose (mg/dL) 103 H Plasma Lactic Acid Conrado Calcium AST Total Protein Albumin 3.0 L Lipase Procalcitonin Urine Glucose (UA) Urine Ketones Urine Blood Hyaline Casts Urine Mucus 01/13/20 01/13/20 01/13/20 06:39 11:44 12:06 WBC RBC Hgb Hct MCHC RDW Neutrophils # Lymphocytes # APTT VBG pH VBG pCO2 Sodium Potassium Chloride Carbon Dioxide BUN Creatinine Glucose POC Glucose (mg/dL) 294 H 58 L 55 L Plasma Lactic Acid Conrado Calcium AST Total Protein Albumin Lipase Procalcitonin Urine Glucose (UA) Urine Ketones Urine Blood Hyaline Casts Urine Mucus 01/13/20 01/13/20 01/13/20 12:21 12:37 17:03 WBC RBC Hgb Hct MCHC RDW Neutrophils # Lymphocytes # APTT VBG pH VBG pCO2 Sodium Potassium Chloride Carbon Dioxide BUN Creatinine Glucose POC Glucose (mg/dL) 101 H 175 H 43 L Plasma Lactic Acid Conrado Calcium AST Total Protein Albumin Lipase Procalcitonin Urine Glucose (UA) Urine Ketones Urine Blood Hyaline Casts Urine Mucus 01/13/20 01/14/20 01/14/20 17:18 05:04 05:04 WBC RBC 3.25 L Hgb 9.5 L Hct 30.4 L MCHC RDW Neutrophils # Lymphocytes # APTT VBG pH VBG pCO2 Sodium Potassium 3.3 L Chloride 108 H Carbon Dioxide BUN Creatinine Glucose 41 L* POC Glucose (mg/dL) 52 L Plasma Lactic Acid Conrado Calcium AST 38 H Total Protein 5.7 L Albumin 2.7 L Lipase Procalcitonin Urine Glucose (UA) Urine Ketones Urine Blood Hyaline Casts Urine Mucus 01/14/20 01/14/20 01/14/20 06:00 11:05 17:15 WBC RBC Hgb Hct MCHC RDW Neutrophils # Lymphocytes # APTT VBG pH VBG pCO2 Sodium Potassium Chloride Carbon Dioxide BUN Creatinine Glucose POC Glucose (mg/dL) 58 L 210 H 46 L Plasma Lactic Acid Conrado Calcium AST Total Protein Albumin Lipase Procalcitonin Urine Glucose (UA) Urine Ketones Urine Blood Hyaline Casts Urine Mucus 01/14/20 01/14/20 01/15/20 17:34 20:13 02:36 WBC RBC Hgb Hct MCHC RDW Neutrophils # Lymphocytes # APTT VBG pH VBG pCO2 Sodium Potassium Chloride Carbon Dioxide BUN Creatinine Glucose POC Glucose (mg/dL) 100 H 254 H 48 L Plasma Lactic Acid Conrado Calcium AST Total Protein Albumin Lipase Procalcitonin Urine Glucose (UA) Urine Ketones Urine Blood Hyaline Casts Urine Mucus 01/15/20 01/15/20 01/15/20 02:51 03:03 07:15 WBC RBC Hgb Hct MCHC RDW Neutrophils # Lymphocytes # APTT VBG pH VBG pCO2 Sodium Potassium Chloride Carbon Dioxide BUN Creatinine Glucose POC Glucose (mg/dL) 64 L 130 H 110 H Plasma Lactic Acid Conrado Calcium AST Total Protein Albumin Lipase Procalcitonin Urine Glucose (UA) Urine Ketones Urine Blood Hyaline Casts Urine Mucus 01/15/20 01/15/20 01/15/20 07:20 07:20 11:53 WBC RBC 2.94 L Hgb 8.6 L Hct 28.3 L MCHC 30.5 L RDW Neutrophils # Lymphocytes # APTT VBG pH VBG pCO2 Sodium Potassium Chloride 110 H Carbon Dioxide BUN Creatinine Glucose POC Glucose (mg/dL) 157 H Plasma Lactic Acid Conrado Calcium 8.2 L AST Total Protein 5.1 L Albumin 2.3 L Lipase Procalcitonin Urine Glucose (UA) Urine Ketones Urine Blood Hyaline Casts Urine Mucus 01/15/20 01/16/20 01/16/20 17:13 01:58 07:28 WBC RBC Hgb Hct MCHC RDW Neutrophils # Lymphocytes # APTT VBG pH VBG pCO2 Sodium Potassium Chloride Carbon Dioxide BUN Creatinine Glucose POC Glucose (mg/dL) 286 H 235 H 146 H Plasma Lactic Acid Conrado Calcium AST Total Protein Albumin Lipase Procalcitonin Urine Glucose (UA) Urine Ketones Urine Blood Hyaline Casts Urine Mucus 01/16/20 01/16/20 01/16/20 09:06 10:30 11:14 WBC RBC 2.95 L Hgb 8.5 L Hct 28.1 L MCHC 30.3 L RDW 15.8 H Neutrophils # Lymphocytes # APTT VBG pH VBG pCO2 Sodium Potassium Chloride Carbon Dioxide BUN Creatinine Glucose POC Glucose (mg/dL) 124 H 112 H Plasma Lactic Acid Conrado Calcium AST Total Protein Albumin Lipase Procalcitonin Urine Glucose (UA) Urine Ketones Urine Blood Hyaline Casts Urine Mucus 01/16/20 11:14 WBC RBC Hgb Hct MCHC RDW Neutrophils # Lymphocytes # APTT VBG pH VBG pCO2 Sodium Potassium Chloride 108 H Carbon Dioxide BUN Creatinine Glucose POC Glucose (mg/dL) Plasma Lactic Acid Conrado Calcium 8.0 L AST Total Protein Albumin Lipase Procalcitonin Urine Glucose (UA) Urine Ketones Urine Blood Hyaline Casts Urine Mucus Assessment and Plan Assessment: * Episode of altered mental status, with unresponsiveness. Rule out unwitnessed complex partial seizure with subsequent postictal state. Patient's blood sugar reported was normal, 112 at that time, although her blood pressure was low 76/51, which may be contributing to this episode. * History of right MCA territory CVA, with left hemiplegia. * Diabetes, poorly controlled. * History of chronic heavy tobacco use in the past. Plan: * EEG to evaluate for any interictal epileptiform activity. * Patient currently is on Depakote 250 mg 3 times a day, and level is therapeutic 56.1 * CTA of head and neck are normal. * Neurology will follow.
[2020-01-16 16:48] LABS: Glucose,Whole Blood 150 mg/dL (75-99)
--- NOTE | 2020-01-16 18:21 | P.PN ---
Subjective Progress Note Date: 01/16/20 Melva Jackson, is a 59-year-old female who was brought in to [facility] emergency room via EMS, was elevated blood glucose of 542, elevated BUN and creatinine of 49 and 1.54 and positive ketones, patient was started on IV fluid, IV insulin drip and was admitted to intensive care unit for diabetic ketoacidosis. Patient was complaining of nausea, otherwise she denies any complaints there is no fever or chills no headache or dizziness no chest pain no shortness of breath no cough no abdominal pain no diarrhea no burning with urination no frequency or urgency and no hematuria. Patient has known history of diabetes mellitus type 1 she also has known history of peripheral vascular disease with previous history of toe amputation, history of bipolar disorder, history of hyperlipidemia, and history of anxiety disorder On 01/12/2020, patient was seen and examined in the ICU, she is alert and oriented 3 in no apparent distress, she is complaining of nausea and vomiting and very poor oral intake, otherwise she denies any complaints, there is no fever or chills no headache or dizziness no chest pain no shortness of breath no cough no abdominal pain no diarrhea no burning with urination no frequency or urgency and no hematuria. On 01/13/2020 patient was seen and examined in the ICU she is alert and oriented 3 in no distress she had an episode of hypoglycemia this morning her glucose was slightly elevated and she received 5 units of NovoLog before her breakfast however patient refused to eat breakfast and subsequently she had an episode of hypoglycemia. Case was discussed in details with her nurse, at this time will check glucose prior to each meal but give the sliding scale insulin only after she eats at least 50% of her meal otherwise cancel the insulin dose and recheck again prior to the next meal. Patient is still complaining of some nausea otherwise no vomiting she has some abdominal pain no fever or chills no headache or dizziness no cough no chest pain no shortness of breath no diarrhea no burning with urination no frequency or urgency and no hematuria On 01/14/2020 patient was seen and examined on the medical floor she is alert and oriented 3 in no apparent distress there is no fever or chills no headache or dizziness no chest pain no shortness of breath no cough no nausea or vomiting no abdominal pain no diarrhea no burning with urination no frequency or urgency and no hematuria, glucose levels are better controlled there are no new episodes of hypoglycemia. On 01/15/2020 patient was seen and examined on the medical floor she is alert and oriented 3 in no distress there is no fever or chills no headache or dizziness no chest pain no shortness of breath no cough, neck pain and vomiting has improved significantly patient is tolerating diet, there is no diarrhea no burning with urination no frequency or urgency and no hematuria. On 01/16/2020 patient was seen and examined on the medical floor, I came to see this patient in the morning and she was obtunded and nonresponsive which is a major change from her condition yesterday glucose level was checked stat and was 112 code stroke was called patient underwent computed tomography scan of the brain which did not reveal any evidence of acute intracranial abnormality, possibly patient had a seizure with postictal state, neurology consultation was requested and seizure precautions initiated. Objective - Vital Signs Vital signs: Vital Signs Temp 97.5 F L 01/16/20 13:31 Pulse 85 01/16/20 16:23 Resp 16 01/16/20 13:31 BP 115/75 01/16/20 13:31 Pulse Ox 95 01/16/20 13:31 Intake & Output 01/15/20 01/16/20 01/16/20 18:59 06:59 18:59 Intake Total 400 240 Output Total 800 Balance -400 240 Intake: Oral 400 240 Output: Urine 800 Other: Voiding Method Indwelling Catheter Diaper Diaper # Voids 2 2 # Bowel Movements 0 - Exam In general patient is obtunded, responsive to stimuli, nonverbal, in no apparent distress HEENT head normocephalic and atraumatic Neck is supple no JVD no goiter no lymphadenopathy Chest exam reveals a few scattered rhonchi no wheezing Cardiac exam reveals regular heart sounds no gallops no murmurs Abdomen is soft nontender no organomegaly with normal bowel sounds Extremity exam reveals no edema no cyanosis or clubbing - Labs CBC & Chem 7: 01/16/20 11:14 01/16/20 11:14 Labs: Abnormal Lab Results - Last 24 Hours (Table) 01/16/20 01/16/20 01/16/20 Range/Units 01:58 07:28 09:06 RBC (3.80-5.40) m/uL Hgb (11.4-16.0) gm/dL Hct (34.0-46.0) % MCHC (31.0-37.0) g/dL RDW (11.5-15.5) % Chloride (98-107) mmol/L POC Glucose (mg/dL) 235 H 146 H 124 H (75-99) mg/dL Calcium (8.4-10.2) mg/dL 01/16/20 01/16/20 01/16/20 Range/Units 10:30 11:14 11:14 RBC 2.95 L (3.80-5.40) m/uL Hgb 8.5 L (11.4-16.0) gm/dL Hct 28.1 L (34.0-46.0) % MCHC 30.3 L (31.0-37.0) g/dL RDW 15.8 H (11.5-15.5) % Chloride 108 H (98-107) mmol/L POC Glucose (mg/dL) 112 H (75-99) mg/dL Calcium 8.0 L (8.4-10.2) mg/dL 01/16/20 Range/Units 16:47 RBC (3.80-5.40) m/uL Hgb (11.4-16.0) gm/dL Hct (34.0-46.0) % MCHC (31.0-37.0) g/dL RDW (11.5-15.5) % Chloride (98-107) mmol/L POC Glucose (mg/dL) 150 H (75-99) mg/dL Calcium (8.4-10.2) mg/dL Assessment and Plan Plan: 1. Diabetic ketoacidosis 2. Underlying history of diabetes mellitus type 1 maintained on insulin 3. Underlying history of peripheral vascular disease 4. Underlying history of hyperlipidemia 5. Underlying history of bipolar disorder and anxiety disorder 6. Gastroesophageal reflux disease 7. Nausea and vomiting likely related to gastroparesis Will consult gastroenterology, continue with Reglan and Zofran at this time 8. Mental status changes, with somnolence, awaiting urology input. At this time patient is maintained on IV subcu insulin Consult gastroenterology for nausea and vomiting For DVT prophylaxis patient on subcu Lovenox For GI prophylaxis patient on famotidine DC Daigle catheter, possible discharge to home tomorrow Will follow closely
[2020-01-16 20:22] LABS: Glucose,Whole Blood 234 mg/dL (75-99)
[2020-01-16] MEDS: LEVOFLOXACIN 500 MG TAB PO SCH (20:48)
[2020-01-16] MEDS: INSULIN DETEMIR (LEVEMIR) 100 UNIT/ML SYR SQ SCH (20:49)
[2020-01-16] MEDS: ATORVASTATIN 20 MG TAB PO SCH (20:49)
[2020-01-16] MEDS: QUEtiapine 100 MG TAB PO SCH (20:49)
[2020-01-16] MEDS: ALPRAZolam 1 MG TAB PO PRN (20:52)
[2020-01-17 01:40] LABS: Glucose,Whole Blood 44 mg/dL (75-99)
[2020-01-17 01:58] LABS: Glucose,Whole Blood 63 mg/dL (75-99)
[2020-01-17 02:10] LABS: Glucose,Whole Blood 105 mg/dL (75-99)
[2020-01-17 04:27] LABS: Glucose,Whole Blood 149 mg/dL (75-99)
[2020-01-17] MEDS: SODIUM CHLORIDE 0.9% 1,000 ML IV SCH ×3 (05:15→19:45)
[2020-01-17 06:50] LABS: Glucose,Whole Blood 103 mg/dL (75-99)
[2020-01-17 07:10] LABS: Basophils % (A) 0 %; Eosinophils # (A) 0.1 k/uL (0-0.7); Eosinophils % (A) 2 %; HCT 27.7 % (34.0-46.0); HGB 8.5 gm/dL (11.4-16.0); Hypochromasia Moderate; Lymphocytes # (A) 2.4 k/uL (1.0-4.8); Lymphocytes % (A) 51 %; MCH 29.4 pg (25.0-35.0); MCHC 30.7 g/dL (31.0-37.0); MCV 95.8 fL (80.0-100.0); Mean Platelet Volume 8.1; Monocytes # (A) 0.2 k/uL (0-1.0); Monocytes % (A) 4 %; Neutrophils # (A) 1.9 k/uL (1.3-7.7); Neutrophils % (A) 41 %; Platelet Count 192 k/uL (150-450); RBC 2.89 m/uL (3.80-5.40); RDW 15.5 % (11.5-15.5); WBC 4.7 k/uL (3.8-10.6)
[2020-01-17 07:21] LABS: Albumin 2.4 g/dL (3.5-5.0); Calcium 8.4 mg/dL (8.4-10.2); Potassium 4.6 mmol/L (3.5-5.1); Total Bilirubin 0.2 mg/dL (0.2-1.3); Total Protein 5.2 g/dL (6.3-8.2)
[2020-01-17] MEDS: INSULIN ASPART (NovoLOG) 100 UNIT/ML VIAL SQ SCH ×4 (07:32→21:34)
[2020-01-17] MEDS: METOCLOPRAMIDE 10 MG TAB PO SCH ×3 (07:34→17:03)
[2020-01-17] MEDS: PANTOPRAZOLE 40 MG TABLET PO SCH (07:52)
[2020-01-17] MEDS: ASPIRIN 81 MG PO SCH (07:52)
[2020-01-17] MEDS: DIVALPROEX 250 MG TABLET.DR PO SCH ×3 (07:53→21:34)
[2020-01-17] MEDS: ENOXAPARIN 40 MG/0.4 ML SYRINGE SQ SCH (07:53)
[2020-01-17] MEDS: DULoxetine HCL 60 MG CAPSULE.DR PO SCH (07:53)
[2020-01-17] MEDS: QUEtiapine 25 MG TAB PO SCH ×2 (07:54→21:34)
[2020-01-17] MEDS: LOSARTAN 50 MG TAB PO SCH (07:54)
[2020-01-17] MEDS: FAMOTIDINE 20 MG TAB PO SCH (07:54)
[2020-01-17 11:34] LABS: Glucose,Whole Blood 318 mg/dL (75-99)
--- NOTE | 2020-01-17 14:39 | EEG ---
ELECTROENCEPHALOGRAM REPORT DATE OF SERVICE: 01/17/2020. PREAMBLE: This is a 59-year-old female with altered mental status, possible seizure. This study is performed to evaluate for any epileptiform activity. EEG FINDINGS: This is a 21 channel routine EEG recording patient utilizing 10/20 international system with referential and bipolar montages. The background consists of well- developed and regulated moderate voltage activity seen mainly in the left hemispheric region in 8-9 hertz alpha, and reactive to eye opening and closing. There is continuous polymorphic delta slowing in the right frontotemporal region. Frequent right mid temporal sharp and slow waves were seen. No electrographic seizure was recorded. Different stages of sleep were not seen. Photic driving response was not seen. IMPRESSION: This is an abnormal EEG due to presence of continuous focal slowing and frequent epileptiform discharges involving the right temporal region. This is suggestive of focal cortical neuronal dysfunction with cortical irritability and tendency for seizures. This patient has a predisposition for complex partial and secondary generalized seizures. Clinical correlation is recommended. MMSHILOH / CHRISTOFER: [id number] / ISIDRA
--- NOTE | 2020-01-17 16:17 | P.PN ---
Subjective Progress Note Date: 01/17/20 Melva Jackson, is a 59-year-old female who was brought in to [facility] emergency room via EMS, was elevated blood glucose of 542, elevated BUN and creatinine of 49 and 1.54 and positive ketones, patient was started on IV fluid, IV insulin drip and was admitted to intensive care unit for diabetic ketoacidosis. Patient was complaining of nausea, otherwise she denies any complaints there is no fever or chills no headache or dizziness no chest pain no shortness of breath no cough no abdominal pain no diarrhea no burning with urination no frequency or urgency and no hematuria. Patient has known history of diabetes mellitus type 1 she also has known history of peripheral vascular disease with previous history of toe amputation, history of bipolar disorder, history of hyperlipidemia, and history of anxiety disorder On 01/12/2020, patient was seen and examined in the ICU, she is alert and oriented 3 in no apparent distress, she is complaining of nausea and vomiting and very poor oral intake, otherwise she denies any complaints, there is no fever or chills no headache or dizziness no chest pain no shortness of breath no cough no abdominal pain no diarrhea no burning with urination no frequency or urgency and no hematuria. On 01/13/2020 patient was seen and examined in the ICU she is alert and oriented 3 in no distress she had an episode of hypoglycemia this morning her glucose was slightly elevated and she received 5 units of NovoLog before her breakfast however patient refused to eat breakfast and subsequently she had an episode of hypoglycemia. Case was discussed in details with her nurse, at this time will check glucose prior to each meal but give the sliding scale insulin only after she eats at least 50% of her meal otherwise cancel the insulin dose and recheck again prior to the next meal. Patient is still complaining of some nausea otherwise no vomiting she has some abdominal pain no fever or chills no headache or dizziness no cough no chest pain no shortness of breath no diarrhea no burning with urination no frequency or urgency and no hematuria On 01/14/2020 patient was seen and examined on the medical floor she is alert and oriented 3 in no apparent distress there is no fever or chills no headache or dizziness no chest pain no shortness of breath no cough no nausea or vomiting no abdominal pain no diarrhea no burning with urination no frequency or urgency and no hematuria, glucose levels are better controlled there are no new episodes of hypoglycemia. On 01/15/2020 patient was seen and examined on the medical floor she is alert and oriented 3 in no distress there is no fever or chills no headache or dizziness no chest pain no shortness of breath no cough, neck pain and vomiting has improved significantly patient is tolerating diet, there is no diarrhea no burning with urination no frequency or urgency and no hematuria. On 01/16/2020 patient was seen and examined on the medical floor, I came to see this patient in the morning and she was obtunded and nonresponsive which is a major change from her condition yesterday glucose level was checked stat and was 112 code stroke was called patient underwent computed tomography scan of the brain which did not reveal any evidence of acute intracranial abnormality, possibly patient had a seizure with postictal state, neurology consultation was requested and seizure precautions initiated. On 01/17/2020 patient was seen and examined on the medical floor she is alert and oriented 3 in no apparent distress until status improved significantly since yesterday there is no fever or chills no headache or dizziness no chest pain no shortness of breath no cough no nausea or vomiting no abdominal pain no diarrhea no burning with urination no frequency or urgency and no hematuria. At this time we are awaiting EEG results and input from neurology to assess if patient should be continued on Depakote or have any other seizure medications. Possible discharge to home tomorrow. Objective - Vital Signs Vital signs: Vital Signs Temp 98.4 F 01/17/20 14:54 Pulse 97 01/17/20 14:54 Resp 20 01/17/20 14:54 BP 118/67 01/17/20 14:54 Pulse Ox 100 01/17/20 14:54 Intake & Output 01/16/20 01/17/20 01/17/20 18:59 06:59 18:59 Intake Total 240 Balance 240 Intake: Oral 240 Other: Voiding Method Diaper Diaper Diaper # Voids 1 2 1 # Bowel Movements 0 - Exam In general patient is obtunded, responsive to stimuli, nonverbal, in no apparent distress HEENT head normocephalic and atraumatic Neck is supple no JVD no goiter no lymphadenopathy Chest exam reveals a few scattered rhonchi no wheezing Cardiac exam reveals regular heart sounds no gallops no murmurs Abdomen is soft nontender no organomegaly with normal bowel sounds Extremity exam reveals no edema no cyanosis or clubbing - Labs CBC & Chem 7: 01/17/20 06:44 01/17/20 06:44 Labs: Abnormal Lab Results - Last 24 Hours (Table) 01/16/20 01/16/20 01/17/20 Range/Units 16:47 20:18 01:36 RBC (3.80-5.40) m/uL Hgb (11.4-16.0) gm/dL Hct (34.0-46.0) % MCHC (31.0-37.0) g/dL Chloride (98-107) mmol/L BUN (7-17) mg/dL POC Glucose (mg/dL) 150 H 234 H 44 L (75-99) mg/dL Total Protein (6.3-8.2) g/dL Albumin (3.5-5.0) g/dL 01/17/20 01/17/20 01/17/20 Range/Units 01:57 02:09 04:25 RBC (3.80-5.40) m/uL Hgb (11.4-16.0) gm/dL Hct (34.0-46.0) % MCHC (31.0-37.0) g/dL Chloride (98-107) mmol/L BUN (7-17) mg/dL POC Glucose (mg/dL) 63 L 105 H 149 H (75-99) mg/dL Total Protein (6.3-8.2) g/dL Albumin (3.5-5.0) g/dL 01/17/20 01/17/20 01/17/20 Range/Units 06:44 06:44 06:49 RBC 2.89 L (3.80-5.40) m/uL Hgb 8.5 L (11.4-16.0) gm/dL Hct 27.7 L (34.0-46.0) % MCHC 30.7 L (31.0-37.0) g/dL Chloride 108 H (98-107) mmol/L BUN 24 H (7-17) mg/dL POC Glucose (mg/dL) 103 H (75-99) mg/dL Total Protein 5.2 L (6.3-8.2) g/dL Albumin 2.4 L (3.5-5.0) g/dL 01/17/20 Range/Units 11:32 RBC (3.80-5.40) m/uL Hgb (11.4-16.0) gm/dL Hct (34.0-46.0) % MCHC (31.0-37.0) g/dL Chloride (98-107) mmol/L BUN (7-17) mg/dL POC Glucose (mg/dL) 318 H (75-99) mg/dL Total Protein (6.3-8.2) g/dL Albumin (3.5-5.0) g/dL Assessment and Plan Plan: 1. Diabetic ketoacidosis 2. Underlying history of diabetes mellitus type 1 maintained on insulin 3. Underlying history of peripheral vascular disease 4. Underlying history of hyperlipidemia 5. Underlying history of bipolar disorder and anxiety disorder 6. Gastroesophageal reflux disease 7. Nausea and vomiting likely related to gastroparesis Will consult gastroenterology, continue with Reglan and Zofran at this time 8. Mental status changes, with somnolence, awaiting urology input. At this time patient is maintained on IV subcu insulin Consult gastroenterology for nausea and vomiting For DVT prophylaxis patient on subcu Lovenox For GI prophylaxis patient on famotidine DC Daigle catheter, possible discharge to home tomorrow Will follow closely
[2020-01-17 16:41] LABS: Glucose,Whole Blood 283 mg/dL (75-99)
--- NOTE | 2020-01-17 16:57 | P.PN ---
Subjective Progress Note Date: 01/17/20 Patient was seen for a follow-up. Patient was undergoing EEG at that time. Patient very alert and awake. Feeling better. Objective - Vital Signs Vital signs: Vital Signs Temp 98.4 F 01/17/20 14:54 Pulse 97 01/17/20 14:54 Resp 20 01/17/20 14:54 BP 118/67 01/17/20 14:54 Pulse Ox 100 01/17/20 14:54 Intake & Output 01/16/20 01/17/20 01/17/20 18:59 06:59 18:59 Intake Total 240 Balance 240 Intake: Oral 240 Other: Voiding Method Diaper Diaper Diaper # Voids 1 2 1 # Bowel Movements 0 - Exam Deferred. - Labs CBC & Chem 7: 01/17/20 06:44 01/17/20 06:44 Labs: Abnormal Lab Results - Last 24 Hours (Table) 01/16/20 01/17/20 01/17/20 Range/Units 20:18 01:36 01:57 RBC (3.80-5.40) m/uL Hgb (11.4-16.0) gm/dL Hct (34.0-46.0) % MCHC (31.0-37.0) g/dL Chloride (98-107) mmol/L BUN (7-17) mg/dL POC Glucose (mg/dL) 234 H 44 L 63 L (75-99) mg/dL Total Protein (6.3-8.2) g/dL Albumin (3.5-5.0) g/dL 01/17/20 01/17/20 01/17/20 Range/Units 02:09 04:25 06:44 RBC 2.89 L (3.80-5.40) m/uL Hgb 8.5 L (11.4-16.0) gm/dL Hct 27.7 L (34.0-46.0) % MCHC 30.7 L (31.0-37.0) g/dL Chloride (98-107) mmol/L BUN (7-17) mg/dL POC Glucose (mg/dL) 105 H 149 H (75-99) mg/dL Total Protein (6.3-8.2) g/dL Albumin (3.5-5.0) g/dL 01/17/20 01/17/20 01/17/20 Range/Units 06:44 06:49 11:32 RBC (3.80-5.40) m/uL Hgb (11.4-16.0) gm/dL Hct (34.0-46.0) % MCHC (31.0-37.0) g/dL Chloride 108 H (98-107) mmol/L BUN 24 H (7-17) mg/dL POC Glucose (mg/dL) 103 H 318 H (75-99) mg/dL Total Protein 5.2 L (6.3-8.2) g/dL Albumin 2.4 L (3.5-5.0) g/dL 01/17/20 Range/Units 16:39 RBC (3.80-5.40) m/uL Hgb (11.4-16.0) gm/dL Hct (34.0-46.0) % MCHC (31.0-37.0) g/dL Chloride (98-107) mmol/L BUN (7-17) mg/dL POC Glucose (mg/dL) 283 H (75-99) mg/dL Total Protein (6.3-8.2) g/dL Albumin (3.5-5.0) g/dL Assessment and Plan Assessment: * 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 * History of right MCA territory CVA, with left hemiplegia. * Diabetes, poorly controlled. * History of chronic heavy tobacco use in the past. Plan: * EEG was significantly abnormal with presence of continuous focal slowing and frequent epileptiform discharges involving the right temporal region. This is suggestive of focal cortical neuronal dysfunction with underlying cortical irritability and tendency for seizure. This patient has predisposition for complex partial and secondary generalized seizures. * Patient currently is on Depakote 250 mg 3 times a day, and level is therapeutic 56.1. We will add Vimpat 50 mg twice a day. Suggest patient follow-up with neurologist locally for management of seizure disorder. * CTA of head and neck are normal. * Clear for discharge in a.m. if stays stable overnight.
[2020-01-17] MEDS: ALPRAZolam 1 MG TAB PO PRN (19:45)
[2020-01-17 20:40] LABS: Glucose,Whole Blood 186 mg/dL (75-99)
[2020-01-17] MEDS: LACOSAMIDE 50 MG TABLET PO SCH (21:34)
[2020-01-17] MEDS: QUEtiapine 100 MG TAB PO SCH (21:34)
[2020-01-17] MEDS: LEVOFLOXACIN 500 MG TAB PO SCH (21:34)
[2020-01-17] MEDS: ATORVASTATIN 20 MG TAB PO SCH (21:34)
[2020-01-17] MEDS: INSULIN DETEMIR (LEVEMIR) 100 UNIT/ML SYR SQ SCH (21:35)
[2020-01-18 01:21] LABS: Glucose,Whole Blood 416 mg/dL (75-99)
[2020-01-18 05:06] LABS: Glucose,Whole Blood 388 mg/dL (75-99)
[2020-01-18 07:38] LABS: Glucose,Whole Blood 353 mg/dL (75-99)
[2020-01-18 07:55] VITALS: TEMP 97.7
[2020-01-18] MEDS: INSULIN ASPART (NovoLOG) 100 UNIT/ML VIAL SQ SCH ×2 (08:09→12:08)
[2020-01-18] MEDS: LOSARTAN 50 MG TAB PO SCH (08:10)
[2020-01-18] MEDS: ENOXAPARIN 40 MG/0.4 ML SYRINGE SQ SCH (08:10)
[2020-01-18] MEDS: LACOSAMIDE 50 MG TABLET PO SCH (08:10)
[2020-01-18] MEDS: ASPIRIN 81 MG PO SCH (08:10)
[2020-01-18] MEDS: DULoxetine HCL 60 MG CAPSULE.DR PO SCH (08:10)
[2020-01-18] MEDS: QUEtiapine 25 MG TAB PO SCH (08:10)
[2020-01-18] MEDS: PANTOPRAZOLE 40 MG TABLET PO SCH (08:10)
[2020-01-18] MEDS: FAMOTIDINE 20 MG TAB PO SCH (08:10)
[2020-01-18] MEDS: DIVALPROEX 250 MG TABLET.DR PO SCH (08:11)
[2020-01-18] MEDS: METOCLOPRAMIDE 10 MG TAB PO SCH ×2 (08:11→12:08)
[2020-01-18 11:26] LABS: Glucose,Whole Blood 201 mg/dL (75-99)
[2020-01-18] MEDS: SODIUM CHLORIDE 0.9% 1,000 ML IV SCH (12:08)
--- NOTE | 2020-01-18 13:37 | CDI ---
Documentation Clarification Form Date: 01/18/2020 01:24:57 PM From: Jayda Bowling CCS, CCDS Admit Date: 01/10/2020 02:26:00 PM Patient Name: Melva Jackson Visit Number: [id number] Discharge Date: ATTENTION: The Clinical Documentation Specialists (CDI) and [facility] Coding Staff appreciate your assistance in clarifying documentation. Please respond to the clarification below the line at the bottom and electronically sign. The CDI & [facility] Coding staff will review the response and follow-up if needed. Please note: Queries are made part of the Legal Health Record. If you have any questions, please contact the author of this message via ITS. Dr. Sherlyn Chen: Chronic Kidney Disease is documented in the 01/10 Pulmonary Consult & subsequent 01/11 & 01/12 Progress Notes in the patient's history. History/Risk Factors: Brittle DM I with previous admissions for DKA, Diabetic Foot Ulcers, PVD status post toe amputation, CAD, COPD, DVT, Hyperlipidemia, Hypertension, Osteomyelitis, CVA, Bipolar & Anxiety. Clinical Indicators: Patient presented to the ED on 01/09 with abdominal pain, nausea & vomiting. Recently discharged from the hospital, treated for hyperglycemia. Admitted with DM I with DKA. Patients Historical BUN/CR/GFR 06/10/2017 labs: GFR 53 - >60 GFR this admit: 01/09: 37 - 01/16: 63 Treatment: IV fluid 1,000 @ 999 mls/hr Q1H, IV Zofran, IV Insulin, IV Kcl Nephrology is not consulted on this admission. In order to capture the severity of condition, please clarify the stage of the CKD, if known: CKD is ruled out CKD Stage 2 (GFR 60-89) CKD Stage 3 (GFR 30-59) Other, please specify Unable to determine (Last Revision: July 2019) CKD is ruled out MTDD
[2020-01-18 14:37] VITALS: BP 108/66; PULSE 82; RESP 16
--- NOTE | 2020-01-18 16:30 | P.PN ---
Subjective Progress Note Date: 01/18/20 Patient was seen for a follow-up. Patient was seen earlier before her discharge. Patient very much alert and awake. In no distress. Patient speaking clearly. Denies any side effects of Vimpat. No seizures reported overnight. Objective - Vital Signs Vital signs: Vital Signs Temp 97.7 F 01/18/20 14:07 Pulse 82 01/18/20 14:07 Resp 16 01/18/20 14:07 BP 108/66 01/18/20 14:07 Pulse Ox 98 01/18/20 14:07 Intake & Output 01/17/20 01/18/20 01/18/20 18:59 06:59 18:59 Intake Total 480 Balance 480 Weight 51.1 kg Intake: Oral 480 Other: Voiding Method Diaper Diaper Diaper Incontinent # Voids 2 2 2 - Exam Patient is alert and awake in no distress. Speech is mildly dysarthric but his baseline. Continues to be left hemiplegic. 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 * History of right MCA territory CVA, with left hemiplegia. * Diabetes, poorly controlled. * History of chronic heavy tobacco use in the past. Plan: * EEG was significantly abnormal with presence of continuous focal slowing and frequent epileptiform discharges involving the right temporal region. This is suggestive of focal cortical neuronal dysfunction with underlying cortical irritability and tendency for seizure. This patient has predisposition for complex partial and secondary generalized seizures. * Patient currently is on Depakote 250 mg 3 times a day, and level is therapeutic 56.1. Vimpat 50 mg twice a day has been added to the regimen. So far patient tolerating medication well. Suggest patient follow-up with neurologist locally for management of seizure disorder. * CTA of head and neck are normal. * Clear for discharge from neurology point.
--- NOTE | 2020-01-20 11:20 | CDI ---
Documentation Clarification Form Date: 01/20/20 From: Renita Pena Phone: If you have a question about this query, please contact Elina Vazquez Photoeng[employer] Sketch Maker at [phone] between 8am and 5pm. Admit Date: 01/10/20 Discharge Date:01/18/20 Patient Name: Melva Jackson Visit Number: [id number] ATTENTION: The Clinical Documentation Specialists (CDI) and [facility] Coding Staff appreciate your assistance in clarifying documentation. Please respond to the clarification below the line at the bottom and electronically sign. The CDI & [facility] Coding staff will review the response and follow-up if needed. Please note: Queries are made part of the Legal Health Record. If you have any questions, please contact the author of this message via ITS. Dear Dr. Chen Conflicting documentation has been found in the medical record: You have documented type [address] in your documentation. Dr. Ngo documented longstanding history of type 2 diabetes mellitus in his consult note. Documentation in Dr. Ortiz's consult note states patient has a history of diabetes for last 6 years History/Risk Factors: Diabetic ketoacidosis, brittle diabetes, insulin dependent Clinical Indicators: Elevated glucose, positive ketones, hypoglycemia Treatment: IV Insulin drip, IV fluids In your opinion, what is the most clinically appropriate diagnosis for this patient? Type I diabetes mellitus Type II diabetes mellitus Other explanation of clinical findings Unable to determine (no explanation for clinical findings) Type I diabetes Mellitus MTDD
--- NOTE | 2020-01-20 11:52 | CDI ---
Documentation Clarification Form Date: 01/20/20 From: Renita Pena Phone: If you have a question about this query, please contact Elina Vazquez, Case Manager at [phone] between 8am and 5pm. Admit Date: 01/10/20 Discharge Date:01/18/20 Patient Name: Melva Jackson Visit Number: [id number] ATTENTION: The Clinical Documentation Specialists (CDI) and [facility] Coding Staff appreciate your assistance in clarifying documentation. Please respond to the clarification below the line at the bottom and electronically sign. The CDI & [facility] Coding staff will review the response and follow-up if needed. Please note: Queries are made part of the Legal Health Record. If you have any questions, please contact the author of this message via ITS. Dear Dr. Chen Episode of altered mental status was documented in the neurology consult note. Patient admitted with DKA and probably had a complex partial seizure on 01/15. Patient has post stroke epilepsy per neurology 01/16 & 01/17 progress notes. History/Risk Factors: History of CVA with left hemiplegia, seizure years ago, DKA, occlusion of right internal carotid artery, hypoglycemia Clinical Indicators: altered mental status with unresponsiveness CT: Brain w/o contrast 01/16/20: No intracranial hemorrhage, midline shift or mass effect. Unchanged encephalomalacia of the right frontal, parietal and temporal lobes. CTA: Head and neck 01/16/20: Not significantly changed versus 04/27/17, with chronic occlusion of the right internal carotid artery and diminutive right intracranial anterior circulation with old large right sided encephalomalacia. EEG 01/17/20: Abnormal EEG due to presence of continuous focal slowing and frequent epileptiform discharges involving the right temporal region. This is suggestive of focal cortical neuronal dysfunction with cortical irritability and tendency for seizures. This patient has a predisposition for complex partial and secondary generalized seizures. Treatment: Depakote 250 mg tid, added Vimpat 50 mg bid In your professional opinion, please clarify the etiology of the Altered Mental Status, if known. Delirium (specify cause): Encephalopathy (specify Type and Underlying Medical Illness) Other condition (please specify) Unable to determine Delirium MTDD
--- NOTE | 2020-02-02 13:07 | P.DS ---
Providers Date of admission: 01/10/20 14:26 Expected date of discharge: 01/18/20 Attending physician: Sherlyn Chen Consults: 01/10/20 14:26 Consult Physician Stat Consulting Provider: Mary Clark Consult Reason/Comments: icu, dka Do you want consulting provider notified?: Yes 01/16/20 11:11 Consult Physician Stat Consulting Provider: Jose Carlos Ortiz Consult Reason/Comments: code stroke Do you want consulting provider notified?: Yes Primary care physician: Sherlyn Chen [facility] Course: Diagnoses on discharge: 1. Diabetic ketoacidosis 2. Underlying history of diabetes mellitus type 1 maintained on insulin 3. Underlying history of peripheral vascular disease 4. Underlying history of hyperlipidemia 5. Underlying history of bipolar disorder and anxiety disorder 6. Gastroesophageal reflux disease 7. Nausea and vomiting likely related to gastroparesis Will consult gastroenterology, continue with Reglan and Zofran at this time 8. Mental status changes, with somnolence, awaiting urology input. Hospital course: Melva Jackson, is a 59-year-old female who was brought in to [facility] emergency room via EMS, was elevated blood glucose of 542, elevated BUN and creatinine of 49 and 1.54 and positive ketones, patient was started on IV fluid, IV insulin drip and was admitted to intensive care unit for diabetic ketoacidosis. Patient was complaining of nausea, otherwise she denies any complaints there is no fever or chills no headache or dizziness no chest pain no shortness of breath no cough no abdominal pain no diarrhea no burning with urination no frequency or urgency and no hematuria. Patient has known history of diabetes mellitus type 1 she also has known history of peripheral vascular disease with previous history of toe amputation, history of bipolar disorder, history of hyperlipidemia, and history of anxiety disorder On 01/12/2020, patient was seen and examined in the ICU, she is alert and oriented 3 in no apparent distress, she is complaining of nausea and vomiting and very poor oral intake, otherwise she denies any complaints, there is no fever or chills no headache or dizziness no chest pain no shortness of breath no cough no abdominal pain no diarrhea no burning with urination no frequency or urgency and no hematuria. On 01/13/2020 patient was seen and examined in the ICU she is alert and oriented 3 in no distress she had an episode of hypoglycemia this morning her glucose was slightly elevated and she received 5 units of NovoLog before her breakfast however patient refused to eat breakfast and subsequently she had an episode of hypoglycemia. Case was discussed in details with her nurse, at this time will check glucose prior to each meal but give the sliding scale insulin only after she eats at least 50% of her meal otherwise cancel the insulin dose and recheck again prior to the next meal. Patient is still complaining of some nausea otherwise no vomiting she has some abdominal pain no fever or chills no headache or dizziness no cough no chest pain no shortness of breath no diarrhea no burning with urination no frequency or urgency and no hematuria On 01/14/2020 patient was seen and examined on the medical floor she is alert and oriented 3 in no apparent distress there is no fever or chills no headache or dizziness no chest pain no shortness of breath no cough no nausea or vomiting no abdominal pain no diarrhea no burning with urination no frequency or urgency and no hematuria, glucose levels are better controlled there are no new episodes of hypoglycemia. On 01/15/2020 patient was seen and examined on the medical floor she is alert and oriented 3 in no distress there is no fever or chills no headache or di zziness no chest pain no shortness of breath no cough, neck pain and vomiting has improved significantly patient is tolerating diet, there is no diarrhea no burning with urination no frequency or urgency and no hematuria. On 01/16/2020 patient was seen and examined on the medical floor, I came to see this patient in the morning and she was obtunded and nonresponsive which is a major change from her condition yesterday glucose level was checked stat and was 112 code stroke was called patient underwent computed tomography scan of the brain which did not reveal any evidence of acute intracranial abnormality, possibly patient had a seizure with postictal state, neurology consultation was requested and seizure precautions initiated. On 01/17/2020 patient was seen and examined on the medical floor she is alert and oriented 3 in no apparent distress until status improved significantly since yesterday there is no fever or chills no headache or dizziness no chest pain no shortness of breath no cough no nausea or vomiting no abdominal pain no diarrhea no burning with urination no frequency or urgency and no hematuria. At this time we are awaiting EEG results and input from neurology to assess if patient should be continued on Depakote or have any other seizure medications. Possible discharge to home tomorrow. Patient Condition at Discharge: Critical Plan - Discharge Summary Discharge Rx Participant: No New Discharge Prescriptions: New Losartan [Cozaar] 50 mg PO DAILY tab Metoclopramide [Reglan] 10 mg PO AC-TID tab Lacosamide [Vimpat] 50 mg PO BID tablet Continue Famotidine [Pepcid] 20 mg PO DAILY HYDROcodone/APAP 10-325MG [[place] 10-325] 1 tab PO TID PRN PRN Reason: Pain DULoxetine HCL [Cymbalta] 60 mg PO DAILY QUEtiapine [SEROquel] 100 mg PO HS Atorvastatin [Lipitor] 20 mg PO DAILY Aspirin [Adult Low Dose Aspirin EC] 81 mg PO DAILY Ferrous Sulfate [Iron (65 MG Elemental)] 325 mg PO DAILY INSULIN LISPRO (humaLOG) [humaLOG] See Protocol SQ ACHS Divalproex [Depakote] 250 mg PO TID #90 tablet. ALPRAZolam [Xanax] 1 mg PO Q8H PRN PRN Reason: Anxiety Albuterol Sulfate [Ventolin HFA] 2 puff INHALATION RT-Q4H PRN PRN Reason: Shortness Of Breath Valproic Acid [Depakene] 250 mg PO DAILY Ondansetron Odt [Zofran ODT] 4 mg PO DAILY PRN PRN Reason: Nausea QUEtiapine [SEROquel] 25 mg PO BID Pantoprazole Sodium [Protonix] 20 mg PO DAILY No Action Insulin Glargine,Hum.rec.anlog [Maria Victoria Pearson U-100] 15 unit SQ HS Ascorbic Acid [Vitamin C] 500 mg PO DAILY Vitamin B Complex 1 tab PO DAILY Discharge Medication List Famotidine [Pepcid] 20 mg PO DAILY 07/19/15 [History] HYDROcodone/APAP 10-325MG [[place] 10-325] 1 tab PO TID PRN 10/03/16 [History] DULoxetine HCL [Cymbalta] 60 mg PO DAILY 02/16/17 [History] Atorvastatin [Lipitor] 20 mg PO DAILY 12/28/18 [History] QUEtiapine [SEROquel] 100 mg PO HS 12/28/18 [History] Aspirin [Adult Low Dose Aspirin EC] 81 mg PO DAILY 06/09/19 [History] Ferrous Sulfate [Iron (65 MG Elemental)] 325 mg PO DAILY 06/09/19 [History] INSULIN LISPRO (humaLOG) [humaLOG] See Protocol SQ ACHS 08/13/19 [History] Divalproex [Depakote] 250 mg PO TID #90 tablet. 08/17/19 [Rx] ALPRAZolam [Xanax] 1 mg PO Q8H PRN 12/26/19 [History] Albuterol Sulfate [Ventolin HFA] 2 puff INHALATION RT-Q4H PRN 12/26/19 [History] Ondansetron Odt [Zofran ODT] 4 mg PO DAILY PRN 12/26/19 [History] Valproic Acid [Depakene] 250 mg PO DAILY 12/26/19 [History] Pantoprazole Sodium [Protonix] 20 mg PO DAILY 01/10/20 [History] QUEtiapine [SEROquel] 25 mg PO BID 01/10/20 [History] Lacosamide [Vimpat] 50 mg PO BID tablet 01/18/20 [Rx] Losartan [Cozaar] 50 mg PO DAILY tab 01/18/20 [Rx] Metoclopramide [Reglan] 10 mg PO AC-TID tab 01/18/20 [Rx] Ascorbic Acid [Vitamin C] 500 mg PO DAILY 01/29/20 [History] Insulin Glargine,Hum.rec.anlog [Basaglar Kwikpen U-100] 15 unit SQ HS 01/29/20 [History] Vitamin B Complex 1 tab PO DAILY 01/29/20 [History] Follow up Appointment(s)/Referral(s): [facility], [NON-STAFF] - 1-2 Days Sherlyn Chen MD [Primary Care Provider] - 1-2 days Patient Instructions/Handouts: Diabetic Ketoacidosis (DC) Discharge Disposition: HOME WITH HOME HEALTH SERVICES
== END 2020-01-18 15:38 | disposition home health service (06) | DRG 637 ==
LOC: EC 11:07 → 2SICU 14:26 → 4SSUR 01-14 09:32
PROVIDERS: ADMIT Internal Medicine; ATTEND Internal Medicine
PROC: 05H933Z Insertion of Infusion Device into Right Brachial Vein, Percutaneous Approach (ICD-10-PCS; principal; 2020-01-12 11:10)
DX: E10.10 Type 1 diabetes mellitus with ketoacidosis without coma (principal); J18.9 Pneumonia, unspecified organism; N17.9 Acute kidney failure, unspecified; I69.354 Hemiplegia and hemiparesis following cerebral infarction affecting left non-dominant side; G40.209 Localization-related (focal) (partial) symptomatic epilepsy and epileptic syndromes with complex partial seizures, not intractable, without status epilepticus; J44.0 Chronic obstructive pulmonary disease with (acute) lower respiratory infection; J98.11 Atelectasis; G93.89 Other specified disorders of brain; E10.319 Type 1 diabetes mellitus with unspecified diabetic retinopathy without macular edema; E10.43 Type 1 diabetes mellitus with diabetic autonomic (poly)neuropathy; E10.42 Type 1 diabetes mellitus with diabetic polyneuropathy; E10.51 Type 1 diabetes mellitus with diabetic peripheral angiopathy without gangrene; F31.9 Bipolar disorder, unspecified; Z79.4 Long term (current) use of insulin; Z89.411 Acquired absence of right great toe; Z89.421 Acquired absence of other right toe(s); M19.90 Unspecified osteoarthritis, unspecified site; K31.84 Gastroparesis; I10 Essential (primary) hypertension; E03.9 Hypothyroidism, unspecified; E78.5 Hyperlipidemia, unspecified; R41.0 Disorientation, unspecified; F41.9 Anxiety disorder, unspecified; I69.398 Other sequelae of cerebral infarction; I25.10 Atherosclerotic heart disease of native coronary artery without angina pectoris; I25.2 Old myocardial infarction; K21.9 Gastro-esophageal reflux disease without esophagitis; I65.21 Occlusion and stenosis of right carotid artery; R32 Unspecified urinary incontinence; Z86.79 Personal history of other diseases of the circulatory system; Z79.82 Long term (current) use of aspirin; Z79.899 Other long term (current) drug therapy; Z86.718 Personal history of other venous thrombosis and embolism; Z90.710 Acquired absence of both cervix and uterus; Z95.5 Presence of coronary angioplasty implant and graft; Z99.3 Dependence on wheelchair; Z96.1 Presence of intraocular lens; Z98.42 Cataract extraction status, left eye; Z98.41 Cataract extraction status, right eye; Z88.5 Allergy status to narcotic agent; Z88.0 Allergy status to penicillin; Z88.8 Allergy status to other drugs, medicaments and biological substances; Z87.01 Personal history of pneumonia (recurrent); Z87.891 Personal history of nicotine dependence; Z91.030 Bee allergy status; Z86.14 Personal history of Methicillin resistant Staphylococcus aureus infection; Z90.49 Acquired absence of other specified parts of digestive tract; Z82.49 Family history of ischemic heart disease and other diseases of the circulatory system; Z82.5 Family history of asthma and other chronic lower respiratory diseases; Z83.3 Family history of diabetes mellitus; Y95 Nosocomial condition
CPT/HCPCS: 36410; 36415; 70450; 70496; 70498; 71045; 74018; 76937; 80048; 80051; 80053; 80164; 81001; 82009; 82803; 83605; 83690; 84145; 84484; 85025; 85027; 85610; 85730; 93005; 94640; 95816; 96361; 96374; 99285

== ENCOUNTER 2020-01-28 21:15 | Inpatient (IN) | payer OTHER ==
[2020-01-28 21:20] LABS: Glucose,Whole Blood 127 mg/dL (75-99)
[2020-01-28] MEDS ORDERED: SODIUM CHLORIDE 0.9% 1,000 ML IV ONE (21:30)
[2020-01-28 21:50] LABS: Basophils % (A) 1 %; Eosinophils # (A) 0.1 k/uL (0-0.7); Eosinophils % (A) 1 %; HCT 24.7 % (34.0-46.0); HGB 7.9 gm/dL (11.4-16.0); Lymphocytes # (A) 2.3 k/uL (1.0-4.8); Lymphocytes % (A) 47 %; MCH 29.9 pg (25.0-35.0); MCHC 31.8 g/dL (31.0-37.0); MCV 93.9 fL (80.0-100.0); Mean Platelet Volume 8.1; Monocytes # (A) 0.2 k/uL (0-1.0); Monocytes % (A) 5 %; Neutrophils # (A) 2.3 k/uL (1.3-7.7); Neutrophils % (A) 46 %; Platelet Count 184 k/uL (150-450); RBC 2.63 m/uL (3.80-5.40); RDW 15.2 % (11.5-15.5); WBC 4.9 k/uL (3.8-10.6)
[2020-01-28 21:59] LABS: Partial Thromboplastin Time 22.8 sec (22.0-30.0)
--- NOTE | 2020-01-28 22:02 | CT ---
EXAMINATION TYPE: CT brain wo con DATE OF EXAM: 01/28/2020 COMPARISON: 08/13/2019 HISTORY: 59 year-old female altered mental status, confusion, possible seizure. TECHNIQUE: Examination was done in axial plane without intravenous contrast. Coronal and sagittal r econstructions performed. CT DLP: 1047.4 mGycm Automated exposure control for dose reduction was used. FINDINGS: There is no evidence of acute intracranial hemorrhage, acute ischemic changes, mass, mass-effect, or extra-axial fluid collection. There is no effacement of cerebral sulci or basal subarachnoid cister ns. There is no hydrocephalus. There is no midline shift. Thakkar-white matter distinction is preserv ed. Paranasal sinuses and mastoid air cells are well pneumatized. Orbits and globes are intact. Stable central cerebral atrophy and mild ventriculomegaly. Large area of encephalomalacia right front al parietal and temporal lobes unchanged. No mass effect or midline shift. Scattered dystrophic calci fications are unchanged. No evidence for acute intracranial hemorrhage. No effacement of basal subarachnoid cisterns. No extra axial fluid collection. IMPRESSION: 1. Unchanged large area of encephalomalacia right MCA distribution suggesting prior large infarct. 2. Stable mild ventriculomegaly which could related to central cerebral atrophy or a component of NPH . Clinically correlate. No acute intracranial abnormality seen.
[2020-01-28 22:04] LABS: ALT 14 U/L (4-34); AST 17 U/L (14-36); African American GFR (CKD) 63 (>60 ml/min/1.73 sqM); Albumin 2.6 g/dL (3.5-5.0); Alkaline Phosphatase 59 U/L (38-126); Anion Gap 3 mmol/L; Blood Urea Nitrogen 32 mg/dL (7-17); C Reactive Protein <5.0 mg/L (<10.0); Carbon Dioxide 26 mmol/L (22-30); Chloride 109 mmol/L (98-107); Creatine Kinase 25 U/L (30-135); Glucose 120 mg/dL (74-99); Non-African American GFR(CKD) 55 (>60 ml/min/1.73 sqM); Potassium 4.4 mmol/L (3.5-5.1); Sodium 138 mmol/L (137-145); Total Bilirubin 0.1 mg/dL (0.2-1.3); Total Protein 5.3 g/dL (6.3-8.2)
--- NOTE | 2020-01-28 22:08 | XR ---
EXAMINATION TYPE: XR chest 2V, XR foot complete 3 views RT DATE OF EXAM: 01/28/2020 COMPARISON: Chest 01/13/2020 HISTORY: 59 year-old female altered mental status, low blood pressure, confusion, right foot infectio n and pain. FINDINGS: Chest: Heart upper limits of normal in size. Mild interstitial prominence is unchanged. Patient is rotated t oward the left. No consolidation or pleural effusion seen. Right foot: Diffuse soft tissue swelling of the foot. Prior amputation of most of the fifth ray. A fragment of th e proximal phalangeal base and the proximal metatarsal remains. At the second ray, there is some resi dual bone relating to the proximal phalangeal base. The remainder of the toe is absent. There is a comminuted fracture of the proximal first metatarsal shaft and at the level of the metatar marisol head and neck area the big toe is otherwise absent. Fracture margins are ill-defined and some ero sive changes difficult to exclude. There is a 8 mm linear density retained in the plantar heel soft tissues. Additional retained 7 mm lo ng density in the plantar fourth toe soft tissues. IMPRESSION: 1. Chest: Rotated exam. Chronic appearing changes without acute process. 2. Right foot: Diffuse soft tissue swelling suggesting cellulitis. Multiple prior toe amputations. Th ere is comminuted fracture of the first metatarsal shaft. Some of these fracture margins are ill-defi faisal and erosive change relating to superimposed osteomyelitis is not excluded. Direct comparison to a [place] available outside priors may be helpful to assess for any interval changes. 3. Right foot: Suspect small needle fragments retained within the planter heel soft tissues and also along the plantar soft tissues of the fourth toe.
[2020-01-28 22:29] LABS: Appearance,Urine Clear (Clear); Bilirubin,Urine Negative (Negative); Blood,Urine Negative (Negative); Color,Urine Yellow; Glucose,Urine (UA) 2+ (Negative); Hyaline Casts,Urine 6 /lpf (0-2); Ketones,Urine Negative (Negative); Leukocyte Esterase,Urine Moderate (Negative); Nitrite,Urine Negative (Negative); Protein,Urine Negative (Negative); RBC,Urine 2 /hpf (0-5); Specific Gravity,Urine 1.013 (1.001-1.035); Squamous Epithelial Cell,Urine <1 /hpf (0-4); Urobilinogen,Urine <2.0 mg/dL (<2.0); WBC,Urine 77 /hpf (0-5)
[2020-01-28] MEDS ORDERED: VANCOMYCIN IV PER PHARMACY 1 EACH MISC MISCELLANE PRN (22:41)
[2020-01-28] MEDS ORDERED: VANCOMYCIN 1,000 MG in SODIUM CHLORIDE 0.9% 250 ML IVPB STA (22:44)
[2020-01-28] MEDS ORDERED: NALOXONE 0.4 MG/ML 1 ML VIAL IV PRN (22:46)
--- NOTE | 2020-01-28 22:46 | ED ---
Altered Mental Status HPI - General Chief Complaint: Altered Mental Status Stated Complaint: Seizure Time Seen by Provider: 01/28/20 21:20 Source: patient, EMS Mode of arrival: EMS Limitations: altered mental status - History of Present Illness Initial Comments: Patient is a 59-year-old female with past medical history of CVA, diabetes, hypertension, seizure disorder who presents to the emergency department after an episode of altered mental status. He was reported the patient was found unresponsive at home. The episode was unwitnessed. When EMS arrived they found that the patient was only responsive to tactile stimuli however she was nonverbal. Blood pressure was notably low. She was transferred to the hospital became more alert upon transfer. Vitals were obtained and she continued to be hypotensive. She was given a 200 mL bolus. Patient arising cannot provide a history. States that she doesn't know what happened. Brother also arrives to the hospital and states that he was not present when the patient had this episode. Physical exam demonstrates the patient does have a red, swollen right foot where there are previous amputations. Patient states that he has been more red in nature. She denies cough or hemoptysis. No melanic stools or hematochezia. No changes in her urination. Denies any headaches or visual changes. No trauma noted. The remainder of the HPI is limited because she is a very poor historian and family at bedside cannot provide history - Related Data Home Medications Medication Instructions Recorded Confirmed Famotidine [Pepcid] 20 mg PO DAILY 07/19/15 01/29/20 HYDROcodone/APAP 10-325MG [[place] 1 tab PO TID PRN 10/03/16 01/29/20 10-325] DULoxetine HCL [Cymbalta] 60 mg PO DAILY 02/16/17 01/29/20 Atorvastatin [Lipitor] 20 mg PO DAILY 12/28/18 01/29/20 QUEtiapine [SEROquel] 100 mg PO HS 12/28/18 01/29/20 Aspirin [Adult Low Dose Aspirin EC] 81 mg PO DAILY 06/09/19 01/29/20 Ferrous Sulfate [Iron (65 MG 325 mg PO DAILY 06/09/19 01/29/20 Elemental)] INSULIN LISPRO (humaLOG) [humaLOG] See Protocol SQ ACHS 08/13/19 01/29/20 ALPRAZolam [Xanax] 1 mg PO Q8H PRN 12/26/19 01/29/20 Albuterol Sulfate [Ventolin HFA] 2 puff INHALATION RT-Q4H PRN 12/26/19 01/29/20 Ondansetron Odt [Zofran ODT] 4 mg PO DAILY PRN 12/26/19 01/29/20 Valproic Acid [Depakene] 250 mg PO DAILY 12/26/19 01/29/20 Pantoprazole Sodium [Protonix] 20 mg PO DAILY 01/10/20 01/29/20 QUEtiapine [SEROquel] 25 mg PO BID 01/10/20 01/29/20 Ascorbic Acid [Vitamin C] 500 mg PO DAILY 01/29/20 01/29/20 Insulin Glargine,Hum.rec.anlog 15 unit SQ HS 01/29/20 01/29/20 [Basaglar Lili U-100] Vitamin B Complex 1 tab PO DAILY 01/29/20 01/29/20 Previous Rx's Medication Instructions Recorded Divalproex [Depakote] 250 mg PO TID #90 tablet. 08/17/19 Lacosamide [Vimpat] 50 mg PO BID tablet 01/18/20 Losartan [Cozaar] 50 mg PO DAILY tab 01/18/20 Metoclopramide [Reglan] 10 mg PO AC-TID tab 01/18/20 Allergies Allergy/AdvReac Type Severity Reaction Status Date / Time Barbiturates Allergy Rash/Hives Verified 01/29/20 10:04 cephalexin monohydrate Allergy Rash/Hives Verified 01/29/20 10:04 [From Keflex] morphine Allergy Rash/Hives Verified 01/29/20 10:04 Penicillins Allergy Rash/Hives Verified 01/29/20 10:04 phenobarbital Allergy Swelling Verified 01/29/20 10:04 venom-honey bee Allergy Swelling Verified 01/29/20 10:04 [bee venom (honey bee)] amlodipine besylate AdvReac Vomiting Verified 01/29/20 10:04 [From Norvasc] Review of Systems ROS Statement: Those systems with pertinent positive or pertinent negative responses have been documented in the HPI. ROS Other: All systems not noted in ROS Statement are negative. Past Medical History Past Medical History: Asthma, Coronary Artery Disease (CAD), Chest Pain / Angina, Heart Failure, COPD, CVA/TIA, Diabetes Mellitus, Deep Vein Thrombosis (DVT), Eye Disorder, GERD/Reflux, Hyperlipidemia, Hypertension, Myocardial Infarction ([place]), Neurologic Disorder, Osteoarthritis (OA), Pneumonia, Renal Disease Additional Past Medical History / Comment(s): IDDM (brittle), DKAs, neuropathy bilateral hands/feet, retinopathy bilateral eyes, cellulitis R foot, R great toe and 2nd toe infections/amputations, current wound R foot-being seen in [facility], renal failure, anemia, CVAs with L sided paralysis, headaches started after CVAs, brain lesions, DVT R axillae, low back pain, varicosities, seizure many years ago (2001), hypothyroid, constipation, bilateral tinnitis occasionally, sinus problems. Last Myocardial Infarction Date:: 2011 History of Any Multi-Drug Resistant Organisms: MRSA Date of last positivie culture/infection: 09/06/17 MDRO Source:: Right Foot Past Surgical History: Appendectomy, Section, Cholecystectomy, Heart Catheterization With Stent, Hysterectomy, Orthopedic Surgery Additional Past Surgical History / Comment(s): PCI with multiple stents, R great toe and 2nd toe amps, debridements R foot ulcer, L shoulder surgery to remove bone, bronchoscopy, EGD, colonoscopy, R arm port since removed, bilateral cataract removals/lens implants. Past Anesthesia/Blood Transfusion Reactions: No Reported Reaction Additional Past Anesthesia/Blood Transfusion Reaction / Comment(s): HX OF BLOOD TRANSFUSION- NO REACTION Date of Last Stent Placement:: July 2012 Past Psychological History: Anxiety, Bipolar, Depression Smoking Status: Never smoker Past Alcohol Use History: None Reported Past Drug Use History: Marijuana - Past Family History Father Family Medical History: Unable to Obtain, Coronary Artery Disease (CAD), Diabetes Mellitus Mother Family Medical History: COPD General Exam Limitations: altered mental status General appearance: alert, in no apparent distress Head exam: Present: atraumatic, normocephalic, normal inspection Eye exam: Present: normal appearance, PERRL, EOMI. Absent: scleral icterus, conjunctival injection, periorbital swelling ENT exam: Present: mucous membranes dry Neck exam: Present: normal inspection. Absent: tenderness, meningismus, lymp hadenopathy Respiratory exam: Present: normal lung sounds bilaterally. Absent: respiratory distress, wheezes, rales, rhonchi, stridor Cardiovascular Exam: Present: regular rate, normal rhythm, normal heart sounds. Absent: systolic murmur, diastolic murmur, rubs, gallop, clicks GI/Abdominal exam: Present: soft, normal bowel sounds. Absent: distended, tenderness, guarding, rebound, rigid Extremities exam: Present: other (previous amputations right foot. erythema and edema over medial aspect of digit overlying abrasions. 2+ DP and PT pulses) Course Vital Signs 01/28/20 01/28/20 01/28/20 21:17 21:23 22:23 Temperature 97.3 F L Pulse Rate 69 70 59 L Respiratory 16 16 16 Rate Blood Pressure 67/55 99/48 111/60 O2 Sat by Pulse 99 100 99 Oximetry 01/28/20 01/29/20 01/29/20 23:08 01:00 02:03 Temperature Pulse Rate 57 L 52 L 85 Respiratory 16 16 16 Rate Blood Pressure 93/51 88/49 102/56 O2 Sat by Pulse 99 99 96 Oximetry Medical Decision Making - Medical Decision Making Upon arrival the patient was placed into trauma bay 1. A thorough history and physical exam was performed. Blood pressure is noted to be 67/55. Patient is given a liter bolus of normal saline with rapid improvement in blood pressure and mentation. Laboratory studies were conducted. Patient went for an x-ray of her right foot and a CT of her brain. Hemoglobin noted to be 7.9. Patient is chronically anemic. Urinalysis does demonstrate 77 white blood cells and moderate leukocyte esterase. Valproic acid level is subtherapeutic. Acetone negative. Foot x-ray does demonstrate diffuse soft tissue swelling suggesting cellulitis. Multiple prior toe amputations. Comminuted fracture the first metatarsal shaft. Fracture margins are ill-defined and erosive change relating to superimposed Harish myelitis is not excluded. Suspected small needle fragments retained within the heel and also along the plantar soft tissues the fourth toe. Blood cultures obtained. Patient is initiated on Vanco. She does have multiple antibiotic ALLERGIES. I did recommend hospital admission for the patient did agree to. Discussed case with Dr. Nava who accepted admission. Patient's currently awaiting a bed on the floor - Lab Data Result diagrams: 02/01/20 05:35 02/01/20 05:35 Lab Results 08/30/20 08/30/20 08/30/20 Range/Units 21:18 21:36 21:36 WBC 4.9 (3.8-10.6) k/uL RBC 2.63 L (3.80-5.40) m/uL Hgb 7.9 L (11.4-16.0) gm/dL Hct 24.7 L (34.0-46.0) % MCV 93.9 (80.0-100.0) fL MCH 29.9 (25.0-35.0) pg MCHC 31.8 (31.0-37.0) g/dL RDW 15.2 (11.5-15.5) % Plt Count 184 (150-450) k/uL Neutrophils % 46 % Lymphocytes % 47 % Monocytes % 5 % Eosinophils % 1 % Basophils % 1 % Neutrophils # 2.3 (1.3-7.7) k/uL Lymphocytes # 2.3 (1.0-4.8) k/uL Monocytes # 0.2 (0-1.0) k/uL Eosinophils # 0.1 (0-0.7) k/uL Basophils # 0.0 (0-0.2) k/uL PT 10.0 (9.0-12.0) sec INR 1.0 (<1.2) APTT 22.8 (22.0-30.0) sec Sodium (137-145) mmol/L Potassium (3.5-5.1) mmol/L Chloride (98-107) mmol/L Carbon Dioxide (22-30) mmol/L Anion Gap mmol/L BUN (7-17) mg/dL Creatinine (0.52-1.04) mg/dL Est GFR (CKD-EPI)AfAm (>60 ml/min/1.73 sqM) Est GFR (CKD-EPI)NonAf (>60 ml/min/1.73 sqM) Glucose (74-99) mg/dL POC Glucose (mg/dL) 127 H (75-99) mg/dL POC Glu [employer]ured [employer] Maker ID Teofilo Wetzel Calcium (8.4-10.2) mg/dL Total Bilirubin (0.2-1.3) mg/dL AST (14-36) U/L ALT (4-34) U/L Alkaline Phosphatase (38-126) U/L Ammonia (<30) umol/L Creatine Kinase (30-135) U/L Troponin I (0.000-0.034) ng/mL C-Reactive Protein (<10.0) mg/L Total Protein (6.3-8.2) g/dL Albumin (3.5-5.0) g/dL Urine Color Urine Appearance (Clear) Urine pH (5.0-8.0) Ur Specific [place] (1.001-1.035) Urine Protein (Negative) Urine Glucose (UA) (Negative) Urine Ketones (Negative) Urine Blood (Negative) Urine Nitrite (Negative) Urine Bilirubin (Negative) Urine Urobilinogen (<2.0) mg/dL Ur Leukocyte Esterase (Negative) Urine RBC (0-5) /hpf Urine WBC (0-5) /hpf Ur Squamous Epith Cells (0-4) /hpf Hyaline Casts (0-2) /lpf Valproic Acid ug/mL Acetone, Qual (Negative) 01/28/20 01/28/20 01/28/20 Range/Units 21:36 21:36 21:36 WBC (3.8-10.6) k/uL RBC (3.80-5.40) m/uL Hgb (11.4-16.0) gm/dL Hct (34.0-46.0) % MCV (80.0-100.0) fL MCH (25.0-35.0) pg MCHC (31.0-37.0) g/dL RDW (11.5-15.5) % Plt Count (150-450) k/uL Neutrophils % % Lymphocytes % % Monocytes % % Eosinophils % % Basophils % % Neutrophils # (1.3-7.7) k/uL Lymphocytes # (1.0-4.8) k/uL Monocytes # (0-1.0) k/uL Eosinophils # (0-0.7) k/uL Basophils # (0-0.2) k/uL PT (9.0-12.0) sec INR (<1.2) APTT (22.0-30.0) sec Sodium 138 (137-145) mmol/L Potassium 4.4 (3.5-5.1) mmol/L Chloride 109 H (98-107) mmol/L Carbon Dioxide 26 (22-30) mmol/L Anion Gap 3 mmol/L BUN 32 H (7-17) mg/dL Creatinine 1.11 H (0.52-1.04) mg/dL Est GFR (CKD-EPI)AfAm 63 (>60 ml/min/1.73 sqM) Est GFR (CKD-EPI)NonAf 55 (>60 ml/min/1.73 sqM) Glucose 120 H (74-99) mg/dL POC Glucose (mg/dL) (75-99) mg/dL POC Glu [employer]ured [employer] Maker ID Calcium 8.0 L (8.4-10.2) mg/dL Total Bilirubin 0.1 L (0.2-1.3) mg/dL AST 17 (14-36) U/L ALT 14 (4-34) U/L Alkaline Phosphatase 59 (38-126) U/L Ammonia (<30) umol/L Creatine Kinase 25 L (30-135) U/L Troponin I <0.012 (0.000-0.034) ng/mL C-Reactive Protein <5.0 (<10.0) mg/L Total Protein 5.3 L (6.3-8.2) g/dL Albumin 2.6 L (3.5-5.0) g/dL Urine Color Yellow Urine Appearance Clear (Clear) Urine pH 6.0 (5.0-8.0) Ur Specific [place] 1.013 (1.001-1.035) Urine Protein Negative (Negative) Urine Glucose (UA) 2+ H (Negative) Urine Ketones Negative (Negative) Urine Blood Negative (Negative) Urine Nitrite Negative (Negative) Urine Bilirubin Negative (Negative) Urine Urobilinogen <2.0 (<2.0) mg/dL Ur Leukocyte Esterase Moderate H (Negative) Urine RBC 2 (0-5) /hpf Urine WBC 77 H (0-5) /hpf Ur Squamous Epith Cells <1 (0-4) /hpf Hyaline Casts 6 H (0-2) /lpf Valproic Acid ug/mL Acetone, Qual Negative (Negative) 01/28/20 01/28/20 Range/Units 21:36 21:36 WBC (3.8-10.6) k/uL RBC (3.80-5.40) m/uL Hgb (11.4-16.0) gm/dL Hct (34.0-46.0) % MCV (80.0-100.0) fL MCH (25.0-35.0) pg MCHC (31.0-37.0) g/dL RDW (11.5-15.5) % Plt Count (150-450) k/uL Neutrophils % % Lymphocytes % % Monocytes % % Eosinophils % % Basophils % % Neutrophils # (1.3-7.7) k/uL Lymphocytes # (1.0-4.8) k/uL Monocytes # (0-1.0) k/uL Eosinophils # (0-0.7) k/uL Basophils # (0-0.2) k/uL PT (9.0-12.0) sec INR (<1.2) APTT (22.0-30.0) sec Sodium (137-145) mmol/L Potassium (3.5-5.1) mmol/L Chloride (98-107) mmol/L Carbon Dioxide (22-30) mmol/L Anion Gap mmol/L BUN (7-17) mg/dL Creatinine (0.52-1.04) mg/dL Est GFR (CKD-EPI)AfAm (>60 ml/min/1.73 sqM) Est GFR (CKD-EPI)NonAf (>60 ml/min/1.73 sqM) Glucose (74-99) mg/dL POC Glucose (mg/dL) (75-99) mg/dL POC Glu [employer]ured [employer] Maker ID Calcium (8.4-10.2) mg/dL Total Bilirubin (0.2-1.3) mg/dL AST (14-36) U/L ALT (4-34) U/L Alkaline Phosphatase (38-126) U/L Ammonia <9 (<30) umol/L Creatine Kinase (30-135) U/L Troponin I (0.000-0.034) ng/mL C-Reactive Protein (<10.0) mg/L Total Protein (6.3-8.2) g/dL Albumin (3.5-5.0) g/dL Urine Color Urine Appearance (Clear) Urine pH (5.0-8.0) Ur Specific [place] (1.001-1.035) Urine Protein (Negative) Urine Glucose (UA) (Negative) Urine Ketones (Negative) Urine Blood (Negative) Urine Nitrite (Negative) Urine Bilirubin (Negative) Urine Urobilinogen (<2.0) mg/dL Ur Leukocyte Esterase (Negative) Urine RBC (0-5) /hpf Urine WBC (0-5) /hpf Ur Squamous Epith Cells (0-4) /hpf Hyaline Casts (0-2) /lpf Valproic Acid 48.3 ug/mL Acetone, Qual (Negative) - EKG Data EKG Comments: EKG demonstrates normal sinus rhythm with a ventricular rate of 68. PA interval 148. QRS 82. QTC of 484. Prolonged QT. No acute ST segment elevations or depressions Disposition Clinical Impression: Diabetic foot infection, Acute encephalopathy, Acute hypotension Disposition: ADMITTED IP TO THIS HOSP Condition: Stable Is patient prescribed a controlled substance at d/c from ED?: No Decision to Admit Reason: Admit from EC Decision Date: 01/28/20 Decision Time: 22:46
[2020-01-28] MEDS: SODIUM CHLORIDE 0.9% 1,000 ML IV SCH (23:08)
[2020-01-29 06:29] LABS: Glucose,Whole Blood 93 mg/dL (75-99)
[2020-01-29 08:32] LABS: Basophils % (A) 1 %; Eosinophils # (A) 0.1 k/uL (0-0.7); Eosinophils % (A) 2 %; HCT 29.5 % (34.0-46.0); HGB 8.9 gm/dL (11.4-16.0); Hypochromasia Marked; Lymphocytes # (A) 2.5 k/uL (1.0-4.8); Lymphocytes % (A) 59 %; MCH 29.4 pg (25.0-35.0); MCHC 30.1 g/dL (31.0-37.0); MCV 97.9 fL (80.0-100.0); Mean Platelet Volume 8.2; Monocytes # (A) 0.2 k/uL (0-1.0); Monocytes % (A) 4 %; Neutrophils # (A) 1.4 k/uL (1.3-7.7); Neutrophils % (A) 33 %; Platelet Count 171 k/uL (150-450); RBC 3.02 m/uL (3.80-5.40); RDW 15.2 % (11.5-15.5); WBC 4.2 k/uL (3.8-10.6)
[2020-01-29 08:49] LABS: African American GFR (CKD) >90 (>60 ml/min/1.73 sqM); Anion Gap 3 mmol/L; Blood Urea Nitrogen 25 mg/dL (7-17); Calcium 7.9 mg/dL (8.4-10.2); Carbon Dioxide 22 mmol/L (22-30); Chloride 116 mmol/L (98-107); Glucose 80 mg/dL (74-99); Non-African American GFR(CKD) 81 (>60 ml/min/1.73 sqM); Potassium 4.8 mmol/L (3.5-5.1); Sodium 141 mmol/L (137-145)
[2020-01-29 11:56] LABS: Glucose,Whole Blood 275 mg/dL (75-99)
[2020-01-29] MEDS ORDERED: HYDROcodone/APAP 10-325MG 1 EACH TAB PO PRN (13:55)
[2020-01-29] MEDS ORDERED: ALBUTEROL HFA INHALER INHALATION PRN (13:55)
[2020-01-29] MEDS ORDERED: ONDANSETRON ODT 4 MG TAB PO PRN (13:55)
[2020-01-29] MEDS ORDERED: LACOSAMIDE 50 MG TABLET PO SCH (14:00)
[2020-01-29] MEDS: DULoxetine HCL 60 MG CAPSULE.DR PO SCH (15:28)
[2020-01-29] MEDS: FAMOTIDINE 20 MG TAB PO SCH (15:28)
[2020-01-29] MEDS: LOSARTAN 50 MG TAB PO SCH (15:28)
[2020-01-29] MEDS: ASPIRIN 81 MG PO SCH (15:28)
[2020-01-29] MEDS: VANCOMYCIN 1,000 MG in SODIUM CHLORIDE 0.9% 250 ML IVPB SCH (15:29)
[2020-01-29 16:55] LABS: Glucose,Whole Blood 598 mg/dL (75-99)
[2020-01-29 16:57] LABS: Glucose,Whole Blood >600 mg/dL (75-99)
[2020-01-29] MEDS: METOCLOPRAMIDE 10 MG TAB PO SCH (17:10)
[2020-01-29] MEDS: DIVALPROEX 250 MG TABLET.DR PO SCH ×2 (17:11→20:53)
[2020-01-29] MEDS: INSULIN ASPART (NovoLOG) 100 UNIT/ML VIAL SQ SCH (17:48)
[2020-01-29] MEDS ORDERED: INSULIN ASPART (NovoLOG) 100 UNIT/ML VIAL SQ ONE (17:48)
--- NOTE | 2020-01-29 18:58 | P.CNNES ---
History of Present Illness Consult date: 01/29/20 Requesting physician: Sherlyn Chen Reason for Consult: concern for possible new seizure since unaroused at home History of Present Illness: This is a 59-year-old female with medical history of stroke in 2014 (right frontal, parietal and temporal lobe encephalomalacia) with hemiparesis arm>left over the left side, seizure disorder, diabetes, DKA, hypertension, ex tobacco use (stopped 2014) who presented to [facility] emergency department on the 01/28/2024 episode of being found unresponsive at home. The episode was unwitnessed. When the EMS arrived and found the patient was only responsive to tactile stimuli Effie she was nonverbal. Her blood pressure was notably low. She was stressed to the hospital and she was more alert. Patient does not recall what happened. I contacted the patient's sister as well as the administration intern for further history. Per the caregiver the patient was sitting in the chair and she became unresponsive for approximately 10 minutes she was just looking the past the the caregiver her eyes were open she did have any gaze deviation. No jerk in of any of the extremities no foaming around the mouth no urinary incontinence. The caregiver called the patient's sister will told her to call the emergency department. Per the caregiver she feels like the patient the seizure medication is not working the Depakote she feels like it's making her shaky. She is on 250 mg 1 tablet 3 times a day. She said that she has not missed her medication. Currently the patient is on Depakote 250 mg 3 times a day as well as Vimpat 50 twice a day. Per the patient's nurse who had her yesterday, she felt the patient feet were black in coloration and felt she might be not properly taken c are of at home and notified the patient's brother of that. Workup in the hospital consisted of: Vital signs blood pressure of 67/55 with a heart rate of 69, temperature of 97.3, pulse ox of [address] of the head on changed large areas of inflammation over the right MCA distribution suggestive of prior large infarct. Stable mild intra-or megaly which could relate to central cerebral atrophy or component of NPH. Foot x-ray was reported as diffuse soft tissue swelling suggestive of cellulitis. Multiple prior toe amputation. There is a commuted fracture of the first metatarsal shaft. Chest x-ray was reported as chronic appearing changes without acute process. Urinalysis was showed that was the color was yellow it appeared that clear the nitrite was negative leukocyte esterase was moderate urine white blood cell was 77. Depakote level on 01/28/2020 was for 8.3 which is subtherapeutic. On initial presentation her glucose was 127 on the currently her last glucose was within 600 Patient was the seen by Neurohospitalist, Dr. Zuniga at this facility on 01/10/2020 for a code stroke in which she had the change in level of consciousness. At that time her blood pressure was 76/51. and did not get TPA at that time. She had CTA of the head and neck which was not changed from 04/27/2017 with chronic occlusion of the right ICA and diminutive right intracranial anterior circulation with old large right sided encephalomalacia. According to Dr. Zuniga's note it's mentioned that the patient had a seizure a few month ago. She was placed on Depakote by her primary care physician. Patient's last routine EEG in our facility was on 01/17/2020 which was reported as an abnormal EEG due to the presence of continuous focal slowing and frequent epileptiform discharges involving the right temporal region. This is suggestive focal cortical neuronal dysfunction with cortical mobility and tendency for seizure. This patient has a predisposition for comp with partial and secondary generalized seizure. He recommended to continue Depakote 250 mg 3 times a day which also will help with her behavioral issues. Patient is off of Keppra. Review of Systems Review of system: The 12 point system was reviewed and apparent positive and negative per HPI. Past Medical History Past Medical History: Asthma, Coronary Artery Disease (CAD), Chest Pain / Angina, Heart Failure, COPD, CVA/TIA, Diabetes Mellitus, Deep Vein Thrombosis (DVT), Eye Disorder, GERD/Reflux, Hyperlipidemia, Hypertension, Myocardial Infarction ([place]), Neurologic Disorder, Osteoarthritis (OA), Pneumonia, Renal Disease Additional Past Medical History / Comment(s): IDDM (brittle), DKAs, neuropathy bilateral hands/feet, retinopathy bilateral eyes, cellulitis R foot, R great toe and 2nd toe infections/amputations, current wound R foot-being seen in [facility], renal failure, anemia, CVAs with L sided paralysis, headaches started after CVAs, brain lesions, DVT R axillae, low back pain, varicosities, seizure many years ago (2001), hypothyroid, constipation, bilateral tinnitis occasionally, sinus problems. Last Myocardial Infarction Date:: 2011 History of Any Multi-Drug Resistant Organisms: MRSA Date of last positivie culture/infection: 09/06/17 MDRO Source:: Right Foot Past Surgical History: Appendectomy, Section, Cholecystectomy, Heart Catheterization With Stent, Hysterectomy, Orthopedic Surgery Additional Past Surgical History / Comment(s): PCI with multiple stents, R great toe and 2nd toe amps, debridements R foot ulcer, L shoulder surgery to remove bone, bronchoscopy, EGD, colonoscopy, R arm port since removed, bilateral cataract removals/lens implants. Past Anesthesia/Blood Transfusion Reactions: No Reported Reaction Additional Past Anesthesia/Blood Transfusion Reaction / Comment(s): HX OF BLOOD TRANSFUSION- NO REACTION Date of Last Stent Placement:: July 2012 Past Psychological History: Anxiety, Bipolar, Depression Additional Psychological History / Comment(s): Pt has a legal guardian, Sera Rodriguez, who is pt's sister. Currently her legal guardian is hospitalized. Pt has a caregiver, No, who resides with her. Pt is wheelchair bound d/t CVA with L sided paralysis arm and leg. She has a shower chair and a glucometer. Her sister or caregiver drive her to [facility]. Smoking Status: Never smoker Past Alcohol Use History: None Reported Additional Past Alcohol Use History / Comment(s): Pt started smoking in 1982 and quit in 2017. Using marijuana edibles occasionally but none for a "long time" Past Drug Use History: Marijuana Additional Drug Use History / Comment(s): using marijuana edibles - Past Family History Father Family Medical History: Unable to Obtain, Coronary Artery Disease (CAD), Diabetes Mellitus Mother Family Medical History: COPD Medications and Allergies Home Medications Medication Instructions Recorded Confirmed Type Famotidine [Pepcid] 20 mg PO DAILY 07/19/15 01/29/20 History HYDROcodone/APAP 10-325MG [[place] 1 tab PO TID PRN 10/03/16 01/29/20 History 10-325] DULoxetine HCL [Cymbalta] 60 mg PO DAILY 02/16/17 01/29/20 History Atorvastatin [Lipitor] 20 mg PO DAILY 12/28/18 01/29/20 History QUEtiapine [SEROquel] 100 mg PO HS 12/28/18 01/29/20 History Aspirin [Adult Low Dose Aspirin EC] 81 mg PO DAILY 06/09/19 01/29/20 History Ferrous Sulfate [Iron (65 MG 325 mg PO DAILY 06/09/19 01/29/20 History Elemental)] INSULIN LISPRO (humaLOG) [humaLOG] See Protocol SQ ACHS 08/13/19 01/29/20 History Divalproex [Depakote] 250 mg PO TID #90 tablet. 08/17/19 01/29/20 Rx ALPRAZolam [Xanax] 1 mg PO Q8H PRN 12/26/19 01/29/20 History Albuterol Sulfate [Ventolin HFA] 2 puff INHALATION RT-Q4H PRN 12/26/19 01/29/20 History Ondansetron Odt [Zofran ODT] 4 mg PO DAILY PRN 12/26/19 01/29/20 History Valproic Acid [Depakene] 250 mg PO DAILY 12/26/19 01/29/20 History Pantoprazole Sodium [Protonix] 20 mg PO DAILY 01/10/20 01/29/20 History QUEtiapine [SEROquel] 25 mg PO BID 01/10/20 01/29/20 History Lacosamide [Vimpat] 50 mg PO BID tablet 01/18/20 01/29/20 Rx Losartan [Cozaar] 50 mg PO DAILY tab 01/18/20 01/29/20 Rx Metoclopramide [Reglan] 10 mg PO AC-TID tab 01/18/20 01/29/20 Rx Ascorbic Acid [Vitamin C] 500 mg PO DAILY 01/29/20 01/29/20 History Insulin Glargine,Hum.rec.anlog 15 unit SQ HS 01/29/20 01/29/20 History [Basaglar Kwikpen U-100] Vitamin B Complex 1 tab PO DAILY 01/29/20 01/29/20 History Allergies Allergy/AdvReac Type Severity Reaction Status Date / Time Barbiturates Allergy Rash/Hives Verified 01/29/20 10:04 cephalexin monohydrate Allergy Rash/Hives Verified 01/29/20 10:04 [From Keflex] morphine Allergy Rash/Hives Verified 01/29/20 10:04 Penicillins Allergy Rash/Hives Verified 01/29/20 10:04 phenobarbital Allergy Swelling Verified 01/29/20 10:04 venom-honey bee Allergy Swelling Verified 01/29/20 10:04 [bee venom (honey bee)] amlodipine besylate AdvReac Vomiting Verified 01/29/20 10:04 [From [facility]] Physical Examination - Vital Signs Vital Signs: Vital Signs Temp Pulse Pulse Resp BP BP Pulse Ox 01/29/20 15:25 97.8 F 90 18 141/99 99 01/29/20 11:20 97.5 F L 76 18 127/97 99 01/29/20 08:15 97.5 F L 79 18 129/95 98 01/29/20 03:33 98.2 F 58 L 16 104/55 98 01/29/20 03:14 98.2 F 59 L 16 104/55 98 01/29/20 02:03 85 16 102/56 96 01/29/20 01:00 52 L 16 88/49 99 01/28/20 23:08 57 L 16 93/51 99 01/28/20 22:23 59 L 16 111/60 99 01/28/20 21:23 70 16 99/48 100 01/28/20 21:17 97.3 F L 69 16 67/55 99 Intake and Output 01/29/20 01/29/20 01/29/20 06:59 14:59 22:59 Intake Total 0 236 Balance 0 236 Intake: Oral 0 236 Other: Voiding Method Diaper Bedside Commode Bedside Commode Incontinent # Voids 2 5 # Bowel Movements 1 Weight 56.699 kg GENERAL: The patient is lying in bed and is not in acute distress. CHEST: The heart rate is regular rate rhythm. No murmurs to auscultation. No carotid bruit bilaterally----. LUNG: Clear to auscultation bilaterally no wheezing noted throughout. Not labored breathing. ABDOMEN/GI: Bowel sounds present in all 4 quadrants. No tenderness to palpation throughout. NEUROLOGICAL: Higher mental function: The patient is awake, alert, oriented to self, place and time. Patient is following commands. No aphasia and no neglect. Cranial nerves: The pupils are round, equal and reactive to light and accommodation. Visual campuzano: Revealed a left homonymous lower visual field cut on confrontation. Extraocular movement is intact no nystagmus is noted. Facial sensation is normal to touch throughout. The facial strength is normal throughout. Hearing is normal bilaterally to hand rub. Tongue is midline and moved [id number] without any difficulty. No dysarthria is noted. Shoulder shrug is normal bilaterally. Motor: Gait is defered. Left upper extremity: 0/5 while left lower extremity 4/5. Otherwsie stregnth is 5/5 over the right. Increase tone over the left upper extremity. Sensation: Sensation is normal to touch throughout. Reflexes (right/left): Brisk over the left upper extremity otherwise 1+ th roughout. Plantars is mute over the left. The right toe is amputated. Extremities: Right foot digit 1-2 is amputated as well as 5th digit. Results Ammonia less than 9. AST of 17 ALT of 14. Calcium of 8.0. Initially her BUN over creatinine was 32 over 1.11 last repeated was 25 over 0.80 - Laboratory Findings CBC and BMP: 01/29/20 07:04 01/29/20 17:13 Abnormal Lab Findings: Abnormal Labs 01/28/20 01/28/20 01/28/20 21:18 21:36 21:36 RBC 2.63 L Hgb 7.9 L Hct 24.7 L MCHC Chloride BUN Creatinine Glucose POC Glucose (mg/dL) 127 H Calcium Total Bilirubin Creatine Kinase Total Protein Albumin Urine Glucose (UA) 2+ H Ur Leukocyte Esterase Moderate H Urine WBC 77 H Hyaline Casts 6 H 01/28/20 01/29/20 01/29/20 21:36 07:03 07:04 RBC 3.02 L Hgb 8.9 L Hct 29.5 L MCHC 30.1 L Chloride 109 H 116 H BUN 32 H 25 H Creatinine 1.11 H Glucose 120 H POC Glucose (mg/dL) Calcium 8.0 L 7.9 L Total Bilirubin 0.1 L Creatine Kinase 25 L Total Protein 5.3 L Albumin 2.6 L Urine Glucose (UA) Ur Leukocyte Esterase Urine WBC Hyaline Casts 01/29/20 01/29/20 01/29/20 11:55 16:54 16:56 RBC Hgb Hct MCHC Chloride BUN Creatinine Glucose POC Glucose (mg/dL) 275 H 598 H >600 H Calcium Total Bilirubin Creatine Kinase Total Protein Albumin Urine Glucose (UA) Ur Leukocyte Esterase Urine WBC Hyaline Casts 01/29/20 17:13 RBC Hgb Hct MCHC Chloride BUN Creatinine Glucose 582 H* POC Glucose (mg/dL) Calcium Total Bilirubin Creatine Kinase Total Protein Albumin Urine Glucose (UA) Ur Leukocyte Esterase Urine WBC Hyaline Casts Assessment and Plan Assessment: Possibly the patient had the provoked seizure due to underlying infection: Urinary tract infection, Cellulitis of lower extremity as well as subtherapeutic Depakote. Hypotensive likely due to sepsis from underlying infection: Urinary tract infection, Cellulitis of lower extremity Urinary tract infection Cellulitis History right MCA/RUSTAM stroke with residual left hemiparesis Uncontrolled diabetes X tobacco use Plan: Patient is currently on Depakote 2050 mg at 3 times a day at. As well as she is on currently on Vimpat 50 mg twice a day. Regarding her seizure medication I will not modify her Depakote because according to the caregiver it's making her to be a little bit shaky we'll keep it at the same dose 250 mg 1 tablet 3 times a day and on . Regarding Vimpat I will increased to 75mg bid especially with subtherapeutic depakote. An EEG is not warranted at this time since the patient is back to his be at her baseline and she is known to have history of seizure. For secondary stroke prophylaxis the patient is on aspirin 81 mg as well as Lipitor 20 mg. Regarding the patient underlying cellulitis she currently is on vancomycin. We'll defer the management to the primary team as well as the ID team. Regarding the patient's uncontrolled the diabetes will defer the management to the primary team. Thanks for the consult. Bairon Kearns M.D. Neuro-hospitalist Time with Patient: Greater than 30
--- NOTE | 2020-01-29 19:35 | P.HPIM ---
History of Present Illness H&P Date: 01/29/20 Melva Jackson, is a 59-year-old female, who was found unresponsive at home and was brought in to [facility] emergency room for evaluation and treatment, patient was evaluated in the emergency room, her vital exam reveals a temperature of 97.3 pulse 69 respiration 16 blood pressure 67/55 and pulse ox 99% on room air, computed tomography scan of the brain without contrast was done on presentation and revealed large area of encephalomalacia in the right MCA distribution suggestive of previous large infarct and evidence of mild ventriculomegaly, patient has a known history of stroke, she also has known history of seizure disorder in the past, she did not have any witnessed seizure on the day of presentation however she had the sudden change in her mental status, patient was admitted to telemetry floor for further evaluation. And neurology consultation. Patient also has a known history of insulin-dependent diabetes mellitus type 1, that is very sensitive to insulin, she has history of anemia and history of right foot cellulitis with osteomyelitis with multiple toe amputations, at this time there is evidence of new area of erythema in the right foot suggestive of acute cellulitis, she was started on IV antibiotic in the emergency room, infectious disease and vascular surgery consultation were requested. Clinically patient at this time is alert and responsive in no apparent distress she is denying any complaints. Past Medical History Past Medical History: Asthma, Coronary Artery Disease (CAD), Chest Pain / Angina, Heart Failure, COPD, CVA/TIA, Diabetes Mellitus, Deep Vein Thrombosis (DVT), Eye Disorder, GERD/Reflux, Hyperlipidemia, Hypertension, Myocardial Infarction ([place]), Neurologic Disorder, Osteoarthritis (OA), Pneumonia, Renal Disease Additional Past Medical History / Comment(s): IDDM (brittle), DKAs, neuropathy bilateral hands/feet, retinopathy bilateral eyes, cellulitis R foot, R great toe and 2nd toe infections/amputations, current wound R foot-being seen in [facility], renal failure, anemia, CVAs with L sided paralysis, headaches started after CVAs, brain lesions, DVT R axillae, low back pain, varicosities, seizure many years ago (2001), hypothyroid, constipation, bilateral tinnitis occasionally, sinus problems. Last Myocardial Infarction Date:: 2011 History of Any Multi-Drug Resistant Organisms: MRSA Date of last positivie culture/infection: 09/06/17 MDRO Source:: Right Foot Past Surgical History: Appendectomy, Section, Cholecystectomy, Heart Ca theterization With Stent, Hysterectomy, Orthopedic Surgery Additional Past Surgical History / Comment(s): PCI with multiple stents, R great toe and 2nd toe amps, debridements R foot ulcer, L shoulder surgery to remove bone, bronchoscopy, EGD, colonoscopy, R arm port since removed, bilateral cataract removals/lens implants. Past Anesthesia/Blood Transfusion Reactions: No Reported Reaction Additional Past Anesthesia/Blood Transfusion Reaction / Comment(s): HX OF BLOOD TRANSFUSION- NO REACTION Date of Last Stent Placement:: July 2012 Past Psychological History: Anxiety, Bipolar, Depression Additional Psychological History / Comment(s): Pt has a legal guardian, Sera Rodriguez, who is pt's sister. Currently her legal guardian is hospitalized. Pt has a caregiver, No, who resides with her. Pt is wheelchair bound d/t CVA with L sided paralysis arm and leg. She has a shower chair and a glucometer. Her sister or caregiver drive her to [employer]. Smoking Status: Never smoker Past Alcohol Use History: None Reported Additional Past Alcohol Use History / Comment(s): Pt started smoking in 1982 and quit in 2017. Using marijuana edibles occasionally but none for a "long time" Past Drug Use History: Marijuana Additional Drug Use History / Comment(s): using marijuana edibles - Past Family History Father Family Medical History: Unable to Obtain, Coronary Artery Disease (CAD), Diabetes Mellitus Mother Family Medical History: COPD Medications and Allergies Home Medications Medication Instructions Recorded Confirmed Type Famotidine [Pepcid] 20 mg PO DAILY 07/19/15 01/29/20 History HYDROcodone/APAP 10-325MG [[place] 1 tab PO TID PRN 10/03/16 01/29/20 History 10-325] DULoxetine HCL [Cymbalta] 60 mg PO DAILY 02/16/17 01/29/20 History Atorvastatin [Lipitor] 20 mg PO DAILY 12/28/18 01/29/20 History QUEtiapine [SEROquel] 100 mg PO HS 12/28/18 01/29/20 History Aspirin [Adult Low Dose Aspirin EC] 81 mg PO DAILY 06/09/19 01/29/20 History Ferrous Sulfate [Iron (65 MG 325 mg PO DAILY 06/09/19 01/29/20 History Elemental)] INSULIN LISPRO (humaLOG) [humaLOG] See Protocol SQ ACHS 08/13/19 01/29/20 History Divalproex [Depakote] 250 mg PO TID #90 tablet. 08/17/19 01/29/20 Rx ALPRAZolam [Xanax] 1 mg PO Q8H PRN 12/26/19 01/29/20 History Albuterol Sulfate [Ventolin HFA] 2 puff INHALATION RT-Q4H PRN 12/26/19 01/29/20 History Ondansetron Odt [Zofran ODT] 4 mg PO DAILY PRN 12/26/19 01/29/20 History Valproic Acid [Depakene] 250 mg PO DAILY 12/26/19 01/29/20 History Pantoprazole Sodium [Protonix] 20 mg PO DAILY 01/10/20 01/29/20 History QUEtiapine [SEROquel] 25 mg PO BID 01/10/20 01/29/20 History Lacosamide [Vimpat] 50 mg PO BID tablet 01/18/20 01/29/20 Rx Losartan [Cozaar] 50 mg PO DAILY tab 01/18/20 01/29/20 Rx Metoclopramide [Reglan] 10 mg PO AC-TID tab 01/18/20 01/29/20 Rx Ascorbic Acid [Vitamin C] 500 mg PO DAILY 01/29/20 01/29/20 History Insulin Glargine,Hum.rec.anlog 15 unit SQ HS 01/29/20 01/29/20 History [Basaglar Kwikpen U-100] Vitamin B Complex 1 tab PO DAILY 01/29/20 01/29/20 History Allergies Allergy/AdvReac Type Severity Reaction Status Date / Time Barbiturates Allergy Rash/Hives Verified 01/29/20 10:04 cephalexin monohydrate Allergy Rash/Hives Verified 01/29/20 10:04 [From Keflex] morphine Allergy Rash/Hives Verified 01/29/20 10:04 Penicillins Allergy Rash/Hives Verified 01/29/20 10:04 phenobarbital Allergy Swelling Verified 01/29/20 10:04 venom-honey bee Allergy Swelling Verified 01/29/20 10:04 [bee venom (honey bee)] amlodipine besylate AdvReac Vomiting Verified 01/29/20 10:04 [From [facility]] Physical Exam Vitals: Vital Signs Temp Pulse Pulse Resp BP BP Pulse Ox 01/29/20 08:15 97.5 F L 79 18 129/95 98 01/29/20 03:33 98.2 F 58 L 16 104/55 98 01/29/20 03:14 98.2 F 59 L 16 104/55 98 01/29/20 02:03 85 16 102/56 96 01/29/20 01:00 52 L 16 88/49 99 01/28/20 23:08 57 L 16 93/51 99 01/28/20 22:23 59 L 16 111/60 99 01/28/20 21:23 70 16 99/48 100 01/28/20 21:17 97.3 F L 69 16 67/55 99 Intake and Output 01/28/20 01/29/20 01/29/20 22:59 06:59 14:59 Intake Total 0 Balance 0 Intake: Oral 0 Other: Voiding Method Diaper Bedside Commode Incontinent Weight 56.699 kg 56.699 kg In general patient is alert responsive in no apparent distress HEENT head normocephalic and atraumatic Neck is supple no JVD no goiter no lymphadenopathy Chest exam reveals a few scattered rhonchi no wheezing Cardiac exam reveals regular heart sounds no gallops no murmurs Abdomen is soft nontender no organomegaly Extremity exam reveals no edema no cyanosis or clubbing Right foot has previous amputation of the great toe there is area of erythema in the base of the great toe with tenderness Results CBC & Chem 7: 01/29/20 07:04 01/29/20 17:13 Labs: Abnormal Lab Results - Last 24 Hours (Table) 01/28/20 01/28/20 01/28/20 Range/Units 21:18 21:36 21:36 RBC 2.63 L (3.80-5.40) m/uL Hgb 7.9 L (11.4-16.0) gm/dL Hct 24.7 L (34.0-46.0) % MCHC (31.0-37.0) g/dL Chloride (98-107) mmol/L BUN (7-17) mg/dL Creatinine (0.52-1.04) mg/dL Glucose (74-99) mg/dL POC Glucose (mg/dL) 127 H (75-99) mg/dL Calcium (8.4-10.2) mg/dL Total Bilirubin (0.2-1.3) mg/dL Creatine Kinase (30-135) U/L Total Protein (6.3-8.2) g/dL Albumin (3.5-5.0) g/dL Urine Glucose (UA) 2+ H (Negative) Ur Leukocyte Esterase Moderate H (Negative) Urine WBC 77 H (0-5) /hpf Hyaline Casts 6 H (0-2) /lpf 01/28/20 01/29/20 01/29/20 Range/Units 21:36 07:03 07:04 RBC 3.02 L (3.80-5.40) m/uL Hgb 8.9 L (11.4-16.0) gm/dL Hct 29.5 L (34.0-46.0) % MCHC 30.1 L (31.0-37.0) g/dL Chloride 109 H 116 H (98-107) mmol/L BUN 32 H 25 H (7-17) mg/dL Creatinine 1.11 H (0.52-1.04) mg/dL Glucose 120 H (74-99) mg/dL POC Glucose (mg/dL) (75-99) mg/dL Calcium 8.0 L 7.9 L (8.4-10.2) mg/dL Total Bilirubin 0.1 L (0.2-1.3) mg/dL Creatine Kinase 25 L (30-135) U/L Total Protein 5.3 L (6.3-8.2) g/dL Albumin 2.6 L (3.5-5.0) g/dL Urine Glucose (UA) (Negative) Ur Leukocyte Esterase (Negative) Urine WBC (0-5) /hpf Hyaline Casts (0-2) /lpf 01/29/20 Range/Units 11:55 RBC (3.80-5.40) m/uL Hgb (11.4-16.0) gm/dL Hct (34.0-46.0) % MCHC (31.0-37.0) g/dL Chloride (98-107) mmol/L BUN (7-17) mg/dL Creatinine (0.52-1.04) mg/dL Glucose (74-99) mg/dL POC Glucose (mg/dL) 275 H (75-99) mg/dL Calcium (8.4-10.2) mg/dL Total Bilirubin (0.2-1.3) mg/dL Creatine Kinase (30-135) U/L Total Protein (6.3-8.2) g/dL Albumin (3.5-5.0) g/dL Urine Glucose (UA) (Negative) Ur Leukocyte Esterase (Negative) Urine WBC (0-5) /hpf Hyaline Casts (0-2) /lpf Microbiology - Last 24 Hours (Table) 01/28/20 21:36 Urine Culture - Preliminary Urine,Clean Catch Thrombosis Risk Factor Assmnt - Choose All That Apply Any of the Below Risk Factors Present?: Yes Each Factor Represents 1 point: Age 41-60 years Other Risk Factors: Yes Each Risk Factor Represents 3 Points: History of DVT/PE Other congenital or acquired thrombophilia - If yes, enter type in comment: No Thrombosis Risk Factor Assessment Total Risk Factor Score: 4 Thrombosis Risk Factor Assessment Level: Moderate Risk Assessment and Plan Plan: 1. Episode of altered mental status, possible postictal state, neurology consultation was requested to assess and review seizure medications 2. Previous history of stroke, with area of large encephalomalacic in the right MCA distribution. 3. Previous history of seizure disorder, patient was maintained on Vimpat and valproic acid 4. Insulin-dependent diabetes mellitus type 1, maintained on insulin 5. Evidence of right foot cellulitis, possible osteomyelitis, patient was started on IV antibiotic infectious disease consultation was requested At this time will monitor closely on telemetry floor Infectious disease consultation and neurology consultation requested Will follow closely
[2020-01-29 20:34] LABS: Glucose,Whole Blood 546 mg/dL (75-99); Glucose,Whole Blood 559 mg/dL (75-99)
[2020-01-29] MEDS: LACOSAMIDE 50 MG TABLET PO SCH (20:52)
[2020-01-29] MEDS: QUEtiapine 25 MG TAB PO SCH (20:53)
[2020-01-29] MEDS: QUEtiapine 100 MG TAB PO SCH (20:53)
[2020-01-29] MEDS: INSULIN DETEMIR (LEVEMIR) 100 UNIT/ML SYR SQ SCH (20:54)
[2020-01-29] MEDS: ALPRAZolam 1 MG TAB PO PRN (22:05)
--- NOTE | 2020-01-29 22:20 | P.CONS ---
History of Present Illness - Reason for Consult Consult date: 01/29/20 Right foot cellulitis Requesting physician: Sherlyn Chen - Chief Complaint Mental status changes unresponsive x one day - History of Present Illness Patient is 59-year-old female with a past medical history significant for right diabetic foot infection requiring amputation of her toes and prolonged IV antibiotic therapy, patient who was brought into the ER at [facility] for evaluation of episode of mental status changes patient currently was found to be unresponsive at home when EMS arrived at home patient was noticed to be mildly milliliters positive tactile stimuli however the patient was normal but he was noticed to be hypotensive requiring 200 mL fluid bolus on arrival to the hospital patient was awake and did not remember what happened patient was noticed to have a red swollen right foot. The patient has been previous amputation patient also have x-rays of the foot which did show diffuse swelling suggestive of cellulitis patient was started on vancomycin and admitted to the hospital for nonspecific patient denies having any pain to the right foot area the currently there is no open wound or any drainage. Denies having had no chest pain shortness of breath or cough. No diarrhea Review of Systems Positive point has been mentioned in the HPI rest of the systems are negative Past Medical History Past Medical History: Asthma, Coronary Artery Disease (CAD), Chest Pain / Angina, Heart Failure, COPD, CVA/TIA, Diabetes Mellitus, Deep Vein Thrombosis (DVT), Eye Disorder, GERD/Reflux, Hyperlipidemia, Hypertension, Myocardial Infarction ([place]), Neurologic Disorder, Osteoarthritis (OA), Pneumonia, Renal Disease Additional Past Medical History / Comment(s): IDDM (brittle), DKAs, neuropathy bilateral hands/feet, retinopathy bilateral eyes, cellulitis R foot, R great toe and 2nd toe infections/amputations, current wound R foot-being seen in [facility], renal failure, anemia, CVAs with L sided paralysis, headaches started after CVAs, brain lesions, DVT R axillae, low back pain, varicosities, seizure many years ago (2001), hypothyroid, constipation, bilateral tinnitis occasionally, sinus problems. Last Myocardial Infarction Date:: 2011 History of Any Multi-Drug Resistant Organisms: MRSA Year Discovered:: 09/06/17 MDRO Source:: Right Foot Past Surgical History: Appendectomy, Section, Cholecystectomy, Heart Catheterization With Stent, Hysterectomy, Orthopedic Surgery Additional Past Surgical History / Comment(s): PCI with multiple stents, R great toe and 2nd toe amps, debridements R foot ulcer, L shoulder surgery to remove bone, bronchoscopy, EGD, colonoscopy, R arm port since removed, bilateral cataract removals/lens implants. Past Anesthesia/Blood Transfusion Reactions: No Reported Reaction Additional Past Anesthesia/Blood Transfusion Reaction / Comm: HX OF BLOOD TRANSFUSION- NO REACTION Date of Last Stent Placement:: July 2012 Past Psychological History: Anxiety, Bipolar, Depression Additional Psychological History / Comment(s): Pt has a legal guardian, Sera Rodriguez, who is pt's sister. Currently her legal guardian is hospitalized. Pt has a caregiver, No, who resides with her. Pt is wheelchair bound d/t CVA with L sided paralysis arm and leg. She has a shower chair and a glucometer. Her sister or caregiver drive her to [place]. Smoking Status: Never smoker Past Alcohol Use History: None Reported Additional Past Alcohol Use History / Comment(s): Pt started smoking in 1982 and quit in 2017. Using marijuana edibles occasionally but none for a "long time" Past Drug Use History: Marijuana Additional Drug Use History / Comment(s): using marijuana edibles - Past Family History Father Family Medical History: Unable to Obtain, Coronary Artery Disease (CAD), Diabetes Mellitus Mother Family Medical History: COPD Medications and Allergies Home Medications Medication Instructions Recorded Confirmed Type Famotidine [Pepcid] 20 mg PO DAILY 07/19/15 01/29/20 History HYDROcodone/APAP 10-325MG [[place] 1 tab PO TID PRN 10/03/16 01/29/20 History 10-325] DULoxetine HCL [Cymbalta] 60 mg PO DAILY 02/16/17 01/29/20 History Atorvastatin [Lipitor] 20 mg PO DAILY 12/28/18 01/29/20 History QUEtiapine [SEROquel] 100 mg PO HS 12/28/18 01/29/20 History Aspirin [Adult Low Dose Aspirin EC] 81 mg PO DAILY 06/09/19 01/29/20 History Ferrous Sulfate [Iron (65 MG 325 mg PO DAILY 06/09/19 01/29/20 History Elemental)] INSULIN LISPRO (humaLOG) [humaLOG] See Protocol SQ ACHS 08/13/19 01/29/20 History Divalproex [Depakote] 250 mg PO TID #90 tablet. 08/17/19 01/29/20 Rx ALPRAZolam [Xanax] 1 mg PO Q8H PRN 12/26/19 01/29/20 History Albuterol Sulfate [Ventolin HFA] 2 puff INHALATION RT-Q4H PRN 12/26/19 01/29/20 History Ondansetron Odt [Zofran ODT] 4 mg PO DAILY PRN 12/26/19 01/29/20 History Valproic Acid [Depakene] 250 mg PO DAILY 12/26/19 01/29/20 History Pantoprazole Sodium [Protonix] 20 mg PO DAILY 01/10/20 01/29/20 History QUEtiapine [SEROquel] 25 mg PO BID 01/10/20 01/29/20 History Lacosamide [Vimpat] 50 mg PO BID tablet 01/18/20 01/29/20 Rx Losartan [Cozaar] 50 mg PO DAILY tab 01/18/20 01/29/20 Rx Metoclopramide [Reglan] 10 mg PO AC-TID tab 01/18/20 01/29/20 Rx Ascorbic Acid [Vitamin C] 500 mg PO DAILY 01/29/20 01/29/20 History Insulin Glargine,Hum.rec.anlog 15 unit SQ HS 01/29/20 01/29/20 History [Basaglar Kwikpen U-100] Vitamin B Complex 1 tab PO DAILY 01/29/20 01/29/20 History Allergies Allergy/AdvReac Type Severity Reaction Status Date / Time Barbiturates Allergy Rash/Hives Verified 01/29/20 10:04 cephalexin monohydrate Allergy Rash/Hives Verified 01/29/20 10:04 [From Keflex] morphine Allergy Rash/Hives Verified 01/29/20 10:04 Penicillins Allergy Rash/Hives Verified 01/29/20 10:04 phenobarbital Allergy Swelling Verified 01/29/20 10:04 venom-honey bee Allergy Swelling Verified 01/29/20 10:04 [bee venom (honey bee)] amlodipine besylate AdvReac Vomiting Verified 01/29/20 10:04 [From Norvasc] Physical Exam Vitals: Vital Signs Temp Pulse Pulse Resp BP BP Pulse Ox 01/29/20 20:22 98.6 F 87 18 152/65 98 01/29/20 15:25 97.8 F 90 18 141/99 99 01/29/20 11:20 97.5 F L 76 18 127/97 99 01/29/20 08:15 97.5 F L 79 18 129/95 98 01/29/20 03:33 98.2 F 58 L 16 104/55 98 01/29/20 03:14 98.2 F 59 L 16 104/55 98 01/29/20 02:03 85 16 102/56 96 01/29/20 01:00 52 L 16 88/49 99 01/28/20 23:08 57 L 16 93/51 99 01/28/20 22:23 59 L 16 111/60 99 Intake and Output 01/29/20 01/29/20 01/29/20 06:59 14:59 22:59 Intake Total 0 236 120 Balance 0 236 120 Intake: Oral 0 236 120 Other: Voiding Method Diaper Bedside Commode Bedside Commode Incontinent Bedpan # Voids 2 2 # Bowel Movements 1 Weight 56.699 kg GENERAL DESCRIPTION: Middle-aged female lying in bed, no distress. No tachypnea or accessory muscle of respiration use. HEENT: Shows Pallor , no scleral icterus. Oral mucous membrane is dry. No pharyngeal erythema or thrush NECK: Trachea central, no thyromegaly. LUNGS: Unlabored breathing. Decreased breaths in the bases. No wheeze or crackle. HEART: S1, S2, regular rate and rhythm. No loud murmur ABDOMEN: Soft, no tenderness , guarding or rigidity, no organomegaly EXTREMITIES: Bilateral currently with no open wound minimal swelling no significant redness was noticed or any drainage SKIN: No rash, no masses palpable. NEUROLOGICAL: The patient is awake, alert, oriented x2, mood and affect normal. Results CBC & Chem 7: 01/29/20 07:04 01/29/20 17:13 Labs: Abnormal Lab Results - Last 24 Hours (Table) 01/28/20 01/29/20 01/29/20 Range/Units 21:36 07:03 07:04 RBC 3.02 L (3.80-5.40) m/uL Hgb 8.9 L (11.4-16.0) gm/dL Hct 29.5 L (34.0-46.0) % MCHC 30.1 L (31.0-37.0) g/dL Chloride 116 H (98-107) mmol/L BUN 25 H (7-17) mg/dL Glucose (74-99) mg/dL POC Glucose (mg/dL) (75-99) mg/dL Calcium 7.9 L (8.4-10.2) mg/dL Urine Glucose (UA) 2+ H (Negative) Ur Leukocyte Esterase Moderate H (Negative) Urine WBC 77 H (0-5) /hpf Hyaline Casts 6 H (0-2) /lpf 01/29/20 01/29/20 01/29/20 Range/Units 11:55 16:54 16:56 RBC (3.80-5.40) m/uL Hgb (11.4-16.0) gm/dL Hct (34.0-46.0) % MCHC (31.0-37.0) g/dL Chloride (98-107) mmol/L BUN (7-17) mg/dL Glucose (74-99) mg/dL POC Glucose (mg/dL) 275 H 598 H >600 H (75-99) mg/dL Calcium (8.4-10.2) mg/dL Urine Glucose (UA) (Negative) Ur Leukocyte Esterase (Negative) Urine WBC (0-5) /hpf Hyaline Casts (0-2) /lpf 01/29/20 01/29/20 01/29/20 Range/Units 17:13 20:32 20:32 RBC (3.80-5.40) m/uL Hgb (11.4-16.0) gm/dL Hct (34.0-46.0) % MCHC (31.0-37.0) g/dL Chloride (98-107) mmol/L BUN (7-17) mg/dL Glucose 582 H* (74-99) mg/dL POC Glucose (mg/dL) 559 H 546 H (75-99) mg/dL Calcium (8.4-10.2) mg/dL Urine Glucose (UA) (Negative) Ur Leukocyte Esterase (Negative) Urine WBC (0-5) /hpf Hyaline Casts (0-2) /lpf Microbiology - Last 24 Hours (Table) 01/28/20 21:36 Urine Culture - Preliminary Urine,Clean Catch Assessment and Plan Assessment: 1- patient presented to the hospital with an episode of unresponsiveness and mental status changes this patient currently do not have any fever or elevated white count ER physician reported erythema to the right foot, and some swelling was also reported by the radiologist however clinically I do not see any significant cellulitis to the right foot this patient previous history of ostial myelitis however those wounds are currently healed 2- Patient with multiple antibiotic ALLERGIES that would limit the number of antibiotic safe to use (1) Cellulitis of right foot Current Visit: No Status: Acute Code(s): L03.115 - CELLULITIS OF RIGHT LOWER LIMB SNOMED Code(s): 938487789 Plan: 1- we will check a CRP and sed rate and repeat the CBC tomorrow 2- Vancomycin pharmacy to dose target trough of 15 while watching her kidney function and Vanco trough closely 3- if inflammation markers are normal as well will recommend discontinuation of antibiotic therapy as clinically doubt significant cellulitis We will follow on clinical condition and cultures to further adjust medication if needed Thank you for this consultation will follow this patient with you Time with Patient: Greater than 30
[2020-01-29] MEDS ORDERED: VANCOMYCIN 1,000 MG in SODIUM CHLORIDE 0.9% 250 ML IVPB SCH (23:00)
[2020-01-30] MEDS: SODIUM CHLORIDE 0.9% 1,000 ML IV SCH ×3 (00:13→21:37)
[2020-01-30 04:32] LABS: Glucose,Whole Blood 333 mg/dL (75-99)
[2020-01-30] MEDS: VANCOMYCIN 1,000 MG in SODIUM CHLORIDE 0.9% 250 ML IVPB SCH ×2 (05:28→21:37)
[2020-01-30 06:22] LABS: Glucose,Whole Blood 347 mg/dL (75-99)
[2020-01-30] MEDS: METOCLOPRAMIDE 10 MG TAB PO SCH ×3 (06:34→19:18)
[2020-01-30] MEDS: PANTOPRAZOLE 40 MG TABLET PO SCH (06:34)
[2020-01-30 07:21] LABS: Basophils % (A) 0 %; Eosinophils # (A) 0.1 k/uL (0-0.7); Eosinophils % (A) 2 %; HCT 23.4 % (34.0-46.0); Hypochromasia Moderate; Lymphocytes # (A) 1.4 k/uL (1.0-4.8); Lymphocytes % (A) 49 %; MCH 29.7 pg (25.0-35.0); MCHC 30.8 g/dL (31.0-37.0); MCV 96.3 fL (80.0-100.0); Mean Platelet Volume 8.3; Monocytes # (A) 0.1 k/uL (0-1.0); Monocytes % (A) 5 %; Neutrophils # (A) 1.2 k/uL (1.3-7.7); Neutrophils % (A) 42 %; Platelet Count 122 k/uL (150-450); RBC 2.43 m/uL (3.80-5.40); RDW 15.3 % (11.5-15.5); WBC 2.9 k/uL (3.8-10.6)
[2020-01-30 07:30] LABS: ALT 11 U/L (4-34); AST 15 U/L (14-36); African American GFR (CKD) >90 (>60 ml/min/1.73 sqM); Alkaline Phosphatase 45 U/L (38-126); Anion Gap 1 mmol/L; Blood Urea Nitrogen 22 mg/dL (7-17); C Reactive Protein 8.9 mg/L (<10.0); Carbon Dioxide 19 mmol/L (22-30); Chloride 117 mmol/L (98-107); Glucose 242 mg/dL (74-99); Non-African American GFR(CKD) 90 (>60 ml/min/1.73 sqM); Potassium 3.8 mmol/L (3.5-5.1); Sodium 137 mmol/L (137-145); Total Bilirubin 0.4 mg/dL (0.2-1.3); Total Protein 4.2 g/dL (6.3-8.2)
[2020-01-30 07:33] LABS: HGB 7.2 gm/dL (11.4-16.0)
[2020-01-30 07:37] LABS: Calcium 6.4 mg/dL (8.4-10.2)
[2020-01-30] MEDS: ASPIRIN 81 MG PO SCH (08:46)
[2020-01-30] MEDS: DULoxetine HCL 60 MG CAPSULE.DR PO SCH (08:46)
[2020-01-30] MEDS: QUEtiapine 25 MG TAB PO SCH ×2 (08:46→21:36)
[2020-01-30] MEDS: LOSARTAN 50 MG TAB PO SCH (08:46)
[2020-01-30] MEDS: ASCORBIC ACID 500 MG TAB PO SCH (08:46)
[2020-01-30] MEDS: FERROUS SULFATE 325 MG TAB PO SCH (08:47)
[2020-01-30] MEDS: VALPROIC ACID ORAL SOLN 250 MG/5 ML CUP PO SCH (08:47)
[2020-01-30] MEDS: ATORVASTATIN 20 MG TAB PO SCH (08:47)
[2020-01-30] MEDS: FAMOTIDINE 20 MG TAB PO SCH (08:47)
[2020-01-30] MEDS: DIVALPROEX 250 MG TABLET.DR PO SCH ×3 (08:47→21:36)
[2020-01-30] MEDS: NON FORMULARY DRUG (Vitamin B Complex [Vitamin B Complex] 1 TAB) PO SCH (08:48)
[2020-01-30] MEDS: LACOSAMIDE 50 MG TABLET PO SCH ×2 (08:50→21:36)
[2020-01-30 10:18] LABS: Erythrocyte Sedimentation Rate 14 mm/hr (0-20)
[2020-01-30 11:19] LABS: Glucose,Whole Blood 265 mg/dL (75-99)
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
[2020-01-30] MEDS: INSULIN ASPART (NovoLOG) 100 UNIT/ML VIAL SQ SCH ×3 (13:39→19:17)
--- NOTE | 2020-01-30 13:39 | P.GSCN ---
History of Present Illness Consult date: 01/30/20 Reason for Consult: Cellulitis to the right foot, right fourth toe ulcer History of present illness: Tubes 59-year-old female with a past medical history includes CVA, diabetes, hypertension, seizure disorder who presented to the emergency department yesterday with altered mental status. Apparently when EMS had arrived they found the patient only responsive to tactile stimuli and nonverbal. Her blood pressure had been notably low. The patient is somewhat of a poor historian. She states does state that she has had some redness to the right foot and had been seen in the past by Dr. Cadena. She is unsure when she had her amputations, however has had a right first second and fifth toe amputation. He was noted in the emergency department that she had swelling and redness to the right foot. She states she does have some pain in the right foot. She is unsure if she has had any fevers or chills. After reviewing her chart it does appear that she has been seeing Dr. Rafal anglin in the wound care clinic. She had an arterial study of the lower extremities March 2019 showing mild to moderate bilateral femoral-popliteal disease. Is also a note in March 2019 showing amputation of the right great toe through the still phalanx. Review of Systems A limited review of systems was completed as patient was very drowsy and poor historian. Past Medical History Past Medical History: Asthma, Coronary Artery Disease (CAD), Chest Pain / Angina, Heart Failure, COPD, CVA/TIA, Diabetes Mellitus, Deep Vein Thrombosis (DVT), Eye Disorder, GERD/Reflux, Hyperlipidemia, Hypertension, Myocardial Infarction ([place]), Neurologic Disorder, Osteoarthritis (OA), Pneumonia, Renal Disease Additional Past Medical History / Comment(s): IDDM (brittle), DKAs, neuropathy bilateral hands/feet, retinopathy bilateral eyes, cellulitis R foot, R great toe and 2nd toe infections/amputations, current wound R foot-being seen in [facility], renal failure, anemia, CVAs with L sided paralysis, headaches started after CVAs, brain lesions, DVT R axillae, low back pain, varicosities, seizure many years ago (2001), hypothyroid, constipation, bilateral tinnitis occasionally, sinus problems. Last Myocardial Infarction Date:: 2011 History of Any Multi-Drug Resistant Organisms: MRSA Year Discovered:: 09/06/17 MDRO Source:: Right Foot Past Surgical History: Appendectomy, Section, Cholecystectomy, Heart Catheterization With Stent, Hysterectomy, Orthopedic Surgery Additional Past Surgical History / Comment(s): PCI with multiple stents, R great toe and 2nd toe amps, debridements R foot ulcer, L shoulder surgery to remove bone, bronchoscopy, EGD, colonoscopy, R arm port since removed, bilateral cataract removals/lens implants. Past Anesthesia/Blood Transfusion Reactions: No Reported Reaction Additional Past Anesthesia/Blood Transfusion Reaction / Comm: HX OF BLOOD TRANSFUSION- NO REACTION Date of Last Stent Placement:: July 2012 Past Psychological History: Anxiety, Bipolar, Depression Additional Psychological History / Comment(s): Pt has a legal guardian, Sera Rodriguez, who is pt's sister. Currently her legal guardian is hospitalized. Pt has a caregiver, No, who resides with her. Pt is wheelchair bound d/t CVA with L sided paralysis arm and leg. She has a shower chair and a glucometer. Her sister or caregiver drive her to [facility] Smoking Status: Never smoker Past Alcohol Use History: None Reported Additional Past Alcohol Use History / Comment(s): Pt started smoking in 1982 and quit in 2017. Using marijuana edibles occasionally but none for a "long time" Past Drug Use History: Marijuana Additional Drug Use History / Comment(s): using marijuana edibles - Past Family History Father Family Medical History: Unable to Obtain, Coronary Artery Disease (CAD), Diab etes Mellitus Mother Family Medical History: COPD Medications and Allergies Home Medications Medication Instructions Recorded Confirmed Type Famotidine [Pepcid] 20 mg PO DAILY 07/19/15 01/29/20 History HYDROcodone/APAP 10-325MG [[place] 1 tab PO TID PRN 10/03/16 01/29/20 History 10-325] DULoxetine HCL [Cymbalta] 60 mg PO DAILY 02/16/17 01/29/20 History Atorvastatin [Lipitor] 20 mg PO DAILY 12/28/18 01/29/20 History QUEtiapine [SEROquel] 100 mg PO HS 12/28/18 01/29/20 History Aspirin [Adult Low Dose Aspirin EC] 81 mg PO DAILY 06/09/19 01/29/20 History Ferrous Sulfate [Iron (65 MG 325 mg PO DAILY 06/09/19 01/29/20 History Elemental)] INSULIN LISPRO (humaLOG) [humaLOG] See Protocol SQ ACHS 08/13/19 01/29/20 History Divalproex [Depakote] 250 mg PO TID #90 tablet. 08/17/19 01/29/20 Rx ALPRAZolam [Xanax] 1 mg PO Q8H PRN 12/26/19 01/29/20 History Albuterol Sulfate [Ventolin HFA] 2 puff INHALATION RT-Q4H PRN 12/26/19 01/29/20 History Ondansetron Odt [Zofran ODT] 4 mg PO DAILY PRN 12/26/19 01/29/20 History Valproic Acid [Depakene] 250 mg PO DAILY 12/26/19 01/29/20 History Pantoprazole Sodium [Protonix] 20 mg PO DAILY 01/10/20 01/29/20 History QUEtiapine [SEROquel] 25 mg PO BID 01/10/20 01/29/20 History Lacosamide [Vimpat] 50 mg PO BID tablet 01/18/20 01/29/20 Rx Losartan [Cozaar] 50 mg PO DAILY tab 01/18/20 01/29/20 Rx Metoclopramide [Reglan] 10 mg PO AC-TID tab 01/18/20 01/29/20 Rx Ascorbic Acid [Vitamin C] 500 mg PO DAILY 01/29/20 01/29/20 History Insulin Glargine,Hum.rec.anlog 15 unit SQ HS 01/29/20 01/29/20 History [Basaglar Kwikpen U-100] Vitamin B Complex 1 tab PO DAILY 01/29/20 01/29/20 History Allergies Allergy/AdvReac Type Severity Reaction Status Date / Time Barbiturates Allergy Rash/Hives Verified 01/29/20 10:04 cephalexin monohydrate Allergy Rash/Hives Verified 01/29/20 10:04 [From Keflex] morphine Allergy Rash/Hives Verified 01/29/20 10:04 Penicillins Allergy Rash/Hives Verified 01/29/20 10:04 phenobarbital Allergy Swelling Verified 01/29/20 10:04 venom-honey bee Allergy Swelling Verified 01/29/20 10:04 [bee venom (honey bee)] amlodipine besylate AdvReac Vomiting Verified 01/29/20 10:04 [From [facility]] Surgical - Exam Vital Signs Temp Pulse Resp BP Pulse Ox 97.3 F L 69 16 67/55 99 01/28/20 21:17 01/28/20 21:17 01/28/20 21:17 01/28/20 21:17 01/28/20 21:17 General appearance: The patient is asleep but arousable, disorientated, in no acute distress. She is curled up in a position in the bed with blankets covering her head. HET: Head is normocephalic and atraumatic. Neck: Supple without lymphadenopathy. Trachea midline. Heart: S1 S2. Regular rate and rhythm. Lungs: No crackles or wheezes are heard. Abdomen: Soft, nontender, nondistended with bowel sounds. Extremities: Normal skin color and turgor. No edema bilaterally. Bilateral lower extremities warm to the touch with good capillary refill. The right lower extremity with a first and second and fourth toe prior amputation. The fourth toe lateral aspect with an ulcer without drainage or erythema. There is mild erythema surrounding the great toe amputation site which has healed well. There is no drainage or open wound noted. Neurological: Was somewhat disoriented, drowsy but fully arousable. Results Right foot x-ray shows diffuse soft tissue swelling of the foot. Prior amputation of most of the fifth ray. A fragment of the proximal phalangeal base in the proximal metatarsal remains. At the second ray, there is some residual bone relating to the proximal phalangeal base. The remainder of the toe is absent. There is a communuted x-ray of the proximal first metatarsal shaft at the level of the metatarsal head and neck area, the big toe otherwise absent. Fracture margins are ill-defined and some erosive changes difficult to exclude. There is an 8mm linear density retainable plantar heel soft tissue. Additional retained 7 mm long density in the plantar fourth toe soft tissues - Labs 01/30/20 06:24 01/30/20 06:24 Abnormal Lab Results - Last 24 Hours (Table) 01/29/20 01/29/20 01/29/20 Range/Units 16:54 16:56 17:13 WBC (3.8-10.6) k/uL RBC (3.80-5.40) m/uL Hgb (11.4-16.0) gm/dL Hct (34.0-46.0) % MCHC (31.0-37.0) g/dL Plt Count (150-450) k/uL Neutrophils # (1.3-7.7) k/uL Chloride (98-107) mmol/L Carbon Dioxide (22-30) mmol/L BUN (7-17) mg/dL Glucose 582 H* (74-99) mg/dL POC Glucose (mg/dL) 598 H >600 H (75-99) mg/dL Calcium (8.4-10.2) mg/dL Total Protein (6.3-8.2) g/dL Albumin (3.5-5.0) g/dL 01/29/20 01/29/20 01/30/20 Range/Units 20:32 20:32 04:28 WBC (3.8-10.6) k/uL RBC (3.80-5.40) m/uL Hgb (11.4-16.0) gm/dL Hct (34.0-46.0) % MCHC (31.0-37.0) g/dL Plt Count (150-450) k/uL Neutrophils # (1.3-7.7) k/uL Chloride (98-107) mmol/L Carbon Dioxide (22-30) mmol/L BUN (7-17) mg/dL Glucose (74-99) mg/dL POC Glucose (mg/dL) 559 H 546 H 333 H (75-99) mg/dL Calcium (8.4-10.2) mg/dL Total Protein (6.3-8.2) g/dL Albumin (3.5-5.0) g/dL 01/30/20 01/30/20 01/30/20 Range/Units 06:21 06:24 06:24 WBC 2.9 L (3.8-10.6) k/uL RBC 2.43 L (3.80-5.40) m/uL Hgb 7.2 L D (11.4-16.0) gm/dL Hct 23.4 L (34.0-46.0) % MCHC 30.8 L (31.0-37.0) g/dL Plt Count 122 L (150-450) k/uL Neutrophils # 1.2 L (1.3-7.7) k/uL Chloride 117 H (98-107) mmol/L Carbon Dioxide 19 L (22-30) mmol/L BUN 22 H (7-17) mg/dL Glucose 242 H (74-99) mg/dL POC Glucose (mg/dL) 347 H (75-99) mg/dL Calcium 6.4 L* (8.4-10.2) mg/dL Total Protein 4.2 L (6.3-8.2) g/dL Albumin 2.0 L (3.5-5.0) g/dL 01/30/20 Range/Units 11:18 WBC (3.8-10.6) k/uL RBC (3.80-5.40) m/uL Hgb (11.4-16.0) gm/dL Hct (34.0-46.0) % MCHC (31.0-37.0) g/dL Plt Count (150-450) k/uL Neutrophils # (1.3-7.7) k/uL Chloride (98-107) mmol/L Carbon Dioxide (22-30) mmol/L BUN (7-17) mg/dL Glucose (74-99) mg/dL POC Glucose (mg/dL) 265 H (75-99) mg/dL Calcium (8.4-10.2) mg/dL Total Protein (6.3-8.2) g/dL Albumin (3.5-5.0) g/dL Microbiology - Last 24 Hours (Table) 01/28/20 21:36 Urine Culture - Preliminary Urine,Clean Catch Coagulase Negative Staph 01/28/20 21:36 Blood Culture - Preliminary Blood No Growth after 24 hours Diabetes panel 01/29/20 01/30/20 Range/Units 17:13 06:24 Sodium 137 (137-145) mmol/L Potassium 3.8 (3.5-5.1) mmol/L Chloride 117 H (98-107) mmol/L Carbon Dioxide 19 L (22-30) mmol/L BUN 22 H (7-17) mg/dL Creatinine 0.74 (0.52-1.04) mg/dL Glucose 582 H* 242 H (74-99) mg/dL Calcium 6.4 L* (8.4-10.2) mg/dL AST 15 (14-36) U/L ALT 11 (4-34) U/L Alkaline Phosphatase 45 (38-126) U/L Total Protein 4.2 L (6.3-8.2) g/dL Albumin 2.0 L (3.5-5.0) g/dL Calcium panel 01/30/20 Range/Units 06:24 Calcium 6.4 L* (8.4-10.2) mg/dL Albumin 2.0 L (3.5-5.0) g/dL Pituitary panel 01/29/20 01/30/20 Range/Units 17:13 06:24 Sodium 137 (137-145) mmol/L Potassium 3.8 (3.5-5.1) mmol/L Chloride 117 H (98-107) mmol/L Carbon Dioxide 19 L (22-30) mmol/L BUN 22 H (7-17) mg/dL Creatinine 0.74 (0.52-1.04) mg/dL Glucose 582 H* 242 H (74-99) mg/dL Calcium 6.4 L* (8.4-10.2) mg/dL Adrenal panel 01/29/20 01/30/20 Range/Units 17:13 06:24 Sodium 137 (137-145) mmol/L Potassium 3.8 (3.5-5.1) mmol/L Chloride 117 H (98-107) mmol/L Carbon Dioxide 19 L (22-30) mmol/L BUN 22 H (7-17) mg/dL Creatinine 0.74 (0.52-1.04) mg/dL Glucose 582 H* 242 H (74-99) mg/dL Calcium 6.4 L* (8.4-10.2) mg/dL Total Bilirubin 0.4 (0.2-1.3) mg/dL AST 15 (14-36) U/L ALT 11 (4-34) U/L Alkaline Phosphatase 45 (38-126) U/L Total Protein 4.2 L (6.3-8.2) g/dL Albumin 2.0 L (3.5-5.0) g/dL Assessment and Plan Assessment: 1. Cellulitis of the right foot 2. Diabetic ulcer on the right foot fourth toe 3. Diabetes mellitus Plan: Dr. Daigle reviewed ABIs from 03/2019 which shows adequate flow for healing. There is no indications for any vascular surgical interventions. Continue with recommendations of IV antibiotics per infectious disease. Continue follow up in wound care clinic as needed. Thank you for this consultation allowing us take part in the plan of care of the patient during her hospital stay. The above dictated assessment and findings were discussed with Dr. Daigle. The impression and plan of care have been directed as dictated.
--- NOTE | 2020-01-30 13:47 | CDI ---
Documentation Clarification Form Date: 01/30/2020 01:28:09 PM From: Janice Freeman RN CCDS Admit Date: 01/28/2020 10:46:00 PM Patient Name: Melva Jackson Visit Number: [id number] Discharge Date: ATTENTION: The Clinical Documentation Specialists (CDI) and [facility] Coding Staff appreciate your assistance in clarifying documentation. Please respond to the clarification below the line at the bottom and electronically sign. The CDI & [facility] Coding staff will review the response and follow-up if needed. Please note: Queries are made part of the Legal Health Record. If you have any questions, please contact the author of this message via ITS. Dr. Sherlyn Chen The diagnosis Sepsis was documented in the Neurology consult 01/28. History/Risk Factors: 59-year-old female presents to the ED via EMS after patient was found unresponsive at home. Medical history DM type1, Seizures, Right foot cellulitis, infections and amputations. Admitting diagnosis Right foot cellulitis possible osteomyelitis. Clinical Indicators: 01/27 Admission VSS: B/P: 67/55; HR: 69; Temp: 97.3; RR: 16; SpO2 99% room air 01/27 Labs: Wbc 4.9; Hgb 7.9; BUN 32, Cr 1.11, Calcium 8.0, Total bili 0.1, Creatinine kinase 25; total protein 5.3; albumin 2.6; UA Culture: Coagulase negative staph 01/28 Neurology Consult: Hypotensive likely due to sepsis from underlying infection: Urinary tract infection, cellulitis of lower extremity. Treatment: 01/27 Vancomycin IVPB; 0.9ns 1L bolus followed by 100cc/hr, Please clarify if Sepsis was: Ruled out Present/active this admission Treated and resolved this admission Other, please specify Clinically unable to determine (Last Query Form Revision: January 2019) Sepsis ruled out MTDD
--- NOTE | 2020-01-30 14:05 | CDI ---
Documentation Clarification Form Date: 01/30/2020 01:51:40 PM From: Janice Freeman RN CCDS Admit Date: 01/28/2020 10:46:00 PM Patient Name: Melva Jackson Visit Number: [id number] Discharge Date: ATTENTION: The Clinical Documentation Specialists (CDI) and [facility] Coding Staff appreciate your assistance in clarifying documentation. Please respond to the clarification below the line at the bottom and electronically sign. The CDI & [facility] Coding staff will review the response and follow-up if needed. Please note: Queries are made part of the Legal Health Record. If you have any questions, please contact the author of this message via ITS. Dr. Sherlyn Chen The patient has Type 1 DM as documented in H&P 01/28. History/Risk Factors: 59-year-old female presents to the ED via EMS after patient was found unresponsive at home. Medical history DM type1, Seizures, Right foot cellulitis, infections and amputations. Admitting diagnosis Right foot cellulitis possible osteomyelitis. Clinical Indicators: 01/27 Labs: Wbc 4.9; Hgb 7.9; BUN 32, Cr 1.11, Calcium 8.0, Total bili 0.1, Creatinine kinase 25; total protein 5.3; albumin 2.6; 01/28 ID consult: Cellulitis of the right foot. Treatment: 01/27 Vancomycin IVPB; 0.9ns 1L bolus followed by 100cc/hr, 01/28 Novolog 6 units x1; Novolog sliding scale AC TID; Levemir 15 Units HS; Please document any body system complications or specific manifestations related to the diabetes: Right Foot Cellulitis Associated with Diabetes No association with Diabetes Other condition Unable to Determine (Last Revision: February 2017) Right foot Cellulitis associated with diabetes MTDD
[2020-01-30 17:09] LABS: Glucose,Whole Blood 508 mg/dL (75-99)
[2020-01-30 17:19] LABS: Glucose,Whole Blood 508 mg/dL (75-99)
--- NOTE | 2020-01-30 17:26 | PN ---
PROGRESS NOTE DATE OF SERVICE: 01/30/2020 REASON FOR FOLLOWUP: Right foot cellulitis. INTERVAL HISTORY: The patient is currently afebrile. The patient is breathing comfortably. Denies having any chest pain or cough. No nausea. No vomiting. No abdominal pain or pain to the right foot. PHYSICAL EXAMINATION: Blood pressure 103/56, pulse of 65, temperature 98. She is 95% on room air. General description is a middle-aged female lying in bed in no distress. RESPIRATORY SYSTEM: Unlabored breathing. Clear to auscultation anteriorly. HEART: S1, S2. Regular rate and rhythm. ABDOMEN: Soft. No tenderness. Right foot with minimal redness, some swelling. No fluctuation or drainage. LABS: Hemoglobin 7.2, white count 2.9, BUN of 22, creatinine 0.74. DIAGNOSTIC IMPRESSION AND PLAN: Patient with right foot cellulitis. Previous history of osteomyelitis, status post amputation. Positive UA. Urine showing coagulase-negative Staph. Patient is covered with vancomycin; to continue while her kidney function closely. Continue with supportive care. MMODL / IJN: [id number] /
--- NOTE | 2020-01-30 17:35 | P.PN ---
Subjective Progress Note Date: 01/30/20 Melva Jackson, is a 59-year-old female, who was found unresponsive at home and was brought in to [facility] emergency room for evaluation and treatment, patient was evaluated in the emergency room, her vital exam reveals a temperature of 97.3 pulse 69 respiration 16 blood pressure 67/55 and pulse ox 99% on room air, computed tomography scan of the brain without contrast was done on presentation and revealed large area of encephalomalacia in the right MCA distribution suggestive of previous large infarct and evidence of mild ventriculomegaly, patient has a known history of stroke, she also has known history of seizure disorder in the past, she did not have any witnessed seizure on the day of presentation however she had the sudden change in her mental status, patient was admitted to telemetry floor for further evaluation. And neurology consultation. Patient also has a known history of insulin-dependent diabetes mellitus type 1, that is very sensitive to insulin, she has history of anemia and history of right foot cellulitis with osteomyelitis with multiple toe amputations, at this time there is evidence of new area of erythema in the right foot suggestive of acute cellulitis, she was started on IV antibiotic in the emergency room, infectious disease and vascular surgery consultation were requested. Clinically patient at this time is alert and responsive in no apparent distress she is denying any complaints. On 01/30/2020 patient was seen and examined on the medical floor she is alert and oriented 3 in no apparent distress there is no fever or chills no headache or dizziness no chest pain no shortness of breath no cough no nausea or vomiting no abdominal pain no diarrhea no burning with urination no frequency or urgency and no hematuria. Erythema on the right foot is improving mental status changes is back to normal possibly patient had a seizure at home and was in postictal state arrival to emergency room. Objective - Vital Signs Vital signs: Vital Signs Temp 98.0 F 01/30/20 08:00 Pulse 69 01/30/20 08:00 Resp 16 01/30/20 08:00 BP 103/56 01/30/20 08:00 Pulse Ox 95 01/30/20 08:00 Intake & Output 01/29/20 01/30/20 01/30/20 18:59 06:59 18:59 Intake Total 236 1260 240 Balance 236 1260 240 Weight 76.5 kg Intake: Intake, IV Titration 900 Amount Sodium Chloride 0.9% 1, 900 000 ml @ 100 mls/hr IV . Q10H [facility] Rx#:[id number] Oral 236 360 240 Other: Voiding Method Bedside Commode Bedside Commode Bedside Commode Diaper Diaper Incontinent Incontinent # Voids 5 2 2 # Bowel Movements 1 - Exam In general patient is alert responsive in no apparent distress HEENT head normocephalic and atraumatic Neck is supple no JVD no goiter no lymphadenopathy Chest exam reveals a few scattered rhonchi no wheezing Cardiac exam reveals regular heart sounds no gallops no murmurs Abdomen is soft nontender no organomegaly Extremity exam reveals no edema no cyanosis or clubbing Right foot has previous amputation of the great toe there is area of erythema in the base of the great toe with tenderness - Labs CBC & Chem 7: 01/30/20 06:24 01/30/20 06:24 Labs: Abnormal Lab Results - Last 24 Hours (Table) 01/29/20 01/29/20 01/29/20 Range/Units 16:54 16:56 17:13 WBC (3.8-10.6) k/uL RBC (3.80-5.40) m/uL Hgb (11.4-16.0) gm/dL Hct (34.0-46.0) % MCHC (31.0-37.0) g/dL Plt Count (150-450) k/uL Neutrophils # (1.3-7.7) k/uL Chloride (98-107) mmol/L Carbon Dioxide (22-30) mmol/L BUN (7-17) mg/dL Glucose 582 H* (74-99) mg/dL POC Glucose (mg/dL) 598 H >600 H (75-99) mg/dL Calcium (8.4-10.2) mg/dL Total Protein (6.3-8.2) g/dL Albumin (3.5-5.0) g/dL 01/29/20 01/29/20 01/30/20 Range/Units 20:32 20:32 04:28 WBC (3.8-10.6) k/uL RBC (3.80-5.40) m/uL Hgb (11.4-16.0) gm/dL Hct (34.0-46.0) % MCHC (31.0-37.0) g/dL Plt Count (150-450) k/uL Neutrophils # (1.3-7.7) k/uL Chloride (98-107) mmol/L Carbon Dioxide (22-30) mmol/L BUN (7-17) mg/dL Glucose (74-99) mg/dL POC Glucose (mg/dL) 559 H 546 H 333 H (75-99) mg/dL Calcium (8.4-10.2) mg/dL Total Protein (6.3-8.2) g/dL Albumin (3.5-5.0) g/dL 01/30/20 01/30/20 01/30/20 Range/Units 06:21 06:24 06:24 WBC 2.9 L (3.8-10.6) k/uL RBC 2.43 L (3.80-5.40) m/uL Hgb 7.2 L D (11.4-16.0) gm/dL Hct 23.4 L (34.0-46.0) % MCHC 30.8 L (31.0-37.0) g/dL Plt Count 122 L (150-450) k/uL Neutrophils # 1.2 L (1.3-7.7) k/uL Chloride 117 H (98-107) mmol/L Carbon Dioxide 19 L (22-30) mmol/L BUN 22 H (7-17) mg/dL Glucose 242 H (74-99) mg/dL POC Glucose (mg/dL) 347 H (75-99) mg/dL Calcium 6.4 L* (8.4-10.2) mg/dL Total Protein 4.2 L (6.3-8.2) g/dL Albumin 2.0 L (3.5-5.0) g/dL 01/30/20 Range/Units 11:18 WBC (3.8-10.6) k/uL RBC (3.80-5.40) m/uL Hgb (11.4-16.0) gm/dL Hct (34.0-46.0) % MCHC (31.0-37.0) g/dL Plt Count (150-450) k/uL Neutrophils # (1.3-7.7) k/uL Chloride (98-107) mmol/L Carbon Dioxide (22-30) mmol/L BUN (7-17) mg/dL Glucose (74-99) mg/dL POC Glucose (mg/dL) 265 H (75-99) mg/dL Calcium (8.4-10.2) mg/dL Total Protein (6.3-8.2) g/dL Albumin (3.5-5.0) g/dL Microbiology - Last 24 Hours (Table) 01/28/20 21:36 Urine Culture - Preliminary Urine,Clean Catch Coagulase Negative Staph 01/28/20 21:36 Blood Culture - Preliminary Blood No Growth after 24 hours Assessment and Plan Plan: 1. Episode of altered mental status, possible postictal state, neurology consultation was requested to assess and review seizure medications 2. Previous history of stroke, with area of large encephalomalacic in the right MCA distribution. 3. Previous history of seizure disorder, patient was maintained on Vimpat and valproic acid 4. Insulin-dependent diabetes mellitus type 1, maintained on insulin 5. Evidence of right foot cellulitis, possible osteomyelitis, patient was started on IV antibiotic infectious disease consultation was requested At this time will monitor closely on telemetry floor Infectious disease consultation and neurology consultation requested Will follow closely
[2020-01-30 20:19] LABS: Glucose,Whole Blood 568 mg/dL (75-99)
[2020-01-30] MEDS ORDERED: INSULIN ASPART (NovoLOG) 100 UNIT/ML VIAL SQ ONE (20:52)
[2020-01-30] MEDS: INSULIN DETEMIR (LEVEMIR) 100 UNIT/ML SYR SQ SCH (21:36)
[2020-01-30] MEDS: QUEtiapine 100 MG TAB PO SCH (21:36)
[2020-01-30 23:45] LABS: Glucose,Whole Blood 309 mg/dL (75-99)
[2020-01-31 03:42] LABS: Glucose,Whole Blood 237 mg/dL (75-99)
[2020-01-31] MEDS: SODIUM CHLORIDE 0.9% 1,000 ML IV SCH ×2 (04:49→21:01)
[2020-01-31 06:28] LABS: Glucose,Whole Blood 141 mg/dL (75-99)
[2020-01-31] MEDS: INSULIN ASPART (NovoLOG) 100 UNIT/ML VIAL SQ SCH ×3 (06:36→17:58)
[2020-01-31] MEDS: METOCLOPRAMIDE 10 MG TAB PO SCH ×3 (06:41→17:58)
[2020-01-31] MEDS: PANTOPRAZOLE 40 MG TABLET PO SCH (06:41)
[2020-01-31] MEDS: DULoxetine HCL 60 MG CAPSULE.DR PO SCH (09:33)
[2020-01-31] MEDS: ATORVASTATIN 20 MG TAB PO SCH (09:33)
[2020-01-31] MEDS: ASPIRIN 81 MG PO SCH (09:33)
[2020-01-31] MEDS: ASCORBIC ACID 500 MG TAB PO SCH (09:33)
[2020-01-31] MEDS: FERROUS SULFATE 325 MG TAB PO SCH (09:33)
[2020-01-31] MEDS: LACOSAMIDE 50 MG TABLET PO SCH ×2 (09:33→22:24)
[2020-01-31] MEDS: DIVALPROEX 250 MG TABLET.DR PO SCH ×3 (09:33→23:37)
[2020-01-31] MEDS: VALPROIC ACID ORAL SOLN 250 MG/5 ML CUP PO SCH (09:33)
[2020-01-31] MEDS: LOSARTAN 50 MG TAB PO SCH (09:33)
[2020-01-31] MEDS: FAMOTIDINE 20 MG TAB PO SCH (09:33)
[2020-01-31] MEDS: QUEtiapine 25 MG TAB PO SCH ×2 (09:33→22:24)
[2020-01-31 11:54] LABS: Glucose,Whole Blood 236 mg/dL (75-99)
[2020-01-31] MEDS: NON FORMULARY DRUG (Vitamin B Complex [Vitamin B Complex] 1 TAB) PO SCH (12:32)
[2020-01-31] MEDS ORDERED: VANCOMYCIN TROUGH DUE 1 EACH MISC MISCELLANE ONE (13:00)
[2020-01-31] MEDS: VANCOMYCIN 1,000 MG in SODIUM CHLORIDE 0.9% 250 ML IVPB SCH (14:52)
[2020-01-31 16:32] LABS: Glucose,Whole Blood 173 mg/dL (75-99)
--- NOTE | 2020-01-31 16:41 | PN ---
PROGRESS NOTE DATE OF SERVICE: 01/31/2020 REASON FOR FOLLOWUP: Right foot cellulitis. INTERVAL HISTORY: The patient is currently afebrile. Patient is breathing comfortably. Patient denies having any chest pain or cough. No nausea. No abdominal pain. No pain to the right foot. PHYSICAL EXAMINATION: Blood pressure 110/57, pulse 95, temperature 98, she is 100% on room air. General description is a middle-aged female up in the bed in no distress. RESPIRATORY SYSTEM: Unlabored breathing, clear to auscultation anteriorly. HEART: S1, S2. Regular rate and rhythm. ABDOMEN: Soft, no tenderness. Right foot did have minimal swelling and redness, no drainage. LABS: Vanco level is 12.5. Urine with Staph epidermidis. DIAGNOSTIC IMPRESSION AND PLAN: Patient admitted to the hospital with mental status changes and question of a seizure disorder, in this patient who did have a right foot cellulitis and UTI urine has been Staph epi. Patient is covered with vancomycin to continue. Will monitor her clinical course and kidney function closely. Continue supportive care. Umang the area of the redness right foot. MMODL / IJN: [id number] /
--- NOTE | 2020-01-31 16:59 | P.PN ---
Subjective Progress Note Date: 01/31/20 Melva Jackson, is a 59-year-old female, who was found unresponsive at home and was brought in to [facility] emergency room for evaluation and treatment, patient was evaluated in the emergency room, her vital exam reveals a temperature of 97.3 pulse 69 respiration 16 blood pressure 67/55 and pulse ox 99% on room air, computed tomography scan of the brain without contrast was done on presentation and revealed large area of encephalomalacia in the right MCA distribution suggestive of previous large infarct and evidence of mild ventriculomegaly, patient has a known history of stroke, she also has known history of seizure disorder in the past, she did not have any witnessed seizure on the day of presentation however she had the sudden change in her mental status, patient was admitted to telemetry floor for further evaluation. And neurology consultation. Patient also has a known history of insulin-dependent diabetes mellitus type 1, that is very sensitive to insulin, she has history of anemia and history of right foot cellulitis with osteomyelitis with multiple toe amputations, at this time there is evidence of new area of erythema in the right foot suggestive of acute cellulitis, she was started on IV antibiotic in the emergency room, infectious disease and vascular surgery consultation were requested. Clinically patient at this time is alert and responsive in no apparent distress she is denying any complaints. On 01/30/2020 patient was seen and examined on the medical floor she is alert and oriented 3 in no apparent distress there is no fever or chills no headache or dizziness no chest pain no shortness of breath no cough no nausea or vomiting no abdominal pain no diarrhea no burning with urination no frequency or urgency and no hematuria. Erythema on the right foot is improving mental status changes is back to normal possibly patient had a seizure at home and was in postictal state arrival to emergency room. On 01/31/2020 patient was seen and examined on the medical floor she is alert and oriented 3 in no apparent distress there is no fever or chills no headache or dizziness no chest pain no shortness of breath no cough no nausea or vomiting no abdominal pain no diarrhea no burning with urination no frequency or urgency and no hematuria, right foot erythema is slightly better today Objective - Vital Signs Vital signs: Vital Signs Temp 97.5 F L 01/31/20 03:44 Pulse 82 01/31/20 15:56 Resp 18 01/31/20 15:56 BP 120/83 01/31/20 15:56 Pulse Ox 98 01/31/20 15:56 Intake & Output 01/30/20 01/31/20 01/31/20 18:59 06:59 18:59 Intake Total 480 240 356 Balance 480 240 356 Weight 77 kg Intake: Oral 480 240 356 Other: Voiding Method Bedside Commode Bedside Commode Bedside Commode Diaper Diaper Diaper Incontinent Incontinent Incontinent # Voids 2 3 3 # Bowel Movements 1 - Exam In general patient is alert responsive in no apparent distress HEENT head normocephalic and atraumatic Neck is supple no JVD no goiter no lymphadenopathy Chest exam reveals a few scattered rhonchi no wheezing Cardiac exam reveals regular heart sounds no gallops no murmurs Abdomen is soft nontender no organomegaly Extremity exam reveals no edema no cyanosis or clubbing Right foot has previous amputation of the great toe there is area of erythema in the base of the great toe with tenderness - Labs CBC & Chem 7: 01/30/20 06:24 01/31/20 06:13 Labs: Abnormal Lab Results - Last 24 Hours (Table) 01/30/20 01/30/20 01/30/20 Range/Units 17:08 17:17 20:18 POC Glucose (mg/dL) 508 H 508 H 568 H (75-99) mg/dL 01/30/20 01/31/20 01/31/20 Range/Units 23:44 03:40 06:27 POC Glucose (mg/dL) 309 H 237 H 141 H (75-99) mg/dL 01/31/20 01/31/20 Range/Units 11:52 16:30 POC Glucose (mg/dL) 236 H 173 H (75-99) mg/dL Microbiology - Last 24 Hours (Table) 01/28/20 21:36 Urine Culture - Final Urine,Clean Catch Staphylococcus epidermidis 01/28/20 21:36 Blood Culture - Preliminary Blood No Growth after 48 hours Assessment and Plan Plan: 1. Episode of altered mental status, possible postictal state, neurology consultation was requested to assess and review seizure medications 2. Previous history of stroke, with area of large encephalomalacic in the right MCA distribution. 3. Previous history of seizure disorder, patient was maintained on Vimpat and valproic acid 4. Insulin-dependent diabetes mellitus type 1, maintained on insulin 5. Evidence of right foot cellulitis, possible osteomyelitis, patient was started on IV antibiotic infectious disease consultation was requested At this time will monitor closely on telemetry floor Infectious disease consultation and neurology consultation requested Will follow closely
[2020-01-31] MEDS: CALCIUM CARB-VIT D 500MG-200UN 1 EACH TAB PO SCH (17:58)
[2020-01-31 19:39] LABS: Glucose,Whole Blood 143 mg/dL (75-99)
[2020-01-31] MEDS: QUEtiapine 100 MG TAB PO SCH (22:24)
[2020-01-31] MEDS: INSULIN DETEMIR (LEVEMIR) 100 UNIT/ML SYR SQ SCH (22:26)
[2020-01-31] MEDS: ALPRAZolam 1 MG TAB PO PRN (23:37)
[2020-02-01] MEDS: SODIUM CHLORIDE 0.9% 1,000 ML IV SCH ×3 (03:00→22:08)
[2020-02-01 06:18] LABS: Basophils % (A) 1 %; Eosinophils # (A) 0.1 k/uL (0-0.7); Eosinophils % (A) 1 %; HCT 25.3 % (34.0-46.0); HGB 7.8 gm/dL (11.4-16.0); Hypochromasia Moderate; Lymphocytes # (A) 1.9 k/uL (1.0-4.8); Lymphocytes % (A) 46 %; MCH 29.6 pg (25.0-35.0); MCHC 30.8 g/dL (31.0-37.0); Mean Platelet Volume 8.1; Monocytes # (A) 0.2 k/uL (0-1.0); Monocytes % (A) 4 %; Neutrophils # (A) 1.8 k/uL (1.3-7.7); Neutrophils % (A) 46 %; Platelet Count 129 k/uL (150-450); RBC 2.64 m/uL (3.80-5.40); RDW 15.4 % (11.5-15.5)
[2020-02-01 06:30] LABS: Glucose,Whole Blood 242 mg/dL (75-99)
[2020-02-01 06:44] LABS: Albumin 2.4 g/dL (3.5-5.0); Calcium 8.1 mg/dL (8.4-10.2); Potassium 4.3 mmol/L (3.5-5.1); Total Bilirubin 0.1 mg/dL (0.2-1.3)
[2020-02-01] MEDS: INSULIN ASPART (NovoLOG) 100 UNIT/ML VIAL SQ SCH ×3 (06:59→17:57)
[2020-02-01] MEDS: METOCLOPRAMIDE 10 MG TAB PO SCH ×3 (06:59→18:11)
[2020-02-01] MEDS: CALCIUM CARB-VIT D 500MG-200UN 1 EACH TAB PO SCH ×2 (06:59→17:57)
[2020-02-01] MEDS: PANTOPRAZOLE 40 MG TABLET PO SCH (06:59)
[2020-02-01] MEDS: VANCOMYCIN 1,000 MG in SODIUM CHLORIDE 0.9% 250 ML IVPB SCH ×2 (07:09→21:53)
[2020-02-01] MEDS: FAMOTIDINE 20 MG TAB PO SCH (08:48)
[2020-02-01] MEDS: DULoxetine HCL 60 MG CAPSULE.DR PO SCH (08:49)
[2020-02-01] MEDS: LOSARTAN 50 MG TAB PO SCH (08:49)
[2020-02-01] MEDS: DIVALPROEX 250 MG TABLET.DR PO SCH ×3 (08:49→21:42)
[2020-02-01] MEDS: QUEtiapine 25 MG TAB PO SCH ×2 (08:49→21:42)
[2020-02-01] MEDS: ATORVASTATIN 20 MG TAB PO SCH (08:49)
[2020-02-01] MEDS: LACOSAMIDE 50 MG TABLET PO SCH ×2 (08:49→21:42)
[2020-02-01] MEDS: VALPROIC ACID ORAL SOLN 250 MG/5 ML CUP PO SCH (08:49)
[2020-02-01] MEDS: ASCORBIC ACID 500 MG TAB PO SCH (08:49)
[2020-02-01] MEDS: FERROUS SULFATE 325 MG TAB PO SCH (08:49)
[2020-02-01] MEDS: ASPIRIN 81 MG PO SCH (08:49)
[2020-02-01 12:04] LABS: Glucose,Whole Blood 98 mg/dL (75-99)
[2020-02-01] MEDS: NON FORMULARY DRUG (Vitamin B Complex [Vitamin B Complex] 1 TAB) PO SCH (12:19)
--- NOTE | 2020-02-01 16:58 | P.PN ---
Subjective Progress Note Date: 02/01/20 Melva Jackson, is a 59-year-old female, who was found unresponsive at home and was brought in to [facility] emergency room for evaluation and treatment, patient was evaluated in the emergency room, her vital exam reveals a temperature of 97.3 pulse 69 respiration 16 blood pressure 67/55 and pulse ox 99% on room air, computed tomography scan of the brain without contrast was done on presentation and revealed large area of encephalomalacia in the right MCA distribution suggestive of previous large infarct and evidence of mild ventriculomegaly, patient has a known history of stroke, she also has known history of seizure disorder in the past, she did not have any witnessed seizure on the day of presentation however she had the sudden change in her mental status, patient was admitted to telemetry floor for further evaluation. And neurology consultation. Patient also has a known history of insulin-dependent diabetes mellitus type 1, that is very sensitive to insulin, she has history of anemia and history of right foot cellulitis with osteomyelitis with multiple toe amputations, at this time there is evidence of new area of erythema in the right foot suggestive of acute cellulitis, she was started on IV antibiotic in the emergency room, infectious disease and vascular surgery consultation were requested. Clinically patient at this time is alert and responsive in no apparent distress she is denying any complaints. On 01/30/2020 patient was seen and examined on the medical floor she is alert and oriented 3 in no apparent distress there is no fever or chills no headache or dizziness no chest pain no shortness of breath no cough no nausea or vomiting no abdominal pain no diarrhea no burning with urination no frequency or urgency and no hematuria. Erythema on the right foot is improving mental status changes is back to normal possibly patient had a seizure at home and was in postictal state arrival to emergency room. On 01/31/2020 patient was seen and examined on the medical floor she is alert and oriented 3 in no apparent distress there is no fever or chills no headache or dizziness no chest pain no shortness of breath no cough no nausea or vomiting no abdominal pain no diarrhea no burning with urination no frequency or urgency and no hematuria, right foot erythema is slightly better today On 02/01/2020 patient was seen and examined on the medical floor she is alert and oriented in no distress no evidence of any seizure activity no evidence of postictal state, foot erythema is stable with probably slight improvement otherwise patient denies any complaints Objective - Vital Signs Vital signs: Vital Signs Temp 97.7 F 02/01/20 12:51 Pulse 75 02/01/20 12:51 Resp 18 02/01/20 12:51 BP 122/60 02/01/20 12:51 Pulse Ox 99 02/01/20 12:51 Intake & Output 01/31/20 02/01/20 02/01/20 18:59 06:59 18:59 Intake Total 832 90 Balance 832 90 Weight 76.5 kg Intake: Oral 832 90 Other: Voiding Method Bedside Commode Bedside Commode Bedside Commode Diaper Diaper Diaper Incontinent Incontinent Incontinent # Voids 3 0 # Bowel Movements 1 - Exam In general patient is alert responsive in no apparent distress HEENT head normocephalic and atraumatic Neck is supple no JVD no goiter no lymphadenopathy Chest exam reveals a few scattered rhonchi no wheezing Cardiac exam reveals regular heart sounds no gallops no murmurs Abdomen is soft nontender no organomegaly Extremity exam reveals no edema no cyanosis or clubbing Right foot has previous amputation of the great toe there is area of erythema in the base of the great toe with tenderness - Labs CBC & Chem 7: 02/01/20 05:35 02/01/20 05:35 Labs: Abnormal Lab Results - Last 24 Hours (Table) 01/31/20 01/31/20 02/01/20 Range/Units 16:30 19:35 05:35 RBC (3.80-5.40) m/uL Hgb (11.4-16.0) gm/dL Hct (34.0-46.0) % MCHC (31.0-37.0) g/dL Plt Count (150-450) k/uL Chloride 110 H (98-107) mmol/L BUN 21 H (7-17) mg/dL Glucose 246 H (74-99) mg/dL POC Glucose (mg/dL) 173 H 143 H (75-99) mg/dL Calcium 8.1 L (8.4-10.2) mg/dL Total Bilirubin 0.1 L (0.2-1.3) mg/dL Total Protein 5.0 L (6.3-8.2) g/dL Albumin 2.4 L (3.5-5.0) g/dL 02/01/20 02/01/20 Range/Units 05:35 06:29 RBC 2.64 L (3.80-5.40) m/uL Hgb 7.8 L (11.4-16.0) gm/dL Hct 25.3 L (34.0-46.0) % MCHC 30.8 L (31.0-37.0) g/dL Plt Count 129 L (150-450) k/uL Chloride (98-107) mmol/L BUN (7-17) mg/dL Glucose (74-99) mg/dL POC Glucose (mg/dL) 242 H (75-99) mg/dL Calcium (8.4-10.2) mg/dL Total Bilirubin (0.2-1.3) mg/dL Total Protein (6.3-8.2) g/dL Albumin (3.5-5.0) g/dL Microbiology - Last 24 Hours (Table) 01/28/20 21:36 Blood Culture - Preliminary Blood No Growth after 72 hours 01/28/20 21:36 Urine Culture - Final Urine,Clean Catch Staphylococcus epidermidis Assessment and Plan Plan: 1. Episode of altered mental status, possible postictal state, neurology consultation was requested to assess and review seizure medications 2. Previous history of stroke, with area of large encephalomalacic in the right MCA distribution. 3. Previous history of seizure disorder, patient was maintained on Vimpat and valproic acid 4. Insulin-dependent diabetes mellitus type 1, maintained on insulin 5. Evidence of right foot cellulitis, possible osteomyelitis, patient was started on IV antibiotic infectious disease consultation was requested At this time will monitor closely on telemetry floor Infectious disease consultation and neurology consultation requested Will follow closely
[2020-02-01 17:09] LABS: Glucose,Whole Blood 174 mg/dL (75-99)
--- NOTE | 2020-02-01 18:40 | PN ---
PROGRESS NOTE DATE OF SERVICE: 02/01/2020 REASON FOR FOLLOWUP: Right foot cellulitis. INTERVAL HISTORY: The patient is currently afebrile. The patient is breathing comfortably. Denies having any chest pain or shortness of breath or cough. No abdominal pain or pain to the right foot. PHYSICAL EXAMINATION: Blood pressure 137/49 with a pulse 58, temperature 97.7. He is 98% on room air. General description is a middle-aged female up in the chair in no distress. RESPIRATORY SYSTEM: Unlabored breathing. Clear to auscultation anteriorly. HEART: S1, S2. Regular rate and rhythm. ABDOMEN: Soft. No tenderness. Right foot with minimal swelling and redness. No drainage. LABS: Hemoglobin 7.9, white count 4.0, BUN of 21, creatinine 0.83. DIAGNOSTIC IMPRESSION AND PLAN: Patient with right foot cellulitis and Staphylococcus epidermidis and urinary tract infection. Patient is covered with vancomycin; to finish therapy with doxycycline and close outpatient followup. MMODL / IJN: [id number] /
[2020-02-01 19:59] LABS: Glucose,Whole Blood 157 mg/dL (75-99)
[2020-02-01] MEDS: ALPRAZolam 0.5 MG TAB PO PRN (21:42)
[2020-02-01] MEDS: INSULIN DETEMIR (LEVEMIR) 100 UNIT/ML SYR SQ SCH (21:44)
[2020-02-01] MEDS: QUEtiapine 100 MG TAB PO SCH (22:09)
[2020-02-02 06:25] LABS: Glucose,Whole Blood 198 mg/dL (75-99)
[2020-02-02] MEDS: METOCLOPRAMIDE 10 MG TAB PO SCH ×3 (07:06→17:16)
[2020-02-02] MEDS: CALCIUM CARB-VIT D 500MG-200UN 1 EACH TAB PO SCH ×2 (07:06→17:16)
[2020-02-02] MEDS: INSULIN ASPART (NovoLOG) 100 UNIT/ML VIAL SQ SCH ×3 (07:06→17:17)
[2020-02-02] MEDS: PANTOPRAZOLE 40 MG TABLET PO SCH (07:06)
[2020-02-02] MEDS: SODIUM CHLORIDE 0.9% 1,000 ML IV SCH ×2 (07:14→17:16)
[2020-02-02] MEDS: QUEtiapine 25 MG TAB PO SCH (09:42)
[2020-02-02] MEDS: FERROUS SULFATE 325 MG TAB PO SCH (09:42)
[2020-02-02] MEDS: ATORVASTATIN 20 MG TAB PO SCH (09:42)
[2020-02-02] MEDS: ASPIRIN 81 MG PO SCH (09:42)
[2020-02-02] MEDS: ALPRAZolam 0.5 MG TAB PO PRN (09:42)
[2020-02-02] MEDS: ASCORBIC ACID 500 MG TAB PO SCH (09:42)
[2020-02-02] MEDS: FAMOTIDINE 20 MG TAB PO SCH (09:42)
[2020-02-02] MEDS: DULoxetine HCL 60 MG CAPSULE.DR PO SCH (09:42)
[2020-02-02] MEDS: LACOSAMIDE 50 MG TABLET PO SCH (09:42)
[2020-02-02] MEDS: LOSARTAN 50 MG TAB PO SCH (09:42)
[2020-02-02] MEDS: VALPROIC ACID ORAL SOLN 250 MG/5 ML CUP PO SCH (09:43)
[2020-02-02] MEDS: DIVALPROEX 250 MG TABLET.DR PO SCH ×2 (09:43→17:16)
[2020-02-02] MEDS: NON FORMULARY DRUG (Vitamin B Complex [Vitamin B Complex] 1 TAB) PO SCH (09:44)
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
[2020-02-02 11:43] VITALS: BMI 31.0
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
[2020-02-02] MEDS ORDERED: ATORVASTATIN 20 MG TAB PO ONE (12:30)
[2020-02-02] MEDS ORDERED: ATORVASTATIN 80 MG TAB PO SCH (12:30)
[2020-02-02] MEDS ORDERED: CLOPIDOGREL 75 MG TAB PO SCH (12:30)
[2020-02-02 12:43] VITALS: BP 139/67; RESP 17; TEMP 97.5
[2020-02-02] MEDS: VANCOMYCIN 1,000 MG in SODIUM CHLORIDE 0.9% 250 ML IVPB SCH (13:25)
--- NOTE | 2020-02-02 13:54 | P.DS ---
Providers Date of admission: 01/28/20 22:46 Expected date of discharge: 02/02/20 Attending physician: Sherlyn Chen Consults: 01/29/20 13:58 Consult Physician Routine Consulting Provider: Rufina Chapa Consult Reason/Comments: foot cellulitis Do you want consulting provider notified?: Yes 01/29/20 13:59 Consult Physician Routine Consulting Provider: Mahi Daigle Consult Reason/Comments: foot cellulitis Do you want consulting provider notified?: Yes 01/29/20 16:23 Consult Physician Routine Consulting Provider: Jose Carlos Ortiz Consult Reason/Comments: possible new seizure, patient was unarousable at home Do you want consulting provider notified?: Yes Primary care physician: Sherlynpaco Chen [place] [facility] Course: Diagnosis on discharge: 1. Episode of altered mental status, possible postictal state, neurology consultation was requested to assess and review seizure medications. Patient was evaluated by neurology, dose of Vimpat was increased to 75 mg twice daily. 2. Previous history of stroke, with area of large encephalomalacic in the right MCA distribution. 3. Previous history of seizure disorder, patient was maintained on Vimpat and valproic acid 4. Insulin-dependent diabetes mellitus type 1, maintained on insulin, continue with Levemir 15 units at bedtime and NovoLog 5 units with each meal 5. Evidence of right foot cellulitis, possible osteomyelitis, patient was started on IV antibiotic infectious disease consultation was requested, patient was evaluated by infectious disease Dr. Chapa, she received IV vancomycin during this admission, she was cleared for discharge on Bactrim DS 1 twice a day for 7 days Hospital course: Melva Jackson, is a 59-year-old female, who was found unresponsive at home and was brought in to [facility] emergency room for evaluation and treatment, patient was evaluated in the emergency room, her vital exam reveals a temperature of 97.3 pulse 69 respiration 16 blood pressure 67/55 and pulse ox 99% on room air, computed tomography scan of the brain without contrast was done on presentation and revealed large area of encephalomalacia in the right MCA distribution suggestive of previous large infarct and evidence of mild ventriculomegaly, patient has a known history of stroke, she also has known history of seizure disorder in the past, she did not have any witnessed seizure on the day of presentation however she had the sudden change in her mental status, patient was admitted to telemetry floor for further evaluation. And neurology consultation. Patient also has a known history of insulin-dependent diabetes mellitus type 1, that is very sensitive to insulin, she has history of anemia and history of right foot cellulitis with osteomyelitis with multiple toe amputations, at this time there is evidence of new area of erythema in the right foot suggestive of acute cellulitis, she was started on IV antibiotic in the emergency room, infectious disease and vascular surgery consultation were requested. Clinically patient at this time is alert and responsive in no apparent distress she is denying any complaints. On 01/30/2020 patient was seen and examined on the medical floor she is alert and oriented 3 in no apparent distress there is no fever or chills no headache or dizziness no chest pain no shortness of breath no cough no nausea or vomiting no abdominal pain no diarrhea no burning with urination no frequency or urgency and no hematuria. Erythema on the right foot is improving mental status changes is back to normal possibly patient had a seizure at home and was in postictal state arrival to emergency room. On 01/31/2020 patient was seen and examined on the medical floor she is alert and oriented 3 in no apparent distress there is no fever or chills no headache or dizziness no chest pain no shortness of breath no cough no nausea or vomiting no abdominal pain no diarrhea no burning with urination no frequency or urgency and no hematuria, right foot erythema is slightly better today On 02/01/2020 patient was seen and examined on the medical floor she is alert and oriented in no distress no evidence of any seizure activity no evidence of postictal state, foot erythema is stable with probably slight improvement otherwise patient denies any complaints On 02/02/2020 patient was seen and examined on the medical floor she is alert and oriented in no distress, she is denying any symptoms at this time that is no fever or chills no headache or dizziness no chest pain no shortness of breath no cough no nausea or vomiting no abdominal pain no diarrhea no burning with urination no frequency or urgency and no hematuria, she was evaluated by vascular surgery, and will be followed by them as outpatient for further evaluation and treatment, she was seen this morning by Dr. Chapa infectious disease, and was cleared for discharge on Bactrim DS 1 pill twice daily for 7 more days, will follow in the office within one week for further evaluation. Patient Condition at Discharge: Stable Plan - Discharge Summary Discharge Rx Participant: No New Discharge Prescriptions: New Sulfamethox-Tmp 800-160Mg [Bactrim DS 800-160 mg] 1 tab PO Q12HR 7 Days #14 tab INSULIN ASPART (NovoLOG) [NovoLOG (formulary)] 0 unit SQ AC-TID vial Calcium Carb-Vit D 500Mg-200Un [Oscal 500+D] 1 each PO BID-W/MEALS tab Clopidogrel [Plavix] 75 mg PO DAILY tab Lacosamide [Vimpat] 75 mg PO BID tablet Continue Famotidine [Pepcid] 20 mg PO DAILY HYDROcodone/APAP 10-325MG [[place] 10-325] 1 tab PO TID PRN PRN Reason: Pain DULoxetine HCL [Cymbalta] 60 mg PO DAILY QUEtiapine [SEROquel] 100 mg PO HS Atorvastatin [Lipitor] 20 mg PO DAILY Aspirin [Adult Low Dose Aspirin EC] 81 mg PO DAILY Ferrous Sulfate [Iron (65 MG Elemental)] 325 mg PO DAILY Divalproex [Depakote] 250 mg PO TID #90 tablet. ALPRAZolam [Xanax] 1 mg PO Q8H PRN PRN Reason: Anxiety Albuterol Sulfate [Ventolin HFA] 2 puff INHALATION RT-Q4H PRN PRN Reason: Shortness Of Breath Valproic Acid [Depakene] 250 mg PO DAILY Ondansetron Odt [Zofran ODT] 4 mg PO DAILY PRN PRN Reason: Nausea QUEtiapine [SEROquel] 25 mg PO BID Pantoprazole Sodium [Protonix] 20 mg PO DAILY Losartan [Cozaar] 50 mg PO DAILY tab Metoclopramide [Reglan] 10 mg PO AC-TID tab Insulin Glargine,Hum.rec.anlog [Basaglar Kwikpen U-100] 15 unit SQ HS Ascorbic Acid [Vitamin C] 500 mg PO DAILY Vitamin B Complex 1 tab PO DAILY Discontinued INSULIN LISPRO (humaLOG) [humaLOG] See Protocol SQ ACHS Lacosamide [Vimpat] 50 mg PO BID tablet Discharge Medication List Famotidine [Pepcid] 20 mg PO DAILY 07/19/15 [History] HYDROcodone/APAP 10-325MG [[place] 10-325] 1 tab PO TID PRN 10/03/16 [History] DULoxetine HCL [Cymbalta] 60 mg PO DAILY 02/16/17 [History] Atorvastatin [Lipitor] 20 mg PO DAILY 12/28/18 [History] QUEtiapine [SEROquel] 100 mg PO HS 12/28/18 [History] Aspirin [Adult Low Dose Aspirin EC] 81 mg PO DAILY 06/09/19 [History] Ferrous Sulfate [Iron (65 MG Elemental)] 325 mg PO DAILY 06/09/19 [History] Divalproex [Depakote] 250 mg PO TID #90 tablet. 08/17/19 [Rx] ALPRAZolam [Xanax] 1 mg PO Q8H PRN 12/26/19 [History] Albuterol Sulfate [Ventolin HFA] 2 puff INHALATION RT-Q4H PRN 12/26/19 [History] Ondansetron Odt [Zofran ODT] 4 mg PO DAILY PRN 12/26/19 [History] Valproic Acid [Depakene] 250 mg PO DAILY 12/26/19 [History] Pantoprazole Sodium [Protonix] 20 mg PO DAILY 01/10/20 [History] QUEtiapine [SEROquel] 25 mg PO BID 01/10/20 [History] Losartan [Cozaar] 50 mg PO DAILY tab 01/18/20 [Rx] Metoclopramide [Reglan] 10 mg PO AC-TID tab 01/18/20 [Rx] Ascorbic Acid [Vitamin C] 500 mg PO DAILY 01/29/20 [History] Insulin Glargine,Hum.rec.anlog [Basaglar Anshuikpen U-100] 15 unit SQ HS 01/29/20 [History] Vitamin B Complex 1 tab PO DAILY 01/29/20 [History] Calcium Carb-Vit D 500Mg-200Un [Oscal 500+D] 1 each PO BID-W/MEALS tab 02/02/20 [Rx] Clopidogrel [Plavix] 75 mg PO DAILY tab 02/02/20 [Rx] INSULIN ASPART (NovoLOG) [NovoLOG (formulary)] 0 unit SQ AC-TID vial 02/02/20 [Rx] Lacosamide [Vimpat] 75 mg PO BID tablet 02/02/20 [Rx] Sulfamethox-Tmp 800-160Mg [Bactrim DS 800-160 mg] 1 tab PO Q12HR 7 Days #14 tab 02/02/20 [Rx] Follow up Appointment(s)/Referral(s): Sherlyn Chen MD [Primary Care Provider] - 1-2 days
--- NOTE | 2020-02-02 15:46 | US ---
EXAMINATION TYPE: US carotid duplex BILAT DATE OF EXAM: 02/02/2020 COMPARISON: US 04/26/2017, CT 04/27/2017 CLINICAL HISTORY: stroke right internal carotid artery occlusion. EXAM MEASUREMENTS: RIGHT: Peak Systolic Velocity (PSV) cm/sec ----- Right CCA: 24.7 ----- Right ICA: Occluded ----- Right ECA: 103.2 ICA/CCA ratio: 0 RIGHT: End Diastole cm/sec ----- Right CCA: 0.0 ----- Right ICA: 0.0 ----- Right ECA: 14.4 LEFT: Peak Systolic Velocity (PSV) cm/sec ----- Left CCA: 64.4 ----- Left ICA: 69.8 ----- Left ECA: 55.5 ICA/CCA ratio: 1.1 LEFT: End Diastole cm/sec ----- Left CCA: 16.0 ----- Left ICA: 25.8 ----- Left ECA: 12.8 VERTEBRALS (direction of flow): Right Vertebral: Antegrade Left Vertebral: Antegrade Rhythm: Normal Chairperson Anesthesiology notes: Very difficult and limited exam due to patient movement and patient mental status. Unable to obtain any flow in right ICA, probable occlusion as seen on previous exams. Intimal thicke valeri visualized bilaterally. IMPRESSION: 1. Redemonstrated chronic occlusion of the right ICA. 2. Moderate atherosclerotic change at the left bifurcation without hemodynamically significant stenos is. Criteria for Assigning % of Stenosis / Diameter reduction (Estimation based on the indirect measurements of the internal carotid artery velocities (ICA PSV). 1. Normal (no stenosis)=ICA PSV < 125 cm/s: ratio < 2.0: ICA EDV<40 cm/s. 2. Less than 50% stenosis=ICA PSV < 125 cm/s: ratio < 2.0: ICA EDV<40 cm/s. 3. 50 to 69% stenosis=ICA PSV of 125 to 230 cm/s: ration 2.0 ? 4.0: ICA EDV 40-100 cm/s. 4. Greater than 70% stenosis to near occlusion= ICA PSV > 230 cm/s: ratio > 4.0: ICA EDV > 100 cm/s. 5. Near occlusion= ICA PSV velocities may be low or undetectable: variable ratio and ICA EDV. 6. Total occlusion=unable to detect flow.
--- NOTE | 2020-02-02 15:46 | PN ---
PROGRESS NOTE DATE OF SERVICE: 02/02/2020 REASON FOR FOLLOWUP: 1. Right foot cellulitis. 2. UTI. INTERVAL HISTORY: Patient is currently afebrile. The patient is breathing comfortably. Denies having any chest pain, no cough. No nausea, no vomiting, no abdominal pain. No burning or frequency of urine or pain to the right foot. PHYSICAL EXAMINATION: Blood pressure 139/67, pulse 67, temp 97.5, she is 100% on room air. General description is a middle-aged female, lying in bed in no distress. RESPIRATORY SYSTEM: Unlabored breathing, clear to auscultation anteriorly. HEART: S1, S2. Regular rate and rhythm. ABDOMEN: Soft, no tenderness. The right foot swelling and redness has almost resolved. LABS: Creatinine 0.89. Blood culture negative. DIAGNOSTIC IMPRESSION AND PLAN: 1. Patient with Staph epi urinary tract infection, adequately treated. 2. Right foot cellulitis, overall clinical improvement on vancomycin to finish therapy with oral Bactrim DS one b.i.d. for 7 days and close outpatient followup. Plan of care discussed with admitting physician who was working on discharge. MMODL / IJN: [id number] /
[2020-02-02 16:44] LABS: Glucose,Whole Blood 174 mg/dL (75-99)
[2020-02-02 17:52] VITALS: PULSE 77
[2020-02-03] MEDS ORDERED: VANCOMYCIN TROUGH DUE 1 EACH MISC MISCELLANE ONE (05:00)
[2020-02-03] MEDS ORDERED: ATORVASTATIN 80 MG TAB PO SCH (09:00)
--- NOTE | 2020-02-06 13:15 | CDI ---
Documentation Clarification Form Date: 02/06/20 From: Irene Wen CCS Phone: If you have a question about this query, please contact Elina Vazquez, [employer] Design Engineer at [phone] between 8am and 5pm. Admit Date: 01/28/20 Discharge Date:02/02/20 Patient Name: Melva Jackson Visit Number: [id number] ATTENTION: The Clinical Documentation Specialists (CDI) and [facility] Coding Staff appreciate your assistance in clarifying documentation. Please respond to the clarification below the line at the bottom and electronically sign. The CDI & [facility] Coding staff will review the response and follow-up if needed. Please note: Queries are made part of the Legal Health Record. If you have any questions, please contact the author of this message via ITS. Dear Dr. Chen, Uncontrolled diabetes type I is documented in the Consult (01/28), PNs. History/Risk Factors: DM type 1 with complications, HTN, COPD, Seizure D/O, CAD, HX CVA Clinical Indicators: Uncontrolled diabetes Glucose: 120, 582, 242 Treatment: Novolog SQ, Levemir SQ, HulaLOG SQ In order to capture the severity of Illness and necessary documentation specificity, please clarify: Uncontrolled DM Type 1 with hyperglycemia Uncontrolled DM Type 1 with hypoglycemia Other, please specify Unable to Determine uncontrolled DM type 1 with hyperglycemia MTDD
== END 2020-02-02 17:45 | disposition home health service (06) | DRG 638 ==
LOC: EC 21:15 → 3SCARD 22:46
PROVIDERS: ADMIT Internal Medicine; ATTEND Internal Medicine
DX: E10.628 Type 1 diabetes mellitus with other skin complications (principal); I69.354 Hemiplegia and hemiparesis following cerebral infarction affecting left non-dominant side; L03.115 Cellulitis of right lower limb; N39.0 Urinary tract infection, site not specified; M86.9 Osteomyelitis, unspecified; E10.42 Type 1 diabetes mellitus with diabetic polyneuropathy; E10.319 Type 1 diabetes mellitus with unspecified diabetic retinopathy without macular edema; I95.9 Hypotension, unspecified; E10.621 Type 1 diabetes mellitus with foot ulcer; I50.9 Heart failure, unspecified; G93.89 Other specified disorders of brain; E10.69 Type 1 diabetes mellitus with other specified complication; I11.0 Hypertensive heart disease with heart failure; Z79.4 Long term (current) use of insulin; J44.9 Chronic obstructive pulmonary disease, unspecified; L97.511 Non-pressure chronic ulcer of other part of right foot limited to breakdown of skin; G40.909 Epilepsy, unspecified, not intractable, without status epilepticus; F31.9 Bipolar disorder, unspecified; E10.65 Type 1 diabetes mellitus with hyperglycemia; I70.203 Unspecified atherosclerosis of native arteries of extremities, bilateral legs; Z89.421 Acquired absence of other right toe(s); Z89.411 Acquired absence of right great toe; I25.10 Atherosclerotic heart disease of native coronary artery without angina pectoris; E78.5 Hyperlipidemia, unspecified; M19.90 Unspecified osteoarthritis, unspecified site; K21.9 Gastro-esophageal reflux disease without esophagitis; E03.9 Hypothyroidism, unspecified; F41.9 Anxiety disorder, unspecified; S92.311A Displaced fracture of first metatarsal bone, right foot, initial encounter for closed fracture; X58.XXXA Exposure to other specified factors, initial encounter; I65.23 Occlusion and stenosis of bilateral carotid arteries; B95.7 Other staphylococcus as the cause of diseases classified elsewhere; R32 Unspecified urinary incontinence; D64.9 Anemia, unspecified; I25.2 Old myocardial infarction; Z71.3 Dietary counseling and surveillance; Z90.710 Acquired absence of both cervix and uterus; Z87.448 Personal history of other diseases of urinary system; Z86.718 Personal history of other venous thrombosis and embolism; Z79.82 Long term (current) use of aspirin; Z79.899 Other long term (current) drug therapy; Z86.14 Personal history of Methicillin resistant Staphylococcus aureus infection; Z87.01 Personal history of pneumonia (recurrent); Z90.49 Acquired absence of other specified parts of digestive tract; Z95.5 Presence of coronary angioplasty implant and graft; Z98.890 Other specified postprocedural states; Z98.42 Cataract extraction status, left eye; Z98.41 Cataract extraction status, right eye; Z96.1 Presence of intraocular lens; Z99.3 Dependence on wheelchair; Z87.891 Personal history of nicotine dependence; Z88.5 Allergy status to narcotic agent; Z88.8 Allergy status to other drugs, medicaments and biological substances; Z91.030 Bee allergy status; Z88.1 Allergy status to other antibiotic agents; Z83.3 Family history of diabetes mellitus; Z82.49 Family history of ischemic heart disease and other diseases of the circulatory system; Z82.5 Family history of asthma and other chronic lower respiratory diseases
CPT/HCPCS: 36415; 70450; 71046; 80048; 80053; 80164; 80202; 81001; 82009; 82140; 82330; 82550; 82565; 82947; 84484; 85025; 85610; 85652; 85730; 86140; 87040; 87077; 87086; 87186; 93005; 93880; 96361; 96365; 96366; 99285

== ENCOUNTER 2020-03-01 19:17 | Inpatient (IN) | payer OTHER ==
[2020-03-01] MEDS ORDERED: SODIUM CHLORIDE 0.9% 1,000 ML IV STA (19:24)
[2020-03-01 19:28] LABS: Glucose,Whole Blood >600 mg/dL (75-99)
--- NOTE | 2020-03-01 19:31 | ED ---
General Adult HPI - General Chief complaint: Recheck/Abnormal Lab/Rx Stated complaint: NVD Time Seen by Provider: 03/01/20 19:18 Source: patient, EMS, RN notes reviewed, old records reviewed Mode of arrival: EMS Limitations: physical limitation - History of Present Illness Initial comments: History very limited, 59-year-old presenting from assisted living or alf where she resides. History of previous CVA. Hypertension, CAD, kidney disease, diabetes with frequent episodes of DKA. History is obtained from EMS according to EMS she had several days of nausea vomiting and diarrhea. She was noted to have high sugar by EMS reading greater than 600. Patient is unable to significantly contribute to the history. She will follow simple commands and answer simple questions. - Related Data Home Medications Medication Instructions Recorded Confirmed Famotidine [Pepcid] 20 mg PO DAILY 07/19/15 03/01/20 HYDROcodone/APAP 10-325MG [[place] 1 tab PO TID PRN 10/03/16 03/01/20 10-325] DULoxetine HCL [Cymbalta] 60 mg PO DAILY 02/16/17 03/01/20 Atorvastatin [Lipitor] 20 mg PO DAILY 12/28/18 03/01/20 QUEtiapine [SEROquel] 100 mg PO HS 12/28/18 03/01/20 Aspirin [Adult Low Dose Aspirin EC] 81 mg PO DAILY 06/09/19 03/01/20 Ferrous Sulfate [Iron (65 MG 325 mg PO DAILY 06/09/19 03/01/20 Elemental)] ALPRAZolam [Xanax] 1 mg PO Q8H PRN 12/26/19 03/01/20 Albuterol Sulfate [Ventolin HFA] 2 puff INHALATION RT-Q4H PRN 12/26/19 03/01/20 Ondansetron Odt [Zofran ODT] 4 mg PO DAILY PRN 12/26/19 03/01/20 Valproic Acid [Depakene] 250 mg PO DAILY 12/26/19 03/01/20 QUEtiapine [SEROquel] 25 mg PO BID 01/10/20 03/01/20 Ascorbic Acid [Vitamin C] 500 mg PO DAILY 01/29/20 03/01/20 Insulin Glargine,Hum.rec.anlog 20 unit SQ HS 01/29/20 03/01/20 [Basaglar Kwikpen U-100] Vitamin B Complex 1 tab PO DAILY 01/29/20 03/01/20 Lacosamide [Vimpat] 50 mg PO HS 03/01/20 03/01/20 Lacosamide [Vimpat] 100 mg PO QAM 03/01/20 03/01/20 Previous Rx's Medication Instructions Recorded Divalproex [Depakote] 250 mg PO TID #90 tablet. 08/17/19 Losartan [Cozaar] 50 mg PO DAILY tab 01/18/20 Metoclopramide [Reglan] 10 mg PO AC-TID tab 01/18/20 Calcium Carb-Vit D 500Mg-200Un 1 each PO BID-W/MEALS tab 02/02/20 [Oscal 500+D] Clopidogrel [Plavix] 75 mg PO DAILY tab 02/02/20 INSULIN ASPART (NovoLOG) [NovoLOG 0 unit SQ AC-TID vial 02/02/20 (formulary)] Allergies Allergy/AdvReac Type Severity Reaction Status Date / Time Barbiturates Allergy Rash/Hives Verified 03/01/20 21:31 cephalexin monohydrate Allergy Rash/Hives Verified 03/01/20 21:31 [From Keflex] morphine Allergy Rash/Hives Verified 03/01/20 21:31 Penicillins Allergy Rash/Hives Verified 03/01/20 21:31 phenobarbital Allergy Swelling Verified 03/01/20 21:31 venom-honey bee Allergy Swelling Verified 03/01/20 21:31 [bee venom (honey bee)] amlodipine besylate AdvReac Vomiting Verified 03/01/20 21:31 [From Norvasc] Review of Systems ROS Statement: Those systems with pertinent positive or pertinent negative responses have been documented in the HPI. ROS Other: All systems not noted in ROS Statement are negative. Past Medical History Past Medical History: Asthma, Coronary Artery Disease (CAD), Chest Pain / Angina, Heart Failure, COPD, CVA/TIA, Diabetes Mellitus, Deep Vein Thrombosis (DVT), Eye Disorder, GERD/Reflux, Hyperlipidemia, Hypertension, Myocardial Infarction (HI), Neurologic Disorder, Osteoarthritis (OA), Pneumonia, Renal Disease Additional Past Medical History / Comment(s): IDDM (brittle), DKAs, neuropathy bilateral hands/feet, retinopathy bilateral eyes, cellulitis R foot, R great toe and 2nd toe infections/amputations, current wound R foot-being seen in [facility], renal failure, anemia, CVAs with L sided paralysis, headaches started after CVAs, brain lesions, DVT R axillae, low back pain, varicosities, seizure many years ago (2001), hypothyroid, constipation, bilateral tinnitis occasionally, sinus problems. Last Myocardial Infarction Date:: 2011 History of Any Multi-Drug Resistant Organisms: MRSA Date of last positivie culture/infection: 09/06/17 MDRO Source:: Right Foot Past Surgical History: Appendectomy, Section, Cholecystectomy, Heart Catheterization With Stent, Hysterectomy, Orthopedic Surgery Additional Past Surgical History / Comment(s): PCI with multiple stents, R great toe and 2nd toe amps, debridements R foot ulcer, L shoulder surgery to remove bone, bronchoscopy, EGD, colonoscopy, R arm port since removed, bilateral cataract removals/lens implants. Past Anesthesia/Blood Transfusion Reactions: No Reported Reaction Additional Past Anesthesia/Blood Transfusion Reaction / Comment(s): HX OF BLOOD TRANSFUSION- NO REACTION Date of Last Stent Placement:: July 2012 Past Psychological History: Anxiety, Bipolar, Depression Smoking Status: Never smoker Past Drug Use History: Marijuana - Past Family History Father Family Medical History: Unable to Obtain, Coronary Artery Disease (CAD), Diabetes Mellitus Mother Family Medical History: COPD General Exam Limitations: physical limitation General appearance: lethargic, in distress Head exam: Present: atraumatic, normocephalic Eye exam: Absent: PERRL (left 2 mm, right pupil 3 mm) ENT exam: Present: mucous membranes dry Neck exam: Present: normal inspection. Absent: lymphadenopathy Respiratory exam: Present: respiratory distress (Tachypnea, shallow breathing). Absent: wheezes, rales Cardiovascular Exam: Present: regular rate, normal rhythm GI/Abdominal exam: Present: soft. Absent: distended, tenderness, guarding, rebound Extremities exam: Present: normal capillary refill Neurological exam: Present: alert, oriented X3, motor sensory deficit (Baseline left sided weakness) Skin exam: Present: warm, dry, intact. Absent: cyanosis, diaphoretic Course Vital Signs 03/01/20 03/01/20 03/01/20 19:19 19:50 20:14 Temperature 90.1 F L 89.6 F L Pulse Rate 75 72 72 Respiratory 18 16 16 Rate Blood Pressure 79/51 83/34 91/54 O2 Sat by Pulse 94 L 93 L 94 L Oximetry 03/01/20 03/01/20 03/01/20 20:20 20:46 20:55 Temperature 89.1 F L 31.9 F L 89.2 F L Pulse Rate 72 78 61 Respiratory 16 16 16 Rate Blood Pressure 101/62 102/52 97/55 O2 Sat by Pulse 94 L 94 L 93 L Oximetry EKG Findings - EKG Comments: EKG Findings:: EKG: Normal sinus rhythm, possible left atrial enlargement, no ST segment elevation, rate of 75, WA interval 154, QRS duration 98, QTC [address] segment elevation Medical Decision Making - Medical Decision Making 59-year-old female with diabetes presenting in extremis, hypotensive, hypothermic, tachypneic, concern for diabetic ketoacidosis. Workup was initiated, mild leukocytosis 11.6, hemoglobin 9.6 which is improved from previous, likely a degree of hemoconcentration. She has significant metabolic abnormalities, she is in diabetic ketoacidosis with an nondetectable CO2. She has a pH is 7.05 on venous blood gas. She is in acute renal failure with a creatinine of 1.98. Her sugar is 935. She is acetone positive. Head CT shows an old right hemispheric infarct, no change, no acute findings. Chest x-ray questionable right lower lobe pneumonia. Patient given 2 L of IV normal saline started on 200 mL an hour. Case discussed with both Dr. Chen, who will admit and Dr. Kearns who will accept the patient to the ICU. Patient with severe diabetic ketoacidosis, dehydration, acute renal failure, metabolic acidosis. - Lab Data Result diagrams: 03/04/20 04:45 03/04/20 04:45 Lab Results 03/01/20 03/01/20 03/01/20 Range/Units 19:24 19:26 19:35 WBC 11.6 H (3.8-10.6) k/uL RBC 3.28 L (3.80-5.40) m/uL Hgb 9.6 L D (11.4-16.0) gm/dL Hct 35.9 (34.0-46.0) % MCV 109.3 H D (80.0-100.0) fL MCH 29.4 (25.0-35.0) pg MCHC 26.9 L (31.0-37.0) g/dL RDW 14.3 (11.5-15.5) % Plt Count 156 (150-450) k/uL Neutrophils % 88 % Lymphocytes % 8 % Monocytes % 3 % Eosinophils % 0 % Basophils % 0 % Neutrophils # 10.3 H (1.3-7.7) k/uL Lymphocytes # 0.9 L (1.0-4.8) k/uL Monocytes # 0.4 (0-1.0) k/uL Eosinophils # 0.0 (0-0.7) k/uL Basophils # 0.0 (0-0.2) k/uL Hypochromasia Marked Macrocytosis Marked A PT (9.0-12.0) sec INR (<1.2) APTT (22.0-30.0) sec VBG pH (7.31-7.41) VBG pCO2 (37-51) mmHg VBG HCO3 (24-28) mmol/L Sodium (137-145) mmol/L Potassium (3.5-5.1) mmol/L Chloride (98-107) mmol/L Carbon Dioxide (22-30) mmol/L Anion Gap mmol/L BUN (7-17) mg/dL Creatinine (0.52-1.04) mg/dL Est GFR (CKD-EPI)AfAm (>60 ml/min/1.73 sqM) Est GFR (CKD-EPI)NonAf (>60 ml/min/1.73 sqM) Glucose (74-99) mg/dL POC Glucose (mg/dL) >600 H (75-99) mg/dL POC Glu Rn Cardiovascular Icu ID Patricia Gunn Plasma Lactic Acid Conrado (0.7-2.0) mmol/L Calcium (8.4-10.2) mg/dL Magnesium (1.6-2.3) mg/dL Total Bilirubin (0.2-1.3) mg/dL AST (14-36) U/L ALT (4-34) U/L Alkaline Phosphatase (38-126) U/L Creatine Kinase (30-135) U/L Total Protein (6.3-8.2) g/dL Albumin (3.5-5.0) g/dL Urine Color Light Yellow Urine Appearance Clear (Clear) Urine pH 5.0 (5.0-8.0) Ur Specific [place] 1.016 (1.001-1.035) Urine Protein Negative (Negative) Urine Glucose (UA) 4+ H (Negative) Urine Ketones 4+ H (Negative) Urine Blood Negative (Negative) Urine Nitrite Negative (Negative) Urine Bilirubin Negative (Negative) Urine Urobilinogen <2.0 (<2.0) mg/dL Ur Leukocyte Esterase Negative (Negative) Urine RBC (0-5) /hpf Urine WBC (0-5) /hpf Ur Squamous Epith Cells (0-4) /hpf Amorphous Sediment (None) /hpf Urine Bacteria (None) /hpf Hyaline Casts (0-2) /lpf Urine Mucus (None) /hpf Serum Alcohol mg/dL Acetone, Qual (Negative) Blood Type Blood Type Recheck Bld Type Recheck Status Antibody Screen Crossmatch Spec Expiration Date 03/01/20 03/01/20 03/01/20 Range/Units 19:35 19:35 19:35 WBC (3.8-10.6) k/uL RBC (3.80-5.40) m/uL Hgb (11.4-16.0) gm/dL Hct (34.0-46.0) % MCV (80.0-100.0) fL MCH (25.0-35.0) pg MCHC (31.0-37.0) g/dL RDW (11.5-15.5) % Plt Count (150-450) k/uL Neutrophils % % Lymphocytes % % Monocytes % % Eosinophils % % Basophils % % Neutrophils # (1.3-7.7) k/uL Lymphocytes # (1.0-4.8) k/uL Monocytes # (0-1.0) k/uL Eosinophils # (0-0.7) k/uL Basophils # (0-0.2) k/uL Hypochromasia Macrocytosis PT 10.3 (9.0-12.0) sec INR 1.0 (<1.2) APTT 22.4 (22.0-30.0) sec VBG pH (7.31-7.41) VBG pCO2 (37-51) mmHg VBG HCO3 (24-28) mmol/L Sodium 139 (137-145) mmol/L Potassium 4.2 (3.5-5.1) mmol/L Chloride 101 (98-107) mmol/L Carbon Dioxide <5 L* (22-30) mmol/L Anion Gap mmol/L BUN 53 H (7-17) mg/dL Creatinine 1.98 H (0.52-1.04) mg/dL Est GFR (CKD-EPI)AfAm 31 (>60 ml/min/1.73 sqM) Est GFR (CKD-EPI)NonAf 27 (>60 ml/min/1.73 sqM) Glucose 935 H* (74-99) mg/dL POC Glucose (mg/dL) (75-99) mg/dL POC Glu Rn Cardiovascular Icu ID Plasma Lactic Acid Conardo (0.7-2.0) mmol/L Calcium 9.5 (8.4-10.2) mg/dL Magnesium 2.9 H (1.6-2.3) mg/dL Total Bilirubin 0.3 (0.2-1.3) mg/dL AST 27 (14-36) U/L ALT 24 (4-34) U/L Alkaline Phosphatase 67 (38-126) U/L Creatine Kinase 196 H (30-135) U/L Total Protein 6.6 (6.3-8.2) g/dL Albumin 3.7 (3.5-5.0) g/dL Urine Color Dark Yellow Urine Appearance Clear (Clear) Urine pH 5.5 (5.0-8.0) Ur Specific [place] 1.018 (1.001-1.035) Urine Protein Negative (Negative) Urine Glucose (UA) Negative (Negative) Urine Ketones Negative (Negative) Urine Blood Small H (Negative) Urine Nitrite Negative (Negative) Urine Bilirubin 1+ H (Negative) Urine Urobilinogen <2.0 (<2.0) mg/dL Ur Leukocyte Esterase Negative (Negative) Urine RBC 3 (0-5) /hpf Urine WBC 2 (0-5) /hpf Ur Squamous Epith Cells 1 (0-4) /hpf Amorphous Sediment Rare H (None) /hpf Urine Bacteria Rare H (None) /hpf Hyaline Casts 1 (0-2) /lpf Urine Mucus Few H (None) /hpf Serum Alcohol <10 mg/dL Acetone, Qual Positive (Negative) Blood Type Blood Type Recheck Bld Type Recheck Status Antibody Screen Crossmatch Spec Expiration Date 03/01/20 03/01/20 03/01/20 Range/Units 19:35 19:35 19:45 WBC (3.8-10.6) k/uL RBC (3.80-5.40) m/uL Hgb (11.4-16.0) gm/dL Hct (34.0-46.0) % MCV (80.0-100.0) fL MCH (25.0-35.0) pg MCHC (31.0-37.0) g/dL RDW (11.5-15.5) % Plt Count (150-450) k/uL Neutrophils % % Lymphocytes % % Monocytes % % Eosinophils % % Basophils % % Neutrophils # (1.3-7.7) k/uL Lymphocytes # (1.0-4.8) k/uL Monocytes # (0-1.0) k/uL Eosinophils # (0-0.7) k/uL Basophils # (0-0.2) k/uL Hypochromasia Macrocytosis PT (9.0-12.0) sec INR (<1.2) APTT (22.0-30.0) sec VBG pH 7.05 L* (7.31-7.41) VBG pCO2 19 L (37-51) mmHg VBG HCO3 5 L* (24-28) mmol/L Sodium (137-145) mmol/L Potassium (3.5-5.1) mmol/L Chloride (98-107) mmol/L Carbon Dioxide (22-30) mmol/L Anion Gap mmol/L BUN (7-17) mg/dL Creatinine (0.52-1.04) mg/dL Est GFR (CKD-EPI)AfAm (>60 ml/min/1.73 sqM) Est GFR (CKD-EPI)NonAf (>60 ml/min/1.73 sqM) Glucose (74-99) mg/dL POC Glucose (mg/dL) (75-99) mg/dL POC Glu Rn Cardiovascular Icu ID Plasma Lactic Acid Conrado 1.9 (0.7-2.0) mmol/L Calcium (8.4-10.2) mg/dL Magnesium (1.6-2.3) mg/dL Total Bilirubin (0.2-1.3) mg/dL AST (14-36) U/L ALT (4-34) U/L Alkaline Phosphatase (38-126) U/L Creatine Kinase (30-135) U/L Total Protein (6.3-8.2) g/dL Albumin (3.5-5.0) g/dL Urine Color Urine Appearance (Clear) Urine pH (5.0-8.0) Ur Specific [place] (1.001-1.035) Urine Protein (Negative) Urine Glucose (UA) (Negative) Urine Ketones (Negative) Urine Blood (Negative) Urine Nitrite (Negative) Urine Bilirubin (Negative) Urine Urobilinogen (<2.0) mg/dL Ur Leukocyte Esterase (Negative) Urine RBC (0-5) /hpf Urine WBC (0-5) /hpf Ur Squamous Epith Cells (0-4) /hpf Amorphous Sediment (None) /hpf Urine Bacteria (None) /hpf Hyaline Casts (0-2) /lpf Urine Mucus (None) /hpf Serum Alcohol mg/dL Acetone, Qual (Negative) Blood Type A Positive Blood Type Recheck A Pos Bld Type Recheck Status No Antibody Screen NEGATIVE Crossmatch See Detail Spec Expiration Date 03/04/2020 - 6550 Critical Care Time Critical Care Time: Yes Total Critical Care Time: 35 Disposition Clinical Impression: Metabolic acidosis, CORTES (acute kidney injury), DKA (diabetic ketoacidoses) Disposition: ADMITTED IP TO THIS [facility] Condition: Serious Is patient prescribed a controlled substance at d/c from ED?: No Decision to Admit Reason: Admit from EC Decision Date: 03/01/20 Decision Time: 20:38
[2020-03-01] MEDS ORDERED: ONDANSETRON 4 MG/2 ML VIAL IVP STA (19:49)
[2020-03-01 19:54] LABS: Basophils % (A) 0 %; Eosinophils % (A) 0 %; HCT 35.9 % (34.0-46.0); Hypochromasia Marked; Lymphocytes # (A) 0.9 k/uL (1.0-4.8); Lymphocytes % (A) 8 %; MCH 29.4 pg (25.0-35.0); MCHC 26.9 g/dL (31.0-37.0); Macrocytosis Marked; Monocytes # (A) 0.4 k/uL (0-1.0); Monocytes % (A) 3 %; Neutrophils # (A) 10.3 k/uL (1.3-7.7); Neutrophils % (A) 88 %; Platelet Count 156 k/uL (150-450); RBC 3.28 m/uL (3.80-5.40); RDW 14.3 % (11.5-15.5); WBC 11.6 k/uL (3.8-10.6)
[2020-03-01 19:57] LABS: HGB 9.6 gm/dL (11.4-16.0); MCV 109.3 fL (80.0-100.0)
[2020-03-01 19:58] LABS: VBG PH 7.05 (7.31-7.41)
[2020-03-01] MEDS ORDERED: SODIUM CHLORIDE 0.9% 1,000 ML IV ONE (20:01)
[2020-03-01 20:03] LABS: Mucus,Urine Few /hpf
[2020-03-01 20:05] LABS: ALT 24 U/L (4-34); AST 27 U/L (14-36); African American GFR (CKD) 31 (>60 ml/min/1.73 sqM); Albumin 3.7 g/dL (3.5-5.0); Alcohol <10 mg/dL; Alkaline Phosphatase 67 U/L (38-126); Blood Urea Nitrogen 53 mg/dL (7-17); Calcium 9.5 mg/dL (8.4-10.2); Chloride 101 mmol/L (98-107); Creatine Kinase 196 U/L (30-135); Magnesium 2.9 mg/dL (1.6-2.3); Non-African American GFR(CKD) 27 (>60 ml/min/1.73 sqM); Potassium 4.2 mmol/L (3.5-5.1); Sodium 139 mmol/L (137-145); Total Bilirubin 0.3 mg/dL (0.2-1.3); Total Protein 6.6 g/dL (6.3-8.2)
[2020-03-01 20:06] LABS: Partial Thromboplastin Time 22.4 sec (22.0-30.0); Prothrombin Time 10.3 sec (9.0-12.0)
[2020-03-01 20:11] LABS: Color,Urine Dark Yellow
[2020-03-01 20:12] LABS: Appearance,Urine Clear (Clear)
[2020-03-01 20:13] LABS: Carbon Dioxide <5 mmol/L (22-30); Glucose 935 mg/dL (74-99); Specific Gravity,Urine 1.018 (1.001-1.035)
[2020-03-01 20:14] LABS: Glucose,Urine (UA) Negative (Negative); PH, Urine 5.5 (5.0-8.0); Protein,Urine Negative (Negative)
[2020-03-01 20:15] LABS: Bilirubin,Urine 1+ (Negative); Blood,Urine Small (Negative); Ketones,Urine Negative (Negative)
[2020-03-01 20:16] LABS: Leukocyte Esterase,Urine Negative (Negative); Nitrite,Urine Negative (Negative); Urobilinogen,Urine <2.0 mg/dL (<2.0)
[2020-03-01 20:17] LABS: RBC,Urine 3 /hpf (0-5); Squamous Epithelial Cell,Urine 1 /hpf (0-4); WBC,Urine 2 /hpf (0-5)
[2020-03-01 20:18] LABS: Amorphous Sediment,Urine Rare /hpf; Bacteria,Urine Rare /hpf; Hyaline Casts,Urine 1 /lpf (0-2)
[2020-03-01 20:18] LABS: Appearance,Urine Clear (Clear); Bilirubin,Urine Negative (Negative); Blood,Urine Negative (Negative); Color,Urine Light Yellow; Glucose,Urine (UA) 4+ (Negative); Leukocyte Esterase,Urine Negative (Negative); Nitrite,Urine Negative (Negative); Protein,Urine Negative (Negative); Specific Gravity,Urine 1.016 (1.001-1.035); Urobilinogen,Urine <2.0 mg/dL (<2.0)
--- NOTE | 2020-03-01 20:24 | CT ---
EXAMINATION TYPE: CT brain wo con DATE OF EXAM: 03/01/2020 COMPARISON: 01/28/2020 HISTORY: Weakness CT DLP: mGycm Automated exposure control for dose reduction was used. There is cerebral atrophy. There is large area of hypodensity involving the right frontal lobe and ri ght anterior temporal lobe related to old infarct. There is no midline shift. There is no mass effect . There is no evidence of intracranial hemorrhage. The calvarium is intact. IMPRESSION: Old large right hemisphere infarct. No acute intracranial abnormality. No change compared to recent e xam.
[2020-03-01] MEDS: SODIUM CHLORIDE 0.9% 1,000 ML IV SCH (20:28)
[2020-03-01 20:35] LABS: Ketones,Urine 4+ (Negative)
--- NOTE | 2020-03-01 20:36 | XR ---
EXAMINATION TYPE: XR chest 1V portable DATE OF EXAM: 03/01/2020 COMPARISON: 01/28/2020 HISTORY: Altered mental status There is some poorly marginated nodular infiltrate right upper lobe. The other lung campuzano are clear . There is no heart failure. Heart size is normal. There are chest leads. Costophrenic angles are raiza ar. IMPRESSION: There is some new nodular infiltrate right upper lobe compared to recent exam and consist ent with pneumonia. No heart failure seen. Normal heart.
[2020-03-01] MEDS ORDERED: LEVOFLOXACIN 500MG-D5W PMX 500 MG in DEXTROSE/WATER 1 100ML.BAG IVPB STA (20:39)
[2020-03-01] MEDS: INSULIN REGULAR 100 UNIT in SODIUM CHLORIDE 0.9% 100 ML IV SCH (20:40)
[2020-03-01 21:14] LABS: Glucose,Whole Blood >600 mg/dL (75-99)
[2020-03-01 22:57] LABS: Glucose,Whole Blood >600 mg/dL (75-99)
[2020-03-02] MEDS ORDERED: LIDOCAINE 2% (PF) 20 MG/ML 5 ML VIAL ONE (00:44)
[2020-03-02] MEDS ORDERED: LIDOCAINE 2% INJ 20 MG/ML (20 ML MDV) ONE (00:46)
[2020-03-02 01:10] LABS: Glucose,Whole Blood 522 mg/dL (75-99)
[2020-03-02] MEDS: SODIUM CHLORIDE 0.9% 1,000 ML IV SCH ×2 (01:26→06:44)
[2020-03-02 02:01] LABS: Glucose,Whole Blood 490 mg/dL (75-99)
[2020-03-02 02:21] LABS: Phosphorus 2.6 mg/dL (2.5-4.5); Potassium 4.3 mmol/L (3.5-5.1)
[2020-03-02 03:04] LABS: Glucose,Whole Blood 446 mg/dL (75-99)
[2020-03-02 03:54] LABS: Glucose,Whole Blood 382 mg/dL (75-99)
[2020-03-02 05:17] LABS: Glucose,Whole Blood 347 mg/dL (75-99)
[2020-03-02 05:34] LABS: Phosphorus 2.2 mg/dL (2.5-4.5); Potassium 3.9 mmol/L (3.5-5.1)
[2020-03-02 05:50] LABS: Basophils % (A) 0 %; Eosinophils % (A) 0 %; HCT 28.8 % (34.0-46.0); HGB 9.1 gm/dL (11.4-16.0); Hypochromasia Slight; Lymphocytes # (A) 0.5 k/uL (1.0-4.8); Lymphocytes % (A) 18 %; MCH 29.6 pg (25.0-35.0); MCHC 31.5 g/dL (31.0-37.0); Monocytes # (A) 0.3 k/uL (0-1.0); Monocytes % (A) 9 %; Neutrophils % (A) 72 %; Platelet Count 137 k/uL (150-450); RBC 3.07 m/uL (3.80-5.40); RDW 14.8 % (11.5-15.5); WBC 2.8 k/uL (3.8-10.6)
[2020-03-02 06:02] LABS: MCV 93.8 fL (80.0-100.0)
[2020-03-02 06:28] LABS: Glucose,Whole Blood 287 mg/dL (75-99)
[2020-03-02] MEDS: D5-0.45% NACL WITH KCL 20MEQ/L 1,000 ML IV SCH ×3 (06:43→20:00)
[2020-03-02] MEDS ORDERED: Potassium Replacement Protocol 1 EACH MISC MISCELLANE PRN (06:44)
[2020-03-02 07:22] LABS: Glucose,Whole Blood 276 mg/dL (75-99)
--- NOTE | 2020-03-02 07:42 | XR ---
EXAMINATION TYPE: XR chest 1V portable DATE OF EXAM: 03/02/2020 COMPARISON: Prior chest x-ray 03/01/2020 HISTORY: Respiratory distress TECHNIQUE: Single frontal view of the chest is obtained. FINDINGS: There is been progression of airspace disease within the right hemithorax, possibly left l ower lobe. No evident pneumothorax or pleural effusion. No other significant interval change. IMPRESSION: Correlate for pneumonia, edema not excluded.
[2020-03-02 08:27] LABS: Glucose,Whole Blood 211 mg/dL (75-99)
[2020-03-02] MEDS ORDERED: INSULIN ASPART (NovoLOG) 100 UNIT/ML VIAL SQ ONE (09:13)
[2020-03-02 09:22] LABS: Glucose,Whole Blood 181 mg/dL (75-99)
[2020-03-02] MEDS: ONDANSETRON 4 MG/2 ML VIAL IVP PRN ×2 (09:26→17:41)
[2020-03-02] MEDS ORDERED: IPRATROPIUM-ALBUTEROL 3 ML NEB INHALATION PRN (09:58)
[2020-03-02] MEDS ORDERED: LEVOFLOXACIN 500MG-D5W PMX 500 MG in DEXTROSE/WATER 1 100ML.BAG IVPB ONE (10:00)
[2020-03-02] MEDS: INSULIN ASPART (NovoLOG) 100 UNIT/ML VIAL SQ SCH ×4 (10:30→20:22)
[2020-03-02 10:47] LABS: Glucose,Whole Blood 188 mg/dL (75-99)
--- NOTE | 2020-03-02 11:35 | P.HPIM ---
History of Present Illness H&P Date: 03/02/20 Melva Jackson, is a 59-year-old female who presented to [facility] emergency room due to nausea vomiting and diarrhea, and elevated glucose level, she was evaluated in the emergency room, her temperature on presentation was 90.1, pulse 75 respiration 18 blood pressure 79/51 pulse ox 94% on room air, her white blood count was elevated at 11.6 hemoglobin 9.6 platelet count 156, venous blood gas pH was 7.05 glucose level was 744 and serum acetone was positive, patient was admitted to ICU she was started on IV fluid and on IV insulin drip. Patient has a known history of insulin-dependent diabetes mellitus type 1 maintained on insulin he had previous episodes of DKA, she also had a history of stroke, history of hypertension, hyperlipidemia, coronary artery disease with myocardial infarction, peripheral vascular disease with multiple toe amputation, history of COPD. On review of systems patient is alert responsive in no apparent distress she was seen in ICU she is still complaining of nausea and occasional episodes of vomiting there is no fever or chills no headache or dizziness no chest pain no shortness of breath no cough she is having some abdominal discomfort no no burning with urination no frequency or urgency no hematuria. Past Medical History Past Medical History: Asthma, Coronary Artery Disease (CAD), Chest Pain / She na, Heart Failure, COPD, CVA/TIA, Diabetes Mellitus, Deep Vein Thrombosis (DVT), Eye Disorder, GERD/Reflux, Hyperlipidemia, Hypertension, Myocardial Infarction (RI), Neurologic Disorder, Osteoarthritis (OA), Pneumonia, Renal Disease Additional Past Medical History / Comment(s): IDDM (brittle), DKAs, neuropathy bilateral hands/feet, retinopathy bilateral eyes, cellulitis R foot, R great toe and 2nd toe infections/amputations, current wound R foot-being seen in [facility], renal failure, anemia, CVAs with L sided paralysis, headaches started after CVAs, brain lesions, DVT R axillae, low back pain, varicosities, seizure many years ago (2001), hypothyroid, constipation, bilateral tinnitis occasionally, sinus problems. Last Myocardial Infarction Date:: 2011 History of Any Multi-Drug Resistant Organisms: MRSA Date of last positivie culture/infection: 09/06/17 MDRO Source:: Right Foot Past Surgical History: Appendectomy, Section, Cholecystectomy, Heart Catheterization With Stent, Hysterectomy, Orthopedic Surgery Additional Past Surgical History / Comment(s): PCI with multiple stents, R great toe and 2nd toe amps, debridements R foot ulcer, L shoulder surgery to remove bone, bronchoscopy, EGD, colonoscopy, R arm port since removed, bilateral cataract removals/lens implants. Past Anesthesia/Blood Transfusion Reactions: No Reported Reaction Additional Past Anesthesia/Blood Transfusion Reaction / Comment(s): HX OF BLOOD TRANSFUSION- NO REACTION Date of Last Stent Placement:: July 2012 Past Psychological History: Anxiety, Bipolar, Depression Smoking Status: Never smoker Past Alcohol Use History: None Reported Past Drug Use History: Marijuana - Past Family History Father Family Medical History: Unable to Obtain, Coronary Artery Disease (CAD), Diabetes Mellitus Mother Family Medical History: COPD Medications and Allergies Home Medications Medication Instructions Recorded Confirmed Type Famotidine [Pepcid] 20 mg PO DAILY 07/19/15 03/01/20 History HYDROcodone/APAP 10-325MG [[place] 1 tab PO TID PRN 10/03/16 03/01/20 History 10-325] DULoxetine HCL [Cymbalta] 60 mg PO DAILY 02/16/17 03/01/20 History Atorvastatin [Lipitor] 20 mg PO DAILY 12/28/18 03/01/20 History QUEtiapine [SEROquel] 100 mg PO HS 12/28/18 03/01/20 History Aspirin [Adult Low Dose Aspirin EC] 81 mg PO DAILY 06/09/19 03/01/20 History Ferrous Sulfate [Iron (65 MG 325 mg PO DAILY 06/09/19 03/01/20 History Elemental)] Divalproex [Depakote] 250 mg PO TID #90 tablet. 08/17/19 03/01/20 Rx ALPRAZolam [Xanax] 1 mg PO Q8H PRN 12/26/19 03/01/20 History Albuterol Sulfate [Ventolin HFA] 2 puff INHALATION RT-Q4H PRN 12/26/19 03/01/20 History Ondansetron Odt [Zofran ODT] 4 mg PO DAILY PRN 12/26/19 03/01/20 History Valproic Acid [Depakene] 250 mg PO DAILY 12/26/19 03/01/20 History QUEtiapine [SEROquel] 25 mg PO BID 01/10/20 03/01/20 History Losartan [Cozaar] 50 mg PO DAILY tab 01/18/20 03/01/20 Rx Metoclopramide [Reglan] 10 mg PO AC-TID tab 01/18/20 03/01/20 Rx Ascorbic Acid [Vitamin C] 500 mg PO DAILY 01/29/20 03/01/20 History Insulin Glargine,Hum.rec.anlog 20 unit SQ HS 01/29/20 03/01/20 History [Basaglar Kwikpen U-100] Vitamin B Complex 1 tab PO DAILY 01/29/20 03/01/20 History Calcium Carb-Vit D 500Mg-200Un 1 each PO BID-W/MEALS tab 02/02/20 03/01/20 Rx [Oscal 500+D] Clopidogrel [Plavix] 75 mg PO DAILY tab 02/02/20 03/01/20 Rx INSULIN ASPART (NovoLOG) [NovoLOG 0 unit SQ AC-TID vial 02/02/20 03/01/20 Rx (formulary)] Lacosamide [Vimpat] 50 mg PO HS 03/01/20 03/01/20 History Lacosamide [Vimpat] 100 mg PO QAM 03/01/20 03/01/20 History Allergies Allergy/AdvReac Type Severity Reaction Status Date / Time Barbiturates Allergy Rash/Hives Verified 03/01/20 21:31 cephalexin monohydrate Allergy Rash/Hives Verified 03/01/20 21:31 [From Keflex] morphine Allergy Rash/Hives Verified 03/01/20 21:31 Penicillins Allergy Rash/Hives Verified 03/01/20 21:31 phenobarbital Allergy Swelling Verified 03/01/20 21:31 venom-honey bee Allergy Swelling Verified 03/01/20 21:31 [bee venom (honey bee)] amlodipine besylate AdvReac Vomiting Verified 03/01/20 21:31 [From Norvas] Physical Exam Vitals: Vital Signs Temp Pulse Resp BP Pulse Ox 03/02/20 09:00 101 H 18 92 L 03/02/20 08:00 99.5 F 100 14 92 L 03/02/20 07:00 97 24 96 03/02/20 06:00 96 24 96 03/02/20 05:00 104 H 24 94 L 03/02/20 04:00 98.6 F 110 H 22 94 L 03/02/20 03:00 102 H 22 94 L 03/02/20 02:00 100 22 94 L 03/02/20 01:00 98.6 F 98 22 96/50 94 L 03/02/20 00:00 98.2 F 94 18 96/50 94 L 03/01/20 23:00 95 F L 85 22 96/50 96 03/01/20 22:00 90.9 F L 76 16 92/54 92 L 03/01/20 20:55 89.2 F L 61 16 97/55 93 L 03/01/20 20:46 31.9 F L 78 16 102/52 94 L 03/01/20 20:20 89.1 F L 72 16 101/62 94 L 03/01/20 20:14 72 16 91/54 94 L 03/01/20 19:50 89.6 F L 72 16 83/34 93 L 03/01/20 19:19 90.1 F L 75 18 79/51 94 L Intake and Output 03/01/20 03/02/20 03/02/20 22:59 06:59 14:59 Intake Total 200 1600 150 Output Total 200 450 60 Balance 0 1150 90 Intake: Intake, IV Titration 200 1600 150 Amount D5-0.45% NaCl with KCl 150 20Meq/l 1,000 ml @ 150 mls/hr IV .Q6H40M HUMAIRA Rx# :[id number] Sodium Chloride 0.9% 1, 200 1600 000 ml @ 200 mls/hr IV . Q5H HUMAIRA Rx#:[id number] Output: Urine 200 450 60 Other: Voiding Method Indwelling Catheter Weight 47.627 kg 50.8 kg ABP, PAP, CO, CI - Last 8 Hours Arterial Blood Pressure 145/53 Arterial Blood Pressure 101/46 Arterial Blood Pressure 101/47 Arterial Blood Pressure 128/42 Arterial Blood Pressure 125/36 Arterial Blood Pressure 106/36 In general patient is alert responsive in no apparent distress HEENT head normocephalic and atraumatic Neck is supple no JVD no goiter no lymphadenopathy Chest exam reveals a few scattered rhonchi no wheezing Cardiac exam reveals regular heart sounds S1 and S2 with mild tachycardia no gallops no murmurs Abdomen is soft nontender no rigidity or rebound no palpable masses with hyperactive bowel sounds Extremity exam reveals no edema no cyanosis or clubbing Neurological examination reveals no gross new focal deficit Results CBC & Chem 7: 03/02/20 04:30 03/02/20 04:30 Labs: Abnormal Lab Results - Last 24 Hours (Table) 03/01/20 03/01/20 03/01/20 Range/Units 19:24 19:26 19:35 WBC 11.6 H (3.8-10.6) k/uL RBC 3.28 L (3.80-5.40) m/uL Hgb 9.6 L D (11.4-16.0) gm/dL Hct (34.0-46.0) % MCV 109.3 H D (80.0-100.0) fL MCHC 26.9 L (31.0-37.0) g/dL Plt Count (150-450) k/uL Neutrophils # 10.3 H (1.3-7.7) k/uL Lymphocytes # 0.9 L (1.0-4.8) k/uL Macrocytosis Marked A VBG pH (7.31-7.41) VBG pCO2 (37-51) mmHg VBG HCO3 (24-28) mmol/L Chloride (98-107) mmol/L Carbon Dioxide (22-30) mmol/L BUN (7-17) mg/dL Creatinine (0.52-1.04) mg/dL Glucose (74-99) mg/dL POC Glucose (mg/dL) >600 H (75-99) mg/dL Phosphorus (2.5-4.5) mg/dL Magnesium (1.6-2.3) mg/dL Creatine Kinase (30-135) U/L Urine Glucose (UA) 4+ H (Negative) Urine Ketones 4+ H (Negative) Urine Blood (Negative) Urine Bilirubin (Negative) Amorphous Sediment (None) /hpf Urine Bacteria (None) /hpf Urine Mucus (None) /hpf 03/01/20 03/01/20 03/01/20 Range/Units 19:35 19:35 19:35 WBC (3.8-10.6) k/uL RBC (3.80-5.40) m/uL Hgb (11.4-16.0) gm/dL Hct (34.0-46.0) % MCV (80.0-100.0) fL MCHC (31.0-37.0) g/dL Plt Count (150-450) k/uL Neutrophils # (1.3-7.7) k/uL Lymphocytes # (1.0-4.8) k/uL Macrocytosis VBG pH 7.05 L* (7.31-7.41) VBG pCO2 19 L (37-51) mmHg VBG HCO3 5 L* (24-28) mmol/L Chloride (98-107) mmol/L Carbon Dioxide <5 L* (22-30) mmol/L BUN 53 H (7-17) mg/dL Creatinine 1.98 H (0.52-1.04) mg/dL Glucose 935 H* (74-99) mg/dL POC Glucose (mg/dL) (75-99) mg/dL Phosphorus (2.5-4.5) mg/dL Magnesium 2.9 H (1.6-2.3) mg/dL Creatine Kinase 196 H (30-135) U/L Urine Glucose (UA) (Negative) Urine Ketones (Negative) Urine Blood Small H (Negative) Urine Bilirubin 1+ H (Negative) Amorphous Sediment Rare H (None) /hpf Urine Bacteria Rare H (None) /hpf Urine Mucus Few H (None) /hpf 03/01/20 03/01/20 03/01/20 Range/Units 21:13 21:47 22:56 WBC (3.8-10.6) k/uL RBC (3.80-5.40) m/uL Hgb (11.4-16.0) gm/dL Hct (34.0-46.0) % MCV (80.0-100.0) fL MCHC (31.0-37.0) g/dL Plt Count (150-450) k/uL Neutrophils # (1.3-7.7) k/uL Lymphocytes # (1.0-4.8) k/uL Macrocytosis VBG pH (7.31-7.41) VBG pCO2 (37-51) mmHg VBG HCO3 (24-28) mmol/L Chloride (98-107) mmol/L Carbon Dioxide (22-30) mmol/L BUN (7-17) mg/dL Creatinine (0.52-1.04) mg/dL Glucose 744 H* (74-99) mg/dL POC Glucose (mg/dL) >600 H >600 H (75-99) mg/dL Phosphorus (2.5-4.5) mg/dL Magnesium (1.6-2.3) mg/dL Creatine Kinase (30-135) U/L Urine Glucose (UA) (Negative) Urine Ketones (Negative) Urine Blood (Negative) Urine Bilirubin (Negative) Amorphous Sediment (None) /hpf Urine Bacteria (None) /hpf Urine Mucus (None) /hpf 03/02/20 03/02/20 03/02/20 Range/Units 01:08 01:10 02:00 WBC (3.8-10.6) k/uL RBC (3.80-5.40) m/uL Hgb (11.4-16.0) gm/dL Hct (34.0-46.0) % MCV (80.0-100.0) fL MCHC (31.0-37.0) g/dL Plt Count (150-450) k/uL Neutrophils # (1.3-7.7) k/uL Lymphocytes # (1.0-4.8) k/uL Macrocytosis VBG pH (7.31-7.41) VBG pCO2 (37-51) mmHg VBG HCO3 (24-28) mmol/L Chloride 112 H (98-107) mmol/L Carbon Dioxide 15 L (22-30) mmol/L BUN 56 H (7-17) mg/dL Creatinine 1.57 H (0.52-1.04) mg/dL Glucose 555 H* (74-99) mg/dL POC Glucose (mg/dL) 522 H 490 H (75-99) mg/dL Phosphorus (2.5-4.5) mg/dL Magnesium (1.6-2.3) mg/dL Creatine Kinase (30-135) U/L Urine Glucose (UA) (Negative) Urine Ketones (Negative) Urine Blood (Negative) Urine Bilirubin (Negative) Amorphous Sediment (None) /hpf Urine Bacteria (None) /hpf Urine Mucus (None) /hpf 03/02/20 03/02/20 03/02/20 Range/Units 03:02 03:52 04:30 WBC (3.8-10.6) k/uL RBC (3.80-5.40) m/uL Hgb (11.4-16.0) gm/dL Hct (34.0-46.0) % MCV (80.0-100.0) fL MCHC (31.0-37.0) g/dL Plt Count (150-450) k/uL Neutrophils # (1.3-7.7) k/uL Lymphocytes # (1.0-4.8) k/uL Macrocytosis VBG pH (7.31-7.41) VBG pCO2 (37-51) mmHg VBG HCO3 (24-28) mmol/L Chloride 115 H (98-107) mmol/L Carbon Dioxide (22-30) mmol/L BUN 57 H (7-17) mg/dL Creatinine 1.51 H (0.52-1.04) mg/dL Glucose 357 H (74-99) mg/dL POC Glucose (mg/dL) 446 H 382 H (75-99) mg/dL Phosphorus 2.2 L (2.5-4.5) mg/dL Magnesium (1.6-2.3) mg/dL Creatine Kinase (30-135) U/L Urine Glucose (UA) (Negative) Urine Ketones (Negative) Urine Blood (Negative) Urine Bilirubin (Negative) Amorphous Sediment (None) /hpf Urine Bacteria (None) /hpf Urine Mucus (None) /hpf 03/02/20 03/02/20 03/02/20 Range/Units 04:30 05:05 06:15 WBC 2.8 L (3.8-10.6) k/uL RBC 3.07 L (3.80-5.40) m/uL Hgb 9.1 L (11.4-16.0) gm/dL Hct 28.8 L (34.0-46.0) % MCV (80.0-100.0) fL MCHC (31.0-37.0) g/dL Plt Count 137 L (150-450) k/uL Neutrophils # (1.3-7.7) k/uL Lymphocytes # 0.5 L (1.0-4.8) k/uL Macrocytosis VBG pH (7.31-7.41) VBG pCO2 (37-51) mmHg VBG HCO3 (24-28) mmol/L Chloride (98-107) mmol/L Carbon Dioxide (22-30) mmol/L BUN (7-17) mg/dL Creatinine (0.52-1.04) mg/dL Glucose (74-99) mg/dL POC Glucose (mg/dL) 347 H 287 H (75-99) mg/dL Phosphorus (2.5-4.5) mg/dL Magnesium (1.6-2.3) mg/dL Creatine Kinase (30-135) U/L Urine Glucose (UA) (Negative) Urine Ketones (Negative) Urine Blood (Negative) Urine Bilirubin (Negative) Amorphous Sediment (None) /hpf Urine Bacteria (None) /hpf Urine Mucus (None) /hpf 03/02/20 03/02/20 03/02/20 Range/Units 07:10 08:16 09:21 WBC (3.8-10.6) k/uL RBC (3.80-5.40) m/uL Hgb (11.4-16.0) gm/dL Hct (34.0-46.0) % MCV (80.0-100.0) fL MCHC (31.0-37.0) g/dL Plt Count (150-450) k/uL Neutrophils # (1.3-7.7) k/uL Lymphocytes # (1.0-4.8) k/uL Macrocytosis VBG pH (7.31-7.41) VBG pCO2 (37-51) mmHg VBG HCO3 (24-28) mmol/L Chloride (98-107) mmol/L Carbon Dioxide (22-30) mmol/L BUN (7-17) mg/dL Creatinine (0.52-1.04) mg/dL Glucose (74-99) mg/dL POC Glucose (mg/dL) 276 H 211 H 181 H (75-99) mg/dL Phosphorus (2.5-4.5) mg/dL Magnesium (1.6-2.3) mg/dL Creatine Kinase (30-135) U/L Urine Glucose (UA) (Negative) Urine Ketones (Negative) Urine Blood (Negative) Urine Bilirubin (Negative) Amorphous Sediment (None) /hpf Urine Bacteria (None) /hpf Urine Mucus (None) /hpf 03/02/20 Range/Units 10:46 WBC (3.8-10.6) k/uL RBC (3.80-5.40) m/uL Hgb (11.4-16.0) gm/dL Hct (34.0-46.0) % MCV (80.0-100.0) fL MCHC (31.0-37.0) g/dL Plt Count (150-450) k/uL Neutrophils # (1.3-7.7) k/uL Lymphocytes # (1.0-4.8) k/uL Macrocytosis VBG pH (7.31-7.41) VBG pCO2 (37-51) mmHg VBG HCO3 (24-28) mmol/L Chloride (98-107) mmol/L Carbon Dioxide (22-30) mmol/L BUN (7-17) mg/dL Creatinine (0.52-1.04) mg/dL Glucose (74-99) mg/dL POC Glucose (mg/dL) 188 H (75-99) mg/dL Phosphorus (2.5-4.5) mg/dL Magnesium (1.6-2.3) mg/dL Creatine Kinase (30-135) U/L Urine Glucose (UA) (Negative) Urine Ketones (Negative) Urine Blood (Negative) Urine Bilirubin (Negative) Amorphous Sediment (None) /hpf Urine Bacteria (None) /hpf Urine Mucus (None) /hpf Assessment and Plan Plan: 1. Acute diabetic ketoacidosis with severe hyperglycemia and positive serum acetone patient is improving with IV fluid and IV insulin drip 2. Underlying history of diabetes mellitus type 1 maintained on insulin, her primary care provider is No Bowden, she was contacted and she stated that she was recently hospitalized at [facility], a different relative was caring for patient and apparently glucose level has been extremely elevated for several days. 3. Underlying history of hypertension 4. Underlying history of hyperlipidemia 5. Underlying history of seizure disorder, will place patient on IV Keppra until she is able to take her oral medications 6. Underlying history of COPD stable no evidence of exacerbation 7. Underlying history of coronary artery disease stable at this time patient denies any chest pain 8. Underlying history of peripheral vascular disease with previous history of multiple toe amputations 9. Previous history of stroke. At this time patient is admitted to intensive care unit continue with IV fluids and insulin management Home medication reviewed, will be switched to IV medications when possible due to continuous nausea and vomiting at this time Pulmonary critical care are following
[2020-03-02] MEDS ORDERED: VALPROATE SODIUM 250 MG in SODIUM CHLORIDE 0.9% 50 ML IVPB ONE (11:55)
[2020-03-02 11:56] LABS: Glucose,Whole Blood 194 mg/dL (75-99)
--- NOTE | 2020-03-02 12:29 | CONS ---
CONSULTATION PULMONARY/CRITICAL CARE CONSULTATION: DATE OF SERVICE: This is a 59-year-old female who presents from an assisted-living home where she resides. She apparently came in with complaints of nausea, vomiting, and diarrhea with profound dehydration and on laboratory analysis was discovered to have severe diabetic ketoacidosis. The patient does have a history of CVA, hypertension, CAD, chronic kidney disease, and diabetes. She apparently also has a history of frequent episodes of DKA. The patient apparently has had several days of nausea, vomiting, and diarrhea. Blood sugars by EMS were greater than 600. The patient was admitted with a diagnosis of diabetic ketoacidosis. I was called by the ER physician last night. Currently, the patient is getting O2 at 6 L by nasal cannula. She is on D5 0.45 with 20 of potassium at 150 mL an hour and insulin drip of 4.81 units an hour. The patient was admitted on March 01. Currently her most recent glucose is 211, most recent bicarbonate concentration is 22 and her anion gap is normal at 6. I did tell the nurse that the patient could get some regular subcu insulin 10 units now and then in 45 minutes the drip could be discontinued and the patient could be placed on NovoLog sliding scale, either q.4 hours or q.6 hours. Currently, the patient is on Levaquin IV for right- sided pneumonia. HOME MEDICATIONS: Include Pepcid, [place] Cymbalta, Lipitor, Seroquel, aspirin, and iron. The patient also has a history of being on Xanax, Ventolin, Zofran, Depakene, Protonix, Seroquel, vitamin C, insulin, vitamin B complex, Depakote, Cozaar, Reglan, Plavix, Vimpat, and Bactrim. ALLERGIES: Allergies included BARBITURATES, KEFLEX, MORPHINE, PENICILLIN, PHENOBARBITAL, HONEY BEE VENOM, AND AMLODIPINE. PAST MEDICAL HISTORY: Reviewed. She has a history of asthma, CAD, angina, heart failure, COPD, CVA, diabetes, deep venous thrombosis, GERD, hyperlipidemia, hypertension, myocardial infarction, osteoarthritis, and chronic kidney disease. In addition, the patient has a history of diabetic neuropathy, retinopathy, and has had episodes of cellulitis of the right foot and right great toe. Other medical issues include lower extremity varicosities, and chronic low back pain, as well as hypothyroidism, chronic constipation, and chronic sinus disease. SURGICAL HISTORY: Includes appendectomy, , cholecystectomy, heart catheterization with stent, hysterectomy, toe amputation, right foot debridement, left shoulder surgery, bronchoscopy, EGD, colonoscopy, bilateral cataract surgery. SOCIAL HISTORY: Negative for tobacco. She does use marijuana. She does drink alcohol occasionally. FAMILY HISTORY: Apparently positive for a father with CAD and diabetes and a mother with COPD. REVIEW OF SYSTEMS: CONSTITUTIONAL: Weakness. NEUROLOGIC: Negative. HEENT: Negative. CARDIOVASCULAR: Negative. PULMONARY: Negative. GI: Nausea, vomiting, diarrhea. : Negative. RHEUMATOLOGIC: Negative. IMMUNOLOGIC: Negative. ENDOCRINOLOGIC: Negative. DERMATOLOGIC: Negative. PHYSICAL EXAMINATION: VITAL SIGNS: Current vital signs are reviewed. Temperature 99.5, heart rate 100, respiratory rate 18, blood pressure 101/46, 6 L saturation 92%. Appears in no acute distress. HEENT: Examination is grossly unremarkable. Nasal O2 noted. Mucous membranes are dry. NECK: Supple. Full range of motion. No adenopathy. Neck veins are flat. CARDIOVASCULAR: Examination reveals regular rhythm and rate. Heart rate 101. S1, S2 normal. Heart sounds are distant. LUNGS: Reveal mostly clear breath sounds. A few scattered rhonchi on the right. No wheezes or crackles. ABDOMEN: Soft. Bowel sounds are heard. EXTREMITIES: Intact. No edema. SKIN: Without rash. NEUROLOGIC: Examination is difficult to assess but appears to be relatively nonfocal. She does move all 4 extremities. LABORATORY DATA: Reviewed. Currently, white count 2.8, hemoglobin 9.1, hematocrit 28.8, platelet count 137,000. PT/INR and PTT normal. Sodium 143, potassium 3.9, chloride 115. CO2 22. Anion gap is 6. BUN and creatinine were 57 and 1.51. Most recent glucose was 211. Phosphorus is 2.2, magnesium 2.9, alkaline phosphatase 196. Urine shows small amount of blood, 1+ bilirubin, and rare bacteria and sediment. Acetone qualitatively was positive. Serum alcohol was negative. Microbiology is currently pending or negative. IMAGING: Brain CT was done. It was negative for anything acute. There was an old large right hemisphere infarct. Nothing new or acute noted. A chest x-ray shows right-sided diffuse infiltrates, consistent with pneumonia. There also may be some atelectasis and/or infiltrate in the left lower lobe. CURRENT MEDICATIONS: Reviewed. She is on D5 0.45 with 20 of KCl at 150 an hour, NovoLog sliding scale q.4 hours, she was on an insulin drip but that has been discontinued, Levaquin 500 mg IV daily, Zofran, potassium per protocol, and saline. ASSESSMENT: 1. Diabetic ketoacidosis, currently on insulin protocol, with significant improvement in the patient's blood sugar, anion gap, and bicarbonate concentration. 2. Right-sided pneumonia, rule out aspiration. 3. History of long-standing diabetes, with multiple episodes of diabetic ketoacidosis. 4. Diabetic neuropathy. 5. History of chronic obstructive pulmonary disease/asthma. 6. History of coronary artery disease. 7. Angina pectoris. 8. History of congestive heart failure. 9. Previous history of cerebrovascular accident. 10.Deep venous thrombosis. 11.Gastroesophageal reflux disease. 12.Hyperlipidemia. 13.Hypertension. 14.Prior history of myocardial infarction. 15.Multiple other medical problems and comorbidities as listed. PLAN: Currently, the patient is doing much better. We are going to give her some regular insulin subcu, and we are going to, in 45 or so minutes, stop the insulin drip. The patient could be started on NovoLog sliding scale every 4 hours. We will want to continue Levaquin 500 mg IV daily. I have asked some Zofran for nausea and vomiting. Additional recommendations and suggestions are forthcoming. I did ask the nurse to call the primary about reordering some of her home medications that are essential. We will continue to follow. Prognosis is guarded. MMODL / IJN: [id number] /
[2020-03-02] MEDS: IPRATROPIUM-ALBUTEROL 3 ML NEB INHALATION SCH ×3 (13:30→20:29)
[2020-03-02] MEDS: LACOSAMIDE IV 50 MG in SODIUM CHLORIDE 0.9% 50 ML IVPB SCH ×2 (14:34→21:05)
[2020-03-02] MEDS: METOCLOPRAMIDE 10 MG TAB PO SCH ×2 (14:40→19:31)
[2020-03-02 16:09] LABS: Glucose,Whole Blood 128 mg/dL (75-99)
[2020-03-02] MEDS: INSULIN REGULAR 100 UNIT in SODIUM CHLORIDE 0.9% 100 ML IV SCH (19:31)
[2020-03-02 20:06] LABS: Glucose,Whole Blood 368 mg/dL (75-99)
[2020-03-02] MEDS: QUEtiapine 25 MG TAB PO SCH (20:08)
[2020-03-02 20:15] LABS: Glucose,Whole Blood 366 mg/dL (75-99)
[2020-03-02] MEDS: QUEtiapine 100 MG TAB PO SCH (20:34)
[2020-03-02] MEDS ORDERED: INSULIN DETEMIR (LEVEMIR) 100 UNIT/ML SYR SQ SCH (21:00)
[2020-03-02] MEDS: LORazepam 2 MG/ML INJ IV PRN (21:04)
[2020-03-03 00:11] LABS: Glucose,Whole Blood 225 mg/dL (75-99)
[2020-03-03] MEDS: INSULIN ASPART (NovoLOG) 100 UNIT/ML VIAL SQ SCH ×6 (00:15→22:38)
[2020-03-03] MEDS: LORazepam 2 MG/ML INJ IV PRN (00:16)
[2020-03-03] MEDS ORDERED: VANCOMYCIN IV PER PHARMACY 1 EACH MISC MISCELLANE PRN (02:12)
[2020-03-03] MEDS: D5-0.45% NACL WITH KCL 20MEQ/L 1,000 ML IV SCH ×3 (02:34→22:43)
[2020-03-03] MEDS ORDERED: VANCOMYCIN 1,000 MG in SODIUM CHLORIDE 0.9% 250 ML IVPB ONE (03:00)
[2020-03-03] MEDS ORDERED: DEXTROSE 50% SYRINGE 50 ML IVP STA ×4 (04:01→10:14)
[2020-03-03 04:03] LABS: Glucose,Whole Blood 22 mg/dL (75-99)
[2020-03-03 04:03] LABS: Glucose,Whole Blood 20 mg/dL (75-99)
[2020-03-03 04:15] LABS: Glucose,Whole Blood 205 mg/dL (75-99)
[2020-03-03 04:32] LABS: Potassium 3.5 mmol/L (3.5-5.1)
[2020-03-03 04:34] LABS: HCT 24.1 % (34.0-46.0); Hypochromasia Slight; MCH 29.2 pg (25.0-35.0); MCHC 31.1 g/dL (31.0-37.0); MCV 93.8 fL (80.0-100.0); RBC 2.57 m/uL (3.80-5.40); RDW 15.3 % (11.5-15.5); WBC 8.6 k/uL (3.8-10.6)
[2020-03-03 04:37] LABS: HGB 7.5 gm/dL (11.4-16.0)
[2020-03-03 04:48] LABS: Glucose,Whole Blood 106 mg/dL (75-99)
[2020-03-03 05:23] LABS: Glucose,Whole Blood 61 mg/dL (75-99)
[2020-03-03 05:34] LABS: Anisocytosis (M) Present; Band Neutrophils % 35 %; Lymphocytes # (M) 3.18 k/uL (1.0-4.8); Metamyelocytes # (M) 0.17 k/uL (0); Metamyelocytes % 2 %; Monocytes # (M) 0.17 k/uL (0-1.0); Neutrophils % (M) 26 %; Nucleated Red Blood Cells 0 /100 WBC (0-0); Total Cells Counted 200
[2020-03-03 05:36] LABS: Toxic Vacuolation Present
[2020-03-03 05:37] LABS: Platelet Count 97 k/uL (150-450)
[2020-03-03 05:41] LABS: Glucose,Whole Blood 279 mg/dL (75-99)
[2020-03-03] MEDS: POTASSIUM CHLORIDE 10 MEQ in WATER FOR INJECTION 1 100ML.BAG IVPB SCH ×5 (05:55→18:07)
[2020-03-03 06:12] LABS: Glucose,Whole Blood 129 mg/dL (75-99)
[2020-03-03 06:31] LABS: Glucose,Whole Blood 95 mg/dL (75-99)
[2020-03-03] MEDS: DEXTROSE 5%-0.9% NACL 1,000 ML IV SCH (06:32)
[2020-03-03] MEDS: METOCLOPRAMIDE 10 MG TAB PO SCH ×3 (06:57→18:07)
[2020-03-03 07:02] LABS: Glucose,Whole Blood 65 mg/dL (75-99)
[2020-03-03] MEDS: IPRATROPIUM-ALBUTEROL 3 ML NEB INHALATION SCH ×4 (07:17→21:00)
[2020-03-03 07:18] LABS: Glucose,Whole Blood 275 mg/dL (75-99)
--- NOTE | 2020-03-03 07:59 | XR ---
EXAMINATION TYPE: XR chest 1V portable DATE OF EXAM: 03/03/2020 COMPARISON: 03/02/2020 INDICATION: Short of breath, pneumonia TECHNIQUE: Single frontal view of the chest is obtained. FINDINGS: The heart size is normal. The pulmonary vasculature is normal. There is diffuse infiltrate throughout the right upper lobe. Correlate for pneumonia. Right lower lob e is improving. IMPRESSION: 1. Able Infiltrates within the right upper lobe and improving within the right lower lobe
[2020-03-03 08:08] LABS: Glucose,Whole Blood 127 mg/dL (75-99)
[2020-03-03 09:09] LABS: Glucose,Whole Blood 97 mg/dL (75-99)
[2020-03-03] MEDS: QUEtiapine 25 MG TAB PO SCH ×2 (09:10→22:40)
[2020-03-03] MEDS: ASPIRIN 81 MG PO SCH (09:10)
[2020-03-03 10:14] LABS: Glucose,Whole Blood 64 mg/dL (75-99)
[2020-03-03 10:41] LABS: Glucose,Whole Blood 206 mg/dL (75-99)
--- NOTE | 2020-03-03 10:43 | P.PN ---
Subjective Progress Note Date: 03/03/20 Melva Jackson, is a 59-year-old female who presented to [facility] emergency room due to nausea vomiting and diarrhea, and elevated glucose level, she was evaluated in the emergency room, her temperature on presentation was 90.1, pulse 75 respiration 18 blood pressure 79/51 pulse ox 94% on room air, her white blood count was elevated at 11.6 hemoglobin 9.6 platelet count 156, venous blood gas pH was 7.05 glucose level was 744 and serum acetone was positive, patient was admitted to ICU she was started on IV fluid and on IV insulin drip. Patient has a known history of insulin-dependent diabetes mellitus type 1 maintained on insulin he had previous episodes of DKA, she also had a history of stroke, history of hypertension, hyperlipidemia, coronary artery disease with myocardial infarction, peripheral vascular disease with multiple toe amputation, history of COPD. On review of systems patient is alert responsive in no apparent distress she was seen in ICU she is still complaining of nausea and occasional episodes of vomiting there is no fever or chills no headache or dizziness no chest pain no shortness of breath no cough she is having some abdominal discomfort no no burni ng with urination no frequency or urgency no hematuria. On 03/03/2020 patient remains in the intensive care unit. Patient does not appear in any kind of distress. She currently getting treated for pneumonia critical care services are following. Patient remains on Levaquin. Patient has been transitioned to subcu insulin patient did have episodes of low sugar this a.m. treated per protocol. Objective - Vital Signs Vital signs: Vital Signs Temp 98.4 F 03/03/20 08:00 Pulse 85 03/03/20 09:00 Resp 14 03/03/20 09:00 BP 127/75 03/03/20 09:00 Pulse Ox 100 03/03/20 09:00 Intake & Output 03/02/20 03/03/20 03/03/20 18:59 06:59 18:59 Intake Total 1861 1011 116 Output Total 1005 945 266 Balance 856 66 -150 Weight 50.8 kg 46.8 kg Intake: IV 1461 661 116 D5-0.45% NaCl with KCl 1275 625 110 20Meq/l 1,000 ml @ 150 mls/hr IV .Q6H40M [facility] Rx# :[id number] Lacosamide IV 50 mg In 50 Sodium Chloride 0.9% 50 ml @ 100 mls/hr IVPB BID [facility] Rx#:[id number] Levofloxacin 500Mg-D5w 100 Pmx 500 mg In Dextrose/ Water 1 100ml.bag @ 100 mls/hr IVPB ONCE ONE Rx#: [id number] Pressure Bag 36 36 6 Intake, IV Titration 150 350 Amount D5-0.45% NaCl with KCl 150 20Meq/l 1,000 ml @ 150 mls/hr IV .Q6H40M [facility] [place] Rx# :[id number] Lacosamide IV 50 mg In 100 Sodium Chloride 0.9% 50 ml @ 100 mls/hr IVPB BID [facility] [place] Rx#:[id number] Vancomycin 750 mg In 250 Sodium Chloride 0.9% 250 ml @ 125 mls/hr IVPB Q24H [facility] [place] Rx#:[id number] Oral 250 Output: Urine 975 945 266 Emesis 30 Other: Voiding Method Indwelling Catheter Indwelling Catheter ABP, PAP, CO, CI - Last Documented Arterial Blood Pressure 136/54 - Exam In general patient is alert responsive in no apparent distress HEENT head normocephalic and atraumatic Neck is supple no JVD no goiter no lymphadenopathy Chest exam reveals a few scattered rhonchi no wheezing Cardiac exam reveals regular heart sounds S1 and S2 with mild tachycardia no gallops no murmurs Abdomen is soft nontender no rigidity or rebound no palpable masses with hyperactive bowel sounds Extremity exam reveals no edema no cyanosis or clubbing Neurological examination reveals no gross new focal deficit - Labs CBC & Chem 7: 03/03/20 04:10 03/03/20 04:10 Labs: Abnormal Lab Results - Last 24 Hours (Table) 03/02/20 03/02/20 03/02/20 Range/Units 10:46 11:54 16:08 RBC (3.80-5.40) m/uL Hgb (11.4-16.0) gm/dL Hct (34.0-46.0) % Plt Count (150-450) k/uL Metamyelocytes # (Man) (0) k/uL Sodium (137-145) mmol/L Chloride (98-107) mmol/L BUN (7-17) mg/dL Creatinine (0.52-1.04) mg/dL Glucose (74-99) mg/dL POC Glucose (mg/dL) 188 H 194 H 128 H (75-99) mg/dL Calcium (8.4-10.2) mg/dL 03/02/20 03/02/20 03/03/20 Range/Units 20:04 20:14 00:10 RBC (3.80-5.40) m/uL Hgb (11.4-16.0) gm/dL Hct (34.0-46.0) % Plt Count (150-450) k/uL Metamyelocytes # (Man) (0) k/uL Sodium (137-145) mmol/L Chloride (98-107) mmol/L BUN (7-17) mg/dL Creatinine (0.52-1.04) mg/dL Glucose (74-99) mg/dL POC Glucose (mg/dL) 368 H 366 H 225 H (75-99) mg/dL Calcium (8.4-10.2) mg/dL 03/03/20 03/03/20 03/03/20 Range/Units 04:00 04:02 04:10 RBC 2.57 L (3.80-5.40) m/uL Hgb 7.5 L D (11.4-16.0) gm/dL Hct 24.1 L (34.0-46.0) % Plt Count 97 L (150-450) k/uL Metamyelocytes # (Man) 0.17 H (0) k/uL Sodium (137-145) mmol/L Chloride (98-107) mmol/L BUN (7-17) mg/dL Creatinine (0.52-1.04) mg/dL Glucose (74-99) mg/dL POC Glucose (mg/dL) 22 L 20 L (75-99) mg/dL Calcium (8.4-10.2) mg/dL 03/03/20 03/03/20 03/03/20 Range/Units 04:10 04:13 04:46 RBC (3.80-5.40) m/uL Hgb (11.4-16.0) gm/dL Hct (34.0-46.0) % Plt Count (150-450) k/uL Metamyelocytes # (Man) (0) k/uL Sodium 148 H (137-145) mmol/L Chloride 119 H (98-107) mmol/L BUN 39 H (7-17) mg/dL Creatinine 1.07 H (0.52-1.04) mg/dL Glucose 276 H (74-99) mg/dL POC Glucose (mg/dL) 205 H 106 H (75-99) mg/dL Calcium 8.0 L (8.4-10.2) mg/dL 03/03/20 03/03/20 03/03/20 Range/Units 05:22 05:39 06:10 RBC (3.80-5.40) m/uL Hgb (11.4-16.0) gm/dL Hct (34.0-46.0) % Plt Count (150-450) k/uL Metamyelocytes # (Man) (0) k/uL Sodium (137-145) mmol/L Chloride (98-107) mmol/L BUN (7-17) mg/dL Creatinine (0.52-1.04) mg/dL Glucose (74-99) mg/dL POC Glucose (mg/dL) 61 L 279 H 129 H (75-99) mg/dL Calcium (8.4-10.2) mg/dL 03/03/20 03/03/20 03/03/20 Range/Units 07:01 07:16 08:06 RBC (3.80-5.40) m/uL Hgb (11.4-16.0) gm/dL Hct (34.0-46.0) % Plt Count (150-450) k/uL Metamyelocytes # (Man) (0) k/uL Sodium (137-145) mmol/L Chloride (98-107) mmol/L BUN (7-17) mg/dL Creatinine (0.52-1.04) mg/dL Glucose (74-99) mg/dL POC Glucose (mg/dL) 65 L 275 H 127 H (75-99) mg/dL Calcium (8.4-10.2) mg/dL 03/03/20 Range/Units 10:13 RBC (3.80-5.40) m/uL Hgb (11.4-16.0) gm/dL Hct (34.0-46.0) % Plt Count (150-450) k/uL Metamyelocytes # (Man) (0) k/uL Sodium (137-145) mmol/L Chloride (98-107) mmol/L BUN (7-17) mg/dL Creatinine (0.52-1.04) mg/dL Glucose (74-99) mg/dL POC Glucose (mg/dL) 64 L (75-99) mg/dL Calcium (8.4-10.2) mg/dL Microbiology - Last 24 Hours (Table) 03/01/20 19:45 Blood Culture Gram Stain - Preliminary Blood 03/01/20 19:45 Blood Culture - Final Blood Assessment and Plan Assessment: 1. Acute diabetic ketoacidosis with severe hyperglycemia and positive serum acetone patient is improving with IV fluid and IV insulin drip. She has been transitioned to subcu insulin. Patient having an episode of hypoglycemia. Protocol followed per nursing staff 2. Underlying history of diabetes mellitus type 1 maintained on insulin, her primary care provider is No Bowden, she was contacted and she stated that she was recently hospitalized at [facility], a different relative was caring for patient and apparently glucose level has been extremely elevated for several days. 3. Underlying history of hypertension 4. Underlying history of hyperlipidemia 5. Underlying history of seizure disorder, will place patient on IV Keppra until she is able to take her oral medications 6. Underlying history of COPD stable no evidence of exacerbation 7. Underlying history of coronary artery disease stable at this time patient denies any chest pain 8. Underlying history of peripheral vascular disease with previous history of multiple toe amputations 9. Previous history of stroke. 10. Right-sided pneumonia. Patient currently on Levaquin. Pulmonary and critical care service is following. Chest x-ray this a.m. showing infiltrates within the right upper lobe and improving within the right lower lobe At this time patient is admitted to intensive care unit continue with IV fluids and insulin management Home medication reviewed, will be switched to IV medications when possible due to continuous nausea and vomiting at this time Pulmonary critical care are following I performed an examination of the patient and discussed their management with the Nurse Practitioner. I have reviewed the Nurse Practitioner's notes and agree with the documented findings and plan of care
[2020-03-03] MEDS ORDERED: MORPHINE SULFATE 4 MG/ML SYRINGE ONE (10:46)
--- NOTE | 2020-03-03 11:32 | XR ---
EXAMINATION TYPE: XR chest 1V portable DATE OF EXAM: 03/03/2020 COMPARISON: 03/03/2020 INDICATION: Line placement TECHNIQUE: Single frontal view of the chest is obtained. FINDINGS: The heart size is normal. The pulmonary vasculature is normal. There is a right upper lobe consolidation. Correlate for worsening pneumonia. Some mild infiltrate ma y be at the right base. There is a left central venous catheter present with the tip in the right atrium. IMPRESSION: 1. Right upper lobe infiltrate. 2. Mild right lower lobe infiltrate
[2020-03-03] MEDS: LACOSAMIDE IV 50 MG in SODIUM CHLORIDE 0.9% 50 ML IVPB SCH ×2 (12:17→22:31)
[2020-03-03] MEDS: LEVOFLOXACIN 250MG-D5W PMX 250 MG in DEXTROSE/WATER 1 50ML.BAG IVPB SCH (12:18)
--- NOTE | 2020-03-03 12:18 | PN ---
PROGRESS NOTE PULMONARY/CRITICAL CARE PROGRESS NOTE: DATE OF SERVICE: March 03, 2020 HISTORY: This is a 59-year-old female who presents from assisted living home where she resides. She apparently came in with complaints of nausea, vomiting, diarrhea with profound dehydration and laboratory analysis discovered severe diabetic ketoacidosis. The patient does have a history of CVA, hypertension, CAD, chronic kidney disease, and diabetes. She also apparently carries with her a history of frequent episodes of DKA. Currently, the patient is on D5 0.45 with 20 of potassium at 55 mL an hour. She is getting O2 of 4 L. Her chest x-ray shows right basilar greater than left basilar pneumonia. She is getting sliding scale insulin q.4 hours, NovoLog, and she is on Levaquin and vancomycin. Today, because of no IV access, I had to place a central line. We did a left internal jugular triple-lumen catheter. PHYSICAL EXAMINATION: VITAL SIGNS: Current vital signs are reviewed. Temperature is 98.4, heart rate 90, respiratory rate 14, blood pressure 138/99, mean 112, 4 L saturation is 100%. Appears in no acute distress. HEENT: Examination is grossly unremarkable. NECK: Supple. Full range of motion. Neck veins are flat. CARDIOVASCULAR: Examination reveals a regular rhythm rate. Heart rate 90 beats per minute. S1, S2 normal. LUNGS: A few scattered coarse rhonchi. No wheezes or crackles. ABDOMEN: Soft. Extremities are intact. No edema. SKIN: Without rash. NEUROLOGIC is difficult to assess but she does arouse and she does move all 4 extremities. She is somewhat lethargic and somnolent but that has been her mental status since she has been here. LABS: Reviewed. White count 8.6, hemoglobin 7.5, hematocrit 24.1, platelet count 97,000. The patient's sodium is 148, potassium 3.5, chloride 119, CO2 29, BUN and creatinine were 39 and 1.07 down from 57 and 1.51. Urine is reviewed. Microbiologic studies including all blood cultures, urine and sputum are negative. Her most recent chest x-ray from March 03 shows relatively clear left lung, but a right upper lobe infiltrate and possibly a right middle lobe right lower lobe infiltrate as well. CURRENT MEDICATIONS: Reviewed. Currently, she is on aspirin, the IV I previously mentioned, and NovoLog sliding scale q.4 hours, DuoNeb, Vimpat, Levaquin Reglan, Zofran, potassium replacement, Seroquel, and vancomycin. ASSESSMENT: 1. Diabetic ketoacidosis, improved, currently off the insulin drip. 2. Right-sided pneumonia, mostly involving right upper lobe, right mid lung, right lower lobe, possibly related to aspiration. 3. History of long-standing diabetes with multiple episodes of diabetic ketoacidosis. 4. Diabetic neuropathy. 5. History of chronic obstructive pulmonary disease/asthma. 6. History of coronary artery disease. 7. Angina pectoris. 8. History of congestive heart failure. 9. Prior history of cerebrovascular accident. 10.Deep venous thrombosis. 11.Gastroesophageal reflux disease. 12.Hyperlipidemia. 13.Essential hypertension. 14.Prior history of myocardial infarction. PLAN: Currently, the patient is doing a bit better. Chest x-ray still shows a pretty dense consolidation right upper lobe. She remains on antibiotics. The left internal jugular triple-lumen catheter was placed by myself today because she had no IV access. She remains on antibiotics. Additional recommendations and suggestions are forthcoming. We will continue to follow. Prognosis is guarded. MMODL / IJN: [id number] /
[2020-03-03] MEDS: VANCOMYCIN 750 MG in SODIUM CHLORIDE 0.9% 250 ML IVPB SCH (12:19)
[2020-03-03 12:27] LABS: Glucose,Whole Blood 132 mg/dL (75-99)
[2020-03-03 13:33] LABS: Glucose,Whole Blood 133 mg/dL (75-99)
--- NOTE | 2020-03-03 14:24 | PCN ---
PROCEDURE NOTE PROCEDURE: Left internal jugular triple-lumen catheter. OPERATORS: Dr. Kearns and Dr. Manzanares PREOP DIAGNOSIS: Administration of fluids and pressors. POSTOP DIAGNOSIS: Administration of fluids and pressors. I have discussed the risks, benefits and alternative therapies for the above-mentioned procedure and for both sedation/analgesia as well as necessary blood product administration, if indicated, as they pertain to this patient. The patient has indicated his or her understanding and acceptance of the risks and procedures discussed. TRIPLE LUMEN CATHETER PLACEMENT: Indication: Hemodynamic monitoring/Intravenous access. A time-out was completed verifying correct patient, procedure, site, positioning, and implant(s) or special equipment if applicable. The patient was placed in a dependent position appropriate for triple lumen catheter placement based on the vein to be cannulated. The patient's left neck was prepped and draped in sterile fashion. 1% Lidocaine was used to anesthetize the surrounding skin area. A triple lumen 9F Cordis catheter was introduced into the left internal jugular vein using Seldinger technique. The catheter was threaded smoothly over the guide wire and appropriate blood return was obtained. Each lumen of the catheter was evacuated of air and flushed with sterile saline. The catheter was then sutured in place to the skin and a sterile dressing applied. Perfusion to the extremity distal to the point of catheter insertion was checked and found to be adequate. We did use some topical lidocaine at the site of the puncture. We used a posterior approach for the internal jugular vein on the left. There was no immediate complication. There was good blood return from all three ports. The catheter was sutured in place. Sterile dressing was applied by the nurse. A chest x-ray was ordered. There was no immediate complication. The patient tolerated the procedure well. MMODL / IJN: [id number] /
[2020-03-03 15:27] LABS: Glucose,Whole Blood 133 mg/dL (75-99)
[2020-03-03 17:00] LABS: % Iron Saturation 7.29 (12.00-45.00); Folate, Serum 15.2 ng/mL
[2020-03-03 17:22] LABS: Glucose,Whole Blood 200 mg/dL (75-99)
[2020-03-03 18:04] LABS: Glucose,Whole Blood 254 mg/dL (75-99)
[2020-03-03 19:15] LABS: Glucose,Whole Blood 236 mg/dL (75-99)
[2020-03-03 22:37] LABS: Glucose,Whole Blood 254 mg/dL (75-99)
[2020-03-03] MEDS: QUEtiapine 100 MG TAB PO SCH (22:40)
[2020-03-04 01:07] LABS: Glucose,Whole Blood 106 mg/dL (75-99)
[2020-03-04] MEDS: INSULIN ASPART (NovoLOG) 100 UNIT/ML VIAL SQ SCH ×5 (01:08→20:25)
[2020-03-04] MEDS: VANCOMYCIN 750 MG in SODIUM CHLORIDE 0.9% 250 ML IVPB SCH (01:08)
[2020-03-04] MEDS ORDERED: VANCOMYCIN 750 MG in SODIUM CHLORIDE 0.9% 250 ML IVPB SCH (02:00)
[2020-03-04] MEDS: DEXTROSE 5%-0.9% NACL 1,000 ML IV SCH ×2 (03:16→23:20)
[2020-03-04] MEDS: D5-0.45% NACL WITH KCL 20MEQ/L 1,000 ML IV SCH ×4 (03:16→23:22)
[2020-03-04 04:50] LABS: Glucose,Whole Blood 271 mg/dL (75-99)
[2020-03-04 05:39] LABS: Basophils % (A) 0 %; Eosinophils % (A) 0 %; HCT 21.3 % (34.0-46.0); Hypochromasia Slight; Lymphocytes # (A) 1.4 k/uL (1.0-4.8); Lymphocytes % (A) 28 %; MCH 30.1 pg (25.0-35.0); MCHC 32.1 g/dL (31.0-37.0); MCV 93.9 fL (80.0-100.0); Mean Platelet Volume 8.5; Monocytes # (A) 0.2 k/uL (0-1.0); Monocytes % (A) 4 %; Neutrophils # (A) 3.2 k/uL (1.3-7.7); Neutrophils % (A) 67 %; RBC 2.27 m/uL (3.80-5.40); RDW 15.3 % (11.5-15.5); WBC 4.8 k/uL (3.8-10.6)
[2020-03-04 05:48] LABS: African American GFR (CKD) >90 (>60 ml/min/1.73 sqM); Anion Gap 0 mmol/L; Blood Urea Nitrogen 18 mg/dL (7-17); Calcium 7.8 mg/dL (8.4-10.2); Carbon Dioxide 29 mmol/L (22-30); Chloride 115 mmol/L (98-107); Glucose 260 mg/dL (74-99); HGB 6.8 gm/dL (11.4-16.0); Non-African American GFR(CKD) 79 (>60 ml/min/1.73 sqM); Potassium 3.8 mmol/L (3.5-5.1); Sodium 144 mmol/L (137-145)
[2020-03-04 05:49] LABS: Platelet Count 58 k/uL (150-450)
[2020-03-04] MEDS: IPRATROPIUM-ALBUTEROL 3 ML NEB INHALATION SCH ×4 (07:25→19:02)
[2020-03-04] MEDS ORDERED: DIVALPROEX 250 MG TABLET.DR PO SCH (09:00)
[2020-03-04] MEDS ORDERED: ATORVASTATIN 20 MG TAB PO SCH (09:00)
[2020-03-04] MEDS: CLINDAMYCIN 300 MG in DEXTROSE 5% IN WATER 50 ML IVPB SCH ×8 (09:34→23:20)
[2020-03-04] MEDS: LOSARTAN 50 MG TAB PO SCH (09:39)
[2020-03-04] MEDS: DULoxetine HCL 60 MG CAPSULE.DR PO SCH (09:39)
[2020-03-04] MEDS: CLOPIDOGREL 75 MG TAB PO SCH (09:39)
[2020-03-04] MEDS: ASPIRIN 81 MG PO SCH (09:39)
[2020-03-04] MEDS: QUEtiapine 25 MG TAB PO SCH ×2 (09:39→22:03)
[2020-03-04] MEDS: METOCLOPRAMIDE 10 MG TAB PO SCH ×3 (09:43→18:01)
[2020-03-04] MEDS: SODIUM CHLORIDE 0.9% IVPB SCH ×2 (10:19→20:25)
[2020-03-04] MEDS: LACOSAMIDE IVPB SCH ×2 (10:19→20:25)
[2020-03-04] MEDS: VALPROATE SODIUM 250 MG in SODIUM CHLORIDE 0.9% 100 ML IVPB SCH ×3 (10:24→23:21)
[2020-03-04] MEDS: LEVOFLOXACIN 250MG-D5W PMX 250 MG in DEXTROSE/WATER 1 50ML.BAG IVPB SCH (11:09)
[2020-03-04 11:55] LABS: Glucose,Whole Blood 347 mg/dL (75-99)
[2020-03-04 11:55] LABS: Glucose,Whole Blood 345 mg/dL (75-99)
--- NOTE | 2020-03-04 11:59 | P.CNNES ---
History of Present Illness Consult date: 03/04/20 Requesting physician: Ángela Foley Reason for Consult: altered mental status History of Present Illness: This is a 59-year-old woman with medical history of stroke in 2015 (encephalomalacia over the right frontal parietal and temporal lobe) with residual left hemiparesis, symptomatic right ICA stenosis, asymptomatic left ICA stenosis, seizure disorder, diabetes, DKA, hypertension, ex tobacco use (stopped 2014) that presented to emergency department on that 03/01/2020 high as of 11/26/2019 because of the episodes of nausea, vomiting and diarrhea. Patient resides in assisted living home. Her sugar by EMS reading was more than 600. Workup in the hospital consisted of: Initial vitals were blood pressure of 79/51, heart rate of 75, temperature of 98.1 Fahrenheit rectal, respiratory was 18 and pulse ox of 94 L at room air. Patient next to blood pressures were systolic between 80s to 90s. CT of the head which shows old large right hemispheric infarct. No acute intracranial abnormality. No change compared to recent exam. I personally reviewed the CT of the head and I agree. EKG was reported as the normal sinus rhythm. Ventricle rate of 75. Possible left atrial enlargement. ST and T-wave abnormality, consider inferior ischemia. Abnormal EKG. Chest x-ray was reported as there is some new nodular infiltrates in the right upper lobe compared to the recent exam and consistent with pneumonia. No heart failure seen. Normal heart. Her initial POC glucose was more than 600. The serum glucose was 935., CO2 was less than 5. Her venous pH was 7.05, pCO2 was 19 and bicarbonate was 5. Patient labs were consisted of the DKA. Initial white blood cell is 11.6 I personally saw the patient on 01/29/2020 for break-through seizure. At that time her Depakote level was subtherapeutic. And she had cellulitis of lower extremity so seemed that this was more of a provoked seizure. Preprint Analyst and she mentioned that the patient is compliant taking the medication and there is a concern for neglect. I recommended for the Vimpat to be increased from 50 mg twice a day to 75 mg a twice a day. And that to continue the Depakote 250 mg 3 times and day. I did not modify her Depakote level is according to the caregiver she the patient is somewhat restless. Vascular team to evaluate the patient on 02/02/2020 and the carotid duplex was ordered and this was reported as redemonstrated chronic occlusion of the right ICA. Moderate others chronic change at the left bifurcation without hemodynamic si gnificant stenosis. At that time patient was on aspirin 81 mg and Lipitor 20 mg I added Plavix in addition because of significant ICA stenosis as well as increased Lipitor from 20 to 80mg daily. Per Dr. Marcos it's mentioned that the patient might need intervention down the line regarding the ICA stenosis over the right. Review of Systems Review of system is limited in the prone positive and negative per HPI. Past Medical History Past Medical History: Asthma, Coronary Artery Disease (CAD), Chest Pain / Angina, Heart Failure, COPD, CVA/TIA, Diabetes Mellitus, Deep Vein Thrombosis (DVT), Eye Disorder, GERD/Reflux, Hyperlipidemia, Hypertension, Myocardial Infarction ([place]), Neurologic Disorder, Osteoarthritis (OA), Pneumonia, Renal Disease Additional Past Medical History / Comment(s): IDDM (brittle), DKAs, neuropathy bilateral hands/feet, retinopathy bilateral eyes, cellulitis R foot, R great toe and 2nd toe infections/amputations, current wound R foot-being seen in [facility], renal failure, anemia, CVAs with L sided paralysis, headaches started after CVAs, brain lesions, DVT R axillae, low back pain, varicosities, seizure many years ago (2001), hypothyroid, constipation, bilateral tinnitis occasionally, sinus problems. Last Myocardial Infarction Date:: 2011 History of Any Multi-Drug Resistant Organisms: MRSA Date of last positivie culture/infection: 09/06/17 MDRO Source:: Right Foot Past Surgical History: Appendectomy, Section, Cholecystectomy, Heart Ca theterization With Stent, Hysterectomy, Orthopedic Surgery Additional Past Surgical History / Comment(s): PCI with multiple stents, R great toe and 2nd toe amps, debridements R foot ulcer, L shoulder surgery to remove bone, bronchoscopy, EGD, colonoscopy, R arm port since removed, bilateral cataract removals/lens implants. Past Anesthesia/Blood Transfusion Reactions: No Reported Reaction Additional Past Anesthesia/Blood Transfusion Reaction / Comment(s): HX OF BLOOD TRANSFUSION- NO REACTION Date of Last Stent Placement:: July 2012 Past Psychological History: Anxiety, Bipolar, Depression Smoking Status: Never smoker Past Alcohol Use History: None Reported Past Drug Use History: Marijuana - Past Family History Father Family Medical History: Unable to Obtain, Coronary Artery Disease (CAD), Diabetes Mellitus Mother Family Medical History: COPD Medications and Allergies Home Medications Medication Instructions Recorded Confirmed Type Famotidine [Pepcid] 20 mg PO DAILY 07/19/15 03/01/20 History HYDROcodone/APAP 10-325MG [[place] 1 tab PO TID PRN 10/03/16 03/01/20 History 10-325] DULoxetine HCL [Cymbalta] 60 mg PO DAILY 02/16/17 03/01/20 History Atorvastatin [Lipitor] 20 mg PO DAILY 12/28/18 03/01/20 History QUEtiapine [SEROquel] 100 mg PO HS 12/28/18 03/01/20 History Aspirin [Adult Low Dose Aspirin EC] 81 mg PO DAILY 06/09/19 03/01/20 History Ferrous Sulfate [Iron (65 MG 325 mg PO DAILY 06/09/19 03/01/20 History Elemental)] Divalproex [Depakote] 250 mg PO TID #90 tablet. 08/17/19 03/01/20 Rx ALPRAZolam [Xanax] 1 mg PO Q8H PRN 12/26/19 03/01/20 History Albuterol Sulfate [Ventolin HFA] 2 puff INHALATION RT-Q4H PRN 12/26/19 03/01/20 History Ondansetron Odt [Zofran ODT] 4 mg PO DAILY PRN 12/26/19 03/01/20 History Valproic Acid [Depakene] 250 mg PO DAILY 12/26/19 03/01/20 History QUEtiapine [SEROquel] 25 mg PO BID 01/10/20 03/01/20 History Losartan [Cozaar] 50 mg PO DAILY tab 01/18/20 03/01/20 Rx Metoclopramide [Reglan] 10 mg PO AC-TID tab 01/18/20 03/01/20 Rx Ascorbic Acid [Vitamin C] 500 mg PO DAILY 01/29/20 03/01/20 History Insulin Glargine,Hum.rec.anlog 20 unit SQ HS 01/29/20 03/01/20 History [Maria Victoria Pearson U-100] Vitamin B Complex 1 tab PO DAILY 01/29/20 03/01/20 History Calcium Carb-Vit D 500Mg-200Un 1 each PO BID-W/MEALS tab 02/02/20 03/01/20 Rx [Oscal 500+D] Clopidogrel [Plavix] 75 mg PO DAILY tab 02/02/20 03/01/20 Rx INSULIN ASPART (NovoLOG) [NovoLOG 0 unit SQ AC-TID vial 02/02/20 03/01/20 Rx (formulary)] Lacosamide [Vimpat] 50 mg PO HS 03/01/20 03/01/20 History Lacosamide [Vimpat] 100 mg PO QAM 03/01/20 03/01/20 History Allergies Allergy/AdvReac Type Severity Reaction Status Date / Time Barbiturates Allergy Rash/Hives Verified 03/01/20 21:31 cephalexin monohydrate Allergy Rash/Hives Verified 03/01/20 21:31 [From [place]] morphine Allergy Rash/Hives Verified 03/01/20 21:31 Penicillins Allergy Rash/Hives Verified 03/01/20 21:31 phenobarbital Allergy Swelling Verified 03/01/20 21:31 venom-honey bee Allergy Swelling Verified 03/01/20 21:31 [bee venom (honey bee)] amlodipine besylate AdvReac Vomiting Verified 03/01/20 21:31 [From [facility]] Physical Examination - Vital Signs Vital Signs: Vital Signs Temp Pulse Resp BP Pulse Ox 03/04/20 10:27 99.3 F 99 18 131/56 99 03/04/20 10:17 99.3 F 104 H 20 96/69 98 03/04/20 10:00 101 H 18 136/55 90 L 03/04/20 09:00 99.3 F 105 H 13 141/56 92 L 03/04/20 08:00 104 H 19 94/54 97 03/04/20 07:38 100 03/04/20 07:26 99 03/04/20 07:00 78 21 122/49 98 03/04/20 06:00 77 23 113/85 99 03/04/20 05:00 80 17 88/50 99 03/04/20 04:00 72 21 121/89 98 03/04/20 03:18 31 H 03/04/20 03:00 92 31 H 116/44 98 03/04/20 02:00 103 H 23 85/46 95 03/04/20 01:00 87 17 95 03/04/20 00:17 90 8 L 97/58 99 03/04/20 00:00 98.0 F 86 4 L 122/57 97 03/03/20 23:00 104 H 11 L 126/49 93 L 03/03/20 22:00 93 11 L 92 L 03/03/20 21:11 98 03/03/20 21:00 97.5 F L 98 23 98 03/03/20 20:00 101 H 51 H 91 L 03/03/20 19:00 103 H 19 135/90 98 03/03/20 18:00 98 21 135/90 99 03/03/20 17:00 101 H 18 135/71 97 03/03/20 16:00 99.0 F 93 14 100 03/03/20 15:58 96 03/03/20 15:49 95 03/03/20 15:00 93 18 118/81 98 03/03/20 14:00 81 20 128/95 99 03/03/20 13:00 86 20 97 03/03/20 12:00 97.7 F 100 15 98 03/03/20 11:17 93 03/03/20 11:04 96 Intake and Output 03/03/20 03/04/20 03/04/20 22:59 06:59 14:59 Intake Total 624 627 312 Output Total 1285 1150 475 Balance -661 -523 -163 Intake: IV 624 627 312 D5-0.45% NaCl with KCl 600 603 300 20Meq/l 1,000 ml @ 150 mls/hr IV .[id number] [facility] Rx# :[id number] Pressure Bag 24 24 12 Blood Product 0 Rc As-3 Unit 0 [id number] Output: Urine 1285 1150 475 Other: Voiding Method Indwelling Catheter Indwelling Catheter Weight 50.4 kg ABP, PAP, CO, CI - Last 8 Hours Arterial Blood Pressure 99/70 Arterial Blood Pressure 112/78 Arterial Blood Pressure 75/37 GENERAL: The patient is lying in bed and is not in acute distress. CHEST: The heart rate is regular rate rhythm. No murmurs to auscultation. LUNG: Clear to auscultation bilaterally no wheezing noted throughout. Not labored breathing. ABDOMEN/GI: Bowel sounds present in all 4 quadrants. No tenderness to palpation throughout. NEUROLOGICAL: Higher mental function: The patient is awake, alert, oriented to self only. She stated she was at a dentist office. She state the year is 2017. She is able to name objects correctly such as pen, watch and phone. Patient is following simple commands. No aphasia and no neglect. Cranial nerves: The pupils are round, equal and reactive to light and accommodation. Visual campuzano are Left Homonymous lower visual field cut to threat. Extraocular movement is intact no nystagmus is noted. Facial sensation unable to assess because of patient cooperation. The facial strength: left nasolabial flattening . Hearing is normal bilaterally to hand rub. Tongue is midline and moved [id number] without any difficulty. No dysarthria is noted. Shoulder unable to assess because of coopoeration. Motor: Gait is defered. Right upper extremity is moving above gravity and no drift. As well moving left lower extremity above gravity above gravity. Left upper extremity is 0/5. Increased tone of left upper extremity especially at hand. Cerebellum: Normal finger to nose heel to chin bilaterally. Sensation: Unable to assess because of cooperation. Reflexes (right/left): Brisk over the left upper extremity (3+) otherwise 1+ throughout. Plantars: Unable to assess right foot since digit 1-2 are amputated (as well as 5th digit). Left is upgoing. Results Her pCO2 glucose on presentation was more than 600 currently last was 382. Jeff glucose last was 357. AST of 27, ALP of 24. Coagulation study: PT of 10.3, INR 1.0, PTT of 22.4. Serum all call was less than 10. Acetone was positive Vitamin B12 is 1527. Folate of 15.2 Urinalysis initially was nitrite was negative, urine leukocyte was negative. The urine ketones was for positive and the urine glucose was 4 positive. - Laboratory Findings CBC and BMP: 03/04/20 04:45 03/04/20 04:45 Abnormal Lab Findings: Abnormal Labs 03/01/20 03/01/20 03/01/20 19:24 19:26 19:35 WBC 11.6 H RBC 3.28 L Hgb 9.6 L D Hct MCV 109.3 H D MCHC 26.9 L Plt Count Neutrophils # 10.3 H Lymphocytes # 0.9 L Metamyelocytes # (Man) Macrocytosis Marked A VBG pH VBG pCO2 VBG HCO3 Sodium Chloride Carbon Dioxide BUN Creatinine Glucose POC Glucose (mg/dL) >600 H Calcium Phosphorus Magnesium Iron TIBC % Saturation Creatine Kinase Vitamin B12 Urine Glucose (UA) 4+ H Urine Ketones 4+ H Urine Blood Urine Bilirubin Amorphous Sediment Urine Bacteria Urine Mucus Crossmatch 03/01/20 03/01/20 03/01/20 19:35 19:35 19:35 WBC RBC Hgb Hct MCV MCHC Plt Count Neutrophils # Lymphocytes # Metamyelocytes # (Man) Macrocytosis VBG pH 7.05 L* VBG pCO2 19 L VBG HCO3 5 L* Sodium Chloride Carbon Dioxide <5 L* BUN 53 H Creatinine 1.98 H Glucose 935 H* POC Glucose (mg/dL) Calcium Phosphorus Magnesium 2.9 H Iron TIBC % Saturation Creatine Kinase 196 H Vitamin B12 Urine Glucose (UA) Urine Ketones Urine Blood Small H Urine Bilirubin 1+ H Amorphous Sediment Rare H Urine Bacteria Rare H Urine Mucus Few H Crossmatch 03/01/20 03/01/20 03/01/20 19:45 21:13 21:47 WBC RBC Hgb Hct MCV MCHC Plt Count Neutrophils # Lymphocytes # Metamyelocytes # (Man) Macrocytosis VBG pH VBG pCO2 VBG HCO3 Sodium Chloride Carbon Dioxide BUN Creatinine Glucose 744 H* POC Glucose (mg/dL) >600 H Calcium Phosphorus Magnesium Iron TIBC % Saturation Creatine Kinase Vitamin B12 Urine Glucose (UA) Urine Ketones Urine Blood Urine Bilirubin Amorphous Sediment Urine Bacteria Urine Mucus Crossmatch See Detail 03/01/20 03/02/20 03/02/20 22:56 01:08 01:10 WBC RBC Hgb Hct MCV MCHC Plt Count Neutrophils # Lymphocytes # Metamyelocytes # (Man) Macrocytosis VBG pH VBG pCO2 VBG HCO3 Sodium Chloride 112 H Carbon Dioxide 15 L BUN 56 H Creatinine 1.57 H Glucose 555 H* POC Glucose (mg/dL) >600 H 522 H Calcium Phosphorus Magnesium Iron TIBC % Saturation Creatine Kinase Vitamin B12 Urine Glucose (UA) Urine Ketones Urine Blood Urine Bilirubin Amorphous Sediment Urine Bacteria Urine Mucus Crossmatch 03/02/20 03/02/20 03/02/20 02:00 03:02 03:52 WBC RBC Hgb Hct MCV MCHC Plt Count Neutrophils # Lymphocytes # Metamyelocytes # (Man) Macrocytosis VBG pH VBG pCO2 VBG HCO3 Sodium Chloride Carbon Dioxide BUN Creatinine Glucose POC Glucose (mg/dL) 490 H 446 H 382 H Calcium Phosphorus Magnesium Iron TIBC % Saturation Creatine Kinase Vitamin B12 Urine Glucose (UA) Urine Ketones Urine Blood Urine Bilirubin Amorphous Sediment Urine Bacteria Urine Mucus Crossmatch 03/02/20 03/02/20 03/02/20 04:30 04:30 05:05 WBC 2.8 L RBC 3.07 L Hgb 9.1 L Hct 28.8 L MCV MCHC Plt Count 137 L Neutrophils # Lymphocytes # 0.5 L Metamyelocytes # (Man) Macrocytosis VBG pH VBG pCO2 VBG HCO3 Sodium Chloride 115 H Carbon Dioxide BUN 57 H Creatinine 1.51 H Glucose 357 H POC Glucose (mg/dL) 347 H Calcium Phosphorus 2.2 L Magnesium Iron TIBC % Saturation Creatine Kinase Vitamin B12 Urine Glucose (UA) Urine Ketones Urine Blood Urine Bilirubin Amorphous Sediment Urine Bacteria Urine Mucus Crossmatch 03/02/20 03/02/20 03/02/20 06:15 07:10 08:16 WBC RBC Hgb Hct MCV MCHC Plt Count Neutrophils # Lymphocytes # Metamyelocytes # (Man) Macrocytosis VBG pH VBG pCO2 VBG HCO3 Sodium Chloride Carbon Dioxide BUN Creatinine Glucose POC Glucose (mg/dL) 287 H 276 H 211 H Calcium Phosphorus Magnesium Iron TIBC % Saturation Creatine Kinase Vitamin B12 Urine Glucose (UA) Urine Ketones Urine Blood Urine Bilirubin Amorphous Sediment Urine Bacteria Urine Mucus Crossmatch 03/02/20 03/02/20 03/02/20 09:21 10:46 11:54 WBC RBC Hgb Hct MCV MCHC Plt Count Neutrophils # Lymphocytes # Metamyelocytes # (Man) Macrocytosis VBG pH VBG pCO2 VBG HCO3 Sodium Chloride Carbon Dioxide BUN Creatinine Glucose POC Glucose (mg/dL) 181 H 188 H 194 H Calcium Phosphorus Magnesium Iron TIBC % Saturation Creatine Kinase Vitamin B12 Urine Glucose (UA) Urine Ketones Urine Blood Urine Bilirubin Amorphous Sediment Urine Bacteria Urine Mucus Crossmatch 03/02/20 03/02/20 03/02/20 16:08 20:04 20:14 WBC RBC Hgb Hct MCV MCHC Plt Count Neutrophils # Lymphocytes # Metamyelocytes # (Man) Macrocytosis VBG pH VBG pCO2 VBG HCO3 Sodium Chloride Carbon Dioxide BUN Creatinine Glucose POC Glucose (mg/dL) 128 H 368 H 366 H Calcium Phosphorus Magnesium Iron TIBC % Saturation Creatine Kinase Vitamin B12 Urine Glucose (UA) Urine Ketones Urine Blood Urine Bilirubin Amorphous Sediment Urine Bacteria Urine Mucus Crossmatch 03/03/20 03/03/20 03/03/20 00:10 04:00 04:02 WBC RBC Hgb Hct MCV MCHC Plt Count Neutrophils # Lymphocytes # Metamyelocytes # (Man) Macrocytosis VBG pH VBG pCO2 VBG HCO3 Sodium Chloride Carbon Dioxide BUN Creatinine Glucose POC Glucose (mg/dL) 225 H 22 L 20 L Calcium Phosphorus Magnesium Iron TIBC % Saturation Creatine Kinase Vitamin B12 Urine Glucose (UA) Urine Ketones Urine Blood Urine Bilirubin Amorphous Sediment Urine Bacteria Urine Mucus Crossmatch 03/03/20 03/03/20 03/03/20 04:10 04:10 04:10 WBC RBC 2.57 L Hgb 7.5 L D Hct 24.1 L MCV MCHC Plt Count 97 L Neutrophils # Lymphocytes # Metamyelocytes # (Man) 0.17 H Macrocytosis VBG pH VBG pCO2 VBG HCO3 Sodium 148 H Chloride 119 H Carbon Dioxide BUN 39 H Creatinine 1.07 H Glucose 276 H POC Glucose (mg/dL) Calcium 8.0 L Phosphorus Magnesium Iron 14 L TIBC 192 L % Saturation 7.29 L Creatine Kinase Vitamin B12 1527.0 H Urine Glucose (UA) Urine Ketones Urine Blood Urine Bilirubin Amorphous Sediment Urine Bacteria Urine Mucus Crossmatch 03/03/20 03/03/20 03/03/20 04:13 04:46 05:22 WBC RBC Hgb Hct MCV MCHC Plt Count Neutrophils # Lymphocytes # Metamyelocytes # (Man) Macrocytosis VBG pH VBG pCO2 VBG HCO3 Sodium Chloride Carbon Dioxide BUN Creatinine Glucose POC Glucose (mg/dL) 205 H 106 H 61 L Calcium Phosphorus Magnesium Iron TIBC % Saturation Creatine Kinase Vitamin B12 Urine Glucose (UA) Urine Ketones Urine Blood Urine Bilirubin Amorphous Sediment Urine Bacteria Urine Mucus Crossmatch 03/03/20 03/03/20 03/03/20 05:39 06:10 07:01 WBC RBC Hgb Hct MCV MCHC Plt Count Neutrophils # Lymphocytes # Metamyelocytes # (Man) Macrocytosis VBG pH VBG pCO2 VBG HCO3 Sodium Chloride Carbon Dioxide BUN Creatinine Glucose POC Glucose (mg/dL) 279 H 129 H 65 L Calcium Phosphorus Magnesium Iron TIBC % Saturation Creatine Kinase Vitamin B12 Urine Glucose (UA) Urine Ketones Urine Blood Urine Bilirubin Amorphous Sediment Urine Bacteria Urine Mucus Crossmatch 03/03/20 03/03/20 03/03/20 07:16 08:06 10:13 WBC RBC Hgb Hct MCV MCHC Plt Count Neutrophils # Lymphocytes # Metamyelocytes # (Man) Macrocytosis VBG pH VBG pCO2 VBG HCO3 Sodium Chloride Carbon Dioxide BUN Creatinine Glucose POC Glucose (mg/dL) 275 H 127 H 64 L Calcium Phosphorus Magnesium Iron TIBC % Saturation Creatine Kinase Vitamin B12 Urine Glucose (UA) Urine Ketones Urine Blood Urine Bilirubin Amorphous Sediment Urine Bacteria Urine Mucus Crossmatch 03/03/20 03/03/20 03/03/20 10:40 12:25 13:31 WBC RBC Hgb Hct MCV MCHC Plt Count Neutrophils # Lymphocytes # Metamyelocytes # (Man) Macrocytosis VBG pH VBG pCO2 VBG HCO3 Sodium Chloride Carbon Dioxide BUN Creatinine Glucose POC Glucose (mg/dL) 206 H 132 H 133 H Calcium Phosphorus Magnesium Iron TIBC % Saturation Creatine Kinase Vitamin B12 Urine Glucose (UA) Urine Ketones Urine Blood Urine Bilirubin Amorphous Sediment Urine Bacteria Urine Mucus Crossmatch 03/03/20 03/03/20 03/03/20 15:25 17:21 18:02 WBC RBC Hgb Hct MCV MCHC Plt Count Neutrophils # Lymphocytes # Metamyelocytes # (Man) Macrocytosis VBG pH VBG pCO2 VBG HCO3 Sodium Chloride Carbon Dioxide BUN Creatinine Glucose POC Glucose (mg/dL) 133 H 200 H 254 H Calcium Phosphorus Magnesium Iron TIBC % Saturation Creatine Kinase Vitamin B12 Urine Glucose (UA) Urine Ketones Urine Blood Urine Bilirubin Amorphous Sediment Urine Bacteria Urine Mucus Crossmatch 03/03/20 03/03/20 03/04/20 19:13 22:34 01:05 WBC RBC Hgb Hct MCV MCHC Plt Count Neutrophils # Lymphocytes # Metamyelocytes # (Man) Macrocytosis VBG pH VBG pCO2 VBG HCO3 Sodium Chloride Carbon Dioxide BUN Creatinine Glucose POC Glucose (mg/dL) 236 H 254 H 106 H Calcium Phosphorus Magnesium Iron TIBC % Saturation Creatine Kinase Vitamin B12 Urine Glucose (UA) Urine Ketones Urine Blood Urine Bilirubin Amorphous Sediment Urine Bacteria Urine Mucus Crossmatch 03/04/20 03/04/20 03/04/20 04:45 04:45 04:47 WBC RBC 2.27 L Hgb 6.8 L* Hct 21.3 L MCV MCHC Plt Count 58 L Neutrophils # Lymphocytes # Metamyelocytes # (Man) Macrocytosis VBG pH VBG pCO2 VBG HCO3 Sodium Chloride 115 H Carbon Dioxide BUN 18 H Creatinine Glucose 260 H POC Glucose (mg/dL) 271 H Calcium 7.8 L Phosphorus Magnesium Iron TIBC % Saturation Creatine Kinase Vitamin B12 Urine Glucose (UA) Urine Ketones Urine Blood Urine Bilirubin Amorphous Sediment Urine Bacteria Urine Mucus Crossmatch Assessment and Plan Assessment: Toxic metabolic encephalopathy (DKA and right sided pneumonia) Seizure Right hemispheric stroke with residual left-sided weakness Symptomatic right ICA stenosis Asymptomatic left ICA stenosis Diabetic ketoacidosis Right sided pneumonia CORTES--resolved X tobacco use Hyperlipidemia Hypertension History of myocardial infarction or History of coronary artery disease Plan: Increased the Vimpat from 50 mg to 75 mg since she was supposed to be on 75 mg upon discharge from last visit. Continue Depakote 250 mg 3 times a day will not modify the medication since the patient has history of restless per the caregiver from last visit. I'll get a routine EEG to rule out any active seizure. Ordered ammonia level. Regarding the patient history of stroke continue aspirin 81 mg daily as well as Plavix 75mg daily for secondary stroke for prophylaxis. Currently on Atorvastatin 20 g daily and will increase to 80mg daily. Regarding the management of diabetic ketoacidosis defer it to the ICU and the primary team. We'll defer the management of pneumonia to ICU and primary team. Once the patient is stable then the will consider reconsulting the vascular team to address the patient ICA stenosis and the one the plan of revascularization. The plan was discussed with the patient nurse. Thank you for the consultation. Bairon Kearns M.D. Neuro-hospitalist Time with Patient: Greater than 30
[2020-03-04] MEDS: LACOSAMIDE IV 50 MG in SODIUM CHLORIDE 0.9% 50 ML IVPB SCH (12:22)
--- NOTE | 2020-03-04 14:12 | P.PN ---
Subjective Progress Note Date: 03/04/20 this is a 59-year-old female patient who came in with nausea vomiting and diarrhea and profound dehydration the patient wasiagnosed having DKA. She has previous history of CVA, hypertension, coronary artery dase, chronic kidney disease. The patient has had previous admissions for DKA. She was also d iagnosed having some bilateral low as the patient had bilateral lower lobe pulmonary infiltrate right more than left. She was given Levaquin and vancomycin. The patient was treated with an insulin drip regarding her DKA. She has multiple comorbidities. This morning, the patient is still on IV fl uids. She is on D5 half-normal saline with 20 mEq of potassium chloride the rate of 75 mL an hour. She had a follow-up blood work that showed resolution of her anion gap metabolic acidosis. A serum bicarbonate of 29 with anion gap of the right this point in time. Her hemoglobin was found to be at 6.8 and the patient was given a unit of packed RBC. No evidence of any bleeding at this point in time. The chest x-rays clear showing a right upper lobe consolidation/pneumonia. There is a central blood culture that showing also gram-positive cocci. Based on that, I kept the Levaquin and vancomycin and added clindamycin regarding the possibility of a right upper lobe aspiration pneumonia. The patient was also lethargic and confused and based on that and based on history of seizure activity, and neurology consultation was requested. Noted the patient was taking a combination of Vimpat and Depakote on outpatient basis. At this point in time she is unable to take her medications orally as the patient has failed a swallow bedside evaluation. The Depakote level has not been checked yet. Noted the patient also has a critical internal carotid artery stenosis on the left and the patient remains on aspirin on outpatient basis and vascular surgery has been requested to see this patient the past. Objective - Vital Signs Vital signs: Vital Signs Temp 98.4 F 03/04/20 12:44 Pulse 109 H 03/04/20 13:00 Resp 18 03/04/20 13:00 BP 135/72 03/04/20 13:00 Pulse Ox 86 L 03/04/20 13:00 Intake & Output 03/03/20 03/04/20 03/04/20 18:59 06:59 18:59 Intake Total 778 939 934 Output Total 1426 1795 1075 Balance -648 -856 -141 Weight 50.4 kg Intake: IV 778 939 624 D5-0.45% NaCl with KCl 745 903 600 20Meq/l 1,000 ml @ 150 mls/hr IV .Q6H40M [facility] Rx# :[id number] Pressure Bag 33 36 24 Blood Product 310 Rc As-3 Unit 310 [id number] Output: Urine 1426 1795 1075 Other: Voiding Method Indwelling Catheter Indwelling Catheter ABP, PAP, CO, CI - Last Documented Arterial Blood Pressure 115/82 - Exam Gen. appearance she is calm and comfortable likely distress and she is laying comfortably in bed Head exam was generally normal. There was no scleral icterus or corneal arcus. Mucous membranes were moist. Neck was supple and without jugular venous distension, thyromegaly, or carotid bruits. Carotids were easily palpable bilaterally. There was no adenopathy. Lungs were clear to auscultation and percussion, and with normal diaphragmatic excursion. No wheezes or rales were noted. Cardiac exam revealed the PMI to be normally situated and sized. The rhythm was regular and no extrasystoles were noted during several minutes of auscultation. The first and second heart sounds were normal and physiologic splitting of the second heart sound was noted. There were no murmurs, rubs, clicks, or gallops. Abdominal exam revealed normal bowel sounds. The abdomen was soft, non-tender, and without masses, organomegaly, or appreciable enlargement of the abdominal aorta. Examination of the extremities revealed easily palpable radial, femoral and pedal pulses. There was no cyanosis, clubbing or edema. Examination of the skin revealed no evidence of significant rashes, suspicious appearing nevi or other concerning lesions. The patient has had previous amputation of the toes on the left and the first second and the fifth toes are missing at this point in time. Neurologically the patient is awake and alert and oriented to self only. Cranial nerves were essentially intact. The patient had a weakness in the left upper extremity. Gait was not assessed. Reflexes were brisk over the left upper extremity. Babinski is upgoing on the left. - Labs CBC & Chem 7: 03/04/20 04:45 03/04/20 04:45 Labs: Abnormal Lab Results - Last 24 Hours (Table) 03/01/20 03/03/20 03/03/20 Range/Units 19:45 04:10 15:25 RBC (3.80-5.40) m/uL Hgb (11.4-16.0) gm/dL Hct (34.0-46.0) % Plt Count (150-450) k/uL Chloride (98-107) mmol/L BUN (7-17) mg/dL Glucose (74-99) mg/dL POC Glucose (mg/dL) 133 H (75-99) mg/dL Calcium (8.4-10.2) mg/dL Iron 14 L (50-170) ug/dL TIBC 192 L (228-460) ug/dL % Saturation 7.29 L (12.00-45.00) Vitamin B12 1527.0 H (200.0-944.0) pg/mL Crossmatch See Detail 03/03/20 03/03/20 03/03/20 Range/Units 17:21 18:02 19:13 RBC (3.80-5.40) m/uL Hgb (11.4-16.0) gm/dL Hct (34.0-46.0) % Plt Count (150-450) k/uL Chloride (98-107) mmol/L BUN (7-17) mg/dL Glucose (74-99) mg/dL POC Glucose (mg/dL) 200 H 254 H 236 H (75-99) mg/dL Calcium (8.4-10.2) mg/dL Iron (50-170) ug/dL TIBC (228-460) ug/dL % Saturation (12.00-45.00) Vitamin B12 (200.0-944.0) pg/mL Crossmatch 03/03/20 03/04/20 03/04/20 Range/Units 22:34 01:05 04:45 RBC 2.27 L (3.80-5.40) m/uL Hgb 6.8 L* (11.4-16.0) gm/dL Hct 21.3 L (34.0-46.0) % Plt Count 58 L (150-450) k/uL Chloride (98-107) mmol/L BUN (7-17) mg/dL Glucose (74-99) mg/dL POC Glucose (mg/dL) 254 H 106 H (75-99) mg/dL Calcium (8.4-10.2) mg/dL Iron (50-170) ug/dL TIBC (228-460) ug/dL % Saturation (12.00-45.00) Vitamin B12 (200.0-944.0) pg/mL Crossmatch 03/04/20 03/04/20 03/04/20 Range/Units 04:45 04:47 11:52 RBC (3.80-5.40) m/uL Hgb (11.4-16.0) gm/dL Hct (34.0-46.0) % Plt Count (150-450) k/uL Chloride 115 H (98-107) mmol/L BUN 18 H (7-17) mg/dL Glucose 260 H (74-99) mg/dL POC Glucose (mg/dL) 271 H 345 H (75-99) mg/dL Calcium 7.8 L (8.4-10.2) mg/dL Iron (50-170) ug/dL TIBC (228-460) ug/dL % Saturation (12.00-45.00) Vitamin B12 (200.0-944.0) pg/mL Crossmatch 03/04/20 Range/Units 11:53 RBC (3.80-5.40) m/uL Hgb (11.4-16.0) gm/dL Hct (34.0-46.0) % Plt Count (150-450) k/uL Chloride (98-107) mmol/L BUN (7-17) mg/dL Glucose (74-99) mg/dL POC Glucose (mg/dL) 347 H (75-99) mg/dL Calcium (8.4-10.2) mg/dL Iron (50-170) ug/dL TIBC (228-460) ug/dL % Saturation (12.00-45.00) Vitamin B12 (200.0-944.0) pg/mL Crossmatch Assessment and Plan Plan: 1 diabetic ketoacidosis, treated with an insulin drip, currently off the insulin drip and the patient's blood sugars being monitored. Anion gap has closed and the patient currently is on D5 half-normal saline today to 50 mL an hour in addition to ascites care coverage. 2 right-sided pneumonia mainly involving the right upper lobe, consider aspiration 3 diabetes mellitus with previous episodes of DKA 4 diabetic peripheral neuropathy, retinopathy 5 coronary artery disease with a preserved LV function based on echocardiogramfrom 2018 6 COPD 7 history of DVT , axilla , on the right 9 hyperlipidemia 10 hypertension 11 chronic kidney disease, with a component of an acute kidney injury, improved 12 peripheral artery disease 13 hypothyroidism 14 previous history of second toe infection/amputation and previous history of right foot infection requiring a wound VAC 15 CVA with someresidual left-sided weakness, and the CAT scan of the brain showed an old large right hemispheric infarcts. No other acute abnormality is seen. 16 history of seizures, maintained on a combination of Vimpat and Depakote on outpatient basis 17 chronic anemia, with interval drop in hemoglobin down to 6.8 and the patient will be receiving a unit of packed RBC 18 bipolar disorder, depression, anxiety 19 carotid artery stenosis, critical on the right 20 altered mental status and neurologist on the case Plan Consult neurology regarding the altered mentation Monitor the blood sugar and cover the patient with a slight scale coverage for now and may utilize long-acting insulin if needed Keep the patient nothing by mouth for now pending some improvement in the mental status and the swallowing ability Switch the patient's oral medication to IV including the Depakote and the Vimpat Give the patient unit of packed RBC A swallow evaluation later stage once the patient is more awake Continue current antibiotic coverage including a combination of Levaquin and clindamycin and vancomycin. The vancomycin can be dropped at a later stage if the blood culture turns out to be contaminant We'll continue to follow
--- NOTE | 2020-03-04 14:17 | CDI ---
Documentation Clarification Form Date: 03/11/2020 01:48:42 PM From: Janice Freeman RN CCDS Admit Date: 03/01/2020 08:15:00 PM Patient Name: Melva Jackson Visit Number: [id number] Discharge Date: ATTENTION: The Clinical Documentation Specialists (CDI) and [facility] Coding Staff appreciate your assistance in clarifying documentation. Please respond to the clarification below the line at the bottom and electronically sign. The CDI & [facility] Coding staff will review the response and follow-up if needed. Please note: Queries are made part of the Legal Health Record. If you have any questions, please contact the author of this message via ITS. Dr. Sherlyn Chen The patient presented with the nausea, vomiting and diarrhea History/Risk Factors: 59-year-old female presents to the ED via EMS for nausea, vomiting and diarrhea. Medical History: HTN, CAD, CKD, [place], CVA and Type 1 DM. Clinical Indicators: 03/01 Wbc 11.6 03/03 Blood cultures: Gram Positive Cocci 03/01 Vital signs on admission: B/P: 79/51; HR 75; RR: 18; Temp: 90.1 F Rectal; SpO2: 94% room air Treatment: 03/02 Critical Care Consult: Diabetic ketoacidosis, right sided pneumonia, rule out aspiration Antibiotics: 03/04 Clindamycin Ivpb q 6 hrs; 03/01 Levaquin Ivpb Daily, 03/03 Vancomycin Ivpb Q 12 hrs IV Bolus: 03/01 0.9ns 2L bolus In your professional opinion, please clarify if these findings signify one of the following conditions, whether the condition is POA, and cause, if known: Sepsis POA Severe Sepsis POA Septic Shock POA Sepsis Ruled out Other, please specify Unable to determine Identify the (suspected) organism Link or clarify if there is associated (due to/with): Organ failure Shock SIRS Criteria (2 or more of the following may indicate SIRS): -Temperature < 96.8F (36C) or > 101.0F (38.3C) -Heart Rate > 90 bpm -Respiratory Rate > 20 breaths/min or PaCO2 < 32 mmHg -White Blood Cell Count > 12,000 or < 4,000 cells/mm3 or > 10% bands -Lactate >2.0 mmol/L (>4.0 is equivalent to septic shock) (Last Revision: August 2017) MTDD
[2020-03-04] MEDS: ONDANSETRON 4 MG/2 ML VIAL IVP PRN (15:33)
--- NOTE | 2020-03-04 15:36 | EEG ---
ELECTROENCEPHALOGRAM REPORT This is a 59-year-old woman with a history of a stroke (right frontal temporoparietal region) and seizure who is admitted to the hospital on 03/01/2020 for diabetic ketoacidosis. Currently she has altered mental status during the hospital stay. This video EEG was obtained to evaluate for seizure and epileptiform activity. RELEVANT MEDICATION: Vimpat and Depakote. EEG TYPE: A routine 21-channel EEG was performed with video using the 10/20 electrode placement system. DESCRIPTION: Only wakefulness is obtained. During wakefulness, there is no posterior- dominant rhythm seen over both hemisphere. During unstimulated state, the left hemisphere background consists of low to moderate voltage of 6 to 7 hertz theta activity and sometimes intermixed with delta activity. During stimulated state, the left hemisphere background is consisted of mild to moderate voltage of polymorphic 1.5 to 2.5 hertz delta activity intermixed with theta activity. While there is continuos low to moderate voltage of 1 to 2 hertz delta activity that is polymorphic over the right frontal temporoparietal region. There is no physiological stage II sleep seen. There is significant myogenic artifact over the bilateral hemispheres since the patient was restless. INTERICTAL AND ICTAL: The patient had rare to occasional low to moderate sharp and slow waves over the right mid temporal region without any evolution to seizures. ACTIVATION PROCEDURES: Photic stimulation did not evoke a posterior driving response. Hyperventilation was not performed because of the patient's clinical history. CLINICAL INTERPRETATION: This is an abnormal routine awake EEG. The background slowing over the left hemisphere is consistent with mild to moderate encephalopathy. There is focal slowing over the right frontal temporal region consistent with the patient's history of prior stroke. The epileptiform discharges over the right temporal increase the risk of focal seizure. There is no seizure activity seen during the study. There is myogenic artifact obscuring the background during the study. Clinical correlation is recommended. MMODL / IJN: [id number] / MTDD
[2020-03-04 16:21] LABS: Glucose,Whole Blood 140 mg/dL (75-99)
[2020-03-04] MEDS ORDERED: ACETAMINOPHEN IV (For NPO) 1,000 MG in EMPTY BAG 1 BAG IVPB PRN (16:25)
[2020-03-04 17:04] LABS: Anisocytosis Slight; Basophils % (A) 0 %; Eosinophils % (A) 0 %; Lymphocytes # (A) 1.6 k/uL (1.0-4.8); Lymphocytes % (A) 22 %; MCHC 32.9 g/dL (31.0-37.0); MCV 91.2 fL (80.0-100.0); Mean Platelet Volume 8.3; Monocytes # (A) 0.3 k/uL (0-1.0); Monocytes % (A) 4 %; Neutrophils # (A) 5.5 k/uL (1.3-7.7); Neutrophils % (A) 73 %; RBC 3.18 m/uL (3.80-5.40); RDW 16.5 % (11.5-15.5); WBC 7.5 k/uL (3.8-10.6)
[2020-03-04 17:06] LABS: Platelet Count 53 k/uL (150-450)
[2020-03-04 17:07] LABS: HGB 9.5 gm/dL (11.4-16.0)
--- NOTE | 2020-03-04 18:47 | P.PN ---
Subjective Progress Note Date: 03/04/20 Melva Jackson, is a 59-year-old female who presented to [facility] emergency room due to nausea vomiting and diarrhea, and elevated glucose level, she was evaluated in the emergency room, her temperature on presentation was 90.1, pulse 75 respiration 18 blood pressure 79/51 pulse ox 94% on room air, her white blood count was elevated at 11.6 hemoglobin 9.6 platelet count 156, venous blood gas pH was 7.05 glucose level was 744 and serum acetone was positive, patient was admitted to ICU she was started on IV fluid and on IV insulin drip. Patient has a known history of insulin-dependent diabetes mellitus type 1 maintained on insulin he had previous episodes of DKA, she also had a history of stroke, history of hypertension, hyperlipidemia, coronary artery disease with myocardial infarction, peripheral vascular disease with multiple toe amputation, history of COPD. On review of systems patient is alert responsive in no apparent distress she was seen in ICU she is still complaining of nausea and occasional episodes of vomiting there is no fever or chills no headache or dizziness no chest pain no shortness of breath no cough she is having some abdominal discomfort no no burni ng with urination no frequency or urgency no hematuria. On 03/03/2020 patient remains in the intensive care unit. Patient does not appear in any kind of distress. She currently getting treated for pneumonia critical care services are following. Patient remains on Levaquin. Patient has been transitioned to subcu insulin patient did have episodes of low sugar this a.m. treated per protocol. On 03/04/2020 patient was seen and examined in the ICU, she was very drowsy this morning she failed swallow evaluation and is kept nothing by mouth at this time, now patient is more alert and responsive, glucose level is better controlled, she is complaining of low back pain otherwise she denies any complaints Objective - Vital Signs Vital signs: Vital Signs Temp 98.4 F 03/04/20 16:00 Pulse 102 H 03/04/20 18:00 Resp 15 03/04/20 18:00 BP 127/41 03/04/20 18:00 Pulse Ox 99 03/04/20 18:00 Intake & Output 03/03/20 03/04/20 03/04/20 18:59 06:59 18:59 Intake Total 449 598 6157 Output Total 1426 1795 1550 Balance -648 -856 46 Weight 50.4 kg Intake: IV 778 939 986 D5-0.45% NaCl with KCl 745 903 900 20Meq/l 1,000 ml @ 150 mls/hr IV .Q6H40M [facility] Rx# :[id number] Lacosamide IV 50 mg In 50 Sodium Chloride 0.9% 50 ml @ 100 mls/hr IVPB BID [facility] Rx#:[id number] Pressure Bag 33 36 36 Intake, IV Titration 300 Amount Clindamycin 300 mg In 100 Dextrose 5% in Water 50 ml @ 50 mls/hr IVPB Q6HR [facility] Rx#:[id number] Valproate Sodium 250 mg 200 In Sodium Chloride 0.9% 100 ml @ 100 mls/hr IVPB Q8HR [facility] Rx#:[id number] Blood Product 310 Rc As-3 Unit 310 [id number] Output: Urine 1426 1795 1550 Other: Voiding Method Indwelling Catheter Indwelling Catheter Indwelling Catheter ABP, PAP, CO, CI - Last Documented Arterial Blood Pressure 124/87 - Exam In general patient is alert responsive in no apparent distress HEENT head normocephalic and atraumatic Neck is supple no JVD no goiter no lymphadenopathy Chest exam reveals a few scattered rhonchi no wheezing Cardiac exam reveals regular heart sounds S1 and S2 with mild tachycardia no gallops no murmurs Abdomen is soft nontender no rigidity or rebound no palpable masses with hyperactive bowel sounds Extremity exam reveals no edema no cyanosis or clubbing Neurological examination reveals no gross new focal deficit - Labs CBC & Chem 7: 03/04/20 16:25 03/04/20 04:45 Labs: Abnormal Lab Results - Last 24 Hours (Table) 03/01/20 03/03/20 03/03/20 Range/Units 19:45 19:13 22:34 RBC (3.80-5.40) m/uL Hgb (11.4-16.0) gm/dL Hct (34.0-46.0) % RDW (11.5-15.5) % Plt Count (150-450) k/uL Chloride (98-107) mmol/L BUN (7-17) mg/dL Glucose (74-99) mg/dL POC Glucose (mg/dL) 236 H 254 H (75-99) mg/dL Calcium (8.4-10.2) mg/dL Crossmatch See Detail 03/04/20 03/04/20 03/04/20 Range/Units 01:05 04:45 04:45 RBC 2.27 L (3.80-5.40) m/uL Hgb 6.8 L* (11.4-16.0) gm/dL Hct 21.3 L (34.0-46.0) % RDW (11.5-15.5) % Plt Count 58 L (150-450) k/uL Chloride 115 H (98-107) mmol/L BUN 18 H (7-17) mg/dL Glucose 260 H (74-99) mg/dL POC Glucose (mg/dL) 106 H (75-99) mg/dL Calcium 7.8 L (8.4-10.2) mg/dL Crossmatch 03/04/20 03/04/20 03/04/20 Range/Units 04:47 11:52 11:53 RBC (3.80-5.40) m/uL Hgb (11.4-16.0) gm/dL Hct (34.0-46.0) % RDW (11.5-15.5) % Plt Count (150-450) k/uL Chloride (98-107) mmol/L BUN (7-17) mg/dL Glucose (74-99) mg/dL POC Glucose (mg/dL) 271 H 345 H 347 H (75-99) mg/dL Calcium (8.4-10.2) mg/dL Crossmatch 03/04/20 03/04/20 Range/Units 16:04 16:25 RBC 3.18 L (3.80-5.40) m/uL Hgb 9.5 L D (11.4-16.0) gm/dL Hct 29.0 L (34.0-46.0) % RDW 16.5 H (11.5-15.5) % Plt Count 53 L (150-450) k/uL Chloride (98-107) mmol/L BUN (7-17) mg/dL Glucose (74-99) mg/dL POC Glucose (mg/dL) 140 H (75-99) mg/dL Calcium (8.4-10.2) mg/dL Crossmatch Assessment and Plan Plan: 1. Acute diabetic ketoacidosis with severe hyperglycemia and positive serum acetone patient is improving with IV fluid and IV insulin drip 2. Underlying history of diabetes mellitus type 1 maintained on insulin, her primary care provider is No Bowden, she was contacted and she stated that she was recently hospitalized at [facility], a different relative was caring for patient and apparently glucose level has been extremely elevated for several days. 3. Underlying history of hypertension 4. Underlying history of hyperlipidemia 5. Underlying history of seizure disorder, will place patient on IV Keppra until she is able to take her oral medications 6. Underlying history of COPD stable no evidence of exacerbation 7. Underlying history of coronary artery disease stable at this time patient denies any chest pain 8. Underlying history of peripheral vascular disease with previous history of multiple toe amputations 9. Previous history of stroke. At this time patient is admitted to intensive care unit continue with IV fluids and insulin management Home medication reviewed, will be switched to IV medications when possible due to continuous nausea and vomiting at this time Pulmonary critical care are following
[2020-03-04 19:57] LABS: Glucose,Whole Blood 388 mg/dL (75-99)
--- NOTE | 2020-03-04 21:34 | XR ---
Lumbar spine HISTORY: Low back pain 3 views the lumbar spine, correlation to prior exam 07/25/2012 There is a gentle spinal curvature. Lumbar vertebral bodies show preserved height, alignment, and bon e mineralization. Some mild multilevel spondylosis is present, some loss of disc height L4-5 and L5-S 1. Atherosclerotic vascular calcifications are present. IMPRESSION: Degenerative disc disease.
[2020-03-04] MEDS: ATORVASTATIN 80 MG TAB PO SCH (22:03)
[2020-03-04] MEDS: QUEtiapine 100 MG TAB PO SCH (22:03)
[2020-03-05] MEDS ORDERED: VANCOMYCIN TROUGH DUE 1 EACH MISC MISCELLANE ONE
[2020-03-05 00:05] LABS: Glucose,Whole Blood 211 mg/dL (75-99)
[2020-03-05] MEDS: INSULIN ASPART (NovoLOG) 100 UNIT/ML VIAL SQ SCH ×6 (00:17→20:19)
[2020-03-05 03:57] LABS: Glucose,Whole Blood 121 mg/dL (75-99)
--- NOTE | 2020-03-05 06:36 | XR ---
EXAMINATION TYPE: XR chest 1V portable DATE OF EXAM: 03/05/2020 CLINICAL HISTORY: Difficulty breathing progress study. TECHNIQUE: Single AP portable upright view of the chest is obtained. COMPARISON: Chest x-ray from 2 days earlier and older studies. FINDINGS: Stable left internal jugular central venous catheter. Persistent right upper lobe acute inf iltrate slightly improved from most recent x-ray. There is worsened lateral right basilar airspace op acity however. Left lung remains clear. Cardiac silhouette size stable and within normal limits. Osse ous structures are intact. IMPRESSION: Persistent but improving right upper lobe acute infiltrate. Worsening lateral right basil ar acute infiltrate.
[2020-03-05] MEDS: CLINDAMYCIN 300 MG in DEXTROSE 5% IN WATER 50 ML IVPB SCH ×6 (06:58→17:42)
[2020-03-05 08:09] LABS: Anisocytosis Slight; Basophils % (A) 0 %; Eosinophils % (A) 0 %; HCT 29.2 % (34.0-46.0); HGB 9.2 gm/dL (11.4-16.0); Hypochromasia Slight; Lymphocytes % (A) 11 %; MCH 29.6 pg (25.0-35.0); MCHC 31.5 g/dL (31.0-37.0); MCV 93.8 fL (80.0-100.0); Mean Platelet Volume 8.4; Monocytes # (A) 0.3 k/uL (0-1.0); Monocytes % (A) 3 %; Neutrophils # (A) 7.6 k/uL (1.3-7.7); Neutrophils % (A) 84 %; RBC 3.11 m/uL (3.80-5.40); RDW 16.5 % (11.5-15.5)
[2020-03-05 08:16] LABS: Platelet Count 48 k/uL (150-450)
[2020-03-05 08:20] LABS: ALT 18 U/L (4-34); AST 19 U/L (14-36); African American GFR (CKD) >90 (>60 ml/min/1.73 sqM); Albumin 2.5 g/dL (3.5-5.0); Alkaline Phosphatase 73 U/L (38-126); Anion Gap 7 mmol/L; Blood Urea Nitrogen 12 mg/dL (7-17); Calcium 8.1 mg/dL (8.4-10.2); Carbon Dioxide 26 mmol/L (22-30); Chloride 107 mmol/L (98-107); Glucose 425 mg/dL (74-99); Non-African American GFR(CKD) >90 (>60 ml/min/1.73 sqM); Potassium 3.9 mmol/L (3.5-5.1); Sodium 140 mmol/L (137-145); Total Bilirubin 0.8 mg/dL (0.2-1.3); Total Protein 5.3 g/dL (6.3-8.2)
[2020-03-05] MEDS: IPRATROPIUM-ALBUTEROL 3 ML NEB INHALATION SCH ×4 (08:39→19:19)
--- NOTE | 2020-03-05 09:00 | CDI ---
Documentation Clarification Form Date: 03/11/2020 01:48:42 PM From: Janice Freeman RN CCDS Admit Date: 03/01/2020 08:15:00 PM Patient Name: Melva Jackson Visit Number: [id number] Discharge Date: ATTENTION: The Clinical Documentation Specialists (CDI) and [facility] Coding Staff appreciate your assistance in clarifying documentation. Please respond to the clarification below the line at the bottom and electronically sign. The CDI & [facility] Coding staff will review the response and follow-up if needed. Please note: Queries are made part of the Legal Health Record. If you have any questions, please contact the author of this message via ITS. Dr. Sherlyn Chen The patient presented with the nausea, vomiting and diarrhea History/Risk Factors: 59-year-old female presents to the ED via EMS for nausea, vomiting and diarrhea. Medical History: HTN, CAD, CKD, [place], CVA and Type 1 DM. Clinical Indicators: 03/01 Wbc 11.6 03/03 Blood cultures: Gram Positive Cocci 03/01 Vital signs on admission: B/P: 79/51; HR 75; RR: 18; Temp: 90.1 F Rectal; SpO2: 94% room air Treatment: 03/02 Critical Care Consult: Diabetic ketoacidosis, right sided pneumonia, rule out aspiration Antibiotics: 03/04 Clindamycin Ivpb q 6 hrs; 03/01 Levaquin Ivpb Daily, 03/03 Vancomycin Ivpb Q 12 hrs IV Bolus: 03/01 0.9ns 2L bolus In your professional opinion, please clarify if these findings signify one of the following conditions, whether the condition is POA, and cause, if known: Sepsis POA Severe Sepsis POA Septic Shock POA Sepsis Ruled out Other, please specify Unable to determine Identify the (suspected) organism Link or clarify if there is associated (due to/with): Organ failure Shock SIRS Criteria (2 or more of the following may indicate SIRS): -Temperature < 96.8F (36C) or > 101.0F (38.3C) -Heart Rate > 90 bpm -Respiratory Rate > 20 breaths/min or PaCO2 < 32 mmHg -White Blood Cell Count > 12,000 or < 4,000 cells/mm3 or > 10% bands -Lactate >2.0 mmol/L (>4.0 is equivalent to septic shock) (Last Revision: August 2017) sepsis present on admission related to aspiration pneumonia MTDD
[2020-03-05] MEDS: METOCLOPRAMIDE 10 MG TAB PO SCH ×3 (09:19→16:43)
[2020-03-05 09:21] LABS: Glucose,Whole Blood 483 mg/dL (75-99)
[2020-03-05] MEDS: VALPROATE SODIUM 250 MG in SODIUM CHLORIDE 0.9% 100 ML IVPB SCH ×2 (09:21→16:42)
[2020-03-05] MEDS: CLOPIDOGREL 75 MG TAB PO SCH (09:21)
[2020-03-05] MEDS: ASPIRIN 81 MG PO SCH (09:21)
[2020-03-05] MEDS: LEVOFLOXACIN 250MG-D5W PMX 250 MG in DEXTROSE/WATER 1 50ML.BAG IVPB SCH (09:22)
[2020-03-05] MEDS: LOSARTAN 50 MG TAB PO SCH (09:22)
[2020-03-05] MEDS: D5-0.45% NACL WITH KCL 20MEQ/L 1,000 ML IV SCH ×2 (09:22→16:40)
[2020-03-05] MEDS: DULoxetine HCL 60 MG CAPSULE.DR PO SCH (09:22)
[2020-03-05] MEDS: QUEtiapine 25 MG TAB PO SCH ×2 (09:22→20:19)
[2020-03-05] MEDS: SODIUM CHLORIDE 0.9% IVPB SCH ×2 (09:46→23:14)
[2020-03-05] MEDS: LACOSAMIDE IVPB SCH ×2 (09:46→23:14)
[2020-03-05 10:01] LABS: Glucose,Whole Blood 425 mg/dL (75-99)
--- NOTE | 2020-03-05 10:21 | P.PN ---
Subjective Progress Note Date: 03/05/20 Patient was seen at bedside and per the patient's nurse She seems to be doing got somewhat better today compared to yesterday mentation-mckeon. She has failed her swallow and she is getting barium swallow test today. Otherwise no seizure-like activity the or episodes of loss of consciousness during hospital stay. Objective - Vital Signs Vital signs: Vital Signs Temp 98.2 F 03/05/20 08:00 Pulse 101 H 03/05/20 09:00 Resp 21 03/05/20 09:00 BP 161/77 03/05/20 09:00 Pulse Ox 96 03/05/20 09:00 Intake & Output 03/04/20 03/05/20 03/05/20 18:59 06:59 18:59 Intake Total 1596 1486 384 Output Total 1550 1865 800 Balance 46 -379 -416 Intake: IV 986 1486 234 Clindamycin 300 mg In 50 Dextrose 5% in Water 50 ml @ 50 mls/hr IVPB Q6HR [facility] Rx#:[id number] D5-0.45% NaCl with KCl 900 900 175 20Meq/l 1,000 ml @ 50 mls /hr IV .Q20H [facility] Rx#: [id number] Dextrose 5%-0.9% NaCl 1, 350 50 000 ml @ 50 mls/hr IV . Q20H [facility] Rx#:[id number] Lacosamide IV 50 mg In 50 50 Sodium Chloride 0.9% 50 ml @ 100 mls/hr IVPB BID [facility] Rx#:[id number] Pressure Bag 36 36 9 Valproate Sodium 250 mg 100 In Sodium Chloride 0.9% 100 ml @ 100 mls/hr IVPB Q8HR [facility] Rx#:[id number] Intake, IV Titration 300 150 Amount Clindamycin 300 mg In 100 Dextrose 5% in Water 50 ml @ 50 mls/hr IVPB Q6HR [facility] Rx#:[id number] Lacosamide IV 75 mg In 50 Sodium Chloride 0.9% 50 ml @ 100 mls/hr IVPB BID [facility] Rx#:[id number] Valproate Sodium 250 mg 200 100 In Sodium Chloride 0.9% 100 ml @ 100 mls/hr IVPB Q8HR [facility] Rx#:[id number] Blood Product 310 Rc As-3 Unit 310 [id number] Output: Urine 1550 1865 800 Other: Voiding Method Indwelling Catheter Indwelling Catheter Indwelling Catheter ABP, PAP, CO, CI - Last Documented Arterial Blood Pressure 133/116 - Exam GENERAL: The patient is lying in bed and is not in acute distress. She seems restless. CHEST: The heart rate is regular rate rhythm. No murmurs to auscultation. LUNG: Clear to auscultation bilaterally no wheezing noted throughout. Not labored breathing. ABDOMEN/GI: Bowel sounds present in all 4 quadrants. No tenderness to palpation throughout. NEUROLOGICAL: Higher mental function: The patient is awake, alert, oriented to self, place and time. Patient is following simple commands. No aphasia and no neglect. Cranial nerves: The pupils are round, equal (4mm bilaterally) and reactive to light.. Visual campuzano are Left Homonymous lower visual field cut to threat. Extraocular movement is intact no nystagmus is noted. Facial sensation unable to assess because of patient cooperation. The facial strength: left nasolabial flattening . Hearing is normal bilaterally to hand rub. Tongue is midline and moved [id number] without any difficulty. No dysarthria is noted. Shoulder unable to assess because of coopoeration. Motor: Gait is defered. Right upper and lower extremity is 5/5. Left upper extremity is 0/5. Left lower extremity is 4+/5. Increased tone of left upper extremity especially at hand. Cerebellum: Unable to assess because of patient cooperation. Sensation: Unable to assess because of cooperation. Reflexes (right/left): Brisk over the left upper extremity (3+) otherwise 1+ throughout. Plantars: Unable to assess right foot since digit 1-2 are amputated (as well as 5th digit). Left is upgoing. - Labs CBC & Chem 7: 03/05/20 07:50 03/05/20 07:50 Labs: Abnormal Lab Results - Last 24 Hours (Table) 03/01/20 03/04/20 03/04/20 Range/Units 19:45 11:52 11:53 RBC (3.80-5.40) m/uL Hgb (11.4-16.0) gm/dL Hct (34.0-46.0) % RDW (11.5-15.5) % Plt Count (150-450) k/uL Glucose (74-99) mg/dL POC Glucose (mg/dL) 345 H 347 H (75-99) mg/dL Calcium (8.4-10.2) mg/dL Total Protein (6.3-8.2) g/dL Albumin (3.5-5.0) g/dL Crossmatch See Detail 03/04/20 03/04/20 03/04/20 Range/Units 16:04 16:25 19:55 RBC 3.18 L (3.80-5.40) m/uL Hgb 9.5 L D (11.4-16.0) gm/dL Hct 29.0 L (34.0-46.0) % RDW 16.5 H (11.5-15.5) % Plt Count 53 L (150-450) k/uL Glucose (74-99) mg/dL POC Glucose (mg/dL) 140 H 388 H (75-99) mg/dL Calcium (8.4-10.2) mg/dL Total Protein (6.3-8.2) g/dL Albumin (3.5-5.0) g/dL Crossmatch 03/05/20 03/05/20 03/05/20 Range/Units 00:02 03:55 07:50 RBC 3.11 L (3.80-5.40) m/uL Hgb 9.2 L (11.4-16.0) gm/dL Hct 29.2 L (34.0-46.0) % RDW 16.5 H (11.5-15.5) % Plt Count 48 L (150-450) k/uL Glucose (74-99) mg/dL POC Glucose (mg/dL) 211 H 121 H (75-99) mg/dL Calcium (8.4-10.2) mg/dL Total Protein (6.3-8.2) g/dL Albumin (3.5-5.0) g/dL Crossmatch 03/05/20 03/05/20 03/05/20 Range/Units 07:50 09:15 09:59 RBC (3.80-5.40) m/uL Hgb (11.4-16.0) gm/dL Hct (34.0-46.0) % RDW (11.5-15.5) % Plt Count (150-450) k/uL Glucose 425 H (74-99) mg/dL POC Glucose (mg/dL) 483 H 425 H (75-99) mg/dL Calcium 8.1 L (8.4-10.2) mg/dL Total Protein 5.3 L (6.3-8.2) g/dL Albumin 2.5 L (3.5-5.0) g/dL Crossmatch Assessment and Plan Assessment: Toxic metabolic encephalopathy (DKA and right sided pneumonia)--improving Seizure Right hemispheric stroke with residual left-sided weakness Right ICA occlusion. Asymptomatic left ICA stenosis Diabetic ketoacidosis Right sided pneumonia CORTES--resolved X tobacco use Hyperlipidemia Hypertension History of myocardial infarction or History of coronary artery disease Plan: Continue Vimpat 75 mg bid. Continue Depakote 250 mg 3 times a day will not modify the medication since the patient has history of restless per the caregiver from last visit. Routine EEG: The background slowing over the left hemisphere is consistent with mild to moderate encephalopathy. The focal slwoing over the right [id number]-[id number] region is consistent with patient history of Right MCA stroke. There is rare to occasional slowing over the right mid-temporal which can increase risk of focal epilepsy. There is no active seizure. Ammonia level: <9. Regarding the patient history of stroke continue aspirin 81 mg daily as well as Plavix 75mg daily for secondary stroke for prophylaxis (dual antiplatelet since has ICA stenosis and occlusion). Continue Atorvastatin 80 mg daily. Regarding the management of diabetic ketoacidosis defer it to the ICU and the primary team. We'll defer the management of pneumonia to ICU and primary team. patient was seen by Dr. Edilson Marcos for right ICA occlusion 02/02/20. Dr. Marcos I recommended that carotid duplex and was completed on 02/02/20 and reported as chronic occlusion of the right ICA. Moderate atherosclerotic change of the left bifurcation without hemodynamic significant stenosis. Recommend the patient to follow-up with Dr. Marcos or his colleagues as an outpatient. The plan was discussed with the patient nurse. Bairon Kearns M.D. Neuro-hospitalist Time with Patient: Less than 30
[2020-03-05 10:45] VITALS: BMI 20.3
--- NOTE | 2020-03-05 12:03 | P.PN ---
Subjective Progress Note Date: 03/05/20 this is a 59-year-old female patient who came in with nausea vomiting and diarrhea and profound dehydration the patient wasiagnosed having DKA. She has previous history of CVA, hypertension, coronary artery dase, chronic kidney disease. The patient has had previous admissions for DKA. She was also kaitlin gnosed having some bilateral low as the patient had bilateral lower lobe pulmonary infiltrate right more than left. She was given Levaquin and vancomycin. The patient was treated with an insulin drip regarding her DKA. She has multiple comorbidities. This morning, the patient is still on IV flui ds. She is on D5 half-normal saline with 20 mEq of potassium chloride the rate of 75 mL an hour. She had a follow-up blood work that showed resolution of her anion gap metabolic acidosis. A serum bicarbonate of 29 with anion gap of the right this point in time. Her hemoglobin was found to be at 6.8 and the patient was given a unit of packed RBC. No evidence of any bleeding at this point in ti me. The chest x-rays clear showing a right upper lobe consolidation/pneumonia. There is a central blood culture that showing also gram-positive cocci. Based on that, I kept the Levaquin and vancomycin and added clindamycin regarding the possibility of a right upper lobe aspiration pneumonia. The patient was also lethargic and confused and based on that and based on history of seizure activity, and neurology consultation was requested. Noted the patient was taking a combination of Vimpat and Depakote on outpatient basis. At this point in time she is unable to take her medications orally as the patient has failed a swallow bedside evaluation. The Depakote level has not been checked yet. Noted the patient also has a critical internal carotid artery stenosis on the left and the patient remains on aspirin on outpatient basis and vascular surgery has been requested to see this patient the past. On 03/05/2020, the patient is doing well. She is much more awake and alert compared to yesterday. His swallow evaluation will be repeated today. The patient seems to be able to pass her swallow evaluation patient is currently on 2 L about 2 by nasal cannula with a pulse of 97%. She was on a D5 half-normal saline at the rate of 150 mL an hour and this can be obviously cut down further. Chest exit shows improvement in the right upper lobe pneumonia as the patient is a combination of Levaquin and clindamycin. No cough. No sputum production. No chest that is no wheezing. The neurologist evaluated the patient and the patient had an EGD that showed no evidence of any seizure activity and will continue the antiepileptic medication which include a combination of Vimpat 75 mg by mouth twice a day and Depakote 250 mg 3 times a day. The patient would also need a follow-up evaluation with vascular surgery regarding her carotid artery stenosis which is significant on the left. Objective - Vital Signs Vital signs: Vital Signs Temp 98.2 F 03/05/20 08:00 Pulse 101 H 03/05/20 11:49 Resp 19 03/05/20 11:00 BP 130/72 03/05/20 11:00 Pulse Ox 93 L 03/05/20 11:00 Intake & Output 03/04/20 03/05/20 03/05/20 18:59 06:59 18:59 Intake Total 1596 1486 490 Output Total 1550 1865 1200 Balance 46 -379 -710 Weight 50.4 kg Intake: IV 986 1486 340 Clindamycin 300 mg In 50 Dextrose 5% in Water 50 ml @ 50 mls/hr IVPB Q6HR [facility] Rx#:[id number] D5-0.45% NaCl with KCl 900 900 275 20Meq/l 1,000 ml @ 50 mls /hr IV .Q20H [facility] Rx#: [id number] Dextrose 5%-0.9% NaCl 1, 350 50 000 ml @ 50 mls/hr IV . Q20H [facility] Rx#:[id number] Lacosamide IV 50 mg In 50 50 Sodium Chloride 0.9% 50 ml @ 100 mls/hr IVPB BID [facility] Rx#:[id number] Pressure Bag 36 36 15 Valproate Sodium 250 mg 100 In Sodium Chloride 0.9% 100 ml @ 100 mls/hr IVPB Q8HR [facility] Rx#:[id number] Intake, IV Titration 300 150 Amount Clindamycin 300 mg In 100 Dextrose 5% in Water 50 ml @ 50 mls/hr IVPB Q6HR [facility] Rx#:[id number] Lacosamide IV 75 mg In 50 Sodium Chloride 0.9% 50 ml @ 100 mls/hr IVPB BID [facility] Rx#:[id number] Valproate Sodium 250 mg 200 100 In Sodium Chloride 0.9% 100 ml @ 100 mls/hr IVPB Q8HR [facility] Rx#:[id number] Blood Product 310 Rc As-3 Unit 310 [id number] Output: Urine 1550 1865 1200 Other: Voiding Method Indwelling Catheter Indwelling Catheter Indwelling Catheter ABP, PAP, CO, CI - Last Documented Arterial Blood Pressure 92/57 - Exam Gen. appearance she is calm and comfortable likely distress and she is laying comfortably in bed Head exam was generally normal. There was no scleral icterus or corneal arcus. Mucous membranes were moist. Neck was supple and without jugular venous distension, thyromegaly, or carotid bruits. Carotids were easily palpable bilaterally. There was no adenopathy. Lungs were clear to auscultation and percussion, and with normal diaphragmatic excursion. No wheezes or rales were noted. Cardiac exam revealed the PMI to be normally situated and sized. The rhythm was regular and no extrasystoles were noted during several minutes of auscultation. The first and second heart sounds were normal and physiologic splitting of the second heart sound was noted. There were no murmurs, rubs, clicks, or gallops. Abdominal exam revealed normal bowel sounds. The abdomen was soft, non-tender, and without masses, organomegaly, or appreciable enlargement of the abdominal aorta. Examination of the extremities revealed easily palpable radial, femoral and pedal pulses. There was no cyanosis, clubbing or edema. Examination of the skin revealed no evidence of significant rashes, suspicious appearing nevi or other concerning lesions. The patient has had previous amputation of the toes on the left and the first second and the fifth toes are missing at this point in time. Neurologically the patient is awake and alert and oriented and she is alert and oriented 3 on today's evaluation.. Cranial nerves were essentially intact. The patient had a weakness in the left upper extremity. Gait was not assessed. Reflexes were brisk over the left upper extremity. Babinski is upgoing on the left. - Labs CBC & Chem 7: 03/05/20 07:50 03/05/20 07:50 Labs: Abnormal Lab Results - Last 24 Hours (Table) 03/01/20 03/04/20 03/04/20 Range/Units 19:45 16:04 16:25 RBC 3.18 L (3.80-5.40) m/uL Hgb 9.5 L D (11.4-16.0) gm/dL Hct 29.0 L (34.0-46.0) % RDW 16.5 H (11.5-15.5) % Plt Count 53 L (150-450) k/uL Glucose (74-99) mg/dL POC Glucose (mg/dL) 140 H (75-99) mg/dL Calcium (8.4-10.2) mg/dL Total Protein (6.3-8.2) g/dL Albumin (3.5-5.0) g/dL Crossmatch See Detail 03/04/20 03/05/20 03/05/20 Range/Units 19:55 00:02 03:55 RBC (3.80-5.40) m/uL Hgb (11.4-16.0) gm/dL Hct (34.0-46.0) % RDW (11.5-15.5) % Plt Count (150-450) k/uL Glucose (74-99) mg/dL POC Glucose (mg/dL) 388 H 211 H 121 H (75-99) mg/dL Calcium (8.4-10.2) mg/dL Total Protein (6.3-8.2) g/dL Albumin (3.5-5.0) g/dL Crossmatch 03/05/20 03/05/20 03/05/20 Range/Units 07:50 07:50 09:15 RBC 3.11 L (3.80-5.40) m/uL Hgb 9.2 L (11.4-16.0) gm/dL Hct 29.2 L (34.0-46.0) % RDW 16.5 H (11.5-15.5) % Plt Count 48 L (150-450) k/uL Glucose 425 H (74-99) mg/dL POC Glucose (mg/dL) 483 H (75-99) mg/dL Calcium 8.1 L (8.4-10.2) mg/dL Total Protein 5.3 L (6.3-8.2) g/dL Albumin 2.5 L (3.5-5.0) g/dL Crossmatch 03/05/20 Range/Units 09:59 RBC (3.80-5.40) m/uL Hgb (11.4-16.0) gm/dL Hct (34.0-46.0) % RDW (11.5-15.5) % Plt Count (150-450) k/uL Glucose (74-99) mg/dL POC Glucose (mg/dL) 425 H (75-99) mg/dL Calcium (8.4-10.2) mg/dL Total Protein (6.3-8.2) g/dL Albumin (3.5-5.0) g/dL Crossmatch Microbiology - Last 24 Hours (Table) 03/01/20 19:45 Blood Culture Gram Stain - Preliminary Blood Blood Culture - Preliminary Gram Positive Cocci Isolated Assessment and Plan Plan: 1 diabetic ketoacidosis, recovered and the patient is currently on D5 half- normal saline at the rate of 150 mL an hour. Long-acting insulin has not been started as the patient has not passed her swallow evaluation and she hasn't been 2 right-sided pneumonia mainly involving the right upper lobe, consider aspiration, and the patient is currently on accommodation of Levaquin and clindamycin and there is improvement in the right upper lobe consolidation on today's chest x-ray findings. 3 diabetes mellitus with previous episodes of DKA 4 diabetic peripheral neuropathy, retinopathy 5 coronary artery disease with a preserved LV function based on echocardiogramfrom 2018 6 COPD 7 history of DVT , axilla , on the right 9 hyperlipidemia 10 hypertension 11 chronic kidney disease, with a component of an acute kidney injury, improved 12 peripheral artery disease 13 hypothyroidism 14 previous history of second toe infection/amputation and previous history of right foot infection requiring a wound VAC 15 CVA with someresidual left-sided weakness, and the CAT scan of the brain showed an old large right hemispheric infarcts. No other acute abnormality is seen. 16 history of seizures, maintained on a combination of Vimpat and Depakote on outpatient basis 17 chronic anemia, with interval drop in hemoglobin down to 6.8 and the patient will be receiving a unit of packed RBC and follow-up hemoglobin is at 9.2 18 bipolar disorder, depression, anxiety 19 carotid artery stenosis, critical on the right 20 altered mental status and neurologist on the case, and the patient is clinically improving and seizure activity has been ruled out. plan complete a swallow evaluation If this patient is able to passed a swallow eval, we are going to restart the long-acting insulin and the slight scale coverage. Will also switch the antiepileptic medication to oral once the patient is able to swallow appropriately. Continue same antibiotic coverage. We'll resume the home oral medications the patient is able to swallow properly. Neurology consultation appreciated and the patient has no ongoing seizure activity at this point in time We'll continue to follow.
[2020-03-05 12:50] LABS: Glucose,Whole Blood 305 mg/dL (75-99)
--- NOTE | 2020-03-05 12:50 | FL ---
EXAMINATION TYPE: FL barium swallow w video DATE OF EXAM: 03/05/2020 MODIFIED SWALLOW / DEGLUTITION STUDY CLINICAL HISTORY: Dysphagia. TECHNIQUE: Deglutition study is performed utilizing honey and nectar thick liquid barium and barium thick applesauce. COMPARISON: None. FINDINGS: Suboptimal as patient unable to hold still. The oral and pharyngeal phases show mild delay in initiation and propagation with all modalities tested. There is deep penetration with nectar thic k liquid barium, patient clears with coughing. There is subsequent silent aspiration which does not i nitiate cough reflex. Other more viscous modalities show no penetration or aspiration. [id number] te pharyngeal residuals noted of more viscous modalities tested. IMPRESSION: Aspiration of nectar thick liquid barium. Please refer to speech therapist notes for fur ther details if necessary.
[2020-03-05 16:34] LABS: Glucose,Whole Blood 117 mg/dL (75-99)
[2020-03-05] MEDS: SODIUM CHLORIDE 0.9% 1,000 ML IV SCH (16:43)
--- NOTE | 2020-03-05 18:49 | P.PN ---
Subjective Progress Note Date: 03/05/20 Melva Jackson, is a 59-year-old female who presented to [facility] emergency room due to nausea vomiting and diarrhea, and elevated glucose level, she was evaluated in the emergency room, her temperature on presentation was 90.1, pulse 75 respiration 18 blood pressure 79/51 pulse ox 94% on room air, her white blood count was elevated at 11.6 hemoglobin 9.6 platelet count 156, venous blood gas pH was 7.05 glucose level was 744 and serum acetone was positive, patient was admitted to ICU she was started on IV fluid and on IV insulin drip. Patient has a known history of insulin-dependent diabetes mellitus type 1 maintained on insulin he had previous episodes of DKA, she also had a history of stroke, history of hypertension, hyperlipidemia, coronary artery disease with myocardial infarction, peripheral vascular disease with multiple toe amputation, history of COPD. On review of systems patient is alert responsive in no apparent distress she was seen in ICU she is still complaining of nausea and occasional episodes of vomiting there is no fever or chills no headache or dizziness no chest pain no shortness of breath no cough she is having some abdominal discomfort no no burni ng with urination no frequency or urgency no hematuria. On 03/03/2020 patient remains in the intensive care unit. Patient does not appear in any kind of distress. She currently getting treated for pneumonia critical care services are following. Patient remains on Levaquin. Patient has been transitioned to subcu insulin patient did have episodes of low sugar this a.m. treated per protocol. On 03/04/2020 patient was seen and examined in the ICU, she was very drowsy this morning she failed swallow evaluation and is kept nothing by mouth at this time, now patient is more alert and responsive, glucose level is better controlled, she is complaining of low back pain otherwise she denies any complaints. On 03/05/2020 patient was seen and examined in the ICU she is more alert and responsive at this time she is complaining of feeling hungry however she failed swallow evaluation again this morning otherwise she denies any complaints there is no fever or chills no headache or dizziness no chest pain no shortness of breath no cough no nausea or vomiting no abdominal pain no diarrhea and no urinary symptoms. At this time plan is to repeat swallow evaluation in the morning again before discussing alternative feeding options. Objective - Vital Signs Vital signs: Vital Signs Temp 98.2 F 03/05/20 12:00 Pulse 92 03/05/20 16:27 Resp 18 03/05/20 16:27 BP 112/57 03/05/20 14:00 Pulse Ox 98 03/05/20 14:00 Intake & Output 03/04/20 03/05/20 03/05/20 18:59 06:59 18:59 Intake Total 1596 1486 649 Output Total 1550 1865 1550 Balance 46 379 901 Weight 50.4 kg Intake: IV 986 1486 499 Clindamycin 300 mg In 50 Dextrose 5% in Water 50 ml @ 50 mls/hr IVPB Q6HR [facility] Rx#:[id number] D5-0.45% NaCl with KCl 900 900 275 20Meq/l 1,000 ml @ 50 mls /hr IV .Q20H [facility] Rx#: [id number] Dextrose 5%-0.9% NaCl 1, 350 50 000 ml @ 50 mls/hr IV . Q20H [facility] Rx#:[id number] Lacosamide IV 50 mg In 50 50 Sodium Chloride 0.9% 50 ml @ 100 mls/hr IVPB BID [facility] Rx#:[id number] Pressure Bag 36 36 24 Sodium Chloride 0.9% 1, 150 000 ml @ 50 mls/hr IV . Q20H [facility] Rx#:[id number] Valproate Sodium 250 mg 100 In Sodium Chloride 0.9% 100 ml @ 100 mls/hr IVPB Q8HR [facility] Rx#:[id number] Intake, IV Titration 300 150 Amount Clindamycin 300 mg In 100 Dextrose 5% in Water 50 ml @ 50 mls/hr IVPB Q6HR [facility] Rx#:[id number] Lacosamide IV 75 mg In 50 Sodium Chloride 0.9% 50 ml @ 100 mls/hr IVPB BID [facility] Rx#:[id number] Valproate Sodium 250 mg 200 100 In Sodium Chloride 0.9% 100 ml @ 100 mls/hr IVPB Q8HR [facility] Rx#:[id number] Blood Product 310 Rc As-3 Unit 310 [id number] Output: Urine 1550 1865 1550 Other: Voiding Method Indwelling Catheter Indwelling Catheter Indwelling Catheter ABP, PAP, CO, CI - Last Documented Arterial Blood Pressure 92/57 - Exam In general patient is alert responsive in no apparent distress HEENT head normocephalic and atraumatic Neck is supple no JVD no goiter no lymphadenopathy Chest exam reveals a few scattered rhonchi no wheezing Cardiac exam reveals regular heart sounds S1 and S2 with mild tachycardia no gallops no murmurs Abdomen is soft nontender no rigidity or rebound no palpable masses with hyperactive bowel sounds Extremity exam reveals no edema no cyanosis or clubbing Neurological examination reveals no gross new focal deficit - Labs CBC & Chem 7: 03/05/20 07:50 03/05/20 07:50 Labs: Abnormal Lab Results - Last 24 Hours (Table) 03/04/20 03/05/20 03/05/20 Range/Units 19:55 00:02 03:55 RBC (3.80-5.40) m/uL Hgb (11.4-16.0) gm/dL Hct (34.0-46.0) % RDW (11.5-15.5) % Plt Count (150-450) k/uL Glucose (74-99) mg/dL POC Glucose (mg/dL) 388 H 211 H 121 H (75-99) mg/dL Calcium (8.4-10.2) mg/dL Total Protein (6.3-8.2) g/dL Albumin (3.5-5.0) g/dL 03/05/20 03/05/20 03/05/20 Range/Units 07:50 07:50 09:15 RBC 3.11 L (3.80-5.40) m/uL Hgb 9.2 L (11.4-16.0) gm/dL Hct 29.2 L (34.0-46.0) % RDW 16.5 H (11.5-15.5) % Plt Count 48 L (150-450) k/uL Glucose 425 H (74-99) mg/dL POC Glucose (mg/dL) 483 H (75-99) mg/dL Calcium 8.1 L (8.4-10.2) mg/dL Total Protein 5.3 L (6.3-8.2) g/dL Albumin 2.5 L (3.5-5.0) g/dL 03/05/20 03/05/20 03/05/20 Range/Units 09:59 12:49 16:32 RBC (3.80-5.40) m/uL Hgb (11.4-16.0) gm/dL Hct (34.0-46.0) % RDW (11.5-15.5) % Plt Count (150-450) k/uL Glucose (74-99) mg/dL POC Glucose (mg/dL) 425 H 305 H 117 H (75-99) mg/dL Calcium (8.4-10.2) mg/dL Total Protein (6.3-8.2) g/dL Albumin (3.5-5.0) g/dL Microbiology - Last 24 Hours (Table) 03/01/20 19:45 Blood Culture Gram Stain - Preliminary Blood Blood Culture - Preliminary Gram Positive Cocci Isolated Assessment and Plan Plan: 1. Acute diabetic ketoacidosis with severe hyperglycemia and positive serum acetone patient is improving with IV fluid and IV insulin drip 2. Underlying history of diabetes mellitus type 1 maintained on insulin, her primary care provider is No Bowden, she was contacted and she stated that she was recently hospitalized at [facility], a different relative was caring for patient and apparently glucose level has been extremely elevated for several days. 3. Underlying history of hypertension 4. Underlying history of hyperlipidemia 5. Underlying history of seizure disorder, will place patient on IV Keppra until she is able to take her oral medications 6. Underlying history of COPD stable no evidence of exacerbation 7. Underlying history of coronary artery disease stable at this time patient denies any chest pain 8. Underlying history of peripheral vascular disease with previous history of multiple toe amputations 9. Previous history of stroke. At this time patient is admitted to intensive care unit continue with IV fluids and insulin management Home medication reviewed, will be switched to IV medications when possible due to continuous nausea and vomiting at this time Pulmonary critical care are following
[2020-03-05 19:45] LABS: Glucose,Whole Blood 236 mg/dL (75-99)
[2020-03-05] MEDS: ATORVASTATIN 80 MG TAB PO SCH (20:19)
[2020-03-05] MEDS: QUEtiapine 100 MG TAB PO SCH (20:19)
[2020-03-05] MEDS ORDERED: INSULIN DETEMIR (LEVEMIR) 100 UNIT/ML SYR SQ SCH (21:00)
[2020-03-06 00:42] LABS: Glucose,Whole Blood 82 mg/dL (75-99)
[2020-03-06] MEDS: CLINDAMYCIN 300 MG in DEXTROSE 5% IN WATER 50 ML IVPB SCH ×4 (01:00→07:09)
[2020-03-06] MEDS: INSULIN ASPART (NovoLOG) 100 UNIT/ML VIAL SQ SCH ×6 (01:08→21:37)
[2020-03-06] MEDS: VALPROATE SODIUM 250 MG in SODIUM CHLORIDE 0.9% 100 ML IVPB SCH ×3 (01:30→17:31)
[2020-03-06 01:53] LABS: Glucose,Whole Blood 42 mg/dL (75-99)
[2020-03-06] MEDS ORDERED: DEXTROSE 50% SYRINGE 50 ML IVP ONE ×3 (01:53→08:32)
[2020-03-06 02:12] LABS: Glucose,Whole Blood 212 mg/dL (75-99)
[2020-03-06 02:32] LABS: Glucose,Whole Blood 136 mg/dL (75-99)
[2020-03-06 03:31] LABS: Albumin 2.1 g/dL (3.5-5.0); Potassium 2.9 mmol/L (3.5-5.1); Total Bilirubin 0.4 mg/dL (0.2-1.3); Total Protein 4.7 g/dL (6.3-8.2)
[2020-03-06 03:33] LABS: Anisocytosis Slight; Basophils % (A) 0 %; Eosinophils % (A) 0 %; HCT 23.5 % (34.0-46.0); Lymphocytes # (A) 1.8 k/uL (1.0-4.8); Lymphocytes % (A) 43 %; MCH 28.9 pg (25.0-35.0); MCV 90.2 fL (80.0-100.0); Mean Platelet Volume 8.1; Monocytes # (A) 0.2 k/uL (0-1.0); Monocytes % (A) 4 %; Neutrophils # (A) 2.2 k/uL (1.3-7.7); Neutrophils % (A) 51 %; RDW 16.5 % (11.5-15.5); WBC 4.2 k/uL (3.8-10.6)
[2020-03-06 03:35] LABS: HGB 7.5 gm/dL (11.4-16.0); Platelet Count 57 k/uL (150-450)
[2020-03-06 03:58] LABS: Glucose,Whole Blood 51 mg/dL (75-99)
[2020-03-06 03:58] LABS: Glucose,Whole Blood 58 mg/dL (75-99)
[2020-03-06 04:17] LABS: Glucose,Whole Blood 93 mg/dL (75-99)
[2020-03-06 04:47] LABS: Glucose,Whole Blood 126 mg/dL (75-99)
[2020-03-06 05:59] LABS: Glucose,Whole Blood 68 mg/dL (75-99)
[2020-03-06] MEDS: POTASSIUM CHLORIDE 20 MEQ in WATER FOR INJECTION 1 100ML.BAG IVPB SCH ×3 (06:08→10:15)
[2020-03-06] MEDS: DEXTROSE 50% SYRINGE 50 ML IVP ONE ×2 (06:15→08:36)
[2020-03-06 06:32] LABS: Glucose,Whole Blood 202 mg/dL (75-99)
[2020-03-06] MEDS: DEXTROSE 5%-0.45% NACL 1,000 ML IV SCH (08:27)
[2020-03-06] MEDS: IPRATROPIUM-ALBUTEROL 3 ML NEB INHALATION SCH ×4 (08:32→19:15)
[2020-03-06] MEDS: QUEtiapine 25 MG TAB PO SCH ×2 (08:39→21:55)
[2020-03-06] MEDS: CLOPIDOGREL 75 MG TAB PO SCH (08:39)
[2020-03-06] MEDS: METOCLOPRAMIDE 10 MG TAB PO SCH ×3 (08:39→17:31)
[2020-03-06] MEDS: ASPIRIN 81 MG PO SCH (08:39)
[2020-03-06 08:41] LABS: Glucose,Whole Blood 34 mg/dL (75-99)
[2020-03-06 08:47] LABS: Glucose,Whole Blood 182 mg/dL (75-99)
[2020-03-06] MEDS: LEVOFLOXACIN 500 MG TAB PO SCH (08:51)
[2020-03-06] MEDS: DULoxetine HCL 60 MG CAPSULE.DR PO SCH (08:51)
[2020-03-06] MEDS: LOSARTAN 50 MG TAB PO SCH (10:07)
[2020-03-06] MEDS: SODIUM CHLORIDE 0.9% 1,000 ML IV SCH (10:19)
[2020-03-06] MEDS: SODIUM CHLORIDE 0.9% IVPB SCH (11:27)
[2020-03-06] MEDS: LACOSAMIDE IVPB SCH (11:27)
[2020-03-06] MEDS: CLINDAMYCIN 150 MG CAP PO SCH ×3 (11:29→21:55)
[2020-03-06 11:33] LABS: Glucose,Whole Blood 109 mg/dL (75-99)
--- NOTE | 2020-03-06 12:25 | P.PN ---
Subjective Progress Note Date: 03/06/20 she was seen at bedside and the she continues to be in ICU. Per the patient's nurse she stated that the patient failed her barium swallow yesterday. Patient stated that she's doing well, she denies of any new weakness, numbness or visual disturbance. patient is having brittle glucose levels. At 831 her glucose was 34. Objective - Vital Signs Vital signs: Vital Signs Temp 98.6 F 03/06/20 07:00 Pulse 96 03/06/20 12:09 Resp 17 03/06/20 07:00 BP 83/47 03/05/20 23:00 Pulse Ox 100 03/06/20 07:00 Intake & Output 03/05/20 03/06/20 03/06/20 18:59 06:59 18:59 Intake Total 649 100 Output Total 1550 340 Balance -901 -240 Weight 50.4 kg Intake: IV 499 100 D5-0.45% NaCl with KCl 275 20Meq/l 1,000 ml @ 50 mls /hr IV .Q20H [facility] Rx#: [id number] Dextrose 5%-0.9% NaCl 1, 50 000 ml @ 50 mls/hr IV . Q20H [facility] Rx#:[id number] Pressure Bag 24 Sodium Chloride 0.9% 1, 150 100 000 ml @ 50 mls/hr IV . Q20H [facility] Rx#:[id number] Intake, IV Titration 150 Amount Lacosamide IV 75 mg In 50 Sodium Chloride 0.9% 50 ml @ 100 mls/hr IVPB BID [facility] Rx#:[id number] Valproate Sodium 250 mg 100 In Sodium Chloride 0.9% 100 ml @ 100 mls/hr IVPB Q8HR [facility] Rx#:[id number] Output: Urine 1550 340 Other: Voiding Method Indwelling Catheter Indwelling Catheter Indwelling Catheter ABP, PAP, CO, CI - Last Documented Arterial Blood Pressure 92/57 - Exam GENERAL: The patient is lying in bed and is not in acute distress. She seems restless. CHEST: The heart rate is regular rate rhythm. No murmurs to auscultation. LUNG: Clear to auscultation bilaterally no wheezing noted throughout. Not labored breathing. ABDOMEN/GI: Bowel sounds present in all 4 quadrants. No tenderness to palpation throughout. NEUROLOGICAL: Higher mental function: The patient is awake, alert, oriented to self, place and time. Patient is following simple commands. No aphasia and no neglect. Cranial nerves: The pupils are round, equal (4mm bilaterally) and reactive to light.. Visual campuzano are Left Homonymous lower visual field cut to threat. Extraocular movement is intact no nystagmus is noted. Facial sensation unable to assess because of patient cooperation. The facial strength: left nasolabial flattening . Hearing is normal bilaterally to hand rub. Tongue is midline and moved [id number] without any difficulty. Mild dysarthria is noted. Shoulder unable to assess because of coopoeration. Motor: Gait is defered. Right upper and lower extremity is 5/5. Left upper extremity is 0/5. Left lower extremity is 4+/5. Increased tone of left upper extremity especially at hand. Cerebellum: Unable to assess because of patient cooperation. Sensation: Unable to assess because of cooperation. Reflexes (right/left): Brisk over the left upper extremity (3+) otherwise 1+ throughout. Plantars: Unable to assess right foot since digit 1-2 are amputated (as well as 5th digit). Left is upgoing. - Labs CBC & Chem 7: 03/06/20 03:10 03/06/20 03:10 Labs: Abnormal Lab Results - Last 24 Hours (Table) 03/05/20 03/05/20 03/05/20 Range/Units 12:49 16:32 19:43 RBC (3.80-5.40) m/uL Hgb (11.4-16.0) gm/dL Hct (34.0-46.0) % RDW (11.5-15.5) % Plt Count (150-450) k/uL Potassium (3.5-5.1) mmol/L Chloride (98-107) mmol/L Carbon Dioxide (22-30) mmol/L BUN (7-17) mg/dL POC Glucose (mg/dL) 305 H 117 H 236 H (75-99) mg/dL Calcium (8.4-10.2) mg/dL AST (14-36) U/L Total Protein (6.3-8.2) g/dL Albumin (3.5-5.0) g/dL 03/06/20 03/06/20 03/06/20 Range/Units 01:51 02:10 02:31 RBC (3.80-5.40) m/uL Hgb (11.4-16.0) gm/dL Hct (34.0-46.0) % RDW (11.5-15.5) % Plt Count (150-450) k/uL Potassium (3.5-5.1) mmol/L Chloride (98-107) mmol/L Carbon Dioxide (22-30) mmol/L BUN (7-17) mg/dL POC Glucose (mg/dL) 42 L 212 H 136 H (75-99) mg/dL Calcium (8.4-10.2) mg/dL AST (14-36) U/L Total Protein (6.3-8.2) g/dL Albumin (3.5-5.0) g/dL 03/06/20 03/06/20 03/06/20 Range/Units 03:10 03:10 03:55 RBC 2.60 L (3.80-5.40) m/uL Hgb 7.5 L D (11.4-16.0) gm/dL Hct 23.5 L (34.0-46.0) % RDW 16.5 H (11.5-15.5) % Plt Count 57 L (150-450) k/uL Potassium 2.9 L (3.5-5.1) mmol/L Chloride 113 H (98-107) mmol/L Carbon Dioxide 33 H (22-30) mmol/L BUN 19 H (7-17) mg/dL POC Glucose (mg/dL) 58 L (75-99) mg/dL Calcium 8.0 L (8.4-10.2) mg/dL AST 13 L (14-36) U/L Total Protein 4.7 L (6.3-8.2) g/dL Albumin 2.1 L (3.5-5.0) g/dL 03/06/20 03/06/20 03/06/20 Range/Units 03:56 04:47 05:58 RBC (3.80-5.40) m/uL Hgb (11.4-16.0) gm/dL Hct (34.0-46.0) % RDW (11.5-15.5) % Plt Count (150-450) k/uL Potassium (3.5-5.1) mmol/L Chloride (98-107) mmol/L Carbon Dioxide (22-30) mmol/L BUN (7-17) mg/dL POC Glucose (mg/dL) 51 L 126 H 68 L (75-99) mg/dL Calcium (8.4-10.2) mg/dL AST (14-36) U/L Total Protein (6.3-8.2) g/dL Albumin (3.5-5.0) g/dL 03/06/20 03/06/20 03/06/20 Range/Units 06:30 08:31 08:46 RBC (3.80-5.40) m/uL Hgb (11.4-16.0) gm/dL Hct (34.0-46.0) % RDW (11.5-15.5) % Plt Count (150-450) k/uL Potassium (3.5-5.1) mmol/L Chloride (98-107) mmol/L Carbon Dioxide (22-30) mmol/L BUN (7-17) mg/dL POC Glucose (mg/dL) 202 H 34 L 182 H (75-99) mg/dL Calcium (8.4-10.2) mg/dL AST (14-36) U/L Total Protein (6.3-8.2) g/dL Albumin (3.5-5.0) g/dL 03/06/20 Range/Units 11:33 RBC (3.80-5.40) m/uL Hgb (11.4-16.0) gm/dL Hct (34.0-46.0) % RDW (11.5-15.5) % Plt Count (150-450) k/uL Potassium (3.5-5.1) mmol/L Chloride (98-107) mmol/L Carbon Dioxide (22-30) mmol/L BUN (7-17) mg/dL POC Glucose (mg/dL) 109 H (75-99) mg/dL Calcium (8.4-10.2) mg/dL AST (14-36) U/L Total Protein (6.3-8.2) g/dL Albumin (3.5-5.0) g/dL Microbiology - Last 24 Hours (Table) 03/01/20 19:45 Blood Culture Gram Stain - Preliminary Blood Blood Culture - Preliminary Gram Positive Cocci Isolated Assessment and Plan Assessment: Toxic metabolic encephalopathy (DKA and right sided pneumonia)--improving Seizure Dysphagia Right hemispheric stroke with residual left-sided weakness Right ICA occlusion. Asymptomatic left ICA stenosis brittle diabetes Diabetic ketoacidosis---resolved Right sided pneumonia CORTES--resolved X tobacco use Hyperlipidemia Hypertension History of myocardial infarction or History of coronary artery disease Plan: Continue Vimpat 75 mg bid. Continue Depakote 250 mg 3 times a day will not modify the medication since the patient has history of restless per the caregiver from last visit. Ruma valproic acid was less than 10. Even if her valproic acid is subtherapeutic we'll continue with the same medication. I'll check a free valproic acid level Routine EEG: The background slowing over the left hemisphere is consistent with mild to moderate encephalopathy. The focal slwoing over the right [id number] region is consistent with patient history of Right MCA s troke. There is rare to occasional slowing over the right mid-temporal which can increase risk of focal epilepsy. There is no active seizure. Ammonia level: <9. Regarding the patient history of stroke continue aspirin 81 mg daily as well as Plavix 75mg daily for secondary stroke for prophylaxis (dual antiplatelet since has ICA stenosis and occlusion). Continue Atorvastatin 80 mg daily. Regarding the management of total diabetes will defer management to the ICU and the primary team. We'll defer the management of pneumonia to ICU and primary team. patient was seen by Dr. Edilson Marcos for right ICA occlusion 02/02/20. Dr. Marcos I recommended that carotid duplex and was completed on 02/02/20 and reported as chronic occlusion of the right ICA. Moderate atherosclerotic change of the left bifurcation without hemodynamic significant stenosis. Recommend the patient to follow-up with Dr. Marcos or his colleagues as an outpatient. The plan was discussed with the patient nurse. Bairon Kearns M.D. Neuro-hospitalist Time with Patient: Less than 30
--- NOTE | 2020-03-06 12:34 | P.PN ---
Subjective Progress Note Date: 03/06/20 Melva Jackson, is a 59-year-old female who presented to [facility] emergency room due to nausea vomiting and diarrhea, and elevated glucose level, she was evaluated in the emergency room, her temperature on presentation was 90.1, pulse 75 respiration 18 blood pressure 79/51 pulse ox 94% on room air, her white blood count was elevated at 11.6 hemoglobin 9.6 platelet count 156, venous blood gas pH was 7.05 glucose level was 744 and serum acetone was positive, patient was admitted to ICU she was started on IV fluid and on IV insulin drip. Patient has a known history of insulin-dependent diabetes mellitus type 1 maintained on insulin he had previous episodes of DKA, she also had a history of stroke, history of hypertension, hyperlipidemia, coronary artery disease with myocardial infarction, peripheral vascular disease with multiple toe amputation, history of COPD. On review of systems patient is alert responsive in no apparent distress she was seen in ICU she is still complaining of nausea and occasional episodes of vomiting there is no fever or chills no headache or dizziness no chest pain no shortness of breath no cough she is having some abdominal discomfort no no burni ng with urination no frequency or urgency no hematuria. On 03/03/2020 patient remains in the intensive care unit. Patient does not appear in any kind of distress. She currently getting treated for pneumonia critical care services are following. Patient remains on Levaquin. Patient has been transitioned to subcu insulin patient did have episodes of low sugar this a.m. treated per protocol. On 03/04/2020 patient was seen and examined in the ICU, she was very drowsy this morning she failed swallow evaluation and is kept nothing by mouth at this time, now patient is more alert and responsive, glucose level is better controlled, she is complaining of low back pain otherwise she denies any complaints. On 03/05/2020 patient was seen and examined in the ICU she is more alert and responsive at this time she is complaining of feeling hungry however she failed swallow evaluation again this morning otherwise she denies any complaints there is no fever or chills no headache or dizziness no chest pain no shortness of breath no cough no nausea or vomiting no abdominal pain no diarrhea and no urinary symptoms. At this time plan is to repeat swallow evaluation in the morning again before discussing alternative feeding options. On 03/06/2020 patient is alert and oriented 2. Patient is much more alert than previous days. Patient does seem fidgety in bed but this is similar to her base line. Blood sugars continue to fluctuate. Patient having low blood sugar this a.m. requiring amp of D50. Patient also failed swallow. Currently on nectar thick and plans to eventually reassess swallowing the next few days per speech. Patient has been ordered out of the intensive care unit to [facility] floor. Patient denies chest pain or shortness of breath. Patient denies nausea vomiting or diarrhea. Patient denies any urinary burning or frequency Objective - Vital Signs Vital signs: Vital Signs Temp 98.6 F 03/06/20 07:00 Pulse 96 03/06/20 12:09 Resp 17 03/06/20 07:00 BP 83/47 03/05/20 23:00 Pulse Ox 100 03/06/20 07:00 Intake & Output 03/05/20 03/06/20 03/06/20 18:59 06:59 18:59 Intake Total 649 100 Output Total 1550 340 Balance -901 -240 Weight 50.4 kg Intake: IV 499 100 D5-0.45% NaCl with KCl 275 20Meq/l 1,000 ml @ 50 mls /hr IV .Q20H HUMAIRA Rx#: [id number] Dextrose 5%-0.9% NaCl 1, 50 000 ml @ 50 mls/hr IV . Q20H HUMAIRA Rx#:[id number] Pressure Bag 24 Sodium Chloride 0.9% 1, 150 100 000 ml @ 50 mls/hr IV . Q20H [facility] Rx#:[id number] Intake, IV Titration 150 Amount Lacosamide IV 75 mg In 50 Sodium Chloride 0.9% 50 ml @ 100 mls/hr IVPB BID [facility]A Rx#:[id number] Valproate Sodium 250 mg 100 In Sodium Chloride 0.9% 100 ml @ 100 mls/hr IVPB Q8HR [facility] Rx#:[id number] Output: Urine 1550 340 Other: Voiding Method Indwelling Catheter Indwelling Catheter Indwelling Catheter ABP, PAP, CO, CI - Last Documented Arterial Blood Pressure 92/57 - Exam In general patient is alert responsive in no apparent distress HEENT head normocephalic and atraumatic Neck is supple no JVD no goiter no lymphadenopathy Chest exam reveals a few scattered rhonchi no wheezing Cardiac exam reveals regular heart sounds S1 and S2 with mild tachycardia no gallops no murmurs Abdomen is soft nontender no rigidity or rebound no palpable masses with hyperactive bowel sounds Extremity exam reveals no edema no cyanosis or clubbing Neurological examination reveals no gross new focal deficit - Labs CBC & Chem 7: 03/06/20 03:10 03/06/20 03:10 Labs: Abnormal Lab Results - Last 24 Hours (Table) 03/05/20 03/05/20 03/05/20 Range/Units 12:49 16:32 19:43 RBC (3.80-5.40) m/uL Hgb (11.4-16.0) gm/dL Hct (34.0-46.0) % RDW (11.5-15.5) % Plt Count (150-450) k/uL Potassium (3.5-5.1) mmol/L Chloride (98-107) mmol/L Carbon Dioxide (22-30) mmol/L BUN (7-17) mg/dL POC Glucose (mg/dL) 305 H 117 H 236 H (75-99) mg/dL Calcium (8.4-10.2) mg/dL AST (14-36) U/L Total Protein (6.3-8.2) g/dL Albumin (3.5-5.0) g/dL 03/06/20 03/06/20 03/06/20 Range/Units 01:51 02:10 02:31 RBC (3.80-5.40) m/uL Hgb (11.4-16.0) gm/dL Hct (34.0-46.0) % RDW (11.5-15.5) % Plt Count (150-450) k/uL Potassium (3.5-5.1) mmol/L Chloride (98-107) mmol/L Carbon Dioxide (22-30) mmol/L BUN (7-17) mg/dL POC Glucose (mg/dL) 42 L 212 H 136 H (75-99) mg/dL Calcium (8.4-10.2) mg/dL AST (14-36) U/L Total Protein (6.3-8.2) g/dL Albumin (3.5-5.0) g/dL 03/06/20 03/06/20 03/06/20 Range/Units 03:10 03:10 03:55 RBC 2.60 L (3.80-5.40) m/uL Hgb 7.5 L D (11.4-16.0) gm/dL Hct 23.5 L (34.0-46.0) % RDW 16.5 H (11.5-15.5) % Plt Count 57 L (150-450) k/uL Potassium 2.9 L (3.5-5.1) mmol/L Chloride 113 H (98-107) mmol/L Carbon Dioxide 33 H (22-30) mmol/L BUN 19 H (7-17) mg/dL POC Glucose (mg/dL) 58 L (75-99) mg/dL Calcium 8.0 L (8.4-10.2) mg/dL AST 13 L (14-36) U/L Total Protein 4.7 L (6.3-8.2) g/dL Albumin 2.1 L (3.5-5.0) g/dL 03/06/20 03/06/20 03/06/20 Range/Units 03:56 04:47 05:58 RBC (3.80-5.40) m/uL Hgb (11.4-16.0) gm/dL Hct (34.0-46.0) % RDW (11.5-15.5) % Plt Count (150-450) k/uL Potassium (3.5-5.1) mmol/L Chloride (98-107) mmol/L Carbon Dioxide (22-30) mmol/L BUN (7-17) mg/dL POC Glucose (mg/dL) 51 L 126 H 68 L (75-99) mg/dL Calcium (8.4-10.2) mg/dL AST (14-36) U/L Total Protein (6.3-8.2) g/dL Albumin (3.5-5.0) g/dL 03/06/20 03/06/20 03/06/20 Range/Units 06:30 08:31 08:46 RBC (3.80-5.40) m/uL Hgb (11.4-16.0) gm/dL Hct (34.0-46.0) % RDW (11.5-15.5) % Plt Count (150-450) k/uL Potassium (3.5-5.1) mmol/L Chloride (98-107) mmol/L Carbon Dioxide (22-30) mmol/L BUN (7-17) mg/dL POC Glucose (mg/dL) 202 H 34 L 182 H (75-99) mg/dL Calcium (8.4-10.2) mg/dL AST (14-36) U/L Total Protein (6.3-8.2) g/dL Albumin (3.5-5.0) g/dL 03/06/20 Range/Units 11:33 RBC (3.80-5.40) m/uL Hgb (11.4-16.0) gm/dL Hct (34.0-46.0) % RDW (11.5-15.5) % Plt Count (150-450) k/uL Potassium (3.5-5.1) mmol/L Chloride (98-107) mmol/L Carbon Dioxide (22-30) mmol/L BUN (7-17) mg/dL POC Glucose (mg/dL) 109 H (75-99) mg/dL Calcium (8.4-10.2) mg/dL AST (14-36) U/L Total Protein (6.3-8.2) g/dL Albumin (3.5-5.0) g/dL Microbiology - Last 24 Hours (Table) 03/01/20 19:45 Blood Culture Gram Stain - Preliminary Blood Blood Culture - Preliminary Gram Positive Cocci Isolated Assessment and Plan Assessment: 1. Acute diabetic ketoacidosis with severe hyperglycemia and positive serum acetone patient is improving with IV fluid and IV insulin drip. She has been transitioned to subcu insulin. Patient having an episode of hypoglycemia. Protocol followed per nursing staff 2. Underlying history of diabetes mellitus type 1 maintained on insulin, her primary care provider is No Bowden, she was contacted and she stated that she was recently hospitalized at [facility], a different relative was geraldo montoya for patient and apparently glucose level has been extremely elevated for several days. 3. Underlying history of hypertension 4. Underlying history of hyperlipidemia 5. Underlying history of seizure disorder, will place patient on IV Keppra until she is able to take her oral medications 6. Underlying history of COPD stable no evidence of exacerbation 7. Underlying history of coronary artery disease stable at this time patient denies any chest pain 8. Underlying history of peripheral vascular disease with previous history of multiple toe amputations 9. Previous history of stroke. 10. Right-sided pneumonia. Patient currently on Levaquin. Pulmonary and critical care service is following. Chest x-ray this a.m. showing infiltrates within the right upper lobe and improving within the right lower lobe. currently on Levaquin and Cleocin 11. Failed barium swallow. Patient currently on nectar thick. Speech to reevaluate swallow in the next few days 12. anemia. Hemoglobin low at 7.5 total IBC low at 192. Will start patient on ferrous sulfate. She did require 1 unit of PRBCs on 03/05/2020 will order stool for occult blood GI prophylaxis Protonix. DVT prophylaxis SCDs at this time until stool for occult blood is completed PT OT consulted I performed an examination of the patient and discussed their management with the Nurse Practitioner. I have reviewed the Nurse Practitioner's notes and agree with the documented findings and plan of care
--- NOTE | 2020-03-06 12:57 | P.PN ---
Subjective Progress Note Date: 03/06/20 this is a 59-year-old female patient who came in with nausea vomiting and diarrhea and profound dehydration the patient wasiagnosed having DKA. She has previous history of CVA, hypertension, coronary artery dase, chronic kidney disease. The patient has had previous admissions for DKA. She was also kaitlin gnosed having some bilateral low as the patient had bilateral lower lobe pulmonary infiltrate right more than left. She was given Levaquin and vancomycin. The patient was treated with an insulin drip regarding her DKA. She has multiple comorbidities. This morning, the patient is still on IV flui ds. She is on D5 half-normal saline with 20 mEq of potassium chloride the rate of 75 mL an hour. She had a follow-up blood work that showed resolution of her anion gap metabolic acidosis. A serum bicarbonate of 29 with anion gap of the right this point in time. Her hemoglobin was found to be at 6.8 and the patient was given a unit of packed RBC. No evidence of any bleeding at this point in ti me. The chest x-rays clear showing a right upper lobe consolidation/pneumonia. There is a central blood culture that showing also gram-positive cocci. Based on that, I kept the Levaquin and vancomycin and added clindamycin regarding the possibility of a right upper lobe aspiration pneumonia. The patient was also lethargic and confused and based on that and based on history of seizure activity, and neurology consultation was requested. Noted the patient was taking a combination of Vimpat and Depakote on outpatient basis. At this point in time she is unable to take her medications orally as the patient has failed a swallow bedside evaluation. The Depakote level has not been checked yet. Noted the patient also has a critical internal carotid artery stenosis on the left and the patient remains on aspirin on outpatient basis and vascular surgery has been requested to see this patient the past. On 03/05/2020, the patient is doing well. She is much more awake and alert compared to yesterday. His swallow evaluation will be repeated today. The patient seems to be able to pass her swallow evaluation patient is currently on 2 L about 2 by nasal cannula with a pulse of 97%. She was on a D5 half-normal saline at the rate of 150 mL an hour and this can be obviously cut down further. Chest exit shows improvement in the right upper lobe pneumonia as the patient is a combination of Levaquin and clindamycin. No cough. No sputum production. No chest that is no wheezing. The neurologist evaluated the patient and the patient had an EGD that showed no evidence of any seizure activity and will continue the antiepileptic medication which include a combination of Vimpat 75 mg by mouth twice a day and Depakote 250 mg 3 times a day. The patient would also need a follow-up evaluation with vascular surgery regarding her carotid artery stenosis which is significant on the left. 03/06/2020, the patient is having another swallow evaluation. She remains nothing by mouth based on the failed swallow evaluation done earlier. Earlier this morning she also had few episodes of hypoglycemia. I lowered the Lantus dose down to 10 units a day. I also started the patient on D5 half-normal at the rate of 50 mL An hour. We are awaiting another swallow evaluation. The patient is showing some silent aspiration on nectar thick material based on a swallow evaluation. The patient otherwise is resting comfortably in bed. No signs of an acute pneumonia. She continues to take a combination of Levaquin and clindamycin which can be switched to oral crushed medication regarding her aspiration pneumonia which involves the right upper lobe. No other significant events overnight. No seizure activity. She remains on her antiepileptic medication. Awaiting another swallow evaluation for now. Objective - Vital Signs Vital signs: Vital Signs Temp 98.6 F 03/06/20 07:00 Pulse 96 03/06/20 12:09 Resp 17 03/06/20 07:00 BP 83/47 03/05/20 23:00 Pulse Ox 100 03/06/20 07:00 Intake & Output 03/05/20 03/06/20 03/06/20 18:59 06:59 18:59 Intake Total 649 100 Output Total 1550 340 Balance -901 -240 Weight 50.4 kg Intake: IV 499 100 D5-0.45% NaCl with KCl 275 20Meq/l 1,000 ml @ 50 mls /hr IV .Q20H [facility] Rx#: [id number] Dextrose 5%-0.9% NaCl 1, 50 000 ml @ 50 mls/hr IV . Q20H [facility] Rx#:[id number] Pressure Bag 24 Sodium Chloride 0.9% 1, 150 100 000 ml @ 50 mls/hr IV . Q20H [facility] Rx#:[id number] Intake, IV Titration 150 Amount Lacosamide IV 75 mg In 50 Sodium Chloride 0.9% 50 ml @ 100 mls/hr IVPB BID [facility] Rx#:[id number] Valproate Sodium 250 mg 100 In Sodium Chloride 0.9% 100 ml @ 100 mls/hr IVPB Q8HR [facility] Rx#:[id number] Output: Urine 1550 340 Other: Voiding Method Indwelling Catheter Indwelling Catheter Indwelling Catheter ABP, PAP, CO, CI - Last Documented Arterial Blood Pressure 92/57 - Exam Gen. appearance she is calm and comfortable likely distress and she is laying comfortably in bed Head exam was generally normal. There was no scleral icterus or corneal arcus. M ucous membranes were moist. Neck was supple and without jugular venous distension, thyromegaly, or carotid bruits. Carotids were easily palpable bilaterally. There was no adenopathy. Lungs were clear to auscultation and percussion, and with normal diaphragmatic excursion. No wheezes or rales were noted. Cardiac exam revealed the PMI to be normally situated and sized. The rhythm was regular and no extrasystoles were noted during several minutes of auscultation. The first and second heart sounds were normal and physiologic splitting of the second heart sound was noted. There were no murmurs, rubs, clicks, or gallops. Abdominal exam revealed normal bowel sounds. The abdomen was soft, non-tender, and without masses, organomegaly, or appreciable enlargement of the abdominal aorta. Examination of the extremities revealed easily palpable radial, femoral and pedal pulses. There was no cyanosis, clubbing or edema. Examination of the skin revealed no evidence of significant rashes, suspicious a ppearing nevi or other concerning lesions. The patient has had previous amputation of the toes on the left and the first second and the fifth toes are missing at this point in time. Neurologically the patient is awake and alert and oriented and she is alert and oriented 3 on today's evaluation.. Cranial nerves were essentially intact. The patient had a weakness in the left upper extremity. Gait was not assessed. Reflexes were brisk over the left upper extremity. Babinski is upgoing on the left. - Labs CBC & Chem 7: 03/06/20 03:10 03/06/20 03:10 Labs: Abnormal Lab Results - Last 24 Hours (Table) 03/05/20 03/05/20 03/06/20 Range/Units 16:32 19:43 01:51 RBC (3.80-5.40) m/uL Hgb (11.4-16.0) gm/dL Hct (34.0-46.0) % RDW (11.5-15.5) % Plt Count (150-450) k/uL Potassium (3.5-5.1) mmol/L Chloride (98-107) mmol/L Carbon Dioxide (22-30) mmol/L BUN (7-17) mg/dL POC Glucose (mg/dL) 117 H 236 H 42 L (75-99) mg/dL Calcium (8.4-10.2) mg/dL AST (14-36) U/L Total Protein (6.3-8.2) g/dL Albumin (3.5-5.0) g/dL 03/06/20 03/06/20 03/06/20 Range/Units 02:10 02:31 03:10 RBC 2.60 L (3.80-5.40) m/uL Hgb 7.5 L D (11.4-16.0) gm/dL Hct 23.5 L (34.0-46.0) % RDW 16.5 H (11.5-15.5) % Plt Count 57 L (150-450) k/uL Potassium (3.5-5.1) mmol/L Chloride (98-107) mmol/L Carbon Dioxide (22-30) mmol/L BUN (7-17) mg/dL POC Glucose (mg/dL) 212 H 136 H (75-99) mg/dL Calcium (8.4-10.2) mg/dL AST (14-36) U/L Total Protein (6.3-8.2) g/dL Albumin (3.5-5.0) g/dL 03/06/20 03/06/20 03/06/20 Range/Units 03:10 03:55 03:56 RBC (3.80-5.40) m/uL Hgb (11.4-16.0) gm/dL Hct (34.0-46.0) % RDW (11.5-15.5) % Plt Count (150-450) k/uL Potassium 2.9 L (3.5-5.1) mmol/L Chloride 113 H (98-107) mmol/L Carbon Dioxide 33 H (22-30) mmol/L BUN 19 H (7-17) mg/dL POC Glucose (mg/dL) 58 L 51 L (75-99) mg/dL Calcium 8.0 L (8.4-10.2) mg/dL AST 13 L (14-36) U/L Total Protein 4.7 L (6.3-8.2) g/dL Albumin 2.1 L (3.5-5.0) g/dL 03/06/20 03/06/20 03/06/20 Range/Units 04:47 05:58 06:30 RBC (3.80-5.40) m/uL Hgb (11.4-16.0) gm/dL Hct (34.0-46.0) % RDW (11.5-15.5) % Plt Count (150-450) k/uL Potassium (3.5-5.1) mmol/L Chloride (98-107) mmol/L Carbon Dioxide (22-30) mmol/L BUN (7-17) mg/dL POC Glucose (mg/dL) 126 H 68 L 202 H (75-99) mg/dL Calcium (8.4-10.2) mg/dL AST (14-36) U/L Total Protein (6.3-8.2) g/dL Albumin (3.5-5.0) g/dL 03/06/20 03/06/20 03/06/20 Range/Units 08:31 08:46 11:33 RBC (3.80-5.40) m/uL Hgb (11.4-16.0) gm/dL Hct (34.0-46.0) % RDW (11.5-15.5) % Plt Count (150-450) k/uL Potassium (3.5-5.1) mmol/L Chloride (98-107) mmol/L Carbon Dioxide (22-30) mmol/L BUN (7-17) mg/dL POC Glucose (mg/dL) 34 L 182 H 109 H (75-99) mg/dL Calcium (8.4-10.2) mg/dL AST (14-36) U/L Total Protein (6.3-8.2) g/dL Albumin (3.5-5.0) g/dL Microbiology - Last 24 Hours (Table) 03/01/20 19:45 Blood Culture Gram Stain - Final Blood Blood Culture - Final Staph hominis sub sp. hominis Assessment and Plan Plan: 1 diabetic ketoacidosis, recovered and the patient is on long-acting insulin the patient developed some episodes of hypoglycemia overnight. Insulin dose will be adjusted. The patient is remaining nothing by mouth based on the failed swallow evaluation. This will evaluation will be done and repeated today. 2 right-sided pneumonia mainly involving the right upper lobe, consider aspiration, and the patient is currently on accommodation of Levaquin and clindamycin and there is improvement in the right upper lobe consolidation on to day's chest x-ray findings. 3 diabetes mellitus with previous episodes of DKA, see above dictation 4 diabetic peripheral neuropathy, retinopathy 5 coronary artery disease with a preserved LV function based on echocardiogramfrom 2018 6 COPD 7 history of DVT , axilla , on the right 9 hyperlipidemia 10 hypertension 11 chronic kidney disease, with a component of an acute kidney injury, improved 12 peripheral artery disease 13 hypothyroidism 14 previous history of second toe infection/amputation and previous history of right foot infection requiring a wound VAC 15 CVA with someresidual left-sided weakness, and the CAT scan of the brain showed an old large right hemispheric infarcts. No other acute abnormality is seen. 16 history of seizures, maintained on a combination of Vimpat and Depakote on outpatient basis 17 chronic anemia, with interval drop in hemoglobin down to 6.8 and the patient will be receiving a unit of packed RBC and follow-up hemoglobin is at 9.2 18 bipolar disorder, depression, anxiety 19 carotid artery stenosis, critical on the right 20 altered mental status and neurologist on the case, and the patient is clinically improving and seizure activity has been ruled out. plan complete a another swallow evaluation today based on a failed evaluation done yesterday Lower the Levemir dose to 10 units at nighttime Start the patient D5 half-normal saline today to 50 mL an hour and monitor the blood sugars Continue Levaquin and clindamycin switched antibiotics to oral We'll continue to follow make further recommendations based on her progress.
[2020-03-06] MEDS ORDERED: SODIUM FERRIC GLUCONAT-SUCROSE 125 MG in SODIUM CHLORIDE 0.9% 100 ML IVPB ONE (13:44)
[2020-03-06 17:09] LABS: Glucose,Whole Blood 219 mg/dL (75-99)
[2020-03-06 19:59] LABS: Glucose,Whole Blood 95 mg/dL (75-99)
[2020-03-06] MEDS ORDERED: INSULIN DETEMIR (LEVEMIR) 100 UNIT/ML SYR SQ SCH (21:00)
[2020-03-06] MEDS: ATORVASTATIN 80 MG TAB PO SCH (21:55)
[2020-03-06] MEDS: FERROUS SULFATE 325 MG TAB PO SCH (21:55)
[2020-03-06] MEDS: QUEtiapine 100 MG TAB PO SCH (21:55)
[2020-03-06 22:18] LABS: Glucose,Whole Blood 207 mg/dL (75-99)
--- NOTE | 2020-03-06 22:34 | P.CONS ---
History of Present Illness - Reason for Consult Consult date: 03/06/20 Positive blood culture Requesting physician: Sherlyn Chen - Chief Complaint Nausea vomiting and elevated blood sugar x few days - History of Present Illness Patient is a 59 year old female with past medical history significant for diabetes mellitus history diabetic foot infection with Osteomyelitis patient was brought into the ER at [facility] about 5 days ago on 03/01/2020 for evaluation of several days of nausea vomiting diarrhea and the patient also noticed to have a elevated blood sugar more than 600 was diagnosed with a DKA and has been admitted to the ICU, patient of admission Hospital was slightly hypothermic subsequently normal temperature she did spike a fever 100.9 on 03/04/2020 however has been afebrile since then, patient was mildly leukopenic on admission however the white count has been normal since then, the patient use has been negative chest x-ray did some elevated right upper lobe compared to recent exam consistent with pneumonia patient has been treated with Levaquin blood cultures on admission and subsequently came positive with gram- positive cocci vancomycin was added and infectious disease was consulted for further management of antibiotic therapy patient at time of evaluation is pleasantly confused and her nonspecific denies having any chest pain and headache no further vomiting and no diarrhea overall the patient is not a good historian so most information has been obtained from review the chart Review of Systems Positive points has been mentioned in HPI complete review could not be obtained because of his underlying mental status Past Medical History Past Medical History: Asthma, Coronary Artery Disease (CAD), Chest Pain / An glenda, Heart Failure, COPD, CVA/TIA, Diabetes Mellitus, Deep Vein Thrombosis (DVT), Eye Disorder, GERD/Reflux, Hyperlipidemia, Hypertension, Myocardial Infarction ([place]), Neurologic Disorder, Osteoarthritis (OA), Pneumonia, Renal Disease Additional Past Medical History / Comment(s): IDDM (brittle), DKAs, neuropathy bilateral hands/feet, retinopathy bilateral eyes, cellulitis R foot, R great toe and 2nd toe infections/amputations, current wound R foot-being seen in [facility], tiffanie l failure, anemia, CVAs with L sided paralysis, headaches started after CVAs, brain lesions, DVT R axillae, low back pain, varicosities, seizure many years ago (2001), hypothyroid, constipation, bilateral tinnitis occasionally, sinus problems. Last Myocardial Infarction Date:: 2011 History of Any Multi-Drug Resistant Organisms: MRSA Year Discovered:: 09/06/17 MDRO Source:: Right Foot Past Surgical History: Appendectomy, Section, Cholecystectomy, Heart Catheterization With Stent, Hysterectomy, Orthopedic Surgery Additional Past Surgical History / Comment(s): PCI with multiple stents, R great toe and 2nd toe amps, debridements R foot ulcer, L shoulder surgery to remove bone, bronchoscopy, EGD, colonoscopy, R arm port since removed, bilateral cataract removals/lens implants. Past Anesthesia/Blood Transfusion Reactions: No Reported Reaction Additional Past Anesthesia/Blood Transfusion Reaction / Comm: HX OF BLOOD TRANSFUSION- NO REACTION Date of Last Stent Placement:: July 2012 Past Psychological History: Anxiety, Bipolar, Depression Smoking Status: Never smoker Past Alcohol Use History: None Reported Past Drug Use History: Marijuana - Past Family History Father Family Medical History: Unable to Obtain, Coronary Artery Disease (CAD), Diabetes Mellitus Mother Family Medical History: COPD Medications and Allergies Home Medications Medication Instructions Recorded Confirmed Type Famotidine [Pepcid] 20 mg PO DAILY 07/19/15 03/01/20 History HYDROcodone/APAP 10-325MG [[place] 1 tab PO TID PRN 10/03/16 03/01/20 History 10-325] DULoxetine HCL [Cymbalta] 60 mg PO DAILY 02/16/17 03/01/20 History Atorvastatin [Lipitor] 20 mg PO DAILY 12/28/18 03/01/20 History QUEtiapine [SEROquel] 100 mg PO HS 12/28/18 03/01/20 History Aspirin [Adult Low Dose Aspirin EC] 81 mg PO DAILY 06/09/19 03/01/20 History Ferrous Sulfate [Iron (65 MG 325 mg PO DAILY 06/09/19 03/01/20 History Elemental)] Divalproex [Depakote] 250 mg PO TID #90 tablet. 08/17/19 03/01/20 Rx ALPRAZolam [Xanax] 1 mg PO Q8H PRN 12/26/19 03/01/20 History Albuterol Sulfate [Ventolin HFA] 2 puff INHALATION RT-Q4H PRN 12/26/19 03/01/20 History Ondansetron Odt [Zofran ODT] 4 mg PO DAILY PRN 12/26/19 03/01/20 History Valproic Acid [Depakene] 250 mg PO DAILY 12/26/19 03/01/20 History QUEtiapine [SEROquel] 25 mg PO BID 01/10/20 03/01/20 History Losartan [Cozaar] 50 mg PO DAILY tab 01/18/20 03/01/20 Rx Metoclopramide [Reglan] 10 mg PO AC-TID tab 01/18/20 03/01/20 Rx Ascorbic Acid [Vitamin C] 500 mg PO DAILY 01/29/20 03/01/20 History Insulin Glargine,Hum.rec.anlog 20 unit SQ HS 01/29/20 03/01/20 History [Basaglar Kwikpen U-100] Vitamin B Complex 1 tab PO DAILY 01/29/20 03/01/20 History Calcium Carb-Vit D 500Mg-200Un 1 each PO BID-W/MEALS tab 02/02/20 03/01/20 Rx [Oscal 500+D] Clopidogrel [Plavix] 75 mg PO DAILY tab 02/02/20 03/01/20 Rx INSULIN ASPART (NovoLOG) [NovoLOG 0 unit SQ AC-TID vial 02/02/20 03/01/20 Rx (formulary)] Lacosamide [Vimpat] 50 mg PO HS 03/01/20 03/01/20 History Lacosamide [Vimpat] 100 mg PO QAM 03/01/20 03/01/20 History Allergies Allergy/AdvReac Type Severity Reaction Status Date / Time Barbiturates Allergy Rash/Hives Verified 03/01/20 21:31 cephalexin monohydrate Allergy Rash/Hives Verified 03/01/20 21:31 [From Keflex] morphine Allergy Rash/Hives Verified 03/01/20 21:31 Penicillins Allergy Rash/Hives Verified 03/01/20 21:31 phenobarbital Allergy Swelling Verified 03/01/20 21:31 venom-honey bee Allergy Swelling Verified 03/01/20 21:31 [bee venom (honey bee)] amlodipine besylate AdvReac Vomiting Verified 03/01/20 21:31 [From Norvasc] Physical Exam Vitals: Vital Signs Temp Pulse Pulse Resp BP Pulse Ox 03/06/20 15:02 81 03/06/20 14:50 84 03/06/20 12:09 96 03/06/20 11:58 95 03/06/20 08:39 96 03/06/20 08:30 92 03/06/20 07:00 98.6 F 94 17 100 03/05/20 23:00 98.7 F 91 19 83/47 100 03/05/20 16:27 92 18 03/05/20 16:17 90 18 Intake and Output 03/06/20 03/06/20 03/06/20 06:59 14:59 22:59 Intake Total 50 Output Total 100 Balance -50 Intake: IV 50 Sodium Chloride 0.9% 1, 50 000 ml @ 50 mls/hr IV . Q20H [facility] Rx#:[id number] Output: Urine 100 Other: Voiding Method Indwelling Catheter Indwelling Catheter GENERAL DESCRIPTION: Middle-aged female lying in bed, no distress. No tachypnea or accessory muscle of respiration use. HEENT: Shows Pallor , no scleral icterus. Oral mucous membrane is dry. No pharyngeal erythema or thrush NECK: Trachea central, no thyromegaly. LUNGS: Unlabored breathing. Decreased breath sound at the base No wheeze or crackle. HEART: S1, S2, regular rate and rhythm. No loud murmur ABDOMEN: Soft, no tenderness , guarding or rigidity, no organomegaly EXTREMITIES: No edema of feet. SKIN: No rash, no masses palpable. NEUROLOGICAL: The patient is awake, but pleasantly confused orientation could not be determined. Results CBC & Chem 7: 03/06/20 03:10 03/06/20 03:10 Labs: Abnormal Lab Results - Last 24 Hours (Table) 03/05/20 03/05/20 03/06/20 Range/Units 16:32 19:43 01:51 RBC (3.80-5.40) m/uL Hgb (11.4-16.0) gm/dL Hct (34.0-46.0) % RDW (11.5-15.5) % Plt Count (150-450) k/uL Potassium (3.5-5.1) mmol/L Chloride (98-107) mmol/L Carbon Dioxide (22-30) mmol/L BUN (7-17) mg/dL POC Glucose (mg/dL) 117 H 236 H 42 L (75-99) mg/dL Calcium (8.4-10.2) mg/dL AST (14-36) U/L Total Protein (6.3-8.2) g/dL Albumin (3.5-5.0) g/dL 03/06/20 03/06/20 03/06/20 Range/Units 02:10 02:31 03:10 RBC 2.60 L (3.80-5.40) m/uL Hgb 7.5 L D (11.4-16.0) gm/dL Hct 23.5 L (34.0-46.0) % RDW 16.5 H (11.5-15.5) % Plt Count 57 L (150-450) k/uL Potassium (3.5-5.1) mmol/L Chloride (98-107) mmol/L Carbon Dioxide (22-30) mmol/L BUN (7-17) mg/dL POC Glucose (mg/dL) 212 H 136 H (75-99) mg/dL Calcium (8.4-10.2) mg/dL AST (14-36) U/L Total Protein (6.3-8.2) g/dL Albumin (3.5-5.0) g/dL 03/06/20 03/06/20 03/06/20 Range/Units 03:10 03:55 03:56 RBC (3.80-5.40) m/uL Hgb (11.4-16.0) gm/dL Hct (34.0-46.0) % RDW (11.5-15.5) % Plt Count (150-450) k/uL Potassium 2.9 L (3.5-5.1) mmol/L Chloride 113 H (98-107) mmol/L Carbon Dioxide 33 H (22-30) mmol/L BUN 19 H (7-17) mg/dL POC Glucose (mg/dL) 58 L 51 L (75-99) mg/dL Calcium 8.0 L (8.4-10.2) mg/dL AST 13 L (14-36) U/L Total Protein 4.7 L (6.3-8.2) g/dL Albumin 2.1 L (3.5-5.0) g/dL 03/06/20 03/06/20 03/06/20 Range/Units 04:47 05:58 06:30 RBC (3.80-5.40) m/uL Hgb (11.4-16.0) gm/dL Hct (34.0-46.0) % RDW (11.5-15.5) % Plt Count (150-450) k/uL Potassium (3.5-5.1) mmol/L Chloride (98-107) mmol/L Carbon Dioxide (22-30) mmol/L BUN (7-17) mg/dL POC Glucose (mg/dL) 126 H 68 L 202 H (75-99) mg/dL Calcium (8.4-10.2) mg/dL AST (14-36) U/L Total Protein (6.3-8.2) g/dL Albumin (3.5-5.0) g/dL 03/06/20 03/06/20 03/06/20 Range/Units 08:31 08:46 11:33 RBC (3.80-5.40) m/uL Hgb (11.4-16.0) gm/dL Hct (34.0-46.0) % RDW (11.5-15.5) % Plt Count (150-450) k/uL Potassium (3.5-5.1) mmol/L Chloride (98-107) mmol/L Carbon Dioxide (22-30) mmol/L BUN (7-17) mg/dL POC Glucose (mg/dL) 34 L 182 H 109 H (75-99) mg/dL Calcium (8.4-10.2) mg/dL AST (14-36) U/L Total Protein (6.3-8.2) g/dL Albumin (3.5-5.0) g/dL Microbiology - Last 24 Hours (Table) 03/01/20 19:45 Blood Culture Gram Stain - Final Blood Blood Culture - Final Staph hominis sub sp. hominis Assessment and Plan Assessment: 1- patient with positive blood culture with Streptococcus epidermidis in this patient presented to the hospital with nausea no vomiting this patient also have elevated blood sugar can be treated for DKA, more likely representing skin c ontamination as the patient has regular visits to go along with it 2-patient with a low-grade fever and chest x-ray suspicious for pneumonia seems to be clinically responding to Levaquin 3-Patient with multiple antibiotic ALLERGIES that would limit the number of antibiotic safe to use (1) Positive blood culture Current Visit: Yes Status: Acute Code(s): R78.81 - BACTEREMIA SNOMED Code(s): 400990194 (2) Pneumonia Current Visit: Yes Status: Acute Code(s): J18.9 - PNEUMONIA, UNSPECIFIED ORGANISM SNOMED Code(s): 807714716 (3) Allergy to multiple antibiotics Current Visit: Yes Status: Acute Code(s): Z88.1 - ALLERGY STATUS TO OTHER ANTIBIOTIC AGENTS STATUS SNOMED Code(s): 576740661 Plan: 1- vancomycin has been discontinued 2-continue with Levaquin for possible underlying pneumonia We will follow on clinical condition and cultures to further adjust medication if needed Thank you for this consultation will follow this patient with you Time with Patient: Greater than 30
[2020-03-07] MEDS: LACOSAMIDE IVPB SCH (00:14)
[2020-03-07] MEDS: VALPROATE SODIUM 250 MG in SODIUM CHLORIDE 0.9% 100 ML IVPB SCH (00:14)
[2020-03-07] MEDS: SODIUM CHLORIDE 0.9% IVPB SCH (00:14)
[2020-03-07 00:20] LABS: Glucose,Whole Blood 387 mg/dL (75-99)
[2020-03-07] MEDS: INSULIN ASPART (NovoLOG) 100 UNIT/ML VIAL SQ SCH ×6 (00:20→21:48)
[2020-03-07 04:04] LABS: Glucose,Whole Blood 73 mg/dL (75-99)
[2020-03-07 04:11] LABS: Anisocytosis Slight; Basophils % (A) 0 %; Eosinophils % (A) 1 %; HCT 24.4 % (34.0-46.0); HGB 7.7 gm/dL (11.4-16.0); Hypochromasia Slight; Lymphocytes # (A) 1.3 k/uL (1.0-4.8); Lymphocytes % (A) 36 %; MCH 29.7 pg (25.0-35.0); MCHC 31.7 g/dL (31.0-37.0); MCV 93.6 fL (80.0-100.0); Mean Platelet Volume 8.5; Monocytes # (A) 0.3 k/uL (0-1.0); Monocytes % (A) 7 %; Neutrophils % (A) 55 %; Platelet Count 60 k/uL (150-450); RDW 16.3 % (11.5-15.5); WBC 3.7 k/uL (3.8-10.6)
[2020-03-07 04:29] LABS: ALT 14 U/L (4-34); AST 21 U/L (14-36); African American GFR (CKD) >90 (>60 ml/min/1.73 sqM); Albumin 2.3 g/dL (3.5-5.0); Alkaline Phosphatase 65 U/L (38-126); Anion Gap 5 mmol/L; Blood Urea Nitrogen 13 mg/dL (7-17); Calcium 8.4 mg/dL (8.4-10.2); Carbon Dioxide 26 mmol/L (22-30); Chloride 113 mmol/L (98-107); Glucose 79 mg/dL (74-99); Non-African American GFR(CKD) 81 (>60 ml/min/1.73 sqM); Potassium 3.5 mmol/L (3.5-5.1); Sodium 144 mmol/L (137-145); Total Bilirubin 0.5 mg/dL (0.2-1.3)
[2020-03-07] MEDS: IPRATROPIUM-ALBUTEROL 3 ML NEB INHALATION SCH ×4 (07:59→19:44)
[2020-03-07 10:27] LABS: Glucose,Whole Blood 385 mg/dL (75-99)
[2020-03-07] MEDS: ASPIRIN 81 MG PO SCH (10:36)
[2020-03-07] MEDS: LOSARTAN 50 MG TAB PO SCH (10:37)
[2020-03-07] MEDS: DULoxetine HCL 60 MG CAPSULE.DR PO SCH (10:37)
[2020-03-07] MEDS: FERROUS SULFATE 325 MG TAB PO SCH ×2 (10:37→21:48)
[2020-03-07] MEDS: LACOSAMIDE 50 MG TABLET PO SCH ×2 (10:37→21:48)
[2020-03-07] MEDS: PANTOPRAZOLE 40 MG/10 ML VIAL IVP SCH (10:37)
[2020-03-07] MEDS: CLOPIDOGREL 75 MG TAB PO SCH (10:37)
[2020-03-07] MEDS: CLINDAMYCIN 150 MG CAP PO SCH ×3 (10:38→21:56)
[2020-03-07] MEDS: LEVOFLOXACIN 500 MG TAB PO SCH (10:38)
[2020-03-07] MEDS: METOCLOPRAMIDE 10 MG TAB PO SCH ×3 (10:38→16:58)
[2020-03-07] MEDS: INSULIN DETEMIR (LEVEMIR) 100 UNIT/ML SYR SQ SCH (10:43)
[2020-03-07 12:02] LABS: Glucose,Whole Blood 283 mg/dL (75-99)
[2020-03-07] MEDS: QUEtiapine 25 MG TAB PO SCH ×2 (12:26→21:47)
[2020-03-07] MEDS: DIVALPROEX 250 MG TABLET.DR PO SCH ×3 (12:26→21:56)
--- NOTE | 2020-03-07 13:46 | P.PN ---
Subjective Progress Note Date: 03/07/20 Patient is seen at bedside and states is doing well. Denies new weakness, numbness and visual disturbance. ENGINE WATCHMAN is following up with patient regarding patient dysphagia. Regarding her pneumonia she is on Levaquin as well as clindamycin. Objective - Vital Signs Vital signs: Vital Signs Temp 98 F 03/07/20 06:25 Pulse 90 03/07/20 08:00 Resp 18 03/07/20 06:25 BP 127/59 03/07/20 06:25 Pulse Ox 95 03/07/20 06:25 Intake & Output 03/06/20 03/07/20 03/07/20 18:59 06:59 18:59 Intake Total 400 500 Output Total 450 800 Balance -50 -300 Intake: IV 400 500 D5-0.45% NaCl with KCl 400 400 20Meq/l 1,000 ml @ 50 mls /hr IV .Q20H [facility] Rx#: [id number] Sodium Chloride 0.9% 1, 100 000 ml @ 50 mls/hr IV . Q20H [facility] Rx#:[id number] Output: Urine 450 800 Other: Voiding Method Indwelling Catheter Indwelling Catheter ABP, PAP, CO, CI - Last Documented Arterial Blood Pressure 92/57 - Exam GENERAL: The patient is lying in bed and is not in acute distress. CHEST: The heart rate is regular rate rhythm. No murmurs to auscultation. LUNG: Clear to auscultation bilaterally no wheezing noted throughout. Not labored breathing. ABDOMEN/GI: Bowel sounds present in all 4 quadrants. No tenderness to palpation throughout. NEUROLOGICAL: Higher mental function: The patient is awake, alert, oriented to self, place and time. Patient is following simple commands. No aphasia and no neglect. Cranial nerves: The pupils are round, equal (4mm bilaterally) and reactive to light.. Visual campuzano are Left Homonymous lower visual field cut to confrontation. Extraocular movement is intact no nystagmus is noted. Facial sensation is normal to touch throughout. The facial strength: left nasolabial flattening . Hearing is normal bilaterally to hand rub. Tongue is midline and moved [id number] without any difficulty. Mild dysarthria is noted. Motor: Gait is defered. Right upper and lower extremity is 5/5. Left upper extremity is 0/5. Left lower extremity is 4+/5. Increased tone of left upper extremity especially at hand. Sensation: Normal sensation to touch throughout. Reflexes (right/left): Brisk over the left upper extremity (3+) otherwise 1+ throughout. Plantars: Unable to assess right foot since digit 1-2 are amputated (as well as 5th digit). Left is upgoing. - Labs CBC & Chem 7: 03/07/20 03:42 03/07/20 03:42 Labs: Abnormal Lab Results - Last 24 Hours (Table) 03/06/20 03/06/20 03/06/20 Range/Units 08:31 08:46 11:33 WBC (3.8-10.6) k/uL RBC (3.80-5.40) m/uL Hgb (11.4-16.0) gm/dL Hct (34.0-46.0) % RDW (11.5-15.5) % Plt Count (150-450) k/uL Chloride (98-107) mmol/L POC Glucose (mg/dL) 34 L 182 H 109 H (75-99) mg/dL Total Protein (6.3-8.2) g/dL Albumin (3.5-5.0) g/dL 03/06/20 03/06/20 03/07/20 Range/Units 17:08 22:17 00:19 WBC (3.8-10.6) k/uL RBC (3.80-5.40) m/uL Hgb (11.4-16.0) gm/dL Hct (34.0-46.0) % RDW (11.5-15.5) % Plt Count (150-450) k/uL Chloride (98-107) mmol/L POC Glucose (mg/dL) 219 H 207 H 387 H (75-99) mg/dL Total Protein (6.3-8.2) g/dL Albumin (3.5-5.0) g/dL 03/07/20 03/07/20 03/07/20 Range/Units 03:42 03:42 04:02 WBC 3.7 L (3.8-10.6) k/uL RBC 2.60 L (3.80-5.40) m/uL Hgb 7.7 L (11.4-16.0) gm/dL Hct 24.4 L (34.0-46.0) % RDW 16.3 H (11.5-15.5) % Plt Count 60 L (150-450) k/uL Chloride 113 H (98-107) mmol/L POC Glucose (mg/dL) 73 L (75-99) mg/dL Total Protein 5.0 L (6.3-8.2) g/dL Albumin 2.3 L (3.5-5.0) g/dL Microbiology - Last 24 Hours (Table) 03/01/20 19:45 Blood Culture Gram Stain - Final Blood Blood Culture - Final Staph hominis sub sp. hominis Assessment and Plan Assessment: Toxic metabolic encephalopathy (DKA and right sided pneumonia)--improving Seizure Dysphagia Right hemispheric stroke with residual left-sided weakness Right ICA occlusion. Asymptomatic left ICA stenosis brittle diabetes Diabetic ketoacidosis---resolved Right sided pneumonia CORTES--resolved X tobacco use Hyperlipidemia Hypertension History of myocardial infarction or History of coronary artery disease Plan: Continue Vimpat 75 mg bid. Continue Depakote 250 mg 3 times a day will not modify the medication since the patient has history of restless per the caregiver from last visit. Total valproic acid was less than 10. Even if her valproic acid is subtherapeutic we'll continue with the same medication. Pending free valproic acid level Routine EEG: The background slowing over the left hemisphere is consistent with mild to moderate encephalopathy. The focal slwoing over the right [id number] region is consistent with patient history of Right MCA stroke. There is rare to occasional slowing over the right mid-temporal which can increase risk of focal epilepsy. There is no active seizure. Ammonia level: <9. Regarding the patient history of stroke continue aspirin 81 mg daily as well as Plavix 75mg daily for secondary stroke for prophylaxis (dual antiplatelet since has ICA stenosis and occlusion). Continue Atorvastatin 80 mg daily. Regarding the management of total diabetes will defer management to the ICU and the primary team. We'll defer the management of pneumonia to ID team. patient was seen by Dr. Edilson Marcos for right ICA occlusion 02/02/20. Dr. Marcos I recommended that carotid duplex and was completed on 02/02/20 and reported as chronic occlusion of the right ICA. Moderate atherosclerotic change of the left bifurcation without hemodynamic significant stenosis. In my opinion she does not need any intervention at this time. I attempted to contact Dr. Negro office and left message. Recommend the patient to follow-up with Dr. Marcos or his colleagues as an outpatient. The plan was discussed with the patient nurse. Bairon Kearns M.D. Neuro-hospitalist Time with Patient: Less than 30
--- NOTE | 2020-03-07 13:58 | P.PN ---
Subjective Progress Note Date: 03/07/20 this is a 59-year-old female patient who came in with nausea vomiting and diarrhea and profound dehydration the patient wasiagnosed having DKA. She has previous history of CVA, hypertension, coronary artery dase, chronic kidney disease. The patient has had previous admissions for DKA. She was also kaitlin gnosed having some bilateral low as the patient had bilateral lower lobe pulmonary infiltrate right more than left. She was given Levaquin and vancomycin. The patient was treated with an insulin drip regarding her DKA. She has multiple comorbidities. This morning, the patient is still on IV flui ds. She is on D5 half-normal saline with 20 mEq of potassium chloride the rate of 75 mL an hour. She had a follow-up blood work that showed resolution of her anion gap metabolic acidosis. A serum bicarbonate of 29 with anion gap of the right this point in time. Her hemoglobin was found to be at 6.8 and the patient was given a unit of packed RBC. No evidence of any bleeding at this point in ti me. The chest x-rays clear showing a right upper lobe consolidation/pneumonia. There is a central blood culture that showing also gram-positive cocci. Based on that, I kept the Levaquin and vancomycin and added clindamycin regarding the possibility of a right upper lobe aspiration pneumonia. The patient was also lethargic and confused and based on that and based on history of seizure activity, and neurology consultation was requested. Noted the patient was taking a combination of Vimpat and Depakote on outpatient basis. At this point in time she is unable to take her medications orally as the patient has failed a swallow bedside evaluation. The Depakote level has not been checked yet. Noted the patient also has a critical internal carotid artery stenosis on the left and the patient remains on aspirin on outpatient basis and vascular surgery has been requested to see this patient the past. On 03/05/2020, the patient is doing well. She is much more awake and alert compared to yesterday. His swallow evaluation will be repeated today. The patient seems to be able to pass her swallow evaluation patient is currently on 2 L about 2 by nasal cannula with a pulse of 97%. She was on a D5 half-normal saline at the rate of 150 mL an hour and this can be obviously cut down further. Chest exit shows improvement in the right upper lobe pneumonia as the patient is a combination of Levaquin and clindamycin. No cough. No sputum production. No chest that is no wheezing. The neurologist evaluated the patient and the patient had an EGD that showed no evidence of any seizure activity and will continue the antiepileptic medication which include a combination of Vimpat 75 mg by mouth twice a day and Depakote 250 mg 3 times a day. The patient would also need a follow-up evaluation with vascular surgery regarding her carotid artery stenosis which is significant on the left. 03/06/2020, the patient is having another swallow evaluation. She remains nothing by mouth based on the failed swallow evaluation done earlier. Earlier this morning she also had few episodes of hypoglycemia. I lowered the Lantus dose down to 10 units a day. I also started the patient on D5 half-normal at the rate of 50 mL An hour. We are awaiting another swallow evaluation. The patient is showing some silent aspiration on nectar thick material based on a swallow evaluation. The patient otherwise is resting comfortably in bed. No signs of an acute pneumonia. She continues to take a combination of Levaquin and clindamycin which can be switched to oral crushed medication regarding her aspiration pneumonia which involves the right upper lobe. No other significant events overnight. No seizure activity. She remains on her antiepileptic medication. Awaiting another swallow evaluation for now. 03/07/2020, the patient is having some pured honey thick diet. She was able to pass a swallow evaluation. Doing well. No specific complaints. The patient is still being cheered for right upper lobe aspiration pneumonia with accommodation Levaquin and clindamycin. The blood culture was positive for staph hominis a contaminant. The patient's white cell count is at 3.7. The blood sugar still fluctuating being as low as 73 and as high as 85. I'm going to give her based on her medicine of 10 units on a daily basis and addition to a scale coverage. No seizure activity has been noted. Antiepileptic medication was switched to oral form. She is on a combination of Vimpat and Depakote. Otherwise, she is afebrile and she is hemodynamic is stable. Her anion gap is down to 5 and the patient has a bicarb of 26. No other significant events otherwise for now. Objective - Vital Signs Vital signs: Vital Signs Temp 98 F 03/07/20 06:25 Pulse 94 03/07/20 12:14 Resp 18 03/07/20 06:25 BP 127/59 03/07/20 06:25 Pulse Ox 95 03/07/20 06:25 Intake & Output 03/06/20 03/07/20 03/07/20 18:59 06:59 18:59 Intake Total 400 500 Output Total 450 800 Balance -50 -300 Intake: IV 400 500 D5-0.45% NaCl with KCl 400 400 20Meq/l 1,000 ml @ 50 mls /hr IV .Q20H HUMAIRA Rx#: [id number] Sodium Chloride 0.9% 1, 100 000 ml @ 50 mls/hr IV . Q20H HUMAIRA Rx#:[id number] Output: Urine 450 800 Other: Voiding Method Indwelling Catheter Indwelling Catheter ABP, PAP, CO, CI - Last Documented Arterial Blood Pressure 92/57 - Exam Gen. appearance she is calm and comfortable likely distress and she is laying comfortably in bed Head exam was generally normal. There was no scleral icterus or corneal arcus. Mucous membranes were moist. Neck was supple and without jugular venous distension, thyromegaly, or carotid bruits. Carotids were easily palpable bilaterally. There was no adenopathy. Lungs were clear to auscultation and percussion, and with normal diaphragmatic excursion. No wheezes or rales were noted. Cardiac exam revealed the PMI to be normally situated and sized. The rhythm was regular and no extrasystoles were noted during several minutes of auscultation. The first and second heart sounds were normal and physiologic splitting of the second heart sound was noted. There were no murmurs, rubs, clicks, or gallops. Abdominal exam revealed normal bowel sounds. The abdomen was soft, non-tender, and without masses, organomegaly, or appreciable enlargement of the abdominal aorta. Examination of the extremities revealed easily palpable radial, femoral and pedal pulses. There was no cyanosis, clubbing or edema. Examination of the skin revealed no evidence of significant rashes, suspicious appearing nevi or other concerning lesions. The patient has had previous amputation of the toes on the left and the first second and the fifth toes are missing at this point in time. Neurologically the patient is awake and alert and oriented and she is alert and oriented 3 on today's evaluation.. Cranial nerves were essentially intact. The patient had a weakness in the left upper extremity. Gait was not assessed. Reflexes were brisk over the left upper extremity. Babinski is upgoing on the left. - Labs CBC & Chem 7: 03/07/20 03:42 03/07/20 03:42 Labs: Abnormal Lab Results - Last 24 Hours (Table) 03/06/20 03/06/20 03/07/20 Range/Units 17:08 22:17 00:19 WBC (3.8-10.6) k/uL RBC (3.80-5.40) m/uL Hgb (11.4-16.0) gm/dL Hct (34.0-46.0) % RDW (11.5-15.5) % Plt Count (150-450) k/uL Chloride (98-107) mmol/L POC Glucose (mg/dL) 219 H 207 H 387 H (75-99) mg/dL Total Protein (6.3-8.2) g/dL Albumin (3.5-5.0) g/dL 03/07/20 03/07/20 03/07/20 Range/Units 03:42 03:42 04:02 WBC 3.7 L (3.8-10.6) k/uL RBC 2.60 L (3.80-5.40) m/uL Hgb 7.7 L (11.4-16.0) gm/dL Hct 24.4 L (34.0-46.0) % RDW 16.3 H (11.5-15.5) % Plt Count 60 L (150-450) k/uL Chloride 113 H (98-107) mmol/L POC Glucose (mg/dL) 73 L (75-99) mg/dL Total Protein 5.0 L (6.3-8.2) g/dL Albumin 2.3 L (3.5-5.0) g/dL 03/07/20 03/07/20 Range/Units 10:26 12:01 WBC (3.8-10.6) k/uL RBC (3.80-5.40) m/uL Hgb (11.4-16.0) gm/dL Hct (34.0-46.0) % RDW (11.5-15.5) % Plt Count (150-450) k/uL Chloride (98-107) mmol/L POC Glucose (mg/dL) 385 H 283 H (75-99) mg/dL Total Protein (6.3-8.2) g/dL Albumin (3.5-5.0) g/dL Microbiology - Last 24 Hours (Table) 03/01/20 19:45 Blood Culture Gram Stain - Final Blood Blood Culture - Final Staph hominis sub sp. hominis Assessment and Plan Plan: 1 diabetic ketoacidosis, recovered and the patient is having significant fluct uation of blood sugar. She was started on oral diet and the patient be started on low-dose Levemir insulin in addition to sinus care coverage. She has a very brittle diabetic condition. This will be monitored very closely. Her anion gap metabolic acidosis recovered. 2 right-sided pneumonia mainly involving the right upper lobe, consider aspiration, and the patient is currently on accommodation of Levaquin and clindamycin and there is improvement in the right upper lobe consolidation on today's chest x-ray findings. The patient is currently taking a combination of oral Levaquin and clindamycin. Blood culture was positive for staph hominis which is a contaminant. 3 diabetes mellitus with previous episodes of DKA, see above dictation 4 diabetic peripheral neuropathy, retinopathy 5 coronary artery disease with a preserved LV function based on echocardiogramfrom 2018 6 COPD 7 history of DVT , axilla , on the right 9 hyperlipidemia 10 hypertension 11 chronic kidney disease, with a component of an acute kidney injury, improved 12 peripheral artery disease 13 hypothyroidism 14 previous history of second toe infection/amputation and previous history of right foot infection requiring a wound VAC 15 CVA with someresidual left-sided weakness, and the CAT scan of the brain showed an old large right hemispheric infarcts. No other acute abnormality is seen. 16 history of seizures, maintained on a combination of Vimpat and Depakote on outpatient basis 17 chronic anemia, with interval drop in hemoglobin down to 6.8 and the patient will be receiving a unit of packed RBC and follow-up hemoglobin is at 9.2 18 bipolar disorder, depression, anxiety 19 carotid artery stenosis, critical on the right 20 altered mental status and neurologist on the case, and the patient is clinically improving and seizure activity has been ruled out. The patient is normalized in terms of her mentation and the patient was able to pass a swallow evaluation and currently she is taking. Honey thick thick material. plan the swallow evaluation was noted and the patient is allowed to take some Honey thickened. Levemir dose to 10 units on a daily basis and addition to a sliding scale coverage IV fluids to KVO and the patient will be allowed to advance her diet Switch the antibiotics to oral form Levaquin and clindamycin switched antibiotics to oral We'll continue to follow make further recommendations based on her progress.
[2020-03-07 15:09] LABS: Glucose,Whole Blood 50 mg/dL (75-99)
[2020-03-07 15:49] LABS: Glucose,Whole Blood 53 mg/dL (75-99)
[2020-03-07] MEDS ORDERED: DEXTROSE 50% SYRINGE 50 ML IVP ONE (15:51)
[2020-03-07 16:13] LABS: Glucose,Whole Blood 146 mg/dL (75-99)
[2020-03-07] MEDS: DEXTROSE 5%-0.45% NACL 1,000 ML IV SCH (17:00)
--- NOTE | 2020-03-07 18:19 | P.PN ---
Subjective Progress Note Date: 03/07/20 Melva Jackson, is a 59-year-old female who presented to [facility] emergency room due to nausea vomiting and diarrhea, and elevated glucose level, she was evaluated in the emergency room, her temperature on presentation was 90.1, pulse 75 respiration 18 blood pressure 79/51 pulse ox 94% on room air, her white blood count was elevated at 11.6 hemoglobin 9.6 platelet count 156, venous blood gas pH was 7.05 glucose level was 744 and serum acetone was positive, patient was admitted to ICU she was started on IV fluid and on IV insulin drip. Patient has a known history of insulin-dependent diabetes mellitus type 1 maintained on insulin he had previous episodes of DKA, she also had a history of stroke, history of hypertension, hyperlipidemia, coronary artery disease with myocardial infarction, peripheral vascular disease with multiple toe amputation, history of COPD. On review of systems patient is alert responsive in no apparent distress she was seen in ICU she is still complaining of nausea and occasional episodes of vomiting there is no fever or chills no headache or dizziness no chest pain no shortness of breath no cough she is having some abdominal discomfort no no burni ng with urination no frequency or urgency no hematuria. On 03/03/2020 patient remains in the intensive care unit. Patient does not appear in any kind of distress. She currently getting treated for pneumonia critical care services are following. Patient remains on Levaquin. Patient has been transitioned to subcu insulin patient did have episodes of low sugar this a.m. treated per protocol. On 03/04/2020 patient was seen and examined in the ICU, she was very drowsy this morning she failed swallow evaluation and is kept nothing by mouth at this time, now patient is more alert and responsive, glucose level is better controlled, she is complaining of low back pain otherwise she denies any complaints. On 03/05/2020 patient was seen and examined in the ICU she is more alert and responsive at this time she is complaining of feeling hungry however she failed swallow evaluation again this morning otherwise she denies any complaints there is no fever or chills no headache or dizziness no chest pain no shortness of breath no cough no nausea or vomiting no abdominal pain no diarrhea and no urinary symptoms. At this time plan is to repeat swallow evaluation in the morning again before discussing alternative feeding options. On 03/06/2020 patient is alert and oriented 2. Patient is much more alert than previous days. Patient does seem fidgety in bed but this is similar to her base line. Blood sugars continue to fluctuate. Patient having low blood sugar this a.m. requiring amp of D50. Patient also failed swallow. Currently on nectar thick and plans to eventually reassess swallowing the next few days per speech. Patient has been ordered out of the intensive care unit to [facility]. Patient denies chest pain or shortness of breath. Patient denies nausea vomiting or diarrhea. Patient denies any urinary burning or frequency On 03/07/2020 patient was seen and examined in the ICU she is alert and oriented in no apparent distress she is tolerating pured diet well, there is no fever or chills no headache or dizziness no chest pain no shortness of breath no cough no nausea or vomiting no abdominal pain no diarrhea no blood in the stool Daigle catheter is in place. Objective - Vital Signs Vital signs: Vital Signs Temp 98 F 03/07/20 06:25 Pulse 96 03/07/20 08:11 Resp 18 03/07/20 06:25 BP 127/59 03/07/20 06:25 Pulse Ox 95 03/07/20 06:25 Intake & Output 03/06/20 03/07/20 03/07/20 18:59 06:59 18:59 Intake Total 400 500 Output Total 450 800 Balance -50 -300 Intake: IV 400 500 D5-0.45% NaCl with KCl 400 400 20Meq/l 1,000 ml @ 50 mls /hr IV .Q20H HUMAIRA Rx#: [id number] Sodium Chloride 0.9% 1, 100 000 ml @ 50 mls/hr IV . Q20H HUMAIRA Rx#:[id number] Output: Urine 450 800 Other: Voiding Method Indwelling Catheter Indwelling Catheter ABP, PAP, CO, CI - Last Documented Arterial Blood Pressure 92/57 - Exam In general patient is alert responsive in no apparent distress HEENT head normocephalic and atraumatic Neck is supple no JVD no goiter no lymphadenopathy Chest exam reveals a few scattered rhonchi no wheezing Cardiac exam reveals regular heart sounds S1 and S2 with mild tachycardia no gallops no murmurs Abdomen is soft nontender no rigidity or rebound no palpable masses with hyperactive bowel sounds Extremity exam reveals no edema no cyanosis or clubbing Neurological examination reveals no gross new focal deficit - Labs CBC & Chem 7: 03/07/20 03:42 03/07/20 03:42 Labs: Abnormal Lab Results - Last 24 Hours (Table) 03/06/20 03/06/20 03/06/20 Range/Units 11:33 17:08 22:17 WBC (3.8-10.6) k/uL RBC (3.80-5.40) m/uL Hgb (11.4-16.0) gm/dL Hct (34.0-46.0) % RDW (11.5-15.5) % Plt Count (150-450) k/uL Chloride (98-107) mmol/L POC Glucose (mg/dL) 109 H 219 H 207 H (75-99) mg/dL Total Protein (6.3-8.2) g/dL Albumin (3.5-5.0) g/dL 03/07/20 03/07/20 03/07/20 Range/Units 00:19 03:42 03:42 WBC 3.7 L (3.8-10.6) k/uL RBC 2.60 L (3.80-5.40) m/uL Hgb 7.7 L (11.4-16.0) gm/dL Hct 24.4 L (34.0-46.0) % RDW 16.3 H (11.5-15.5) % Plt Count 60 L (150-450) k/uL Chloride 113 H (98-107) mmol/L POC Glucose (mg/dL) 387 H (75-99) mg/dL Total Protein 5.0 L (6.3-8.2) g/dL Albumin 2.3 L (3.5-5.0) g/dL 03/07/20 Range/Units 04:02 WBC (3.8-10.6) k/uL RBC (3.80-5.40) m/uL Hgb (11.4-16.0) gm/dL Hct (34.0-46.0) % RDW (11.5-15.5) % Plt Count (150-450) k/uL Chloride (98-107) mmol/L POC Glucose (mg/dL) 73 L (75-99) mg/dL Total Protein (6.3-8.2) g/dL Albumin (3.5-5.0) g/dL Microbiology - Last 24 Hours (Table) 03/01/20 19:45 Blood Culture Gram Stain - Final Blood Blood Culture - Final Staph hominis sub sp. hominis Assessment and Plan Plan: 1. Acute diabetic ketoacidosis with severe hyperglycemia and positive serum acetone patient is improving with IV fluid and IV insulin drip 2. Underlying history of diabetes mellitus type 1 maintained on insulin, her primary care provider is No Bowden, she was contacted and she stated that she was recently hospitalized at [facility], a different relative was caring for patient and apparently glucose level has been extremely elevated for several days. 3. Underlying history of hypertension 4. Underlying history of hyperlipidemia 5. Underlying history of seizure disorder, will place patient on IV Keppra until she is able to take her oral medications 6. Underlying history of COPD stable no evidence of exacerbation 7. Underlying history of coronary artery disease stable at this time patient denies any chest pain 8. Underlying history of peripheral vascular disease with previous history of multiple toe amputations 9. Previous history of stroke. At this time patient is admitted to intensive care unit continue with IV fluids and insulin management Home medication reviewed, will be switched to IV medications when possible due to continuous nausea and vomiting at this time Pulmonary critical care are following
[2020-03-07] MEDS ORDERED: SODIUM FERRIC GLUCONAT-SUCROSE 125 MG in SODIUM CHLORIDE 0.9% 100 ML IVPB ONE (18:30)
[2020-03-07 21:30] LABS: Glucose,Whole Blood 150 mg/dL (75-99)
[2020-03-07] MEDS: QUEtiapine 100 MG TAB PO SCH (21:47)
[2020-03-07] MEDS: ATORVASTATIN 80 MG TAB PO SCH (21:48)
--- NOTE | 2020-03-07 21:54 | PN ---
PROGRESS NOTE DATE OF SERVICE: 03/07/2020 REASON FOR FOLLOWUP: Positive blood culture. INTERVAL HISTORY: The patient is currently afebrile. The patient remains pleasantly confused but no agitation. No nausea, no vomiting. No abdominal pain or any diarrhea. PHYSICAL EXAMINATION: Blood pressure 92/47, pulse of 103, temperature 98. She is 98% on room air. General description is a middle-aged female lying in bed in no distress. RESPIRATORY SYSTEM: Unlabored breathing. Clear to auscultation anteriorly. HEART: S1, S2. Regular rate and rhythm. ABDOMEN: Soft. No tenderness. EXTREMITIES: Wounds are currently healed. No cellulitis. LABS: Hemoglobin 7.7, white count 3.7, creatinine 0.80. Blood culture with Staphylococcus hominis. DIAGNOSTIC IMPRESSION AND PLAN: 1. Patient with a positive blood culture with Staphylococcus hominis, likely skin contamination, as the patient has no clinical to go along with it. Blood culture will be repeated to document clearance. 2. Possible aspiration pneumonia, for which the patient is currently being treated with Levaquin and clindamycin; to continue. Monitor her clinical course closely. MMODL / IJN: [id number] /
[2020-03-08 00:09] LABS: Glucose,Whole Blood 78 mg/dL (75-99)
[2020-03-08] MEDS: INSULIN ASPART (NovoLOG) 100 UNIT/ML VIAL SQ SCH ×6 (00:59→21:28)
[2020-03-08] MEDS: DEXTROSE 5%-0.45% NACL 1,000 ML IV SCH (01:02)
[2020-03-08 04:17] LABS: Glucose,Whole Blood 145 mg/dL (75-99)
[2020-03-08 05:18] LABS: Anisocytosis Slight; HCT 24.1 % (34.0-46.0); HGB 7.6 gm/dL (11.4-16.0); Hypochromasia Slight; MCH 28.9 pg (25.0-35.0); MCHC 31.6 g/dL (31.0-37.0); MCV 91.6 fL (80.0-100.0); Mean Platelet Volume 8.2; Platelet Count 80 k/uL (150-450); RBC 2.63 m/uL (3.80-5.40); RDW 16.3 % (11.5-15.5); WBC 2.7 k/uL (3.8-10.6)
[2020-03-08 05:30] LABS: ALT 13 U/L (4-34); AST 17 U/L (14-36); African American GFR (CKD) >90 (>60 ml/min/1.73 sqM); Albumin 2.1 g/dL (3.5-5.0); Alkaline Phosphatase 66 U/L (38-126); Anion Gap 3 mmol/L; Blood Urea Nitrogen 7 mg/dL (7-17); Calcium 8.2 mg/dL (8.4-10.2); Carbon Dioxide 28 mmol/L (22-30); Chloride 111 mmol/L (98-107); Glucose 140 mg/dL (74-99); Non-African American GFR(CKD) 84 (>60 ml/min/1.73 sqM); Potassium 3.5 mmol/L (3.5-5.1); Sodium 142 mmol/L (137-145); Total Bilirubin 0.4 mg/dL (0.2-1.3); Total Protein 4.8 g/dL (6.3-8.2)
[2020-03-08 05:50] LABS: Band Neutrophils % 2 %; Lymphocytes # (M) 1.57 k/uL (1.0-4.8); Monocytes # (M) 0.27 k/uL (0-1.0); Neutrophils % (M) 30 %; Nucleated Red Blood Cells 0 /100 WBC (0-0); Total Cells Counted 100
--- NOTE | 2020-03-08 06:37 | P.CONS ---
History of Present Illness - Reason for Consult Consult date: 03/07/20 anemia Requesting physician: Sherlyn Chen - Chief Complaint nausea and vomiting and elevated blood sugars - History of Present Illness 59-year-old female with multiple medical comorbidities including insulin- dependent diabetes mellitus, prior CVA, hypertension, hyperlipidemia, coronary artery disease, peripheral vascular disease and COPD who presented to the hospital due to complaints of nausea, vomiting and elevated blood sugars. Patient was treated in the intensive care unit for diabetic ketoacidosis. She is also receiving treatment at this time for suspected pneumonia. Currently she is receiving broad-spectrum antibiotic therapy The gastroenterology servicewas consulted to see the patient for evaluation of anemia. The patient has a known history of chronic anemia likely secondary to anemia of chronic disease and underlying medical comorbidities didn't kidney disease however she was found to have an acute fall in her hemoglobin during her hospitalization. Patient is on aspirin and Plavix therapy at baseline. As per her recollection she previously underwent endoscopic evaluation approximately 8-9 years ago with EGD and colonoscopy significant for polypectomy. Hemoglobin currently 7.7 after transfusion 1 unit of PRBCs. There've been no signs or symptoms of GI bleeding and the patient reports a brown bowel movement this morning. She does note that at times bowel movements have been dark. He is denying any abdominal pain at this time. Review of Systems REVIEW OF SYSTEMS: CONSTITUTIONAL: Denies any fevers, chills, weight change or fatigue. CARDIOVASCULAR: Denies any chest pain, palpitations high or low blood pressures RESPIRATORY: Denies any shortness of breath, hemoptysis or cough. GENITOURINARY: No dysuria or hematuria. MUSCULOSKELETAL: No weakness reported. SKIN: Denies any new rashes or lesions, jaundice or pallor. PSYCHIATRIC: she does have a history of bipolar depression. NEUROLOGY: Denies headache, denies any new focal deficits, does have residual left-sided weakness after CVA. EARS/NOSE/THROAT: No recent hearing change, congestion, nasal discharge or sore throat. EYES: No pain in eyes, discharge or change in vision. GASTROINTESTINAL: As per HPI. Past Medical History Past Medical History: Asthma, Coronary Artery Disease (CAD), Chest Pain / Angina, Heart Failure, COPD, CVA/TIA, Diabetes Mellitus, Deep Vein Thrombosis (DVT), Eye Disorder, GERD/Reflux, Hyperlipidemia, Hypertension, Myocardial Infarction ([place]), Neurologic Disorder, Osteoarthritis (OA), Pneumonia, Renal Disease Additional Past Medical History / Comment(s): IDDM (brittle), DKAs, neuropathy bilateral hands/feet, retinopathy bilateral eyes, cellulitis R foot, R great toe and 2nd toe infections/amputations, current wound R foot-being seen in [facility], renal failure, anemia, CVAs with L sided paralysis, headaches started after CVAs, brain lesions, DVT R axillae, low back pain, varicosities, seizure many years ago (2001), hypothyroid, constipation, bilateral tinnitis occasionally, sinus problems. Last Myocardial Infarction Date:: 2011 History of Any Multi-Drug Resistant Organisms: MRSA Year Discovered:: 09/06/17 MDRO Source:: Right Foot Past Surgical History: Appendectomy, Section, Cholecystectomy, Heart Catheterization With Stent, Hysterectomy, Orthopedic Surgery Additional Past Surgical History / Comment(s): PCI with multiple stents, R great toe and 2nd toe amps, debridements R foot ulcer, L shoulder surgery to remove bone, bronchoscopy, EGD, colonoscopy, R arm port since removed, bilateral cataract removals/lens implants. Past Anesthesia/Blood Transfusion Reactions: No Reported Reaction Additional Past Anesthesia/Blood Transfusion Reaction / Comm: HX OF BLOOD TRANSFUSION- NO REACTION Date of Last Stent Placement:: July 2012 Past Psychological History: Anxiety, Bipolar, Depression Smoking Status: Never smoker Past Alcohol Use History: None Reported Past Drug Use History: Marijuana - Past Family History Father Family Medical History: Unable to Obtain, Coronary Artery Disease (CAD), Diabetes Mellitus Mother Family Medical History: COPD Medications and Allergies Home Medications Medication Instructions Recorded Confirmed Type Famotidine [Pepcid] 20 mg PO DAILY 07/19/15 03/01/20 History HYDROcodone/APAP 10-325MG [Pearson 1 tab PO TID PRN 10/03/16 03/01/20 History 10-325] DULoxetine HCL [Cymbalta] 60 mg PO DAILY 02/16/17 03/01/20 History Atorvastatin [Lipitor] 20 mg PO DAILY 12/28/18 03/01/20 History QUEtiapine [SEROquel] 100 mg PO HS 12/28/18 03/01/20 History Aspirin [Adult Low Dose Aspirin EC] 81 mg PO DAILY 06/09/19 03/01/20 History Ferrous Sulfate [Iron (65 MG 325 mg PO DAILY 06/09/19 03/01/20 History Elemental)] Divalproex [Depakote] 250 mg PO TID #90 tablet. 08/17/19 03/01/20 Rx ALPRAZolam [Xanax] 1 mg PO Q8H PRN 12/26/19 03/01/20 History Albuterol Sulfate [Ventolin HFA] 2 puff INHALATION RT-Q4H PRN 12/26/19 03/01/20 History Ondansetron Odt [Zofran ODT] 4 mg PO DAILY PRN 12/26/19 03/01/20 History Valproic Acid [Depakene] 250 mg PO DAILY 12/26/19 03/01/20 History QUEtiapine [SEROquel] 25 mg PO BID 01/10/20 03/01/20 History Losartan [Cozaar] 50 mg PO DAILY tab 01/18/20 03/01/20 Rx Metoclopramide [Reglan] 10 mg PO AC-TID tab 01/18/20 03/01/20 Rx Ascorbic Acid [Vitamin C] 500 mg PO DAILY 01/29/20 03/01/20 History Insulin Glargine,Hum.rec.anlog 20 unit SQ HS 01/29/20 03/01/20 History [Basaglar Kwikpen U-100] Vitamin B Complex 1 tab PO DAILY 01/29/20 03/01/20 History Calcium Carb-Vit D 500Mg-200Un 1 each PO BID-W/MEALS tab 02/02/20 03/01/20 Rx [Oscal 500+D] Clopidogrel [Plavix] 75 mg PO DAILY tab 02/02/20 03/01/20 Rx INSULIN ASPART (NovoLOG) [NovoLOG 0 unit SQ AC-TID vial 02/02/20 03/01/20 Rx (formulary)] Lacosamide [Vimpat] 50 mg PO HS 03/01/20 03/01/20 History Lacosamide [Vimpat] 100 mg PO QAM 03/01/20 03/01/20 History Allergies Allergy/AdvReac Type Severity Reaction Status Date / Time Barbiturates Allergy Rash/Hives Verified 03/01/20 21:31 cephalexin monohydrate Allergy Rash/Hives Verified 03/01/20 21:31 [From Keflex] morphine Allergy Rash/Hives Verified 03/01/20 21:31 Penicillins Allergy Rash/Hives Verified 03/01/20 21:31 phenobarbital Allergy Swelling Verified 03/01/20 21:31 venom-honey bee Allergy Swelling Verified 03/01/20 21:31 [bee venom (honey bee)] amlodipine besylate AdvReac Vomiting Verified 03/01/20 21:31 [From [facility]] Physical Exam Vitals: Vital Signs Temp Pulse Pulse Resp BP Pulse Ox 03/07/20 12:14 94 03/07/20 11:59 90 03/07/20 08:11 96 03/07/20 08:00 90 03/07/20 06:25 98 F 87 18 127/59 95 03/06/20 22:31 98.3 F 106 H 20 131/64 96 03/06/20 19:15 82 16 Intake and Output 03/07/20 03/07/20 03/07/20 06:59 14:59 22:59 Intake Total 50 Output Total 800 Balance -750 Intake: IV 50 Sodium Chloride 0.9% 1, 50 000 ml @ 50 mls/hr IV . Q20H [facility] Rx#:[id number] Output: Urine 800 Other: Voiding Method Indwelling Catheter Indwelling Catheter On physical examination, patient appears comfortable in no apparent distress. HEAD: Normocephalic, atraumatic. EYES: No scleral icterus. No conjunctival injection. MOUTH: No lesions, tongue midline. NECK: Trachea midline, no gross abnormalities. CHEST: decreased air entry in all lung campuzano. HEART: S1-S2 appreciated. ABDOMEN: Soft, and nontender to palpation. Bowel sounds are positive. No organomegaly. No guarding or rigidity. EXTREMITIES: No pedal edema. SKIN: No rashes, no jaundice. NEUROLOGIC: Alert and oriented xerson and place. Results CBC & Chem 7: 03/08/20 04:38 03/08/20 04:38 Labs: Abnormal Lab Results - Last 24 Hours (Table) 03/06/20 03/06/20 03/07/20 Range/Units 17:08 22:17 00:19 WBC (3.8-10.6) k/uL RBC (3.80-5.40) m/uL Hgb (11.4-16.0) gm/dL Hct (34.0-46.0) % RDW (11.5-15.5) % Plt Count (150-450) k/uL Chloride (98-107) mmol/L POC Glucose (mg/dL) 219 H 207 H 387 H (75-99) mg/dL Total Protein (6.3-8.2) g/dL Albumin (3.5-5.0) g/dL 03/07/20 03/07/20 03/07/20 Range/Units 03:42 03:42 04:02 WBC 3.7 L (3.8-10.6) k/uL RBC 2.60 L (3.80-5.40) m/uL Hgb 7.7 L (11.4-16.0) gm/dL Hct 24.4 L (34.0-46.0) % RDW 16.3 H (11.5-15.5) % Plt Count 60 L (150-450) k/uL Chloride 113 H (98-107) mmol/L POC Glucose (mg/dL) 73 L (75-99) mg/dL Total Protein 5.0 L (6.3-8.2) g/dL Albumin 2.3 L (3.5-5.0) g/dL 03/07/20 03/07/20 03/07/20 Range/Units 10:26 12:01 15:08 WBC (3.8-10.6) k/uL RBC (3.80-5.40) m/uL Hgb (11.4-16.0) gm/dL Hct (34.0-46.0) % RDW (11.5-15.5) % Plt Count (150-450) k/uL Chloride (98-107) mmol/L POC Glucose (mg/dL) 385 H 283 H 50 L (75-99) mg/dL Total Protein (6.3-8.2) g/dL Albumin (3.5-5.0) g/dL Microbiology - Last 24 Hours (Table) 03/01/20 19:45 Blood Culture Gram Stain - Final Blood Blood Culture - Final Staph hominis sub sp. hominis Chest x-ray: report reviewed (some aspiration of thick anemia on swallow evaluation with more solid foods showing no aspiration.) Assessment and Plan (1) Acute on chronic anemia Narrative/Plan: 59-year-old female with multiple medical comorbiditiesincluding anemia of chronic disease with a baseline hemoglobin of approximately 9-10 presents to the hospital and is being treated for right lung pneumonia as well as diabetic ketoacidosis. Currently she is in the ICU. The GI service was consult to see the patient due to an acute fall in her hemoglobin from baseline. Hemoglobin currently 7.7 after 1 unit of red blood cells. Iron studies are consistent with an iron deficiency anemia. Patient denies any abdominal pain and there've been no signs or symptoms of GI bleeding during hospitalization. She reports brown bowel movement today. She does report questionable dark bowel movements prior to presentation. She believes her last endoscopic evaluation was approximately 8-9 years ago with EGD and colonoscopy significant for polypectomy on colonoscopy. Unknown cause of anemia but suspicion is for multifactorial etiology given anemia of chronic disease,current treatment for pneumonia, cannot rule out a component of bleeding from GI tract or urinary tract or other etiology although the patient is denying any signs or symptoms at this time. Current Visit: Yes Status: Acute Code(s): D64.9 - ANEMIA, UNSPECIFIED SNOMED Code(s): 641572620 (2) Diabetes Current Visit: No Status: Acute Code(s): E11.9 - TYPE 2 DIABETES MELLITUS WITHOUT COMPLICATIONS SNOMED Code(s): 57662505 Plan: supportive care Okay for diet as per recommendations by speech language pathology Continue to monitor hemoglobin and hematocrit and transfuse as needed Continue iron supplementation Continue to monitor for any signs or symptoms of GI bleed Continue Protonix therapy Patient would likely benefit from endoscopic evaluation when medically stable either prior to discharge or in the outpatient setting with EGD and/orcolonoscopy, we'll continue to follow and decision on timing will be made based on clinical course and laboratory evaluation Thank you for allowing us to participate in the care of the patient
[2020-03-08] MEDS ORDERED: INSULIN DETEMIR (LEVEMIR) 100 UNIT/ML SYR SQ SCH (07:00)
[2020-03-08] MEDS: IPRATROPIUM-ALBUTEROL 3 ML NEB INHALATION SCH ×4 (07:28→20:23)
[2020-03-08 08:21] LABS: Glucose,Whole Blood 163 mg/dL (75-99)
[2020-03-08] MEDS: INSULIN DETEMIR (LEVEMIR) 100 UNIT/ML SYR SQ SCH (08:45)
[2020-03-08] MEDS: METOCLOPRAMIDE 10 MG TAB PO SCH ×3 (09:34→17:31)
[2020-03-08] MEDS: CLINDAMYCIN 150 MG CAP PO SCH ×3 (09:34→21:22)
[2020-03-08] MEDS: ASPIRIN 81 MG PO SCH (09:34)
[2020-03-08] MEDS: FERROUS SULFATE 325 MG TAB PO SCH ×2 (09:36→21:21)
[2020-03-08] MEDS: DULoxetine HCL 60 MG CAPSULE.DR PO SCH (09:36)
[2020-03-08] MEDS: DIVALPROEX 250 MG TABLET.DR PO SCH ×3 (09:36→21:24)
[2020-03-08] MEDS: CLOPIDOGREL 75 MG TAB PO SCH (09:36)
[2020-03-08] MEDS: LEVOFLOXACIN 500 MG TAB PO SCH (09:37)
[2020-03-08] MEDS: PANTOPRAZOLE 40 MG/10 ML VIAL IVP SCH (09:37)
[2020-03-08] MEDS: LACOSAMIDE 50 MG TABLET PO SCH ×2 (09:37→21:21)
[2020-03-08] MEDS: LOSARTAN 50 MG TAB PO SCH (09:39)
[2020-03-08 12:11] LABS: Glucose,Whole Blood 164 mg/dL (75-99)
--- NOTE | 2020-03-08 12:25 | P.PN ---
Subjective Progress Note Date: 03/08/20 Principal diagnosis: Anemia The patient seen and examined in the ICU. She is sitting up in the recliner. She states she is more fatigued today. She has not had a bowel movement today, however yesterday she had a normal brown bowel movement. She is denying any abdominal pain, nausea, or vomiting. Her hemoglobin is stable at 7.7. She is status post 1 unit of packed red blood cells earlier this admission. She is being maintained on iron 325 mg by mouth twice a day. She had one dose of IV Ferrlecit yesterday. Objective - Vital Signs Vital signs: Vital Signs Temp 97.4 F L 03/08/20 08:10 Pulse 84 03/08/20 08:10 Resp 12 03/08/20 08:10 BP 84/54 03/08/20 08:10 Pulse Ox 90 L 03/08/20 08:10 Intake & Output 03/07/20 03/08/20 03/08/20 18:59 06:59 18:59 Intake Total 100 Output Total 480 480 Balance -480 -380 Intake: IV 100 Sodium Chloride 0.9% 1, 100 000 ml @ 50 mls/hr IV . Q20H [facility] Rx#:[id number] Output: Urine 480 480 Other: Voiding Method Indwelling Catheter Indwelling Catheter # Voids 3 ABP, PAP, CO, CI - Last Documented Arterial Blood Pressure 92/57 - Exam General appearance: The patient is drowsy but easily possible. HET: Head is normocephalic and atraumatic. Conjunctiva pink. Sclera and icteric. Neck: Supple without lymphadenopathy. Abdomen: Soft, mild diffuse tenderness, nondistended with bowel sounds. No guarding or rigidity. Extremities: Normal skin color and turgor. No pedal edema Neurological: No focal deficits. Alert and oriented 3. - Labs CBC & Chem 7: 03/08/20 04:38 03/08/20 04:38 Labs: Abnormal Lab Results - Last 24 Hours (Table) 03/07/20 03/07/20 03/07/20 Range/Units 10:26 12:01 15:08 WBC (3.8-10.6) k/uL RBC (3.80-5.40) m/uL Hgb (11.4-16.0) gm/dL Hct (34.0-46.0) % RDW (11.5-15.5) % Plt Count (150-450) k/uL Neutrophils # (Manual) (1.3-7.7) k/uL Chloride (98-107) mmol/L Glucose (74-99) mg/dL POC Glucose (mg/dL) 385 H 283 H 50 L (75-99) mg/dL Calcium (8.4-10.2) mg/dL Total Protein (6.3-8.2) g/dL Albumin (3.5-5.0) g/dL 03/07/20 03/07/20 03/07/20 Range/Units 15:48 16:12 21:28 WBC (3.8-10.6) k/uL RBC (3.80-5.40) m/uL Hgb (11.4-16.0) gm/dL Hct (34.0-46.0) % RDW (11.5-15.5) % Plt Count (150-450) k/uL Neutrophils # (Manual) (1.3-7.7) k/uL Chloride (98-107) mmol/L Glucose (74-99) mg/dL POC Glucose (mg/dL) 53 L 146 H 150 H (75-99) mg/dL Calcium (8.4-10.2) mg/dL Total Protein (6.3-8.2) g/dL Albumin (3.5-5.0) g/dL 03/08/20 03/08/20 03/08/20 Range/Units 04:16 04:38 04:38 WBC 2.7 L (3.8-10.6) k/uL RBC 2.63 L (3.80-5.40) m/uL Hgb 7.6 L (11.4-16.0) gm/dL Hct 24.1 L (34.0-46.0) % RDW 16.3 H (11.5-15.5) % Plt Count 80 L (150-450) k/uL Neutrophils # (Manual) 0.80 L (1.3-7.7) k/uL Chloride 111 H (98-107) mmol/L Glucose 140 H (74-99) mg/dL POC Glucose (mg/dL) 145 H (75-99) mg/dL Calcium 8.2 L (8.4-10.2) mg/dL Total Protein 4.8 L (6.3-8.2) g/dL Albumin 2.1 L (3.5-5.0) g/dL 03/08/20 Range/Units 08:19 WBC (3.8-10.6) k/uL RBC (3.80-5.40) m/uL Hgb (11.4-16.0) gm/dL Hct (34.0-46.0) % RDW (11.5-15.5) % Plt Count (150-450) k/uL Neutrophils # (Manual) (1.3-7.7) k/uL Chloride (98-107) mmol/L Glucose (74-99) mg/dL POC Glucose (mg/dL) 163 H (75-99) mg/dL Calcium (8.4-10.2) mg/dL Total Protein (6.3-8.2) g/dL Albumin (3.5-5.0) g/dL Assessment and Plan (1) Acute on chronic anemia Narrative/Plan: 59-year-old female with multiple medical comorbiditiesincluding anemia of chronic disease with a baseline hemoglobin of approximately 9-10 presents to the hospital and is being treated for right lung pneumonia as well as diabetic ketoacidosis. Currently she is in the ICU. The GI service was consult to see the patient due to an acute fall in her hemoglobin from baseline. Hemoglobin currently 7.7 after 1 unit of red blood cells. Iron studies are consistent with an iron deficiency anemia. Patient denies any abdominal pain and there've been no signs or symptoms of GI bleeding during hospitalization. She reports brown bowel movement today. She does report questionable dark bowel movements prior to presentation. She believes her last endoscopic evaluation was approximately 8-9 years ago with EGD and colonoscopy significant for polypectomy on colonoscopy. Unknown cause of anemia but suspicion is for multifactorial etiology given anemia of chronic disease,current treatment for pneumonia, cannot rule out a component of bleeding from GI tract or urinary tract or other etiology although the patient is denying any signs or symptoms at this time. Current Visit: Yes Status: Acute Code(s): D64.9 - ANEMIA, UNSPECIFIED SNOMED Code(s): 837381598 (2) Diabetes Current Visit: No Status: Acute Code(s): E11.9 - TYPE 2 DIABETES MELLITUS WITHOUT COMPLICATIONS SNOMED Code(s): 73014886 Plan: supportive care Okay for diet as per recommendations by speech language pathology Continue to monitor hemoglobin and hematocrit and transfuse as needed Continue iron supplementation Continue to monitor for any signs or symptoms of GI bleed Continue Protonix therapy Patient would likely benefit from endoscopic evaluation when medically stable either prior to discharge or in the outpatient setting with EGD and/orcolonoscopy, we'll continue to follow and decision on timing will be made based on clinical course and laboratory evaluation Thank you for allowing us to participate in the care of the patient The impression and plan of care has been dictated as directed. I performed a history and examination of this patient, discussed the same with the dictator. I agree with the dictator's note ,documented as a scribe. Any additional findings or plans will be noted.
--- NOTE | 2020-03-08 13:01 | P.PN ---
Subjective Progress Note Date: 03/08/20 this is a 59-year-old female patient who came in with nausea vomiting and diarrhea and profound dehydration the patient wasiagnosed having DKA. She has previous history of CVA, hypertension, coronary artery dase, chronic kidney disease. The patient has had previous admissions for DKA. She was also kaitlin gnosed having some bilateral low as the patient had bilateral lower lobe pulmonary infiltrate right more than left. She was given Levaquin and vancomycin. The patient was treated with an insulin drip regarding her DKA. She has multiple comorbidities. This morning, the patient is still on IV flui ds. She is on D5 half-normal saline with 20 mEq of potassium chloride the rate of 75 mL an hour. She had a follow-up blood work that showed resolution of her anion gap metabolic acidosis. A serum bicarbonate of 29 with anion gap of the right this point in time. Her hemoglobin was found to be at 6.8 and the patient was given a unit of packed RBC. No evidence of any bleeding at this point in ti me. The chest x-rays clear showing a right upper lobe consolidation/pneumonia. There is a central blood culture that showing also gram-positive cocci. Based on that, I kept the Levaquin and vancomycin and added clindamycin regarding the possibility of a right upper lobe aspiration pneumonia. The patient was also lethargic and confused and based on that and based on history of seizure activity, and neurology consultation was requested. Noted the patient was taking a combination of Vimpat and Depakote on outpatient basis. At this point in time she is unable to take her medications orally as the patient has failed a swallow bedside evaluation. The Depakote level has not been checked yet. Noted the patient also has a critical internal carotid artery stenosis on the left and the patient remains on aspirin on outpatient basis and vascular surgery has been requested to see this patient the past. On 03/05/2020, the patient is doing well. She is much more awake and alert compared to yesterday. His swallow evaluation will be repeated today. The patient seems to be able to pass her swallow evaluation patient is currently on 2 L about 2 by nasal cannula with a pulse of 97%. She was on a D5 half-normal saline at the rate of 150 mL an hour and this can be obviously cut down further. Chest exit shows improvement in the right upper lobe pneumonia as the patient is a combination of Levaquin and clindamycin. No cough. No sputum production. No chest that is no wheezing. The neurologist evaluated the patient and the patient had an EGD that showed no evidence of any seizure activity and will continue the antiepileptic medication which include a combination of Vimpat 75 mg by mouth twice a day and Depakote 250 mg 3 times a day. The patient would also need a follow-up evaluation with vascular surgery regarding her carotid artery stenosis which is significant on the left. 03/06/2020, the patient is having another swallow evaluation. She remains nothing by mouth based on the failed swallow evaluation done earlier. Earlier this morning she also had few episodes of hypoglycemia. I lowered the Lantus dose down to 10 units a day. I also started the patient on D5 half-normal at the rate of 50 mL An hour. We are awaiting another swallow evaluation. The patient is showing some silent aspiration on nectar thick material based on a swallow evaluation. The patient otherwise is resting comfortably in bed. No signs of an acute pneumonia. She continues to take a combination of Levaquin and clindamycin which can be switched to oral crushed medication regarding her aspiration pneumonia which involves the right upper lobe. No other significant events overnight. No seizure activity. She remains on her antiepileptic medication. Awaiting another swallow evaluation for now. 03/07/2020, the patient is having some pured honey thick diet. She was able to pass a swallow evaluation. Doing well. No specific complaints. The patient is still being cheered for right upper lobe aspiration pneumonia with accommodation Levaquin and clindamycin. The blood culture was positive for staph hominis a contaminant. The patient's white cell count is at 3.7. The blood sugar still fluctuating being as low as 73 and as high as 85. I'm going to give her based on her medicine of 10 units on a daily basis and addition to a scale coverage. No seizure activity has been noted. Antiepileptic medication was switched to oral form. She is on a combination of Vimpat and Depakote. Otherwise, she is afebrile and she is hemodynamic is stable. Her anion gap is down to 5 and the patient has a bicarb of 26. No other significant events otherwise for now. 03/08/2020, the patient is doing well. She was a bit sleepy earlier this morning and felt that this was a residual "effect from nighttime Seroquel intake.. The patient's otherwise is tolerating her diet. She has no specific complaints. She is on a D5 half-normal infusion to date of 50 mL an hour. On room air oxygen, the pulse is above 90%. She is on a Levemir insulin 10 units along with a slight scale coverage. She is being treated for an aspiration pneumonia with a combination of Levaquin and tobramycin. No other issues for now. The white cell count is at 2.7 with a hemoglobin of 7.6. Serum bicarb alicia 29 gap of 3. The BUN is at 7 with a creatinine of 0.78. Objective - Vital Signs Vital signs: Vital Signs Temp 97.4 F L 03/08/20 08:10 Pulse 90 03/08/20 11:44 Resp 12 03/08/20 08:10 BP 84/54 03/08/20 08:10 Pulse Ox 90 L 03/08/20 08:10 Intake & Output 03/07/20 03/08/20 03/08/20 18:59 06:59 18:59 Intake Total 100 Output Total 480 480 Balance -480 -380 Intake: IV 100 Sodium Chloride 0.9% 1, 100 000 ml @ 50 mls/hr IV . Q20H [facility] Rx#:[id number] Output: Urine 480 480 Other: Voiding Method Indwelling Catheter Indwelling Catheter Indwelling Catheter # Voids 3 ABP, PAP, CO, CI - Last Documented Arterial Blood Pressure 92/57 - Exam Gen. appearance she is calm and comfortable likely distress and she is laying c omfortably in bed Head exam was generally normal. There was no scleral icterus or corneal arcus. Mucous membranes were moist. Neck was supple and without jugular venous distension, thyromegaly, or carotid bruits. Carotids were easily palpable bilaterally. There was no adenopathy. Lungs were clear to auscultation and percussion, and with normal diaphragmatic excursion. No wheezes or rales were noted. Cardiac exam revealed the PMI to be normally situated and sized. The rhythm was regular and no extrasystoles were noted during several minutes of auscultation. The first and second heart sounds were normal and physiologic splitting of the second heart sound was noted. There were no murmurs, rubs, clicks, or gallops. Abdominal exam revealed normal bowel sounds. The abdomen was soft, non-tender, and without masses, organomegaly, or appreciable enlargement of the abdominal aorta. Examination of the extremities revealed easily palpable radial, femoral and pedal pulses. There was no cyanosis, clubbing or edema. Examination of the skin revealed no evidence of significant rashes, suspicious appearing nevi or other concerning lesions. The patient has had previous amputation of the toes on the left and the first second and the fifth toes are missing at this point in time. Neurologically the patient is awake and alert and oriented and she is alert and oriented 3 on today's evaluation.. Cranial nerves were essentially intact. The patient had a weakness in the left upper extremity. Gait was not assessed. Reflexes were brisk over the left upper extremity. Babinski is upgoing on the l eft. - Labs CBC & Chem 7: 03/08/20 04:38 03/08/20 04:38 Labs: Abnormal Lab Results - Last 24 Hours (Table) 03/07/20 03/07/20 03/07/20 Range/Units 15:08 15:48 16:12 WBC (3.8-10.6) k/uL RBC (3.80-5.40) m/uL Hgb (11.4-16.0) gm/dL Hct (34.0-46.0) % RDW (11.5-15.5) % Plt Count (150-450) k/uL Neutrophils # (Manual) (1.3-7.7) k/uL Chloride (98-107) mmol/L Glucose (74-99) mg/dL POC Glucose (mg/dL) 50 L 53 L 146 H (75-99) mg/dL Calcium (8.4-10.2) mg/dL Total Protein (6.3-8.2) g/dL Albumin (3.5-5.0) g/dL 03/07/20 03/08/20 03/08/20 Range/Units 21:28 04:16 04:38 WBC 2.7 L (3.8-10.6) k/uL RBC 2.63 L (3.80-5.40) m/uL Hgb 7.6 L (11.4-16.0) gm/dL Hct 24.1 L (34.0-46.0) % RDW 16.3 H (11.5-15.5) % Plt Count 80 L (150-450) k/uL Neutrophils # (Manual) 0.80 L (1.3-7.7) k/uL Chloride (98-107) mmol/L Glucose (74-99) mg/dL POC Glucose (mg/dL) 150 H 145 H (75-99) mg/dL Calcium (8.4-10.2) mg/dL Total Protein (6.3-8.2) g/dL Albumin (3.5-5.0) g/dL 03/08/20 03/08/20 03/08/20 Range/Units 04:38 08:19 12:10 WBC (3.8-10.6) k/uL RBC (3.80-5.40) m/uL Hgb (11.4-16.0) gm/dL Hct (34.0-46.0) % RDW (11.5-15.5) % Plt Count (150-450) k/uL Neutrophils # (Manual) (1.3-7.7) k/uL Chloride 111 H (98-107) mmol/L Glucose 140 H (74-99) mg/dL POC Glucose (mg/dL) 163 H 164 H (75-99) mg/dL Calcium 8.2 L (8.4-10.2) mg/dL Total Protein 4.8 L (6.3-8.2) g/dL Albumin 2.1 L (3.5-5.0) g/dL Assessment and Plan Plan: 1 diabetic ketoacidosis, recovered 2 right-sided pneumonia mainly involving the right upper lobe, consider aspiration, and the patient is currently on accommodation of Levaquin and clindamycin and there is improvement in the right upper lobe consolidation on today's chest x-ray findings. The patient is currently taking a combination of oral Levaquin and clindamycin. Blood culture was positive for staph hominis which is a contaminant. 3 diabetes mellitus with previous episodes of DKA, currently on Levemir insulin 10 units along with Effexor coverage. Blood sugars under adequate control. 4 diabetic peripheral neuropathy, retinopathy 5 coronary artery disease with a preserved LV function based on echocardiogramfrom 2018 6 COPD 7 history of DVT , axilla , on the right 9 hyperlipidemia 10 hypertension 11 chronic kidney disease, with a component of an acute kidney injury, improved 12 peripheral artery disease 13 hypothyroidism 14 previous history of second toe infection/amputation and previous history of right foot infection requiring a wound VAC 15 CVA with someresidual left-sided weakness, and the CAT scan of the brain showed an old large right hemispheric infarcts. No other acute abnormality is seen. 16 history of seizures, maintained on a combination of Vimpat and Depakote on outpatient basis 17 chronic anemia, with interval drop in hemoglobin down to 6.8 and the patient will be receiving a unit of packed RBC and follow-up hemoglobin is at 9.2 18 bipolar disorder, depression, anxiety 19 carotid artery stenosis, critical on the right 20 altered mental status and neurologist on the case, and the patient is clinically improving and seizure activity has been ruled out. The patient is normalized in terms of her mentation and the patient was able to pass a swallow evaluation and currently she is taking. Honey thick thick material. On today's evaluation the patient was found to be a bit somnolent and sleepy. The sacral dose will be modified. plan Oral intake with Honey thickened. Levemir dose to 10 units on a daily basis and addition to a sliding scale coverage IV fluids to KVO and the patient will be allowed to advance her diet Levaquin and clindamycin switched antibiotics to oral We'll continue to follow make further recommendations based on her progress. She should be able to transfer out of the intensive care unit.
--- NOTE | 2020-03-08 14:24 | P.PN ---
Subjective Progress Note Date: 03/08/20 Melva Jackson, is a 59-year-old female who presented to [facility] emergency room due to nausea vomiting and diarrhea, and elevated glucose level, she was evaluated in the emergency room, her temperature on presentation was 90.1, pulse 75 respiration 18 blood pressure 79/51 pulse ox 94% on room air, her white blood count was elevated at 11.6 hemoglobin 9.6 platelet count 156, venous blood gas pH was 7.05 glucose level was 744 and serum acetone was positive, patient was admitted to ICU she was started on IV fluid and on IV insulin drip. Patient has a known history of insulin-dependent diabetes mellitus type 1 maintained on insulin he had previous episodes of DKA, she also had a history of stroke, history of hypertension, hyperlipidemia, coronary artery disease with myocardial infarction, peripheral vascular disease with multiple toe amputation, history of COPD. On review of systems patient is alert responsive in no apparent distress she was seen in ICU she is still complaining of nausea and occasional episodes of vomiting there is no fever or chills no headache or dizziness no chest pain no shortness of breath no cough she is having some abdominal discomfort no no burni ng with urination no frequency or urgency no hematuria. On 03/03/2020 patient remains in the intensive care unit. Patient does not appear in any kind of distress. She currently getting treated for pneumonia critical care services are following. Patient remains on Levaquin. Patient has been transitioned to subcu insulin patient did have episodes of low sugar this a.m. treated per protocol. On 03/04/2020 patient was seen and examined in the ICU, she was very drowsy this morning she failed swallow evaluation and is kept nothing by mouth at this time, now patient is more alert and responsive, glucose level is better controlled, she is complaining of low back pain otherwise she denies any complaints. On 03/05/2020 patient was seen and examined in the ICU she is more alert and responsive at this time she is complaining of feeling hungry however she failed swallow evaluation again this morning otherwise she denies any complaints there is no fever or chills no headache or dizziness no chest pain no shortness of breath no cough no nausea or vomiting no abdominal pain no diarrhea and no urinary symptoms. At this time plan is to repeat swallow evaluation in the morning again before discussing alternative feeding options. On 03/06/2020 patient is alert and oriented 2. Patient is much more alert than previous days. Patient does seem fidgety in bed but this is similar to her base line. Blood sugars continue to fluctuate. Patient having low blood sugar this a.m. requiring amp of D50. Patient also failed swallow. Currently on nectar thick and plans to eventually reassess swallowing the next few days per speech. Patient has been ordered out of the intensive care unit to [facility]. Patient denies chest pain or shortness of breath. Patient denies nausea vomiting or diarrhea. Patient denies any urinary burning or frequency On 03/07/2020 patient was seen and examined in the ICU she is alert and oriented in no apparent distress she is tolerating pured diet well, there is no fever or chills no headache or dizziness no chest pain no shortness of breath no cough no nausea or vomiting no abdominal pain no diarrhea no blood in the stool Daigle catheter is in place. On 03/08/2020 patient was seen and examined in the ICU she is alert and oriented 3 and answering questions appropriately , glucose levels has been better controlled in the last 24 hours she is tolerating pured diet well, there is no fever or chills no headache or dizziness, no chest pain no shortness of breath no cough no nausea or vomiting no abdominal pain no diarrhea and no urinary symptoms. Objective - Vital Signs Vital signs: Vital Signs Temp 97.4 F L 03/08/20 08:10 Pulse 90 03/08/20 11:44 Resp 12 03/08/20 08:10 BP 84/54 03/08/20 08:10 Pulse Ox 90 L 03/08/20 08:10 Intake & Output 03/07/20 03/08/20 03/08/20 18:59 06:59 18:59 Intake Total 100 370 Output Total 480 480 Balance -480 -380 370 Weight 50.4 kg Intake: IV 100 250 D5-0.45% NaCl with KCl 250 20Meq/l 1,000 ml @ 50 mls /hr IV .Q20H [facility] Rx#: [id number] Sodium Chloride 0.9% 1, 100 000 ml @ 50 mls/hr IV . Q20H [facility] Rx#:[id number] Oral 120 Output: Urine 480 480 Other: Voiding Method Indwelling Catheter Indwelling Catheter Indwelling Catheter # Voids 3 ABP, PAP, CO, CI - Last Documented Arterial Blood Pressure 92/57 - Exam In general patient is alert responsive in no apparent distress HEENT head normocephalic and atraumatic Neck is supple no JVD no goiter no lymphadenopathy Chest exam reveals a few scattered rhonchi no wheezing Cardiac exam reveals regular heart sounds S1 and S2 with mild tachycardia no gallops no murmurs Abdomen is soft nontender no rigidity or rebound no palpable masses with hyp eractive bowel sounds Extremity exam reveals no edema no cyanosis or clubbing Neurological examination reveals no gross new focal deficit - Labs CBC & Chem 7: 03/08/20 04:38 03/08/20 04:38 Labs: Abnormal Lab Results - Last 24 Hours (Table) 03/07/20 03/07/20 03/07/20 Range/Units 15:08 15:48 16:12 WBC (3.8-10.6) k/uL RBC (3.80-5.40) m/uL Hgb (11.4-16.0) gm/dL Hct (34.0-46.0) % RDW (11.5-15.5) % Plt Count (150-450) k/uL Neutrophils # (Manual) (1.3-7.7) k/uL Chloride (98-107) mmol/L Glucose (74-99) mg/dL POC Glucose (mg/dL) 50 L 53 L 146 H (75-99) mg/dL Calcium (8.4-10.2) mg/dL Total Protein (6.3-8.2) g/dL Albumin (3.5-5.0) g/dL 03/07/20 03/08/20 03/08/20 Range/Units 21:28 04:16 04:38 WBC 2.7 L (3.8-10.6) k/uL RBC 2.63 L (3.80-5.40) m/uL Hgb 7.6 L (11.4-16.0) gm/dL Hct 24.1 L (34.0-46.0) % RDW 16.3 H (11.5-15.5) % Plt Count 80 L (150-450) k/uL Neutrophils # (Manual) 0.80 L (1.3-7.7) k/uL Chloride (98-107) mmol/L Glucose (74-99) mg/dL POC Glucose (mg/dL) 150 H 145 H (75-99) mg/dL Calcium (8.4-10.2) mg/dL Total Protein (6.3-8.2) g/dL Albumin (3.5-5.0) g/dL 03/08/20 03/08/20 03/08/20 Range/Units 04:38 08:19 12:10 WBC (3.8-10.6) k/uL RBC (3.80-5.40) m/uL Hgb (11.4-16.0) gm/dL Hct (34.0-46.0) % RDW (11.5-15.5) % Plt Count (150-450) k/uL Neutrophils # (Manual) (1.3-7.7) k/uL Chloride 111 H (98-107) mmol/L Glucose 140 H (74-99) mg/dL POC Glucose (mg/dL) 163 H 164 H (75-99) mg/dL Calcium 8.2 L (8.4-10.2) mg/dL Total Protein 4.8 L (6.3-8.2) g/dL Albumin 2.1 L (3.5-5.0) g/dL Assessment and Plan Plan: 1. Acute diabetic ketoacidosis with severe hyperglycemia and positive serum acetone patient is improving with IV fluid and IV insulin drip 2. Underlying history of diabetes mellitus type 1 maintained on insulin, her primary care provider is No Bowden, she was contacted and she stated that she was recently hospitalized at [facility], a different relative was caring for patient and apparently glucose level has been extremely elevated for several days. 3. Underlying history of hypertension 4. Underlying history of hyperlipidemia 5. Underlying history of seizure disorder, will place patient on IV Keppra until she is able to take her oral medications 6. Underlying history of COPD stable no evidence of exacerbation 7. Underlying history of coronary artery disease stable at this time patient denies any chest pain 8. Underlying history of peripheral vascular disease with previous history of multiple toe amputations 9. Previous history of stroke. 10. Pneumonia maintained on oral antibiotics at this time At this time patient is admitted to intensive care unit continue with IV fluids and insulin management Home medication reviewed, will be switched to IV medications when possible due to continuous nausea and vomiting at this time Pulmonary critical care are following
[2020-03-08] MEDS: ENOXAPARIN 40 MG/0.4 ML SYRINGE SQ SCH (16:14)
--- NOTE | 2020-03-08 17:07 | PN ---
PROGRESS NOTE DATE OF SERVICE: 03/08/2020 REASON FOR FOLLOWUP: 1. Positive blood culture likely contamination. 2. Possible aspiration pneumonitis. INTERVAL HISTORY: The patient is currently afebrile, patient is breathing comfortably, she is more awake and alert today, denies having any chest pain, shortness of breath, abdominal pain or diarrhea. PHYSICAL EXAMINATION: Blood pressure 101/90 with a pulse of 90, temperature 97.6. She is 95% on room. General description is an is middle-aged female, lying in bed in no distress. RESPIRATORY SYSTEM: Unlabored breathing, clear to auscultation anteriorly. HEART: S1, S2. Regular rate and rhythm. ABDOMEN: Soft, no tenderness. LABS: Hemoglobin 7.8, white count 2.7, BUN of 7, creatinine 0.78. DIAGNOSTIC IMPRESSION AND PLAN: 1. Patient with positive blood culture with Staph epidermidis, likely contamination. 2. Patient with possible aspiration pneumonitis, covered with Levaquin and clindamycin to continue and monitor clinical course closely. MMODL / IJN: [id number] /
[2020-03-08 17:27] LABS: Glucose,Whole Blood 76 mg/dL (75-99)
--- NOTE | 2020-03-08 18:10 | P.PN ---
Subjective Progress Note Date: 03/08/20 Patient was seen at bedside and she stated she is doing well. She denies of any new weakness, numbness. She is tolerating her diet well. She's been treated for aspiration pneumonia. Objective - Vital Signs Vital signs: Vital Signs Temp 97.6 F 03/08/20 16:05 Pulse 98 03/08/20 17:07 Resp 22 03/08/20 16:05 BP 101/90 03/08/20 16:05 Pulse Ox 95 03/08/20 16:05 Intake & Output 03/07/20 03/08/20 03/08/20 18:59 06:59 18:59 Intake Total 100 370 Output Total 480 480 Balance -480 -380 370 Weight 50.4 kg Intake: IV 100 250 D5-0.45% NaCl with KCl 250 20Meq/l 1,000 ml @ 50 mls /hr IV .Q20H [facility] Rx#: [id number] Sodium Chloride 0.9% 1, 100 000 ml @ 50 mls/hr IV . Q20H [facility] Rx#:[id number] Oral 120 Output: Urine 480 480 Other: Voiding Method Indwelling Catheter Indwelling Catheter Indwelling Catheter # Voids 3 ABP, PAP, CO, CI - Last Documented Arterial Blood Pressure 92/57 - Exam GENERAL: The patient is lying in bed and is not in acute distress. CHEST: The heart rate is regular rate rhythm. No murmurs to auscultation. LUNG: Clear to auscultation bilaterally no wheezing noted throughout. Not labored breathing. NEUROLOGICAL: Higher mental function: The patient is awake, alert, oriented to self, place and time. Patient is following simple commands. No aphasia and no neglect. Cranial nerves: The pupils are round, equal (4mm bilaterally) and reactive to light.. Visual campuzano are Left Homonymous lower visual field cut to confrontation. Extraocular movement is intact no nystagmus is noted. Facial sensation is normal to touch throughout. The facial strength: left nasolabial flattening . Hearing is normal bilaterally to hand rub. Tongue is midline and moved [id number] without any difficulty. Minimal dysarthria is noted (improved compared to yesterday). Motor: Gait is defered. Right upper and lower extremity is 5/5. Left upper extremity is 0/5. Left lower extremity is 4+/5. Increased tone of left upper extremity especially at hand. Sensation: Normal sensation to touch throughout. Reflexes (right/left): Brisk over the left upper extremity (3+) otherwise 1+ throughout. Plantars: Unable to assess right foot since digit 1-2 are amputated (as well as 5th digit). Left is upgoing. - Labs CBC & Chem 7: 03/08/20 04:38 03/08/20 04:38 Labs: Abnormal Lab Results - Last 24 Hours (Table) 03/07/20 03/08/20 03/08/20 Range/Units 21:28 04:16 04:38 WBC 2.7 L (3.8-10.6) k/uL RBC 2.63 L (3.80-5.40) m/uL Hgb 7.6 L (11.4-16.0) gm/dL Hct 24.1 L (34.0-46.0) % RDW 16.3 H (11.5-15.5) % Plt Count 80 L (150-450) k/uL Neutrophils # (Manual) 0.80 L (1.3-7.7) k/uL Chloride (98-107) mmol/L Glucose (74-99) mg/dL POC Glucose (mg/dL) 150 H 145 H (75-99) mg/dL Calcium (8.4-10.2) mg/dL Total Protein (6.3-8.2) g/dL Albumin (3.5-5.0) g/dL 03/08/20 03/08/20 03/08/20 Range/Units 04:38 08:19 12:10 WBC (3.8-10.6) k/uL RBC (3.80-5.40) m/uL Hgb (11.4-16.0) gm/dL Hct (34.0-46.0) % RDW (11.5-15.5) % Plt Count (150-450) k/uL Neutrophils # (Manual) (1.3-7.7) k/uL Chloride 111 H (98-107) mmol/L Glucose 140 H (74-99) mg/dL POC Glucose (mg/dL) 163 H 164 H (75-99) mg/dL Calcium 8.2 L (8.4-10.2) mg/dL Total Protein 4.8 L (6.3-8.2) g/dL Albumin 2.1 L (3.5-5.0) g/dL Assessment and Plan Assessment: Toxic metabolic encephalopathy (DKA and right sided pneumonia)--improving Seizure Dysphagia Right hemispheric stroke with residual left-sided weakness Right ICA occlusion. Asymptomatic left ICA stenosis brittle diabetes Diabetic ketoacidosis---resolved Aspiration pneumonia CORTES--resolved X tobacco use Hyperlipidemia Hypertension History of myocardial infarction or History of coronary artery disease Plan: Continue Vimpat 75 mg bid. Continue Depakote 250 mg 3 times a day will not modify the medication since the patient has history of restless per the caregiver from last visit. Total valproic acid was less than 10. Even if her valproic acid is subtherapeutic we'll continue with the same medication. Pending free valproic acid level Routine EEG: The background slowing over the left hemisphere is consistent with mild to moderate encephalopathy. The focal slwoing over the right aveqzq-smoslry-sosoitic region is consistent with patient history of Right MCA stroke. There is rare to occasional slowing over the right mid-temporal which can increase risk of focal epilepsy. There is no active seizure. Ammonia level: <9. Regarding the patient history of stroke continue aspirin 81 mg daily as well as Plavix 75mg daily for secondary stroke for prophylaxis (dual antiplatelet since has ICA stenosis and occlusion). Continue Atorvastatin 80 mg daily. Regarding the management of total diabetes will defer management to the ICU and the primary team. We'll defer the management of pneumonia to ID team. patient was seen by Dr. Edilson Marcos for right ICA occlusion 02/02/20. Dr. Marcos recommended carotid duplex and was completed on 02/02/20 and reported as chronic occlusion of the right ICA. Moderate atherosclerotic change of the left bifurcation without hemodynamic significant stenosis. In my opinion she does not need any intervention at this time. I attempted to contact Dr. Negro office and left message. Recommend the patient to follow-up with Dr. Marcos or his colleagues as an outpatient. We will follow-up with patient intermittently Bairon Kearns M.D. Neuro-hospitalist Time with Patient: Less than 30
[2020-03-08] MEDS: ATORVASTATIN 80 MG TAB PO SCH (21:21)
[2020-03-08 21:27] LABS: Glucose,Whole Blood 171 mg/dL (75-99)
[2020-03-08] MEDS: QUEtiapine 50 MG TAB PO SCH (21:34)
[2020-03-09 06:48] LABS: ALT 15 U/L (4-34); AST 22 U/L (14-36); African American GFR (CKD) >90 (>60 ml/min/1.73 sqM); Albumin 2.2 g/dL (3.5-5.0); Alkaline Phosphatase 68 U/L (38-126); Anion Gap 4 mmol/L; Blood Urea Nitrogen 8 mg/dL (7-17); Carbon Dioxide 27 mmol/L (22-30); Chloride 110 mmol/L (98-107); Glucose 223 mg/dL (74-99); Non-African American GFR(CKD) 90 (>60 ml/min/1.73 sqM); Potassium 3.9 mmol/L (3.5-5.1); Sodium 141 mmol/L (137-145); Total Bilirubin 0.5 mg/dL (0.2-1.3); Total Protein 5.1 g/dL (6.3-8.2)
[2020-03-09] MEDS: INSULIN ASPART (NovoLOG) 100 UNIT/ML VIAL SQ SCH ×6 (06:58→20:55)
[2020-03-09] MEDS: VALPROATE SODIUM 250 MG in SODIUM CHLORIDE 0.9% 100 ML IVPB SCH (06:59)
[2020-03-09] MEDS: SODIUM CHLORIDE 0.9% 1,000 ML IV SCH (06:59)
[2020-03-09] MEDS: QUEtiapine 25 MG TAB PO SCH (06:59)
[2020-03-09 07:45] LABS: Glucose,Whole Blood 279 mg/dL (75-99)
[2020-03-09 07:46] LABS: Anisocytosis Slight; Basophils % (A) 1 %; Eosinophils # (A) 0.1 k/uL (0-0.7); Eosinophils % (A) 4 %; HGB 8.7 gm/dL (11.4-16.0); Hypochromasia Moderate; Lymphocytes # (A) 1.7 k/uL (1.0-4.8); Lymphocytes % (A) 55 %; MCH 30.5 pg (25.0-35.0); MCHC 32.2 g/dL (31.0-37.0); MCV 94.7 fL (80.0-100.0); Mean Platelet Volume 8.5; Monocytes # (A) 0.1 k/uL (0-1.0); Monocytes % (A) 4 %; Neutrophils % (A) 34 %; Platelet Count 102 k/uL (150-450); RBC 2.85 m/uL (3.80-5.40); RDW 16.1 % (11.5-15.5)
[2020-03-09] MEDS: IPRATROPIUM-ALBUTEROL 3 ML NEB INHALATION SCH ×4 (07:47→19:09)
[2020-03-09] MEDS: LEVOFLOXACIN 500 MG TAB PO SCH (09:04)
[2020-03-09] MEDS: FERROUS SULFATE 325 MG TAB PO SCH ×2 (09:04→21:08)
[2020-03-09] MEDS: CLOPIDOGREL 75 MG TAB PO SCH (09:04)
[2020-03-09] MEDS: DIVALPROEX 250 MG TABLET.DR PO SCH ×3 (09:04→21:08)
[2020-03-09] MEDS: LOSARTAN 50 MG TAB PO SCH (09:04)
[2020-03-09] MEDS: DULoxetine HCL 60 MG CAPSULE.DR PO SCH (09:04)
[2020-03-09] MEDS: ASPIRIN 81 MG PO SCH (09:04)
[2020-03-09] MEDS: LACOSAMIDE 50 MG TABLET PO SCH ×2 (09:04→21:42)
[2020-03-09] MEDS: CLINDAMYCIN 150 MG CAP PO SCH ×3 (09:04→21:08)
[2020-03-09] MEDS: METOCLOPRAMIDE 10 MG TAB PO SCH ×3 (09:05→17:30)
[2020-03-09] MEDS: ENOXAPARIN 40 MG/0.4 ML SYRINGE SQ SCH (09:05)
[2020-03-09] MEDS: PANTOPRAZOLE 40 MG TABLET PO SCH (09:05)
[2020-03-09] MEDS: INSULIN DETEMIR (LEVEMIR) 100 UNIT/ML SYR SQ SCH (09:44)
--- NOTE | 2020-03-09 11:13 | P.PN ---
Subjective Progress Note Date: 03/09/20 Melva Jackson, is a 59-year-old female who presented to [facility] emergency room due to nausea vomiting and diarrhea, and elevated glucose level, she was evaluated in the emergency room, her temperature on presentation was 90.1, pulse 75 respiration 18 blood pressure 79/51 pulse ox 94% on room air, her white blood count was elevated at 11.6 hemoglobin 9.6 platelet count 156, venous blood gas pH was 7.05 glucose level was 744 and serum acetone was positive, patient was admitted to ICU she was started on IV fluid and on IV insulin drip. Patient has a known history of insulin-dependent diabetes mellitus type 1 maintained on insulin he had previous episodes of DKA, she also had a history of stroke, history of hypertension, hyperlipidemia, coronary artery disease with myocardial infarction, peripheral vascular disease with multiple toe amputation, history of COPD. On review of systems patient is alert responsive in no apparent distress she was seen in ICU she is still complaining of nausea and occasional episodes of vomiting there is no fever or chills no headache or dizziness no chest pain no shortness of breath no cough she is having some abdominal discomfort no no burni ng with urination no frequency or urgency no hematuria. On 03/03/2020 patient remains in the intensive care unit. Patient does not appear in any kind of distress. She currently getting treated for pneumonia critical care services are following. Patient remains on Levaquin. Patient has been transitioned to subcu insulin patient did have episodes of low sugar this a.m. treated per protocol. On 03/04/2020 patient was seen and examined in the ICU, she was very drowsy this morning she failed swallow evaluation and is kept nothing by mouth at this time, now patient is more alert and responsive, glucose level is better controlled, she is complaining of low back pain otherwise she denies any complaints. On 03/05/2020 patient was seen and examined in the ICU she is more alert and responsive at this time she is complaining of feeling hungry however she failed swallow evaluation again this morning otherwise she denies any complaints there is no fever or chills no headache or dizziness no chest pain no shortness of breath no cough no nausea or vomiting no abdominal pain no diarrhea and no urinary symptoms. At this time plan is to repeat swallow evaluation in the morning again before discussing alternative feeding options. On 03/06/2020 patient is alert and oriented 2. Patient is much more alert than previous days. Patient does seem fidgety in bed but this is similar to her base line. Blood sugars continue to fluctuate. Patient having low blood sugar this a.m. requiring amp of D50. Patient also failed swallow. Currently on nectar thick and plans to eventually reassess swallowing the next few days per speech. Patient has been ordered out of the intensive care unit to [facility] floor. Patient denies chest pain or shortness of breath. Patient denies nausea vomiting or diarrhea. Patient denies any urinary burning or frequency On 03/07/2020 patient was seen and examined in the ICU she is alert and oriented in no apparent distress she is tolerating pured diet well, there is no fever or chills no headache or dizziness no chest pain no shortness of breath no cough no nausea or vomiting no abdominal pain no diarrhea no blood in the stool Daigle catheter is in place. On 03/08/2020 patient was seen and examined in the ICU she is alert and oriented 3 and answering questions appropriately , glucose levels has been better controlled in the last 24 hours she is tolerating pured diet well, there is no fever or chills no headache or dizziness, no chest pain no shortness of breath no cough no nausea or vomiting no abdominal pain no diarrhea and no urinary symptoms. On 03/09/2020 patient was seen and examined on the medical floor she is alert and oriented 3 in no apparent distress there is no fever or chills no headache or dizziness no chest pain no shortness of breath no cough no nausea or vomiting no abdominal pain no diarrhea no blood in the stools no burning with urination no frequency or urgency and no hematuria Objective - Vital Signs Vital signs: Vital Signs Temp 98.1 F 03/09/20 07:00 Pulse 98 03/09/20 07:55 Resp 20 03/09/20 07:00 BP 118/59 03/09/20 07:00 Pulse Ox 92 L 03/09/20 07:00 Intake & Output 03/08/20 03/09/20 03/09/20 18:59 06:59 18:59 Intake Total 370 500 Balance 370 500 Weight 50.4 kg Intake: IV 250 D5-0.45% NaCl with KCl 250 20Meq/l 1,000 ml @ 50 mls /hr IV .Q20H [facility] Rx#: [id number] Oral 120 500 Other: Voiding Method Indwelling Catheter Incontinent Incontinent # Voids 1 ABP, PAP, CO, CI - Last Documented Arterial Blood Pressure 92/57 - Exam In general patient is alert responsive in no apparent distress HEENT head normocephalic and atraumatic Neck is supple no JVD no goiter no lymphadenopathy Chest exam reveals a few scattered rhonchi no wheezing Cardiac exam reveals regular heart sounds S1 and S2 with mild tachycardia no gallops no murmurs Abdomen is soft nontender no rigidity or rebound no palpable masses with hyperactive bowel sounds Extremity exam reveals no edema no cyanosis or clubbing Neurological examination reveals no gross new focal deficit - Labs CBC & Chem 7: 03/09/20 05:51 03/09/20 05:51 Labs: Abnormal Lab Results - Last 24 Hours (Table) 03/08/20 03/08/20 03/09/20 Range/Units 12:10 21:26 05:51 WBC 3.0 L (3.8-10.6) k/uL RBC 2.85 L (3.80-5.40) m/uL Hgb 8.7 L (11.4-16.0) gm/dL Hct 27.0 L (34.0-46.0) % RDW 16.1 H (11.5-15.5) % Plt Count 102 L (150-450) k/uL Neutrophils # 1.0 L (1.3-7.7) k/uL Chloride (98-107) mmol/L Glucose (74-99) mg/dL POC Glucose (mg/dL) 164 H 171 H (75-99) mg/dL Calcium (8.4-10.2) mg/dL Total Protein (6.3-8.2) g/dL Albumin (3.5-5.0) g/dL 03/09/20 03/09/20 Range/Units 05:51 07:35 WBC (3.8-10.6) k/uL RBC (3.80-5.40) m/uL Hgb (11.4-16.0) gm/dL Hct (34.0-46.0) % RDW (11.5-15.5) % Plt Count (150-450) k/uL Neutrophils # (1.3-7.7) k/uL Chloride 110 H (98-107) mmol/L Glucose 223 H (74-99) mg/dL POC Glucose (mg/dL) 279 H (75-99) mg/dL Calcium 8.0 L (8.4-10.2) mg/dL Total Protein 5.1 L (6.3-8.2) g/dL Albumin 2.2 L (3.5-5.0) g/dL Assessment and Plan Plan: 1. Acute diabetic ketoacidosis with severe hyperglycemia and positive serum acetone patient improved with IV fluid and IV insulin drip currently she is back on Levemir with a decreased dose to 10 units daily and sliding scale 2. Underlying history of diabetes mellitus type 1 maintained on insulin. 3. Underlying history of hypertension 4. Underlying history of hyperlipidemia 5. Underlying history of seizure disorder, patient is currently on Depakote 250 mg 3 times a day, and Vimpat 50 mg at bedtime 6. Underlying history of COPD stable no evidence of exacerbation 7. Underlying history of coronary artery disease stable at this time patient denies any chest pain 8. Underlying history of peripheral vascular disease with previous history of multiple toe amputations 9. Previous history of stroke. 10. Pneumonia , most likely related to aspiration , maintained on oral antibiotics at this time, Levaquin and clindamycin, pulmonary and infectious disease following 11. Positive blood cultures most likely contaminant. Patient is improving currently she is out of ICU on the medical floor she is tolerating pured diet well Continue with current management possible discharge to home on Wednesday if stable
--- NOTE | 2020-03-09 11:55 | P.PN ---
Subjective Progress Note Date: 03/09/20 Principal diagnosis: Diabetic ketoacidosis, recovered. Right-sided pneumonia. this is a 59-year-old female patient who came in with nausea vomiting and diarrhea and profound dehydration the patient wasiagnosed having DKA. She has previous history of CVA, hypertension, coronary artery dase, chronic kidney disease. The patient has had previous admissions for DKA. She was also diagnosed having some bilateral low as the patient had bilateral lower lobe pulmonary infiltrate right more than left. She was given Levaquin and vancomycin. The patient was treated with an insulin drip regarding her DKA. She has multiple comorbidities. This morning, the patient is still on IV fluids. She is on D5 half-normal saline with 20 mEq of potassium chloride the rate of 75 mL an hour. She had a follow-up blood work that showed resolution of her anion gap metabolic acidosis. A serum bicarbonate of 29 with anion gap of the right this point in time. Her hemoglobin was found to be at 6.8 and the patient was given a unit of packed RBC. No evidence of any bleeding at this point in time. The chest x-rays clear showing a right upper lobe consolidation/pneumonia. There is a central blood culture that showing also gram-positive cocci. Based on that, I kept the Levaquin and vancomycin and added clindamycin regarding the possibility of a right upper lobe aspiration pneumonia. The patient was also lethargic and confused and based on that and based on history of seizure activity, and neurology consultation was requested. Noted the patient was taking a combination of Vimpat and Depakote on outpatient basis. At this point in time she is unable to take her medications orally as the patient has failed a swallow bedside evaluation. The Depakote level has not been checked yet. Noted the patient also has a critical internal carotid artery stenosis on the left and the patient remains on aspirin on outpatient basis and vascular surgery has been requested to see this patient the past. On 03/05/2020, the patient is doing well. She is much more awake and alert compared to yesterday. His swallow evaluation will be repeated today. The patient seems to be able to pass her swallow evaluation patient is currently on 2 L about 2 by nasal cannula with a pulse of 97%. She was on a D5 half-normal saline at the rate of 150 mL an hour and this can be obviously cut down further. Chest exit shows improvement in the right upper lobe pneumonia as the patient is a combination of Levaquin and clindamycin. No cough. No sputum production. No chest that is no wheezing. The neurologist evaluated the patient and the patient had an EGD that showed no evidence of any seizure activity and will continue the antiepileptic medication which include a combination of Vimpat 75 mg by mouth twice a day and Depakote 250 mg 3 times a day. The patient would also need a follow-up evaluation with vascular surgery regarding her carotid artery stenosis which is significant on the left. 03/06/2020, the patient is having another swallow evaluation. She remains nothing by mouth based on the failed swallow evaluation done earlier. Earlier this morning she also had few episodes of hypoglycemia. I lowered the Lantus dose down to 10 units a day. I also started the patient on D5 half-normal at the rate of 50 mL An hour. We are awaiting another swallow evaluation. The patient is showing some silent aspiration on nectar thick material based on a swallow evaluation. The patient otherwise is resting comfortably in bed. No signs of an acute pneumonia. She continues to take a combination of Levaquin and clindamycin which can be switched to oral crushed medication regarding her aspiration pneumonia which involves the right upper lobe. No other significant events overnight. No seizure activity. She remains on her antiepileptic medication. Awaiting another swallow evaluation for now. 03/07/2020, the patient is having some pured honey thick diet. She was able to pass a swallow evaluation. Doing well. No specific complaints. The patient is still being cheered for right upper lobe aspiration pneumonia with accommodation Levaquin and clindamycin. The blood culture was positive for staph hominis a contaminant. The patient's white cell count is at 3.7. The blood sugar still fluctuating being as low as 73 and as high as 85. I'm going to give her based on her medicine of 10 units on a daily basis and addition to a scale coverage. No seizure activity has been noted. Antiepileptic medication was switched to oral form. She is on a combination of Vimpat and Depakote. Otherwise, she is afebrile and she is hemodynamic is stable. Her anion gap is down to 5 and the patient has a bicarb of 26. No other significant events otherwise for now. 03/08/2020, the patient is doing well. She was a bit sleepy earlier this morning and felt that this was a residual "effect from nighttime Seroquel intake.. The patient's otherwise is tolerating her diet. She has no specific complaints. She is on a D5 half-normal infusion to date of 50 mL an hour. On room air oxygen, the pulse is above 90%. She is on a Levemir insulin 10 units along with a slight scale coverage. She is being treated for an aspiration pneumonia with a combination of Levaquin and tobramycin. No other issues for now. The white cell count is at 2.7 with a hemoglobin of 7.6. Serum b icarbonate 29 gap of 3. The BUN is at 7 with a creatinine of 0.78. The patient is seen today 03/09/2020 in follow-up on the regular medical floor. She is currently resting comfortably in bed. More awake and alert. Denies any worsening shortness of breath, cough or congestion. She is maintaining good O2 saturations in the 90s on room air. She's been afebrile. Status post 1 unit of packed red blood cells this admission. Current hemoglobin 8.7. White count 3.0. Platelets 102. Sodium 141. Potassium 3.9. Creatinine 0.74. She remains on Cleocin, Levaquin, bronchodilators. She is anxious to go home. Stating she lives with her sister. Objective - Vital Signs Vital signs: Vital Signs Temp 98.1 F 03/09/20 07:00 Pulse 98 03/09/20 07:55 Resp 20 03/09/20 07:00 BP 118/59 03/09/20 07:00 Pulse Ox 92 L 03/09/20 07:00 Intake & Output 03/08/20 03/09/20 03/09/20 18:59 06:59 18:59 Intake Total 370 500 Balance 370 500 Weight 50.4 kg Intake: IV 250 D5-0.45% NaCl with KCl 250 20Meq/l 1,000 ml @ 50 mls /hr IV .Q20H [facility] Rx#: [id number] Oral 120 500 Other: Voiding Method Indwelling Catheter Incontinent Incontinent # Voids 1 ABP, PAP, CO, CI - Last Documented Arterial Blood Pressure 92/57 - Exam Gen. appearance: Alert, pleasant 59-year-old female patient, she is calm and comfortable, no acute distress and she is laying comfortably in bed Head exam was generally normal. There was no scleral icterus or corneal arcus. Mucous membranes were moist. Neck was supple and without jugular venous distension, thyromegaly, or carotid bruits. Carotids were easily palpable bilaterally. There was no adenopathy. Lungs were clear to auscultation and percussion, and with normal diaphragmatic excursion. No wheezes or rales were noted. Cardiac exam revealed the PMI to be normally situated and sized. The rhythm was regular and no extrasystoles were noted during several minutes of auscultation. The first and second heart sounds were normal and physiologic splitting of the second heart sound was noted. There were no murmurs, rubs, clicks, or gallops. Abdominal exam revealed normal bowel sounds. The abdomen was soft, non-tender, and without masses, organomegaly, or appreciable enlargement of the abdominal ao rta. Examination of the extremities revealed easily palpable radial, femoral and pedal pulses. There was no cyanosis, clubbing or edema. Examination of the skin revealed no evidence of significant rashes, suspicious appearing nevi or other concerning lesions. The patient has had previous amputation of the toes on the left and the first second and the fifth toes are missing at this point in time. Neurologically the patient is awake and alert and oriented and she is alert and oriented 3 on today's evaluation.. Cranial nerves were essentially intact. The patient had a weakness in the left upper extremity. Gait was not assessed. Reflexes were brisk over the left upper extremity. Babinski is upgoing on the left. - Labs CBC & Chem 7: 03/09/20 05:51 03/09/20 05:51 Labs: Abnormal Lab Results - Last 24 Hours (Table) 03/08/20 03/08/20 03/09/20 Range/Units 12:10 21:26 05:51 WBC 3.0 L (3.8-10.6) k/uL RBC 2.85 L (3.80-5.40) m/uL Hgb 8.7 L (11.4-16.0) gm/dL Hct 27.0 L (34.0-46.0) % RDW 16.1 H (11.5-15.5) % Plt Count 102 L (150-450) k/uL Neutrophils # 1.0 L (1.3-7.7) k/uL Chloride (98-107) mmol/L Glucose (74-99) mg/dL POC Glucose (mg/dL) 164 H 171 H (75-99) mg/dL Calcium (8.4-10.2) mg/dL Total Protein (6.3-8.2) g/dL Albumin (3.5-5.0) g/dL 03/09/20 03/09/20 Range/Units 05:51 07:35 WBC (3.8-10.6) k/uL RBC (3.80-5.40) m/uL Hgb (11.4-16.0) gm/dL Hct (34.0-46.0) % RDW (11.5-15.5) % Plt Count (150-450) k/uL Neutrophils # (1.3-7.7) k/uL Chloride 110 H (98-107) mmol/L Glucose 223 H (74-99) mg/dL POC Glucose (mg/dL) 279 H (75-99) mg/dL Calcium 8.0 L (8.4-10.2) mg/dL Total Protein 5.1 L (6.3-8.2) g/dL Albumin 2.2 L (3.5-5.0) g/dL Assessment and Plan Assessment: 1 diabetic ketoacidosis, recovered 2 right-sided pneumonia mainly involving the right upper lobe, consider aspiration, and the patient is currently on accommodation of Levaquin and clindamycin and there is improvement in the right upper lobe consolidation on today's chest x-ray findings. The patient is currently taking a combination of oral Levaquin and clindamycin. Blood culture was positive for staph hominis whi ch is a contaminant. Recovered and on room air 3 diabetes mellitus with previous episodes of DKA, currently on Levemir insulin 10 units along with Effexor coverage. Blood sugars under adequate control. 4 diabetic peripheral neuropathy, retinopathy 5 coronary artery disease with a preserved LV function based on echocardiogramfrom 2018 6 COPD 7 history of DVT , axilla , on the right 9 hyperlipidemia 10 hypertension 11 chronic kidney disease, with a component of an acute kidney injury, improved 12 peripheral artery disease 13 hypothyroidism 14 previous history of second toe infection/amputation and previous history of right foot infection requiring a wound VAC 15 CVA with someresidual left-sided weakness, and the CAT scan of the brain showed an old large right hemispheric infarcts. No other acute abnormality is seen. 16 history of seizures, maintained on a combination of Vimpat and Depakote on outpatient basis 17 chronic anemia, with interval drop in hemoglobin down to 6.8 and the patient will be receiving a unit of packed RBC and follow-up hemoglobin is at 9.2 18 bipolar disorder, depression, anxiety 19 carotid artery stenosis, critical on the right 20 altered mental status and neurologist on the case, and the patient is clinically improving and seizure activity has been ruled out. The patient is normalized in terms of her mentation and the patient was able to pass a swallow evaluation and currently she is taking. Honey thick thick material. On today 's evaluation the patient was found to be a bit somnolent and sleepy. The sacral dose will be modified. Thank you: The patient was seen and evaluated by Dr. Foley She is currently stable from the pulmonary and critical care standpoint She is hoping to go home and lives with her sister according to the patient Home once cleared medically I, the cosigning physician, performed a history & physical examination of the patient. Lungs sounds are clear. Maintaining good O2 saturations in the 90s on room air. I discussed the assessment and plan of care with my nurse practitio isa, Ruth Manzanares. I attest to the above note as dictated by her.
[2020-03-09 12:04] LABS: Glucose,Whole Blood 373 mg/dL (75-99)
--- NOTE | 2020-03-09 13:50 | P.PN ---
Subjective Progress Note Date: 03/09/20 Principal diagnosis: acute on chronic anemia patient is seen lying in bed. Tolerating diet. No nausea or vomiting. No bowel movements today or signs or symptoms of GI bleed. Objective - Vital Signs Vital signs: Vital Signs Temp 98.1 F 03/09/20 07:00 Pulse 98 03/09/20 07:55 Resp 20 03/09/20 07:00 BP 118/59 03/09/20 07:00 Pulse Ox 92 L 03/09/20 07:00 Intake & Output 03/08/20 03/09/20 03/09/20 18:59 06:59 18:59 Intake Total 370 500 Balance 370 500 Weight 50.4 kg Intake: IV 250 D5-0.45% NaCl with KCl 250 20Meq/l 1,000 ml @ 50 mls /hr IV .Q20H [facility] Rx#: [id number] Oral 120 500 Other: Voiding Method Indwelling Catheter Incontinent Incontinent # Voids 1 ABP, PAP, CO, CI - Last Documented Arterial Blood Pressure 92/57 - Exam On physical examination, patient appears comfortable in no apparent distress. HEAD: Normocephalic, atraumatic. EYES: No scleral icterus. No conjunctival injection. MOUTH: No lesions, tongue midline. NECK: Trachea midline, no gross abnormalities. ABDOMEN: Soft, thin and nontender. Bowel sounds are positive. No organomegaly. No guarding or rigidity. EXTREMITIES: No pedal edema. SKIN: No rashes, no jaundice. NEUROLOGIC: Alert and oriented to person and place. - Labs CBC & Chem 7: 03/09/20 05:51 03/09/20 05:51 Labs: Abnormal Lab Results - Last 24 Hours (Table) 03/08/20 03/08/20 03/09/20 Range/Units 12:10 21:26 05:51 WBC 3.0 L (3.8-10.6) k/uL RBC 2.85 L (3.80-5.40) m/uL Hgb 8.7 L (11.4-16.0) gm/dL Hct 27.0 L (34.0-46.0) % RDW 16.1 H (11.5-15.5) % Plt Count 102 L (150-450) k/uL Neutrophils # 1.0 L (1.3-7.7) k/uL Chloride (98-107) mmol/L Glucose (74-99) mg/dL POC Glucose (mg/dL) 164 H 171 H (75-99) mg/dL Calcium (8.4-10.2) mg/dL Total Protein (6.3-8.2) g/dL Albumin (3.5-5.0) g/dL 03/09/20 03/09/20 Range/Units 05:51 07:35 WBC (3.8-10.6) k/uL RBC (3.80-5.40) m/uL Hgb (11.4-16.0) gm/dL Hct (34.0-46.0) % RDW (11.5-15.5) % Plt Count (150-450) k/uL Neutrophils # (1.3-7.7) k/uL Chloride 110 H (98-107) mmol/L Glucose 223 H (74-99) mg/dL POC Glucose (mg/dL) 279 H (75-99) mg/dL Calcium 8.0 L (8.4-10.2) mg/dL Total Protein 5.1 L (6.3-8.2) g/dL Albumin 2.2 L (3.5-5.0) g/dL Assessment and Plan (1) Acute on chronic anemia Narrative/Plan: 59-year-old female with multiple medical comorbiditiesincluding anemia of chronic disease with a baseline hemoglobin of approximately 9-10 presents to the hospital and is being treated for right lung pneumonia as well as diabetic ketoacidosis. Currently she is in the ICU. The GI service was consult to see the patient due to an acute fall in her hemoglobin from baseline. Hemoglobin currently 7.7 after 1 unit of red blood cells. Iron studies are consistent with an iron deficiency anemia. Patient denies any abdominal pain and there've been no signs or symptoms of GI bleeding during hospitalization. She reports brown bowel movement today. She does report questionable dark bowel movements prior to presentation. She believes her last endoscopic evaluation was approximately 8-9 years ago with EGD and colonoscopy significant for polypectomy on colonoscopy. Unknown cause of anemia but suspicion is for multifactorial etiology given anemia of chronic disease,current treatment for pneumonia, cannot rule out a component of bleeding from GI tract or urinary tract or other etiology although the patient is denying any signs or symptoms at this time. hemoglobin remained stable today at 8.7. She continues to deny any signs or symptoms of GI bleeding. Current Visit: Yes Status: Acute Code(s): D64.9 - ANEMIA, UNSPECIFIED SNOMED Code(s): 225437140 (2) Diabetes Current Visit: No Status: Acute Code(s): E11.9 - TYPE 2 DIABETES MELLITUS WITHOUT COMPLICATIONS SNOMED Code(s): 54696201 Plan: supportive care Okay for diet as per recommendations by speech language pathology Continue to monitor hemoglobin and hematocrit and transfuse as needed Continue iron supplementation Continue to monitor for any signs or symptoms of GI bleed Continue Protonix therapy Patient would likely benefit from endoscopic evaluation when medically stable either prior to discharge or in the outpatient setting with EGD and/orcolonoscopy, we'll continue to follow and decision on timing will be made based on clinical course and laboratory evaluation Thank you for allowing us to participate in the care of the patient
[2020-03-09] MEDS ORDERED: MAGNESIUM HYDROXIDE 2,400 MG/10 ML CUP PO PRN (15:55)
[2020-03-09] MEDS ORDERED: INSULIN ASPART (NovoLOG) 100 UNIT/ML VIAL SQ ONE (16:00)
[2020-03-09 16:45] LABS: Glucose,Whole Blood 38 mg/dL (75-99)
[2020-03-09 16:59] LABS: Glucose,Whole Blood 41 mg/dL (75-99)
[2020-03-09 17:17] LABS: Glucose,Whole Blood 48 mg/dL (75-99)
[2020-03-09 17:30] LABS: Glucose,Whole Blood 52 mg/dL (75-99)
[2020-03-09] MEDS ORDERED: DEXTROSE 50% SYRINGE 50 ML IVP STA (17:47)
[2020-03-09 17:56] LABS: Glucose,Whole Blood 43 mg/dL (75-99)
[2020-03-09 18:21] LABS: Glucose,Whole Blood 169 mg/dL (75-99)
--- NOTE | 2020-03-09 20:42 | PN ---
PROGRESS NOTE DATE OF SERVICE: 03/09/2020 REASON FOR FOLLOWUP: 1. Positive blood culture likely contamination. 2. Possible aspiration pneumonia. INTERVAL HISTORY: Patient is currently afebrile. The patient is breathing more comfortably. The patient denies having any chest pain. No shortness of breath or cough. No abdominal pain or diarrhea. PHYSICAL EXAMINATION: Blood pressure is 101/57, pulse of 110. Temperature 98.2. She is 98% on room air. General description: The patient is a middle-aged female lying in bed in no distress. Respiratory system: Unlabored breathing, clear to auscultation anteriorly. Heart S1, S2. Regular rate and rhythm. ABDOMEN: Soft, no tenderness. LABS: No new labs have been obtained today. DIAGNOSTIC IMPRESSION AND PLAN: 1. Patient with a positive blood culture with concern for possible skin contamination. The patient is currently off vancomycin. 2. Patient with possible aspiration pneumonitis for which the patient currently on Levaquin and clindamycin to continue and monitor clinical course closely. MMODL / IJN: [id number] /
[2020-03-09 20:55] LABS: Glucose,Whole Blood 145 mg/dL (75-99)
[2020-03-09] MEDS: ATORVASTATIN 80 MG TAB PO SCH (21:08)
[2020-03-09] MEDS: QUEtiapine 50 MG TAB PO SCH (21:08)
[2020-03-10 02:35] LABS: Glucose,Whole Blood 151 mg/dL (75-99)
[2020-03-10 06:51] LABS: Glucose,Whole Blood 311 mg/dL (75-99)
[2020-03-10] MEDS: IPRATROPIUM-ALBUTEROL 3 ML NEB INHALATION SCH ×4 (07:09→19:25)
[2020-03-10] MEDS: CLOPIDOGREL 75 MG TAB PO SCH (08:13)
[2020-03-10] MEDS: FERROUS SULFATE 325 MG TAB PO SCH ×2 (08:13→20:36)
[2020-03-10] MEDS: DULoxetine HCL 60 MG CAPSULE.DR PO SCH (08:13)
[2020-03-10] MEDS: CLINDAMYCIN 150 MG CAP PO SCH ×3 (08:13→20:37)
[2020-03-10] MEDS: PANTOPRAZOLE 40 MG TABLET PO SCH (08:13)
[2020-03-10] MEDS: METOCLOPRAMIDE 10 MG TAB PO SCH ×3 (08:13→17:15)
[2020-03-10] MEDS: ENOXAPARIN 40 MG/0.4 ML SYRINGE SQ SCH (08:13)
[2020-03-10] MEDS: LEVOFLOXACIN 500 MG TAB PO SCH (08:13)
[2020-03-10] MEDS: LACOSAMIDE 50 MG TABLET PO SCH ×2 (08:14→20:37)
[2020-03-10] MEDS: DIVALPROEX 250 MG TABLET.DR PO SCH ×3 (08:14→20:37)
[2020-03-10] MEDS: ASPIRIN 81 MG PO SCH (08:14)
[2020-03-10] MEDS: INSULIN DETEMIR (LEVEMIR) 100 UNIT/ML SYR SQ SCH (08:14)
[2020-03-10] MEDS: LOSARTAN 50 MG TAB PO SCH (08:14)
[2020-03-10] MEDS: INSULIN ASPART (NovoLOG) 100 UNIT/ML VIAL SQ SCH ×4 (08:14→20:37)
[2020-03-10 11:21] LABS: Glucose,Whole Blood 274 mg/dL (75-99)
--- NOTE | 2020-03-10 12:04 | P.PN ---
Subjective Progress Note Date: 03/10/20 Melva Jackson, is a 59-year-old female who presented to [facility] emergency room due to nausea vomiting and diarrhea, and elevated glucose level, she was evaluated in the emergency room, her temperature on presentation was 90.1, pulse 75 respiration 18 blood pressure 79/51 pulse ox 94% on room air, her white blood count was elevated at 11.6 hemoglobin 9.6 platelet count 156, venous blood gas pH was 7.05 glucose level was 744 and serum acetone was positive, patient was admitted to ICU she was started on IV fluid and on IV insulin drip. Patient has a known history of insulin-dependent diabetes mellitus type 1 maintained on insulin he had previous episodes of DKA, she also had a history of stroke, history of hypertension, hyperlipidemia, coronary artery disease with myocardial infarction, peripheral vascular disease with multiple toe amputation, history of COPD. On review of systems patient is alert responsive in no apparent distress she was seen in ICU she is still complaining of nausea and occasional episodes of vomiting there is no fever or chills no headache or dizziness no chest pain no shortness of breath no cough she is having some abdominal discomfort no no burni ng with urination no frequency or urgency no hematuria. On 03/03/2020 patient remains in the intensive care unit. Patient does not appear in any kind of distress. She currently getting treated for pneumonia critical care services are following. Patient remains on Levaquin. Patient has been transitioned to subcu insulin patient did have episodes of low sugar this a.m. treated per protocol. On 03/04/2020 patient was seen and examined in the ICU, she was very drowsy this morning she failed swallow evaluation and is kept nothing by mouth at this time, now patient is more alert and responsive, glucose level is better controlled, she is complaining of low back pain otherwise she denies any complaints. On 03/05/2020 patient was seen and examined in the ICU she is more alert and responsive at this time she is complaining of feeling hungry however she failed swallow evaluation again this morning otherwise she denies any complaints there is no fever or chills no headache or dizziness no chest pain no shortness of breath no cough no nausea or vomiting no abdominal pain no diarrhea and no urinary symptoms. At this time plan is to repeat swallow evaluation in the morning again before discussing alternative feeding options. On 03/06/2020 patient is alert and oriented 2. Patient is much more alert than previous days. Patient does seem fidgety in bed but this is similar to her base line. Blood sugars continue to fluctuate. Patient having low blood sugar this a.m. requiring amp of D50. Patient also failed swallow. Currently on nectar thick and plans to eventually reassess swallowing the next few days per speech. Patient has been ordered out of the intensive care unit to [facility]. Patient denies chest pain or shortness of breath. Patient denies nausea vomiting or diarrhea. Patient denies any urinary burning or frequency On 03/07/2020 patient was seen and examined in the ICU she is alert and oriented in no apparent distress she is tolerating pured diet well, there is no fever or chills no headache or dizziness no chest pain no shortness of breath no cough no nausea or vomiting no abdominal pain no diarrhea no blood in the stool Daigle catheter is in place. On 03/08/2020 patient was seen and examined in the ICU she is alert and oriented 3 and answering questions appropriately , glucose levels has been better controlled in the last 24 hours she is tolerating pured diet well, there is no fever or chills no headache or dizziness, no chest pain no shortness of breath no cough no nausea or vomiting no abdominal pain no diarrhea and no urinary symptoms. On 03/09/2020 patient was seen and examined on the medical floor she is alert and oriented 3 in no apparent distress there is no fever or chills no headache or dizziness no chest pain no shortness of breath no cough no nausea or vomiting no abdominal pain no diarrhea no blood in the stools no burning with urination no frequency or urgency and no hematuria. on 03/10/2020 patient was seen and examined on the medical floor, she is alert and oriented 3 in no apparent distress, she is receiving pured diet and is tolerating well, there is no fever or chills no headache or dizziness no chest pain no shortness of breath no cough no nausea or vomiting no abdominal pain no diarrhea no blood in the stools no burning with urination no frequency or urgency no hematuria, yesterday she had hyperglycemia followed by hypoglycemia, patient has an ulcer on the left hip area with scabbing, there is also redness on both buttocks. Objective - Vital Signs Vital signs: Vital Signs Temp 97.9 F 03/10/20 08:00 Pulse 88 03/10/20 08:00 Resp 16 03/10/20 08:00 BP 120/71 03/10/20 08:00 Pulse Ox 92 L 03/10/20 08:00 Intake & Output 03/09/20 03/10/20 03/10/20 18:59 06:59 18:59 Other: Voiding Method Incontinent Incontinent Incontinent # Voids 3 3 ABP, PAP, CO, CI - Last Documented Arterial Blood Pressure 92/57 - Exam In general patient is alert responsive in no apparent distress HEENT head normocephalic and atraumatic Neck is supple no JVD no goiter no lymphadenopathy Chest exam reveals a few scattered rhonchi no wheezing Cardiac exam reveals regular heart sounds S1 and S2 with mild tachycardia no gallops no murmurs Abdomen is soft nontender no rigidity or rebound no palpable masses with hyperactive bowel sounds Extremity exam reveals no edema no cyanosis or clubbing Neurological examination reveals no gross new focal deficit - Labs CBC & Chem 7: 03/09/20 05:51 03/09/20 05:51 Labs: Abnormal Lab Results - Last 24 Hours (Table) 03/09/20 03/09/20 03/09/20 Range/Units 11:55 16:39 16:57 POC Glucose (mg/dL) 373 H 38 L 41 L (75-99) mg/dL 03/09/20 03/09/20 03/09/20 Range/Units 17:16 17:28 17:46 POC Glucose (mg/dL) 48 L 52 L 43 L (75-99) mg/dL 03/09/20 03/09/20 03/10/20 Range/Units 18:20 20:53 02:33 POC Glucose (mg/dL) 169 H 145 H 151 H (75-99) mg/dL 03/10/20 Range/Units 06:50 POC Glucose (mg/dL) 311 H (75-99) mg/dL Assessment and Plan Plan: 1. Acute diabetic ketoacidosis with severe hyperglycemia and positive serum acetone patient improved with IV fluid and IV insulin drip currently she is back on Levemir with a decreased dose to 10 units daily and sliding scale 2. Underlying history of diabetes mellitus type 1 maintained on insulin. 3. Underlying history of hypertension 4. Underlying history of hyperlipidemia 5. Underlying history of seizure disorder, patient is currently on Depakote 250 mg 3 times a day, and Vimpat 50 mg at bedtime 6. Underlying history of COPD stable no evidence of exacerbation 7. Underlying history of coronary artery disease stable at this time patient denies any chest pain 8. Underlying history of peripheral vascular disease with previous history of multiple toe amputations 9. Previous history of stroke. 10. Pneumonia , most likely related to aspiration , maintained on oral antibiotics at this time, Levaquin and clindamycin, pulmonary and infectious disease following 11. Positive blood cultures most likely contaminant. Patient is improving currently she is out of ICU on the medical floor she is tolerating pured diet well Continue with current management possible discharge to home on Wednesday if stable
--- NOTE | 2020-03-10 14:58 | P.PN ---
Subjective Progress Note Date: 03/10/20 Principal diagnosis: acute on chronic anemia Patient is seen lying in bed currently eating lunch with no complaints of abdominal pain. No signs or symptoms of GI bleeding with brown nonbloody bowel movement yesterday. Objective - Vital Signs Vital signs: Vital Signs Temp 97.9 F 03/10/20 08:00 Pulse 88 03/10/20 08:00 Resp 16 03/10/20 08:00 BP 120/71 03/10/20 08:00 Pulse Ox 92 L 03/10/20 08:00 Intake & Output 03/09/20 03/10/20 03/10/20 18:59 06:59 18:59 Other: Voiding Method Incontinent Incontinent Incontinent # Voids 3 3 ABP, PAP, CO, CI - Last Documented Arterial Blood Pressure 92/57 - Exam On physical examination, patient appears comfortable in no apparent distress. HEAD: Normocephalic, atraumatic. EYES: No scleral icterus. No conjunctival injection. MOUTH: No lesions, tongue midline. NECK: Trachea midline, no gross abnormalities. ABDOMEN: Soft, thin and nontender. Bowel sounds are positive. No organomegaly. No guarding or rigidity. EXTREMITIES: No pedal edema. SKIN: No rashes, no jaundice. NEUROLOGIC: Alert and oriented to person and place. - Labs CBC & Chem 7: 03/09/20 05:51 03/09/20 05:51 Labs: Abnormal Lab Results - Last 24 Hours (Table) 03/09/20 03/09/20 03/09/20 Range/Units 11:55 16:39 16:57 POC Glucose (mg/dL) 373 H 38 L 41 L (75-99) mg/dL 03/09/20 03/09/20 03/09/20 Range/Units 17:16 17:28 17:46 POC Glucose (mg/dL) 48 L 52 L 43 L (75-99) mg/dL 03/09/20 03/09/20 03/10/20 Range/Units 18:20 20:53 02:33 POC Glucose (mg/dL) 169 H 145 H 151 H (75-99) mg/dL 03/10/20 Range/Units 06:50 POC Glucose (mg/dL) 311 H (75-99) mg/dL Assessment and Plan (1) Acute on chronic anemia Narrative/Plan: 59-year-old female with multiple medical comorbiditiesincluding anemia of chronic disease with a baseline hemoglobin of approximately 9-10 presents to the hospital and is being treated for right lung pneumonia as well as diabetic ket oacidosis. Currently she is in the ICU. The GI service was consult to see the patient due to an acute fall in her hemoglobin from baseline. Hemoglobin currently 7.7 after 1 unit of red blood cells. Iron studies are consistent with an iron deficiency anemia. Patient denies any abdominal pain and there've been no signs or symptoms of GI bleeding during hospitalization. She reports brown bowel movement today. She does report questionable dark bowel movements prior to presentation. She believes her last endoscopic evaluation was approximately 8-9 years ago with EGD and colonoscopy significant for polypectomy on colonoscopy. Unknown cause of anemia but suspicion is for multifactorial etio logy given anemia of chronic disease,current treatment for pneumonia, cannot rule out a component of bleeding from GI tract or urinary tract or other etiology although the patient is denying any signs or symptoms at this time. hemoglobin remained stable at 8.7. She continues to deny any signs or symptoms of GI bleeding, with brown bowel movement last. Current Visit: Yes Status: Acute Code(s): D64.9 - ANEMIA, UNSPECIFIED SNOMED Code(s): 891886687 (2) Diabetes Current Visit: No Status: Acute Code(s): E11.9 - TYPE 2 DIABETES MELLITUS WITHOUT COMPLICATIONS SNOMED Code(s): 70559528 Plan: supportive care Okay for diet as per recommendations by speech language pathology Continue to monitor hemoglobin and hematocrit and transfuse as needed Continue iron supplementation Continue to monitor for any signs or symptoms of GI bleed Continue Protonix therapy Okay for discharge when otherwise medically stable Patient in follow-up for discussion about endoscopic evaluation in the outpatient setting Thank you for allowing us to participate in the care of the patient, please call us back with any questions or concerns
[2020-03-10 16:44] LABS: Glucose,Whole Blood 138 mg/dL (75-99)
[2020-03-10 20:19] LABS: Glucose,Whole Blood 200 mg/dL (75-99)
[2020-03-10] MEDS: ATORVASTATIN 80 MG TAB PO SCH (20:36)
[2020-03-10] MEDS: QUEtiapine 50 MG TAB PO SCH (20:37)
[2020-03-11 02:14] LABS: Glucose,Whole Blood 244 mg/dL (75-99)
--- NOTE | 2020-03-11 02:38 | PN ---
PROGRESS NOTE DATE OF SERVICE: 03/10/2020 REASON FOR FOLLOWUP: 1. Possible aspiration pneumonia. 2. Pressure ulcer. INTERVAL HISTORY: Patient is currently afebrile. The patient is breathing comfortably. Denies having any chest pain. No shortness of breath or cough. No nausea, no vomiting. No abdominal pain or diarrhea, but the patient was constipated requiring laxative. She was noticed to have a pressure ulcer to the right hip area by the nursing staff. The patient did not have a significant symptom to the area. PHYSICAL EXAMINATION: Blood pressure 100/62 with a pulse of 101, temperature 98.4. She is 98% on room air. General description is a middle-aged female lying in bed in no distress. RESPIRATORY SYSTEM: Unlabored breathing, clear to auscultation anteriorly. HEART: S1, S2. Regular rate and rhythm. ABDOMEN: Soft, no tenderness. LABS: No new labs have been obtained today. DIAGNOSTIC IMPRESSION AND PLAN: 1. Patient with positive blood culture, likely skin contaminant. 2. Pneumonia, possible aspiration. Overall improvement on Levaquin and plan to continue Levaquin. Discontinue the daptomycin. 3. Hip area unstageable pressure ulcer. Local care with [facility] followed by moist dressing to be changed daily and keep the area off the pressure. MMODL / IJN: [id number] /
[2020-03-11 06:46] LABS: Glucose,Whole Blood 443 mg/dL (75-99)
[2020-03-11] MEDS: INSULIN DETEMIR (LEVEMIR) 100 UNIT/ML SYR SQ SCH (07:38)
[2020-03-11] MEDS: INSULIN ASPART (NovoLOG) 100 UNIT/ML VIAL SQ SCH ×5 (07:38→20:19)
[2020-03-11] MEDS: METOCLOPRAMIDE 10 MG TAB PO SCH ×3 (07:39→17:32)
[2020-03-11] MEDS: CLOPIDOGREL 75 MG TAB PO SCH (07:39)
[2020-03-11] MEDS: DULoxetine HCL 60 MG CAPSULE.DR PO SCH (07:39)
[2020-03-11] MEDS: ASPIRIN 81 MG PO SCH (07:39)
[2020-03-11] MEDS: PANTOPRAZOLE 40 MG TABLET PO SCH (07:39)
[2020-03-11] MEDS: LEVOFLOXACIN 500 MG TAB PO SCH (07:40)
[2020-03-11] MEDS: DIVALPROEX 250 MG TABLET.DR PO SCH ×3 (07:40→20:35)
[2020-03-11] MEDS: LACOSAMIDE 50 MG TABLET PO SCH ×2 (07:40→20:35)
[2020-03-11] MEDS: ENOXAPARIN 40 MG/0.4 ML SYRINGE SQ SCH (07:40)
[2020-03-11] MEDS: FERROUS SULFATE 325 MG TAB PO SCH ×2 (07:40→20:35)
[2020-03-11] MEDS: LOSARTAN 50 MG TAB PO SCH (07:41)
[2020-03-11] MEDS: IPRATROPIUM-ALBUTEROL 3 ML NEB INHALATION SCH ×4 (08:18→20:19)
[2020-03-11 11:26] LABS: Glucose,Whole Blood 289 mg/dL (75-99)
--- NOTE | 2020-03-11 13:12 | P.PN ---
Subjective Progress Note Date: 03/11/20 Principal diagnosis: Diabetic ketoacidosis, recovered, right-sided pneumonia, improved this is a 59-year-old female patient who came in with nausea vomiting and diarrhea and profound dehydration the patient wasiagnosed having DKA. She has previous history of CVA, hypertension, coronary artery dase, chronic kidney disease. The patient has had previous admissions for DKA. She was also diagnosed having some bilateral low as the patient had bilateral lower lobe pulmonary infiltrate right more than left. She was given Levaquin and vancomycin. The patient was treated with an insulin drip regarding her DKA. She has multiple comorbidities. This morning, the patient is still on IV fluids. She is on D5 half-normal saline with 20 mEq of potassium chloride the rate of 75 mL an hour. She had a follow-up blood work that showed resolution of her anion gap metabolic acidosis. A serum bicarbonate of 29 with anion gap of the right this point in time. Her hemoglobin was found to be at 6.8 and the patient was given a unit of packed RBC. No evidence of any bleeding at this point in time. The chest x-rays clear showing a right upper lobe consolidation/pneumonia. There is a central blood culture that showing also gram-positive cocci. Based on that, I kept the Levaquin and vancomycin and added clindamycin regarding the possibility of a right upper lobe aspiration pn eumonia. The patient was also lethargic and confused and based on that and based on history of seizure activity, and neurology consultation was requested. Noted the patient was taking a combination of Vimpat and Depakote on outpatient basis. At this point in time she is unable to take her medications orally as the patient has failed a swallow bedside evaluation. The Depakote level has not been checked yet. Noted the patient also has a critical internal carotid artery stenosis on the left and the patient remains on aspirin on outpatient basis and vascular surgery has been requested to see this patient the past. On 03/05/2020, the patient is doing well. She is much more awake and alert compared to yesterday. His swallow evaluation will be repeated today. The patient seems to be able to pass her swallow evaluation patient is currently on 2 L about 2 by nasal cannula with a pulse of 97%. She was on a D5 half-normal saline at the rate of 150 mL an hour and this can be obviously cut down further. Chest exit shows improvement in the right upper lobe pneumonia as the patient is a combination of Levaquin and clindamycin. No cough. No sputum production. No chest that is no wheezing. The neurologist evaluated the patient and the patient had an EGD that showed no evidence of any seizure activity and will continue the antiepileptic medication which include a combination of Vimpat 75 mg by mouth twice a day and Depakote 250 mg 3 times a day. The patient would also need a follow-up evaluation with vascular surgery regarding her carotid artery stenosis which is significant on the left. 03/06/2020, the patient is having another swallow evaluation. She remains nothing by mouth based on the failed swallow evaluation done earlier. Earlier this morning she also had few episodes of hypoglycemia. I lowered the Lantus dose down to 10 units a day. I also started the patient on D5 half-normal at the rate of 50 mL An hour. We are awaiting another swallow evaluation. The patient is showing some silent aspiration on nectar thick material based on a swallow evaluation. The patient otherwise is resting comfortably in bed. No signs of an acute pneumonia. She continues to take a combination of Levaquin and clindamycin which can be switched to oral crushed medication regarding her aspiration pneumonia which involves the right upper lobe. No other significant events overnight. No seizure activity. She remains on her antiepileptic medication. Awaiting another swallow evaluation for now. 03/07/2020, the patient is having some pured honey thick diet. She was able to pass a swallow evaluation. Doing well. No specific complaints. The patient is still being cheered for right upper lobe aspiration pneumonia with accommodation Levaquin and clindamycin. The blood culture was positive for staph hominis a contaminant. The patient's white cell count is at 3.7. The blood sugar still fluctuating being as low as 73 and as high as 85. I'm going to give her based on her medicine of 10 units on a daily basis and addition to a scale coverage. No seizure activity has been noted. Antiepileptic medication was switched to oral form. She is on a combination of Vimpat and Depakote. Otherwise, she is afebrile and she is hemodynamic is stable. Her anion gap is down to 5 and the patient has a bicarb of 26. No other significant events otherwise for now. 03/08/2020, the patient is doing well. She was a bit sleepy earlier this morning and felt that this was a residual "effect from nighttime Seroquel intake.. The patient's otherwise is tolerating her diet. She has no specific complaints. She is on a D5 half-normal infusion to date of 50 mL an hour. On room air oxygen, the pulse is above 90%. She is on a Levemir insulin 10 units along with a slight scale coverage. She is being treated for an aspiration pneumonia with a combination of Levaquin and tobramycin. No other issues for now. The white cell count is at 2.7 with a hemoglobin of 7.6. Serum bicarbonate 29 gap of 3. The BUN is at 7 with a creatinine of 0.78. The patient is seen today 03/09/2020 in follow-up on the regular medical floor. She is currently resting comfortably in bed. More awake and alert. Denies any worsening shortness of breath, cough or congestion. She is maintaining good O2 saturations in the 90s on room air. She's been afebrile. Status post 1 unit of packed red blood cells this admission. Current hemoglobin 8.7. White count 3.0. Platelets 102. Sodium 141. Potassium 3.9. Creatinine 0.74. She remains on Cleocin, Levaquin, bronchodilators. She is anxious to go home. Stating she lives with her sister. On 03/11/2020 patient seen in follow-up on the jaw medical surgical floor. She is awake and alert, she is quite restless in bed, but no acute distress, no difficulty breathing, she is currently on room air with pulse ox of 94-97%, she is afebrile, breathing is nonlabored, lung sounds are clear to auscultation, she's been tolerating oral intake, she is on a modified diet per speech therapy recommendations. She's had no acute events overnight, he continues on oral Levaquin for pneumonia, vital signs have been stable. Patient is calm and cooperative, alert and awake oriented 3, no cough or congestion, no chest pain or hemoptysis, ID service is following, daptomycin has been discontinued, and patient continues on Levaquin, patient had one positive blood culture that was thought to be related to skin contaminant. Objective - Vital Signs Vital signs: Vital Signs Temp 98.0 F 03/11/20 07:00 Pulse 88 10/12/20 11:54 Resp 16 03/11/20 07:00 BP 151/84 03/11/20 07:00 Pulse Ox 97 03/11/20 07:00 Intake & Output 03/10/20 03/11/20 03/11/20 18:59 06:59 18:59 Intake Total 180 Balance 180 Intake: Oral 180 Other: Voiding Method Incontinent Incontinent Incontinent # Voids 1 2 # Bowel Movements 1 2 ABP, PAP, CO, CI - Last Documented Arterial Blood Pressure 92/57 - Exam GENERAL EXAM: Alert, very pleasant, 59-year-old frail looking female, laying across the bed, slightly restless in bed, fairly cooperative, with left-sided weakness, and chronic contracture of the left upper extremity, comfortable in no apparent distress. HEAD: Normocephalic/atraumatic. EYES: Normal reaction of pupils, equal size. Conjunctiva pink, sclera white. NOSE: Clear with pink turbinates. THROAT: No erythema or exudates. NECK: No masses, no JVD, no thyroid enlargement, no adenopathy. CHEST: No chest wall deformity. Symmetrical expansion. LUNGS: Equal air entry with no crackles, wheeze, rhonchi or dullness. CVS: Regular rate and rhythm, normal S1 and S2, no gallops, no murmurs, no rubs ABDOMEN: Soft, nontender. No hepatosplenomegaly, normal bowel sounds, no guarding or rigidity. EXTREMITIES: No clubbing, no edema, no cyanosis, 2+ pulses and upper and lower extremities. MUSCULOSKELETAL: Muscle strength and tone normal. Chronic contracture of left upper extremity and left hand SPINE: No scoliosis or deformity SKIN: No rashes CENTRAL NERVOUS SYSTEM: Alert and oriented -3. No focal deficits, tone is normal in all 4 extremities. PSYCHIATRIC: Alert and oriented -3. Appropriate affect. Intact judgment and insight. - Labs CBC & Chem 7: 03/09/20 05:51 03/09/20 05:51 Labs: Abnormal Lab Results - Last 24 Hours (Table) 03/10/20 03/10/20 03/11/20 Range/Units 16:41 20:16 02:13 POC Glucose (mg/dL) 138 H 200 H 244 H (75-99) mg/dL 03/11/20 03/11/20 Range/Units 06:45 11:25 POC Glucose (mg/dL) 443 H 289 H (75-99) mg/dL Assessment and Plan Plan: Assessment: 1 diabetic ketoacidosis, recovered 2 right-sided pneumonia mainly involving the right upper lobe, consider aspiration, and the patient is currently on accommodation of Levaquin and clindamycin and there is improvement in the right upper lobe consolidation on today's chest x-ray findings. The patient is currently taking a combination of oral Levaquin and clindamycin. Blood culture was positive for staph hominis which is a contaminant. Recovered and on room air 3 diabetes mellitus with previous episodes of DKA, currently on Levemir insulin 10 units along with Effexor coverage. Blood sugars under adequate control. 4 diabetic peripheral neuropathy, retinopathy 5 coronary artery disease with a preserved LV function based on echocardiogramfrom 2018 6 COPD 7 history of DVT , axilla , on the right 9 hyperlipidemia 10 hypertension 11 chronic kidney disease, with a component of an acute kidney injury, improved 12 peripheral artery disease 13 hypothyroidism 14 previous history of second toe infection/amputation and previous history of right foot infection requiring a wound VAC 15 CVA with someresidual left-sided weakness, and the CAT scan of the brain francisca wed an old large right hemispheric infarcts. No other acute abnormality is seen. 16 history of seizures, maintained on a combination of Vimpat and Depakote on outpatient basis 17 chronic anemia, with interval drop in hemoglobin down to 6.8 and the patient will be receiving a unit of packed RBC and follow-up hemoglobin is at 9.2 18 bipolar disorder, depression, anxiety 19 carotid artery stenosis, critical on the right 20 altered mental status and neurologist on the case, and the patient is clinically improving and seizure activity has been ruled out. The patient is normalized in terms of her mentation and the patient was able to pass a swallow evaluation and currently she is taking. Honey thick thick material. On today's evaluation the patient was found to be a bit somnolent and sleepy. The sacral dose will be modified. Plan: Patient is doing well, no difficulty breathing, no cough congestion, no hemoptysis or chest pain, has been afebrile, she continues on oral Levaquin, no acute events overnight, maintain aspiration precautions, from pulmonary perspective patient is stable and could be considered for discharge home, were told the patient resides with a caregiver who stays with her 21/12. She will need outpatient follow-up in the office in 7-10 days. I performed a history & physical examination of the patient and discussed their management with my nurse practitioner, Dolly Bryan. I reviewed the nurse practitioner's note and agree with the documented findings and plan of care. Lung sounds are positive for diminished breath sounds. The findings and the i mpression was discussed with the patient. I attest to the documentation by the nurse practitioner. Time with Patient: Less than 30
[2020-03-11 16:42] LABS: Glucose,Whole Blood 180 mg/dL (75-99)
--- NOTE | 2020-03-11 18:50 | P.PN ---
Subjective Progress Note Date: 03/11/20 Melva Jackson, is a 59-year-old female who presented to [facility] emergency room due to nausea vomiting and diarrhea, and elevated glucose level, she was evaluated in the emergency room, her temperature on presentation was 90.1, pulse 75 respiration 18 blood pressure 79/51 pulse ox 94% on room air, her white blood count was elevated at 11.6 hemoglobin 9.6 platelet count 156, venous blood gas pH was 7.05 glucose level was 744 and serum acetone was positive, patient was admitted to ICU she was started on IV fluid and on IV insulin drip. Patient has a known history of insulin-dependent diabetes mellitus type 1 maintained on insulin he had previous episodes of DKA, she also had a history of stroke, history of hypertension, hyperlipidemia, coronary artery disease with myocardial infarction, peripheral vascular disease with multiple toe amputation, history of COPD. On review of systems patient is alert responsive in no apparent distress she was seen in ICU she is still complaining of nausea and occasional episodes of vomiting there is no fever or chills no headache or dizziness no chest pain no shortness of breath no cough she is having some abdominal discomfort no no burni ng with urination no frequency or urgency no hematuria. On 03/03/2020 patient remains in the intensive care unit. Patient does not appear in any kind of distress. She currently getting treated for pneumonia critical care services are following. Patient remains on Levaquin. Patient has been transitioned to subcu insulin patient did have episodes of low sugar this a.m. treated per protocol. On 03/04/2020 patient was seen and examined in the ICU, she was very drowsy this morning she failed swallow evaluation and is kept nothing by mouth at this time, now patient is more alert and responsive, glucose level is better controlled, she is complaining of low back pain otherwise she denies any complaints. On 03/05/2020 patient was seen and examined in the ICU she is more alert and responsive at this time she is complaining of feeling hungry however she failed swallow evaluation again this morning otherwise she denies any complaints there is no fever or chills no headache or dizziness no chest pain no shortness of breath no cough no nausea or vomiting no abdominal pain no diarrhea and no urinary symptoms. At this time plan is to repeat swallow evaluation in the morning again before discussing alternative feeding options. On 03/06/2020 patient is alert and oriented 2. Patient is much more alert than previous days. Patient does seem fidgety in bed but this is similar to her base line. Blood sugars continue to fluctuate. Patient having low blood sugar this a.m. requiring amp of D50. Patient also failed swallow. Currently on nectar thick and plans to eventually reassess swallowing the next few days per speech. Patient has been ordered out of the intensive care unit to [facility]. Patient denies chest pain or shortness of breath. Patient denies nausea vomiting or diarrhea. Patient denies any urinary burning or frequency On 03/07/2020 patient was seen and examined in the ICU she is alert and oriented in no apparent distress she is tolerating pured diet well, there is no fever or chills no headache or dizziness no chest pain no shortness of breath no cough no nausea or vomiting no abdominal pain no diarrhea no blood in the stool Daigle catheter is in place. On 03/08/2020 patient was seen and examined in the ICU she is alert and oriented 3 and answering questions appropriately , glucose levels has been better controlled in the last 24 hours she is tolerating pured diet well, there is no fever or chills no headache or dizziness, no chest pain no shortness of breath no cough no nausea or vomiting no abdominal pain no diarrhea and no urinary symptoms. On 03/09/2020 patient was seen and examined on the medical floor she is alert and oriented 3 in no apparent distress there is no fever or chills no headache or dizziness no chest pain no shortness of breath no cough no nausea or vomiting no abdominal pain no diarrhea no blood in the stools no burning with urination no frequency or urgency and no hematuria. on 03/10/2020 patient was seen and examined on the medical floor, she is alert and oriented 3 in no apparent distress, she is receiving pured diet and is tolerating well, there is no fever or chills no headache or dizziness no chest pain no shortness of breath no cough no nausea or vomiting no abdominal pain no diarrhea no blood in the stools no burning with urination no frequency or urgency no hematuria, yesterday she had hyperglycemia followed by hypoglycemia, patient has an ulcer on the left hip area with scabbing, there is also redness on both buttocks. On 03/11/2020 patient was seen and examined on the medical floor, she is alert and oriented 3 in no distress there is no fever or chills no headache or dizziness. Chest pain no shortness of breath no cough no nausea or vomiting no abdominal pain no diarrhea no blood in the stools no burning with urination no frequency or urgency no hematuria, patient is tolerating pured diet well no evidence of aspiration at this time Objective - Vital Signs Vital signs: Vital Signs Temp 97.6 F 03/11/20 14:49 Pulse 100 03/11/20 15:49 Resp 18 03/11/20 14:49 BP 104/51 03/11/20 14:49 Pulse Ox 99 03/11/20 14:49 Intake & Output 03/10/20 03/11/20 03/11/20 18:59 06:59 18:59 Intake Total 180 Balance 180 Weight 50.4 kg Intake: Oral 180 Other: Voiding Method Incontinent Incontinent Incontinent # Voids 1 2 3 # Bowel Movements 1 2 1 ABP, PAP, CO, CI - Last Documented Arterial Blood Pressure 92/57 - Exam In general patient is alert responsive in no apparent distress HEENT head normocephalic and atraumatic Neck is supple no JVD no goiter no lymphadenopathy Chest exam reveals a few scattered rhonchi no wheezing Cardiac exam reveals regular heart sounds S1 and S2 with mild tachycardia no gallops no murmurs Abdomen is soft nontender no rigidity or rebound no palpable masses with hyperactive bowel sounds Extremity exam reveals no edema no cyanosis or clubbing Neurological examination reveals no gross new focal deficit - Labs CBC & Chem 7: 03/09/20 05:51 03/09/20 05:51 Labs: Abnormal Lab Results - Last 24 Hours (Table) 03/10/20 03/11/20 03/11/20 Range/Units 20:16 02:13 06:45 POC Glucose (mg/dL) 200 H 244 H 443 H (75-99) mg/dL 03/11/20 03/11/20 Range/Units 11:25 16:41 POC Glucose (mg/dL) 289 H 180 H (75-99) mg/dL Assessment and Plan Plan: 1. Acute diabetic ketoacidosis with severe hyperglycemia and positive serum acetone patient improved with IV fluid and IV insulin drip currently she is back on Levemir with a decreased dose to 10 units daily and sliding scale 2. Underlying history of diabetes mellitus type 1 maintained on insulin. 3. Underlying history of hypertension 4. Underlying history of hyperlipidemia 5. Underlying history of seizure disorder, patient is currently on Depakote 250 mg 3 times a day, and Vimpat 50 mg at bedtime 6. Underlying history of COPD stable no evidence of exacerbation 7. Underlying history of coronary artery disease stable at this time patient denies any chest pain 8. Underlying history of peripheral vascular disease with previous history of multiple toe amputations 9. Previous history of stroke. 10. Pneumonia , most likely related to aspiration , maintained on oral antibiotics at this time, Levaquin and clindamycin, pulmonary and infectious disease following 11. Positive blood cultures most likely contaminant. Patient is improving currently she is out of ICU on the medical floor she is tolerating pured diet well Continue with current management possible discharge to home on Wednesday if stable
--- NOTE | 2020-03-11 20:22 | P.PN ---
Subjective Progress Note Date: 03/11/20 Patient was seen for a follow-up. Patient seen by Dr. Bairon Kearns in neurology consultation on 03/04/2020. Please refer to his notes for detail. This is the covering note. 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 Patient came to the hospital for altered mental status. Patient diagnosed with toxic metabolic encephalopathy related to DKA and right-sided pneumonia. Patient has not had any seizures on this admission. She is currently on Depakote 250 mg 3 times a day and Vimpat 100 mg a.m. and 50 mg at bedtime. Patient's free Depakote level is 14.9 (4.8-17.3). Patient offers no complaints. Patient admits that she has "little headache". She is asking for food and water. Objective - Vital Signs Vital signs: Vital Signs Temp 97.6 F 03/11/20 14:49 Pulse 100 03/11/20 15:49 Resp 18 03/11/20 14:49 BP 104/51 03/11/20 14:49 Pulse Ox 99 03/11/20 14:49 Intake & Output 03/11/20 03/11/20 03/12/20 06:59 18:59 06:59 Weight 50.4 kg Other: Voiding Method Incontinent Incontinent # Voids 2 3 # Bowel Movements 2 1 ABP, PAP, CO, CI - Last Documented Arterial Blood Pressure 92/57 - Exam Patient is alert and awake. She could not tell what month and year is it. She however knows that she is in [facility] in [facility]. She knows name of the current president. Speech is clear. She states that she is legally blind. Her face is symmetric. Muscle strength is normal in the arms and legs. She did not cooperate well with lower extremity and ankle testing for muscle strength. Tone and bulk of muscles normal. - Labs CBC & Chem 7: 03/09/20 05:51 03/09/20 05:51 Labs: Abnormal Lab Results - Last 24 Hours (Table) 03/10/20 03/11/20 03/11/20 Range/Units 20:16 02:13 06:45 POC Glucose (mg/dL) 200 H 244 H 443 H (75-99) mg/dL 03/11/20 03/11/20 Range/Units 11:25 16:41 POC Glucose (mg/dL) 289 H 180 H (75-99) mg/dL Assessment and Plan Assessment: * Toxic metabolic encephalopathy due to DKA and right-sided pneumonia. * History of seizure disorder, currently in remission. * History of CVA right MCA territory CVA with mild residual deficits. * Asymptomatic left ICA stenosis, with chronic right ICA occlusion. * Diabetes * Hypertension * Hyperlipidemia * coronary artery disease. Plan: * Patient's seizures are well controlled. Patient currently on Vimpat 100 mg in a.m. and 50 mg at bedtime and Depakote 250 mg 3 times a day. Her free Depakote level is 14.9 (4.8-17.3) on 03/06/2020. If patient has any breakthrough seizures, would recommend increasing dose of Vimpat to 100 mg twice a day. * Patient also on dual antiplatelet medication for atherosclerotic cerebrovas cular disease, and high-dose statins. * Your medical management. * Neurology will sign off. Please call neurology if any concerns.
[2020-03-11 20:23] LABS: Glucose,Whole Blood 81 mg/dL (75-99)
[2020-03-11] MEDS: ATORVASTATIN 80 MG TAB PO SCH (20:35)
[2020-03-11] MEDS: QUEtiapine 50 MG TAB PO SCH (20:35)
[2020-03-12 01:24] LABS: Glucose,Whole Blood 279 mg/dL (75-99)
--- NOTE | 2020-03-12 02:23 | PN ---
PROGRESS NOTE DATE OF SERVICE: 03/11/2020 REASON FOR FOLLOWUP: Pneumonia and a pressure ulcer on the hip. INTERVAL HISTORY: The patient is currently afebrile. She is breathing comfortably on room air. No chest pain, shortness of breath or cough. No nausea, vomiting or diarrhea reported. PHYSICAL EXAMINATION: Her blood pressure is 104/51 with a pulse of 97, temperature 97.6. She is 99% on room air. General description is a middle-aged female lying in bed in no distress. RESPIRATORY SYSTEM: Unlabored breathing, decreased intensity of breath sounds. No wheeze. HEART: S1, S2. Regular rate and rhythm. ABDOMEN: Soft, no tenderness. LABS: No new labs have been obtained today. DIAGNOSTIC IMPRESSION AND PLAN: 1. Patient with pneumonia, possible aspiration, community acquired. Covered with Levaquin, continue for a few days. 2. Right pressure ulcer. Local wound care with Medihoney followed by moist dressing. Continue supportive care. MMODL / IJN: [id number] /
[2020-03-12 06:57] LABS: Glucose,Whole Blood 461 mg/dL (75-99)
[2020-03-12] MEDS: INSULIN ASPART (NovoLOG) 100 UNIT/ML VIAL SQ SCH ×4 (08:23→21:23)
[2020-03-12] MEDS: ENOXAPARIN 40 MG/0.4 ML SYRINGE SQ SCH (08:23)
[2020-03-12] MEDS: FERROUS SULFATE 325 MG TAB PO SCH ×2 (08:24→21:23)
[2020-03-12] MEDS: INSULIN DETEMIR (LEVEMIR) 100 UNIT/ML SYR SQ SCH (08:24)
[2020-03-12] MEDS: DULoxetine HCL 60 MG CAPSULE.DR PO SCH (08:24)
[2020-03-12] MEDS: DIVALPROEX 250 MG TABLET.DR PO SCH ×3 (08:24→21:23)
[2020-03-12] MEDS: METOCLOPRAMIDE 10 MG TAB PO SCH ×3 (08:24→17:22)
[2020-03-12] MEDS: CLOPIDOGREL 75 MG TAB PO SCH (08:25)
[2020-03-12] MEDS: LACOSAMIDE 50 MG TABLET PO SCH ×2 (08:25→21:23)
[2020-03-12] MEDS: ASPIRIN 81 MG PO SCH (08:25)
[2020-03-12] MEDS: LOSARTAN 50 MG TAB PO SCH (08:35)
[2020-03-12] MEDS: LEVOFLOXACIN 500 MG TAB PO SCH (08:35)
[2020-03-12] MEDS: PANTOPRAZOLE 40 MG TABLET PO SCH (08:36)
[2020-03-12] MEDS: IPRATROPIUM-ALBUTEROL 3 ML NEB INHALATION SCH ×4 (08:41→21:05)
[2020-03-12 12:06] LABS: Glucose,Whole Blood 153 mg/dL (75-99)
[2020-03-12 12:09] LABS: ALT 17 U/L (4-34); AST 28 U/L (14-36); African American GFR (CKD) 52 (>60 ml/min/1.73 sqM); Albumin 2.9 g/dL (3.5-5.0); Albumin/Globulin Ratio 0.9; Alkaline Phosphatase 82 U/L (38-126); Anion Gap 4 mmol/L; Blood Urea Nitrogen 24 mg/dL (7-17); Calcium 8.7 mg/dL (8.4-10.2); Carbon Dioxide 35 mmol/L (22-30); Chloride 101 mmol/L (98-107); Globulin 3.3 g/dL; Glucose 198 mg/dL (74-99); Non-African American GFR(CKD) 45 (>60 ml/min/1.73 sqM); Potassium 4.6 mmol/L (3.5-5.1); Sodium 140 mmol/L (137-145); Total Bilirubin 0.3 mg/dL (0.2-1.3); Total Protein 6.2 g/dL (6.3-8.2)
[2020-03-12 12:20] LABS: Anisocytosis Slight; Basophils % (A) 0 %; Eosinophils % (A) 1 %; HCT 31.8 % (34.0-46.0); HGB 9.7 gm/dL (11.4-16.0); Hypochromasia Slight; Lymphocytes # (A) 1.7 k/uL (1.0-4.8); Lymphocytes % (A) 38 %; MCH 29.4 pg (25.0-35.0); MCHC 30.6 g/dL (31.0-37.0); MCV 96.1 fL (80.0-100.0); Monocytes # (A) 0.2 k/uL (0-1.0); Monocytes % (A) 5 %; Neutrophils # (A) 2.4 k/uL (1.3-7.7); Neutrophils % (A) 55 %; RBC 3.31 m/uL (3.80-5.40); RDW 16.3 % (11.5-15.5); WBC 4.5 k/uL (3.8-10.6)
[2020-03-12 12:25] LABS: Platelet Count 247 k/uL (150-450)
[2020-03-12 17:00] LABS: Glucose,Whole Blood 91 mg/dL (75-99)
--- NOTE | 2020-03-12 17:11 | P.PN ---
Subjective Progress Note Date: 03/12/20 Patient was seen for a follow-up. Patient seen by Dr. Bairon Kearns in neurology consultation on 03/04/2020. Please refer to his notes for detail. This is the covering note. 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 Patient came to the hospital for altered mental status. Patient diagnosed with toxic metabolic encephalopathy related to DKA and right-sided pneumonia. Patient has not had any seizures on this admission. She is currently on Depakote 250 mg 3 times a day and Vimpat 100 mg a.m. and 50 mg at bedtime. Patient's free Depakote level is 14.9 (4.8-17.3). Patient offers no complaints. patient is feeling better. Apparently patient had a seizure type spells today. Patient was working with the physical therapy when she suddenly had a blank stare, and was unresponsive for about 60 seconds. Objective - Vital Signs Vital signs: Vital Signs Temp 97.9 F 03/12/20 14:22 Pulse 88 03/12/20 16:50 Resp 18 03/12/20 15:27 BP 102/68 03/12/20 14:22 Pulse Ox 97 03/12/20 14:22 Intake & Output 03/11/20 03/12/20 03/12/20 18:59 06:59 18:59 Intake Total 460 Balance 460 Weight 50.4 kg Intake: Oral 460 Other: Voiding Method Incontinent Incontinent Diaper Incontinent # Voids 3 3 1 # Bowel Movements 1 2 ABP, PAP, CO, CI - Last Documented Arterial Blood Pressure 92/57 - Exam Patient is alert and awake. Patient is laying diagonally across the bed with legs flexed. Patient has left spastic hemiparesis from previous CVA. - Labs CBC & Chem 7: 03/12/20 11:18 03/12/20 11:18 Labs: Abnormal Lab Results - Last 24 Hours (Table) 03/12/20 03/12/20 03/12/20 Range/Units 01:17 06:50 11:18 RBC 3.31 L (3.80-5.40) m/uL Hgb 9.7 L (11.4-16.0) gm/dL Hct 31.8 L (34.0-46.0) % MCHC 30.6 L (31.0-37.0) g/dL RDW 16.3 H (11.5-15.5) % Carbon Dioxide (22-30) mmol/L BUN (7-17) mg/dL Creatinine (0.52-1.04) mg/dL Glucose (74-99) mg/dL POC Glucose (mg/dL) 279 H 461 H (75-99) mg/dL Total Protein (6.3-8.2) g/dL Albumin (3.5-5.0) g/dL 03/12/20 03/12/20 Range/Units 11:18 12:04 RBC (3.80-5.40) m/uL Hgb (11.4-16.0) gm/dL Hct (34.0-46.0) % MCHC (31.0-37.0) g/dL RDW (11.5-15.5) % Carbon Dioxide 35 H (22-30) mmol/L BUN 24 H (7-17) mg/dL Creatinine 1.30 H (0.52-1.04) mg/dL Glucose 198 H (74-99) mg/dL POC Glucose (mg/dL) 153 H (75-99) mg/dL Total Protein 6.2 L (6.3-8.2) g/dL Albumin 2.9 L (3.5-5.0) g/dL Assessment and Plan Assessment: * Toxic metabolic encephalopathy due to DKA and right-sided pneumonia. encephalopathy now resolved. * Breakthrough seizure in a patient with history of seizure disorder. * History of CVA right MCA territory CVA spastic left hemiparesis. * Asymptomatic left ICA stenosis, with chronic right ICA occlusion. * Diabetes * Hypertension * Hyperlipidemia * Coronary artery disease. Plan: * Patient had a breakthrough seizure today. Continue Depakote 250 mg 3 times a day. Her free Depakote level is 14.9 (4.8-17.3) on 03/06/2020. Increase Vimpat to 100 mg twice a day. * Patient also on dual antiplatelet medication for atherosclerotic cerebrovascular disease, and high-dose statins. * Your medical management.
--- NOTE | 2020-03-12 17:59 | P.PN ---
Subjective Progress Note Date: 03/12/20 eMlva Jackson, is a 59-year-old female who presented to [facility] emergency room due to nausea vomiting and diarrhea, and elevated glucose level, she was evaluated in the emergency room, her temperature on presentation was 90.1, pulse 75 respiration 18 blood pressure 79/51 pulse ox 94% on room air, her white blood count was elevated at 11.6 hemoglobin 9.6 platelet count 156, venous blood gas pH was 7.05 glucose level was 744 and serum acetone was positive, patient was admitted to ICU she was started on IV fluid and on IV insulin drip. Patient has a known history of insulin-dependent diabetes mellitus type 1 maintained on insulin he had previous episodes of DKA, she also had a history of stroke, history of hypertension, hyperlipidemia, coronary artery disease with myocardial infarction, peripheral vascular disease with multiple toe amputation, history of COPD. On review of systems patient is alert responsive in no apparent distress she was seen in ICU she is still complaining of nausea and occasional episodes of vomiting there is no fever or chills no headache or dizziness no chest pain no shortness of breath no cough she is having some abdominal discomfort no no burni ng with urination no frequency or urgency no hematuria. On 03/03/2020 patient remains in the intensive care unit. Patient does not appear in any kind of distress. She currently getting treated for pneumonia critical care services are following. Patient remains on Levaquin. Patient has been transitioned to subcu insulin patient did have episodes of low sugar this a.m. treated per protocol. On 03/04/2020 patient was seen and examined in the ICU, she was very drowsy this morning she failed swallow evaluation and is kept nothing by mouth at this time, now patient is more alert and responsive, glucose level is better controlled, she is complaining of low back pain otherwise she denies any complaints. On 03/05/2020 patient was seen and examined in the ICU she is more alert and responsive at this time she is complaining of feeling hungry however she failed swallow evaluation again this morning otherwise she denies any complaints there is no fever or chills no headache or dizziness no chest pain no shortness of breath no cough no nausea or vomiting no abdominal pain no diarrhea and no urinary symptoms. At this time plan is to repeat swallow evaluation in the morning again before discussing alternative feeding options. On 03/06/2020 patient is alert and oriented 2. Patient is much more alert than previous days. Patient does seem fidgety in bed but this is similar to her base line. Blood sugars continue to fluctuate. Patient having low blood sugar this a.m. requiring amp of D50. Patient also failed swallow. Currently on nectar thick and plans to eventually reassess swallowing the next few days per speech. Patient has been ordered out of the intensive care unit to [facility]. Patient denies chest pain or shortness of breath. Patient denies nausea vomiting or diarrhea. Patient denies any urinary burning or frequency On 03/07/2020 patient was seen and examined in the ICU she is alert and oriented in no apparent distress she is tolerating pured diet well, there is no fever or chills no headache or dizziness no chest pain no shortness of breath no cough no nausea or vomiting no abdominal pain no diarrhea no blood in the stool Daigle catheter is in place. On 03/08/2020 patient was seen and examined in the ICU she is alert and oriented 3 and answering questions appropriately , glucose levels has been better controlled in the last 24 hours she is tolerating pured diet well, there is no fever or chills no headache or dizziness, no chest pain no shortness of breath no cough no nausea or vomiting no abdominal pain no diarrhea and no urinary symptoms. On 03/09/2020 patient was seen and examined on the medical floor she is alert and oriented 3 in no apparent distress there is no fever or chills no headache or dizziness no chest pain no shortness of breath no cough no nausea or vomiting no abdominal pain no diarrhea no blood in the stools no burning with urination no frequency or urgency and no hematuria. on 03/10/2020 patient was seen and examined on the medical floor, she is alert and oriented 3 in no apparent distress, she is receiving pured diet and is tolerating well, there is no fever or chills no headache or dizziness no chest pain no shortness of breath no cough no nausea or vomiting no abdominal pain no diarrhea no blood in the stools no burning with urination no frequency or urgency no hematuria, yesterday she had hyperglycemia followed by hypoglycemia, patient has an ulcer on the left hip area with scabbing, there is also redness on both buttocks. On 03/11/2020 patient was seen and examined on the medical floor, she is alert and oriented 3 in no distress there is no fever or chills no headache or dizziness. Chest pain no shortness of breath no cough no nausea or vomiting no abdominal pain no diarrhea no blood in the stools no burning with urination no frequency or urgency no hematuria, patient is tolerating pured diet well no evidence of aspiration at this time. on 03/12/2020 patient was seen and examined on the medical floor she is alert and oriented 3, earlier his morning she had an episode of unresponsiveness with staring that lasted about 60 seconds, possible petit mal seizure, Depakote level was checked, and neurology were asked to see her again to assess her seizure medications, at this time patient is alert and oriented 3 in no apparent distress, there is no fever or chills no headache or dizziness no chest pain no shortness of breath no cough no nausea or vomiting no abdominal pain no diarrhea no blood in the stools no burning with urination no frequency or urgency and no hematuria Objective - Vital Signs Vital signs: Vital Signs Temp 98.7 F 03/12/20 07:14 Pulse 88 03/12/20 08:54 Resp 17 03/12/20 07:14 BP 153/70 03/12/20 07:14 Pulse Ox 95 03/12/20 07:14 Intake & Output 03/11/20 03/12/20 03/12/20 18:59 06:59 18:59 Weight 50.4 kg Other: Voiding Method Incontinent Incontinent Incontinent # Voids 3 3 # Bowel Movements 1 2 ABP, PAP, CO, CI - Last Documented Arterial Blood Pressure 92/57 - Exam In general patient is alert responsive in no apparent distress HEENT head normocephalic and atraumatic Neck is supple no JVD no goiter no lymphadenopathy Chest exam reveals a few scattered rhonchi no wheezing Cardiac exam reveals regular heart sounds S1 and S2 with mild tachycardia no gallops no murmurs Abdomen is soft nontender no rigidity or rebound no palpable masses with hyperactive bowel sounds Extremity exam reveals no edema no cyanosis or clubbing Neurological examination reveals no gross new focal deficit - Labs CBC & Chem 7: 03/12/20 11:18 03/12/20 11:18 Labs: Abnormal Lab Results - Last 24 Hours (Table) 03/11/20 03/11/20 03/12/20 Range/Units 11:25 16:41 01:17 POC Glucose (mg/dL) 289 H 180 H 279 H (75-99) mg/dL 03/12/20 Range/Units 06:50 POC Glucose (mg/dL) 461 H (75-99) mg/dL Assessment and Plan Plan: 1. Acute diabetic ketoacidosis with severe hyperglycemia and positive serum acetone patient improved with IV fluid and IV insulin drip currently she is back on Levemir with a decreased dose to 10 units daily and sliding scale 2. Underlying history of diabetes mellitus type 1 maintained on insulin. 3. Underlying history of hypertension 4. Underlying history of hyperlipidemia 5. Underlying history of seizure disorder, patient is currently on Depakote 250 mg 3 times a day, and Vimpat 50 mg at bedtime 6. Underlying history of COPD stable no evidence of exacerbation 7. Underlying history of coronary artery disease stable at this time patient denies any chest pain 8. Underlying history of peripheral vascular disease with previous history of multiple toe amputations 9. Previous history of stroke. 10. Pneumonia , most likely related to aspiration , maintained on oral antibiotics at this time, Levaquin and clindamycin, pulmonary and infectious disease following 11. Positive blood cultures most likely contaminant. Patient is improving currently she is out of ICU on the medical floor she is tolerating pured diet well Continue with current management possible discharge to home on Wednesday if stable
[2020-03-12 21:21] LABS: Glucose,Whole Blood 168 mg/dL (75-99)
[2020-03-12] MEDS: QUEtiapine 50 MG TAB PO SCH (21:23)
[2020-03-12] MEDS: ATORVASTATIN 80 MG TAB PO SCH (21:23)
--- NOTE | 2020-03-13 00:45 | PN ---
PROGRESS NOTE DATE OF SERVICE: 03/12/2020 REASON FOR FOLLOWUP: Pneumonia and pressure ulcer. INTERVAL HISTORY: The patient remains to be afebrile. She is breathing comfortably. No chest pain, shortness of breath or cough. No abdominal pain, no diarrhea. PHYSICAL EXAMINATION: Blood pressure 102/68 with a pulse of 91, temperature 97.9. She is 97% on room air. General description is a middle-aged female lying in bed in no distress. RESPIRATORY SYSTEM: Unlabored breathing, decreased breath sounds in the bases, no wheeze. HEART: S1, S2. Regular rate and rhythm. ABDOMEN: Soft, no tenderness. LABS: Hemoglobin 9.7, white count 4.5, BUN of 24, creatinine is 1.30. DIAGNOSTIC IMPRESSION AND PLAN: 1. Patient with positive blood culture likely skin contamination. 2. Possible pneumonia. Currently covered with Levaquin for short course. 3. Pressure ulcer. Local wound care with Medihoney moist dressing keep the area off the pressure. MMODL / IJN: [id number] /
[2020-03-13 04:17] LABS: Glucose,Whole Blood 221 mg/dL (75-99)
[2020-03-13 06:50] LABS: Glucose,Whole Blood 368 mg/dL (75-99)
[2020-03-13 07:23] VITALS: BP 91/48; RESP 16; TEMP 98.3
[2020-03-13] MEDS: INSULIN DETEMIR (LEVEMIR) 100 UNIT/ML SYR SQ SCH (07:45)
[2020-03-13] MEDS: INSULIN ASPART (NovoLOG) 100 UNIT/ML VIAL SQ SCH ×3 (07:47→12:52)
[2020-03-13] MEDS: PANTOPRAZOLE 40 MG TABLET PO SCH (07:49)
[2020-03-13] MEDS: METOCLOPRAMIDE 10 MG TAB PO SCH ×2 (07:50→12:24)
[2020-03-13] MEDS: IPRATROPIUM-ALBUTEROL 3 ML NEB INHALATION SCH ×3 (09:00→15:36)
[2020-03-13] MEDS: ENOXAPARIN 40 MG/0.4 ML SYRINGE SQ SCH (09:53)
[2020-03-13] MEDS: ASPIRIN 81 MG PO SCH (09:56)
[2020-03-13] MEDS: LACOSAMIDE 50 MG TABLET PO SCH (09:56)
[2020-03-13] MEDS: FERROUS SULFATE 325 MG TAB PO SCH (09:57)
[2020-03-13] MEDS: CLOPIDOGREL 75 MG TAB PO SCH (09:57)
[2020-03-13] MEDS: LOSARTAN 50 MG TAB PO SCH (09:57)
[2020-03-13] MEDS: DULoxetine HCL 60 MG CAPSULE.DR PO SCH (09:58)
[2020-03-13] MEDS: DIVALPROEX 250 MG TABLET.DR PO SCH (09:59)
--- NOTE | 2020-03-13 10:09 | CDI ---
Documentation Clarification Form Date: 03/13/2020 09:40:10 AM From: Janice Freeman Admit Date: 03/01/2020 08:15:00 PM Patient Name: Melva Jackson Visit Number: [id number] Discharge Date: ATTENTION: The Clinical Documentation Specialists (CDI) and [facility] Coding Staff appreciate your assistance in clarifying documentation. Please respond to the clarification below the line at the bottom and electronically sign. The CDI & [facility] Coding staff will review the response and follow-up if needed. Please note: Queries are made part of the Legal Health Record. If you have any questions, please contact the author of this message via ITS. Dr. Almaraz Eduard 03/10 your progress note Hip area unstageable pressure ulcer. pressure ulcer to right hip 03/08 Nursing documentation in Physical assessment left buttock stage 2 pressure ulcer Right buttock stage 2 pressure ulcer. . History/Risk Factors: 59-year-old female presented to the ED with nausea vomiting and diarrhea and elevated glucose level. Medical history: Type 1 DM insulin dependent, COPD, PVD, Asthma and HTN. Clinical Indicators: Location: Left Buttock Wound description: Stage II warm, dry, intact smooth, Erythema Location: Right Buttock Wound description: Stage II warm, dry, intact smooth, Erythema Treatment: Right hip pressure ulcer Medihoney followed by moist dressing to be changed daily. Left hip dressing. Oral nutrition supplement. Keeping pressure off ulcers Elements for accurate and compliant documentation of an ulcer: *The location/laterality of the ulcer *Etiology (decubitus/pressure, diabetic, PVD) *Stage I-IV, Unstageable, Suspected Deep Tissue Injury (To the deepest stage) *If the ulcer was present at admission (POA) or occurred after admission In your professional opinion, can you please clarify the diagnosis, location, laterality and whether present on admission (POA): * Stage 2 Pressure/Decubitus Ulcer Left and Right Buttock POA (Partial thickness, loss of dermis, pink wound bed) * Unstageable Pressure ulcer right hip and Stage 2 pressure ulcer left hip POA * Unstageable Pressure ulcer right hip * Other condition, please specify * Unable to determine Please indicate etiology of pressure ulcer (if known). right hip unstagable pressure ulcer and left gluteal stage 2 pressure ulcer (Last Revision: February 2017) MTDD
[2020-03-13 11:59] LABS: Glucose,Whole Blood 153 mg/dL (75-99)
--- NOTE | 2020-03-13 12:29 | P.DS ---
Providers Date of admission: 03/01/20 20:15 Expected date of discharge: 03/13/20 Attending physician: Sherlyn Chen Consults: 03/01/20 20:16 Consult Physician Routine Consulting Provider: Darius Kearns Consult Reason/Comments: DKA Do you want consulting provider notified?: Already Contacted 03/04/20 08:27 Consult Physician Urgent Consulting Provider: Bairon Kearns Consult Reason/Comments: AMS Do you want consulting provider notified?: Yes 03/06/20 13:44 Consult Physician Routine Consulting Provider: Rufina Chapa Consult Reason/Comments: Positive blood culture Do you want consulting provider notified?: Yes 03/12/20 10:59 Consult Physician Routine Consulting Provider: Jose Carlos Ortiz Consult Reason/Comments: possible new seizure Do you want consulting provider notified?: Yes Primary care physician: Sherlyn Chen [facility] Course: Discharge diagnosis 1. Acute diabetic ketoacidosis with severe hyperglycemia and positive serum acetone patient improved with IV fluid and IV insulin drip currently she is back on Levemir with a decreased dose to 10 units daily and sliding scale 2. Underlying history of diabetes mellitus type 1 maintained on insulin. Lantus decreased to 10 units daily due to hypoglycemia 3. Underlying history of hypertension 4. Underlying history of hyperlipidemia 5. Underlying history of seizure disorder, patient is currently on Depakote 250 mg 3 times a day, and Vimpat 50 mg at bedtime. Patient had seizure type spell on 03/12/2020 patient was reevaluated by neurology services per neurology continued Depakote 1250 mg 3 times a day and Vimpat increased to 100 mg twice a day 6. Underlying history of COPD stable no evidence of exacerbation 7. Underlying history of coronary artery disease stable at this time patient denies any chest pain 8. Underlying history of peripheral vascular disease with previous history of multiple toe amputations 9. Previous history of stroke. 10. Pneumonia , most likely related to aspiration , maintained on oral antibiotics at this time, Levaquin and clindamycin, pulmonary and infectious disease following 11. Positive blood cultures most likely contaminant. 12. Acute on chronic anemia. Patient was evaluated by GI services to your iron supplement per GI patient to follow-up outpatient to discuss about endoscopic evaluation Hospital course Melva Jackson, is a 59-year-old female who presented to [facility] emergency room due to nausea vomiting and diarrhea, and elevated glucose level, she was evaluated in the emergency room, her temperature on presentation was 90.1, pulse 75 respiration 18 blood pressure 79/51 pulse ox 94% on room air, her white blood count was elevated at 11.6 hemoglobin 9.6 platelet count 156, venous blood gas pH was 7.05 glucose level was 744 and serum acetone was positive, patient was admitted to ICU she was started on IV fluid and on IV insulin drip. Patient has a known history of insulin-dependent diabetes mellitus type 1 maintained on insulin he had previous episodes of DKA, she also had a history of stroke, history of hypertension, hyperlipidemia, coronary artery disease with myocardial infarction, peripheral vascular disease with multiple toe amputation, history of COPD. On review of systems patient is alert responsive in no apparent distress she was seen in ICU she is still complaining of nausea and occasional episodes of vomiting there is no fever or chills no headache or dizziness no chest pain no shortness of breath no cough she is having some abdominal discomfort no no burning with urination no frequency or urgency no hematuria. On 03/03/2020 patient remains in the intensive care unit. Patient does not appear in any kind of distress. She currently getting treated for pneumonia critical care services are following. Patient remains on Levaquin. Patient has been transitioned to subcu insulin patient did have episodes of low sugar this a.m. treated per protocol. On 03/04/2020 patient was seen and examined in the ICU, she was very drowsy this morning she failed swallow evaluation and is kept nothing by mouth at this time, now patient is more alert and responsive, glucose level is better controlled, she is complaining of low back pain otherwise she denies any complaints. On 03/05/2020 patient was seen and examined in the ICU she is more alert and responsive at this time she is complaining of feeling hungry however she failed swallow evaluation again this morning otherwise she denies any complaints there is no fever or chills no headache or dizziness no chest pain no shortness of breath no cough no nausea or vomiting no abdominal pain no diarrhea and no urinary symptoms. At this time plan is to repeat swallow evaluation in the [facility] again before discussing alternative feeding options. On 03/06/2020 patient is alert and oriented 2. Patient is much more alert than previous days. Patient does seem fidgety in bed but this is similar to her baseline. Blood sugars continue to fluctuate. Patient having low blood sugar this a.m. requiring amp of D50. Patient also failed swallow. Currently on nectar thick and plans to eventually reassess swallowing the next few days per speech. Patient has been ordered out of the intensive care unit to [facility]. Patient denies chest pain or shortness of breath. Patient denies nausea vomiting or diarrhea. Patient denies any urinary burning or frequency On 03/07/2020 patient was seen and examined in the ICU she is alert and oriented in no apparent distress she is tolerating pured diet well, there is no fever or chills no headache or dizziness no chest pain no shortness of breath no cough no nausea or vomiting no abdominal pain no diarrhea no blood in the stool Daigle ca theter is in place. On 03/08/2020 patient was seen and examined in the ICU she is alert and oriented 3 and answering questions appropriately , glucose levels has been better controlled in the last 24 hours she is tolerating pured diet well, there is no fever or chills no headache or dizziness, no chest pain no shortness of breath no cough no nausea or vomiting no abdominal pain no diarrhea and no urinary symptoms. On 03/09/2020 patient was seen and examined on the medical floor she is alert and oriented 3 in no apparent distress there is no fever or chills no headache or dizziness no chest pain no shortness of breath no cough no nausea or vomiting no abdominal pain no diarrhea no blood in the stools no burning with urination no frequency or urgency and no hematuria. on 03/10/2020 patient was seen and examined on the medical floor, she is alert and oriented 3 in no apparent distress, she is receiving pured diet and is tolerating well, there is no fever or chills no headache or dizziness no chest pain no shortness of breath no cough no nausea or vomiting no abdominal pain no diarrhea no blood in the stools no burning with urination no frequency or urgency no hematuria, yesterday she had hyperglycemia followed by hypoglycemia, patient has an ulcer on the left hip area with scabbing, there is also redness on both buttocks. On 03/11/2020 patient was seen and examined on the medical floor, she is alert and oriented 3 in no distress there is no fever or chills no headache or dizziness. Chest pain no shortness of breath no cough no nausea or vomiting no abdominal pain no diarrhea no blood in the stools no burning with urination no frequency or urgency no hematuria, patient is tolerating pured diet well no evidence of aspiration at this time. on 03/12/2020 patient was seen and examined on the medical floor she is alert and oriented 3, earlier his morning she had an episode of unresponsiveness with staring that lasted about 60 seconds, possible petit mal seizure, Depakote level was checked, and neurology were asked to see her again to assess her seizure medications, at this time patient is alert and oriented 3 in no apparent distress, there is no fever or chills no headache or dizziness no chest pain no shortness of breath no cough no nausea or vomiting no abdominal pain no diarrhea no blood in the stools no burning with urination no frequency or urgency and no hematuria On 03/13/2020 patient's alert and oriented 3 patient did have breakthrough seizure yesterday was reevaluated by neurology services and the pad increased 100 twice a day. Patient has been cleared for discharge from infectious disease. Patient denies any chest pain or shortness of breath. Patient denies nausea vomiting or diarrhea. Patient denies any urinary burning or frequency. I performed an examination of the patient and discussed their management with the Nurse Practitioner. I have reviewed the Nurse Practitioner's notes and agree with the documented findings and plan of care Patient Condition at Discharge: Stable Plan - Discharge Summary Discharge Rx Participant: No New Discharge Prescriptions: New QUEtiapine [SEROquel] 50 mg PO HS 30 Days #30 tab Lacosamide [Vimpat] 100 mg PO BID 30 Days #60 tablet Continue Famotidine [Pepcid] 20 mg PO DAILY HYDROcodone/APAP 10-325MG [[place] 10-325] 1 tab PO TID PRN PRN Reason: Pain DULoxetine HCL [Cymbalta] 60 mg PO DAILY Atorvastatin [Lipitor] 20 mg PO DAILY Aspirin [Adult Low Dose Aspirin EC] 81 mg PO DAILY Ferrous Sulfate [Iron (65 MG Elemental)] 325 mg PO DAILY Divalproex [Depakote] 250 mg PO TID #90 tablet. ALPRAZolam [Xanax] 1 mg PO Q8H PRN PRN Reason: Anxiety Albuterol Sulfate [Ventolin HFA] 2 puff INHALATION RT-Q4H PRN PRN Reason: Shortness Of Breath Ondansetron Odt [Zofran ODT] 4 mg PO DAILY PRN PRN Reason: Nausea Losartan [Cozaar] 50 mg PO DAILY tab Metoclopramide [Reglan] 10 mg PO AC-TID tab Ascorbic Acid [Vitamin C] 500 mg PO DAILY Vitamin B Complex 1 tab PO DAILY INSULIN ASPART (NovoLOG) [NovoLOG (formulary)] 0 unit SQ AC-TID vial Calcium Carb-Vit D 500Mg-200Un [Oscal 500+D] 1 each PO BID-W/MEALS tab Clopidogrel [Plavix] 75 mg PO DAILY tab Changed Insulin Glargine,Hum.rec.anlog [Basaglar Kwikpen U-100] 10 unit SQ HS #0 Discontinued QUEtiapine [SEROquel] 100 mg PO HS Lacosamide [Vimpat] 100 mg PO QAM Lacosamide [Vimpat] 50 mg PO HS No Action Valproic Acid [Depakene] 250 mg PO DAILY QUEtiapine [SEROquel] 25 mg PO BID Discharge Medication List Famotidine [Pepcid] 20 mg PO DAILY 07/19/15 [History] HYDROcodone/APAP 10-325MG [[place] 10-325] 1 tab PO TID PRN 10/03/16 [History] DULoxetine HCL [Cymbalta] 60 mg PO DAILY 02/16/17 [History] Atorvastatin [Lipitor] 20 mg PO DAILY 12/28/18 [History] Aspirin [Adult Low Dose Aspirin EC] 81 mg PO DAILY 06/09/19 [History] Ferrous Sulfate [Iron (65 MG Elemental)] 325 mg PO DAILY 06/09/19 [History] Divalproex [Depakote] 250 mg PO TID #90 tablet. 08/17/19 [Rx] ALPRAZolam [Xanax] 1 mg PO Q8H PRN 12/26/19 [History] Albuterol Sulfate [Ventolin HFA] 2 puff INHALATION RT-Q4H PRN 12/26/19 [History] Ondansetron Odt [Zofran ODT] 4 mg PO DAILY PRN 12/26/19 [History] Valproic Acid [Depakene] 250 mg PO DAILY 12/26/19 [History] QUEtiapine [SEROquel] 25 mg PO BID 01/10/20 [History] Losartan [Cozaar] 50 mg PO DAILY tab 01/18/20 [Rx] Metoclopramide [Reglan] 10 mg PO AC-TID tab 01/18/20 [Rx] Ascorbic Acid [Vitamin C] 500 mg PO DAILY 01/29/20 [History] Vitamin B Complex 1 tab PO DAILY 01/29/20 [History] Calcium Carb-Vit D 500Mg-200Un [Oscal 500+D] 1 each PO BID-W/MEALS tab 02/02/20 [Rx] Clopidogrel [Plavix] 75 mg PO DAILY tab 02/02/20 [Rx] INSULIN ASPART (NovoLOG) [NovoLOG (formulary)] 0 unit SQ AC-TID vial 02/02/20 [Rx] Insulin Glargine,Hum.rec.anlog [Basaglar Kwikpen U-100] 10 unit SQ HS #0 03/13/20 [Rx] Lacosamide [Vimpat] 100 mg PO BID 30 Days #60 tablet 03/13/20 [Rx] QUEtiapine [SEROquel] 50 mg PO HS 30 Days #30 tab 03/13/20 [Rx] Follow up Appointment(s)/Referral(s): [facility], [NON-STAFF] - As Needed Sherlyn Chen MD [Primary Care Provider] - 1-2 days
--- NOTE | 2020-03-13 14:41 | PN ---
PROGRESS NOTE DATE OF SERVICE: 03/13/2020 REASON FOR FOLLOWUP: Pneumonia and pressure ulcer. INTERVAL HISTORY: The patient is currently afebrile, patient is breathing comfortably on room air. Denies having any chest pain or cough. No abdominal pain, no diarrhea. PHYSICAL EXAMINATION: Blood pressure 91/48 with a pulse of 76, temperature 98.3, she is 92% on room air. General description is a middle-aged female, lying in bed in no distress. RESPIRATORY SYSTEM: Unlabored breathing, clear to auscultation anteriorly. HEART: S1, S2. Regular rate and rhythm. ABDOMEN: Soft. No tenderness. LABS: No new labs have been obtained today. DIAGNOSTIC IMPRESSION AND PLAN: 1. Patient with a possible component of pneumonia and history almost 10 days of antibiotic should be more than enough. No need for antibiotic on discharge. 2. Pressure ulcer to the heel area. Local wound care with Medihoney followed by moist dressing, keep the area off the pressure. Discussed with the admitting team working on this patient. MMODL / IJN: [id number] /
[2020-03-13 15:38] VITALS: PULSE 82
--- NOTE | 2020-03-13 16:26 | P.PN ---
Subjective Progress Note Date: 03/13/20 03/13/2020: Patient fully alert and awake, in no distress. No further seizures reported. No side effects of medication. 03/12/2020: Patient was seen for a follow-up. Patient seen by Dr. Bairon Kearns in neurology consultation on 03/04/2020. Please refer to his notes for detail. This is the covering note. 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 Patient came to the hospital for altered mental status. Patient diagnosed with toxic metabolic encephalopathy related to DKA and right-sided pneumonia. Patient has not had any seizures on this admission. She is currently on Depakote 250 mg 3 times a day and Vimpat 100 mg a.m. and 50 mg at bedtime. Patient's free Depakote level is 14.9 (4.8-17.3). Patient offers no complaints. patient is feeling better. Apparently patient had a seizure type spells today. Patient was working with the physical therapy when she suddenly had a blank stare, and was unresponsive for about 60 seconds. Objective - Vital Signs Vital signs: Vital Signs Temp 98.3 F 03/13/20 07:21 Pulse 82 03/13/20 15:46 Resp 16 03/13/20 07:21 BP 91/48 03/13/20 07:21 Pulse Ox 92 L 03/13/20 01:03 Intake & Output 03/12/20 03/13/20 03/13/20 18:59 06:59 18:59 Intake Total 460 300 Balance 460 300 Intake: Oral 460 300 Other: Voiding Method Diaper Diaper Diaper Incontinent Incontinent Incontinent # Voids 1 2 1 # Bowel Movements 1 ABP, PAP, CO, CI - Last Documented Arterial Blood Pressure 92/57 - Exam Patient is alert and awake. Patient appears to be very restless, some dyskinesias. Patient has spastic left hemiplegia. Patient has left visual field cut. Pupils are round and reacting. - Labs CBC & Chem 7: 03/12/20 11:18 03/12/20 11:18 Labs: Abnormal Lab Results - Last 24 Hours (Table) 03/12/20 03/13/20 03/13/20 Range/Units 21:19 04:15 06:48 POC Glucose (mg/dL) 168 H 221 H 368 H (75-99) mg/dL 03/13/20 Range/Units 11:57 POC Glucose (mg/dL) 153 H (75-99) mg/dL Assessment and Plan Assessment: * Toxic metabolic encephalopathy due to DKA and right-sided pneumonia. encephalopathy now resolved. * Breakthrough seizure in a patient with history of seizure disorder. * History of CVA right MCA territory CVA spastic left hemiparesis. * Asymptomatic left ICA stenosis, with chronic right ICA occlusion. * Diabetes * Hypertension * Hyperlipidemia * Coronary artery disease. Plan: * Continue Depakote 250 mg 3 times a day. Her free Depakote level is 14.9 (4.8-17.3) on 03/06/2020. Increase Vimpat to 100 mg twice a day. * Patient also on dual antiplatelet medication for atherosclerotic cerebrovascular disease, and high-dose statins. * Neurologically clear for discharge.
[2020-03-13 16:51] LABS: Glucose,Whole Blood 268 mg/dL (75-99)
--- NOTE | 2020-03-14 10:22 | CDI ---
Documentation Clarification Form Date: 03/14/20 From: Irene Wen CCS Phone: If you have a question about this query, please contact Elina Vazquez, Executive Chef Assistant at [phone] between 8am and 5pm. Admit Date: 03/01/20 Discharge Date:03/13/20 Patient Name: Melva Jackson Visit Number: [id number] ATTENTION: The Clinical Documentation Specialists (CDI) and [facility] Coding Staff appreciate your assistance in clarifying documentation. Please respond to the clarification below the line at the bottom and electronically sign. The CDI & [facility] Coding staff will review the response and follow-up if needed. Please note: Queries are made part of the Legal Health Record. If you have any questions, please contact the author of this message via ITS. Dear Dr. Cehn, CKD is documented in the Consult 03/02, . History/Risk Factors: HTN, DM CAD, COPD, Anemia Clinical Indicators: Current BUN: 53, 56, 39 CR: 1.98, 1.51, 1.07 GFR: 27, 36, 57 Treatment: Monitor, IV fluids In order to capture the severity of condition, please clarify the stage of the CKD, if known: CKD Stage 1 (GFR > 90) CKD Stage 2 (GFR 60-89) CKD Stage 3 (GFR 30-59) CKD Stage 4 (GFR 15-29) CKD Stage 5 (GFR <15) ESRD Other, please specify Unable to determine CKD stage 3 MTDD
== END 2020-03-13 17:13 | disposition home health service (06) | DRG 871 ==
LOC: EC 19:17 → 2SICU 20:15 → 4SSUR 03-09 01:01
PROVIDERS: ADMIT Internal Medicine; ATTEND Internal Medicine
PROC: 02H633Z Insertion of Infusion Device into Right Atrium, Percutaneous Approach (ICD-10-PCS; 2020-03-03)
PROC: 30243N1 Transfusion of Nonautologous Red Blood Cells into Central Vein, Percutaneous Approach (ICD-10-PCS; principal; 2020-03-04)
DX: A41.89 Other specified sepsis (principal); E10.10 Type 1 diabetes mellitus with ketoacidosis without coma; J69.0 Pneumonitis due to inhalation of food and vomit; G92 Toxic encephalopathy; N17.9 Acute kidney failure, unspecified; I13.0 Hypertensive heart and chronic kidney disease with heart failure and stage 1 through stage 4 chronic kidney disease, or unspecified chronic kidney disease; I69.354 Hemiplegia and hemiparesis following cerebral infarction affecting left non-dominant side; L89.210 Pressure ulcer of right hip, unstageable; E10.649 Type 1 diabetes mellitus with hypoglycemia without coma; D63.1 Anemia in chronic kidney disease; E10.42 Type 1 diabetes mellitus with diabetic polyneuropathy; E10.22 Type 1 diabetes mellitus with diabetic chronic kidney disease; E10.51 Type 1 diabetes mellitus with diabetic peripheral angiopathy without gangrene; I50.9 Heart failure, unspecified; Z79.4 Long term (current) use of insulin; J44.9 Chronic obstructive pulmonary disease, unspecified; G40.909 Epilepsy, unspecified, not intractable, without status epilepticus; F31.9 Bipolar disorder, unspecified; Z89.411 Acquired absence of right great toe; Z89.421 Acquired absence of other right toe(s); L89.322 Pressure ulcer of left buttock, stage 2; G93.89 Other specified disorders of brain; I95.9 Hypotension, unspecified; E10.319 Type 1 diabetes mellitus with unspecified diabetic retinopathy without macular edema; I25.10 Atherosclerotic heart disease of native coronary artery without angina pectoris; K21.9 Gastro-esophageal reflux disease without esophagitis; E78.5 Hyperlipidemia, unspecified; M19.90 Unspecified osteoarthritis, unspecified site; E03.9 Hypothyroidism, unspecified; H93.13 Tinnitus, bilateral; F41.9 Anxiety disorder, unspecified; E86.0 Dehydration; M54.5 Low back pain; K59.09 Other constipation; G89.29 Other chronic pain; R13.10 Dysphagia, unspecified; R32 Unspecified urinary incontinence; D72.819 Decreased white blood cell count, unspecified; I83.93 Asymptomatic varicose veins of bilateral lower extremities; I65.23 Occlusion and stenosis of bilateral carotid arteries; I25.2 Old myocardial infarction; Z79.899 Other long term (current) drug therapy; Z79.82 Long term (current) use of aspirin; Z79.02 Long term (current) use of antithrombotics/antiplatelets; Z88.5 Allergy status to narcotic agent; Z86.718 Personal history of other venous thrombosis and embolism; Z87.01 Personal history of pneumonia (recurrent); Z86.14 Personal history of Methicillin resistant Staphylococcus aureus infection; Z90.49 Acquired absence of other specified parts of digestive tract; Z95.5 Presence of coronary angioplasty implant and graft; Z98.890 Other specified postprocedural states; Z98.42 Cataract extraction status, left eye; Z98.41 Cataract extraction status, right eye; N18.30 Chronic kidney disease, stage 3 unspecified; Z96.1 Presence of intraocular lens; Z83.3 Family history of diabetes mellitus; Z90.710 Acquired absence of both cervix and uterus; Z87.891 Personal history of nicotine dependence; Z88.8 Allergy status to other drugs, medicaments and biological substances; Z88.0 Allergy status to penicillin; Z88.1 Allergy status to other antibiotic agents; Z91.030 Bee allergy status; Z82.49 Family history of ischemic heart disease and other diseases of the circulatory system; Z82.5 Family history of asthma and other chronic lower respiratory diseases
CPT/HCPCS: 36415; 70450; 71045; 72100; 74230; 80048; 80051; 80053; 80164; 80165; 80320; 81001; 81003; 82009; 82140; 82550; 82565; 82607; 82746; 82803; 82947; 83540; 83550; 83605; 83735; 84100; 84520; 85025; 85610; 85730; 86850; 86900; 86901; 86920; 87040; 87077; 87186; 93005; 94640; 94760; 95819; 96361; 96374; 99291

== ENCOUNTER 2020-03-14 20:25 | Inpatient (IN) | payer OTHER ==
--- NOTE | 2020-03-14 20:35 | ED ---
Altered Mental Status HPI - General Stated Complaint: hypoglycemia Time Seen by Provider: 03/14/20 20:25 Source: patient, EMS, RN notes reviewed, old records reviewed Mode of arrival: EMS - History of Present Illness Initial Comments: Is a 59-year-old female history diabetes stroke hypertension and hyper cholesterol who was brought in by EMS after being found be unresponsive at home. She apparently had an elevated blood sugar today was given 4 units Humalog and 15 minutes he became and responsive and diaphoretic. EMS was summoned Accu-Chek at that time was 69. She was given 1 amp of D50 and is slowly regaining her normal mentation. Upon arrival she denies any complaints other than the diaphoresis. MD Complaint: altered mental status, confusion, decreased responsiveness - Related Data Home Medications Medication Instructions Recorded Confirmed Famotidine [Pepcid] 20 mg PO DAILY 07/19/15 03/01/20 HYDROcodone/APAP 10-325MG [[place] 1 tab PO TID PRN 10/03/16 03/01/20 10-325] DULoxetine HCL [Cymbalta] 60 mg PO DAILY 02/16/17 03/01/20 Atorvastatin [Lipitor] 20 mg PO DAILY 12/28/18 03/01/20 Aspirin [Adult Low Dose Aspirin EC] 81 mg PO DAILY 06/09/19 03/01/20 Ferrous Sulfate [Iron (65 MG 325 mg PO DAILY 06/09/19 03/01/20 Elemental)] ALPRAZolam [Xanax] 1 mg PO Q8H PRN 12/26/19 03/01/20 Albuterol Sulfate [Ventolin HFA] 2 puff INHALATION RT-Q4H PRN 12/26/19 03/01/20 Ondansetron Odt [Zofran ODT] 4 mg PO DAILY PRN 12/26/19 03/01/20 Ascorbic Acid [Vitamin C] 500 mg PO DAILY 01/29/20 03/01/20 Vitamin B Complex 1 tab PO DAILY 01/29/20 03/01/20 Previous Rx's Medication Instructions Recorded Divalproex [Depakote] 250 mg PO TID #90 tablet. 08/17/19 Losartan [Cozaar] 50 mg PO DAILY tab 01/18/20 Metoclopramide [Reglan] 10 mg PO AC-TID tab 01/18/20 Calcium Carb-Vit D 500Mg-200Un 1 each PO BID-W/MEALS tab 02/02/20 [Oscal 500+D] Clopidogrel [Plavix] 75 mg PO DAILY tab 02/02/20 INSULIN ASPART (NovoLOG) [NovoLOG 0 unit SQ AC-TID vial 02/02/20 (formulary)] Insulin Glargine,Hum.rec.anlog 10 unit SQ HS #0 03/13/20 [Basaglar Kwikpen U-100] Lacosamide [Vimpat] 100 mg PO BID 30 Days #60 tablet 03/13/20 QUEtiapine [SEROquel] 50 mg PO HS 30 Days #30 tab 03/13/20 Allergies Allergy/AdvReac Type Severity Reaction Status Date / Time Barbiturates Allergy Rash/Hives Verified 03/14/20 22:22 cephalexin monohydrate Allergy Rash/Hives Verified 03/14/20 22:22 [From Keflex] morphine Allergy Rash/Hives Verified 03/14/20 22:22 Penicillins Allergy Rash/Hives Verified 03/14/20 22:22 phenobarbital Allergy Swelling Verified 03/14/20 22:22 venom-honey bee Allergy Swelling Verified 03/14/20 22:22 [bee venom (honey bee)] amlodipine besylate AdvReac Vomiting Verified 03/14/20 22:22 [From Norvasc] Review of Systems ROS Statement: Those systems with pertinent positive or pertinent negative responses have been documented in the HPI. ROS Other: All systems not noted in ROS Statement are negative. Past Medical History Past Medical History: Asthma, Coronary Artery Disease (CAD), Chest Pain / Angina, Heart Failure, COPD, CVA/TIA, Diabetes Mellitus, Deep Vein Thrombosis (DVT), Eye Disorder, GERD/Reflux, Hyperlipidemia, Hypertension, Myocardial Infarction ([place]), Neurologic Disorder, Osteoarthritis (OA), Pneumonia, Renal Disease Additional Past Medical History / Comment(s): IDDM (brittle), DKAs, neuropathy bilateral hands/feet, retinopathy bilateral eyes, cellulitis R foot, R great toe and 2nd toe infections/amputations, current wound R foot-being seen in [facility], renal failure, anemia, CVAs with L sided paralysis, headaches started after CVAs, brain lesions, DVT R axillae, low back pain, varicosities, seizure many years ago (2001), hypothyroid, constipation, bilateral tinnitis occasionally, sinus problems. Last Myocardial Infarction Date:: 2011 History of Any Multi-Drug Resistant Organisms: MRSA Date of last positivie culture/infection: 09/06/17 MDRO Source:: Right Foot Past Surgical History: Appendectomy, Section, Cholecystectomy, Heart Catheterization With Stent, Hysterectomy, Orthopedic Surgery Additional Past Surgical History / Comment(s): PCI with multiple stents, R great toe and 2nd toe amps, debridements R foot ulcer, L shoulder surgery to remove bone, bronchoscopy, EGD, colonoscopy, R arm port since removed, bilateral cataract removals/lens implants. Past Anesthesia/Blood Transfusion Reactions: No Reported Reaction Additional Past Anesthesia/Blood Transfusion Reaction / Comment(s): HX OF BLOOD TRANSFUSION- NO REACTION Date of Last Stent Placement:: July 2012 Past Psychological History: Anxiety, Bipolar, Depression Smoking Status: Never smoker Past Alcohol Use History: None Reported Past Drug Use History: Marijuana - Past Family History Father Family Medical History: Unable to Obtain, Coronary Artery Disease (CAD), Diabetes Mellitus Mother Family Medical History: COPD General Exam - General Exam Comments Initial Comments: This is a well-developed sec appearing female who is awake alert oriented 3 General appearance: alert Head exam: Present: atraumatic, normocephalic, normal inspection Eye exam: Present: normal appearance, PERRL, EOMI. Absent: scleral icterus, conjunctival injection, periorbital swelling ENT exam: Present: mucous membranes moist, other (Poor dentition) Neck exam: Present: normal inspection. Absent: tenderness, meningismus, lymphadenopathy Respiratory exam: Present: normal lung sounds bilaterally. Absent: respiratory distress, wheezes, rales, rhonchi, stridor Cardiovascular Exam: Present: regular rate, normal rhythm, normal heart sounds. Absent: systolic murmur, diastolic murmur, rubs, gallop, clicks GI/Abdominal exam: Present: soft, normal bowel sounds. Absent: distended, tenderness, guarding, rebound, rigid Extremities exam: Present: normal inspection, full ROM, normal capillary refill. Absent: tenderness, pedal edema, joint swelling, calf tenderness Back exam: Present: normal inspection Neurological exam: Present: alert, oriented X3, CN II-XII intact Psychiatric exam: Present: normal affect, normal mood Skin exam: Present: warm, intact, normal color, diaphoretic. Absent: dry, rash Course Vital Signs 03/14/20 03/14/20 20:40 22:24 Temperature 98.7 F Pulse Rate 80 78 Respiratory 18 18 Rate Blood Pressure 107/97 115/91 O2 Sat by Pulse 100 98 Oximetry - Reevaluation(s) Reevaluation #1: 03/14/20 22:26 The patient did remain awake and alert however on recheck her blood sugar again was low in the 50s. Due to the unknown exact amount of insulin the patient was given and the recurrent low blood sugar the patient will be admitted the case is discussed with Dr. Chen. Medical Decision Making - Lab Data Result diagrams: 03/14/20 21:00 03/14/20 21:00 Lab Results 03/14/20 03/14/20 03/14/20 Range/Units 20:33 21:00 21:00 WBC 3.5 L (3.8-10.6) k/uL RBC 2.87 L (3.80-5.40) m/uL Hgb 8.6 L (11.4-16.0) gm/dL Hct 27.8 L (34.0-46.0) % MCV 96.9 (80.0-100.0) fL MCH 29.8 (25.0-35.0) pg MCHC 30.8 L (31.0-37.0) g/dL RDW 16.9 H (11.5-15.5) % Plt Count 269 (150-450) k/uL Neutrophils % 42 % Lymphocytes % 47 % Monocytes % 6 % Eosinophils % 1 % Basophils % 1 % Neutrophils # 1.4 (1.3-7.7) k/uL Lymphocytes # 1.6 (1.0-4.8) k/uL Monocytes # 0.2 (0-1.0) k/uL Eosinophils # 0.1 (0-0.7) k/uL Basophils # 0.0 (0-0.2) k/uL Hypochromasia Slight Anisocytosis Slight Macrocytosis Slight Sodium 141 (137-145) mmol/L Potassium 4.1 (3.5-5.1) mmol/L Chloride 109 H (98-107) mmol/L Carbon Dioxide 29 (22-30) mmol/L Anion Gap 3 mmol/L BUN 25 H (7-17) mg/dL Creatinine 1.05 H (0.52-1.04) mg/dL Est GFR (CKD-EPI)AfAm 67 (>60 ml/min/1.73 sqM) Est GFR (CKD-EPI)NonAf 58 (>60 ml/min/1.73 sqM) Glucose 91 (74-99) mg/dL POC Glucose (mg/dL) 159 H (75-99) mg/dL POC Glu Folder Tier ID Benita Irizarry Calcium 7.7 L (8.4-10.2) mg/dL Magnesium 2.7 H (1.6-2.3) mg/dL Total Bilirubin 0.3 (0.2-1.3) mg/dL AST 37 H (14-36) U/L ALT 17 (4-34) U/L Alkaline Phosphatase 76 (38-126) U/L Ammonia (<30) umol/L Creatine Kinase 65 (30-135) U/L Total Protein 5.6 L (6.3-8.2) g/dL Albumin 2.6 L (3.5-5.0) g/dL Serum Alcohol <10 mg/dL 03/14/20 Range/Units 21:00 WBC (3.8-10.6) k/uL RBC (3.80-5.40) m/uL Hgb (11.4-16.0) gm/dL Hct (34.0-46.0) % MCV (80.0-100.0) fL MCH (25.0-35.0) pg MCHC (31.0-37.0) g/dL RDW (11.5-15.5) % Plt Count (150-450) k/uL Neutrophils % % Lymphocytes % % Monocytes % % Eosinophils % % Basophils % % Neutrophils # (1.3-7.7) k/uL Lymphocytes # (1.0-4.8) k/uL Monocytes # (0-1.0) k/uL Eosinophils # (0-0.7) k/uL Basophils # (0-0.2) k/uL Hypochromasia Anisocytosis Macrocytosis Sodium (137-145) mmol/L Potassium (3.5-5.1) mmol/L Chloride (98-107) mmol/L Carbon Dioxide (22-30) mmol/L Anion Gap mmol/L BUN (7-17) mg/dL Creatinine (0.52-1.04) mg/dL Est GFR (CKD-EPI)AfAm (>60 ml/min/1.73 sqM) Est GFR (CKD-EPI)NonAf (>60 ml/min/1.73 sqM) Glucose (74-99) mg/dL POC Glucose (mg/dL) (75-99) mg/dL POC Glu Folder Tier ID Calcium (8.4-10.2) mg/dL Magnesium (1.6-2.3) mg/dL Total Bilirubin (0.2-1.3) mg/dL AST (14-36) U/L ALT (4-34) U/L Alkaline Phosphatase (38-126) U/L Ammonia <9 (<30) umol/L Creatine Kinase (30-135) U/L Total Protein (6.3-8.2) g/dL Albumin (3.5-5.0) g/dL Serum Alcohol mg/dL Disposition Clinical Impression: Hypoglycemia, Altered mental status Disposition: ADMITTED IP TO THIS HOSP Condition: Fair Referrals: Sherlyn Chen MD [Primary Care Provider] - 1-2 days
[2020-03-14 20:45] LABS: Glucose,Whole Blood 159 mg/dL (75-99)
[2020-03-14 21:19] LABS: Anisocytosis Slight; Basophils % (A) 1 %; Eosinophils # (A) 0.1 k/uL (0-0.7); Eosinophils % (A) 1 %; HCT 27.8 % (34.0-46.0); HGB 8.6 gm/dL (11.4-16.0); Hypochromasia Slight; Lymphocytes # (A) 1.6 k/uL (1.0-4.8); Lymphocytes % (A) 47 %; MCH 29.8 pg (25.0-35.0); MCHC 30.8 g/dL (31.0-37.0); MCV 96.9 fL (80.0-100.0); Macrocytosis Slight; Mean Platelet Volume 7.5; Monocytes # (A) 0.2 k/uL (0-1.0); Monocytes % (A) 6 %; Neutrophils # (A) 1.4 k/uL (1.3-7.7); Neutrophils % (A) 42 %; Platelet Count 269 k/uL (150-450); RBC 2.87 m/uL (3.80-5.40); RDW 16.9 % (11.5-15.5); WBC 3.5 k/uL (3.8-10.6)
[2020-03-14 21:26] LABS: ALT 17 U/L (4-34); AST 37 U/L (14-36); African American GFR (CKD) 67 (>60 ml/min/1.73 sqM); Albumin 2.6 g/dL (3.5-5.0); Alcohol <10 mg/dL; Alkaline Phosphatase 76 U/L (38-126); Anion Gap 3 mmol/L; Blood Urea Nitrogen 25 mg/dL (7-17); Calcium 7.7 mg/dL (8.4-10.2); Carbon Dioxide 29 mmol/L (22-30); Chloride 109 mmol/L (98-107); Creatine Kinase 65 U/L (30-135); Glucose 91 mg/dL (74-99); Magnesium 2.7 mg/dL (1.6-2.3); Non-African American GFR(CKD) 58 (>60 ml/min/1.73 sqM); Potassium 4.1 mmol/L (3.5-5.1); Sodium 141 mmol/L (137-145); Total Bilirubin 0.3 mg/dL (0.2-1.3); Total Protein 5.6 g/dL (6.3-8.2)
--- NOTE | 2020-03-14 21:36 | XR ---
EXAMINATION TYPE: XR chest 2V DATE OF EXAM: 03/14/2020 COMPARISON: 03/05/2020 HISTORY: Short of breath TECHNIQUE: FINDINGS: Heart is normal. Lungs are clear of consolidation.. There is poorly marginated 2 cm area o f increased density over the right upper lung field There is no heart failure. There are no hilar mas ses. Costophrenic angles are clear. IMPRESSION: No active cardiopulmonary disease. There is almost complete clearing of the right side pa tchy pulmonary infiltrates compared to old exam.
[2020-03-14] MEDS ORDERED: DEXTROSE 50% SYRINGE 50 ML IVP STA (22:18)
[2020-03-14 22:26] LABS: Glucose,Whole Blood 54 mg/dL (75-99)
[2020-03-14] MEDS ORDERED: NALOXONE 0.4 MG/ML 1 ML VIAL IV PRN (22:29)
[2020-03-14] MEDS ORDERED: ONDANSETRON ODT 4 MG TAB PO PRN (22:31)
[2020-03-14] MEDS ORDERED: ALBUTEROL NEBULIZED 2.5 MG/3 ML INHALATION PRN (22:31)
[2020-03-14] MEDS: DEXTROSE 5%-0.45% NACL 1,000 ML IV SCH (23:03)
[2020-03-14 23:39] LABS: Glucose,Whole Blood 215 mg/dL (75-99)
[2020-03-15 01:02] LABS: Glucose,Whole Blood 380 mg/dL (75-99)
[2020-03-15 04:56] LABS: Glucose,Whole Blood 518 mg/dL (75-99)
[2020-03-15] MEDS: INSULIN ASPART (NovoLOG) 100 UNIT/ML VIAL SQ SCH ×6 (05:55→20:50)
[2020-03-15 07:12] LABS: Glucose,Whole Blood 495 mg/dL (75-99)
[2020-03-15] MEDS: FAMOTIDINE 20 MG TAB PO SCH (08:39)
[2020-03-15] MEDS: ASCORBIC ACID 500 MG TAB PO SCH (08:40)
[2020-03-15] MEDS: DULoxetine HCL 60 MG CAPSULE.DR PO SCH (08:40)
[2020-03-15] MEDS: ATORVASTATIN 20 MG TAB PO SCH (08:40)
[2020-03-15] MEDS: LACOSAMIDE 50 MG TABLET PO SCH ×2 (08:40→20:48)
[2020-03-15] MEDS: ASPIRIN 81 MG PO SCH (08:40)
[2020-03-15] MEDS: CALCIUM CARB-VIT D 500MG-200UN 1 EACH TAB PO SCH ×2 (08:40→16:47)
[2020-03-15] MEDS: FERROUS SULFATE 325 MG TAB PO SCH (08:41)
[2020-03-15] MEDS: LOSARTAN 50 MG TAB PO SCH (08:41)
[2020-03-15] MEDS: CLOPIDOGREL 75 MG TAB PO SCH (08:41)
[2020-03-15] MEDS: DIVALPROEX 250 MG TABLET.DR PO SCH ×3 (08:41→20:48)
[2020-03-15] MEDS: METOCLOPRAMIDE 10 MG TAB PO SCH ×3 (08:42→16:47)
[2020-03-15 09:38] LABS: Anisocytosis Slight; Basophils % (A) 1 %; Eosinophils % (A) 1 %; HCT 31.9 % (34.0-46.0); HGB 9.6 gm/dL (11.4-16.0); Hypochromasia Marked; Lymphocytes # (A) 1.4 k/uL (1.0-4.8); Lymphocytes % (A) 38 %; MCH 29.6 pg (25.0-35.0); MCV 98.5 fL (80.0-100.0); Macrocytosis Slight; Mean Platelet Volume 7.6; Monocytes # (A) 0.3 k/uL (0-1.0); Monocytes % (A) 8 %; Neutrophils # (A) 1.9 k/uL (1.3-7.7); Neutrophils % (A) 50 %; Platelet Count 326 k/uL (150-450); RBC 3.24 m/uL (3.80-5.40); RDW 16.4 % (11.5-15.5); WBC 3.7 k/uL (3.8-10.6)
--- NOTE | 2020-03-15 11:16 | P.HPIM ---
History of Present Illness H&P Date: 03/15/20 Chief Complaint: Mental status changes hypoglycemia This is 59-year-old female patient well-known to my services. Patient was recently discharged she was admitted to the hospital for DKA and pneumonia. Patient has underlying history of diabetes mellitus type 1 which is a brittle diabetic. Lantus was decreased upon discharge. Additional medical history includes stroke and seizures. She was discharged home with her sister. According to ER report patient was found to have a low blood sugar with altered mental status changes. Blood sugar was corrected and alt mental status changes recovered. There is questionable compliance with diet. Consult placed for possible ECF placement on discharge. Chest x-ray was completed showing no active cardiopulmonary disease. There is almost complete clearing of the right side patchy pulmonary infiltrate compared to old exam. We'll continue to monitor blood sugar closely and make adjustments to home medication Review of Systems please refer to HPI otherwise unremarkable Past Medical History Past Medical History: Asthma, Coronary Artery Disease (CAD), Chest Pain / Angina, Heart Failure, COPD, CVA/TIA, Diabetes Mellitus, Deep Vein Thrombosis (DVT), Eye Disorder, GERD/Reflux, Hyperlipidemia, Hypertension, Myocardial Infarction ([place]), Neurologic Disorder, Osteoarthritis (OA), Pneumonia, Renal Disease Additional Past Medical History / Comment(s): IDDM (brittle), DKAs, neuropathy bilateral hands/feet, retinopathy bilateral eyes, cellulitis R foot, R great toe and 2nd toe infections/amputations, current wound R foot-being seen in [facility], renal failure, anemia, CVAs with L sided paralysis, headaches started after CVAs, brain lesions, DVT R axillae, low back pain, varicosities, seizure many years ago (2001), hypothyroid, constipation, bilateral tinnitis occasionally, sinus problems. Last Myocardial Infarction Date:: 2011 History of Any Multi-Drug Resistant Organisms: MRSA Date of last positivie culture/infection: 09/06/17 MDRO Source:: Right Foot Past Surgical History: Appendectomy, Section, Cholecystectomy, Heart Catheterization With Stent, Hysterectomy, Orthopedic Surgery Additional Past Surgical History / Comment(s): PCI with multiple stents, R great toe and 2nd toe amps, debridements R foot ulcer, L shoulder surgery to remove bone, bronchoscopy, EGD, colonoscopy, R arm port since removed, bilateral cataract removals/lens implants. Past Anesthesia/Blood Transfusion Reactions: No Reported Reaction Additional Past Anesthesia/Blood Transfusion Reaction / Comment(s): HX OF BLOOD TRANSFUSION- NO REACTION Date of Last Stent Placement:: July 2012 Past Psychological History: Anxiety, Bipolar, Depression Additional Psychological History / Comment(s): Pt has a legal guardian, Sera Rodriguez, who is pt's sister. Currently her legal guardian is hospitalized. Pt has a caregiver, No, who resides with her. Pt is wheelchair bound d/t CVA with L sided paralysis arm and leg. She has a shower chair and a glucometer. Her sister or caregiver drive her to [facility]. Smoking Status: Former smoker Past Alcohol Use History: None Reported Additional Past Alcohol Use History / Comment(s): Pt started smoking in 1982 and quit in 2017. Using marijuana edibles occasionally but none for a "long time" Past Drug Use History: Marijuana Additional Drug Use History / Comment(s): using marijuana edibles - Past Family History Father Family Medical History: Unable to Obtain, Coronary Artery Disease (CAD), Diabetes Mellitus Mother Family Medical History: COPD Medications and Allergies Home Medications Medication Instructions Recorded Confirmed Type Famotidine [Pepcid] 20 mg PO DAILY 07/19/15 03/14/20 History HYDROcodone/APAP 10-325MG [[place] 1 tab PO TID PRN 10/03/16 03/14/20 History 10-325] DULoxetine HCL [Cymbalta] 60 mg PO DAILY 02/16/17 03/14/20 History Atorvastatin [Lipitor] 20 mg PO DAILY 12/28/18 03/14/20 History Aspirin [Adult Low Dose Aspirin EC] 81 mg PO DAILY 06/09/19 03/14/20 History Ferrous Sulfate [Iron (65 MG 325 mg PO DAILY 06/09/19 03/14/20 History Elemental)] Divalproex [Depakote] 250 mg PO TID #90 tablet. 08/17/19 03/14/20 Rx ALPRAZolam [Xanax] 1 mg PO Q8H PRN 12/26/19 03/14/20 History Albuterol Sulfate [Ventolin HFA] 2 puff INHALATION RT-Q4H PRN 12/26/19 03/14/20 History Ondansetron Odt [Zofran ODT] 4 mg PO DAILY PRN 12/26/19 03/14/20 History Losartan [Cozaar] 50 mg PO DAILY tab 01/18/20 03/14/20 Rx Metoclopramide [Reglan] 10 mg PO AC-TID tab 01/18/20 03/14/20 Rx Ascorbic Acid [Vitamin C] 500 mg PO DAILY 01/29/20 03/14/20 History Vitamin B Complex 1 tab PO DAILY 01/29/20 03/14/20 History Calcium Carb-Vit D 500Mg-200Un 1 each PO BID-W/MEALS tab 02/02/20 03/14/20 Rx [Oscal 500+D] Clopidogrel [Plavix] 75 mg PO DAILY tab 02/02/20 03/14/20 Rx INSULIN ASPART (NovoLOG) [NovoLOG 0 unit SQ AC-TID vial 02/02/20 03/14/20 Rx (formulary)] Insulin Glargine,Hum.rec.anlog 10 unit SQ HS #0 03/13/20 03/14/20 Rx [Basaglar Kwikpen U-100] Lacosamide [Vimpat] 100 mg PO BID 30 Days #60 tablet 03/13/20 03/14/20 Rx QUEtiapine [SEROquel] 50 mg PO HS 30 Days #30 tab 03/13/20 03/14/20 Rx QUEtiapine [SEROquel] 25 mg PO BID 03/14/20 03/14/20 History Allergies Allergy/AdvReac Type Severity Reaction Status Date / Time Barbiturates Allergy Rash/Hives Verified 03/14/20 22:22 cephalexin monohydrate Allergy Rash/Hives Verified 03/14/20 22:22 [From Keflex] morphine Allergy Rash/Hives Verified 03/14/20 22:22 Penicillins Allergy Rash/Hives Verified 03/14/20 22:22 phenobarbital Allergy Swelling Verified 03/14/20 22:22 venom-honey bee Allergy Swelling Verified 03/14/20 22:22 [bee venom (honey bee)] amlodipine besylate AdvReac Vomiting Verified 03/14/20 22:22 [From Norvasc] Physical Exam Vitals: Vital Signs Temp Pulse Pulse Pulse Resp BP BP 03/15/20 04:29 98.2 F 91 16 147/74 03/15/20 00:45 97.7 F 87 18 107/69 03/14/20 22:24 78 18 115/91 03/14/20 20:40 98.7 F 80 18 107/97 Pulse Ox 03/15/20 04:29 97 03/15/20 00:45 95 03/14/20 22:24 98 03/14/20 20:40 100 Intake and Output 03/14/20 03/15/20 03/15/20 22:59 06:59 14:59 Intake Total 310 Balance 310 Intake: Intake, IV Titration 60 Amount Dextrose 5%-0.45% NaCl 1, 60 000 ml @ 20 mls/hr IV . Q24H [facility] Rx#:[id number] Oral 250 Other: Voiding Method Toilet Diaper # Voids 4 Weight 58.967 kg 58.967 kg Head normocephalic Neck supple Lungs clear to auscultation bilaterally no wheezing or crackles Heart regular rate and rhythm S1-S2, no rub or gallop Abdomen is soft nontender nondistended positive bowel sounds no hepatosp lenomegaly Extremities no edema Neuro alert and orientated to 3 Results CBC & Chem 7: 03/15/20 09:11 03/14/20 21:00 Labs: Abnormal Lab Results - Last 24 Hours (Table) 03/14/20 03/14/20 03/14/20 Range/Units 20:33 21:00 21:00 WBC 3.5 L (3.8-10.6) k/uL RBC 2.87 L (3.80-5.40) m/uL Hgb 8.6 L (11.4-16.0) gm/dL Hct 27.8 L (34.0-46.0) % MCHC 30.8 L (31.0-37.0) g/dL RDW 16.9 H (11.5-15.5) % Chloride 109 H (98-107) mmol/L BUN 25 H (7-17) mg/dL Creatinine 1.05 H (0.52-1.04) mg/dL POC Glucose (mg/dL) 159 H (75-99) mg/dL Calcium 7.7 L (8.4-10.2) mg/dL Magnesium 2.7 H (1.6-2.3) mg/dL AST 37 H (14-36) U/L Total Protein 5.6 L (6.3-8.2) g/dL Albumin 2.6 L (3.5-5.0) g/dL 03/14/20 03/14/20 03/15/20 Range/Units 22:15 23:38 00:42 WBC (3.8-10.6) k/uL RBC (3.80-5.40) m/uL Hgb (11.4-16.0) gm/dL Hct (34.0-46.0) % MCHC (31.0-37.0) g/dL RDW (11.5-15.5) % Chloride (98-107) mmol/L BUN (7-17) mg/dL Creatinine (0.52-1.04) mg/dL POC Glucose (mg/dL) 54 L 215 H 380 H (75-99) mg/dL Calcium (8.4-10.2) mg/dL Magnesium (1.6-2.3) mg/dL AST (14-36) U/L Total Protein (6.3-8.2) g/dL Albumin (3.5-5.0) g/dL 03/15/20 03/15/20 03/15/20 Range/Units 04:46 07:12 09:11 WBC 3.7 L (3.8-10.6) k/uL RBC 3.24 L (3.80-5.40) m/uL Hgb 9.6 L (11.4-16.0) gm/dL Hct 31.9 L (34.0-46.0) % MCHC 30.0 L (31.0-37.0) g/dL RDW 16.4 H (11.5-15.5) % Chloride (98-107) mmol/L BUN (7-17) mg/dL Creatinine (0.52-1.04) mg/dL POC Glucose (mg/dL) 518 H 495 H (75-99) mg/dL Calcium (8.4-10.2) mg/dL Magnesium (1.6-2.3) mg/dL AST (14-36) U/L Total Protein (6.3-8.2) g/dL Albumin (3.5-5.0) g/dL Thrombosis Risk Factor Assmnt - Choose All That Apply Each Factor Represents 1 point: Age 41-60 years Thrombosis Risk Factor Assessment Total Risk Factor Score: 1 Thrombosis Risk Factor Assessment Level: Low Risk Assessment and Plan Assessment: 1. Altered mental status is with hypoglycemia. Hypoglycemia was corrected altered mental status changes have resolved 2. Diabetes mellitus type 1. Patient is known to be a brittle diabetic with fluctuating blood sugars 3. Recent hospitalization for pneumonia. Chest x-ray completed showing improvement 4. History of seizures. Patient was evaluated by neurology services and medications adjusted during previous day 5. History of stroke 6. Essential hypertension 7. History of hyperlipidemia. Patient obtained on statin 8. History of COPD no exacerbation at this time 9. History of coronary artery disease 10. History of peripheral vascular disease with previous history of multiple toe amputations 11. Iron deficiency anemia DVT prophylaxis Lovenox. GI prophylaxis Pepcid PT OT consulted for possible ECF placement Time with Patient: Greater than 30 (Greater than 60% of the total time spent in counseling and coordination of care. I performed an examination of the patient and discussed their management with the Nurse Practitioner. I have reviewed the Nurse Practitioner's notes and agree with the documented findings and plan of care)
[2020-03-15 11:25] LABS: Glucose,Whole Blood 84 mg/dL (75-99)
[2020-03-15 11:35] LABS: Appearance,Urine Clear (Clear); Bacteria,Urine Rare /hpf; Bilirubin,Urine Negative (Negative); Blood,Urine Trace (Negative); Color,Urine Yellow; Glucose,Urine (UA) 4+ (Negative); Hyaline Casts,Urine 4 /lpf (0-2); Ketones,Urine Negative (Negative); Leukocyte Esterase,Urine Small (Negative); Mucus,Urine Rare /hpf; Nitrite,Urine Negative (Negative); Protein,Urine Negative (Negative); RBC,Urine 4 /hpf (0-5); Specific Gravity,Urine 1.017 (1.001-1.035); Urobilinogen,Urine <2.0 mg/dL (<2.0); WBC,Urine 3 /hpf (0-5)
[2020-03-15 13:41] VITALS: BMI 23.8
[2020-03-15 17:09] LABS: Glucose,Whole Blood 517 mg/dL (75-99)
[2020-03-15 17:10] LABS: Glucose,Whole Blood 547 mg/dL (75-99)
[2020-03-15 18:00] LABS: African American GFR (CKD) 57.3 (60.0-200.0); Albumin 3.2 g/dL (3.80-4.90); Albumin/Globulin Ratio 1.1 (1.60-3.17); Anion Gap 7.1 mmol/L (4.00-12.00); BUN/Creat Ratio 18.33 Ratio (12.00-20.00); Calcium 8.4 mg/dL (8.7-10.3); Carbon Dioxide 30.9 mmol/L (21.6-31.8); Globulin 2.9 g/dL (1.6-3.3); Non-African American GFR(CKD) 49.4 (60.0-200.0); Potassium 4.9 mmol/L (3.5-5.5); Total Bilirubin 0.2 mg/dL (0.2-1.2); Total Protein 6.1 g/dL (6.2-8.2)
[2020-03-15 19:13] LABS: Glucose,Whole Blood >600 mg/dL (75-99)
[2020-03-15] MEDS: INSULIN DETEMIR (LEVEMIR) 100 UNIT/ML SYR SQ SCH (20:50)
[2020-03-15 23:36] LABS: Glucose,Whole Blood 123 mg/dL (75-99)
[2020-03-16 00:06] LABS: Glucose,Whole Blood 77 mg/dL (75-99)
[2020-03-16] MEDS: DEXTROSE 5%-0.45% NACL 1,000 ML IV SCH ×2 (01:26→22:00)
[2020-03-16 02:31] LABS: Glucose,Whole Blood 115 mg/dL (75-99)
[2020-03-16 06:15] LABS: Anisocytosis Slight; Basophils % (A) 1 %; Eosinophils % (A) 1 %; HCT 29.1 % (34.0-46.0); HGB 8.9 gm/dL (11.4-16.0); Hypochromasia Slight; Lymphocytes # (A) 2.2 k/uL (1.0-4.8); Lymphocytes % (A) 54 %; MCH 29.5 pg (25.0-35.0); MCHC 30.7 g/dL (31.0-37.0); Mean Platelet Volume 7.7; Monocytes # (A) 0.4 k/uL (0-1.0); Monocytes % (A) 9 %; Neutrophils # (A) 1.4 k/uL (1.3-7.7); Neutrophils % (A) 34 %; Platelet Count 272 k/uL (150-450); RBC 3.03 m/uL (3.80-5.40); RDW 16.7 % (11.5-15.5); WBC 4.1 k/uL (3.8-10.6)
[2020-03-16 07:22] LABS: Glucose,Whole Blood 109 mg/dL (75-99)
[2020-03-16] MEDS: ASPIRIN 81 MG PO SCH (09:04)
[2020-03-16] MEDS: ATORVASTATIN 20 MG TAB PO SCH (09:04)
[2020-03-16] MEDS: CLOPIDOGREL 75 MG TAB PO SCH (09:04)
[2020-03-16] MEDS: ASCORBIC ACID 500 MG TAB PO SCH (09:05)
[2020-03-16] MEDS: DULoxetine HCL 60 MG CAPSULE.DR PO SCH (09:05)
[2020-03-16] MEDS: ENOXAPARIN 40 MG/0.4 ML SYRINGE SQ SCH (09:05)
[2020-03-16] MEDS: LACOSAMIDE 50 MG TABLET PO SCH ×2 (09:05→21:53)
[2020-03-16] MEDS: FAMOTIDINE 20 MG TAB PO SCH (09:05)
[2020-03-16] MEDS: LOSARTAN 50 MG TAB PO SCH (09:05)
[2020-03-16] MEDS: CALCIUM CARB-VIT D 500MG-200UN 1 EACH TAB PO SCH ×2 (09:05→17:01)
[2020-03-16] MEDS: INSULIN ASPART (NovoLOG) 100 UNIT/ML VIAL SQ SCH ×4 (09:05→21:53)
[2020-03-16 09:15] LABS: African American GFR (CKD) 71.4 (60.0-200.0); Albumin/Globulin Ratio 1.11 (1.60-3.17); Anion Gap 6.7 mmol/L (4.00-12.00); Calcium 8.7 mg/dL (8.7-10.3); Carbon Dioxide 30.3 mmol/L (21.6-31.8); Globulin 2.7 g/dL (1.6-3.3); Non-African American GFR(CKD) 61.6 (60.0-200.0); Potassium 4.9 mmol/L (3.5-5.5); Total Bilirubin 0.1 mg/dL (0.2-1.2); Total Protein 5.7 g/dL (6.2-8.2)
[2020-03-16] MEDS: DIVALPROEX 250 MG TABLET.DR PO SCH ×3 (09:18→21:53)
[2020-03-16] MEDS: METOCLOPRAMIDE 10 MG TAB PO SCH ×3 (09:18→17:01)
[2020-03-16] MEDS: FERROUS SULFATE 325 MG TAB PO SCH (09:18)
[2020-03-16] MEDS: ALPRAZolam 1 MG TAB PO PRN ×2 (09:39→23:03)
[2020-03-16] MEDS: HYDROcodone/APAP 10-325MG 1 EACH TAB PO PRN ×2 (09:51→23:03)
--- NOTE | 2020-03-16 12:00 | P.PN ---
Subjective Progress Note Date: 03/16/20 Melva Jackson, is a 59-year-old female patient well-known to my services. Patient was recently discharged she was admitted to the hospital for DKA and pneumonia. Patient has underlying history of diabetes mellitus type 1 which is a brittle diabetic. Lantus was decreased upon discharge. Additional medical history includes stroke and seizures. She was discharged home with her sister. According to ER report patient was found to have a low blood sugar with altered mental status changes. Blood sugar was corrected and alt mental status changes recovered. There is questionable compliance with diet. Consult placed for possible ECF placement on discharge. Chest x-ray was completed showing no ac tive cardiopulmonary disease. There is almost complete clearing of the right side patchy pulmonary infiltrate compared to old exam. We'll continue to monitor blood sugar closely and make adjustments to home medication . On 03/16/2020 patient was seen and examined on the medical floor she is alert and oriented 3 in no distress there is no fever or chills no headache or dizziness no chest pain no shortness of breath no cough no nausea or vomiting no abdominal pain no diarrhea no blood in the stools no burning with urination no frequency or urgency and no hematuria glucose levels are much better controlled today she is receiving Levemir 10 units at bedtime and sliding scale before meals Objective - Vital Signs Vital signs: Vital Signs Temp 98 F 03/16/20 07:06 Pulse 76 03/16/20 07:06 Resp 20 03/16/20 07:06 BP 112/71 03/16/20 07:06 Pulse Ox 95 03/16/20 07:06 Intake & Output 03/15/20 03/16/20 03/16/20 18:59 06:59 18:59 Weight 58.967 kg Other: Voiding Method Diaper Diaper Diaper Incontinent Incontinent Incontinent # Voids 4 2 # Bowel Movements 1 - Exam Head normocephalic and atraumatic Neck supple no JVD no goiter Lungs clear to auscultation bilaterally no wheezing or crackles Heart regular rate and rhythm S1-S2, no rub or gallop Abdomen is soft nontender nondistended positive bowel sounds no hepatosplenomegaly Extremities no edema no cyanosis or clubbing Neuro alert and orientated to 3 - Labs CBC & Chem 7: 03/16/20 05:21 03/16/20 05:21 Labs: Abnormal Lab Results - Last 24 Hours (Table) 03/15/20 03/15/20 03/15/20 Range/Units 09:11 11:14 17:08 RBC (3.80-5.40) m/uL Hgb (11.4-16.0) gm/dL Hct (34.0-46.0) % MCHC (31.0-37.0) g/dL RDW (11.5-15.5) % Est GFR (CKD-EPI)AfAm 57.3 L (60.0-200.0) Est GFR (CKD-EPI)NonAf 49.4 L (60.0-200.0) BUN/Creatinine Ratio (12.00-20.00) Ratio Glucose 392 H (70-110) mg/dL POC Glucose (mg/dL) 517 H (75-99) mg/dL Calcium 8.4 L (8.7-10.3) mg/dL Total Bilirubin (0.2-1.2) mg/dL Total Protein 6.1 L (6.2-8.2) g/dL Albumin 3.20 L (3.80-4.90) g/dL Albumin/Globulin Ratio 1.10 L (1.60-3.17) g/dL Urine Glucose (UA) 4+ H (Negative) Urine Blood Trace H (Negative) Ur Leukocyte Esterase Small H (Negative) Urine Bacteria Rare H (None) /hpf Hyaline Casts 4 H (0-2) /lpf Urine Mucus Rare H (None) /hpf 03/15/20 03/15/20 03/15/20 Range/Units 17:09 17:26 19:10 RBC (3.80-5.40) m/uL Hgb (11.4-16.0) gm/dL Hct (34.0-46.0) % MCHC (31.0-37.0) g/dL RDW (11.5-15.5) % Est GFR (CKD-EPI)AfAm (60.0-200.0) Est GFR (CKD-EPI)NonAf (60.0-200.0) BUN/Creatinine Ratio (12.00-20.00) Ratio Glucose 617 H* (70-110) mg/dL POC Glucose (mg/dL) 547 H >600 H (75-99) mg/dL Calcium (8.7-10.3) mg/dL Total Bilirubin (0.2-1.2) mg/dL Total Protein (6.2-8.2) g/dL Albumin (3.80-4.90) g/dL Albumin/Globulin Ratio (1.60-3.17) g/dL Urine Glucose (UA) (Negative) Urine Blood (Negative) Ur Leukocyte Esterase (Negative) Urine Bacteria (None) /hpf Hyaline Casts (0-2) /lpf Urine Mucus (None) /hpf 03/15/20 03/16/20 03/16/20 Range/Units 23:24 02:19 05:21 RBC 3.03 L (3.80-5.40) m/uL Hgb 8.9 L (11.4-16.0) gm/dL Hct 29.1 L (34.0-46.0) % MCHC 30.7 L (31.0-37.0) g/dL RDW 16.7 H (11.5-15.5) % Est GFR (CKD-EPI)AfAm (60.0-200.0) Est GFR (CKD-EPI)NonAf (60.0-200.0) BUN/Creatinine Ratio (12.00-20.00) Ratio Glucose (70-110) mg/dL POC Glucose (mg/dL) 123 H 115 H (75-99) mg/dL Calcium (8.7-10.3) mg/dL Total Bilirubin (0.2-1.2) mg/dL Total Protein (6.2-8.2) g/dL Albumin (3.80-4.90) g/dL Albumin/Globulin Ratio (1.60-3.17) g/dL Urine Glucose (UA) (Negative) Urine Blood (Negative) Ur Leukocyte Esterase (Negative) Urine Bacteria (None) /hpf Hyaline Casts (0-2) /lpf Urine Mucus (None) /hpf 03/16/20 03/16/20 Range/Units 05:21 07:10 RBC (3.80-5.40) m/uL Hgb (11.4-16.0) gm/dL Hct (34.0-46.0) % MCHC (31.0-37.0) g/dL RDW (11.5-15.5) % Est GFR (CKD-EPI)AfAm (60.0-200.0) Est GFR (CKD-EPI)NonAf (60.0-200.0) BUN/Creatinine Ratio 22.00 H (12.00-20.00) Ratio Glucose (70-110) mg/dL POC Glucose (mg/dL) 109 H (75-99) mg/dL Calcium (8.7-10.3) mg/dL Total Bilirubin 0.1 L (0.2-1.2) mg/dL Total Protein 5.7 L (6.2-8.2) g/dL Albumin 3.00 L (3.80-4.90) g/dL Albumin/Globulin Ratio 1.11 L (1.60-3.17) g/dL Urine Glucose (UA) (Negative) Urine Blood (Negative) Ur Leukocyte Esterase (Negative) Urine Bacteria (None) /hpf Hyaline Casts (0-2) /lpf Urine Mucus (None) /hpf Assessment and Plan Plan: 1. Altered mental status is with hypoglycemia. Hypoglycemia was corrected altered mental status changes have resolved 2. Diabetes mellitus type 1. Patient is known to be a brittle diabetic with fluctuating blood sugars 3. Recent hospitalization for pneumonia. Chest x-ray completed showing improvement 4. History of seizures. Patient was evaluated by neurology services and medications adjusted during previous day 5. History of stroke 6. Essential hypertension 7. History of hyperlipidemia. Patient obtained on statin 8. History of COPD no exacerbation at this time 9. History of coronary artery disease 10. History of peripheral vascular disease with previous history of multiple toe amputations 11. Iron deficiency anemia DVT prophylaxis Lovenox. GI prophylaxis Pepcid PT OT consulted for possible ECF placement
[2020-03-16 12:25] LABS: Glucose,Whole Blood 425 mg/dL (75-99)
[2020-03-16 14:25] LABS: Glucose,Whole Blood 396 mg/dL (75-99)
[2020-03-16 17:03] LABS: Glucose,Whole Blood 173 mg/dL (75-99)
[2020-03-16 20:18] LABS: Glucose,Whole Blood 175 mg/dL (75-99)
[2020-03-16] MEDS: INSULIN DETEMIR (LEVEMIR) 100 UNIT/ML SYR SQ SCH (21:53)
[2020-03-17 02:25] LABS: Glucose,Whole Blood 77 mg/dL (75-99)
[2020-03-17 06:34] LABS: Glucose,Whole Blood 67 mg/dL (75-99)
[2020-03-17 06:34] LABS: Glucose,Whole Blood 63 mg/dL (75-99)
[2020-03-17 06:52] LABS: Glucose,Whole Blood 62 mg/dL (75-99)
[2020-03-17 07:12] LABS: Glucose,Whole Blood 86 mg/dL (75-99)
[2020-03-17 07:25] LABS: Anisocytosis Slight; Basophils % (A) 1 %; Eosinophils % (A) 1 %; HCT 31.8 % (34.0-46.0); HGB 9.6 gm/dL (11.4-16.0); Hypochromasia Moderate; Lymphocytes % (A) 62 %; MCH 29.3 pg (25.0-35.0); MCHC 30.2 g/dL (31.0-37.0); MCV 97.1 fL (80.0-100.0); Macrocytosis Slight; Mean Platelet Volume 7.6; Monocytes # (A) 0.3 k/uL (0-1.0); Monocytes % (A) 8 %; Neutrophils # (A) 0.8 k/uL (1.3-7.7); Neutrophils % (A) 26 %; Platelet Count 281 k/uL (150-450); RBC 3.28 m/uL (3.80-5.40); RDW 16.4 % (11.5-15.5); WBC 3.2 k/uL (3.8-10.6)
[2020-03-17] MEDS: ASPIRIN 81 MG PO SCH (09:04)
[2020-03-17] MEDS: FAMOTIDINE 20 MG TAB PO SCH (09:04)
[2020-03-17] MEDS: LACOSAMIDE 50 MG TABLET PO SCH ×2 (09:04→21:28)
[2020-03-17] MEDS: ATORVASTATIN 20 MG TAB PO SCH (09:04)
[2020-03-17] MEDS: ASCORBIC ACID 500 MG TAB PO SCH (09:04)
[2020-03-17] MEDS: METOCLOPRAMIDE 10 MG TAB PO SCH ×3 (09:05→17:16)
[2020-03-17] MEDS: ALPRAZolam 1 MG TAB PO PRN ×2 (09:05→23:33)
[2020-03-17] MEDS: CLOPIDOGREL 75 MG TAB PO SCH (09:05)
[2020-03-17] MEDS: DULoxetine HCL 60 MG CAPSULE.DR PO SCH (09:05)
[2020-03-17] MEDS: DIVALPROEX 250 MG TABLET.DR PO SCH ×3 (09:06→21:28)
[2020-03-17] MEDS: INSULIN ASPART (NovoLOG) 100 UNIT/ML VIAL SQ SCH ×4 (09:06→21:29)
[2020-03-17] MEDS: FERROUS SULFATE 325 MG TAB PO SCH (09:06)
[2020-03-17] MEDS: ENOXAPARIN 40 MG/0.4 ML SYRINGE SQ SCH (09:06)
[2020-03-17] MEDS: CALCIUM CARB-VIT D 500MG-200UN 1 EACH TAB PO SCH ×2 (09:06→17:16)
[2020-03-17] MEDS: LOSARTAN 50 MG TAB PO SCH (09:06)
[2020-03-17 09:45] LABS: African American GFR (CKD) 40.5 (60.0-200.0); Albumin 3.2 g/dL (3.80-4.90); Albumin/Globulin Ratio 1.1 (1.60-3.17); Anion Gap 4.8 mmol/L (4.00-12.00); BUN/Creat Ratio 19.38 Ratio (12.00-20.00); Carbon Dioxide 32.2 mmol/L (21.6-31.8); Globulin 2.9 g/dL (1.6-3.3); Non-African American GFR(CKD) 34.9 (60.0-200.0); Potassium 4.9 mmol/L (3.5-5.5); Total Bilirubin 0.3 mg/dL (0.2-1.2); Total Protein 6.1 g/dL (6.2-8.2)
[2020-03-17 11:16] LABS: Glucose,Whole Blood 464 mg/dL (75-99)
--- NOTE | 2020-03-17 12:26 | P.PN ---
Subjective Progress Note Date: 03/17/20 Melva Jackson, is a 59-year-old female patient well-known to my services. Patient was recently discharged she was admitted to the hospital for DKA and pneumonia. Patient has underlying history of diabetes mellitus type 1 which is a brittle diabetic. Lantus was decreased upon discharge. Additional medical history includes stroke and seizures. She was discharged home with her sister. According to ER report patient was found to have a low blood sugar with altered mental status changes. Blood sugar was corrected and alt mental status changes recovered. There is questionable compliance with diet. Consult placed for possible ECF placement on discharge. Chest x-ray was completed showing no ac tive cardiopulmonary disease. There is almost complete clearing of the right side patchy pulmonary infiltrate compared to old exam. We'll continue to monitor blood sugar closely and make adjustments to home medication . On 03/16/2020 patient was seen and examined on the medical floor she is alert and oriented 3 in no distress there is no fever or chills no headache or dizziness no chest pain no shortness of breath no cough no nausea or vomiting no abdominal pain no diarrhea no blood in the stools no burning with urination no frequency or urgency and no hematuria glucose levels are much better controlled today she is receiving Levemir 10 units at bedtime and sliding scale before meals On 03/17/2020 patient was seen and examined on the medical floor she is alert and oriented 3 in no distress there is no fever or chills no headache or dizziness no chest pain no shortness of breath no cough no nausea or vomiting no abdominal pain no diarrhea no blood in the stools no burning with urination no frequency or urgency and no hematuria. Patient to glucose level is still fluctuating she was 88 before breakfast this morning no short-acting insulin was given patient was given breakfast her glucose level was 464 before lunch she is being given 8 units of NovoLog before lunch will continue to monitor and adjust insulin, possible transfer to rehab tomorrow Objective - Vital Signs Vital signs: Vital Signs Temp 98.8 F 03/17/20 12:06 Pulse 72 03/17/20 12:06 Resp 16 03/17/20 12:06 BP 101/51 03/17/20 12:06 Pulse Ox 95 03/17/20 12:06 Intake & Output 03/16/20 03/17/20 03/17/20 18:59 06:59 18:59 Intake Total 60 Balance 60 Intake: Oral 60 Other: Voiding Method Diaper Bedpan Bedpan Incontinent Diaper Diaper Incontinent Incontinent # Voids 1 2 # Bowel Movements 1 - Exam Head normocephalic and atraumatic Neck supple no JVD no goiter Lungs clear to auscultation bilaterally no wheezing or crackles Heart regular rate and rhythm S1-S2, no rub or gallop Abdomen is soft nontender nondistended positive bowel sounds no hepatosplenomegaly Extremities no edema no cyanosis or clubbing Neuro alert and orientated to 3 - Labs CBC & Chem 7: 03/17/20 06:09 03/17/20 06:09 Labs: Abnormal Lab Results - Last 24 Hours (Table) 03/16/20 03/16/20 03/16/20 Range/Units 12:24 14:12 17:02 WBC (3.8-10.6) k/uL RBC (3.80-5.40) m/uL Hgb (11.4-16.0) gm/dL Hct (34.0-46.0) % MCHC (31.0-37.0) g/dL RDW (11.5-15.5) % Neutrophils # (1.3-7.7) k/uL Carbon Dioxide (21.6-31.8) mmol/L BUN (9.0-27.0) mg/dL Creatinine (0.6-1.5) mg/dL Est GFR (CKD-EPI)AfAm (60.0-200.0) Est GFR (CKD-EPI)NonAf (60.0-200.0) Glucose (70-110) mg/dL POC Glucose (mg/dL) 425 H 396 H 173 H (75-99) mg/dL AST (13-35) U/L ALT (8-44) U/L Alkaline Phosphatase (41-126) U/L Total Protein (6.2-8.2) g/dL Albumin (3.80-4.90) g/dL Albumin/Globulin Ratio (1.60-3.17) g/dL 03/16/20 03/17/20 03/17/20 Range/Units 20:10 06:09 06:09 WBC 3.2 L (3.8-10.6) k/uL RBC 3.28 L (3.80-5.40) m/uL Hgb 9.6 L (11.4-16.0) gm/dL Hct 31.8 L (34.0-46.0) % MCHC 30.2 L (31.0-37.0) g/dL RDW 16.4 H (11.5-15.5) % Neutrophils # 0.8 L (1.3-7.7) k/uL Carbon Dioxide 32.2 H (21.6-31.8) mmol/L BUN 31.0 H (9.0-27.0) mg/dL Creatinine 1.6 H (0.6-1.5) mg/dL Est GFR (CKD-EPI)AfAm 40.5 L (60.0-200.0) Est GFR (CKD-EPI)NonAf 34.9 L (60.0-200.0) Glucose 65 L (70-110) mg/dL POC Glucose (mg/dL) 175 H (75-99) mg/dL AST 1100 H (13-35) U/L ALT 258 H (8-44) U/L Alkaline Phosphatase 261 H (41-126) U/L Total Protein 6.1 L (6.2-8.2) g/dL Albumin 3.20 L (3.80-4.90) g/dL Albumin/Globulin Ratio 1.10 L (1.60-3.17) g/dL 03/17/20 03/17/20 03/17/20 Range/Units 06:28 06:31 06:50 WBC (3.8-10.6) k/uL RBC (3.80-5.40) m/uL Hgb (11.4-16.0) gm/dL Hct (34.0-46.0) % MCHC (31.0-37.0) g/dL RDW (11.5-15.5) % Neutrophils # (1.3-7.7) k/uL Carbon Dioxide (21.6-31.8) mmol/L BUN (9.0-27.0) mg/dL Creatinine (0.6-1.5) mg/dL Est GFR (CKD-EPI)AfAm (60.0-200.0) Est GFR (CKD-EPI)NonAf (60.0-200.0) Glucose (70-110) mg/dL POC Glucose (mg/dL) 67 L 63 L 62 L (75-99) mg/dL AST (13-35) U/L ALT (8-44) U/L Alkaline Phosphatase (41-126) U/L Total Protein (6.2-8.2) g/dL Albumin (3.80-4.90) g/dL Albumin/Globulin Ratio (1.60-3.17) g/dL 03/17/20 Range/Units 11:15 WBC (3.8-10.6) k/uL RBC (3.80-5.40) m/uL Hgb (11.4-16.0) gm/dL Hct (34.0-46.0) % MCHC (31.0-37.0) g/dL RDW (11.5-15.5) % Neutrophils # (1.3-7.7) k/uL Carbon Dioxide (21.6-31.8) mmol/L BUN (9.0-27.0) mg/dL Creatinine (0.6-1.5) mg/dL Est GFR (CKD-EPI)AfAm (60.0-200.0) Est GFR (CKD-EPI)NonAf (60.0-200.0) Glucose (70-110) mg/dL POC Glucose (mg/dL) 464 H (75-99) mg/dL AST (13-35) U/L ALT (8-44) U/L Alkaline Phosphatase (41-126) U/L Total Protein (6.2-8.2) g/dL Albumin (3.80-4.90) g/dL Albumin/Globulin Ratio (1.60-3.17) g/dL Assessment and Plan Plan: 1. Altered mental status is with hypoglycemia. Hypoglycemia was corrected altered mental status changes have resolved 2. Diabetes mellitus type 1. Patient is known to be a brittle diabetic with fluctuating blood sugars 3. Recent hospitalization for pneumonia. Chest x-ray completed showing improvement 4. History of seizures. Patient was evaluated by neurology services and medications adjusted during previous day 5. History of stroke 6. Essential hypertension 7. History of hyperlipidemia. Patient obtained on statin 8. History of COPD no exacerbation at this time 9. History of coronary artery disease 10. History of peripheral vascular disease with previous history of multiple toe amputations 11. Iron deficiency anemia DVT prophylaxis Lovenox. GI prophylaxis Pepcid PT OT consulted for possible ECF placement
[2020-03-17 17:07] LABS: Glucose,Whole Blood 150 mg/dL (75-99)
[2020-03-17] MEDS: HYDROcodone/APAP 10-325MG 1 EACH TAB PO PRN (17:15)
[2020-03-17 20:39] LABS: Glucose,Whole Blood 432 mg/dL (75-99)
[2020-03-17] MEDS: INSULIN DETEMIR (LEVEMIR) 100 UNIT/ML SYR SQ SCH (21:29)
[2020-03-17] MEDS: DEXTROSE 5%-0.45% NACL 1,000 ML IV SCH (21:29)
[2020-03-18] MEDS: HYDROcodone/APAP 10-325MG 1 EACH TAB PO PRN ×3 (00:39→22:05)
[2020-03-18 00:52] LABS: Glucose,Whole Blood 134 mg/dL (75-99)
[2020-03-18 04:25] LABS: Glucose,Whole Blood 60 mg/dL (75-99)
[2020-03-18 04:47] LABS: Glucose,Whole Blood 47 mg/dL (75-99)
[2020-03-18 05:00] LABS: Glucose,Whole Blood 59 mg/dL (75-99)
[2020-03-18 05:18] LABS: Glucose,Whole Blood 85 mg/dL (75-99)
[2020-03-18 05:50] LABS: Anisocytosis Slight; Basophils % (A) 1 %; Eosinophils % (A) 2 %; HCT 32.7 % (34.0-46.0); HGB 10.3 gm/dL (11.4-16.0); Hypochromasia Slight; Lymphocytes # (A) 1.7 k/uL (1.0-4.8); Lymphocytes % (A) 58 %; MCH 30.3 pg (25.0-35.0); MCHC 31.5 g/dL (31.0-37.0); MCV 96.2 fL (80.0-100.0); Mean Platelet Volume 7.5; Monocytes # (A) 0.4 k/uL (0-1.0); Monocytes % (A) 12 %; Neutrophils % (A) 24 %; Platelet Count 245 k/uL (150-450); RDW 16.3 % (11.5-15.5); WBC 2.9 k/uL (3.8-10.6)
[2020-03-18 05:53] LABS: Neutrophils # (A) 0.7 k/uL (1.3-7.7)
[2020-03-18 07:06] LABS: Glucose,Whole Blood 112 mg/dL (75-99)
[2020-03-18] MEDS: INSULIN ASPART (NovoLOG) 100 UNIT/ML VIAL SQ SCH ×4 (07:54→19:31)
[2020-03-18] MEDS: FAMOTIDINE 20 MG TAB PO SCH (08:26)
[2020-03-18] MEDS: ATORVASTATIN 20 MG TAB PO SCH (08:26)
[2020-03-18] MEDS: FERROUS SULFATE 325 MG TAB PO SCH (08:26)
[2020-03-18] MEDS: ASCORBIC ACID 500 MG TAB PO SCH (08:26)
[2020-03-18] MEDS: ASPIRIN 81 MG PO SCH (08:26)
[2020-03-18] MEDS: CALCIUM CARB-VIT D 500MG-200UN 1 EACH TAB PO SCH ×2 (08:26→17:20)
[2020-03-18] MEDS: DULoxetine HCL 60 MG CAPSULE.DR PO SCH (08:26)
[2020-03-18] MEDS: LACOSAMIDE 50 MG TABLET PO SCH ×2 (08:26→20:54)
[2020-03-18] MEDS: CLOPIDOGREL 75 MG TAB PO SCH (08:26)
[2020-03-18] MEDS: LOSARTAN 50 MG TAB PO SCH (08:26)
[2020-03-18] MEDS: DIVALPROEX 250 MG TABLET.DR PO SCH ×3 (08:27→20:54)
[2020-03-18] MEDS: METOCLOPRAMIDE 10 MG TAB PO SCH ×3 (08:27→17:20)
[2020-03-18] MEDS: ENOXAPARIN 40 MG/0.4 ML SYRINGE SQ SCH (08:27)
[2020-03-18 10:37] LABS: African American GFR (CKD) 47.5 (60.0-200.0); Albumin 3.2 g/dL (3.80-4.90); Albumin/Globulin Ratio 1.1 (1.60-3.17); Anion Gap 12.7 mmol/L (4.00-12.00); BUN/Creat Ratio 22.14 Ratio (12.00-20.00); Calcium 9.2 mg/dL (8.7-10.3); Carbon Dioxide 24.3 mmol/L (21.6-31.8); Globulin 2.9 g/dL (1.6-3.3); Potassium 4.9 mmol/L (3.5-5.5); Total Bilirubin 0.2 mg/dL (0.3-1.2); Total Protein 6.1 g/dL (6.2-8.2)
[2020-03-18 11:49] LABS: Glucose,Whole Blood 164 mg/dL (75-99)
--- NOTE | 2020-03-18 13:50 | CDI ---
Documentation Clarification Form Date: 03/18/2020 01:15:57 PM From: Amy Mark RN, CCDS Admit Date: 03/16/2020 01:42:00 PM Patient Name: Melva Jackson Visit Number: [id number] Discharge Date: ATTENTION: The Clinical Documentation Specialists (CDI) and [facility] Coding Staff appreciate your assistance in clarifying documentation. Please respond to the clarification below the line at the bottom and electronically sign. The CDI & [facility] Coding staff will review the response and follow-up if needed. Please note: Queries are made part of the Legal Health Record. If you have any questions, please contact the author of this message via ITS. Dr. Sherlyn Chen Altered Mental Status was documented in the ED assessment, H/P and subsequent progress notes. Please provide further specificity for the altered mental status. History/Risk Factors: Hypertension, Diabetes mellitus type 1, Seizures, COPD, Clinical Indicators:59-year-old female was brought to ED on 03/14 by EMS after being found unresponsive at home. Accu-Check by EMS was 69. She was given 1 amp of D50 and slowly regaining her normal mentation. 03/14 Labs: HGB 8.6, HCT 27.8 BUN 25, CR 1.05 03/14 Vital signs 107/97 80 18 98.7 03/16 07:00: Nursing neurological assessment: arousable to name, Facial Expression alert/appropriate, Verbal response Confused. Glucose 92 CXR: no active cardiopulmonary disease Treatment: Hypoglycemia protocol, BS AC/HS with coverage Neurological Assessment Q4 hrs with Novolog Levemir 10 SQ HS In your professional opinion, please clarify the etiology of the Altered Mental Status, if known. Metabolic Encephalopathy due to hypoglycemia Other condition (please specify) Unable to determine (Last Revision: August 2017) Metabolic encephalopathy related to hypoglycemia MTDD
[2020-03-18 17:29] LABS: Glucose,Whole Blood 332 mg/dL (75-99)
--- NOTE | 2020-03-18 18:41 | P.PN ---
Subjective Progress Note Date: 03/18/20 Melva Jackson, is a 59-year-old female patient well-known to my services. Patient was recently discharged she was admitted to the hospital for DKA and pneumonia. Patient has underlying history of diabetes mellitus type 1 which is a brittle diabetic. Lantus was decreased upon discharge. Additional medical history includes stroke and seizures. She was discharged home with her sister. According to ER report patient was found to have a low blood sugar with altered mental status changes. Blood sugar was corrected and alt mental status changes recovered. There is questionable compliance with diet. Consult placed for possible ECF placement on discharge. Chest x-ray was completed showing no ac tive cardiopulmonary disease. There is almost complete clearing of the right side patchy pulmonary infiltrate compared to old exam. We'll continue to monitor blood sugar closely and make adjustments to home medication . On 03/16/2020 patient was seen and examined on the medical floor she is alert and oriented 3 in no distress there is no fever or chills no headache or dizziness no chest pain no shortness of breath no cough no nausea or vomiting no abdominal pain no diarrhea no blood in the stools no burning with urination no frequency or urgency and no hematuria glucose levels are much better controlled today she is receiving Levemir 10 units at bedtime and sliding scale before meals On 03/17/2020 patient was seen and examined on the medical floor she is alert and oriented 3 in no distress there is no fever or chills no headache or dizziness no chest pain no shortness of breath no cough no nausea or vomiting no abdominal pain no diarrhea no blood in the stools no burning with urination no frequency or urgency and no hematuria. Patient to glucose level is still fluctuating she was 88 before breakfast this morning no short-acting insulin was given patient was given breakfast her glucose level was 464 before lunch she is being given 8 units of NovoLog before lunch will continue to monitor and adjust insulin, possible transfer to rehab tomorrow. On 03/18/2020 patient was seen and examined on the medical floor she is alert and oriented in no distress, glucose levels are better controlled however this morning patient had another episode of hypoglycemia, at this time will decrease Levemir dose to 8 units daily and continue was NovoLog before meals, and give a bedtime snack, but no short-acting insulin at bedtime Objective - Vital Signs Vital signs: Vital Signs Temp 97.8 F 03/18/20 12:36 Pulse 87 03/18/20 12:36 Resp 17 03/18/20 12:36 BP 116/70 03/18/20 12:36 Pulse Ox 99 03/18/20 12:36 Intake & Output 03/17/20 03/18/20 03/18/20 18:59 06:59 18:59 Intake Total 400 380 Balance 400 380 Intake: Oral 400 380 Other: Voiding Method Bedpan Bedpan Bedpan Diaper Diaper Diaper Incontinent Incontinent Incontinent # Voids 5 1 4 # Bowel Movements 1 - Exam Head normocephalic and atraumatic Neck supple no JVD no goiter Lungs clear to auscultation bilaterally no wheezing or crackles Heart regular rate and rhythm S1-S2, no rub or gallop Abdomen is soft nontender nondistended positive bowel sounds no hep atosplenomegaly Extremities no edema no cyanosis or clubbing Neuro alert and orientated to 3 - Labs CBC & Chem 7: 03/18/20 04:47 03/18/20 04:47 Labs: Abnormal Lab Results - Last 24 Hours (Table) 03/17/20 03/18/20 03/18/20 Range/Units 20:38 00:50 04:24 WBC (3.8-10.6) k/uL RBC (3.80-5.40) m/uL Hgb (11.4-16.0) gm/dL Hct (34.0-46.0) % RDW (11.5-15.5) % Neutrophils # (1.3-7.7) k/uL Anion Gap (4.00-12.00) mmol/L BUN (9.0-27.0) mg/dL Est GFR (CKD-EPI)AfAm (60.0-200.0) Est GFR (CKD-EPI)NonAf (60.0-200.0) BUN/Creatinine Ratio (12.00-20.00) Ratio Glucose (70-110) mg/dL POC Glucose (mg/dL) 432 H 134 H 60 L (75-99) mg/dL Total Bilirubin (0.3-1.2) mg/dL AST (13-35) U/L ALT (8-44) U/L Alkaline Phosphatase (41-126) U/L Total Protein (6.2-8.2) g/dL Albumin (3.80-4.90) g/dL Albumin/Globulin Ratio (1.60-3.17) g/dL 03/18/20 03/18/20 03/18/20 Range/Units 04:47 04:47 04:47 WBC 2.9 L (3.8-10.6) k/uL RBC 3.40 L (3.80-5.40) m/uL Hgb 10.3 L (11.4-16.0) gm/dL Hct 32.7 L (34.0-46.0) % RDW 16.3 H (11.5-15.5) % Neutrophils # 0.7 L (1.3-7.7) k/uL Anion Gap 12.70 H (4.00-12.00) mmol/L BUN 31.0 H (9.0-27.0) mg/dL Est GFR (CKD-EPI)AfAm 47.5 L (60.0-200.0) Est GFR (CKD-EPI)NonAf 41.0 L (60.0-200.0) BUN/Creatinine Ratio 22.14 H (12.00-20.00) Ratio Glucose 44 L* (70-110) mg/dL POC Glucose (mg/dL) 47 L (75-99) mg/dL Total Bilirubin 0.2 L (0.3-1.2) mg/dL AST 596 H (13-35) U/L ALT 296 H (8-44) U/L Alkaline Phosphatase 333 H (41-126) U/L Total Protein 6.1 L (6.2-8.2) g/dL Albumin 3.20 L (3.80-4.90) g/dL Albumin/Globulin Ratio 1.10 L (1.60-3.17) g/dL 03/18/20 03/18/20 03/18/20 Range/Units 04:59 07:03 11:28 WBC (3.8-10.6) k/uL RBC (3.80-5.40) m/uL Hgb (11.4-16.0) gm/dL Hct (34.0-46.0) % RDW (11.5-15.5) % Neutrophils # (1.3-7.7) k/uL Anion Gap (4.00-12.00) mmol/L BUN (9.0-27.0) mg/dL Est GFR (CKD-EPI)AfAm (60.0-200.0) Est GFR (CKD-EPI)NonAf (60.0-200.0) BUN/Creatinine Ratio (12.00-20.00) Ratio Glucose (70-110) mg/dL POC Glucose (mg/dL) 59 L 112 H 164 H (75-99) mg/dL Total Bilirubin (0.3-1.2) mg/dL AST (13-35) U/L ALT (8-44) U/L Alkaline Phosphatase (41-126) U/L Total Protein (6.2-8.2) g/dL Albumin (3.80-4.90) g/dL Albumin/Globulin Ratio (1.60-3.17) g/dL 03/18/20 Range/Units 17:24 WBC (3.8-10.6) k/uL RBC (3.80-5.40) m/uL Hgb (11.4-16.0) gm/dL Hct (34.0-46.0) % RDW (11.5-15.5) % Neutrophils # (1.3-7.7) k/uL Anion Gap (4.00-12.00) mmol/L BUN (9.0-27.0) mg/dL Est GFR (CKD-EPI)AfAm (60.0-200.0) Est GFR (CKD-EPI)NonAf (60.0-200.0) BUN/Creatinine Ratio (12.00-20.00) Ratio Glucose (70-110) mg/dL POC Glucose (mg/dL) 332 H (75-99) mg/dL Total Bilirubin (0.3-1.2) mg/dL AST (13-35) U/L ALT (8-44) U/L Alkaline Phosphatase (41-126) U/L Total Protein (6.2-8.2) g/dL Albumin (3.80-4.90) g/dL Albumin/Globulin Ratio (1.60-3.17) g/dL Assessment and Plan Plan: 1. Altered mental status is with hypoglycemia. Hypoglycemia was corrected altered mental status changes have resolved 2. Diabetes mellitus type 1. Patient is known to be a brittle diabetic with fluctuating blood sugars 3. Recent hospitalization for pneumonia. Chest x-ray completed showing improvement 4. History of seizures. Patient was evaluated by neurology services and medications adjusted during previous day 5. History of stroke 6. Essential hypertension 7. History of hyperlipidemia. Patient obtained on statin 8. History of COPD no exacerbation at this time 9. History of coronary artery disease 10. History of peripheral vascular disease with previous history of multiple toe amputations 11. Iron deficiency anemia DVT prophylaxis Lovenox. GI prophylaxis Pepcid PT OT consulted for possible ECF placement
[2020-03-18] MEDS: DEXTROSE 5%-0.45% NACL 1,000 ML IV SCH (20:58)
[2020-03-18] MEDS ORDERED: INSULIN DETEMIR (LEVEMIR) 100 UNIT/ML SYR SQ SCH (21:00)
[2020-03-18 21:09] LABS: Glucose,Whole Blood 217 mg/dL (75-99)
[2020-03-18] MEDS: ALPRAZolam 1 MG TAB PO PRN (22:05)
[2020-03-19 04:04] LABS: Glucose,Whole Blood >600 mg/dL (75-99)
[2020-03-19 04:04] LABS: Glucose,Whole Blood >600 mg/dL (75-99)
[2020-03-19 04:04] LABS: Glucose,Whole Blood >600 mg/dL (75-99)
[2020-03-19 04:33] LABS: Anisocytosis Slight; Basophils % (A) 1 %; Eosinophils % (A) 0 %; HGB 9.9 gm/dL (11.4-16.0); Hypochromasia Marked; Lymphocytes # (A) 1.7 k/uL (1.0-4.8); Lymphocytes % (A) 51 %; MCH 30.6 pg (25.0-35.0); MCHC 29.9 g/dL (31.0-37.0); Macrocytosis Moderate; Mean Platelet Volume 7.8; Monocytes # (A) 0.3 k/uL (0-1.0); Monocytes % (A) 9 %; Neutrophils # (A) 1.2 k/uL (1.3-7.7); Neutrophils % (A) 36 %; Platelet Count 234 k/uL (150-450); RBC 3.22 m/uL (3.80-5.40); RDW 16.2 % (11.5-15.5); WBC 3.3 k/uL (3.8-10.6)
[2020-03-19 04:44] LABS: ALT 239 U/L (4-34); AST 171 U/L (14-36); African American GFR (CKD) 56 (>60 ml/min/1.73 sqM); Albumin 3.1 g/dL (3.5-5.0); Albumin/Globulin Ratio 0.9; Alkaline Phosphatase 318 U/L (38-126); Anion Gap 7 mmol/L; Blood Urea Nitrogen 32 mg/dL (7-17); Calcium 8.7 mg/dL (8.4-10.2); Carbon Dioxide 25 mmol/L (22-30); Chloride 99 mmol/L (98-107); Globulin 3.3 g/dL; Non-African American GFR(CKD) 48 (>60 ml/min/1.73 sqM); Sodium 131 mmol/L (137-145); Total Bilirubin 0.5 mg/dL (0.2-1.3); Total Protein 6.4 g/dL (6.3-8.2)
[2020-03-19] MEDS: HYDROcodone/APAP 10-325MG 1 EACH TAB PO PRN ×2 (04:48→19:17)
[2020-03-19] MEDS: ALPRAZolam 1 MG TAB PO PRN (04:48)
[2020-03-19 05:05] LABS: Glucose 659 mg/dL (74-99); Potassium 6.3 mmol/L (3.5-5.1)
[2020-03-19] MEDS ORDERED: INSULIN ASPART (NovoLOG) 100 UNIT/ML VIAL SQ ONE (05:07)
[2020-03-19] MEDS ORDERED: SODIUM POLYSTYRENE SULFONATE 15 GM/60 ML BOTTLE PO ONE (05:08)
[2020-03-19 05:12] LABS: MCV 102.3 fL (80.0-100.0)
[2020-03-19 07:01] LABS: Glucose,Whole Blood 546 mg/dL (75-99)
[2020-03-19 07:01] LABS: Glucose,Whole Blood 588 mg/dL (75-99)
[2020-03-19 07:57] LABS: Glucose,Whole Blood 443 mg/dL (75-99)
[2020-03-19] MEDS: DULoxetine HCL 60 MG CAPSULE.DR PO SCH (08:24)
[2020-03-19] MEDS: INSULIN ASPART (NovoLOG) 100 UNIT/ML VIAL SQ SCH ×3 (08:24→16:55)
[2020-03-19] MEDS: ATORVASTATIN 20 MG TAB PO SCH (08:25)
[2020-03-19] MEDS: LOSARTAN 50 MG TAB PO SCH (08:25)
[2020-03-19] MEDS: CALCIUM CARB-VIT D 500MG-200UN 1 EACH TAB PO SCH ×2 (08:25→17:26)
[2020-03-19] MEDS: ASCORBIC ACID 500 MG TAB PO SCH (08:25)
[2020-03-19] MEDS: LACOSAMIDE 50 MG TABLET PO SCH ×2 (08:25→20:52)
[2020-03-19] MEDS: ASPIRIN 81 MG PO SCH (08:25)
[2020-03-19] MEDS: FAMOTIDINE 20 MG TAB PO SCH (08:25)
[2020-03-19] MEDS: CLOPIDOGREL 75 MG TAB PO SCH (08:25)
[2020-03-19] MEDS: FERROUS SULFATE 325 MG TAB PO SCH (08:25)
[2020-03-19] MEDS: ENOXAPARIN 40 MG/0.4 ML SYRINGE SQ SCH (08:26)
[2020-03-19] MEDS: METOCLOPRAMIDE 10 MG TAB PO SCH ×3 (08:26→17:26)
[2020-03-19] MEDS: DIVALPROEX 250 MG TABLET.DR PO SCH ×3 (08:26→21:31)
[2020-03-19 11:14] LABS: Glucose,Whole Blood 365 mg/dL (75-99)
[2020-03-19 17:10] LABS: Glucose,Whole Blood 54 mg/dL (75-99)
[2020-03-19 17:10] LABS: Glucose,Whole Blood 49 mg/dL (75-99)
[2020-03-19 17:23] LABS: Glucose,Whole Blood 78 mg/dL (75-99)
--- NOTE | 2020-03-19 18:31 | P.PN ---
Subjective Progress Note Date: 03/19/20 Melva Jackson, is a 59-year-old female patient well-known to my services. Patient was recently discharged she was admitted to the hospital for DKA and pneumonia. Patient has underlying history of diabetes mellitus type 1 which is a brittle diabetic. Lantus was decreased upon discharge. Additional medical history includes stroke and seizures. She was discharged home with her sister. According to ER report patient was found to have a low blood sugar with altered mental status changes. Blood sugar was corrected and alt mental status changes recovered. There is questionable compliance with diet. Consult placed for possible ECF placement on discharge. Chest x-ray was completed showing no ac tive cardiopulmonary disease. There is almost complete clearing of the right side patchy pulmonary infiltrate compared to old exam. We'll continue to monitor blood sugar closely and make adjustments to home medication . On 03/16/2020 patient was seen and examined on the medical floor she is alert and oriented 3 in no distress there is no fever or chills no headache or dizziness no chest pain no shortness of breath no cough no nausea or vomiting no abdominal pain no diarrhea no blood in the stools no burning with urination no frequency or urgency and no hematuria glucose levels are much better controlled today she is receiving Levemir 10 units at bedtime and sliding scale before meals On 03/17/2020 patient was seen and examined on the medical floor she is alert and oriented 3 in no distress there is no fever or chills no headache or dizziness no chest pain no shortness of breath no cough no nausea or vomiting no abdominal pain no diarrhea no blood in the stools no burning with urination no frequency or urgency and no hematuria. Patient to glucose level is still fluctuating she was 88 before breakfast this morning no short-acting insulin was given patient was given breakfast her glucose level was 464 before lunch she is being given 8 units of NovoLog before lunch will continue to monitor and adjust insulin, possible transfer to rehab tomorrow. On 03/18/2020 patient was seen and examined on the medical floor she is alert and oriented in no distress, glucose levels are better controlled however this morning patient had another episode of hypoglycemia, at this time will decrease Levemir dose to 8 units daily and continue was NovoLog before meals, and give a bedtime snack, but no short-acting insulin at bedtime. On 03/19/2020 patient was seen and examined on the medical floor she is alert and oriented 3 in no apparent distress she had significantly elevated glucose level of 600 this morning, otherwise she denies any complaints at this point will increase Levemir again to 10 units at bedtime, avoid NovoLog before bedtime, and give NovoLog only before meals will continue to monitor glucose level and adjust insulin accordingly Objective - Vital Signs Vital signs: Vital Signs Temp 97.5 F L 03/19/20 11:00 Pulse 81 03/19/20 11:00 Resp 16 03/19/20 11:00 BP 96/54 03/19/20 11:00 Pulse Ox 97 03/19/20 11:00 Intake & Output 03/18/20 03/19/20 03/19/20 18:59 06:59 18:59 Intake Total 490 400 Balance 490 400 Weight 58.967 kg Intake: Oral 490 400 Other: Voiding Method Bedpan Bedside Commode Bedside Commode Diaper Diaper Diaper Incontinent Incontinent Incontinent # Voids 4 2 2 - Exam Head normocephalic and atraumatic Neck supple no JVD no goiter Lungs clear to auscultation bilaterally no wheezing or crackles Heart regular rate and rhythm S1-S2, no rub or gallop Abdomen is soft nontender nondistended positive bowel sounds no hepatosplenomegaly Extremities no edema no cyanosis or clubbing Neuro alert and orientated to 3 - Labs CBC & Chem 7: 03/19/20 04:19 03/19/20 04:19 Labs: Abnormal Lab Results - Last 24 Hours (Table) 03/18/20 03/18/20 03/19/20 Range/Units 17:24 21:05 03:59 WBC (3.8-10.6) k/uL RBC (3.80-5.40) m/uL Hgb (11.4-16.0) gm/dL Hct (34.0-46.0) % MCV (80.0-100.0) fL MCHC (31.0-37.0) g/dL RDW (11.5-15.5) % Neutrophils # (1.3-7.7) k/uL Sodium (137-145) mmol/L Potassium (3.5-5.1) mmol/L BUN (7-17) mg/dL Creatinine (0.52-1.04) mg/dL Glucose (74-99) mg/dL POC Glucose (mg/dL) 332 H 217 H >600 H (75-99) mg/dL AST (14-36) U/L ALT (4-34) U/L Alkaline Phosphatase (38-126) U/L Albumin (3.5-5.0) g/dL 03/19/20 03/19/20 03/19/20 Range/Units 04:00 04:03 04:19 WBC 3.3 L (3.8-10.6) k/uL RBC 3.22 L (3.80-5.40) m/uL Hgb 9.9 L (11.4-16.0) gm/dL Hct 33.0 L (34.0-46.0) % MCV 102.3 H D (80.0-100.0) fL MCHC 29.9 L (31.0-37.0) g/dL RDW 16.2 H (11.5-15.5) % Neutrophils # 1.2 L (1.3-7.7) k/uL Sodium (137-145) mmol/L Potassium (3.5-5.1) mmol/L BUN (7-17) mg/dL Creatinine (0.52-1.04) mg/dL Glucose (74-99) mg/dL POC Glucose (mg/dL) >600 H >600 H (75-99) mg/dL AST (14-36) U/L ALT (4-34) U/L Alkaline Phosphatase (38-126) U/L Albumin (3.5-5.0) g/dL 03/19/20 03/19/20 03/19/20 Range/Units 04:19 06:48 06:51 WBC (3.8-10.6) k/uL RBC (3.80-5.40) m/uL Hgb (11.4-16.0) gm/dL Hct (34.0-46.0) % MCV (80.0-100.0) fL MCHC (31.0-37.0) g/dL RDW (11.5-15.5) % Neutrophils # (1.3-7.7) k/uL Sodium 131 L (137-145) mmol/L Potassium 6.3 H* (3.5-5.1) mmol/L BUN 32 H (7-17) mg/dL Creatinine 1.23 H (0.52-1.04) mg/dL Glucose 659 H* (74-99) mg/dL POC Glucose (mg/dL) 588 H 546 H (75-99) mg/dL AST 171 H (14-36) U/L ALT 239 H (4-34) U/L Alkaline Phosphatase 318 H (38-126) U/L Albumin 3.1 L (3.5-5.0) g/dL 03/19/20 03/19/20 Range/Units 07:56 11:04 WBC (3.8-10.6) k/uL RBC (3.80-5.40) m/uL Hgb (11.4-16.0) gm/dL Hct (34.0-46.0) % MCV (80.0-100.0) fL MCHC (31.0-37.0) g/dL RDW (11.5-15.5) % Neutrophils # (1.3-7.7) k/uL Sodium (137-145) mmol/L Potassium (3.5-5.1) mmol/L BUN (7-17) mg/dL Creatinine (0.52-1.04) mg/dL Glucose (74-99) mg/dL POC Glucose (mg/dL) 443 H 365 H (75-99) mg/dL AST (14-36) U/L ALT (4-34) U/L Alkaline Phosphatase (38-126) U/L Albumin (3.5-5.0) g/dL Assessment and Plan Plan: 1. Altered mental status is with hypoglycemia. Hypoglycemia was corrected altered mental status changes have resolved 2. Diabetes mellitus type 1. Patient is known to be a brittle diabetic with fluctuating blood sugars 3. Recent hospitalization for pneumonia. Chest x-ray completed showing improvement 4. History of seizures. Patient was evaluated by neurology services and medications adjusted during previous day 5. History of stroke 6. Essential hypertension 7. History of hyperlipidemia. Patient obtained on statin 8. History of COPD no exacerbation at this time 9. History of coronary artery disease 10. History of peripheral vascular disease with previous history of multiple toe amputations 11. Iron deficiency anemia DVT prophylaxis Lovenox. GI prophylaxis Pepcid PT OT consulted for possible ECF placement
[2020-03-19 20:42] LABS: Glucose,Whole Blood 480 mg/dL (75-99)
[2020-03-19] MEDS: INSULIN DETEMIR (LEVEMIR) 100 UNIT/ML SYR SQ SCH (20:52)
[2020-03-19] MEDS: DEXTROSE 5%-0.45% NACL 1,000 ML IV SCH (20:55)
[2020-03-20] MEDS: ALPRAZolam 1 MG TAB PO PRN ×3 (00:20→22:08)
[2020-03-20 02:14] LABS: Glucose,Whole Blood 524 mg/dL (75-99)
[2020-03-20 02:14] LABS: Glucose,Whole Blood 513 mg/dL (75-99)
[2020-03-20] MEDS: HYDROcodone/APAP 10-325MG 1 EACH TAB PO PRN ×2 (04:41→20:18)
[2020-03-20 07:12] LABS: Glucose,Whole Blood 483 mg/dL (75-99)
[2020-03-20] MEDS: INSULIN ASPART (NovoLOG) 100 UNIT/ML VIAL SQ SCH ×3 (08:27→18:31)
[2020-03-20] MEDS: LOSARTAN 50 MG TAB PO SCH (08:28)
[2020-03-20] MEDS: LACOSAMIDE 50 MG TABLET PO SCH ×2 (08:28→20:17)
[2020-03-20] MEDS: ASCORBIC ACID 500 MG TAB PO SCH (08:28)
[2020-03-20] MEDS: DULoxetine HCL 60 MG CAPSULE.DR PO SCH (08:28)
[2020-03-20] MEDS: FERROUS SULFATE 325 MG TAB PO SCH (08:29)
[2020-03-20] MEDS: CALCIUM CARB-VIT D 500MG-200UN 1 EACH TAB PO SCH ×2 (08:29→18:25)
[2020-03-20] MEDS: ATORVASTATIN 20 MG TAB PO SCH (08:29)
[2020-03-20] MEDS: FAMOTIDINE 20 MG TAB PO SCH (08:29)
[2020-03-20] MEDS: DIVALPROEX 250 MG TABLET.DR PO SCH ×3 (08:29→22:02)
[2020-03-20] MEDS: ASPIRIN 81 MG PO SCH (08:29)
[2020-03-20] MEDS: CLOPIDOGREL 75 MG TAB PO SCH (08:29)
[2020-03-20] MEDS: METOCLOPRAMIDE 10 MG TAB PO SCH ×3 (08:29→18:25)
[2020-03-20] MEDS: ENOXAPARIN 40 MG/0.4 ML SYRINGE SQ SCH (08:29)
[2020-03-20 09:06] LABS: Glucose,Whole Blood 511 mg/dL (75-99)
[2020-03-20 10:14] LABS: Anisocytosis Slight; Basophils % (A) 0 %; Eosinophils % (A) 0 %; HCT 28.3 % (34.0-46.0); HGB 8.6 gm/dL (11.4-16.0); Hypochromasia Moderate; Lymphocytes # (A) 1.2 k/uL (1.0-4.8); Lymphocytes % (A) 46 %; MCH 30.4 pg (25.0-35.0); MCHC 30.5 g/dL (31.0-37.0); MCV 99.5 fL (80.0-100.0); Macrocytosis Slight; Mean Platelet Volume 7.6; Monocytes # (A) 0.3 k/uL (0-1.0); Monocytes % (A) 10 %; Neutrophils # (A) 1.1 k/uL (1.3-7.7); Neutrophils % (A) 41 %; Platelet Count 220 k/uL (150-450); RBC 2.85 m/uL (3.80-5.40); RDW 16.2 % (11.5-15.5); WBC 2.6 k/uL (3.8-10.6)
[2020-03-20 10:21] LABS: Glucose,Whole Blood 394 mg/dL (75-99)
[2020-03-20 10:28] LABS: ALT 122 U/L (4-34); AST 46 U/L (14-36); African American GFR (CKD) 57 (>60 ml/min/1.73 sqM); Albumin 2.9 g/dL (3.5-5.0); Albumin/Globulin Ratio 0.9; Alkaline Phosphatase 255 U/L (38-126); Anion Gap 7 mmol/L; Blood Urea Nitrogen 27 mg/dL (7-17); Calcium 8.8 mg/dL (8.4-10.2); Carbon Dioxide 30 mmol/L (22-30); Chloride 99 mmol/L (98-107); Globulin 3.1 g/dL; Glucose 395 mg/dL (74-99); Non-African American GFR(CKD) 50 (>60 ml/min/1.73 sqM); Potassium 4.6 mmol/L (3.5-5.1); Sodium 136 mmol/L (137-145); Total Bilirubin 0.3 mg/dL (0.2-1.3)
[2020-03-20 11:16] LABS: Glucose,Whole Blood 266 mg/dL (75-99)
--- NOTE | 2020-03-20 14:01 | P.PN ---
Subjective Progress Note Date: 03/20/20 Melva Jackson, is a 59-year-old female patient well-known to my services. Patient was recently discharged she was admitted to the hospital for DKA and pneumonia. Patient has underlying history of diabetes mellitus type 1 which is a brittle diabetic. Lantus was decreased upon discharge. Additional medical history includes stroke and seizures. She was discharged home with her sister. According to ER report patient was found to have a low blood sugar with altered mental status changes. Blood sugar was corrected and alt mental status changes recovered. There is questionable compliance with diet. Consult placed for possible ECF placement on discharge. Chest x-ray was completed showing no ac tive cardiopulmonary disease. There is almost complete clearing of the right side patchy pulmonary infiltrate compared to old exam. We'll continue to monitor blood sugar closely and make adjustments to home medication . On 03/16/2020 patient was seen and examined on the medical floor she is alert and oriented 3 in no distress there is no fever or chills no headache or dizziness no chest pain no shortness of breath no cough no nausea or vomiting no abdominal pain no diarrhea no blood in the stools no burning with urination no frequency or urgency and no hematuria glucose levels are much better controlled today she is receiving Levemir 10 units at bedtime and sliding scale before meals On 03/17/2020 patient was seen and examined on the medical floor she is alert and oriented 3 in no distress there is no fever or chills no headache or dizziness no chest pain no shortness of breath no cough no nausea or vomiting no abdominal pain no diarrhea no blood in the stools no burning with urination no frequency or urgency and no hematuria. Patient to glucose level is still fluctuating she was 88 before breakfast this morning no short-acting insulin was given patient was given breakfast her glucose level was 464 before lunch she is being given 8 units of NovoLog before lunch will continue to monitor and adjust insulin, possible transfer to rehab tomorrow. On 03/18/2020 patient was seen and examined on the medical floor she is alert and oriented in no distress, glucose levels are better controlled however this morning patient had another episode of hypoglycemia, at this time will decrease Levemir dose to 8 units daily and continue was NovoLog before meals, and give a bedtime snack, but no short-acting insulin at bedtime. On 03/19/2020 patient was seen and examined on the medical floor she is alert and oriented 3 in no apparent distress she had significantly elevated glucose level of 600 this morning, otherwise she denies any complaints at this point will increase Levemir again to 10 units at bedtime, avoid NovoLog before bedtime, and give NovoLog only before meals will continue to monitor glucose level and adjust insulin accordingly On 03/20/2020 Patient is more sleepy today. Blood sugar in the 400's this AM. corrected per scale. Will continue to monitor for the next 24-48 hours. Denies any specific complaints Objective - Vital Signs Vital signs: Vital Signs Temp 97.6 F 03/20/20 11:13 Pulse 81 03/20/20 11:13 Resp 16 03/20/20 11:13 BP 112/72 03/20/20 11:13 Pulse Ox 96 03/20/20 11:13 Intake & Output 03/19/20 03/20/20 03/20/20 18:59 06:59 18:59 Intake Total 400 980 Balance 400 980 Weight 58.967 kg Intake: Oral 400 980 Other: Voiding Method Bedside Commode Bedside Commode Bedside Commode Diaper Diaper Diaper Incontinent Incontinent Incontinent # Voids 2 1 1 # Bowel Movements 1 - Exam Head normocephalic and atraumatic Neck supple no JVD no goiter Lungs clear to auscultation bilaterally no wheezing or crackles Heart regular rate and rhythm S1-S2, no rub or gallop Abdomen is soft nontender nondistended positive bowel sounds no hepatosplenomegaly Extremities no edema no cyanosis or clubbing Neuro alert and orientated to 3. sleepy - Labs CBC & Chem 7: 03/20/20 09:50 03/20/20 09:50 Labs: Abnormal Lab Results - Last 24 Hours (Table) 03/19/20 03/19/20 03/19/20 Range/Units 16:54 17:09 20:37 WBC (3.8-10.6) k/uL RBC (3.80-5.40) m/uL Hgb (11.4-16.0) gm/dL Hct (34.0-46.0) % MCHC (31.0-37.0) g/dL RDW (11.5-15.5) % Neutrophils # (1.3-7.7) k/uL Sodium (137-145) mmol/L BUN (7-17) mg/dL Creatinine (0.52-1.04) mg/dL Glucose (74-99) mg/dL POC Glucose (mg/dL) 54 L 49 L 480 H (75-99) mg/dL AST (14-36) U/L ALT (4-34) U/L Alkaline Phosphatase (38-126) U/L Total Protein (6.3-8.2) g/dL Albumin (3.5-5.0) g/dL 03/20/20 03/20/20 03/20/20 Range/Units 02:10 02:12 07:08 WBC (3.8-10.6) k/uL RBC (3.80-5.40) m/uL Hgb (11.4-16.0) gm/dL Hct (34.0-46.0) % MCHC (31.0-37.0) g/dL RDW (11.5-15.5) % Neutrophils # (1.3-7.7) k/uL Sodium (137-145) mmol/L BUN (7-17) mg/dL Creatinine (0.52-1.04) mg/dL Glucose (74-99) mg/dL POC Glucose (mg/dL) 513 H 524 H 483 H (75-99) mg/dL AST (14-36) U/L ALT (4-34) U/L Alkaline Phosphatase (38-126) U/L Total Protein (6.3-8.2) g/dL Albumin (3.5-5.0) g/dL 03/20/20 03/20/20 03/20/20 Range/Units 08:55 09:50 09:50 WBC 2.6 L (3.8-10.6) k/uL RBC 2.85 L (3.80-5.40) m/uL Hgb 8.6 L (11.4-16.0) gm/dL Hct 28.3 L (34.0-46.0) % MCHC 30.5 L (31.0-37.0) g/dL RDW 16.2 H (11.5-15.5) % Neutrophils # 1.1 L (1.3-7.7) k/uL Sodium 136 L (137-145) mmol/L BUN 27 H (7-17) mg/dL Creatinine 1.20 H (0.52-1.04) mg/dL Glucose 395 H (74-99) mg/dL POC Glucose (mg/dL) 511 H (75-99) mg/dL AST 46 H (14-36) U/L ALT 122 H (4-34) U/L Alkaline Phosphatase 255 H (38-126) U/L Total Protein 6.0 L (6.3-8.2) g/dL Albumin 2.9 L (3.5-5.0) g/dL 03/20/20 03/20/20 Range/Units 10:09 11:14 WBC (3.8-10.6) k/uL RBC (3.80-5.40) m/uL Hgb (11.4-16.0) gm/dL Hct (34.0-46.0) % MCHC (31.0-37.0) g/dL RDW (11.5-15.5) % Neutrophils # (1.3-7.7) k/uL Sodium (137-145) mmol/L BUN (7-17) mg/dL Creatinine (0.52-1.04) mg/dL Glucose (74-99) mg/dL POC Glucose (mg/dL) 394 H 266 H (75-99) mg/dL AST (14-36) U/L ALT (4-34) U/L Alkaline Phosphatase (38-126) U/L Total Protein (6.3-8.2) g/dL Albumin (3.5-5.0) g/dL Assessment and Plan Assessment: 1. Altered mental status with hypoglycemia. Hypoglycemia was corrected altered mental status changes have resolved 2. Diabetes mellitus type 1. Patient is known to be a brittle diabetic with fluctuating blood sugars 3. Recent hospitalization for pneumonia. Chest x-ray completed showing improvement 4. History of seizures. Patient was evaluated by neurology services and medications adjusted during previous day 5. History of stroke 6. Essential hypertension 7. History of hyperlipidemia. Patient obtained on statin 8. History of COPD no exacerbation at this time 9. History of coronary artery disease 10. History of peripheral vascular disease with previous history of multiple toe amputations 11. Iron deficiency anemia DVT prophylaxis Lovenox. GI prophylaxis Pepcid PT OT consulted for possible ECF placement
[2020-03-20 14:51] LABS: Glucose,Whole Blood 227 mg/dL (75-99)
[2020-03-20 17:15] LABS: Glucose,Whole Blood 259 mg/dL (75-99)
[2020-03-20] MEDS: DEXTROSE 5%-0.45% NACL 1,000 ML IV SCH (20:28)
[2020-03-20] MEDS: LORazepam 2 MG/ML INJ IV PRN (20:49)
[2020-03-20 20:50] LABS: Glucose,Whole Blood 217 mg/dL (75-99)
[2020-03-20] MEDS: INSULIN DETEMIR (LEVEMIR) 100 UNIT/ML SYR SQ SCH (20:52)
[2020-03-20] MEDS ORDERED: HALOPERIDOL LACTATE 5 MG/ML 1 ML VIAL IVP PRN (22:43)
[2020-03-20] MEDS ORDERED: HALOPERIDOL LACTATE 5 MG/ML 1 ML VIAL IM PRN (22:59)
[2020-03-21 01:20] LABS: Glucose,Whole Blood 278 mg/dL (75-99)
[2020-03-21 01:32] LABS: Appearance,Urine Clear (Clear); Bilirubin,Urine Negative (Negative); Blood,Urine Negative (Negative); Color,Urine Yellow; Glucose,Urine (UA) 3+ (Negative); Ketones,Urine Negative (Negative); Leukocyte Esterase,Urine Negative (Negative); Nitrite,Urine Negative (Negative); Protein,Urine Trace (Negative); Specific Gravity,Urine 1.018 (1.001-1.035); Urobilinogen,Urine <2.0 mg/dL (<2.0)
[2020-03-21] MEDS: LORazepam 2 MG/ML INJ IV PRN (01:32)
[2020-03-21 06:19] LABS: Glucose,Whole Blood 125 mg/dL (75-99)
[2020-03-21 07:09] LABS: Glucose,Whole Blood 134 mg/dL (75-99)
[2020-03-21] MEDS: INSULIN ASPART (NovoLOG) 100 UNIT/ML VIAL SQ SCH ×3 (08:04→18:00)
[2020-03-21] MEDS ORDERED: QUEtiapine 25 MG TAB PO SCH (09:00)
[2020-03-21] MEDS: LACOSAMIDE 50 MG TABLET PO SCH (09:58)
[2020-03-21] MEDS: CLOPIDOGREL 75 MG TAB PO SCH (09:59)
[2020-03-21] MEDS: DULoxetine HCL 60 MG CAPSULE.DR PO SCH (09:59)
[2020-03-21] MEDS: LOSARTAN 50 MG TAB PO SCH (09:59)
[2020-03-21] MEDS: ASPIRIN 81 MG PO SCH (09:59)
[2020-03-21] MEDS: ATORVASTATIN 20 MG TAB PO SCH (09:59)
[2020-03-21] MEDS: ASCORBIC ACID 500 MG TAB PO SCH (09:59)
[2020-03-21] MEDS: CALCIUM CARB-VIT D 500MG-200UN 1 EACH TAB PO SCH ×2 (09:59→17:50)
[2020-03-21] MEDS: FERROUS SULFATE 325 MG TAB PO SCH (09:59)
[2020-03-21] MEDS: ENOXAPARIN 40 MG/0.4 ML SYRINGE SQ SCH (09:59)
[2020-03-21] MEDS: FAMOTIDINE 20 MG TAB PO SCH (09:59)
[2020-03-21] MEDS: DIVALPROEX 250 MG TABLET.DR PO SCH ×2 (10:00→18:09)
[2020-03-21] MEDS: METOCLOPRAMIDE 10 MG TAB PO SCH ×2 (10:00→14:22)
[2020-03-21 11:42] LABS: Glucose,Whole Blood 156 mg/dL (75-99)
--- NOTE | 2020-03-21 13:08 | P.CN ---
Psychiatric Consult - . Consult date: 03/21/20 Consult:: IDENTIFYING DATA: This patient is a 59-year-old female with significant history of IDDM, DKA, CVAs with left-sided paralysis, seizure disorder, hypothyroidism, and CAD who was admitted on 03/15/2020 with mental status changes and hypoglycemia. HISTORY OF PRESENT ILLNESS: The patient presented to the hospital on 03/14/2020 after being found unresponsive in her home. Patient was noted to have elevated blood sugar and was administered 4 units of Humalog and became responsive and diaphoretic with a blood sugar of 69. Patient was transferred to the medical floor for management of hypoglycemia and altered mental status. Patient is currently very somnolent at this time and is unarousable despite multiple attempts by this provider. Most of the history currently provided has been provided by the patient's nurse. The patient's nurse reports that the patient has been intermittently agitated often yelling and repeating words told to her. She is currently sedated after receiving Seroquel this morning. Patient has als o been noted to move around excessively and flailing her body when she is awake. Upon review of the medical chart, the patient has been noted to be alert and oriented 3 during this hospital stay. She appears to have fluctuating cognition at times with intermittent episodes of agitation. She is currently being managed with Haldol 0.5 mg IM every 8 hours when necessary last given on 03/20/2020 at 2311, Ativan 0.5 mg IV every 3 hours when necessary was administered at 1:32 AM this morning, furthermore she is also receiving her home medication of Xanax last given yesterday at 2208. Patient is also receiving Depakote 250 mg by mouth 3 times a day for seizure disorder. Patient's QTC is prolonged at 492 ms. PAST PSYCHIATRIC HISTORY: Unable to assess at this time. Patient is currently prescribed Depakote for seizure disorder. She is also receiving Cymbalta 60 mg by mouth daily, and Seroquel 25 mg by mouth twice a day PAST MEDICAL HISTORY: Asthma, Coronary Artery Disease (CAD), Chest Pain / Angina, Heart Failure, COPD, CVA/TIA, Diabetes Mellitus, Deep Vein Thrombosis (DVT), Eye Disorder, GERD/Reflux, Hyperlipidemia, Hypertension, Myocardial Infarction ([place]), Neurologic Disorder, Osteoarthritis (OA), Pneumonia, Renal Disease IDDM (brittle), DKAs, neuropathy bilateral hands/feet, retinopathy bilateral eyes, cellulitis R foot, R great toe and 2nd toe infections/amputations, current wound R foot-being seen in [facility], renal failure, anemia, CVAs with L sided paralysis, headaches started after CVAs, brain lesions, DVT R axillae, low back pain, varicosities, seizure many years ago (2001), hypothyroid, constipation, bilateral tinnitis occasionally, sinus problems.. ALLERGIES: as per EMR. CHEMICAL DEPENDENCY HISTORY: Unable to assess FAMILY PSYCHIATRIC/SUBSTANCE USE HISTORY: Unable to assess SOCIAL HISTORY: From chart review, the patient is a former smoker. She has used marijuana edibles in the past. Patient has a legal guardian, Sera Rodriguez who is her sister. Patient has a caregiver named No resides with her. Patient is wheelchair-bound due to CVA with left-sided paralysis in her upper and lower extremity. Her sister or caregiver drive her to her appointments. MENTAL STATUS EXAM: General Appearance: Patient appears to be stated age is somnolent and unarousable. Hygiene and grooming appears fair. Patient is dressed in hospital gown. Behavior: Patient is calmly lying in bed without any agitated behavior. Speech: Unable to assess as patient is sleeping. Mood/Affect: Unable to assess as patient is sleeping. Suicidality/Homicidality: Unable to assess as patient is sleeping. Perceptions: Unable to assess as patient is sleeping. Though content/process: Unable to assess as patient is sleeping. Memory and concentration: Unable to assess this patient is sleeping. Judgment and insight: Unable to assess as patient is sleeping. IMPRESSIONS: Altered mental status with hypoglycemia, corrected - as per chart review resolved Psychosis, unspecified PLAN: -Patient DOES NOT have decision making capacity at this time and is unable to reason through and communicate/appreciate the risks, benefits and alternatives to treatment. -Delirium precautions recommended with patient including - avoiding use of narcotics and [employer] sedatives, limit anticholinergic medications when possible, frequent re-orientation, minimize use of restraints, open window shades during the day and close them at night -Will order Ammonia as patient is receiving depakote and is displaying AMS. -Will monitor patient's QTc following medication adjustments. Current QTc is elevated at 492 ms. -Would recommend the following medication changes/additions: We will change Seroquel to 50 mg by mouth at bedtime so as to avoid daytime sedation. We will decrease Cymbalta to 30 mg by mouth daily to avoid over activation which may be contributing to polypharmacy and agitation as well as poor kidney function. Highly recommend limiting the use of Reglan as the medication may contribute to psychosis with frequent use due to dopaminergic properties. May continue Ativan 0.5 mg IV every 3 hours when necessary for agitation/anxiety, Haldol 0.5 mg IM every 8 hours when necessary for agitation, and Xanax 1 mg by mouth every 8 hours when necessary for anxiety. -Psychiatry will continue to follow along with the patient and reevaluate when the patient is more appropriate for psychiatric evaluation. 03/21/20 12:45
[2020-03-21 17:15] LABS: Glucose,Whole Blood 320 mg/dL (75-99)
--- NOTE | 2020-03-21 17:27 | P.CNNES ---
History of Present Illness Consult date: 03/21/20 Requesting physician: Brooklynn Barboza Reason for Consult: Altered mental status History of Present Illness: Patient is a 59-year-old female came to the hospital at 8:25 PM on 03/14/2020 because of hypoglycemia. Patient is well known to me from previous admissions to the hospital. Patient has history of diabetes, chronic stroke with left spastic hemiplegia, hypertension hyperlipidemia brought by EMS after being found unresponsive. Her blood sugar was 69. She was given 1 amp of D50 and she slowly regained her normal mentation. Patient was recently admitted to the hospital for DKA and pneumonia. 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 Patient is currently on Vimpat 100 mg twice a day, Depakote 250 mg 3 times a day. As per EMS flow sheet, family states they checked her sugar about 30 minutes prior before calling 911 and it was 329 and that was high for her. Then they administered 4 units of Humalog insulin per doctor's discharge instruction. Then approximately 15 minutes later she became altered and called 911. Patient's initial glucose was low to her normal that usually runs in the 200s. Family stated they can never get an IV on her and they have to place IVs in her neck. Patient's blood glucose was 69 at 8:02 p.m., and she was given dextrose injection and then her blood sugar went up to 259 at 8:21 PM. Her mentation also improved back to baseline. Per nursing report, since patient has been in the hospital, she has been either sleeping, or when she wakes up, she is yelling and noncooperative. Patient was seen by psychiatrist as well, and started on Seroquel. Her medications were adjusted by the psychiatrist. Review of Systems ROS unobtainable: due to mental status Past Medical History Past Medical History: Asthma, Coronary Artery Disease (CAD), Chest Pain / Angina, Heart Failure, COPD, CVA/TIA, Diabetes Mellitus, Deep Vein Thrombosis (DVT), Eye Disorder, GERD/Reflux, Hyperlipidemia, Hypertension, Myocardial Infarction (CA), Neurologic Disorder, Osteoarthritis (OA), Pneumonia, Renal Disease Additional Past Medical History / Comment(s): IDDM (brittle), DKAs, neuropathy bilateral hands/feet, retinopathy bilateral eyes, cellulitis R foot, R great toe and 2nd toe infections/amputations, current wound R foot-being seen in [facility], renal failure, anemia, CVAs with L sided paralysis, headaches started after CVAs, brain lesions, DVT R axillae, low back pain, varicosities, seizure many years ago (2001), hypothyroid, constipation, bilateral tinnitis occasionally, sinus problems. Last Myocardial Infarction Date:: 2011 History of Any Multi-Drug Resistant Organisms: MRSA Date of last positivie culture/infection: 09/06/17 MDRO Source:: Right Foot Past Surgical History: Appendectomy, Section, Cholecystectomy, Heart Catheterization With Stent, Hysterectomy, Orthopedic Surgery Additional Past Surgical History / Comment(s): PCI with multiple stents, R great toe and 2nd toe amps, debridements R foot ulcer, L shoulder surgery to remove bone, bronchoscopy, EGD, colonoscopy, R arm port since removed, bilateral cataract removals/lens implants. Past Anesthesia/Blood Transfusion Reactions: No Reported Reaction Additional Past Anesthesia/Blood Transfusion Reaction / Comment(s): HX OF BLOOD TRANSFUSION- NO REACTION Date of Last Stent Placement:: July 2012 Past Psychological History: Anxiety, Bipolar, Depression Additional Psychological History / Comment(s): Pt has a legal guardian, Sera Rodriguez, who is pt's sister. Currently her legal guardian is hospitalized. Pt has a caregiver, No, who resides with her. Pt is wheelchair bound d/t CVA with L sided paralysis arm and leg. She has a shower chair and a glucometer. Her sister or caregiver drive her to [place]. Smoking Status: Former smoker Past Alcohol Use History: None Reported Additional Past Alcohol Use History / Comment(s): Pt started smoking in 1982 and quit in 2017. Using marijuana edibles occasionally but none for a "long time" Past Drug Use History: Marijuana Additional Drug Use History / Comment(s): using marijuana edibles - Past Family History Father Family Medical History: Unable to Obtain, Coronary Artery Disease (CAD), Diabetes Mellitus Mother Family Medical History: COPD Medications and Allergies Home Medications Medication Instructions Recorded Confirmed Type Famotidine [Pepcid] 20 mg PO DAILY 07/19/15 03/14/20 History HYDROcodone/APAP 10-325MG [Americus 1 tab PO TID PRN 10/03/16 03/14/20 History 10-325] DULoxetine HCL [Cymbalta] 60 mg PO DAILY 02/16/17 03/14/20 History Atorvastatin [Lipitor] 20 mg PO DAILY 12/28/18 03/14/20 History Aspirin [Adult Low Dose Aspirin EC] 81 mg PO DAILY 06/09/19 03/14/20 History Ferrous Sulfate [Iron (65 MG 325 mg PO DAILY 06/09/19 03/14/20 History Elemental)] Divalproex [Depakote] 250 mg PO TID #90 tablet.dr 08/17/19 03/14/20 Rx ALPRAZolam [Xanax] 1 mg PO Q8H PRN 12/26/19 03/14/20 History Albuterol Sulfate [Ventolin HFA] 2 puff INHALATION RT-Q4H PRN 12/26/19 03/14/20 History Ondansetron Odt [Zofran ODT] 4 mg PO DAILY PRN 12/26/19 03/14/20 History Losartan [Cozaar] 50 mg PO DAILY tab 01/18/20 03/14/20 Rx Metoclopramide [Reglan] 10 mg PO AC-TID tab 01/18/20 03/14/20 Rx Ascorbic Acid [Vitamin C] 500 mg PO DAILY 01/29/20 03/14/20 History Vitamin B Complex 1 tab PO DAILY 01/29/20 03/14/20 History Calcium Carb-Vit D 500Mg-200Un 1 each PO BID-W/MEALS tab 02/02/20 03/14/20 Rx [Oscal 500+D] Clopidogrel [Plavix] 75 mg PO DAILY tab 02/02/20 03/14/20 Rx INSULIN ASPART (NovoLOG) [NovoLOG 0 unit SQ AC-TID vial 02/02/20 03/14/20 Rx (formulary)] Insulin Glargine,Hum.rec.anlog 10 unit SQ HS #0 03/13/20 03/14/20 Rx [Basaglar Kwikpen U-100] Lacosamide [Vimpat] 100 mg PO BID 30 Days #60 tablet 03/13/20 03/14/20 Rx QUEtiapine [SEROquel] 50 mg PO HS 30 Days #30 tab 03/13/20 03/14/20 Rx QUEtiapine [SEROquel] 25 mg PO BID 03/14/20 03/14/20 History Allergies Allergy/AdvReac Type Severity Reaction Status Date / Time Barbiturates Allergy Rash/Hives Verified 03/14/20 22:22 cephalexin monohydrate Allergy Rash/Hives Verified 03/14/20 22:22 [From Keflex] morphine Allergy Rash/Hives Verified 03/14/20 22:22 Penicillins Allergy Rash/Hives Verified 03/14/20 22:22 phenobarbital Allergy Swelling Verified 03/14/20 22:22 venom-honey bee Allergy Swelling Verified 03/14/20 22:22 [bee venom (honey bee)] amlodipine besylate AdvReac Vomiting Verified 03/14/20 22:22 [From [facility]] Physical Examination - Vital Signs Vital Signs: Vital Signs Temp Pulse Resp BP Pulse Ox 03/21/20 12:04 98.6 F 117 H 18 142/68 99 03/21/20 05:00 97.5 F L 89 16 132/65 97 03/20/20 20:15 97.8 F 88 20 154/87 95 Intake and Output 03/21/20 03/21/20 03/21/20 06:59 14:59 22:59 Other: Voiding Method Diaper Diaper Diaper Incontinent Incontinent Incontinent # Voids 2 2 On examination patient is sleeping. On trying to wake her up, she does try to open her eyes slightly but then again goes back to sleep. Patient continues to have left hemiplegia, spastic. The right side appears normal. Patient has Babinski on the left side. Rest of the examination could not be performed. Results - Laboratory Findings CBC and BMP: 03/20/20 09:50 03/20/20 09:50 Abnormal Lab Findings: Abnormal Labs 03/14/20 03/14/20 03/14/20 20:33 21:00 21:00 WBC 3.5 L RBC 2.87 L Hgb 8.6 L Hct 27.8 L MCV MCHC 30.8 L RDW 16.9 H Neutrophils # Sodium Potassium Chloride 109 H Carbon Dioxide Anion Gap BUN 25 H Creatinine 1.05 H Est GFR (CKD-EPI)AfAm Est GFR (CKD-EPI)NonAf BUN/Creatinine Ratio Glucose POC Glucose (mg/dL) 159 H Calcium 7.7 L Magnesium 2.7 H Total Bilirubin AST 37 H ALT Alkaline Phosphatase Total Protein 5.6 L Albumin 2.6 L Albumin/Globulin Ratio Urine Protein Urine Glucose (UA) Urine Blood Ur Leukocyte Esterase Urine Bacteria Hyaline Casts Urine Mucus 03/14/20 03/14/20 03/15/20 22:15 23:38 00:42 WBC RBC Hgb Hct MCV MCHC RDW Neutrophils # Sodium Potassium Chloride Carbon Dioxide Anion Gap BUN Creatinine Est GFR (CKD-EPI)AfAm Est GFR (CKD-EPI)NonAf BUN/Creatinine Ratio Glucose POC Glucose (mg/dL) 54 L 215 H 380 H Calcium Magnesium Total Bilirubin AST ALT Alkaline Phosphatase Total Protein Albumin Albumin/Globulin Ratio Urine Protein Urine Glucose (UA) Urine Blood Ur Leukocyte Esterase Urine Bacteria Hyaline Casts Urine Mucus 03/15/20 03/15/20 03/15/20 04:46 07:12 09:11 WBC 3.7 L RBC 3.24 L Hgb 9.6 L Hct 31.9 L MCV MCHC 30.0 L RDW 16.4 H Neutrophils # Sodium Potassium Chloride Carbon Dioxide Anion Gap BUN Creatinine Est GFR (CKD-EPI)AfAm Est GFR (CKD-EPI)NonAf BUN/Creatinine Ratio Glucose POC Glucose (mg/dL) 518 H 495 H Calcium Magnesium Total Bilirubin AST ALT Alkaline Phosphatase Total Protein Albumin Albumin/Globulin Ratio Urine Protein Urine Glucose (UA) Urine Blood Ur Leukocyte Esterase Urine Bacteria Hyaline Casts Urine Mucus 03/15/20 03/15/20 03/15/20 09:11 11:14 17:08 WBC RBC Hgb Hct MCV MCHC RDW Neutrophils # Sodium Potassium Chloride Carbon Dioxide Anion Gap BUN Creatinine Est GFR (CKD-EPI)AfAm 57.3 L Est GFR (CKD-EPI)NonAf 49.4 L BUN/Creatinine Ratio Glucose 392 H POC Glucose (mg/dL) 517 H Calcium 8.4 L Magnesium Total Bilirubin AST ALT Alkaline Phosphatase Total Protein 6.1 L Albumin 3.20 L Albumin/Globulin Ratio 1.10 L Urine Protein Urine Glucose (UA) 4+ H Urine Blood Trace H Ur Leukocyte Esterase Small H Urine Bacteria Rare H Hyaline Casts 4 H Urine Mucus Rare H 03/15/20 03/15/20 03/15/20 17:09 17:26 19:10 WBC RBC Hgb Hct MCV MCHC RDW Neutrophils # Sodium Potassium Chloride Carbon Dioxide Anion Gap BUN Creatinine Est GFR (CKD-EPI)AfAm Est GFR (CKD-EPI)NonAf BUN/Creatinine Ratio Glucose 617 H* POC Glucose (mg/dL) 547 H >600 H Calcium Magnesium Total Bilirubin AST ALT Alkaline Phosphatase Total Protein Albumin Albumin/Globulin Ratio Urine Protein Urine Glucose (UA) Urine Blood Ur Leukocyte Esterase Urine Bacteria Hyaline Casts Urine Mucus 03/15/20 03/16/20 03/16/20 23:24 02:19 05:21 WBC RBC 3.03 L Hgb 8.9 L Hct 29.1 L MCV MCHC 30.7 L RDW 16.7 H Neutrophils # Sodium Potassium Chloride Carbon Dioxide Anion Gap BUN Creatinine Est GFR (CKD-EPI)AfAm Est GFR (CKD-EPI)NonAf BUN/Creatinine Ratio Glucose POC Glucose (mg/dL) 123 H 115 H Calcium Magnesium Total Bilirubin AST ALT Alkaline Phosphatase Total Protein Albumin Albumin/Globulin Ratio Urine Protein Urine Glucose (UA) Urine Blood Ur Leukocyte Esterase Urine Bacteria Hyaline Casts Urine Mucus 03/16/20 03/16/20 03/16/20 05:21 07:10 12:24 WBC RBC Hgb Hct MCV MCHC RDW Neutrophils # Sodium Potassium Chloride Carbon Dioxide Anion Gap BUN Creatinine Est GFR (CKD-EPI)AfAm Est GFR (CKD-EPI)NonAf BUN/Creatinine Ratio 22.00 H Glucose POC Glucose (mg/dL) 109 H 425 H Calcium Magnesium Total Bilirubin 0.1 L AST ALT Alkaline Phosphatase Total Protein 5.7 L Albumin 3.00 L Albumin/Globulin Ratio 1.11 L Urine Protein Urine Glucose (UA) Urine Blood Ur Leukocyte Esterase Urine Bacteria Hyaline Casts Urine Mucus 03/16/20 03/16/20 03/16/20 14:12 17:02 20:10 WBC RBC Hgb Hct MCV MCHC RDW Neutrophils # Sodium Potassium Chloride Carbon Dioxide Anion Gap BUN Creatinine Est GFR (CKD-EPI)AfAm Est GFR (CKD-EPI)NonAf BUN/Creatinine Ratio Glucose POC Glucose (mg/dL) 396 H 173 H 175 H Calcium Magnesium Total Bilirubin AST ALT Alkaline Phosphatase Total Protein Albumin Albumin/Globulin Ratio Urine Protein Urine Glucose (UA) Urine Blood Ur Leukocyte Esterase Urine Bacteria Hyaline Casts Urine Mucus 03/17/20 03/17/20 03/17/20 06:09 06:09 06:28 WBC 3.2 L RBC 3.28 L Hgb 9.6 L Hct 31.8 L MCV MCHC 30.2 L RDW 16.4 H Neutrophils # 0.8 L Sodium Potassium Chloride Carbon Dioxide 32.2 H Anion Gap BUN 31.0 H Creatinine 1.6 H Est GFR (CKD-EPI)AfAm 40.5 L Est GFR (CKD-EPI)NonAf 34.9 L BUN/Creatinine Ratio Glucose 65 L POC Glucose (mg/dL) 67 L Calcium Magnesium Total Bilirubin AST 1100 H ALT 258 H Alkaline Phosphatase 261 H Total Protein 6.1 L Albumin 3.20 L Albumin/Globulin Ratio 1.10 L Urine Protein Urine Glucose (UA) Urine Blood Ur Leukocyte Esterase Urine Bacteria Hyaline Casts Urine Mucus 03/17/20 03/17/20 03/17/20 06:31 06:50 11:15 WBC RBC Hgb Hct MCV MCHC RDW Neutrophils # Sodium Potassium Chloride Carbon Dioxide Anion Gap BUN Creatinine Est GFR (CKD-EPI)AfAm Est GFR (CKD-EPI)NonAf BUN/Creatinine Ratio Glucose POC Glucose (mg/dL) 63 L 62 L 464 H Calcium Magnesium Total Bilirubin AST ALT Alkaline Phosphatase Total Protein Albumin Albumin/Globulin Ratio Urine Protein Urine Glucose (UA) Urine Blood Ur Leukocyte Esterase Urine Bacteria Hyaline Casts Urine Mucus 03/17/20 03/17/20 03/18/20 17:05 20:38 00:50 WBC RBC Hgb Hct MCV MCHC RDW Neutrophils # Sodium Potassium Chloride Carbon Dioxide Anion Gap BUN Creatinine Est GFR (CKD-EPI)AfAm Est GFR (CKD-EPI)NonAf BUN/Creatinine Ratio Glucose POC Glucose (mg/dL) 150 H 432 H 134 H Calcium Magnesium Total Bilirubin AST ALT Alkaline Phosphatase Total Protein Albumin Albumin/Globulin Ratio Urine Protein Urine Glucose (UA) Urine Blood Ur Leukocyte Esterase Urine Bacteria Hyaline Casts Urine Mucus 03/18/20 03/18/20 03/18/20 04:24 04:47 04:47 WBC 2.9 L RBC 3.40 L Hgb 10.3 L Hct 32.7 L MCV MCHC RDW 16.3 H Neutrophils # 0.7 L Sodium Potassium Chloride Carbon Dioxide Anion Gap 12.70 H BUN 31.0 H Creatinine Est GFR (CKD-EPI)AfAm 47.5 L Est GFR (CKD-EPI)NonAf 41.0 L BUN/Creatinine Ratio 22.14 H Glucose 44 L* POC Glucose (mg/dL) 60 L Calcium Magnesium Total Bilirubin 0.2 L AST 596 H ALT 296 H Alkaline Phosphatase 333 H Total Protein 6.1 L Albumin 3.20 L Albumin/Globulin Ratio 1.10 L Urine Protein Urine Glucose (UA) Urine Blood Ur Leukocyte Esterase Urine Bacteria Hyaline Casts Urine Mucus 03/18/20 03/18/20 03/18/20 04:47 04:59 07:03 WBC RBC Hgb Hct MCV MCHC RDW Neutrophils # Sodium Potassium Chloride Carbon Dioxide Anion Gap BUN Creatinine Est GFR (CKD-EPI)AfAm Est GFR (CKD-EPI)NonAf BUN/Creatinine Ratio Glucose POC Glucose (mg/dL) 47 L 59 L 112 H Calcium Magnesium Total Bilirubin AST ALT Alkaline Phosphatase Total Protein Albumin Albumin/Globulin Ratio Urine Protein Urine Glucose (UA) Urine Blood Ur Leukocyte Esterase Urine Bacteria Hyaline Casts Urine Mucus 03/18/20 03/18/20 03/18/20 11:28 17:24 21:05 WBC RBC Hgb Hct MCV MCHC RDW Neutrophils # Sodium Potassium Chloride Carbon Dioxide Anion Gap BUN Creatinine Est GFR (CKD-EPI)AfAm Est GFR (CKD-EPI)NonAf BUN/Creatinine Ratio Glucose POC Glucose (mg/dL) 164 H 332 H 217 H Calcium Magnesium Total Bilirubin AST ALT Alkaline Phosphatase Total Protein Albumin Albumin/Globulin Ratio Urine Protein Urine Glucose (UA) Urine Blood Ur Leukocyte Esterase Urine Bacteria Hyaline Casts Urine Mucus 03/19/20 03/19/20 03/19/20 03:59 04:00 04:03 WBC RBC Hgb Hct MCV MCHC RDW Neutrophils # Sodium Potassium Chloride Carbon Dioxide Anion Gap BUN Creatinine Est GFR (CKD-EPI)AfAm Est GFR (CKD-EPI)NonAf BUN/Creatinine Ratio Glucose POC Glucose (mg/dL) >600 H >600 H >600 H Calcium Magnesium Total Bilirubin AST ALT Alkaline Phosphatase Total Protein Albumin Albumin/Globulin Ratio Urine Protein Urine Glucose (UA) Urine Blood Ur Leukocyte Esterase Urine Bacteria Hyaline Casts Urine Mucus 03/19/20 03/19/20 03/19/20 04:19 04:19 06:48 WBC 3.3 L RBC 3.22 L Hgb 9.9 L Hct 33.0 L MCV 102.3 H D MCHC 29.9 L RDW 16.2 H Neutrophils # 1.2 L Sodium 131 L Potassium 6.3 H* Chloride Carbon Dioxide Anion Gap BUN 32 H Creatinine 1.23 H Est GFR (CKD-EPI)AfAm Est GFR (CKD-EPI)NonAf BUN/Creatinine Ratio Glucose 659 H* POC Glucose (mg/dL) 588 H Calcium Magnesium Total Bilirubin AST 171 H ALT 239 H Alkaline Phosphatase 318 H Total Protein Albumin 3.1 L Albumin/Globulin Ratio Urine Protein Urine Glucose (UA) Urine Blood Ur Leukocyte Esterase Urine Bacteria Hyaline Casts Urine Mucus 03/19/20 03/19/20 03/19/20 06:51 07:56 11:04 WBC RBC Hgb Hct MCV MCHC RDW Neutrophils # Sodium Potassium Chloride Carbon Dioxide Anion Gap BUN Creatinine Est GFR (CKD-EPI)AfAm Est GFR (CKD-EPI)NonAf BUN/Creatinine Ratio Glucose POC Glucose (mg/dL) 546 H 443 H 365 H Calcium Magnesium Total Bilirubin AST ALT Alkaline Phosphatase Total Protein Albumin Albumin/Globulin Ratio Urine Protein Urine Glucose (UA) Urine Blood Ur Leukocyte Esterase Urine Bacteria Hyaline Casts Urine Mucus 03/19/20 03/19/20 03/19/20 16:54 17:09 20:37 WBC RBC Hgb Hct MCV MCHC RDW Neutrophils # Sodium Potassium Chloride Carbon Dioxide Anion Gap BUN Creatinine Est GFR (CKD-EPI)AfAm Est GFR (CKD-EPI)NonAf BUN/Creatinine Ratio Glucose POC Glucose (mg/dL) 54 L 49 L 480 H Calcium Magnesium Total Bilirubin AST ALT Alkaline Phosphatase Total Protein Albumin Albumin/Globulin Ratio Urine Protein Urine Glucose (UA) Urine Blood Ur Leukocyte Esterase Urine Bacteria Hyaline Casts Urine Mucus 03/20/20 03/20/20 03/20/20 02:10 02:12 07:08 WBC RBC Hgb Hct MCV MCHC RDW Neutrophils # Sodium Potassium Chloride Carbon Dioxide Anion Gap BUN Creatinine Est GFR (CKD-EPI)AfAm Est GFR (CKD-EPI)NonAf BUN/Creatinine Ratio Glucose POC Glucose (mg/dL) 513 H 524 H 483 H Calcium Magnesium Total Bilirubin AST ALT Alkaline Phosphatase Total Protein Albumin Albumin/Globulin Ratio Urine Protein Urine Glucose (UA) Urine Blood Ur Leukocyte Esterase Urine Bacteria Hyaline Casts Urine Mucus 03/20/20 03/20/20 03/20/20 08:55 09:50 09:50 WBC 2.6 L RBC 2.85 L Hgb 8.6 L Hct 28.3 L MCV MCHC 30.5 L RDW 16.2 H Neutrophils # 1.1 L Sodium 136 L Potassium Chloride Carbon Dioxide Anion Gap BUN 27 H Creatinine 1.20 H Est GFR (CKD-EPI)AfAm Est GFR (CKD-EPI)NonAf BUN/Creatinine Ratio Glucose 395 H POC Glucose (mg/dL) 511 H Calcium Magnesium Total Bilirubin AST 46 H ALT 122 H Alkaline Phosphatase 255 H Total Protein 6.0 L Albumin 2.9 L Albumin/Globulin Ratio Urine Protein Urine Glucose (UA) Urine Blood Ur Leukocyte Esterase Urine Bacteria Hyaline Casts Urine Mucus 03/20/20 03/20/20 03/20/20 10:09 11:14 14:50 WBC RBC Hgb Hct MCV MCHC RDW Neutrophils # Sodium Potassium Chloride Carbon Dioxide Anion Gap BUN Creatinine Est GFR (CKD-EPI)AfAm Est GFR (CKD-EPI)NonAf BUN/Creatinine Ratio Glucose POC Glucose (mg/dL) 394 H 266 H 227 H Calcium Magnesium Total Bilirubin AST ALT Alkaline Phosphatase Total Protein Albumin Albumin/Globulin Ratio Urine Protein Urine Glucose (UA) Urine Blood Ur Leukocyte Esterase Urine Bacteria Hyaline Casts Urine Mucus 03/20/20 03/20/20 03/21/20 17:06 20:38 01:18 WBC RBC Hgb Hct MCV MCHC RDW Neutrophils # Sodium Potassium Chloride Carbon Dioxide Anion Gap BUN Creatinine Est GFR (CKD-EPI)AfAm Est GFR (CKD-EPI)NonAf BUN/Creatinine Ratio Glucose POC Glucose (mg/dL) 259 H 217 H 278 H Calcium Magnesium Total Bilirubin AST ALT Alkaline Phosphatase Total Protein Albumin Albumin/Globulin Ratio Urine Protein Urine Glucose (UA) Urine Blood Ur Leukocyte Esterase Urine Bacteria Hyaline Casts Urine Mucus 03/21/20 03/21/20 03/21/20 01:18 06:17 07:06 WBC RBC Hgb Hct MCV MCHC RDW Neutrophils # Sodium Potassium Chloride Carbon Dioxide Anion Gap BUN Creatinine Est GFR (CKD-EPI)AfAm Est GFR (CKD-EPI)NonAf BUN/Creatinine Ratio Glucose POC Glucose (mg/dL) 125 H 134 H Calcium Magnesium Total Bilirubin AST ALT Alkaline Phosphatase Total Protein Albumin Albumin/Globulin Ratio Urine Protein Trace H Urine Glucose (UA) 3+ H Urine Blood Ur Leukocyte Esterase Urine Bacteria Hyaline Casts Urine Mucus 03/21/20 03/21/20 11:41 17:14 WBC RBC Hgb Hct MCV MCHC RDW Neutrophils # Sodium Potassium Chloride Carbon Dioxide Anion Gap BUN Creatinine Est GFR (CKD-EPI)AfAm Est GFR (CKD-EPI)NonAf BUN/Creatinine Ratio Glucose POC Glucose (mg/dL) 156 H 320 H Calcium Magnesium Total Bilirubin AST ALT Alkaline Phosphatase Total Protein Albumin Albumin/Globulin Ratio Urine Protein Urine Glucose (UA) Urine Blood Ur Leukocyte Esterase Urine Bacteria Hyaline Casts Urine Mucus Assessment and Plan Assessment: * Altered mental status, possibly due to hypoglycemia although her blood sugar was 69, which is not significant to produce altered mental status. Concern about complex partial seizure. 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 * Diabetes, poorly controlled * History of tobacco abuse. Plan: * Patient continues to have episodic altered mental status. I suspect patient may have intermittent complex partial seizures. We will increase dose of V impat to 150 mg twice a day. Continue same dose of Depakote 250 mg 3 times a day. * Psychiatrist also seen the patient and adjusted her psych medication. * We will follow.
--- NOTE | 2020-03-21 17:33 | P.PN ---
Subjective Progress Note Date: 03/21/20 Melva Jackson, is a 59-year-old female patient well-known to my services. Patient was recently discharged she was admitted to the hospital for DKA and pneumonia. Patient has underlying history of diabetes mellitus type 1 which is a brittle diabetic. Lantus was decreased upon discharge. Additional medical history includes stroke and seizures. She was discharged home with her sister. According to ER report patient was found to have a low blood sugar with altered mental status changes. Blood sugar was corrected and alt mental status changes recovered. There is questionable compliance with diet. Consult placed for possible ECF placement on discharge. Chest x-ray was completed showing no ac tive cardiopulmonary disease. There is almost complete clearing of the right side patchy pulmonary infiltrate compared to old exam. We'll continue to monitor blood sugar closely and make adjustments to home medication . On 03/16/2020 patient was seen and examined on the medical floor she is alert and oriented 3 in no distress there is no fever or chills no headache or dizziness no chest pain no shortness of breath no cough no nausea or vomiting no abdominal pain no diarrhea no blood in the stools no burning with urination no frequency or urgency and no hematuria glucose levels are much better controlled today she is receiving Levemir 10 units at bedtime and sliding scale before meals On 03/17/2020 patient was seen and examined on the medical floor she is alert and oriented 3 in no distress there is no fever or chills no headache or dizziness no chest pain no shortness of breath no cough no nausea or vomiting no abdominal pain no diarrhea no blood in the stools no burning with urination no frequency or urgency and no hematuria. Patient to glucose level is still fluctuating she was 88 before breakfast this morning no short-acting insulin was given patient was given breakfast her glucose level was 464 before lunch she is being given 8 units of NovoLog before lunch will continue to monitor and adjust insulin, possible transfer to rehab tomorrow. On 03/18/2020 patient was seen and examined on the medical floor she is alert and oriented in no distress, glucose levels are better controlled however this morning patient had another episode of hypoglycemia, at this time will decrease Levemir dose to 8 units daily and continue was NovoLog before meals, and give a bedtime snack, but no short-acting insulin at bedtime. On 03/19/2020 patient was seen and examined on the medical floor she is alert and oriented 3 in no apparent distress she had significantly elevated glucose level of 600 this morning, otherwise she denies any complaints at this point will increase Levemir again to 10 units at bedtime, avoid NovoLog before bedtime, and give NovoLog only before meals will continue to monitor glucose level and adjust insulin accordingly On 03/20/2020 Patient is more sleepy today. Blood sugar in the 400's this AM. corrected per scale. Will continue to monitor for the next 24-48 hours. Denies any specific complaints On 03/21/2020 patient was seen and examined on the medical floor she is somnolent, arousable for a few seconds and she returns to sleep, she was up all night very agitated and screaming, she received IV Ativan and IM Haldol, consultation for psychiatry and neurology were initiated in that regard, otherwise no events since yesterday glucose level is better controlled Objective - Vital Signs Vital signs: Vital Signs Temp 98.6 F 03/21/20 12:04 Pulse 117 H 03/21/20 12:04 Resp 18 03/21/20 12:04 BP 142/68 03/21/20 12:04 Pulse Ox 99 03/21/20 12:04 Intake & Output 03/20/20 03/21/20 03/21/20 18:59 06:59 18:59 Intake Total 300 Balance 300 Intake: Oral 300 Other: Voiding Method Bedside Commode Diaper Diaper Diaper Incontinent Incontinent Incontinent # Voids 1 2 2 - Exam Head normocephalic and atraumatic Neck supple no JVD no goiter Lungs clear to auscultation bilaterally no wheezing or crackles Heart regular rate and rhythm S1-S2, no rub or gallop Abdomen is soft nontender nondistended positive bowel sounds no hepatosplenomegaly Extremities no edema no cyanosis or clubbing Neuro alert and orientated to 3 - Labs CBC & Chem 7: 03/20/20 09:50 03/20/20 09:50 Labs: Abnormal Lab Results - Last 24 Hours (Table) 03/20/20 03/21/20 03/21/20 Range/Units 20:38 01:18 01:18 POC Glucose (mg/dL) 217 H 278 H (75-99) mg/dL Urine Protein Trace H (Negative) Urine Glucose (UA) 3+ H (Negative) 03/21/20 03/21/20 03/21/20 Range/Units 06:17 07:06 11:41 POC Glucose (mg/dL) 125 H 134 H 156 H (75-99) mg/dL Urine Protein (Negative) Urine Glucose (UA) (Negative) 03/21/20 Range/Units 17:14 POC Glucose (mg/dL) 320 H (75-99) mg/dL Urine Protein (Negative) Urine Glucose (UA) (Negative) Assessment and Plan Plan: 1. Altered mental status is with hypoglycemia. Hypoglycemia was corrected altered mental status changes have resolved 2. Diabetes mellitus type 1. Patient is known to be a brittle diabetic with fluctuating blood sugars 3. Recent hospitalization for pneumonia. Chest x-ray completed showing improvement 4. History of seizures. Patient was evaluated by neurology services and medications adjusted during previous day 5. History of stroke 6. Essential hypertension 7. History of hyperlipidemia. Patient obtained on statin 8. History of COPD no exacerbation at this time 9. History of coronary artery disease 10. History of peripheral vascular disease with previous history of multiple toe amputations 11. Iron deficiency anemia 12. Episodes of agitation and screaming, patient received Haldol and Ativan, psychiatry and neurology consultation requested DVT prophylaxis Lovenox. GI prophylaxis Pepcid PT OT consulted for possible ECF placement
[2020-03-21] MEDS: METOCLOPRAMIDE 5 MG TAB PO SCH (17:50)
[2020-03-21 20:02] LABS: Glucose,Whole Blood 210 mg/dL (75-99)
[2020-03-21] MEDS: QUEtiapine 50 MG TAB PO SCH (20:16)
[2020-03-21] MEDS: INSULIN DETEMIR (LEVEMIR) 100 UNIT/ML SYR SQ SCH (20:29)
[2020-03-21 20:33] LABS: Glucose,Whole Blood 181 mg/dL (75-99)
[2020-03-21] MEDS ORDERED: LACOSAMIDE IV 150 MG in SODIUM CHLORIDE 0.9% 50 ML IVPB SCH (21:00)
[2020-03-21] MEDS: VALPROATE SODIUM 250 MG in SODIUM CHLORIDE 0.9% 100 ML IVPB SCH (23:29)
[2020-03-21] MEDS: DEXTROSE 5%-0.45% NACL 1,000 ML IV SCH (23:30)
[2020-03-22 02:15] LABS: Glucose,Whole Blood 228 mg/dL (75-99)
[2020-03-22] MEDS: HYDROcodone/APAP 10-325MG 1 EACH TAB PO PRN ×2 (05:20→14:40)
[2020-03-22 07:01] LABS: Glucose,Whole Blood 219 mg/dL (75-99)
[2020-03-22 08:06] LABS: Anisocytosis Slight; Basophils % (A) 0 %; Eosinophils % (A) 0 %; HCT 27.7 % (34.0-46.0); HGB 9.4 gm/dL (11.4-16.0); Hypochromasia Slight; Lymphocytes # (A) 1.1 k/uL (1.0-4.8); Lymphocytes % (A) 55 %; MCH 32.5 pg (25.0-35.0); MCHC 33.8 g/dL (31.0-37.0); MCV 96.3 fL (80.0-100.0); Mean Platelet Volume 7.7; Monocytes # (A) 0.2 k/uL (0-1.0); Monocytes % (A) 12 %; Neutrophils # (A) 0.6 k/uL (1.3-7.7); Neutrophils % (A) 30 %; Platelet Count 178 k/uL (150-450); RBC 2.88 m/uL (3.80-5.40); RDW 16.4 % (11.5-15.5); WBC 1.9 k/uL (3.8-10.6)
[2020-03-22] MEDS: CALCIUM CARB-VIT D 500MG-200UN 1 EACH TAB PO SCH ×2 (08:12→17:56)
[2020-03-22] MEDS: INSULIN ASPART (NovoLOG) 100 UNIT/ML VIAL SQ SCH ×3 (08:12→17:56)
[2020-03-22] MEDS: METOCLOPRAMIDE 5 MG TAB PO SCH ×3 (08:13→17:56)
[2020-03-22] MEDS: VALPROATE SODIUM 250 MG in SODIUM CHLORIDE 0.9% 100 ML IVPB SCH ×2 (08:15→21:32)
[2020-03-22] MEDS: ASCORBIC ACID 500 MG TAB PO SCH (08:20)
[2020-03-22] MEDS: ENOXAPARIN 40 MG/0.4 ML SYRINGE SQ SCH (08:20)
[2020-03-22] MEDS: DULoxetine HCL 30 MG CAPSULE.DR PO SCH (08:20)
[2020-03-22] MEDS: ASPIRIN 81 MG PO SCH (08:20)
[2020-03-22] MEDS: CLOPIDOGREL 75 MG TAB PO SCH (08:20)
[2020-03-22] MEDS: ATORVASTATIN 20 MG TAB PO SCH (08:20)
[2020-03-22] MEDS: FERROUS SULFATE 325 MG TAB PO SCH (08:21)
[2020-03-22] MEDS: FAMOTIDINE 20 MG TAB PO SCH (08:21)
[2020-03-22] MEDS: LOSARTAN 50 MG TAB PO SCH (08:21)
[2020-03-22 11:54] LABS: Glucose,Whole Blood 266 mg/dL (75-99)
[2020-03-22 12:31] LABS: African American GFR (CKD) 63.6 (60.0-200.0); Albumin 2.8 g/dL (3.80-4.90); Albumin/Globulin Ratio 1.08 (1.60-3.17); Anion Gap 8.2 mmol/L (4.00-12.00); BUN/Creat Ratio 19.09 Ratio (12.00-20.00); Calcium 8.5 mg/dL (8.7-10.3); Carbon Dioxide 27.8 mmol/L (21.6-31.8); Globulin 2.6 g/dL (1.6-3.3); Non-African American GFR(CKD) 54.9 (60.0-200.0); Potassium 4.5 mmol/L (3.5-5.5); Total Bilirubin 0.2 mg/dL (0.2-1.2); Total Protein 5.4 g/dL (6.2-8.2)
--- NOTE | 2020-03-22 12:44 | P.PN ---
Progress Note - Text Progress Note Date: 03/22/20 Identifying Data: This patient is a 59 female with a significant history of IDDM, DKA, CVAs with left-sided paralysis, seizure disorder, hypothyroidism, and CAD was admitted on 03/15/2020 with mental status changes and hyperglycemia. Interval History: Patient was seen in bed and was mainly somnolent and could not provide adequate psychiatric history. At bedside as the patient's nurse. During the evaluation, the patient only commented that she has been feeling "like cr*p." She reports she has pain all over her body. She then was able to identify her name, where she is currently located but did not answer the date. As per history provided by the patient's nurse, the patient has been mainly somnolent and but was able to sleep through the night. She has had waking moments of clarity and calmness but has also had episodes where she would be yelling and screaming intermittently. She has been responsive to redirection and pain management. Mental Status Exam: General Appearance: Patient appears older than her stated age, thin and frail. Dressed in a hospital gown. Behavior: Patient is somnolent, would awaken for a few questions and then go back to sleep. Speech: Patient's speech is low in volume, nonspontaneous, minimal. Mood/Affect: Mood is "like cr*p", affect is somnolent and sedated. Suicidality/Homicidality: Unable to assess Perceptions: Unable to assess Though content/process: Unable to assess Memory and concentration: The patient is alert and oriented to person and place only. Concentration is poor. Judgment and insight: Poor Assessment Altered Mental Status with hypoglycemia Psychosis, unspecified Plan: -Ammonia level was reviewed and was within normal limits. -We will make no medication changes at this time. - Continue Seroquel 50 mg by mouth at bedtime, Cymbalta 30 mg by mouth daily, Haldol/Ativan when necessary, Xanax when necessary. -Delirium precautions recommended with patient including - avoiding use of narcotics and [employer]OR [employer]SEMENT sedatives, limit anticholinergic medications when possible, frequent reorientation, minimize use of restraints, open window shades during the day and close them at night - Psychiatry will continue to follow.
[2020-03-22] MEDS: LACOSAMIDE IV 150 MG in SODIUM CHLORIDE 0.9% 50 ML IVPB SCH (14:28)
[2020-03-22] MEDS ORDERED: SODIUM CHLORIDE 0.9% 1,000 ML IV STA (14:48)
--- NOTE | 2020-03-22 16:13 | P.PN ---
Subjective Progress Note Date: 03/22/20 Patient was seen for follow-up. No further seizures reported. Per nursing report, patient states hard, but when she wakes up, she is often appropriate. Sometimes she gets upset easily. Sometimes she screams for no reason. Objective - Vital Signs Vital signs: Vital Signs Temp 98.3 F 03/22/20 05:00 Pulse 89 03/22/20 12:36 Resp 15 03/22/20 12:36 BP 110/65 03/22/20 12:36 Pulse Ox 94 L 03/22/20 12:36 Intake & Output 03/21/20 03/22/20 03/22/20 18:59 06:59 18:59 Intake Total 0 540 Balance 0 540 Intake: Intake, IV Titration 0 Amount Valproate Sodium 250 mg 0 In Sodium Chloride 0.9% 100 ml @ 100 mls/hr IV[facility] Q[facility] Rx#:[id number] Oral 0 540 Other: Voiding Method Diaper Diaper Diaper Incontinent Incontinent Incontinent # Voids 2 2 3 # Bowel Movements 0 - Exam Patient was sleeping, however when I woke her up, she was appropriate. Offers no complaints. Continues to be left hemiplegic. - Labs CBC & Chem 7: 03/22/20 07:28 03/22/20 07:28 Labs: Abnormal Lab Results - Last 24 Hours (Table) 03/21/20 03/21/20 03/21/20 Range/Units 17:14 20:01 20:29 WBC (3.8-10.6) k/uL RBC (3.80-5.40) m/uL Hgb (11.4-16.0) gm/dL Hct (34.0-46.0) % RDW (11.5-15.5) % Neutrophils # (1.3-7.7) k/uL Est GFR (CKD-EPI)NonAf (60.0-200.0) Glucose (70-110) mg/dL POC Glucose (mg/dL) 320 H 210 H 181 H (75-99) mg/dL Calcium (8.7-10.3) mg/dL AST (13-35) U/L ALT (8-44) U/L Alkaline Phosphatase (41-126) U/L Total Protein (6.2-8.2) g/dL Albumin (3.80-4.90) g/dL Albumin/Globulin Ratio (1.60-3.17) g/dL 03/22/20 03/22/20 03/22/20 Range/Units 02:14 06:59 07:28 WBC 1.9 L (3.8-10.6) k/uL RBC 2.88 L (3.80-5.40) m/uL Hgb 9.4 L (11.4-16.0) gm/dL Hct 27.7 L (34.0-46.0) % RDW 16.4 H (11.5-15.5) % Neutrophils # 0.6 L (1.3-7.7) k/uL Est GFR (CKD-EPI)NonAf (60.0-200.0) Glucose (70-110) mg/dL POC Glucose (mg/dL) 228 H 219 H (75-99) mg/dL Calcium (8.7-10.3) mg/dL AST (13-35) U/L ALT (8-44) U/L Alkaline Phosphatase (41-126) U/L Total Protein (6.2-8.2) g/dL Albumin (3.80-4.90) g/dL Albumin/Globulin Ratio (1.60-3.17) g/dL 03/22/20 03/22/20 Range/Units 07:28 11:53 WBC (3.8-10.6) k/uL RBC (3.80-5.40) m/uL Hgb (11.4-16.0) gm/dL Hct (34.0-46.0) % RDW (11.5-15.5) % Neutrophils # (1.3-7.7) k/uL Est GFR (CKD-EPI)NonAf 54.9 L (60.0-200.0) Glucose 205 H (70-110) mg/dL POC Glucose (mg/dL) 266 H (75-99) mg/dL Calcium 8.5 L (8.7-10.3) mg/dL AST 42 H (13-35) U/L ALT 75 H (8-44) U/L Alkaline Phosphatase 200 H (41-126) U/L Total Protein 5.4 L (6.2-8.2) g/dL Albumin 2.80 L (3.80-4.90) g/dL Albumin/Globulin Ratio 1.08 L (1.60-3.17) g/dL Assessment and Plan Assessment: * Altered mental status, possibly due to hypoglycemia although her blood sugar was 69, which is not significant to produce altered mental status. Concern about complex partial seizure. 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 * Diabetes, poorly controlled * History of tobacco abuse. Plan: * Continue Vimpat 150 mg twice a day. Continue same dose of Depakote 250 mg 3 times a day. * Psychiatrist also seen the patient and adjusted her psych medication. * Patient clear from Neurology standpoint.
[2020-03-22 17:26] LABS: Glucose,Whole Blood 293 mg/dL (75-99)
[2020-03-22] MEDS: ALPRAZolam 1 MG TAB PO PRN (21:32)
[2020-03-22] MEDS: INSULIN DETEMIR (LEVEMIR) 100 UNIT/ML SYR SQ SCH (21:32)
[2020-03-22] MEDS: QUEtiapine 50 MG TAB PO SCH (21:32)
[2020-03-22 22:10] LABS: Glucose,Whole Blood 140 mg/dL (75-99)
[2020-03-23] MEDS: LACOSAMIDE IV 150 MG in SODIUM CHLORIDE 0.9% 50 ML IVPB SCH ×2 (03:22→15:59)
[2020-03-23 03:37] LABS: Glucose,Whole Blood 69 mg/dL (75-99)
[2020-03-23] MEDS: VALPROATE SODIUM 250 MG in SODIUM CHLORIDE 0.9% 100 ML IVPB SCH ×3 (05:00→21:29)
[2020-03-23 06:14] LABS: Anisocytosis Slight; Basophils % (A) 0 %; Eosinophils % (A) 0 %; HCT 28.3 % (34.0-46.0); HGB 8.8 gm/dL (11.4-16.0); Hypochromasia Slight; Lymphocytes # (A) 2.3 k/uL (1.0-4.8); Lymphocytes % (A) 54 %; MCH 30.3 pg (25.0-35.0); MCHC 31.1 g/dL (31.0-37.0); MCV 97.4 fL (80.0-100.0); Macrocytosis Slight; Mean Platelet Volume 7.5; Monocytes # (A) 0.4 k/uL (0-1.0); Monocytes % (A) 10 %; Neutrophils # (A) 1.4 k/uL (1.3-7.7); Neutrophils % (A) 33 %; Platelet Count 169 k/uL (150-450); RBC 2.91 m/uL (3.80-5.40); RDW 16.2 % (11.5-15.5); WBC 4.2 k/uL (3.8-10.6)
[2020-03-23] MEDS: DEXTROSE 5%-0.45% NACL 1,000 ML IV SCH (06:25)
[2020-03-23 07:18] LABS: Glucose,Whole Blood 37 mg/dL (75-99)
[2020-03-23 07:18] LABS: Glucose,Whole Blood 34 mg/dL (75-99)
[2020-03-23] MEDS ORDERED: DEXTROSE 50% SYRINGE 50 ML IVP ONE (07:18)
[2020-03-23] MEDS ORDERED: DEXTROSE 50% SYRINGE 50 ML IVP STA (07:19)
[2020-03-23 07:37] LABS: Glucose,Whole Blood 137 mg/dL (75-99)
[2020-03-23] MEDS: DULoxetine HCL 30 MG CAPSULE.DR PO SCH (08:26)
[2020-03-23] MEDS: FERROUS SULFATE 325 MG TAB PO SCH (08:26)
[2020-03-23] MEDS: FAMOTIDINE 20 MG TAB PO SCH (08:26)
[2020-03-23] MEDS: METOCLOPRAMIDE 5 MG TAB PO SCH ×3 (08:26→19:44)
[2020-03-23] MEDS: ATORVASTATIN 20 MG TAB PO SCH (08:26)
[2020-03-23] MEDS: CLOPIDOGREL 75 MG TAB PO SCH (08:26)
[2020-03-23] MEDS: ASCORBIC ACID 500 MG TAB PO SCH (08:26)
[2020-03-23] MEDS: ASPIRIN 81 MG PO SCH (08:26)
[2020-03-23] MEDS: ENOXAPARIN 40 MG/0.4 ML SYRINGE SQ SCH (08:27)
[2020-03-23] MEDS: INSULIN ASPART (NovoLOG) 100 UNIT/ML VIAL SQ SCH ×3 (08:27→17:58)
[2020-03-23] MEDS: LOSARTAN 50 MG TAB PO SCH (08:27)
[2020-03-23] MEDS: CALCIUM CARB-VIT D 500MG-200UN 1 EACH TAB PO SCH ×2 (08:27→18:03)
[2020-03-23 10:05] LABS: African American GFR (CKD) 93.5 (60.0-200.0); Albumin 2.7 g/dL (3.80-4.90); Anion Gap 6.1 mmol/L (4.00-12.00); BUN/Creat Ratio 17.5 Ratio (12.00-20.00); Calcium 8.3 mg/dL (8.7-10.3); Carbon Dioxide 30.9 mmol/L (21.6-31.8); Globulin 2.7 g/dL (1.6-3.3); Total Bilirubin 0.1 mg/dL (0.2-1.2); Total Protein 5.4 g/dL (6.2-8.2)
[2020-03-23] MEDS: ALPRAZolam 1 MG TAB PO PRN ×2 (10:15→19:43)
[2020-03-23 12:15] LABS: Glucose,Whole Blood 160 mg/dL (75-99)
--- NOTE | 2020-03-23 13:48 | P.PN ---
Subjective Progress Note Date: 03/23/20 Melva Jackson, is a 59-year-old female patient well-known to my services. Patient was recently discharged she was admitted to the hospital for DKA and pneumonia. Patient has underlying history of diabetes mellitus type 1 which is a brittle diabetic. Lantus was decreased upon discharge. Additional medical history includes stroke and seizures. She was discharged home with her sister. According to ER report patient was found to have a low blood sugar with altered mental status changes. Blood sugar was corrected and alt mental status changes recovered. There is questionable compliance with diet. Consult placed for possible ECF placement on discharge. Chest x-ray was completed showing no ac tive cardiopulmonary disease. There is almost complete clearing of the right side patchy pulmonary infiltrate compared to old exam. We'll continue to monitor blood sugar closely and make adjustments to home medication . On 03/16/2020 patient was seen and examined on the medical floor she is alert and oriented 3 in no distress there is no fever or chills no headache or dizziness no chest pain no shortness of breath no cough no nausea or vomiting no abdominal pain no diarrhea no blood in the stools no burning with urination no frequency or urgency and no hematuria glucose levels are much better controlled today she is receiving Levemir 10 units at bedtime and sliding scale before meals On 03/17/2020 patient was seen and examined on the medical floor she is alert and oriented 3 in no distress there is no fever or chills no headache or dizziness no chest pain no shortness of breath no cough no nausea or vomiting no abdominal pain no diarrhea no blood in the stools no burning with urination no frequency or urgency and no hematuria. Patient to glucose level is still fluctuating she was 88 before breakfast this morning no short-acting insulin was given patient was given breakfast her glucose level was 464 before lunch she is being given 8 units of NovoLog before lunch will continue to monitor and adjust insulin, possible transfer to rehab tomorrow. On 03/18/2020 patient was seen and examined on the medical floor she is alert and oriented in no distress, glucose levels are better controlled however this morning patient had another episode of hypoglycemia, at this time will decrease Levemir dose to 8 units daily and continue was NovoLog before meals, and give a bedtime snack, but no short-acting insulin at bedtime. On 03/19/2020 patient was seen and examined on the medical floor she is alert and oriented 3 in no apparent distress she had significantly elevated glucose level of 600 this morning, otherwise she denies any complaints at this point will increase Levemir again to 10 units at bedtime, avoid NovoLog before bedtime, and give NovoLog only before meals will continue to monitor glucose level and adjust insulin accordingly On 03/20/2020 Patient is more sleepy today. Blood sugar in the 400's this AM. corrected per scale. Will continue to monitor for the next 24-48 hours. Denies any specific complaints On 03/21/2020 patient was seen and examined on the medical floor she is somnolent, arousable for a few seconds and she returns to sleep, she was up all night very agitated and screaming, she received IV Ativan and IM Haldol, consultation for psychiatry and neurology were initiated in that regard, otherwise no events since yesterday glucose level is better controlled. On 03/22/2020 patient was seen and examined on the medical floor she is somn olent arousable in no apparent distress she has been evaluated by psychiatry and neurology medications are being adjusted she was started on IV fluid due to mild dehydration On 03/23/2020 patient was seen and examined on the medical floor she is more alert today she was able to tolerate her breakfast well glucose was very low this morning she received half an amp of D50 otherwise she denies any complaints at this time Objective - Vital Signs Vital signs: Vital Signs Temp 98.0 F 03/23/20 04:49 Pulse 80 03/23/20 04:49 Resp 16 03/23/20 04:49 BP 111/70 03/23/20 04:49 Pulse Ox 92 L 03/23/20 04:49 Intake & Output 03/22/20 03/23/20 03/23/20 18:59 06:59 18:59 Intake Total 540 475 Balance 540 475 Intake: Intake, IV Titration 225 Amount Sodium Chloride 0.9% 1, 225 000 ml @ 75 mls/hr IV . [id number] [facility] Rx#:[id number] Oral 540 250 Other: Voiding Method Diaper Diaper Diaper Incontinent Incontinent Incontinent # Voids 3 3 1 - Exam Head normocephalic and atraumatic Neck supple no JVD no goiter Lungs clear to auscultation bilaterally no wheezing or crackles Heart regular rate and rhythm S1-S2, no rub or gallop Abdomen is soft nontender nondistended positive bowel sounds no hepatosplenomegaly Extremities no edema no cyanosis or clubbing Neuro alert and orientated to 3 - Labs CBC & Chem 7: 03/23/20 05:57 03/23/20 05:57 Labs: Abnormal Lab Results - Last 24 Hours (Table) 03/22/20 03/22/20 03/23/20 Range/Units 17:24 22:09 03:35 RBC (3.80-5.40) m/uL Hgb (11.4-16.0) gm/dL Hct (34.0-46.0) % RDW (11.5-15.5) % Sodium (135-145) mmol/L Glucose (70-110) mg/dL POC Glucose (mg/dL) 293 H 140 H 69 L (75-99) mg/dL Calcium (8.7-10.3) mg/dL Total Bilirubin (0.2-1.2) mg/dL AST (13-35) U/L ALT (8-44) U/L Alkaline Phosphatase (41-126) U/L Total Protein (6.2-8.2) g/dL Albumin (3.80-4.90) g/dL Albumin/Globulin Ratio (1.60-3.17) g/dL 03/23/20 03/23/20 03/23/20 Range/Units 05:57 05:57 07:13 RBC 2.91 L (3.80-5.40) m/uL Hgb 8.8 L (11.4-16.0) gm/dL Hct 28.3 L (34.0-46.0) % RDW 16.2 H (11.5-15.5) % Sodium 146 H (135-145) mmol/L Glucose 39 L* (70-110) mg/dL POC Glucose (mg/dL) 37 L (75-99) mg/dL Calcium 8.3 L (8.7-10.3) mg/dL Total Bilirubin 0.1 L (0.2-1.2) mg/dL AST 39 H (13-35) U/L ALT 61 H (8-44) U/L Alkaline Phosphatase 174 H (41-126) U/L Total Protein 5.4 L (6.2-8.2) g/dL Albumin 2.70 L (3.80-4.90) g/dL Albumin/Globulin Ratio 1.00 L (1.60-3.17) g/dL 03/23/20 03/23/20 03/23/20 Range/Units 07:15 07:34 12:13 RBC (3.80-5.40) m/uL Hgb (11.4-16.0) gm/dL Hct (34.0-46.0) % RDW (11.5-15.5) % Sodium (135-145) mmol/L Glucose (70-110) mg/dL POC Glucose (mg/dL) 34 L 137 H 160 H (75-99) mg/dL Calcium (8.7-10.3) mg/dL Total Bilirubin (0.2-1.2) mg/dL AST (13-35) U/L ALT (8-44) U/L Alkaline Phosphatase (41-126) U/L Total Protein (6.2-8.2) g/dL Albumin (3.80-4.90) g/dL Albumin/Globulin Ratio (1.60-3.17) g/dL Assessment and Plan Plan: 1. Altered mental status is with hypoglycemia. Hypoglycemia was corrected altered mental status changes have resolved 2. Diabetes mellitus type 1. Patient is known to be a brittle diabetic with fluctuating blood sugars 3. Recent hospitalization for pneumonia. Chest x-ray completed showing improvement 4. History of seizures. Patient was evaluated by neurology services and medications adjusted during previous day 5. History of stroke 6. Essential hypertension 7. History of hyperlipidemia. Patient obtained on statin 8. History of COPD no exacerbation at this time 9. History of coronary artery disease 10. History of peripheral vascular disease with previous history of multiple toe amputations 11. Iron deficiency anemia 12. Episodes of agitation and screaming, patient received Haldol and Ativan, psychiatry and neurology consultation requested DVT prophylaxis Lovenox. GI prophylaxis Pepcid PT OT consulted for possible ECF placement
[2020-03-23 17:06] LABS: Glucose,Whole Blood 110 mg/dL (75-99)
[2020-03-23] MEDS: HYDROcodone/APAP 10-325MG 1 EACH TAB PO PRN (19:43)
[2020-03-23 19:51] LABS: Glucose,Whole Blood 447 mg/dL (75-99)
[2020-03-23] MEDS: QUEtiapine 50 MG TAB PO SCH (21:29)
[2020-03-23] MEDS: INSULIN DETEMIR (LEVEMIR) 100 UNIT/ML SYR SQ SCH (21:29)
[2020-03-24] MEDS: DEXTROSE 5%-0.45% NACL 1,000 ML IV SCH ×2 (00:09→22:39)
[2020-03-24 02:18] LABS: Glucose,Whole Blood 447 mg/dL (75-99)
[2020-03-24] MEDS: LACOSAMIDE IV 150 MG in SODIUM CHLORIDE 0.9% 50 ML IVPB SCH ×2 (02:30→13:35)
[2020-03-24] MEDS: VALPROATE SODIUM 250 MG in SODIUM CHLORIDE 0.9% 100 ML IVPB SCH ×3 (04:16→20:10)
[2020-03-24 04:54] LABS: Glucose,Whole Blood 315 mg/dL (75-99)
[2020-03-24 06:50] LABS: Anisocytosis Slight; HCT 25.8 % (34.0-46.0); HGB 8.2 gm/dL (11.4-16.0); Hypochromasia Moderate; MCH 31.2 pg (25.0-35.0); MCHC 31.9 g/dL (31.0-37.0); MCV 97.9 fL (80.0-100.0); Macrocytosis Slight; Mean Platelet Volume 7.6; Platelet Count 158 k/uL (150-450); RBC 2.64 m/uL (3.80-5.40); WBC 2.2 k/uL (3.8-10.6)
[2020-03-24 07:03] LABS: Lymphocytes # (M) 1.41 k/uL (1.0-4.8); Monocytes # (M) 0.22 k/uL (0-1.0); Neutrophils # (M) 0.57 k/uL (1.3-7.7); Neutrophils % (M) 26 %; Nucleated Red Blood Cells 0 /100 WBC (0-0); Total Cells Counted 100
[2020-03-24 07:17] LABS: Glucose,Whole Blood 207 mg/dL (75-99)
[2020-03-24] MEDS: ASPIRIN 81 MG PO SCH (08:43)
[2020-03-24] MEDS: CLOPIDOGREL 75 MG TAB PO SCH (08:43)
[2020-03-24] MEDS: INSULIN ASPART (NovoLOG) 100 UNIT/ML VIAL SQ SCH ×3 (08:43→17:39)
[2020-03-24] MEDS: CALCIUM CARB-VIT D 500MG-200UN 1 EACH TAB PO SCH ×2 (08:43→17:39)
[2020-03-24] MEDS: FERROUS SULFATE 325 MG TAB PO SCH (08:43)
[2020-03-24] MEDS: LOSARTAN 50 MG TAB PO SCH (08:43)
[2020-03-24] MEDS: DULoxetine HCL 30 MG CAPSULE.DR PO SCH (08:43)
[2020-03-24] MEDS: ASCORBIC ACID 500 MG TAB PO SCH (08:43)
[2020-03-24] MEDS: ATORVASTATIN 20 MG TAB PO SCH (08:44)
[2020-03-24] MEDS: ENOXAPARIN 40 MG/0.4 ML SYRINGE SQ SCH (08:44)
[2020-03-24] MEDS: HYDROcodone/APAP 10-325MG 1 EACH TAB PO PRN (08:44)
[2020-03-24] MEDS: FAMOTIDINE 20 MG TAB PO SCH (08:44)
[2020-03-24] MEDS: METOCLOPRAMIDE 5 MG TAB PO SCH ×3 (08:44→17:39)
[2020-03-24 09:52] LABS: African American GFR (CKD) 81.1 (60.0-200.0); Albumin 2.7 g/dL (3.80-4.90); Albumin/Globulin Ratio 1.13 (1.60-3.17); Anion Gap 4.2 mmol/L (4.00-12.00); BUN/Creat Ratio 18.89 Ratio (12.00-20.00); Carbon Dioxide 32.8 mmol/L (21.6-31.8); Globulin 2.4 g/dL (1.6-3.3); Potassium 4.2 mmol/L (3.5-5.5); Total Bilirubin 0.1 mg/dL (0.3-1.2); Total Protein 5.1 g/dL (6.2-8.2)
--- NOTE | 2020-03-24 10:36 | P.PN ---
Subjective Progress Note Date: 03/24/20 Melva Jackson, is a 59-year-old female patient well-known to my services. Patient was recently discharged she was admitted to the hospital for DKA and pneumonia. Patient has underlying history of diabetes mellitus type 1 which is a brittle diabetic. Lantus was decreased upon discharge. Additional medical history includes stroke and seizures. She was discharged home with her sister. According to ER report patient was found to have a low blood sugar with altered mental status changes. Blood sugar was corrected and alt mental status changes recovered. There is questionable compliance with diet. Consult placed for possible ECF placement on discharge. Chest x-ray was completed showing no act finesse cardiopulmonary disease. There is almost complete clearing of the right side patchy pulmonary infiltrate compared to old exam. We'll continue to monitor blood sugar closely and make adjustments to home medication . On 03/16/2020 patient was seen and examined on the medical floor she is alert and oriented 3 in no distress there is no fever or chills no headache or dizziness no chest pain no shortness of breath no cough no nausea or vomiting no abdominal pain no diarrhea no blood in the stools no burning with urination no frequency or urgency and no hematuria glucose levels are much better controlled today she is receiving Levemir 10 units at bedtime and sliding scale before meals On 03/17/2020 patient was seen and examined on the medical floor she is alert and oriented 3 in no distress there is no fever or chills no headache or dizziness no chest pain no shortness of breath no cough no nausea or vomiting no abdominal pain no diarrhea no blood in the stools no burning with urination no frequency or urgency and no hematuria. Patient to glucose level is still fluctuating she was 88 before breakfast this morning no short-acting insulin was given patient was given breakfast her glucose level was 464 before lunch she is being given 8 units of NovoLog before lunch will continue to monitor and adjust insulin, possible transfer to rehab tomorrow. On 03/18/2020 patient was seen and examined on the medical floor she is alert and oriented in no distress, glucose levels are better controlled however this morning patient had another episode of hypoglycemia, at this time will decrease Levemir dose to 8 units daily and continue was NovoLog before meals, and give a bedtime snack, but no short-acting insulin at bedtime. On 03/19/2020 patient was seen and examined on the medical floor she is alert and oriented 3 in no apparent distress she had significantly elevated glucose level of 600 this morning, otherwise she denies any complaints at this point will increase Levemir again to 10 units at bedtime, avoid NovoLog before bedtime, and give NovoLog only before meals will continue to monitor glucose level and adjust insulin accordingly On 03/20/2020 Patient is more sleepy today. Blood sugar in the 400's this AM. corrected per scale. Will continue to monitor for the next 24-48 hours. Denies any specific complaints On 03/21/2020 patient was seen and examined on the medical floor she is somnolent, arousable for a few seconds and she returns to sleep, she was up all night very agitated and screaming, she received IV Ativan and IM Haldol, consultation for psychiatry and neurology were initiated in that regard, otherwise no events since yesterday glucose level is better controlled. On 03/22/2020 patient was seen and examined on the medical floor she is somno lent arousable in no apparent distress she has been evaluated by psychiatry and neurology medications are being adjusted she was started on IV fluid due to mild dehydration On 03/23/2020 patient was seen and examined on the medical floor she is more alert today she was able to tolerate her breakfast well glucose was very low this morning she received half an amp of D50 otherwise she denies any complaints at this time On 03/24/2020 patient is currently resting comfortably in bed. Per nursing s taff patient is more alert and less agitated today. Patient is currently resting comfortably in bed does wake up follow commands. Blood sugar this a.m. 252 corrected per scale. Patient maintained on IV Depacon per neurology psychiatry meds also adjusted per psychiatry services. Objective - Vital Signs Vital signs: Vital Signs Temp 98.0 F 03/24/20 05:00 Pulse 60 03/24/20 05:00 Resp 16 03/24/20 05:00 BP 99/64 03/24/20 05:00 Pulse Ox 95 03/24/20 05:00 Intake & Output 03/23/20 03/24/20 03/24/20 18:59 06:59 18:59 Other: Voiding Method Diaper Diaper Incontinent Incontinent # Voids 2 2 # Bowel Movements 1 - Exam Head normocephalic and atraumatic Neck supple no JVD no goiter Lungs clear to auscultation bilaterally no wheezing or crackles Heart regular rate and rhythm S1-S2, no rub or gallop Abdomen is soft nontender nondistended positive bowel sounds no hepatosplenomegaly Extremities no edema no cyanosis or clubbing Neuro alert and orientated to 3. sleepy - Labs CBC & Chem 7: 03/24/20 06:07 03/24/20 06:07 Labs: Abnormal Lab Results - Last 24 Hours (Table) 03/23/20 03/23/20 03/23/20 Range/Units 12:13 17:04 19:49 WBC (3.8-10.6) k/uL RBC (3.80-5.40) m/uL Hgb (11.4-16.0) gm/dL Hct (34.0-46.0) % RDW (11.5-15.5) % Neutrophils # (Manual) (1.3-7.7) k/uL Carbon Dioxide (21.6-31.8) mmol/L Glucose (70-110) mg/dL POC Glucose (mg/dL) 160 H 110 H 447 H (75-99) mg/dL Total Bilirubin (0.3-1.2) mg/dL Alkaline Phosphatase (41-126) U/L Total Protein (6.2-8.2) g/dL Albumin (3.80-4.90) g/dL Albumin/Globulin Ratio (1.60-3.17) g/dL 03/24/20 03/24/20 03/24/20 Range/Units 02:15 04:53 06:07 WBC 2.2 L (3.8-10.6) k/uL RBC 2.64 L (3.80-5.40) m/uL Hgb 8.2 L (11.4-16.0) gm/dL Hct 25.8 L (34.0-46.0) % RDW 16.0 H (11.5-15.5) % Neutrophils # (Manual) 0.57 L (1.3-7.7) k/uL Carbon Dioxide (21.6-31.8) mmol/L Glucose (70-110) mg/dL POC Glucose (mg/dL) 447 H 315 H (75-99) mg/dL Total Bilirubin (0.3-1.2) mg/dL Alkaline Phosphatase (41-126) U/L Total Protein (6.2-8.2) g/dL Albumin (3.80-4.90) g/dL Albumin/Globulin Ratio (1.60-3.17) g/dL 03/24/20 03/24/20 Range/Units 06:07 07:11 WBC (3.8-10.6) k/uL RBC (3.80-5.40) m/uL Hgb (11.4-16.0) gm/dL Hct (34.0-46.0) % RDW (11.5-15.5) % Neutrophils # (Manual) (1.3-7.7) k/uL Carbon Dioxide 32.8 H (21.6-31.8) mmol/L Glucose 252 H (70-110) mg/dL POC Glucose (mg/dL) 207 H (75-99) mg/dL Total Bilirubin 0.1 L (0.3-1.2) mg/dL Alkaline Phosphatase 152 H (41-126) U/L Total Protein 5.1 L (6.2-8.2) g/dL Albumin 2.70 L (3.80-4.90) g/dL Albumin/Globulin Ratio 1.13 L (1.60-3.17) g/dL Assessment and Plan Assessment: 1. Altered mental status is with hypoglycemia. Hypoglycemia was corrected altered mental status changes have resolved 2. Diabetes mellitus type 1. Patient is known to be a brittle diabetic with fluctuating blood sugars 3. Recent hospitalization for pneumonia. Chest x-ray completed showing improvement 4. History of seizures. Neurology services are following 5. History of stroke 6. Essential hypertension 7. History of hyperlipidemia. Patient obtained on statin 8. History of COPD no exacerbation at this time 9. History of coronary artery disease 10. History of peripheral vascular disease with previous history of multiple toe amputations 11. Iron deficiency anemia 12. Episodes of agitation and screaming, patient received Haldol and Ativan, p sychiatry and neurology consultation requested. DVT prophylaxis Lovenox. GI prophylaxis Pepcid PT OT consulted for possible ECF placement I performed an examination of the patient and discussed their management with the Nurse Practitioner. I have reviewed the Nurse Practitioner's notes and agr ee with the documented findings and plan of care
[2020-03-24] MEDS: ALPRAZolam 1 MG TAB PO PRN (11:06)
[2020-03-24 11:47] LABS: Glucose,Whole Blood 154 mg/dL (75-99)
[2020-03-24 17:28] LABS: Glucose,Whole Blood 172 mg/dL (75-99)
[2020-03-24 20:05] LABS: Glucose,Whole Blood 145 mg/dL (75-99)
[2020-03-24] MEDS: QUEtiapine 50 MG TAB PO SCH (20:10)
[2020-03-24] MEDS: INSULIN DETEMIR (LEVEMIR) 100 UNIT/ML SYR SQ SCH (22:37)
[2020-03-24 22:42] LABS: Glucose,Whole Blood 236 mg/dL (75-99)
[2020-03-25 00:56] LABS: Glucose,Whole Blood 336 mg/dL (75-99)
[2020-03-25] MEDS ORDERED: SODIUM CHLORIDE 0.9% 500 ML 250 ML IV ONE (01:15)
[2020-03-25] MEDS: METOPROLOL TARTRATE 12.5 MG TAB PO SCH ×3 (01:31→20:32)
[2020-03-25] MEDS: LACOSAMIDE IV 150 MG in SODIUM CHLORIDE 0.9% 50 ML IVPB SCH ×2 (01:56→16:00)
[2020-03-25] MEDS: ALPRAZolam 0.5 MG TAB PO PRN (02:02)
[2020-03-25 02:29] LABS: Glucose,Whole Blood 297 mg/dL (75-99)
[2020-03-25] MEDS: VALPROATE SODIUM 250 MG in SODIUM CHLORIDE 0.9% 100 ML IVPB SCH ×3 (03:39→20:32)
[2020-03-25 05:57] LABS: Anisocytosis Slight; Basophils % (A) 0 %; Eosinophils % (A) 1 %; HCT 29.4 % (34.0-46.0); HGB 9.1 gm/dL (11.4-16.0); Hypochromasia Marked; Lymphocytes # (A) 1.4 k/uL (1.0-4.8); Lymphocytes % (A) 17 %; MCH 30.6 pg (25.0-35.0); MCHC 30.8 g/dL (31.0-37.0); MCV 99.4 fL (80.0-100.0); Macrocytosis Slight; Mean Platelet Volume 8.7; Monocytes # (A) 0.6 k/uL (0-1.0); Monocytes % (A) 7 %; Neutrophils # (A) 6.2 k/uL (1.3-7.7); Neutrophils % (A) 74 %; Platelet Count 167 k/uL (150-450); RBC 2.96 m/uL (3.80-5.40); RDW 16.2 % (11.5-15.5); WBC 8.4 k/uL (3.8-10.6)
[2020-03-25 06:02] LABS: Glucose,Whole Blood 263 mg/dL (75-99)
[2020-03-25 07:07] LABS: Glucose,Whole Blood 211 mg/dL (75-99)
[2020-03-25] MEDS: INSULIN ASPART (NovoLOG) 100 UNIT/ML VIAL SQ SCH ×3 (08:28→17:33)
[2020-03-25] MEDS: ENOXAPARIN 40 MG/0.4 ML SYRINGE SQ SCH (08:28)
[2020-03-25] MEDS: FAMOTIDINE 20 MG TAB PO SCH (08:29)
[2020-03-25] MEDS: ASPIRIN 81 MG PO SCH (08:29)
[2020-03-25] MEDS: FERROUS SULFATE 325 MG TAB PO SCH (08:29)
[2020-03-25] MEDS: METOCLOPRAMIDE 5 MG TAB PO SCH ×3 (08:29→17:33)
[2020-03-25] MEDS: CALCIUM CARB-VIT D 500MG-200UN 1 EACH TAB PO SCH ×2 (08:29→17:33)
[2020-03-25] MEDS: ASCORBIC ACID 500 MG TAB PO SCH (08:29)
[2020-03-25] MEDS: ATORVASTATIN 20 MG TAB PO SCH (08:29)
[2020-03-25] MEDS: DULoxetine HCL 30 MG CAPSULE.DR PO SCH (08:30)
[2020-03-25] MEDS: LOSARTAN 50 MG TAB PO SCH (08:30)
[2020-03-25] MEDS: CLOPIDOGREL 75 MG TAB PO SCH (08:30)
[2020-03-25 09:46] LABS: Non-African American GFR(CKD) 80.7 (60.0-200.0)
[2020-03-25] MEDS: HYDROcodone/APAP 10-325MG 1 EACH TAB PO PRN (09:56)
[2020-03-25] MEDS: QUEtiapine 25 MG TAB PO SCH (10:48)
[2020-03-25 11:41] LABS: Glucose,Whole Blood 81 mg/dL (75-99)
[2020-03-25 11:42] VITALS: RESP 18
--- NOTE | 2020-03-25 12:02 | P.PN ---
Progress Note - Text Progress Note Date: 03/25/20 Identifying Data: This patient is a 59 female with a significant history of IDDM, DKA, CVAs with left-sided paralysis, seizure disorder, hypothyroidism, and CAD was admitted on 03/15/2020 with mental status changes and hyperglycemia. Interval History: Patient was seen in bed and was arousable and was able to engage in the Psychiatric interview. Patient is reporting no significant depression or anxiety at this time. She denies any suicidal or homicidal ideation, intention, and/or plan. She expresses no auditory or visual hallucinations. She denies any paranoia. She has been noted by staff to yell intermittently but this behavior has decreased significantly. Staff note that the addition of seroquel in the morning has helped her calm down be less agitated. She is currently calm and maintains eye contact and speaks in a low tone of voice. She is not endorsing any pain at this time and does not appear in any acute distress. Mental Status Exam: General Appearance: Patient appears older than her stated age, thin and frail. Dressed in a hospital gown. Behavior: Patient psychomotor activity is slow. Eye contact is maintained. No abnormal or stereotypic behaviors noted. Speech: Patient's speech is low in volume, nonspontaneous, minimal. Mood/Affect: Mood is "okay.", affect is blunted. Suicidality/Homicidality: Denies SI or HI. Perceptions: Denies [facility] Though content/process: Linear and logical in short conversation. Memory and concentration: The patient is alert and oriented to person and place only. Concentration is poor. Judgment and insight: Poor Assessment Altered Mental Status with hypoglycemia Psychosis, unspecified Plan: -We will make no medication changes at this time. Continue Seroquel 25 mg by mouth in the morning, 50 mg by mouth at bedtime Cymbalta 30 mg by mouth daily Haldol/Ativan when necessary, Xanax when necessary. -Depacon as per Neurology -Delirium precautions recommended with patient including - avoiding use of narcotics and [employer] sedatives, limit anticholinergic medications when possible, frequent reorientation, minimize use of restraints, open window shades during the day and close them at night - Psychiatry will sign off at this time. Please contact if any questions.
[2020-03-25 13:50] LABS: African American GFR (CKD) 63.6 (60.0-200.0); Albumin 2.7 g/dL (3.80-4.90); Albumin/Globulin Ratio 1.08 (1.60-3.17); Anion Gap 7.7 mmol/L (4.00-12.00); BUN/Creat Ratio 14.55 Ratio (12.00-20.00); Calcium 8.8 mg/dL (8.7-10.3); Carbon Dioxide 27.3 mmol/L (21.6-31.8); Globulin 2.5 g/dL (1.6-3.3); Non-African American GFR(CKD) 54.9 (60.0-200.0); Potassium 5.5 mmol/L (3.5-5.5); Total Bilirubin 0.1 mg/dL (0.3-1.2); Total Protein 5.2 g/dL (6.2-8.2)
[2020-03-25 17:15] LABS: Glucose,Whole Blood 324 mg/dL (75-99)
--- NOTE | 2020-03-25 17:51 | P.PN ---
Subjective Progress Note Date: 03/25/20 Melva Jackson, is a 59-year-old female patient well-known to my services. Patient was recently discharged she was admitted to the hospital for DKA and pneumonia. Patient has underlying history of diabetes mellitus type 1 which is a brittle diabetic. Lantus was decreased upon discharge. Additional medical history includes stroke and seizures. She was discharged home with her sister. According to ER report patient was found to have a low blood sugar with altered mental status changes. Blood sugar was corrected and alt mental status changes recovered. There is questionable compliance with diet. Consult placed for possible ECF placement on discharge. Chest x-ray was completed showing no ac tive cardiopulmonary disease. There is almost complete clearing of the right side patchy pulmonary infiltrate compared to old exam. We'll continue to monitor blood sugar closely and make adjustments to home medication . On 03/16/2020 patient was seen and examined on the medical floor she is alert and oriented 3 in no distress there is no fever or chills no headache or dizziness no chest pain no shortness of breath no cough no nausea or vomiting no abdominal pain no diarrhea no blood in the stools no burning with urination no frequency or urgency and no hematuria glucose levels are much better controlled today she is receiving Levemir 10 units at bedtime and sliding scale before meals On 03/17/2020 patient was seen and examined on the medical floor she is alert and oriented 3 in no distress there is no fever or chills no headache or dizziness no chest pain no shortness of breath no cough no nausea or vomiting no abdominal pain no diarrhea no blood in the stools no burning with urination no frequency or urgency and no hematuria. Patient to glucose level is still fluctuating she was 88 before breakfast this morning no short-acting insulin was given patient was given breakfast her glucose level was 464 before lunch she is being given 8 units of NovoLog before lunch will continue to monitor and adjust insulin, possible transfer to rehab tomorrow. On 03/18/2020 patient was seen and examined on the medical floor she is alert and oriented in no distress, glucose levels are better controlled however this morning patient had another episode of hypoglycemia, at this time will decrease Levemir dose to 8 units daily and continue was NovoLog before meals, and give a bedtime snack, but no short-acting insulin at bedtime. On 03/19/2020 patient was seen and examined on the medical floor she is alert and oriented 3 in no apparent distress she had significantly elevated glucose level of 600 this morning, otherwise she denies any complaints at this point will increase Levemir again to 10 units at bedtime, avoid NovoLog before bedtime, and give NovoLog only before meals will continue to monitor glucose level and adjust insulin accordingly On 03/20/2020 Patient is more sleepy today. Blood sugar in the 400's this AM. corrected per scale. Will continue to monitor for the next 24-48 hours. Denies any specific complaints On 03/21/2020 patient was seen and examined on the medical floor she is somnolent, arousable for a few seconds and she returns to sleep, she was up all night very agitated and screaming, she received IV Ativan and IM Haldol, consultation for psychiatry and neurology were initiated in that regard, otherwise no events since yesterday glucose level is better controlled. On 03/22/2020 patient was seen and examined on the medical floor she is somn olent arousable in no apparent distress she has been evaluated by psychiatry and neurology medications are being adjusted she was started on IV fluid due to mild dehydration On 03/23/2020 patient was seen and examined on the medical floor she is more alert today she was able to tolerate her breakfast well glucose was very low this morning she received half an amp of D50 otherwise she denies any complaints at this time. On 03/24/2020 patient is currently resting comfortably in bed. Per nursing staff patient is more alert and less agitated today. Patient is currently resting comfortably in bed does wake up follow commands. Blood sugar this a.m. 252 corrected per scale. Patient maintained on IV Depacon per neurology psychiatry meds also adjusted per psychiatry services. On 1026 and on the medical floor at this time she is somnolent responsive to stimuli, in no apparent distress, earlier she had episodes of agitation and screaming, recommendation from neurology and psychiatry reviewed currently she is maintained on Seroquel 25 mg in a.m. and 50 mg in p.m., Reglan dose was decreased to 5 mg 3 times daily before meals, if patient is tolerating well Will attempt to discontinue Reglan, she is receiving [place] and Xanax on a when necessary basis, at this time will discontinue Haldol when necessary and monitor, hopefully patient will be ready for transfer to a nursing facility so on. Objective - Vital Signs Vital signs: Vital Signs Temp 98.1 F 03/25/20 05:00 Pulse 89 03/25/20 11:03 Resp 18 03/25/20 11:03 BP 129/60 03/25/20 11:03 Pulse Ox 96 03/25/20 11:03 Intake & Output 03/24/20 03/25/20 03/25/20 18:59 06:59 18:59 Intake Total 250 Balance 250 Weight 58.967 kg Intake: Intake, IV Titration 250 Amount Valproate Sodium 250 mg 250 In Sodium Chloride 0.9% 100 ml @ 100 mls/hr IVPB Q8H [facility] Rx#:[id number] Other: Voiding Method Diaper Diaper Diaper Incontinent Incontinent Incontinent # Voids 3 1 1 # Bowel Movements 1 - Exam Head normocephalic and atraumatic Neck supple no JVD no goiter Lungs clear to auscultation bilaterally no wheezing or crackles Heart regular rate and rhythm S1-S2, no rub or gallop Abdomen is soft nontender nondistended positive bowel sounds no hepatosplenomegaly Extremities no edema no cyanosis or clubbing Neuro alert and orientated to 3 - Labs CBC & Chem 7: 03/25/20 05:35 03/25/20 05:35 Labs: Abnormal Lab Results - Last 24 Hours (Table) 03/23/20 03/24/20 03/24/20 Range/Units 05:57 20:04 22:27 RBC (3.80-5.40) m/uL Hgb (11.4-16.0) gm/dL Hct (34.0-46.0) % MCHC (31.0-37.0) g/dL RDW (11.5-15.5) % Est GFR (CKD-EPI)NonAf (60.0-200.0) Glucose 39 L* (70-110) mg/dL POC Glucose (mg/dL) 145 H 236 H (75-99) mg/dL Total Bilirubin (0.3-1.2) mg/dL Alkaline Phosphatase (41-126) U/L Total Protein (6.2-8.2) g/dL Albumin (3.80-4.90) g/dL Albumin/Globulin Ratio (1.60-3.17) g/dL 03/25/20 03/25/20 03/25/20 Range/Units 00:54 02:28 05:35 RBC 2.96 L (3.80-5.40) m/uL Hgb 9.1 L (11.4-16.0) gm/dL Hct 29.4 L (34.0-46.0) % MCHC 30.8 L (31.0-37.0) g/dL RDW 16.2 H (11.5-15.5) % Est GFR (CKD-EPI)NonAf (60.0-200.0) Glucose (70-110) mg/dL POC Glucose (mg/dL) 336 H 297 H (75-99) mg/dL Total Bilirubin (0.3-1.2) mg/dL Alkaline Phosphatase (41-126) U/L Total Protein (6.2-8.2) g/dL Albumin (3.80-4.90) g/dL Albumin/Globulin Ratio (1.60-3.17) g/dL 03/25/20 03/25/20 03/25/20 Range/Units 05:35 06:00 06:52 RBC (3.80-5.40) m/uL Hgb (11.4-16.0) gm/dL Hct (34.0-46.0) % MCHC (31.0-37.0) g/dL RDW (11.5-15.5) % Est GFR (CKD-EPI)NonAf 54.9 L (60.0-200.0) Glucose 236 H (70-110) mg/dL POC Glucose (mg/dL) 263 H 211 H (75-99) mg/dL Total Bilirubin 0.1 L (0.3-1.2) mg/dL Alkaline Phosphatase 133 H (41-126) U/L Total Protein 5.2 L (6.2-8.2) g/dL Albumin 2.70 L (3.80-4.90) g/dL Albumin/Globulin Ratio 1.08 L (1.60-3.17) g/dL 03/25/20 Range/Units 17:09 RBC (3.80-5.40) m/uL Hgb (11.4-16.0) gm/dL Hct (34.0-46.0) % MCHC (31.0-37.0) g/dL RDW (11.5-15.5) % Est GFR (CKD-EPI)NonAf (60.0-200.0) Glucose (70-110) mg/dL POC Glucose (mg/dL) 324 H (75-99) mg/dL Total Bilirubin (0.3-1.2) mg/dL Alkaline Phosphatase (41-126) U/L Total Protein (6.2-8.2) g/dL Albumin (3.80-4.90) g/dL Albumin/Globulin Ratio (1.60-3.17) g/dL Assessment and Plan Plan: 1. Altered mental status is with hypoglycemia. Hypoglycemia was corrected altered mental status changes have resolved 2. Diabetes mellitus type 1. Patient is known to be a brittle diabetic with fluctuating blood sugars 3. Recent hospitalization for pneumonia. Chest x-ray completed showing improvement 4. History of seizures. Patient was evaluated by neurology services and medications adjusted during previous day 5. History of stroke 6. Essential hypertension 7. History of hyperlipidemia. Patient obtained on statin 8. History of COPD no exacerbation at this time 9. History of coronary artery disease 10. History of peripheral vascular disease with previous history of multiple toe amputations 11. Iron deficiency anemia 12. Episodes of agitation and screaming, patient received Haldol and Ativan, psychiatry and neurology consultation requested DVT prophylaxis Lovenox. GI prophylaxis Pepcid PT OT consulted for possible ECF placement
[2020-03-25] MEDS: QUEtiapine 50 MG TAB PO SCH (20:33)
[2020-03-25] MEDS: INSULIN DETEMIR (LEVEMIR) 100 UNIT/ML SYR SQ SCH (20:33)
[2020-03-25 20:50] LABS: Glucose,Whole Blood 202 mg/dL (75-99)
[2020-03-26 00:16] LABS: Glucose,Whole Blood 322 mg/dL (75-99)
[2020-03-26] MEDS: DEXTROSE 5%-0.45% NACL 1,000 ML IV SCH (00:31)
[2020-03-26] MEDS: ALPRAZolam 0.5 MG TAB PO PRN (01:46)
[2020-03-26] MEDS: LACOSAMIDE IV 150 MG in SODIUM CHLORIDE 0.9% 50 ML IVPB SCH ×2 (02:19→13:19)
[2020-03-26 02:33] LABS: Glucose,Whole Blood 306 mg/dL (75-99)
[2020-03-26] MEDS: HYDROcodone/APAP 10-325MG 1 EACH TAB PO PRN ×2 (02:56→11:39)
[2020-03-26] MEDS: VALPROATE SODIUM 250 MG in SODIUM CHLORIDE 0.9% 100 ML IVPB SCH ×2 (03:20→13:10)
[2020-03-26 05:16] LABS: Anisocytosis Slight; Basophils % (A) 0 %; Eosinophils % (A) 1 %; HCT 25.7 % (34.0-46.0); Hypochromasia Slight; Lymphocytes % (A) 38 %; MCH 30.3 pg (25.0-35.0); MCHC 31.2 g/dL (31.0-37.0); MCV 97.4 fL (80.0-100.0); Macrocytosis Slight; Mean Platelet Volume 7.8; Monocytes # (A) 0.4 k/uL (0-1.0); Monocytes % (A) 7 %; Neutrophils # (A) 2.8 k/uL (1.3-7.7); Neutrophils % (A) 52 %; Platelet Count 151 k/uL (150-450); RBC 2.64 m/uL (3.80-5.40); RDW 16.3 % (11.5-15.5); WBC 5.3 k/uL (3.8-10.6)
[2020-03-26 07:01] LABS: Glucose,Whole Blood 196 mg/dL (75-99)
[2020-03-26 09:20] LABS: African American GFR (CKD) 81.1 (60.0-200.0); Albumin 2.7 g/dL (3.80-4.90); Albumin/Globulin Ratio 1.13 (1.60-3.17); Anion Gap 6.7 mmol/L (4.00-12.00); BUN/Creat Ratio 16.67 Ratio (12.00-20.00); Calcium 8.8 mg/dL (8.7-10.3); Carbon Dioxide 28.3 mmol/L (21.6-31.8); Globulin 2.4 g/dL (1.6-3.3); Potassium 4.3 mmol/L (3.5-5.5); Total Bilirubin 0.1 mg/dL (0.3-1.2); Total Protein 5.1 g/dL (6.2-8.2)
[2020-03-26] MEDS: INSULIN ASPART (NovoLOG) 100 UNIT/ML VIAL SQ SCH ×2 (10:17→13:16)
[2020-03-26] MEDS: QUEtiapine 25 MG TAB PO SCH (10:18)
[2020-03-26] MEDS: METOPROLOL TARTRATE 12.5 MG TAB PO SCH (10:18)
[2020-03-26] MEDS: ASCORBIC ACID 500 MG TAB PO SCH (10:18)
[2020-03-26] MEDS: CLOPIDOGREL 75 MG TAB PO SCH (10:18)
[2020-03-26] MEDS: FAMOTIDINE 20 MG TAB PO SCH (10:18)
[2020-03-26] MEDS: DULoxetine HCL 30 MG CAPSULE.DR PO SCH (10:18)
[2020-03-26] MEDS: ASPIRIN 81 MG PO SCH (10:18)
[2020-03-26] MEDS: LOSARTAN 50 MG TAB PO SCH (10:19)
[2020-03-26] MEDS: CALCIUM CARB-VIT D 500MG-200UN 1 EACH TAB PO SCH (10:19)
[2020-03-26] MEDS: FERROUS SULFATE 325 MG TAB PO SCH (10:19)
[2020-03-26] MEDS: METOCLOPRAMIDE 5 MG TAB PO SCH ×2 (10:21→13:18)
[2020-03-26] MEDS: ENOXAPARIN 40 MG/0.4 ML SYRINGE SQ SCH (10:21)
[2020-03-26] MEDS: ATORVASTATIN 20 MG TAB PO SCH (10:22)
[2020-03-26 11:08] LABS: Glucose,Whole Blood 249 mg/dL (75-99)
[2020-03-26 11:38] VITALS: BP 123/55; TEMP 98.3
[2020-03-26 12:19] VITALS: PULSE 77
--- NOTE | 2020-03-31 11:46 | P.DS ---
Providers Date of admission: 03/16/20 13:42 Expected date of discharge: 03/26/20 Attending physician: Sherlyn Chen Consults: 03/20/20 15:19 Consult Physician Urgent Consulting Provider: Jose Carlos Ortiz Consult Reason/Comments: AMS Do you want consulting provider notified?: Yes 03/20/20 22:44 Consult Physician Routine Consulting Provider: Wilman Moreland Consult Reason/Comments: agitation, psychosis Do you want consulting provider notified?: Yes Primary care physician: Sherlyn Chen [facility] Course: Discharge diagnosis 1. Altered mental status is with hypoglycemia. Hypoglycemia was corrected altered mental status changes have resolved 2. Diabetes mellitus type 1. Patient is known to be a brittle diabetic with fluctuating blood sugars 3. Recent hospitalization for pneumonia. Chest x-ray completed showing improvement 4. History of seizures. Patient was evaluated by neurology services and medications adjusted during previous day 5. History of stroke 6. Essential hypertension 7. History of hyperlipidemia. Patient obtained on statin 8. History of COPD no exacerbation at this time 9. History of coronary artery disease 10. History of peripheral vascular disease with previous history of multiple toe amputations 11. Iron deficiency anemia 12. Episodes of agitation and screaming, patient received Haldol and Ativan, psychiatry and neurology consultation requested Hospital course Melva Jackson, is a 59-year-old female patient well-known to my services. Patient was recently discharged she was admitted to the hospital for DKA and pneumonia. Patient has underlying history of diabetes mellitus type 1 which is a brittle diabetic. Lantus was decreased upon discharge. Additional medical history includes stroke and seizures. She was discharged home with her sister. According to ER report patient was found to have a low blood sugar with altered mental status changes. Blood sugar was corrected and alt mental status changes recovered. There is questionable compliance with diet. Consult placed for possible ECF placement on discharge. Chest x-ray was completed showing no active cardiopulmonary disease. There is almost complete clearing of the right side patchy pulmonary infiltrate compared to old exam. We'll continue to monitor blood sugar closely and make adjustments to home medication . On 03/16/2020 patient was seen and examined on the medical floor she is alert and oriented 3 in no distress there is no fever or chills no headache or dizziness no chest pain no shortness of breath no cough no nausea or vomiting no abdominal pain no diarrhea no blood in the stools no burning with urination no frequency or urgency and no hematuria glucose levels are much better controlled today she is receiving Levemir 10 units at bedtime and sliding scale before meals On 03/17/2020 patient was seen and examined on the medical floor she is alert and oriented 3 in no distress there is no fever or chills no headache or dizziness no chest pain no shortness of breath no cough no nausea or vomiting no abdominal pain no diarrhea no blood in the stools no burning with urination no frequency or urgency and no hematuria. Patient to glucose level is still fluctuating she was 88 before breakfast this morning no short-acting insulin was given patient was given breakfast her glucose level was 464 before lunch she is being given 8 units of NovoLog before lunch will continue to monitor and adjust insulin, possible transfer to rehab tomorrow. On 03/18/2020 patient was seen and examined on the medical floor she is alert and oriented in no distress, glucose levels are better controlled however this morning patient had another episode of hypoglycemia, at this time will decrease Levemir dose to 8 units daily and continue was NovoLog before meals, and give a bedtime snack, but no short-acting insulin at bedtime. On 03/19/2020 patient was seen and examined on the medical floor she is alert and oriented 3 in no apparent distress she had significantly elevated glucose level of 600 this morning, otherwise she denies any complaints at this point will increase Levemir again to 10 units at bedtime, avoid NovoLog before bedtime, and give NovoLog only before meals will continue to monitor glucose level and adjust insulin accordingly On 03/20/2020 Patient is more sleepy today. Blood sugar in the 400's this AM. corrected per scale. Will continue to monitor for the next 24-48 hours. Denies any specific complaints On 03/21/2020 patient was seen and examined on the medical floor she is somnolent, arousable for a few seconds and she returns to sleep, she was up all night very agitated and screaming, she received IV Ativan and IM Haldol, consultation for psychiatry and neurology were initiated in that regard, otherwise no events since yesterday glucose level is better controlled. On 03/22/2020 patient was seen and examined on the medical floor she is somnolen t arousable in no apparent distress she has been evaluated by psychiatry and neurology medications are being adjusted she was started on IV fluid due to mild dehydration On 03/23/2020 patient was seen and examined on the medical floor she is more alert today she was able to tolerate her breakfast well glucose was very low this morning she received half an amp of D50 otherwise she denies any complaints at this time. On 03/24/2020 patient is currently resting comfortably in bed. Per nursing staff patient is more alert and less agitated today. Patient is currently resting comfortably in bed does wake up follow commands. Blood sugar this a.m. 252 corrected per scale. Patient maintained on IV Depacon per neurology psychiatry meds also adjusted per psychiatry services. On 1026 and on the medical floor at this time she is somnolent responsive to stimuli, in no apparent distress, earlier she had episodes of agitation and screaming, recommendation from neurology and psychiatry reviewed currently she is maintained on Seroquel 25 mg in a.m. and 50 mg in p.m., Reglan dose was decreased to 5 mg 3 times daily before meals, if patient is tolerating well Will attempt to discontinue Reglan, she is receiving [place] and Xanax on a when necessary basis, at this time will discontinue Haldol when necessary and monitor, hopefully patient will be ready for transfer to a nursing facility soon. On 03/26/2020 patient DC'd home with family. Patient has returned to baseline Patient Condition at Discharge: Stable Plan - Discharge Summary Discharge Rx Participant: No New Discharge Prescriptions: New DULoxetine HCL [Cymbalta] 30 mg PO DAILY capsule. Metoprolol Tartrate [Lopressor] 12.5 mg PO BID tab Metoclopramide [Reglan] 5 mg PO AC-TID tab QUEtiapine [SEROquel] 25 mg PO DAILY tab ALPRAZolam [Xanax] 0.5 mg PO QID PRN tab PRN Reason: Anxiety Continue Famotidine [Pepcid] 20 mg PO DAILY HYDROcodone/APAP 10-325MG [[place] 10-325] 1 tab PO TID PRN PRN Reason: Pain Atorvastatin [Lipitor] 20 mg PO DAILY Aspirin [Adult Low Dose Aspirin EC] 81 mg PO DAILY Ferrous Sulfate [Iron (65 MG Elemental)] 325 mg PO DAILY Divalproex [Depakote] 250 mg PO TID #90 tablet. Albuterol Sulfate [Ventolin HFA] 2 puff INHALATION RT-Q4H PRN PRN Reason: Shortness Of Breath Losartan [Cozaar] 50 mg PO DAILY tab Ascorbic Acid [Vitamin C] 500 mg PO DAILY Vitamin B Complex 1 tab PO DAILY Clopidogrel [Plavix] 75 mg PO DAILY tab QUEtiapine [SEROquel] 50 mg PO HS 30 Days #30 tab Lacosamide [Vimpat] 100 mg PO BID 30 Days #60 tablet Insulin Glargine,Hum.rec.anlog [Basaglar Kwikpen U-100] 10 unit SQ HS #0 Discontinued DULoxetine HCL [Cymbalta] 60 mg PO DAILY ALPRAZolam [Xanax] 1 mg PO Q8H PRN PRN Reason: Anxiety Ondansetron Odt [Zofran ODT] 4 mg PO DAILY PRN PRN Reason: Nausea Metoclopramide [Reglan] 10 mg PO AC-TID tab QUEtiapine [SEROquel] 25 mg PO BID No Action Calcium Carb-Vit D 500Mg-200Un [[place] 500+D] 1 tab PO BID-W/MEALS INSULIN LISPRO (humaLOG) [humaLOG] 6 units SQ AC-TID Ondansetron Odt [Zofran Odt] 4 mg PO Q8HR PRN 3 Days #9 tab PRN Reason: Nausea Discharge Medication List Famotidine [Pepcid] 20 mg PO DAILY 07/19/15 [History] HYDROcodone/APAP 10-325MG [[place] 10-325] 1 tab PO TID PRN 10/03/16 [History] Atorvastatin [Lipitor] 20 mg PO DAILY 12/28/18 [History] Aspirin [Adult Low Dose Aspirin EC] 81 mg PO DAILY 06/09/19 [History] Ferrous Sulfate [Iron (65 MG Elemental)] 325 mg PO DAILY 06/09/19 [History] Divalproex [Depakote] 250 mg PO TID #90 tablet. 08/17/19 [Rx] Albuterol Sulfate [Ventolin HFA] 2 puff INHALATION RT-Q4H PRN 12/26/19 [History] Losartan [Cozaar] 50 mg PO DAILY tab 01/18/20 [Rx] Ascorbic Acid [Vitamin C] 500 mg PO DAILY 01/29/20 [History] Vitamin B Complex 1 tab PO DAILY 01/29/20 [History] Clopidogrel [Plavix] 75 mg PO DAILY tab 02/02/20 [Rx] Insulin Glargine,Hum.rec.anlog [Basaglar Kwikpen U-100] 10 unit SQ HS #0 03/13/20 [Rx] Lacosamide [Vimpat] 100 mg PO BID 30 Days #60 tablet 03/13/20 [Rx] QUEtiapine [SEROquel] 50 mg PO HS 30 Days #30 tab 03/13/20 [Rx] ALPRAZolam [Xanax] 0.5 mg PO QID PRN tab 03/26/20 [Rx] DULoxetine HCL [Cymbalta] 30 mg PO DAILY capsule. 03/26/20 [Rx] Metoclopramide [Reglan] 5 mg PO AC-TID tab 03/26/20 [Rx] Metoprolol Tartrate [Lopressor] 12.5 mg PO BID tab 03/26/20 [Rx] QUEtiapine [SEROquel] 25 mg PO DAILY tab 03/26/20 [Rx] Calcium Carb-Vit D 500Mg-200Un [[place] 500+D] 1 tab PO BID-W/MEALS 03/31/20 [History] INSULIN LISPRO (humaLOG) [humaLOG] 6 units SQ AC-TID 03/31/20 [History] Ondansetron Odt [Zofran Odt] 4 mg PO Q8HR PRN 3 Days #9 tab 03/31/20 [Rx] Follow up Appointment(s)/Referral(s): [facility], [NON-STAFF] - 1 Week Sherlyn Chen MD [Primary Care Provider] - 04/02/20 2:15 pm Patient Instructions/Handouts: Metoprolol (By mouth), Metoclopramide (By mouth), Alprazolam (By mouth), Quetiapine (By mouth), Duloxetine (By mouth), Hypoglycemia in a Person with Diabetes (DC), Altered Mental Status (GEN), Fall Prevention (DC), Type 2 Diabetes Management for Adults (DC) Activity/Diet/Wound Care/Special Instructions: Monitor CBG and write down results. Do not give rapid acting insulin after dinner time insulin dose. Discharge Disposition: HOME WITH HOME HEALTH SERVICES
== END 2020-03-26 15:35 | disposition home health service (06) | DRG 637 ==
LOC: EC 20:25 → 6NMEDSUR 22:29 → OBSVTOIN 03-16 13:42 → 6NMEDSUR 03-17 07:42
PROVIDERS: ADMIT Internal Medicine; ATTEND Internal Medicine
PROC: 05HB33Z Insertion of Infusion Device into Right Basilic Vein, Percutaneous Approach (ICD-10-PCS; principal; 2020-03-25)
DX: E10.649 Type 1 diabetes mellitus with hypoglycemia without coma (principal); G93.41 Metabolic encephalopathy; I69.354 Hemiplegia and hemiparesis following cerebral infarction affecting left non-dominant side; D50.9 Iron deficiency anemia, unspecified; E03.9 Hypothyroidism, unspecified; E10.319 Type 1 diabetes mellitus with unspecified diabetic retinopathy without macular edema; E10.51 Type 1 diabetes mellitus with diabetic peripheral angiopathy without gangrene; E78.00 Pure hypercholesterolemia, unspecified; E78.5 Hyperlipidemia, unspecified; Z79.899 Other long term (current) drug therapy; E86.0 Dehydration; F29 Unspecified psychosis not due to a substance or known physiological condition; F31.9 Bipolar disorder, unspecified; F41.9 Anxiety disorder, unspecified; G40.909 Epilepsy, unspecified, not intractable, without status epilepticus; N28.9 Disorder of kidney and ureter, unspecified; I11.0 Hypertensive heart disease with heart failure; I25.10 Atherosclerotic heart disease of native coronary artery without angina pectoris; I25.2 Old myocardial infarction; S91.301A Unspecified open wound, right foot, initial encounter; I50.9 Heart failure, unspecified; Z87.01 Personal history of pneumonia (recurrent); J44.9 Chronic obstructive pulmonary disease, unspecified; Z87.891 Personal history of nicotine dependence; Z99.3 Dependence on wheelchair; Z79.02 Long term (current) use of antithrombotics/antiplatelets; Z79.4 Long term (current) use of insulin; Z79.82 Long term (current) use of aspirin; Z82.49 Family history of ischemic heart disease and other diseases of the circulatory system; Z82.5 Family history of asthma and other chronic lower respiratory diseases; Z83.3 Family history of diabetes mellitus; Z86.718 Personal history of other venous thrombosis and embolism; Z90.710 Acquired absence of both cervix and uterus; Z90.49 Acquired absence of other specified parts of digestive tract; Z98.42 Cataract extraction status, left eye; Z98.41 Cataract extraction status, right eye; Z96.1 Presence of intraocular lens; K21.9 Gastro-esophageal reflux disease without esophagitis; M19.90 Unspecified osteoarthritis, unspecified site; M54.5 Low back pain; I83.90 Asymptomatic varicose veins of unspecified lower extremity; H93.13 Tinnitus, bilateral; K59.00 Constipation, unspecified; Z86.14 Personal history of Methicillin resistant Staphylococcus aureus infection; J34.9 Unspecified disorder of nose and nasal sinuses; Z88.5 Allergy status to narcotic agent; Z88.0 Allergy status to penicillin; Z88.8 Allergy status to other drugs, medicaments and biological substances; Z88.1 Allergy status to other antibiotic agents; Z91.030 Bee allergy status; Z89.421 Acquired absence of other right toe(s)
CPT/HCPCS: 36410; 36415; 51701; 71046; 76937; 80053; 80320; 81001; 81003; 82140; 82550; 82947; 83735; 85025; 93005; 96361; 96374; 99285

== ENCOUNTER 2020-03-30 21:18 | Observation (INO) | payer OTHER ==
[2020-03-30] MEDS ORDERED: SODIUM CHLORIDE 0.9% 1,000 ML IV STA ×2 (21:32)
[2020-03-30] MEDS ORDERED: METOCLOPRAMIDE 5 MG/ML 2 ML VIAL IVP STA (21:32)
[2020-03-30 21:36] LABS: Glucose,Whole Blood 103 mg/dL (75-99)
--- NOTE | 2020-03-30 21:39 | ED ---
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 No other complaints no other modifying factors at this time (Darius Stovall) - Related Data Home Medications Medication Instructions Recorded Confirmed Famotidine [Pepcid] 20 mg PO DAILY 07/19/15 03/14/20 HYDROcodone/APAP 10-325MG [[place] 1 tab PO TID PRN 10/03/16 03/14/20 10-325] Atorvastatin [Lipitor] 20 mg PO DAILY 12/28/18 03/14/20 Aspirin [Adult Low Dose Aspirin EC] 81 mg PO DAILY 06/09/19 03/14/20 Ferrous Sulfate [Iron (65 MG 325 mg PO DAILY 06/09/19 03/14/20 Elemental)] Albuterol Sulfate [Ventolin HFA] 2 puff INHALATION RT-Q4H PRN 12/26/19 03/14/20 Ascorbic Acid [Vitamin C] 500 mg PO DAILY 01/29/20 03/14/20 Vitamin B Complex 1 tab PO DAILY 01/29/20 03/14/20 Previous Rx's Medication Instructions Recorded Divalproex [Depakote] 250 mg PO TID #90 tablet. 08/17/19 Losartan [Cozaar] 50 mg PO DAILY tab 01/18/20 Calcium Carb-Vit D 500Mg-200Un 1 each PO BID-W/MEALS tab 02/02/20 [Oscal 500+D] Clopidogrel [Plavix] 75 mg PO DAILY tab 02/02/20 INSULIN ASPART (NovoLOG) [NovoLOG 0 unit SQ AC-TID vial 02/02/20 (formulary)] Insulin Glargine,Hum.rec.anlog 10 unit SQ HS #0 03/13/20 [Basaglar Kwikpen U-100] Lacosamide [Vimpat] 100 mg PO BID 30 Days #60 tablet 03/13/20 QUEtiapine [SEROquel] 50 mg PO HS 30 Days #30 tab 03/13/20 ALPRAZolam [Xanax] 0.5 mg PO QID PRN tab 03/26/20 DULoxetine HCL [Cymbalta] 30 mg PO DAILY capsule.dr 03/26/20 Metoclopramide [Reglan] 5 mg PO AC-TID tab 03/26/20 Metoprolol Tartrate [Lopressor] 12.5 mg PO BID tab 03/26/20 QUEtiapine [SEROquel] 25 mg PO DAILY tab 03/26/20 Allergies Allergy/AdvReac Type Severity Reaction Status Date / Time Barbiturates Allergy Rash/Hives Verified 03/14/20 22:22 cephalexin monohydrate Allergy Rash/Hives Verified 03/14/20 22:22 [From Keflex] morphine Allergy Rash/Hives Verified 03/14/20 22:22 Penicillins Allergy Rash/Hives Verified 03/14/20 22:22 phenobarbital Allergy Swelling Verified 03/14/20 22:22 venom-honey bee Allergy Swelling Verified 03/14/20 22:22 [bee venom (honey bee)] amlodipine besylate AdvReac Vomiting Verified 03/14/20 22:22 [From Norvasc] Review of Systems ROS Other: All systems not noted in ROS Statement are negative. <Darius Stovall - Last Filed: 03/30/20 23:08> ROS Other: All systems not noted in ROS Statement are negative. <Braulio Bajwa - Last Filed: 03/31/20 00:45> ROS Statement: Those systems with pertinent positive or pertinent negative responses have been documented in the HPI. Past Medical History Past Medical History: Asthma, Coronary Artery Disease (CAD), Chest Pain / Angina, Heart Failure, COPD, CVA/TIA, Diabetes Mellitus, Deep Vein Thrombosis (DVT), Eye Disorder, GERD/Reflux, Hyperlipidemia, Hypertension, Myocardial Infarction (ID), Neurologic Disorder, Osteoarthritis (OA), Pneumonia, Renal Disease Additional Past Medical History / Comment(s): IDDM (brittle), DKAs, neuropathy bilateral hands/feet, retinopathy bilateral eyes, cellulitis R foot, R great toe and 2nd toe infections/amputations, current wound R foot-being seen in [facility], renal failure, anemia, CVAs with L sided paralysis, headaches started after CVAs, brain lesions, DVT R axillae, low back pain, varicosities, seizure many years ago (2001), hypothyroid, constipation, bilateral tinnitis occasionally, sinus problems. Last Myocardial Infarction Date:: 2011 History of Any Multi-Drug Resistant Organisms: MRSA Date of last positivie culture/infection: 09/06/17 MDRO Source:: Right Foot Past Surgical History: Appendectomy, Section, Cholecystectomy, Heart Catheterization With Stent, Hysterectomy, Orthopedic Surgery Additional Past Surgical History / Comment(s): PCI with multiple stents, R great toe and 2nd toe amps, debridements R foot ulcer, L shoulder surgery to remove bone, bronchoscopy, EGD, colonoscopy, R arm port since removed, bilateral cataract removals/lens implants. Past Anesthesia/Blood Transfusion Reactions: No Reported Reaction Additional Past Anesthesia/Blood Transfusion Reaction / Comment(s): HX OF BLOOD TRANSFUSION- NO REACTION Date of Last Stent Placement:: July 2012 Past Psychological History: Anxiety, Bipolar, Depression Smoking Status: Former smoker Past Alcohol Use History: None Reported Past Drug Use History: Marijuana - Past Family History Father Family Medical History: Unable to Obtain, Coronary Artery Disease (CAD), Diabetes Mellitus Mother Family Medical History: COPD <Darius Stovall - Last Filed: 03/30/20 23:08> General Exam Limitations: physical limitation General appearance: alert, in no apparent distress, lethargic Head exam: Present: atraumatic, normocephalic, normal inspection Eye exam: Present: normal appearance, PERRL, EOMI. Absent: scleral icterus, conjunctival injection, periorbital swelling ENT exam: Present: mucous membranes dry Neck exam: Present: normal inspection. Absent: tenderness, meningismus, lymphadenopathy Respiratory exam: Present: normal lung sounds bilaterally. Absent: respiratory distress, wheezes, rales, rhonchi, stridor Cardiovascular Exam: Present: regular rate, normal rhythm, normal heart sounds. Absent: systolic murmur, diastolic murmur, rubs, gallop, clicks GI/Abdominal exam: Present: soft, normal bowel sounds. Absent: distended, tenderness, guarding, rebound, rigid Extremities exam: Present: full ROM, normal capillary refill, other (Contractures to left side also well-healed amputation site of the right foot first and second toes.). Absent: tenderness, pedal edema, joint swelling, calf tenderness Back exam: Present: normal inspection Neurological exam: Present: alert, oriented X3, CN II-XII intact, motor sensory deficit Psychiatric exam: Present: normal affect, normal mood Skin exam: Present: warm, dry, intact, normal color. Absent: rash <Darius Stovall - Last Filed: 03/30/20 23:08> - General Exam Comments Initial Comments: Is a well-developed asthenic appearing female demonstrate evidence of prior CVA a poor historian she was actively vomiting upon arrival (Darius Stovall) Course <Darius Stovall - Last Filed: 03/30/20 23:08> Vital Signs 03/30/20 03/30/20 21:19 21:26 Temperature 97.4 F L Pulse Rate 63 Respiratory 17 Rate Blood Pressure 163/112 174/93 O2 Sat by Pulse 95 Oximetry - Reevaluation(s) Reevaluation #1: 03/30/20 23:08 The patients care is endorsed to Dr. Bajwa at shift change. (Darius Stovall) Medical Decision Making - EKG Data -: EKG Interpreted by Wy EKG shows normal: sinus rhythm (Sinus rhythm a 60 07/29/1949 QRS duration 86 QT since QTC 424/424 possible left atrial enlargement no definite acute ST-T wave changes) <Darius Stovall - Last Filed: 03/30/20 23:08> - Lab Data Result diagrams: 03/30/20 22:45 03/30/20 22:45 <Braulio Bajwa - Last Filed: 03/31/20 00:45> - Lab Data Lab Results 03/30/20 03/30/20 03/30/20 Range/Units 21:34 22:45 22:45 WBC 5.6 (3.8-10.6) k/uL RBC 3.13 L (3.80-5.40) m/uL Hgb 9.8 L D (11.4-16.0) gm/dL Hct 30.8 L (34.0-46.0) % MCV 98.3 (80.0-100.0) fL MCH 31.4 (25.0-35.0) pg MCHC 32.0 (31.0-37.0) g/dL RDW 16.1 H (11.5-15.5) % Plt Count 205 (150-450) k/uL Neutrophils % 66 % Lymphocytes % 28 % Monocytes % 5 % Eosinophils % 1 % Basophils % 0 % Neutrophils # 3.7 (1.3-7.7) k/uL Lymphocytes # 1.6 (1.0-4.8) k/uL Monocytes # 0.3 (0-1.0) k/uL Eosinophils # 0.0 (0-0.7) k/uL Basophils # 0.0 (0-0.2) k/uL Hypochromasia Slight Anisocytosis Slight Macrocytosis Slight Sodium 140 (137-145) mmol/L Potassium (3.5-5.1) mmol/L Chloride 105 (98-107) mmol/L Carbon Dioxide 32 H (22-30) mmol/L Anion Gap 3 mmol/L BUN 21 H (7-17) mg/dL Creatinine 0.90 (0.52-1.04) mg/dL Est GFR (CKD-EPI)AfAm 81 (>60 ml/min/1.73 sqM) Est GFR (CKD-EPI)NonAf 71 (>60 ml/min/1.73 sqM) Glucose 110 H (74-99) mg/dL POC Glucose (mg/dL) 103 H (75-99) mg/dL POC Glu Cotton Baler ID Shona Robles Calcium 8.9 (8.4-10.2) mg/dL Total Bilirubin 1.4 H (0.2-1.3) mg/dL AST 67 H (14-36) U/L ALT 23 (4-34) U/L Alkaline Phosphatase 98 (38-126) U/L Creatine Kinase 52 (30-135) U/L Troponin I (0.000-0.034) ng/mL Total Protein 7.7 (6.3-8.2) g/dL Albumin 3.6 (3.5-5.0) g/dL Lipase 20 L (23-300) U/L Urine Color Urine Appearance (Clear) Urine pH (5.0-8.0) Ur Specific [place] (1.001-1.035) Urine Protein (Negative) Urine Glucose (UA) (Negative) Urine Ketones (Negative) Urine Blood (Negative) Urine Nitrite (Negative) Urine Bilirubin (Negative) Urine Urobilinogen (<2.0) mg/dL Ur Leukocyte Esterase (Negative) Acetone, Qual Negative (Negative) 03/30/20 03/30/20 Range/Units 22:45 22:45 WBC (3.8-10.6) k/uL RBC (3.80-5.40) m/uL Hgb (11.4-16.0) gm/dL Hct (34.0-46.0) % MCV (80.0-100.0) fL MCH (25.0-35.0) pg MCHC (31.0-37.0) g/dL RDW (11.5-15.5) % Plt Count (150-450) k/uL Neutrophils % % Lymphocytes % % Monocytes % % Eosinophils % % Basophils % % Neutrophils # (1.3-7.7) k/uL Lymphocytes # (1.0-4.8) k/uL Monocytes # (0-1.0) k/uL Eosinophils # (0-0.7) k/uL Basophils # (0-0.2) k/uL Hypochromasia Anisocytosis Macrocytosis Sodium (137-145) mmol/L Potassium (3.5-5.1) mmol/L Chloride (98-107) mmol/L Carbon Dioxide (22-30) mmol/L Anion Gap mmol/L BUN (7-17) mg/dL Creatinine (0.52-1.04) mg/dL Est GFR (CKD-EPI)AfAm (>60 ml/min/1.73 sqM) Est GFR (CKD-EPI)NonAf (>60 ml/min/1.73 sqM) Glucose (74-99) mg/dL POC Glucose (mg/dL) (75-99) mg/dL POC Glu Cotton Baler ID Calcium (8.4-10.2) mg/dL Total Bilirubin (0.2-1.3) mg/dL AST (14-36) U/L ALT (4-34) U/L Alkaline Phosphatase (38-126) U/L Creatine Kinase (30-135) U/L Troponin I <0.012 (0.000-0.034) ng/mL Total Protein (6.3-8.2) g/dL Albumin (3.5-5.0) g/dL Lipase (23-300) U/L Urine Color Yellow Urine Appearance Clear (Clear) Urine pH 7.0 (5.0-8.0) Ur Specific [place] 1.019 (1.001-1.035) Urine Protein Trace H (Negative) Urine Glucose (UA) 1+ H (Negative) Urine Ketones Negative (Negative) Urine Blood Negative (Negative) Urine Nitrite Negative (Negative) Urine Bilirubin Negative (Negative) Urine Urobilinogen <2.0 (<2.0) mg/dL Ur Leukocyte Esterase Negative (Negative) Acetone, Qual (Negative) Disposition <Darius Stovall - Last Filed: 03/30/20 23:08> <Braulio Bajwa - Last Filed: 03/31/20 00:45> Clinical Impression: Intractable vomiting Disposition: ADMITTED IP TO THIS [facility] Condition: Fair Referrals: Sherlyn Chen MD [Primary Care Provider] - 1-2 days
[2020-03-30 22:58] LABS: Anisocytosis Slight; Basophils % (A) 0 %; Eosinophils % (A) 1 %; HCT 30.8 % (34.0-46.0); Hypochromasia Slight; Lymphocytes # (A) 1.6 k/uL (1.0-4.8); Lymphocytes % (A) 28 %; MCH 31.4 pg (25.0-35.0); MCV 98.3 fL (80.0-100.0); Macrocytosis Slight; Mean Platelet Volume 7.6; Monocytes # (A) 0.3 k/uL (0-1.0); Monocytes % (A) 5 %; Neutrophils # (A) 3.7 k/uL (1.3-7.7); Neutrophils % (A) 66 %; Platelet Count 205 k/uL (150-450); RBC 3.13 m/uL (3.80-5.40); RDW 16.1 % (11.5-15.5); WBC 5.6 k/uL (3.8-10.6)
[2020-03-30 23:09] LABS: ALT 23 U/L (4-34); AST 67 U/L (14-36); African American GFR (CKD) 81 (>60 ml/min/1.73 sqM); Albumin 3.6 g/dL (3.5-5.0); Alkaline Phosphatase 98 U/L (38-126); Anion Gap 3 mmol/L; Blood Urea Nitrogen 21 mg/dL (7-17); Calcium 8.9 mg/dL (8.4-10.2); Carbon Dioxide 32 mmol/L (22-30); Chloride 105 mmol/L (98-107); Creatine Kinase 52 U/L (30-135); Glucose 110 mg/dL (74-99); Non-African American GFR(CKD) 71 (>60 ml/min/1.73 sqM); Sodium 140 mmol/L (137-145); Total Bilirubin 1.4 mg/dL (0.2-1.3); Total Protein 7.7 g/dL (6.3-8.2)
--- NOTE | 2020-03-30 23:21 | XR ---
EXAMINATION TYPE: XR chest 1V DATE OF EXAM: 03/30/2020 COMPARISON: 03/14/2020 HISTORY: Chest pain TECHNIQUE: FINDINGS: There is no heart failure nor confluent pneumonic infiltrate. Costophrenic angles are clear . There is apparent cardiac stent. There are no hilar masses. There is no pleural effusion. There are chest leads. Bony thorax is intact. IMPRESSION: No active cardiopulmonary disease. No change.
--- NOTE | 2020-03-30 23:23 | XR ---
EXAMINATION TYPE: XR KUB DATE OF EXAM: 03/30/2020 COMPARISON: 01/10/2020 HISTORY: Abdominal pain TECHNIQUE: FINDINGS: 2 views were obtained supine. Bowel gas pattern is normal. There is no sign of intestinal o bstruction or pneumoperitoneum. There are phleboliths in the pelvis. There is artifact over the pelvi s. There is no evidence of a mass. I see no calcifications over the kidneys. There is atherosclerotic vascular calcification. IMPRESSION: Nonacute abdomen. No adverse change compared to old exam.
[2020-03-30 23:29] LABS: HGB 9.8 gm/dL (11.4-16.0)
[2020-03-30 23:54] LABS: Appearance,Urine Clear (Clear); Bilirubin,Urine Negative (Negative); Blood,Urine Negative (Negative); Color,Urine Yellow; Glucose,Urine (UA) 1+ (Negative); Ketones,Urine Negative (Negative); Leukocyte Esterase,Urine Negative (Negative); Nitrite,Urine Negative (Negative); Protein,Urine Trace (Negative); Specific Gravity,Urine 1.019 (1.001-1.035); Urobilinogen,Urine <2.0 mg/dL (<2.0)
[2020-03-31] MEDS ORDERED: ONDANSETRON 4 MG/2 ML VIAL IVP STA (00:33)
[2020-03-31] MEDS ORDERED: NALOXONE 0.4 MG/ML 1 ML VIAL IV PRN (00:45)
[2020-03-31] MEDS ORDERED: SODIUM CHLORIDE 0.9% 1,000 ML IV SCH (00:45)
[2020-03-31] MEDS ORDERED: ONDANSETRON 4 MG/2 ML VIAL IVP PRN (00:45)
[2020-03-31] MEDS ORDERED: ALBUTEROL NEBULIZED 2.5 MG/3 ML INHALATION PRN (01:00)
[2020-03-31] MEDS ORDERED: PROCHLORPERAZINE SUPPOSITORY 25 MG SUPP RECTAL PRN (06:00)
[2020-03-31 06:59] LABS: Glucose,Whole Blood 365 mg/dL (75-99)
[2020-03-31] MEDS: INSULIN ASPART (NovoLOG) 100 UNIT/ML VIAL SQ SCH ×2 (07:43→12:42)
[2020-03-31] MEDS: METOCLOPRAMIDE 5 MG TAB PO SCH ×2 (07:43→12:42)
[2020-03-31 08:04] VITALS: BP 126/76; PULSE 87; RESP 16; TEMP 97.8
[2020-03-31] MEDS ORDERED: QUEtiapine 25 MG TAB PO SCH (09:00)
[2020-03-31] MEDS ORDERED: METOPROLOL TARTRATE 12.5 MG TAB PO SCH (09:00)
[2020-03-31] MEDS ORDERED: LACOSAMIDE 50 MG TABLET PO SCH (09:00)
[2020-03-31] MEDS ORDERED: LOSARTAN 50 MG TAB PO SCH (09:00)
[2020-03-31] MEDS ORDERED: DIVALPROEX 250 MG TABLET.DR PO SCH (09:00)
[2020-03-31] MEDS ORDERED: CLOPIDOGREL 75 MG TAB PO SCH (09:00)
--- NOTE | 2020-03-31 10:46 | P.HPIM ---
History of Present Illness H&P Date: 03/31/20 Chief Complaint: Nausea and vomiting This is a 59-year-old female patient well-known to my services who presented with complaints of nausea and vomiting. Per EMS report patient started having issues yesterday throughout the night and had generalized weakness. Patient has a past medical history of brittle diabetes, CVA with left-sided weakness and prior amputation of the first and second toes and multiple hospitalizations. Patient resides with sister and caregiver. Chest x-ray completed showing no active cardiopulmonary disease no change. KUB x-ray completed showing nonacute abdomen no adverse change compared to old exam. Lipase 20. UA negative for infection. Blood sugars have been stable. Patient is eager to be discharged home symptoms have improved. Will order ultrasound of abdomen and recheck labs. Patient to also eat regular diet for lunch and possible discharge later. Review of Systems Please refer to HPI otherwise unremarkable Past Medical History Past Medical History: Asthma, Coronary Artery Disease (CAD), Chest Pain / Angina, Heart Failure, COPD, CVA/TIA, Diabetes Mellitus, Deep Vein Thrombosis (DVT), Eye Disorder, GERD/Reflux, Hyperlipidemia, Hypertension, Myocardial In farction (VT), Neurologic Disorder, Osteoarthritis (OA), Pneumonia, Renal Disease Additional Past Medical History / Comment(s): IDDM (brittle), DKAs, neuropathy bilateral hands/feet, retinopathy bilateral eyes, cellulitis R foot, R great toe and 2nd toe infections/amputations, current wound R foot-being seen in [facility], renal failure, anemia, CVAs with L sided paralysis, headaches started after CVAs, brain lesions, DVT R axillae, low back pain, varicosities, seizure many years ago (2001), hypothyroid, constipation, bilateral tinnitis occasionally, sinus problems. Last Myocardial Infarction Date:: 2011 History of Any Multi-Drug Resistant Organisms: MRSA Date of last positivie culture/infection: 09/06/17 MDRO Source:: Right Foot Past Surgical History: Appendectomy, Section, Cholecystectomy, Heart Catheterization With Stent, Hysterectomy, Orthopedic Surgery Additional Past Surgical History / Comment(s): PCI with multiple stents, R great toe and 2nd toe amps, debridements R foot ulcer, L shoulder surgery to remove bone, bronchoscopy, EGD, colonoscopy, R arm port since removed, bilateral cataract removals/lens implants. Past Anesthesia/Blood Transfusion Reactions: No Reported Reaction Additional Past Anesthesia/Blood Transfusion Reaction / Comment(s): HX OF BLOOD TRANSFUSION- NO REACTION Date of Last Stent Placement:: July 2012 Past Psychological History: Anxiety, Bipolar, Depression Additional Psychological History / Comment(s): Pt has a legal guardian, Sera Rodriguez, who is pt's sister. Currently her legal guardian is hospitalized. Pt has a caregiver, No, who resides with her. Pt is wheelchair bound d/t CVA with L sided paralysis arm and leg. She has a shower chair and a glucometer. Her sister or caregiver drive her to [place]. Smoking Status: Never smoker Past Alcohol Use History: None Reported Additional Past Alcohol Use History / Comment(s): Pt started smoking in 1982 and quit in 2017. Using marijuana edibles occasionally but none for a "long time" Past Drug Use History: Marijuana Additional Drug Use History / Comment(s): using marijuana edibles - Past Family History Father Family Medical History: Unable to Obtain, Coronary Artery Disease (CAD), Diabet es Mellitus Mother Family Medical History: COPD Medications and Allergies Home Medications Medication Instructions Recorded Confirmed Type Famotidine [Pepcid] 20 mg PO DAILY 07/19/15 03/31/20 History HYDROcodone/APAP 10-325MG [[place] 1 tab PO TID PRN 10/03/16 03/31/20 History 10-325] Atorvastatin [Lipitor] 20 mg PO DAILY 12/28/18 03/31/20 History Aspirin [Adult Low Dose Aspirin EC] 81 mg PO DAILY 06/09/19 03/31/20 History Ferrous Sulfate [Iron (65 MG 325 mg PO DAILY 06/09/19 03/31/20 History Elemental)] Divalproex [Depakote] 250 mg PO TID #90 tablet. 08/17/19 03/31/20 Rx Albuterol Sulfate [Ventolin HFA] 2 puff INHALATION RT-Q4H PRN 12/26/19 03/31/20 History Losartan [Cozaar] 50 mg PO DAILY tab 01/18/20 03/31/20 Rx Ascorbic Acid [Vitamin C] 500 mg PO DAILY 01/29/20 03/31/20 History Vitamin B Complex 1 tab PO DAILY 01/29/20 03/31/20 History Clopidogrel [Plavix] 75 mg PO DAILY tab 02/02/20 03/31/20 Rx Insulin Glargine,Hum.rec.anlog 10 unit SQ HS #0 03/13/20 03/31/20 Rx [Basaglar Kwikpen U-100] Lacosamide [Vimpat] 100 mg PO BID 30 Days #60 tablet 03/13/20 03/31/20 Rx QUEtiapine [SEROquel] 50 mg PO HS 30 Days #30 tab 03/13/20 03/31/20 Rx ALPRAZolam [Xanax] 0.5 mg PO QID PRN tab 03/26/20 03/31/20 Rx DULoxetine HCL [Cymbalta] 30 mg PO DAILY capsule. 03/26/20 03/31/20 Rx Metoclopramide [Reglan] 5 mg PO AC-TID tab 03/26/20 03/31/20 Rx Metoprolol Tartrate [Lopressor] 12.5 mg PO BID tab 03/26/20 03/31/20 Rx QUEtiapine [SEROquel] 25 mg PO DAILY tab 03/26/20 03/31/20 Rx Calcium Carb-Vit D 500Mg-200Un 1 tab PO BID-W/MEALS 03/31/20 03/31/20 History [Oscal 500+D] INSULIN LISPRO (humaLOG) [humaLOG] 6 units SQ AC-TID 03/31/20 03/31/20 History Allergies Allergy/AdvReac Type Severity Reaction Status Date / Time Barbiturates Allergy Rash/Hives Verified 03/31/20 10:22 cephalexin monohydrate Allergy Rash/Hives Verified 03/31/20 10:22 [From Keflex] morphine Allergy Rash/Hives Verified 03/31/20 10:22 Penicillins Allergy Rash/Hives Verified 03/31/20 10:22 phenobarbital Allergy Swelling Verified 03/31/20 10:22 venom-honey bee Allergy Swelling Verified 03/31/20 10:22 [bee venom (honey bee)] amlodipine besylate AdvReac Vomiting Verified 03/31/20 10:22 [From Norvasc] Physical Exam Vitals: Vital Signs Temp Pulse Pulse Resp BP BP Pulse Ox 03/31/20 07:00 97.8 F 87 16 126/76 92 L 03/31/20 02:00 96 03/31/20 01:05 EST 98 F 80 20 176/78 03/31/20 01:00 EDT 78 16 142/87 96 03/31/20 00:56 75 16 97 03/30/20 21:26 174/93 03/30/20 21:19 97.4 F L 63 17 163/112 95 Intake and Output 03/30/20 03/31/20 03/31/20 23:59 06:59 14:59 Intake Total Output Total Balance Intake: Oral Output: Emesis Other: # Voids Weight Head normocephalic Neck supple Lungs clear to auscultation bilaterally no wheezing or crackles Heart regular rate and rhythm S1-S2, no rub or gallop Abdomen is soft nontender nondistended positive bowel sounds no hepatosplenomegaly Extremities no edema Neuro alert and orientated to 3. Intermittent confusion at times history of stroke Results CBC & Chem 7: 03/30/20 22:45 03/30/20 22:45 Labs: Abnormal Lab Results - Last 24 Hours (Table) 03/30/20 03/30/20 03/30/20 Range/Units 21:34 22:45 22:45 RBC 3.13 L (3.80-5.40) m/uL Hgb 9.8 L D (11.4-16.0) gm/dL Hct 30.8 L (34.0-46.0) % RDW 16.1 H (11.5-15.5) % Carbon Dioxide 32 H (22-30) mmol/L BUN 21 H (7-17) mg/dL Glucose 110 H (74-99) mg/dL POC Glucose (mg/dL) 103 H (75-99) mg/dL Total Bilirubin 1.4 H (0.2-1.3) mg/dL AST 67 H (14-36) U/L Lipase 20 L (23-300) U/L Urine Protein (Negative) Urine Glucose (UA) (Negative) 03/30/20 03/31/20 Range/Units 22:45 06:57 RBC (3.80-5.40) m/uL Hgb (11.4-16.0) gm/dL Hct (34.0-46.0) % RDW (11.5-15.5) % Carbon Dioxide (22-30) mmol/L BUN (7-17) mg/dL Glucose (74-99) mg/dL POC Glucose (mg/dL) 365 H (75-99) mg/dL Total Bilirubin (0.2-1.3) mg/dL AST (14-36) U/L Lipase (23-300) U/L Urine Protein Trace H (Negative) Urine Glucose (UA) 1+ H (Negative) Thrombosis Risk Factor Assmnt - Choose All That Apply Any of the Below Risk Factors Present?: Yes Each Factor Represents 1 point: Age 41-60 years Thrombosis Risk Factor Assessment Total Risk Factor Score: 1 Thrombosis Risk Factor Assessment Level: Low Risk Assessment and Plan Assessment: 1. Intractable nausea and vomiting. KUB negative. Will order ultrasound of abdomen. Recheck labs 2. Brittle diabetes mellitus type 1. 3. History of seizures 4. History of stroke 5. Essential hypertension 6. Hyperlipidemia. Maintained on statin 7. History of COPD no exacerbation at this time 8. History of coronary artery disease 9. History of peripheral vascular disease with previous history multiple toe amputations 10. History of iron deficiency anemia DVT prophylaxis Lovenox GI prophylaxis Protonix Ultrasound of abdomen to be completed Regular diet for lunch Possible discharge today Time with Patient: Greater than 30 (Greater than 60% of the total time spent in counseling and coordination of care)
[2020-03-31 11:16] LABS: Glucose,Whole Blood 170 mg/dL (75-99)
--- NOTE | 2020-03-31 11:42 | P.DS ---
Providers Date of admission: 03/31/20 00:45 Expected date of discharge: 03/31/20 Attending physician: Sherlyn Chen Primary care physician: Sherlyn Chen [facility] Course: Discharge diagnosis 1. Intractable nausea and vomiting. KUB negative. Will order ultrasound of abdomen. Recheck labs 2. Brittle diabetes mellitus type 1. 3. History of seizures 4. History of stroke 5. Essential hypertension 6. Hyperlipidemia. Maintained on statin 7. History of COPD no exacerbation at this time 8. History of coronary artery disease 9. History of peripheral vascular disease with previous history multiple toe amputations 10. History of iron deficiency anemia DVT prophylaxis Lovenox GI prophylaxis Protonix Ultrasound of abdomen to be completed Regular diet for lunch Possible discharge today Hospital course This is a 59-year-old female patient well-known to my services who presented with complaints of nausea and vomiting. Per EMS report patient started having issues yesterday throughout the night and had generalized weakness. Patient has a past medical history of brittle diabetes, CVA with left-sided weakness and prior amputation of the first and second toes and multiple hospitalizations. Patient resides with sister and caregiver. Chest x-ray completed showing no active cardiopulmonary disease no change. KUB x-ray completed showing nonacute abdomen no adverse change compared to old exam. Lipase 20. UA negative for infection. Blood sugars have been stable. Patient is eager to be discharged home symptoms have improved. Will order ultrasound of abdomen and recheck labs. Patient to also eat regular diet for lunch and possible discharge later. Patient Condition at Discharge: Stable Plan - Discharge Summary Discharge Rx Participant: No New Discharge Prescriptions: New Ondansetron Odt [Zofran Odt] 4 mg PO Q8HR PRN 3 Days #9 tab PRN Reason: Nausea Continue Famotidine [Pepcid] 20 mg PO DAILY HYDROcodone/APAP 10-325MG [[place] 10-325] 1 tab PO TID PRN PRN Reason: Pain Atorvastatin [Lipitor] 20 mg PO DAILY Aspirin [Adult Low Dose Aspirin EC] 81 mg PO DAILY Ferrous Sulfate [Iron (65 MG Elemental)] 325 mg PO DAILY Divalproex [Depakote] 250 mg PO TID #90 tablet. Albuterol Sulfate [Ventolin HFA] 2 puff INHALATION RT-Q4H PRN PRN Reason: Shortness Of Breath Losartan [Cozaar] 50 mg PO DAILY tab Ascorbic Acid [Vitamin C] 500 mg PO DAILY Vitamin B Complex 1 tab PO DAILY Clopidogrel [Plavix] 75 mg PO DAILY tab QUEtiapine [SEROquel] 50 mg PO HS 30 Days #30 tab Lacosamide [Vimpat] 100 mg PO BID 30 Days #60 tablet Insulin Glargine,Hum.rec.anlog [Basaglar Kwikpen U-100] 10 unit SQ HS #0 DULoxetine HCL [Cymbalta] 30 mg PO DAILY capsule. Metoprolol Tartrate [Lopressor] 12.5 mg PO BID tab Metoclopramide [Reglan] 5 mg PO AC-TID tab QUEtiapine [SEROquel] 25 mg PO DAILY tab ALPRAZolam [Xanax] 0.5 mg PO QID PRN tab PRN Reason: Anxiety Calcium Carb-Vit D 500Mg-200Un [[place] 500+D] 1 tab PO BID-W/MEALS INSULIN LISPRO (humaLOG) [humaLOG] 6 units SQ AC-TID Discharge Medication List Famotidine [Pepcid] 20 mg PO DAILY 07/19/15 [History] HYDROcodone/APAP 10-325MG [[place] 10-325] 1 tab PO TID PRN 10/03/16 [History] Atorvastatin [Lipitor] 20 mg PO DAILY 12/28/18 [History] Aspirin [Adult Low Dose Aspirin EC] 81 mg PO DAILY 06/09/19 [History] Ferrous Sulfate [Iron (65 MG Elemental)] 325 mg PO DAILY 06/09/19 [History] Divalproex [Depakote] 250 mg PO TID #90 tablet. 08/17/19 [Rx] Albuterol Sulfate [Ventolin HFA] 2 puff INHALATION RT-Q4H PRN 12/26/19 [History] Losartan [Cozaar] 50 mg PO DAILY tab 01/18/20 [Rx] Ascorbic Acid [Vitamin C] 500 mg PO DAILY 01/29/20 [History] Vitamin B Complex 1 tab PO DAILY 01/29/20 [History] Clopidogrel [Plavix] 75 mg PO DAILY tab 02/02/20 [Rx] Insulin Glargine,Hum.rec.anlog [Basaglar Kwikpen U-100] 10 unit SQ HS #0 03/13/20 [Rx] Lacosamide [Vimpat] 100 mg PO BID 30 Days #60 tablet 03/13/20 [Rx] QUEtiapine [SEROquel] 50 mg PO HS 30 Days #30 tab 03/13/20 [Rx] ALPRAZolam [Xanax] 0.5 mg PO QID PRN tab 03/26/20 [Rx] DULoxetine HCL [Cymbalta] 30 mg PO DAILY capsule.dr 03/26/20 [Rx] Metoclopramide [Reglan] 5 mg PO AC-TID tab 03/26/20 [Rx] Metoprolol Tartrate [Lopressor] 12.5 mg PO BID tab 03/26/20 [Rx] QUEtiapine [SEROquel] 25 mg PO DAILY tab 03/26/20 [Rx] Calcium Carb-Vit D 500Mg-200Un [[place] 500+D] 1 tab PO BID-W/MEALS 03/31/20 [History] INSULIN LISPRO (humaLOG) [humaLOG] 6 units SQ AC-TID 03/31/20 [History] Ondansetron Odt [Zofran Odt] 4 mg PO Q8HR PRN 3 Days #9 tab 03/31/20 [Rx] Follow up Appointment(s)/Referral(s): Sherlyn Chen MD [Primary Care Provider] - 1-2 days Activity/Diet/Wound Care/Special Instructions: Activity as tolerated Diet consistent carb Discharge Disposition: HOME SELF-CARE
--- NOTE | 2020-03-31 11:46 | US ---
EXAMINATION TYPE: US abdomen complete DATE OF EXAM: 03/31/2020 COMPARISON: NONE CLINICAL HISTORY: n/v. Patient has altered mental status and left arm is fixed against LUQ, patient l aying contorted in bed and cannot hold still, cholecystectomy EXAM MEASUREMENTS: Liver Length: 16.4 cm Gallbladder Wall: Surgically absent CBD: 0.7 cm Spleen: not seen Right Kidney: 9.8 x 4.8 x 4.7 cm Left Kidney: not seen Pancreas: limited views appear wnl Liver: limited views appear wnl Gallbladder: Surgically absent Evidence for sonographic Jane's sign: no CBD: 0.7 cm, normal for postcholecystectomy patient Spleen: unable to image due to patients fixed arm on LUQ and inability to move, bowel gas Right Kidney: wnl Left Kidney: unable to image due to patients fixed arm on LUQ and inability to move, bowel gas Upper IVC: wnl Abd Aorta: wnl IMPRESSION: 1. Limited examination due to patient physical medical conditions this time. 2. Mild hepatomegaly.
[2020-03-31 12:49] LABS: ALT 19 U/L (4-34); AST 45 U/L (14-36); African American GFR (CKD) >90 (>60 ml/min/1.73 sqM); Albumin 3.1 g/dL (3.5-5.0); Albumin/Globulin Ratio 0.9; Alkaline Phosphatase 110 U/L (38-126); Amylase <30 U/L (30-110); Anion Gap 8 mmol/L; Blood Urea Nitrogen 14 mg/dL (7-17); Calcium 8.6 mg/dL (8.4-10.2); Carbon Dioxide 25 mmol/L (22-30); Chloride 100 mmol/L (98-107); Globulin 3.4 g/dL; Glucose 314 mg/dL (74-99); Non-African American GFR(CKD) 88 (>60 ml/min/1.73 sqM); Potassium 4.2 mmol/L (3.5-5.1); Sodium 133 mmol/L (137-145); Total Bilirubin 0.5 mg/dL (0.2-1.3); Total Protein 6.5 g/dL (6.3-8.2)
[2020-03-31 12:56] LABS: Anisocytosis Slight; Basophils % (A) 0 %; Eosinophils % (A) 0 %; HCT 30.3 % (34.0-46.0); HGB 9.1 gm/dL (11.4-16.0); Hypochromasia Moderate; Lymphocytes # (A) 1.7 k/uL (1.0-4.8); Lymphocytes % (A) 31 %; MCH 30.1 pg (25.0-35.0); MCV 100.1 fL (80.0-100.0); Macrocytosis Slight; Mean Platelet Volume 7.4; Monocytes # (A) 0.3 k/uL (0-1.0); Monocytes % (A) 6 %; Neutrophils # (A) 3.3 k/uL (1.3-7.7); Neutrophils % (A) 60 %; Platelet Count 183 k/uL (150-450); RBC 3.03 m/uL (3.80-5.40); RDW 16.1 % (11.5-15.5); WBC 5.5 k/uL (3.8-10.6)
[2020-03-31] MEDS ORDERED: QUEtiapine 50 MG TAB PO SCH (21:00)
[2020-03-31] MEDS ORDERED: INSULIN DETEMIR (LEVEMIR) 100 UNIT/ML SYR SQ SCH (21:00)
[2020-04-01] MEDS ORDERED: ENOXAPARIN 40 MG/0.4 ML SYRINGE SQ SCH (09:00)
[2020-04-01] MEDS ORDERED: PANTOPRAZOLE 40 MG/10 ML VIAL IVP SCH (09:00)
[2020-04-02 07:39] LABS: Glucose,Whole Blood 286 mg/dL (75-99)
== END 2020-03-31 13:54 | disposition home or self-care (01) ==
LOC: EC 21:18 → 6NMEDSUR 03-31 00:45 → 4SSUR 03-31 01:14
PROVIDERS: ADMIT Internal Medicine; ATTEND Internal Medicine
DX: R11.2 Nausea with vomiting, unspecified (principal); R19.7 Diarrhea, unspecified; I69.354 Hemiplegia and hemiparesis following cerebral infarction affecting left non-dominant side; R53.1 Weakness; I25.10 Atherosclerotic heart disease of native coronary artery without angina pectoris; I50.9 Heart failure, unspecified; J44.9 Chronic obstructive pulmonary disease, unspecified; K21.9 Gastro-esophageal reflux disease without esophagitis; E78.5 Hyperlipidemia, unspecified; I11.0 Hypertensive heart disease with heart failure; I25.2 Old myocardial infarction; M19.90 Unspecified osteoarthritis, unspecified site; M54.5 Low back pain; E03.9 Hypothyroidism, unspecified; K59.00 Constipation, unspecified; F31.9 Bipolar disorder, unspecified; F41.9 Anxiety disorder, unspecified; E10.319 Type 1 diabetes mellitus with unspecified diabetic retinopathy without macular edema; E10.51 Type 1 diabetes mellitus with diabetic peripheral angiopathy without gangrene; R56.9 Unspecified convulsions; D50.9 Iron deficiency anemia, unspecified; Z99.3 Dependence on wheelchair; Z79.891 Long term (current) use of opiate analgesic; Z79.02 Long term (current) use of antithrombotics/antiplatelets; Z79.4 Long term (current) use of insulin; Z79.899 Other long term (current) drug therapy; Z79.82 Long term (current) use of aspirin; Z88.5 Allergy status to narcotic agent; Z88.0 Allergy status to penicillin; Z88.8 Allergy status to other drugs, medicaments and biological substances; Z88.1 Allergy status to other antibiotic agents; Z91.030 Bee allergy status; Z86.718 Personal history of other venous thrombosis and embolism; Z87.01 Personal history of pneumonia (recurrent); Z86.19 Personal history of other infectious and parasitic diseases; Z86.14 Personal history of Methicillin resistant Staphylococcus aureus infection; Z96.1 Presence of intraocular lens; Z90.710 Acquired absence of both cervix and uterus; Z90.49 Acquired absence of other specified parts of digestive tract; Z95.5 Presence of coronary angioplasty implant and graft; Z87.891 Personal history of nicotine dependence; Z89.411 Acquired absence of right great toe; Z89.421 Acquired absence of other right toe(s); Z82.49 Family history of ischemic heart disease and other diseases of the circulatory system; Z83.3 Family history of diabetes mellitus; Z82.5 Family history of asthma and other chronic lower respiratory diseases
CPT/HCPCS: 96374; 99285; 36415; 93005; 80053 ×2; 82150; 82550; 82009; 83690 ×2; 84484; 85025 ×2; 81003; 71045; 74018; 76700; G0378; J2765

== ENCOUNTER 2020-04-05 10:37 | Inpatient (IN) | payer OTHER ==
[2020-04-05] MEDS ORDERED: SODIUM CHLORIDE 0.9% 1,000 ML IV STA (10:40)
--- NOTE | 2020-04-05 10:55 | ED ---
General Adult HPI - General Chief complaint: Neuro Symptoms/Deficit Stated complaint: CVA symptoms Time Seen by Provider: 04/05/20 10:40 Source: patient, RN notes reviewed, old records reviewed Mode of arrival: EMS Limitations: altered mental status - History of Present Illness Initial comments: 59-year-old female diabetic, previous CVA presenting with vomiting, lethargy. Transported by EMS uncertain if there was signs of stroke given her left hemipl egia which is baseline for this patient. She does have contracture of the left upper extremity. There was reported increased vomiting over the past several days and her blood sugar had been trending up. Patient is unable to contribute to the history. According to family the patient had been started on several new medications recently. - Related Data Home Medications Medication Instructions Recorded Confirmed Famotidine [Pepcid] 20 mg PO DAILY 07/19/15 04/05/20 HYDROcodone/APAP 10-325MG [[place] 1 tab PO TID PRN 10/03/16 04/05/20 10-325] Atorvastatin [Lipitor] 20 mg PO DAILY 12/28/18 04/05/20 Aspirin [Adult Low Dose Aspirin EC] 81 mg PO DAILY 06/09/19 04/05/20 Ferrous Sulfate [Iron (65 MG 325 mg PO BID 06/09/19 04/05/20 Elemental)] Albuterol Sulfate [Ventolin HFA] 2 puff INHALATION RT-Q4H PRN 12/26/19 04/05/20 Ascorbic Acid [Vitamin C] 500 mg PO DAILY 01/29/20 04/05/20 Vitamin B Complex 1 tab PO DAILY 01/29/20 04/05/20 Calcium Carb-Vit D 500Mg-200Un 1 tab PO BID-W/MEALS 03/31/20 04/05/20 [Oscal 500+D] INSULIN LISPRO (humaLOG) [humaLOG] 6 units SQ AC-TID 03/31/20 04/05/20 Insulin Detemir [Levemir Flextouch] 10 units SQ HS 04/05/20 04/05/20 Lacosamide [Vimpat] 100 mg PO BID 04/05/20 04/05/20 Metoprolol Tartrate [Lopressor] 12.5 mg PO BID 04/05/20 04/05/20 Previous Rx's Medication Instructions Recorded Divalproex [Depakote] 250 mg PO TID #90 tablet. 08/17/19 Losartan [Cozaar] 50 mg PO DAILY tab 01/18/20 Clopidogrel [Plavix] 75 mg PO DAILY tab 02/02/20 QUEtiapine [SEROquel] 50 mg PO HS 30 Days #30 tab 03/13/20 ALPRAZolam [Xanax] 0.5 mg PO QID PRN tab 03/26/20 DULoxetine HCL [Cymbalta] 30 mg PO DAILY capsule. 03/26/20 Metoclopramide [Reglan] 5 mg PO AC-TID tab 03/26/20 QUEtiapine [SEROquel] 25 mg PO DAILY tab 03/26/20 Ondansetron Odt [Zofran Odt] 4 mg PO Q8HR PRN 3 Days #9 tab 03/31/20 Allergies Allergy/AdvReac Type Severity Reaction Status Date / Time Barbiturates Allergy Rash/Hives Verified 03/31/20 10:22 cephalexin monohydrate Allergy Rash/Hives Verified 03/31/20 10:22 [From Keflex] morphine Allergy Rash/Hives Verified 03/31/20 10:22 Penicillins Allergy Rash/Hives Verified 03/31/20 10:22 phenobarbital Allergy Swelling Verified 03/31/20 10:22 venom-honey bee Allergy Swelling Verified 03/31/20 10:22 [bee venom (honey bee)] amlodipine besylate AdvReac Vomiting Verified 03/31/20 10:22 [From Norvasc] Review of Systems ROS Statement: Those systems with pertinent positive or pertinent negative responses have been documented in the HPI. ROS Other: All systems not noted in ROS Statement are negative. Past Medical History Past Medical History: Asthma, Coronary Artery Disease (CAD), Chest Pain / Angina, Heart Failure, COPD, CVA/TIA, Diabetes Mellitus, Deep Vein Thrombosis (DVT), Eye Disorder, GERD/Reflux, Hyperlipidemia, Hypertension, Myocardial I nfarction ([place]), Neurologic Disorder, Osteoarthritis (OA), Pneumonia, Renal Disease Additional Past Medical History / Comment(s): IDDM (brittle), DKAs, neuropathy bilateral hands/feet, retinopathy bilateral eyes, cellulitis R foot, R great toe and 2nd toe infections/amputations, current wound R foot-being seen in [facility], renal failure, anemia, CVAs with L sided paralysis, headaches started after CVAs, brain lesions, DVT R axillae, low back pain, varicosities, seizure many ye ars ago (2001), hypothyroid, constipation, bilateral tinnitis occasionally, sinus problems. Last Myocardial Infarction Date:: 2011 History of Any Multi-Drug Resistant Organisms: MRSA Date of last positivie culture/infection: 09/06/17 MDRO Source:: Right Foot Past Surgical History: Appendectomy, Section, Cholecystectomy, Heart Catheterization With Stent, Hysterectomy, Orthopedic Surgery Additional Past Surgical History / Comment(s): PCI with multiple stents, R great toe and 2nd toe amps, debridements R foot ulcer, L shoulder surgery to remove bone, bronchoscopy, EGD, colonoscopy, R arm port since removed, bilateral cataract removals/lens implants. Past Anesthesia/Blood Transfusion Reactions: No Reported Reaction Additional Past Anesthesia/Blood Transfusion Reaction / Comment(s): HX OF BLOOD TRANSFUSION- NO REACTION Date of Last Stent Placement:: July 2012 Past Psychological History: Anxiety, Bipolar, Depression Smoking Status: Never smoker Past Alcohol Use History: None Reported Past Drug Use History: Marijuana - Past Family History Father Family Medical History: Unable to Obtain, Coronary Artery Disease (CAD), Diabetes Mellitus Mother Family Medical History: COPD General Exam Limitations: altered mental status General appearance: in no apparent distress, lethargic Head exam: Present: atraumatic, normocephalic Eye exam: Present: normal appearance, PERRL ENT exam: Present: mucous membranes dry Neck exam: Present: normal inspection. Absent: tenderness, meningismus Respiratory exam: Present: normal lung sounds bilaterally. Absent: respiratory distress, wheezes Cardiovascular Exam: Present: regular rate, normal rhythm GI/Abdominal exam: Present: soft. Absent: distended, tenderness, guarding, rebound Neurological exam: Present: alert, motor sensory deficit (Left hemiplegia, left- sided facial droop). Absent: oriented X3 Skin exam: Present: warm, dry, intact Course Vital Signs 04/05/20 04/05/20 04/05/20 10:40 11:45 12:16 Temperature 97.9 F Pulse Rate 85 81 85 Respiratory 18 16 17 Rate Blood Pressure 174/74 130/66 157/75 O2 Sat by Pulse 93 L 96 96 Oximetry 04/05/20 12:49 Temperature Pulse Rate 78 Respiratory 18 Rate Blood Pressure 141/72 O2 Sat by Pulse 96 Oximetry EKG Findings - EKG Comments: EKG Findings:: EKG: Sinus tachycardia, rate of 114, KS interval 158, QRS duration 88, QTC 465, they report quality EKG, no ST segment elevation. Medical Decision Making - Medical Decision Making 59-year-old female with altered mental status, vomiting. Patient has previous CVA, head CT showed large encephalomalacia, no active bleed or acute stroke on CT. Chest x-rays negative for acute cardio pulmonary disease. She has normal white blood cell count, stable hemoglobin. She has normal electrolytes, mild lactic acidosis. She's given IV fluids. Case discussed with Dr. Chen who will admit. Neurology placed on consult. - Lab Data Result diagrams: 04/05/20 10:57 04/05/20 10:57 Lab Results 04/05/20 04/05/20 04/05/20 Range/Units 10:46 10:57 10:57 WBC 10.1 (3.8-10.6) k/uL RBC 3.17 L (3.80-5.40) m/uL Hgb 9.9 L (11.4-16.0) gm/dL Hct 31.0 L (34.0-46.0) % MCV 97.9 (80.0-100.0) fL MCH 31.3 (25.0-35.0) pg MCHC 32.0 (31.0-37.0) g/dL RDW 16.6 H (11.5-15.5) % Plt Count 196 (150-450) k/uL Neutrophils % 66 % Lymphocytes % 28 % Monocytes % 5 % Eosinophils % 0 % Basophils % 0 % Neutrophils # 6.6 (1.3-7.7) k/uL Lymphocytes # 2.8 (1.0-4.8) k/uL Monocytes # 0.5 (0-1.0) k/uL Eosinophils # 0.0 (0-0.7) k/uL Basophils # 0.0 (0-0.2) k/uL Anisocytosis Slight Macrocytosis Slight PT 9.5 (9.0-12.0) sec INR 0.9 (<1.2) APTT 20.2 L (22.0-30.0) sec Sodium (137-145) mmol/L Potassium (3.5-5.1) mmol/L Chloride (98-107) mmol/L Carbon Dioxide (22-30) mmol/L Anion Gap mmol/L BUN (7-17) mg/dL Creatinine (0.52-1.04) mg/dL Est GFR (CKD-EPI)AfAm (>60 ml/min/1.73 sqM) Est GFR (CKD-EPI)NonAf (>60 ml/min/1.73 sqM) Glucose (74-99) mg/dL POC Glucose (mg/dL) 130 H (75-99) mg/dL POC Glu Weather Strip Installer ID Lucinda Foy Plasma Lactic Acid Conrado (0.7-2.0) mmol/L Calcium (8.4-10.2) mg/dL Magnesium (1.6-2.3) mg/dL Total Bilirubin (0.2-1.3) mg/dL AST (14-36) U/L ALT (4-34) U/L Alkaline Phosphatase (38-126) U/L Troponin I (0.000-0.034) ng/mL Total Protein (6.3-8.2) g/dL Albumin (3.5-5.0) g/dL Urine Color Urine Appearance (Clear) Urine pH (5.0-8.0) Ur Specific [place] (1.001-1.035) Urine Protein (Negative) Urine Glucose (UA) (Negative) Urine Ketones (Negative) Urine Blood (Negative) Urine Nitrite (Negative) Urine Bilirubin (Negative) Urine Urobilinogen (<2.0) mg/dL Ur Leukocyte Esterase (Negative) Urine WBC (0-5) /hpf Urine Bacteria (None) /hpf Hyaline Casts (0-2) /lpf Urine Mucus (None) /hpf Acetone, Qual (Negative) 04/05/20 04/05/20 04/05/20 Range/Units 10:57 10:57 10:57 WBC (3.8-10.6) k/uL RBC (3.80-5.40) m/uL Hgb (11.4-16.0) gm/dL Hct (34.0-46.0) % MCV (80.0-100.0) fL MCH (25.0-35.0) pg MCHC (31.0-37.0) g/dL RDW (11.5-15.5) % Plt Count (150-450) k/uL Neutrophils % % Lymphocytes % % Monocytes % % Eosinophils % % Basophils % % Neutrophils # (1.3-7.7) k/uL Lymphocytes # (1.0-4.8) k/uL Monocytes # (0-1.0) k/uL Eosinophils # (0-0.7) k/uL Basophils # (0-0.2) k/uL Anisocytosis Macrocytosis PT (9.0-12.0) sec INR (<1.2) APTT (22.0-30.0) sec Sodium 136 L (137-145) mmol/L Potassium 4.7 (3.5-5.1) mmol/L Chloride 99 (98-107) mmol/L Carbon Dioxide 31 H (22-30) mmol/L Anion Gap 6 mmol/L BUN 21 H (7-17) mg/dL Creatinine 1.12 H (0.52-1.04) mg/dL Est GFR (CKD-EPI)AfAm 62 (>60 ml/min/1.73 sqM) Est GFR (CKD-EPI)NonAf 54 (>60 ml/min/1.73 sqM) Glucose 130 H (74-99) mg/dL POC Glucose (mg/dL) (75-99) mg/dL POC Glu Weather Strip Installer ID Plasma Lactic Acid Conrado 2.6 H* (0.7-2.0) mmol/L Calcium 9.5 (8.4-10.2) mg/dL Magnesium 1.9 (1.6-2.3) mg/dL Total Bilirubin 0.5 (0.2-1.3) mg/dL AST 34 (14-36) U/L ALT 17 (4-34) U/L Alkaline Phosphatase 89 (38-126) U/L Troponin I (0.000-0.034) ng/mL Total Protein 7.7 (6.3-8.2) g/dL Albumin 3.8 (3.5-5.0) g/dL Urine Color Yellow Urine Appearance Clear (Clear) Urine pH 7.5 (5.0-8.0) Ur Specific [place] 1.017 (1.001-1.035) Urine Protein Trace H (Negative) Urine Glucose (UA) Negative (Negative) Urine Ketones Negative (Negative) Urine Blood Negative (Negative) Urine Nitrite Negative (Negative) Urine Bilirubin Negative (Negative) Urine Urobilinogen <2.0 (<2.0) mg/dL Ur Leukocyte Esterase Trace H (Negative) Urine WBC 3 (0-5) /hpf Urine Bacteria Moderate H (None) /hpf Hyaline Casts 1 (0-2) /lpf Urine Mucus Rare H (None) /hpf Acetone, Qual Negative (Negative) 04/05/20 Range/Units 10:57 WBC (3.8-10.6) k/uL RBC (3.80-5.40) m/uL Hgb (11.4-16.0) gm/dL Hct (34.0-46.0) % MCV (80.0-100.0) fL MCH (25.0-35.0) pg MCHC (31.0-37.0) g/dL RDW (11.5-15.5) % Plt Count (150-450) k/uL Neutrophils % % Lymphocytes % % Monocytes % % Eosinophils % % Basophils % % Neutrophils # (1.3-7.7) k/uL Lymphocytes # (1.0-4.8) k/uL Monocytes # (0-1.0) k/uL Eosinophils # (0-0.7) k/uL Basophils # (0-0.2) k/uL Anisocytosis Macrocytosis PT (9.0-12.0) sec INR (<1.2) APTT (22.0-30.0) sec Sodium (137-145) mmol/L Potassium (3.5-5.1) mmol/L Chloride (98-107) mmol/L Carbon Dioxide (22-30) mmol/L Anion Gap mmol/L BUN (7-17) mg/dL Creatinine (0.52-1.04) mg/dL Est GFR (CKD-EPI)AfAm (>60 ml/min/1.73 sqM) Est GFR (CKD-EPI)NonAf (>60 ml/min/1.73 sqM) Glucose (74-99) mg/dL POC Glucose (mg/dL) (75-99) mg/dL POC Glu Weather Strip Installer ID Plasma Lactic Acid Con[place]ado (0.7-2.0) mmol/L Calcium (8.4-10.2) mg/dL Magnesium (1.6-2.3) mg/dL Total Bilirubin (0.2-1.3) mg/dL AST (14-36) U/L ALT (4-34) U/L Alkaline Phosphatase (38-126) U/L Troponin I <0.012 (0.000-0.034) ng/mL Total Protein (6.3-8.2) g/dL Albumin (3.5-5.0) g/dL Urine Color Urine Appearance (Clear) Urine pH (5.0-8.0) Ur Specific [place] (1.001-1.035) Urine Protein (Negative) Urine Glucose (UA) (Negative) Urine Ketones (Negative) Urine Blood (Negative) Urine Nitrite (Negative) Urine Bilirubin (Negative) Urine Urobilinogen (<2.0) mg/dL Ur Leukocyte Esterase (Negative) Urine WBC (0-5) /hpf Urine Bacteria (None) /hpf Hyaline Casts (0-2) /lpf Urine Mucus (None) /hpf Acetone, Qual (Negative) Disposition Clinical Impression: Anemia, Nausea & vomiting, Acute encephalopathy, Altered mental status Disposition: ADMITTED IP TO THIS [facility] Condition: Stable Is patient prescribed a controlled substance at d/c from ED?: No Referrals: Sherlyn Chen MD [Primary Care Provider] - 1-2 days Decision to Admit Reason: Admit from EC Decision Date: 04/05/20 Decision Time: 13:12
[2020-04-05 10:58] LABS: Glucose,Whole Blood 130 mg/dL (75-99)
[2020-04-05 11:19] LABS: Anisocytosis Slight; Basophils % (A) 0 %; Eosinophils % (A) 0 %; HGB 9.9 gm/dL (11.4-16.0); Lymphocytes # (A) 2.8 k/uL (1.0-4.8); Lymphocytes % (A) 28 %; MCH 31.3 pg (25.0-35.0); MCV 97.9 fL (80.0-100.0); Macrocytosis Slight; Mean Platelet Volume 7.3; Monocytes # (A) 0.5 k/uL (0-1.0); Monocytes % (A) 5 %; Neutrophils # (A) 6.6 k/uL (1.3-7.7); Neutrophils % (A) 66 %; Platelet Count 196 k/uL (150-450); RBC 3.17 m/uL (3.80-5.40); RDW 16.6 % (11.5-15.5); WBC 10.1 k/uL (3.8-10.6)
[2020-04-05 11:39] LABS: Appearance,Urine Clear (Clear); Bacteria,Urine Moderate /hpf; Bilirubin,Urine Negative (Negative); Blood,Urine Negative (Negative); Color,Urine Yellow; Glucose,Urine (UA) Negative (Negative); Hyaline Casts,Urine 1 /lpf (0-2); Ketones,Urine Negative (Negative); Leukocyte Esterase,Urine Trace (Negative); Mucus,Urine Rare /hpf; Nitrite,Urine Negative (Negative); PH, Urine 7.5 (5.0-8.0); Protein,Urine Trace (Negative); Specific Gravity,Urine 1.017 (1.001-1.035); Urobilinogen,Urine <2.0 mg/dL (<2.0); WBC,Urine 3 /hpf (0-5)
[2020-04-05 11:42] LABS: ALT 17 U/L (4-34); AST 34 U/L (14-36); African American GFR (CKD) 62 (>60 ml/min/1.73 sqM); Albumin 3.8 g/dL (3.5-5.0); Alkaline Phosphatase 89 U/L (38-126); Anion Gap 6 mmol/L; Blood Urea Nitrogen 21 mg/dL (7-17); Calcium 9.5 mg/dL (8.4-10.2); Carbon Dioxide 31 mmol/L (22-30); Chloride 99 mmol/L (98-107); Glucose 130 mg/dL (74-99); Magnesium 1.9 mg/dL (1.6-2.3); Non-African American GFR(CKD) 54 (>60 ml/min/1.73 sqM); Sodium 136 mmol/L (137-145); Total Bilirubin 0.5 mg/dL (0.2-1.3); Total Protein 7.7 g/dL (6.3-8.2)
[2020-04-05 11:44] LABS: INR 0.9 (<1.2); Prothrombin Time 9.5 sec (9.0-12.0)
[2020-04-05 12:07] LABS: Potassium 4.7 mmol/L (3.5-5.1)
--- NOTE | 2020-04-05 12:24 | CT ---
EXAMINATION TYPE: CT brain wo con DATE OF EXAM: 04/05/2020 HISTORY: Weakness. CT DLP: 1040.4 mGycm. Automated Exposure Control for Dose Reduction was Utilized. TECHNIQUE: CT scan of the head is performed without contrast. COMPARISON: 03/01/2020 CT brain FINDINGS: Redemonstrated large encephalomalacia of the right anterior cerebral hemisphere There is no acute int racranial hemorrhage, midline shift, or mass effect identified. The ventricles, sulci, and cisterns a re normal in size and configuration. No extra-axial fluid collection. Bones and extracranial soft tissues are intact. The globes are gross ly symmetric. Visualized sinuses and mastoid air cells are clear. IMPRESSION: 1. No acute intracranial hemorrhage, midline shift, or mass effect. 2. Old large encephalomalacia of the right anterior cerebral hemisphere redemonstrated.
--- NOTE | 2020-04-05 12:25 | XR ---
EXAMINATION TYPE: XR chest 1V portable DATE OF EXAM: 04/05/2020 COMPARISON: 08/18/2019 INDICATION: Acute mental status change TECHNIQUE: Single frontal view of the chest is obtained. FINDINGS: The heart size is normal. The pulmonary vasculature is normal. The lungs are clear. IMPRESSION: 1. No acute pulmonary process.
[2020-04-05 12:35] LABS: Partial Thromboplastin Time 20.2 sec (22.0-30.0)
[2020-04-05] MEDS ORDERED: NALOXONE 0.4 MG/ML 1 ML VIAL IV PRN (13:08)
[2020-04-05] MEDS: SODIUM CHLORIDE 0.9% 1,000 ML IV SCH (13:31)
[2020-04-05] MEDS: DIVALPROEX 250 MG TABLET.DR PO SCH ×3 (16:04→22:15)
[2020-04-05] MEDS ORDERED: LACOSAMIDE IV 200 MG in SODIUM CHLORIDE 0.9% 50 ML IVPB STA (18:26)
--- NOTE | 2020-04-05 18:37 | P.CNNES ---
History of Present Illness Consult date: 04/05/20 Requesting physician: Darius Marrero Reason for Consult: altered mental status History of Present Illness: This is a 59-year-old woman with medical history of stroke in 2015 (encephalomalacia over the right frontal parietal and temporal lobe) with residual left hemiparesis and symptomatic right ICA stenosis, asymptomatic left ICA stenosis, seizure disorder, diabetes, multiple admissions for DKA, hypertension, ex tobacco use (stopped 2014) that presented to the emergency department on 04/05/2020 for altered mental status. The patient is well-known to the neurology service since she has multiple hospital admissions for altered mental status due to toxic metabolic encephalopathy secondary due to the multiple DKA is as well as seizure-like activity. Patient is accompanied with her daughter was at bedside. Patient presented today to the ED with vomiting and lethargy for past 2-3 days. Over the past couple day and her blood sugar are trending up. Per her daughter she could not keep anything down. Her daughter noticed that today around 12:00 in afternoon and the patient was staring off and she had an extensor posture of upper extremity lasting few minutes. During the episode she was nonresponsive. Other than that she feels the patient now is back to her baseline. Workup in the ED consisted of: Initial vital signs: Blood pressure of 174/74, heart rate of 85, respiratory of 18, temperature of 97.9 Fahrenheit and the pulse ox 93 L at room air. CT of the head is reported as no acute intracranial hemorrhage, midline shift or mass effect. Old large and supplements over the right anterior cerebral hemisphere redemonstrated. I personally reviewed the CT of the head and I agree with her heart. Chest x-ray reported as no acute pulmonary process. EKG is reported as sinus tachycardia. Right atrial enlargement. Nonspecific ST abnormality. Abnormal EKG. POC glucose is 1:30. Sodium is 136. Creatinine is 1.12. Last time she was seen by neurology team was on 03/22/2020 and that was the pr ogress note written by my colleague Dr. Zuniga and she was here for altered mental status possibly due to hypoglycemia. A concern was also for comp exposure seizure. On our last progress note the was recommended for the patient continue Vimpat 150 mg twice a day and to continue Depakote 250 mg 3 times a day. Review of Systems Review of system: The 12 point system was reviewed and apparent positive and negative per HPI. Past Medical History Past Medical History: Asthma, Coronary Artery Disease (CAD), Chest Pain / Angina, Heart Failure, COPD, CVA/TIA, Diabetes Mellitus, Deep Vein Thrombosis (DVT), Eye Disorder, GERD/Reflux, Hyperlipidemia, Hypertension, Myocardial Infarction ([place]), Neurologic Disorder, Osteoarthritis (OA), Pneumonia, Renal Disease Additional Past Medical History / Comment(s): IDDM (brittle), DKAs, neuropathy bilateral hands/feet, retinopathy bilateral eyes, cellulitis R foot, R great toe and 2nd toe infections/amputations, current wound R foot-being seen in [facility], renal failure, anemia, CVAs with L sided paralysis, headaches started after CVAs, brain lesions, DVT R axillae, low back pain, varicosities, seizure many years ago (2001), hypothyroid, constipation, bilateral tinnitis occasionally, sinus problems. Last Myocardial Infarction Date:: 2011 History of Any Multi-Drug Resistant Organisms: MRSA Date of last positivie culture/infection: 09/06/17 MDRO Source:: Right Foot Past Surgical History: Appendectomy, Section, Cholecystectomy, Heart Catheterization With Stent, Hysterectomy, Orthopedic Surgery Additional Past Surgical History / Comment(s): PCI with multiple stents, R great toe and 2nd toe amps, debridements R foot ulcer, L shoulder surgery to remove bone, bronchoscopy, EGD, colonoscopy, R arm port since removed, bilateral cataract removals/lens implants. Past Anesthesia/Blood Transfusion Reactions: No Reported Reaction Additional Past Anesthesia/Blood Transfusion Reaction / Comment(s): HX OF BLOOD TRANSFUSION- NO REACTION Date of Last Stent Placement:: July 2012 Past Psychological History: Anxiety, Bipolar, Depression Smoking Status: Never smoker Past Alcohol Use History: None Reported Past Drug Use History: Marijuana - Past Family History Father Family Medical History: Unable to Obtain, Coronary Artery Disease (CAD), Diabetes Mellitus Mother Family Medical History: COPD Medications and Allergies Home Medications Medication Instructions Recorded Confirmed Type Famotidine [Pepcid] 20 mg PO DAILY 07/19/15 04/05/20 History HYDROcodone/APAP 10-325MG [[place] 1 tab PO TID PRN 10/03/16 04/05/20 History 10-325] Atorvastatin [Lipitor] 20 mg PO DAILY 12/28/18 04/05/20 History Aspirin [Adult Low Dose Aspirin EC] 81 mg PO DAILY 06/09/19 04/05/20 History Ferrous Sulfate [Iron (65 MG 325 mg PO BID 06/09/19 04/05/20 History Elemental)] Divalproex [Depakote] 250 mg PO TID #90 tablet. 08/17/19 04/05/20 Rx Albuterol Sulfate [Ventolin HFA] 2 puff INHALATION RT-Q4H PRN 12/26/19 04/05/20 History Losartan [Cozaar] 50 mg PO DAILY tab 01/18/20 04/05/20 Rx Ascorbic Acid [Vitamin C] 500 mg PO DAILY 01/29/20 04/05/20 History Vitamin B Complex 1 tab PO DAILY 01/29/20 04/05/20 History Clopidogrel [Plavix] 75 mg PO DAILY tab 02/02/20 04/05/20 Rx QUEtiapine [SEROquel] 50 mg PO HS 30 Days #30 tab 03/13/20 04/05/20 Rx ALPRAZolam [Xanax] 0.5 mg PO QID PRN tab 03/26/20 04/05/20 Rx DULoxetine HCL [Cymbalta] 30 mg PO DAILY capsule. 03/26/20 04/05/20 Rx Metoclopramide [Reglan] 5 mg PO AC-TID tab 03/26/20 04/05/20 Rx QUEtiapine [SEROquel] 25 mg PO DAILY tab 03/26/20 04/05/20 Rx Calcium Carb-Vit D 500Mg-200Un 1 tab PO BID-W/MEALS 03/31/20 04/05/20 History [[place]scal 500+D] INSULIN LISPRO (humaLOG) [humaLOG] 6 units SQ AC-TID 03/31/20 04/05/20 History Ondansetron Odt [Zofran Odt] 4 mg PO Q8HR PRN 3 Days #9 tab 03/31/20 04/05/20 Rx Insulin Detemir [Levemir Flextouch] 10 units SQ HS 04/05/20 04/05/20 History Lacosamide [Vimpat] 100 mg PO BID 04/05/20 04/05/20 History Metoprolol Tartrate [Lopressor] 12.5 mg PO BID 04/05/20 04/05/20 History Allergies Allergy/AdvReac Type Severity Reaction Status Date / Time Barbiturates Allergy Rash/Hives Verified 03/31/20 10:22 cephalexin monohydrate Allergy Rash/Hives Verified 03/31/20 10:22 [From Keflex] morphine Allergy Rash/Hives Verified 03/31/20 10:22 Penicillins Allergy Rash/Hives Verified 03/31/20 10:22 phenobarbital Allergy Swelling Verified 03/31/20 10:22 venom-honey bee Allergy Swelling Verified 03/31/20 10:22 [bee venom (honey bee)] amlodipine besylate AdvReac Vomiting Verified 03/31/20 10:22 [facility] Physical Examination - Vital Signs Vital Signs: Vital Signs Temp Pulse Resp BP Pulse Ox 04/05/20 13:33 83 18 132/75 98 04/05/20 12:49 78 18 141/72 96 04/05/20 12:16 85 17 157/75 96 04/05/20 11:45 81 16 130/66 96 04/05/20 10:40 97.9 F 85 18 174/74 93 L Intake and Output 04/04/20 04/05/20 04/05/20 22:59 06:59 14:59 Other: Weight 58.967 kg GENERAL: The patient is lying in bed and is not in acute distress. CHEST: The heart rate is regular rate rhythm. No murmurs to auscultation. LUNG: Clear to auscultation bilaterally no wheezing noted throughout. Not labored breathing. ABDOMEN/GI: Bowel sounds present in all 4 quadrants. No tenderness to palpation throughout. MUSCULOSKELETAL: right foot digit 1, 2 and 5th digits are amputated. NEUROLOGICAL: Higher mental function: The patient is drowsy but awakeable oriented to self, place and time. Patient is following commands. No aphasia and no neglect. Cranial nerves: The pupils are round, equal (4mm) and reactive to light. Visual campuzano left lower field cut to confrontation.. Extraocular movement is intact no nystagmus is noted. Facial sensation is normal to touch throughout. The facial strength is left nasolabial flattening. Hearing is normal bilaterally to hand rub. Tongue is midline and moved [id number] without any difficulty. +ve mild to moderate dysarthria is noted. Motor: Gait is deferred. Left upper extremity strength is 0 out of 5. Left lower extremity is 4 positive. Otherwise the right upper and lower extremities 5 out of 5. Increased tone in the left upper extremity especially at the hand. Sensation: Sensation to touch throughout. Reflexes: Brisk over the left side which seems 3 positive while 1+ positive throughout. Plantars Left toe was upgoing. While the right unable to assess since the Results Patient lactic acid is 2.6. AST is 34, ALTs 17. Urine analysis appears clear, leukocyte esterase is trace, urine bacteria was moderate Acetone is negative. - Laboratory Findings CBC and BMP: 04/05/20 10:57 04/05/20 10:57 Abnormal Lab Findings: Abnormal Labs 04/05/20 04/05/20 04/05/20 10:46 10:57 10:57 RBC 3.17 L Hgb 9.9 L Hct 31.0 L RDW 16.6 H APTT 20.2 L Sodium Carbon Dioxide BUN Creatinine Glucose POC Glucose (mg/dL) 130 H Plasma Lactic Acid Conrado Urine Protein Ur Leukocyte Esterase Urine Bacteria Urine Mucus 04/05/20 04/05/20 04/05/20 10:57 10:57 10:57 RBC Hgb Hct RDW APTT Sodium 136 L Carbon Dioxide 31 H BUN 21 H Creatinine 1.12 H Glucose 130 H POC Glucose (mg/dL) Plasma Lactic Acid Conrado 2.6 H* Urine Protein Trace H Ur Leukocyte Esterase Trace H Urine Bacteria Moderate H Urine Mucus Rare H Assessment and Plan Assessment: Provoked Seizure since patient having Vomitting episode for past 2-3 days Histroy of Right hemispheric stroke with residual left-sided weakness Right ICA occlusion Asymptomatic left ICA stenosis Acute kidney insufficiency Brittle diabetes Multiple admission for the Diabetic ketoacidosis X tobacco use Hyperlipidemia Hypertension History of myocardial infarction History of coronary artery disease Plan: Because the patient missed her medication last 2-3 days because of vomiting all load that the patient will Vimpat 200 mg once at night then the patient to resume home 150 mg twice a day. Continue continue Depakote 250 mg 3 times a day. EEG is not warranted since the patient condition has improved. ED ordered blood culture and that is pending. We'll defer any underlying infection to the primary team. The patient condition remains to be stable and no further seizure-like episode the next 24 hours then no further neurological workup is needed. Thank You for the consultation. Dr. Gallagher will be on neurology service from 04/06/20-04/07/20. Bairon Kearns M.D. Neuro-hospitalist Time with Patient: Greater than 30
[2020-04-05] MEDS ORDERED: ONDANSETRON ODT 4 MG TAB PO PRN (20:16)
[2020-04-05] MEDS ORDERED: ALBUTEROL NEBULIZED 2.5 MG/3 ML INHALATION PRN (20:16)
[2020-04-05 20:27] LABS: Glucose,Whole Blood 100 mg/dL (75-99)
[2020-04-05 20:59] LABS: Glucose,Whole Blood 136 mg/dL (75-99)
[2020-04-05] MEDS ORDERED: NON FORMULARY DRUG (Lacosamide [Vimpat] 100 MG Tablet) PO SCH (21:00)
[2020-04-05] MEDS ORDERED: LACOSAMIDE IV 150 MG in SODIUM CHLORIDE 0.9% 50 ML IVPB SCH (21:00)
[2020-04-05 21:43] LABS: Glucose,Whole Blood 148 mg/dL (75-99)
[2020-04-05] MEDS: METOPROLOL TARTRATE 12.5 MG TAB PO SCH (21:47)
[2020-04-05] MEDS: QUEtiapine 50 MG TAB PO SCH (21:47)
[2020-04-05] MEDS: FERROUS SULFATE 325 MG TAB PO SCH (21:47)
[2020-04-05] MEDS: ALPRAZolam 0.5 MG TAB PO PRN (21:47)
[2020-04-05] MEDS: INSULIN DETEMIR (LEVEMIR) 100 UNIT/ML SYR SQ SCH (21:47)
[2020-04-05] MEDS ORDERED: DIVALPROEX 250 MG TABLET.DR PO SCH (22:00)
[2020-04-06 02:20] LABS: Glucose,Whole Blood 301 mg/dL (75-99)
[2020-04-06] MEDS: HYDROcodone/APAP 10-325MG 1 EACH TAB PO PRN ×2 (02:50→20:26)
[2020-04-06] MEDS: ALPRAZolam 0.5 MG TAB PO PRN ×2 (03:21→21:25)
[2020-04-06 07:00] LABS: Glucose,Whole Blood 164 mg/dL (75-99)
[2020-04-06 07:32] LABS: Anisocytosis Slight; Basophils % (A) 0 %; Eosinophils % (A) 0 %; HCT 25.4 % (34.0-46.0); Hypochromasia Slight; Lymphocytes # (A) 2.1 k/uL (1.0-4.8); Lymphocytes % (A) 31 %; MCHC 29.9 g/dL (31.0-37.0); MCV 100.4 fL (80.0-100.0); Macrocytosis Slight; Mean Platelet Volume 7.4; Monocytes # (A) 0.4 k/uL (0-1.0); Monocytes % (A) 5 %; Neutrophils # (A) 4.1 k/uL (1.3-7.7); Neutrophils % (A) 62 %; Platelet Count 147 k/uL (150-450); RBC 2.53 m/uL (3.80-5.40); WBC 6.6 k/uL (3.8-10.6)
[2020-04-06 07:49] LABS: HGB 7.6 gm/dL (11.4-16.0)
[2020-04-06] MEDS: SODIUM CHLORIDE 0.9% 1,000 ML IV SCH ×2 (08:24→13:06)
[2020-04-06] MEDS ORDERED: NON FORMULARY DRUG (Vitamin B Complex [Vitamin B Complex] 1 EACH Capsule) PO SCH (09:00)
[2020-04-06] MEDS ORDERED: CLOPIDOGREL 75 MG TAB PO SCH (09:00)
[2020-04-06] MEDS ORDERED: FAMOTIDINE 20 MG TAB PO SCH (09:00)
[2020-04-06] MEDS: FERROUS SULFATE 325 MG TAB PO SCH ×2 (09:13→20:26)
[2020-04-06] MEDS: ATORVASTATIN 20 MG TAB PO SCH (09:14)
[2020-04-06] MEDS: CALCIUM CARB-VIT D 500MG-200UN 1 EACH TAB PO SCH ×2 (09:14→16:58)
[2020-04-06] MEDS: LOSARTAN 50 MG TAB PO SCH (09:14)
[2020-04-06] MEDS: METOPROLOL TARTRATE 12.5 MG TAB PO SCH ×2 (09:14→20:26)
[2020-04-06] MEDS: QUEtiapine 25 MG TAB PO SCH (09:14)
[2020-04-06] MEDS: METOCLOPRAMIDE 5 MG TAB PO SCH ×3 (09:15→16:58)
[2020-04-06] MEDS: ASCORBIC ACID 500 MG TAB PO SCH (09:15)
[2020-04-06] MEDS: INSULIN ASPART (NovoLOG) 100 UNIT/ML VIAL SQ SCH ×3 (09:15→17:04)
[2020-04-06] MEDS: DULoxetine HCL 30 MG CAPSULE.DR PO SCH (09:16)
[2020-04-06] MEDS: DIVALPROEX 250 MG TABLET.DR PO SCH ×3 (09:16→20:27)
[2020-04-06] MEDS ORDERED: SODIUM FERRIC GLUCONAT-SUCROSE 125 MG in SODIUM CHLORIDE 0.9% 100 ML IVPB ONE (09:50)
--- NOTE | 2020-04-06 09:50 | P.HPIM ---
History of Present Illness H&P Date: 04/06/20 Melva Jackson, is a 59-year-old female who presented to [facility] emergency room with a chief complaint of mental status changes with worsening somnolence and episodes of vomiting, she was evaluated in the emergency room, vital examination on presentation reveals a temperature of 97.9 pulse 85 respiration 18 blood pressure 174/74 pulse ox 93% on room air, white blood count was 10.1 hemoglobin 9.9 platelet count 196 sodium 136 BUN 21 creatinine 1.12 glucose 113 lactic acid 1.2 urine analysis revealed trace leukocyte esterase with moderate bacteria, chest x-ray revealed no acute pulmonary process, computed tomography scan of the brain revealed no evidence of acute intracranial hemorrhage or midline shift there was a large area of old encephalomalacic of the right anterior cerebral hemisphere related to previous stroke. Patient was admitted to telemetry floor neurology consultation was requested due to concern of a recurrent stroke. Patient has a known history of insulin-dependent diabetes mellitus type 1 history of hypertension, history of hyperlipidemia, history of seizure disorder, history of asthma, and history of psychosis. Past Medical History Past Medical History: Asthma, Coronary Artery Disease (CAD), Chest Pain / A ngina, Heart Failure, COPD, CVA/TIA, Diabetes Mellitus, Deep Vein Thrombosis (DVT), Eye Disorder, GERD/Reflux, Hyperlipidemia, Hypertension, Myocardial Infarction ([place]), Neurologic Disorder, Osteoarthritis (OA), Pneumonia, Renal Disease Additional Past Medical History / Comment(s): IDDM (brittle), DKAs, neuropathy bilateral hands/feet, retinopathy bilateral eyes, cellulitis R foot, R great toe and 2nd toe infections/amputations, current wound R foot-being seen in [facility], marisel al failure, anemia, CVAs with L sided paralysis, headaches started after CVAs, brain lesions, DVT R axillae, low back pain, varicosities, seizure many years ago (2001), hypothyroid, constipation, bilateral tinnitis occasionally, sinus problems. Last Myocardial Infarction Date:: 2011 History of Any Multi-Drug Resistant Organisms: MRSA Date of last positivie culture/infection: 09/06/17 MDRO Source:: Right Foot Past Surgical History: Appendectomy, Section, Cholecystectomy, Heart Catheterization With Stent, Hysterectomy, Orthopedic Surgery Additional Past Surgical History / Comment(s): PCI with multiple stents, R great toe and 2nd toe amps, debridements R foot ulcer, L shoulder surgery to remove bone, bronchoscopy, EGD, colonoscopy, R arm port since removed, bilateral cataract removals/lens implants. Past Anesthesia/Blood Transfusion Reactions: No Reported Reaction Additional Past Anesthesia/Blood Transfusion Reaction / Comment(s): HX OF BLOOD TRANSFUSION- NO REACTION Date of Last Stent Placement:: July 2012 Past Psychological History: Anxiety, Bipolar, Depression Smoking Status: Never smoker Past Alcohol Use History: None Reported Past Drug Use History: Marijuana - Past Family History Father Family Medical History: Unable to Obtain, Coronary Artery Disease (CAD), Diabetes Mellitus Mother Family Medical History: COPD Medications and Allergies Home Medications Medication Instructions Recorded Confirmed Type Famotidine [Pepcid] 20 mg PO DAILY 07/19/15 04/05/20 History HYDROcodone/APAP 10-325MG [[place] 1 tab PO TID PRN 10/03/16 04/05/20 History 10-325] Atorvastatin [Lipitor] 20 mg PO DAILY 12/28/18 04/05/20 History Aspirin [Adult Low Dose Aspirin EC] 81 mg PO DAILY 06/09/19 04/05/20 History Ferrous Sulfate [Iron (65 MG 325 mg PO BID 06/09/19 04/05/20 History Elemental)] Divalproex [Depakote] 250 mg PO TID #90 tablet. 08/17/19 04/05/20 Rx Albuterol Sulfate [Ventolin HFA] 2 puff INHALATION RT-Q4H PRN 12/26/19 04/05/20 History Losartan [Cozaar] 50 mg PO DAILY tab 01/18/20 04/05/20 Rx Ascorbic Acid [Vitamin C] 500 mg PO DAILY 01/29/20 04/05/20 History Vitamin B Complex 1 tab PO DAILY 01/29/20 04/05/20 History Clopidogrel [Plavix] 75 mg PO DAILY tab 02/02/20 04/05/20 Rx QUEtiapine [SEROquel] 50 mg PO HS 30 Days #30 tab 03/13/20 04/05/20 Rx ALPRAZolam [Xanax] 0.5 mg PO QID PRN tab 03/26/20 04/05/20 Rx DULoxetine HCL [Cymbalta] 30 mg PO DAILY capsule. 03/26/20 04/05/20 Rx Metoclopramide [Reglan] 5 mg PO AC-TID tab 03/26/20 04/05/20 Rx QUEtiapine [SEROquel] 25 mg PO DAILY tab 03/26/20 04/05/20 Rx Calcium Carb-Vit D 500Mg-200Un 1 tab PO BID-W/MEALS 03/31/20 04/05/20 History [Oscal 500+D] INSULIN LISPRO (humaLOG) [humaLOG] 6 units SQ AC-TID 03/31/20 04/05/20 History Ondansetron Odt [Zofran Odt] 4 mg PO Q8HR PRN 3 Days #9 tab 03/31/20 04/05/20 Rx Insulin Detemir [Levemir Flextouch] 10 units SQ HS 04/05/20 04/05/20 History Lacosamide [Vimpat] 100 mg PO BID 04/05/20 04/05/20 History Metoprolol Tartrate [Lopressor] 12.5 mg PO BID 04/05/20 04/05/20 History Allergies Allergy/AdvReac Type Severity Reaction Status Date / Time Barbiturates Allergy Rash/Hives Verified 03/31/20 10:22 cephalexin monohydrate Allergy Rash/Hives Verified 03/31/20 10:22 [From Keflex] morphine Allergy Rash/Hives Verified 03/31/20 10:22 Penicillins Allergy Rash/Hives Verified 03/31/20 10:22 phenobarbital Allergy Swelling Verified 03/31/20 10:22 venom-honey bee Allergy Swelling Verified 03/31/20 10:22 [bee venom (honey bee)] amlodipine besylate AdvReac Vomiting Verified 03/31/20 10:22 [From Norvasc] Physical Exam Vitals: Vital Signs Temp Pulse Pulse Resp BP BP Pulse Ox 04/06/20 01:56 98.7 F 89 18 161/77 95 04/05/20 20:14 98.2 F 83 18 196/91 95 04/05/20 17:30 81 12 104/93 96 04/05/20 16:30 98 14 113/95 88 L 04/05/20 15:30 92 21 164/83 97 04/05/20 15:00 85 13 123/72 97 04/05/20 14:30 78 14 130/75 97 04/05/20 14:17 84 18 130/75 98 04/05/20 13:33 83 18 132/75 98 04/05/20 12:49 78 18 141/72 96 04/05/20 12:16 85 17 157/75 96 04/05/20 11:45 81 16 130/66 96 04/05/20 10:40 97.9 F 85 18 174/74 93 L Intake and Output 04/05/20 04/05/20 04/06/20 14:59 22:59 06:59 Other: Voiding Method Diaper Diaper Incontinent Incontinent # Voids 1 4 Weight 58.967 kg In general patient is alert, responsive, in no distress HEENT head normocephalic and atraumatic Neck is supple no JVD no goiter no lymphadenopathy Chest exam reveals a few scattered crackles no wheezing Cardiac exam reveals regular heart sounds no gallops no murmurs Abdomen is soft nontender no organomegaly was normal bowel sounds Extremity exam reveals no edema no cyanosis or clubbing Neurological examination patient is alert responsive answering questions appropriately she is moving all 4 extremity spontaneously there is residual spasticity and weakness on the left upper extremity in the left lower extremity Results CBC & Chem 7: 04/06/20 06:20 04/05/20 10:57 Labs: Abnormal Lab Results - Last 24 Hours (Table) 04/05/20 04/05/20 04/05/20 Range/Units 10:46 10:57 10:57 RBC 3.17 L (3.80-5.40) m/uL Hgb 9.9 L (11.4-16.0) gm/dL Hct 31.0 L (34.0-46.0) % RDW 16.6 H (11.5-15.5) % APTT 20.2 L (22.0-30.0) sec Sodium (137-145) mmol/L Carbon Dioxide (22-30) mmol/L BUN (7-17) mg/dL Creatinine (0.52-1.04) mg/dL Glucose (74-99) mg/dL POC Glucose (mg/dL) 130 H (75-99) mg/dL Plasma Lactic Acid Conrado (0.7-2.0) mmol/L Urine Protein (Negative) Ur Leukocyte Esterase (Negative) Urine Bacteria (None) /hpf Urine Mucus (None) /hpf 1104/05/20 04/05/20 Range/Units 10:57 10:57 10:57 RBC (3.80-5.40) m/uL Hgb (11.4-16.0) gm/dL Hct (34.0-46.0) % RDW (11.5-15.5) % APTT (22.0-30.0) sec Sodium 136 L (137-145) mmol/L Carbon Dioxide 31 H (22-30) mmol/L BUN 21 H (7-17) mg/dL Creatinine 1.12 H (0.52-1.04) mg/dL Glucose 130 H (74-99) mg/dL POC Glucose (mg/dL) (75-99) mg/dL Plasma Lactic Acid Conrado 2.6 H* (0.7-2.0) mmol/L Urine Protein Trace H (Negative) Ur Leukocyte Esterase Trace H (Negative) Urine Bacteria Moderate H (None) /hpf Urine Mucus Rare H (None) /hpf 04/05/20 04/05/20 04/05/20 Range/Units 20:25 20:58 21:41 RBC (3.80-5.40) m/uL Hgb (11.4-16.0) gm/dL Hct (34.0-46.0) % RDW (11.5-15.5) % APTT (22.0-30.0) sec Sodium (137-145) mmol/L Carbon Dioxide (22-30) mmol/L BUN (7-17) mg/dL Creatinine (0.52-1.04) mg/dL Glucose (74-99) mg/dL POC Glucose (mg/dL) 100 H 136 H 148 H (75-99) mg/dL Plasma Lactic Acid Conrado (0.7-2.0) mmol/L Urine Protein (Negative) Ur Leukocyte Esterase (Negative) Urine Bacteria (None) /hpf Urine Mucus (None) /hpf 04/06/20 Range/Units 02:19 RBC (3.80-5.40) m/uL Hgb (11.4-16.0) gm/dL Hct (34.0-46.0) % RDW (11.5-15.5) % APTT (22.0-30.0) sec Sodium (137-145) mmol/L Carbon Dioxide (22-30) mmol/L BUN (7-17) mg/dL Creatinine (0.52-1.04) mg/dL Glucose (74-99) mg/dL POC Glucose (mg/dL) 301 H (75-99) mg/dL Plasma Lactic Acid Conrado (0.7-2.0) mmol/L Urine Protein (Negative) Ur Leukocyte Esterase (Negative) Urine Bacteria (None) /hpf Urine Mucus (None) /hpf Thrombosis Risk Factor Assmnt - Choose All That Apply Each Factor Represents 1 point: Age 41-60 years Other Risk Factors: No Other congenital or acquired thrombophilia - If yes, enter type in comment: No Thrombosis Risk Factor Assessment Total Risk Factor Score: 1 Thrombosis Risk Factor Assessment Level: Low Risk Assessment and Plan Plan: 1. Mental status changes likely related to recurrent seizure activity due to missing antiseizure medications due to vomiting 2. Previous history of stroke in 2014, no evidence of stroke at this time. 3. Underlying history of insulin-dependent diabetes mellitus, type I maintained on insulin, with previous multiple admissions with DKA 4. Underlying history of gastroparesis, maintained on Reglan 5. History of psychosis maintained on Seroquel 6. Underlying history of hypertension 7. Underlying history of hyperlipidemia 8. Previous history of coronary artery disease with myocardial infarction in the past 9. Anemia was significant hemoglobin drop since yesterday At this time patient is admitted to medical floor, she was seen by neurology and was given IV antiseizure medications Mental status improved significantly today Will consult gastroenterology in regard to anemia with significant drop in hemoglobin Will give IV iron and monitor closely
[2020-04-06] MEDS: ASPIRIN 81 MG PO SCH (09:55)
[2020-04-06] MEDS: LACOSAMIDE IV 150 MG in SODIUM CHLORIDE 0.9% 50 ML IVPB SCH ×2 (10:45→21:25)
[2020-04-06 11:33] LABS: African American GFR (CKD) 81.1 (60.0-200.0); Albumin 2.7 g/dL (3.80-4.90); Albumin/Globulin Ratio 1.08 (1.60-3.17); Anion Gap 5.5 mmol/L (4.00-12.00); BUN/Creat Ratio 16.67 Ratio (12.00-20.00); Carbon Dioxide 29.5 mmol/L (21.6-31.8); Globulin 2.5 g/dL (1.6-3.3); Potassium 3.9 mmol/L (3.5-5.5); Total Bilirubin 0.2 mg/dL (0.2-1.2); Total Protein 5.2 g/dL (6.2-8.2)
[2020-04-06 11:52] LABS: Glucose,Whole Blood 56 mg/dL (75-99)
[2020-04-06 12:09] LABS: Glucose,Whole Blood 56 mg/dL (75-99)
[2020-04-06 12:28] LABS: Glucose,Whole Blood 62 mg/dL (75-99)
[2020-04-06 12:45] LABS: Glucose,Whole Blood 74 mg/dL (75-99)
--- NOTE | 2020-04-06 16:27 | P.PN ---
Subjective Progress Note Date: 04/06/20 The patient is seen in neurologic follow-up on April 06, 2020 via teleneurology. The patient has difficulty providing history. She does endorse having several days of nausea and vomiting prior to admission. The patient reports having difficulty with her memory. This is her baseline. Objective - Vital Signs Vital signs: Vital Signs Temp 98.3 F 04/06/20 15:00 Pulse 79 04/06/20 15:00 Resp 16 04/06/20 15:00 BP 136/70 04/06/20 15:00 Pulse Ox 95 04/06/20 15:00 Intake & Output 04/05/20 04/06/20 04/06/20 18:59 06:59 18:59 Weight 58.967 kg Other: Voiding Method Diaper Diaper Incontinent Incontinent # Voids 4 1 - Exam Gen.: The patient is reclining in the bed. She is well-nourished, well- developed and in no acute distress. Mental status: The patient is awake and alert. She is oriented to her date of and location. She is unable to toe me her correct age. She is oriented to the current year. She is unable to name the president. She reports the month to be "July". Motor: left hemiparesis - Labs CBC & Chem 7: 04/06/20 06:20 04/06/20 06:20 Labs: Abnormal Lab Results - Last 24 Hours (Table) 04/05/20 04/05/20 04/05/20 Range/Units 20:25 20:58 21:41 RBC (3.80-5.40) m/uL Hgb (11.4-16.0) gm/dL Hct (34.0-46.0) % MCV (80.0-100.0) fL MCHC (31.0-37.0) g/dL RDW (11.5-15.5) % Plt Count (150-450) k/uL Glucose (70-110) mg/dL POC Glucose (mg/dL) 100 H 136 H 148 H (75-99) mg/dL Calcium (8.7-10.3) mg/dL Total Protein (6.2-8.2) g/dL Albumin (3.80-4.90) g/dL Albumin/Globulin Ratio (1.60-3.17) g/dL 04/06/20 04/06/20 04/06/20 Range/Units 02:19 06:20 06:20 RBC 2.53 L (3.80-5.40) m/uL Hgb 7.6 L D (11.4-16.0) gm/dL Hct 25.4 L (34.0-46.0) % MCV 100.4 H (80.0-100.0) fL MCHC 29.9 L (31.0-37.0) g/dL RDW 17.0 H (11.5-15.5) % Plt Count 147 L (150-450) k/uL Glucose 198 H (70-110) mg/dL POC Glucose (mg/dL) 301 H (75-99) mg/dL Calcium 8.0 L (8.7-10.3) mg/dL Total Protein 5.2 L (6.2-8.2) g/dL Albumin 2.70 L (3.80-4.90) g/dL Albumin/Globulin Ratio 1.08 L (1.60-3.17) g/dL 04/06/20 04/06/20 04/06/20 Range/Units 07:00 11:51 12:08 RBC (3.80-5.40) m/uL Hgb (11.4-16.0) gm/dL Hct (34.0-46.0) % MCV (80.0-100.0) fL MCHC (31.0-37.0) g/dL RDW (11.5-15.5) % Plt Count (150-450) k/uL Glucose (70-110) mg/dL POC Glucose (mg/dL) 164 H 56 L 56 L (75-99) mg/dL Calcium (8.7-10.3) mg/dL Total Protein (6.2-8.2) g/dL Albumin (3.80-4.90) g/dL Albumin/Globulin Ratio (1.60-3.17) g/dL 04/06/20 04/06/20 Range/Units 12:27 12:43 RBC (3.80-5.40) m/uL Hgb (11.4-16.0) gm/dL Hct (34.0-46.0) % MCV (80.0-100.0) fL MCHC (31.0-37.0) g/dL RDW (11.5-15.5) % Plt Count (150-450) k/uL Glucose (70-110) mg/dL POC Glucose (mg/dL) 62 L 74 L (75-99) mg/dL Calcium (8.7-10.3) mg/dL Total Protein (6.2-8.2) g/dL Albumin (3.80-4.90) g/dL Albumin/Globulin Ratio (1.60-3.17) g/dL Microbiology - Last 24 Hours (Table) 04/05/20 11:14 Blood Culture - Preliminary Blood No Growth after 24 hours Assessment and Plan Assessment: 1. Seizure, provoked by lack of antiepileptic medication secondary to vomiting 2. History of strokes 3. Cognitive deficits-secondary to stroke 4. History of diabetes mellitus and DKA 5. History of toxic metabolic encephalopathy secondary to DKA Plan: 1. Agree with restarting of patient's home antiepileptic medications 2. Will check a valproic acid level 3. Continue supportive care, if valproic acid level is therapeutic, the patient may be stable for discharge Time with Patient: Less than 30 (spend 25 minutes with patient via teleneurology)
[2020-04-06 17:03] LABS: Glucose,Whole Blood 240 mg/dL (75-99)
[2020-04-06 20:12] LABS: Glucose,Whole Blood 128 mg/dL (75-99)
[2020-04-06] MEDS: INSULIN DETEMIR (LEVEMIR) 100 UNIT/ML SYR SQ SCH (20:26)
[2020-04-06] MEDS: PANTOPRAZOLE 40 MG/10 ML VIAL IVP SCH (20:27)
[2020-04-06] MEDS: QUEtiapine 50 MG TAB PO SCH (20:27)
[2020-04-06] MEDS ORDERED: LORazepam 2 MG/ML INJ IV PRN (22:55)
[2020-04-07 04:27] LABS: Glucose,Whole Blood 119 mg/dL (75-99)
[2020-04-07 07:13] LABS: Glucose,Whole Blood 103 mg/dL (75-99)
[2020-04-07 07:24] LABS: Anisocytosis Slight; Basophils % (A) 0 %; Eosinophils % (A) 1 %; HCT 27.2 % (34.0-46.0); HGB 8.2 gm/dL (11.4-16.0); Hypochromasia Moderate; Lymphocytes # (A) 2.3 k/uL (1.0-4.8); Lymphocytes % (A) 36 %; MCHC 30.2 g/dL (31.0-37.0); MCV 102.4 fL (80.0-100.0); Macrocytosis Moderate; Mean Platelet Volume 7.6; Monocytes # (A) 0.3 k/uL (0-1.0); Monocytes % (A) 5 %; Neutrophils # (A) 3.6 k/uL (1.3-7.7); Neutrophils % (A) 56 %; Platelet Count 151 k/uL (150-450); RBC 2.65 m/uL (3.80-5.40); RDW 16.6 % (11.5-15.5); WBC 6.3 k/uL (3.8-10.6)
[2020-04-07] MEDS: INSULIN ASPART (NovoLOG) 100 UNIT/ML VIAL SQ SCH ×3 (08:33→18:09)
--- NOTE | 2020-04-07 08:45 | P.CONS ---
History of Present Illness - Reason for Consult Consult date: 04/06/20 anemia Requesting physician: Sherlyn Chen - Chief Complaint Seizure - History of Present Illness 59-year-old female with multiple medical comorbidities including insulin-de pendent diabetes mellitus, prior CVA, hypertension, hyperlipidemia, coronary artery disease, peripheral vascular disease and COPD who presented to the hospital due altered mental status felt to be secondary to seizure. This was felt to be provoked as the patient was having some nausea and vomiting and unable to tolerate her seizure medication.patient has had multiple admissions to the hospital as well as recent admission for suspected pneumonia and hypoglycemia. She has been noted to be anemic. Currently she is denying any signs or symptoms of GI bleeding. She'll use her last endoscopic evaluation was a 10 years ago with EGD and colonoscopy significant for polypectomy. On presentation hemoglobin 7.6 with WBC 6.6, platelet count 147,000, total bilirubin 0.2, alkaline phosphatase 75, AST 17 and ALT 13.stool testing was negative for occult blood. Review of Systems REVIEW OF SYSTEMS: CONSTITUTIONAL: Denies any fevers, chills, weight change or fatigue. CARDIOVASCULAR: Denies any chest pain, palpitations high or low blood pressures RESPIRATORY: Denies any shortness of breath, hemoptysis or cough. GENITOURINARY: No dysuria or hematuria. MUSCULOSKELETAL: No weakness reported. SKIN: Denies any new rashes or lesions, jaundice or pallor. PSYCHIATRIC: Denies any depression or anxiety at this time. NEUROLOGY: Denies headache, denies any new focal deficits, did present to the hospital due to altered mental status due to seizure. EARS/NOSE/THROAT: No recent hearing change, congestion, nasal discharge or sore throat. EYES: No pain in eyes, discharge or change in vision. GASTROINTESTINAL: As per HPI. Past Medical History Past Medical History: Asthma, Coronary Artery Disease (CAD), Chest Pain / Angina, Heart Failure, COPD, CVA/TIA, Diabetes Mellitus, Deep Vein Thrombosis (D [place]), Eye Disorder, GERD/Reflux, Hyperlipidemia, Hypertension, Myocardial Infarction ([place]), Neurologic Disorder, Osteoarthritis (OA), Pneumonia, Renal Disease Additional Past Medical History / Comment(s): IDDM (brittle), DKAs, neuropathy bilateral hands/feet, retinopathy bilateral eyes, cellulitis R foot, R great toe and 2nd toe infections/amputations, current wound R foot-being seen in [facility], renal failure, anemia, CVAs with L sided paralysis, headaches started after CVAs, brain lesions, DVT R axillae, low back pain, varicosities, seizure many years ago (2001), hypothyroid, constipation, bilateral tinnitis occasionally, sinus problems. Last Myocardial Infarction Date:: 2011 History of Any Multi-Drug Resistant Organisms: MRSA Year Discovered:: 09/06/17 MDRO Source:: Right Foot Past Surgical History: Appendectomy, Section, Cholecystectomy, Heart Catheterization With Stent, Hysterectomy, Orthopedic Surgery Additional Past Surgical History / Comment(s): PCI with multiple stents, R great toe and 2nd toe amps, debridements R foot ulcer, L shoulder surgery to remove bone, bronchoscopy, EGD, colonoscopy, R arm port since removed, bilateral cataract removals/lens implants. Past Anesthesia/Blood Transfusion Reactions: No Reported Reaction Additional Past Anesthesia/Blood Transfusion Reaction / Comm: HX OF BLOOD TRANSFUSION- NO REACTION Date of Last Stent Placement:: July 2012 Past Psychological History: Anxiety, Bipolar, Depression Smoking Status: Never smoker Past Alcohol Use History: None Reported Past Drug Use History: Marijuana - Past Family History Father Family Medical History: Unable to Obtain, Coronary Artery Disease (CAD), Diabetes Mellitus Mother Family Medical History: COPD Medications and Allergies Home Medications Medication Instructions Recorded Confirmed Type Famotidine [Pepcid] 20 mg PO DAILY 07/19/15 04/05/20 History HYDROcodone/APAP 10-325MG [[place] 1 tab PO TID PRN 10/03/16 04/05/20 History 10-325] Atorvastatin [Lipitor] 20 mg PO DAILY 12/28/18 04/05/20 History Aspirin [Adult Low Dose Aspirin EC] 81 mg PO DAILY 06/09/19 04/05/20 History Ferrous Sulfate [Iron (65 MG 325 mg PO BID 06/09/19 04/05/20 History Elemental)] Divalproex [Depakote] 250 mg PO TID #90 tablet. 08/17/19 04/05/20 Rx Albuterol Sulfate [Ventolin HFA] 2 puff INHALATION RT-Q4H PRN 12/26/19 04/05/20 History Losartan [Cozaar] 50 mg PO DAILY tab 01/18/20 04/05/20 Rx Ascorbic Acid [Vitamin C] 500 mg PO DAILY 01/29/20 04/05/20 History Vitamin B Complex 1 tab PO DAILY 01/29/20 04/05/20 History Clopidogrel [Plavix] 75 mg PO DAILY tab 02/02/20 04/05/20 Rx QUEtiapine [SEROquel] 50 mg PO HS 30 Days #30 tab 03/13/20 04/05/20 Rx ALPRAZolam [Xanax] 0.5 mg PO QID PRN tab 03/26/20 04/05/20 Rx DULoxetine HCL [Cymbalta] 30 mg PO DAILY capsule.dr 03/26/20 04/05/20 Rx Metoclopramide [Reglan] 5 mg PO AC-TID tab 03/26/20 04/05/20 Rx QUEtiapine [SEROquel] 25 mg PO DAILY tab 03/26/20 04/05/20 Rx Calcium Carb-Vit D 500Mg-200Un 1 tab PO BID-W/MEALS 03/31/20 04/05/20 History [Oscal 500+D] INSULIN LISPRO (humaLOG) [humaLOG] 6 units SQ AC-TID 03/31/20 04/05/20 History Ondansetron Odt [Zofran Odt] 4 mg PO Q8HR PRN 3 Days #9 tab 03/31/20 04/05/20 Rx Insulin Detemir [Levemir Flextouch] 10 units SQ HS 04/05/20 04/05/20 History Lacosamide [Vimpat] 100 mg PO BID 04/05/20 04/05/20 History Metoprolol Tartrate [Lopressor] 12.5 mg PO BID 04/05/20 04/05/20 History Allergies Allergy/AdvReac Type Severity Reaction Status Date / Time Barbiturates Allergy Rash/Hives Verified 03/31/20 10:22 cephalexin monohydrate Allergy Rash/Hives Verified 03/31/20 10:22 [From Keflex] morphine Allergy Rash/Hives Verified 03/31/20 10:22 Penicillins Allergy Rash/Hives Verified 03/31/20 10:22 phenobarbital Allergy Swelling Verified 03/31/20 10:22 venom-honey bee Allergy Swelling Verified 03/31/20 10:22 [bee venom (honey bee)] amlodipine besylate AdvReac Vomiting Verified 03/31/20 10:22 [From Norvasc] Physical Exam Vitals: Vital Signs Temp Pulse Pulse Resp BP BP Pulse Ox 04/06/20 09:00 97.5 F L 99 18 137/57 93 L 04/06/20 01:56 98.7 F 89 18 161/77 95 04/05/20 20:14 98.2 F 83 18 196/91 95 04/05/20 17:30 81 12 104/93 96 04/05/20 16:30 98 14 113/95 88 L 04/05/20 15:30 92 21 164/83 97 04/05/20 15:00 85 13 123/72 97 04/05/20 14:30 78 14 130/75 97 04/05/20 14:17 84 18 130/75 98 04/05/20 13:33 83 18 132/75 98 04/05/20 12:49 78 18 141/72 96 Intake and Output 04/05/20 04/06/20 04/06/20 22:59 06:59 14:59 Other: Voiding Method Diaper Diaper Diaper Incontinent Incontinent Incontinent # Voids 1 4 1 On physical examination, patient appears comfortable in no apparent distress. HEAD: Normocephalic, atraumatic. EYES: No scleral icterus. No conjunctival injection. MOUTH: No lesions, tongue midline. NECK: Trachea midline, no gross abnormalities. CHEST: Decreased air entry in all lung campuzano. HEART: Regular rate and rhythm. ABDOMEN: Soft, thin and nontender. Bowel sounds are positive. No organomegaly. No guarding or rigidity. EXTREMITIES: No pedal edema. SKIN: No rashes, no jaundice. NEUROLOGIC: Alert and oriented x3. No focal deficits. Results CBC & Chem 7: 04/07/20 06:18 04/06/20 06:20 Labs: Abnormal Lab Results - Last 24 Hours (Table) 04/05/20 04/05/20 04/05/20 Range/Units 10:57 10:57 20:25 RBC (3.80-5.40) m/uL Hgb (11.4-16.0) gm/dL Hct (34.0-46.0) % MCV (80.0-100.0) fL MCHC (31.0-37.0) g/dL RDW (11.5-15.5) % Plt Count (150-450) k/uL APTT 20.2 L (22.0-30.0) sec Glucose (70-110) mg/dL POC Glucose (mg/dL) 100 H (75-99) mg/dL Plasma Lactic Acid Conrado 2.6 H* (0.7-2.0) mmol/L Calcium (8.7-10.3) mg/dL Total Protein (6.2-8.2) g/dL Albumin (3.80-4.90) g/dL Albumin/Globulin Ratio (1.60-3.17) g/dL 04/05/20 04/05/20 04/06/20 Range/Units 20:58 21:41 02:19 RBC (3.80-5.40) m/uL Hgb (11.4-16.0) gm/dL Hct (34.0-46.0) % MCV (80.0-100.0) fL MCHC (31.0-37.0) g/dL RDW (11.5-15.5) % Plt Count (150-450) k/uL APTT (22.0-30.0) sec Glucose (70-110) mg/dL POC Glucose (mg/dL) 136 H 148 H 301 H (75-99) mg/dL Plasma Lactic Acid Conrado (0.7-2.0) mmol/L Calcium (8.7-10.3) mg/dL Total Protein (6.2-8.2) g/dL Albumin (3.80-4.90) g/dL Albumin/Globulin Ratio (1.60-3.17) g/dL 04/06/20 04/06/20 04/06/20 Range/Units 06:20 06:20 07:00 RBC 2.53 L (3.80-5.40) m/uL Hgb 7.6 L D (11.4-16.0) gm/dL Hct 25.4 L (34.0-46.0) % MCV 100.4 H (80.0-100.0) fL MCHC 29.9 L (31.0-37.0) g/dL RDW 17.0 H (11.5-15.5) % Plt Count 147 L (150-450) k/uL APTT (22.0-30.0) sec Glucose 198 H (70-110) mg/dL POC Glucose (mg/dL) 164 H (75-99) mg/dL Plasma Lactic Acid Conrado (0.7-2.0) mmol/L Calcium 8.0 L (8.7-10.3) mg/dL Total Protein 5.2 L (6.2-8.2) g/dL Albumin 2.70 L (3.80-4.90) g/dL Albumin/Globulin Ratio 1.08 L (1.60-3.17) g/dL 04/06/20 04/06/20 04/06/20 Range/Units 11:51 12:08 12:27 RBC (3.80-5.40) m/uL Hgb (11.4-16.0) gm/dL Hct (34.0-46.0) % MCV (80.0-100.0) fL MCHC (31.0-37.0) g/dL RDW (11.5-15.5) % Plt Count (150-450) k/uL APTT (22.0-30.0) sec Glucose (70-110) mg/dL POC Glucose (mg/dL) 56 L 56 L 62 L (75-99) mg/dL Plasma Lactic Acid Conrado (0.7-2.0) mmol/L Calcium (8.7-10.3) mg/dL Total Protein (6.2-8.2) g/dL Albumin (3.80-4.90) g/dL Albumin/Globulin Ratio (1.60-3.17) g/dL CT Scan - head: report reviewed Assessment and Plan (1) Iron deficiency anemia Narrative/Plan: 59-year-old female with multiple medical comorbidities who presented to the hospital due to altered mental status secondary to seizure. Patient found to be anemic which was also noted on prior hospitalization. Previous iron studies consistent with iron deficiency anemia and patient is on iron supplementation. She denies any signs or symptoms of GI bleeding. She does report a remote history of endoscopic evaluation approximate 8 to 9 years ago with EGD and colonoscopy. Macrocytic indices. Anemia likely multifactorial given multiple medical comorbidities cannot rule out a component of GI blood loss but no overt signs or symptoms at this time with negative stool testing for occult blood. Current Visit: Yes Status: Acute Code(s): D50.9 - IRON DEFICIENCY ANEMIA, UNSPECIFIED SNOMED Code(s): 45593368 Plan: supportive care Continue Protonix therapy Continue to monitor lumen and hematocrit and transfuse as needed Continue to monitor for any signs or symptoms of GI blood loss currently on consistent carbohydrate diet Continue consider endoscopic evaluation either during hospitalization when medically stable or after discharge in the outpatient setting pending labs and clinical course Thank you for allowing us to participate in the care of the patient
[2020-04-07] MEDS: SODIUM CHLORIDE 0.9% 1,000 ML IV SCH ×2 (09:13→17:56)
[2020-04-07] MEDS: PANTOPRAZOLE 40 MG/10 ML VIAL IVP SCH ×2 (09:27→21:08)
[2020-04-07] MEDS: ASPIRIN 81 MG PO SCH (09:28)
[2020-04-07] MEDS: CALCIUM CARB-VIT D 500MG-200UN 1 EACH TAB PO SCH ×2 (09:28→17:55)
[2020-04-07] MEDS: ATORVASTATIN 20 MG TAB PO SCH (09:29)
[2020-04-07] MEDS: LOSARTAN 50 MG TAB PO SCH (09:29)
[2020-04-07] MEDS: QUEtiapine 25 MG TAB PO SCH (09:29)
[2020-04-07] MEDS: ASCORBIC ACID 500 MG TAB PO SCH (09:29)
[2020-04-07] MEDS: DULoxetine HCL 30 MG CAPSULE.DR PO SCH (09:30)
[2020-04-07] MEDS: METOCLOPRAMIDE 5 MG TAB PO SCH ×3 (09:31→17:55)
[2020-04-07] MEDS: DIVALPROEX 250 MG TABLET.DR PO SCH ×3 (09:33→21:07)
[2020-04-07] MEDS: FERROUS SULFATE 325 MG TAB PO SCH ×2 (09:45→21:07)
[2020-04-07] MEDS: METOPROLOL TARTRATE 12.5 MG TAB PO SCH ×2 (09:57→21:07)
[2020-04-07] MEDS: LACOSAMIDE IV 150 MG in SODIUM CHLORIDE 0.9% 50 ML IVPB SCH (09:57)
[2020-04-07] MEDS ORDERED: IOPAMIDOL CONTRAST (ORAL USE) VIAL PO PRN (10:30)
--- NOTE | 2020-04-07 10:35 | P.PN ---
Subjective Progress Note Date: 04/07/20 Melva Jackson, is a 59-year-old female who presented to [facility] emergency room with a chief complaint of mental status changes with worsening somnolence and episodes of vomiting, she was evaluated in the emergency room, vital examination on presentation reveals a temperature of 97.9 pulse 85 respiration 18 blood pressure 174/74 pulse ox 93% on room air, white blood count was 10.1 hemoglobin 9.9 platelet count 196 sodium 136 BUN 21 creatinine 1.12 glucose 113 lactic acid 1.2 urine analysis revealed trace leukocyte esterase with moderate bacteria, chest x-ray revealed no acute pul monary process, computed tomography scan of the brain revealed no evidence of acute intracranial hemorrhage or midline shift there was a large area of old encephalomalacic of the right anterior cerebral hemisphere related to previous stroke. Patient was admitted to telemetry floor neurology consultation was requested due to concern of a recurrent stroke. Patient has a known history of insulin-dependent diabetes mellitus type 1 history of hypertension, history of hyperlipidemia, history of seizure disorder, history of asthma, and history of psychosis. On 04/07/2020 patient is alert and oriented resting in bed patient does appear restless. CT of abdomen and pelvis has been ordered due to nausea and vomiting. Hemoglobin 8.2. GI and neurology services are following. Patient denies any chest pain or shortness of breath. Does have appetite requesting food. Objective - Vital Signs Vital signs: Vital Signs Temp 97.3 F L 04/07/20 07:00 Pulse 56 L 04/07/20 07:00 Resp 14 04/07/20 08:37 BP 88/53 04/07/20 07:00 Pulse Ox 96 04/07/20 07:00 Intake & Output 04/06/20 04/07/20 04/07/20 18:59 06:59 18:59 Other: Voiding Method Diaper Diaper Diaper Incontinent Incontinent Incontinent # Voids 1 2 # Bowel Movements 0 - Exam In general patient is alert, responsive, in no distress HEENT head normocephalic and atraumatic Neck is supple no JVD no goiter no lymphadenopathy Chest exam reveals a few scattered crackles no wheezing Cardiac exam reveals regular heart sounds no gallops no murmurs Abdomen is soft nontender no organomegaly was normal bowel sounds Extremity exam reveals no edema no cyanosis or clubbing Neurological examination patient is alert responsive answering questions appropriately she is moving all 4 extremity spontaneously there is residual spasticity and weakness on the left upper extremity in the left lower extremity - Labs CBC & Chem 7: 04/07/20 06:18 04/06/20 06:20 Labs: Abnormal Lab Results - Last 24 Hours (Table) 04/06/20 04/06/20 04/06/20 Range/Units 06:20 11:51 12:08 RBC (3.80-5.40) m/uL Hgb (11.4-16.0) gm/dL Hct (34.0-46.0) % MCV (80.0-100.0) fL MCHC (31.0-37.0) g/dL RDW (11.5-15.5) % Glucose 198 H (70-110) mg/dL POC Glucose (mg/dL) 56 L 56 L (75-99) mg/dL Calcium 8.0 L (8.7-10.3) mg/dL Total Protein 5.2 L (6.2-8.2) g/dL Albumin 2.70 L (3.80-4.90) g/dL Albumin/Globulin Ratio 1.08 L (1.60-3.17) g/dL 04/06/20 04/06/20 04/06/20 Range/Units 12:27 12:43 17:02 RBC (3.80-5.40) m/uL Hgb (11.4-16.0) gm/dL Hct (34.0-46.0) % MCV (80.0-100.0) fL MCHC (31.0-37.0) g/dL RDW (11.5-15.5) % Glucose (70-110) mg/dL POC Glucose (mg/dL) 62 L 74 L 240 H (75-99) mg/dL Calcium (8.7-10.3) mg/dL Total Protein (6.2-8.2) g/dL Albumin (3.80-4.90) g/dL Albumin/Globulin Ratio (1.60-3.17) g/dL 04/06/20 04/07/20 04/07/20 Range/Units 20:09 04:26 06:18 RBC 2.65 L (3.80-5.40) m/uL Hgb 8.2 L (11.4-16.0) gm/dL Hct 27.2 L (34.0-46.0) % MCV 102.4 H (80.0-100.0) fL MCHC 30.2 L (31.0-37.0) g/dL RDW 16.6 H (11.5-15.5) % Glucose (70-110) mg/dL POC Glucose (mg/dL) 128 H 119 H (75-99) mg/dL Calcium (8.7-10.3) mg/dL Total Protein (6.2-8.2) g/dL Albumin (3.80-4.90) g/dL Albumin/Globulin Ratio (1.60-3.17) g/dL 04/07/20 Range/Units 07:11 RBC (3.80-5.40) m/uL Hgb (11.4-16.0) gm/dL Hct (34.0-46.0) % MCV (80.0-100.0) fL MCHC (31.0-37.0) g/dL RDW (11.5-15.5) % Glucose (70-110) mg/dL POC Glucose (mg/dL) 103 H (75-99) mg/dL Calcium (8.7-10.3) mg/dL Total Protein (6.2-8.2) g/dL Albumin (3.80-4.90) g/dL Albumin/Globulin Ratio (1.60-3.17) g/dL Microbiology - Last 24 Hours (Table) 04/05/20 11:14 Blood Culture - Preliminary Blood No Growth after 24 hours Assessment and Plan Plan: 1. Mental status changes likely related to recurrent seizure activity due to missing antiseizure medications due to vomiting 2. Previous history of stroke in 2015, no evidence of stroke at this time. 3. Underlying history of insulin-dependent diabetes mellitus, type I maintained on insulin, with previous multiple admissions with DKA 4. Underlying history of gastroparesis, maintained on Reglan 5. History of psychosis maintained on Seroquel 6. Underlying history of hypertension 7. Underlying history of hyperlipidemia 8. Previous history of coronary artery disease with myocardial infarction in the past 9. Anemia was significant hemoglobin drop since yesterday. Hemoglobin improving today 8.2 At this time patient is admitted to medical floor, she was seen by neurology and was given IV antiseizure medications Mental status improved significantly today GI services following possible plans for scope CT of abdomen and pelvis ordered Will give IV iron and monitor closely
[2020-04-07 11:35] LABS: Glucose,Whole Blood 103 mg/dL (75-99)
--- NOTE | 2020-04-07 14:18 | CT ---
EXAMINATION TYPE: CT abdomen pelvis w con DATE OF EXAM: 04/07/2020 COMPARISON: 12/28/2019 HISTORY: nausea and vomiting CT DLP: 441 mGycm Automated exposure control for dose reduction was used. CONTRAST: Performed with IV Contrast, patient injected with 50 mL of Isovue 300. There is some mild pleural thickening and infiltrate and atelectasis left posterior lung base. There is no pleural effusion. Heart size is normal. There is no pericardial effusion. Liver and spleen appe ar normal. Bile ducts are not dilated. Stomach is intact. There is no adrenal mass. The kidneys have normal size. There is no hydronephrosis. Ureters are not d ilated. There is no retroperitoneal adenopathy. Abdominal aorta is atheromatous. Urinary bladder is d ilated and measures 17 cm in length. There is no inguinal hernia. There is no free fluid in the pelvi s. There is hysterectomy. Appendix is not seen. There is no sign of thickened appendix. I see no evidence of a bowel obstructio n. There is no mesenteric edema. There is no sign of ascites or free air. Lumbar vertebra have normal alignment. There is no compression fracture. The bony pelvis is intact. T here is some sclerosis and deformity of the femoral heads related to some chronic avascular necrosis. Sacroiliac joints appear intact. IMPRESSION: There is some pleural thickening and infiltrate and atelectasis left posterior lung base that appears new compared to old exam. Dilated urinary bladder is new compared to old exam. 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 Atherosclerotic vascular disease.
[2020-04-07 16:21] LABS: Glucose,Whole Blood 326 mg/dL (75-99)
[2020-04-07 18:17] LABS: Glucose,Whole Blood 439 mg/dL (75-99)
[2020-04-07] MEDS: HYDROcodone/APAP 10-325MG 1 EACH TAB PO PRN (19:24)
[2020-04-07] MEDS: ALPRAZolam 0.5 MG TAB PO PRN (19:25)
--- NOTE | 2020-04-07 20:24 | P.PN ---
Subjective Progress Note Date: 04/07/20 Principal diagnosis: iron deficiency anemia the patient is seen lying in bed with no signs or symptoms of GI bleeding reported. Tolerating diet. No abdominal pain. Objective - Vital Signs Vital signs: Vital Signs Temp 97.3 F L 04/07/20 07:00 Pulse 56 L 04/07/20 07:00 Resp 14 04/07/20 08:37 BP 88/53 04/07/20 07:00 Pulse Ox 96 04/07/20 07:00 Intake & Output 04/06/20 04/07/20 04/07/20 18:59 06:59 18:59 Intake Total 300 Balance 300 Intake: Oral 300 Other: Voiding Method Diaper Diaper Diaper Incontinent Incontinent Incontinent # Voids 1 2 1 # Bowel Movements 0 - Exam On physical examination, patient appears comfortable in no apparent distress. HEAD: Normocephalic, atraumatic. EYES: No scleral icterus. No conjunctival injection. MOUTH: No lesions, tongue midline. NECK: Trachea midline, no gross abnormalities. ABDOMEN: Soft, nontender. Bowel sounds are positive. No organomegaly. No guarding or rigidity. EXTREMITIES: No pedal edema. SKIN: No rashes, no jaundice. NEUROLOGIC: Alert and oriented to person and place. - Labs CBC & Chem 7: 04/07/20 06:18 04/06/20 06:20 Labs: Abnormal Lab Results - Last 24 Hours (Table) 04/06/20 04/06/20 04/06/20 Range/Units 11:51 12:08 12:27 RBC (3.80-5.40) m/uL Hgb (11.4-16.0) gm/dL Hct (34.0-46.0) % MCV (80.0-100.0) fL MCHC (31.0-37.0) g/dL RDW (11.5-15.5) % POC Glucose (mg/dL) 56 L 56 L 62 L (75-99) mg/dL 04/06/20 04/06/20 04/06/20 Range/Units 12:43 17:02 20:09 RBC (3.80-5.40) m/uL Hgb (11.4-16.0) gm/dL Hct (34.0-46.0) % MCV (80.0-100.0) fL MCHC (31.0-37.0) g/dL RDW (11.5-15.5) % POC Glucose (mg/dL) 74 L 240 H 128 H (75-99) mg/dL 04/07/20 04/07/20 04/07/20 Range/Units 04:26 06:18 07:11 RBC 2.65 L (3.80-5.40) m/uL Hgb 8.2 L (11.4-16.0) gm/dL Hct 27.2 L (34.0-46.0) % MCV 102.4 H (80.0-100.0) fL MCHC 30.2 L (31.0-37.0) g/dL RDW 16.6 H (11.5-15.5) % POC Glucose (mg/dL) 119 H 103 H (75-99) mg/dL 04/07/20 Range/Units 11:34 RBC (3.80-5.40) m/uL Hgb (11.4-16.0) gm/dL Hct (34.0-46.0) % MCV (80.0-100.0) fL MCHC (31.0-37.0) g/dL RDW (11.5-15.5) % POC Glucose (mg/dL) 103 H (75-99) mg/dL Microbiology - Last 24 Hours (Table) 04/05/20 11:14 Blood Culture - Preliminary Blood No Growth after 24 hours Assessment and Plan (1) Iron deficiency anemia Narrative/Plan: 59-year-old female with multiple medical comorbidities who presented to the hospital due to altered mental status secondary to seizure. Patient found to be anemic which was also noted on prior hospitalization. Previous iron studies consistent with iron deficiency anemia and patient is on iron supplementation. She denies any signs or symptoms of GI bleeding. She does report a remote history of endoscopic evaluation approximate 8 to 9 years ago with EGD and colonoscopy. Macrocytic indices. Anemia likely multifactorial given multiple medical comorbidities cannot rule out a component of GI blood loss but no overt signs or symptoms at this time with negative stool testing for occult blood. Current Visit: Yes Status: Acute Code(s): D50.9 - IRON DEFICIENCY ANEMIA, UNSPECIFIED SNOMED Code(s): 04131535 Plan: supportive care Continue Protonix therapy Continue to monitor hemoglobin and hematocrit and transfuse as needed Continue to monitor for any signs or symptoms of GI blood loss currently on consistent carbohydrate diet, we'll change to clear liquid diet Consider endoscopic evaluation either during hospitalization when medically stable or after discharge in the outpatient setting pending labs and clinical course for evaluation of the patient's iron deficiency anemia Thank you for allowing us to participate in the care of the patient
[2020-04-07 20:51] LABS: Glucose,Whole Blood 230 mg/dL (75-99)
[2020-04-07] MEDS: LACOSAMIDE 150 MG TABLET PO SCH (21:07)
[2020-04-07] MEDS: INSULIN DETEMIR (LEVEMIR) 100 UNIT/ML SYR SQ SCH (21:07)
[2020-04-07] MEDS: LORazepam 1 MG TAB PO PRN (21:07)
[2020-04-07] MEDS: QUEtiapine 50 MG TAB PO SCH (21:07)
[2020-04-07] MEDS ORDERED: HALOPERIDOL LACTATE 5 MG/ML 1 ML VIAL IM ONE (22:11)
[2020-04-08 06:31] LABS: Anisocytosis Slight; Basophils % (A) 0 %; Eosinophils % (A) 1 %; HCT 28.6 % (34.0-46.0); Lymphocytes # (A) 1.6 k/uL (1.0-4.8); Lymphocytes % (A) 21 %; MCH 31.2 pg (25.0-35.0); MCHC 31.6 g/dL (31.0-37.0); MCV 98.6 fL (80.0-100.0); Macrocytosis Slight; Mean Platelet Volume 7.7; Monocytes # (A) 0.5 k/uL (0-1.0); Monocytes % (A) 7 %; Neutrophils # (A) 5.3 k/uL (1.3-7.7); Neutrophils % (A) 70 %; Platelet Count 184 k/uL (150-450); RDW 16.3 % (11.5-15.5); WBC 7.5 k/uL (3.8-10.6)
[2020-04-08 07:01] LABS: Glucose,Whole Blood 46 mg/dL (75-99)
[2020-04-08] MEDS ORDERED: GLUCAGON 1 MG/ML VIAL ONE (07:05)
[2020-04-08 07:26] LABS: Glucose,Whole Blood 99 mg/dL (75-99)
[2020-04-08] MEDS: INSULIN ASPART (NovoLOG) 100 UNIT/ML VIAL SQ SCH ×4 (07:30→21:45)
[2020-04-08] MEDS: METOPROLOL TARTRATE 12.5 MG TAB PO SCH ×2 (09:24→20:57)
[2020-04-08] MEDS: FERROUS SULFATE 325 MG TAB PO SCH ×2 (09:24→20:57)
[2020-04-08] MEDS: DULoxetine HCL 30 MG CAPSULE.DR PO SCH (09:24)
[2020-04-08] MEDS: LOSARTAN 50 MG TAB PO SCH (09:24)
[2020-04-08] MEDS: DIVALPROEX 250 MG TABLET.DR PO SCH ×3 (09:25→22:05)
[2020-04-08] MEDS: QUEtiapine 25 MG TAB PO SCH (09:25)
[2020-04-08] MEDS: LACOSAMIDE 150 MG TABLET PO SCH ×2 (09:25→20:57)
[2020-04-08] MEDS: ASPIRIN 81 MG PO SCH (09:25)
[2020-04-08] MEDS: CALCIUM CARB-VIT D 500MG-200UN 1 EACH TAB PO SCH ×2 (09:25→17:14)
[2020-04-08] MEDS: METOCLOPRAMIDE 5 MG TAB PO SCH ×3 (09:25→18:54)
[2020-04-08] MEDS: ASCORBIC ACID 500 MG TAB PO SCH (09:25)
[2020-04-08] MEDS: ATORVASTATIN 20 MG TAB PO SCH (09:25)
[2020-04-08 10:58] LABS: African American GFR (CKD) 93.5 (60.0-200.0); Albumin/Globulin Ratio 1.07 (1.60-3.17); Anion Gap 6.5 mmol/L (4.00-12.00); BUN/Creat Ratio 13.75 Ratio (12.00-20.00); Carbon Dioxide 29.5 mmol/L (21.6-31.8); Globulin 2.8 g/dL (1.6-3.3); Non-African American GFR(CKD) 80.7 (60.0-200.0); Potassium 3.4 mmol/L (3.5-5.5); Total Bilirubin 0.1 mg/dL (0.2-1.2); Total Protein 5.8 g/dL (6.2-8.2)
[2020-04-08 11:41] LABS: Glucose,Whole Blood 180 mg/dL (75-99)
[2020-04-08] MEDS: SODIUM CHLORIDE 0.9% 1,000 ML IV SCH (12:19)
[2020-04-08] MEDS: PANTOPRAZOLE 40 MG/10 ML VIAL IVP SCH ×2 (12:19→20:57)
[2020-04-08] MEDS ORDERED: PEG 3350-NA SULF,BICARB,CL/KCL 4,000 ML BOTTLE PO ONE (14:00)
[2020-04-08] MEDS ORDERED: HALOPERIDOL LACTATE 5 MG/ML 1 ML VIAL IM STA (14:16)
--- NOTE | 2020-04-08 14:27 | P.PN ---
Subjective Progress Note Date: 04/08/20 Principal diagnosis: Iron Deficiency Anemia Patient was seen and examined lying in bed. She is very drowsy. She denied any nausea, vomiting, or abdominal pain. Patient is kept repeating that she was hungry. She is tolerating clear liquid diet. Does not report any signs or s ymptoms of any active GI bleeding. Objective - Vital Signs Vital signs: Vital Signs Temp 97.5 F L 04/08/20 00:57 Pulse 68 04/08/20 07:00 Resp 18 04/08/20 07:00 BP 106/64 04/08/20 07:00 Pulse Ox 94 L 04/08/20 07:00 Intake & Output 04/07/20 04/08/20 04/08/20 18:59 06:59 18:59 Intake Total 500 240 Balance 500 240 Intake: Oral 500 240 Other: Voiding Method Diaper Diaper Diaper Incontinent Incontinent Incontinent # Voids 1 4 # Bowel Movements 0 1 - Exam General appearance: The patient is alert, drowsy, oriented, in no acute distress. HET: Head is normocephalic and atraumatic. Conjunctiva pink. Sclera anicteric. Neck: Supple without lymphadenopathy. Abdomen: Soft, nontender, nondistended with bowel sounds. No guarding or rigidity. Extremities: Normal skin color and turgor. No pedal edema Neurological: No focal deficits. Alert and oriented 3. - Labs CBC & Chem 7: 04/08/20 06:09 04/08/20 06:09 Labs: Abnormal Lab Results - Last 24 Hours (Table) 04/07/20 04/07/20 04/07/20 Range/Units 16:20 18:03 20:50 RBC (3.80-5.40) m/uL Hgb (11.4-16.0) gm/dL Hct (34.0-46.0) % RDW (11.5-15.5) % Potassium (3.5-5.5) mmol/L Glucose (70-110) mg/dL POC Glucose (mg/dL) 326 H 439 H 230 H (75-99) mg/dL Total Bilirubin (0.2-1.2) mg/dL Total Protein (6.2-8.2) g/dL Albumin (3.80-4.90) g/dL Albumin/Globulin Ratio (1.60-3.17) g/dL 04/08/20 04/08/20 04/08/20 Range/Units 06:09 06:09 07:00 RBC 2.90 L (3.80-5.40) m/uL Hgb 9.0 L (11.4-16.0) gm/dL Hct 28.6 L (34.0-46.0) % RDW 16.3 H (11.5-15.5) % Potassium 3.4 L (3.5-5.5) mmol/L Glucose 37 L* (70-110) mg/dL POC Glucose (mg/dL) 46 L (75-99) mg/dL Total Bilirubin 0.1 L (0.2-1.2) mg/dL Total Protein 5.8 L (6.2-8.2) g/dL Albumin 3.00 L (3.80-4.90) g/dL Albumin/Globulin Ratio 1.07 L (1.60-3.17) g/dL 04/08/20 Range/Units 11:40 RBC (3.80-5.40) m/uL Hgb (11.4-16.0) gm/dL Hct (34.0-46.0) % RDW (11.5-15.5) % Potassium (3.5-5.5) mmol/L Glucose (70-110) mg/dL POC Glucose (mg/dL) 180 H (75-99) mg/dL Total Bilirubin (0.2-1.2) mg/dL Total Protein (6.2-8.2) g/dL Albumin (3.80-4.90) g/dL Albumin/Globulin Ratio (1.60-3.17) g/dL Microbiology - Last 24 Hours (Table) 04/05/20 11:14 Blood Culture - Preliminary Blood No Growth after 48 hours Assessment and Plan (1) Iron deficiency anemia Narrative/Plan: Is is a 59-year-old female with multiple medical comorbidities who presented to the hospital due to altered mental status secondary to seizure. Patient found to be anemic which was also noted on prior hospitalization. Previous iron studies consistent with iron deficiency anemia and patient is on iron supplementation. She denies any signs or symptoms of GI bleeding, she does report a remote striatum endoscopic evaluation approximately 8 or 9 years ago with EGD and colonoscopy. Macrocytic indices anemia likely multifactorial given multiple medical comorbidities cannot rule out a component of GI blood loss but no overt signs or symptoms at this time with negative stool testing for occult blood Current Visit: Yes Status: Acute Code(s): D50.9 - IRON DEFICIENCY ANEMIA, UNSPECIFIED SNOMED Code(s): 80055496 Plan: Supportive care Continue Protonix therapy Continue to monitor hemoglobin and hematocrit and transfuse as needed Continue to monitor for signs or symptoms of GI blood loss Clear liquid diet Nothing by mouth after midnight Bowel prep ordered Patient is scheduled for an EGD and colonoscopy tomorrow Thank you for allowing us to participate in the care of the patient The impression and plan of care has been dictated as directed. I performed a history and examination of this patient, discussed the same with the dictator. I agree with the dictator's note ,documented as a scribe. Any additional findings or plans will be noted.
[2020-04-08] MEDS: bisacodyL 5 MG TABLET.DR PO STA ×2 (15:21→17:15)
[2020-04-08 16:52] LABS: Glucose,Whole Blood 192 mg/dL (75-99)
[2020-04-08] MEDS: HYDROcodone/APAP 10-325MG 1 EACH TAB PO PRN (17:26)
--- NOTE | 2020-04-08 17:55 | P.PN ---
Subjective Progress Note Date: 04/08/20 Melva Jackson, is a 59-year-old female who presented to [facility] emergency room with a chief complaint of mental status changes with worsening somnolence and episodes of vomiting, she was evaluated in the emergency room, vital examination on presentation reveals a temperature of 97.9 pulse 85 respiration 18 blood pressure 174/74 pulse ox 93% on room air, white blood count was 10.1 hemoglobin 9.9 platelet count 196 sodium 136 BUN 21 creatinine 1.12 glucose 113 lactic acid 1.2 urine analysis revealed trace leukocyte esterase with moderate bacteria, chest x-ray revealed no acute pul monary process, computed tomography scan of the brain revealed no evidence of acute intracranial hemorrhage or midline shift there was a large area of old encephalomalacic of the right anterior cerebral hemisphere related to previous stroke. Patient was admitted to telemetry floor neurology consultation was requested due to concern of a recurrent stroke. Patient has a known history of insulin-dependent diabetes mellitus type 1 history of hypertension, history of hyperlipidemia, history of seizure disorder, history of asthma, and history of psychosis. On 04/07/2020 patient is alert and oriented resting in bed patient does appear restless. CT of abdomen and pelvis has been ordered due to nausea and vomiting. Hemoglobin 8.2. GI and neurology services are following. Patient denies any chest pain or shortness of breath. Does have appetite requesting food. on 04/18/2020 patient was seen and examined on the medical floor she is alert confused and occasionally agitated she received a dose of Haldol earlier today her hemoglobin is down and gastroenterology planning EGD and colonoscopy michelle further review of system was possible today. Objective - Vital Signs Vital signs: Vital Signs Temp 97.5 F L 04/08/20 00:57 Pulse 68 04/08/20 07:00 Resp 18 04/08/20 07:00 BP 106/64 04/08/20 07:00 Pulse Ox 94 L 04/08/20 07:00 Intake & Output 04/07/20 04/08/20 04/08/20 18:59 06:59 18:59 Intake Total 500 240 Balance 500 240 Intake: Oral 500 240 Other: Voiding Method Diaper Diaper Diaper Incontinent Incontinent Incontinent # Voids 1 4 # Bowel Movements 0 1 - Exam In general patient is alert, responsive, in no distress HEENT head normocephalic and atraumatic Neck is supple no JVD no goiter no lymphadenopathy Chest exam reveals a few scattered crackles no wheezing Cardiac exam reveals regular heart sounds no gallops no murmurs Abdomen is soft nontender no organomegaly was normal bowel sounds Extremity exam reveals no edema no cyanosis or clubbing Neurological examination patient is alert responsive answering questions a ppropriately she is moving all 4 extremity spontaneously there is residual spasticity and weakness on the left upper extremity in the left lower extremity - Labs CBC & Chem 7: 04/08/20 06:09 04/08/20 06:09 Labs: Abnormal Lab Results - Last 24 Hours (Table) 04/07/20 04/07/20 04/08/20 Range/Units 18:03 20:50 06:09 RBC 2.90 L (3.80-5.40) m/uL Hgb 9.0 L (11.4-16.0) gm/dL Hct 28.6 L (34.0-46.0) % RDW 16.3 H (11.5-15.5) % Potassium (3.5-5.5) mmol/L Glucose (70-110) mg/dL POC Glucose (mg/dL) 439 H 230 H (75-99) mg/dL Total Bilirubin (0.2-1.2) mg/dL Total Protein (6.2-8.2) g/dL Albumin (3.80-4.90) g/dL Albumin/Globulin Ratio (1.60-3.17) g/dL 04/08/20 04/08/20 04/08/20 Range/Units 06:09 07:00 11:40 RBC (3.80-5.40) m/uL Hgb (11.4-16.0) gm/dL Hct (34.0-46.0) % RDW (11.5-15.5) % Potassium 3.4 L (3.5-5.5) mmol/L Glucose 37 L* (70-110) mg/dL POC Glucose (mg/dL) 46 L 180 H (75-99) mg/dL Total Bilirubin 0.1 L (0.2-1.2) mg/dL Total Protein 5.8 L (6.2-8.2) g/dL Albumin 3.00 L (3.80-4.90) g/dL Albumin/Globulin Ratio 1.07 L (1.60-3.17) g/dL 04/08/20 Range/Units 16:50 RBC (3.80-5.40) m/uL Hgb (11.4-16.0) gm/dL Hct (34.0-46.0) % RDW (11.5-15.5) % Potassium (3.5-5.5) mmol/L Glucose (70-110) mg/dL POC Glucose (mg/dL) 192 H (75-99) mg/dL Total Bilirubin (0.2-1.2) mg/dL Total Protein (6.2-8.2) g/dL Albumin (3.80-4.90) g/dL Albumin/Globulin Ratio (1.60-3.17) g/dL Microbiology - Last 24 Hours (Table) 04/05/20 11:14 Blood Culture - Preliminary Blood No Growth after 72 hours Assessment and Plan Plan: 1. Mental status changes likely related to recurrent seizure activity due to missing antiseizure medications due to vomiting 2. Previous history of stroke in 2014, no evidence of stroke at this time. 3. Underlying history of insulin-dependent diabetes mellitus, type I maintained on insulin, with previous multiple admissions with DKA 4. Underlying history of gastroparesis, maintained on Reglan 5. History of psychosis maintained on Seroquel 6. Underlying history of hypertension 7. Underlying history of hyperlipidemia 8. Previous history of coronary artery disease with myocardial infarction in t he past 9. Anemia was significant hemoglobin drop since yesterday. Hemoglobin improving today 8.2 At this time patient is admitted to medical floor, she was seen by neurology and was given IV antiseizure medications Mental status improved significantly today GI services following possible plans for scope CT of abdomen and pelvis ordered Will give IV iron and monitor closely
--- NOTE | 2020-04-08 18:17 | P.PN ---
Subjective Progress Note Date: 04/08/20 Patient was seen for a follow-up. Patient with recurrent admissions to the hospital for seizures. This time patient was having protracted vomiting and therefore not able to absorb oral antiepileptic medications. Objective - Vital Signs Vital signs: Vital Signs Temp 97.5 F L 04/08/20 00:57 Pulse 68 04/08/20 07:00 Resp 18 04/08/20 07:00 BP 106/64 04/08/20 07:00 Pulse Ox 94 L 04/08/20 07:00 Intake & Output 04/07/20 04/08/20 04/08/20 18:59 06:59 18:59 Intake Total 500 240 Balance 500 240 Intake: Oral 500 240 Other: Voiding Method Diaper Diaper Diaper Incontinent Incontinent Incontinent # Voids 1 4 # Bowel Movements 0 1 - Exam Patient is alert and awake in no distress. Laying comfortably in the bed. Continues to be left spastic hemiplegic. No seizures reported since in the hospital. - Labs CBC & Chem 7: 04/08/20 06:09 04/08/20 06:09 Labs: Abnormal Lab Results - Last 24 Hours (Table) 04/07/20 04/07/20 04/08/20 Range/Units 18:03 20:50 06:09 RBC 2.90 L (3.80-5.40) m/uL Hgb 9.0 L (11.4-16.0) gm/dL Hct 28.6 L (34.0-46.0) % RDW 16.3 H (11.5-15.5) % Potassium (3.5-5.5) mmol/L Glucose (70-110) mg/dL POC Glucose (mg/dL) 439 H 230 H (75-99) mg/dL Total Bilirubin (0.2-1.2) mg/dL Total Protein (6.2-8.2) g/dL Albumin (3.80-4.90) g/dL Albumin/Globulin Ratio (1.60-3.17) g/dL 04/08/20 04/08/20 04/08/20 Range/Units 06:09 07:00 11:40 RBC (3.80-5.40) m/uL Hgb (11.4-16.0) gm/dL Hct (34.0-46.0) % RDW (11.5-15.5) % Potassium 3.4 L (3.5-5.5) mmol/L Glucose 37 L* (70-110) mg/dL POC Glucose (mg/dL) 46 L 180 H (75-99) mg/dL Total Bilirubin 0.1 L (0.2-1.2) mg/dL Total Protein 5.8 L (6.2-8.2) g/dL Albumin 3.00 L (3.80-4.90) g/dL Albumin/Globulin Ratio 1.07 L (1.60-3.17) g/dL 04/08/20 Range/Units 16:50 RBC (3.80-5.40) m/uL Hgb (11.4-16.0) gm/dL Hct (34.0-46.0) % RDW (11.5-15.5) % Potassium (3.5-5.5) mmol/L Glucose (70-110) mg/dL POC Glucose (mg/dL) 192 H (75-99) mg/dL Total Bilirubin (0.2-1.2) mg/dL Total Protein (6.2-8.2) g/dL Albumin (3.80-4.90) g/dL Albumin/Globulin Ratio (1.60-3.17) g/dL Microbiology - Last 24 Hours (Table) 04/05/20 11:14 Blood Culture - Preliminary Blood No Growth after 72 hours Assessment and Plan Assessment: * Seizure disorder, provoked by lack of antiepileptic medication secondary due to vomiting. * History of CVA with spastic left hemiplegia * Cognitive deficits due to CVA. * History of diabetes, with history of hypoglycemic episodes as well as DKA, suggestive of brittle diabetes Plan: * Continue patient's home seizure medications. Patient currently on Depakote 250 mg 3 times a day and Vimpat 150 mg twice a day. * Await Depakote level. * Avoid episodes of hypoglycemia. Patient's blood glucose was 37 this 6:09 a.m.
[2020-04-08] MEDS: HALOPERIDOL LACTATE 5 MG/ML 1 ML VIAL IM PRN (20:58)
[2020-04-08 21:28] LABS: Glucose,Whole Blood 164 mg/dL (75-99)
[2020-04-08] MEDS: QUEtiapine 50 MG TAB PO SCH (21:53)
[2020-04-09] MEDS: SODIUM CHLORIDE 0.9% 1,000 ML IV SCH ×2 (00:36→10:32)
[2020-04-09] MEDS: HALOPERIDOL LACTATE 5 MG/ML 1 ML VIAL IM PRN (02:34)
[2020-04-09 06:47] LABS: Glucose,Whole Blood 513 mg/dL (75-99)
[2020-04-09 06:57] LABS: Glucose,Whole Blood 484 mg/dL (75-99)
[2020-04-09 07:10] LABS: Glucose,Whole Blood 498 mg/dL (75-99)
[2020-04-09] MEDS: INSULIN ASPART (NovoLOG) 100 UNIT/ML VIAL SQ SCH ×4 (07:39→21:05)
[2020-04-09] MEDS: METOCLOPRAMIDE 5 MG TAB PO SCH ×3 (07:42→16:15)
[2020-04-09] MEDS: CALCIUM CARB-VIT D 500MG-200UN 1 EACH TAB PO SCH ×2 (07:42→16:15)
[2020-04-09 07:53] LABS: HCT 28.8 % (34.0-46.0); HGB 8.8 gm/dL (11.4-16.0); Hypochromasia Marked; MCH 31.5 pg (25.0-35.0); MCHC 30.7 g/dL (31.0-37.0); MCV 102.6 fL (80.0-100.0); Macrocytosis Moderate; Platelet Count 216 k/uL (150-450); RBC 2.81 m/uL (3.80-5.40); RDW 15.9 % (11.5-15.5); WBC 8.2 k/uL (3.8-10.6)
[2020-04-09 08:00] LABS: Glucose,Whole Blood 543 mg/dL (75-99)
[2020-04-09 09:04] LABS: Glucose,Whole Blood 385 mg/dL (75-99)
[2020-04-09] MEDS: DIVALPROEX 250 MG TABLET.DR PO SCH ×2 (09:44→21:06)
[2020-04-09] MEDS: LACOSAMIDE 150 MG TABLET PO SCH ×2 (09:44→21:05)
[2020-04-09] MEDS: LOSARTAN 50 MG TAB PO SCH (10:31)
[2020-04-09] MEDS: ASCORBIC ACID 500 MG TAB PO SCH (10:31)
[2020-04-09] MEDS: DULoxetine HCL 30 MG CAPSULE.DR PO SCH (10:31)
[2020-04-09] MEDS: ASPIRIN 81 MG PO SCH (10:31)
[2020-04-09] MEDS: METOPROLOL TARTRATE 12.5 MG TAB PO SCH ×2 (10:31→21:05)
[2020-04-09] MEDS: ATORVASTATIN 20 MG TAB PO SCH (10:31)
[2020-04-09] MEDS: FERROUS SULFATE 325 MG TAB PO SCH (10:31)
[2020-04-09] MEDS: QUEtiapine 25 MG TAB PO SCH (10:32)
[2020-04-09] MEDS: PANTOPRAZOLE 40 MG/10 ML VIAL IVP SCH ×2 (10:54→21:04)
[2020-04-09] MEDS ORDERED: VALPROATE SODIUM 250 MG in SODIUM CHLORIDE 0.9% 100 ML IVPB SCH (11:00)
[2020-04-09 11:09] LABS: African American GFR (CKD) 57.3 (60.0-200.0); Anion Gap 12.6 mmol/L (4.00-12.00); Calcium 8.7 mg/dL (8.7-10.3); Carbon Dioxide 26.4 mmol/L (21.6-31.8); Non-African American GFR(CKD) 49.4 (60.0-200.0); Potassium 4.9 mmol/L (3.5-5.5)
[2020-04-09 11:15] LABS: Glucose,Whole Blood 250 mg/dL (75-99)
[2020-04-09] MEDS ORDERED: LACOSAMIDE IV 150 MG in SODIUM CHLORIDE 0.9% 50 ML IVPB SCH (12:00)
[2020-04-09] MEDS ORDERED: PROPOFOL 10 MG/ML 20 ML VIAL IV ONE (14:32)
[2020-04-09] MEDS ORDERED: SODIUM CHLORIDE 0.9% 500 ML 500 ML IV ONE (14:37)
--- NOTE | 2020-04-09 15:09 | P.PCN ---
Date of Procedure: 04/09/20 Description of Procedure: BRIEF HISTORY: 59-year-old female with multiple medical comorbidities including insulin- dependent diabetes mellitus, prior CVA, hypertension, hyperlipidemia, coronary artery disease, peripheral vascular disease and COPD who presented to the hospital due altered mental status felt to be secondary to seizure. This was felt to be provoked as the patient was having some nausea and vomiting and unable to tolerate her seizure medication.patient has had multiple admissions to the hospital as well as recent admission for suspected pneumonia and hypoglycemia. She has been noted to be anemic. Currently she is denying any signs or symptoms of GI bleeding. She states her last endoscopic evaluation was a 10 years ago with EGD and colonoscopy significant for polypectomy. On presentation hemoglobin 7.6 with WBC 6.6, platelet count 147,000. Plan was for EGD and colonoscopy was for patient was unable to tolerate bowel prep. PROCEDURE PERFORMED: Esophagogastroduodenoscopy with biopsy and gold probe ablation . PREOPERATIVE DIAGNOSIS: Iron deficiency anemia. ESTIMATED BLOOD LOSS: Minimal. IV sedation per anesthesia. PROCEDURE: After informed consent was obtained, the patient was brought into the endoscopy unit. IV sedation was administered by Anesthesia under continuous monitoring. Initially the Olympus GIF-190 video endoscope was inserted into the mouth. Esophagus intubated without any difficulty. It was gradually advanced into the stomach and duodenum and carefully examined. The bulb and the second part of the duodenum appeared normal, except for one nonbleeding AVM in the second portion of the duodenum which was treated with gold probe ablation. Biopsies of the duodenum were taken. The scope at this time was withdrawn to the stomach, adequately insufflated with air, and upon careful examination, mucosa of the antrum, body, cardia and the fundus were significant for severe scattered erythema and superficial erosions suggestive of severe gastritis with biopsies of the antrum and body taken. The scope was then withdrawn into the esophagus. The GE junction was located at 39 cm from the incisors. The esophagus appeared normal. There were no erosions or ulcerations seen and the patient tolerated the procedure well. IMPRESSION: 1. Severe gastritis. 2. 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 3. Biopsies of the antrum and body and duodenum. RECOMMENDATIONS: The findings of this examination were discussed with the patient in the medical team. Okay to resume diet. Continue symptomatic treatment of nausea and vomiting. Continue BID PPI therapy. Avoid NSAID use. Await pathology from biopsies.
[2020-04-09 15:22] LABS: Glucose,Whole Blood 448 mg/dL (75-99)
[2020-04-09 15:22] LABS: Glucose,Whole Blood 425 mg/dL (75-99)
[2020-04-09] MEDS ORDERED: INSULIN ASPART (NovoLOG) 100 UNIT/ML VIAL SQ ONE (16:07)
[2020-04-09] MEDS ORDERED: DIVALPROEX 250 MG TABLET.DR PO STA (16:40)
[2020-04-09 16:57] LABS: Glucose,Whole Blood 437 mg/dL (75-99)
--- NOTE | 2020-04-09 17:44 | P.PN ---
Subjective Progress Note Date: 04/09/20 Patient was seen for a follow-up. Patient just came back from an EGD, which showed antral gastritis, nonbleeding duodenal AVM. No further seizures reported. Patient at present asking for oatmeal. Objective - Vital Signs Vital signs: Vital Signs Temp 99.0 F 04/09/20 15:00 Pulse 109 H 04/09/20 15:00 Resp 20 04/09/20 15:00 BP 114/72 04/09/20 15:00 Pulse Ox 94 L 04/09/20 15:00 Intake & Output 04/08/20 04/09/20 04/09/20 18:59 06:59 18:59 Intake Total 240 100 300 Balance 240 100 300 Intake: IV 200 Intake, IV Titration 100 Amount Valproate Sodium 250 mg 100 In Sodium Chloride 0.9% 100 ml @ 100 mls/hr IVPB Q8H [facility] Rx#:[id number] Oral 240 100 Other: Voiding Method Diaper Diaper Diaper Incontinent Incontinent Incontinent # Voids 3 # Bowel Movements 1 - Exam Patient is alert and awake in no distress. Appears somewhat restless, asking for oatmeal, trying to get out of bed. Continues to be left spastic hemiparesis. No seizures reported since in the hospital. - Labs CBC & Chem 7: 04/09/20 07:21 04/09/20 07:21 Labs: Abnormal Lab Results - Last 24 Hours (Table) 04/08/20 04/09/20 04/09/20 Range/Units 21:17 06:45 06:46 RBC (3.80-5.40) m/uL Hgb (11.4-16.0) gm/dL Hct (34.0-46.0) % MCV (80.0-100.0) fL MCHC (31.0-37.0) g/dL RDW (11.5-15.5) % Anion Gap (4.00-12.00) mmol/L Est GFR (CKD-EPI)AfAm (60.0-200.0) Est GFR (CKD-EPI)NonAf (60.0-200.0) Glucose (70-110) mg/dL POC Glucose (mg/dL) 164 H 513 H 484 H (75-99) mg/dL 04/09/20 04/09/20 04/09/20 Range/Units 07:09 07:21 07:21 RBC 2.81 L (3.80-5.40) m/uL Hgb 8.8 L (11.4-16.0) gm/dL Hct 28.8 L (34.0-46.0) % MCV 102.6 H (80.0-100.0) fL MCHC 30.7 L (31.0-37.0) g/dL RDW 15.9 H (11.5-15.5) % Anion Gap 12.60 H (4.00-12.00) mmol/L Est GFR (CKD-EPI)AfAm 57.3 L (60.0-200.0) Est GFR (CKD-EPI)NonAf 49.4 L (60.0-200.0) Glucose 536 H* (70-110) mg/dL POC Glucose (mg/dL) 498 H (75-99) mg/dL 04/09/20 04/09/20 04/09/20 Range/Units 07:59 09:01 11:13 RBC (3.80-5.40) m/uL Hgb (11.4-16.0) gm/dL Hct (34.0-46.0) % MCV (80.0-100.0) fL MCHC (31.0-37.0) g/dL RDW (11.5-15.5) % Anion Gap (4.00-12.00) mmol/L Est GFR (CKD-EPI)AfAm (60.0-200.0) Est GFR (CKD-EPI)NonAf (60.0-200.0) Glucose (70-110) mg/dL POC Glucose (mg/dL) 543 H 385 H 250 H (75-99) mg/dL 04/09/20 04/09/20 04/09/20 Range/Units 15:12 15:14 16:56 RBC (3.80-5.40) m/uL Hgb (11.4-16.0) gm/dL Hct (34.0-46.0) % MCV (80.0-100.0) fL MCHC (31.0-37.0) g/dL RDW (11.5-15.5) % Anion Gap (4.00-12.00) mmol/L Est GFR (CKD-EPI)AfAm (60.0-200.0) Est GFR (CKD-EPI)NonAf (60.0-200.0) Glucose (70-110) mg/dL POC Glucose (mg/dL) 425 H 448 H 437 H (75-99) mg/dL Microbiology - Last 24 Hours (Table) 04/05/20 11:14 Blood Culture - Preliminary Blood No Growth after 96 hours Assessment and Plan Assessment: * Seizure disorder, provoked by lack of antiepileptic medication secondary due to vomiting. * History of CVA with spastic left hemiplegia * Cognitive deficits due to CVA. * History of diabetes, with history of hypoglycemic episodes as well as DKA, suggestive of brittle diabetes Plan: * Continue patient's home seizure medications. Patient currently on Depakote 2 50 mg 3 times a day and Vimpat 150 mg twice a day. * Total Depakote level yesterday was 52 (50-100), which is therapeutic. Patient's free Depakote level was 14.9 (4.8-17.3) on 03/06/2020. * Avoid episodes of hypoglycemia. * Neurologically clear.
[2020-04-09] MEDS: SODIUM FERRIC GLUCONAT-SUCROSE 125 MG in SODIUM CHLORIDE 0.9% 100 ML IVPB SCH (18:06)
[2020-04-09 20:38] LABS: Glucose,Whole Blood 212 mg/dL (75-99)
[2020-04-09] MEDS: HYDROcodone/APAP 10-325MG 1 EACH TAB PO PRN (21:04)
[2020-04-09] MEDS: QUEtiapine 50 MG TAB PO SCH (21:07)
[2020-04-10] MEDS: SODIUM CHLORIDE 0.9% 1,000 ML IV SCH ×2 (01:50→12:49)
[2020-04-10] MEDS: HALOPERIDOL LACTATE 5 MG/ML 1 ML VIAL IM PRN ×2 (03:31→08:35)
[2020-04-10] MEDS: HYDROcodone/APAP 10-325MG 1 EACH TAB PO PRN ×3 (04:13→23:36)
[2020-04-10 06:54] LABS: Glucose,Whole Blood 517 mg/dL (75-99)
[2020-04-10] MEDS: INSULIN ASPART (NovoLOG) 100 UNIT/ML VIAL SQ SCH ×4 (07:18→20:24)
[2020-04-10] MEDS: ATORVASTATIN 20 MG TAB PO SCH (08:33)
[2020-04-10] MEDS: ASPIRIN 81 MG PO SCH (08:33)
[2020-04-10] MEDS: DULoxetine HCL 30 MG CAPSULE.DR PO SCH (08:33)
[2020-04-10] MEDS: ASCORBIC ACID 500 MG TAB PO SCH (08:33)
[2020-04-10] MEDS: CALCIUM CARB-VIT D 500MG-200UN 1 EACH TAB PO SCH ×2 (08:33→17:10)
[2020-04-10] MEDS: METOCLOPRAMIDE 5 MG TAB PO SCH ×3 (08:34→17:10)
[2020-04-10] MEDS: QUEtiapine 25 MG TAB PO SCH (08:34)
[2020-04-10] MEDS: DIVALPROEX 250 MG TABLET.DR PO SCH ×3 (08:34→20:25)
[2020-04-10] MEDS: PANTOPRAZOLE 40 MG/10 ML VIAL IVP SCH ×2 (08:39→20:24)
[2020-04-10] MEDS: LACOSAMIDE 150 MG TABLET PO SCH ×2 (08:39→20:25)
[2020-04-10] MEDS: SODIUM FERRIC GLUCONAT-SUCROSE 125 MG in SODIUM CHLORIDE 0.9% 100 ML IVPB SCH (08:49)
[2020-04-10 09:19] LABS: Glucose,Whole Blood 388 mg/dL (75-99)
[2020-04-10] MEDS: METOPROLOL TARTRATE 12.5 MG TAB PO SCH ×2 (10:54→20:25)
[2020-04-10] MEDS: LOSARTAN 50 MG TAB PO SCH (10:54)
[2020-04-10 11:35] LABS: Glucose,Whole Blood 297 mg/dL (75-99)
[2020-04-10 12:04] LABS: Anisocytosis Slight; HCT 24.9 % (34.0-46.0); MCHC 32.1 g/dL (31.0-37.0); MCV 99.5 fL (80.0-100.0); Macrocytosis Slight; Mean Platelet Volume 8.1; Platelet Count 223 k/uL (150-450); RBC 2.51 m/uL (3.80-5.40); RDW 16.1 % (11.5-15.5); WBC 5.6 k/uL (3.8-10.6)
--- NOTE | 2020-04-10 12:19 | P.DS ---
Providers Date of admission: 04/06/20 11:32 Expected date of discharge: 04/10/20 Attending physician: Sherlyn Chen Consults: 04/05/20 13:09 Consult Physician Routine Consulting Provider: Bairon Kearns Consult Reason/Comments: AMS Do you want consulting provider notified?: Yes 04/06/20 09:50 Consult Physician Routine Consulting Provider: Mehul Melgoza Consult Reason/Comments: anemia Do you want consulting provider notified?: Yes Primary care physician: Sherlyn Chen [facility] Course: Discharge diagnosis 1. Mental status changes likely related to recurrent seizure activity due to missing antiseizure medications due to vomiting. Patient was evaluated by neurology services continue current home seizure medication doses. Cleared by neurology. Resolved 2. Previous history of stroke in 2014, no evidence of stroke at this time. 3. Underlying history of insulin-dependent diabetes mellitus, type I maintained on insulin, with previous multiple admissions with DKA 4. Underlying history of gastroparesis, maintained on Reglan 5. History of psychosis maintained on Seroquel 6. Underlying history of hypertension 7. Underlying history of hyperlipidemia 8. Previous history of coronary artery disease with myocardial infarction in the past 9. Anemia was significant hemoglobin drop since yesterday. Hemoglobin improving today 8.2 10. Nonbleeding duodenal AVM status post EGD with ablation. Per GI services continue PPI twice a day therapy avoid NSAID use awaiting pathology okay to resume diet Hospital course Melva Jackson, is a 59-year-old female who presented to [facility] emergency room with a chief complaint of mental status changes with worsening somnolence and episodes of vomiting, she was evaluated in the emergency room, vital examination on presentation reveals a temperature of 97.9 pulse 85 respiration 18 blood pressure 174/74 pulse ox 93% on room air, white blood count was 10.1 hemoglobin 9.9 platelet count 196 sodium 136 BUN 21 creatinine 1.12 glucose 113 lactic acid 1.2 urine analysis revealed trace leukocyte esterase with moderate bacteria, chest x-ray revealed no acute pulmonary process, computed tomography scan of the brain revealed no evidence of acute intracranial hemorrhage or midline shift there was a large area of old encephalomalacic of the right anterior cerebral hemisphere related to previous stroke. Patient was admitted to telemetry floor neurology consultation was requested due to concern of a recurrent stroke. Patient has a known history of insulin-dependent diabetes mellitus type 1 history of hypertension, history of hyperlipidemia, history of seizure disorder, history of asthma, and history of psychosis. On 04/07/2020 patient is alert and oriented resting in bed patient does appear restless. CT of abdomen and pelvis has been ordered due to nausea and vomiting. Hemoglobin 8.2. GI and neurology services are following. Patient denies any chest pain or shortness of breath. Does have appetite requesting food. on 04/18/2020 patient was seen and examined on the medical floor she is alert confused and occasionally agitated she received a dose of Haldol earlier today her hemoglobin is down and gastroenterology planning EGD and colonoscopy michelle further review of system was possible today. On 04/10/2020 patient is alert resting comfortably in bed with occasional agitation but has returned to baseline. Patient is status post EGD with AVM was cauterized. Patient will be discharged on PPI twice a day. At that time p atient is shortness of breath. Patient denies nausea vomiting or diarrhea. Patient denies any urinary burning or frequency Patient Condition at Discharge: Stable Plan - Discharge Summary Discharge Rx Participant: Yes New Discharge Prescriptions: New Pantoprazole Sodium [Protonix] 40 mg PO DAILY 30 Days #30 tablet. Continue HYDROcodone/APAP 10-325MG [[place] 10-325] 1 tab PO TID PRN PRN Reason: Pain Atorvastatin [Lipitor] 20 mg PO DAILY Aspirin [Adult Low Dose Aspirin EC] 81 mg PO DAILY Ferrous Sulfate [Iron (65 MG Elemental)] 325 mg PO BID Divalproex [Depakote] 250 mg PO TID #90 tablet. Albuterol Sulfate [Ventolin HFA] 2 puff INHALATION RT-Q4H PRN PRN Reason: Shortness Of Breath Losartan [Cozaar] 50 mg PO DAILY tab Ascorbic Acid [Vitamin C] 500 mg PO DAILY Vitamin B Complex 1 tab PO DAILY QUEtiapine [SEROquel] 50 mg PO HS 30 Days #30 tab DULoxetine HCL [Cymbalta] 30 mg PO DAILY capsule. Metoclopramide [Reglan] 5 mg PO AC-TID tab QUEtiapine [SEROquel] 25 mg PO DAILY tab ALPRAZolam [Xanax] 0.5 mg PO QID PRN tab PRN Reason: Anxiety Calcium Carb-Vit D 500Mg-200Un [Oscal 500+D] 1 tab PO BID-W/MEALS INSULIN LISPRO (humaLOG) [humaLOG] 6 units SQ AC-TID Ondansetron Odt [Zofran ODT] 4 mg PO Q8HR PRN 3 Days #9 tab PRN Reason: Nausea Lacosamide [Vimpat] 100 mg PO BID Metoprolol Tartrate [Lopressor] 12.5 mg PO BID Insulin Detemir [Levemir Flextouch] 10 units SQ HS Discontinued Famotidine [Pepcid] 20 mg PO DAILY No Action Clopidogrel [Plavix] 75 mg PO DAILY tab Discharge Medication List HYDROcodone/APAP 10-325MG [[place] 10-325] 1 tab PO TID PRN 10/03/16 [History] Atorvastatin [Lipitor] 20 mg PO DAILY 12/28/18 [History] Aspirin [Adult Low Dose Aspirin EC] 81 mg PO DAILY 06/09/19 [History] Ferrous Sulfate [Iron (65 MG Elemental)] 325 mg PO BID 06/09/19 [History] Divalproex [Depakote] 250 mg PO TID #90 tablet. 08/17/19 [Rx] Albuterol Sulfate [Ventolin HFA] 2 puff INHALATION RT-Q4H PRN 12/26/19 [History] Losartan [Cozaar] 50 mg PO DAILY tab 01/18/20 [Rx] Ascorbic Acid [Vitamin C] 500 mg PO DAILY 01/29/20 [History] Vitamin B Complex 1 tab PO DAILY 01/29/20 [History] Clopidogrel [Plavix] 75 mg PO DAILY tab 02/02/20 [Rx] QUEtiapine [SEROquel] 50 mg PO HS 30 Days #30 tab 03/13/20 [Rx] ALPRAZolam [Xanax] 0.5 mg PO QID PRN tab 03/26/20 [Rx] DULoxetine HCL [Cymbalta] 30 mg PO DAILY capsule. 03/26/20 [Rx] Metoclopramide [Reglan] 5 mg PO AC-TID tab 03/26/20 [Rx] QUEtiapine [SEROquel] 25 mg PO DAILY tab 03/26/20 [Rx] Calcium Carb-Vit D 500Mg-200Un [Oscal 500+D] 1 tab PO BID-W/MEALS 03/31/20 [History] INSULIN LISPRO (humaLOG) [humaLOG] 6 units SQ AC-TID 03/31/20 [History] Ondansetron Odt [Zofran ODT] 4 mg PO Q8HR PRN 3 Days #9 tab 03/31/20 [Rx] Insulin Detemir [Levemir Flextouch] 10 units SQ HS 04/05/20 [History] Lacosamide [Vimpat] 100 mg PO BID 04/05/20 [History] Metoprolol Tartrate [Lopressor] 12.5 mg PO BID 04/05/20 [History] Pantoprazole Sodium [Protonix] 40 mg PO DAILY 30 Days #30 tablet. 04/10/20 [Rx] Follow up Appointment(s)/Referral(s): [facility], [NON-STAFF] - As Needed Sherlyn Chen MD [Primary Care Provider] - 1-2 days Discharge Disposition: HOME SELF-CARE
--- NOTE | 2020-04-10 12:48 | P.PN ---
Subjective Progress Note Date: 04/10/20 Patient was seen for a follow-up. Patient somnolent at this time. EGD showed antral gastritis, nonbleeding duodenal AVM. No further seizures reported since yesterday. Objective - Vital Signs Vital signs: Vital Signs Temp 96.9 F L 04/10/20 07:00 Pulse 81 04/10/20 07:00 Resp 16 04/10/20 07:00 BP 90/53 04/10/20 11:49 Pulse Ox 92 L 04/10/20 07:00 Intake & Output 04/09/20 04/10/20 04/10/20 18:59 06:59 18:59 Intake Total 300 300 236 Balance 300 300 236 Intake: IV 200 Intake, IV Titration 100 Amount Valproate Sodium 250 mg 100 In Sodium Chloride 0.9% 100 ml @ 100 mls/hr IVPB Q8H [facility] Rx#:[id number] Oral 300 236 Other: Voiding Method Diaper Diaper Diaper Incontinent Incontinent Incontinent # Voids 3 # Bowel Movements 1 - Exam Patient is sleeping, did not wake her up. Spoke to the nurse. States she has been stable. No seizures reported since in the hospital. - Labs CBC & Chem 7: 04/10/20 11:36 04/09/20 07:21 Labs: Abnormal Lab Results - Last 24 Hours (Table) 04/09/20 04/09/20 04/09/20 Range/Units 07:21 15:12 15:14 RBC (3.80-5.40) m/uL Hgb (11.4-16.0) gm/dL Hct (34.0-46.0) % RDW (11.5-15.5) % Glucose 536 H* (70-110) mg/dL POC Glucose (mg/dL) 425 H 448 H (75-99) mg/dL 04/09/20 04/09/20 04/10/20 Range/Units 16:56 20:23 06:50 RBC (3.80-5.40) m/uL Hgb (11.4-16.0) gm/dL Hct (34.0-46.0) % RDW (11.5-15.5) % Glucose (70-110) mg/dL POC Glucose (mg/dL) 437 H 212 H 517 H (75-99) mg/dL 04/10/20 04/10/20 04/10/20 Range/Units 09:17 11:34 11:36 RBC 2.51 L (3.80-5.40) m/uL Hgb 8.0 L (11.4-16.0) gm/dL Hct 24.9 L (34.0-46.0) % RDW 16.1 H (11.5-15.5) % Glucose (70-110) mg/dL POC Glucose (mg/dL) 388 H 297 H (75-99) mg/dL Microbiology - Last 24 Hours (Table) 04/05/20 11:14 Blood Culture - Preliminary Blood No Growth after 96 hours Assessment and Plan Assessment: * Seizure disorder, provoked by lack of antiepileptic medication secondary due to vomiting. * History of CVA with spastic left hemiplegia * Cognitive deficits due to CVA. * History of diabetes, with history of hypoglycemic episodes as well as DKA, suggestive of brittle diabetes Plan: * Continue patient's home seizure medications. Patient currently on Depakote 250 mg 3 times a day and Vimpat 150 mg twice a day. * Total Depakote level yesterday was 52 (50-100), which is therapeutic. Anthony cosme's free Depakote level was 14.9 (4.8-17.3) on 03/06/2020. * Avoid episodes of hypoglycemia. * Neurologically clear for discharge. * Discussed with patient's nurse.
--- NOTE | 2020-04-10 13:45 | P.PN ---
Subjective Progress Note Date: 04/10/20 Melva Jackson, is a 59-year-old female who presented to [facility] emergency room with a chief complaint of mental status changes with worsening somnolence and episodes of vomiting, she was evaluated in the emergency room, vital examination on presentation reveals a temperature of 97.9 pulse 85 respiration 18 blood pressure 174/74 pulse ox 93% on room air, white blood count was 10.1 hemoglobin 9.9 platelet count 196 sodium 136 BUN 21 creatinine 1.12 glucose 113 lactic acid 1.2 urine analysis revealed trace leukocyte esterase with moderate bacteria, chest x-ray revealed no acute pul monary process, computed tomography scan of the brain revealed no evidence of acute intracranial hemorrhage or midline shift there was a large area of old encephalomalacic of the right anterior cerebral hemisphere related to previous stroke. Patient was admitted to telemetry floor neurology consultation was requested due to concern of a recurrent stroke. Patient has a known history of insulin-dependent diabetes mellitus type 1 history of hypertension, history of hyperlipidemia, history of seizure disorder, history of asthma, and history of psychosis. On 04/07/2020 patient is alert and oriented resting in bed patient does appear restless. CT of abdomen and pelvis has been ordered due to nausea and vomiting. Hemoglobin 8.2. GI and neurology services are following. Patient denies any chest pain or shortness of breath. Does have appetite requesting food. on 04/18/2020 patient was seen and examined on the medical floor she is alert confused and occasionally agitated she received a dose of Haldol earlier today her hemoglobin is down and gastroenterology planning EGD and colonoscopy michelle further review of system was possible today. On 04/10/2020 patient is currently sleepy will wake up to follow commands but falls back to sleep clinic DC Haldol and continue to monitor for 24 hours possible discharge tomorrow Objective - Vital Signs Vital signs: Vital Signs Temp 96.9 F L 04/10/20 07:00 Pulse 81 04/10/20 07:00 Resp 16 04/10/20 07:00 BP 90/53 04/10/20 11:49 Pulse Ox 92 L 04/10/20 07:00 Intake & Output 04/09/20 04/10/20 04/10/20 18:59 06:59 18:59 Intake Total 300 300 236 Balance 300 300 236 Intake: IV 200 Intake, IV Titration 100 Amount Valproate Sodium 250 mg 100 In Sodium Chloride 0.9% 100 ml @ 100 mls/hr IVPB Q8H [facility] Rx#:[id number] Oral 300 236 Other: Voiding Method Diaper Diaper Diaper Incontinent Incontinent Incontinent # Voids 3 # Bowel Movements 1 - Exam In general patient is alert, responsive, in no distress HEENT head normocephalic and atraumatic Neck is supple no JVD no goiter no lymphadenopathy Chest exam reveals a few scattered crackles no wheezing Cardiac exam reveals regular heart sounds no gallops no murmurs Abdomen is soft nontender no organomegaly was normal bowel sounds Extremity exam reveals no edema no cyanosis or clubbing Neurological examination patient is alert responsive answering questions appropriately she is moving all 4 extremity spontaneously there is residual spasticity and weakness on the left upper extremity in the left lower extremity - Labs CBC & Chem 7: 04/10/20 11:36 04/09/20 07:21 Labs: Abnormal Lab Results - Last 24 Hours (Table) 04/09/20 04/09/20 04/09/20 Range/Units 07:21 15:12 15:14 RBC (3.80-5.40) m/uL Hgb (11.4-16.0) gm/dL Hct (34.0-46.0) % RDW (11.5-15.5) % Glucose 536 H* (70-110) mg/dL POC Glucose (mg/dL) 425 H 448 H (75-99) mg/dL 04/09/20 04/09/20 04/10/20 Range/Units 16:56 20:23 06:50 RBC (3.80-5.40) m/uL Hgb (11.4-16.0) gm/dL Hct (34.0-46.0) % RDW (11.5-15.5) % Glucose (70-110) mg/dL POC Glucose (mg/dL) 437 H 212 H 517 H (75-99) mg/dL 04/10/20 04/10/20 04/10/20 Range/Units 09:17 11:34 11:36 RBC 2.51 L (3.80-5.40) m/uL Hgb 8.0 L (11.4-16.0) gm/dL Hct 24.9 L (34.0-46.0) % RDW 16.1 H (11.5-15.5) % Glucose (70-110) mg/dL POC Glucose (mg/dL) 388 H 297 H (75-99) mg/dL Microbiology - Last 24 Hours (Table) 04/05/20 11:14 Blood Culture - Preliminary Blood No Growth after 120 hours Assessment and Plan Plan: 1. Mental status changes likely related to recurrent seizure activity due to missing antiseizure medications due to vomiting. Patient was evaluated by neurology services continue current home seizure medication doses. Cleared by neurology. Resolved 2. Previous history of stroke in 2014, no evidence of stroke at this time. 3. Underlying history of insulin-dependent diabetes mellitus, type I maintained on insulin, with previous multiple admissions with DKA 4. Underlying history of gastroparesis, maintained on Reglan 5. History of psychosis maintained on Seroquel 6. Underlying history of hypertension 7. Underlying history of hyperlipidemia 8. Previous history of coronary artery disease with myocardial infarction in the past 9. Anemia was significant hemoglobin drop since yesterday. Hemoglobin improving today 8.2 10. Nonbleeding duodenal AVM status post EGD with ablation. Per GI services continue PPI twice a day therapy avoid NSAID use awaiting pathology okay to resume diet
--- NOTE | 2020-04-10 14:10 | P.PN ---
Subjective Progress Note Date: 04/10/20 Principal diagnosis: Iron Deficiency Anemia Patient was seen and examined at the bedside. She was sleeping. She denies any abdominal pain. There is been no reported bowel movement with blood. Objective - Vital Signs Vital signs: Vital Signs Temp 96.9 F L 04/10/20 07:00 Pulse 81 04/10/20 07:00 Resp 16 04/10/20 07:00 BP 90/53 04/10/20 11:49 Pulse Ox 92 L 04/10/20 07:00 Intake & Output 04/09/20 04/10/20 04/10/20 18:59 06:59 18:59 Intake Total 300 300 236 Balance 300 300 236 Intake: IV 200 Intake, IV Titration 100 Amount Valproate Sodium 250 mg 100 In Sodium Chloride 0.9% 100 ml @ 100 mls/hr IVPB Q8H [facility] Rx#:[id number] Oral 300 236 Other: Voiding Method Diaper Diaper Diaper Incontinent Incontinent Incontinent # Voids 3 # Bowel Movements 1 - Exam General appearance: The patient is alert, drowsy, oriented, in no acute distress. HET: Head is normocephalic and atraumatic. Conjunctiva pink. Sclera anicteric. Neck: Supple without lymphadenopathy. Abdomen: Soft, nontender, nondistended with bowel sounds. No guarding or rigidity. Extremities: Normal skin color and turgor. No pedal edema Neurological: No focal deficits. Alert and oriented 3. - Labs CBC & Chem 7: 04/10/20 11:36 04/09/20 07:21 Labs: Abnormal Lab Results - Last 24 Hours (Table) 04/09/20 04/09/20 04/09/20 Range/Units 07:21 15:12 15:14 RBC (3.80-5.40) m/uL Hgb (11.4-16.0) gm/dL Hct (34.0-46.0) % RDW (11.5-15.5) % Glucose 536 H* (70-110) mg/dL POC Glucose (mg/dL) 425 H 448 H (75-99) mg/dL 04/09/20 04/09/20 04/10/20 Range/Units 16:56 20:23 06:50 RBC (3.80-5.40) m/uL Hgb (11.4-16.0) gm/dL Hct (34.0-46.0) % RDW (11.5-15.5) % Glucose (70-110) mg/dL POC Glucose (mg/dL) 437 H 212 H 517 H (75-99) mg/dL 04/10/20 04/10/20 04/10/20 Range/Units 09:17 11:34 11:36 RBC 2.51 L (3.80-5.40) m/uL Hgb 8.0 L (11.4-16.0) gm/dL Hct 24.9 L (34.0-46.0) % RDW 16.1 H (11.5-15.5) % Glucose (70-110) mg/dL POC Glucose (mg/dL) 388 H 297 H (75-99) mg/dL Microbiology - Last 24 Hours (Table) 04/05/20 11:14 Blood Culture - Preliminary Blood No Growth after 120 hours Assessment and Plan (1) Iron deficiency anemia Narrative/Plan: Is is a 59-year-old female with multiple medical comorbidities who presented to the hospital due to altered mental status secondary to seizure. Patient found to be anemic which was also noted on prior hospitalization. Previous iron studies consistent with iron deficiency anemia and patient is on iron supplementation. She denies any signs or symptoms of GI bleeding, she does report a remote striatum endoscopic evaluation approximately 8 or 9 years ago with EGD and colonoscopy. Macrocytic indices anemia likely multifactorial given multiple medical comorbidities cannot rule out a component of GI blood loss but no overt signs or symptoms at this time with negative stool testing for occult blood. 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 Current Visit: Yes Status: Acute Code(s): D50.9 - IRON DEFICIENCY ANEMIA, UNSPECIFIED SNOMED Code(s): 50428226 Plan: Supportive care Continue Protonix therapy Continue to monitor hemoglobin and hematocrit and transfuse as needed Continue to monitor for signs or symptoms of GI blood loss Okay for regular diet The patient is status post EGD, colonoscopy was not completed due to failure for bowel prep Thank you for allowing us to participate in the care of the patient we will be on standby. If any further needs please don't hesitate to call us back. The impression and plan of care has been dictated as directed. I performed a history and examination of this patient, discussed the same with the dictator. I agree with the dictator's note ,documented as a scribe. Any additional findings or plans will be noted.
[2020-04-10 16:47] LABS: Glucose,Whole Blood 99 mg/dL (75-99)
--- NOTE | 2020-04-10 17:41 | P.PN ---
Subjective Progress Note Date: 04/09/20 Melva Jackson, is a 59-year-old female who presented to [facility] emergency room with a chief complaint of mental status changes with worsening somnolence and episodes of vomiting, she was evaluated in the emergency room, vital examination on presentation reveals a temperature of 97.9 pulse 85 respiration 18 blood pressure 174/74 pulse ox 93% on room air, white blood count was 10.1 hemoglobin 9.9 platelet count 196 sodium 136 BUN 21 creatinine 1.12 glucose 113 lactic acid 1.2 urine analysis revealed trace leukocyte esterase with moderate bacteria, chest x-ray revealed no acute pul monary process, computed tomography scan of the brain revealed no evidence of acute intracranial hemorrhage or midline shift there was a large area of old encephalomalacic of the right anterior cerebral hemisphere related to previous stroke. Patient was admitted to telemetry floor neurology consultation was requested due to concern of a recurrent stroke. Patient has a known history of insulin-dependent diabetes mellitus type 1 history of hypertension, history of hyperlipidemia, history of seizure disorder, history of asthma, and history of psychosis. On 04/07/2020 patient is alert and oriented resting in bed patient does appear restless. CT of abdomen and pelvis has been ordered due to nausea and vomiting. Hemoglobin 8.2. GI and neurology services are following. Patient denies any chest pain or shortness of breath. Does have appetite requesting food. on 04/08/2020 patient was seen and examined on the medical floor she is alert confused and occasionally agitated she received a dose of Haldol earlier today her hemoglobin is down and gastroenterology planning EGD and colonoscopy michelle further review of system was possible today. On 04/09/2020 agent was seen and examined on the medical floor she is alert, confused in no apparent distress, there is no fever or chills no headache or dizziness no chest pain no shortness of breath no cough no nausea or vomiting no abdominal pain no agitation today, patient underwent EGD today, she has AVM which was treated she will be given IV iron, sister Sera contacted and multiple medical issues discussed in details over the form. Objective - Vital Signs Vital signs: Vital Signs Temp 99.0 F 04/09/20 15:00 Pulse 109 H 04/09/20 15:00 Resp 20 04/09/20 15:00 BP 114/72 04/09/20 15:00 Pulse Ox 94 L 04/09/20 15:00 Intake & Output 04/08/20 04/09/20 04/09/20 18:59 06:59 18:59 Intake Total 240 100 300 Balance 240 100 300 Intake: IV 200 Intake, IV Titration 100 Amount Valproate Sodium 250 mg 100 In Sodium Chloride 0.9% 100 ml @ 100 mls/hr IVPB Q8H [facility] Rx#:[id number] Oral 240 100 Other: Voiding Method Diaper Diaper Diaper Incontinent Incontinent Incontinent # Voids 3 # Bowel Movements 1 - Exam In general patient is alert, responsive, in no distress HEENT head normocephalic and atraumatic Neck is supple no JVD no goiter no lymphadenopathy Chest exam reveals a few scattered crackles no wheezing Cardiac exam reveals regular heart sounds no gallops no murmurs Abdomen is soft nontender no organomegaly was normal bowel sounds Extremity exam reveals no edema no cyanosis or clubbing Neurological examination patient is alert responsive answering questions appropriately she is moving all 4 extremity spontaneously there is residual spasticity and weakness on the left upper extremity in the left lower extremity - Labs CBC & Chem 7: 04/10/20 11:36 04/09/20 07:21 Labs: Abnormal Lab Results - Last 24 Hours (Table) 04/08/20 04/09/20 04/09/20 Range/Units 21:17 06:45 06:46 RBC (3.80-5.40) m/uL Hgb (11.4-16.0) gm/dL Hct (34.0-46.0) % MCV (80.0-100.0) fL MCHC (31.0-37.0) g/dL RDW (11.5-15.5) % Anion Gap (4.00-12.00) mmol/L Est GFR (CKD-EPI)AfAm (60.0-200.0) Est GFR (CKD-EPI)NonAf (60.0-200.0) Glucose (70-110) mg/dL POC Glucose (mg/dL) 164 H 513 H 484 H (75-99) mg/dL 04/09/20 04/09/20 04/09/20 Range/Units 07:09 07:21 07:21 RBC 2.81 L (3.80-5.40) m/uL Hgb 8.8 L (11.4-16.0) gm/dL Hct 28.8 L (34.0-46.0) % MCV 102.6 H (80.0-100.0) fL MCHC 30.7 L (31.0-37.0) g/dL RDW 15.9 H (11.5-15.5) % Anion Gap 12.60 H (4.00-12.00) mmol/L Est GFR (CKD-EPI)AfAm 57.3 L (60.0-200.0) Est GFR (CKD-EPI)NonAf 49.4 L (60.0-200.0) Glucose 536 H* (70-110) mg/dL POC Glucose (mg/dL) 498 H (75-99) mg/dL 04/09/20 04/09/20 04/09/20 Range/Units 07:59 09:01 11:13 RBC (3.80-5.40) m/uL Hgb (11.4-16.0) gm/dL Hct (34.0-46.0) % MCV (80.0-100.0) fL MCHC (31.0-37.0) g/dL RDW (11.5-15.5) % Anion Gap (4.00-12.00) mmol/L Est GFR (CKD-EPI)AfAm (60.0-200.0) Est GFR (CKD-EPI)NonAf (60.0-200.0) Glucose (70-110) mg/dL POC Glucose (mg/dL) 543 H 385 H 250 H (75-99) mg/dL 04/09/20 04/09/20 04/09/20 Range/Units 15:12 15:14 16:56 RBC (3.80-5.40) m/uL Hgb (11.4-16.0) gm/dL Hct (34.0-46.0) % MCV (80.0-100.0) fL MCHC (31.0-37.0) g/dL RDW (11.5-15.5) % Anion Gap (4.00-12.00) mmol/L Est GFR (CKD-EPI)AfAm (60.0-200.0) Est GFR (CKD-EPI)NonAf (60.0-200.0) Glucose (70-110) mg/dL POC Glucose (mg/dL) 425 H 448 H 437 H (75-99) mg/dL Microbiology - Last 24 Hours (Table) 04/05/20 11:14 Blood Culture - Preliminary Blood No Growth after 96 hours Assessment and Plan Plan: 1. Mental status changes likely related to recurrent seizure activity due to m issing antiseizure medications due to vomiting 2. Previous history of stroke in 2014, no evidence of stroke at this time. 3. Underlying history of insulin-dependent diabetes mellitus, type I maintained on insulin, with previous multiple admissions with DKA 4. Underlying history of gastroparesis, maintained on Reglan 5. History of psychosis maintained on Seroquel 6. Underlying history of hypertension 7. Underlying history of hyperlipidemia 8. Previous history of coronary artery disease with myocardial infarction in the past 9. Anemia was significant hemoglobin drop since yesterday. Hemoglobin improving today 8.2 At this time patient is admitted to medical floor, she was seen by neurology and was given IV antiseizure medications Mental status improved significantly today GI services following possible plans for scope CT of abdomen and pelvis ordered Will give IV iron and monitor closely
[2020-04-10 20:14] LABS: Glucose,Whole Blood 332 mg/dL (75-99)
[2020-04-10] MEDS: QUEtiapine 50 MG TAB PO SCH (20:25)
[2020-04-10] MEDS: LORazepam 1 MG TAB PO PRN (20:43)
[2020-04-10] MEDS: ALPRAZolam 0.5 MG TAB PO PRN (23:36)
[2020-04-11] MEDS: SODIUM CHLORIDE 0.9% 1,000 ML IV SCH ×2 (04:15→14:09)
[2020-04-11 06:57] LABS: Glucose,Whole Blood 320 mg/dL (75-99)
[2020-04-11] MEDS: INSULIN ASPART (NovoLOG) 100 UNIT/ML VIAL SQ SCH ×4 (07:47→20:47)
[2020-04-11] MEDS: METOCLOPRAMIDE 5 MG TAB PO SCH ×3 (07:47→17:53)
[2020-04-11] MEDS: CALCIUM CARB-VIT D 500MG-200UN 1 EACH TAB PO SCH ×2 (07:47→17:53)
[2020-04-11] MEDS: ASPIRIN 81 MG PO SCH (08:11)
[2020-04-11] MEDS: LACOSAMIDE 150 MG TABLET PO SCH ×2 (08:11→20:47)
[2020-04-11] MEDS: DIVALPROEX 250 MG TABLET.DR PO SCH ×3 (08:11→20:50)
[2020-04-11] MEDS: LOSARTAN 50 MG TAB PO SCH (08:11)
[2020-04-11] MEDS: METOPROLOL TARTRATE 12.5 MG TAB PO SCH ×2 (08:11→20:53)
[2020-04-11] MEDS: ASCORBIC ACID 500 MG TAB PO SCH (08:11)
[2020-04-11] MEDS: QUEtiapine 25 MG TAB PO SCH (08:11)
[2020-04-11] MEDS: ATORVASTATIN 20 MG TAB PO SCH (08:11)
[2020-04-11] MEDS: PANTOPRAZOLE 40 MG/10 ML VIAL IVP SCH (08:12)
[2020-04-11 10:29] LABS: Glucose,Whole Blood 317 mg/dL (75-99)
[2020-04-11] MEDS: DULoxetine HCL 30 MG CAPSULE.DR PO SCH (10:31)
[2020-04-11] MEDS: SODIUM FERRIC GLUCONAT-SUCROSE 125 MG in SODIUM CHLORIDE 0.9% 100 ML IVPB SCH (10:39)
[2020-04-11 11:11] LABS: Glucose,Whole Blood 233 mg/dL (75-99)
[2020-04-11 11:40] LABS: Glucose,Whole Blood 219 mg/dL (75-99)
[2020-04-11 11:48] LABS: ALT 19 U/L (4-34); AST 35 U/L (14-36); African American GFR (CKD) 77 (>60 ml/min/1.73 sqM); Albumin 2.5 g/dL (3.5-5.0); Albumin/Globulin Ratio 0.8; Alkaline Phosphatase 62 U/L (38-126); Anion Gap -2 mmol/L; Blood Urea Nitrogen 19 mg/dL (7-17); Calcium 8.4 mg/dL (8.4-10.2); Carbon Dioxide 33 mmol/L (22-30); Chloride 107 mmol/L (98-107); Globulin 3.1 g/dL; Glucose 279 mg/dL (74-99); Non-African American GFR(CKD) 67 (>60 ml/min/1.73 sqM); Sodium 138 mmol/L (137-145); Total Bilirubin 0.3 mg/dL (0.2-1.3); Total Protein 5.6 g/dL (6.3-8.2)
[2020-04-11] MEDS ORDERED: SODIUM CHLORIDE 0.9% 500 ML 500 ML IV ONE (11:54)
[2020-04-11 11:57] LABS: ABG Base Excess 4.7 mmol/L; ABG HCO3 30 mmol/L (21-25); ABG Oxygen Saturation 97.1 % (94-97); ABG PCO2 49 mmHg (35-45); ABG PH 7.39 (7.35-7.45); ABG PO2 84 mmHg (83-108); ABG TCO2 31 mmol/L (19-24); Allen Test Performed? Yes
[2020-04-11 12:02] LABS: Anisocytosis Slight; Basophils % (A) 1 %; Eosinophils # (A) 0.1 k/uL (0-0.7); Eosinophils % (A) 1 %; HCT 26.8 % (34.0-46.0); HGB 8.5 gm/dL (11.4-16.0); Lymphocytes # (A) 2.2 k/uL (1.0-4.8); Lymphocytes % (A) 45 %; MCHC 31.5 g/dL (31.0-37.0); MCV 98.5 fL (80.0-100.0); Macrocytosis Slight; Monocytes # (A) 0.3 k/uL (0-1.0); Monocytes % (A) 6 %; Neutrophils # (A) 2.3 k/uL (1.3-7.7); Neutrophils % (A) 47 %; Platelet Count 195 k/uL (150-450); RBC 2.73 m/uL (3.80-5.40); RDW 16.3 % (11.5-15.5); WBC 4.8 k/uL (3.8-10.6)
[2020-04-11] MEDS ORDERED: SODIUM CHLORIDE 0.9% 1,000 ML IV ONE (12:04)
--- NOTE | 2020-04-11 13:21 | P.PN ---
Subjective Progress Note Date: 04/11/20 Patient was seen for a follow-up. Rapid response team activated, patient appears more somnolent. No seizure activity witnessed. EGD showed antral gastritis, nonbleeding duodenal AVM. No further seizures reported since yesterday. Objective - Vital Signs Vital signs: Vital Signs Temp 96.1 F L 04/11/20 13:06 Pulse 56 L 04/11/20 13:06 Resp 16 04/11/20 13:06 BP 117/58 04/11/20 13:06 Pulse Ox 99 04/11/20 13:06 Intake & Output 04/10/20 04/11/20 04/11/20 18:59 06:59 18:59 Intake Total 236 Balance 236 Intake: Oral 236 Other: Voiding Method Diaper Diaper Diaper Incontinent Incontinent # Voids 1 1 - Exam Patient is very somnolent. Blood sugar checked was 219. Rapid response team working with the patient. No seizures reported since in the hospital. Continues to have left spastic hemiparesis. - Labs CBC & Chem 7: 04/11/20 11:00 04/11/20 11:00 Labs: Abnormal Lab Results - Last 24 Hours (Table) 04/10/20 04/11/20 04/11/20 Range/Units 20:11 06:55 10:26 RBC (3.80-5.40) m/uL Hgb (11.4-16.0) gm/dL Hct (34.0-46.0) % RDW (11.5-15.5) % ABG pCO2 (35-45) mmHg ABG HCO3 (21-25) mmol/L ABG Total CO2 (19-24) mmol/L ABG O2 Saturation (94-97) % Carbon Dioxide (22-30) mmol/L BUN (7-17) mg/dL Glucose (74-99) mg/dL POC Glucose (mg/dL) 332 H 320 H 317 H (75-99) mg/dL Total Protein (6.3-8.2) g/dL Albumin (3.5-5.0) g/dL 04/11/20 04/11/20 04/11/20 Range/Units 11:00 11:00 11:10 RBC 2.73 L (3.80-5.40) m/uL Hgb 8.5 L (11.4-16.0) gm/dL Hct 26.8 L (34.0-46.0) % RDW 16.3 H (11.5-15.5) % ABG pCO2 (35-45) mmHg ABG HCO3 (21-25) mmol/L ABG Total CO2 (19-24) mmol/L ABG O2 Saturation (94-97) % Carbon Dioxide 33 H (22-30) mmol/L BUN 19 H (7-17) mg/dL Glucose 279 H (74-99) mg/dL POC Glucose (mg/dL) 233 H (75-99) mg/dL Total Protein 5.6 L (6.3-8.2) g/dL Albumin 2.5 L (3.5-5.0) g/dL 04/11/20 04/11/20 Range/Units 11:37 11:54 RBC (3.80-5.40) m/uL Hgb (11.4-16.0) gm/dL Hct (34.0-46.0) % RDW (11.5-15.5) % ABG pCO2 49 H (35-45) mmHg ABG HCO3 30 H (21-25) mmol/L ABG Total CO2 31 H (19-24) mmol/L ABG O2 Saturation 97.1 H (94-97) % Carbon Dioxide (22-30) mmol/L BUN (7-17) mg/dL Glucose (74-99) mg/dL POC Glucose (mg/dL) 219 H (75-99) mg/dL Total Protein (6.3-8.2) g/dL Albumin (3.5-5.0) g/dL Microbiology - Last 24 Hours (Table) 04/05/20 11:14 Blood Culture - Preliminary Blood No Growth after 120 hours Assessment and Plan Assessment: * Seizure disorder, provoked by lack of antiepileptic medication secondary due to vomiting. * History of CVA with spastic left hemiplegia * Cognitive deficits due to CVA. * History of diabetes, with history of hypoglycemic episodes as well as DKA, suggestive of brittle diabetes Plan: * Patient is hyporesponsive with blood pressure 69/38. Blood sugar is 219. IM to address hypotension. No seizure witnessed. * Continue patient's home seizure medications. Patient currently on Depakote 250 mg 3 times a day and Vimpat 150 mg twice a day. * Total Depakote level yesterday was 52 (50-100), which is therapeutic. Patient's free Depakote level was 14.9 (4.8-17.3) on 03/06/2020. * Avoid episodes of hypoglycemia. * Discussed with patient's nurse.
[2020-04-11 17:02] LABS: Glucose,Whole Blood 211 mg/dL (75-99)
--- NOTE | 2020-04-11 18:28 | P.PN ---
Subjective Progress Note Date: 04/11/20 Melva Jackson, is a 59-year-old female who presented to [facility] emergency room with a chief complaint of mental status changes with worsening somnolence and episodes of vomiting, she was evaluated in the emergency room, vital examination on presentation reveals a temperature of 97.9 pulse 85 respiration 18 blood pressure 174/74 pulse ox 93% on room air, white blood count was 10.1 hemoglobin 9.9 platelet count 196 sodium 136 BUN 21 creatinine 1.12 glucose 113 lactic acid 1.2 urine analysis revealed trace leukocyte esterase with moderate bacteria, chest x-ray revealed no acute pul monary process, computed tomography scan of the brain revealed no evidence of acute intracranial hemorrhage or midline shift there was a large area of old encephalomalacic of the right anterior cerebral hemisphere related to previous stroke. Patient was admitted to telemetry floor neurology consultation was requested due to concern of a recurrent stroke. Patient has a known history of insulin-dependent diabetes mellitus type 1 history of hypertension, history of hyperlipidemia, history of seizure disorder, history of asthma, and history of psychosis. On 04/07/2020 patient is alert and oriented resting in bed patient does appear restless. CT of abdomen and pelvis has been ordered due to nausea and vomiting. Hemoglobin 8.2. GI and neurology services are following. Patient denies any chest pain or shortness of breath. Does have appetite requesting food. on 04/08/2020 patient was seen and examined on the medical floor she is alert confused and occasionally agitated she received a dose of Haldol earlier today her hemoglobin is down and gastroenterology planning EGD and colonoscopy michelle further review of system was possible today. On 04/09/2020 agent was seen and examined on the medical floor she is alert, confused in no apparent distress, there is no fever or chills no headache or dizziness no chest pain no shortness of breath no cough no nausea or vomiting no abdominal pain no agitation today, patient underwent EGD today, she has AVM which was treated she will be given IV iron, sister Sera contacted and multiple medical issues discussed in details over the form. On 04/10/2020 patient is currently sleepy will wake up to follow commands but falls back to sleep clinic DC Haldol and continue to monitor for 24 hours possible discharge tomorrow On 04/11/2020 patient was seen and examined on the medical floor she was somnolent, she had low blood pressure she was given a fluid bolus, at this point Ativan and Xanax were discontinued Haldol was discontinued yesterday will continue was Seroquel only and order Ativan as needed if patient gets agitated patient improved significantly with IV fluid bolus blood pressure is back to normal range. Objective - Vital Signs Vital signs: Vital Signs Temp 96.1 F L 04/11/20 13:06 Pulse 56 L 04/11/20 13:06 Resp 16 04/11/20 13:06 BP 117/58 04/11/20 13:06 Pulse Ox 99 04/11/20 13:06 Intake & Output 04/10/20 04/11/20 04/11/20 18:59 06:59 18:59 Intake Total 236 Balance 236 Intake: Oral 236 Other: Voiding Method Diaper Diaper Diaper Incontinent Incontinent # Voids 1 1 - Exam In general patient is alert, responsive, in no distress HEENT head normocephalic and atraumatic Neck is supple no JVD no goiter no lymphadenopathy Chest exam reveals a few scattered crackles no wheezing Cardiac exam reveals regular heart sounds no gallops no murmurs Abdomen is soft nontender no organomegaly was normal bowel sounds Extremity exam reveals no edema no cyanosis or clubbing Neurological examination patient is alert responsive answering questions appropriately she is moving all 4 extremity spontaneously there is residual spasticity and weakness on the left upper extremity in the left lower extremity - Labs CBC & Chem 7: 04/11/20 11:00 04/11/20 11:00 Labs: Abnormal Lab Results - Last 24 Hours (Table) 04/10/20 04/11/20 04/11/20 Range/Units 20:11 06:55 10:26 RBC (3.80-5.40) m/uL Hgb (11.4-16.0) gm/dL Hct (34.0-46.0) % RDW (11.5-15.5) % ABG pCO2 (35-45) mmHg ABG HCO3 (21-25) mmol/L ABG Total CO2 (19-24) mmol/L ABG O2 Saturation (94-97) % Carbon Dioxide (22-30) mmol/L BUN (7-17) mg/dL Glucose (74-99) mg/dL POC Glucose (mg/dL) 332 H 320 H 317 H (75-99) mg/dL Total Protein (6.3-8.2) g/dL Albumin (3.5-5.0) g/dL 04/11/20 04/11/20 04/11/20 Range/Units 11:00 11:00 11:10 RBC 2.73 L (3.80-5.40) m/uL Hgb 8.5 L (11.4-16.0) gm/dL Hct 26.8 L (34.0-46.0) % RDW 16.3 H (11.5-15.5) % ABG pCO2 (35-45) mmHg ABG HCO3 (21-25) mmol/L ABG Total CO2 (19-24) mmol/L ABG O2 Saturation (94-97) % Carbon Dioxide 33 H (22-30) mmol/L BUN 19 H (7-17) mg/dL Glucose 279 H (74-99) mg/dL POC Glucose (mg/dL) 233 H (75-99) mg/dL Total Protein 5.6 L (6.3-8.2) g/dL Albumin 2.5 L (3.5-5.0) g/dL 04/11/20 04/11/20 Range/Units 11:37 11:54 RBC (3.80-5.40) m/uL Hgb (11.4-16.0) gm/dL Hct (34.0-46.0) % RDW (11.5-15.5) % ABG pCO2 49 H (35-45) mmHg ABG HCO3 30 H (21-25) mmol/L ABG Total CO2 31 H (19-24) mmol/L ABG O2 Saturation 97.1 H (94-97) % Carbon Dioxide (22-30) mmol/L BUN (7-17) mg/dL Glucose (74-99) mg/dL POC Glucose (mg/dL) 219 H (75-99) mg/dL Total Protein (6.3-8.2) g/dL Albumin (3.5-5.0) g/dL Microbiology - Last 24 Hours (Table) 04/05/20 11:14 Blood Culture - Preliminary Blood No Growth after 120 hours Assessment and Plan Plan: 1. Mental status changes likely related to recurrent seizure activity due to missing antiseizure medications due to vomiting 2. Previous history of stroke in 2015, no evidence of stroke at this time. 3. Underlying history of insulin-dependent diabetes mellitus, type I maintained on insulin, with previous multiple admissions with DKA 4. Underlying history of gastroparesis, maintained on Reglan 5. History of psychosis maintained on Seroquel 6. Underlying history of hypertension 7. Underlying history of hyperlipidemia 8. Previous history of coronary artery disease with myocardial infarction in the past 9. Anemia was significant hemoglobin drop since yesterday. Hemoglobin improving today 8.2 At this time patient is admitted to medical floor, she was seen by neurology and was given IV antiseizure medications Mental status improved significantly today GI services following possible plans for scope CT of abdomen and pelvis ordered Will give IV iron and monitor closely
[2020-04-11 20:35] LABS: Glucose,Whole Blood 259 mg/dL (75-99)
[2020-04-11] MEDS: PANTOPRAZOLE 40 MG TABLET PO SCH (20:50)
[2020-04-11] MEDS: QUEtiapine 50 MG TAB PO SCH (20:50)
[2020-04-11] MEDS: HYDROcodone/APAP 10-325MG 1 EACH TAB PO PRN (23:23)
[2020-04-12] MEDS: SODIUM CHLORIDE 0.9% 1,000 ML IV SCH ×2 (06:20→19:47)
[2020-04-12 07:12] LABS: Glucose,Whole Blood 441 mg/dL (75-99)
[2020-04-12] MEDS: HYDROcodone/APAP 10-325MG 1 EACH TAB PO PRN ×2 (07:49→17:23)
[2020-04-12] MEDS: CALCIUM CARB-VIT D 500MG-200UN 1 EACH TAB PO SCH ×2 (07:49→17:24)
[2020-04-12] MEDS: METOCLOPRAMIDE 5 MG TAB PO SCH ×3 (07:50→17:25)
[2020-04-12] MEDS: INSULIN ASPART (NovoLOG) 100 UNIT/ML VIAL SQ SCH ×4 (07:57→21:58)
[2020-04-12] MEDS: ATORVASTATIN 20 MG TAB PO SCH (09:47)
[2020-04-12] MEDS: DIVALPROEX 250 MG TABLET.DR PO SCH ×3 (09:47→21:57)
[2020-04-12] MEDS: ASPIRIN 81 MG PO SCH (09:47)
[2020-04-12] MEDS: ASCORBIC ACID 500 MG TAB PO SCH (09:47)
[2020-04-12] MEDS: METOPROLOL TARTRATE 12.5 MG TAB PO SCH ×2 (09:48→21:57)
[2020-04-12] MEDS: LACOSAMIDE 150 MG TABLET PO SCH ×2 (09:48→21:57)
[2020-04-12] MEDS: LOSARTAN 50 MG TAB PO SCH (09:48)
[2020-04-12] MEDS: DULoxetine HCL 30 MG CAPSULE.DR PO SCH (09:48)
[2020-04-12] MEDS: QUEtiapine 25 MG TAB PO SCH (09:49)
[2020-04-12] MEDS: PANTOPRAZOLE 40 MG TABLET PO SCH ×2 (09:49→21:57)
[2020-04-12] MEDS: SODIUM FERRIC GLUCONAT-SUCROSE 125 MG in SODIUM CHLORIDE 0.9% 100 ML IVPB SCH (09:49)
[2020-04-12 09:55] LABS: Glucose,Whole Blood 405 mg/dL (75-99)
--- NOTE | 2020-04-12 12:00 | P.PN ---
Subjective Progress Note Date: 04/12/20 Melva Jackson, is a 59-year-old female who presented to [facility] emergency room with a chief complaint of mental status changes with worsening somnolence and episodes of vomiting, she was evaluated in the emergency room, vital examination on presentation reveals a temperature of 97.9 pulse 85 respiration 18 blood pressure 174/74 pulse ox 93% on room air, white blood count was 10.1 hemoglobin 9.9 platelet count 196 sodium 136 BUN 21 creatinine 1.12 glucose 113 lactic acid 1.2 urine analysis revealed trace leukocyte esterase with moderate bacteria, chest x-ray revealed no acute pul monary process, computed tomography scan of the brain revealed no evidence of acute intracranial hemorrhage or midline shift there was a large area of old encephalomalacic of the right anterior cerebral hemisphere related to previous stroke. Patient was admitted to telemetry floor neurology consultation was requested due to concern of a recurrent stroke. Patient has a known history of insulin-dependent diabetes mellitus type 1 history of hypertension, history of hyperlipidemia, history of seizure disorder, history of asthma, and history of psychosis. On 04/07/2020 patient is alert and oriented resting in bed patient does appear restless. CT of abdomen and pelvis has been ordered due to nausea and vomiting. Hemoglobin 8.2. GI and neurology services are following. Patient denies any chest pain or shortness of breath. Does have appetite requesting food. on 04/08/2020 patient was seen and examined on the medical floor she is alert confused and occasionally agitated she received a dose of Haldol earlier today her hemoglobin is down and gastroenterology planning EGD and colonoscopy michelle further review of system was possible today. On 04/09/2020 agent was seen and examined on the medical floor she is alert, confused in no apparent distress, there is no fever or chills no headache or dizziness no chest pain no shortness of breath no cough no nausea or vomiting no abdominal pain no agitation today, patient underwent EGD today, she has AVM which was treated she will be given IV iron, sister Sera contacted and multiple medical issues discussed in details over the form. On 04/10/2020 patient is currently sleepy will wake up to follow commands but falls back to sleep clinic DC Haldol and continue to monitor for 24 hours possible discharge tomorrow On 04/11/2020 patient was seen and examined on the medical floor she was somnolent, she had low blood pressure she was given a fluid bolus, at this point Ativan and Xanax were discontinued Haldol was discontinued yesterday will continue was Seroquel only and order Ativan as needed if patient gets agitated patient improved significantly with IV fluid bolus blood pressure is back to normal range. On 04/12/2020 patient remains sleepy but per nursing staff has been up and awake. Patient did have elevated temperatures throughout night 100.7. Dr. Chapa has been consulted for wound on leg. Repeat urinary analysis has been ordered. Patient did have episode of hypotension this has resolved. Patient denies any chest pain or shortness breath. Patient denies nausea vomiting or diarrhea. Patient denies any urinary burning or frequency Objective - Vital Signs Vital signs: Vital Signs Temp 98.4 F 04/12/20 06:48 Pulse 93 04/11/20 19:17 Resp 17 04/12/20 06:48 BP 129/75 04/12/20 06:48 Pulse Ox 96 04/12/20 06:48 Intake & Output 04/11/20 04/12/20 04/12/20 18:59 06:59 18:59 Other: Voiding Method Diaper Diaper Diaper # Voids 1 3 - Exam In general patient is alert, responsive, in no distress HEENT head normocephalic and atraumatic Neck is supple no JVD no goiter no lymphadenopathy Chest exam reveals a few scattered crackles no wheezing Cardiac exam reveals regular heart sounds no gallops no murmurs Abdomen is soft nontender no organomegaly was normal bowel sounds Extremity exam reveals no edema no cyanosis or clubbing Neurological examination patient is alert responsive answering questions appropriately she is moving all 4 extremity spontaneously there is residual spasticity and weakness on the left upper extremity in the left lower extremity - Labs CBC & Chem 7: 04/11/20 11:00 04/11/20 11:00 Labs: Abnormal Lab Results - Last 24 Hours (Table) 04/11/20 04/11/20 04/11/20 Range/Units 11:00 11:54 17:00 RBC 2.73 L (3.80-5.40) m/uL Hgb 8.5 L (11.4-16.0) gm/dL Hct 26.8 L (34.0-46.0) % RDW 16.3 H (11.5-15.5) % ABG pCO2 49 H (35-45) mmHg ABG HCO3 30 H (21-25) mmol/L ABG Total CO2 31 H (19-24) mmol/L ABG O2 Saturation 97.1 H (94-97) % POC Glucose (mg/dL) 211 H (75-99) mg/dL 04/11/20 04/12/20 04/12/20 Range/Units 20:33 07:00 09:54 RBC (3.80-5.40) m/uL Hgb (11.4-16.0) gm/dL Hct (34.0-46.0) % RDW (11.5-15.5) % ABG pCO2 (35-45) mmHg ABG HCO3 (21-25) mmol/L ABG Total CO2 (19-24) mmol/L ABG O2 Saturation (94-97) % POC Glucose (mg/dL) 259 H 441 H 405 H (75-99) mg/dL Microbiology - Last 24 Hours (Table) 04/05/20 11:14 Blood Culture - Final Blood No Growth after 144 hours Assessment and Plan Plan: 1. Mental status changes likely related to recurrent seizure activity due to missing antiseizure medications due to vomiting. Resolved 2. Previous history of stroke in 2014, no evidence of stroke at this time. 3. Underlying history of insulin-dependent diabetes mellitus, type I maintained on insulin, with previous multiple admissions with DKA 4. Underlying history of gastroparesis, maintained on Reglan 5. History of psychosis maintained on Seroquel 6. Underlying history of hypertension 7. Underlying history of hyperlipidemia 8. Previous history of coronary artery disease with myocardial infarction in the past 9. Anemia was significant hemoglobin drop since yesterday. Hemoglobin improving today 8.2 10. Febrile. Urinary analysis ordered. Dr. Chapa consulted 11. Wound to leg. Dr. Chapa consulted 12. Hypotension. Patient did receive fluids has resolved At this time patient is admitted to medical floor, she was seen by neurology and was given IV antiseizure medications
[2020-04-12 12:05] LABS: Glucose,Whole Blood 388 mg/dL (75-99)
[2020-04-12 12:19] LABS: Basophils % (A) 0 %; Eosinophils % (A) 0 %; HCT 23.5 % (34.0-46.0); HGB 7.3 gm/dL (11.4-16.0); Hypochromasia Moderate; Lymphocytes # (A) 1.5 k/uL (1.0-4.8); Lymphocytes % (A) 21 %; MCH 31.5 pg (25.0-35.0); MCV 101.6 fL (80.0-100.0); Macrocytosis Slight; Mean Platelet Volume 7.8; Monocytes # (A) 0.5 k/uL (0-1.0); Monocytes % (A) 7 %; Neutrophils % (A) 71 %; Platelet Count 223 k/uL (150-450); RBC 2.31 m/uL (3.80-5.40); RDW 15.8 % (11.5-15.5); WBC 7.1 k/uL (3.8-10.6)
[2020-04-12 12:40] LABS: Appearance,Urine Clear (Clear); Bilirubin,Urine Negative (Negative); Blood,Urine Trace (Negative); Color,Urine Light Yellow; Glucose,Urine (UA) 4+ (Negative); Leukocyte Esterase,Urine Negative (Negative); Nitrite,Urine Negative (Negative); PH, Urine 5.5 (5.0-8.0); Protein,Urine Negative (Negative); RBC,Urine 1 /hpf (0-5); Specific Gravity,Urine 1.016 (1.001-1.035); Urobilinogen,Urine <2.0 mg/dL (<2.0); WBC,Urine 2 /hpf (0-5)
[2020-04-12 13:25] LABS: Ketones,Urine 3+ (Negative)
--- NOTE | 2020-04-12 14:46 | P.PN ---
Subjective Progress Note Date: 04/12/20 Patient was seen for a follow-up. Patient is somnolent. No seizure activity witnessed. EGD showed antral gastritis, nonbleeding duodenal AVM. No further seizures reported since yesterday. Objective - Vital Signs Vital signs: Vital Signs Temp 98.2 F 04/12/20 12:19 Pulse 93 04/11/20 19:17 Resp 17 04/12/20 12:19 BP 109/61 04/12/20 12:19 Pulse Ox 93 L 04/12/20 12:19 Intake & Output 04/11/20 04/12/20 04/12/20 18:59 06:59 18:59 Other: Voiding Method Diaper Diaper Diaper # Voids 1 3 - Exam Patient is very somnolent. Patient does open her eyes to calling her name, but then drifts back to sleep. Patient has left hemiparesis. Patient moves right arm spontaneously. No seizures reported since in the hospital. Continues to have left spastic hemiparesis. - Labs CBC & Chem 7: 04/12/20 11:35 04/11/20 11:00 Labs: Abnormal Lab Results - Last 24 Hours (Table) 04/11/20 04/11/20 04/12/20 Range/Units 17:00 20:33 07:00 RBC (3.80-5.40) m/uL Hgb (11.4-16.0) gm/dL Hct (34.0-46.0) % MCV (80.0-100.0) fL RDW (11.5-15.5) % POC Glucose (mg/dL) 211 H 259 H 441 H (75-99) mg/dL Urine Glucose (UA) (Negative) Urine Ketones (Negative) Urine Blood (Negative) 04/12/20 04/12/20 04/12/20 Range/Units 09:54 11:35 12:00 RBC 2.31 L (3.80-5.40) m/uL Hgb 7.3 L (11.4-16.0) gm/dL Hct 23.5 L (34.0-46.0) % MCV 101.6 H (80.0-100.0) fL RDW 15.8 H (11.5-15.5) % POC Glucose (mg/dL) 405 H (75-99) mg/dL Urine Glucose (UA) 4+ H (Negative) Urine Ketones 3+ H (Negative) Urine Blood Trace H (Negative) 04/12/20 Range/Units 12:03 RBC (3.80-5.40) m/uL Hgb (11.4-16.0) gm/dL Hct (34.0-46.0) % MCV (80.0-100.0) fL RDW (11.5-15.5) % POC Glucose (mg/dL) 388 H (75-99) mg/dL Urine Glucose (UA) (Negative) Urine Ketones (Negative) Urine Blood (Negative) Microbiology - Last 24 Hours (Table) 04/05/20 11:14 Blood Culture - Final Blood No Growth after 144 hours Assessment and Plan Assessment: * Seizure disorder, provoked by lack of antiepileptic medication secondary due to vomiting. * History of CVA with spastic left hemiplegia * Cognitive deficits due to CVA. * History of diabetes, with history of hypoglycemic episodes as well as DKA, suggestive of brittle diabetes Plan: * No seizure witnessed while in the hospital. * Continue patient's home seizure medications. Patient currently on Depakote 250 mg 3 times a day and Vimpat 150 mg twice a day. * Total Depakote level yesterday was 52 (50-100), which is therapeutic. Patient's free Depakote level was 14.9 (4.8-17.3) on 03/06/2020. * Avoid episodes of hypoglycemia/hypotension. * Neurologically stable for discharge, pending medical clearance.
[2020-04-12 15:36] VITALS: BMI 25.4
[2020-04-12 17:03] LABS: Glucose,Whole Blood 120 mg/dL (75-99)
--- NOTE | 2020-04-12 17:14 | XR ---
EXAMINATION TYPE: XR foot complete RT DATE OF EXAM: 04/12/2020 COMPARISON: 01/28/2020 HISTORY: Infection TECHNIQUE: FINDINGS: 3 views of the right foot were obtained. There is amputation deformity of the first and sec ond toes. There is amputation deformity of the fifth toe and most of the fifth metatarsal. There is f racture at the head of the first metatarsal. There is an united fracture at the base of the first met atarsal. The hindfoot appears intact. There is deformity of the second metatarsal head related to non displaced fracture. There is small 7 mm wire foreign body along the proximal phalanx of the fourth toe. IMPRESSION: Multiple fractures. Fragment position not significantly different than old exam. Osteomye litis is not excluded at the fracture sites.
[2020-04-12 20:23] LABS: Glucose,Whole Blood 255 mg/dL (75-99)
[2020-04-12 21:28] LABS: Albumin 2.5 g/dL (3.80-4.90); BUN/Creat Ratio 11.54 Ratio (12.00-20.00); Globulin 2.5 g/dL (1.6-3.3); Non-African American GFR(CKD) 44.9 (60.0-200.0); Potassium 4.2 mmol/L (3.5-5.5); Total Bilirubin 0.2 mg/dL (0.2-1.2)
[2020-04-12] MEDS: QUEtiapine 50 MG TAB PO SCH (21:57)
--- NOTE | 2020-04-12 23:00 | P.CONS ---
History of Present Illness - Reason for Consult Consult date: 04/12/20 Right foot infection Requesting physician: Sherlyn Chen - Chief Complaint Right foot swelling and redness x few days - History of Present Illness Patient is a 59 year female with past medical history significant for CAD and diabetes mellitus history of diabetic foot infection requiring amputation of multiple of her toes and this patient was brought into the ER at [facility] on 04/05/2020 for evaluation of vomiting and lethargy patient subsequently has been admitted to the hospital and is being managed by primary and neurology services, patient was noticed to have right middle finger swollen and red yesterday that prompted this infection this consultation is history of any trauma, and the patient is currently lethargic and sleepy" and unable to provide history so most information has been obtained from review the chart, review of the chart and it shows patient has persistent ingrown staph aureus and staph epidermidis in both the vancomycin SHYANNE of 2 Review of Systems Positive points has been mentioned in HPI complete review could not be obtained because of his underlying mental status Past Medical History Past Medical History: Asthma, Coronary Artery Disease (CAD), Chest Pain / Angina, Heart Failure, COPD, CVA/TIA, Diabetes Mellitus, Deep Vein Thrombosis (DVT), Eye Disorder, GERD/Reflux, Hyperlipidemia, Hypertension, Myocardial Infarction ([place]), Neurologic Disorder, Osteoarthritis (OA), Pneumonia, Renal Disease Additional Past Medical History / Comment(s): IDDM (brittle), DKAs, neuropathy bilateral hands/feet, retinopathy bilateral eyes, cellulitis R foot, R great toe and 2nd toe infections/amputations, current wound R foot-being seen in [facility], renal failure, anemia, CVAs with L sided paralysis, headaches started after CVAs, brain lesions, DVT R axillae, low back pain, varicosities, seizure many years ago (2001), hypothyroid, constipation, bilateral tinnitis occasionally, sinus problems. Last Myocardial Infarction Date:: 2011 History of Any Multi-Drug Resistant Organisms: MRSA Year Discovered:: 09/06/17 MDRO Source:: Right Foot Past Surgical History: Appendectomy, Section, Cholecystectomy, Heart Catheterization With Stent, Hysterectomy, Orthopedic Surgery Additional Past Surgical History / Comment(s): PCI with multiple stents, R great toe and 2nd toe amps, debridements R foot ulcer, L shoulder surgery to remove bone, bronchoscopy, EGD, colonoscopy, R arm port since removed, bilateral cataract removals/lens implants. Past Anesthesia/Blood Transfusion Reactions: No Reported Reaction Additional Past Anesthesia/Blood Transfusion Reaction / Comm: HX OF BLOOD TRANSFUSION- NO REACTION Date of Last Stent Placement:: July 2012 Past Psychological History: Anxiety, Bipolar, Depression Smoking Status: Never smoker Past Alcohol Use History: None Reported Past Drug Use History: Marijuana - Past Family History Father Family Medical History: Unable to Obtain, Coronary Artery Disease (CAD), Diabetes Mellitus Mother Family Medical History: COPD Medications and Allergies Home Medications Medication Instructions Recorded Confirmed Type HYDROcodone/APAP 10-325MG [[place] 1 tab PO TID PRN 10/03/16 04/05/20 History 10-325] Atorvastatin [Lipitor] 20 mg PO DAILY 12/28/18 04/05/20 History Aspirin [Adult Low Dose Aspirin EC] 81 mg PO DAILY 06/09/19 04/05/20 History Ferrous Sulfate [Iron (65 MG 325 mg PO BID 06/09/19 04/05/20 History Elemental)] Divalproex [Depakote] 250 mg PO TID #90 tablet. 08/17/19 04/05/20 Rx Albuterol Sulfate [Ventolin HFA] 2 puff INHALATION RT-Q4H PRN 12/26/19 04/05/20 History Losartan [Cozaar] 50 mg PO DAILY tab 01/18/20 04/05/20 Rx Ascorbic Acid [Vitamin C] 500 mg PO DAILY 01/29/20 04/05/20 History Vitamin B Complex 1 tab PO DAILY 01/29/20 04/05/20 History Clopidogrel [Plavix] 75 mg PO DAILY tab 02/02/20 04/05/20 Rx QUEtiapine [SEROquel] 50 mg PO HS 30 Days #30 tab 03/13/20 04/05/20 Rx ALPRAZolam [Xanax] 0.5 mg PO QID PRN tab 03/26/20 04/05/20 Rx DULoxetine HCL [Cymbalta] 30 mg PO DAILY capsule. 03/26/20 04/05/20 Rx Metoclopramide [Reglan] 5 mg PO AC-TID tab 03/26/20 04/05/20 Rx QUEtiapine [SEROquel] 25 mg PO DAILY tab 03/26/20 04/05/20 Rx Calcium Carb-Vit D 500Mg-200Un 1 tab PO BID-W/MEALS 03/31/20 04/05/20 History [Oscal 500+D] INSULIN LISPRO (humaLOG) [humaLOG] 6 units SQ AC-TID 03/31/20 04/05/20 History Ondansetron Odt [Zofran ODT] 4 mg PO Q8HR PRN 3 Days #9 tab 03/31/20 04/05/20 Rx Insulin Detemir [Levemir Flextouch] 10 units SQ HS 04/05/20 04/05/20 History Lacosamide [Vimpat] 100 mg PO BID 04/05/20 04/05/20 History Metoprolol Tartrate [Lopressor] 12.5 mg PO BID 04/05/20 04/05/20 History Pantoprazole Sodium [Protonix] 40 mg PO BID 30 Days #60 tablet. 04/10/20 Rx Allergies Allergy/AdvReac Type Severity Reaction Status Date / Time Barbiturates Allergy Rash/Hives Verified 03/31/20 10:22 cephalexin monohydrate Allergy Rash/Hives Verified 03/31/20 10:22 [From Keflex] morphine Allergy Rash/Hives Verified 03/31/20 10:22 Penicillins Allergy Rash/Hives Verified 03/31/20 10:22 phenobarbital Allergy Swelling Verified 03/31/20 10:22 venom-honey bee Allergy Swelling Verified 03/31/20 10:22 [bee venom (honey bee)] amlodipine besylate AdvReac Vomiting Verified 03/31/20 10:22 [From Norvasc] Physical Exam Vitals: Vital Signs Temp Pulse Pulse Resp BP BP Pulse Ox 04/12/20 15:00 98.6 F 67 16 92/61 96 04/12/20 12:19 98.2 F 17 109/61 93 L 04/12/20 06:48 98.4 F 17 129/75 96 04/12/20 05:23 99.3 F 04/12/20 03:10 100.7 F H 19 152/77 94 L 04/12/20 00:00 18 04/11/20 19:17 99.1 F 93 19 142/48 99 Intake and Output 11/13/20 11/13/20 11/13/20 06:59 14:59 22:59 Other: Voiding Method Diaper Diaper Diaper # Voids 3 2 Weight 58.967 kg GENERAL DESCRIPTION: Middle-aged female lying in bed, no distress. No tachypnea or accessory muscle of respiration use. HEENT: Shows Pallor , no scleral icterus. Oral mucous membrane is dry. No pharyngeal erythema or thrush NECK: Trachea central, no thyromegaly. LUNGS: Unlabored breathing. Clear to auscultation anteriorly. No wheeze or crackle. HEART: S1, S2, regular rate and rhythm. No loud murmur ABDOMEN: Soft, no tenderness , guarding or rigidity, no organomegaly EXTREMITIES: No edema of feet. Right third toe swollen and red with instability of the joint SKIN: No rash, no masses palpable. NEUROLOGICAL: The patient is lethargic orientation could not be determined Results CBC & Chem 7: 04/12/20 11:35 04/12/20 11:35 Labs: Abnormal Lab Results - Last 24 Hours (Table) 04/11/20 04/11/20 04/12/20 Range/Units 17:00 20:33 07:00 RBC (3.80-5.40) m/uL Hgb (11.4-16.0) gm/dL Hct (34.0-46.0) % MCV (80.0-100.0) fL RDW (11.5-15.5) % POC Glucose (mg/dL) 211 H 259 H 441 H (75-99) mg/dL Urine Glucose (UA) (Negative) Urine Ketones (Negative) Urine Blood (Negative) 04/12/20 04/12/20 04/12/20 Range/Units 09:54 11:35 12:00 RBC 2.31 L (3.80-5.40) m/uL Hgb 7.3 L (11.4-16.0) gm/dL Hct 23.5 L (34.0-46.0) % MCV 101.6 H (80.0-100.0) fL RDW 15.8 H (11.5-15.5) % POC Glucose (mg/dL) 405 H (75-99) mg/dL Urine Glucose (UA) 4+ H (Negative) Urine Ketones 3+ H (Negative) Urine Blood Trace H (Negative) 04/12/20 Range/Units 12:03 RBC (3.80-5.40) m/uL Hgb (11.4-16.0) gm/dL Hct (34.0-46.0) % MCV (80.0-100.0) fL RDW (11.5-15.5) % POC Glucose (mg/dL) 388 H (75-99) mg/dL Urine Glucose (UA) (Negative) Urine Ketones (Negative) Urine Blood (Negative) Microbiology - Last 24 Hours (Table) 04/05/20 11:14 Blood Culture - Final Blood No Growth after 144 hours Assessment and Plan Assessment: 1-patient with right diabetic foot infection involving her right third toe which did shows instability at the joint and concern for underlying osteomyelitis likely from gram-positive skin cherise in this patient has previously grown resistant gram-positive such as staph epi and MRSA in the cultures 2-Patient with multiple antibiotic ALLERGIES that would limit the number of antibiotic safe to use (1) Diabetic infection of right foot Current Visit: Yes Status: Acute Code(s): E11.628 - TYPE 2 DIABETES MELLITUS WITH OTHER SKIN COMPLICATIONS; L08.9 - LOCAL INFECTION OF THE SKIN AND SUBCUTANEOUS TISSUE, UNSP SNOMED Code(s): 58865000 Plan: 1-we will obtain x-rays of the right foot 2-we will check CRP and a sed rate 3-local wound culture 4-empirically start the patient on daptomycin 6 mg per KG daily 5-vascular surgery evaluation as the patient will likely need amputation of the toe We will follow on clinical condition and cultures to further adjust medication if needed Thank you for this consultation will follow this patient with you
[2020-04-12] MEDS: DAPTOmycin 350 MG in SODIUM CHLORIDE 0.9% 50 ML IVPB SCH (23:53)
[2020-04-13] MEDS: HYDROcodone/APAP 10-325MG 1 EACH TAB PO PRN ×3 (03:15→21:17)
[2020-04-13 06:38] LABS: Anisocytosis Slight; Basophils % (A) 0 %; Eosinophils % (A) 1 %; HCT 26.9 % (34.0-46.0); HGB 8.2 gm/dL (11.4-16.0); Hypochromasia Marked; Lymphocytes # (A) 1.5 k/uL (1.0-4.8); Lymphocytes % (A) 17 %; MCH 31.2 pg (25.0-35.0); MCHC 30.6 g/dL (31.0-37.0); Macrocytosis Slight; Mean Platelet Volume 8.3; Monocytes # (A) 0.5 k/uL (0-1.0); Monocytes % (A) 6 %; Neutrophils # (A) 6.6 k/uL (1.3-7.7); Neutrophils % (A) 75 %; Platelet Count 255 k/uL (150-450); RBC 2.64 m/uL (3.80-5.40); RDW 16.2 % (11.5-15.5); WBC 8.8 k/uL (3.8-10.6)
[2020-04-13 07:27] LABS: Glucose,Whole Blood 395 mg/dL (75-99)
[2020-04-13] MEDS: INSULIN ASPART (NovoLOG) 100 UNIT/ML VIAL SQ SCH ×4 (07:45→21:15)
[2020-04-13] MEDS: CALCIUM CARB-VIT D 500MG-200UN 1 EACH TAB PO SCH ×2 (07:45→16:35)
[2020-04-13] MEDS: LOSARTAN 50 MG TAB PO SCH (07:46)
[2020-04-13] MEDS: ASPIRIN 81 MG PO SCH (07:46)
[2020-04-13] MEDS: ASCORBIC ACID 500 MG TAB PO SCH (07:46)
[2020-04-13] MEDS: PANTOPRAZOLE 40 MG TABLET PO SCH ×2 (07:46→21:07)
[2020-04-13] MEDS: QUEtiapine 25 MG TAB PO SCH ×2 (07:46→16:35)
[2020-04-13] MEDS: METOCLOPRAMIDE 5 MG TAB PO SCH ×3 (07:46→16:36)
[2020-04-13] MEDS: METOPROLOL TARTRATE 12.5 MG TAB PO SCH ×2 (07:46→21:08)
[2020-04-13] MEDS: DIVALPROEX 250 MG TABLET.DR PO SCH ×3 (07:47→21:08)
[2020-04-13] MEDS: DULoxetine HCL 30 MG CAPSULE.DR PO SCH (07:47)
[2020-04-13] MEDS: LACOSAMIDE 150 MG TABLET PO SCH ×2 (07:47→21:07)
[2020-04-13 09:37] LABS: Albumin 2.8 g/dL (3.80-4.90); Albumin/Globulin Ratio 1.08 (1.60-3.17); Anion Gap 10.8 mmol/L (4.00-12.00); BUN/Creat Ratio 12.31 Ratio (12.00-20.00); C Reactive Protein 17.7 mg/dL (0.0-0.8); Calcium 8.5 mg/dL (8.7-10.3); Carbon Dioxide 21.2 mmol/L (21.6-31.8); Globulin 2.6 g/dL (1.6-3.3); Non-African American GFR(CKD) 44.9 (60.0-200.0); Potassium 4.7 mmol/L (3.5-5.5); Total Bilirubin 0.1 mg/dL (0.3-1.2); Total Protein 5.4 g/dL (6.2-8.2)
[2020-04-13] MEDS: SODIUM CHLORIDE 0.9% 1,000 ML IV SCH ×2 (09:38→23:44)
[2020-04-13] MEDS: SODIUM FERRIC GLUCONAT-SUCROSE 125 MG in SODIUM CHLORIDE 0.9% 100 ML IVPB SCH (11:04)
[2020-04-13 11:38] LABS: Erythrocyte Sedimentation Rate 77 mm/Hr (0-30)
[2020-04-13 11:39] LABS: Glucose,Whole Blood 222 mg/dL (75-99)
--- NOTE | 2020-04-13 13:38 | P.PN ---
Subjective Progress Note Date: 04/13/20 Melva Jackson, is a 59-year-old female who presented to [facility] emergency room with a chief complaint of mental status changes with worsening somnolence and episodes of vomiting, she was evaluated in the emergency room, vital examination on presentation reveals a temperature of 97.9 pulse 85 respiration 18 blood pressure 174/74 pulse ox 93% on room air, white blood count was 10.1 hemoglobin 9.9 platelet count 196 sodium 136 BUN 21 creatinine 1.12 glucose 113 lactic acid 1.2 urine analysis revealed trace leukocyte esterase with moderate bacteria, chest x-ray revealed no acute pul monary process, computed tomography scan of the brain revealed no evidence of acute intracranial hemorrhage or midline shift there was a large area of old encephalomalacic of the right anterior cerebral hemisphere related to previous stroke. Patient was admitted to telemetry floor neurology consultation was requested due to concern of a recurrent stroke. Patient has a known history of insulin-dependent diabetes mellitus type 1 history of hypertension, history of hyperlipidemia, history of seizure disorder, history of asthma, and history of psychosis. On 04/07/2020 patient is alert and oriented resting in bed patient does appear restless. CT of abdomen and pelvis has been ordered due to nausea and vomiting. Hemoglobin 8.2. GI and neurology services are following. Patient denies any chest pain or shortness of breath. Does have appetite requesting food. on 04/08/2020 patient was seen and examined on the medical floor she is alert confused and occasionally agitated she received a dose of Haldol earlier today her hemoglobin is down and gastroenterology planning EGD and colonoscopy michelle further review of system was possible today. On 04/09/2020 agent was seen and examined on the medical floor she is alert, confused in no apparent distress, there is no fever or chills no headache or dizziness no chest pain no shortness of breath no cough no nausea or vomiting no abdominal pain no agitation today, patient underwent EGD today, she has AVM which was treated she will be given IV iron, sister Sera contacted and multiple medical issues discussed in details over the form. On 04/10/2020 patient is currently sleepy will wake up to follow commands but falls back to sleep clinic DC Haldol and continue to monitor for 24 hours possible discharge tomorrow On 04/11/2020 patient was seen and examined on the medical floor she was somnolent, she had low blood pressure she was given a fluid bolus, at this point Ativan and Xanax were discontinued Haldol was discontinued yesterday will continue was Seroquel only and order Ativan as needed if patient gets agitated patient improved significantly with IV fluid bolus blood pressure is back to normal range. On 04/12/2020 patient remains sleepy but per nursing staff has been up and awake. Patient did have elevated temperatures throughout night 100.7. Dr. Chapa has been consulted for wound on leg. Repeat urinary analysis has been ordered. Patient did have episode of hypotension this has resolved. Patient denies any chest pain or shortness breath. Patient denies nausea vomiting or diarrhea. Patient denies any urinary burning or frequency. On 04/13/2020 patient was seen and examined on the medical floor, she is somn olent, in no apparent distress at this time, her nurse reports that, patient slept well all night, however when she was awake she was screaming, she kept on screaming until she was tired and fell asleep again, patient is accepting her meals and her oral medications in some apple sauce with one on one help. I am unable to do any review of systems at this time. Ativan and Xanax and Haldol were discontinued due to continue was sleeping. At this time will give Seroquel 25 mg in the morning, 25 mg in the early afternoon, and 50 mg at bedtime. Her sister Sear who is the power of attorney general was contacted multiple times during this admission, CODE STATUS was discussed including possibility of hospice care, her sister stated that she will discuss that with patient's children and let us know their decision. Objective - Vital Signs Vital signs: Vital Signs Temp 98.7 F 04/13/20 07:00 Pulse 97 04/13/20 07:00 Resp 18 04/13/20 03:19 BP 143/79 04/13/20 07:00 Pulse Ox 93 L 04/13/20 07:00 Intake & Output 04/12/20 04/13/20 04/13/20 18:59 06:59 18:59 Weight 58.967 kg Other: Voiding Method Diaper Diaper Diaper # Voids 2 0 1 - Exam In general patient is alert, responsive, in no distress HEENT head normocephalic and atraumatic Neck is supple no JVD no goiter no lymphadenopathy Chest exam reveals a few scattered crackles no wheezing Cardiac exam reveals regular heart sounds no gallops no murmurs Abdomen is soft nontender no organomegaly was normal bowel sounds Extremity exam reveals no edema no cyanosis or clubbing Neurological examination patient is alert responsive answering questions appropriately she is moving all 4 extremity spontaneously there is residual spasticity and weakness on the left upper extremity in the left lower extremity - Labs CBC & Chem 7: 04/13/20 05:57 04/13/20 05:57 Labs: Abnormal Lab Results - Last 24 Hours (Table) 04/12/20 04/12/20 04/12/20 Range/Units 11:35 12:00 16:54 RBC (3.80-5.40) m/uL Hgb (11.4-16.0) gm/dL Hct (34.0-46.0) % MCV (80.0-100.0) fL MCHC (31.0-37.0) g/dL RDW (11.5-15.5) % ESR (0-30) mm/Hr Carbon Dioxide (21.6-31.8) mmol/L Est GFR (CKD-EPI)AfAm 52.0 L (60.0-200.0) Est GFR (CKD-EPI)NonAf 44.9 L (60.0-200.0) BUN/Creatinine Ratio 11.54 L (12.00-20.00) Ratio Glucose 400 H (70-110) mg/dL POC Glucose (mg/dL) 120 H (75-99) mg/dL Calcium 8.0 L (8.7-10.3) mg/dL Total Bilirubin (0.3-1.2) mg/dL C-Reactive Protein (0.0-0.8) mg/dL Total Protein 5.0 L (6.2-8.2) g/dL Albumin 2.50 L (3.80-4.90) g/dL Albumin/Globulin Ratio 1.00 L (1.60-3.17) g/dL Urine Glucose (UA) 4+ H (Negative) Urine Ketones 3+ H (Negative) Urine Blood Trace H (Negative) 04/12/20 04/13/20 04/13/20 Range/Units 20:21 05:57 05:57 RBC 2.64 L (3.80-5.40) m/uL Hgb 8.2 L (11.4-16.0) gm/dL Hct 26.9 L (34.0-46.0) % MCV 102.0 H (80.0-100.0) fL MCHC 30.6 L (31.0-37.0) g/dL RDW 16.2 H (11.5-15.5) % ESR 77 H (0-30) mm/Hr Carbon Dioxide 21.2 L (21.6-31.8) mmol/L Est GFR (CKD-EPI)AfAm 52.0 L (60.0-200.0) Est GFR (CKD-EPI)NonAf 44.9 L (60.0-200.0) BUN/Creatinine Ratio (12.00-20.00) Ratio Glucose 335 H (70-110) mg/dL POC Glucose (mg/dL) 255 H (75-99) mg/dL Calcium 8.5 L (8.7-10.3) mg/dL Total Bilirubin 0.1 L (0.3-1.2) mg/dL C-Reactive Protein 17.7 H (0.0-0.8) mg/dL Total Protein 5.4 L (6.2-8.2) g/dL Albumin 2.80 L (3.80-4.90) g/dL Albumin/Globulin Ratio 1.08 L (1.60-3.17) g/dL Urine Glucose (UA) (Negative) Urine Ketones (Negative) Urine Blood (Negative) 04/13/20 04/13/20 Range/Units 07:24 11:37 RBC (3.80-5.40) m/uL Hgb (11.4-16.0) gm/dL Hct (34.0-46.0) % MCV (80.0-100.0) fL MCHC (31.0-37.0) g/dL RDW (11.5-15.5) % ESR (0-30) mm/Hr Carbon Dioxide (21.6-31.8) mmol/L Est GFR (CKD-EPI)AfAm (60.0-200.0) Est GFR (CKD-EPI)NonAf (60.0-200.0) BUN/Creatinine Ratio (12.00-20.00) Ratio Glucose (70-110) mg/dL POC Glucose (mg/dL) 395 H 222 H (75-99) mg/dL Calcium (8.7-10.3) mg/dL Total Bilirubin (0.3-1.2) mg/dL C-Reactive Protein (0.0-0.8) mg/dL Total Protein (6.2-8.2) g/dL Albumin (3.80-4.90) g/dL Albumin/Globulin Ratio (1.60-3.17) g/dL Urine Glucose (UA) (Negative) Urine Ketones (Negative) Urine Blood (Negative) Microbiology - Last 24 Hours (Table) 04/12/20 13:20 Gram Stain - Preliminary Toe - Left Third Wound Culture - Preliminary Presumptive Staph aureus 04/12/20 13:20 Anaerobic Culture - Preliminary Toe - Left Third Assessment and Plan Plan: 1. Mental status changes likely related to recurrent seizure activity due to missing antiseizure medications due to vomiting. Resolved 2. Previous history of stroke in 2014, no evidence of stroke at this time. 3. Underlying history of insulin-dependent diabetes mellitus, type I maintained on insulin, with previous multiple admissions with DKA 4. Underlying history of gastroparesis, maintained on Reglan 5. History of psychosis maintained on Seroquel 6. Underlying history of hypertension 7. Underlying history of hyperlipidemia 8. Previous history of coronary artery disease with myocardial infarction in the past 9. Anemia was significant hemoglobin drop since yesterday. Hemoglobin improving today 8.2 10. Febrile. Urinary analysis ordered. Dr. Chapa consulted 11. Wound to leg. Dr. Chapa consulted 12. Hypotension. Patient did receive fluids has resolved At this time patient is admitted to medical floor, she was seen by neurology and was given IV antiseizure medications
[2020-04-13] MEDS ORDERED: QUEtiapine 25 MG TAB PO SCH (16:00)
[2020-04-13 16:39] LABS: Glucose,Whole Blood 136 mg/dL (75-99)
[2020-04-13 20:55] LABS: Glucose,Whole Blood 116 mg/dL (75-99)
[2020-04-13] MEDS: QUEtiapine 50 MG TAB PO SCH (21:07)
--- NOTE | 2020-04-13 22:56 | PN ---
PROGRESS NOTE DATE OF SERVICE: 04/13/2020 REASON FOR FOLLOWUP: Right third toe osteomyelitis Staph aureus. INTERVAL HISTORY: Patient is currently afebrile. The patient remains to be sleepy, lethargic and unable to provide any history. No vomiting or diarrhea or any other changes in clinical condition reported by the nursing staff. PHYSICAL EXAMINATION: Blood pressure 136/82 with a pulse of 71, temperature 98.9. She is 90% on room air. General description: The patient is a middle-aged female lying in bed in no distress. Respiratory system: Unlabored breathing, clear to auscultation anteriorly. Heart S1, S2. Regular rate and rhythm. ABDOMEN: Soft. No tenderness. Right 3rd toes remains to be swollen and red. Minimal drainage. LABS: Hemoglobin 8.8, white count 8.9, BUN of 13, creatinine 1.3. Local culture with Staph aureus. DIAGNOSTIC IMPRESSION AND PLAN: Patient with right third toe infection diabetic foot with concern for underlying osteomyelitis. Dr. Cadena will be consulted to which the patient is known as he did have previous amputation. The patient likely will need amputation of her third toe. Continue with daptomycin and monitor clinical course closely. MMODL / IJN: [id number] /
[2020-04-13] MEDS: DAPTOmycin 350 MG in SODIUM CHLORIDE 0.9% 50 ML IVPB SCH (23:45)
[2020-04-14 06:35] LABS: Anisocytosis Slight; Basophils % (A) 0 %; Eosinophils % (A) 0 %; HCT 26.4 % (34.0-46.0); HGB 7.9 gm/dL (11.4-16.0); Hypochromasia Marked; Lymphocytes # (A) 1.2 k/uL (1.0-4.8); Lymphocytes % (A) 12 %; MCH 31.8 pg (25.0-35.0); MCHC 30.1 g/dL (31.0-37.0); MCV 105.8 fL (80.0-100.0); Macrocytosis Moderate; Mean Platelet Volume 8.2; Monocytes # (A) 0.5 k/uL (0-1.0); Monocytes % (A) 4 %; Neutrophils # (A) 8.6 k/uL (1.3-7.7); Neutrophils % (A) 83 %; Platelet Count 216 k/uL (150-450); RBC 2.49 m/uL (3.80-5.40); WBC 10.4 k/uL (3.8-10.6)
[2020-04-14 07:17] LABS: Glucose,Whole Blood 483 mg/dL (75-99)
[2020-04-14] MEDS: CALCIUM CARB-VIT D 500MG-200UN 1 EACH TAB PO SCH ×2 (07:53→15:23)
[2020-04-14] MEDS: ASPIRIN 81 MG PO SCH (07:53)
[2020-04-14] MEDS: METOPROLOL TARTRATE 12.5 MG TAB PO SCH ×2 (07:53→21:20)
[2020-04-14] MEDS: METOCLOPRAMIDE 5 MG TAB PO SCH ×3 (07:53→15:25)
[2020-04-14] MEDS: QUEtiapine 25 MG TAB PO SCH ×2 (07:53→15:23)
[2020-04-14] MEDS: ASCORBIC ACID 500 MG TAB PO SCH (07:53)
[2020-04-14] MEDS: PANTOPRAZOLE 40 MG TABLET PO SCH ×2 (07:53→21:20)
[2020-04-14] MEDS: LOSARTAN 50 MG TAB PO SCH (07:53)
[2020-04-14] MEDS: DIVALPROEX 250 MG TABLET.DR PO SCH ×3 (07:54→21:20)
[2020-04-14] MEDS: INSULIN ASPART (NovoLOG) 100 UNIT/ML VIAL SQ SCH ×4 (07:54→21:19)
[2020-04-14] MEDS: DULoxetine HCL 30 MG CAPSULE.DR PO SCH (07:54)
[2020-04-14] MEDS: LACOSAMIDE 150 MG TABLET PO SCH ×2 (07:54→21:20)
[2020-04-14] MEDS: SODIUM FERRIC GLUCONAT-SUCROSE 125 MG in SODIUM CHLORIDE 0.9% 100 ML IVPB SCH (08:36)
[2020-04-14 10:08] LABS: African American GFR (CKD) 40.5 (60.0-200.0); Albumin 2.5 g/dL (3.80-4.90); Albumin/Globulin Ratio 0.93 (1.60-3.17); Anion Gap 11.1 mmol/L (4.00-12.00); BUN/Creat Ratio 14.38 Ratio (12.00-20.00); Calcium 8.4 mg/dL (8.7-10.3); Carbon Dioxide 19.9 mmol/L (21.6-31.8); Globulin 2.7 g/dL (1.6-3.3); Non-African American GFR(CKD) 34.9 (60.0-200.0); Potassium 4.9 mmol/L (3.5-5.5); Total Bilirubin 0.1 mg/dL (0.2-1.2); Total Protein 5.2 g/dL (6.2-8.2)
--- NOTE | 2020-04-14 10:20 | P.PN ---
Subjective Progress Note Date: 04/14/20 Melva Jackson, is a 59-year-old female who presented to [facility] emergency room with a chief complaint of mental status changes with worsening somnolence and episodes of vomiting, she was evaluated in the emergency room, vital examination on presentation reveals a temperature of 97.9 pulse 85 respiration 18 blood pressure 174/74 pulse ox 93% on room air, white blood count was 10.1 hemoglobin 9.9 platelet count 196 sodium 136 BUN 21 creatinine 1.12 glucose 113 lactic acid 1.2 urine analysis revealed trace leukocyte esterase with moderate bacteria, chest x-ray revealed no acute pul monary process, computed tomography scan of the brain revealed no evidence of acute intracranial hemorrhage or midline shift there was a large area of old encephalomalacic of the right anterior cerebral hemisphere related to previous stroke. Patient was admitted to telemetry floor neurology consultation was requested due to concern of a recurrent stroke. Patient has a known history of insulin-dependent diabetes mellitus type 1 history of hypertension, history of hyperlipidemia, history of seizure disorder, history of asthma, and history of psychosis. On 04/07/2020 patient is alert and oriented resting in bed patient does appear restless. CT of abdomen and pelvis has been ordered due to nausea and vomiting. Hemoglobin 8.2. GI and neurology services are following. Patient denies any chest pain or shortness of breath. Does have appetite requesting food. on 04/08/2020 patient was seen and examined on the medical floor she is alert confused and occasionally agitated she received a dose of Haldol earlier today her hemoglobin is down and gastroenterology planning EGD and colonoscopy michelle further review of system was possible today. On 04/09/2020 agent was seen and examined on the medical floor she is alert, confused in no apparent distress, there is no fever or chills no headache or dizziness no chest pain no shortness of breath no cough no nausea or vomiting no abdominal pain no agitation today, patient underwent EGD today, she has AVM which was treated she will be given IV iron, sister Sera contacted and multiple medical issues discussed in details over the form. On 04/10/2020 patient is currently sleepy will wake up to follow commands but falls back to sleep clinic DC Haldol and continue to monitor for 24 hours possible discharge tomorrow On 04/11/2020 patient was seen and examined on the medical floor she was somnolent, she had low blood pressure she was given a fluid bolus, at this point Ativan and Xanax were discontinued Haldol was discontinued yesterday will continue was Seroquel only and order Ativan as needed if patient gets agitated patient improved significantly with IV fluid bolus blood pressure is back to normal range. On 04/12/2020 patient remains sleepy but per nursing staff has been up and awake. Patient did have elevated temperatures throughout night 100.7. Dr. Chapa has been consulted for wound on leg. Repeat urinary analysis has been ordered. Patient did have episode of hypotension this has resolved. Patient denies any chest pain or shortness breath. Patient denies nausea vomiting or diarrhea. Patient denies any urinary burning or frequency. On 04/13/2020 patient was seen and examined on the medical floor, she is somn olent, in no apparent distress at this time, her nurse reports that, patient slept well all night, however when she was awake she was screaming, she kept on screaming until she was tired and fell asleep again, patient is accepting her meals and her oral medications in some apple sauce with one on one help. I am unable to do any review of systems at this time. Ativan and Xanax and Haldol were discontinued due to continue was sleeping. At this time will give Seroquel 25 mg in the morning, 25 mg in the early afternoon, and 50 mg at bedtime. Her sister Sera who is the power of estate planning attorney was contacted multiple times during this admission, CODE STATUS was discussed including possibility of hospice care, her sister stated that she will discuss that with patient's children and let us know their decision. On 04/14/2020 patient remains somnolent. Per nursing staff does wake up and screams. Per nursing still trying to make decision in regards to hospice. Awaiting callback from power of estate planning attorney kidneys after she talks to family patient is a no code. She remains on daptomycin Dr. Egan has been consulted per infectious disease recommendation for possible toe amputation Objective - Vital Signs Vital signs: Vital Signs Temp 97.9 F 04/14/20 07:00 Pulse 73 04/14/20 07:00 Resp 20 04/13/20 23:55 BP 101/66 04/14/20 07:00 Pulse Ox 96 04/14/20 07:00 Intake & Output 04/13/20 04/14/20 04/14/20 18:59 06:59 18:59 Intake Total 100 875 Output Total 300 Balance -200 875 Intake: Intake, IV Titration 875 Amount DAPTOmycin 350 mg In 50 Sodium Chloride 0.9% 50 ml @ 100 mls/hr IVPB Q24H HUMAIRA Rx#:[id number] Sodium Chloride 0.9% 1, 825 000 ml @ 75 mls/hr IV . [id number] HUMAIRA Rx#:[id number] Oral 100 Output: Urine 300 Straight 300 Other: Voiding Method Diaper Diaper # Voids 1 2 - Exam In general patient is alert, responsive, in no distress HEENT head normocephalic and atraumatic Neck is supple no JVD no goiter no lymphadenopathy Chest exam reveals a few scattered crackles no wheezing Cardiac exam reveals regular heart sounds no gallops no murmurs Abdomen is soft nontender no organomegaly was normal bowel sounds Extremity exam reveals no edema no cyanosis or clubbing Neurological examination patient is alert responsive answering questions appropriately she is moving all 4 extremity spontaneously there is residual spasticity and weakness on the left upper extremity in the left lower extremity - Labs CBC & Chem 7: 04/14/20 06:02 04/14/20 06:02 Labs: Abnormal Lab Results - Last 24 Hours (Table) 04/13/20 04/13/20 04/13/20 Range/Units 05:57 11:37 16:37 RBC (3.80-5.40) m/uL Hgb (11.4-16.0) gm/dL Hct (34.0-46.0) % MCV (80.0-100.0) fL MCHC (31.0-37.0) g/dL RDW (11.5-15.5) % Neutrophils # (1.3-7.7) k/uL ESR 77 H (0-30) mm/Hr Chloride (96-109) mmol/L Carbon Dioxide (21.6-31.8) mmol/L Creatinine (0.6-1.5) mg/dL Est GFR (CKD-EPI)AfAm (60.0-200.0) Est GFR (CKD-EPI)NonAf (60.0-200.0) Glucose (70-110) mg/dL POC Glucose (mg/dL) 222 H 136 H (75-99) mg/dL Calcium (8.7-10.3) mg/dL Total Bilirubin (0.2-1.2) mg/dL Total Protein (6.2-8.2) g/dL Albumin (3.80-4.90) g/dL Albumin/Globulin Ratio (1.60-3.17) g/dL 04/13/20 04/14/20 04/14/20 Range/Units 20:53 06:02 06:02 RBC 2.49 L (3.80-5.40) m/uL Hgb 7.9 L (11.4-16.0) gm/dL Hct 26.4 L (34.0-46.0) % MCV 105.8 H (80.0-100.0) fL MCHC 30.1 L (31.0-37.0) g/dL RDW 16.0 H (11.5-15.5) % Neutrophils # 8.6 H (1.3-7.7) k/uL ESR (0-30) mm/Hr Chloride 110 H (96-109) mmol/L Carbon Dioxide 19.9 L (21.6-31.8) mmol/L Creatinine 1.6 H (0.6-1.5) mg/dL Est GFR (CKD-EPI)AfAm 40.5 L (60.0-200.0) Est GFR (CKD-EPI)NonAf 34.9 L (60.0-200.0) Glucose 459 H (70-110) mg/dL POC Glucose (mg/dL) 116 H (75-99) mg/dL Calcium 8.4 L (8.7-10.3) mg/dL Total Bilirubin 0.1 L (0.2-1.2) mg/dL Total Protein 5.2 L (6.2-8.2) g/dL Albumin 2.50 L (3.80-4.90) g/dL Albumin/Globulin Ratio 0.93 L (1.60-3.17) g/dL 04/14/20 Range/Units 07:14 RBC (3.80-5.40) m/uL Hgb (11.4-16.0) gm/dL Hct (34.0-46.0) % MCV (80.0-100.0) fL MCHC (31.0-37.0) g/dL RDW (11.5-15.5) % Neutrophils # (1.3-7.7) k/uL ESR (0-30) mm/Hr Chloride (96-109) mmol/L Carbon Dioxide (21.6-31.8) mmol/L Creatinine (0.6-1.5) mg/dL Est GFR (CKD-EPI)AfAm (60.0-200.0) Est GFR (CKD-EPI)NonAf (60.0-200.0) Glucose (70-110) mg/dL POC Glucose (mg/dL) 483 H (75-99) mg/dL Calcium (8.7-10.3) mg/dL Total Bilirubin (0.2-1.2) mg/dL Total Protein (6.2-8.2) g/dL Albumin (3.80-4.90) g/dL Albumin/Globulin Ratio (1.60-3.17) g/dL Microbiology - Last 24 Hours (Table) 04/12/20 13:20 Gram Stain - Preliminary Toe - Left Third Wound Culture - Preliminary Presumptive Staph aureus Assessment and Plan Plan: 1. Mental status changes likely related to recurrent seizure activity due to missing antiseizure medications due to vomiting. Resolved 2. Previous history of stroke in 2014, no evidence of stroke at this time. 3. Underlying history of insulin-dependent diabetes mellitus, type I maintained on insulin, with previous multiple admissions with DKA 4. Underlying history of gastroparesis, maintained on Reglan 5. History of psychosis maintained on Seroquel 6. Underlying history of hypertension 7. Underlying history of hyperlipidemia 8. Previous history of coronary artery disease with myocardial infarction in the past 9. Anemia was significant hemoglobin drop since yesterday. Patient remains on IV iron 10. Febrile. Urinary analysis ordered. Dr. Chapa consulted 11. Diabetic ulcer to right third toe. Patient remains on daptomycin possible concerns resting mellitus. Dr. Sen has been consulted for possible amputation 12. Hypotension. Patient did receive fluids has resolved Neurology and infectious disease services are following DPOA is in discussion with family about possible hospice Dr. Egan has been consulted due to toe infection and possible requiring amputation
[2020-04-14] MEDS: SODIUM CHLORIDE 0.9% 1,000 ML IV SCH (11:08)
[2020-04-14 11:50] LABS: Glucose,Whole Blood 343 mg/dL (75-99)
[2020-04-14] MEDS ORDERED: SODIUM CHLORIDE 0.9% 500 ML 500 ML IV ONE (13:08)
[2020-04-14 16:37] LABS: Glucose,Whole Blood 302 mg/dL (75-99)
[2020-04-14 20:14] LABS: Glucose,Whole Blood 252 mg/dL (75-99)
[2020-04-14] MEDS: QUEtiapine 50 MG TAB PO SCH (21:20)
[2020-04-14] MEDS: HYDROcodone/APAP 10-325MG 1 EACH TAB PO PRN (21:27)
[2020-04-14] MEDS: DAPTOmycin 350 MG in SODIUM CHLORIDE 0.9% 50 ML IVPB SCH (22:52)
[2020-04-15] MEDS: SODIUM CHLORIDE 0.9% 1,000 ML IV SCH ×2 (00:55→21:52)
--- NOTE | 2020-04-15 04:30 | PN ---
PROGRESS NOTE DATE OF SERVICE: 04/14/2020 REASON FOR FOLLOWUP: Right middle toe diabetic foot infection, osteomyelitis. INTERVAL HISTORY: The patient is currently afebrile. The patient remains to be lethargic and sleepy and was unable to provide any history. No vomiting. No diarrhea or any other changes reported by the nursing staff. PHYSICAL EXAMINATION: Blood pressure 148/67, pulse of 80, temperature 98.1. She is 92% on room air. General description is a middle-aged female lying in bed in no distress. RESPIRATORY SYSTEM: Unlabored breathing, is clear to auscultation anteriorly. HEART: S1, S2. Regular rate and rhythm. ABDOMEN: Soft, no tenderness. Right middle toe remains to be swollen and red. LABS: Hemoglobin 7.9, white count 10.4, creatinine 1.6. Wound culture with MSSA. DIAGNOSTIC IMPRESSION AND PLAN: Patient with right diabetic foot infection in this patient with possible osteomyelitis of the right third toe. The patient does have CEPHALEXIN and PENICILLIN allergy and has borderline kidney function and hydronephrosis with vancomycin. She will continue with daptomycin. Await evaluation by Vascular Surgery possible amputation. Continue supportive care. MMODL / IJN: [id number] /
[2020-04-15 07:13] LABS: Glucose,Whole Blood 128 mg/dL (75-99)
[2020-04-15 07:26] LABS: Anisocytosis Slight; Basophils % (A) 0 %; Eosinophils % (A) 0 %; HCT 21.6 % (34.0-46.0); Hypochromasia Marked; Lymphocytes # (A) 1.8 k/uL (1.0-4.8); Lymphocytes % (A) 20 %; MCH 31.1 pg (25.0-35.0); MCHC 30.3 g/dL (31.0-37.0); MCV 102.7 fL (80.0-100.0); Macrocytosis Moderate; Mean Platelet Volume 8.6; Monocytes # (A) 0.5 k/uL (0-1.0); Monocytes % (A) 5 %; Neutrophils # (A) 6.6 k/uL (1.3-7.7); Platelet Count 217 k/uL (150-450); RDW 16.7 % (11.5-15.5)
[2020-04-15] MEDS: INSULIN ASPART (NovoLOG) 100 UNIT/ML VIAL SQ SCH ×4 (07:39→21:01)
[2020-04-15 08:14] LABS: HGB 6.5 gm/dL (11.4-16.0)
[2020-04-15] MEDS: ASCORBIC ACID 500 MG TAB PO SCH (09:20)
[2020-04-15] MEDS: METOPROLOL TARTRATE 12.5 MG TAB PO SCH ×2 (09:20→21:01)
[2020-04-15] MEDS: LACOSAMIDE 150 MG TABLET PO SCH ×2 (09:21→21:01)
[2020-04-15] MEDS: QUEtiapine 25 MG TAB PO SCH ×2 (09:21→16:49)
[2020-04-15] MEDS: ASPIRIN 81 MG PO SCH (09:21)
[2020-04-15] MEDS: HYDROcodone/APAP 10-325MG 1 EACH TAB PO PRN (09:21)
[2020-04-15] MEDS: LOSARTAN 50 MG TAB PO SCH (09:21)
[2020-04-15] MEDS: PANTOPRAZOLE 40 MG TABLET PO SCH ×2 (09:21→21:01)
[2020-04-15] MEDS: CALCIUM CARB-VIT D 500MG-200UN 1 EACH TAB PO SCH ×2 (09:21→16:49)
[2020-04-15] MEDS: DIVALPROEX 250 MG TABLET.DR PO SCH ×3 (09:22→21:01)
[2020-04-15] MEDS: METOCLOPRAMIDE 5 MG TAB PO SCH ×3 (09:22→16:49)
[2020-04-15] MEDS: DULoxetine HCL 30 MG CAPSULE.DR PO SCH (09:23)
[2020-04-15 09:33] LABS: African American GFR (CKD) 32.9 (60.0-200.0); Albumin 2.2 g/dL (3.80-4.90); Albumin/Globulin Ratio 0.81 (1.60-3.17); Anion Gap 6.2 mmol/L (4.00-12.00); BUN/Creat Ratio 14.74 Ratio (12.00-20.00); Calcium 8.3 mg/dL (8.7-10.3); Carbon Dioxide 22.8 mmol/L (21.6-31.8); Globulin 2.7 g/dL (1.6-3.3); Non-African American GFR(CKD) 28.4 (60.0-200.0); Potassium 3.9 mmol/L (3.5-5.5); Total Bilirubin 0.1 mg/dL (0.2-1.2); Total Protein 4.9 g/dL (6.2-8.2)
[2020-04-15] MEDS: SODIUM FERRIC GLUCONAT-SUCROSE 125 MG in SODIUM CHLORIDE 0.9% 100 ML IVPB SCH (10:17)
[2020-04-15 11:38] LABS: Glucose,Whole Blood 223 mg/dL (75-99)
--- NOTE | 2020-04-15 13:43 | P.PN ---
Subjective Progress Note Date: 04/15/20 Patient was seen for a follow-up. Patient is somnolent. No seizure activity witnessed by the nursing staff in the last 24 hours or since last seen. EGD showed antral gastritis, nonbleeding duodenal AVM. No further seizures reported since yesterday. Objective - Vital Signs Vital signs: Vital Signs Temp 97.8 F 04/15/20 07:00 Pulse 69 04/15/20 07:00 Resp 16 04/15/20 07:00 BP 90/55 04/15/20 07:00 Pulse Ox 92 L 04/15/20 07:00 Intake & Output 04/14/20 04/15/20 04/15/20 18:59 06:59 18:59 Intake Total 1200 912.5 Balance 1200 912.5 Intake: Intake, IV Titration 1200 912.5 Amount DAPTOmycin 350 mg In 50 Sodium Chloride 0.9% 50 ml @ 100 mls/hr IVPB Q24H [facility] Rx#:[id number] Sodium Chloride 0.9% 1, 600 862.5 000 ml @ 75 mls/hr IV . [id number] [facility] Rx#:[id number] Sodium Chloride 0.9% 500 500 ml 500 ml @ 0 mls/hr IV . [facility] Rx#: [id number] Sodium Ferric Gluconat- 100 Sucrose 125 mg In Sodium Chloride 0.9% 100 ml @ 100 mls/hr IVPB DAILY [facility] Rx#:[id number] Other: Voiding Method Diaper Diaper Diaper # Voids 0 1 - Exam Patient is very somnolent. Patient appears very pale. Patient does open her eyes to calling her name, but then drifts back to sleep. Patient has left hemiparesis. Patient moves right arm spontaneously. Right arm IV line appears slightly infiltrated. No seizures reported since in the hospital. Continues to have left spastic hemiparesis. - Labs CBC & Chem 7: 04/15/20 05:20 04/15/20 05:20 Labs: Abnormal Lab Results - Last 24 Hours (Table) 04/14/20 04/14/20 04/15/20 Range/Units 16:34 20:12 05:20 RBC 2.10 L (3.80-5.40) m/uL Hgb 6.5 L* (11.4-16.0) gm/dL Hct 21.6 L (34.0-46.0) % MCV 102.7 H (80.0-100.0) fL MCHC 30.3 L (31.0-37.0) g/dL RDW 16.7 H (11.5-15.5) % Sodium (135-145) mmol/L Chloride (96-109) mmol/L BUN (9.0-27.0) mg/dL Creatinine (0.6-1.5) mg/dL Est GFR (CKD-EPI)AfAm (60.0-200.0) Est GFR (CKD-EPI)NonAf (60.0-200.0) Glucose (70-110) mg/dL POC Glucose (mg/dL) 302 H 252 H (75-99) mg/dL Calcium (8.7-10.3) mg/dL Total Bilirubin (0.2-1.2) mg/dL AST (13-35) U/L Total Protein (6.2-8.2) g/dL Albumin (3.80-4.90) g/dL Albumin/Globulin Ratio (1.60-3.17) g/dL Crossmatch 04/15/20 04/15/20 04/15/20 Range/Units 05:20 07:12 10:12 RBC (3.80-5.40) m/uL Hgb (11.4-16.0) gm/dL Hct (34.0-46.0) % MCV (80.0-100.0) fL MCHC (31.0-37.0) g/dL RDW (11.5-15.5) % Sodium 146 H (135-145) mmol/L Chloride 117 H (96-109) mmol/L BUN 28.0 H (9.0-27.0) mg/dL Creatinine 1.9 H (0.6-1.5) mg/dL Est GFR (CKD-EPI)AfAm 32.9 L (60.0-200.0) Est GFR (CKD-EPI)NonAf 28.4 L (60.0-200.0) Glucose 117 H (70-110) mg/dL POC Glucose (mg/dL) 128 H (75-99) mg/dL Calcium 8.3 L (8.7-10.3) mg/dL Total Bilirubin 0.1 L (0.2-1.2) mg/dL AST 12 L (13-35) U/L Total Protein 4.9 L (6.2-8.2) g/dL Albumin 2.20 L (3.80-4.90) g/dL Albumin/Globulin Ratio 0.81 L (1.60-3.17) g/dL Crossmatch See Detail 04/15/20 Range/Units 11:37 RBC (3.80-5.40) m/uL Hgb (11.4-16.0) gm/dL Hct (34.0-46.0) % MCV (80.0-100.0) fL MCHC (31.0-37.0) g/dL RDW (11.5-15.5) % Sodium (135-145) mmol/L Chloride (96-109) mmol/L BUN (9.0-27.0) mg/dL Creatinine (0.6-1.5) mg/dL Est GFR (CKD-EPI)AfAm (60.0-200.0) Est GFR (CKD-EPI)NonAf (60.0-200.0) Glucose (70-110) mg/dL POC Glucose (mg/dL) 223 H (75-99) mg/dL Calcium (8.7-10.3) mg/dL Total Bilirubin (0.2-1.2) mg/dL AST (13-35) U/L Total Protein (6.2-8.2) g/dL Albumin (3.80-4.90) g/dL Albumin/Globulin Ratio (1.60-3.17) g/dL Crossmatch Microbiology - Last 24 Hours (Table) 04/12/20 13:20 Anaerobic Culture - Preliminary Toe - Left Third 04/12/20 13:20 Gram Stain - Final Toe - Left Third Wound Culture - Final Staphylococcus aureus Assessment and Plan Assessment: * Seizure disorder, provoked by lack of antiepileptic medication secondary due to vomiting. * History of CVA with spastic left hemiplegia * Cognitive deficits due to CVA. * History of diabetes, with history of hypoglycemic episodes as well as DKA, suggestive of brittle diabetes * Anemia Plan: * No seizure witnessed while in the hospital. * Continue patient's home seizure medications. Patient currently on Depakote 250 mg 3 times a day and Vimpat 150 mg twice a day. * Total Depakote level was 52 (50-100) on 04/08/2020, which is therapeutic. Patient's free Depakote level was 10.3 (4.8-17.3) on 04/07/2020. * Avoid episodes of hypoglycemia/hypotension. * IM to follow-up on severe anemia. * Neurologically stable for discharge, pending medical clearance.
--- NOTE | 2020-04-15 13:58 | P.GSCN ---
<Nitin Hillman - Last Filed: 04/15/20 13:24> History of Present Illness Consult date: 04/15/20 Reason for Consult: Right foot, necrotic right third toe. Evaluate for possible amputation, right foot third right toe. Requesting physician: Sherlyn Chen History of present illness: This a 59-year-old female patient who is followed by Dr. Sherlyn Chen on an outpatient basis. She has a past medical history significant for multiple medical problems including coronary artery disease, asthma, congestive heart failure, COPD, diabetes mellitus with diabetic foot infection requiring amputation of multiple toes, CVA/TIA, GERD, hypertension, hyperlipidemia, myocardial infarction, and deep vein thrombosis. She presented to the emergency department here at [facility] via EMS on 04/05/2020 with episodes of vomiting and altered mental status. The patient history has been obtained from her chart as the patient is a poor historian, and somnolent. On admission her initial laboratory results showed a WBC count 10.1, hemoglobin 9. 9, platelets 196, sodium 136, BUN 21, creatinine 1.12, glucose 130 and lactic acid 2.6. During her admission she was noted to have some necrotic and reddened area to her right foot third toe and subsequently Dr. Cadena from vascular surgery was consulted. Review of Systems Could not obtain because of her underlying mental status, positive points of the mention in her HPI. Past Medical History Past Medical History: Asthma, Coronary Artery Disease (CAD), Chest Pain / Angina, Heart Failure, COPD, CVA/TIA, Diabetes Mellitus, Deep Vein Thrombosis (DVT), Eye Disorder, GERD/Reflux, Hyperlipidemia, Hypertension, Myocardial Infarction (IA), Neurologic Disorder, Osteoarthritis (OA), Pneumonia, Renal Disease Additional Past Medical History / Comment(s): IDDM (brittle), DKAs, neuropathy bilateral hands/feet, retinopathy bilateral eyes, cellulitis R foot, R great toe and 2nd toe infections/amputations, current wound R foot-being seen in [facility], renal failure, anemia, CVAs with L sided paralysis, headaches started after CVAs, brain lesions, DVT R axillae, low back pain, varicosities, seizure many years ago (2001), hypothyroid, constipation, bilateral tinnitis occasionally, sinus problems. Last Myocardial Infarction Date:: 2011 History of Any Multi-Drug Resistant Organisms: MRSA Year Discovered:: 09/06/17 MDRO Source:: Right Foot Past Surgical History: Appendectomy, Section, Cholecystectomy, Heart Catheterization With Stent, Hysterectomy, Orthopedic Surgery Additional Past Surgical History / Comment(s): PCI with multiple stents, R great toe and 2nd toe amps, debridements R foot ulcer, L shoulder surgery to remove bone, bronchoscopy, EGD, colonoscopy, R arm port since removed, bilateral cataract removals/lens implants. Past Anesthesia/Blood Transfusion Reactions: No Reported Reaction Additional Past Anesthesia/Blood Transfusion Reaction / Comm: HX OF BLOOD TRANSFUSION- NO REACTION Date of Last Stent Placement:: July 2012 Past Psychological History: Anxiety, Bipolar, Depression Smoking Status: Never smoker Past Alcohol Use History: None Reported Past Drug Use History: Marijuana - Past Family History Father Family Medical History: Unable to Obtain, Coronary Artery Disease (CAD), Diabetes Mellitus Mother Family Medical History: COPD Medications and Allergies Home Medications Medication Instructions Recorded Confirmed Type HYDROcodone/APAP 10-325MG [[place] 1 tab PO TID PRN 10/03/16 04/05/20 History 10-325] Atorvastatin [Lipitor] 20 mg PO DAILY 12/28/18 04/05/20 History Aspirin [Adult Low Dose Aspirin EC] 81 mg PO DAILY 06/09/19 04/05/20 History Ferrous Sulfate [Iron (65 MG 325 mg PO BID 06/09/19 04/05/20 History Elemental)] Divalproex [Depakote] 250 mg PO TID #90 tablet. 08/17/19 04/05/20 Rx Albuterol Sulfate [Ventolin HFA] 2 puff INHALATION RT-Q4H PRN 12/26/19 04/05/20 History Losartan [Cozaar] 50 mg PO DAILY tab 01/18/20 04/05/20 Rx Ascorbic Acid [Vitamin C] 500 mg PO DAILY 01/29/20 04/05/20 History Vitamin B Complex 1 tab PO DAILY 01/29/20 04/05/20 History Clopidogrel [Plavix] 75 mg PO DAILY tab 02/02/20 04/05/20 Rx QUEtiapine [SEROquel] 50 mg PO HS 30 Days #30 tab 03/13/20 04/05/20 Rx ALPRAZolam [Xanax] 0.5 mg PO QID PRN tab 03/26/20 04/05/20 Rx DULoxetine HCL [Cymbalta] 30 mg PO DAILY capsule. 03/26/20 04/05/20 Rx Metoclopramide [Reglan] 5 mg PO AC-TID tab 03/26/20 04/05/20 Rx QUEtiapine [SEROquel] 25 mg PO DAILY tab 03/26/20 04/05/20 Rx Calcium Carb-Vit D 500Mg-200Un 1 tab PO BID-W/MEALS 03/31/20 04/05/20 History [Oscal 500+D] INSULIN LISPRO (humaLOG) [humaLOG] 6 units SQ AC-TID 03/31/20 04/05/20 History Ondansetron Odt [Zofran ODT] 4 mg PO Q8HR PRN 3 Days #9 tab 03/31/20 04/05/20 Rx Insulin Detemir [Levemir Flextouch] 10 units SQ HS 04/05/20 04/05/20 History Lacosamide [Vimpat] 100 mg PO BID 04/05/20 04/05/20 History Metoprolol Tartrate [Lopressor] 12.5 mg PO BID 04/05/20 04/05/20 History Pantoprazole Sodium [Protonix] 40 mg PO BID 30 Days #60 tablet. 04/10/20 Rx Allergies Allergy/AdvReac Type Severity Reaction Status Date / Time Barbiturates Allergy Rash/Hives Verified 03/31/20 10:22 cephalexin monohydrate Allergy Rash/Hives Verified 03/31/20 10:22 [From Keflex] morphine Allergy Rash/Hives Verified 03/31/20 10:22 Penicillins Allergy Rash/Hives Verified 03/31/20 10:22 phenobarbital Allergy Swelling Verified 03/31/20 10:22 venom-honey bee Allergy Swelling Verified 03/31/20 10:22 [bee venom (honey bee)] amlodipine besylate AdvReac Vomiting Verified 03/31/20 10:22 [From Norvas] Surgical - Exam Vital Signs Temp Pulse Resp BP Pulse Ox 97.9 F 85 18 174/74 93 L 04/05/20 10:40 04/05/20 10:40 04/05/20 10:40 04/05/20 10:40 04/05/20 10:40 - General no distress, no pain, chronically ill - Eyes normal ocular movement, no icteric - ENT normal pinna, normal nares, normal mucosa, no congestion - Neck Neck is supple, no lymphadenopathy. no masses, no bruits, trachea midline, no venous distension - Respiratory Lung sounds are essentially clear throughout. No wheezes, rhonchi or crackles. Respirations are symmetrical and nonlabored. - Cardiovascular Regular rhythm and rate. S1 and S2 to present, negative for S3, gallop or murmur. - Abdomen Abdomen is soft, nontender and nondistended. No guarding or rigidity. No organomegaly appreciated. - Genitourinary Deferred - Rectum Deferred - Integumentary Skin is warm and dry. No clubbing or cyanosis is present. Necrotic area to her right foot third toe with bone exposure. - Neurologic Could not assess her orientation due to her somnolence. Opens eyes with verbal stimuli. - Psychiatric no memory intact Results - Labs 04/15/20 05:20 04/15/20 05:20 Abnormal Lab Results - Last 24 Hours (Table) 04/14/20 04/14/20 04/15/20 Range/Units 16:34 20:12 05:20 RBC 2.10 L (3.80-5.40) m/uL Hgb 6.5 L* (11.4-16.0) gm/dL Hct 21.6 L (34.0-46.0) % MCV 102.7 H (80.0-100.0) fL MCHC 30.3 L (31.0-37.0) g/dL RDW 16.7 H (11.5-15.5) % Sodium (135-145) mmol/L Chloride (96-109) mmol/L BUN (9.0-27.0) mg/dL Creatinine (0.6-1.5) mg/dL Est GFR (CKD-EPI)AfAm (60.0-200.0) Est GFR (CKD-EPI)NonAf (60.0-200.0) Glucose (70-110) mg/dL POC Glucose (mg/dL) 302 H 252 H (75-99) mg/dL Calcium (8.7-10.3) mg/dL Total Bilirubin (0.2-1.2) mg/dL AST (13-35) U/L Total Protein (6.2-8.2) g/dL Albumin (3.80-4.90) g/dL Albumin/Globulin Ratio (1.60-3.17) g/dL Crossmatch 04/15/20 04/15/20 04/15/20 Range/Units 05:20 07:12 10:12 RBC (3.80-5.40) m/uL Hgb (11.4-16.0) gm/dL Hct (34.0-46.0) % MCV (80.0-100.0) fL MCHC (31.0-37.0) g/dL RDW (11.5-15.5) % Sodium 146 H (135-145) mmol/L Chloride 117 H (96-109) mmol/L BUN 28.0 H (9.0-27.0) mg/dL Creatinine 1.9 H (0.6-1.5) mg/dL Est GFR (CKD-EPI)AfAm 32.9 L (60.0-200.0) Est GFR (CKD-EPI)NonAf 28.4 L (60.0-200.0) Glucose 117 H (70-110) mg/dL POC Glucose (mg/dL) 128 H (75-99) mg/dL Calcium 8.3 L (8.7-10.3) mg/dL Total Bilirubin 0.1 L (0.2-1.2) mg/dL AST 12 L (13-35) U/L Total Protein 4.9 L (6.2-8.2) g/dL Albumin 2.20 L (3.80-4.90) g/dL Albumin/Globulin Ratio 0.81 L (1.60-3.17) g/dL Crossmatch See Detail 04/15/20 Range/Units 11:37 RBC (3.80-5.40) m/uL Hgb (11.4-16.0) gm/dL Hct (34.0-46.0) % MCV (80.0-100.0) fL MCHC (31.0-37.0) g/dL RDW (11.5-15.5) % Sodium (135-145) mmol/L Chloride (96-109) mmol/L BUN (9.0-27.0) mg/dL Creatinine (0.6-1.5) mg/dL Est GFR (CKD-EPI)AfAm (60.0-200.0) Est GFR (CKD-EPI)NonAf (60.0-200.0) Glucose (70-110) mg/dL POC Glucose (mg/dL) 223 H (75-99) mg/dL Calcium (8.7-10.3) mg/dL Total Bilirubin (0.2-1.2) mg/dL AST (13-35) U/L Total Protein (6.2-8.2) g/dL Albumin (3.80-4.90) g/dL Albumin/Globulin Ratio (1.60-3.17) g/dL Crossmatch Microbiology - Last 24 Hours (Table) 04/12/20 13:20 Anaerobic Culture - Preliminary Toe - Left Third 04/12/20 13:20 Gram Stain - Final Toe - Left Third Wound Culture - Final Staphylococcus aureus Diabetes panel 04/15/20 Range/Units 05:20 Sodium 146 H (135-145) mmol/L Potassium 3.9 (3.5-5.5) mmol/L Chloride 117 H (96-109) mmol/L Carbon Dioxide 22.8 (21.6-31.8) mmol/L BUN 28.0 H (9.0-27.0) mg/dL Creatinine 1.9 H (0.6-1.5) mg/dL Glucose 117 H (70-110) mg/dL Calcium 8.3 L (8.7-10.3) mg/dL AST 12 L (13-35) U/L ALT 16 (8-44) U/L Alkaline Phosphatase 86 (41-126) U/L Total Protein 4.9 L (6.2-8.2) g/dL Albumin 2.20 L (3.80-4.90) g/dL Calcium panel 04/15/20 Range/Units 05:20 Calcium 8.3 L (8.7-10.3) mg/dL Albumin 2.20 L (3.80-4.90) g/dL Pituitary panel 04/15/20 Range/Units 05:20 Sodium 146 H (135-145) mmol/L Potassium 3.9 (3.5-5.5) mmol/L Chloride 117 H (96-109) mmol/L Carbon Dioxide 22.8 (21.6-31.8) mmol/L BUN 28.0 H (9.0-27.0) mg/dL Creatinine 1.9 H (0.6-1.5) mg/dL Glucose 117 H (70-110) mg/dL Calcium 8.3 L (8.7-10.3) mg/dL Adrenal panel 04/15/20 Range/Units 05:20 Sodium 146 H (135-145) mmol/L Potassium 3.9 (3.5-5.5) mmol/L Chloride 117 H (96-109) mmol/L Carbon Dioxide 22.8 (21.6-31.8) mmol/L BUN 28.0 H (9.0-27.0) mg/dL Creatinine 1.9 H (0.6-1.5) mg/dL Glucose 117 H (70-110) mg/dL Calcium 8.3 L (8.7-10.3) mg/dL Total Bilirubin 0.1 L (0.2-1.2) mg/dL AST 12 L (13-35) U/L ALT 16 (8-44) U/L Alkaline Phosphatase 86 (41-126) U/L Total Protein 4.9 L (6.2-8.2) g/dL Albumin 2.20 L (3.80-4.90) g/dL Assessment and Plan Assessment: 1. Diabetic infection right foot, third toe 2. Altered mental status 3. History of stroke in 2014 4. Insulin-dependent diabetes mellitus 5. History of hypertension 6. History of hyperlipidemia 7. History of coronary artery disease with history of myocardial infarction 8. Anemi. Plan: The patient was seen and examined at her bedside on the fourth floor medical surgical unit. Her chart and diagnostics were reviewed. Her case was discussed in detail with Dr. Himanshu Cadena from vascular surgery. The patient will be placed nothing by mouth after midnight and will be scheduled for a right foot third toe amputation. This is a been discussed with the patient's guardian who is in agreement with the plan. Continue antibiotics which are managed by infectious disease. Continue local wound care to her right foot. Medical management other comorbidities per primary care service. More recommendations to follow based on patient's clinical course. Thank you Dr. Chen for this consult and we will look for to working with you in the care of this patient. Nurse practitioner note has been reviewed by the physician. Signing provider agrees with the above documented findings, assessment and plan of care. Time with Patient: Greater than 30 <TammiHimanshu - Last Filed: 04/16/20 13:30> Surgical - Exam Osteopathic Statement: *. No significant issues noted on an osteopathic structural exam other than those noted in the History and Physical/Consult. Vital Signs Temp Pulse Resp BP Pulse Ox 97.9 F 85 18 174/74 93 L 04/05/20 10:40 04/05/20 10:40 04/05/20 10:40 04/05/20 10:40 04/05/20 10:40 Results - Labs 04/16/20 07:28 04/16/20 07:28 Abnormal Lab Results - Last 24 Hours (Table) 04/15/20 04/15/20 04/15/20 Range/Units 10:12 16:47 20:39 RBC (3.80-5.40) m/uL Hgb (11.4-16.0) gm/dL Hct (34.0-46.0) % MCV (80.0-100.0) fL RDW (11.5-15.5) % Neutrophils # (1.3-7.7) k/uL Potassium (3.5-5.1) mmol/L Chloride (98-107) mmol/L Carbon Dioxide (22-30) mmol/L BUN (7-17) mg/dL Creatinine (0.52-1.04) mg/dL Glucose (74-99) mg/dL POC Glucose (mg/dL) 329 H 227 H (75-99) mg/dL Albumin (3.5-5.0) g/dL Crossmatch See Detail 04/16/20 04/16/20 04/16/20 Range/Units 06:58 07:28 07:28 RBC 3.08 L (3.80-5.40) m/uL Hgb 9.9 L D (11.4-16.0) gm/dL Hct 31.9 L (34.0-46.0) % MCV 103.4 H (80.0-100.0) fL RDW 16.1 H (11.5-15.5) % Neutrophils # 8.3 H (1.3-7.7) k/uL Potassium 5.4 H (3.5-5.1) mmol/L Chloride 118 H (98-107) mmol/L Carbon Dioxide 19 L (22-30) mmol/L BUN 35 H (7-17) mg/dL Creatinine 2.49 H (0.52-1.04) mg/dL Glucose 366 H (74-99) mg/dL POC Glucose (mg/dL) 361 H (75-99) mg/dL Albumin 2.7 L (3.5-5.0) g/dL Crossmatch 04/16/20 Range/Units 11:58 RBC (3.80-5.40) m/uL Hgb (11.4-16.0) gm/dL Hct (34.0-46.0) % MCV (80.0-100.0) fL RDW (11.5-15.5) % Neutrophils # (1.3-7.7) k/uL Potassium (3.5-5.1) mmol/L Chloride (98-107) mmol/L Carbon Dioxide (22-30) mmol/L BUN (7-17) mg/dL Creatinine (0.52-1.04) mg/dL Glucose (74-99) mg/dL POC Glucose (mg/dL) 475 H (75-99) mg/dL Albumin (3.5-5.0) g/dL Crossmatch Diabetes panel 04/16/20 Range/Units 07:28 Sodium 143 (137-145) mmol/L Potassium 5.4 H (3.5-5.1) mmol/L Chloride 118 H (98-107) mmol/L Carbon Dioxide 19 L (22-30) mmol/L BUN 35 H (7-17) mg/dL Creatinine 2.49 H (0.52-1.04) mg/dL Glucose 366 H (74-99) mg/dL Calcium 8.7 (8.4-10.2) mg/dL AST 26 (14-36) U/L ALT 18 (4-34) U/L Alkaline Phosphatase 116 (38-126) U/L Total Protein 6.7 (6.3-8.2) g/dL Albumin 2.7 L (3.5-5.0) g/dL Calcium panel 04/16/20 Range/Units 07:28 Calcium 8.7 (8.4-10.2) mg/dL Albumin 2.7 L (3.5-5.0) g/dL Pituitary panel 04/16/20 Range/Units 07:28 Sodium 143 (137-145) mmol/L Potassium 5.4 H (3.5-5.1) mmol/L Chloride 118 H (98-107) mmol/L Carbon Dioxide 19 L (22-30) mmol/L BUN 35 H (7-17) mg/dL Creatinine 2.49 H (0.52-1.04) mg/dL Glucose 366 H (74-99) mg/dL Calcium 8.7 (8.4-10.2) mg/dL Adrenal panel 04/16/20 Range/Units 07:28 Sodium 143 (137-145) mmol/L Potassium 5.4 H (3.5-5.1) mmol/L Chloride 118 H (98-107) mmol/L Carbon Dioxide 19 L (22-30) mmol/L BUN 35 H (7-17) mg/dL Creatinine 2.49 H (0.52-1.04) mg/dL Glucose 366 H (74-99) mg/dL Calcium 8.7 (8.4-10.2) mg/dL Total Bilirubin 0.5 (0.2-1.3) mg/dL AST 26 (14-36) U/L ALT 18 (4-34) U/L Alkaline Phosphatase 116 (38-126) U/L Total Protein 6.7 (6.3-8.2) g/dL Albumin 2.7 L (3.5-5.0) g/dL Assessment and Plan Plan: I examined this patient. I discussed the case with the nurse practitioner. I discussed with family options for therapy. The family has agreed with hospice care. They have also agreed for us to do a bedside debridement/amputation to make this foot E0 to care for at home. Her family verbalized their understanding of the issues and our plan.
[2020-04-15 16:49] LABS: Glucose,Whole Blood 329 mg/dL (75-99)
--- NOTE | 2020-04-15 19:34 | P.PN ---
Subjective Progress Note Date: 04/15/20 Melva Jackson, is a 59-year-old female who presented to [facility] emergency room with a chief complaint of mental status changes with worsening somnolence and episodes of vomiting, she was evaluated in the emergency room, vital examination on presentation reveals a temperature of 97.9 pulse 85 respiration 18 blood pressure 174/74 pulse ox 93% on room air, white blood count was 10.1 hemoglobin 9.9 platelet count 196 sodium 136 BUN 21 creatinine 1.12 glucose 113 lactic acid 1.2 urine analysis revealed trace leukocyte esterase with moderate bacteria, chest x-ray revealed no acute pul monary process, computed tomography scan of the brain revealed no evidence of acute intracranial hemorrhage or midline shift there was a large area of old encephalomalacic of the right anterior cerebral hemisphere related to previous stroke. Patient was admitted to telemetry floor neurology consultation was requested due to concern of a recurrent stroke. Patient has a known history of insulin-dependent diabetes mellitus type 1 history of hypertension, history of hyperlipidemia, history of seizure disorder, history of asthma, and history of psychosis. On 04/07/2020 patient is alert and oriented resting in bed patient does appear restless. CT of abdomen and pelvis has been ordered due to nausea and vomiting. Hemoglobin 8.2. GI and neurology services are following. Patient denies any chest pain or shortness of breath. Does have appetite requesting food. on 04/08/2020 patient was seen and examined on the medical floor she is alert confused and occasionally agitated she received a dose of Haldol earlier today her hemoglobin is down and gastroenterology planning EGD and colonoscopy michelle further review of system was possible today. On 04/09/2020 agent was seen and examined on the medical floor she is alert, confused in no apparent distress, there is no fever or chills no headache or dizziness no chest pain no shortness of breath no cough no nausea or vomiting no abdominal pain no agitation today, patient underwent EGD today, she has AVM which was treated she will be given IV iron, sister Sera contacted and multiple medical issues discussed in details over the form. On 04/10/2020 patient is currently sleepy will wake up to follow commands but falls back to sleep clinic DC Haldol and continue to monitor for 24 hours possible discharge tomorrow On 04/11/2020 patient was seen and examined on the medical floor she was somnolent, she had low blood pressure she was given a fluid bolus, at this point Ativan and Xanax were discontinued Haldol was discontinued yesterday will continue was Seroquel only and order Ativan as needed if patient gets agitated patient improved significantly with IV fluid bolus blood pressure is back to normal range. On 04/12/2020 patient remains sleepy but per nursing staff has been up and awake. Patient did have elevated temperatures throughout night 100.7. Dr. Chapa has been consulted for wound on leg. Repeat urinary analysis has been ordered. Patient did have episode of hypotension this has resolved. Patient denies any chest pain or shortness breath. Patient denies nausea vomiting or diarrhea. Patient denies any urinary burning or frequency. On 04/13/2020 patient was seen and examined on the medical floor, she is somn olent, in no apparent distress at this time, her nurse reports that, patient slept well all night, however when she was awake she was screaming, she kept on screaming until she was tired and fell asleep again, patient is accepting her meals and her oral medications in some apple sauce with one on one help. I am unable to do any review of systems at this time. Ativan and Xanax and Haldol were discontinued due to continue was sleeping. At this time will give Seroquel 25 mg in the morning, 25 mg in the early afternoon, and 50 mg at bedtime. Her sister Sera who is the power of commercial litigation attorney was contacted multiple times during this admission, CODE STATUS was discussed including possibility of hospice care, her sister stated that she will discuss that with patient's children and let us know their decision. On 04/14/2020 patient remains somnolent. Per nursing staff does wake up and screams. Per nursing still trying to make decision in regards to hospice. Awaiting callback from power of commercial litigation attorney kidneys after she talks to family patient is a no code. She remains on daptomycin Dr. Egan has been consulted per infectious disease recommendation for possible toe amputation. On 04/15/2020 patient was seen and examined on the medical floor she is somnolent but arousable in no distress, there is no fever or chills hemoglobin is down to 6.5 today 1 unit of red blood cell transfusion was ordered he was evaluated by Dr. Cadena and patient will need amputation of her toe, otherwise no significant change in condition since yesterday Objective - Vital Signs Vital signs: Vital Signs Temp 98 F 04/15/20 16:52 Pulse 75 04/15/20 16:52 Resp 18 04/15/20 16:52 BP 137/80 04/15/20 16:52 Pulse Ox 100 04/15/20 16:52 Intake & Output 04/14/20 04/15/20 04/15/20 18:59 06:59 18:59 Intake Total 1200 912.5 310 Balance 1200 912.5 310 Intake: Intake, IV Titration 1200 912.5 Amount DAPTOmycin 350 mg In 50 Sodium Chloride 0.9% 50 ml @ 100 mls/hr IVPB Q24H [facility] Rx#:[id number] Sodium Chloride 0.9% 1, 600 862.5 000 ml @ 75 mls/hr IV . [id number] [facility] Rx#:[id number] Sodium Chloride 0.9% 500 500 ml 500 ml @ 0 mls/hr IV . [facility] Rx#: [id number] Sodium Ferric Gluconat- 100 Sucrose 125 mg In Sodium Chloride 0.9% 100 ml @ 100 mls/hr IVPB DAILY [facility] Rx#:[id number] Blood Product 310 Rc As-1 Unit 310 [id number] Other: Voiding Method Diaper Diaper Diaper # Voids 0 1 1 - Exam In general patient is alert, responsive, in no distress HEENT head normocephalic and atraumatic Neck is supple no JVD no goiter no lymphadenopathy Chest exam reveals a few scattered crackles no wheezing Cardiac exam reveals regular heart sounds no gallops no murmurs Abdomen is soft nontender no organomegaly was normal bowel sounds Extremity exam reveals no edema no cyanosis or clubbing Neurological examination patient is alert responsive answering questions appropriately she is moving all 4 extremity spontaneously there is residual spasticity and weakness on the left upper extremity in the left lower extremity - Labs CBC & Chem 7: 04/15/20 05:20 04/15/20 05:20 Labs: Abnormal Lab Results - Last 24 Hours (Table) 04/14/20 04/15/20 04/15/20 Range/Units 20:12 05:20 05:20 RBC 2.10 L (3.80-5.40) m/uL Hgb 6.5 L* (11.4-16.0) gm/dL Hct 21.6 L (34.0-46.0) % MCV 102.7 H (80.0-100.0) fL MCHC 30.3 L (31.0-37.0) g/dL RDW 16.7 H (11.5-15.5) % Sodium 146 H (135-145) mmol/L Chloride 117 H (96-109) mmol/L BUN 28.0 H (9.0-27.0) mg/dL Creatinine 1.9 H (0.6-1.5) mg/dL Est GFR (CKD-EPI)AfAm 32.9 L (60.0-200.0) Est GFR (CKD-EPI)NonAf 28.4 L (60.0-200.0) Glucose 117 H (70-110) mg/dL POC Glucose (mg/dL) 252 H (75-99) mg/dL Calcium 8.3 L (8.7-10.3) mg/dL Total Bilirubin 0.1 L (0.2-1.2) mg/dL AST 12 L (13-35) U/L Total Protein 4.9 L (6.2-8.2) g/dL Albumin 2.20 L (3.80-4.90) g/dL Albumin/Globulin Ratio 0.81 L (1.60-3.17) g/dL Crossmatch 04/15/20 04/15/20 04/15/20 Range/Units 07:12 10:12 11:37 RBC (3.80-5.40) m/uL Hgb (11.4-16.0) gm/dL Hct (34.0-46.0) % MCV (80.0-100.0) fL MCHC (31.0-37.0) g/dL RDW (11.5-15.5) % Sodium (135-145) mmol/L Chloride (96-109) mmol/L BUN (9.0-27.0) mg/dL Creatinine (0.6-1.5) mg/dL Est GFR (CKD-EPI)AfAm (60.0-200.0) Est GFR (CKD-EPI)NonAf (60.0-200.0) Glucose (70-110) mg/dL POC Glucose (mg/dL) 128 H 223 H (75-99) mg/dL Calcium (8.7-10.3) mg/dL Total Bilirubin (0.2-1.2) mg/dL AST (13-35) U/L Total Protein (6.2-8.2) g/dL Albumin (3.80-4.90) g/dL Albumin/Globulin Ratio (1.60-3.17) g/dL Crossmatch See Detail 04/15/20 Range/Units 16:47 RBC (3.80-5.40) m/uL Hgb (11.4-16.0) gm/dL Hct (34.0-46.0) % MCV (80.0-100.0) fL MCHC (31.0-37.0) g/dL RDW (11.5-15.5) % Sodium (135-145) mmol/L Chloride (96-109) mmol/L BUN (9.0-27.0) mg/dL Creatinine (0.6-1.5) mg/dL Est GFR (CKD-EPI)AfAm (60.0-200.0) Est GFR (CKD-EPI)NonAf (60.0-200.0) Glucose (70-110) mg/dL POC Glucose (mg/dL) 329 H (75-99) mg/dL Calcium (8.7-10.3) mg/dL Total Bilirubin (0.2-1.2) mg/dL AST (13-35) U/L Total Protein (6.2-8.2) g/dL Albumin (3.80-4.90) g/dL Albumin/Globulin Ratio (1.60-3.17) g/dL Crossmatch Microbiology - Last 24 Hours (Table) 04/12/20 13:20 Anaerobic Culture - Preliminary Toe - Left Third Assessment and Plan Plan: 1. Mental status changes likely related to recurrent seizure activity due to missing antiseizure medications due to vomiting. Resolved 2. Previous history of stroke in 2014, no evidence of stroke at this time. 3. Underlying history of insulin-dependent diabetes mellitus, type I maintained on insulin, with previous multiple admissions with DKA 4. Underlying history of gastroparesis, maintained on Reglan 5. History of psychosis maintained on Seroquel 6. Underlying history of hypertension 7. Underlying history of hyperlipidemia 8. Previous history of coronary artery disease with myocardial infarction in the past 9. Anemia was significant hemoglobin drop since yesterday. Patient remains on IV iron 10. Febrile. Urinary analysis ordered. Dr. Chapa consulted 11. Diabetic ulcer to right third toe. Patient remains on daptomycin possible concerns resting mellitus. Dr. Sen has been consulted for possible amputation 12. Hypotension. Patient did receive fluids has resolved Neurology and infectious disease services are following DPOA is in discussion with family about possible hospice Dr. Egan has been consulted due to toe infection and possible requiring ampu tation
[2020-04-15 20:40] LABS: Glucose,Whole Blood 227 mg/dL (75-99)
[2020-04-15] MEDS: QUEtiapine 50 MG TAB PO SCH (21:14)
--- NOTE | 2020-04-15 22:11 | PN ---
PROGRESS NOTE DATE OF SERVICE: 04/15/2020 REASON FOR FOLLOWUP: Right third toe osteomyelitis. INTERVAL HISTORY: Patient is currently afebrile. Patient is breathing comfortably. He is hemodynamically stable. Remains to be lethargic and sleepy, unable to provide any history. No vomiting. No diarrhea or any other reported change reported by nursing staff. PHYSICAL EXAMINATION: Blood pressure 137/80 with a pulse of 75, temperature 98. She is 100% on 3 L nasal cannula. General description is a middle-aged female lying in bed in no distress. Respiratory system: Unlabored breathing, decreased breath sounds in the base, with no wheeze. Heart S1, S2. Regular rate and rhythm. Abdomen soft, no tenderness. Right third toe still swollen and red with some drainage. LABS: Hemoglobin 6.5, white count 9.0, creatinine is 1.9. DIAGNOSTIC IMPRESSION AND PLAN: Patient with right third toe diabetic foot infection, concern for underlying osteomyelitis. Surgery has seen the patient for possible amputation. Patient is covered with because of MULTIPLE ANTIBIOTIC ALLERGIES and borderline kidney function. Continue supportive care. MMODL / IJN: [id number] /
[2020-04-16] MEDS: SODIUM CHLORIDE 0.9% 1,000 ML IV SCH ×2 (05:21→17:20)
[2020-04-16 07:05] LABS: Glucose,Whole Blood 361 mg/dL (75-99)
[2020-04-16] MEDS: CALCIUM CARB-VIT D 500MG-200UN 1 EACH TAB PO SCH ×2 (07:05→16:42)
[2020-04-16] MEDS: ASCORBIC ACID 500 MG TAB PO SCH (07:18)
[2020-04-16] MEDS: METOCLOPRAMIDE 5 MG TAB PO SCH ×3 (07:18→16:42)
[2020-04-16] MEDS: INSULIN ASPART (NovoLOG) 100 UNIT/ML VIAL SQ SCH ×4 (07:18→21:14)
[2020-04-16] MEDS: ASPIRIN 81 MG PO SCH (07:19)
[2020-04-16] MEDS: PANTOPRAZOLE 40 MG TABLET PO SCH ×2 (07:19→21:15)
[2020-04-16] MEDS: LOSARTAN 50 MG TAB PO SCH (07:26)
[2020-04-16 08:04] LABS: ALT 18 U/L (4-34); AST 26 U/L (14-36); African American GFR (CKD) 24 (>60 ml/min/1.73 sqM); Albumin 2.7 g/dL (3.5-5.0); Albumin/Globulin Ratio 0.7; Alkaline Phosphatase 116 U/L (38-126); Anion Gap 6 mmol/L; Blood Urea Nitrogen 35 mg/dL (7-17); Calcium 8.7 mg/dL (8.4-10.2); Carbon Dioxide 19 mmol/L (22-30); Chloride 118 mmol/L (98-107); Glucose 366 mg/dL (74-99); Non-African American GFR(CKD) 21 (>60 ml/min/1.73 sqM); Potassium 5.4 mmol/L (3.5-5.1); Sodium 143 mmol/L (137-145); Total Bilirubin 0.5 mg/dL (0.2-1.3); Total Protein 6.7 g/dL (6.3-8.2)
[2020-04-16 09:17] LABS: Anisocytosis Slight; Basophils % (A) 0 %; Eosinophils % (A) 0 %; HCT 31.9 % (34.0-46.0); Hypochromasia Marked; Lymphocytes # (A) 1.2 k/uL (1.0-4.8); Lymphocytes % (A) 11 %; MCH 32.1 pg (25.0-35.0); MCV 103.4 fL (80.0-100.0); Macrocytosis Moderate; Mean Platelet Volume 9.2; Monocytes # (A) 0.5 k/uL (0-1.0); Monocytes % (A) 5 %; Neutrophils # (A) 8.3 k/uL (1.3-7.7); Neutrophils % (A) 81 %; Platelet Count 203 k/uL (150-450); RBC 3.08 m/uL (3.80-5.40); RDW 16.1 % (11.5-15.5); WBC 10.2 k/uL (3.8-10.6)
[2020-04-16 09:29] LABS: HGB 9.9 gm/dL (11.4-16.0)
[2020-04-16] MEDS: QUEtiapine 25 MG TAB PO SCH ×2 (09:44→16:42)
[2020-04-16] MEDS: METOPROLOL TARTRATE 12.5 MG TAB PO SCH ×2 (09:45→21:14)
[2020-04-16] MEDS: LACOSAMIDE 150 MG TABLET PO SCH ×2 (09:45→21:14)
[2020-04-16] MEDS: DIVALPROEX 250 MG TABLET.DR PO SCH ×3 (09:46→21:15)
[2020-04-16] MEDS: DULoxetine HCL 30 MG CAPSULE.DR PO SCH (09:47)
[2020-04-16] MEDS: SODIUM FERRIC GLUCONAT-SUCROSE 125 MG in SODIUM CHLORIDE 0.9% 100 ML IVPB SCH (10:52)
--- NOTE | 2020-04-16 11:36 | P.PN ---
Subjective Progress Note Date: 04/16/20 Patient was seen for a follow-up. Patient is somnolent. Per nursing report, either she is sleeping, or when she is awake, she starts yelling. Patient has developed possible osteomyelitis of the second toe of the left foot. Patient had a seizure early this morning at around 3 AM, lasting for less than a minute. Patient was fairly well awake afterwards. EGD showed antral gastritis, nonbleeding duodenal AVM. No further seizures reported since yesterday. Objective - Vital Signs Vital signs: Vital Signs Temp 98.0 F 04/16/20 07:21 Pulse 95 04/16/20 07:21 Resp 19 04/16/20 07:21 BP 91/59 04/16/20 07:21 Pulse Ox 97 04/16/20 07:21 Intake & Output 04/15/20 04/16/20 04/16/20 18:59 06:59 18:59 Intake Total 310 150 Balance 310 150 Intake: Intake, IV Titration 150 Amount Sodium Chloride 0.9% 1, 150 000 ml @ 75 mls/hr IV . [id number] [facility] Rx#:[id number] Blood Product 310 Rc As-1 Unit 310 [id number] Other: Voiding Method Diaper Diaper # Voids 1 1 - Exam Patient is very somnolent. Patient states "what" when her name is called. Patient does follow commands on the right. Patient is spastic on the left. Her left second toe appears to have possible osteomyelitis. - Labs CBC & Chem 7: 04/16/20 07:28 04/16/20 07:28 Labs: Abnormal Lab Results - Last 24 Hours (Table) 04/15/20 04/15/20 04/15/20 Range/Units 10:12 11:37 16:47 RBC (3.80-5.40) m/uL Hgb (11.4-16.0) gm/dL Hct (34.0-46.0) % MCV (80.0-100.0) fL RDW (11.5-15.5) % Neutrophils # (1.3-7.7) k/uL Potassium (3.5-5.1) mmol/L Chloride (98-107) mmol/L Carbon Dioxide (22-30) mmol/L BUN (7-17) mg/dL Creatinine (0.52-1.04) mg/dL Glucose (74-99) mg/dL POC Glucose (mg/dL) 223 H 329 H (75-99) mg/dL Albumin (3.5-5.0) g/dL Crossmatch See Detail 04/15/20 04/16/20 04/16/20 Range/Units 20:39 06:58 07:28 RBC 3.08 L (3.80-5.40) m/uL Hgb 9.9 L D (11.4-16.0) gm/dL Hct 31.9 L (34.0-46.0) % MCV 103.4 H (80.0-100.0) fL RDW 16.1 H (11.5-15.5) % Neutrophils # 8.3 H (1.3-7.7) k/uL Potassium (3.5-5.1) mmol/L Chloride (98-107) mmol/L Carbon Dioxide (22-30) mmol/L BUN (7-17) mg/dL Creatinine (0.52-1.04) mg/dL Glucose (74-99) mg/dL POC Glucose (mg/dL) 227 H 361 H (75-99) mg/dL Albumin (3.5-5.0) g/dL Crossmatch 04/16/20 Range/Units 07:28 RBC (3.80-5.40) m/uL Hgb (11.4-16.0) gm/dL Hct (34.0-46.0) % MCV (80.0-100.0) fL RDW (11.5-15.5) % Neutrophils # (1.3-7.7) k/uL Potassium 5.4 H (3.5-5.1) mmol/L Chloride 118 H (98-107) mmol/L Carbon Dioxide 19 L (22-30) mmol/L BUN 35 H (7-17) mg/dL Creatinine 2.49 H (0.52-1.04) mg/dL Glucose 366 H (74-99) mg/dL POC Glucose (mg/dL) (75-99) mg/dL Albumin 2.7 L (3.5-5.0) g/dL Crossmatch Assessment and Plan Assessment: * Seizure disorder, provoked by lack of antiepileptic medication secondary due to vomiting. * Patient had a breakthrough seizure last night, possibly related to infection. * History of CVA with spastic left hemiplegia * Cognitive deficits due to CVA. * History of diabetes, with history of hypoglycemic episodes as well as DKA, suggestive of brittle diabetes * Anemia Plan: * Patient had a breakthrough seizure last night. May be related to ongoing foot infection. Will not make changes in her antiepileptic medication regimen, as she is already too groggy most of the time. * Continue patient's home seizure medications. Patient currently on Depakote 250 mg 3 times a day and Vimpat 150 mg twice a day. * Total Depakote level was 52 (50-100) on 04/08/2020, which is therapeutic. Patient's free Depakote level was 10.3 (4.8-17.3) on 04/07/2020. * Avoid episodes of hypoglycemia/hypotension. * IM to follow-up on severe anemia. * Per nursing report, family is considering hospice care.
[2020-04-16 12:05] LABS: Glucose,Whole Blood 475 mg/dL (75-99)
--- NOTE | 2020-04-16 13:34 | P.OP ---
Date of Procedure: 04/16/20 Preoperative Diagnosis: Gangrene right third toe Postoperative Diagnosis: Same Procedure(s) Performed: Amputation right third toe Anesthesia: none (Patient has severe dense neuropathy.) Surgeon: Himanshu Cadena Estimated Blood Loss (ml): 3 Pathology: other (Total and bone for disposal only) Condition: stable Disposition: floor Indications for Procedure: The patient has deteriorated dramatically. She has necrosis of the distal aspect of the right third toe. The toe has suffered osteomyelitis and has disarticulated the distal phalanx. Operative Findings: Proximal tissues appeared healthy. Description of Procedure: With the patient spine position, using sterile precautions, we used a scalpel to excise the necrotic soft tissue. We utilized a rongeur to remove the proximal phalanx as far up into the soft tissues as possible. The patient exhibited minimal discomfort. Hemostasis was accomplished with direct pressure. Sterile dressings were applied. The patient tolerated the procedure well.
--- NOTE | 2020-04-16 14:46 | PN ---
PROGRESS NOTE DATE OF SERVICE: 04/16/2020 REASON FOR FOLLOWUP: Right third toe MSSA diabetic foot infection with osteomyelitis. INTERVAL HISTORY: The patient is status post amputation of the right third toe. The patient is post surgery and lethargic. No vomiting, diarrhea or any other changes reported by nursing staff. Patient is unable to provide any history. PHYSICAL EXAMINATION: Blood pressure 91/59, pulse 95, temperature 98. She is 95% on 3 L nasal cannula. General description is a middle-aged female lying in bed in no distress. RESPIRATORY SYSTEM:: Unlabored breathing, coarse breath sounds bilaterally, no wheeze. HEART: S1, S2. Regular rate and rhythm. ABDOMEN: Soft, no tenderness. LABS: Hemoglobin 9.1, white count 10.2, BUN of 35, creatinine is 2.49. DIAGNOSTIC IMPRESSION AND PLAN: Patient right third toe diabetic foot infection, possible osteomyelitis. Culture with MSSA. The patient did have multiple antibiotic allergies and borderline kidney function high risk of nephrotoxicity. Currently covered with daptomycin to continue with a possible plan for hospice antibiotic will be safely discontinued once switched to hospice. Continue supportive care. MMODL / IJN: [id number] /
[2020-04-16 17:16] LABS: Glucose,Whole Blood 427 mg/dL (75-99)
--- NOTE | 2020-04-16 18:39 | P.PN ---
Subjective Progress Note Date: 04/16/20 Melva Jackson, is a 59-year-old female who presented to [facility] emergency room with a chief complaint of mental status changes with worsening somnolence and episodes of vomiting, she was evaluated in the emergency room, vital examination on presentation reveals a temperature of 97.9 pulse 85 respiration 18 blood pressure 174/74 pulse ox 93% on room air, white blood count was 10.1 hemoglobin 9.9 platelet count 196 sodium 136 BUN 21 creatinine 1.12 glucose 113 lactic acid 1.2 urine analysis revealed trace leukocyte esterase with moderate bacteria, chest x-ray revealed no acute pul monary process, computed tomography scan of the brain revealed no evidence of acute intracranial hemorrhage or midline shift there was a large area of old encephalomalacic of the right anterior cerebral hemisphere related to previous stroke. Patient was admitted to telemetry floor neurology consultation was requested due to concern of a recurrent stroke. Patient has a known history of insulin-dependent diabetes mellitus type 1 history of hypertension, history of hyperlipidemia, history of seizure disorder, history of asthma, and history of psychosis. On 04/07/2020 patient is alert and oriented resting in bed patient does appear restless. CT of abdomen and pelvis has been ordered due to nausea and vomiting. Hemoglobin 8.2. GI and neurology services are following. Patient denies any chest pain or shortness of breath. Does have appetite requesting food. on 04/08/2020 patient was seen and examined on the medical floor she is alert confused and occasionally agitated she received a dose of Haldol earlier today her hemoglobin is down and gastroenterology planning EGD and colonoscopy michelle further review of system was possible today. On 04/09/2020 agent was seen and examined on the medical floor she is alert, confused in no apparent distress, there is no fever or chills no headache or dizziness no chest pain no shortness of breath no cough no nausea or vomiting no abdominal pain no agitation today, patient underwent EGD today, she has AVM which was treated she will be given IV iron, sister Sera contacted and multiple medical issues discussed in details over the form. On 04/10/2020 patient is currently sleepy will wake up to follow commands but falls back to sleep clinic DC Haldol and continue to monitor for 24 hours possible discharge tomorrow On 04/11/2020 patient was seen and examined on the medical floor she was somnolent, she had low blood pressure she was given a fluid bolus, at this point Ativan and Xanax were discontinued Haldol was discontinued yesterday will continue was Seroquel only and order Ativan as needed if patient gets agitated patient improved significantly with IV fluid bolus blood pressure is back to normal range. On 04/12/2020 patient remains sleepy but per nursing staff has been up and awake. Patient did have elevated temperatures throughout night 100.7. Dr. Chapa has been consulted for wound on leg. Repeat urinary analysis has been ordered. Patient did have episode of hypotension this has resolved. Patient denies any chest pain or shortness breath. Patient denies nausea vomiting or diarrhea. Patient denies any urinary burning or frequency. On 04/13/2020 patient was seen and examined on the medical floor, she is somn olent, in no apparent distress at this time, her nurse reports that, patient slept well all night, however when she was awake she was screaming, she kept on screaming until she was tired and fell asleep again, patient is accepting her meals and her oral medications in some apple sauce with one on one help. I am unable to do any review of systems at this time. Ativan and Xanax and Haldol were discontinued due to continue was sleeping. At this time will give Seroquel 25 mg in the morning, 25 mg in the early afternoon, and 50 mg at bedtime. Her sister Sera who is the power of [place] attorney was contacted multiple times during this admission, CODE STATUS was discussed including possibility of hospice care, her sister stated that she will discuss that with patient's children and let us know their decision. On 04/14/2020 patient remains somnolent. Per nursing staff does wake up and screams. Per nursing still trying to make decision in regards to hospice. Awaiting callback from power of [employer] attorney kidneys after she talks to family patient is a no code. She remains on daptomycin Dr. Egan has been consulted per infectious disease recommendation for possible toe amputation. On 04/15/2020 patient was seen and examined on the medical floor she is somnolent but arousable in no distress, there is no fever or chills hemoglobin is down to 6.5 today 1 unit of red blood cell transfusion was ordered he was evaluated by Dr. Cadena and patient will need amputation of her toe, otherwise no significant change in condition since yesterday. On 04/16/2020 patient was seen and examined on the medical floor she is somnolent and arousable in no distress she was evaluated by Dr. Cadena and would have debridement of her foot ulcer, also Dr. Cadena contacted her sister Sera with the power of united states attorney and at this point, family is agreeable with hospice, otherwise no change in condition since yesterday, there is erythema around the midline in the right upper extremity and this will be discontinued, plan is to transfer to home with hospice tomorrow. Objective - Vital Signs Vital signs: Vital Signs Temp 97.1 F L 04/16/20 15:00 Pulse 90 04/16/20 15:00 Resp 20 04/16/20 15:00 BP 128/95 04/16/20 15:00 Pulse Ox 98 04/16/20 15:00 Intake & Output 04/15/20 04/16/20 04/16/20 18:59 06:59 18:59 Intake Total 310 150 100 Balance 310 150 100 Intake: Intake, IV Titration 150 Amount Sodium Chloride 0.9% 1, 150 000 ml @ 75 mls/hr IV . [id number] [facility] Rx#:[id number] Oral 100 Blood Product 310 Rc As-1 Unit 310 [id number] Other: Voiding Method Diaper Diaper # Voids 1 1 2 - Exam In general patient is alert, responsive, in no distress HEENT head normocephalic and atraumatic Neck is supple no JVD no goiter no lymphadenopathy Chest exam reveals a few scattered crackles no wheezing Cardiac exam reveals regular heart sounds no gallops no murmurs Abdomen is soft nontender no organomegaly was normal bowel sounds Extremity exam reveals no edema no cyanosis or clubbing Neurological examination patient is alert responsive answering questions appropriately she is moving all 4 extremity spontaneously there is residual spasticity and weakness on the left upper extremity in the left lower extremity - Labs CBC & Chem 7: 04/16/20 07:28 04/16/20 07:28 Labs: Abnormal Lab Results - Last 24 Hours (Table) 04/15/20 04/15/20 04/16/20 Range/Units 10:12 20:39 06:58 RBC (3.80-5.40) m/uL Hgb (11.4-16.0) gm/dL Hct (34.0-46.0) % MCV (80.0-100.0) fL RDW (11.5-15.5) % Neutrophils # (1.3-7.7) k/uL Potassium (3.5-5.1) mmol/L Chloride (98-107) mmol/L Carbon Dioxide (22-30) mmol/L BUN (7-17) mg/dL Creatinine (0.52-1.04) mg/dL Glucose (74-99) mg/dL POC Glucose (mg/dL) 227 H 361 H (75-99) mg/dL Albumin (3.5-5.0) g/dL Crossmatch See Detail 04/16/20 04/16/20 04/16/20 Range/Units 07:28 07:28 11:58 RBC 3.08 L (3.80-5.40) m/uL Hgb 9.9 L D (11.4-16.0) gm/dL Hct 31.9 L (34.0-46.0) % MCV 103.4 H (80.0-100.0) fL RDW 16.1 H (11.5-15.5) % Neutrophils # 8.3 H (1.3-7.7) k/uL Potassium 5.4 H (3.5-5.1) mmol/L Chloride 118 H (98-107) mmol/L Carbon Dioxide 19 L (22-30) mmol/L BUN 35 H (7-17) mg/dL Creatinine 2.49 H (0.52-1.04) mg/dL Glucose 366 H (74-99) mg/dL POC Glucose (mg/dL) 475 H (75-99) mg/dL Albumin 2.7 L (3.5-5.0) g/dL Crossmatch 04/16/20 Range/Units 17:12 RBC (3.80-5.40) m/uL Hgb (11.4-16.0) gm/dL Hct (34.0-46.0) % MCV (80.0-100.0) fL RDW (11.5-15.5) % Neutrophils # (1.3-7.7) k/uL Potassium (3.5-5.1) mmol/L Chloride (98-107) mmol/L Carbon Dioxide (22-30) mmol/L BUN (7-17) mg/dL Creatinine (0.52-1.04) mg/dL Glucose (74-99) mg/dL POC Glucose (mg/dL) 427 H (75-99) mg/dL Albumin (3.5-5.0) g/dL Crossmatch Assessment and Plan Plan: 1. Mental status changes likely related to recurrent seizure activity due to missing antiseizure medications due to vomiting. Resolved 2. Previous history of stroke in 2014, no evidence of stroke at this time. 3. Underlying history of insulin-dependent diabetes mellitus, type I maintained on insulin, with previous multiple admissions with DKA 4. Underlying history of gastroparesis, maintained on Reglan 5. History of psychosis maintained on Seroquel 6. Underlying history of hypertension 7. Underlying history of hyperlipidemia 8. Previous history of coronary artery disease with myocardial infarction in the past 9. Anemia was significant hemoglobin drop since yesterday. Patient remains on IV iron 10. Febrile. Urinary analysis ordered. Dr. Chapa consulted 11. Diabetic ulcer to right third toe. Patient remains on daptomycin possible concerns resting mellitus. Dr. Sen has been consulted for possible amputation 12. Hypotension. Patient did receive fluids has resolved Neurology and infectious disease services are following DPOA is in discussion with family about possible hospice Dr. Egan has been consulted due to toe infection and possible requiring amputation
[2020-04-16] MEDS ORDERED: ATROPINE OPHTH SOLN 1% 5ML BTL SUBLINGUAL PRN (19:24)
[2020-04-16] MEDS ORDERED: SCOPOLAMINE 1.5MG/72HR PATCH TRANSDERM STA (19:27)
[2020-04-16 20:38] LABS: Glucose,Whole Blood 320 mg/dL (75-99)
[2020-04-16] MEDS ORDERED: DAPTOmycin 350 MG in SODIUM CHLORIDE 0.9% 50 ML IVPB SCH (21:00)
[2020-04-16] MEDS: QUEtiapine 50 MG TAB PO SCH (21:15)
[2020-04-17] MEDS: INSULIN ASPART (NovoLOG) 100 UNIT/ML VIAL SQ SCH ×2 (06:38→07:01)
[2020-04-17 06:54] LABS: Glucose,Whole Blood 481 mg/dL (75-99)
[2020-04-17] MEDS ORDERED: fentaNYL (PF) 50 MCG/ML 2 ML AMP IV PRN (07:14)
[2020-04-17] MEDS ORDERED: LACTATED RINGERS 1,000 ML IV SCH (07:14)
[2020-04-17 07:18] VITALS: BP 183/81; PULSE 113; RESP 16
[2020-04-17] MEDS: SODIUM CHLORIDE 0.9% 1,000 ML IV SCH (09:07)
[2020-04-17] MEDS: CALCIUM CARB-VIT D 500MG-200UN 1 EACH TAB PO SCH (09:07)
[2020-04-17] MEDS: LOSARTAN 50 MG TAB PO SCH (09:08)
[2020-04-17] MEDS: DULoxetine HCL 30 MG CAPSULE.DR PO SCH (09:08)
[2020-04-17] MEDS: ASCORBIC ACID 500 MG TAB PO SCH (09:08)
[2020-04-17] MEDS: METOCLOPRAMIDE 5 MG TAB PO SCH (09:08)
[2020-04-17] MEDS: PANTOPRAZOLE 40 MG TABLET PO SCH (09:08)
[2020-04-17] MEDS: SODIUM FERRIC GLUCONAT-SUCROSE 125 MG in SODIUM CHLORIDE 0.9% 100 ML IVPB SCH (09:08)
[2020-04-17] MEDS: METOPROLOL TARTRATE 12.5 MG TAB PO SCH (09:08)
[2020-04-17] MEDS: DIVALPROEX 250 MG TABLET.DR PO SCH (09:08)
[2020-04-17] MEDS: ASPIRIN 81 MG PO SCH (09:08)
[2020-04-17] MEDS: LACOSAMIDE 150 MG TABLET PO SCH (09:08)
[2020-04-17] MEDS: QUEtiapine 25 MG TAB PO SCH (09:08)
[2020-04-17 09:34] VITALS: TEMP 101.3
[2020-04-17 11:45] LABS: Glucose,Whole Blood 395 mg/dL (75-99)
== END 2020-04-17 11:15 | disposition hospice, inpatient (51) | DRG 41 ==
LOC: EC 10:37 → 4SSUR 13:08 → OBSVTOIN 04-06 11:32
PROVIDERS: ADMIT Internal Medicine; ATTEND Internal Medicine
PROC: 0DB78ZX Excision of Stomach, Pylorus, Via Natural or Artificial Opening Endoscopic, Diagnostic (ICD-10-PCS; 2020-04-09 12:45)
PROC: 0DB98ZX Excision of Duodenum, Via Natural or Artificial Opening Endoscopic, Diagnostic (ICD-10-PCS; 2020-04-09 12:45)
PROC: 0D598ZZ Destruction of Duodenum, Via Natural or Artificial Opening Endoscopic (ICD-10-PCS; 2020-04-09 12:45)
PROC: 30233N1 Transfusion of Nonautologous Red Blood Cells into Peripheral Vein, Percutaneous Approach (ICD-10-PCS; 2020-04-15)
PROC: 0Y6T0Z0 Detachment at Right 3rd Toe, Complete, Open Approach (ICD-10-PCS; principal; 2020-04-16)
PROC: 05HF33Z Insertion of Infusion Device into Left Cephalic Vein, Percutaneous Approach (ICD-10-PCS; 2020-04-17)
DX: G40.909 Epilepsy, unspecified, not intractable, without status epilepticus (principal); E10.52 Type 1 diabetes mellitus with diabetic peripheral angiopathy with gangrene; I69.354 Hemiplegia and hemiparesis following cerebral infarction affecting left non-dominant side; M86.8X7 Other osteomyelitis, ankle and foot; N13.30 Unspecified hydronephrosis; E10.69 Type 1 diabetes mellitus with other specified complication; E10.319 Type 1 diabetes mellitus with unspecified diabetic retinopathy without macular edema; E10.43 Type 1 diabetes mellitus with diabetic autonomic (poly)neuropathy; E10.40 Type 1 diabetes mellitus with diabetic neuropathy, unspecified; E10.621 Type 1 diabetes mellitus with foot ulcer; I95.9 Hypotension, unspecified; K31.84 Gastroparesis; L97.519 Non-pressure chronic ulcer of other part of right foot with unspecified severity; I11.0 Hypertensive heart disease with heart failure; I50.9 Heart failure, unspecified; G93.89 Other specified disorders of brain; Z79.4 Long term (current) use of insulin; J44.9 Chronic obstructive pulmonary disease, unspecified; Z89.411 Acquired absence of right great toe; Z89.421 Acquired absence of other right toe(s); F31.9 Bipolar disorder, unspecified; B95.61 Methicillin susceptible Staphylococcus aureus infection as the cause of diseases classified elsewhere; I65.21 Occlusion and stenosis of right carotid artery; F41.9 Anxiety disorder, unspecified; I69.319 Unspecified symptoms and signs involving cognitive functions following cerebral infarction; I69.392 Facial weakness following cerebral infarction; K31.819 Angiodysplasia of stomach and duodenum without bleeding; K29.70 Gastritis, unspecified, without bleeding; K21.9 Gastro-esophageal reflux disease without esophagitis; E78.5 Hyperlipidemia, unspecified; M19.90 Unspecified osteoarthritis, unspecified site; I25.2 Old myocardial infarction; I25.10 Atherosclerotic heart disease of native coronary artery without angina pectoris; E03.9 Hypothyroidism, unspecified; D50.9 Iron deficiency anemia, unspecified; K59.00 Constipation, unspecified; M54.5 Low back pain; I83.90 Asymptomatic varicose veins of unspecified lower extremity; H93.13 Tinnitus, bilateral; M62.422 Contracture of muscle, left upper arm; Z79.02 Long term (current) use of antithrombotics/antiplatelets; Z79.82 Long term (current) use of aspirin; Z79.899 Other long term (current) drug therapy; Z87.891 Personal history of nicotine dependence; Z86.718 Personal history of other venous thrombosis and embolism; Z87.01 Personal history of pneumonia (recurrent); Z86.14 Personal history of Methicillin resistant Staphylococcus aureus infection; Z90.49 Acquired absence of other specified parts of digestive tract; Z87.19 Personal history of other diseases of the digestive system; Z98.891 History of uterine scar from previous surgery; Z95.5 Presence of coronary angioplasty implant and graft; Z90.710 Acquired absence of both cervix and uterus; Z87.42 Personal history of other diseases of the female genital tract; Z87.39 Personal history of other diseases of the musculoskeletal system and connective tissue; Z98.42 Cataract extraction status, left eye; Z98.41 Cataract extraction status, right eye; Z96.1 Presence of intraocular lens; Z98.890 Other specified postprocedural states; Z88.5 Allergy status to narcotic agent; Z88.0 Allergy status to penicillin; Z88.8 Allergy status to other drugs, medicaments and biological substances; Z88.1 Allergy status to other antibiotic agents; Z91.030 Bee allergy status; Z82.49 Family history of ischemic heart disease and other diseases of the circulatory system; Z83.3 Family history of diabetes mellitus; Z82.5 Family history of asthma and other chronic lower respiratory diseases
CPT/HCPCS: 36410; 36415; 36600; 43239; 43255; 70450; 71045; 74177; 76937; 80048; 80053; 80164; 80165; 81001; 82009; 82272; 82805; 83605; 83735; 84484; 85025; 85027; 85610; 85652; 85730; 86140; 86850; 86900; 86901; 86920; 87040; 87070; 87075; 87077; 87186; 87205; 88305; 93005; 94640; 96360; 96361; 99285

== ENCOUNTER 2020-04-17 11:00 | Inpatient (IN) | payer MEDICAID ==
[2020-04-17] MEDS ORDERED: ATROPINE OPHTH SOLN 1% 5ML BTL SUBLINGUAL PRN (11:05)
[2020-04-17] MEDS ORDERED: LORazepam 2 MG/ML INJ IV PRN (11:05)
[2020-04-17] MEDS ORDERED: ACETAMINOPHEN SUPPOSITORY 650 MG SUPP RECTAL PRN (11:05)
[2020-04-17] MEDS ORDERED: HYDROmorphone 0.5 MG/0.5 ML SYRINGE IVP PRN (11:08)
[2020-04-17] MEDS: HYDROmorphone 1 MG/ML 1 ML SYRINGE IVP PRN ×3 (11:42→21:37)
[2020-04-17 16:55] LABS: Glucose,Whole Blood 507 mg/dL (75-99)
[2020-04-17] MEDS: INSULIN ASPART (NovoLOG) 100 UNIT/ML VIAL SQ SCH ×2 (17:12→20:50)
[2020-04-17 20:36] LABS: Glucose,Whole Blood 430 mg/dL (75-99)
[2020-04-18 02:17] VITALS: BP 157/69; PULSE 91; RESP 20; TEMP 98.5
[2020-04-18] MEDS: HYDROmorphone 1 MG/ML 1 ML SYRINGE IVP PRN ×3 (03:24→15:52)
[2020-04-18 06:55] LABS: Glucose,Whole Blood 411 mg/dL (75-99)
[2020-04-18] MEDS: INSULIN ASPART (NovoLOG) 100 UNIT/ML VIAL SQ SCH ×4 (08:04→22:41)
[2020-04-18 11:23] LABS: Glucose,Whole Blood 300 mg/dL (75-99)
[2020-04-18 16:34] LABS: Glucose,Whole Blood 308 mg/dL (75-99)
--- NOTE | 2020-04-18 17:55 | P.HPIM ---
History of Present Illness H&P Date: 04/17/20 Melva Jackson is a 59-year-old female who had several recent admissions due to uncontrolled glucose level, episodes of hypoglycemia, recurrent seizure activity, and lower extremity infection. Patient developed worsening encephalopathy likely due to recurrent seizures, condition discussed with her sister Sera who is the power of tax associate attorney, several times over the last 2 admissions, yesterday patient's sister Sera spoke was Dr. Cadena and decided to proceed with hospice care. Past Medical History Past Medical History: Asthma, Coronary Artery Disease (CAD), Chest Pain / Angina, Heart Failure, COPD, CVA/TIA, Diabetes Mellitus, Deep Vein Thrombosis ( DVT), Eye Disorder, GERD/Reflux, Hyperlipidemia, Hypertension, Myocardial Infarction (ME), Neurologic Disorder, Osteoarthritis (OA), Pneumonia, Renal Disease Additional Past Medical History / Comment(s): IDDM (brittle), DKAs, neuropathy bilateral hands/feet, retinopathy bilateral eyes, cellulitis R foot, R great toe and 2nd toe infections/amputations, current wound R foot-being seen in [facility], renal failure, anemia, CVAs with L sided paralysis, headaches started after CVAs, brain lesions, DVT R axillae, low back pain, varicosities, seizure many years ago (2001), hypothyroid, constipation, bilateral tinnitis occasionally, sinus problems. Last Myocardial Infarction Date:: 2011 History of Any Multi-Drug Resistant Organisms: MRSA Date of last positivie culture/infection: 09/06/17 MDRO Source:: Right Foot Past Surgical History: Appendectomy, Section, Cholecystectomy, Heart Catheterization With Stent, Hysterectomy, Orthopedic Surgery Additional Past Surgical History / Comment(s): PCI with multiple stents, R great toe and 2nd toe amps, debridements R foot ulcer, L shoulder surgery to remove bone, bronchoscopy, EGD, colonoscopy, R arm port since removed, bilateral cataract removals/lens implants. Past Anesthesia/Blood Transfusion Reactions: No Reported Reaction Additional Past Anesthesia/Blood Transfusion Reaction / Comment(s): HX OF BLOOD TRANSFUSION- NO REACTION Date of Last Stent Placement:: July 2012 Past Psychological History: Anxiety, Bipolar, Depression Smoking Status: Never smoker Past Alcohol Use History: None Reported Past Drug Use History: Marijuana - Past Family History Father Family Medical History: Unable to Obtain, Coronary Artery Disease (CAD), Diabetes Mellitus Mother Family Medical History: COPD Medications and Allergies Home Medications Medication Instructions Recorded Confirmed Type HYDROcodone/APAP 10-325MG [[place] 1 tab PO TID PRN 10/03/16 04/17/20 History 10-325] Atorvastatin [Lipitor] 20 mg PO DAILY 12/28/18 04/17/20 History Aspirin [Adult Low Dose Aspirin EC] 81 mg PO DAILY 06/09/19 04/17/20 History Ferrous Sulfate [Iron (65 MG 325 mg PO BID 06/09/19 04/17/20 History Elemental)] Divalproex [Depakote] 250 mg PO TID #90 tablet. 08/17/19 04/17/20 Rx Albuterol Sulfate [Ventolin HFA] 2 puff INHALATION RT-Q4H PRN 12/26/19 04/17/20 History Losartan [Cozaar] 50 mg PO DAILY tab 01/18/20 04/17/20 Rx Ascorbic Acid [Vitamin C] 500 mg PO DAILY 01/29/20 04/17/20 History Vitamin B Complex 1 tab PO DAILY 01/29/20 04/17/20 History Clopidogrel [Plavix] 75 mg PO DAILY tab 02/02/20 04/17/20 Rx QUEtiapine [SEROquel] 50 mg PO HS 30 Days #30 tab 03/13/20 04/17/20 Rx ALPRAZolam [Xanax] 0.5 mg PO QID PRN tab 03/26/20 04/17/20 Rx DULoxetine HCL [Cymbalta] 30 mg PO DAILY capsule. 03/26/20 04/17/20 Rx Metoclopramide [Reglan] 5 mg PO AC-TID tab 03/26/20 04/17/20 Rx QUEtiapine [SEROquel] 25 mg PO DAILY tab 03/26/20 04/17/20 Rx Calcium Carb-Vit D 500Mg-200Un 1 tab PO BID-W/MEALS 03/31/20 04/17/20 History [Oscal 500+D] INSULIN LISPRO (humaLOG) [humaLOG] 6 units SQ AC-TID 03/31/20 04/17/20 History Ondansetron Odt [Zofran ODT] 4 mg PO Q8HR PRN 3 Days #9 tab 03/31/20 04/17/20 Rx Insulin Detemir [Levemir Flextouch] 10 units SQ HS 04/05/20 04/17/20 History Lacosamide [Vimpat] 100 mg PO BID 04/05/20 04/17/20 History Metoprolol Tartrate [Lopressor] 12.5 mg PO BID 04/05/20 04/17/20 History Pantoprazole Sodium [Protonix] 40 mg PO BID 30 Days #60 tablet. 04/10/20 04/17/20 Rx Allergies Allergy/AdvReac Type Severity Reaction Status Date / Time Barbiturates Allergy Rash/Hives Verified 04/17/20 13:53 cephalexin monohydrate Allergy Rash/Hives Verified 04/17/20 13:53 [From Keflex] morphine Allergy Rash/Hives Verified 04/17/20 13:53 Penicillins Allergy Rash/Hives Verified 04/17/20 13:53 phenobarbital Allergy Swelling Verified 04/17/20 13:53 venom-honey bee Allergy Swelling Verified 04/17/20 13:53 [bee venom (honey bee)] amlodipine besylate AdvReac Vomiting Verified 04/17/20 13:53 [From Norvasc] Physical Exam Vitals: Vital Signs Temp Pulse Resp BP Pulse Ox 04/17/20 14:40 99.3 F 94 18 161/75 95 Intake and Output 04/17/20 04/17/20 04/17/20 06:59 14:59 22:59 Other: Weight 58.967 kg Patient is sedated responsive to stimuli in no apparent distress HEENT head normocephalic and atraumatic Neck is supple no JVD no goiter no lymphadenopathy Chest exam reveals a few scattered crackles no wheezing Cardiac exam reveals regular heart sounds no murmurs Abdomen is soft nontender no organomegaly with normal bowel sounds Extremity exam reveals minimal edema with recent toe debridement Assessment and Plan Plan: 1. Severe encephalopathy 2. Underlying history of stroke 3. Underlying history of diabetes mellitus type 1 maintained on insulin, not well controlled 4. Underlying history of hypertension 5. Prolonged previous history of smoking. At this time patient will start with inpatient hospice Arrangement will be made for her to be transferred back to her home to continue hospice care at home.
--- NOTE | 2020-04-18 17:57 | P.PN ---
Subjective Progress Note Date: 04/18/20 Melva Jackson is a 59-year-old female who had several recent admissions due to uncontrolled glucose level, episodes of hypoglycemia, recurrent seizure activity, and lower extremity infection. Patient developed worsening encephalopathy likely due to recurrent seizures, condition discussed with her sister Sera who is the power of book editor, several times over the last 2 admissions, yesterday patient's sister Sera spoke was Dr. Cadena and decided to proceed with hospice care. On 04/18/2020 patient was seen and examined on the medical floor she is somnolent responsive to stimuli in no apparent distress, at this time she was started on hospice care, arrangements are being made at home for possible transfer to home with hospice tomorrow Objective - Vital Signs Vital signs: Vital Signs Temp 98.5 F 04/18/20 00:40 Pulse 91 04/18/20 08:00 Resp 20 04/18/20 00:40 BP 157/69 04/18/20 00:40 Pulse Ox 96 04/18/20 00:40 Intake & Output 04/17/20 04/18/20 04/18/20 18:59 06:59 18:59 Intake Total 0 Balance 0 Weight 58.967 kg Intake: Oral 0 Other: Voiding Method Diaper Diaper # Voids 1 - Exam Patient is sedated responsive to stimuli in no apparent distress HEENT head normocephalic and atraumatic Neck is supple no JVD no goiter no lymphadenopathy Chest exam reveals a few scattered crackles no wheezing Cardiac exam reveals regular heart sounds no murmurs Abdomen is soft nontender no organomegaly with normal bowel sounds Extremity exam reveals minimal edema with recent toe debridement - Labs Labs: Abnormal Lab Results - Last 24 Hours (Table) 04/17/20 04/18/20 04/18/20 Range/Units 20:22 06:52 11:21 POC Glucose (mg/dL) 430 H 411 H 300 H (75-99) mg/dL 04/18/20 Range/Units 16:32 POC Glucose (mg/dL) 308 H (75-99) mg/dL Assessment and Plan Plan: 1. Severe encephalopathy 2. Underlying history of stroke 3. Underlying history of diabetes mellitus type 1 maintained on insulin, not well controlled 4. Underlying history of hypertension 5. Prolonged previous history of smoking. At this time patient will start with inpatient hospice Arrangement will be made for her to be transferred back to her home to continue hospice care at home.
[2020-04-18 21:29] LABS: Glucose,Whole Blood 251 mg/dL (75-99)
[2020-04-19 07:09] LABS: Glucose,Whole Blood 318 mg/dL (75-99)
[2020-04-19] MEDS: INSULIN ASPART (NovoLOG) 100 UNIT/ML VIAL SQ SCH (07:45)
[2020-04-19 11:26] LABS: Glucose,Whole Blood 267 mg/dL (75-99)
--- NOTE | 2020-04-19 13:09 | P.DS ---
Providers Date of admission: 04/17/20 11:18 Expected date of discharge: 04/19/20 Attending physician: Sherlyn Chen Primary care physician: Sherlyn Chen [facility] Course: Diagnoses on discharge: 1. Severe encephalopathy 2. Underlying history of stroke 3. Underlying history of diabetes mellitus type 1 maintained on insulin, not well controlled 4. Underlying history of hypertension 5. Prolonged previous history of smoking. 6. Underlying history of seizure disorder Hospital Course: Melva Jackson is a 59-year-old female who had several recent admissions due to uncontrolled glucose level, episodes of hypoglycemia, recurrent seizure activity, and lower extremity infection. Patient developed worsening encephalopathy likely due to recurrent seizures, condition discussed with her sister Sera who is the power of civil attorney, several times over the last 2 admissions, yesterday patient's sister Sera spoke was Dr. Cadena and decided to proceed with hospice care. On 04/18/2020 patient was seen and examined on the medical floor she is somnolent responsive to stimuli in no apparent distress, at this time she was started on hospice care, arrangements are being made at home for possible transfer to home with hospice tomorrow. On 04/19/2020 patient was seen and examined on the medical floor she is somnolent arousable in no apparent distress there is no fever or chills no headache or dizziness no chest pain no shortness of breath no cough no nausea or vomiting no abdominal pain no diarrhea and no urinary symptoms she will be transferred home today to continue with hospice care at home Plan - Discharge Summary New Discharge Prescriptions: No Action HYDROcodone/APAP 10-325MG [[place] 10-325] 1 tab PO TID PRN PRN Reason: Pain Atorvastatin [Lipitor] 20 mg PO DAILY Aspirin [Adult Low Dose Aspirin EC] 81 mg PO DAILY Ferrous Sulfate [Iron (65 MG Elemental)] 325 mg PO BID Divalproex [Depakote] 250 mg PO TID #90 tablet. Albuterol Sulfate [Ventolin HFA] 2 puff INHALATION RT-Q4H PRN PRN Reason: Shortness Of Breath Losartan [Cozaar] 50 mg PO DAILY tab Ascorbic Acid [Vitamin C] 500 mg PO DAILY Vitamin B Complex 1 tab PO DAILY Clopidogrel [Plavix] 75 mg PO DAILY tab QUEtiapine [SEROquel] 50 mg PO HS 30 Days #30 tab DULoxetine HCL [Cymbalta] 30 mg PO DAILY capsule. Metoclopramide [Reglan] 5 mg PO AC-TID tab QUEtiapine [SEROquel] 25 mg PO DAILY tab ALPRAZolam [Xanax] 0.5 mg PO QID PRN tab PRN Reason: Anxiety Calcium Carb-Vit D 500Mg-200Un [[place] 500+D] 1 tab PO BID-W/MEALS INSULIN LISPRO (humaLOG) [humaLOG] 6 units SQ AC-TID Ondansetron Odt [Zofran ODT] 4 mg PO Q8HR PRN 3 Days #9 tab PRN Reason: Nausea Lacosamide [Vimpat] 100 mg PO BID Metoprolol Tartrate [Lopressor] 12.5 mg PO BID Insulin Detemir [Levemir Flextouch] 10 units SQ HS Pantoprazole Sodium [Protonix] 40 mg PO BID 30 Days #60 tablet. Discharge Medication List HYDROcodone/APAP 10-325MG [[place] 10-325] 1 tab PO TID PRN 10/03/16 [History] Atorvastatin [Lipitor] 20 mg PO DAILY 12/28/18 [History] Aspirin [Adult Low Dose Aspirin EC] 81 mg PO DAILY 06/09/19 [History] Ferrous Sulfate [Iron (65 MG Elemental)] 325 mg PO BID 06/09/19 [History] Divalproex [Depakote] 250 mg PO TID #90 tablet. 08/17/19 [Rx] Albuterol Sulfate [Ventolin HFA] 2 puff INHALATION RT-Q4H PRN 12/26/19 [History] Losartan [Cozaar] 50 mg PO DAILY tab 01/18/20 [Rx] Ascorbic Acid [Vitamin C] 500 mg PO DAILY 01/29/20 [History] Vitamin B Complex 1 tab PO DAILY 01/29/20 [History] Clopidogrel [Plavix] 75 mg PO DAILY tab 02/02/20 [Rx] QUEtiapine [SEROquel] 50 mg PO HS 30 Days #30 tab 03/13/20 [Rx] ALPRAZolam [Xanax] 0.5 mg PO QID PRN tab 03/26/20 [Rx] DULoxetine HCL [Cymbalta] 30 mg PO DAILY capsule. 03/26/20 [Rx] Metoclopramide [Reglan] 5 mg PO AC-TID tab 03/26/20 [Rx] QUEtiapine [SEROquel] 25 mg PO DAILY tab 03/26/20 [Rx] Calcium Carb-Vit D 500Mg-200Un [[place] 500+D] 1 tab PO BID-W/MEALS 03/31/20 [History] INSULIN LISPRO (humaLOG) [humaLOG] 6 units SQ AC-TID 03/31/20 [History] Ondansetron Odt [Zofran ODT] 4 mg PO Q8HR PRN 3 Days #9 tab 03/31/20 [Rx] Insulin Detemir [Levemir Flextouch] 10 units SQ HS 04/05/20 [History] Lacosamide [Vimpat] 100 mg PO BID 04/05/20 [History] Metoprolol Tartrate [Lopressor] 12.5 mg PO BID 04/05/20 [History] Pantoprazole Sodium [Protonix] 40 mg PO BID 30 Days #60 tablet. 04/10/20 [Rx] Discharge Disposition: HOME WITH HOSPICE
== END 2020-04-19 11:50 | disposition hospice, home (50) | DRG 951 ==
LOC: 4SSUR 11:18
PROVIDERS: ADMIT Internal Medicine; ATTEND Internal Medicine
DX: Z51.5 Encounter for palliative care (principal); G93.40 Encephalopathy, unspecified; G81.94 Hemiplegia, unspecified affecting left nondominant side; J44.9 Chronic obstructive pulmonary disease, unspecified; I50.9 Heart failure, unspecified; I25.10 Atherosclerotic heart disease of native coronary artery without angina pectoris; I11.0 Hypertensive heart disease with heart failure; K21.9 Gastro-esophageal reflux disease without esophagitis; M19.90 Unspecified osteoarthritis, unspecified site; F41.9 Anxiety disorder, unspecified; F31.9 Bipolar disorder, unspecified; E78.5 Hyperlipidemia, unspecified; E10.319 Type 1 diabetes mellitus with unspecified diabetic retinopathy without macular edema; E03.9 Hypothyroidism, unspecified; G40.909 Epilepsy, unspecified, not intractable, without status epilepticus; Z96.1 Presence of intraocular lens; I25.2 Old myocardial infarction; Z79.02 Long term (current) use of antithrombotics/antiplatelets; Z79.4 Long term (current) use of insulin; Z79.82 Long term (current) use of aspirin; Z79.899 Other long term (current) drug therapy; Z82.49 Family history of ischemic heart disease and other diseases of the circulatory system; Z82.5 Family history of asthma and other chronic lower respiratory diseases; Z83.3 Family history of diabetes mellitus; Z86.718 Personal history of other venous thrombosis and embolism; Z90.710 Acquired absence of both cervix and uterus; Z87.891 Personal history of nicotine dependence; Z87.01 Personal history of pneumonia (recurrent); Z86.14 Personal history of Methicillin resistant Staphylococcus aureus infection; Z98.891 History of uterine scar from previous surgery; Z98.890 Other specified postprocedural states; Z90.49 Acquired absence of other specified parts of digestive tract; Z90.89 Acquired absence of other organs; Z95.5 Presence of coronary angioplasty implant and graft; Z88.5 Allergy status to narcotic agent; Z88.0 Allergy status to penicillin; Z88.8 Allergy status to other drugs, medicaments and biological substances; Z88.1 Allergy status to other antibiotic agents; Z91.030 Bee allergy status